=== PATIENT | female | born 1975 | race Caucasian/White ===

== ENCOUNTER 2018-05-04 07:16 | Observation (INO) | payer OTHER, SELFPAY ==
--- OUTSIDE RECORDS SUMMARY | 2018-05-04 07:19 | XMS REPORT | Clinical Summary ---
:1975 Author Organization [facility] Address [address] [place] [address] Care Team Providers Name Role Phone Higinio Meza MD Primary Care Provider Allergies Active Allergy Reactions Severity Noted Date Comments Zolpidem Other (See Comments) High 05/25/2016 INSOMNIA, ANXIETY Cephalosporins 03/16/2017 Codeine Other (See Comments) High 05/25/2016 CARDIAC ARREST Meperidine Other (See Comments) High 05/25/2016 CARDIAC ARREST Esomeprazole Magnesium Nausea And Vomiting High 10/09/2016 CARDIAC ARREST Meperidine Hcl GI Intolerance 03/09/2010 Morphine Other (See Comments) High 05/25/2016 CARDIAC ARREST EFFECT Esomeprazole Magnesium Other (See Comments) High 05/25/2016 CARDIAC ARREST Ondansetron Other (See Comments) 08/12/2017 Bradycardia and low heart rate Current Medications Prescription Sig. Disp. Refills Start End Status Date Date folic acid Take 1 mg by Active (FOLVITE) 1 MG mouth daily. tablet dextromethorphan-g Take 1 tablet by Active uaifenesin mouth 2 (two) (MUCINEX DM times a day. REGULAR) 30-600 mg tablet extended release 12 hr ergocalciferol Take 8,000 Units Active (DRISDOL) 8,000 by mouth daily. unit/mL drops methotrexate 25 INJ 1 ML ONCE A 0 Active mg/mL syringe WEEK 7 ergocalciferol Take 1 capsule 12 capsule 3 Active (VITAMIN D2) (50,000 Units 7 018 50,000 unit total) by mouth capsule once a week. lidocaine HCl 5 mL by mucous 100 mL 3 Active (lidocaine) 2 % membrane route 7 solution every 3 (three) hours. methotrexate PF 25 once a week. Active mg/mL chemo syringe celecoxib TK 1 C PO BID 3 Active (CeleBREX) 200 MG 7 capsule fluocinonide Apply topically 30 g 2 Active (LIDEX) 0.05 % 2 (two) times a 8 ointment day as needed (rash or itching). diazePAM (VALIUM) Take 1 tablet 30 tablet 5 Active 10 MG (10 mg total) by 8 018 tabletIndications: mouth nightly as Muscle spasm needed (stress, sleep, anxiety) for up to 180 days. tiZANidine 1/2 - 1 tab po 90 tablet 1 Active (ZANAFLEX) 4 MG nightly prn 8 tabletIndications: muscle spasms Muscle spasms of both lower extremities spironolactone Take 1 tablet 90 tablet 3 Active (ALDACTONE) 25 MG (25 mg total) by 8 tabletIndications: mouth daily. Fluid retention promethazine 50 mg q 8 hours 270 tablet 1 Active (PHENERGAN) 50 MG prn 8 tabletIndications: nausea/vomiting Non-intractable vomiting with nausea, unspecified vomiting type HYDROcodone-acetam Take 1 tablet by 120 tablet 0 Active inophen (NORCO) mouth every 6 8 10-325 mg per (six) hours as tabletIndications: needed for Scleroderma, Other moderate pain chronic pain, for up to 90 Generalized days. Max Daily abdominal pain Amount: 4 tablets furosemide (LASIX) Take 1 tablet 90 tablet 1 Active 20 mg (20 mg total) by 8 tabletIndications: mouth daily as Fluid retention needed (swelling). topiramate 1/2 tablet in 135 tablet 3 Active (TOPAMAX) 100 MG the morning and 8 tabletIndications: 1 tablet in the Intractable evening for chronic migraine headaches without aura and without status migrainosus hyoscyamine DISSOLVE 1 30 tablet 0 Active (LEVSIN) 0.125 mg TABLET(0.125 MG) 8 SL tablet UNDER THE TONGUE EVERY 4 HOURS NEEDED FOR CRAMPING OR DIARRHEA cholecalciferol, Take 1 capsule 12 capsule 3 Active vitamin D3, 50,000 (50,000 Units 8 019 unit capsule total) by mouth once a week. amphetamine-dextro TK ONE C PO QAM 0 Active amphetamine XR 8 (ADDERALL XR) 20 MG 24 hr capsule amLODIPine Take 1 tablet (5 90 tablet 1 Active (NORVASC) 5 mg mg total) by 8 019 tablet mouth daily. For blood pressure cyanocobalamin ADMINISTER 1 10 mL 0 Active 1,000 mcg/mL ML(1000 MCG) 8 injection UNDER THE SKIN EVERY 7 DAYS ULTRA COMFORT USE DIRECTED 30 each 0 Active INSULIN SYRINGE 1 ONCE WEEKLY 8 mL 28 gauge x 1/2" syringe amLODIPine TK 1 T PO ONCE D 1 Discontinued (NORVASC) 10 MG UTD 6 017 tablet tamsulosin TK 1 C PO D 3 Discontinued (FLOMAX) 0.4 mg 6 017 capsule,extended release 24hr topiramate Take 1 tablet 180 tablet 3 Discontinued (TOPAMAX) 100 MG (100 mg total) 6 017 tablet by mouth 2 (two) times a day. triamcinolone Apply topically 30 g 1 (KENALOG) 0.1 % 3 (three) times 6 017 ointment a day. Prn rash or itching sulfamethoxazole-t Take 1 tablet by Discontinued rimethoprim mouth 2 (two) 017 (BACTRIM DS) times a day. 800-160 mg per tablet insulin Use as directed 30 each 3 Discontinued syringe-needle with 6 018 U-100 (INSULIN methotrexate SYRINGE) 1 mL 28 once weekly gauge x 1/2" syringe ergocalciferol Take 1 capsule 4 capsule 11 (ERGOCALCIFEROL) (50,000 Units 6 017 50,000 unit total) by mouth capsule once a week. cyanocobalamin Inject 1 mL 10 mL 5 Discontinued 1,000 mcg/mL (1,000 mcg 6 018 injection total) under the skin every 7 days. HYDROcodone-acetam Take 1 tablet by 120 tablet 0 Discontinued inophen (NORCO) mouth every 6 7 017 10-325 mg per (six) hours as tabletIndications: needed for Scleroderma, Other moderate pain chronic pain, for up to 90 Generalized days. Max Daily abdominal pain Amount: 4 tablets buPROPion XL Take 1 tablet 30 tablet 1 Discontinued (WELLBUTRIN XL) (150 mg total) 7 017 150 MG 24 hr by mouth daily. tablet diazePAM (VALIUM) Take 1 tablet 30 tablet 5 Discontinued 10 MG tablet (10 mg total) by 7 017 mouth nightly as needed (stress, sleep, anxiety) for up to 180 days. promethazine Take 1 tablet 30 tablet 2 (PHENERGAN) 25 MG (25 mg total) by 7 017 tablet mouth every 8 (eight) hours as needed for nausea or vomiting for up to 30 days. FLUoxetine Take 1 capsule 90 capsule 3 Discontinued (PROzac) 40 MG (40 mg total) by 7 017 capsule mouth daily. furosemide (LASIX) Take 1 tablet 30 tablet 2 Discontinued 20 mg tablet (20 mg total) by 7 018 mouth daily as needed (swelling). buPROPion XL Take 1 tablet 90 tablet 1 Discontinued (WELLBUTRIN XL) (300 mg total) 7 017 300 MG 24 hr by mouth daily. tablet topiramate TAKE 1 180 tablet 0 Discontinued (TOPAMAX) 100 MG TABLET(100 MG) 7 018 tablet BY MOUTH TWICE DAILY spironolactone Take 1 tablet 30 tablet 0 Discontinued (ALDACTONE) 25 MG (25 mg total) by 7 017 tabletIndications: mouth daily as Fluid retention needed (fluid retention- take with lasix). HYDROcodone-acetam Take 1 tablet by 120 tablet 0 Discontinued inophen (NORCO) mouth every 6 7 017 10-325 mg per (six) hours as tabletIndications: needed for Scleroderma, Other moderate pain chronic pain, for up to 90 Generalized days. Max Daily abdominal pain Amount: 4 tablets HYDROcodone-acetam Take 1 tablet by 120 tablet 0 Discontinued inophen (NORCO) mouth every 6 7 017 10-325 mg per (six) hours as tabletIndications: needed for Scleroderma, Other moderate pain chronic pain, for up to 90 Generalized days. Max Daily abdominal pain Amount: 4 tablets diazePAM (VALIUM) Take 1 tablet 30 tablet 5 Discontinued 10 MG (10 mg total) by 7 018 tabletIndications: mouth nightly as Muscle spasm needed (stress, sleep, anxiety) for up to 180 days. amLODIPine Take 1 tablet (5 30 tablet 1 Discontinued (NORVASC) 5 mg mg total) by 7 017 tablet mouth daily. For blood pressure promethazine Take 1 tablet 30 tablet 2 (PHENERGAN) 25 MG (25 mg total) by 7 017 tablet mouth every 6 (six) hours as needed for nausea or vomiting for up to 30 days. spironolactone TAKE 1 TABLET BY 30 tablet 0 Discontinued (ALDACTONE) 25 MG MOUTH DAILY 7 017 tabletIndications: NEEDED(FLUID Fluid retention RETENTION-TAKE WITH LASIX) promethazine Take 1 tablet 30 tablet 1 Discontinued (PHENERGAN) 25 MG (25 mg total) by 7 018 tabletIndications: mouth every 6 Nausea vomiting (six) hours as and diarrhea needed for nausea or vomiting for up to 30 days. HYDROcodone-acetam Take 1 tablet by 120 tablet 0 Discontinued inophen (NORCO) mouth every 6 7 018 10-325 mg per (six) hours as tabletIndications: needed for Scleroderma, Other moderate pain chronic pain, for up to 90 Generalized days. Max Daily abdominal pain Amount: 4 tablets spironolactone TAKE 1 TABLET BY 30 tablet 0 Discontinued (ALDACTONE) 25 MG MOUTH DAILY 7 018 tabletIndications: NEEDED(FLUID Fluid retention RETENTION-TAKE WITH LASIX) amLODIPine TAKE 1 TABLET(5 30 tablet 0 Discontinued (NORVASC) 5 mg MG) BY MOUTH 7 018 tablet DAILY FOR BLOOD PRESSURE promethazine Insert 1 4 suppository 1 Discontinued (PHENERGAN) 25 MG suppository (25 7 017 suppository mg total) into the rectum every 6 (six) hours as needed for nausea or vomiting for up to 30 days. tiZANidine 1/2 - 1 tab po 20 tablet 1 Discontinued (ZANAFLEX) 4 MG nightly prn 7 018 tablet muscle spasms promethazine Take 1 tablet 90 tablet 1 (PHENERGAN) 25 MG (25 mg total) by 7 017 tabletIndications: mouth every 8 Intractable (eight) hours as vomiting with needed for nausea, nausea or unspecified vomiting for up vomiting type to 30 days. hyoscyamine Take 1 tablet 30 tablet 1 Discontinued (LEVSIN) 0.125 mg (0.125 mg total) 7 018 SL tablet by mouth every 4 (four) hours as needed for cramping or diarrhea for up to 30 days. promethazine 1 Discontinued (PHENERGAN) 25 MG 7 018 tablet amphetamine-dextro TK 1 C PO ONCE D 0 Discontinued amphetamine XR IN THE MORNING. 7 018 (ADDERALL XR) 20 MG 24 hr capsule predniSONE 4 tabs po daily 20 tablet 1 (DELTASONE) 10 mg x 2 days, 3 tabs 8 018 tablet po daily x 2 days, 2 tabs po daily x 2 days, 1 tab po daily x 2 days, then stop oseltamivir Take 1 capsule 10 capsule 0 (TAMIFLU) 75 MG (75 mg total) by 8 018 capsule mouth daily for 10 days. HYDROcodone-acetam Take 1 tablet by 120 tablet 0 Discontinued inophen (NORCO) mouth every 6 8 018 10-325 mg per (six) hours as tabletIndications: needed for Scleroderma, Other moderate pain chronic pain, for up to 90 Generalized days. Max Daily abdominal pain Amount: 4 tablets amphetamine-dextro TK 1 C PO ONCE D 0 amphetamine XR IN THE MORNING. 8 018 (ADDERALL XR) 20 MG 24 hr capsule spironolactone TAKE 1 TABLET BY 30 tablet 0 Discontinued (ALDACTONE) 25 MG MOUTH DAILY 8 018 tabletIndications: NEEDED(FLUID Fluid retention RETENTION-TAKE WITH LASIX) promethazine TAKE 1 TABLET(25 30 tablet 0 Discontinued (PHENERGAN) 25 MG MG) BY MOUTH 8 018 tabletIndications: EVERY 6 HOURS Nausea vomiting NEEDED FOR and diarrhea NAUSEA OR VOMITING betamethasone Discontinued dipropionate 8 018 (DIPROLENE) 0.05 % cream topiramate Start 25 mg 60 tablet 1 Discontinued (TOPAMAX) 25 MG daily x 1-2 8 018 tablet weeks, then increase to 50mg daily azithromycin Take 2 tablets 6 tablet 0 (ZITHROMAX) 250 MG the first day, 8 018 tabletIndications: then 1 tablet Cough daily for 4 days. hyoscyamine Take 1 tablet 180 tablet 1 (LEVSIN) 0.125 mg (0.125 mg total) 8 018 SL tablet by mouth every 6 (six) hours as needed for cramping or diarrhea for up to 30 days. betamethasone Apply topically 45 g 1 dipropionate 2 (two) times a 8 018 (DIPROLENE) 0.05 % day for 10 days. cream cyanocobalamin ADMINISTER 1 10 mL 0 Discontinued 1,000 mcg/mL ML(1000 MCG) 8 018 injection UNDER THE SKIN EVERY 7 DAYS amLODIPine TAKE 1 TABLET(5 90 tablet 1 Discontinued (NORVASC) 5 mg MG) BY MOUTH 8 018 tablet DAILY FOR BLOOD PRESSURE amLODIPine Take 1 tablet 90 tablet 1 Discontinued (NORVASC) 10 mg (10 mg total) by 8 018 tablet mouth daily. TAKE 1 TABLET(5 MG) BY MOUTH DAILY FOR BLOOD PRESSURE amoxicillin Take 2 capsules 40 capsule 0 (AMOXIL) 500 MG (1,000 mg total) 8 018 capsuleIndications by mouth 2 (two) : Dental abscess times a day for 10 days. For h. Pylori gastritis Active Problems Problem Noted Date Raynaud's disease 04/09/2018 Urticaria 11/24/2017 Fluid retention 05/15/2017 Status post total gastrectomy and Maggi-en-Y esophagojejunal anastomosis 2016 History of urinary retention 04/15/2017 Dizziness 04/15/2017 Generalized abdominal pain 01/19/2017 Epistaxis 01/19/2017 Vitamin D deficiency 11/13/2016 Insomnia 09/15/2016 Iron deficiency anemia 09/15/2016 S/P PICC central line placement 09/15/2016 B12 deficiency 09/15/2016 Malnutrition 09/15/2016 Overview: on TPN via PICC line initiated September 2016 Adjustment disorder with mixed anxiety and depressed mood 08/20/2016 ADD (attention deficit disorder) 08/20/2016 Bradycardia 08/20/2016 Bronchitis, acute 05/25/2016 Scleroderma 05/25/2016 Sinusitis 05/25/2016 Chronic pain 05/25/2016 Contact dermatitis 05/25/2016 Encounters Date Type Specialty Care Team Description 04/22/2018 Telephone Internal Medicine Higinio Meza MD 04/22/2018 Refill Internal Medicine Higinio Meza MD 04/08/2018 Office Visit Internal Higinio Luis Dental abscess ( Primary Dx); MD Tamir Attention deficit disorder (ADD) without hyperactivity; Generalized abdominal pain; Other iron deficiency anemia; Raynaud's disease without gangrene; Scleroderma 03/19/2018 Orders Only Internal Higinio Luis MD 03/19/2018 Orders Only Internal Higinio Luis MD 03/12/2018 Orders Only Internal Higinio Luis MD 03/09/2018 Office Visit Internal Higinio Luis Adjustment disorder with mixed anxiety and depressed mood (Primary Dx); MD Tamir Attention deficit disorder (ADD) without hyperactivity; Scleroderma; Other iron deficiency anemia 02/14/2018 Refill Internal Higinio Luis MD 02/09/2018 Office Visit Internal Medicine Higinio Meza Attention deficit disorder (ADD) without hyperactivity (Primary Dx); MD Tamir B12 deficiency; Chronic pain syndrome; History of urinary retention; Other iron deficiency anemia; Scleroderma; Vitamin D deficiency; Screening for lipoid disorders; Screening for diabetes mellitus; Abnormal blood chemistry; Fatigue, unspecified type; Long-term use of high-risk medication 01/26/2018 Orders Only Internal Medicine Higinio Meza Adjustment disorder with mixed anxiety and depressed mood (Primary Dx); MD Tamir Primary insomnia; Chronic pain syndrome 01/23/2018 Refill Internal Medicine Higinio Meza MD 01/20/2018 Orders Only Internal Medicine Gloria Muñoz, Intractable chronic migraine without aura and without status migrainosus; MA New daily persistent headache 01/10/2018 Office Visit Internal Medicine Higinio Meza Attention deficit disorder (ADD) without hyperactivity (Primary Dx); MD Tamir Other iron deficiency anemia; Scleroderma; Elevated blood pressure reading; Palpitations; Intractable chronic migraine without aura and without status migrainosus; New daily persistent headache; Lumbar radiculopathy; Paresthesia of both feet; Chronic urticaria 12/13/2017 Office Visit Internal Medicine Higinio Meza Urticaria (Primary Dx); MD Tamir Fluid retention; Scleroderma; Other chronic pain; Generalized abdominal pain; Muscle spasms of both lower extremities; Non-intractable vomiting with nausea, unspecified vomiting type; Cough; Encounter for removal of sutures; Attention deficit disorder (ADD) without hyperactivity; Chronic nonintractable headache, unspecified headache type 11/25/2017 Refill Internal Medicine Higinio Meza Nausea vomiting and MD Tamir diarrhea 11/24/2017 Orders Only Internal Medicine Higinio Meza Urticaria (Primary Dx) MD Tamir 11/24/2017 Orders Only Internal Medicine Higinio Meza Rash (Primary Dx) MD Tamir 11/21/2017 Refill Internal Medicine Higinio Meza Fluid retention MD Tamir 11/09/2017 Office Visit Internal Medicine Higinio Meza Exposure to the flu (Primary Dx); MD Tamir Scleroderma; Generalized abdominal pain; Nausea; Allergic reaction, initial encounter; Polyarthralgia; Other iron deficiency anemia; Muscle spasm; Other chronic pain 10/13/2017 Office Visit Internal Medicine Higinio Meza Attention deficit disorder (ADD) without hyperactivity (Primary Dx); MD Tamir Iron deficiency anemia due to chronic blood loss; Scleroderma 10/05/2017 Orders Only Internal Medicine Higinio Meza MD 09/13/2017 Office Visit Internal Medicine Higinio Meza Systemic sclerosis (Primary Dx); MD Tamir Intractable vomiting with nausea, unspecified vomiting type; Chronic pain syndrome; Attention deficit disorder (ADD) without hyperactivity 09/08/2017 Documentation Internal Medicine Higinio Meza MD 09/07/2017 Orders Only Internal Medicine Higinio Meza MD 08/14/2017 Orders Only Internal Medicine Higinio Meza MD 08/14/2017 Refill Internal Medicine Higinio Meza MD 08/12/2017 Office Visit Internal Medicine Higinio Meza Nausea vomiting and diarrhea (Primary Dx); MD Tamir Vitamin D deficiency; Vit B12 defic anemia d/t slctv vit B12 malabsorp w protein; Vitamin B12 deficiency; Scleroderma; Other chronic pain; Generalized abdominal pain 08/12/2017 Refill Internal Medicine Higinio Meza Fluid retention MD Tamir 07/13/2017 Office Visit Internal Medicine Higinio Meza Scleroderma ( Primary Dx); MD Tamir Other iron deficiency anemia; Weight gain; Attention deficit hyperactivity disorder (ADHD), predominantly inattentive type 07/13/2017 Refill Internal Medicine Higinio Meza Fluid retention MD Tamir 06/11/2017 Office Visit Internal Medicine Higinio Meza Muscle spasm ( Primary Dx); MD Tamir Scleroderma; Other chronic pain; Generalized abdominal pain 05/13/2017 Office Visit Internal Medicine Higinio Meza Scleroderma ( Primary Dx); MD Tamir Chronic pain syndrome; Adjustment disorder with mixed anxiety and depressed mood; Fluid retention; Other iron deficiency anemia; Other chronic pain; Generalized abdominal pain 05/13/2017 Refill Internal Medicine Higinio Meza MD 05/04/2017 Orders Only Internal Higinio Luis MD 05/03/2017 Orders Only Internal Medicine Higinio Meza Adjustment disorder with mixed anxiety and depressed mood (Primary Dx); MD Tamir ADD (attention deficit disorder) after 05/03/2017 Immunizations Name Dates Previously Given Next Due INFLUENZA QUAD 08/20/2016 Family History Medical History Relation Name Comments Scleroderma Mother Cervical cancer Sister Kidney cancer Sister Ovarian cancer Sister Relation Name Status Comments Father Alive Mother Alive Sister Alive Social History Tobacco Use Types Packs/Day Years Used Date Never Smoker Smokeless Tobacco: Never Used Alcohol Use Drinks/Week oz/Week Comments Yes 3X PER YEAR Sex Assigned at Date Recorded Not on file Last Filed Vital Signs Vital Sign Reading Time Taken Blood Pressure 96/70 04/08/2018 1:04 PM CDT Pulse 84 04/08/2018 1:04 PM CDT Temperature 36.7 C (98 F) 02/09/2018 1:45 PM CDT Respiratory Rate 20 04/08/2018 1:04 PM CDT Oxygen Saturation 98% 04/08/2018 1:04 PM CDT Inhaled Oxygen Concentration - - Weight 92.5 kg (204 lb) 04/08/2018 1:04 PM CDT Height 167.6 cm (5' 6") 04/08/2018 1:04 PM CDT Body Mass Index 32.93 04/08/2018 1:04 PM CDT Plan of Treatment Date Type Specialty Care Team Description 05/09/2018 Office Visit [place] [address] [place], [place] [id number] Health Maintenance Due Date Last Done Comments CERVICAL CANCER SCREENING 1996 INFLUENZA VACCINE 06/08/2018 08/20/2016 Procedures Procedure Name Priority Date/Time Associated Comments Diagnosis C-REACTIVE PROTEIN Routine 03/09/2018 2:04 Scleroderma Results for this PM CDT procedure are in the results section. SEDIMENTATION RATE Routine 03/09/2018 2:04 Scleroderma Results for this PM CDT procedure are in the results section. MAGNESIUM LEVEL Routine 03/09/2018 2:04 Abnormal blood Results for this PM CDT chemistry procedure are in Fatigue, the results unspecified type section. Long-term use of high-risk medication TOTAL IRON BINDING Routine 03/09/2018 2:04 Other iron Results for this CAPACITY PM CDT deficiency anemia procedure are in Abnormal blood the results chemistry section. Fatigue, unspecified type Long-term use of high-risk medication FERRITIN LEVEL Routine 03/09/2018 2:04 Other iron Results for this PM CDT deficiency anemia procedure are in Abnormal blood the results chemistry section. Fatigue, unspecified type Long-term use of high-risk medication VITAMIN D 25 HYDROXY Routine 03/09/2018 2:04 Vitamin D Results for this LEVEL PM CDT deficiency procedure are in Abnormal blood the results chemistry section. Fatigue, unspecified type Long-term use of high-risk medication VITAMIN B12 LEVEL Routine 03/09/2018 2:04 B12 deficiency Results for this PM CDT Abnormal blood procedure are in chemistry the results Fatigue, section. unspecified type Long-term use of high-risk medication THYROID STIMULATING Routine 03/09/2018 2:04 Abnormal blood Results for this HORMONE PM CDT chemistry procedure are in Fatigue, the results unspecified type section. Long-term use of high-risk medication LIPID PANEL Routine 03/09/2018 2:04 Screening for Results for this PM CDT lipoid disorders procedure are in Abnormal blood the results chemistry section. Fatigue, unspecified type Long-term use of high-risk medication HEMOGLOBIN A1C Routine 03/09/2018 2:04 Screening for Results for this PM CDT diabetes mellitus procedure are in Abnormal blood the results chemistry section. Fatigue, unspecified type Long-term use of high-risk medication COMPREHENSIVE Routine 03/09/2018 2:04 Abnormal blood Results for this METABOLIC PANEL PM CDT chemistry procedure are in Fatigue, the results unspecified type section. Long-term use of high-risk medication CBC WITH PLATELET AND Routine 03/09/2018 2:04 Other iron Results for this DIFFERENTIAL PM CDT deficiency anemia procedure are in Abnormal blood the results chemistry section. Fatigue, unspecified type Long-term use of high-risk medication AMB REFERRAL TO Routine 02/09/2018 12:00 HEMATOLOGY / ONCOLOGY AM CDT AMB REFERRAL TO Routine 02/09/2018 12:00 PSYCHOLOGY AM CDT AMB REFERRAL TO Routine 02/09/2018 12:00 CHIROPRACTIC AM CDT MRI BRAIN WO CONTRAST Routine 01/20/2018 3:50 Intractable chronic Results for this PM CDT migraine without procedure are in aura and without the results status migrainosus section. New daily persistent headache ECG 12-LEAD Routine 01/10/2018 1:56 Elevated blood Results for this PM CERTIFIED LOW VISION THERAPIST pressure reading procedure are in Palpitations the results section. POCT INFLUENZA A/B Routine 11/09/2017 1:54 Exposure to the flu Results for this PM CERTIFIED LOW VISION THERAPIST procedure are in the results section. VITAMIN D 25 HYDROXY Routine 08/12/2017 1:49 Results for this LEVEL PM CDT procedure are in the results section. VITAMIN B12 LEVEL Routine 08/12/2017 1:49 Results for this PM CDT procedure are in the results section. C-REACTIVE PROTEIN Routine 08/12/2017 1:49 Nausea vomiting and Results for this PM CDT diarrhea procedure are in the results section. SEDIMENTATION RATE Routine 08/12/2017 1:49 Nausea vomiting and Results for this PM CDT diarrhea procedure are in the results section. LIPASE LEVEL Routine 08/12/2017 1:49 Nausea vomiting and Results for this PM CDT diarrhea procedure are in the results section. AMYLASE LEVEL Routine 08/12/2017 1:49 Nausea vomiting and Results for this PM CDT diarrhea procedure are in the results section. GGT Routine 08/12/2017 1:49 Nausea vomiting and Results for this PM CDT diarrhea procedure are in the results section. COMPREHENSIVE Routine 08/12/2017 1:49 Nausea vomiting and Results for this METABOLIC PANEL PM CDT diarrhea procedure are in the results section. CBC WITH PLATELET AND Routine 08/12/2017 1:49 Nausea vomiting and Results for this DIFFERENTIAL PM CDT diarrhea procedure are in the results section. after 05/03/2017 Results Total iron binding capacity (03/09/2018 2:04 PM) Iron level 33 (L) 40 - 190 mcg/dL [facility] [place] Iron binding capacity 466 (H) 250 - 450 mcg/dL (calc) [facility] [place] Iron saturation 7 (L) 11 - 50 % (calc) [facility] [place] Specimen Blood Narrative Performed At PATIENT UNABLE TO VOID; ADVISED TO RETURN FOR COLLECTION. [facility] Resulting Agency Comment Performing Organization Information: Site ID: [email or web address] Name: [email or web address] Address: [address] [place] [id number] Director: Marcy Maher Performing Organization Address City/State/Zipcode Phone Number [facility] [address] [address] Vitamin D 25 hydroxy level (03/09/2018 2:04 PM)Only the most recent of2 resultswithin the time period is included. Vitamin D, 25-hydroxy 14 (L) 30 - 100 ng/mL [facility] Comment: [place] Vitamin D Status 25-OH Vitamin D: Deficiency:<20 ng/mL Insufficiency: 20 - 29 ng/mL Optimal: > or=30 ng/mL For 25-OH Vitamin D testing on patients on D2-supplementation and patients for whom quantitation of D2 and D3 fractions is required, the QuestAssureD(TM) 25-OH VIT D, (D2,D3), LC/MS/MS is recommended: order code 44889 (patients >2yrs). For more information on this test, go to: http://education.Keepsafe/faq/BKI105 (This link is being provided for informational/educational purposes only.) Specimen Blood Narrative Performed At PATIENT UNABLE TO VOID; ADVISED TO RETURN FOR COLLECTION. [facility] Resulting Agency Comment Performing Organization Information: Site ID: A Name: [email or web address] Address: [address] [place] [phone] Director: Marcy Maher Performing Organization Address City/State/Zipcode [place] [address] Sedimentation rate (03/09/2018 2:04 PM)Only the most recent of2 resultswithin the time period is included. Sedimentation rate 25 (H) < OR=20 mm/h [facility] [place] Specimen Blood Narrative Performed At PATIENT UNABLE TO VOID; ADVISED TO RETURN FOR COLLECTION. [facility] Comment Performing Organization Information: Site ID: A Name: [email or web address] Address: [address] [place] [phone] Director: Marcy Maher Performing Organization Address City/State/Zipcode Phone Number [facility] [address] [address] CBC with platelet and differential (03/09/2018 2:04 PM)Only the most recent of2 resultswithin the time period is included. WBC 7.3 3.8 - 10.8 Thousand/uL [facility] RBC 4.67 3.80 - 5.10 Million/uL [facility] [place] HGB 10.2 (L) 11.7 - 15.5 g/dL [facility] HCT 34.7 (L) 35.0 - 45.0 % [facility] MCV 74.3 (L) 80.0 - 100.0 fL [facility] MCH 21.8 (L) 27.0 - 33.0 pg [facility] MCHC 29.4 (L) 32.0 - 36.0 g/dL [facility] [place] RDW 15.8 (H) 11.0 - 15.0 % [facility] [place] Platelet count 313 140 - 400 Thousand/uL [facility] [place] MPV 10.6 7.5 - 12.5 fL [facility] [place] Neutrophils, absolute 4,774 1,500 - 7,800 cells/uL [facility] [place] Lymphocytes, absolute 1,555 850 - 3,900 cells/uL [facility] [place] Monocytes, absolute 548 200 - 950 cells/uL [facility] [place] Eosinophils, absolute 402 15 - 500 cells/uL [facility] [place] Basophils, absolute 22 0 - 200 cells/uL [facility] [place] Neutrophils 65.4 % [facility] Lymphocytes 21.3 % [facility] [place] Monocytes 7.5 % [facility] [place] Eosinophils 5.5 % [facility] [place] Basophils + RC 0.3 % [facility] [place] Specimen Blood Narrative Performed At PATIENT UNABLE TO VOID; ADVISED TO RETURN FOR COLLECTION. [facility] Result[facility] Comment Performing Organization Information: Site ID: [facility] Name: [email or web address] Address: [address] [place] [phone] Director: Marcy Maher Performing Organization Address City/[facility] Phone Number [facility] [place] [address] C-reactive protein (03/09/2018 2:04 PM)Only the most recent of2 resultswithin the time period is included. CRP 5.0 <8.0 mg/L [facility] [place] Specimen Blood Narrative Performed At PATIENT UNABLE TO VOID; ADVISED TO RETURN FOR COLLECTION. [facility] Comment Performing Organization Information: Site ID: [email or web address] Name: [email or web address] Address: [address] [place] [phone] Director: Marcy Maher Performing Organization Address [facility]/Zipcode Phone Number [facility] [address] [address] Thyroid stimulating hormone (03/09/2018 2:04 PM) TSH 3.23 mIU/L [facility] [place] Comment: Reference Range > or=20 Years0.40-4.50 Ranges First trimester0.26-2.66 Second trimester 0.55-2.73 Third trimester0.43-2.91 Specimen Blood Narrative Performed At PATIENT UNABLE TO VOID; ADVISED TO RETURN FOR COLLECTION. [facility] Comment Performing Organization Information: Site ID: [facility] Name: [email or web address] Address: [address] [place] [phone] Director: Marcy Maher Performing Organization Address City/[facility] Hospitalcode Phone Number CL[facility]I [facility] [address] [address] Magnesium level (03/09/2018 2:04 PM) Magnesium 2.1 1.5 - 2.5 mg/dL [facility] Specimen Blood Narrative Performed At PATIENT UNABLE TO VOID; ADVISED TO RETURN FOR COLLECTION. [facility] Comment Performing Organization Information: Site ID: [facility] Name: [email or web address] Address: [address] [place] [phone] Director: Marcy Maher Performing Organization Address [facility] Phone Number [facility] [address] [address] Hemoglobin A1c (03/09/2018 2:04 PM) Hemoglobin A1C 5.3 <5.7 % of total Hgb [facility] Comment: For the purpose of screening for the presence of diabetes: <5.7% Consistent with the absence of diabetes 5.7-6.4%Consistent with increased risk for diabetes (prediabetes) > or=6.5%Consistent with diabetes This assay result is consistent with a decreased risk of diabetes. Currently, no consensus exists regarding use of hemoglobin A1c for diagnosis of diabetes in children. According to [place] [employer] Association (ADA) guidelines, hemoglobin A1c <7.0% represents optimal control in non- diabetic patients. Different metrics may apply to specific patient populations. Standards of Medical Care in Diabetes(ADA). Specimen Blood Narrative Performed At PATIENT UNABLE TO VOID; ADVISED TO RETURN FOR COLLECTION. [facility] Result[facility] Comment Performing Organization Information: Site ID: [facility] Name: [email or web address] Address: [address] [place] [phone] Director: Marcy Maher Performing Organization Address [facility] Hospitalcode Phone Number CLARI [place] [address] [address] Ferritin level (03/09/2018 2:04 PM) Ferritin level 6 (L) 10 - 232 ng/mL [facility] Specimen Blood Narrative Performed At PATIENT UNABLE TO VOID; ADVISED TO RETURN FOR COLLECTION. [facility] Result[facility] Comment Performing Organization Information: Site ID: [email or web address] Name: [email or web address] Address: [address] [place] [address] Director: Marcy Maher Performing Organization Address [facility]code Phone Number [facility] [place] [address] Vitamin B12 level (03/09/2018 2:04 PM)Only the most recent of2 resultswithin the time period is included. Vitamin B12 430 200 - 1,100 pg/mL [facility] Specimen Blood Narrative Performed At PATIENT UNABLE TO VOID; ADVISED TO RETURN FOR COLLECTION. [facility] Result[facility] Comment Performing Organization Information: Site ID: EARL Name: [facility] Lab Address: [address] [place] [phone] Director: Marcy Maher Performing Organization Address [facility] Phone Number [facility] [place] [address] Lipid panel (03/09/2018 2:04 PM) Cholesterol, total 223 (H) <200 mg/dL [facility] HDL cholesterol 44 (L) >50 mg/dL [facility] Triglycerides 146 <150 mg/dL [facility] LDL cholesterol 151 (H) mg/dL (calc) [facility] calculated Comment: [place] Reference range: <100 Desirable range <100 mg/dL for primary prevention; <70 mg/dL for patients with CHD or diabetic patients with > or=2 CHD risk factors. LDL-C is now calculated using the Kade-Lorna calculation, which is a validated novel method providing better accuracy than the Friedewald equation in the estimation of LDL-C. Kade SS et al. BRANDI. 2013;310(19): 6058-9341 (http://education.Edutor/faq/RXV930) Cholesterol/HDL ratio 5.1 (H) <5.0 (calc) [facility] DIAGNOSTICS [place] Non-HDL cholesterol 179 (H) <130 mg/dL [facility] Comment: (calc) [place] For patients with diabetes plus 1 major ASCVD risk factor, treating to a non-HDL-C goal of <100 mg/dL (LDL-C of <70 mg/dL) is considered a therapeutic option. Specimen Blood Narrative Performed At PATIENT UNABLE TO VOID; ADVISED TO RETURN FOR COLLECTION. [facility] Resulting Agency Comment Performing Organization Information: Site ID: [email or web address] Name: [facility] Lab Address: [address] [place] [address] Director: Marcy Maher Performing Organization Address City/State/Zipcode Phone Number CLARI [facility] [address] [place] [phone] Comprehensive metabolic panel (03/09/2018 2:04 PM)Only the most recent of2 resultswithin the time period is included. Glucose 97 65 - 99 mg/dL [facility] Comment: [place] Fasting reference interval BUN, whole blood 12 7 - 25 mg/dL [facility] Creatinine 0.68 0.50 - 1.10 mg/dL [facility] EGFR Non-Afr. Haitian 108 > OR=60 [facility] mL/min/1.73m2 [place] EGFR 125 > OR=60 [facility] DIAGNOSTICS mL/min/1.73m2 [place] BUN/creatinine ratio NOT APPLICABLE 6 - 22 (calc) [facility] Sodium 140 135 - 146 mmol/L [facility] Potassium 4.0 3.5 - 5.3 mmol/L [facility] [place] Chloride 112 (H) 98 - 110 mmol/L [facility] [place] CO2 21 20 - 31 mmol/L [facility] [place] Calcium 9.0 8.6 - 10.2 mg/dL [facility] [place] Protein 7.4 6.1 - 8.1 g/dL [facility] Albumin, S 4.1 3.6 - 5.1 g/dL [facility] Globulin, total 3.3 1.9 - 3.7 g/dL [facility] (calc) [place] Albumin/globulin ratio 1.2 1.0 - 2.5 (calc) [facility] [place] Total bilirubin 0.3 0.2 - 1.2 mg/dL [facility] [place] Alkaline phosphatase 201 (H) 33 - 115 U/L [facility] [place] AST 23 10 - 30 U/L [facility] [place] ALT 50 (H) 6 - 29 U/L [facility] [place] Specimen Blood Narrative Performed At PATIENT UNABLE TO VOID; ADVISED TO RETURN FOR COLLECTION. [facility] Result[facility] Comment Performing Organization Information: Site ID: [email or web address] Name: [email or web address] Address: [address] [place] [phone] Director: Marcy Maher Performing Organization Address [facility]code Phone Number [facility] [address] [address] Ambulatory referral to Psychology (02/09/2018) Narrative Performed At Ambulatory referral to Hematology / Oncology (02/09/2018) Narrative Performed At Ambulatory referral to Chiropractic (02/09/2018) Narrative Performed At MRI Brain Wo Contrast (01/20/2018 3:50 PM) Narrative Performed At Performing Organization Address [facility] Phone Number [facility] [address] [place] [address] ECG 12 lead (01/10/2018 1:56 PM) Ventricular rate 67 [facility] Atrial rate 67 [facility] RI interval 172 [facility] QRSD interval 80 [facility] QT interval 426 [facility] QTC interval 450 [facility] P axis 1 29 [facility] QRS axis 1 12 [facility] T wave axis 9 [facility] EKG impression Normal sinus rhythm-Normal ECG-No previous [facility] MUSE ECGs available- Performing Organization Address [facility] Phone Number [facility] MUSE [address] [place] [address] POC Influenza A/B (11/09/2017 1:54 PM) Rapid Influenza A Ag Neg Rapid Influenza B Ag Neg Specimen Nasopharyngeal Lipase level (08/12/2017 1:49 PM) Lipase 31 7 - 60 U/L [facility] [place] Specimen Blood Resulting Agency Comment Performing Organization Information: Site ID: [email or web address] Name: [email or web address] Address: [address] [place] [phone] Director: Marcy Maher MD Performing Organization Address [facility]code Phone Number [facility] [address] [address] GGT (08/12/2017 1:49 PM) GGT 58 (H) 3 - 55 U/L [facility] [place] Specimen Blood Resulting Agency Comment Performing Organization Information: Site ID: RGA Name: [email or web address] Address: [address] [place] [phone] Director: Marcy Maher MD Performing Organization Address [facility] Phone Number [facility] [place] [address] [place] [address] Amylase level (08/12/2017 1:49 PM) Amylase 28 21 - 101 U/L [facility]NOST[facility] [place] Specimen Blood Resulting Agency Comment Performing Organization Information: Site ID: RGA Name: [email or web address] Address: [address] [place] [phone] Director: Marcy Maher MD Performing Organization Address [facility] Phone Number [facility] [place] [address] [place] [phone] after 05/03/2017 Insurance Payer Benefit Plan / Group Subscriber ID Type Phone Address [employer] A[employer] PPO OPEN CHOICE xxxxxxxx PPO Work: [id number] [phone] [place], [place] [address] Home: [phone]
--- OUTSIDE RECORDS SUMMARY | 2018-05-04 07:21 | XMS REPORT | Continuity of Care Document ---
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 Active 02/16/20 Condition 05/09/2015 [facility] ASCITES Active 01/11/20 Condition 05/09/2015 [facility] INSOMNIA Active 01/11/20 Condition 05/09/2015 [facility] DYSFUNCTIONAL Active 12/10/19 Condition 05/09/2015 UTERINE BLEEDING [facility] SHORTNESS OF Active 12/10/19 Condition 05/09/2015 BREATH [facility] VENTRAL HERNIA, Active 10/03/20 Condition 05/09/2015 INCISIONAL [facility] TRANSAMINASES, Active 07/17/20 Condition 05/09/2015 SERUM, ELEVATED [facility] CHEST PAIN, Active 07/17/20 Condition 05/09/2015 ATYPICAL [facility] SHOULDER PAIN, Active 07/17/20 Condition 05/09/2015 RIGHT [facility] HYPERTENSION, Active 07/17/20 Condition 05/09/2015 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 Active 03/24/20 Condition 05/09/2015 [facility] ESOPHAGEAL Active 03/24/20 Condition 05/09/2015 MOTILITY DISORDER [facility] ANEMIA, IRON Active 03/24/20 Condition 05/09/2015 DEFICIENCY [facility] INCOMPLETE BLADDER Active 03/24/20 Condition 05/09/2015 EMPTYING [facility] SCREENING, Inactive 03/24/20 Condition 05/09/2015 DIABETES MELLITUS [facility] SCREENING FOR Inactive 03/24/20 Condition 05/09/2015 LIPOID DISORDERS [facility] NEPHROLITHIASIS Active 03/24/20 Condition 05/09/2015 [facility] FATIGUE Inactive 03/24/20 Condition 05/09/2015 [facility] COUGH Active 03/24/20 Condition 05/09/2015 [facility] SEIZURE DISORDER Active 03/24/20 Condition 05/09/2015 [facility] Medications Medication Details Route Status Patient Ordering Order Source Instructions Provider Date LIDOCAINE VISCOUS 2 5ml swish and Active % SOLN swallow every 2014 Medical 6-8 hours as Group needed for sore throat AUGMENTIN 875-125 MG 1 tablet No TABS twice daily Longer 2014 Medical for 10 days Active Group MEDROL (CHAD) 4 MG Take as Active TABS directed 2014 [facility] Group DIFLUCAN 150 MG TABS 1 tablet x 1 No dose now, Longer 2014 Medical repeat dose Active Group in 3 days MUPIROCIN 2 % OINT apply to Active affected area 2014 Medical three times Group daily as needed ZOFRAN 4 MG TABS 1-2 tablets No every 8 hours Longer 2014 Medical as needed for Active Group nausea/vomiti ng POTASSIUM CHLORIDE 1 tablet Active BANDAR ER 20 MEQ daily with 2014 Medical CR-TABS lasix Group MEDROL (CHAD) 4 MG Take as No TABS directed Longer 2014 Medical Active Group TOPAMAX 100 MG TABS 1 tab po Active daily 2014 [facility] Group POTASSIUM CHLORIDE 1 tablet Active BANDAR ER 20 MEQ daily with 2014 Medical CR-TABS lasix Group TOPAMAX 50 MG TABS 1/2 tab daily Active x 1 week, 2014 Medical then increase Group 1 tab daily POTASSIUM CHLORIDE 1 tablet Active BANDAR ER 20 MEQ daily with 2014 Medical CR-TABS lasix Group FUROSEMIDE 20 MG 1 tablet Active TABS daily prn 2014 Medical abdominal or Group leg swelling FUROSEMIDE 20 MG 1 tablet Active TABS daily prn 2014 Medical abdominal or Group leg swelling FUROSEMIDE 20 MG 1 tablet Active TABS daily prn 2014 Medical abdominal or Group leg swelling SERTRALINE HCL 100 1 tablet Active MG TABS daily for 2015 Medical mood Group SERTRALINE HCL 50 MG 1 tab daily Active TABS for mood 2014 Medical Group SERTRALINE HCL 50 MG 1 tab daily Active TABS for mood 2014 Medical Group VALIUM 5 MG TABS 1 tablet po Active nightly as 2015 Medical needed for Group sleep or muscle relaxers PREDNISONE 20 MG 2 tablets No TABS daily x 3 Longer 2014 Medical days, then 1 Active Group tablets daily X 3 days, then 1/2 tablet daily x 8 days, then stop and take 1/2 tab daily only as directed PREDNISONE 20 MG 2 tablets No TABS daily x 3 Longer 2014 Medical days, then 1 Active Group tablets daily X 3 days, then 1/2 tablet daily x 8 days, then stop and take 1/2 tab daily only as directed PREDNISONE 20 MG 2 tablets No TABS daily x 3 Longer 2014 Medical days, then 1 Active Group tablets daily X 3 days, then 1/2 tablet daily x 8 days, then stop and take 1/2 tab daily only as directed FUROSEMIDE 20 MG 1 tablet No TABS daily prn Longer 2014 Medical swelliing Active Group FUROSEMIDE 20 MG 1 tablet No TABS daily prn Longer 2014 Medical swelliing Active Group FUROSEMIDE 20 MG 1 tablet No TABS daily prn Longer 2014 Medical swelliing Active Group ESTAZOLAM 2 MG TABS 1/2 -1 tab No nightly prn Longer 2014 Medical insomnia Active Group TAMIFLU 75 MG CAPS 1 capsule No daily x 10 Longer 2014 Medical days for flu Active Group prophylaxis TAMIFLU 75 MG CAPS 1 capsule No daily x 10 Longer 2014 Medical days for flu Active Group prophylaxis PROMETHAZINE HCL 25 1 tablet No MG TABS every 8 hours Longer 2014 Medical as needed for Active Group nausea/vomiti ng CITALOPRAM 1 tablet No HYDROBROMIDE 20 MG daily for Longer 2014 Medical TABS mood Active Group LUNESTA 3 MG TABS 1 tablet at No bedtime as Longer 2014 Medical needed for Active Group insomnia PROMETHAZINE HCL 25 1 tablet No MG TABS every 8 hours Longer 2014 Medical as needed for Active Group nausea/vomiti ng LUNESTA 3 MG TABS 1 tablet at No bedtime as Longer 2014 Medical needed for Active Group insomnia CITALOPRAM 1 tablet Active HYDROBROMIDE 10 MG daily 2015 Medical TABS Group PROMETHAZINE HCL 25 1 tablet No MG TABS every 8 hours Longer 2014 Medical as needed for Active Group nausea/vomiti ng PREDNISONE 10 MG 1 tab daily Active TABS 2013 Medical Group LOSARTAN POTASSIUM 1 tab daily No 50 MG TABS Longer 2013 Medical Active Group HYDROCODONE-ACETAMIN 1 tablet Active OPHEN 10-325 MG TABS three times a 2013 Medical day as needed Group for pain PLAQUENIL 200 MG No TABS Longer 2013 Medical Active Group HYDROXYCHLOROQUINE 1 tab twice No SULFATE 200 MG TABS daily Longer 2013 [facility] Active Group LOSARTAN POTASSIUM 1 tab daily No 50 MG TABS Longer 2013 [facility] Active Group HYDROCODONE-ACETAMIN 1 tablet Active OPHEN 10-325 MG TABS three times a 2013 Medical day as needed Group for pain PREDNISONE 10 MG 1 tab daily No TABS Longer 2013 Medical Active Group HYDROXYCHLOROQUINE 1 tab twice No SULFATE 200 MG TABS daily Longer 2013 [facility] Active Group PLAQUENIL 200 MG No TABS Longer 2013 Medical Active Group HYDROXYCHLOROQUINE 1 tab twice No SULFATE 200 MG TABS daily Longer 2013 [facility] Active Group PREDNISONE 10 MG 1 tab daily No TABS Longer 2013 [facility] Active Group HYDROCODONE-ACETAMIN 1 tablet Active OPHEN 10-325 MG TABS three times a 2013 Medical day as needed Group for pain HYDROXYCHLOROQUINE 1 tab twice No SULFATE 200 MG TABS daily Longer 2013 [facility] Active Group HYDROCODONE-ACETAMIN 1 tablet Active OPHEN 10-325 MG TABS three times a 2013 Medical day as needed Group for pain PLAQUENIL 200 MG No TABS Longer 2014 Medical Active Group PREDNISONE 10 MG 1 tab daily No TABS Longer 2014 Medical Active Group CIPROFLOXACIN HCL 1 tablet No 500 MG TABS twice daily Longer 2014 Medical for urinary Active Group infection x 3 days CIPROFLOXACIN HCL 1 tablet No 500 MG TABS twice daily Longer 2013 Medical for urinary Active Group infection x 3 days CIPROFLOXACIN HCL 1 tablet No 500 MG TABS twice daily Longer 2013 Medical for urinary Active Group infection x 3 days NORVASC 5 MG TABS 1 tablet No daily for Longer 2013 Medical blood Active Group pressure, increase to 2 tabs daily if bp > 140/90 PREDNISONE 10 MG 4 tablets Active TABS daily x 1 2013 day, then 3 Group tablets daily x 1 day, then 2 tablets daily x 1 day, then 1 tablet daily thereafter PREDNISONE 10 MG 4 tablets No TABS daily x 1 Longer 2013 day, then 3 Active Group tablets daily x 1 day, then 2 tablets daily x 1 day, then 1 tablet daily thereafter PREDNISONE 10 MG 4 tablets No TABS daily x 1 Longer 2013 day, then 3 Active Group tablets daily x 1 day, then 2 tablets daily x 1 day, then 1 tablet daily thereafter PREDNISONE 10 MG 4 tablets No TABS daily x 1 Longer 2013 day, then 3 Active Group tablets daily x 1 day, then 2 tablets daily x 1 day, then 1 tablet daily thereafter NORVASC 5 MG TABS 1 tablet No daily for Longer 2013 Medical blood Active Group pressure, increase to 2 tabs daily if bp > 140/90 PREDNISONE 10 MG 4 tablets No TABS daily x 1 Longer 2013 day, then 3 Active Group tablets daily x 1 day, then 2 tablets daily x 1 day, then 1 tablet daily thereafter ZOFRAN ODT 4 MG TBDP 1-2 tablets No under your Longer 2013 Medical tongue q8 Active Group hours as needed for severe nausea RANITIDINE HCL 150 1 tablet Active MH MG TABS twice daily 2013 Medical for stomach Group RANITIDINE HCL 150 1 tablet No MH MG TABS twice daily Longer 2013 Medical for stomach Active Group RANITIDINE HCL 150 1 tablet No MH MG TABS twice daily Longer 2013 Medical for stomach Active Group RANITIDINE HCL 150 1 tablet No MH MG TABS twice daily Longer 2013 Medical for stomach Active Group RANITIDINE HCL 150 1 tablet No MH MG TABS twice daily Longer 2013 Medical for stomach Active Group VITAMIN D Take 1 Active MH (ERGOCALCIFEROL) capsule by 2013 Medical 89384 UNIT CAPS mouth every Group week for 12 weeks VITAMIN D Take 1 No 04/04/ MH (ERGOCALCIFEROL) capsule by Longer 2013 Medical 51624 UNIT CAPS mouth every Active Group week for 12 weeks VITAMIN D Take 1 No 04/04/ MH (ERGOCALCIFEROL) capsule by Longer 2013 Medical 32230 UNIT CAPS mouth every Active Group week for 12 weeks PANTOPRAZOLE SODIUM 40 mg po Active 40 MG TBEC daily 2013 Medical Group TOPAMAX 100 MG TABS 1 tab po bid No for seizures Longer 2013 Medical Active Group PROMETHAZINE HCL 25 1 tablet once No MG TABS or twice Longer 2013 Medical daily as Active Group needed for nausea/vomiti ng AZITHROMYCIN 250 MG 2 tablets No TABS daily for 1 Longer 2013 Medical day, then 1 Active Group tablet daily for 4 days PANTOPRAZOLE SODIUM 40 mg po No 40 MG TBEC daily Longer 2013 Medical Active Group PANTOPRAZOLE SODIUM 40 mg po No 40 MG TBEC daily Longer 2013 Medical Active Group PROMETHAZINE HCL 25 1 tablet once No MG TABS or twice Longer 2013 Medical daily as Active Group needed for nausea/vomiti ng PROMETHAZINE HCL 25 1 tablet once No MG TABS or twice Longer 2013 Medical daily as Active Group needed for nausea/vomiti ng PROMETHAZINE HCL 25 1 tablet once No MG TABS or twice Longer 2013 Medical daily as Active Group needed for nausea/vomiti ng Allergies, Adverse Reactions, Alerts Substance Category Reaction Severity Reaction Status Date Comments Source type Reported CODEINE Drug CODEINE allergy [facility] MORPHINE Drug MORPHINE allergy 4 [facility] NEXIUM Drug NEXIUM MH allergy 4 [facility] DEMEROL Drug DEMEROL [facility] allergy 4 [facility] CEPHALOSPORIN Drug CEPHALOSPORI S allergy NS 4 [facility] AMBIEN Drug AMBIEN allergy 5 [facility] Immunizations Immunization Date Given Site Status Last Updated Comments Source Results Order Name Results Value Reference Date Interpretation Comments Source Range Chemistry SODIUM 140 MEQ/L 135 - 145 05/09 [facility] mmol/L /2014 [facility] Chemistry POTASSIUM 3.7 MEQ/L 3.5 - 5.1 05/09 mmol/L [facility] Chemistry CREATININE 0.8 mg/dL 0.5 - 1.4 05/09 [facility] Chemistry BUN 7 mg/dL 7 - 22 05/09 [facility] Chemistry BUN/CREAT 9 6 - 25 05/09 [facility] Chemistry ALBUMIN 3.7 g/dL 3.5 - 5.0 05/09 [facility] Chemistry CALCIUM 8.7 mg/dL 8.5 - 10.5 05/09 [facility] Chemistry SGPT (ALT) 63 U/L 0 - 65 05/09 [facility] Chemistry SGOT (AST) 32 U/L 0 - 37 05/09 [facility] Chemistry ALK PHOS 180 U/L 39 - 136 05/09 [facility] Group Hematology HGB 13.9 g/dL 12.0 - 05/09 16.0 [facility] Hematology HCT 42.6 % 36.0 - 05/09 48.0 [facility] Group Hematology PLATELETS 227 K/CMM 133 - 450 05/09 [facility] Chemistry PO4 3.1 mg/dL 2.5 - 4.5 02/15 [facility] Group Chemistry CPK 86 U/L 12 - 191 02/15 [facility] Chemistry MAGNESIUM 2.0 mg/dL 1.8 - 2.4 02/15 [facility] Chemistry SODIUM 135 MEQ/L 135 - 145 02/15 mmol/L [facility] Chemistry POTASSIUM 3.8 MEQ/L 3.5 - 5.1 02/15 mmol/L [facility] Chemistry CREATININE 0.8 mg/dL 0.5 - 1.4 02/15 [facility] Chemistry BUN 10 mg/dL 7 - 22 02/15 [facility] Chemistry BUN/CREAT 12 6 - 25 02/15 [facility] Chemistry ALBUMIN 4.0 g/dL 3.5 - 5.0 02/15 [facility] Chemistry CALCIUM 9.1 mg/dL 8.5 - 10.5 02/15 [facility] Chemistry SGPT (ALT) 95 U/L 0 - 65 02/15 [facility] Chemistry SGOT (AST) 66 U/L 0 - 37 02/15 [facility] Chemistry ALK PHOS 230 U/L 39 - 136 02/15 [facility] Chemistry PO4 3.1 mg/dL 2.5 - 4.5 02/15 [facility] Chemistry CPK 86 U/L 12 - 191 02/15 [facility] Chemistry MAGNESIUM 2.0 mg/dL 1.8 - 2.4 02/15 [facility] Hematology HGB 15.5 g/dL 12.0 - 02/15 16.0 [facility] Hematology HCT 46.2 % 36.0 - 02/15 48.0 [facility] Hematology PLATELETS 220 K/CMM 133 - 450 02/15 [facility] Hematology ESR 6 mm/hr 0 - 20 02/15 [facility] Chemistry TESTO, FREE 0.2 pg/mL 0.0 - 2.2 12/23 [facility] Chemistry TESTO, FREE 0.2 pg/mL 0.0 - 2.2 12/23 [facility] Chemistry TESTO, FREE 0.2 pg/mL 0.0 - 2.2 12/23 [facility] Chemistry TESTO, FREE 0.2 pg/mL 0.0 - 2.2 12/23 [facility] Chemistry TESTO, FREE 0.2 pg/mL 0.0 - 2.2 12/23 [facility] Chemistry TESTO, FREE 0.2 pg/mL 0.0 - 2.2 12/23 [facility] Chemistry GGT 35 U/L 0 - 60 12/21 [facility] Chemistry GGT 35 U/L 0 - 60 12/21 [facility] Chemistry GGT 35 U/L 0 - 60 12/21 [facility] Chemistry GGT 35 U/L 0 - 60 12/21 [facility] Chemistry GGT 35 U/L 0 - 60 12/21 [facility] Chemistry GGT 35 U/L 0 - 60 12/21 [facility] Chemistry TESTO, TOTAL <3 ng/dL 8 - 48 12/21 ng/dL /2014 [facility] Chemistry TESTO, TOTAL <3 ng/dL 8 - 48 12/21 ng/dL [facility] Chemistry TESTO, TOTAL <3 ng/dL 8 - 12/21 ng/dL /2015 [facility] Chemistry TESTO, TOTAL <3 ng/dL 8 - 48 12/21 ng/dL [facility] Chemistry TESTO, TOTAL <3 ng/dL 8 - 12/21 ng/dL [facility] Chemistry TESTO, TOTAL <3 ng/dL 8 - 12/21 ng/dL [facility] Chemistry ALK PHOS 164 U/L 39 - 117 12/21 [facility] Chemistry ALK PHOS 164 U/L 39 - 117 12/21 [facility] Chemistry ALK PHOS 164 U/L 39 - 117 12/21 [facility] Chemistry ALK PHOS 164 U/L 39 - 117 12/21 [facility] Chemistry ALK PHOS 164 U/L 39 - 117 12/21 [facility] Chemistry ALK PHOS 164 U/L 39 - 117 12/21 [facility] Chemistry ALBUMIN 3.9 g/dL 3.5 - 5.5 12/21 [facility] Chemistry SGOT (AST) 61 U/L 0 - 40 12/21 [facility] Chemistry SGPT (ALT) 50 U/L 0 - 32 12/21 [facility] Chemistry ALBUMIN 3.9 g/dL 3.5 - 5.5 12/21 [facility] Chemistry SGOT (AST) 61 U/L 0 - 40 12/21 [facility] Chemistry SGPT (ALT) 50 U/L 0 - 32 12/21 [facility] Chemistry ALBUMIN 3.9 g/dL 3.5 - 5.5 12/21 [facility] Chemistry SGOT (AST) 61 U/L 0 - 40 12/21 [facility] Chemistry SGPT (ALT) 50 U/L 0 - 32 12/21 [facility] Chemistry ALBUMIN 3.9 g/dL 3.5 - 5.5 12/21 [facility] Chemistry SGOT (AST) 61 U/L 0 - 40 12/21 [facility] Chemistry SGPT (ALT) 50 U/L 0 - 32 12/21 [facility] Chemistry ALBUMIN 3.9 g/dL 3.5 - 5.5 12/21 [facility] Chemistry SGOT (AST) 61 U/L 0 - 40 12/21 [facility] Chemistry ALBUMIN 3.9 g/dL 3.5 - 5.5 12/21 /2014 [facility] Chemistry SGOT (AST) 61 U/L 0 - 40 12/21 /2014 [facility] Chemistry BUN 5 mg/dL 6 - 12/21 /2014 [facility] Chemistry CREATININE 0.58 mg/dL 0.57 - 12/21 1. [facility] Chemistry BUN/CREAT 9 - 12/21 [facility] Chemistry CALCIUM 8.8 mg/dL 8.7 - 10.2 12/21 [facility] Chemistry BUN 5 mg/dL 6 - 12/21 [facility] Chemistry CREATININE 0.58 mg/dL 0.57 - 12/21 1. [facility] Chemistry BUN/CREAT 9 - 12/21 [facility] Chemistry CALCIUM 8.8 mg/dL 8.7 - 10.2 12/21 [facility] Chemistry BUN 5 mg/dL 6 - 12/21 [facility] Chemistry CREATININE 0.58 mg/dL 0.57 - 12/21 1. [facility] Chemistry BUN/CREAT 9 - 12/21 /2014 [facility] Chemistry CREATININE 0.58 mg/dL 0.57 - 12/21 1. [facility] Chemistry BUN 5 mg/dL - 12/21 [facility] Chemistry CREATININE 0.58 mg/dL 0.57 - 12/21 1. [facility] Chemistry BUN/CREAT 9 - 12/21 [facility] Chemistry CREATININE 0.58 mg/dL 0.57 - 12/21 1. [facility] Chemistry BUN 5 mg/dL - 12/21 /2014 [facility] Chemistry BUN/CREAT 9 12/21 [facility] Chemistry BUN 5 mg/dL 6 - 12/21 [facility] Chemistry BUN/CREAT 9 12/21 [facility] Chemistry SODIUM 139 mmol/L 134 - 144 12/21 [facility] Chemistry POTASSIUM 4.0 mmol/L 3.5 - 5.2 12/21 [facility] Chemistry SODIUM 139 mmol/L 134 - 144 12/21 /2014 [facility] Chemistry POTASSIUM 4.0 mmol/L 3.5 - 5.2 12/21 [facility] Chemistry SODIUM 139 mmol/L 134 - 144 12/21 [facility] Chemistry POTASSIUM 4.0 mmol/L 3.5 - 5.2 12/21 [facility] Chemistry SODIUM 139 mmol/L 134 - 144 12/21 [facility] Chemistry POTASSIUM 4.0 mmol/L 3.5 - 5.2 12/21 [facility] Chemistry SODIUM 139 mmol/L 134 - 144 12/21 [facility] Chemistry POTASSIUM 4.0 mmol/L 3.5 - 5.2 12/21 [facility] Chemistry SODIUM 139 mmol/L 134 - 144 12/21 [facility] Chemistry POTASSIUM 4.0 mmol/L 3.5 - 5.2 12/21 [facility] Chemistry SODIUM 140 MEQ/L 135 - 145 07/17 mmol/L [facility] Chemistry POTASSIUM 3.8 MEQ/L 3.5 - 5.1 07/17 mmol/L [facility] Chemistry CREATININE 0.6 mg/dL 0.5 - 1.4 07/17 [facility] Chemistry BUN 7 mg/dL - 07/17 [facility] Chemistry SODIUM 140 MEQ/L 135 - 145 07/17 mmol/L [facility] Chemistry POTASSIUM 3.8 MEQ/L 3.5 - 5.1 07/17 mmol/L [facility] Chemistry CREATININE 0.6 mg/dL 0.5 - 1.4 07/17 [facility] Chemistry SODIUM 140 MEQ/L 135 - 145 07/17 mmol/L [facility] Chemistry POTASSIUM 3.8 MEQ/L 3.5 - 5.1 07/17 mmol/L [facility] Chemistry CREATININE 0.6 mg/dL 0.5 - 1.4 07/17 [facility] Chemistry SODIUM 140 MEQ/L 135 - 145 07/17 mmol/L [facility] Chemistry POTASSIUM 3.8 MEQ/L 3.5 - 5.1 07/17 mmol/L [facility] Chemistry CREATININE 0.6 mg/dL 0.5 - 1.4 07/17 [facility] Chemistry BUN 7 mg/dL 7 - 07/17 [facility] Chemistry BUN/CREAT 12 6 - 25 07/17 [facility] Chemistry ALBUMIN 4.0 g/dL 3.5 - 5.0 07/17 [facility] Chemistry CALCIUM 9.0 mg/dL 8.5 - 10.5 07/17 [facility] Chemistry SGPT (ALT) 85 U/L 0 - 65 07/17 [facility] Chemistry SGOT (AST) 46 U/L 0 - 37 07/17 [facility] Chemistry ALK PHOS 157 U/L 39 - 136 07/17 [facility] Chemistry BUN 7 mg/dL 7 - 07/17 [facility] Chemistry BUN/CREAT 12 6 - 25 07/17 [facility] Chemistry ALBUMIN 4.0 g/dL 3.5 - 5.0 07/17 [facility] Chemistry CALCIUM 9.0 mg/dL 8.5 - 10.5 07/17 [facility] Chemistry SGPT (ALT) 85 U/L 0 - 65 07/17 [facility] Chemistry SGOT (AST) 46 U/L 0 - 37 07/17 [facility] Chemistry ALK PHOS 157 U/L 39 - 136 07/17 [facility] Chemistry SODIUM 140 MEQ/L 135 - 145 07/17 mmol/L [facility] Chemistry POTASSIUM 3.8 MEQ/L 3.5 - 5.1 07/17 mmol/L [facility] Chemistry CREATININE 0.6 mg/dL 0.5 - 1.4 07/17 [facility] Chemistry BUN 7 mg/dL 7 - 07/17 [facility] Chemistry BUN/CREAT 12 6 - 07/17 [facility] Chemistry ALBUMIN 4.0 g/dL 3.5 - 5.0 07/17 [facility] Chemistry CALCIUM 9.0 mg/dL 8.5 - 10.5 07/17 [facility] Chemistry SGPT (ALT) 85 U/L 0 - 65 07/17 [facility] Chemistry SGOT (AST) 46 U/L 0 - 37 07/17 [facility] Chemistry ALK PHOS 157 U/L 39 - 136 07/17 [facility] Chemistry SODIUM 140 MEQ/L 135 - 145 07/17 mmol/L [facility] Chemistry POTASSIUM 3.8 MEQ/L 3.5 - 5.1 07/17 mmol/L [facility] Chemistry CREATININE 0.6 mg/dL 0.5 - 1.4 07/17 [facility] Chemistry BUN 7 mg/dL 7 - 22 07/17 [facility] Chemistry SODIUM 140 MEQ/L 135 - 145 07/17 mmol/L [facility] Chemistry POTASSIUM 3.8 MEQ/L 3.5 - 5.1 07/17 mmol/L [facility] Chemistry CREATININE 0.6 mg/dL 0.5 - 1.4 07/17 [facility] Group Hematology HGB 13.6 g/dL 12.0 - 07/17 16. [facility] Hematology HCT 41.8 % 36.0 - 07/17 48.0 [facility] Group Hematology PLATELETS 199 K/CMM 133 - 450 07/17 MH /mm3 [facility] Hematology HGB 13.6 g/dL 12.0 - 07/17 16. [facility] Hematology HCT 41.8 % 36.0 - 07/17 48.0 [facility] Group Hematology PLATELETS 199 K/CMM 133 - 450 07/17 MH /mm3 [facility] Group Urinalysis UA COLOR Yellow 07/17 Medical Group Urinalysis BACTERIA URN Occasional 07/17 Medical Group Urinalysis UA COLOR Yellow 07/17 [facility] Group Urinalysis BACTERIA URN Occasional 07/17 Medical Group Urinalysis UA COLOR Yellow 07/17 [facility] Group Urinalysis BACTERIA URN Occasional 07/17 Medical Group Urinalysis UA COLOR Yellow 07/17 Medical Group Urinalysis BACTERIA URN Occasional 07/17 [facility] Group Urinalysis BACTERIA URN Occasional 07/17 [facility] Group Chemistry HGBA1C 4.7 % - 5.6 03/26 [facility] Chemistry CHOLESTEROL 215 mg/dl - 199 03/26 [facility] Chemistry TRIGLYCERIDE 182 mg/dl - 149 03/26 [facility] Chemistry HDL 42 mg/dl >=61 03/26 [facility] Chemistry LDL 137 mg/dl - 99 03/26 [facility] Chemistry SODIUM 139 MEQ/L 135 - 145 03/26 mmol/L [facility] Chemistry POTASSIUM 4.1 MEQ/L 3.5 - 5.1 03/26 mmol/L [facility] Chemistry CREATININE 0.8 mg/dL 0.5 - 1.4 03/26 [facility] Chemistry BUN 11 mg/dL 7 - 22 03/26 [facility] Chemistry BUN/CREAT 14 6 - 25 03/26 [facility] Chemistry ALBUMIN 3.7 g/dL 3.5 - 5.0 03/26 [facility] Chemistry CALCIUM 8.9 mg/dL 8.5 - 10.5 03/26 [facility] Chemistry SGPT (ALT) 41 U/L 0 - 65 03/26 [facility] Chemistry SGOT (AST) 23 U/L 0 - 37 03/26 [facility] Chemistry ALK PHOS 167 U/L 39 - 136 03/26 [facility] Chemistry FERRITIN 10 ng/mL 5 - 204 03/26 [facility] Chemistry IRON 25 ug/dL 30 - 160 03/26 [facility] Chemistry TIBC 431 ug/dL 228 - 428 03/26 [facility] Chemistry TSH 2.050 uIU/mL 0.360 - 03/26 3.740 [facility] Chemistry HGBA1C 4.7 % - 5.6 03/26 [facility] Chemistry CHOLESTEROL 215 mg/dl - 199 03/26 [facility] Chemistry TRIGLYCERIDE 182 mg/dl - 149 03/26 [facility] Chemistry HDL 42 mg/dl >=61 03/26 [facility] Chemistry LDL 137 mg/dl - 99 03/26 [facility] Chemistry SODIUM 139 MEQ/L 135 - 145 03/26 mmol/L [facility] Chemistry POTASSIUM 4.1 MEQ/L 3.5 - 5.1 03/26 mmol/L [facility] Chemistry CREATININE 0.8 mg/dL 0.5 - 1.4 03/26 [facility] Chemistry BUN 11 mg/dL 7 - 22 03/26 [facility] Chemistry BUN/CREAT 14 6 - 25 03/26 [facility] Chemistry ALBUMIN 3.7 g/dL 3.5 - 5.0 03/26 [facility] Chemistry CALCIUM 8.9 mg/dL 8.5 - 10.5 03/26 [facility] Chemistry SGPT (ALT) 41 U/L 0 - 65 03/26 [facility] Chemistry HGBA1C 4.7 % - 5.6 03/26 [facility] Chemistry CHOLESTEROL 215 mg/dl - 199 03/26 [facility] Chemistry TRIGLYCERIDE 182 mg/dl - 149 03/26 [facility] Chemistry HDL 42 mg/dl >=61 03/26 [facility] Chemistry HGBA1C 4.7 % - 5.6 03/26 [facility] Chemistry CHOLESTEROL 215 mg/dl - 199 03/26 [facility] Chemistry HGBA1C 4.7 % - 5.6 03/26 [facility] Chemistry CHOLESTEROL 215 mg/dl - 199 03/26 [facility] Chemistry TRIGLYCERIDE 182 mg/dl - 149 03/26 [facility] Chemistry HDL 42 mg/dl >=61 03/26 [facility] Chemistry LDL 137 mg/dl - 99 03/26 [facility] Chemistry SODIUM 139 MEQ/L 135 - 145 03/26 mmolL [facility] Chemistry POTASSIUM 4.1 MEQ/L 3.5 - 5.1 03/26 mmolL [facility] Chemistry CREATININE 0.8 mg/dL 0.5 - 1.4 03/26 [facility] Chemistry BUN 11 mg/dL 7 - 22 03/26 [facility] Chemistry BUN/CREAT 14 6 - 25 03/26 [facility] Chemistry ALBUMIN 3.7 g/dL 3.5 - 5.0 03/26 [facility] Chemistry CALCIUM 8.9 mg/dL 8.5 - 10.5 03/26 [facility] Chemistry SGPT (ALT) 41 U/L 0 - 65 03/26 [facility] Chemistry SGOT (AST) 23 U/L 0 - 37 03/26 [facility] Chemistry ALK PHOS 167 U/L 39 - 136 03/26 [facility] Chemistry FERRITIN 10 ng/mL 5 - 204 03/26 [facility] Chemistry IRON 25 ug/dL 30 - 160 03/26 [facility] Chemistry TIBC 431 ug/dL 228 - 428 03/26 [facility] Chemistry TSH 2.050 uIU/mL 0.360 - 03/26 3.74 [facility] Chemistry TRIGLYCERIDE 182 mg/dl - 149 03/26 [facility] Hematology HGB 9.8 g/dL 12.0 - 05/19 MH 16.0 [facility] Hematology HCT 32.7 % 36.0 - 03/26 MH 48.0 [facility] Hematology PLATELETS 268 K/CMM 133 - 450 03/26 MH /mm3 /2014 [facility] Hematology HGB 9.8 g/dL 12.0 - 03/26 MH 16.0 [facility] Hematology HCT 32.7 % 36.0 - 03/26 MH 48.0 [facility] Hematology PLATELETS 268 K/CMM 133 - 450 03/26 [facility] /mm3 /2014 [facility] Hematology ESR 39 mm/hr 0 - 20 03/26 [facility] Serology GIACOMO Positive 03/26 [facility] Serology GIACOMO Positive 03/26 [facility] Serology GIACOMO Positive 03/26 [facility] Serology GIACOMO Positive 03/26 [facility] Serology GIACOMO Positive 03/26 [facility] Urinalysis UA COLOR Yellow 03/26 [facility] Urinalysis BACTERIA URN Occasional 03/26 [facility] Urinalysis UA COLOR Yellow 03/26 [facility] Urinalysis BACTERIA URN Occasional 03/26 [facility] Urinalysis UA COLOR Yellow 03/26 [facility] Urinalysis BACTERIA URN Occasional 03/26 [facility] Urinalysis UA COLOR Yellow 03/26 [facility] Urinalysis BACTERIA URN Occasional 03/26 [facility] Vital Signs Vital Sign Value Date Comments Source Height 65 05/09/2015 [facility] Weight 197 05/09/2015 [facility] Temperature Oral (F) 97.0 F 05/09/2015 [facility] Heart Rate 55 05/09/2015 [facility] Systolic (mm Hg) 116 05/09/2015 [facility] Diastolic (mm Hg) 61 05/09/2015 [facility] Weight 195 04/12/2015 [facility] Temperature Oral (F) 98.2 F 04/12/2015 [facility] Systolic (mm Hg) 110 04/12/2015 [facility] Diastolic (mm Hg) 73 04/12/2015 [facility] Heart Rate 72 04/12/2015 [facility] Height 65 03/22/2015 [facility] Weight 194 03/22/2015 [facility] Temperature Oral (F) 95.9 F 03/22/2015 [facility] Heart Rate 49 03/22/2015 [facility] Systolic (mm Hg) 125 03/22/2015 [facility] Diastolic (mm Hg) 69 03/22/2015 [facility] Height 65 02/15/2015 [facility] Weight 189 02/15/2015 [facility] Systolic (mm Hg) 116 02/15/2015 [facility] Heart Rate 54 02/15/2015 [facility] Diastolic (mm Hg) 70 02/15/2015 [facility] Temperature Oral (F) 97.3 F 02/15/2015 [facility] Height 65 01/10/2015 [facility] Weight 194 01/10/2015 [facility] Temperature Oral (F) 97.6 F 01/10/2015 [facility] Heart Rate 51 01/10/2015 [facility] Systolic (mm Hg) 119 01/10/2015 [facility] Diastolic (mm Hg) 69 01/10/2015 [facility] Weight 197 12/10/2014 [facility] Temperature Oral (F) 97.0 F 12/10/2014 [facility] Systolic (mm Hg) 125 12/10/2014 [facility] Diastolic (mm Hg) 69 12/10/2014 [facility] Heart Rate 59 12/10/2014 [facility] Weight 201 11/13/2014 [facility] Temperature Oral (F) 96.8 F 11/13/2014 [facility] Height 65 11/13/2014 [facility] Heart Rate 75 11/13/2014 [facility] Systolic (mm Hg) 119 11/13/2014 [facility] Diastolic (mm Hg) 76 11/13/2014 [facility] Height 65 10/26/2014 [facility] Weight 206 10/26/2014 [facility] Heart Rate 54 10/26/2014 [facility] Systolic (mm Hg) 125 10/26/2014 [facility] Diastolic (mm Hg) 71 10/26/2014 [facility] Temperature Oral (F) 98.1 F 10/26/2014 [facility] Height 65 10/03/2014 [facility] Weight 215 10/03/2014 [facility] Temperature Oral (F) 97.2 F 10/03/2014 [facility] Heart Rate 66 10/03/2014 [facility] Systolic (mm Hg) 138 10/03/2014 [facility] Diastolic (mm Hg) 67 10/03/2014 [facility] Weight 231 07/17/2014 [facility] Systolic (mm Hg) 155 07/17/2014 [facility] Diastolic (mm Hg) 82 07/17/2014 [facility] Heart Rate 61 07/17/2014 [facility] Temperature Oral (F) 97.5 F 07/17/2014 [facility] Height 65 07/17/2014 [facility] Weight 251 03/24/2014 [facility] Height 65 03/24/2014 [facility] Temperature Oral (F) 98.9 F 03/24/2014 [facility] Heart Rate 83 03/24/2014 [facility] Systolic (mm Hg) 137 03/24/2014 [facility] Diastolic (mm Hg) 77 03/24/2014 [facility] Encounters Location Location Encounter Encounter Reason Attending ADM DC Status Source Details Type Number For Provider Date Date Visit [facility] [id number] Zenithe 03/24 03/24 Ezra Visit 980 MD Tamir /2013 [facility] Lab Report [id number] Zenithe 03/26 03/26 [place] 980 MD Tamir /2013 [facility] Lab Report [id number] Zenithe 04/27 04/27 Ezra 710 MD Tamir /2013 [facility] Lab Report [id number] Zenithe 07/17 07/17 Ezra 360 MD Tmair /2013 [facility] Office [id number] Zenithe 10/03 10/03 MH Ezra Visit 120 MD Tamir /2013 [facility] Office [id number] Zenithe 10/26 10/26 MH Ezra Visit 280 MD Tamir /2013 [facility] Office [id number] Zenithe 11/13 11/13 MH [place] Visit 140 MD Tamir /2014 [facility] Office [id number] Zenithe 12/10 12/10 MH [place] Visit 320 MD Tamir /2014 [facility] Lab Report [id number] Zenithe 12/20 12/20 [place] 760 MD Tamir /2014 [facility] Office [id number] Zenithe 01/10 01/10 MH Ezra Visit 400 MD Tamir /2014 [facility] Lab Report [id number] Zenithe 02/15 02/15 Ezra 090 MD Tamir /2014 [facility] Office [id number] Zenithe 03/22 03/22 [place] Visit 690 MD Tamir /2014 [facility] Lab Report [id number] Zenithe 04/11 04/11 Ezra 120 MD Tamir /2014 [facility] Office [id number] Zenithe 04/12 04/12 Ezra Visit 360 MD Tamir /2014 [facility] Lab Report [id number] Zenithe 05/09 05/09 Ezra 170 MD Tamir /2014 [facility] Office [id number] Zenithe 05/09 05/09 [place] Visit 890 MD Tamir /2014 [facility] Procedures Procedure Code Date Perfomer Comments Source
--- OUTSIDE RECORDS SUMMARY | 2018-05-04 07:21 | XMS REPORT | Continuity of Care Document ---
:1975 Author Organization [facility] Care Team Providers Name Role Phone MD Ganrett Zenithe Unavailable Unavailable Insurance Providers Payer name Policy type / Policy ID Covered green party ID Policy Gutierrez Coverage type MEDICARE [place]: NOVITAS [place] MEDICARE B-[place]: [id number]-[id number] [place] Encounters Encounter Performer Location Date Office Visit Higinio Garnett MD [facility] March 24, 2014 [place] Allergies, Adverse Reactions, Alerts Type Substance Reaction Status Drug allergy CODEINE heart problems Active Drug allergy MORPHINE heart problems Active Drug allergy NEXIUM codeine Active Drug allergy DEMEROL heart problems Active Drug allergy CEPHALOSPORINS heart problems Active Problems Problem Effective Dates Problem Status SCLERODERMA March 24, 2014 Active ESOPHAGEAL MOTILITY DISORDER March 24, 2014 Active ANEMIA, IRON DEFICIENCY March 24, 2014 Active INCOMPLETE BLADDER EMPTYING March 24, 2014 Active SCREENING, DIABETES MELLITUS March 24, 2014 Active SCREENING FOR LIPOID DISORDERS March 24, 2014 Active NEPHROLITHIASIS March 24, 2014 Active FATIGUE March 24, 2014 Active COUGH March 24, 2014 Active SEIZURE DISORDER March 24, 2014 Active Procedures Date Description Comments March 24, 2014 smoking status never smoker Medications Medication Instructions Start Date Status PANTOPRAZOLE SODIUM 40 MG TBEC 40 mg po daily March 24, 2014 Active TOPAMAX 100 MG TABS 1 tab po bid for seizures March 24, 2014 Active PROMETHAZINE HCL 25 MG TABS 1 tablet once or twice daily as March 24, 2014 Active needed for nausea/vomiting AZITHROMYCIN 250 MG TABS 2 tablets daily for 1 day, then 1 March 24, 2014 Active tablet daily for 4 days Vital Signs Date Description Test Result March 24, 2014 weight E&M - 3141-9 WEIGHT 251 lb March 24, 2014 height E&M - 8302-2 HEIGHT 65 in March 24, 2014 temperature E&M TEMPERATURE 98.9 deg f March 24, 2014 pulse rate E&M - 8867-4 PULSE RATE 83 /min March 24, 2014 blood pressure, systolic - 8480-6 BP SYSTOLIC 137 mm Hg March 24, 2014 blood pressure, diastolic - 8462-4 BP DIASTOLIC 77 mm Hg
--- OUTSIDE RECORDS SUMMARY | 2018-05-04 07:22 | XMS REPORT | Continuity of Care Document ---
:1975 Author Organization [facility] Care Team Providers Name Role Phone MD Garnett Zenithe Unavailable Unavailable Insurance Providers Payer name Policy type / Policy ID Covered alliance party ID Policy Gutierrez Coverage type MEDICARE B-[place]: Flow[employer]ITAS [employer] MEDICARE B-[place]: [employer] Encounters Encounter Performer Location Date Lab Report Higinio Garnett MD [facility] - March 26, 2014 [place] Allergies, Adverse Reactions, Alerts Type Substance Reaction [...] 2 tablets daily for 1 day, then March 24, 2014 Inactive 1 tablet daily for 4 days Vital Signs [...] - 8462-4 BP DIASTOLIC 77 mm Hg Results Date Description Test Name Value Reference Interpretation Status March 26, hemoglobin, blood HGB 9.8 g/dL 12.0-16.0 Low 2013March 26, hematocrit, blood HCT 32.7 % 36.0-48.0 Low 2013March 26, platelet count PLATELETS 268 K/CMM 442-030 6544 /mm3 March 26, erythrocyte ESR 39 mm/hr 0-20 High 2013 sedimentation rate March 26, urine color UA COLOR Yellow null Yellow 2013March 26, bacteria, urine BACTERIA URN Occasional None Seen 2014 microscopy null March 26, hemoglobin A1C, HGBA1C 4.7 % <=5.6 2014 blood, as % of total hemoglobin March 26, cholesterol, serum CHOLESTEROL 215 mg/dl <=199 High 2013March 26, triglyceride, TRIGLYCERIDE 182 mg/dl <=149 High 2013 serum, fasting March 26, HDL cholesterol, HDL 42 mg/dl >=61 Low 2013 serum March 26, LDL cholesterol, LDL 137 mg/dl <=99 High 2013 serum March 26, sodium, serum SODIUM 139 MEQ/L 434-089 8723 mmol/L March 26, potassium, serum POTASSIUM 4.1 MEQ/L 3.5-5.1 2013 mmol/L March 26, creatinine, serum CREATININE 0.8 mg/dL 0.5-1.4 2013March 26, urea nitrogen, BUN 11 mg/dL 7-22 2013 blood March 26, urea BUN/CREAT 14 null 6-25 2014 nitrogen/creatinine ratio, serum March 26, albumin, serum ALBUMIN 3.7 g/dL 3.5-5.0 2013March 26, calcium, serum CALCIUM 8.9 mg/dL 8.5-10.5 2013March 26, alanine SGPT (ALT) 41 U/L 0-65 2014 aminotransferase (SGPT), serum March 26, aspartate SGOT (AST) 23 U/L 0-37 2014 aminotransferase (SGOT), serum March 26, alkaline ALK PHOS 167 U/L 39-136 High 2014 phosphatase, serum March 26, ferritin, serum FERRITIN 10 ng/mL 5-204 2013March 26, iron, serum IRON 25 ug/dL 30-160 Low 2013March 26, iron binding TIBC 431 ug/dL 228-428 High 2013 capacity, total March 26, thyroid stimulating TSH 2.050 uIU/mL 0.360-3.740 2014 hormone, serum March 26, antinuclear GIACOMO Positive null Negative Abnormal 2013 antibody
--- OUTSIDE RECORDS SUMMARY | 2018-05-04 07:22 | XMS REPORT | Continuity of Care Document ---
:1975 Author Organization [facility] Care Team Providers Name Role Phone MD Garnett Zenithe Unavailable Unavailable Insurance Providers Payer name Policy type / Policy ID Covered libertarian ID Policy Gutierrez Coverage type MEDICARE B-[place]: [employer] MEDICARE B-[place]: [employer] Encounters Encounter Performer Location Date Office Visit Higinio Garnett MD [facility] Oct 03, 2014 [place] Allergies, Adverse Reactions, Alerts Type Substance Reaction [...] Active SCREENING, DIABETES MELLITUS March 24, 2014 Inactive SCREENING FOR LIPOID DISORDERS March 24, 2014 Inactive NEPHROLITHIASIS March 24, 2014 Active FATIGUE March 24, 2014 Inactive COUGH March 24, 2014 Active SEIZURE DISORDER March 24, 2014 Active TRANSAMINASES, SERUM, ELEVATED Jul 17, 2014 Active CHEST PAIN, ATYPICAL Jul 17, 2014 Active SHOULDER PAIN, RIGHT Jul 17, 2014 Active HYPERTENSION, BENIGN Jul 17, 2014 Active VENTRAL HERNIA, INCISIONAL Oct 03, 2014 Active Procedures Date Description Comments March 24, 2014 smoking status never smoker Jul 17, 2014 smoking status Never smoker Oct 03, 2014 smoking status Never smoker Medications Medication Instructions Start Date Status AZITHROMYCIN 250 MG TABS 2 tablets daily for 1 day, March 24, 2014 Inactive then 1 tablet daily for 4 days PANTOPRAZOLE SODIUM 40 MG TBEC 40 mg po daily March 24, 2014 Inactive TOPAMAX 100 MG TABS 1 tab po bid for seizures March 24, 2014 Inactive PROMETHAZINE HCL 25 MG TABS 1 tablet once or twice daily March 24, 2014 Inactive as needed for nausea/vomiting VITAMIN D (ERGOCALCIFEROL) 51586 Take 1 capsule by mouth April 04, 2014 Inactive UNIT CAPS every week for 12 weeks ZOFRAN ODT 4 MG TBDP 1-2 tablets under your April 05, 2014 Inactive tongue q8 hours as needed for severe nausea RANITIDINE HCL 150 MG TABS 1 tablet twice daily for April 05, 2014 Inactive stomach NORVASC 5 MG TABS 1 tablet daily for blood Jul 17, 2014 Active pressure, increase to 2 tabs daily if bp > 140/90 PREDNISONE 10 MG TABS 4 tablets daily x 1 day, Jul 17, 2014 Inactive then 3 tablets daily x 1 day, then 2 tablets daily x 1 day, then 1 tablet daily thereafter CIPROFLOXACIN HCL 500 MG TABS 1 tablet twice daily for Jul 25, 2014 Inactive urinary infection x 3 days PREDNISONE 10 MG TABS 1 tab daily Oct 03, 2014 Active HYDROXYCHLOROQUINE SULFATE 200 MG 1 tab twice daily Oct 03, 2014 Active TABS LOSARTAN POTASSIUM 50 MG TABS 1 tab daily Oct 03, 2014 Active PLAQUENIL 200 MG TABS Oct 03, 2014 Active HYDROCODONE-ACETAMINOPHEN 10-325 MG 1 tablet three times a day Oct 03, 2014 Active TABS as needed for pain Vital Signs Date Description Test Result March [...] - 8462-4 BP DIASTOLIC 77 mm Hg Jul 17, 2014 weight E&M - 3141-9 WEIGHT 231 lb Jul 17, 2014 blood pressure, systolic - 8480-6 BP SYSTOLIC 155 mm Hg Jul 17, 2014 blood pressure, diastolic - 8462-4 BP DIASTOLIC 82 mm Hg Jul 17, 2014 pulse rate E&M - 8867-4 PULSE RATE 61 /min Jul 17, 2014 temperature E&M TEMPERATURE 97.5 deg f Jul 17, 2014 height E&M - 8302-2 HEIGHT 65 in Oct 03, 2014 height E&M - 8302-2 HEIGHT 65 in Oct 03, 2014 weight E&M - 3141-9 WEIGHT 215 lb Oct 03, 2014 temperature E&M TEMPERATURE 97.2 deg f Oct 03, 2014 pulse rate E&M - 8867-4 PULSE RATE 66 /min Oct 03, 2014 blood pressure, systolic - 8480-6 BP SYSTOLIC 138 mm Hg Oct 03, 2014 blood pressure, diastolic - 8462-4 BP DIASTOLIC 67 mm Hg Results Date Description Test Name Value Reference Interpretation Status Jul 17, hemoglobin, blood HGB 13.6 g/dL 12.0-16.0 2013Jul 17, hematocrit, blood HCT 41.8 % 36.0-48.0 2013Jul 17, platelet count PLATELETS 199 K/CMM 973-983 8711 /mm3 March 26, hemoglobin, blood HGB 9.8 g/dL 12.0-16.0 Low 2013March 26, hematocrit, blood HCT 32.7 % 36.0-48.0 Low 2013March 26, platelet count PLATELETS 268 K/CMM 060-812 8553 /mm3 March 26, erythrocyte ESR 39 mm/hr 0-20 High 2013 sedimentation rate Jul 17, hemoglobin, blood HGB 13.6 g/dL 12.0-16.0 2013Jul 17, hematocrit, blood HCT 41.8 % 36.0-48.0 2013Jul 17, platelet count PLATELETS 199 K/CMM 875-782 1209 /mm3 Jul 17, urine color UA COLOR Yellow null Yellow 2013Jul 17, bacteria, urine BACTERIA URN Occasional None Seen 2013 microscopy null March 26, urine color UA COLOR Yellow null Yellow 2013March 26, bacteria, urine BACTERIA URN Occasional None Seen 2013 microscopy null Jul 17, urine color UA COLOR Yellow null Yellow 2013Jul 17, bacteria, urine BACTERIA URN Occasional None Seen 2013 microscopy null Jul 17, sodium, serum SODIUM 140 MEQ/L [phone] mmol/L Jul 17, potassium, serum POTASSIUM 3.8 MEQ/L 3.5-5.1 2013 mmol/L Jul 17, creatinine, serum CREATININE 0.6 mg/dL 0.5-1.4 2013Jul 17, urea nitrogen, BUN 7 mg/dL -2013 blood Jul 17, urea BUN/CREAT 12 null 6-25 2013 nitrogen/creatinine ratio, serum Jul 17, albumin, serum ALBUMIN 4.0 g/dL 3.5-5.0 2013Jul 17, calcium, serum CALCIUM 9.0 mg/dL 8.5-10.5 2013Jul 17, alanine SGPT (ALT) 85 U/L 0-65 High 2013 aminotransferase (SGPT), serum Jul 17, aspartate SGOT (AST) 46 U/L 0-37 High 2013 aminotransferase (SGOT), serum Jul 17, alkaline ALK PHOS 157 U/L 39-136 High 2013 phosphatase, serum March 26, hemoglobin A1C, HGBA1C 4.7 % <=5.6 2013 blood, as % of total hemoglobin March 26, cholesterol, serum CHOLESTEROL 215 mg/dl <=199 High 2013March 26, triglyceride, TRIGLYCERIDE 182 mg/dl <=149 High 2013 serum, fasting March 26, HDL cholesterol, HDL 42 mg/dl >=61 Low 2013 serum March 26, LDL cholesterol, LDL 137 mg/dl <=99 High 2013 serum March 26, sodium, serum SODIUM 139 MEQ/L [phone] mmol/L March 26, potassium, serum POTASSIUM 4.1 MEQ/L 3.5-5.1 2013 mmol/L March 26, creatinine, serum CREATININE 0.8 mg/dL 0.5-1.4 2013March 26, urea nitrogen, BUN 11 mg/dL 7-2013 blood March 26, urea BUN/CREAT 14 null 6-25 2013 nitrogen/creatinine ratio, serum March 26, albumin, serum ALBUMIN 3.7 g/dL 3.5-5.0 2013March 26, calcium, serum CALCIUM 8.9 mg/dL 8.5-10.5 2013March 26, alanine SGPT (ALT) 41 U/L 0-65 2013 aminotransferase (SGPT), serum March 26, aspartate SGOT (AST) 23 U/L 0-37 2013 aminotransferase (SGOT), serum March 26, alkaline ALK PHOS 167 U/L 39-136 High 2013 phosphatase, serum March 26, ferritin, serum FERRITIN 10 ng/mL 5-204 2013March 26, iron, serum IRON 25 ug/dL 30-160 Low 2013March 26, iron binding TIBC 431 ug/dL 228-428 High 2013 capacity, total March 26, thyroid stimulating TSH 2.050 uIU/mL 0.360-3.740 2013 hormone, serum Jul 17, sodium, serum SODIUM 140 MEQ/L 335-632 7419 mmol/L Jul 17, potassium, serum POTASSIUM 3.8 MEQ/L 3.5-5.1 2013 mmol/L Jul 17, creatinine, serum CREATININE 0.6 mg/dL 0.5-1.4 2013Jul 17, urea nitrogen, BUN 7 mg/dL -2013 blood Jul 17, urea BUN/CREAT 12 null 6-25 2013 nitrogen/creatinine ratio, serum Jul 17, albumin, serum ALBUMIN 4.0 g/dL 3.5-5.0 2013Jul 17, calcium, serum CALCIUM 9.0 mg/dL 8.5-10.5 2013Jul 17, alanine SGPT (ALT) 85 U/L 0-65 High 2013 aminotransferase (SGPT), serum Jul 17, aspartate SGOT (AST) 46 U/L 0-37 High 2013 aminotransferase (SGOT), serum Jul 17, alkaline ALK PHOS 157 U/L 39-136 High 2013 phosphatase, serum March 26, antinuclear GIACOMO Positive null Negative Abnormal 2013 antibody
--- OUTSIDE RECORDS SUMMARY | 2018-05-04 07:22 | XMS REPORT | Continuity of Care Document ---
:1975 Author Organization [facility] Care Team Providers Name Role Phone MD Garnett Zenithe Unavailable Unavailable Insurance Providers Payer name Policy type / Policy ID Covered democrat ID Policy Gutierrez Coverage type MEDICARE B-[place]: [employer] MEDICARE B-[place]: [employer] Encounters Encounter Performer Location Date Lab Report Higinio Garnett MD [facility] - Apr 27, 2014 [place] Allergies, Adverse Reactions, Alerts Type Substance Reaction [...] Inactive 1 tablet daily for 4 days VITAMIN D (ERGOCALCIFEROL) 92983 Take 1 capsule by mouth every April 04, 2014 Active UNIT CAPS week for 12 weeks ZOFRAN ODT 4 MG TBDP 1-2 tablets under your tongue April 05, 2014 Active q8 hours as needed for severe nausea RANITIDINE HCL 150 MG TABS 1 tablet twice daily for April 05, 2014 Active stomach Vital Signs Date Description Test Result March 24, 2014 weight E&M WEIGHT 251 lb March 24, 2014 height E&M HEIGHT 65 in March 24, 2014 temperature E&M TEMPERATURE 98.9 deg f March 24, 2014 pulse rate E&M PULSE RATE 83 /min March 24, 2014 blood pressure, systolic BP SYSTOLIC 137 mm Hg March 24, 2014 blood pressure, diastolic BP DIASTOLIC 77 mm Hg Results Date Description Test Name Value Reference Interpretation Status March 26, hemoglobin, blood HGB 9.8 g/dL 12.0-16.0 Low 2013March 26, hematocrit, blood HCT 32.7 % 36.0-48.0 Low 2013March 26, platelet count PLATELETS 268 K/CMM 527-992 3695 /mm3 March 26, erythrocyte ESR 39 mm/hr 0-20 High 2013 sedimentation rate March 26, urine color UA COLOR Yellow null Yellow 2013March 26, bacteria, urine BACTERIA URN Occasional None Seen 2013 microscopy null March 26, hemoglobin A1C, HGBA1C 4.7 % <=5.6 2013 blood, as % of total hemoglobin March 26, cholesterol, serum CHOLESTEROL 215 mg/dl <=199 High 2013March 26, triglyceride, TRIGLYCERIDE 182 mg/dl <=149 High 2013 serum, fasting March 26, HDL cholesterol, HDL 42 mg/dl >=61 Low 2013 serum March 26, LDL cholesterol, LDL 137 mg/dl <=99 High 2013March 26, sodium, serum SODIUM 139 MEQ/L 159-665 2203 mmol/L March 26, potassium, serum POTASSIUM 4.1 [...] TSH 2.050 uIU/mL 0.360-3.740 2013 hormone, serum March 26, antinuclear GIACOMO Positive null Negative Abnormal 2013 antibody
--- OUTSIDE RECORDS SUMMARY | 2018-05-04 07:22 | XMS REPORT | Continuity of Care Document ---
:1975 Author Organization [facility] Care Team Providers Name Role Phone MD Garnett Zenithe Unavailable Unavailable Insurance Providers Payer name Policy type / Policy ID Covered republican ID Policy Gutierrez Coverage type MEDICARE B-[place]: NOVITAS [employer] MEDICARE B-[place]: [employer] Encounters Encounter Performer Location Date Lab Report Higinio Garnett MD [facility] Jul 17, 2014 [place] Allergies, Adverse Reactions, Alerts Type Substance Reaction [...] Active HYPERTENSION, BENIGN Jul 17, 2014 Active Procedures Date Description Comments March 24, 2014 smoking status never smoker Jul 17, 2014 smoking status Never smoker Medications Medication Instructions Start Date Status AZITHROMYCIN 250 MG TABS 2 tablets daily for 1 day, then March 24, 2014 Inactive 1 tablet daily for 4 days PANTOPRAZOLE SODIUM 40 MG TBEC 40 mg po daily March 24, 2014 Inactive TOPAMAX 100 MG TABS 1 tab po bid for seizures March 24, 2014 Inactive PROMETHAZINE HCL 25 MG TABS 1 tablet once or twice daily as March 24, 2014 Inactive needed for nausea/vomiting VITAMIN D (ERGOCALCIFEROL) 23922 Take 1 capsule by mouth every April 04, 2014 Inactive UNIT CAPS week for 12 weeks ZOFRAN ODT 4 MG TBDP 1-2 tablets under your tongue April 05, 2014 Inactive q8 hours as needed for severe nausea RANITIDINE HCL 150 MG TABS 1 tablet twice daily for April 05, 2014 Inactive stomach NORVASC 5 MG TABS 1 tablet daily for blood Jul 17, 2014 Active pressure, increase to 2 tabs daily if bp > 140/90 PREDNISONE 10 MG TABS 4 tablets daily x 1 day, then 3 Jul 17, 2014 Active tablets daily x 1 day, then 2 tablets daily x 1 day, then 1 tablet daily thereafter CIPROFLOXACIN HCL 500 MG TABS 1 tablet twice daily for Jul 25, 2014 Active urinary infection x 3 days Vital Signs Date Description Test Result [...] height E&M - 8302-2 HEIGHT 65 in Results Date Description Test Name Value Reference Interpretation Status Jul 17, hemoglobin, blood HGB 13.6 g/dL 12.0-16.0 2013Jul 17, hematocrit, blood HCT 41.8 % 36.0-48.0 2013Jul 17, platelet count PLATELETS 199 K/CMM 763-636 8513 /mm3 March 26, hemoglobin, blood HGB 9.8 g/dL 12.0-16.0 Low 2013March 26, hematocrit, blood HCT 32.7 % 36.0-48.0 Low 2013March 26, platelet count PLATELETS 268 K/CMM 877-938 6108 /mm3 March 26, erythrocyte ESR 39 mm/hr 0-20 High 2013 sedimentation rate Jul 17, hemoglobin, blood HGB 13.6 g/dL 12.0-16.0 2013Jul 17, hematocrit, blood HCT 41.8 % 36.0-48.0 2013Jul 17, platelet count PLATELETS 199 K/CMM 846-392 4300 /mm3 Jul 17, urine color UA COLOR Yellow null Yellow 2013Jul 17, bacteria, urine BACTERIA URN Occasional None Seen 2013 microscopy null March 26, urine color UA COLOR Yellow null Yellow 2013March 26, bacteria, urine BACTERIA URN Occasional None Seen 2013 microscopy Jul 17, urine color UA COLOR Yellow null Yellow 2013Jul 17, bacteria, urine BACTERIA URN Occasional None Seen 2013 microscopy null Jul 17, sodium, serum SODIUM 140 MEQ/L [phone] mmol/L Jul 17, potassium, serum POTASSIUM 3.8 MEQ/L 3.5-5.1 2013 mmol/L Jul 17, creatinine, serum CREATININE 0.6 mg/dL 0.5-1.4 2013Jul 17, urea nitrogen, BUN 7 mg/dL 05-29 blood Jul 17, urea BUN/CREAT 12 null 05-02 nitrogen/creatinine ratio, serum Jul 17, albumin, serum [...] March 26, sodium, serum SODIUM 139 MEQ/L [phone] mmol/L March 26, potassium, serum POTASSIUM 4.1 MEQ/L 3.5-5.1 2013 mmol/L March 26, creatinine, serum CREATININE 0.8 mg/dL 0.5-1.4 2013March 26, urea nitrogen, BUN 11 mg/dL -2013 blood March 26, urea BUN/CREAT 14 null 05-02 nitrogen/creatinine ratio, serum March 26, albumin, serum [...] Jul 17, sodium, serum SODIUM 140 MEQ/L [phone] mmol/L Jul 17, potassium, serum POTASSIUM 3.8 MEQ/L 3.5-5.1 2013 mmol/L Jul 17, creatinine, serum CREATININE 0.6 mg/dL 0.5-1.4 2013Jul 17, urea nitrogen, BUN 7 mg/dL 7-22 2013 blood Jul 17, urea BUN/CREAT 12 null [...]
--- OUTSIDE RECORDS SUMMARY | 2018-05-04 07:22 | XMS REPORT | Continuity of Care Document ---
:1975 Author Organization [facility] Care Team Providers Name Role Phone MD Garnett Zenithe Unavailable Unavailable Insurance Providers Payer name Policy type / Policy ID Covered republican ID Policy Gutierrez Coverage type MEDIC[place] B-[place]: Application [employer] MEDICARE [place]: [employer] Encounters Encounter Performer Location Date Lab Report Higinio Garnett MD [facility] - March 26, 2014 [place] Allergies, Adverse Reactions, Alerts Type Substance Reaction [...] daily for 4 days VITAMIN D (ERGOCALCIFEROL) 29459 Take 1 capsule by mouth every April 04, 2014 Active UNIT CAPS week for 12 weeks Vital Signs Date Description Test Result March [...] 2013March 26, platelet count PLATELETS 268 K/CMM [phone] /mm3 March 26, erythrocyte ESR 39 mm/hr [...] March 26, sodium, serum SODIUM 139 MEQ/L 175-815 1161 mmol/L March 26, potassium, serum POTASSIUM 4.1 MEQ/L 3.5-5.1 2013 mmol/L March 26, creatinine, serum CREATININE 0.8 mg/dL 0.5-1.4 2013March 26, urea nitrogen, BUN 11 mg/dL 7-22 2013 blood March 26, urea BUN/CREAT 14 null -2013 nitrogen/creatinine ratio, serum March 26, albumin, serum [...]
--- OUTSIDE RECORDS SUMMARY | 2018-05-04 07:23 | XMS REPORT | Continuity of Care Document ---
:1975 Author Organization [facility] Care Team Providers Name Role Phone MD Garnett Zenithe Unavailable Unavailable Insurance Providers Payer name Policy type / Policy ID Covered alliance party ID Policy Gutierrez Coverage type MEDIC[place] B-[place]: [employer] MEDICARE [place]: [employer] Encounters Encounter Performer Location Date Office Visit Higinio Garnett MD [facility] Oct 26, 2014 [place] Allergies, Adverse Reactions, Alerts Type Substance Reaction [...] Oct 03, 2014 smoking status Never smoker Oct 26, 2014 smoking status Never smoker Medications Medication [...] as needed for nausea/vomiting VITAMIN D (ERGOCALCIFEROL) 88983 Take 1 capsule by mouth April 04, [...] 1 tab daily Oct 03, 2014 Active LOSARTAN POTASSIUM 50 MG TABS 1 tab daily Oct 03, 2014 Active HYDROCODONE-ACETAMINOPHEN 10-325 MG 1 tablet three times a day Oct 03, 2014 Active TABS as needed for pain PLAQUENIL 200 MG TABS Oct 03, 2014 Inactive HYDROXYCHLOROQUINE SULFATE 200 MG 1 tab twice daily Oct 03, 2014 Inactive TABS Vital Signs Date Description Test Result March [...] - 8462-4 BP DIASTOLIC 67 mm Hg Oct 26, 2014 height E&M - 8302-2 HEIGHT 65 in Oct 26, 2014 weight E&M - 3141-9 WEIGHT 206 lb Oct 26, 2014 pulse rate E&M - 8867-4 PULSE RATE 54 /min Oct 26, 2014 blood pressure, systolic - 8480-6 BP SYSTOLIC 125 mm Hg Oct 26, 2014 blood pressure, diastolic - 8462-4 BP DIASTOLIC 71 mm Hg Oct 26, 2014 temperature E&M TEMPERATURE 98.1 deg f Results Date Description Test Name Value Reference Interpretation Status Jul 17, hemoglobin, blood HGB 13.6 g/dL 12.0-16.0 2013Jul 17, hematocrit, blood HCT 41.8 % 36.0-48.0 2013Jul 17, platelet count PLATELETS 199 K/CMM 261-860 8297 /mm3 March 26, hemoglobin, blood HGB 9.8 g/dL 12.0-16.0 Low 2013March 26, hematocrit, blood HCT 32.7 % 36.0-48.0 Low 2013March 26, platelet count PLATELETS 268 K/CMM 280-942 9295 /mm3 March 26, erythrocyte ESR 39 mm/hr 0-20 High 2013 sedimentation rate Jul 17, hemoglobin, blood HGB 13.6 g/dL 12.0-16.0 2013Jul 17, hematocrit, blood HCT 41.8 % 36.0-48.0 2013Jul 17, platelet count PLATELETS 199 K/CMM 006-913 9309 /mm3 Jul 17, urine color UA COLOR [...] Jul 17, sodium, serum SODIUM 140 MEQ/L 645-946 2305 mmol/L Jul 17, potassium, serum POTASSIUM 3.8 [...] March 26, sodium, serum SODIUM 139 MEQ/L 102-944 9890 mmol/L March 26, potassium, serum POTASSIUM 4.1 [...] Jul 17, sodium, serum SODIUM 140 MEQ/L [phone] mmol/L Jul 17, potassium, serum POTASSIUM 3.8 [...]
--- OUTSIDE RECORDS SUMMARY | 2018-05-04 07:23 | XMS REPORT | Continuity of Care Document ---
:1975 Author Organization [facility] Care Team Providers Name Role Phone MD Garnett Zenithe Unavailable Unavailable Insurance Providers Payer name Policy type / Policy ID Covered libertarian ID Policy Gutierrez Coverage type MEDICARE B-[place]: [employer] MEDICARE B-[place]: Dyn Encounters Encounter Performer Location Date Office Visit Higinio Garnett MD [facility] Jan 10, 2015 [place] Allergies, Adverse Reactions, Alerts Type Substance Reaction Status Drug allergy CODEINE heart problems Active Drug allergy MORPHINE heart problems Active Drug allergy NEXIUM codeine Active Drug allergy DEMEROL heart problems Active Drug allergy CEPHALOSPORINS heart problems Active Drug allergy AMBIEN hallucinations when in the ICU Active Problems Problem Effective Dates Problem Status [...] VENTRAL HERNIA, INCISIONAL Oct 03, 2014 Active DYSFUNCTIONAL UTERINE BLEEDING Dec 10, 2014 Active SHORTNESS OF BREATH Dec 10, 2014 Active ASCITES Jan 10, 2015 Active INSOMNIA Jan 10, 2015 Active Procedures Date Description Comments March 24, 2014 smoking status never smoker Jul 17, 2014 smoking status Never smoker Oct 03, 2014 smoking status Never smoker Oct 26, 2014 smoking status Never smoker Nov 13, 2014 smoking status Never smoker Dec 10, 2014 smoking status Never smoker Jan 10, 2015 smoking status Never smoker Medications Medication Instructions [...] as needed for nausea/vomiting VITAMIN D (ERGOCALCIFEROL) 63445 Take 1 capsule by mouth April 04, 2014 Inactive UNIT CAPS every week for 12 weeks ZOFRAN ODT 4 MG TBDP 1-2 tablets under your April 05, 2014 Inactive tongue q8 hours as needed for severe nausea RANITIDINE HCL 150 MG TABS 1 tablet twice daily for April 05, 2014 Inactive stomach PREDNISONE 10 MG TABS 4 tablets daily x 1 day, Jul 17, 2014 Inactive then 3 tablets daily x 1 day, then 2 tablets daily x 1 day, then 1 tablet daily thereafter CIPROFLOXACIN HCL 500 MG TABS 1 tablet twice daily for Jul 25, 2014 Inactive urinary infection x 3 days HYDROCODONE-ACETAMINOPHEN 10-325 MG 1 tablet three times a day Oct 03, 2014 Active TABS as needed for pain PLAQUENIL 200 MG TABS Oct 03, 2014 Inactive HYDROXYCHLOROQUINE SULFATE 200 MG 1 tab twice daily Oct 03, 2014 Inactive TABS PREDNISONE 10 MG TABS 1 tab daily Oct 03, 2014 Inactive NORVASC 5 MG TABS 1 tablet daily for blood Jul 17, 2014 Inactive pressure, increase to 2 tabs daily if bp > 140/90 LOSARTAN POTASSIUM 50 MG TABS 1 tab daily Oct 03, 2014 Inactive PROMETHAZINE HCL 25 MG TABS 1 tablet every 8 hours as Dec 10, 2014 Inactive needed for nausea/vomiting TAMIFLU 75 MG CAPS 1 capsule daily x 10 days Dec 18, 2014 Inactive for flu prophylaxis LUNESTA 3 MG TABS 1 tablet at bedtime as Dec 10, 2014 Active needed for insomnia ESTAZOLAM 2 MG TABS 1/2 -1 tab nightly prn Jan 10, 2015 Active insomnia CITALOPRAM HYDROBROMIDE 20 MG TABS 1 tablet daily for mood Dec 10, 2014 Active FUROSEMIDE 20 MG TABS 1 tablet daily prn swelliing Jan 12, 2015 Active Vital Signs Date Description Test Result March [...] 2014 temperature E&M TEMPERATURE 98.1 deg f Nov 13, 2014 weight E&M - 3141-9 WEIGHT 201 lb Nov 13, 2014 temperature E&M TEMPERATURE 96.8 deg f Nov 13, 2014 height E&M - 8302-2 HEIGHT 65 in Nov 13, 2014 pulse rate E&M - 8867-4 PULSE RATE 75 /min Nov 13, 2014 blood pressure, systolic - 8480-6 BP SYSTOLIC 119 mm Hg Nov 13, 2014 blood pressure, diastolic - 8462-4 BP DIASTOLIC 76 mm Hg Dec 10, 2014 weight E&M - 3141-9 WEIGHT 197 lb Dec 10, 2014 temperature E&M TEMPERATURE 97.0 deg f Dec 10, 2014 blood pressure, systolic - 8480-6 BP SYSTOLIC 125 mm Hg Dec 10, 2014 blood pressure, diastolic - 8462-4 BP DIASTOLIC 69 mm Hg Dec 10, 2014 pulse rate E&M - 8867-4 PULSE RATE 59 /min Jan 10, 2015 height E&M - 8302-2 HEIGHT 65 in Jan 10, 2015 weight E&M - 3141-9 WEIGHT 194 lb Jan 10, 2015 temperature E&M TEMPERATURE 97.6 deg f Jan 10, 2015 pulse rate E&M - 8867-4 PULSE RATE 51 /min Jan 10, 2015 blood pressure, systolic - 8480-6 BP SYSTOLIC 119 mm Hg Jan 10, 2015 blood pressure, diastolic - 8462-4 BP DIASTOLIC 69 mm Hg Results Date Description Test Name Value Reference Interpretation Status Jul 17, hemoglobin, blood HGB 13.6 g/dL 12.0-16.0 2013Jul 17, hematocrit, blood HCT 41.8 % 36.0-48.0 2013Jul 17, platelet count PLATELETS 199 K/CMM 225-224 3858 /mm3 March 26, hemoglobin, blood HGB 9.8 g/dL 12.0-16.0 Low 2013March 26, hematocrit, blood HCT 32.7 % 36.0-48.0 Low 2013March 26, platelet count PLATELETS 268 K/CMM 835-812 0560 /mm3 March 26, erythrocyte ESR 39 mm/hr 0-20 High 2014 sedimentation rate Jul 17, hemoglobin, blood HGB 13.6 g/dL 12.0-16.0 2013Jul 17, hematocrit, blood HCT 41.8 % 36.0-48.0 2013Jul 17, platelet count PLATELETS 199 K/CMM 200-602 6342 /mm3 Jul 17, urine color UA COLOR [...] Jul 17, sodium, serum SODIUM 140 MEQ/L 253-618 6845 mmol/L Jul 17, potassium, serum POTASSIUM 3.8 [...] 157 U/L 39-136 High 2013 phosphatase, serum Dec 21, urea nitrogen, BUN 5 mg/dL 6-20 Low 2014 blood Dec 21, creatinine, serum CREATININE 0.58 mg/dL 0.57-1.00 2014Dec 21, urea BUN/CREAT 9 null 8-20 2014 nitrogen/creatinine ratio, serum Dec 21, sodium, serum SODIUM 139 mmol/L [phone] Dec 21, potassium, serum POTASSIUM 4.0 mmol/L 3.5-5.2 2014Dec 21, calcium, serum CALCIUM 8.8 mg/dL 8.7-10.2 2014Dec 21, albumin, serum ALBUMIN 3.9 g/dL 3.5-5.5 2014Dec 21, alkaline ALK PHOS 164 U/L 39-117 High 2014 phosphatase, serum Dec 21, aspartate SGOT (AST) 61 U/L 0-40 High 2014 aminotransferase (SGOT), serum Dec 21, alanine SGPT (ALT) 50 U/L 0-32 High 2014 aminotransferase (SGPT), serum Dec 21, testosterone, total TESTO, TOTAL <3 ng/dL 8-48 Low 2014 ng/dL Dec 22, testosterone, TESTO, FREE 0.2 pg/mL 0.0-2.2 2014 serum, free Dec 21, gamma glutamyl GGT 35 U/L 0-60 2014 transferase, serum March 26, hemoglobin A1C, HGBA1C 4.7 [...] March 26, sodium, serum SODIUM 139 MEQ/L 070-561 4949 mmol/L March 26, potassium, serum POTASSIUM 4.1 MEQ/L 3.5-5.1 2014 mmol/L March 26, creatinine, serum CREATININE 0.8 mg/dL 0.5-1.4 2013March 26, urea nitrogen, BUN 11 mg/dL 7-2013 blood March 26, urea BUN/CREAT 14 null 6-2013 nitrogen/creatinine ratio, serum March 26, albumin, serum [...] Jul 17, sodium, serum SODIUM 140 MEQ/L [phone] mmol/L Jul 17, potassium, serum POTASSIUM 3.8 [...] 157 U/L 39-136 High 2013 phosphatase, serum Fe, urea nitrogen, BUN 5 mg/dL 6-20 Low 2014 blood Dec 21, creatinine, serum CREATININE 0.58 mg/dL 0.57-1.00 2014Dec 21, urea BUN/CREAT 9 null 8-20 2014 nitrogen/creatinine ratio, serum Dec 21, sodium, serum SODIUM 139 mmol/L 025-014 3574 Dec 21, potassium, serum POTASSIUM 4.0 mmol/L 3.5-5.2 2014Dec 21, calcium, serum CALCIUM 8.8 mg/dL 8.7-10.2 2014Dec 21, albumin, serum ALBUMIN 3.9 g/dL 3.5-5.5 2014Dec 21, alkaline ALK PHOS 164 U/L 39-117 High 2014 phosphatase, serum Dec 21, aspartate SGOT (AST) 61 U/L 0-40 High 2014 aminotransferase (SGOT), serum Dec 21, alanine SGPT (ALT) 50 U/L 0-32 High 2014 aminotransferase (SGPT), serum Dec 21, testosterone, total TESTO, TOTAL <3 ng/dL 8-48 Low 2015 ng/dL Dec 22, testosterone, TESTO, FREE 0.2 pg/mL 0.0-2.2 2014 serum, free Dec 21, gamma glutamyl GGT 35 U/L 0-60 2014 transferase, serum March 26, antinuclear GIACOMO Positive null Negative Abnormal 2013 antibody
--- OUTSIDE RECORDS SUMMARY | 2018-05-04 07:23 | XMS REPORT | Continuity of Care Document ---
:1975 Author Organization [facility] Care Team Providers Name Role Phone MD Garnett Zenithe Unavailable Unavailable Insurance Providers Payer name Policy type / Policy ID Covered constitution party ID Policy Gutierrez Coverage type [place]IC[place]: [place] [employer] MEDICARE B-[place]: [employer] Encounters Encounter Performer Location Date Office Visit Higinio Garnett MD [facility] Dec 10, 2014 [place] Allergies, Adverse Reactions, Alerts Type Substance Reaction [...] SHORTNESS OF BREATH Dec 10, 2014 Active Procedures Date Description Comments March 24, 2014 smoking status never smoker Jul 17, 2014 smoking status Never smoker Oct 03, 2014 smoking status Never smoker Oct 26, 2014 smoking status Never smoker Nov 13, 2014 smoking status Never smoker Dec 10, 2014 smoking status Never smoker Medications Medication [...] as needed for nausea/vomiting VITAMIN D (ERGOCALCIFEROL) 42801 Take 1 capsule by mouth April 04, [...] 1 tab daily Oct 03, 2014 Inactive CITALOPRAM HYDROBROMIDE 10 MG TABS 1 tablet daily Dec 10, 2014 Active LUNESTA 3 MG TABS 1 tablet at bedtime as Dec 10, 2014 Active needed for insomnia PROMETHAZINE HCL 25 MG TABS 1 tablet every 8 hours as Dec 10, 2014 Active needed for nausea/vomiting Vital Signs Date Description Test Result March [...] E&M - 8867-4 PULSE RATE 59 /min Results Date Description Test Name Value Reference Interpretation Status Jul 17, hemoglobin, blood HGB 13.6 g/dL 12.0-16.0 2013Jul 17, hematocrit, blood HCT 41.8 % 36.0-48.0 2013Jul 17, platelet count PLATELETS 199 K/CMM 523-586 4511 /mm3 March 26, hemoglobin, blood HGB 9.8 g/dL 12.0-16.0 Low 2013March 26, hematocrit, blood HCT 32.7 % 36.0-48.0 Low 2013March 26, platelet count PLATELETS 268 K/CMM 231-312 3693 /mm3 March 26, erythrocyte ESR 39 mm/hr 0-20 High 2013 sedimentation rate Jul 17, hemoglobin, blood HGB 13.6 g/dL 12.0-16.0 2013Jul 17, hematocrit, blood HCT 41.8 % 36.0-48.0 2013Jul 17, platelet count PLATELETS 199 K/CMM 876-235 4656 /mm3 Jul 17, urine color UA COLOR [...] Jul 17, sodium, serum SODIUM 140 MEQ/L [phone] mmol/L Jul 17, potassium, serum POTASSIUM 3.8 [...] March 26, sodium, serum SODIUM 139 MEQ/L [phone] mmol/L March 26, potassium, serum POTASSIUM 4.1 MEQ/L 3.5-5.1 2013 mmol/L March 26, creatinine, serum CREATININE 0.8 mg/dL 0.5-1.4 2013March 26, urea nitrogen, BUN 11 mg/dL -2013March 26, urea BUN/CREAT 14 null 6-25 2013 [...] Jul 17, sodium, serum SODIUM 140 MEQ/L 042-023 1737 mmol/L Jul 17, potassium, serum POTASSIUM 3.8 [...] 26, antinuclear GIACOMO Positive null Negative Abnormal 2014 antibody
--- OUTSIDE RECORDS SUMMARY | 2018-05-04 07:23 | XMS REPORT | Continuity of Care Document ---
:1975 Author Organization [facility] Care Team Providers Name Role Phone MD Garnett Zenithe Unavailable Unavailable Insurance Providers Payer name Policy type / Policy ID Covered alliance party ID Policy Gutierrez Coverage type MEDIC[place] B-[place]: Med Access[employer] MEDICARE [place]: [employer] Encounters Encounter Performer Location Date Lab Report Higinio Garnett MD [facility] May 09, 2015 [place] Allergies, Adverse Reactions, Alerts Type Substance Reaction [...] 2015 Active INSOMNIA Jan 10, 2015 Active MYALGIA Feb 15, 2015 Active ADJUSTMENT DISORDER WITH DEPRESSED MOOD March 22, 2015 Active CHRONIC PAIN SYNDROME Apr 12, 2015 Active MIGRAINE HEADACHE Apr 12, 2015 Active EASY BRUISABILITY May 09, 2015 Active PHARYNGITIS, ACUTE May 09, 2015 Active Procedures Date Description Comments March 24, 2014 smoking status never smoker Jul 17, 2014 smoking status Never smoker Oct 03, 2014 smoking status Never smoker Oct 26, 2014 smoking status Never smoker Nov 13, 2014 smoking status Never smoker Dec 10, 2014 smoking status Never smoker Jan 10, 2015 smoking status Never smoker Feb 15, 2015 smoking status Never smoker March 22, 2015 smoking status Never smoker Apr 12, 2015 smoking status Never smoker May 09, 2015 smoking status Never smoker Medications Medication [...] as needed for nausea/vomiting VITAMIN D (ERGOCALCIFEROL) 26463 Take 1 capsule by mouth April 04, [...] Dec 18, 2014 Inactive for flu prophylaxis CITALOPRAM HYDROBROMIDE 20 MG TABS 1 tablet daily for mood Dec 10, 2014 Inactive VALIUM 5 MG TABS 1 tablet po nightly as Feb 15, 2015 Active needed for sleep or muscle relaxers FUROSEMIDE 20 MG TABS 1 tablet daily prn swelliing Jan 12, 2015 Inactive ESTAZOLAM 2 MG TABS 1/2 -1 tab nightly prn Jan 10, 2015 Inactive insomnia LUNESTA 3 MG TABS 1 tablet at bedtime as Dec 10, 2014 Inactive needed for insomnia PREDNISONE 20 MG TABS 2 tablets daily x 3 days, Feb 15, 2015 Inactive then 1 tablets daily X 3 days, then 1/2 tablet daily x 8 days, then stop and take 1/2 tab daily only as directed FUROSEMIDE 20 MG TABS 1 tablet daily prn abdominal March 22, 2015 Active or leg swelling POTASSIUM CHLORIDE BANDAR ER 20 MEQ 1 tablet daily with lasix Apr 12, 2015 Active CR-TABS ZOFRAN 4 MG TABS 1-2 tablets every 8 hours as Apr 30, 2015 Inactive needed for nausea/vomiting MEDROL (CHAD) 4 MG TABS Take as directed Apr 12, 2015 Inactive LIDOCAINE VISCOUS 2 % SOLN 5ml swish and swallow every May 09, 2015 Active 6-8 hours as needed for sore throat AUGMENTIN 875-125 MG TABS 1 tablet twice daily for 10 May 09, 2015 Inactive days MEDROL (CHAD) 4 MG TABS Take as directed May 09, 2015 Active DIFLUCAN 150 MG TABS 1 tablet x 1 dose now, May 09, 2015 Inactive repeat dose in 3 days TOPAMAX 100 MG TABS 1 tab po daily Apr 12, 2015 Active MUPIROCIN 2 % OINT apply to affected area three May 09, 2015 Active times daily as needed SERTRALINE HCL 100 MG TABS 1 tablet daily for mood Feb 21, 2015 Active Vital Signs Date Description Test [...] - 8462-4 BP DIASTOLIC 69 mm Hg Feb 15, 2015 height E&M - 8302-2 HEIGHT 65 in Feb 15, 2015 weight E&M - 3141-9 WEIGHT 189 lb Feb 15, 2015 blood pressure, systolic - 8480-6 BP SYSTOLIC 116 mm Hg Feb 15, 2015 pulse rate E&M - 8867-4 PULSE RATE 54 /min Feb 15, 2015 blood pressure, diastolic - 8462-4 BP DIASTOLIC 70 mm Hg Feb 15, 2015 temperature E&M TEMPERATURE 97.3 deg f March 22, 2015 height E&M - 8302-2 HEIGHT 65 in March 22, 2015 weight E&M - 3141-9 WEIGHT 194 lb March 22, 2015 temperature E&M TEMPERATURE 95.9 deg f March 22, 2015 pulse rate E&M - 8867-4 PULSE RATE 49 /min March 22, 2015 blood pressure, systolic - 8480-6 BP SYSTOLIC 125 mm Hg March 22, 2015 blood pressure, diastolic - 8462-4 BP DIASTOLIC 69 mm Hg Apr 12, 2015 weight E&M - 3141-9 WEIGHT 195 lb Apr 12, 2015 temperature E&M TEMPERATURE 98.2 deg f Apr 12, 2015 blood pressure, systolic - 8480-6 BP SYSTOLIC 110 mm Hg Apr 12, 2015 blood pressure, diastolic - 8462-4 BP DIASTOLIC 73 mm Hg Apr 12, 2015 pulse rate E&M - 8867-4 PULSE RATE 72 /min May 09, 2015 height E&M - 8302-2 HEIGHT 65 in May 09, 2015 weight E&M - 3141-9 WEIGHT 197 lb May 09, 2015 temperature E&M TEMPERATURE 97.0 deg f May 09, 2015 pulse rate E&M - 8867-4 PULSE RATE 55 /min May 09, 2015 blood pressure, systolic - 8480-6 BP SYSTOLIC 116 mm Hg May 09, 2015 blood pressure, diastolic - 8462-4 BP DIASTOLIC 61 mm Hg Results Date Description Test Name Value Reference Interpretation Status Jul 17, hemoglobin, blood HGB 13.6 g/dL 12.0-16.0 2013Jul 17, hematocrit, blood HCT 41.8 % 36.0-48.0 2013Jul 17, platelet count PLATELETS 199 K/CMM 210-585 1911 /mm3 March 26, hemoglobin, blood HGB 9.8 g/dL 12.0-16.0 Low 2013March 26, hematocrit, blood HCT 32.7 % 36.0-48.0 Low 2013March 26, platelet count PLATELETS 268 K/CMM 800-292 3896 /mm3 March 26, erythrocyte ESR 39 mm/hr 0-20 High 2013 sedimentation rate Jul 17, hemoglobin, blood HGB 13.6 g/dL 12.0-16.0 2013Jul 17, hematocrit, blood HCT 41.8 % 36.0-48.0 2013Jul 17, platelet count PLATELETS 199 K/CMM 164-474 1713 /mm3 Feb 15, hemoglobin, blood HGB 15.5 g/dL 12.0-16.0 2014Feb 15, hematocrit, blood HCT 46.2 % 36.0-48.0 2014Feb 15, platelet count PLATELETS 220 K/CMM 081-898 0389 /mm3 Feb 15, erythrocyte ESR 6 mm/hr 0-20 2014 sedimentation rate May 09, hemoglobin, blood HGB 13.9 g/dL 12.0-16.0 2014May 09, hematocrit, blood HCT 42.6 % 36.0-48.0 2014May 09, platelet count PLATELETS 227 K/CMM 304-303 3988 /mm3 Jul 17, urine color UA COLOR [...] Jul 17, sodium, serum SODIUM 140 MEQ/L [phone] mmol/L Jul 17, potassium, serum POTASSIUM 3.8 [...] 157 U/L 39-136 High 2013 phosphatase, serum Feb 13, urea nitrogen, BUN 5 mg/dL 6-20 Low 2014 blood Dec 21, creatinine, serum CREATININE 0.58 mg/dL 0.57-1.00 2014Dec 21, urea BUN/CREAT 9 null 8-20 2014 nitrogen/creatinine ratio, serum Dec 21, sodium, serum SODIUM 139 mmol/L [phone] Dec 21, potassium, serum POTASSIUM 4.0 mmol/L [...] March 26, sodium, serum SODIUM 139 MEQ/L [phone] mmol/L March 26, potassium, serum POTASSIUM 4.1 [...] Jul 17, sodium, serum SODIUM 140 MEQ/L [phone] mmol/L Jul 17, potassium, serum POTASSIUM 3.8 [...] alkaline ALK PHOS 157 U/L 39-136 High 2014 phosphatase, serum Dec 21, urea nitrogen, BUN 5 mg/dL 6-20 Low 2014 blood Dec 21, creatinine, serum CREATININE 0.58 mg/dL 0.57-1.00 2014Dec 21, urea BUN/CREAT 9 null 8-20 2014 nitrogen/creatinine ratio, serum Dec 21, sodium, serum SODIUM 139 mmol/L [phone] Dec 21, potassium, serum POTASSIUM 4.0 mmol/L [...] 22, testosterone, TESTO, FREE 0.2 pg/mL 0.0-2.2 2015 serum, free Dec 21, gamma glutamyl GGT 35 U/L 0-60 2014 transferase, serum Feb 15, phosphate, serum PO4 3.1 mg/dL 2.5-4.5 2014Feb 15, creatine kinase, CPK 86 U/L 12-191 2014 serum Feb 15, magnesium, serum MAGNESIUM 2.0 mg/dL 1.8-2.4 2014Feb 15, sodium, serum SODIUM 135 MEQ/L [phone] mmol/L Feb 15, potassium, serum POTASSIUM 3.8 MEQ/L 3.5-5.1 2014 mmol/L Feb 15, creatinine, serum CREATININE 0.8 mg/dL 0.5-1.4 2014Feb 15, urea nitrogen, BUN 10 mg/dL 7-2014 blood Feb 15, urea BUN/CREAT 12 null 6-25 2014 nitrogen/creatinine ratio, serum Feb 15, albumin, serum ALBUMIN 4.0 g/dL 3.5-5.0 2014Feb 15, calcium, serum CALCIUM 9.1 mg/dL 8.5-10.5 2014Feb 15, alanine SGPT (ALT) 95 U/L 0-65 High 2014 aminotransferase (SGPT), serum Feb 15, aspartate SGOT (AST) 66 U/L 0-37 High 2014 aminotransferase (SGOT), serum Feb 15, alkaline ALK PHOS 230 U/L 39-136 High 2014 phosphatase, serum May 09, sodium, serum SODIUM 140 MEQ/L 216-732 9081 mmol/L May 09, potassium, serum POTASSIUM 3.7 MEQ/L 3.5-5.1 2014 mmol/L May 09, creatinine, serum CREATININE 0.8 mg/dL 0.5-1.4 2014May 09, urea nitrogen, BUN 7 mg/dL 7-22 2014 blood May 09, urea BUN/CREAT 9 null 6-25 2014 nitrogen/creatinine ratio, serum May 09, albumin, serum ALBUMIN 3.7 g/dL 3.5-5.0 2014May 09, calcium, serum CALCIUM 8.7 mg/dL 8.5-10.5 2014May 09, alanine SGPT (ALT) 63 U/L 0-65 2014 aminotransferase (SGPT), serum May 09, aspartate SGOT (AST) 32 U/L 0-37 2014 aminotransferase (SGOT), serum May 09, alkaline ALK PHOS 180 U/L 39-136 High 2014 phosphatase, serum March 26, antinuclear GIACOMO Positive null Negative Abnormal 2013 antibody
--- OUTSIDE RECORDS SUMMARY | 2018-05-04 07:23 | XMS REPORT | Continuity of Care Document ---
:1975 Author Organization [facility] Care Team Providers Name Role Phone MD Garnett Zenithe Unavailable Unavailable Insurance Providers Payer name Policy type / Policy ID Covered libertarian ID Policy Gutierrez Coverage type [place]: [employer] MEDICARE B-[place]: [employer] Encounters Encounter Performer Location Date Office Visit Higinio Garnett MD [facility] Nov 13, 2014 [place] Allergies, Adverse Reactions, Alerts Type Substance Reaction [...] Nov 13, 2014 smoking status Never smoker Medications Medication [...] as needed for nausea/vomiting VITAMIN D (ERGOCALCIFEROL) 80393 Take 1 capsule by mouth April 04, [...] - 8462-4 BP DIASTOLIC 76 mm Hg Results Date Description Test Name Value Reference Interpretation Status Jul 17, hemoglobin, blood HGB 13.6 g/dL 12.0-16.0 2013Jul 17, hematocrit, blood HCT 41.8 % 36.0-48.0 2013Jul 17, platelet count PLATELETS 199 K/CMM 816-322 3472 /mm3 March 26, hemoglobin, blood HGB 9.8 g/dL 12.0-16.0 Low 2013March 26, hematocrit, blood HCT 32.7 % 36.0-48.0 Low 2013March 26, platelet count PLATELETS 268 K/CMM [phone] /mm3 March 26, erythrocyte ESR 39 mm/hr 0-20 High 2014 sedimentation rate Jul 17, hemoglobin, blood HGB 13.6 g/dL 12.0-16.0 2013Jul 17, hematocrit, blood HCT 41.8 % 36.0-48.0 2013Jul 17, platelet count PLATELETS 199 K/CMM 268-089 2247 /mm3 Jul 17, urine color UA COLOR [...] URN Occasional None Seen 2014 microscopy null Jul 17, sodium, serum SODIUM 140 MEQ/L 883-735 2331 mmol/L Jul 17, potassium, serum POTASSIUM 3.8 MEQ/L 3.5-5.1 2013 mmol/L Jul 17, creatinine, serum CREATININE 0.6 mg/dL 0.5-1.4 2013Jul 17, urea nitrogen, BUN 7 mg/dL -2013 blood Jul 17, urea BUN/CREAT 12 null -2013 nitrogen/creatinine ratio, serum Jul 17, albumin, serum [...] March 26, sodium, serum SODIUM 139 MEQ/L 243-221 5515 mmol/L March 26, potassium, serum POTASSIUM 4.1 [...] Jul 17, sodium, serum SODIUM 140 MEQ/L [phone] mmol/L Jul 17, potassium, serum POTASSIUM 3.8 MEQ/L 3.5-5.1 2013 mmol/L Jul 17, creatinine, serum CREATININE 0.6 mg/dL 0.5-1.4 2013Jul 17, urea nitrogen, BUN 7 mg/dL 7-2013 blood Jul 17, urea BUN/CREAT 12 null [...]
--- OUTSIDE RECORDS SUMMARY | 2018-05-04 07:23 | XMS REPORT | Continuity of Care Document ---
:[address] [facility] [place] [place] Care Team Providers Name Role Phone MD Garnett Zenithe Unavailable Unavailable Insurance Providers Payer name Policy type / Policy ID Covered constitution party ID Policy Gutierrez Coverage type MEDIC[place]: [employer] MEDICARE B-[place]: [employer] Encounters Encounter Performer Location Date Lab Report Higinio Garnett MD [facility] [place] [place] - Dec 20, 2014 [place] Allergies, Adverse Reactions, Alerts Type Substance Reaction [...] as needed for nausea/vomiting VITAMIN D (ERGOCALCIFEROL) 01757 Take 1 capsule by mouth April 04, [...] 1 tablet daily Dec 10, 2014 Active PROMETHAZINE HCL 25 MG TABS 1 tablet every 8 hours as Dec 10, 2014 Inactive needed for nausea/vomiting TAMIFLU 75 MG CAPS 1 capsule daily x 10 days Dec 18, 2014 Inactive for flu prophylaxis LUNESTA 3 MG TABS 1 tablet at bedtime as Dec 10, 2014 Active needed for insomnia Vital Signs Date Description Test Result March [...] 2013Jul 17, platelet count PLATELETS 199 K/CMM 465-245 9442 /mm3 March 26, hemoglobin, blood HGB 9.8 g/dL 12.0-16.0 Low 2013March 26, hematocrit, blood HCT 32.7 % 36.0-48.0 Low 2013March 26, platelet count PLATELETS 268 K/CMM 104-223 9483 /mm3 March 26, erythrocyte ESR 39 mm/hr 0-20 High 2013 sedimentation rate Jul 17, hemoglobin, blood HGB 13.6 g/dL 12.0-16.0 2013Jul 17, hematocrit, blood HCT 41.8 % 36.0-48.0 2013Jul 17, platelet count PLATELETS 199 K/CMM 854-422 6463 /mm3 Jul 17, urine color UA COLOR [...] Jul 17, sodium, serum SODIUM 140 MEQ/L 718-574 3299 mmol/L Jul 17, potassium, serum POTASSIUM 3.8 [...] urea nitrogen, BUN 5 mg/dL 6-20 Low 2015 blood Dec 21, creatinine, serum CREATININE 0.58 mg/dL 0.57-1.00 2014Dec 21, urea BUN/CREAT 9 null 8-20 2014 nitrogen/creatinine ratio, serum Dec 21, sodium, serum SODIUM 139 mmol/L 026-563 2776 Dec 21, potassium, serum POTASSIUM 4.0 mmol/L [...] March 26, sodium, serum SODIUM 139 MEQ/L 988-863 3923 mmol/L March 26, potassium, serum POTASSIUM 4.1 [...] Jul 17, sodium, serum SODIUM 140 MEQ/L [phone] mmol/L Jul 17, potassium, serum POTASSIUM 3.8 [...] Dec 21, sodium, serum SODIUM 139 mmol/L [phone] Dec 21, potassium, serum POTASSIUM 4.0 mmol/L 3.5-5.2 2014Dec 21, calcium, serum CALCIUM 8.8 mg/dL 8.7-10.2 2014Dec 21, albumin, serum ALBUMIN 3.9 g/dL 3.5-5.5 2014Dec 21, alkaline ALK PHOS 164 U/L 39-117 High 2014 phosphatase, serum Dec 21, aspartate SGOT (AST) 61 U/L 0-40 High 2014 aminotransferase (SGOT), serum Dec 21, alanine SGPT (ALT) 50 U/L 0-32 High 2014 aminotransferase (SGPT), serum Dec 13, testosterone, total TESTO, TOTAL <3 ng/dL 8-48 Low 2014 ng/dL Dec 14, testosterone, TESTO, FREE 0.2 pg/mL 0.0-2.2 2014 serum, free Dec 21, gamma glutamyl GGT 35 U/L 0-60 2014 transferase, serum March 26, antinuclear GIACOMO Positive null Negative Abnormal 2013 antibody
--- OUTSIDE RECORDS SUMMARY | 2018-05-04 07:24 | XMS REPORT | Continuity of Care Document ---
:1975 Author Organization [facility] Care Team Providers Name Role Phone MD Garnett Zenithe Unavailable Unavailable Insurance Providers Payer name Policy type / Policy ID Covered democrat ID Policy Gutierrez Coverage type MEDICARE [place]: [employer] MEDICARE B-[place]: [employer] Encounters Encounter Performer Location Date Lab Report Higinio Garnett MD [facility] Apr 11, 2015 Allergies, Adverse Reactions, Alerts Type Substance Reaction [...] WITH DEPRESSED MOOD March 22, 2015 Active Procedures Date Description Comments March [...] March 22, 2015 smoking status Never smoker Medications Medication [...] as needed for nausea/vomiting VITAMIN D (ERGOCALCIFEROL) 90419 Take 1 capsule by mouth April 04, [...] take 1/2 tab daily only as directed SERTRALINE HCL 50 MG TABS 1 tab daily for mood Feb 21, 2015 Active FUROSEMIDE 20 MG TABS 1 tablet daily prn abdominal March 22, 2015 Active or leg swelling POTASSIUM CHLORIDE BANDAR ER 20 MEQ 1 tablet daily with lasix Apr 12, 2015 Active CR-TABS MEDROL (CHAD) 4 MG TABS Take as directed Apr 12, 2015 Active TOPAMAX 50 MG TABS 1/2 tab daily x 1 week, then Apr 12, 2015 Active increase 1 tab daily Vital Signs Date Description Test Result March [...] 77 mm Hg Jul 17, 2014 weight Lynnette&Christie - 3141-9 WEIGHT 231 lb Jul 17, [...] HEIGHT 65 in Oct 03, 2014 weight E&Christie - 3141-9 WEIGHT 215 lb Oct 03, [...] E&M - 8867-4 PULSE RATE 72 /min Results Date Description Test Name Value Reference Interpretation Status Jul 17, hemoglobin, blood HGB 13.6 g/dL 12.0-16.0 2013Jul 17, hematocrit, blood HCT 41.8 % 36.0-48.0 2013Jul 17, platelet count PLATELETS 199 K/CMM 308-581 7150 /mm3 March 26, hemoglobin, blood HGB 9.8 g/dL 12.0-16.0 Low 2013March 26, hematocrit, blood HCT 32.7 % 36.0-48.0 Low 2013March 26, platelet count PLATELETS 268 K/CMM 929-968 9477 /mm3 March 26, erythrocyte ESR 39 mm/hr 0-20 High 2014 sedimentation rate Jul 17, hemoglobin, blood HGB 13.6 g/dL 12.0-16.0 2013Jul 17, hematocrit, blood HCT 41.8 % 36.0-48.0 2013Jul 17, platelet count PLATELETS 199 K/CMM 038-573 9770 /mm3 Feb 15, hemoglobin, blood HGB 15.5 g/dL 12.0-16.0 2014Feb 15, hematocrit, blood HCT 46.2 % 36.0-48.0 2014Feb 15, platelet count PLATELETS 220 K/CMM 748-385 5799 /mm3 Feb 15, erythrocyte ESR 6 mm/hr 0-20 2014 sedimentation rate Jul 17, urine color UA COLOR Yellow [...] Jul 17, sodium, serum SODIUM 140 MEQ/L [phone] mmol/L Jul 17, potassium, serum POTASSIUM 3.8 [...] Dec 21, sodium, serum SODIUM 139 mmol/L [phone] Dec 21, potassium, serum POTASSIUM 4.0 mmol/L [...] March 26, sodium, serum SODIUM 139 MEQ/L 380-199 0216 mmol/L March 26, potassium, serum POTASSIUM 4.1 [...] Jul 17, sodium, serum SODIUM 140 MEQ/L 804-215 0203 mmol/L Jul 17, potassium, serum POTASSIUM 3.8 [...] 5 mg/dL 6-20 Low 2014 blood Dec 13, creatinine, serum CREATININE 0.58 mg/dL 0.57-1.00 2014Dec 21, urea BUN/CREAT 9 null 8-20 2014 nitrogen/creatinine ratio, serum Dec 21, sodium, serum SODIUM 139 mmol/L [phone] Dec 21, potassium, serum POTASSIUM 4.0 mmol/L [...] <3 ng/dL 8-48 Low 2015 ng/dL Dec 14, testosterone, TESTO, FREE 0.2 pg/mL 0.0-2.2 2015 serum, free Dec 21, gamma glutamyl GGT 35 U/L 0-60 2014 transferase, serum Feb 10, phosphate, serum PO4 3.1 mg/dL 2.5-4.5 2014Feb 15, creatine kinase, CPK 86 U/L 12-191 2014 serum Feb 10, magnesium, serum MAGNESIUM 2.0 mg/dL 1.8-2.4 2014Feb 15, sodium, serum SODIUM 135 MEQ/L [phone] mmol/L Feb 15, potassium, serum POTASSIUM 3.8 MEQ/L 3.5-5.1 2014 mmol/L Feb 15, creatinine, serum CREATININE 0.8 mg/dL 0.5-1.4 2014Feb 15, urea nitrogen, BUN 10 mg/dL 7-22 2014 blood Apr 10, urea BUN/CREAT 12 null 6-25 2014 nitrogen/creatinine ratio, serum Apr , albumin, serum ALBUMIN 4.0 g/dL 3.5-5.0 2014Feb 15, calcium, serum CALCIUM 9.1 mg/dL 8.5-10.5 2014Feb 15, alanine SGPT (ALT) 95 U/L 0-65 High 2014 aminotransferase (SGPT), serum Feb 15, aspartate SGOT (AST) 66 U/L 0-37 High 2014 aminotransferase (SGOT), serum Feb 15, alkaline ALK PHOS 230 U/L 39-136 High 2014 phosphatase, serum March 26, antinuclear GIACOMO Positive null Negative Abnormal 2013 antibody
--- OUTSIDE RECORDS SUMMARY | 2018-05-04 07:24 | XMS REPORT | Continuity of Care Document ---
:1975 Author Organization [facility] Care Team Providers Name Role Phone MD Garnett Zenithe Unavailable Unavailable Insurance Providers Payer name Policy type / Policy ID Covered democrat ID Policy Gutierrez Coverage type [place]: [employer] MEDICARE B-[place]: [employer] Encounters Encounter Performer Location Date Lab Report Higinio Garnett MD [facility] Feb 15, 2015 [place] Allergies, Adverse Reactions, Alerts Type Substance Reaction [...] 2015 Active MYALGIA Feb 15, 2015 Active Procedures Date Description Comments March 24, 2014 smoking status never smoker Jul 17, 2014 smoking status Never smoker Oct 03, 2014 smoking status Never smoker Oct 26, 2014 smoking status Never smoker Nov 13, 2014 smoking status Never smoker Dec 10, 2014 smoking status Never smoker Jan 10, 2015 smoking status Never smoker Feb 15, 2015 smoking status Never smoker Medications Medication [...] as needed for nausea/vomiting VITAMIN D (ERGOCALCIFEROL) 20412 Take 1 capsule by mouth April 04, [...] daily x 3 days, Feb 15, 2015 Active then 1 tablets daily X 3 days, then 1/2 tablet daily x 8 days, then stop and take 1/2 tab daily only as directed Vital Signs Date Description Test Result March [...] 2015 temperature E&M TEMPERATURE 97.3 deg f Results Date Description Test Name Value Reference Interpretation Status Jul 17, hemoglobin, blood HGB 13.6 g/dL 12.0-16.0 2013Jul 17, hematocrit, blood HCT 41.8 % 36.0-48.0 2013Jul 17, platelet count PLATELETS 199 K/CMM [phone] /mm3 March 26, hemoglobin, blood HGB 9.8 g/dL 12.0-16.0 Low 2013March 26, hematocrit, blood HCT 32.7 % 36.0-48.0 Low 2013March 26, platelet count PLATELETS 268 K/CMM 733-314 3761 /mm3 March 26, erythrocyte ESR 39 mm/hr 0-20 High 2013 sedimentation rate Jul 17, hemoglobin, blood HGB 13.6 g/dL 12.0-16.0 2013Jul 17, hematocrit, blood HCT 41.8 % 36.0-48.0 2013Jul 17, platelet count PLATELETS 199 K/CMM 134-666 4356 /mm3 Feb 15, hemoglobin, blood HGB 15.5 g/dL 12.0-16.0 2014Feb 15, hematocrit, blood HCT 46.2 % 36.0-48.0 2014Feb 15, platelet count PLATELETS 220 K/CMM 807-690 8908 /mm3 Feb 15, erythrocyte ESR 6 mm/hr [...] Jul 17, sodium, serum SODIUM 140 MEQ/L [phone] mmol/L Jul 17, potassium, serum POTASSIUM 3.8 MEQ/L 3.5-5.1 2013 mmol/L Jul 17, creatinine, serum CREATININE 0.6 mg/dL 0.5-1.4 2013Jul 17, urea nitrogen, BUN 7 mg/dL -2013 blood Jul 17, urea BUN/CREAT 12 null 6-2013 nitrogen/creatinine ratio, serum Jul 17, albumin, serum [...] 2014Dec 21, urea BUN/CREAT 9 null 8-20 2015 nitrogen/creatinine ratio, serum Dec 21, sodium, serum SODIUM 139 mmol/L [phone] Dec 21, potassium, serum POTASSIUM 4.0 mmol/L [...] March 26, sodium, serum SODIUM 139 MEQ/L [phone] mmol/L March 26, potassium, serum POTASSIUM 4.1 [...] Jul 17, sodium, serum SODIUM 140 MEQ/L [phone] mmol/L Jul 17, potassium, serum POTASSIUM 3.8 [...] BUN 5 mg/dL 6-20 Low 2014 blood Feb , creatinine, serum CREATININE 0.58 mg/dL 0.57-1.00 2014Dec 21, urea BUN/CREAT 9 null 8-20 2014 nitrogen/creatinine ratio, serum Dec 21, sodium, serum SODIUM 139 mmol/L [phone] Dec 21, potassium, serum POTASSIUM 4.0 mmol/L [...] FREE 0.2 pg/mL 0.0-2.2 2014 serum, free Feb 13, gamma glutamyl GGT 35 U/L 0-60 2014 transferase, serum Feb 10, phosphate, serum PO4 3.1 mg/dL 2.5-4.5 2014Feb 15, creatine kinase, CPK 86 U/L 12-191 2014 serum Feb 15, magnesium, serum MAGNESIUM 2.0 mg/dL 1.8-2.4 2014Feb 15, sodium, serum SODIUM 135 MEQ/L 384-872 6829 mmol/L Feb 15, potassium, serum POTASSIUM 3.8 MEQ/L 3.5-5.1 2014 mmol/L Feb 15, creatinine, serum CREATININE 0.8 mg/dL 0.5-1.4 2014Feb 15, urea nitrogen, BUN 10 mg/dL 7-22 2014 blood Feb 15, urea BUN/CREAT 12 null 6-25 2014 nitrogen/creatinine ratio, serum Feb 15, albumin, serum ALBUMIN 4.0 g/dL 3.5-5.0 2014Feb 15, calcium, serum CALCIUM 9.1 mg/dL 8.5-10.5 2014Feb 15, alanine SGPT (ALT) 95 U/L 0-65 High 2014 aminotransferase (SGPT), serum Feb 15, aspartate SGOT (AST) 66 U/L 0-37 High 2014 aminotransferase (SGOT), serum Feb 10, alkaline ALK PHOS 230 U/L 39-136 High 2014 phosphatase, serum March 26, antinuclear GIACOMO Positive null Negative Abnormal 2013 antibody
--- OUTSIDE RECORDS SUMMARY | 2018-05-04 07:24 | XMS REPORT | Continuity of Care Document ---
:1975 Author Organization [facility] Care Team Providers Name Role Phone MD Garnett Zenithe Unavailable Unavailable Insurance Providers Payer name Policy type / Policy ID Covered green party ID Policy Gutierrez Coverage type [place]: [email or web address] MED[place]: [email or web address] Encounters Encounter Performer Location Date Office Visit Higinio Garnett MD [facility] March 22, 2015 [place] Allergies, Adverse Reactions, Alerts Type Substance Reaction [...] as needed for nausea/vomiting VITAMIN D (ERGOCALCIFEROL) 52852 Take 1 capsule by mouth April 04, [...] March 22, 2015 Active or leg swelling Vital Signs Date Description Test Result March 24, 2014 weight Jerrell - 3141-9 WEIGHT 251 lb March 24, [...] HEIGHT 65 in Oct 03, 2014 weight Lynnette&Christie - 3141-9 WEIGHT 215 lb Oct 03, [...] HEIGHT 65 in Oct 26, 2014 weight Lynnette&Christie - 3141-9 WEIGHT 206 lb Oct 26, 2014 pulse rate E&M - 8867-4 PULSE RATE 54 /min Oct 26, 2014 blood pressure, systolic - 8480-6 BP SYSTOLIC 125 mm Hg Oct 26, 2014 blood pressure, diastolic - 8462-4 BP DIASTOLIC 71 mm Hg Oct 26, 2014 temperature E&M TEMPERATURE 98.1 deg f Nov 13, 2014 weight Lynnette&Christie - 3141-9 WEIGHT 201 lb Nov 13, [...] HEIGHT 65 in Feb 15, 2015 weight E&Christie - 3141-9 WEIGHT 189 lb Feb 15, [...] HEIGHT 65 in March 22, 2015 weight E&Christie - 3141-9 WEIGHT 194 lb March 22, [...] 2013Jul 17, platelet count PLATELETS 199 K/CMM [phone] /mm3 March 26, hemoglobin, blood HGB 9.8 g/dL 12.0-16.0 Low 2013March 26, hematocrit, blood HCT 32.7 % 36.0-48.0 Low 2013March 26, platelet count PLATELETS 268 K/CMM [phone] /mm3 March 26, erythrocyte ESR 39 mm/hr 0-20 High 2013 sedimentation rate Jul 17, hemoglobin, blood HGB 13.6 g/dL 12.0-16.0 2013Jul 17, hematocrit, blood HCT 41.8 % 36.0-48.0 2013Jul 17, platelet count PLATELETS 199 K/CMM 139-591 9797 /mm3 Feb 15, hemoglobin, blood HGB 15.5 g/dL 12.0-16.0 2014Feb 15, hematocrit, blood HCT 46.2 % 36.0-48.0 2014Feb 15, platelet count PLATELETS 220 K/CMM 475-326 6649 /mm3 Feb 15, erythrocyte ESR 6 mm/hr [...] Jul 17, sodium, serum SODIUM 140 MEQ/L [phone] mmol/L Jul 17, potassium, serum POTASSIUM 3.8 [...] Dec 21, sodium, serum SODIUM 139 mmol/L [phone] Dec 21, potassium, serum POTASSIUM 4.0 mmol/L [...] March 26, sodium, serum SODIUM 139 MEQ/L [phone] mmol/L March 26, potassium, serum POTASSIUM 4.1 [...] Jul 17, sodium, serum SODIUM 140 MEQ/L [phone] mmol/L Jul 17, potassium, serum POTASSIUM 3.8 [...] alanine SGPT (ALT) 85 U/L 0-65 High 2014 aminotransferase (SGPT), serum Jul 17, aspartate SGOT (AST) 46 U/L 0-37 High 2014 aminotransferase (SGOT), serum Jul 17, alkaline ALK PHOS 157 U/L 39-136 High 2013 phosphatase, serum Dec 21, urea nitrogen, BUN 5 mg/dL 6-20 Low 2014 blood Dec 21, creatinine, serum CREATININE 0.58 mg/dL 0.57-1.00 2014Dec 21, urea BUN/CREAT 9 null 8-20 2014 nitrogen/creatinine ratio, serum Dec 21, sodium, serum SODIUM 139 mmol/L [phone] Dec 21, potassium, serum POTASSIUM 4.0 mmol/L [...] 2014Feb 15, sodium, serum SODIUM 135 MEQ/L [phone] mmol/L Feb 15, potassium, serum POTASSIUM 3.8 [...]
--- OUTSIDE RECORDS SUMMARY | 2018-05-04 07:25 | XMS REPORT | Continuity of Care Document ---
:1975 Author Organization [facility] Care Team Providers Name Role Phone MD Garnett Zenithe Unavailable Unavailable Insurance Providers Payer name Policy type / Policy ID Covered libertarian ID Policy Gutierrez Coverage type MED[place]: [employer] MEDICARE [place]: [employer] Encounters Encounter Performer Location Date Office Visit Higinio Garnett MD [facility] Apr 12, 2015 [place] Allergies, Adverse Reactions, Alerts Type Substance Reaction [...] Active MIGRAINE HEADACHE Apr 12, 2015 Active Procedures Date Description Comments March [...] Apr 12, 2015 smoking status Never smoker Medications Medication [...] as needed for nausea/vomiting VITAMIN D (ERGOCALCIFEROL) 83982 Take 1 capsule by mouth April 04, [...] 2013Jul 17, platelet count PLATELETS 199 K/CMM [phone] /mm3 March 26, hemoglobin, blood HGB 9.8 g/dL 12.0-16.0 Low 2013March 26, hematocrit, blood HCT 32.7 % 36.0-48.0 Low 2013March 26, platelet count PLATELETS 268 K/CMM 124-062 3770 /mm3 March 26, erythrocyte ESR 39 mm/hr 0-20 High 2014 sedimentation rate Jul 17, hemoglobin, blood HGB 13.6 g/dL 12.0-16.0 2013Jul 17, hematocrit, blood HCT 41.8 % 36.0-48.0 2013Jul 17, platelet count PLATELETS 199 K/CMM [phone] /mm3 Feb 15, hemoglobin, blood HGB 15.5 g/dL 12.0-16.0 2014Feb 15, hematocrit, blood HCT 46.2 % 36.0-48.0 2014Feb 15, platelet count PLATELETS 220 K/CMM 372-027 2741 /mm3 Feb 15, erythrocyte ESR 6 mm/hr [...] Jul 17, sodium, serum SODIUM 140 MEQ/L 319-165 8683 mmol/L Jul 17, potassium, serum POTASSIUM 3.8 [...] Dec 21, sodium, serum SODIUM 139 mmol/L [phone] Dec 21, potassium, serum POTASSIUM 4.0 mmol/L [...] HDL cholesterol, HDL 42 mg/dl >=61 Low 2013March 26, LDL cholesterol, LDL 137 mg/dl <=99 High 2013March 26, sodium, serum SODIUM 139 MEQ/L [phone] mmol/L March 26, potassium, serum POTASSIUM 4.1 [...] Jul 17, sodium, serum SODIUM 140 MEQ/L 149-587 4990 mmol/L Jul 17, potassium, serum POTASSIUM 3.8 [...] 5 mg/dL 6-20 Low 2014 blood Feb 13, creatinine, serum CREATININE 0.58 mg/dL 0.57-1.00 2014Dec 21, urea BUN/CREAT 9 null 8-20 2014 nitrogen/creatinine ratio, serum Dec 21, sodium, serum SODIUM 139 mmol/L [phone] Dec 21, potassium, serum POTASSIUM 4.0 mmol/L [...] kinase, CPK 86 U/L 12-191 2014 serum Apr 10, magnesium, serum MAGNESIUM 2.0 mg/dL 1.8-2.4 2014Feb 15, sodium, serum SODIUM 135 MEQ/L 198-691 2347 mmol/L Feb 15, potassium, serum POTASSIUM 3.8 MEQ/L 3.5-5.1 2014 mmol/L Feb 15, creatinine, serum CREATININE 0.8 mg/dL 0.5-1.4 2014Feb 15, urea nitrogen, BUN 10 mg/dL 7-22 2014 blood Apr 10, urea BUN/CREAT 12 null 6-25 2014 nitrogen/creatinine ratio, serum Apr 10, albumin, serum ALBUMIN 4.0 g/dL 3.5-5.0 2014Feb [...]
--- OUTSIDE RECORDS SUMMARY | 2018-05-04 07:25 | XMS REPORT | Continuity of Care Document ---
:1975 Author Organization [facility] Care Team Providers Name Role Phone MD Garnett Zenithe Unavailable Unavailable Insurance Providers Payer name Policy type / Policy ID Covered libertarian ID Policy Gutierrez Coverage type [place]: [employer] MEDICARE [place]: [employer] Encounters Encounter Performer Location Date Office Visit Higinio Garnett MD [facility] May 09, 2015 [place] Allergies, Adverse Reactions, Alerts Type Substance Reaction [...] as needed for nausea/vomiting VITAMIN D (ERGOCALCIFEROL) 44280 Take 1 capsule by mouth April 04, [...] twice daily for 10 May 09, 2015 Active days MEDROL (CHAD) 4 MG TABS Take as directed May 09, 2015 Active DIFLUCAN 150 MG TABS 1 tablet x 1 dose now, May 09, 2015 Active repeat dose in 3 days TOPAMAX 100 MG TABS 1 tab po daily Apr 12, 2015 Active MUPIROCIN 2 % OINT apply to affected area three May 09, 2015 Active times daily as needed Vital Signs Date Description Test Result March [...] 2013Jul 17, platelet count PLATELETS 199 K/CMM 032-101 4516 /mm3 March 26, hemoglobin, blood HGB 9.8 g/dL 12.0-16.0 Low 2013March 26, hematocrit, blood HCT 32.7 % 36.0-48.0 Low 2013March 26, platelet count PLATELETS 268 K/CMM 121-331 1609 /mm3 March 26, erythrocyte ESR 39 mm/hr 0-20 High 2013 sedimentation rate Jul 17, hemoglobin, blood HGB 13.6 g/dL 12.0-16.0 2013Jul 17, hematocrit, blood HCT 41.8 % 36.0-48.0 2013Jul 17, platelet count PLATELETS 199 K/CMM 594-237 2207 /mm3 Feb 15, hemoglobin, blood HGB 15.5 g/dL 12.0-16.0 2014Feb 15, hematocrit, blood HCT 46.2 % 36.0-48.0 2014Feb 15, platelet count PLATELETS 220 K/CMM 451-447 0887 /mm3 Feb 15, erythrocyte ESR 6 mm/hr 0-20 2014 sedimentation rate May 09, hemoglobin, blood HGB 13.9 g/dL 12.0-16.0 2014May 09, hematocrit, blood HCT 42.6 % 36.0-48.0 2014May 09, platelet count PLATELETS 227 K/CMM 744-200 2360 /mm3 Jul 17, urine color UA COLOR [...] Jul 17, sodium, serum SODIUM 140 MEQ/L 824-355 8243 mmol/L Jul 17, potassium, serum POTASSIUM 3.8 [...] Dec 21, sodium, serum SODIUM 139 mmol/L [phone] Dec 21, potassium, serum POTASSIUM 4.0 mmol/L [...] March 26, sodium, serum SODIUM 139 MEQ/L 659-163 2234 mmol/L March 26, potassium, serum POTASSIUM 4.1 [...] Jul 17, sodium, serum SODIUM 140 MEQ/L [phone] mmol/L Jul 17, potassium, serum POTASSIUM 3.8 [...] Dec 21, sodium, serum SODIUM 139 mmol/L [phone] Dec 21, potassium, serum POTASSIUM 4.0 mmol/L [...] 2014Feb 15, sodium, serum SODIUM 135 MEQ/L [phone] mmol/L Feb 15, potassium, serum POTASSIUM 3.8 [...] May 09, sodium, serum SODIUM 140 MEQ/L 628-024 2031 mmol/L May 09, potassium, serum POTASSIUM 3.7 [...]
--- NOTE | 2018-05-04 08:20 | ER ---
Nurse's Notes [facility] Name: Liza Dexter Age: 42 yrs Sex: Female : 1975 Arrival Date: 05/04/2018 Time: 07:19 Bed 7 Private MD: out of town, doctor Diagnosis: Chest pain, unspecified;Functional dyspepsia;Raynaud's syndrome;Systemic sclerosis [scleroderma] Presentation: 05/04 07:48 Presenting complaint: Patient states: has been having episodic chest pain for past iw month, increasing pain over past week, worse last night, has hx of scleroderma and has had surgery on esophagus in past, was seen by her cardiothoracic doctor last week and had barium swallow and endoscopy done, was told that it was not a GI issue, pt describes pain as stabbing pain to midsternal area, burning pain to upper back, also has numbness to arms and legs. Transition of care: patient was not received from another setting of care. Onset of symptoms was April 27, 2018. Risk Assessment: Do you want to hurt yourself or someone else? Patient reports no desire to harm self or others. Initial Sepsis Screen: Does the patient meet any 2 criteria? No. Patient's initial sepsis screen is negative. Does the patient have a suspected source of infection? No. Patient's initial sepsis screen is negative. Care prior to arrival: None. 07:48 Method Of Arrival: Wheelchair iw 07:48 Acuity: JUAN 3 iw Triage Assessment: 12:28 General: Appears in no apparent distress. Behavior is calm, cooperative. iw Historical: - Allergies: 08:00 ambien; iw 08:00 CEPHALOSPORINS; iw 08:00 Codeine; iw 08:00 Demerol; iw 08:00 Morphine; iw 08:00 Nexium; iw 17:16 Zofran; ph - Home Meds: 08:00 Topamax 200 mg Oral tab 1 tab 2 times per day [Active]; Phenergan Oral 50 mg as needed iw [Active]; vitamin b12 injection weekly [Active]; diazepam 10 mg Oral tab as needed [Active]; Adderall XR 20 mg Oral cp24 1 cap once daily [Active]; hydrocodone-acetaminophen 10-500 mg Oral tab as needed [Active]; amlodipine 5 mg tab 1 tab once daily [Active]; spironolactone 25 mg Oral tab 1 tab once daily [Active]; furosemide 20 mg Oral tab 1 tab once daily [Active]; - PMHx: 08:00 chron's; Colitis; Scleroderma; Seizures; Anemia; Raynaud's syndrome; iw - PSHx: 08:00 Stomach Surgery; Esophagus Surgery; Hernia repair; iw - Immunization history:: Adult Immunizations. - Social history:: Smoking status: Patient/guardian denies using tobacco. - Family history:: not pertinent. - Ebola Screening: : No symptoms or risks identified at this time. Screenin:29 Abuse screen: Denies threats or abuse. Denies injuries from another. Nutritional ph screening: No deficits noted. Tuberculosis screening: No symptoms or risk factors identified. Fall Risk None identified. Assessment: 07:35 General: Appears in no apparent distress. uncomfortable, obese, well groomed, Behavior ph is calm, cooperative, appropriate for age, Denies fever. Pain: Complains of pain in xyphoid area Pain radiates to diaphragm and back Quality of pain is described as sharp, Pain began " about 3- 4 weeks ago" Is episodic. Neuro: Level of Consciousness is awake, alert, obeys commands, Oriented to person, place, time, situation, Denies dizziness, headache. Cardiovascular: Reports chest pain, nausea, shortness of breath, Denies palpitations, syncope, vomiting, Capillary refill < 3 seconds in bilateral fingers Patient's skin is warm and dry. Rhythm is sinus rhythm Chest pain quality is sharp, is located in epigastric area substernal area radiates back. Respiratory: GI: Reports nausea, Patient currently denies abdominal pain, diarrhea, vomiting. Derm: Skin is intact, is healthy with good turgor, Skin is pink, warm \\T\\ dry. 08:30 Reassessment: Patient appears in no apparent distress at this time. Patient and/or ph family updated on plan of care and expected duration. Pain level reassessed. Patient is alert, oriented x 3, equal unlabored respirations, skin warm/dry/pink. 09:27 Reassessment: Patient appears in no apparent distress at this time. Patient and/or ph family updated on plan of care and expected duration. Pain level reassessed. Patient is alert, oriented x 3, equal unlabored respirations, skin warm/dry/pink. Pt taken to radiology for CT and MRI. 11:00 Reassessment: Patient appears in no apparent distress at this time. Patient and/or ph family updated on plan of care and expected duration. Pain level reassessed. Patient is alert, oriented x 3, equal unlabored respirations, skin warm/dry/pink. Pt resting quietly, awaiting MRI and CT results. 12:27 Reassessment: Patient appears in no apparent distress at this time. Patient and/or iw family updated on plan of care and expected duration. Pain level reassessed. Patient is alert, oriented x 3, equal unlabored respirations, skin warm/dry/pink. Vital Signs: 08:00 BP 129 / 99; Pulse 82; Resp 18 S; Temp 97.7(O); Pulse Ox 97% on R/A; Weight 90.72 kg; ph 09:15 BP 116 / 76; Pulse 71; Resp 18; Pulse Ox 99% on R/A; ph 11:46 BP 96 / 77; Pulse 66; Resp 17; Pulse Ox 100% on R/A; mt 12:32 BP 101 / 65; Pulse 82; Resp 16; Pulse Ox 99% on R/A; mt ED Course: 07:19 Patient arrived in ED. mr 07:19 out of town, doctor is Private Physician. mr 07:32 Benjamín Mcfarland MD is Attending Physician. paola 07:53 EKG done, by quality assurance/r&d lab technician. reviewed by Benjamín Mcfarland MD. at1 07:56 Triage completed. iw 08:00 Arm band placed on. iw 08:17 Bernie Sigala, CAROLANN is Primary Nurse. ph 08:17 Margaret Ken MD is Hospitalizing Provider. paola 08:21 X-ray completed. Portable x-ray completed in exam room. Patient tolerated procedure jb2 well. 08:22 XRAY Chest (1 view) In Process Unspecified. EDMS 09:[address] via stretcher. sj 10:03 CT completed. Patient tolerated procedure well. Patient moved to MRI. sj 10:25 MRI completed. Patient tolerated well. Patient moved back from MRI. em2 12:34 Patient has correct armband on for positive identification. Placed in gown. Bed in low ph position. Call light in reach. Side rails up X 1. panel monitor on. Pulse ox on. NIBP on. Warm blanket given. 12:47 No provider procedures requiring assistance completed. Patient admitted, IV remains in ph place. Patient maintains SpO2 saturation greater than 95% on room air. Administered Medications: 08:32 Drug: ProTONIX 40 mg Route: IVP; Site: right antecubital; ph 09:00 Follow up: Response: No adverse reaction ph 08:32 Drug: Phenergan 12.5 mg Route: IVP; Site: right antecubital; ph 08:45 Follow up: Response: No adverse reaction; Nausea unchanged ph 08:35 Drug: NS 0.9% 1000 ml Route: IV; Rate: 125 ml/hr; Site: right antecubital; ph 09:00 Follow up: Response: No adverse reaction; IV Status: Completed infusion ph 08:35 Drug: fentaNYL (PF) 25 mcg Route: IVP; Site: right antecubital; ph 08:45 Follow up: Response: No adverse reaction; Pain is unchanged, physician notified ph 08:50 Drug: Phenergan 12.5 mg Route: IVP; Site: right antecubital; ph 09:15 Follow up: Response: No adverse reaction; Nausea is decreased ph 08:50 Drug: fentaNYL (PF) 50 mcg Route: IVP; Site: right antecubital; ph 09:15 Follow up: Response: No adverse reaction; Pain is decreased ph 09:03 Not Given (Other Intervention Used): Zofran 4 mg IVP once; over 2 minutes ph 12:22 Drug: Phenergan 25 mg Route: IVP; Site: right antecubital; ph 12:30 Follow up: Response: No adverse reaction; Nausea is decreased ph 12:23 Drug: Lovenox 1 mg/kg Route: Sub-Q; Site: abdomen; ph 12:30 Follow up: Response: No adverse reaction ph 12:23 Drug: NS 0.9% with KCl 20 mEq/L 1000 ml Route: IV; Rate: 125 ml/hr; Site: right ph antecubital; 12:30 Follow up: Response: No adverse reaction; IV Status: Infusion continued upon admission ph 12:23 Drug: fentaNYL (PF) 50 mcg Route: IVP; Site: right antecubital; ph 12:30 Follow up: Response: No adverse reaction ph Outcome: 08:19 Decision to Hospitalize by Provider. paola 12:28 Admitted to Tele accompanied by tech, via wheelchair, room 413, Report called to lavell Faith RN 12:28 Condition: good 12:28 Discharge instructions given to patient, Instructed on the need for admit. 12:47 Patient left the ED. ph Signatures: Dispatcher [employer] Benjamín Black MD MD cha Rivera, Maria mr Susan, Neftali jb2 Emy Morris Irene, RN RN iw Montes, Dakota em2 Steff mills, electric shipyard operator EKG Tat1 Bernie Sigala RN RN Karl, Sherine hi Corrections: (The following items were deleted from the chart) 08:19 08:00 BP 129 / 99; Pulse 82bpm; Resp 18bpm; Spontaneous; Pulse Ox 97% RA; Temp 97.7F ph Oral; iw
--- NOTE | 2018-05-04 08:20 | EDPHYS ---
Physician Documentation [facility] Name: Liza Dexter Age: 42 yrs Sex: Female : 1975 Arrival Date: 05/04/2018 Time: 07:19 Bed 7 Private MD: out of town, doctor ED Physician Benjamín Mcfarland HPI: 05/04 08:12 This 42 yrs old Female presents to ER via Wheelchair with complaints of Chest paola Pain, Numbness Of Arm. 08:12 The patient or guardian reports chest pain that is located primarily in the substernal paola area, epigastric area. Onset: 1 day(s) ago. The pain does not radiate. Associated signs and symptoms: Pertinent positives: abdominal pain, shortness of breath. The chest pain is described as causing indigestion, a pressure. Modifying factors: The symptoms are alleviated by remaining still, the symptoms are aggravated by deep breath. Historical: - Allergies: 08:00 ambien; iw 08:00 CEPHALOSPORINS; iw 08:00 Codeine; iw 08:00 Demerol; iw 08:00 Morphine; iw 08:00 Nexium; iw 17:16 Zofran; ph - Home Meds: 08:00 Topamax 200 mg Oral tab 1 tab 2 times per day [Active]; Phenergan Oral 50 mg as needed iw [Active]; vitamin b12 injection weekly [Active]; diazepam 10 mg Oral tab as needed [Active]; Adderall XR 20 mg Oral cp24 1 cap once daily [Active]; hydrocodone-acetaminophen 10-500 mg Oral tab as needed [Active]; amlodipine 5 mg tab 1 tab once daily [Active]; spironolactone 25 mg Oral tab 1 tab once daily [Active]; furosemide 20 mg Oral tab 1 tab once daily [Active]; - PMHx: 08:00 chron's; Colitis; Scleroderma; Seizures; Anemia; Raynaud's syndrome; iw - PSHx: 08:00 Stomach Surgery; Esophagus Surgery; Hernia repair; iw - Immunization history:: Adult Immunizations. - Social history:: Smoking status: Patient/guardian denies using tobacco. - Family history:: not pertinent. - Ebola Screening: : No symptoms or risks identified at this time. ROS: 08:12 Constitutional: Negative for fever, chills, and weight loss, Eyes: Negative for injury, paola pain, redness, and discharge, ENT: Negative for injury, pain, and discharge, Neck: Negative for injury, pain, and swelling, Respiratory: Negative for shortness of breath, cough, wheezing, and pleuritic chest pain, Abdomen/GI: Negative for abdominal pain, nausea, vomiting, diarrhea, and constipation, Back: Negative for injury and pain, : Negative for injury, bleeding, discharge, and swelling, MS/Extremity: Negative for injury and deformity, Skin: Negative for injury, rash, and discoloration, Neuro: Negative for headache, weakness, numbness, tingling, and seizure, Psych: Negative for depression, anxiety, suicide ideation, homicidal ideation, and hallucinations, Allergy/Immunology: Negative for hives, rash, and allergies, Endocrine: Negative for neck swelling, polydipsia, polyuria, polyphagia, and marked weight changes, Hematologic/Lymphatic: Negative for swollen nodes, abnormal bleeding, and unusual bruising. 08:12 Cardiovascular: Positive for chest pain, with cough, edema, palpitations. Exam: 08:12 Constitutional: This is a well developed, well nourished patient who is awake, alert, paola and in no acute distress. Head/Face: Normocephalic, atraumatic. Eyes: Pupils equal round and reactive to light, extra-ocular motions intact. Lids and lashes normal. Conjunctiva and sclera are non-icteric and not injected. Cornea within normal limits. Periorbital areas with no swelling, redness, or edema. ENT: Nares patent. No nasal discharge, no septal abnormalities noted. Tympanic membranes are normal and external auditory canals are clear. Oropharynx with no redness, swelling, or masses, exudates, or evidence of obstruction, uvula midline. Mucous membranes moist. Neck: Trachea midline, no thyromegaly or masses palpated, and no cervical lymphadenopathy. Supple, full range of motion without nuchal rigidity, or vertebral point tenderness. No Meningismus. Chest/axilla: Normal chest wall appearance and motion. Nontender with no deformity. No lesions are appreciated. Cardiovascular: Regular rate and rhythm with a normal S1 and S2. No gallops, murmurs, or rubs. Normal PMI, no JVD. No pulse deficits. Respiratory: Lungs have equal breath sounds bilaterally, clear to auscultation and percussion. No rales, rhonchi or wheezes noted. No increased work of breathing, no retractions or nasal flaring. Abdomen/GI: Soft, non-tender, with normal bowel sounds. No distension or tympany. No guarding or rebound. No evidence of tenderness throughout. Back: No spinal tenderness. No costovertebral tenderness. Full range of motion. Female : Normal external genitalia. Skin: Warm, dry with normal turgor. Normal color with no rashes, no lesions, and no evidence of cellulitis. MS/ Extremity: Pulses equal, no cyanosis. Neurovascular intact. Full, normal range of motion. Neuro: Awake and alert, GCS 15, oriented to person, place, time, and situation. Cranial nerves II-XII grossly intact. Motor strength 5/5 in all extremities. Sensory grossly intact. Cerebellar exam normal. Normal gait. Psych: Awake, alert, with orientation to person, place and time. Behavior, mood, and affect are within normal limits. Vital Signs: 08:00 BP 129 / 99; Pulse 82; Resp 18 S; Temp 97.7(O); Pulse Ox 97% on R/A; Weight 90.72 kg; ph 09:15 BP 116 / 76; Pulse 71; Resp 18; Pulse Ox 99% on R/A; ph 11:46 BP 96 / 77; Pulse 66; Resp 17; Pulse Ox 100% on R/A; mt 12:32 BP 101 / 65; Pulse 82; Resp 16; Pulse Ox 99% on R/A; mt MDM: 07:32 Patient medically screened. 05/04 08:11 Order name: Basic Metabolic Panel; Complete Time: 09:09 [facility] 05/04 08:11 Order name: CBC with Diff; Complete Time: 10:48 05/04 08:11 Order name: Ckmb; Complete Time: 09:09 05/04 08:11 Order name: CPK; Complete Time: 09:09 05/04 08:11 Order name: LFT's; Complete Time: 09:09 05/04 08:11 Order name: Magnesium; Complete Time: 09:09 05/04 08:11 Order name: NT PRO-BNP; Complete Time: 09:09 05/04 08:11 Order name: PT-INR; Complete Time: 08:45 05/04 08:11 Order name: Ptt, Activated; Complete Time: 08:45 [facility] 05/04 08:11 Order name: Troponin (emerg Dept Use Only); Complete Time: 09:09 [facility] 05/04 08:11 Order name: XRAY Chest (1 view); Complete Time: 10:48 [facility] 05/04 08:12 Order name: Lipase; Complete Time: 09:09 [facility] 05/04 10:04 Order name: CBC Smear Scan; Complete Time: 10:48 [facility] 05/04 12:30 Order name: Urine Dipstick--Ancillary (enter results) em1 05/04 08:11 Order name: EKG; Complete Time: 08:12 [facility] 05/04 08:12 Order name: CT Aorta for Dissection [facility] 05/04 08:26 Order name: Echo with Doppler [facility] 05/04 10:26 Order name: CT; Complete Time: 10:48 [facility] 05/04 10:36 Order name: MRI; Complete Time: 10:48 [facility] 05/04 08:11 Order name: Urine Test (obtain specimen); Complete Time: 12:30 [facility] 05/04 08:12 Order name: Cardiac monitoring; Complete Time: 09:07 [facility] 05/04 08:12 Order name: EKG - Nurse/Tech; Complete Time: 09:07 [facility] 05/04 08:12 Order name: IV Saline Lock; Complete Time: 09:07 [facility] 05/04 08:12 Order name: Labs collected and sent; Complete Time: 09:07 [facility] 05/04 08:12 Order name: O2 Per Protocol; Complete Time: 09:07 [facility] 05/04 08:12 Order name: O2 Sat Monitoring; Complete Time: 09:33 [facility] 05/04 08:12 Order name: Urine Dipstick-Ancillary (obtain specimen); Complete Time: 09:34 [facility] 05/04 08:26 Order name: CONS Physician Consult EDMS Administered Medications: 08:32 Drug: ProTONIX 40 mg Route: IVP; Site: right antecubital; ph 09:00 Follow up: Response: No adverse reaction ph 08:32 Drug: Phenergan 12.5 mg Route: IVP; Site: right antecubital; ph 08:45 Follow up: Response: No adverse reaction; Nausea unchanged ph 08:35 Drug: NS 0.9% 1000 ml Route: IV; Rate: 125 ml/hr; Site: right antecubital; ph 09:00 Follow up: Response: No adverse reaction; IV Status: Completed infusion ph 08:35 Drug: fentaNYL (PF) 25 mcg Route: IVP; Site: right antecubital; ph 08:45 Follow up: Response: No adverse reaction; Pain is unchanged, physician notified ph 08:50 Drug: Phenergan 12.5 mg Route: IVP; Site: right antecubital; ph 09:15 Follow up: Response: No adverse reaction; Nausea is decreased ph 08:50 Drug: fentaNYL (PF) 50 mcg Route: IVP; Site: right antecubital; ph 09:15 Follow up: Response: No adverse reaction; Pain is decreased ph 09:03 Not Given (Other Intervention Used): Zofran 4 mg IVP once; over 2 minutes ph 12:22 Drug: Phenergan 25 mg Route: IVP; Site: right antecubital; ph 12:30 Follow up: Response: No adverse reaction; Nausea is decreased ph 12:23 Drug: Lovenox 1 mg/kg Route: Sub-Q; Site: abdomen; ph 12:30 Follow up: Response: No adverse reaction ph 12:23 Drug: NS 0.9% with KCl 20 mEq/L 1000 ml Route: IV; Rate: 125 ml/hr; Site: right ph antecubital; 12:30 Follow up: Response: No adverse reaction; IV Status: Infusion continued upon admission ph 12:23 Drug: fentaNYL (PF) 50 mcg Route: IVP; Site: right antecubital; ph 12:30 Follow up: Response: No adverse reaction ph Disposition: 05/04/18 08:19 Hospitalization ordered by Margaret Ken for Observation. Preliminary diagnosis are Chest pain, unspecified, Functional dyspepsia, Raynaud's syndrome, Systemic sclerosis [scleroderma]. - Bed requested for Telemetry/MedSurg (observation). - Status is Observation. ph - Condition is Stable. - Problem is new. - Symptoms have improved. UTI on Admission? No Signatures: Dispatcher [employer] Benjamín Black MD MD cha Williams, Irene, RN RN iw Martinez, Eric em1 Bernie Sigala RN RN ph Corrections: (The following items were deleted from the chart) 08:20 08:19 Hospitalization Ordered by Margaret Ken MD for Observation. Preliminary diagnosis paola is Chest pain, unspecified; Functional dyspepsia. Bed requested for Telemetry/MedSurg (observation). Status is Observation. Condition is Stable. Problem is new. Symptoms have improved. UTI on Admission? No. paola 11:25 08:20 05/04/2018 08:19 Hospitalization Ordered by Margaret Ken MD for Observation. em1 Preliminary diagnosis is Chest pain, unspecified; Functional dyspepsia; Raynaud's syndrome; Systemic sclerosis [scleroderma]. Bed requested for Telemetry/MedSurg (observation). Status is Observation. Condition is Stable. Problem is new. Symptoms have improved. UTI on Admission? No. paola 12:47 11:25 05/04/2018 08:19 Hospitalization Ordered by Margaret Ken MD for Observation. ph Preliminary diagnosis is Chest pain, unspecified; Functional dyspepsia; Raynaud's syndrome; Systemic sclerosis [scleroderma]. Bed requested for Telemetry/MedSurg (observation). Status is Observation. Condition is Stable. Problem is new. Symptoms have improved. UTI on Admission? No. em1
[2018-05-04] MEDS ORDERED: PANTOPRAZOLE 40 MG INJ ONE (08:23)
[2018-05-04] MEDS ORDERED: PROMETHAZINE 25 MG/ML VIAL ONE ×3 (08:23→11:46)
[2018-05-04] MEDS ORDERED: FENTANYL CITR 100 MCG/2 ML ONE ×2 (08:23→11:46)
[2018-05-04] MEDS ORDERED: ENOXAPARIN 80 MG/0.8 ML SQ ONE (08:24)
[2018-05-04] MEDS ORDERED: NA CHLORIDE 0.9% 1,000 ML ONE (08:24)
[2018-05-04 08:31] LABS: Protime INR 1.11
[2018-05-04 08:35] LABS: Absolute Lymphocytes (CBC) 1.3 K/uL (0.7-4.9); Absolute Monocytes 0.4 K/uL (0.1-1.3); Basophils % 0.9 % (0-1.3); Eosinophils % 4.1 % (0-4.4); Hematocrit 42.6 % (36.0-45.0); Lymphocytes % 18.7 % (15.3-44.8); MCH 26.2 pg (27.0-35.0); MCV 81.5 fL (80-100); MPV 8.7 fL (7.6-11.3); Monocytes % 5.8 % (3.3-12.3); RBC Red Blood Cell Count 5.23 M/uL (3.86-4.86)
[2018-05-04] MEDS ORDERED: MORPHINE 4 MG/ML SYR IV PRN (08:54)
[2018-05-04] MEDS ORDERED: ACETAMINOPHEN 500 MG TAB PO PRN (08:54)
[2018-05-04 09:00] LABS: ALT/SGPT 396 U/L (12-78); Albumin 3.7 g/dL (3.4-5.0); Alkaline Phosphatase 415 U/L (45-117); BUN Blood Urea Nitrogen 8 mg/dL (7-18); Bicarbonate 20 mmol/L (21-32); Bilirubin Direct < 0.1 mg/dL (0-0.2); Bilirubin Total 0.2 mg/dL (0.2-1.0); Creatine Phosphokinase 86 U/L (26-192); Glucose Level 108 mg/dL (74-106); Lipase 123 U/L (73-393); Magnesium 2.3 mg/dL (1.8-2.4); NT PRO-BNP 185 pg/mL (<125); Potassium 3.3 mmol/L (3.5-5.1); Protein, Total 8.2 g/dL (6.4-8.2); Sodium Level 140 mmol/L (136-145)
[2018-05-04] MEDS: LISINOPRIL 10 MG TAB PO SCH (09:00)
[2018-05-04] MEDS: METOPROLOL TAR 25 MG TAB PO SCH ×2 (09:00→21:39)
[2018-05-04 09:01] LABS: CKMB Creatine Kinase MB < 1.0 ng/mL (0.3-3.6)
[2018-05-04 09:05] LABS: AST/SGOT 306 U/L (15-37)
[2018-05-04] MEDS ORDERED: NITROGLYCERIN 0.4 MG/TAB SL PRN (09:20)
--- NOTE | 2018-05-04 09:22 | EKG ---
Test Date: 2018-05-04 Test Time: 07:53:14 Pretzel Cooker: CRISTY MEASUREMENT RESULTS: Intervals: Rate: 71 PA: 148 QRSD: 82 QT: 416 QTc: 452 [place]: P: 14 PA: 148 QRS: 12 T: 19 INTERPRETIVE STATEMENTS: Normal sinus rhythm Normal ECG Compared to ECG 04/16/2017 23:42:59 No significant changes Electronically Signed On 05-04-18 09:22:16 CDT by Patrice Blanco
--- NOTE | 2018-05-04 10:02 | RAD REPORT ---
EXAM DESCRIPTION: Destiny Single View05/04/2018 8:28 am CLINICAL HISTORY: Chest pain COMPARISON: 2015 FINDINGS: The lungs appear clear of acute infiltrate. The heart is normal size IMPRESSION: No acute abnormalities displayed
[2018-05-04 10:03] LABS: Blood Morphology Comment NOTED (NOT SEEN); Platelet Estimate ADEQ; Urine White Blood Cell Casts OK
[2018-05-04 10:04] LABS: Anisocytosis 3+
--- NOTE | 2018-05-04 10:26 | RAD REPORT ---
EXAM DESCRIPTION: CT - Angio Aorta For Dissection - 05/04/2018 10:05 am CLINICAL HISTORY: . Chest and abdominal pain COMPARISON: July 12, 2017 TECHNIQUE: Computed tomography angiography of the chest, abdomen pelvis were obtained. 100 cc Isovue 370 was administered intravenously. Coronal and sagittal reconstruction were performed. MIP 3D reconstruction was performed All CT scans are performed using dose optimization technique as appropriate and may include automated exposure control or mA/KV adjustment according to patient size. FINDINGS: The opacification of the thoracic aorta is suboptimal. This renders detection for a dissec tion nondiagnostic. An abdominal aortic dissection is not noted. An aortic aneurysm is not noted. The celiac, SMA and DILSHAD are patent . A lung consolidation is not present. A pericardial effusion is not seen. A pleural effusion is not n oted. Postsurgical changes involve the distal esophagus/stomach. The esophagus is dilated. The liver,spleen, pancreas adrenals and right kidney demonstrate no significant abnormality. A small left renal cyst is present. There is no evidence of diverticulitis. A tampon is in place. An adnexal mass is not seen IMPRESSION: Evaluation for a thoracic aortic dissection is nondiagnostic. An abdominal aortic dissec tion is not seen. Dilated esophagus may be related to the patient's scleroderma
--- NOTE | 2018-05-04 10:35 | RAD REPORT ---
EXAM DESCRIPTION: MRICholangiogram05/04/2018 10:25 am CLINICAL HISTORY: Abdominal pain and vomiting COMPARISON: none TECHNIQUE: Magnetic resonance cholangiogram was performed. Source images were reviewed and reconstru cted at 360 degrees rotation FINDINGS: The gallbladder has been removed. The intra hepatic and extrahepatic biliary tree is mildly dilated. A filling defect is not seen. The pancreatic duct appears unremarkable IMPRESSION: Mild dilatation of the biliary tree most likely is physiologic in this patient status po st cholecystectomy. A filling defect within the biliary tree is not visualized.
--- NOTE | 2018-05-04 10:46 | CON ---
Chief Complaint: Chest pain. History Of Present Illness: Mrs. Dexter has been having chest pain off and on for about a month. She saw a surgeon, who had performed extensive surgery on her esophagus and stomach. They did some test s on her, interposed jejunal segment for an esophagus and found that it was working fine. She has sc leroderma. She had a lot of serious GI issues with scleroderma and underwent removal of the esophagu s, removal of the stomach, and interposition of the jejunum into the place of the esophagus. She rec ently had a barium swallow, an esophageal camera, and an endoscopy to see if those things were good w hile she is having this chest pain. She seems to have had dozens of spells of chest pain over the la st couple of months. She has never had myocardial infarction or stroke. Does not have diabetes or d yslipidemia. She has had scleroderma for about 20 years. Medications: Outpatient medications have been spironolactone, Topamax, Phenergan, Adderall, hydrocod one, Lasix, and amlodipine. She has underlying hypertension. She gets weekly B12 injections and use s diazepam. Allergies: SHE HAS ALLERGIES TO AMBIEN, CEPHALOSPORIN, CODEINE, DEMEROL, MORPHINE, AND NEXIUM. Physical Examination: General: She appears to be her stated age, mildly overweight, alert, oriented, pleasant, not in dist ress. Lungs: Clear. Cardiac: Within normal limits. No carotid bruit. Abdomen: Seems soft and normal. I cannot palpate the aorta, so I doubt if it is enlarged. Extremities: Distal pulses in her legs look normal. Skin: Warm, pink, and well perfused. No edema, cyanosis, or clubbing. Neurological: Normal. Laboratory Data: Reveals normal hemoglobin, hematocrit, and platelet count, white blood cell count. She has a creatinine of 0.7. SGOT and SGPT are both very elevated. Troponin is less than 0.02. Impression: My impression is that this is not an acute coronary syndrome, possible the patient has c oronary vasospasm. She has chest pain and I would recommend we try nitroglycerin. We will try to do an echocardiogram a nd pharmacologic stress test today. If they are abnormal, we will do a cardiac cath. I have recomme nded not using the arm arteries in the setting of scleroderma. It is way too much of a chance of rad ial brachial artery spasm and complications, so we need to do a heart catheterization that will be a femoral approach, but only if we have clear evidence that there is significant ischemic heart disease . RAFAEL/SIXTO Voice ID: [id number] Report ID: [id number]
[2018-05-04] MEDS ORDERED: NS KCL 20MEQ 1,000 ML IV ONE (10:59)
--- NOTE | 2018-05-04 12:19 | ECHO ---
HEIGHT: 5 ft 6 in WEIGHT: 205 lb oz DATE OF STUDY: 05/04/[address]: Benjamín Mcfarland MD 2-DIMENSIONAL: YES M.MODE: YES DOPPLER: YES COLOR FLOW: YES TDS: NO PORTABLE: NO DEFINITY: NO BUBBLE STUDY: NO DIAGNOSIS: CHEST PAIN CARDIAC HISTORY: CATHERIZATION: NO SURGERY: NO PROSTHETIC VALVE: NO PACEMAKER: NO MEASUREMENTS (cm) DIASTOLIC (NORMALS) SYSTOLIC (NORMALS) IVSd 1.3 (0.6-1.2) LA Diam 3.6 (1.9-4.0) LVEF 74% LVIDd 3.8 (3.5-5.7) LVIDs 2.2 (2.0-3.5) %FS 43% LVPWd 1.1 (0.6-1.2) Ao Diam 3.0 (2.0-3.7) 2 DIMENSIONAL ASSESSMENT: RIGHT ATRIUM: NORMAL LEFT ATRIUM: NORMAL RIGHT VENTRICLE: NORMAL LEFT VENTRICLE: NORMAL TRICUSPID VALVE: NORMAL MITRAL VALVE: NORMAL PULMONIC VALVE: NORMAL AORTIC VALVE: NORMAL PERICARDIAL EFFUSION: NONE AORTIC ROOT: NORMAL LEFT VENTRICULAR WALL MOTION: NORMAL DOPPLER/COLOR FLOW: PHYSIOLOGIC TRICUSPID REGURGITATION. NORMAL RIGHT VENTRICULAR SYSTOLIC PRESSURE. COMMENTS: NORMAL 2D ECHO WITH DOPPLER. TECHNOLOGIST: ADY CARDONA
[2018-05-04 13:07] LABS: Urine Blood TRACE (NEG); Urine Glucose NEGATIVE (NEG); Urine Protein NEGATIVE (NEG); Urine Specific Gravity <1.005 (1.005-1.030)
[2018-05-04] MEDS ORDERED: FUROSEMIDE 20 MG TABLET PO PRN (15:26)
[2018-05-04] MEDS ORDERED: HYDROCODONE/APAP 10/325 TAB PO PRN (15:26)
[2018-05-04] MEDS ORDERED: PROMETHAZINE HCL 50 MG PO SCH (15:30)
[2018-05-04] MEDS ORDERED: PROMETHAZINE 25 MG TABLET PO PRN (15:33)
[2018-05-04] MEDS: AMLODIPINE 5 MG TAB PO SCH (16:00)
[2018-05-04] MEDS: FUROSEMIDE 20 MG TABLET PO SCH (16:00)
[2018-05-04] MEDS: FENTANYL CITR 100 MCG/2 ML IV PRN ×2 (18:33→23:56)
[2018-05-04] MEDS: PROMETHAZINE 25 MG/ML VIAL IV PRN ×2 (18:35→23:56)
[2018-05-04] MEDS: NS KCL 20MEQ 20 MEQ/1,000 ML BAG IV SCH ×2 (18:37→23:24)
[2018-05-04] MEDS: ASPIRIN EC 81 MG TAB PO SCH (18:43)
[2018-05-04 20:26] VITALS: BMI 33.2
[2018-05-04] MEDS ORDERED: DIAZEPAM 5 MG TABLET PO SCH (21:00)
[2018-05-04] MEDS ORDERED: DIAZEPAM 10 MG PO SCH (21:00)
[2018-05-04] MEDS: SPIRONOLACTONE 25 MG TABLET PO SCH (21:38)
[2018-05-04] MEDS: TOPIRAMATE 100 MG TAB PO SCH (21:40)
[2018-05-05] MEDS ORDERED: KETOROLAC 30 MG/ML INJ IV ONE (00:49)
--- NOTE | 2018-05-05 01:25 | HP ---
Date of Admission: 05/04/2018 Chief Complaint: Chest pain. Consultants: Dr. Blanco with Cardiology. Primary Care Physician: Out of town in [place]. History Of Present Illness: The patient is a 42-year-old female with past medical history of sclerod mayito for the past 20 years, diagnosed approximately 10 years ago. The patient does see a rheumatolog ist on a regular basis, has had significant complications of her esophagus with complicated GI surger y including a gastrectomy, esophagectomy and interposition of the jejunum for esophagus and has had r ecent workup done by her CT surgeon and by her GI doctor including barium swallow, esophageal camera, endoscopy with normal findings. The patient has been having chest tightness and pain that takes her breath away for the past month or so. She does report some nausea; however, no vomiting, diaphoresi s or palpitations with these episodes. These episodes have been progressive and more frequent in dale ure over the past few days, therefore she sought emergency care. The patient otherwise denies any al leviating or aggravating factor, tightness occurs at rest. The patient came in. Her vital signs wer e stable. She was afebrile. Her workup revealed elevated liver enzymes, which she states is chronic for her. Had low potassium at 3.3. White count was normal. Cardiac troponin level was negative. She had multiple imaging studies done including chest x-ray, CT aortic dissection which was negative, MRCP which did not show any dilatation of the biliary tree, other than what is physiologic in a post cholecystectomy patient. No filling defects. The patient was therefore admitted to the hospital fo r chest pain, rule out NE. Dr. Blanco of Cardiology was consulted. When seen in the ER, the patient was awake, alert, oriented x3, in some mild distress. Past Medical History: Migraine headaches, seizure disorders, history of questionable CVA, previous h istory of mitral valve regurgitation, diverticulitis, hepatitis, peptic ulcer disease, osteoarthritis , scleroderma with significant esophageal complications. Past Surgical History: Laparoscopic banding, tonsillectomy, esophageal surgery with essential remova l of the esophagus and gastrectomy, cholecystectomy with interposition of the jejunum functioning as a soft esophagus, has had recent EGD, esophagram and other studies, which have been normal. Allergies: TO CEPHALOSPORINS, CODEINE, OMEPRAZOLE, MEPERIDINE, ZOLPIDEM AND ZOFRAN. Family History: Positive for father with hypertension, diabetes. Sister has seizure disorder and di abetes, hypertension, cancer. Mother also had hypertension and liver disease. Social History: The patient denies any illicit drug use, alcohol use or tobacco use. Home Medications: Reviewed. Review of Systems: An 11-point system reviewed, negative except as per HPI. Physical Examination: Vital Signs: Temperature 97.7, heart rate 82, blood pressure 129/99, respirations 18, O2 97% on room air. General: Awake, alert, oriented x3, in mild distress. Ill-appearing female, obese. HEENT: Normocephalic, atraumatic. PERRLA. EOMI. Moist mucous membranes. Oropharynx is clear. Co njunctiva anicteric. Neck: Supple. No JVD. Trachea midline. CVS: S1, S2. Regular rate and rhythm. No murmurs. Peripheral pulses present. Respiratory: Clear to auscultation bilaterally. No wheezing. No stridor. No use of accessory musc les. Gastrointestinal: Abdomen is soft, nontender, nondistended. Positive bowel sounds. No guarding or rigidity. Extremities: No clubbing, cyanosis or edema. No calf tenderness. Neurologic: Cranial nerves 2 through 12 intact grossly. No focal neurological deficit. Speech is n ormal. Strength is 5/5 bilateral upper, lower extremities. Sensation intact to light touch. Skin: No rashes. Normal skin turgor. Psych: Mood is anxious. Affect is congruent with mood. Insight and judgment are good. Laboratory Data: Sodium 140, potassium 3.3, chloride 109, CO2 20, BUN 8, creatinine 0.7, glucose 108 , calcium 8.4, magnesium 2.3, total bilirubin 0.2, AST 306, ALT 396, alkaline phosphatase 415. Tropo purnima less than 0.02. BNP 185, albumin 3.7, lipase 125. INR 1.11. WBC 7.1, H and H 13.7, 42.6, plate lets 257. UA is negative. CT angio aorta for dissection shows no abdominal aortic dissection. Dilated esophagus may be related to scleroderma. Evaluation of thoracic aortic dissection is nondiagnostic. Postsurgical changes se en at the distal esophagus and stomach. Chest x-ray shows no acute intrathoracic abnormality, person ally reviewed. MRCP shows mild dilatation of the biliary tree, most likely physiologic in this patie nt status post cholecystectomy. Filling defect within the biliary tree is not visualized. Echocardi ogram shows EF 74%. Normal echocardiogram. Assessment: A 42-year-old female with, 1.Chest pain, rule out acute coronary syndrome. We will start on chest pain guidelines. Obtain car diac enzymes and EKG as needed. Appreciate Dr. Blanco' input. Echocardiogram has been completed, wh ich showed normal EF, no wall motion abnormality. No changes on EKG, maybe related to coronary vasos pasms secondary to her scleroderma. 2.History of scleroderma with esophageal complications status post surgery. 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 3.History of migraine headaches. 4.History of seizure disorder. 5.Questionable history of cerebrovascular accident. 6.Mitral valve regurgitation; however, echo shows normal valves. 7.History of previous diverticulitis. 8.History of hepatitis. The patient does have elevated liver enzymes, states she does have chronic liver disease. 9.Osteoarthritis. 10.Hypocalcemia. 11.Hypokalemia. We will replace and monitor. Plan: Admit the patient to [facility], place observation. TIARA Voice ID: [id number]
[2018-05-05 04:06] LABS: Absolute Lymphocytes (CBC) 2.1 K/uL (0.7-4.9); Absolute Monocytes 0.5 K/uL (0.1-1.3); Absolute Neutrophil 3.9 K/uL (1.8-8.0); Basophils % 0.5 % (0-1.3); Eosinophils % 8.5 % (0-4.4); Hematocrit 38.5 % (36.0-45.0); Lymphocytes % 29.8 % (15.3-44.8); MCH 26.1 pg (27.0-35.0); MPV 8.4 fL (7.6-11.3); Monocytes % 6.4 % (3.3-12.3); RBC Red Blood Cell Count 4.64 M/uL (3.86-4.86)
[2018-05-05 04:22] LABS: BUN Blood Urea Nitrogen 8 mg/dL (7-18); Bicarbonate 20 mmol/L (21-32); Glucose Level 77 mg/dL (74-106); HDL Cholesterol 44 mg/dL (40-60); LDL Cholesterol, Calculated 95 (<130); Potassium 4.4 mmol/L (3.5-5.1); Sodium Level 142 mmol/L (136-145)
[2018-05-05] MEDS: PROMETHAZINE 25 MG/ML VIAL IV PRN (06:45)
[2018-05-05] MEDS: FENTANYL CITR 100 MCG/2 ML IV PRN (06:47)
[2018-05-05] MEDS ORDERED: REGADENOSON 0.4 MG/5 ML SYR IV ONE (08:21)
[2018-05-05] MEDS: SPIRONOLACTONE 25 MG TABLET PO SCH (08:51)
[2018-05-05] MEDS: FUROSEMIDE 20 MG TABLET PO SCH (08:52)
[2018-05-05] MEDS: METOPROLOL TAR 25 MG TAB PO SCH (08:52)
[2018-05-05] MEDS: AMLODIPINE 5 MG TAB PO SCH (08:53)
[2018-05-05] MEDS: LISINOPRIL 10 MG TAB PO SCH (08:53)
[2018-05-05] MEDS: ASPIRIN EC 81 MG TAB PO SCH (08:55)
[2018-05-05] MEDS ORDERED: ENOXAPARIN 40 MG/0.4 ML SQ SCH (09:00)
[2018-05-05] MEDS: NS KCL 20MEQ 20 MEQ/1,000 ML BAG IV SCH (11:00)
[2018-05-05 11:31] VITALS: BP 106/57; TEMP 96.9
--- NOTE | 2018-05-05 11:49 | RAD REPORT ---
EXAM DESCRIPTION: NM - Rest Stress Cardiac Imaging - 05/05/2018 11:20 am CLINICAL HISTORY: Chest pain COMPARISON: None. TECHNIQUE: The patient was administered 10.2 mCi of Tc 99m Sestamibi prior to resting SPECT imaging of the heart. The patient was then administered 30.6 mCi of Tc 99m Sestamibi following exercise or ph armacologic stress. Multiplanar SPECT images were reviewed. FINDINGS: The end diastolic volume is 106 ml, the end systolic volume is 35 ml, and the ejection fra ction is 67 %. No stress-induced ischemic change identifiable. No scarring or significant attenuation artifact. No s ignificant or suspicious findings noted. IMPRESSION: No stress induced ischemia or other suspicious findings. Ventricular volumes and ejection fraction are normal range.
[2018-05-05] MEDS: TOPIRAMATE 100 MG TAB PO SCH (11:55)
--- NOTE | 2018-05-05 12:48 | TREADPHA ---
DX: CHEST PAIN Date of Study: 05/05/2018 Ht: 5 6 Wt: 206 lb 0 oz Consulting Physician: EDIS MEDICATIONS: TYLENOL, ASPIRIN, LOVENOX, PRINIVIL, LOPRESSOR, NITROSTAT HISTORY: 42 YEAR OLD FEMALE COMPLAINTS OF CHEST PAIN. MEDICAL HISTORY OF CHRONS, COLITIS, SCLERODERMA, SEIZURES AND RAYNAUDS PHYSICIAL EXAMINATION: RESTING B.P.: 109/64 RESTING H.R.: 57 RESTING EKG: NORMAL PROTOCOL: LEXISCAN EXERCISE TIME: 3:30 B.P. AT PEAK STRESS: 113/78 IMPRESSION: LEXISCAN INJECTED. CARDIOLITE INJECTED PER PROTOCOL. SEE NUCLEAR MEDICINE REPORT. NO SUPRAVENTRICULAR OR VENTRICULAR TACHYCARDIA NOTED. NO PREMATURE VENTRICULAR COMPLEXES.
[2018-05-05 14:19] VITALS: O2SAT 100
--- NOTE | 2018-05-06 03:08 | DS ---
Date of Discharge: 05/05/2018 Consultants: Dr. Elam and Dr. Blanco with Cardiology. Procedure: Cardiac stress test. Admitting Diagnoses: 1.Chest pain, rule out acute coronary syndrome. 2.History of scleroderma with esophageal complications, status post surgery. 3.History of migraine headaches. 4.History of seizure disorder. 5.Mitral valve regurgitation. 6.History of previous diverticulitis. 7.History of hepatitis. 8.Osteoarthritis. 9.Hypocalcemia. 10.Hypokalemia. Discharge Diagnoses: 1.Chest pain. Acute coronary syndrome ruled out. 2.History of scleroderma with esophageal complications. 3.History of migraine headaches. 4.History of seizure disorder. 5.Questionable history of cerebrovascular accident. 6.Mitral valve regurgitation. 7.History of previous diverticulitis. 8.History of hepatitis. 9.Elevated liver enzymes. 10.Osteoarthritis. 11.Hypocalcemia. 12.Hypokalemia. Hospital Course: The patient is a 42-year-old female with complicated past medical history including longstanding scleroderma who sees multiple specialists including primary care pediatrician, CT surgeon and has had multiple surgeries leading to essentially esophagectomy, gastrectomy with interposition of the je junum for esophagus who comes in with chest pain. The patient recently had further workup by her CT surgeon, including barium swallow study, esophageal camera, endoscopy with normal findings. She came in for these recurrent chest tightness episodes that have been ongoing for the past month. Her work up was negative for ACS. Troponin was negative x3. Her lipid panel was normal. She did have some m ild electrolyte abnormalities, which improved and were corrected. She was seen by Cardiology, Dr. Jerel huggins, who felt that this may be related to coronary vasospasms. Stress test was ordered and was nega tive for stress-induced ischemia. Echocardiogram did not show any wall motion abnormalities. She di d have elevated liver enzymes and has history of chronic liver disease, unclear etiology, may be rela heron to scleroderma. MRCP was done in the ER which was negative for any biliary tree dilatation. The patient otherwise did well. Her pain essentially resolved. She also had a CT angio of the chest fo r aortic dissection rule out. Evaluation of thoracic aortic dissection was nondiagnostic. Abdominal aortic dissection was not seen. The patient was then cleared for discharge from Cardiology standpoi nt. Her symptoms had improved. She will be started on trial of nifedipine for possible coronary vas ospasms. The patient does also have Raynaud phenomenon. Followup: The patient is to follow up with her PCP in 2 to 3 days, Dr. Meza. Follow up with rheumat ologist in [place] in 1 week. Follow up with surgeon in [place] in 2 weeks. Return to ER for wor sening condition. Diet: Heart healthy. Activity: As tolerated. Medications: As per medication reconciliation list. Physical Examination: General: Awake, alert, oriented, no acute distress. CV: S1, S2. No murmurs. Respiratory: Moving air well bilaterally. Abdomen: Soft, nontender, nondistended. Positive bowel sounds. Extremities: No clubbing, cyanosis, edema. Neurologic: Nonfocal. SA/MODL Voice ID: [id number] Report ID: [id number]
--- NOTE | 2018-05-06 08:59 | PN ---
Date of Progress Note: 05/05/2018 Ms. Dexter was seen by Francis. She was admitted to Dr. Ken for chest pain, history of Raynaud and s cleroderma. Dr. Blanco thought that it may have been spasm. Echocardiogram is normal. Lillian coon that was done was also normal without any evidence of ischemia. The case was discussed with Dr. Yuni castillo and I suggest that she go home on a calcium channel eleazar, so the Procardia is very appropriat e or Cardizem, verapamil, and Norvasc may work as well, but I think a trial Procardia is reasonable. She can go home whenever it is okay with Dr. Ken. ALONDRA/SIXTO Voice ID: [id number] Report ID: [id number]
--- NOTE | 2018-07-25 22:12 | HP ---
Date of Admission: 05/04/2018 Addendum: Assessment And Plan: History of nonalcoholic steatohepatitis. The patient has elevated liver enzymes, has chronic liver disease due to her autoimmune disease. TIARA Voice ID: [id number] MTDD
--- NOTE | 2018-07-25 22:12 | DS ---
Date of Discharge: 05/05/2018 Addendum: Discharge Diagnosis: Nonalcoholic steatohepatitis and elevated liver enzymes secondary to autoimmune disease. /SIXTO Voice ID: [id number] Report ID: [id number]
== END 2018-05-05 14:53 | disposition home or self-care (01) ==
LOC: ER 07:16 → ERHOLD 08:22 → 4TH 12:31
PROVIDERS: ADMIT Family Medicine; ATTEND Family Medicine
DX: R07.9 Chest pain, unspecified (principal); R74.8 Abnormal levels of other serum enzymes; M19.90 Unspecified osteoarthritis, unspecified site; E83.51 Hypocalcemia; E87.6 Hypokalemia; M34.9 Systemic sclerosis, unspecified; I34.0 Nonrheumatic mitral (valve) insufficiency; K57.90 Diverticulosis of intestine, part unspecified, without perforation or abscess without bleeding
CPT/HCPCS: 36415; 71045; 71275; 74175; 74181; 78452; 80048; 80061; 80076; 81003; 82550; 82553; 83690; 83735; 83880; 84484; 85025; 85610; 85730; 93005; 93017; 93306; 94760; 96361; 96372; 96374; 96375; 99285; A9500; C9113; G0378; J1650; J2550; J2785; J3010; J7030; Q9967

== ENCOUNTER 2018-10-16 17:40 | Inpatient (IN) | payer OTHER ==
--- OUTSIDE RECORDS SUMMARY | 2018-10-16 17:44 | XMS REPORT | Clinical Summary ---
:1975 Author Organization [facility] Address [address] [place] [address] Care Team Providers Name Role Phone Higinio Meza MD Primary Care Provider Allergies Active Allergy Reactions Severity Noted Date Comments Zolpidem Other (See Comments) High 05/25/2016 INSOMNIA, ANXIETY Cephalosporins 03/16/2017 Clindamycin 08/12/2018 Rash, vomiting, throat swelling Codeine Other (See Comments) High 05/25/2016 CARDIAC ARREST Meperidine Other (See Comments) High 05/25/2016 CARDIAC ARREST Esomeprazole Magnesium Nausea And Vomiting High 10/09/2016 CARDIAC ARREST Meperidine Hcl GI Intolerance 03/09/2010 Morphine Other (See Comments) High 05/25/2016 CARDIAC ARREST EFFECT Esomeprazole Magnesium Other (See Comments) High 05/25/2016 CARDIAC ARREST Ondansetron Other (See Comments) 08/12/2017 Bradycardia and low heart rate Medications Medication Sig Dispensed Refills Start End Date Status Date folic acid Take 1 mg by 0 Active (FOLVITE) 1 MG mouth daily. tablet dextromethorphan-gu Take 1 tablet by 0 Active aifenesin (MUCINEX mouth 2 (two) DM REGULAR) 30-600 times a day. mg tablet extended release 12 hr lidocaine HCl 5 mL by mucous 100 mL 3 Active (lidocaine) 2 % membrane route 7 solution every 3 (three) hours. fluocinonide Apply topically 2 30 g 2 Active (LIDEX) 0.05 % (two) times a day 8 ointment as needed (rash or itching). hyoscyamine DISSOLVE 1 30 tablet 0 Active (LEVSIN) 0.125 mg TABLET(0.125 MG) 8 SL tablet UNDER THE TONGUE EVERY 4 HOURS NEEDED FOR CRAMPING OR DIARRHEA cyanocobalamin ADMINISTER 1 10 mL 0 Active 1,000 mcg/mL ML(1000 MCG) 8 injection UNDER THE SKIN EVERY 7 DAYS furosemide (LASIX) Take 1 tablet (20 90 tablet 1 Active 20 mg mg total) by 8 tabletIndications: mouth daily as Fluid retention needed (swelling). HYDROcodone-acetami Take 1 tablet by 120 tablet 0 Active nophen (NORCO) mouth every 6 8 10-325 mg per (six) hours as tabletIndications: needed for Scleroderma (HCC), moderate pain for Other chronic pain, up to 90 days. Generalized Max Daily Amount: abdominal pain 4 tablets amphetamine-dextroa TK ONE C PO QAM 30 capsule 0 07/14/20 Active mphetamine XR 8 19 (ADDERALL XR) 20 MG 24 hr capsule diazePAM (VALIUM) 5 Take 1 tablet (5 30 tablet 5 01/11/20 Active MG tablet mg total) by 8 19 mouth nightly as needed for anxiety or sleep for up to 180 days. promethazine TAKE 1 TABLET BY 270 tablet 0 Active (PHENERGAN) 50 MG MOUTH EVERY 8 8 tabletIndications: HOURS NEEDED Non-intractable FOR NAUSEA OR vomiting with VOMITING nausea, unspecified vomiting type baclofen (LIORESAL) TAKE 1 TABLET(10 90 tablet 0 Active 10 MG tablet MG) BY MOUTH 8 EVERY NIGHT NEEDED FOR MUSCLE SPASMS spironolactone TAKE 1 TABLET(25 90 tablet 0 Active (ALDACTONE) 25 MG MG) BY MOUTH 8 tabletIndications: DAILY Fluid retention amLODIPine Take 1 tablet (10 90 tablet 1 09/08/20 Active (NORVASC) 10 mg mg total) by 8 19 tabletIndications: mouth daily. For Essential blood pressure hypertension cholecalciferol, Take 1 capsule 12 capsule 3 09/11/20 Active vitamin D3, 50,000 (50,000 Units 8 19 unit capsule total) by mouth once a week. DULoxetine Take 1 capsule 90 capsule 3 09/15/20 Active (CYMBALTA) 60 MG (60 mg total) by 8 19 capsule mouth daily. spironolactone TAKE 1 TABLET BY 90 tablet 0 Active (ALDACTONE) 25 MG MOUTH DAILY 8 tabletIndications: NEEDED(FLUID Fluid retention RETENTION-TAKE WITH LASIX) ULTRA COMFORT USE DIRECTED 30 each 0 Active INSULIN SYRINGE 1 ONCE WEEKLY 8 mL 28 gauge x 1/2" syringe ergocalciferol Take 8,000 Units 0 09/08/20 Discontinued (DRISDOL) 8,000 by mouth daily. 18 unit/mL drops insulin Use as directed 30 each 3 04/22/20 Discontinued syringe-needle with methotrexate 6 18 U-100 (INSULIN once weekly SYRINGE) 1 mL 28 gauge x 1/2" syringe cyanocobalamin Inject 1 mL 10 mL 5 01/24/20 Discontinued 1,000 mcg/mL (1,000 mcg total) 6 18 injection under the skin every 7 days. methotrexate 25 INJ 1 ML ONCE A 0 06/16/20 Discontinued mg/mL syringe WEEK 7 18 furosemide (LASIX) Take 1 tablet (20 30 tablet 2 12/13/19 Discontinued 20 mg tablet mg total) by 7 18 mouth daily as needed (swelling). topiramate TAKE 1 TABLET(100 180 tablet 0 12/13/19 Discontinued (TOPAMAX) 100 MG MG) BY MOUTH 7 18 tablet TWICE DAILY diazePAM (VALIUM) Take 1 tablet (10 30 tablet 5 11/09/19 Discontinued 10 MG mg total) by 7 18 tabletIndications: mouth nightly as Muscle spasm needed (stress, sleep, anxiety) for up to 180 days. promethazine Take 1 tablet (25 30 tablet 1 11/25/19 Discontinued (PHENERGAN) 25 MG mg total) by 7 18 tabletIndications: mouth every 6 Nausea vomiting and (six) hours as diarrhea needed for nausea or vomiting for up to 30 days. HYDROcodone-acetami Take 1 tablet by 120 tablet 0 11/09/19 Discontinued nophen (NORCO) mouth every 6 7 18 10-325 mg per (six) hours as tabletIndications: needed for Scleroderma (HCC), moderate pain for Other chronic pain, up to 90 days. Generalized Max Daily Amount: abdominal pain 4 tablets spironolactone TAKE 1 TABLET BY 30 tablet 0 11/21/19 Discontinued (ALDACTONE) 25 MG MOUTH DAILY 7 18 tabletIndications: NEEDED(FLUID Fluid retention RETENTION-TAKE WITH LASIX) amLODIPine TAKE 1 TABLET(5 30 tablet 0 03/19/20 Discontinued (NORVASC) 5 mg MG) BY MOUTH 7 18 tablet DAILY FOR BLOOD PRESSURE ergocalciferol Take 1 capsule 12 capsule 3 08/14/20 (VITAMIN D2) 50,000 (50,000 Units 7 18 unit capsule total) by mouth once a week. tiZANidine 1/2 - 1 tab po 20 tablet 1 12/13/19 Discontinued (ZANAFLEX) 4 MG nightly prn 7 18 tablet muscle spasms hyoscyamine Take 1 tablet 30 tablet 1 02/15/20 Discontinued (LEVSIN) 0.125 mg (0.125 mg total) 7 18 SL tablet by mouth every 4 (four) hours as needed for cramping or diarrhea for up to 30 days. methotrexate PF 25 once a week. 0 06/16/20 Discontinued mg/mL chemo syringe 18 promethazine 1 12/13/19 Discontinued (PHENERGAN) 25 MG 7 18 tablet amphetamine-dextroa TK 1 C PO ONCE D 0 11/09/19 Discontinued mphetamine XR IN THE MORNING. 7 18 (ADDERALL XR) 20 MG 24 hr capsule celecoxib TK 1 C PO BID 3 09/08/20 Discontinued (CeleBREX) 200 MG 7 18 capsule predniSONE 4 tabs po daily x 20 tablet 1 11/22/19 (DELTASONE) 10 mg 2 days, 3 tabs po 8 18 tablet daily x 2 days, 2 tabs po daily x 2 days, 1 tab po daily x 2 days, then stop oseltamivir Take 1 capsule 10 capsule 0 11/19/19 (TAMIFLU) 75 MG (75 mg total) by 8 18 capsule mouth daily for 10 days. diazePAM (VALIUM) Take 1 tablet (10 30 tablet 5 05/08/20 10 MG mg total) by 8 18 tabletIndications: mouth nightly as Muscle spasm needed (stress, sleep, anxiety) for up to 180 days. HYDROcodone-acetami Take 1 tablet by 120 tablet 0 12/13/19 Discontinued nophen (NORCO) mouth every 6 8 18 10-325 mg per (six) hours as tabletIndications: needed for Scleroderma (HCC), moderate pain for Other chronic pain, up to 90 days. Generalized Max Daily Amount: abdominal pain 4 tablets amphetamine-dextroa TK 1 C PO ONCE D 0 02/08/20 mphetamine XR IN THE MORNING. 8 18 (ADDERALL XR) 20 MG 24 hr capsule spironolactone TAKE 1 TABLET BY 30 tablet 0 12/13/19 Discontinued (ALDACTONE) 25 MG MOUTH DAILY 8 18 tabletIndications: NEEDED(FLUID Fluid retention RETENTION-TAKE WITH LASIX) promethazine TAKE 1 TABLET(25 30 tablet 0 12/13/19 Discontinued (PHENERGAN) 25 MG MG) BY MOUTH 8 18 tabletIndications: EVERY 6 HOURS Nausea vomiting and NEEDED FOR NAUSEA diarrhea OR VOMITING betamethasone 0 01/11/20 Discontinued dipropionate 8 18 (DIPROLENE) 0.05 % cream topiramate Start 25 mg daily 60 tablet 1 01/11/20 Discontinued (TOPAMAX) 25 MG x 1-2 weeks, then 8 18 tablet increase to 50mg daily tiZANidine 1/2 - 1 tab po 90 tablet 1 05/20/20 Discontinued (ZANAFLEX) 4 MG nightly prn 8 18 tabletIndications: muscle spasms Muscle spasms of both lower extremities spironolactone Take 1 tablet (25 90 tablet 3 08/06/20 Discontinued (ALDACTONE) 25 MG mg total) by 8 18 tabletIndications: mouth daily. Fluid retention promethazine 50 mg q 8 hours 270 tablet 1 08/06/20 Discontinued (PHENERGAN) 50 MG prn 8 18 tabletIndications: nausea/vomiting Non-intractable vomiting with nausea, unspecified vomiting type HYDROcodone-acetami Take 1 tablet by 120 tablet 0 07/14/20 Discontinued nophen (NORCO) mouth every 6 8 18 10-325 mg per (six) hours as tabletIndications: needed for Scleroderma (HCC), moderate pain for Other chronic pain, up to 90 days. Generalized Max Daily Amount: abdominal pain 4 tablets furosemide (LASIX) Take 1 tablet (20 90 tablet 1 07/14/20 Discontinued 20 mg mg total) by 8 18 tabletIndications: mouth daily as Fluid retention needed (swelling). azithromycin Take 2 tablets 6 tablet 0 12/19/19 (ZITHROMAX) 250 MG the first day, 8 18 tabletIndications: then 1 tablet Cough daily for 4 days. hyoscyamine Take 1 tablet 180 tablet 1 01/13/20 (LEVSIN) 0.125 mg (0.125 mg total) 8 18 SL tablet by mouth every 6 (six) hours as needed for cramping or diarrhea for up to 30 days. topiramate 1/2 tablet in the 135 tablet 3 08/06/20 Discontinued (TOPAMAX) 100 MG morning and 1 8 18 tabletIndications: tablet in the Intractable chronic evening for migraine without headaches aura and without status migrainosus betamethasone Apply topically 2 45 g 1 01/21/20 dipropionate (two) times a day 8 18 (DIPROLENE) 0.05 % for 10 days. cream cyanocobalamin ADMINISTER 1 10 mL 0 04/22/20 Discontinued 1,000 mcg/mL ML(1000 MCG) 8 18 injection UNDER THE SKIN EVERY 7 DAYS cholecalciferol, Take 1 capsule 12 capsule 3 07/19/20 Discontinued vitamin D3, 50,000 (50,000 Units 8 18 unit capsule total) by mouth once a week. amLODIPine TAKE 1 TABLET(5 90 tablet 1 03/19/20 Discontinued (NORVASC) 5 mg MG) BY MOUTH 8 18 tablet DAILY FOR BLOOD PRESSURE amLODIPine Take 1 tablet (10 90 tablet 1 04/08/20 Discontinued (NORVASC) 10 mg mg total) by 8 18 tablet mouth daily. TAKE 1 TABLET(5 MG) BY MOUTH DAILY FOR BLOOD PRESSURE amphetamine-dextroa TK ONE C PO QAM 0 07/14/20 Discontinued mphetamine XR 8 18 (ADDERALL XR) 20 MG 24 hr capsule amLODIPine Take 1 tablet (5 90 tablet 1 09/08/20 Discontinued (NORVASC) 5 mg mg total) by 8 18 tablet mouth daily. For blood pressure amoxicillin Take 2 capsules 40 capsule 0 04/18/20 (AMOXIL) 500 MG (1,000 mg total) 8 18 capsuleIndications: by mouth 2 (two) Dental abscess times a day for 10 days. For h. Pylori gastritis ULTRA COMFORT USE DIRECTED 30 each 0 10/13/20 Discontinued INSULIN SYRINGE 1 ONCE WEEKLY 8 18 mL 28 gauge x 1/2" syringe NIFEdipine CC TK 1 T PO TID 0 05/20/20 Discontinued (ADALAT CC) 60 MG 8 18 24 hr tablet isosorbide Take 1 tablet (10 60 tablet 2 09/08/20 Discontinued mononitrate mg total) by 8 18 (ISMO,MONOKET) 10 mouth 2 (two) MG tablet times a day. baclofen (LIORESAL) Take 1 tablet (10 30 tablet 1 05/20/20 Discontinued 10 MG tablet mg total) by 8 18 mouth nightly as needed for muscle spasms for up to 30 days. baclofen (LIORESAL) TAKE 1 TABLET(10 90 tablet 1 08/06/20 Discontinued 10 MG tablet MG) BY MOUTH 8 18 EVERY NIGHT NEEDED FOR MUSCLE SPASMS DULoxetine Take 1 capsule 30 capsule 1 07/14/20 Discontinued (CYMBALTA) 30 MG (30 mg total) by 8 18 capsuleIndications: mouth daily. Moderate episode of recurrent major depressive disorder (HCC) DULoxetine TAKE 1 CAPSULE(30 90 capsule 1 09/15/20 Discontinued (CYMBALTA) 30 MG MG) BY MOUTH 8 18 capsuleIndications: DAILY Moderate episode of recurrent major depressive disorder (HCC) cholecalciferol, Take 1 capsule 12 capsule 3 09/11/20 Discontinued vitamin D3, 50,000 (50,000 Units 8 18 unit capsule total) by mouth once a week. DULoxetine TAKE 1 CAPSULE(30 30 capsule 0 09/08/20 Discontinued (CYMBALTA) 30 MG MG) BY MOUTH 8 18 capsuleIndications: DAILY Moderate episode of recurrent major depressive disorder (HCC) topiramate TAKE 1/2 TABLET 135 tablet 0 09/08/20 Discontinued (TOPAMAX) 100 MG BY MOUTH EVERY 8 18 tabletIndications: MORNING AND 1 Intractable chronic TABLET BY MOUTH migraine without EVERY EVENING FOR aura and without HEADACHES status migrainosus levoFLOXacin Take 1 tablet 10 tablet 0 08/22/20 (LEVAQUIN) 500 MG (500 mg total) by 8 18 tabletIndications: mouth daily for Dental abscess 10 days. Hospital, Clinic, or Other Ordered Dose Route Frequency Start Date End Date Status Facility Administered Medication methylPREDNISolone acetate 80 mg IM once 05/19/2018 05/19/2018 Ended (DEPO-MEDROL) injection 80 mgIndications: Elevated sedimentation rate Active Problems Problem Noted Date Costochondritis 09/26/2018 Intractable vomiting with nausea 09/26/2018 Insulin resistance 08/13/2018 Chest pain, atypical 06/16/2018 Nausea 06/16/2018 Chronic diarrhea 06/16/2018 Raynaud's disease 04/09/2018 Urticaria 11/24/2017 Fluid retention [...] Encounters Date Type Specialty Care Team Description 10/13/2018 Refill Internal Medicine Higinio Meza Fluid retention MD Tamir 09/26/2018 Orders Only Internal Medicine Higinio Meza Intractable vomiting with nausea, unspecified vomiting type (Primary Dx); MD Tamir Scleroderma (HCC); Chronic pain syndrome; Generalized abdominal pain; Chest pain, atypical; Costochondritis 09/15/2018 Orders Only Internal Medicine Higinio Meza MD 09/11/2018 Orders Only Internal Medicine Higinio Meza MD 09/08/2018 Office Visit Internal Medicine Higinio Meza Occasional tremors (Primary Dx); MD Tamir Chronic nonintractable headache, unspecified headache type; Seizure-like activity (HCC); Essential hypertension; Urinary retention; B12 deficiency; Other iron deficiency anemia; Vitamin D deficiency; Raynaud's disease without gangrene; Myalgia 08/12/2018 Office Visit Internal Medicine Higinio Meza Dental abscess ( Primary Dx); MD Tamir Attention deficit disorder (ADD) without hyperactivity; Scleroderma (HCC); Other iron deficiency anemia; Chronic pain syndrome; Insulin resistance 08/06/2018 Refill Internal Medicine Higinio Meza Non-intractable vomiting with nausea, unspecified vomiting type; MD Tamir Moderate episode of recurrent major depressive disorder; Fluid retention; Intractable chronic migraine without aura and without status migrainosus 08/04/2018 Telephone Internal Medicine Higinio Meza MD 07/19/2018 Orders Only Internal Higinio Luis MD 07/14/2018 Office Visit Internal Medicine Higinio Meza Bloating (Primary Dx); MD Tamir Vitamin D deficiency; Elevated liver enzymes; Attention deficit disorder (ADD) without hyperactivity; Moderate episode of recurrent major depressive disorder; Fluid retention; Scleroderma; Other chronic pain; Generalized abdominal pain; On intermediate drug therapy; Food intolerance; Iron deficiency anemia due to chronic blood loss 07/14/2018 Refill Internal Medicine Higinio Meza Moderate episode of MD Tamir recurrent major depressive disorder 06/16/2018 Office Visit Internal Medicine Higinio Meza Scleroderma ( Primary Dx); MD Tamir Chronic pain syndrome; Chest pain, atypical; Nausea; Chronic diarrhea; Attention deficit disorder (ADD) without hyperactivity 06/07/2018 Documentation Internal Medicine Higinio Meza MD 05/30/2018 Orders Only Internal Medicine Higinio Meza Atypical chest pain MD Tamir (Primary Dx) 05/25/2018 Telephone Internal Medicine Adelia Garland MA 05/20/2018 Refill Internal Medicine Higinio Meza MD 05/20/2018 Orders Only Internal Medicine Higinio Meza MD 05/20/2018 Telephone Internal Higinio Luis MD 05/19/2018 Office Visit Internal Medicine Higinio Meza Elevated sedimentation rate (Primary Dx); MD Tamir Costochondritis; Hospital discharge follow-up; Scleroderma; Attention deficit disorder (ADD) without hyperactivity 05/09/2018 Telephone [facility] Medicine Higinio Meza MD 04/22/2018 Telephone Internal Medicine Higinio Meza MD 04/22/2018 Refill Internal Medicine Higinio Meza MD 04/08/2018 Office Visit Internal Medicine Higinio Meza Dental abscess ( Primary Dx); MD Tamir Attention deficit disorder (ADD) without hyperactivity; Generalized abdominal pain; Other iron deficiency anemia; Raynaud's disease without gangrene; Scleroderma 03/19/2018 Orders Only Internal Medicine Higinio Meza MD 03/19/2018 Orders Only Internal Medicine Higinio Meza MD 03/12/2018 Orders Only Internal Medicine Higinio Meza MD 03/09/2018 Office Visit Internal Higinio Luis Adjustment disorder with mixed anxiety and depressed mood (Primary Dx); MD Tamir Attention deficit disorder (ADD) without hyperactivity; Scleroderma; Other iron deficiency anemia 02/14/2018 Refill Internal Medicine Higinio Meza MD 02/09/2018 Office Visit Internal Medicine Higinio Meza Attention deficit disorder (ADD) without hyperactivity (Primary Dx); MD Tamir B12 deficiency; Chronic pain syndrome; History of urinary retention; Other iron deficiency anemia; Scleroderma; Vitamin D deficiency; Screening for lipoid disorders; Screening for diabetes mellitus; Abnormal blood chemistry; Fatigue, unspecified type; Long-term use of high-risk medication 01/26/2018 Orders Only Internal Higinio Luis Adjustment disorder with mixed anxiety and depressed mood (Primary Dx); MD Tamir Primary insomnia; Chronic pain syndrome 01/23/2018 Refill Internal Medicine Higinio Meza MD 01/20/2018 Orders Only Internal Medicine Toni, Intractable chronic migraine without aura and without status migrainosus; [place], [place] New daily persistent headache 01/10/2018 Office [...] deficiency anemia; Muscle spasm; Other chronic pain after 10/15/2017 Immunizations Name Dates Previously Given Next Due [...] Assigned at Date Recorded Not on file Job Start Date Occupation Industry Not on file Not on file Not on file Travel History Travel Start Travel End No recent travel history available. Last Filed Vital Signs Vital Sign Reading Time Taken Blood Pressure 128/93 09/08/2018 1:01 PM CDT Pulse 104 09/08/2018 1:01 PM CDT Temperature 36.7 C (98.1 F) 06/16/2018 2:48 PM CDT Respiratory Rate 20 09/08/2018 1:01 PM CDT Oxygen Saturation 99% 09/08/2018 1:01 PM CDT Inhaled Oxygen Concentration - - Weight 95.6 kg (210 lb 12.8 oz) 09/08/2018 1:01 PM CDT Height 167.6 cm (5' 6") 09/08/2018 1:01 PM CDT Body Mass Index 34.02 09/08/2018 1:01 PM CDT Plan of Treatment Date Type Specialty Care Team Description 11/02/2018 Office Visit [place] [address] [place] [address] [phone] Health Maintenance Due Date Last Done Comments CERVICAL CANCER SCREENING 1996 INFLUENZA VACCINE 06/08/2018 08/20/2016 HEPATITIS B VACCINES Aged Out No longer eligible based on patient's age to complete this topic IPV VACCINES Aged Out No longer eligible based on patient's age to complete this topic MENINGOCOCCAL VACCINE Aged Out No longer eligible based on patient's age to complete this topic Procedures Procedure Name Priority Date/Time Associated Diagnosis Comments URINALYSIS, COMPLETE, Routine 09/08/2018 2:11 Results for this WITH REFLEX TO CULTURE PM CDT procedure are in the results section. VITAMIN D 25 HYDROXY Routine 09/08/2018 2:11 Occasional tremors Results for this LEVEL PM CDT Essential procedure are in hypertension the results Vitamin D deficiency section. VITAMIN B12 LEVEL Routine 09/08/2018 2:11 Occasional tremors Results for this PM CDT Essential procedure are in hypertension the results B12 deficiency section. CRP HIGH SENSITIVITY Routine 09/08/2018 2:11 Occasional tremors Results for this PM CDT Essential procedure are in hypertension the results section. MAGNESIUM, RBC Routine 09/08/2018 2:11 Occasional tremors Results for this PM CDT Essential procedure are in hypertension the results section. CREATINE KINASE, TOTAL Routine 09/08/2018 2:11 Occasional tremors Results for this (CPK) PM CDT Essential procedure are in hypertension the results Myalgia section. COMPREHENSIVE Routine 09/08/2018 2:11 Occasional tremors Results for this METABOLIC PANEL PM CDT Essential procedure are in hypertension the results section. FERRITIN LEVEL Routine 09/08/2018 2:11 Occasional tremors Results for this PM CDT Essential procedure are in hypertension the results Other iron section. deficiency anemia CBC WITH PLATELET AND Routine 09/08/2018 2:11 Occasional tremors Results for this DIFFERENTIAL PM CDT Seizure-like procedure are in activity (HCC) the results Essential section. hypertension Other iron deficiency anemia FERRITIN LEVEL Routine 07/14/2018 3:51 Results for this PM CDT procedure are in the results section. CELIAC DISEASE PANEL Routine 07/14/2018 3:51 Generalized Results for this PM CDT abdominal pain procedure are in On intermediate drug the results therapy section. Food intolerance FOOD ALLERGY PANEL Routine 07/14/2018 3:51 Bloating Results for this PM CDT Generalized procedure are in abdominal pain the results On intermediate drug section. therapy Food intolerance LIPASE LEVEL Routine 07/14/2018 3:51 Bloating Results for this PM CDT Other chronic pain procedure are in Generalized the results abdominal pain section. On intermediate drug therapy AMYLASE LEVEL Routine 07/14/2018 3:51 Bloating Results for this PM CDT Generalized procedure are in abdominal pain the results On intermediate drug section. therapy SEDIMENTATION RATE Routine 07/14/2018 3:51 Bloating Results for this PM CDT On intermediate drug procedure are in therapy the results section. CRP HIGH SENSITIVITY Routine 07/14/2018 3:51 Bloating Results for this PM CDT On intermediate drug procedure are in therapy the results section. MAGNESIUM LEVEL Routine 07/14/2018 3:51 Bloating Results for this PM CDT On intermediate drug procedure are in therapy the results section. INSULIN, RANDOM Routine 07/14/2018 3:51 Bloating Results for this PM CDT On smoking tobacco packing machine hand drug procedure are in therapy the results section. THYROID STIMULATING Routine 07/14/2018 3:51 Bloating Results for this HORMONE PM CDT Scleroderma procedure are in Other chronic pain the results On intermediate drug section. 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 Fluid retention On intermediate drug therapy VITAMIN D 25 HYDROXY Routine 07/14/2018 3:51 Bloating Results for this LEVEL PM CDT Vitamin D deficiency procedure are in On smoking tobacco packing machine hand drug the results therapy section. COMPREHENSIVE Routine 07/14/2018 3:51 Bloating Results for this METABOLIC PANEL PM CDT Elevated liver procedure are in enzymes the results Fluid retention section. On intermediate drug therapy CBC WITH PLATELET AND Routine 07/14/2018 3:51 Bloating Results for this DIFFERENTIAL PM CDT Generalized procedure are in abdominal pain the results On smoking tobacco packing machine hand drug section. therapy C-REACTIVE PROTEIN Routine 03/09/2018 2:04 Scleroderma Results for this PM CDT procedure are in the results section. SEDIMENTATION RATE Routine 03/09/2018 2:04 Scleroderma Results for this PM CDT procedure are in the results section. MAGNESIUM LEVEL Routine 03/09/2018 2:04 Abnormal blood Results for this PM CDT chemistry procedure are in Fatigue, unspecified the results type section. Long-term use of high-risk medication [...] 25 HYDROXY Routine 03/09/2018 2:04 Vitamin D deficiency Results for this LEVEL PM CDT Abnormal blood procedure are in chemistry the results Fatigue, unspecified section. type Long-term use of high-risk medication VITAMIN B12 LEVEL Routine 03/09/2018 2:04 B12 deficiency Results for this PM CDT Abnormal blood procedure are in chemistry the results Fatigue, unspecified section. type Long-term use of high-risk medication THYROID STIMULATING Routine 03/09/2018 2:04 Abnormal blood Results for this HORMONE PM CDT chemistry procedure are in Fatigue, unspecified the results type section. Long-term use of high-risk medication LIPID PANEL Routine 03/09/2018 2:04 Screening for lipoid Results for this PM CDT disorders procedure are in Abnormal blood the [...] PM CDT chemistry procedure are in Fatigue, unspecified the results type section. Long-term use of high-risk medication CBC WITH PLATELET AND Routine 03/09/2018 2:04 Other iron Results for this DIFFERENTIAL PM CDT deficiency anemia procedure are in Abnormal blood the results chemistry section. Fatigue, unspecified type Long-term use of high-risk medication AMB REFERRAL TO Routine 02/09/2018 HEMATOLOGY / ONCOLOGY AMB REFERRAL TO Routine 02/09/2018 PSYCHOLOGY AMB REFERRAL TO Routine 02/09/2018 CHIROPRACTIC MRI BRAIN WO CONTRAST Routine 01/20/2018 3:50 Intractable chronic Results for this PM CDT migraine without procedure are in aura and without the results status migrainosus section. New daily persistent headache ECG 12-LEAD Routine 01/10/2018 1:56 Elevated blood Results for this PM PAIR[facility] ODDS pressure reading procedure are in Palpitations the results section. POCT INFLUENZA A/B Routine 11/09/2017 1:54 Exposure to the flu Results for this PM PAIRER ODDS procedure are in the results section. after 10/15/2017 Results URINALYSIS, COMPLETE, WITH REFLEX TO CULTURE (09/08/2018 2:11 PM CDT) Color, UA YELLOW YELLOW [facility] [place] Appearance CLEAR CLEAR [facility] [place] Specific gravity, urine 1.009 1.001 - 1.035 [facility] [place] pH, urine 6.0 5.0 - 8.0 [facility] [place] Glucose, urine NEGATIVE NEGATIVE [facility] [place] Bilirubin, UA NEGATIVE NEGATIVE [facility] [place] Ketones, UA NEGATIVE NEGATIVE [facility] [place] Occult blood, urine NEGATIVE NEGATIVE [facility] [place] Protein, UA NEGATIVE NEGATIVE [facility] [place] Nitrite, UA NEGATIVE NEGATIVE [facility] [place] Leukocyte esterase, UA NEGATIVE NEGATIVE [facility] [place] WBC, UA NONE SEEN < OR=5 /HPF [facility] [place] RBC, UA NONE SEEN < OR=2 /HPF [facility] [place] Squamous epithelial NONE SEEN < OR=5 /HPF [facility] [place] cells, UA Bacteria, UA NONE SEEN NONE SEEN /HPF [facility] [place] Hyaline casts, UA NONE SEEN NONE SEEN /LPF [facility] [place] Reflex NO CULTURE INDICATED [facility] [place] Narrative Performed At FASTING:UNKNOWN [facility] FASTING: UNKNOWN Resulting Agency Comment Performing Organization Information: Site ID: [id number] Name: [facility] Address: [address] [place] [address] Director: Marcy Maher Performing Organization Address City/State/Zipcode Phone Number [employer] [place] [address] [place] [address] Vitamin D 25 hydroxy level (09/08/2018 2:11 PM CDT)Only the most recent of3 resultswithin the time period is included. Vitamin D, 25-hydroxy 16 (L) 30 - 100 ng/mL [facility] Comment: [place] Vitamin D Status 25-OH Vitamin D: Deficiency:<20 ng/mL Insufficiency: 20 - 29 ng/mL Optimal: > or=30 ng/mL For 25-OH Vitamin D testing on patients on D2-supplementation and patients for whom quantitation of D2 and D3 fractions is required, the QuestAssureD(TM) 25-OH VIT D, (D2,D3), LC/MS/MS is recommended: order code 45178 (patients >2yrs). For more information on this test, go to: http://education.Employma/faq/HOC454 (This link is being provided for informational/educational purposes only.) Specimen Blood Narrative Performed At FASTING:UNKNOWN [facility] FASTING: UNKNOWN Resulting Agency Comment Performing Organization Information: Site ID: [id number] Name: [facility] Address: [address] [place] [phone] Director: Marcy Maher Performing Organization Address City/State/Zipcode [place] [address] CBC with platelet and differential (09/08/2018 2:11 PM CDT)Only the most recent of3 resultswithin the time period is included. WBC 7.8 3.8 - 10.8 Thousand/uL [facility] [place] RBC 4.06 3.80 - 5.10 Million/uL [facility] [place] HGB 12.4 11.7 - 15.5 g/dL [facility] [place] HCT 36.7 35.0 - 45.0 % [facility] [place] MCV 90.4 80.0 - 100.0 fL [facility] [place] MCH 30.5 27.0 - 33.0 pg [facility] [place] MCHC 33.8 32.0 - 36.0 g/dL [facility] [place] RDW 13.6 11.0 - 15.0 % [facility] [place] Platelet count 295 140 - 400 Thousand/uL [facility] [place] MPV 10.2 7.5 - 12.5 fL [facility] [place] Neutrophils, absolute 5,312 1,500 - 7,800 cells/uL [facility] [place] Lymphocytes, absolute 1,630 850 - 3,900 cells/uL [facility] Monocytes, absolute 476 200 - 950 cells/uL [facility] Eosinophils, absolute 359 15 - 500 cells/uL [facility] Basophils, absolute 23 0 - 200 cells/uL [facility] Neutrophils 68.1 % [facility] Lymphocytes 20.9 % [facility] Monocytes 6.1 % [facility] Eosinophils 4.6 % [facility] Basophils + RC 0.3 % [facility] Specimen Blood Narrative Performed At FASTING:UNKNOWN [facility] FASTING: UNKNOWN Resulting Agency Comment Performing Organization Information: Site ID: [id number] Name: [facility] Address: [address] [place] [phone] Director: Marcy Maher Performing Organization Address City/State/Zipcode Phone Number [facility] [address] [address] CRP high sensitivity (09/08/2018 2:11 PM CDT)Only the most recent of2 resultswithin the time period is included. CRP, high sensitivity 4.9 (H) mg/L [facility] Comment: II Higher relative cardiovascular risk according to AHA/CDC guidelines. Consider retesting in 1 to 2 weeks to exclude a benign transient elevation in the baseline CRP value secondary to infection or inflammation. For ages >17 Years: hs-CRP mg/LRisk According to AHA/CDC Guidelines <1.0 Lower relative cardiovascular risk. 1.0-3.0Average relative cardiovascular risk. 3.1-10.0 Higher relative cardiovascular risk. Consider retesting in 1 to 2 weeks to exclude a benign transient elevation in the baseline CRP value secondary to infection or inflammation. >10.0Persistent elevation, upon retesting, may be associated with infection and inflammation. Specimen Blood Narrative Performed At FASTING:UNKNOWN [facility] FASTING: UNKNOWN Resulting Agency Comment Performing Organization Information: Site ID: [id number] Name: [facility] Address: [address] [place] [address] Director: Dr. Krunal Pettit Performing Organization Address City/[facility]/Zipcode Phone Number [facility] II [address] [facility] [place] [address] Magnesium, RBC (09/08/2018 2:11 PM CDT) Magnesium RBC 4.2 4.0 - 6.4 mg/dL [facility] [place] Comment: JO ANN This test was developed and its analytical performance characteristics have been determined by [facility] Jo Ann. It has not been cleared or approved by the US Food and Drug Administration. This assay has been validated pursuant to the CLIA regulations and is used for clinical purposes. Specimen Blood Narrative Performed At FASTING:UNKNOWN [facility] FASTING: UNKNOWN Resulting Agency Comment Performing Organization Information: Site ID: [id number] Name: [facility] Address: [address] [place] [phone] Director: Beto Martin M.D., Ph.D Performing Organization Address [facility] Hospital[facility] Phone Number [facility] [address] [address] Ferritin level (09/08/2018 2:11 PM CDT)Only the most recent of3 resultswithin the time period is included. Ferritin level 10 10 - 232 ng/mL [facility] [place] Specimen Blood Narrative Performed At FASTING:UNKNOWN [facility] FASTING: UNKNOWN Resulting Agency Comment Performing Organization Information: Site ID: RGA Name: [facility] Address: [address] [place] [phone] Director: Marcy Maher Performing Organization Address [facility] [place] [address] Vitamin B12 level (09/08/2018 2:11 PM CDT)Only the most recent of3 resultswithin the time period is included. Vitamin B12 606 200 - 1,100 pg/mL [facility] [place] Specimen Blood Narrative Performed At FASTING:UNKNOWN [facility] FASTING: UNKNOWN Resulting Agency Comment Performing Organization Information: Site ID: A Name: [facility] Address: [address] [place] [phone] Director: Marcy Maher Performing Organization Address [facility] [place] [address] Creatine kinase, total (CPK) (09/08/2018 2:11 PM CDT) Creatine kinase 48 29 - 143 U/L [facility] [place] Specimen Blood Narrative Performed At FASTING:UNKNOWN [facility] FASTING: UNKNOWN Resulting Agency Comment Performing Organization Information: Site ID: [id number] Name: [facility] Address: [address] [place] [phone] Director: Marcy Maher Performing Organization Address City/[facility] Hospitalcode Phone Number [employer] [address] [address] Comprehensive metabolic panel (09/08/2018 2:11 PM CDT)Only the most recent of3 resultswithin the time period is included. Glucose 83 65 - 99 mg/dL [facility] Comment: [place] Fasting reference interval BUN, whole blood 11 7 - 25 mg/dL [facility] [place] Creatinine 0.50 0.50 - 1.10 mg/dL [facility] [place] EGFR Non-Afr. South [place] 119 > OR=60 [facility] mL/min/1.73m2 [place] EGFR 138 > OR=60 [facility] mL/min/1.73m2 [place] BUN/creatinine ratio NOT APPLICABLE 6 - 22 (calc) [facility] [place] Sodium 138 135 - 146 mmol/L [facility] [place] Potassium 4.2 3.5 - 5.3 mmol/L [facility] [place] Chloride 102 98 - 110 mmol/L [facility] [place] CO2 28 20 - 32 mmol/L [facility] [place] Calcium 8.8 8.6 - 10.2 mg/dL [facility] [place] Protein 6.9 6.1 - 8.1 g/dL [facility] [place] Albumin, S 4.1 3.6 - 5.1 g/dL [facility] [place] Globulin, total 2.8 1.9 - 3.7 g/dL [facility] (calc) [place] Albumin/globulin ratio 1.5 1.0 - 2.5 (calc) [facility] [place] Total bilirubin 0.3 0.2 - 1.2 mg/dL [facility] [place] Alkaline phosphatase 122 (H) 33 - 115 U/L [facility] [place] AST 22 10 - 30 U/L [facility] [place] ALT 25 6 - 29 U/L [facility] [place] Specimen Blood Narrative Performed At FASTING:UNKNOWN [facility] FASTING: UNKNOWN Resulting Agency Comment Performing Organization Information: Site ID: [id number] Name: [facility] Address: [address] [place] [phone] Director: Marcy Maher Performing Organization Address City/[facility] Hospitalcode Phone Number [employer] [address] [address] Food allergy panel (07/14/2018 3:51 PM CDT) Egg white IgE <0.10 kU/L [facility] II Egg white class 0 [facility] II Peanut IgE <0.10 kU/L [facility] II Peanut class 0 [facility] II Wheat IgE <0.10 kU/L [facility] II Wheat class 0 [facility] II [place] <0.10 kU/L [facility] II Walnuts class 0 [facility] II Codfish IgE <0.10 kU/L [facility] II Codfish class 0 [facility] II Milk IgE <0.10 kU/L [facility] II Milk class 0 [facility] II Soybean IgE <0.10 kU/L [facility] II Soybean class 0 [facility] II [place] <0.10 kU/L [facility] II [place] class 0 [facility] II Shrimp IgE 0.41 (H) kU/L [facility] II Shrimp class 1 [facility] II Scallop IgE <0.10 kU/L [facility] II Scallop class 0 [facility] II Clams <0.10 kU/L [facility] II Clams class 0 [facility] II Sesame Seed IgE <0.10 kU/L [facility] II Sesame seed class 0 [facility] II Interpretation [facility] Comment: II SpecificLevel of Allergen IGE ClasskU/L Specific IGE Antibody ----- 0<0.10 Absent/ Undetectable 0/10.10-0.34 Very Low Level 10.35-0.69 Low Level 20.70-3.49 Moderate Level 33.50-17.4 High Level 417.5-49.9 Very High Level 550-100Very High Level 6>100Very High Level The clinical relevance of allergen results of 0.10-0.34 kU/L are undetermined and intended for specialist use. Allergens denoted with a "" include results using one or more analyte specific reagents. In those cases, the test was developed and its analytical performance characteristics have been determined by [facility]Instruction by [facility]. It has not been cleared or approved by the U.S. Food and Drug Administration. This assay has been validated pursuant to the CLIA regulations and is used for clinical purposes. Narrative Performed At FASTING:YES [facility] COLLECTION REQUIREMENTS NOT MET. PATIENT ADVISED TO RETURN. FASTING: YES Resulting Agency Comment Performing Organization Information: Site ID: Name: [facility] Address: [address] [place] [phone] Director: Dr. Krunal Pettit Performing Organization Address City/[facility] Hospitalcode Phone Number [employer] II [address] [place] [address]. [place] [address] Celiac disease panel (07/14/2018 3:51 PM CDT) Interpretation SEE NOTE [facility] Comment: DIAGNOSTICS/Affirm No serological evidence of celiac disease. [facility] tTG IgA may normalize in individuals with celiac disease who maintain a gluten-free diet. Consider HLA DQ2 and DQ8 testing to rule out celiac disease. Celiac disease is extremely rare in the absence of DQ2 or DQ8. Tissue transglutaminase Ab, <1 U/mL [facility] IgA Comment: DIAGNOSTICS/Affirm [facility] <4 No Antibody Detected > OR=4 Antibody Detected IgA 260 81 - 463 mg/dL [facility] Specimen Blood Narrative Performed At FASTING:YES [facility] COLLECTION REQUIREMENTS NOT MET. PATIENT ADVISED TO RETURN. FASTING: YES Resulting Agency Comment Performing Organization Information: Site ID: EZ Name: [facility] [place] [facility], Address: [address] [place] [phone] Director: Erin Ching MD,PhD,ARCENIO Performing Organization Address City/[facility]/Zipcode Phone Number [employer] [phone] [place] [address] [facility] Insulin, random (07/14/2018 3:51 PM CDT) Insulin 40.6 (H) 2.0 - 19.6 uIU/mL [employer] II Comment: This insulin assay shows strong cross-reactivity for some insulin analogs (lispro, aspart, and glargine) and much lower cross-reactivity with others (detemir, glulisine). Specimen Blood Narrative Performed At FASTING:YES [facility] COLLECTION REQUIREMENTS NOT MET. PATIENT ADVISED TO RETURN. FASTING: YES Resulting Agency Comment Performing Organization Information: Site ID: [id number] Name: [facility] Address: [address] [place] [phone] Director: Dr. Krunal Pettit Performing Organization Address City/State/[facility] Hospitalcode Phone Number [facility] [employer] [address] Sedimentation rate (07/14/2018 3:51 PM CDT)Only the most recent of2 resultswithin the time period is included. Sedimentation rate 19 < OR=20 mm/h [facility] [place] Specimen Blood Narrative Performed At FASTING:YES [facility] COLLECTION REQUIREMENTS NOT MET. PATIENT ADVISED TO RETURN. FASTING: YES Resulting Agency Comment Performing Organization Information: Site ID: DAMIENA Name: [facility] Address: [address] [place] [phone] Director: Marcy Maher Performing Organization Address [facility] Phone Number [employer] [address] [address] Thyroid stimulating hormone (07/14/2018 3:51 PM CDT)Only the most recent of2 resultswithin the time period is included. TSH 2.18 mIU/L [facility] [place] Comment: Reference Range > or=20 Years0.40-4.50 Ranges First trimester0.26-2.66 Second trimester 0.55-2.73 Third trimester0.43-2.91 Specimen Blood Narrative Performed At FASTING:YES [facility] COLLECTION REQUIREMENTS NOT MET. PATIENT ADVISED TO RETURN. FASTING: YES Resulting Agency Comment Performing Organization Information: Site ID: DAMIENA Name: [facility] Address: [address] [place] [phone] Director: Marcy Maher Performing Organization Address City/[facility] Phone Number [employer] [address] [address] Magnesium level (07/14/2018 3:51 PM CDT)Only the most recent of2 resultswithin the time period is included. Magnesium 2.3 1.5 - 2.5 mg/dL [facility] [place] Specimen Blood Narrative Performed At FASTING:YES [facility] COLLECTION REQUIREMENTS NOT MET. PATIENT ADVISED TO RETURN. FASTING: YES Resulting Agency Comment Performing Organization Information: Site ID: [facility] Name: [facility] Address: [address] [place] [address] Director: Marcy Maher Performing Organization Address [facility] Phone Number [facility] [place] [place] [address] Lipase level (07/14/2018 3:51 PM CDT) Lipase 36 7 - 60 U/L [facility] Specimen Blood Narrative Performed At FASTING:YES [facility] COLLECTION REQUIREMENTS NOT MET. PATIENT ADVISED TO RETURN. FASTING: YES Resulting Agency Comment Performing Organization Information: Site ID: [facility] Name: [facility] [employer] [facility] Address: [address] [place] [phone] Director: Marcy Maher Performing Organization Address [facility] [place] [address] Amylase level (07/14/2018 3:51 PM CDT) Amylase 34 21 - 101 U/L [facility] Specimen Blood Narrative Performed At FASTING:YES [facility] COLLECTION REQUIREMENTS NOT MET. PATIENT ADVISED TO RETURN. FASTING: YES Resulting Agency Comment Performing Organization Information: Site ID: [facility] Name: [facility] Address: [address] [place] [phone] Director: Marcy Maher Performing Organization Address [facility] Phone Number [facility] [place] [place] [address] Total iron binding capacity (03/09/2018 2:04 PM CDT) Iron level 33 (L) 40 - 190 mcg/dL [facility] [place] Iron binding capacity 466 (H) 250 - 450 mcg/dL (calc) [facility] [place] Iron saturation 7 (L) 11 - 50 % (calc) [facility] [place] Specimen Blood Narrative Performed At PATIENT UNABLE TO VOID; ADVISED TO RETURN FOR COLLECTION. [facility] Resulting Agency Comment Performing Organization Information: Site ID: [facility] Name: [facility] Address: [address] [place] [phone] Director: Marcy Maher Performing Organization Address City/[facility]code Phone Number [employer] [place] [address] [place] [address] C-reactive protein (03/09/2018 2:04 PM CDT) CRP 5.0 <8.0 mg/L [facility] [place] Specimen Blood Narrative Performed At PATIENT UNABLE TO VOID; ADVISED TO RETURN FOR COLLECTION. [facility] Resulting Agency Comment Performing Organization Information: Site ID: [facility] Name: [facility] Address: [address] [place] [phone] Director: Marcy Maher Performing Organization Address [facility] Phone Number [facility] [address] [address] Hemoglobin A1c (03/09/2018 2:04 PM CDT) Hemoglobin A1C 5.3 <5.7 % of total Hgb [facility] Comment: For the purpose of screening for the presence of diabetes: <5.7% Consistent with the absence of diabetes 5.7-6.4%Consistent with increased risk for diabetes (prediabetes) > or=6.5%Consistent with diabetes This assay result is consistent with a decreased risk of diabetes. Currently, no consensus exists regarding use of hemoglobin A1c for diagnosis of diabetes in children. According to [place] Diabetes Association (ADA) guidelines, hemoglobin A1c <7.0% represents optimal control in non- diabetic patients. Different metrics may apply to specific patient populations. Standards of Medical Care in Diabetes(ADA). Specimen Blood Narrative Performed At PATIENT UNABLE TO VOID; ADVISED TO RETURN FOR COLLECTION. [facility] Resulting Agency Comment Performing Organization Information: Site ID: [facility] Name: [facility] Address: [address] [place] [phone] Director: Marcy Maher Performing Organization Address [facility] Hospitalcode Phone Number [facility] [address] [address] Lipid panel (03/09/2018 2:04 PM CDT) Cholesterol, total 223 (H) <200 mg/dL [facility] HDL cholesterol 44 (L) >50 mg/dL [facility] Triglycerides 146 <150 mg/dL [facility] LDL cholesterol 151 (H) mg/dL (calc) [facility] calculated Comment: [place] Reference range: <100 Desirable range <100 mg/dL for primary prevention; <70 mg/dL for patients with CHD or diabetic patients with > or=2 CHD risk factors. LDL-C is now calculated using the Gonzalo calculation, which is a validated novel method providing better accuracy than the Friedewald equation in the estimation of LDL-C. Kade BERG et al. BRANDI. 2013;310(19): 6144-9457 (http://education.Publicate/faq/NWO362) Cholesterol/HDL ratio 5.1 (H) <5.0 (calc) [facility] [place] Non-HDL cholesterol 179 (H) <130 mg/dL [facility] Comment: (calc) [place] For patients with diabetes plus 1 major ASCVD risk factor, treating to a non-HDL-C goal of <100 mg/dL (LDL-C of <70 mg/dL) is considered a therapeutic option. Specimen Blood Narrative Performed At PATIENT UNABLE TO VOID; ADVISED TO RETURN FOR COLLECTION. [facility] Resulting Agency Comment Performing Organization Information: Site ID: RGA Name: [facility] Address: [address] [place] [phone] Director: Marcy Maher Performing Organization Address City/[facility]/Zipcode Phone Number [employer] [place] [phone] Ambulatory referral to Psychology (02/09/2018) Narrative Performed At Ambulatory referral to Hematology / Oncology (02/09/2018) Narrative Performed At Ambulatory referral to Chiropractic (02/09/2018) Narrative Performed At MRI Brain Wo Contrast (01/20/2018 3:50 PM CDT) Narrative Performed At Performing Organization Address City/[facility]/Zipcode Phone Number [facility] [address] [place] [address] ECG 12 lead (01/10/2018 1:56 PM PAIRER ODDS) Ventricular rate 67 [facility] Atrial rate 67 [facility] [place] interval 172 [facility] M[facility] QRSD interval 80 [facility] MUSE QT interval 426 [facility] M[facility] QTC interval 450 [facility] M[facility] P axis 1 29 [facility] QRS axis 1 12 [facility] M[facility] T wave axis 9 [facility] EKG impression Normal sinus rhythm-Normal ECG-No previous [facility] ECGs available- Performing Organization Address City/State/Zipcode Phone Number [facility] [address] [place] [address] POC Influenza A/B (11/09/2017 1:54 PM PAIRER ODDS) Rapid Influenza A Ag Neg Rapid Influenza B Ag Neg Specimen Nasopharyngeal after 10/15/2017 Insurance Payer Benefit Plan / Group Subscriber ID Type Phone Address AETNA MEDICARE AETNA MEDICARE HMO/PPO [facility] xxxxxxxx HMO (Home) [place], [place] [phone] (Work) Advance Directives Patient has advance care planning documents on file. For more information, please contact:Lonnie [id number] [place] [address]
--- OUTSIDE RECORDS SUMMARY | 2018-10-16 17:45 | XMS REPORT | Continuity of Care Document ---
[...] 1 tablet Active HYDROBROMIDE 10 MG daily 2014 [facility] TABS Group PROMETHAZINE HCL 25 1 [...] No TABS Longer 2013 Medical Active Group PREDNISONE 10 [...] Active MH (ERGOCALCIFEROL) capsule by 2013 Medical 06483 UNIT CAPS mouth every Group week for 12 weeks VITAMIN D Take 1 No 04/04/ MH (ERGOCALCIFEROL) capsule by Longer 2013 Medical 45387 UNIT CAPS mouth every Active Group week for 12 weeks VITAMIN D Take 1 No 04/04/ MH (ERGOCALCIFEROL) capsule by Longer 2013 Medical 36572 UNIT CAPS mouth every Active Group week [...] For Provider Date Date Visit [facility] [id number] Zenithe 03/24 03/24 Ezra Visit 980 MD Tamir /2013 [facility] Lab Report [id number] Zenithe 03/26 03/26 [place] 980 MD Tamir /2013 [facility] Lab Report [id number] Zenithe 04/27 04/27 Ezra 710 MD Tamir /2013 [facility] Lab Report [id number] Zenithe 07/17 07/17 Ezra 360 MD Tamir /2013 [facility] Office [id number] Zenithe 10/03 10/03 MH Ezra Visit 120 MD Tamir /2013 [facility] Office [id number] Zenithe 10/26 10/26 MH Ezra Visit 280 MD Tamir /2013 [facility] Office [id number] Zenithe 11/13 11/13 MH [place] Visit 140 MD Tamir /2014 [facility] Office [id number] Zenithe 12/10 12/10 MH [place] Visit 320 MD Tamir /2014 [facility] Lab Report [id number] Zenithe 12/20 12/20 [place] 760 MD Tamir /2014 [facility] Office [id number] Zenithe 01/10 01/10 MH Ezra Visit 400 MD Tamir /2014 [facility] Lab Report [id number] Zenithe 02/15 02/15 Ezra 090 MD Tamir /2014 [facility] Office [id number] Zenithe 03/22 03/22 [place] Visit 690 MD Tamir /2014 [facility] Lab Report [id number] Zenithe 04/11 04/11 Ezra 120 MD Tamir /2014 [facility] Office [id number] Zenithe 04/12 04/12 Ezra Visit 360 MD Tamir /2014 [facility] Lab Report [id number] Zenithe 05/09 05/09 Ezra 170 MD Tamir /2014 [facility] Office [id number] Zenithe 05/09 05/09 [place] Visit 890 MD Tamir /2014 [facility] Procedures Procedure Code Date Perfomer Comments Source
--- OUTSIDE RECORDS SUMMARY | 2018-10-16 17:46 | XMS REPORT | Continuity of Care Document ---
:1975 Author Organization [facility] Care Team Providers Name Role Phone MD Garnett Zenithe Unavailable Unavailable Insurance Providers Payer name Policy type / Policy ID Covered constitution party ID Policy Gutierrez Coverage type MEDIC[place] B-[place]: NOVITAS Pictorama MEDICARE B-[place]: ClothiaITAS Pictorama Encounters Encounter Performer Location Date Office Visit Higinio Garnett MD [facility] March 24, 2014 [place] Allergies, Adverse Reactions, Alerts Type Substance Reaction [...]
--- OUTSIDE RECORDS SUMMARY | 2018-10-16 17:46 | XMS REPORT | Continuity of Care Document ---
:1975 Author Organization [facility] Care Team Providers Name Role Phone MD Garnett Zenithe Unavailable Unavailable Insurance Providers Payer name Policy type / Policy ID Covered alliance party ID Policy Gutierrez Coverage type MEDICARE B-[place]: NegotiantITAS [employer] MEDICARE B-[place]: [employer] Encounters Encounter Performer Location Date Lab Report Higinio Garnett MD [facility] - Apr 27, 2014 [place] Allergies, Adverse Reactions, Alerts Type Substance Reaction [...] daily for 4 days VITAMIN D (ERGOCALCIFEROL) 87785 Take 1 capsule by mouth every April [...] 2013March 26, platelet count PLATELETS 268 K/CMM 278-828 9189 /mm3 March 26, erythrocyte ESR 39 mm/hr [...] 2013March 26, sodium, serum SODIUM 139 MEQ/L 676-481 3150 mmol/L March 26, potassium, serum POTASSIUM 4.1 [...]
--- OUTSIDE RECORDS SUMMARY | 2018-10-16 17:46 | XMS REPORT | Continuity of Care Document ---
:1975 Author Organization [facility] Care Team Providers Name Role Phone MD Garnett Zenithe Unavailable Unavailable Insurance Providers Payer name Policy type / Policy ID Covered libertarian ID Policy Gutierrez Coverage type MEDICARE B-[place]: [id number] [employer] MEDICARE B-[place]: MayvennS [employer] Encounters Encounter Performer Location Date Lab Report Higinio Garnett MD [facility] - March 26, 2014 [place] Allergies, Adverse Reactions, Alerts Type Substance Reaction [...] 2013March 26, platelet count PLATELETS 268 K/CMM 385-765 6661 /mm3 March 26, erythrocyte ESR 39 mm/hr [...] March 26, sodium, serum SODIUM 139 MEQ/L 165-803 0550 mmol/L March 26, potassium, serum POTASSIUM 4.1 [...]
--- OUTSIDE RECORDS SUMMARY | 2018-10-16 17:46 | XMS REPORT | Continuity of Care Document ---
:1975 Author Organization [facility] Care Team Providers Name Role Phone MD Garnett Zenithe Unavailable Unavailable Insurance Providers Payer name Policy type / Policy ID Covered libertarian ID Policy Gutierrez Coverage type MEDICARE B-[place]: PerformLineITAS Kybernesis MEDICARE B-[place]: XylogenicsS Kybernesis Encounters Encounter Performer Location Date Lab Report Higinio Garnett MD [facility] - March 26, 2014 [place] Allergies, Adverse Reactions, Alerts Type Substance Reaction [...] daily for 4 days VITAMIN D (ERGOCALCIFEROL) 49171 Take 1 capsule by mouth every April [...] 2013March 26, platelet count PLATELETS 268 K/CMM 087-110 3090 /mm3 March 26, erythrocyte ESR 39 mm/hr [...] March 26, sodium, serum SODIUM 139 MEQ/L 062-164 7094 mmol/L March 26, potassium, serum POTASSIUM 4.1 [...]
--- OUTSIDE RECORDS SUMMARY | 2018-10-16 17:47 | XMS REPORT | Continuity of Care Document ---
:1975 Author Organization [facility] Care Team Providers Name Role Phone MD Garnett Zenithe Unavailable Unavailable Insurance Providers Payer name Policy type / Policy ID Covered constitution party ID Policy Gutierrez Coverage type MEDIC[place]: [employer] MEDICARE B-[place]: [employer] Encounters Encounter Performer Location Date Office Visit Higinio Garnett MD [facility] Nov 13, 2014 [place] Allergies, Adverse Reactions, Alerts Type Substance Reaction [...] as needed for nausea/vomiting VITAMIN D (ERGOCALCIFEROL) 05970 Take 1 capsule by mouth April 04, [...] 2013Jul 17, platelet count PLATELETS 199 K/CMM 255-844 3966 /mm3 March 26, hemoglobin, blood HGB 9.8 g/dL 12.0-16.0 Low 2013March 26, hematocrit, blood HCT 32.7 % 36.0-48.0 Low 2013March 26, platelet count PLATELETS 268 K/CMM 759-049 0448 /mm3 March 26, erythrocyte ESR 39 mm/hr 0-20 High 2014 sedimentation rate Jul 17, hemoglobin, blood HGB 13.6 g/dL 12.0-16.0 2013Jul 17, hematocrit, blood HCT 41.8 % 36.0-48.0 2013Jul 17, platelet count PLATELETS 199 K/CMM 587-843 0733 /mm3 Jul 17, urine color UA COLOR [...] Jul 17, sodium, serum SODIUM 140 MEQ/L 734-359 5298 mmol/L Jul 17, potassium, serum POTASSIUM 3.8 [...] March 26, sodium, serum SODIUM 139 MEQ/L [phone] mmol/L March 26, potassium, serum POTASSIUM 4.1 [...] Jul 17, sodium, serum SODIUM 140 MEQ/L 232-967 2240 mmol/L Jul 17, potassium, serum POTASSIUM 3.8 [...]
--- OUTSIDE RECORDS SUMMARY | 2018-10-16 17:47 | XMS REPORT | Continuity of Care Document ---
:1975 Author Organization [facility] Care Team Providers Name Role Phone MD Garnett Zenithe Unavailable Unavailable Insurance Providers Payer name Policy type / Policy ID Covered green party ID Policy Gutierrez Coverage type [place]: BeibambooITAS [employer] MEDICARE B-[place]: [employer] Encounters Encounter Performer Location Date Office Visit Higinio Garnett MD [facility] Oct 03, 2014 [place] Allergies, Adverse Reactions, Alerts Type Substance Reaction [...] as needed for nausea/vomiting VITAMIN D (ERGOCALCIFEROL) 46887 Take 1 capsule by mouth April 04, [...] 2013Jul 17, platelet count PLATELETS 199 K/CMM 564-429 1977 /mm3 March 26, hemoglobin, blood HGB 9.8 g/dL 12.0-16.0 Low 2013March 26, hematocrit, blood HCT 32.7 % 36.0-48.0 Low 2013March 26, platelet count PLATELETS 268 K/CMM 989-626 5535 /mm3 March 26, erythrocyte ESR 39 mm/hr 0-20 High 2013 sedimentation rate Jul 17, hemoglobin, blood HGB 13.6 g/dL 12.0-16.0 2013Jul 17, hematocrit, blood HCT 41.8 % 36.0-48.0 2013Jul 17, platelet count PLATELETS 199 K/CMM 106-552 7496 /mm3 Jul 17, urine color UA COLOR [...] Jul 17, sodium, serum SODIUM 140 MEQ/L 548-815 6208 mmol/L Jul 17, potassium, serum POTASSIUM 3.8 [...] March 26, sodium, serum SODIUM 139 MEQ/L 794-460 4406 mmol/L March 26, potassium, serum POTASSIUM 4.1 [...] Jul 17, sodium, serum SODIUM 140 MEQ/L 033-742 8336 mmol/L Jul 17, potassium, serum POTASSIUM 3.8 [...]
--- OUTSIDE RECORDS SUMMARY | 2018-10-16 17:47 | XMS REPORT | Continuity of Care Document ---
:1975 Author Organization [facility] Care Team Providers Name Role Phone MD Garnett Zenithe Unavailable Unavailable Insurance Providers Payer name Policy type / Policy ID Covered republican ID Policy Gutierrez Coverage type MEDICARE B-[place]: NOVITAS [employer] MEDICARE B-[place]: JustFamilyS [employer] Encounters Encounter Performer Location Date Lab Report Higinio Garnett MD [facility] Jul 17, 2014 [place] Allergies, Adverse Reactions, Alerts Type Substance Reaction [...] Inactive needed for nausea/vomiting VITAMIN D (ERGOCALCIFEROL) 24310 Take 1 capsule by mouth every April [...] 2013Jul 17, platelet count PLATELETS 199 K/CMM 595-621 5517 /mm3 March 26, hemoglobin, blood HGB 9.8 g/dL 12.0-16.0 Low 2013March 26, hematocrit, blood HCT 32.7 % 36.0-48.0 Low 2013March 26, platelet count PLATELETS 268 K/CMM 458-045 2892 /mm3 March 26, erythrocyte ESR 39 mm/hr 0-20 High 2013 sedimentation rate Jul 17, hemoglobin, blood HGB 13.6 g/dL 12.0-16.0 2013Jul 17, hematocrit, blood HCT 41.8 % 36.0-48.0 2013Jul 17, platelet count PLATELETS 199 K/CMM 665-064 8482 /mm3 Jul 17, urine color UA COLOR [...] Jul 17, sodium, serum SODIUM 140 MEQ/L 906-705 3525 mmol/L Jul 17, potassium, serum POTASSIUM 3.8 [...] March 26, sodium, serum SODIUM 139 MEQ/L 699-293 4594 mmol/L March 26, potassium, serum POTASSIUM 4.1 [...] Jul 17, sodium, serum SODIUM 140 MEQ/L 272-411 7846 mmol/L Jul 17, potassium, serum POTASSIUM 3.8 [...]
--- OUTSIDE RECORDS SUMMARY | 2018-10-16 17:47 | XMS REPORT | Continuity of Care Document ---
:1975 Author Organization [facility] Care Team Providers Name Role Phone MD Garnett Zenithe Unavailable Unavailable Insurance Providers Payer name Policy type / Policy ID Covered democrat ID Policy Gutierrez Coverage type [place]: ShopitizeITAS [employer] MEDICARE [place]: [employer] Encounters Encounter Performer Location Date Lab Report Higinio Garnett MD [facility] May 09, 2015 [place] Allergies, Adverse Reactions, Alerts Type Substance Reaction [...] as needed for nausea/vomiting VITAMIN D (ERGOCALCIFEROL) 21129 Take 1 capsule by mouth April 04, [...] 2013Jul 17, platelet count PLATELETS 199 K/CMM 192-226 1952 /mm3 March 26, hemoglobin, blood HGB 9.8 g/dL 12.0-16.0 Low 2013March 26, hematocrit, blood HCT 32.7 % 36.0-48.0 Low 2013March 26, platelet count PLATELETS 268 K/CMM 413-650 2938 /mm3 March 26, erythrocyte ESR 39 mm/hr 0-20 High 2013 sedimentation rate Jul 17, hemoglobin, blood HGB 13.6 g/dL 12.0-16.0 2013Jul 17, hematocrit, blood HCT 41.8 % 36.0-48.0 2013Jul 17, platelet count PLATELETS 199 K/CMM 681-012 8042 /mm3 Feb 15, hemoglobin, blood HGB 15.5 g/dL 12.0-16.0 2014Feb 15, hematocrit, blood HCT 46.2 % 36.0-48.0 2014Feb 15, platelet count PLATELETS 220 K/CMM 375-486 3940 /mm3 Feb 15, erythrocyte ESR 6 mm/hr 0-20 2014 sedimentation rate May 09, hemoglobin, blood HGB 13.9 g/dL 12.0-16.0 2014May 09, hematocrit, blood HCT 42.6 % 36.0-48.0 2014May 09, platelet count PLATELETS 227 K/CMM 760-188 7692 /mm3 Jul 17, urine color UA COLOR [...] Jul 17, sodium, serum SODIUM 140 MEQ/L 549-294 4556 mmol/L Jul 17, potassium, serum POTASSIUM 3.8 [...] Dec 21, sodium, serum SODIUM 139 mmol/L [phone] Dec 21, potassium, serum POTASSIUM 4.0 mmol/L [...] March 26, sodium, serum SODIUM 139 MEQ/L 573-449 9050 mmol/L March 26, potassium, serum POTASSIUM 4.1 [...] Jul 17, sodium, serum SODIUM 140 MEQ/L 873-967 2335 mmol/L Jul 17, potassium, serum POTASSIUM 3.8 [...] Dec 21, sodium, serum SODIUM 139 mmol/L 767-885 0319 Dec 21, potassium, serum POTASSIUM 4.0 mmol/L [...] 2014Feb 15, sodium, serum SODIUM 135 MEQ/L 492-976 3506 mmol/L Feb 15, potassium, serum POTASSIUM 3.8 [...] May 09, sodium, serum SODIUM 140 MEQ/L 468-023 4465 mmol/L May 09, potassium, serum POTASSIUM 3.7 [...]
--- OUTSIDE RECORDS SUMMARY | 2018-10-16 17:47 | XMS REPORT | Continuity of Care Document ---
:1975 Author Organization [facility] Care Team Providers Name Role Phone MD Garnett Zenithe Unavailable Unavailable Insurance Providers Payer name Policy type / Policy ID Covered alliance party ID Policy Gutierrez Coverage type MED[place]: TalkrayITAS [email or web address] MEDICARE B-[place]: Hash[email or web address] Encounters Encounter Performer Location Date Office Visit Higinio Garnett MD [facility] Oct 26, 2014 [place] Allergies, Adverse Reactions, Alerts Type Substance Reaction [...] as needed for nausea/vomiting VITAMIN D (ERGOCALCIFEROL) 32141 Take 1 capsule by mouth April 04, [...] 2013Jul 17, platelet count PLATELETS 199 K/CMM 991-539 4018 /mm3 March 26, hemoglobin, blood HGB 9.8 g/dL 12.0-16.0 Low 2013March 26, hematocrit, blood HCT 32.7 % 36.0-48.0 Low 2013March 26, platelet count PLATELETS 268 K/CMM 316-144 2844 /mm3 March 26, erythrocyte ESR 39 mm/hr 0-20 High 2013 sedimentation rate Jul 17, hemoglobin, blood HGB 13.6 g/dL 12.0-16.0 2013Jul 17, hematocrit, blood HCT 41.8 % 36.0-48.0 2013Jul 17, platelet count PLATELETS 199 K/CMM 945-601 7615 /mm3 Jul 17, urine color UA COLOR [...] Jul 17, sodium, serum SODIUM 140 MEQ/L 558-140 2237 mmol/L Jul 17, potassium, serum POTASSIUM 3.8 [...] March 26, sodium, serum SODIUM 139 MEQ/L 129-814 8141 mmol/L March 26, potassium, serum POTASSIUM 4.1 [...] Jul 17, sodium, serum SODIUM 140 MEQ/L [phone] mmol/L Jul 17, potassium, serum POTASSIUM 3.8 [...]
--- OUTSIDE RECORDS SUMMARY | 2018-10-16 17:48 | XMS REPORT | Continuity of Care Document ---
:1975 Author Organization [facility] Care Team Providers Name Role Phone MD Garnett Zenithe Unavailable Unavailable Insurance Providers Payer name Policy type / Policy ID Covered libertarian ID Policy Gutierrez Coverage type [place]: [employer] MEDICARE B-[place]: [employer] Encounters Encounter Performer Location Date Lab Report Higinio Garnett MD [facility] - Dec 20, 2014 [place] Allergies, Adverse Reactions, Alerts Type Substance Reaction [...] as needed for nausea/vomiting VITAMIN D (ERGOCALCIFEROL) 71858 Take 1 capsule by mouth April 04, [...] 2013Jul 17, platelet count PLATELETS 199 K/CMM 544-665 4824 /mm3 March 26, hemoglobin, blood HGB 9.8 g/dL 12.0-16.0 Low 2013March 26, hematocrit, blood HCT 32.7 % 36.0-48.0 Low 2013March 26, platelet count PLATELETS 268 K/CMM 051-197 4843 /mm3 March 26, erythrocyte ESR 39 mm/hr 0-20 High 2013 sedimentation rate Jul 17, hemoglobin, blood HGB 13.6 g/dL 12.0-16.0 2013Jul 17, hematocrit, blood HCT 41.8 % 36.0-48.0 2013Jul 17, platelet count PLATELETS 199 K/CMM 622-804 3480 /mm3 Jul 17, urine color UA COLOR [...] Jul 17, sodium, serum SODIUM 140 MEQ/L 606-899 1470 mmol/L Jul 17, potassium, serum POTASSIUM 3.8 [...] Dec 21, sodium, serum SODIUM 139 mmol/L 221-578 1126 Dec 21, potassium, serum POTASSIUM 4.0 mmol/L [...] March 26, sodium, serum SODIUM 139 MEQ/L 300-657 8931 mmol/L March 26, potassium, serum POTASSIUM 4.1 [...] Jul 17, sodium, serum SODIUM 140 MEQ/L 254-469 6770 mmol/L Jul 17, potassium, serum POTASSIUM 3.8 [...] Dec 21, sodium, serum SODIUM 139 mmol/L 400-107 8601 Dec 21, potassium, serum POTASSIUM 4.0 mmol/L [...]
--- OUTSIDE RECORDS SUMMARY | 2018-10-16 17:48 | XMS REPORT | Continuity of Care Document ---
:1975 Author Organization [facility] Care Team Providers Name Role Phone MD Garnett Zenithe Unavailable Unavailable Insurance Providers Payer name Policy type / Policy ID Covered democrat ID Policy Gutierrez Coverage type MEDIC[place]: SutusITAS Vidyo MEDICARE B-[place]: GOODWIN Encounters Encounter Performer Location Date Lab Report Higinio Garnett MD [facility] Feb 15, 2015 [place] Allergies, Adverse Reactions, Alerts Type Substance Reaction [...] as needed for nausea/vomiting VITAMIN D (ERGOCALCIFEROL) 12172 Take 1 capsule by mouth April 04, [...] 2013Jul 17, platelet count PLATELETS 199 K/CMM 443-662 6972 /mm3 March 26, hemoglobin, blood HGB 9.8 g/dL 12.0-16.0 Low 2013March 26, hematocrit, blood HCT 32.7 % 36.0-48.0 Low 2013March 26, platelet count PLATELETS 268 K/CMM 991-798 9763 /mm3 March 26, erythrocyte ESR 39 mm/hr 0-20 High 2013 sedimentation rate Jul 17, hemoglobin, blood HGB 13.6 g/dL 12.0-16.0 2013Jul 17, hematocrit, blood HCT 41.8 % 36.0-48.0 2013Jul 17, platelet count PLATELETS 199 K/CMM 454-702 6113 /mm3 Feb 15, hemoglobin, blood HGB 15.5 g/dL 12.0-16.0 2014Feb 15, hematocrit, blood HCT 46.2 % 36.0-48.0 2014Feb 15, platelet count PLATELETS 220 K/CMM 721-702 1066 /mm3 Feb 15, erythrocyte ESR 6 mm/hr [...] Jul 17, sodium, serum SODIUM 140 MEQ/L 469-909 1229 mmol/L Jul 17, potassium, serum POTASSIUM 3.8 [...] Dec 21, sodium, serum SODIUM 139 mmol/L [phone] Dec 21, potassium, serum POTASSIUM 4.0 mmol/L [...] March 26, sodium, serum SODIUM 139 MEQ/L 708-494 3043 mmol/L March 26, potassium, serum POTASSIUM 4.1 [...] Jul 17, sodium, serum SODIUM 140 MEQ/L 747-194 4046 mmol/L Jul 17, potassium, serum POTASSIUM 3.8 [...] Dec 21, sodium, serum SODIUM 139 mmol/L 848-884 1597 Dec 21, potassium, serum POTASSIUM 4.0 mmol/L [...] 2014Feb 15, sodium, serum SODIUM 135 MEQ/L 514-394 6425 mmol/L Feb 15, potassium, serum POTASSIUM 3.8 [...]
--- OUTSIDE RECORDS SUMMARY | 2018-10-16 17:48 | XMS REPORT | Continuity of Care Document ---
:1975 Author Organization [facility] Care Team Providers Name Role Phone MD Garnett Zenithe Unavailable Unavailable Insurance Providers Payer name Policy type / Policy ID Covered alliance party ID Policy Gutierrez Coverage type MEDICARE [place]: Medical [employer] MEDICARE B-[place]: [employer] Encounters Encounter Performer Location Date Office Visit Higinio Garnett MD [facility] Jan 10, 2015 [place] Allergies, Adverse Reactions, Alerts Type Substance Reaction [...] as needed for nausea/vomiting VITAMIN D (ERGOCALCIFEROL) 62805 Take 1 capsule by mouth April 04, [...] 2013Jul 17, platelet count PLATELETS 199 K/CMM 031-517 6328 /mm3 March 26, hemoglobin, blood HGB 9.8 g/dL 12.0-16.0 Low 2013March 26, hematocrit, blood HCT 32.7 % 36.0-48.0 Low 2013March 26, platelet count PLATELETS 268 K/CMM 812-032 7904 /mm3 March 26, erythrocyte ESR 39 mm/hr 0-20 High 2014 sedimentation rate Jul 17, hemoglobin, blood HGB 13.6 g/dL 12.0-16.0 2013Jul 17, hematocrit, blood HCT 41.8 % 36.0-48.0 2013Jul 17, platelet count PLATELETS 199 K/CMM 234-249 1087 /mm3 Jul 17, urine color UA COLOR [...] Jul 17, sodium, serum SODIUM 140 MEQ/L 237-833 1181 mmol/L Jul 17, potassium, serum POTASSIUM 3.8 [...] Dec 21, sodium, serum SODIUM 139 mmol/L [phone] Dec 21, potassium, serum POTASSIUM 4.0 mmol/L [...] March 26, sodium, serum SODIUM 139 MEQ/L 800-344 4244 mmol/L March 26, potassium, serum POTASSIUM 4.1 [...] Jul 17, sodium, serum SODIUM 140 MEQ/L 490-850 6891 mmol/L Jul 17, potassium, serum POTASSIUM 3.8 [...] Dec 21, sodium, serum SODIUM 139 mmol/L [phone] Dec 21, potassium, serum POTASSIUM 4.0 mmol/L [...]
--- OUTSIDE RECORDS SUMMARY | 2018-10-16 17:48 | XMS REPORT | Continuity of Care Document ---
:1975 Author Organization [facility] Care Team Providers Name Role Phone MD Garnett Zenithe Unavailable Unavailable Insurance Providers Payer name Policy type / Policy ID Covered democrat ID Policy Gutierrez Coverage type MEDICARE B-[place]: PictoriousS [employer] MEDICARE B-[place]: Service [employer]eking Encounters Encounter Performer Location Date Office Visit Higinio Garnett MD [facility] Dec 10, 2014 [place] Allergies, Adverse Reactions, Alerts Type Substance Reaction [...] as needed for nausea/vomiting VITAMIN D (ERGOCALCIFEROL) 29112 Take 1 capsule by mouth April 04, [...] 2013Jul 17, platelet count PLATELETS 199 K/CMM 038-158 0135 /mm3 March 26, hemoglobin, blood HGB 9.8 g/dL 12.0-16.0 Low 2013March 26, hematocrit, blood HCT 32.7 % 36.0-48.0 Low 2013March 26, platelet count PLATELETS 268 K/CMM 832-242 2568 /mm3 March 26, erythrocyte ESR 39 mm/hr 0-20 High 2013 sedimentation rate Jul 17, hemoglobin, blood HGB 13.6 g/dL 12.0-16.0 2013Jul 17, hematocrit, blood HCT 41.8 % 36.0-48.0 2013Jul 17, platelet count PLATELETS 199 K/CMM 086-065 7846 /mm3 Jul 17, urine color UA COLOR [...] Jul 17, sodium, serum SODIUM 140 MEQ/L 726-196 8869 mmol/L Jul 17, potassium, serum POTASSIUM 3.8 [...] March 26, sodium, serum SODIUM 139 MEQ/L 516-074 1719 mmol/L March 26, potassium, serum POTASSIUM 4.1 [...] Jul 17, sodium, serum SODIUM 140 MEQ/L 226-711 7237 mmol/L Jul 17, potassium, serum POTASSIUM 3.8 [...]
--- OUTSIDE RECORDS SUMMARY | 2018-10-16 17:49 | XMS REPORT | Continuity of Care Document ---
:1975 Author Organization [facility] Care Team Providers Name Role Phone MD Garnett Zenithe Unavailable Unavailable Insurance Providers Payer name Policy type / Policy ID Covered green party ID Policy Gutierrez Coverage type MEDICARE B-[place]: GongpingjiaS [employer] MEDICARE B-[place]: [employer]r Encounters Encounter Performer Location Date Lab Report Higinio Garnett MD [facility] Apr 11, 2015 Allergies, Adverse Reactions, Alerts [...] as needed for nausea/vomiting VITAMIN D (ERGOCALCIFEROL) 80101 Take 1 capsule by mouth April 04, [...] 2013Jul 17, platelet count PLATELETS 199 K/CMM 356-516 6534 /mm3 March 26, hemoglobin, blood HGB 9.8 g/dL 12.0-16.0 Low 2013March 26, hematocrit, blood HCT 32.7 % 36.0-48.0 Low 2013March 26, platelet count PLATELETS 268 K/CMM 419-525 9127 /mm3 March 26, erythrocyte ESR 39 mm/hr 0-20 High 2014 sedimentation rate Jul 17, hemoglobin, blood HGB 13.6 g/dL 12.0-16.0 2013Jul 17, hematocrit, blood HCT 41.8 % 36.0-48.0 2013Jul 17, platelet count PLATELETS 199 K/CMM 426-057 0910 /mm3 Feb 15, hemoglobin, blood HGB 15.5 g/dL 12.0-16.0 2014Feb 15, hematocrit, blood HCT 46.2 % 36.0-48.0 2014Feb 15, platelet count PLATELETS 220 K/CMM 421-751 6011 /mm3 Feb 15, erythrocyte ESR 6 mm/hr [...] Jul 17, sodium, serum SODIUM 140 MEQ/L 048-594 1828 mmol/L Jul 17, potassium, serum POTASSIUM 3.8 [...] Dec 21, sodium, serum SODIUM 139 mmol/L [phone] Dec 21, potassium, serum POTASSIUM 4.0 mmol/L [...] March 26, sodium, serum SODIUM 139 MEQ/L 007-749 1023 mmol/L March 26, potassium, serum POTASSIUM 4.1 [...] Jul 17, sodium, serum SODIUM 140 MEQ/L 524-169 4194 mmol/L Jul 17, potassium, serum POTASSIUM 3.8 [...] Dec 21, sodium, serum SODIUM 139 mmol/L [phone] Dec 21, potassium, serum POTASSIUM 4.0 mmol/L [...] 2014Feb 15, sodium, serum SODIUM 135 MEQ/L 664-656 2487 mmol/L Feb 15, potassium, serum POTASSIUM 3.8 [...]
--- OUTSIDE RECORDS SUMMARY | 2018-10-16 17:49 | XMS REPORT | Continuity of Care Document ---
:1975 Author Organization [facility] Care Team Providers Name Role Phone MD Garnett Zenithe Unavailable Unavailable Insurance Providers Payer name Policy type / Policy ID Covered constitution party ID Policy Gutierrez Coverage type [place]: [employer] MED[place]: [employer] Encounters Encounter Performer Location Date Office Visit Higinio Garnett MD [facility] Apr 12, 2015 [place] Allergies, Adverse Reactions, Alerts Type Substance Reaction [...] as needed for nausea/vomiting VITAMIN D (ERGOCALCIFEROL) 56887 Take 1 capsule by mouth April 04, [...] 2013Jul 17, platelet count PLATELETS 199 K/CMM 196-132 4666 /mm3 March 26, hemoglobin, blood HGB 9.8 g/dL 12.0-16.0 Low 2013March 26, hematocrit, blood HCT 32.7 % 36.0-48.0 Low 2013March 26, platelet count PLATELETS 268 K/CMM 044-011 6679 /mm3 March 26, erythrocyte ESR 39 mm/hr 0-20 High 2014 sedimentation rate Jul 17, hemoglobin, blood HGB 13.6 g/dL 12.0-16.0 2013Jul 17, hematocrit, blood HCT 41.8 % 36.0-48.0 2013Jul 17, platelet count PLATELETS 199 K/CMM 412-650 8349 /mm3 Feb 15, hemoglobin, blood HGB 15.5 g/dL 12.0-16.0 2014Feb 15, hematocrit, blood HCT 46.2 % 36.0-48.0 2014Feb 15, platelet count PLATELETS 220 K/CMM 879-845 2609 /mm3 Feb 15, erythrocyte ESR 6 mm/hr [...] Jul 17, sodium, serum SODIUM 140 MEQ/L [phone] mmol/L Jul 17, potassium, serum POTASSIUM 3.8 [...] Dec 21, sodium, serum SODIUM 139 mmol/L [phone] Dec 21, potassium, serum POTASSIUM 4.0 mmol/L [...] 2013March 26, sodium, serum SODIUM 139 MEQ/L 076-389 1252 mmol/L March 26, potassium, serum POTASSIUM 4.1 [...] Jul 17, sodium, serum SODIUM 140 MEQ/L 785-288 0435 mmol/L Jul 17, potassium, serum POTASSIUM 3.8 [...] Dec 21, sodium, serum SODIUM 139 mmol/L 473-530 7074 Dec 21, potassium, serum POTASSIUM 4.0 mmol/L [...] 2014Feb 15, sodium, serum SODIUM 135 MEQ/L 413-111 4866 mmol/L Feb 15, potassium, serum POTASSIUM 3.8 [...]
--- OUTSIDE RECORDS SUMMARY | 2018-10-16 17:49 | XMS REPORT | Continuity of Care Document ---
:1975 Author Organization [facility] Care Team Providers Name Role Phone MD Garnett Zenithe Unavailable Unavailable Insurance Providers Payer name Policy type / Policy ID Covered republican ID Policy Gutierrez Coverage type [place]: [employer] MED[place] [employer] Encounters Encounter Performer Location Date Office Visit Higinio Garnett MD [facility] March 22, 2015 [place] Allergies, Adverse Reactions, Alerts Type Substance Reaction [...] as needed for nausea/vomiting VITAMIN D (ERGOCALCIFEROL) 18860 Take 1 capsule by mouth April 04, [...] 2013Jul 17, platelet count PLATELETS 199 K/CMM 898-759 1935 /mm3 March 26, hemoglobin, blood HGB 9.8 g/dL 12.0-16.0 Low 2013March 26, hematocrit, blood HCT 32.7 % 36.0-48.0 Low 2013March 26, platelet count PLATELETS 268 K/CMM 535-970 5833 /mm3 March 26, erythrocyte ESR 39 mm/hr 0-20 High 2013 sedimentation rate Jul 17, hemoglobin, blood HGB 13.6 g/dL 12.0-16.0 2013Jul 17, hematocrit, blood HCT 41.8 % 36.0-48.0 2013Jul 17, platelet count PLATELETS 199 K/CMM 069-361 6451 /mm3 Feb 15, hemoglobin, blood HGB 15.5 g/dL 12.0-16.0 2014Feb 15, hematocrit, blood HCT 46.2 % 36.0-48.0 2014Feb 15, platelet count PLATELETS 220 K/CMM 885-525 1219 /mm3 Feb 15, erythrocyte ESR 6 mm/hr [...] Jul 17, sodium, serum SODIUM 140 MEQ/L 046-686 7193 mmol/L Jul 17, potassium, serum POTASSIUM 3.8 [...] Dec 21, sodium, serum SODIUM 139 mmol/L 177-882 4938 Dec 21, potassium, serum POTASSIUM 4.0 mmol/L [...] March 26, sodium, serum SODIUM 139 MEQ/L 022-218 6039 mmol/L March 26, potassium, serum POTASSIUM 4.1 [...] Jul 17, sodium, serum SODIUM 140 MEQ/L 110-017 8098 mmol/L Jul 17, potassium, serum POTASSIUM 3.8 [...] Dec 21, sodium, serum SODIUM 139 mmol/L [phone] Dec 21, potassium, serum POTASSIUM 4.0 mmol/L [...] 2014Feb 15, sodium, serum SODIUM 135 MEQ/L 059-754 1094 mmol/L Feb 15, potassium, serum POTASSIUM 3.8 [...]
--- OUTSIDE RECORDS SUMMARY | 2018-10-16 17:50 | XMS REPORT | Continuity of Care Document ---
:1975 Author Organization [facility] Care Team Providers Name Role Phone MD Garnett Zenithe Unavailable Unavailable Insurance Providers Payer name Policy type / Policy ID Covered democrat ID Policy Gutierrez Coverage type [place]: [employer] MEDICARE [place]: [employer] Encounters Encounter Performer Location Date Office Visit Higinio Garnett MD [facility] May 09, 2015 [place] Allergies, Adverse Reactions, Alerts Type Substance Reaction [...] as needed for nausea/vomiting VITAMIN D (ERGOCALCIFEROL) 73690 Take 1 capsule by mouth April 04, [...] 2013Jul 17, platelet count PLATELETS 199 K/CMM 191-799 6194 /mm3 March 26, hemoglobin, blood HGB 9.8 g/dL 12.0-16.0 Low 2013March 26, hematocrit, blood HCT 32.7 % 36.0-48.0 Low 2013March 26, platelet count PLATELETS 268 K/CMM 895-775 0674 /mm3 March 26, erythrocyte ESR 39 mm/hr 0-20 High 2013 sedimentation rate Jul 17, hemoglobin, blood HGB 13.6 g/dL 12.0-16.0 2013Jul 17, hematocrit, blood HCT 41.8 % 36.0-48.0 2013Jul 17, platelet count PLATELETS 199 K/CMM 577-565 1442 /mm3 Feb 15, hemoglobin, blood HGB 15.5 g/dL 12.0-16.0 2014Feb 15, hematocrit, blood HCT 46.2 % 36.0-48.0 2014Feb 15, platelet count PLATELETS 220 K/CMM 010-016 8779 /mm3 Feb 15, erythrocyte ESR 6 mm/hr 0-20 2014 sedimentation rate May 09, hemoglobin, blood HGB 13.9 g/dL 12.0-16.0 2014May 09, hematocrit, blood HCT 42.6 % 36.0-48.0 2014May 09, platelet count PLATELETS 227 K/CMM 756-035 8837 /mm3 Jul 17, urine color UA COLOR [...] Jul 17, sodium, serum SODIUM 140 MEQ/L [phone] mmol/L Jul 17, potassium, serum POTASSIUM 3.8 [...] Dec 21, sodium, serum SODIUM 139 mmol/L [phone] Dec 21, potassium, serum POTASSIUM 4.0 mmol/L [...] March 26, sodium, serum SODIUM 139 MEQ/L 076-762 6941 mmol/L March 26, potassium, serum POTASSIUM 4.1 [...] Jul 17, sodium, serum SODIUM 140 MEQ/L 519-706 4869 mmol/L Jul 17, potassium, serum POTASSIUM 3.8 [...] Dec 21, sodium, serum SODIUM 139 mmol/L [phone] Dec 21, potassium, serum POTASSIUM 4.0 mmol/L [...] 2014Feb 15, sodium, serum SODIUM 135 MEQ/L 585-245 6337 mmol/L Feb 15, potassium, serum POTASSIUM 3.8 [...] May 09, sodium, serum SODIUM 140 MEQ/L 756-081 2291 mmol/L May 09, potassium, serum POTASSIUM 3.7 [...]
--- NOTE | 2018-10-16 19:01 | RAD REPORT ---
EXAM DESCRIPTION: RAD - Chest Single View - 10/16/2018 6:55 pm CLINICAL HISTORY: DYSPNEA Chest pain. COMPARISON: Chest Single View dated 05/04/2018; Chest Single View dated 10/02/2016; CHEST PA AND LAT 2 VIEW dated 12/11/2014; CHEST SINGLE VIEW dated 02/07/2013 FINDINGS: Portable technique limits examination quality. The lungs are grossly clear. The heart is normal in size. No displaced fractures. IMPRESSION: No acute intrathoracic process suspected.
[2018-10-16 19:04] LABS: Protime INR 1.23
--- NOTE | 2018-10-16 19:04 | RAD REPORT ---
EXAM DESCRIPTION: CT - Head Brain Wo Cont - 10/16/2018 6:57 pm CLINICAL HISTORY: SYNCOPE COMPARISON: HEAD BRAIN W O CONTRAST dated 10/10/2011; HEAD BRAIN W O CONTRAST dated 09/09/2011 TECHNIQUE: All CT scans are performed using dose optimization technique as appropriate and may inclu de automated exposure control or mA/KV adjustment according to patient size. FINDINGS: No intracranial hemorrhage, hydrocephalus or extra-axial fluid collection.No areas of brai n edema or evidence of midline shift. Small amount of mucoperiosteal thickening in the sphenoid sinus and frontal sinus noted. The paranasa l sinuses and mastoids are otherwise clear. The calvarium is intact. IMPRESSION: No acute intracranial abnormality.
--- NOTE | 2018-10-16 19:07 | RAD REPORT ---
EXAM DESCRIPTION: RAD - Foot Right 3 View - 10/16/2018 6:56 pm CLINICAL HISTORY: PAIN COMPARISON: No comparisons FINDINGS: Oblique fracture of the right fifth metatarsal shaft is seen with mild displacement. Promi nent plantar calcaneal spur.
[2018-10-16 19:16] LABS: Absolute Lymphocytes (CBC) 0.7 K/uL (0.7-4.9); Absolute Monocytes 0.3 K/uL (0.1-1.3); Absolute Neutrophil 9.3 K/uL (1.8-8.0); Basophils % 0.2 % (0-1.3); Eosinophils % 0.1 % (0-4.4); Hematocrit 24.3 % (36.0-45.0); Lymphocytes % 6.4 % (15.3-44.8); MCH 30.7 pg (27.0-35.0); MCV 90.5 fL (80-100); MPV 8.7 fL (7.6-11.3); Monocytes % 2.5 % (3.3-12.3); RBC Red Blood Cell Count 2.69 M/uL (3.86-4.86)
[2018-10-16] MEDS ORDERED: NA CHLORIDE 0.9% 1,000 ML ONE (19:17)
[2018-10-16 19:21] LABS: ALT/SGPT 66 U/L (12-78); AST/SGOT 51 U/L (15-37); Albumin 2.9 g/dL (3.4-5.0); Alkaline Phosphatase 114 U/L (45-117); BUN Blood Urea Nitrogen 23 mg/dL (7-18); Bicarbonate 22 mmol/L (21-32); Bilirubin Direct < 0.1 mg/dL (0-0.2); Bilirubin Total 0.3 mg/dL (0.2-1.0); Glucose Level 106 mg/dL (74-106); Lipase 69 U/L (73-393); Magnesium 2.1 mg/dL (1.8-2.4); NT PRO-BNP 12 pg/mL (<125); Potassium 4.6 mmol/L (3.5-5.1); Protein, Total 6.4 g/dL (6.4-8.2); Sodium Level 139 mmol/L (136-145); Troponin (Emerg Dept Use Only) < 0.02 ng/mL (0.0-0.045)
[2018-10-16] MEDS ORDERED: PROMETHAZINE 25 MG/ML VIAL ONE (19:43)
[2018-10-16] MEDS ORDERED: FENTANYL CITR 100 MCG/2 ML ONE (19:45)
--- NOTE | 2018-10-16 20:37 | RAD REPORT ---
EXAM DESCRIPTION: CT - Abdomen Pelvis Wo Contrast - 10/16/2018 8:24 pm CLINICAL HISTORY: Abdominal pain. iv only;Abd pain COMPARISON: Abdomen Pelvis W Contrast dated 09/22/2016 TECHNIQUE: CT imaging of the abdomen and pelvis was performed without contrast. Solid organ, bowel a nd vascular assessment is limited due to lack of IV and oral contrast. All CT scans are performed using dose optimization technique as appropriate and may include automated exposure control or mA/KV adjustment according to patient size. FINDINGS: The lower lung jha are clear.Small hiatal hernia is present with postsurgical changes a bout the stomach. The liver, spleen, pancreas, adrenal glands and kidneys are within normal limits for a limited non-co ntrast examination. No bowel obstruction, free air, free fluid or abscess. The appendix is normal. The osseous structures are within normal limits. IMPRESSION: No acute intra-abdominal or pelvic findings. Postsurgical changes about the stomach. A limited non-contrast examination was performed as detailed.
[2018-10-16 21:22] LABS: Anisocytosis 2+; Blood Morphology Comment NOT SEEN (NOT SEEN); Platelet Estimate ADEQ; Polychromasia 2+
[2018-10-16] MEDS ORDERED: ACETAMINOPHEN 500 MG TAB PO ONE (21:37)
[2018-10-16] MEDS ORDERED: ONDANSETRON 4 MG/2 ML VIAL IV PRN (21:37)
[2018-10-16] MEDS ORDERED: MORPHINE 2 MG/ML SYR IV PRN (21:37)
--- NOTE | 2018-10-16 21:52 | ER ---
Nurse's Notes [facility] Name: Liza Dexter Age: 42 yrs Sex: Female : 1975 Arrival Date: 10/16/2018 Time: 17:47 Bed 6 Private MD: Diagnosis: Anemia;Gastrointestinal hemorrhage, unspecified;Syncope and collapse Presentation: 10/16 17:47 Presenting complaint: Patient states: general weakness and dizziness that began 1 week ss ago, much worse today. Denies fever. Reports black stool with maroon streaking that began today. Pt also c/o R foot pain after syncopal episode earlier today. Transition of care: patient was not received from another setting of care. Onset of symptoms is unknown. Risk Assessment: Do you want to hurt yourself or someone else? Patient reports no desire to harm self or others. Initial Sepsis Screen:. Care prior to arrival: Medication(s) given: Benadryl 25 mg given IV IV initiated. 22 GA, in the right hand. 17:47 Method Of Arrival: EMS: [facility] ss 17:47 Acuity: JUAN 2 ss 18:01 Initial Sepsis Screen: Does the patient meet any 2 criteria? No. Patient's initial ca1 sepsis screen is negative. 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 - Social history:: Smoking status: Patient/guardian denies using tobacco. - Ebola Screening: : Patient denies exposure to infectious person Patient denies travel to an Ebola-affected area in the 21 days before illness onset. Screenin:00 Abuse screen: Denies threats or abuse. Nutritional screening: No deficits noted. ca1 Tuberculosis screening: No symptoms or risk factors identified. Fall Risk Assessment: 17:50 General: Appears in no apparent distress. uncomfortable, Behavior is calm, cooperative, ca1 appropriate for age, Reports feeling ill for 1 week. . 17:50 Pain:. ca1 17:50 Pain: Complains of pain in right and left ribcage radiating to the back. Right and left ca1 lower abdomen. Pain currently is 9 out of 10 on a pain scale. Quality of pain is described as sharp, Pain began 1 day ago. Is continuous. 17:50 Neuro: Level of Consciousness is awake, alert, obeys commands, Oriented to person, ca1 place, time, situation. Cardiovascular: Heart tones S1 S2 present Rhythm is regular. Respiratory: Airway is patent Trachea midline Respiratory effort is even, unlabored, Respiratory pattern is regular, symmetrical, Breath sounds are clear bilaterally. GI: Reports nausea, vomiting, since this morning. black stools 3x since this morning. : No signs and/or symptoms were reported regarding the genitourinary system. Derm: Skin is pink, warm \T\ dry. 19:10 General: Appears in no apparent distress. uncomfortable, Behavior is calm, cooperative, rr5 appropriate for age, Reports feeling ill for 1 week. Pain: Complains of pain in right and left quadrant pain, right foot Pain does not radiate. Pain currently is 8 out of 10 on a pain scale. Quality of pain is described as aching, sharp, Pain began 1 day ago. Is continuous, Alleviated by rest, repositioning. 19:10 Neuro: Level of Consciousness is awake, alert, obeys commands, Oriented to person, rr5 place, time, situation. Cardiovascular: Heart tones S1 S2 present Capillary refill < 3 seconds Patient's skin is warm and dry. Respiratory: Airway is patent Respiratory effort is even, unlabored, Respiratory pattern is regular, symmetrical. GI: Abdomen is round Reports nausea. : No signs and/or symptoms were reported regarding the genitourinary system. EENT: No signs and/or symptoms were reported regarding the EENT system. Derm: Skin is pale. Musculoskeletal: Reports pain in right foot. 20:30 Reassessment: Patient appears in no apparent distress at this time. came back from CT rr5 scan awaiting for result. Patient states symptoms have not improved. comfort measure rendered.. 21:05 Reassessment: ED provider coordinating with other facility for transfer. rr5 22:00 Reassessment: Patient appears in no apparent distress at this time. patient is for rr5 admission. explained to patient and family member. patient stated she is type O positive.confirmed to laboratory staff alicja patient is type O negative as same with her previous visit last April 2017. 23:00 Reassessment: Patient appears in no apparent distress at this time. Patient and/or rr5 family updated on plan of care and expected duration. Pain level reassessed. Patient is alert, oriented x 3, equal unlabored respirations, skin warm/dry/pink. for EJ insertion by Refugio STAPLETON. 23:55 Reassessment: Patient appears in no apparent distress at this time. first unit of PRBC rr5 started. pre BT medication given. Refugio STAPLETON informed for the tylenol order patient refused. Vital Signs: 17:52 BP 96 / 48; Pulse 108; Resp 21; Temp 98.5(O); Pulse Ox 100% on R/A; Weight 90.26 kg; ss Height 5 ft. 5 in. (165.10 cm); Pain 8/10; 17:52 BP 96 / 65; Pulse 97; Temp 98.5(O); ss 19:10 BP 128 / 72; Pulse 91; Resp 18; Temp 98.8; Pulse Ox 100% ; Pain 8/10; rr5 20:30 BP 129 / 71; Pulse 96; Resp 17; Pulse Ox 100% on R/A; rr5 21:00 BP 112 / 71; Pulse 90; Resp 18; Pulse Ox 98% ; rr5 22:00 BP 104 / 75; Pulse 85; Resp 17; Pulse Ox 100% ; rr5 23:20 BP 110 / 65; Pulse 90; Resp 18; Temp 98.5; Pulse Ox 100% on R/A; rr5 12/10 00:06 BP 111 / 72; Pulse 96; Resp 18; Pulse Ox 95% on R/A; aa1 10/16 17:52 Body Mass Index 33.11 (90.26 kg, 165.10 cm) ss 12 23:20 baseline vital signs prior blood transfusion. kindly refer to succeeding vital signs BT rr5 form ED Course: 17:47 Patient arrived in ED. ss 17:51 Triage completed. 17:52 [facility] 17:52 Benjamín Mcfarland MD is Attending Physician. jr8 17:52 Arm band placed on right wrist. ss 17:54 Taya Capone, RN is Primary Nurse. ca1 18:01 Placed in gown. Bed in low position. Call light in reach. Side rails up X2. ca1 18:35 Inserted Missed attempt(s): 22 gauge in right forearm. ca1 18:40 Inserted saline lock: 22 gauge in left hand, using aseptic technique. Blood collected. ca1 18:40 Initial lab(s) drawn, by me, sent to lab. ca1 18:55 X-ray completed. Portable x-ray completed in exam room. Patient tolerated procedure la2 well. 18:55 CT completed. Patient moved to CT via stretcher. Patient moved back from CT. bq 18:56 XRAY Chest (1 view) In Process Unspecified. EDMS 18:56 XRAY Foot RIGHT 3 View In Process Unspecified. EDMS 18:57 CT Head Brain wo Cont In Process Unspecified. EDMS 19:20 IV discontinued, intact, bleeding controlled, Pressure dressing applied, IV cannula at rr5 right hand removed. 19:53 Orthoglass splint: Posterior short lleg splint applied on right leg. 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 positive guaiac test done by refugio STAPLETON. rr5 20:[address] via stretcher. rr5 20:24 Abdomen In Process Unspecified. EDMS 21:51 Addison Almanzar MD is Hospitalizing Provider. jr8 22:05 Notified Nurse Practitioner and/or Physician [employer] of a critical lab result(s), HGB bb of 7.6 Refugio STAPLETON notified. 23:15 Accessed EJ insertion by Refugio STAPLETON using 20G Nexia IV catheter ,sterile technique, Clean rr5 \T\ dry. Dressing intact. Good blood return. Flushes easily. Administered Medications: 19:10 Drug: NS 0.9% 1000 ml Route: IV; Rate: 1000 ml; Site: left hand; rr5 20:10 Follow up: IV Status: Completed infusion aa1 20:30 Follow up: Response: No adverse reaction; IV Status: Completed infusion; IV Intake: rr5 1000ml 19:40 Drug: Phenergan 12.5 mg Route: IVP; Site: left hand; rr5 23:30 Follow up: Response: No adverse reaction rr5 19:42 Drug: fentaNYL (PF) 50 mcg Route: IVP; Site: left hand; rr5 23:30 Follow up: Response: No adverse reaction rr5 23:30 Drug: Solu-CORTEF 50 mg Route: IVP; Site: left hand; rr5 10/17 00:20 Follow up: Response: No adverse reaction aa1 10/16 23:35 Drug: Benadryl 12.5 mg Route: IVP; Site: left hand; rr5 10/17 00:20 Follow up: Response: No adverse reaction aa1 10/16 23:45 Drug: Phenergan 12.5 mg Route: IVP; Site: left jugular; rr5 10/17 00:20 Follow up: Response: No adverse reaction; Nausea is decreased aa1 10/16 23:47 Drug: HYDROmorphone 0.5 mg Route: IVP; Site: left jugular; rr5 10/17 00:20 Follow up: Response: No adverse reaction; Pain is decreased aa1 Intake: 10/16 20:30 IV: 1000ml; Total: 1000ml. rr5 Outcome: 21:51 Decision to Hospitalize by Provider. jr8 23:00 Admitted to ICU accompanied by nurse, via stretcher, on monitor, with chart, Report rr5 called to chanel 23:00 Condition: stable 23:00 Instructed on the need for admit. 12 00:30 Patient left the ED. aa1 Signatures: Dispatcher [employer] EDMS Callie Franklin RN RN aa1 Maryana Dela Cruz Brenda, RN RN bb Smirch, Shelby, RN RN Refugio Jay PA PA jr8 Edson Gaspar ds4 Kendra Medina2 Melo Michel RN RN rr5 Taya Capone RN RN ca1 Corrections: (The following items were deleted from the chart) 10/16 17:54 17:47 Care prior to arrival: IV [facility]. [facility] 19:01 18:00 General: Appears in no apparent distress. uncomfortable, Behavior is calm, ca1 cooperative, appropriate for age, Reports feeling ill for ca1 19:17 19:16 Missed attempt(s): 22 gauge in right forearm. ca1 ca1
--- NOTE | 2018-10-16 21:52 | EDPHYS ---
Physician Documentation [facility] Name: Liza Dexter Age: 42 yrs Sex: Female : 1975 Arrival Date: 10/16/2018 Time: 17:47 Bed 6 Private MD: ED Physician Benjamín Mcfarland HPI: 10/16 19:22 This 42 yrs old Female presents to ER via EMS with complaints of GI Bleeding, jr8 Dizziness, Syncope. 19:22 The patient presents to the emergency department with rectal bleeding. Onset: The jr8 symptoms/episode began/occurred acutely, today. Abdominal pain: described as constant, dull, located in the right lower quadrant and left lower quadrant. Modifying factors: The symptoms are alleviated by nothing, the symptoms are aggravated by nothing. Associated signs and symptoms: Pertinent positives: syncope. Severity of symptoms: At their worst the symptoms were moderate in the emergency department the symptoms are unchanged. The patient has not experienced similar symptoms in the past. The patient has not recently seen a physician. Patient stated that after talking to someone at the front door. Had closed the door and then next thing she remembered was her waking up face down of the floor. Stated that she had maroon and black tarry bowel movement today. Has been having lower abdominal pain for the past few weeks. Complains of right foot pain post fall as well . HYBRID [employer] MECH[employer]IC: 10/17 00:19 LMP 09/22/2018 rr5 Historical: - Allergies: 10/16 17:52 ambien; ss 17:52 CEPHALOSPORINS; ss 17:52 Codeine; ss 17:52 Demerol; ss 17:52 Morphine; ss 17:52 Zofran; ss 17:52 Nexium; ss 17:52 Sulfa (Sulfonamide Antibiotics); ss - PMHx: 17:52 Anemia; chron's; Raynaud's syndrome; Colitis; Scleroderma; Seizures; ss - PSHx: 17:52 Stomach Surgery; Esophagus Surgery; Hernia repair; ss - Immunization history:: Adult Immunizations up to date. - Social history:: Smoking status: Patient/guardian denies using tobacco. - Ebola Screening: : Patient denies exposure to infectious person Patient denies travel to an Ebola-affected area in the 21 days before illness onset. ROS: 19:22 Eyes: Negative for injury, pain, redness, and discharge, ENT: Negative for injury, jr8 pain, and discharge, Neck: Negative for injury, pain, and swelling, Cardiovascular: Negative for chest pain, palpitations, and edema, Respiratory: Negative for shortness of breath, cough, wheezing, and pleuritic chest pain, Back: Negative for injury and pain, Skin: Negative for injury, rash, and discoloration. 19:22 Abdomen/GI: Positive for abdominal pain, nausea, black/tarry stool, rectal bleeding. 19:22 MS/extremity: Positive for decreased range of motion, ecchymosis, pain, of the right foot. 19:22 Neuro: Positive for syncope. Exam: 19:22 Head/Face: Normocephalic, atraumatic. Eyes: Pupils equal round and reactive to light, jr8 extra-ocular motions intact. Lids and lashes normal. Conjunctiva and sclera are non-icteric and not injected. Cornea within normal limits. Periorbital areas with no swelling, redness, or edema. ENT: Nares patent. No nasal discharge, no septal abnormalities noted. Tympanic membranes are normal and external auditory canals are clear. Oropharynx with no redness, swelling, or masses, exudates, or evidence of obstruction, uvula midline. Mucous membranes moist. Neck: Trachea midline, no thyromegaly or masses palpated, and no cervical lymphadenopathy. Supple, full range of motion without nuchal rigidity, or vertebral point tenderness. No Meningismus. Chest/axilla: Normal chest wall appearance and motion. Nontender with no deformity. No lesions are appreciated. Cardiovascular: Regular rate and rhythm with a normal S1 and S2. No gallops, murmurs, or rubs. Normal PMI, no JVD. No pulse deficits. Respiratory: Lungs have equal breath sounds bilaterally, clear to auscultation and percussion. No rales, rhonchi or wheezes noted. No increased work of breathing, no retractions or nasal flaring. Back: No spinal tenderness. No costovertebral tenderness. Full range of motion. Skin: Warm, dry with normal turgor. Normal color with no rashes, no lesions, and no evidence of cellulitis. Neuro: Awake and alert, GCS 15, oriented to person, place, time, and situation. Cranial nerves II-XII grossly intact. Motor strength 5/5 in all extremities. Sensory grossly intact. Cerebellar exam normal. Normal gait. 19:22 Abdomen/GI: Inspection: obese scar(s), are noted in the , Bowel sounds: active, all quadrants, Palpation: soft, in all quadrants, mild abdominal tenderness, in the right lower quadrant and left lower quadrant, mass, is not appreciated, rebound tenderness, is not appreciated, voluntary guarding, is not appreciated, involuntary guarding, is not appreciated, no appreciated organomegaly, Indicators: McBurney's point is not tender, Rehman's sign is negative, Rovsing's sign is negative, Liver: tenderness, is not appreciated. 19:22 Musculoskeletal/extremity: Extremities: grossly normal except: noted in the right foot: decreased ROM, ecchymosis, pain, tenderness, lateral right foot over the 5th metatarsal region, ROM: full active range of motion, limited passive range of motion, limited active range of motion due to pain, limited passive range of motion due to pain, Circulation is intact in all extremities. Sensation intact. Vital Signs: 17:52 BP 96 / 48; Pulse 108; Resp 21; Temp 98.5(O); Pulse Ox 100% on R/A; Weight 90.26 kg; ss Height 5 ft. 5 in. (165.10 cm); Pain 8/10; 17:52 BP 96 / 65; Pulse 97; Temp 98.5(O); ss 19:10 BP 128 / 72; Pulse 91; Resp 18; Temp 98.8; Pulse Ox 100% ; Pain 8/10; rr5 20:30 BP 129 / 71; Pulse 96; Resp 17; Pulse Ox 100% on R/A; rr5 21:00 BP 112 / 71; Pulse 90; Resp 18; Pulse Ox 98% ; rr5 22:00 BP 104 / 75; Pulse 85; Resp 17; Pulse Ox 100% ; rr5 23:20 BP 110 / 65; Pulse 90; Resp 18; Temp 98.5; Pulse Ox 100% on R/A; rr5 12/ 00:06 BP 111 / 72; Pulse 96; Resp 18; Pulse Ox 95% on R/A; aa1 10/16 17:52 Body Mass Index 33.11 (90.26 kg, 165.10 cm) 10/16 23:20 baseline vital signs prior blood transfusion. kindly refer to succeeding vital signs BT rr5 form Procedures: 23:23 Peripheral line: by aseptic technique a peripheral line was placed in the left external jr8 jugular vein. MDM: 17:52 Patient medically screened. [facility] 21:37 Data reviewed: vital signs, nurses notes, lab test result(s), EKG, radiologic studies, jr8 CT scan, plain films. Data interpreted: Pulse oximetry: on room air is 100 %. Interpretation: normal. Counseling: I had a detailed discussion with the patient and/or guardian regarding: the historical points, exam findings, and any diagnostic results supporting the discharge/admit diagnosis, lab results, radiology results, the need for further work-up and treatment in the hospital. ED course: Ezra luna was consulted and could not except patient because patients GI was not available and they do not have in house GI for tonight. After talking with patient about this. Patient is ok with staying with us here for further stabilization and evaluation . 10/16 18:04 Order name: Basic Metabolic Panel [facility] 10/16 18:04 Order name: CBC with Diff; Complete Time: 21:31 [facility] 10/16 18:04 Order name: LFT's; Complete Time: 19:36 [facility] 10/16 18:04 Order name: Magnesium; Complete Time: 19:36 [facility] 10/16 18:04 Order name: NT PRO-BNP; Complete Time: 19:36 [facility] 10/16 18:04 Order name: PT-INR; Complete Time: 19:16 [facility] 10/16 18:04 Order name: Troponin (emerg Dept Use Only); Complete Time: 19:36 [facility] 10/16 18:04 Order name: Lipase; Complete Time: 19:36 [facility] 10/16 18:04 Order name: TS jr 10/16 18:04 Order name: Basic Metabolic Panel; Complete Time: 19:36 [facility] 10/16 20:23 Order name: Antibody Screen [facility] 10/16 21:22 Order name: Manual Differential; Complete Time: 21:31 [facility] 10/16 21:32 Order name: Hemoglobin; Complete Time: 22:19 8 10/16 21:41 Order name: Protime (+INR) [facility] 10/16 18:04 Order name: XRAY Chest (1 view); Complete Time: 19:16 [facility] 10/16 18:24 Order name: CT Head Brain wo Cont; Complete Time: 19:16 8 10/16 18:24 Order name: XRAY Foot RIGHT 3 View; Complete Time: 19:16 jr8 10/16 20:23 Order name: Abdomen ; Complete Time: 20:39 [facility] 10/16 21:41 Order name: Protime (+INR) [facility] 10/16 21:41 Order name: PTT, Activated Partial Thromb [facility] 10/16 21:41 Order name: PTT, Activated Partial Thromb [facility] 10/16 21:42 Order name: Hematocrit [facility] 10/16 21:42 Order name: Hemoglobin [facility] 10/16 18:04 Order name: EKG; Complete Time: 18:05 jr8 10/16 18:04 Order name: Cardiac monitoring; Complete Time: 19:05 8 10/16 18:04 Order name: EKG - Nurse/Tech; Complete Time: 19:33 jr8 10/16 18:04 Order name: IV Saline Lock; Complete Time: 19:05 8 10/16 18:04 Order name: Labs collected and sent; Complete Time: 19:05 8 10/16 18:04 Order name: O2 Per Protocol; Complete Time: 19:05 jr8 10/16 18:04 Order name: O2 Sat Monitoring; Complete Time: 19:05 8 10/16 19:16 Order name: Short Leg Splint; Complete Time: 19:54 8 10/16 21:42 Order name: CONS Pharmacy Consult [facility] 10/16 21:42 Order name: CONS Physician Consult [facility] 10/16 21:42 Order name: NPO [facility] 10/16 21:42 Order name: EKG Electrocardiogram [facility] 10/16 21:42 Order name: EKG Electrocardiogram ED[facility] 10/16 21:42 Order name: EKG Electrocardiogram EDMS 10/16 21:42 Order name: EKG Electrocardiogram EDMS 10/16 21:42 Order name: EKG Electrocardiogram EDMS 10/16 21:42 Order name: EKG Electrocardiogram EDMS 10/16 21:42 Order name: EKG Electrocardiogram EDMS 10/16 21:42 Order name: EKG Electrocardiogram EDMS 10/16 21:42 Order name: EKG Electrocardiogram ED[facility] 10/16 21:42 Order name: EKG Electrocardiogram [facility] 10/16 21:42 Order name: EKG Electrocardiogram [facility] 10/16 23:02 Order name: Transfuse; Complete Time: 00:31 bb Administered Medications: 19:10 Drug: NS 0.9% 1000 ml Route: IV; Rate: 1000 ml; Site: left hand; rr5 20:10 Follow up: IV Status: Completed infusion aa1 20:30 Follow up: Response: No adverse reaction; IV Status: Completed infusion; IV Intake: rr5 1000ml 19:40 Drug: Phenergan 12.5 mg Route: IVP; Site: left hand; rr5 23:30 Follow up: Response: No adverse reaction rr5 19:42 Drug: fentaNYL (PF) 50 mcg Route: IVP; Site: left hand; rr5 23:30 Follow up: Response: No adverse reaction rr5 23:30 Drug: Solu-CORTEF 50 mg Route: IVP; Site: left hand; rr5 10/17 00:20 Follow up: Response: No adverse reaction aa1 10/16 23:35 Drug: Benadryl 12.5 mg Route: IVP; Site: left hand; rr5 10/17 00:20 Follow up: Response: No adverse reaction aa1 10/16 23:45 Drug: Phenergan 12.5 mg Route: IVP; Site: left jugular; rr5 10/17 00:20 Follow up: Response: No adverse reaction; Nausea is decreased aa1 10/16 23:47 Drug: HYDROmorphone 0.5 mg Route: IVP; Site: left jugular; rr5 10/17 00:20 Follow up: Response: No adverse reaction; Pain is decreased aa1 Disposition: 07:05 Co-signature as Attending Physician, Benjamín Mcfarland MD I agree with the assessment and paola plan of care. Disposition: 10/16/18 21:51 Hospitalization ordered by Addison Almanzar for Inpatient Admission. Preliminary diagnosis are Anemia, Gastrointestinal hemorrhage, unspecified, Syncope and collapse. - Bed requested for Intensive Care Unit. - Status is Inpatient Admission. aa1 - Condition is Stable. - Problem is new. - Symptoms have improved. UTI on Admission? No Critical care time excluding procedures: 10/16 23:23 Critical care time: Bedside Care: 20 minutes, Consultation: 20 minutes, Family jr8 Intervention: 20 minutes. Total time: 60 minutes Signatures: Dispatcher [employer] EDCallie Kaur RN RN aa1 Benjamín Mcfarland MD MD cha Ballard, Brenda RN RN bb Rocío Betancur, RN RN ss Refugio Jay, PIETER PA jr8 Silvana Perry, RN RN Melo Michel RN RN rr5 Corrections: (The following items were deleted from the chart) 20:23 20:22 Abdomen Pelvis W Con+CT.RAD.BRZ ordered. EDMS EDMS 22:00 21:51 Hospitalization Ordered by Addison Almanzar MD for Inpatient Admission. Preliminary jr8 diagnosis is Anemia; Gastrointestinal hemorrhage, unspecified; Syncope and collapse. Bed requested for Telemetry/MedSurg (Inpatient). Status is Inpatient Admission. Condition is Stable. Problem is new. Symptoms have improved. UTI on Admission? No. jr8 22:24 22:00 10/16/2018 21:51 Hospitalization Ordered by Addison Almanzar MD for Inpatient cg Admission. Preliminary diagnosis is Anemia; Gastrointestinal hemorrhage, unspecified; Syncope and collapse. Bed requested for Intensive Care Unit. Status is Inpatient Admission. Condition is Stable. Problem is new. Symptoms have improved. UTI on Admission? No. jr8 10/17 00:30 12 22:24 10/16/2018 21:51 Hospitalization Ordered by Addison Almanzar MD for Inpatient aa1 Admission. Preliminary diagnosis is Anemia; Gastrointestinal hemorrhage, unspecified; Syncope and collapse. Bed requested for Intensive Care Unit. Status is Inpatient Admission. Condition is Stable. Problem is new. Symptoms have improved. UTI on Admission? No. cg
[2018-10-16] MEDS ORDERED: OCTREOTIDE 500 MCG in NA CHLORIDE 0.9% 500 ML IV SCH (22:00)
[2018-10-16] MEDS ORDERED: PANTOPRAZOLE INJ 80 MG in NA CHLORIDE 0.9% 250 ML IV SCH (22:00)
[2018-10-16] MEDS ORDERED: NA CHLORIDE 0.9% 250 ML IV SCH (22:00)
[2018-10-16] MEDS: NA CHLORIDE 0.9% 1,000 ML IV SCH (22:00)
[2018-10-16] MEDS ORDERED: NA CHLORIDE 0.9% 50 ML IV ONE (23:28)
[2018-10-16] MEDS ORDERED: HYDROCORTISONE SUC 100 MG INJ ONE (23:42)
[2018-10-16] MEDS ORDERED: ACETAMINOPHEN 325 MG TABLET ONE (23:43)
[2018-10-16] MEDS ORDERED: HYDROMORPHONE HCL 2 MG/ML inj ONE (23:43)
[2018-10-16] MEDS ORDERED: DIPHENHYDRAMINE 50 MG/ML VIAL ONE (23:44)
--- NOTE | 2018-10-17 02:36 | P.HP ---
Certification for Inpatient Patient admitted to: Inpatient With expected LOS: >2 Midnights Patient will require the following post-hospital care: None Practitioner: I am a practitioner with admitting privileges, knowledge of patient current condition, hospital course, and medical plan of care. Services: Services provided to patient in accordance with Admission requirements found in Title 42 Section 412.3 of the Code of Federal Regulations Patient History Date of Service: 10/16/18 Reason for admission: Lower GI bleeding History of Present Illness: Patient is a 42-year-old female who presents to the emergency room with an episode of lower GI bleeding and syncope. She says she has noticed some dark stools over the last 24-48 hr. This is been followed with some david colored stools. She was up and ambulating at home when she suddenly passed out. She is not sure exactly how long she was down but she became very lightheaded prior to passing out. Her workup is so far revealed a lower GI bleeding. This is most likely related to her multiple surgical intervention including a prior history of esophageal surgery and gastric surgery. She has had 1 episode of bleeding in the past but that is all she can remember. 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 She also has a history of scleroderma and Raynaud it is phenomenon. 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 At this time will go ahead and admit her to the hospital with a PPI and octreotide. GI consultation. Allergies Cephalosporins Allergy (Verified 05/04/18 13:53) cardiac arrest codeine [Codeine] Allergy (Verified 05/04/18 13:53) cardiac arrest esomeprazole mag [From Nexium] Allergy (Verified 05/04/18 13:53) Anaphylaxis meperidine HCl [From Demerol] Allergy (Verified 05/04/18 13:53) cardiac arrest morphine Allergy (Verified 05/04/18 13:53) cardiac arrest ondansetron [From Zofran] Allergy (Verified 05/04/18 13:53) severe bradycardia zolpidem [From Ambien] Adverse Reaction (Verified 05/04/18 13:53) sleep walking/ hallucinations Home Medications: Cyanocobalamin [Vitamin B-12*] 1,000 mcg SQ Q7D 05/04/18 Dextroamphetamine/Amphetamine [Adderall Xr 20 mg Capsule] 20 mg PO DAILY Furosemide [Lasix*] 20 mg PO DAILY 05/04/18 Furosemide [Lasix*] 20 mg PO LUNCH PRN 05/04/18 Hydrocodone 10/APAP 325 [Otis 10/325*] 1 tab PO Q6H PRN 05/04/18 Promethazine HCl 50 mg PO Q8H 05/04/18 Spironolactone [Aldactone*] 25 mg PO BID 05/04/18 Topiramate [Topamax*] 100 mg PO BID 05/04/18 diazePAM [Diazepam] 10 mg PO BEDTIME 05/04/18 Nifedipine [Afeditab Cr] 30 mg PO TID #90 tablet.er 05/05/18 - Past Medical/Surgical History Has patient received pneumonia vaccine in the past: Yes Diabetic: No -: CHRON'S -: COLITIS -: SCLERODERMA -: EPILEPSY -: ANEMIA -: RAYNAUD'S SYNDROME -: MIGRAINE HEADACHES -: HYPERTENSION -: HERNIA REPAIR -: IVAN -: TONSILLECTOMY -: REMOVAL OF STOMACH -: REMOVAL OF ESOPHAGUS -: INTERPOSITION OF JEJUNUM - Family History Sister Medical History: Heart disease, Cancer Father Medical History: Heart disease - Social History Smoking Status: Never smoker Alcohol use: No CD- Drugs: No Caffeine use: Yes Place of Residence: Home Review of Systems 10-point ROS is otherwise unremarkable Physical Examination - Vital Signs Temperature: 98.5 F Blood Pressure: 128/70 Pulse: 90 Respirations: 17 Pulse Ox (%): 95 - Physical Exam General: Alert, In no apparent distress, Oriented x3 HEENT: Atraumatic, PERRLA, Mucous membr. moist/pink, EOMI, Sclerae nonicteric Neck: Supple, 2+ carotid pulse no bruit, No LAD, Without JVD or thyroid abnormality Respiratory: Clear to auscultation bilaterally, Normal air movement Cardiovascular: Regular rate/rhythm, Normal S1 S2 Gastrointestinal: Normal bowel sounds, Soft and benign, Non-distended, Tenderness (epigastric) Musculoskeletal: No clubbing, No swelling, No tenderness Integumentary: No rashes Neurological: Normal gait, Normal speech, Normal strength at 5/5 x4 extr, Normal tone, Sensation intact, Cranial nerves 3-12 intact, Normal affect Lymphatics: No axilla or inguinal lymphadenopathy - Studies Laboratory Data (last 24 hrs) 10/16/18 18:48: PT 14.6 H, INR 1.23 10/16/18 18:48: WBC 10.2, Hgb 8.3 L, Hct 24.3 L, Plt Count 290 10/16/18 18:48: Sodium 139, Potassium 4.6, BUN 23 H, Creatinine 0.60, Glucose 106, Magnesium 2.1, Total Bilirubin 0.3, AST 51 H, ALT 66, Alkaline Phosphatase 114, Lipase 69 L Assessment & Plan - Problems (Diagnosis) (1) Acute blood loss anemia Current Visit: Yes Status: Acute (2) Gastrointestinal bleeding Current Visit: Yes Status: Acute (3) Chest pain Onset Date: 05/05/18 Current Visit: No Status: Acute (4) Raynaud's disease Onset Date: 05/05/18 Current Visit: No Status: Acute (5) Scleroderma Onset Date: 05/05/18 Current Visit: No Status: Acute - Plan Plan: 1. Continue with IV hydration and PPI drip 2. Continue with IV antibiotics 3. Continue with pain control 4. NPO 5. GI consultation 6. Serial H&H, and we will monitor LFTs and lipase along with electrolytes. Monitor coagulopathy 7. GI and DVT prophylaxis Discharge Plan: Home Plan to discharge in: Greater than 2 days - Advance Directives Does patient have a Living Will: Yes Does patient have a Durable POA for Healthcare: Yes - Code Status/Comfort Care Code Status Assessed: Yes Code Status: Full Code Critical Care: Yes Time Spent Managing PTS Care (In Minutes): 60
[2018-10-17] MEDS ORDERED: PANTOPRAZOLE 40 MG INJ ONE (03:22)
[2018-10-17] MEDS ORDERED: NA CHLORIDE 0.9% 250 ML ONE ×2 (03:22)
[2018-10-17] MEDS ORDERED: NA CHLORIDE 0.9% 500 ML ONE ×2 (03:23→10:51)
[2018-10-17] MEDS ORDERED: OCTREOTIDE ACETATE 500 MCG/ML ONE (03:24)
[2018-10-17] MEDS: FENTANYL CITR 100 MCG/2 ML IV PRN ×2 (04:04→08:27)
[2018-10-17] MEDS: PROMETHAZINE 25 MG/ML VIAL IV PRN ×4 (04:05→17:53)
--- NOTE | 2018-10-17 08:17 | RAD REPORT ---
EXAM DESCRIPTION: RAD - Chest Single View - 10/17/2018 3:12 am CLINICAL HISTORY: PICC Placment COMPARISON: Chest Single View dated 10/16/2018; Chest Single View dated 05/04/2018; Chest Single View dated 10/02/2016; CHEST PA AND LAT 2 VIEW dated 12/11/2014 FINDINGS: Portable chest was obtained following placement of a right upper extremity PICC line. The catheter tip projects over the SVC..
[2018-10-17 08:31] LABS: Absolute Lymphocytes (CBC) 1.9 K/uL (0.7-4.9); Absolute Monocytes 0.6 K/uL (0.1-1.3); Absolute Neutrophil 5.9 K/uL (1.8-8.0); Basophils % 0.2 % (0-1.3); Eosinophils % 1.2 % (0-4.4); MCH 30.3 pg (27.0-35.0); MCV 89.7 fL (80-100); MPV 8.2 fL (7.6-11.3); Monocytes % 7.1 % (3.3-12.3); RBC Red Blood Cell Count 2.79 M/uL (3.86-4.86)
[2018-10-17 08:39] LABS: Protime INR 1.17
[2018-10-17] MEDS: SPIRONOLACTONE 25 MG TABLET PO SCH ×2 (09:52→21:37)
[2018-10-17] MEDS: TOPIRAMATE 100 MG TAB PO SCH ×2 (09:52→21:37)
--- NOTE | 2018-10-17 11:35 | EKG ---
Test Date: 2018-10-16 Test Time: 19:30:32 Changer Fixer: JONATHAN MEASUREMENT RESULTS: Intervals: Rate: 93 ME: 144 QRSD: 76 QT: 378 QTc: 469 [place]: P: 37 ME: 144 QRS: 36 T: 10 INTERPRETIVE STATEMENTS: Normal sinus rhythm Nonspecific T wave abnormality Prolonged QT Abnormal ECG Compared to ECG 05/04/2018 07:53:14 T-wave abnormality now present Prolonged QT interval now present Electronically Signed On 10-17-18 11:35:05 COTTON CLASSER AIDE by Patrice Blanco
[2018-10-17] MEDS: HYDROMORPHONE HCL 1 MG/ML INJ IV PRN ×2 (12:14→17:53)
[2018-10-17] MEDS ORDERED: PHENOL 1.4% ORAL SPRAY 180ML MM PRN (12:24)
[2018-10-17] MEDS ORDERED: NA CHLORIDE 0.9% 1,000 ML IV SCH (14:00)
[2018-10-17] MEDS: OCTREOTIDE 500 MCG in NA CHLORIDE 0.9% 500 ML IV SCH ×2 (14:03→22:57)
[2018-10-17] MEDS: PANTOPRAZOLE INJ 80 MG in NA CHLORIDE 0.9% 250 ML IV SCH ×2 (14:03→22:56)
[2018-10-17] MEDS: NA CHLORIDE 0.9% 1,000 ML IV SCH (14:03)
[2018-10-17] MEDS: ACETAMINOPHEN 500 MG TAB PO PRN ×2 (15:32→21:39)
[2018-10-17 15:40] LABS: Hematocrit 27.2 % (36.0-45.0)
--- NOTE | 2018-10-17 18:07 | P.PN ---
Subjective Date of Service: 10/17/18 Chief Complaint: Lower GI bleeding Subjective: No new changes, No C/O voiced Patient seen and examined at bedside. No family at bedside. Chart reviewed and case discussed with nursing staff. Symptoms unchanged, still complaining of lower abdominal pain and blood in the stool Remained hemodynamically stable overnight Review of Systems As noted Physical Examination - Vital Signs Temperature: 97.5 F Blood Pressure: 119/73 Pulse: 62 Respirations: 16 Pulse Ox (%): 96 - Physical Exam General: Alert, Oriented x3, Mild distress HEENT: Atraumatic, PERRLA, EOMI Neck: Supple, JVD not distended Respiratory: Clear to auscultation bilaterally, Normal air movement Cardiovascular: Regular rate/rhythm, Normal S1 S2 Gastrointestinal: Tenderness Musculoskeletal: No tenderness Integumentary: No rashes Neurological: Normal speech, Normal tone, Normal affect Lymphatics: No axilla or inguinal lymphadenopathy - Studies Laboratory Data (last 24 hrs) 10/16/18 18:48: PT 14.6 H, INR 1.23 10/16/18 18:48: WBC 10.2, Hgb 8.3 L, Hct 24.3 L, Plt Count 290 10/16/18 18:48: Sodium 139, Potassium 4.6, BUN 23 H, Creatinine 0.60, Glucose 106, Magnesium 2.1, Total Bilirubin 0.3, AST 51 H, ALT 66, Alkaline Phosphatase 114, Lipase 69 L Assessment And Plan - Plan (1) Acute blood loss anemia Current Visit: Yes Status: Acute (2) Gastrointestinal bleeding Current Visit: Yes Status: Acute (3) Chest pain Onset Date: 05/05/18 Current Visit: No Status: Acute (4) Raynaud's disease Onset Date: 05/05/18 Current Visit: No Status: Acute (5) Scleroderma Onset Date: 05/05/18 Current Visit: No Status: Acute - Plan Plan: 1. Continue with IV hydration and PPI drip 2. Continue with IV antibiotics 3. Continue with pain control 4. NPO 5. GI consultation, recommendations appreciated. planned an EGD tomorrow. Possible colonoscopy? 6. Serial H&H, and we will monitor LFTs and lipase along with electrolytes. Monitor coagulopathy 7. GI and DVT prophylaxis
[2018-10-18] MEDS: HYDROMORPHONE HCL 1 MG/ML INJ IV PRN ×3 (00:17→18:32)
[2018-10-18] MEDS: PROMETHAZINE 25 MG/ML VIAL IV PRN ×3 (00:17→18:32)
[2018-10-18] MEDS: NA CHLORIDE 0.9% 1,000 ML IV SCH ×4 (02:05→16:40)
[2018-10-18 05:13] VITALS: BMI 33.8
[2018-10-18 05:39] LABS: Absolute Lymphocytes (CBC) 1.9 K/uL (0.7-4.9); Absolute Monocytes 0.5 K/uL (0.1-1.3); Absolute Neutrophil 3.9 K/uL (1.8-8.0); Basophils % 0.5 % (0-1.3); Eosinophils % 6.8 % (0-4.4); Hematocrit 26.7 % (36.0-45.0); Lymphocytes % 27.6 % (15.3-44.8); MCH 29.3 pg (27.0-35.0); MPV 8.4 fL (7.6-11.3); Monocytes % 7.7 % (3.3-12.3); RBC Red Blood Cell Count 3.03 M/uL (3.86-4.86)
[2018-10-18 05:53] LABS: BUN Blood Urea Nitrogen 8 mg/dL (7-18); Bicarbonate 26 mmol/L (21-32); Glucose Level 85 mg/dL (74-106); Potassium 3.9 mmol/L (3.5-5.1); Sodium Level 142 mmol/L (136-145)
[2018-10-18] MEDS: TOPIRAMATE 100 MG TAB PO SCH ×2 (08:38→21:00)
[2018-10-18] MEDS: PANTOPRAZOLE INJ 80 MG in NA CHLORIDE 0.9% 250 ML IV SCH ×2 (08:39→23:15)
[2018-10-18] MEDS: OCTREOTIDE 500 MCG in NA CHLORIDE 0.9% 500 ML IV SCH ×2 (08:39→23:15)
[2018-10-18] MEDS: SPIRONOLACTONE 25 MG TABLET PO SCH ×2 (09:00→21:00)
[2018-10-18] MEDS ORDERED: PROPOFOL 200 MG/20 ML VIAL IV ONE ×2 (12:40)
[2018-10-18] MEDS ORDERED: LIDOCAINE 1% MPF 5 ML VIAL ONE (12:40)
--- NOTE | 2018-10-18 14:00 | ENDO RPT ---
[address], [address] EGD PROCEDURE REPORT EXAM DATE: 10/18/2018 PATIENT NAME: Liza Dexter MR#: [id number] BIRTHDATE: 1975 ATTENDING: Armin Kauffman Dr STATUS: inpatient - [facility] [employer] TE[employer]ER: Eleanor Quan RN, Allyson Leon, and Lashaun Leon INDICATIONS: The patient is a 42 yr old Female here for an EGD due to melenic bleeding, red rectal bleeding, and anemia PROCEDURE PERFORMED: EGD, diagnostic MEDICATIONS: Per Anesthesia. TOPICAL ANESTHETIC: none CONSENT: The patient understands the risks and benefits of the procedure and understands that these risks include, but are not limited to: sedation, allergic reaction, infection, perforation and/or bleeding. Alternative means of evaluation and treatment include, among others: physical exam, x-rays, and/or surgical intervention. The patient elects to proceed with this endoscopic procedure. DESCRIPTION OF PROCEDURE: During intra-op preparation period all mechanical medical equipment was checked for proper function. Hand hygiene and appropriate measures for infection prevention was taken. Procedure, possible complications, and alternatives including but not limited to the possibility of bleeding, perforation, tear, infection, sepsis, need for surgery, need for blood transfusion, and anesthesia related complications were explained to the patient. After the risks, benefits and alternatives of the procedure were thoroughly explained, Informed consent was verified, confirmed and timeout was successfully executed by the treatment team. The patient was placed in the left lateral position. The patient was anesthetized with topical anesthesia. Through the anesthetized oropharyngeal area, the scope was passed without any difficulty. The Pentax EG-[id number] ([id number]) endoscope was introduced through the mouth and advanced to the mid jejunum. Retroflexion was not performed. The gastroscope was then slowly withdrawn and removed. LA Class C esophagitis was found in the lower esophagus. Anastomosis was noted in the fundus. Inflammation / erythema at anastomosis but no ongoing bleeding. ADVERSE EVENTS: There were no complications. IMPRESSIONS: 1. 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 Anastomosis in the "distal esophagus" / < 1cm fundus with efferent afferent jejunal limbs 3. Inflammation / erythema at anastomosis but no ongoing bleeding RECOMMENDATIONS: 1. acid suppression therapy 2. monitor labs and consider colonoscopy / small bowel series / pillcam 3. await EGD report from 2 weeks ago at outside hospital for same type of GI bleeding REPEAT EXAM: Armin Kauffman Dr eSigned: Armin Kauffman Dr 10/18/2018 12:51 PM cc: CPT CODES: ICD9 CODES: PATIENT NAME: Liza Dexter MR#: [id number]
--- NOTE | 2018-10-18 15:19 | RAD REPORT ---
EXAM DESCRIPTION: RAD - Chest Single View - 10/18/2018 3:13 pm CLINICAL HISTORY: Difficulty breathing, shortness of breath COMPARISON: October 17 TECHNIQUE: AP portable chest image was obtained 1459 hours . FINDINGS: No acute lung parenchymal process. No failure or volume overload. PICC line remains in sunil ce on the right. Heart and vasculature are normal. No measurable pleural effusion and no pneumothorax . No acute bony abnormality seen. No acute aortic findings suspected. IMPRESSION: No acute cardiopulmonary process. No significant change from comparison.
--- NOTE | 2018-10-18 19:36 | PN ---
Date of Progress Note: 10/18/2018 History: The patient seen and examined. Chart reviewed and case discussed with RN and Dr. Kauffman. The patient complained of some headache, not feeling well overall. Review of Systems: Negative except as above. Medications: List reviewed. Physical Examination: Vital Signs: Temperature 98, heart rate 75, respirations 18, blood pressure 104/41, O2 100% on room air. General: Awake, alert, oriented x3, ill-appearing female, obese. BMI 33.8. CV: S1, S2. Regular rate and rhythm. Peripheral pulses present. No murmurs. Respiratory: Moving air well bilaterally. No wheezing or stridor. No use of accessory muscles. Gastrointestinal: Abdomen is soft. Tenderness to palpation throughout. No guarding or rigidity. P ositive bowel sounds. Extremities: No clubbing, cyanosis, or edema. No calf tenderness. Neuro: Cranial nerves 2-12 intact grossly. No focal neurological deficits. Speech is normal. Skin: No rashes. Normal skin turgor. Psych: Mood is depressed. Affect is congruent with mood. Insight and judgment are fair. Laboratory Data: Sodium 142, potassium 3.9, chloride 112, CO2 26, BUN 8, creatinine 0.5, glucose 85, calcium 7.6. WBC 6.8, H and H 8.9 and 26.7, platelets 196, neutrophils 57.4%. Assessment And Plan: A 42-year-old female with: 1.Acute blood loss anemia secondary to gastrointestinal bleed. The patient has been transfused 3 un its of PRBCs total. We will continue to monitor H and H and transfuse for hemoglobin less than 8. 2.Gastrointestinal bleed. The patient has both hematochezia and melena. The patient had scope done recently. Dr. Kauffman performed endoscopy today, found to have esophagitis, inflammation, erythema a t the anastomosis, but no bleeding. We will continue to monitor. Continue PPI. 3.Chest pain, likely atypical. 4.Raynaud disease. 5.Scleroderma. 6.Obesity, BMI 33.8. Plan: Continue monitoring in the ICU. Appreciate Dr. Kauffman's input. SA/MODL Voice ID: [id number] Report ID: [id number]
[2018-10-18] MEDS: MUCINEX DM 12HR.SR TAB PO PRN (23:15)
[2018-10-19] MEDS: PROMETHAZINE 25 MG/ML VIAL IV PRN ×3 (00:34→22:34)
[2018-10-19] MEDS: HYDROMORPHONE HCL 1 MG/ML INJ IV PRN ×3 (00:34→22:34)
--- NOTE | 2018-10-19 03:19 | CON ---
Date of Consultation: 10/18/2018 Additional Attending Physician: Les Salguero M.D. Reason For Consultation: Right foot pain. History Of Present Illness: Liza is a 42-year-old female who presented to the ER on October 16, 2018 , with history of low GI bleeding. Prior to admission, she had 24 to 48 hours of dark stools. While at home, she subsequently had a syncopal episode with subsequent pain to her right foot while she wa s admitted to the hospital and has had serial H and H monitoring as well as GI consult and endoscopy. Upon arrival to the emergency room, she had x-rays of the right foot given her pain and swelling, a nd she was noted to have a 5th metatarsal fracture. She has been monitored closely medically as well as monitored for her vital signs instability; at this point, as her stability has improved, she will soon be mobilizing with Physical Therapy. I was called to further evaluate her right foot and offer recommendations. She denies any other musculoskeletal complaints at this time. Review of Systems: As above, otherwise negative. Past Medical History: Includes history of Crohn's, scleroderma, epilepsy, anemia, Raynaud syndrome, migraine headaches, and hypertension. Past Surgical History: Includes hernia repair, cholecystectomy, tonsillectomy, partial and total gas trectomy. Home Medications: Include; 1.Vitamin B12. 2.Adderall. 3.Lasix. 4.[place]. 5.Promethazine. 6.Aldactone. 7.Topamax. 8.Diazepam. 9.Nifedipine. Allergies: 1.CEPHALOSPORIN. 2.CODEINE. 3.NEXIUM. 4.DEMEROL. 5.MORPHINE. 6.ZOFRAN. 7.AMBIEN. Social History: Denies tobacco, alcohol, or drug use. Physical Examination: General: No apparent distress. HEENT: Normocephalic, atraumatic. Neck: Supple. Cardiovascular: Brisk cap refill to all digits. Chest: Nonlabored breathing. Abdomen: Nondistended. Psychiatric: Responds to examination. Musculoskeletal: Right lower extremity; tenderness to palpation over the right fifth metatarsal with surrounding swelling and mild ecchymosis. Sensation grossly intact to the dorsal and plantar surfac e of her foot. Positive firing of EHL, FHL, gastrocsoleus complex, and tibialis anterior. X-rays: X-rays of the right foot demonstrated an oblique mildly displaced 5th metatarsal shaft fract ure with acceptable alignment. Assessment And Plan: Ms. Dexter is a 42-year-old female with a right 5th metatarsal shaft fracture. I discussed with the patient and her family, her diagnosis as well as treatment plan. We will procee d with conservative treatment measures including immobilization with a CAM boot. She will be nonweig htbearing on her right lower extremity and mobilize with crutches. Physical Therapy will be consulted to aid with normalization. MAULIK/MODL Voice ID: [id number] Report ID: [id number]
[2018-10-19 05:16] LABS: Absolute Lymphocytes (CBC) 1.7 K/uL (0.7-4.9); Absolute Monocytes 0.6 K/uL (0.1-1.3); Absolute Neutrophil 7.2 K/uL (1.8-8.0); Basophils % 0.5 % (0-1.3); Eosinophils % 5.9 % (0-4.4); Hematocrit 27.9 % (36.0-45.0); Lymphocytes % 16.6 % (15.3-44.8); MCH 29.8 pg (27.0-35.0); MCV 87.5 fL (80-100); MPV 8.5 fL (7.6-11.3); Monocytes % 5.5 % (3.3-12.3); RBC Red Blood Cell Count 3.18 M/uL (3.86-4.86)
[2018-10-19 05:28] LABS: ALT/SGPT 35 U/L (12-78); AST/SGOT 21 U/L (15-37); Albumin 2.6 g/dL (3.4-5.0); Alkaline Phosphatase 99 U/L (45-117); BUN Blood Urea Nitrogen 9 mg/dL (7-18); Bicarbonate 23 mmol/L (21-32); Bilirubin Total 0.3 mg/dL (0.2-1.0); Glucose Level 97 mg/dL (74-106); Potassium 3.7 mmol/L (3.5-5.1); Protein, Total 5.5 g/dL (6.4-8.2); Sodium Level 139 mmol/L (136-145)
[2018-10-19] MEDS: PANTOPRAZOLE INJ 80 MG in NA CHLORIDE 0.9% 250 ML IV SCH ×3 (05:38→17:53)
[2018-10-19] MEDS: OCTREOTIDE 500 MCG in NA CHLORIDE 0.9% 500 ML IV SCH ×3 (05:38→17:53)
[2018-10-19] MEDS: NA CHLORIDE 0.9% 1,000 ML IV SCH ×3 (05:38→22:19)
[2018-10-19] MEDS: SPIRONOLACTONE 25 MG TABLET PO SCH ×2 (09:00→21:00)
[2018-10-19] MEDS: TOPIRAMATE 100 MG TAB PO SCH ×2 (09:00→21:00)
[2018-10-19] MEDS ORDERED: HYDROCODONE/APAP 10/325 TAB PO PRN (10:21)
--- NOTE | 2018-10-19 17:29 | PN ---
Date of Progress Note: 10/19/2018 Subjective: Patient seen and examined. Chart reviewed and case discussed with RN and Dr. Dias. The patient not very cooperative with history taking. However, denies any significant issues overnight. Apparently, per nursing staff, the patient had chicken nuggets last night that were brought in from outside by family. Medications: List reviewed. Physical Examination: Vital Signs: Temperature 96.9, heart rate 65, blood pressure 119/68, respirations 20, O2 96% on room air. General: Awake, alert, oriented x3. Some mild distress, ill-appearing, obese female. CV: S1, S2. Regular rate and rhythm. Peripheral pulses present. No murmurs. Respiratory: Moving air well bilaterally. No wheezing or stridor. Gastrointestinal: Abdomen is soft. No tenderness to palpation. No distention. Positive bowel soun ds. Extremities: No clubbing, cyanosis, or edema. Neurologic: Nonfocal. Laboratory Data: Sodium 139, potassium 3.7, chloride 110, CO2 23, BUN 9, creatinine 0.6, glucose 97, calcium 7.7, albumin 2.6. WBC 10.1, hemoglobin and hematocrit 9.5 and 27.9, platelets 213, neutroph ils 71%. Assessment: A 42-year-old female: 1.Acute blood loss anemia secondary to gastrointestinal bleed, status post 3 units packed red blood cells. Monitor hemoglobin and hematocrit and transfuse as needed for hemoglobin of less than 8, curr ently it has been stable. 2.Acute gastrointestinal bleed. The patient has had hematochezia and melena. Esophagogastroduodeno scopy done by Dr. Kauffman, found to have esophagitis, erythema at the anastomosis site, but no active bleeding. We will continue with proton pump inhibitors. 3.Atypical chest pain, resolved. 4.Raynaud's phenomenon. 5.Scleroderma. 6.Obesity, body mass index of 33.8. 7.Mildly displaced fifth metatarsal shaft fracture, initial encounter. The patient will be placed i n a Cam boot with immobilization and nonweightbearing on the right lower extremity. Appreciate Dr. Shannon virk's input. Conservative treatment for now. 8.Status post transposition of jejunum and resection of esophagus and stomach. 9.Gastrointestinal and deep vein thrombosis prophylaxis addressed. Plan: Step down from ICU. Probably discharge in the next 48 to 72 hours depending on clinical respo nse. SA/MODL Voice ID: [id number] Report ID: [id number]
--- NOTE | 2018-10-19 17:51 | RAD REPORT ---
EXAM DESCRIPTION: RAD - Small Bowel Series - 10/19/2018 5:28 pm CLINICAL HISTORY: GIB Abdominal pain COMPARISON: Abdomen Pelvis Wo Contrast dated 10/16/2018 FINDINGS: Director Of Group Sales film shows a nonspecific bowel gas pattern. No obstruction or free air. No suspiciou s calcifications. Gastric size is quite small with postsurgical changes present. No delay in transit of contrast into t he small bowel. Small bowel is normal in diameter with no mucosal fold thickening. Overall, small bow el length appears shortened. No intrinsic or extrinsic mass identifiable. Terminal ileum has normal a ppearance. Transit time to the colon is normal. No fluoroscopy was performed. Total images aquired: 14 IMPRESSION: Postsurgical changes are present without additional abnormality detected.
[2018-10-19] MEDS: MUCINEX DM 12HR.SR TAB PO PRN (22:34)
[2018-10-20] MEDS: OCTREOTIDE 500 MCG in NA CHLORIDE 0.9% 500 ML IV SCH (03:07)
[2018-10-20] MEDS: PANTOPRAZOLE INJ 80 MG in NA CHLORIDE 0.9% 250 ML IV SCH (03:08)
[2018-10-20 05:01] LABS: Absolute Lymphocytes (CBC) 1.7 K/uL (0.7-4.9); Absolute Monocytes 0.6 K/uL (0.1-1.3); Absolute Neutrophil 5.1 K/uL (1.8-8.0); Basophils % 0.5 % (0-1.3); Eosinophils % 7.1 % (0-4.4); Hematocrit 28.4 % (36.0-45.0); Lymphocytes % 21.2 % (15.3-44.8); MCH 29.6 pg (27.0-35.0); MCV 89.4 fL (80-100); MPV 8.4 fL (7.6-11.3); Monocytes % 7.1 % (3.3-12.3); RBC Red Blood Cell Count 3.18 M/uL (3.86-4.86)
[2018-10-20 05:11] LABS: Albumin 2.6 g/dL (3.4-5.0); Bilirubin Total 0.3 mg/dL (0.2-1.0); Potassium 3.3 mmol/L (3.5-5.1); Protein, Total 5.6 g/dL (6.4-8.2)
[2018-10-20 06:33] VITALS: O2SAT 100
[2018-10-20 08:53] VITALS: BP 103/60; TEMP 98.5
[2018-10-20] MEDS: SPIRONOLACTONE 25 MG TABLET PO SCH (09:00)
[2018-10-20] MEDS: TOPIRAMATE 100 MG TAB PO SCH (09:00)
[2018-10-20] MEDS ORDERED: DULOXETINE 30 MG CAP PO SCH (09:00)
[2018-10-20] MEDS: NA CHLORIDE 0.9% 1,000 ML IV SCH (09:09)
[2018-10-20] MEDS ORDERED: METOCLOPRAMIDE 10 MG/2mL INJ IV SCH (12:00)
--- NOTE | 2018-10-20 12:22 | P.PN ---
Subjective Date of Service: 10/20/18 Chief Complaint: Lower GI bleeding Subjective: Improving (No further GI bleeding noted. Small bowel series negative but states she was left on table in radiology for hours without attendant and upset; now leaving AMA, she, mother, and RNs tell me.) Review of Systems 10-point ROS is otherwise unremarkable General: Weakness (improved) Physical Examination - Vital Signs Temperature: 98.5 F Blood Pressure: 103/60 Pulse: 56 Respirations: 16 Pulse Ox (%): 98 - Physical Exam General: Alert, In no apparent distress, Oriented x3, Cooperative HEENT: Atraumatic, Normocephalic, PERRLA, EOMI Neck: Supple Respiratory: Normal air movement Cardiovascular: Normal pulses Gastrointestinal: Soft and benign, No tenderness, No rebound, No guarding Neurological: Normal speech Assessment And Plan - Current Problems (Diagnosis) (1) Melena Current Visit: Yes Status: Acute Comment: Improved. No GI bleeding in 2 days. Leaving AMA so will not do colonoscopy here; she will followed with her GI for evaluation / therapy (e.g. colonoscopy and other as indicated). (2) Hematochezia Current Visit: Yes Status: Acute (3) Acute blood loss anemia Onset Date: 10/17/18 Current Visit: Yes Status: Acute (4) Gastrointestinal bleeding Onset Date: 10/17/18 Current Visit: Yes Status: Acute (5) Raynaud's disease Onset Date: 05/05/18 Current Visit: No Status: Acute (6) Scleroderma Onset Date: 05/05/18 Current Visit: No Status: Acute - Plan REC: 1) Leaving AMA so will not do colonoscopy here; she will followed with her GI for evaluation / therapy (e.g. colonoscopy and other as indicated).
[2018-10-20] MEDS ORDERED: MAGNESIUM CITRATE 300 ML BOT PO SCH (13:00)
[2018-10-20] MEDS ORDERED: GOLYTELY 4000 ML PO SCH (14:00)
--- NOTE | 2018-10-21 07:30 | DS ---
Date of Discharge: 10/20/2018 Consultants: Dr. Kauffman with GI, Dr. Dias with Orthopedics. Procedures: EGD by Dr. Kauffman on 10/19/2018 showed esophagitis. Admitting Diagnoses: 1.Acute blood loss anemia. 2.Acute gastrointestinal bleed. 3.Chest pain. 4.Raynaud phenomenon. 5.Scleroderma. Discharge Diagnoses: 1.Acute blood loss anemia secondary to gastrointestinal bleed, status post 2 units PRBCs. 2.Acute gastrointestinal bleed with hematochezia and melena, status post esophagogastroduodenoscopy. 3.Atypical chest pain, resolved. 4.Raynaud phenomenon. 5.Scleroderma. 6.Obesity, body mass index 33.8. 7.Mildly displaced fifth metatarsal shaft fracture. Initial encounter. The patient refused Cam olson t with immobilization and nonweightbearing. 8.Status post transposition of the jejunum and resection of the esophagus and stomach. Hospital Course: The patient is a 42-year-old female who has history of Raynaud phenomenon, sclerode rma, has had multiple GI surgeries including cholecystectomy, removal of the stomach and esophagus, a nd interpositioning of the jejunum. Also has Crohn's and history of colitis who comes in with lower gastrointestinal bleed. The patient recently had EGD done at outside facility, however continued to have GI bleed. The patient was anemic, had hemoglobin of 7.6. She was transfused a total of 3 units of PRBCs. Her hemoglobin remained stable afterwards. She did complain of some hematochezia and gallo jericho. The patient was started on IV PPI. She was seen by GI, Dr. Kauffman, who performed the EGD with findings as above. The patient was slowly started on clear liquid diet. However, patient stated devon t she was not hungry. However, in the ICU, the patient was found to be eating nuggets brought by her family member. The patient's diet was advanced; however, the patient did not eat very much from the hospital food. Regarding her fifth metatarsal fracture after fall, the patient was seen by Orthoped ics who recommended nonweightbearing and fracture boot. The patient refused to wear fracture boot an d also refused to work with physical therapy to learn how to mobilize using crutches or walker as she will be nonweightbearing on the right lower extremity. The patient did have a small bowel series as she has a history of esophageal interposition which was negative and did not show any obstruction. The patient then decided to leave against medical advice. She was noncompliant with wearing the frac ture boot, noncompliant with her diet, also refused to work with physical therapy, not really coopera tive with history. The patient then signed out AMA. Physical Examination: General: Awake, alert, oriented x3, not in any acute distress. Obese female. CV: S1, S2. No murmurs. Respiratory: Moving air well bilaterally. Abdomen: Soft, nontender, nondistended. Positive bowel sounds. Extremities: No clubbing, cyanosis, edema. Neurologic: Nonfocal. SA/MODL Voice ID: [id number] Report ID: [id number]
== END 2018-10-20 12:24 | disposition left against medical advice (07) | DRG 812 ==
LOC: ER 17:40 → ERHOLD 21:37 → 3RD-ICU 23:02 → 2ND 10-19 10:41
PROVIDERS: ADMIT Hospitalist; ATTEND Family Medicine
PROC: 02HV33Z Insertion of Infusion Device into Superior Vena Cava, Percutaneous Approach (ICD-10-PCS; principal; 2018-10-17)
PROC: B548ZZA Ultrasonography of Superior Vena Cava, Guidance (ICD-10-PCS; 2018-10-17)
PROC: 30233N1 Transfusion of Nonautologous Red Blood Cells into Peripheral Vein, Percutaneous Approach (ICD-10-PCS; 2018-10-17)
PROC: 0DJ08ZZ Inspection of Upper Intestinal Tract, Via Natural or Artificial Opening Endoscopic (ICD-10-PCS; 2018-10-18)
DX: D62 Acute posthemorrhagic anemia (principal); K92.2 Gastrointestinal hemorrhage, unspecified; K50.90 Crohn's disease, unspecified, without complications; K92.1 Melena; I73.00 Raynaud's syndrome without gangrene; Z88.5 Allergy status to narcotic agent; Z88.8 Allergy status to other drugs, medicaments and biological substances; G40.909 Epilepsy, unspecified, not intractable, without status epilepticus; M34.9 Systemic sclerosis, unspecified; K20.8 Other esophagitis; R07.89 Other chest pain; E66.9 Obesity, unspecified; Z68.33 Body mass index [BMI] 33.0-33.9, adult; S92.351A Displaced fracture of fifth metatarsal bone, right foot, initial encounter for closed fracture; W01.0XXA Fall on same level from slipping, tripping and stumbling without subsequent striking against object, initial encounter; Y93.01 Activity, walking, marching and hiking; Y92.019 Unspecified place in single-family (private) house as the place of occurrence of the external cause; R55 Syncope and collapse
CPT/HCPCS: 36415; 36430; 70450; 71045; 74176; 74250; 80048; 80053; 80076; 83690; 83735; 83880; 84484; 85014; 85018; 85025; 85610; 85730; 86850; 86900; 86901; 93005; 99285; C9113; J1170; J1720; J2354; J2550; J2704; J3010; J7030; P9016

== ENCOUNTER 2019-05-24 20:21 | Emergency (ER) | payer OTHER ==
--- OUTSIDE RECORDS SUMMARY | 2019-05-24 20:25 | XMS REPORT | Clinical Summary ---
:1975 Author Organization [facility] Address [address] [place] [address] Care Team Providers Name Role Phone Higinio Meza MD Primary Care Provider Allergies Active Allergy Reactions Severity Noted Date Comments Zolpidem Other (See Comments) High 05/25/2016 INSOMNIA, ANXIETY Baclofen Other (See Comments) 02/21/2019 seizures Cephalosporins 03/16/2017 Clindamycin Anaphylaxis High 08/12/2018 Rash, vomiting, throat swelling Codeine Other (See Comments) High 05/25/2016 CARDIAC ARREST Meperidine Other (See Comments) High 05/25/2016 CARDIAC ARREST Esomeprazole Magnesium Nausea And Vomiting High 10/09/2016 CARDIAC ARREST Meperidine Hcl GI Intolerance 03/09/2010 Morphine Other (See Comments) High 05/25/2016 CARDIAC ARREST EFFECT Esomeprazole Magnesium Other (See Comments) High 05/25/2016 CARDIAC ARREST Ondansetron Hcl (Pf) Other (See Comments) 11/29/2018 bradycardia Ondansetron Other (See Comments) 08/12/2017 Bradycardia and low heart rate Medications Medication Sig Dispensed Refills Start End Date Status Date folic acid (FOLVITE) Take 1 mg by 0 Active 1 MG tablet mouth daily. dextromethorphan-guai Take 1 tablet 0 Active fenesin (MUCINEX DM by mouth 2 REGULAR) 30-600 mg (two) times a tablet extended day. release 12 hr lidocaine HCl 5 mL by mucous 100 mL 3 Active (lidocaine) 2 % membrane route 7 solution every 3 (three) hours. fluocinonide (LIDEX) Apply topically 30 g 2 Active 0.05 % ointment 2 (two) times a 8 day as needed (rash or itching). hyoscyamine (LEVSIN) DISSOLVE 1 30 tablet 0 Active 0.125 mg SL tablet TABLET(0.125 8 MG) UNDER THE TONGUE EVERY 4 HOURS NEEDED FOR CRAMPING OR DIARRHEA promethazine TAKE 1 TABLET 270 tablet 0 Active (PHENERGAN) 50 MG BY MOUTH EVERY 8 tabletIndications: 8 HOURS Non-intractable NEEDED FOR vomiting with nausea, NAUSEA OR unspecified vomiting VOMITING type amLODIPine (NORVASC) Take 1 tablet 90 tablet 1 09/08/20 Active 10 mg (10 mg total) 8 19 tabletIndications: by mouth daily. Essential For blood hypertension pressure DULoxetine (CYMBALTA) Take 1 capsule 90 capsule 3 09/15/20 Active 60 MG capsule (60 mg total) 8 19 by mouth daily. ULTRA COMFORT INSULIN USE DIRECTED 30 each 0 Active SYRINGE 1 mL 28 gauge ONCE WEEKLY 8 x 1/2" syringe cholecalciferol, Take 1 capsule 12 capsule 3 11/07/20 Active vitamin D3, 50,000 (50,000 Units 8 19 unit capsule total) by mouth once a week. ranitidine (ZANTAC) 0 Active 150 MG tablet 9 sucralfate (CARAFATE) 0 Active 1 gram tablet 9 methocarbamol Take 1 tablet 30 tablet 5 06/07/20 Active (ROBAXIN) 750 MG (750 mg total) 9 19 tablet by mouth 2 (two) times a day as needed for muscle spasms for up to 180 days. diazePAM (VALIUM) 10 1/2 - 1 tab 30 tablet 5 06/08/20 Active MG tablet nightly prn 9 19 DULoxetine (CYMBALTA) Take 1 capsule 90 capsule 1 01/06/20 Active 30 MG capsule (30 mg total) 9 20 by mouth daily. For a combined dose of 90 mg daily furosemide (LASIX) 20 TAKE 1 90 tablet 1 Active mg tabletIndications: TABLET(20 MG) 9 Fluid retention BY MOUTH DAILY NEEDED FOR SWELLING ferrous fumarate Take 1 tablet 60 each 1 Active (FERROCITE) 324 mg by mouth 2 9 (106 mg iron) tablet (two) times a day with meals. spironolactone TAKE 1 TABLET 90 tablet 0 Active (ALDACTONE) 25 MG BY MOUTH DAILY 9 tabletIndications: NEEDED(FLUID Fluid retention RETENTION-TAKE WITH LASIX) methotrexate PF 25 USE 1 CC UTD 0 Active mg/mL chemo syringe ONCE A WEEK. 9 BD REGULAR BEVEL 0 Active NEEDLES 25 gauge x 9 5/8" needle topiramate (TOPAMAX) Take 1 tablet 180 tablet 3 04/05/20 Active 100 MG tablet (100 mg total) 9 20 by mouth 2 (two) times a day. montelukast Take 1 tablet 90 tablet 3 04/05/20 Active (SINGULAIR) 10 mg (10 mg total) 9 20 tablet by mouth nightly. For allergies azaTHIOprine (IMURAN) TK 1 T PO BID 1 Active 50 mg tablet 9 HYDROcodone-acetamino Take 1 tablet 120 tablet 0 06/14/20 Active phen (NORCO) 10-325 by mouth every 9 19 mg per 6 (six) hours tabletIndications: as needed for Scleroderma (HCC), moderate pain Other chronic pain, for up to 30 Generalized abdominal days. Max Daily pain Amount: 4 tablets amphetamine-dextroamp TK ONE C PO QAM 30 capsule 0 05/14/20 Active hetamine XR (ADDERALL 9 20 XR) 20 MG 24 hr capsule insulin Use weekly as 10 each 5 Active syringe-needle U-100 directed with 9 (INSULIN SYRINGE) 1 b12 mL 29 gauge x 1/2" syringe cyanocobalamin 1,000 ADMINISTER 1 10 mL 5 Active mcg/mL injection ML(1000 MCG) 9 UNDER THE SKIN EVERY 7 DAYS ergocalciferol Take 8,000 0 09/08/20 Discontinued (DRISDOL) 8,000 Units by mouth 18 unit/mL drops daily. methotrexate 25 mg/mL INJ 1 ML ONCE A 0 06/16/20 Discontinued syringe WEEK 7 18 ergocalciferol Take 1 capsule 12 capsule 3 08/14/20 (VITAMIN D2) 50,000 (50,000 Units 7 18 unit capsule total) by mouth once a week. methotrexate PF 25 once a week. 0 06/16/20 Discontinued mg/mL chemo syringe 18 celecoxib (CeleBREX) TK 1 C PO BID 3 09/08/20 Discontinued 200 MG capsule 7 18 spironolactone Take 1 tablet 90 tablet 3 08/06/20 Discontinued (ALDACTONE) 25 MG (25 mg total) 8 18 tabletIndications: by mouth daily. Fluid retention promethazine 50 mg q 8 hours 270 tablet 1 08/06/20 Discontinued (PHENERGAN) 50 MG prn 8 18 tabletIndications: nausea/vomiting Non-intractable vomiting with nausea, unspecified vomiting type HYDROcodone-acetamino Take 1 tablet 120 tablet 0 07/14/20 Discontinued phen (NORCO) 10-325 by mouth every 8 18 mg per 6 (six) hours tabletIndications: as needed for Scleroderma (HCC), moderate pain Other chronic pain, for up to 90 Generalized abdominal days. Max Daily pain Amount: 4 tablets furosemide (LASIX) 20 Take 1 tablet 90 tablet 1 07/14/20 Discontinued mg tabletIndications: (20 mg total) 8 18 Fluid retention by mouth daily as needed (swelling). topiramate (TOPAMAX) 1/2 tablet in 135 tablet 3 08/06/20 Discontinued 100 MG the morning and 8 18 tabletIndications: 1 tablet in the Intractable chronic evening for migraine without aura headaches and without status migrainosus cholecalciferol, Take 1 capsule 12 capsule 3 07/19/20 Discontinued vitamin D3, 50,000 (50,000 Units 8 18 unit capsule total) by mouth once a week. amphetamine-dextroamp TK ONE C PO QAM 0 07/14/20 Discontinued hetamine XR (ADDERALL 8 18 XR) 20 MG 24 hr capsule amLODIPine (NORVASC) Take 1 tablet 90 tablet 1 09/08/20 Discontinued 5 mg tablet (5 mg total) by 8 18 mouth daily. For blood pressure cyanocobalamin 1,000 ADMINISTER 1 10 mL 0 05/18/20 Discontinued mcg/mL injection ML(1000 MCG) 8 19 UNDER THE SKIN EVERY 7 DAYS ULTRA COMFORT INSULIN USE DIRECTED 30 each 0 10/13/20 Discontinued SYRINGE 1 mL 28 gauge ONCE WEEKLY 8 18 x 1/2" syringe isosorbide Take 1 tablet 60 tablet 2 09/08/20 Discontinued mononitrate (10 mg total) 8 18 (ISMO,MONOKET) 10 MG by mouth 2 tablet (two) times a day. baclofen (LIORESAL) TAKE 1 90 tablet 1 08/06/20 Discontinued 10 MG tablet TABLET(10 MG) 8 18 BY MOUTH EVERY NIGHT NEEDED FOR MUSCLE SPASMS DULoxetine (CYMBALTA) Take 1 capsule 30 capsule 1 07/14/20 Discontinued 30 MG (30 mg total) 8 18 capsuleIndications: by mouth daily. Moderate episode of recurrent major depressive disorder (HCC) furosemide (LASIX) 20 Take 1 tablet 90 tablet 1 01/08/20 Discontinued mg tabletIndications: (20 mg total) 8 19 Fluid retention by mouth daily as needed (swelling). HYDROcodone-acetamino Take 1 tablet 120 tablet 0 12/10/19 Discontinued phen (NORCO) 10-325 by mouth every 8 19 mg per 6 (six) hours tabletIndications: as needed for Scleroderma (HCC), moderate pain Other chronic pain, for up to 90 Generalized abdominal days. Max Daily pain Amount: 4 tablets amphetamine-dextroamp TK ONE C PO QAM 30 capsule 0 02/08/20 Discontinued hetamine XR (ADDERALL 8 19 XR) 20 MG 24 hr capsule diazePAM (VALIUM) 5 Take 1 tablet 30 tablet 5 12/09/19 Discontinued MG tablet (5 mg total) by 8 19 mouth nightly as needed for anxiety or sleep for up to 180 days. DULoxetine (CYMBALTA) TAKE 1 90 capsule 1 09/15/20 Discontinued 30 MG CAPSULE(30 MG) 8 18 capsuleIndications: BY MOUTH DAILY Moderate episode of recurrent major depressive disorder (HCC) cholecalciferol, Take 1 capsule 12 capsule 3 09/11/20 Discontinued vitamin D3, 50,000 (50,000 Units 8 18 unit capsule total) by mouth once a week. DULoxetine (CYMBALTA) TAKE 1 30 capsule 0 09/08/20 Discontinued 30 MG CAPSULE(30 MG) 8 18 capsuleIndications: BY MOUTH DAILY Moderate episode of recurrent major depressive disorder (HCC) baclofen (LIORESAL) TAKE 1 90 tablet 0 12/09/19 Discontinued 10 MG tablet TABLET(10 MG) 8 19 BY MOUTH EVERY NIGHT NEEDED FOR MUSCLE SPASMS spironolactone TAKE 1 90 tablet 0 12/09/19 Discontinued (ALDACTONE) 25 MG TABLET(25 MG) 8 19 tabletIndications: BY MOUTH DAILY Fluid retention topiramate (TOPAMAX) TAKE 1/2 TABLET 135 tablet 0 09/08/20 Discontinued 100 MG BY MOUTH EVERY 8 18 tabletIndications: MORNING AND 1 Intractable chronic TABLET BY MOUTH migraine without aura EVERY EVENING and without status FOR HEADACHES migrainosus levoFLOXacin Take 1 tablet 10 tablet 0 08/22/20 (LEVAQUIN) 500 MG (500 mg total) 8 18 tabletIndications: by mouth daily Dental abscess for 10 days. cholecalciferol, Take 1 capsule 12 capsule 3 11/07/20 Discontinued vitamin D3, 50,000 (50,000 Units 8 18 unit capsule total) by mouth once a week. spironolactone TAKE 1 TABLET 90 tablet 0 12/09/19 Discontinued (ALDACTONE) 25 MG BY MOUTH DAILY 8 19 tabletIndications: NEEDED(FLUID Fluid retention RETENTION-TAKE WITH LASIX) doxycycline 0 02/08/20 Discontinued (VIBRAMYCIN) 100 MG 9 19 capsule diazePAM (VALIUM) 5 Take 1 tablet 30 tablet 5 12/09/19 Discontinued MG tablet (5 mg total) by 9 19 mouth nightly as needed for anxiety or sleep for up to 180 days. spironolactone TAKE 1 TABLET 90 tablet 1 03/06/20 Discontinued (ALDACTONE) 25 MG BY MOUTH DAILY 9 19 tabletIndications: NEEDED(FLUID Fluid retention RETENTION-TAKE WITH LASIX) HYDROcodone-acetamino Take 1 tablet 120 tablet 0 02/08/20 Discontinued phen (NORCO) 10-325 by mouth every 9 19 mg per 6 (six) hours tabletIndications: as needed for Scleroderma (HCC), moderate pain Other chronic pain, for up to 90 Generalized abdominal days. Max Daily pain Amount: 4 tablets methotrexate 2.5 MG Take by mouth 0 03/06/20 Discontinued tablet every 12 19 (twelve) hours for 3 (three) doses only each week. dexlansoprazole Take 1 capsule 90 capsule 1 03/09/20 (DEXILANT) 60 mg (60 mg total) 9 19 capsuleIndications: by mouth daily Gastroesophageal for 30 days. reflux disease For stomach - without esophagitis take 15-30 min before breakfast doxycycline Take 1 capsule 20 capsule 0 02/18/20 (VIBRAMYCIN) 100 MG (100 mg total) 9 19 capsule by mouth 2 (two) times a day for 10 days. HYDROcodone-acetamino Take 1 tablet 120 tablet 0 02/08/20 Discontinued phen (NORCO) 10-325 by mouth every 9 19 mg per 6 (six) hours tabletIndications: as needed for Scleroderma (HCC), moderate pain Other chronic pain, for up to 90 Generalized abdominal days. Max Daily pain Amount: 4 tablets amphetamine-dextroamp TK ONE C PO QAM 30 capsule 0 02/08/20 Discontinued hetamine XR (ADDERALL 9 19 XR) 20 MG 24 hr capsule HYDROcodone-acetamino Take 1 tablet 120 tablet 0 03/06/20 Discontinued phen (NORCO) 10-325 by mouth every 9 19 mg per 6 (six) hours tabletIndications: as needed for Scleroderma (HCC), moderate pain Other chronic pain, for up to 90 Generalized abdominal days. Max Daily pain Amount: 4 tablets amphetamine-dextroamp TK ONE C PO QAM 30 capsule 0 03/06/20 Discontinued hetamine XR (ADDERALL 9 19 XR) 20 MG 24 hr capsule amphetamine-dextroamp TK ONE C PO QAM 90 capsule 0 04/06/20 Discontinued hetamine XR (ADDERALL 9 19 XR) 20 MG 24 hr capsule HYDROcodone-acetamino Take 1 tablet 120 tablet 0 04/06/20 Discontinued phen (NORCO) 10-325 by mouth every 9 19 mg per 6 (six) hours tabletIndications: as needed for Scleroderma (HCC), moderate pain Other chronic pain, for up to 90 Generalized abdominal days. Max Daily pain Amount: 4 tablets HYDROcodone-acetamino Take 1 tablet 120 tablet 0 05/15/20 Discontinued phen (NORCO) 10-325 by mouth every 9 19 mg per 6 (six) hours tabletIndications: as needed for Scleroderma (HCC), moderate pain Other chronic pain, for up to 30 Generalized abdominal days. Max Daily pain Amount: 4 tablets amphetamine-dextroamp TK ONE C PO QAM 30 capsule 0 05/15/20 Discontinued hetamine XR (ADDERALL 9 19 XR) 20 MG 24 hr capsule oseltamivir (TAMIFLU) Take 1 capsule 10 capsule 0 04/26/20 75 MG capsule (75 mg total) 9 19 by mouth 2 (two) times a day for 5 days. 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 12/10/2018 Costochondritis 09/26/2018 Intractable vomiting with nausea 09/26/2018 [...] TPN via PICC line initiated September 2016 Cobalamin deficiency 09/15/2016 Nutritional disorder 09/15/2016 Overview: Overview: Overview: on TPN via PICC line initiated September 2016 History of biliary T-tube placement 09/15/2016 Adjustment disorder with mixed anxiety and depressed mood 08/20/2016 ADD (attention deficit disorder) 08/20/2016 Bradycardia 08/20/2016 Attention deficit disorder 08/20/2016 Bronchitis, acute 05/25/2016 Scleroderma 05/25/2016 Sinusitis 05/25/2016 Chronic pain 05/25/2016 Contact dermatitis 05/25/2016 Acute bronchitis 05/25/2016 Encounters Date Type Specialty Care Team Description 05/18/2019 Orders Only Internal Higinio Luis MD 05/15/2019 Office Visit Internal Higinio Luis Chronic pain syndrome (Primary Dx); MD Tamir Dysuria; Vitamin D deficiency; Vitamin B12 deficiency; Other fatigue; B12 deficiency; Rectal bleeding; Stomach pain; Scleroderma (HCC); Other chronic pain; Generalized abdominal pain 04/21/2019 Orders Only Internal Medicine Higinio Meza MD 04/06/2019 Office Visit Internal Medicine Higinio Meza Scleroderma ([facility]) ( Primary Dx); MD Tamir intermediate use of drug; Costochondritis; Status post total gastrectomy and Maggi-en-Y esophagojejunal anastomosis ; B12 deficiency; Attention deficit disorder (ADD) without hyperactivity; Iron deficiency anemia due to chronic blood loss; Other chronic pain; Generalized abdominal pain; Environmental allergies; Chronic nonintractable headache, unspecified headache type 03/06/2019 Office Visit Internal Medicine Higinio Meza Scleroderma ([facility]) ( Primary Dx); MD Tamir Chest pain, atypical; Attention deficit disorder, unspecified hyperactivity presence; Adjustment disorder with mixed anxiety and depressed mood; Primary insomnia; Other chronic pain; Generalized abdominal pain 02/22/2019 Refill Internal Medicine Higinio Meza MD 02/17/2019 Telephone Internal Higinio Luis MD 02/07/2019 Office Visit Internal Higinio Luis Gastroesophageal reflux disease without esophagitis (Primary Dx); MD Tamir Scleroderma ([facility]); Other chronic pain; Generalized abdominal pain; Acute pain of right shoulder 01/21/2019 Refill Internal Higinio Luis MD 01/09/2019 Orders Only Internal Higinio Luis MD 01/07/2019 Refill Internal Higinio Luis MD 01/06/2019 Office Visit Internal Higinio Luis Vitamin D deficiency (Primary Dx); MD Tamir Iron deficiency anemia due to chronic blood loss; Scleroderma ([facility]); S/P PICC central line placement; Nausea; 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; Adjustment disorder with mixed anxiety and depressed mood 12/09/2018 Office Visit Internal Medicine Higinio Meza Hospital discharge follow-up (Primary Dx); MD Tamir Chronic nonintractable headache, unspecified headache type; Seizure (HCC); Black-out (not amnesia); Fluid retention; Scleroderma (HCC); Chronic pain syndrome; Other chronic pain; Generalized abdominal pain; intermediate use of drug 11/28/2018 Telephone Internal Medicine Higinio Meza MD 11/09/2018 Telephone Internal Medicine Higinio Meza MD 11/07/2018 Orders Only Internal Medicine Higinio Meza MD 11/03/2018 Office Visit Internal [facility] Higinio Meza Hospital discharge follow-up (Primary Dx); MD Tamir Gastrointestinal hemorrhage, unspecified gastrointestinal hemorrhage type; Closed displaced fracture of fifth metatarsal bone of right foot, sequela; Scleroderma (HCC); Weight loss; Muscular deconditioning; Iron deficiency anemia due to chronic blood loss; Chronic pain syndrome; Vitamin D deficiency; Vitamin B12 deficiency 10/24/2018 Telephone Internal Medicine Higinio Meza MD 10/13/2018 Refill Internal Medicine Higinio Meza Fluid retention MD Tamir 09/26/2018 Orders Only Internal Medicine Higinio Meza Intractable vomiting with nausea, unspecified vomiting type (Primary Dx); MD Tamir Scleroderma (HCC); Chronic pain syndrome; Generalized abdominal pain; Chest pain, atypical; Costochondritis 09/15/2018 Orders Only Internal Higinio Luis MD 09/11/2018 Orders Only Internal Higinio Luis MD 09/08/2018 Office Visit Internal Medicine Higinio [...] Higinio Meza MD 07/19/2018 Orders Only Internal Medicine Higinio Meza MD 07/14/2018 Office Visit Internal Medicine Higinio Meza Bloating (Primary Dx); MD Tamir Vitamin D deficiency; Elevated liver enzymes; Attention deficit disorder (ADD) without hyperactivity; Moderate episode of recurrent major depressive disorder; Fluid retention; Scleroderma; Other chronic pain; Generalized abdominal pain; On residential drug therapy; Food intolerance; Iron deficiency anemia [...] 05/25/2018 Telephone Internal Medicine Adelia Garland MA after 05/23/2018 Immunizations Name Dates Previously Given Next Due [...] Vital Sign Reading Time Taken Blood Pressure 110/69 05/15/2019 2:47 PM CDT Pulse 77 05/15/2019 2:47 PM CDT Temperature 36.7 C (98 F) 02/07/2019 2:20 PM CDT Respiratory Rate 20 05/15/2019 2:47 PM CDT Oxygen Saturation 100% 05/15/2019 2:47 PM CDT Inhaled Oxygen Concentration - - Weight 93.4 kg (206 lb) 05/15/2019 2:47 PM CDT Height 167.6 cm (5' 6") 05/15/2019 2:47 PM CDT Body Mass Index 33.25 05/15/2019 2:47 PM CDT Plan of Treatment Date Type Specialty Care Team Description 06/12/2019 Office Visit [place] [address] [place] [address] [phone] Health Maintenance Due Date Last Done Comments INFLUENZA VACCINE 06/08/2019 08/20/2016 Procedures Procedure Name Priority Date/Time Associated Diagnosis Comments LIPASE LEVEL Routine 05/15/2019 3:26 Stomach pain Results for this PM CDT procedure are in the results section. AMYLASE LEVEL Routine 05/15/2019 3:26 Stomach pain Results for this PM CDT procedure are in the results section. VITAMIN D 25 HYDROXY Routine 05/15/2019 3:26 Vitamin D deficiency Results for this LEVEL PM CDT procedure are in the results section. VITAMIN B12 LEVEL Routine 05/15/2019 3:26 Vitamin B12 deficiency Results for this PM CDT B12 deficiency procedure are in the results section. THYROID STIMULATING Routine 05/15/2019 3:26 Rectal bleeding Results for this HORMONE PM CDT procedure are in the results section. MAGNESIUM, RBC Routine 05/15/2019 3:26 Chronic pain syndrome Results for this PM CDT procedure are in the results section. COMPREHENSIVE Routine 05/15/2019 3:26 Other fatigue Results for this METABOLIC PANEL PM CDT Chronic pain syndrome procedure are in the results section. CRP HIGH SENSITIVITY Routine 05/15/2019 3:26 Other fatigue Results for this PM CDT Chronic pain syndrome procedure are in the results section. 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 FERRITIN LEVEL Routine 04/06/2019 1:56 intermediate use of drug Results for this PM CDT Iron deficiency anemia procedure are in due to chronic blood the results loss section. 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 Maggi-en-Y esophagojejunal anastomosis Attention deficit disorder (ADD) without hyperactivity Iron deficiency anemia due to chronic blood loss MAGNESIUM LEVEL Routine 01/06/2019 2:09 Iron deficiency anemia Results for this PM LEARNING COORDINATOR due to chronic blood procedure are in loss the results Nausea section. 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 COMPREHENSIVE Routine 01/06/2019 2:09 Iron deficiency anemia Results for this METABOLIC PANEL PM LEARNING COORDINATOR due to chronic blood procedure are in loss the results Nausea section. intermediate use of drug FERRITIN LEVEL Routine 01/06/2019 2:09 Iron deficiency anemia Results for this PM LEARNING COORDINATOR due to chronic blood procedure are in loss the results section. CBC WITH PLATELET AND Routine 01/06/2019 2:09 Iron deficiency anemia Results for this DIFFERENTIAL PM LEARNING COORDINATOR due to chronic blood procedure are in loss the results Scleroderma (HCC) section. Nausea intermediate use of drug VITAMIN D 25 HYDROXY Routine 11/03/2018 10:24 Hospital discharge Results for this LEVEL AM LEARNING COORDINATOR follow-up procedure are in Gastrointestinal the results hemorrhage, unspecified section. gastrointestinal hemorrhage type Vitamin D deficiency VITAMIN B12 LEVEL Routine 11/03/2018 10:24 Hospital discharge Results for this AM LEARNING COORDINATOR follow-up procedure are in Vitamin B12 deficiency the results section. FERRITIN LEVEL Routine 11/03/2018 10:24 Hospital discharge Results for this AM LEARNING COORDINATOR follow-up procedure are in Iron deficiency anemia the results due to chronic blood section. loss COMPREHENSIVE Routine 11/03/2018 10:24 Hospital discharge Results for this METABOLIC PANEL AM LEARNING COORDINATOR follow-up procedure are in Weight loss the results section. CBC WITH PLATELET AND Routine 11/03/2018 10:24 Hospital discharge Results for this DIFFERENTIAL AM LEARNING COORDINATOR follow-up procedure are in Gastrointestinal the results hemorrhage, unspecified section. gastrointestinal hemorrhage type Iron deficiency anemia due to chronic blood loss URINALYSIS, COMPLETE, Routine 09/08/2018 2:11 Results for this WITH REFLEX TO PM CDT procedure are in CULTURE the results section. VITAMIN D 25 HYDROXY Routine 09/08/2018 2:11 Occasional tremors Results for this LEVEL PM CDT Essential hypertension procedure are in Vitamin D deficiency the results section. VITAMIN B12 LEVEL Routine 09/08/2018 2:11 Occasional tremors Results for this PM CDT Essential hypertension procedure are in B12 deficiency the results section. CRP HIGH SENSITIVITY Routine 09/08/2018 2:11 Occasional tremors Results for this PM CDT Essential hypertension procedure are in the results section. MAGNESIUM, RBC Routine 09/08/2018 2:11 Occasional tremors Results for this PM CDT Essential hypertension procedure are in the results section. CREATINE KINASE, Routine 09/08/2018 2:11 Occasional tremors Results for this TOTAL (CPK) PM CDT Essential hypertension procedure are in Myalgia the results section. COMPREHENSIVE Routine 09/08/2018 2:11 Occasional tremors Results for this METABOLIC PANEL PM CDT Essential hypertension procedure are in the results section. FERRITIN LEVEL Routine 09/08/2018 2:11 Occasional tremors Results for this PM CDT Essential hypertension procedure are in Other iron deficiency the results anemia section. CBC WITH PLATELET AND Routine 09/08/2018 2:11 Occasional tremors Results for this DIFFERENTIAL PM CDT Seizure-like activity procedure are in (HCC) the results Essential hypertension section. Other iron deficiency anemia FERRITIN LEVEL Routine 07/14/2018 3:51 Results for this PM CDT procedure are in the results section. CELIAC DISEASE PANEL Routine 07/14/2018 3:51 Generalized abdominal Results for this PM CDT pain procedure are in On residential drug the results therapy section. Food intolerance FOOD ALLERGY PANEL Routine 07/14/2018 3:51 Bloating Results for this PM CDT Generalized abdominal procedure are in pain the results On residential drug section. therapy Food intolerance LIPASE LEVEL Routine 07/14/2018 3:51 Bloating Results for this PM CDT Other chronic pain procedure are in Generalized abdominal the results pain section. 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 therapy SEDIMENTATION RATE Routine 07/14/2018 3:51 Bloating Results for this PM CDT On residential drug procedure are in therapy the results section. 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 MAGNESIUM LEVEL Routine 07/14/2018 3:51 Bloating Results for this PM CDT On residential drug procedure are in therapy the results section. INSULIN, RANDOM Routine 07/14/2018 3:51 Bloating Results for this PM CDT On residential drug procedure are in therapy the results section. 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 Fluid retention On terminal make up operator drug therapy VITAMIN D 25 HYDROXY Routine 07/14/2018 3:51 Bloating Results for this LEVEL PM CDT Vitamin D deficiency procedure are in On terminal make up operator drug the results therapy section. COMPREHENSIVE Routine 07/14/2018 3:51 Bloating Results for this METABOLIC PANEL PM CDT Elevated liver enzymes procedure are in Fluid retention the results On residential drug section. therapy CBC WITH PLATELET AND Routine 07/14/2018 3:51 Bloating Results for this DIFFERENTIAL PM CDT Generalized abdominal procedure are in pain the results On terminal make up operator drug section. therapy after 05/23/2018 Results Vitamin D 25 hydroxy level (05/15/2019 3:26 PM CDT)Only the most recent of4 resultswithin the time period is included. Vitamin D, 18 (L) 30 - 100 Clip 25-hydroxy Comment: ng/mL [place] Vitamin D Status 25-OH Vitamin D: Deficiency:<20 ng/mL Insufficiency: 20 - 29 ng/mL Optimal: > or=30 ng/mL For 25-OH Vitamin D testing on patients on D2-supplementation and patients for whom quantitation of D2 and D3 fractions is required, the QuestAssureD(TM) 25-OH VIT D, (D2,D3), LC/MS/MS is recommended: order code 76434 (patients >2yrs). For more information on this test, go to: http://[email or web address]/faq/FRK025 (This link is being provided for informational/educational purposes only.) Specimen Blood Narrative Performed At FASTING:YES [facility] COLLECTION KIT GIVEN TO PATIENT. PATIENT ADVISED TO RETURN. FASTING: YES Resulting Agency Comment Performing Organization Information: Site ID: [id number] Name: [facility] Address: [address] [place] [phone] Director: Marcy Maher Performing Organization Address City/State/Zipcode Phone Number [facility] [address] [address] CRP high sensitivity (05/15/2019 3:26 PM CDT)Only the most recent of3 resultswithin the time period is included. CRP, high 5.0 (H) mg/L [facility] sensitivity Comment: [employer]-IR Reference Range NG II Optimal <1.0 Daya PS et al. Endocr Pract.2017;23(Suppl 2):1-87. For ages >17 Years: hs-CRP mg/LRisk According to AHA/CDC Guidelines <1.0 Lower relative cardiovascular risk. 1.0-3.0Average relative cardiovascular risk. 3.1-10.0 Higher relative cardiovascular risk. Consider retesting in 1 to 2 weeks to exclude a benign transient elevation in the baseline CRP value secondary to infection or inflammation. >10.0Persistent elevation, upon retesting, may be associated with infection and inflammation. Specimen Blood Narrative Performed At FASTING:YES [facility] COLLECTION KIT GIVEN TO PATIENT. PATIENT ADVISED TO RETURN. FASTING: YES Resulting Agency Comment Performing Organization Information: Site ID: [id number] [facility]: [facility] Address: [address] [place] [phone] Director: Dr. Krunal Pettit Performing Organization Address City/State/Zipcode Phone Number [facility] [address] Thyroid stimulating hormone (05/15/2019 3:26 PM CDT)Only the most recent of2 resultswithin the time period is included. Pathologist [facility] TSH 0.73 mIU/L Clip Comment: [place] Reference Range > or=20 Years0.40-4.50 Ranges First trimester0.26-2.66 Second trimester 0.55-2.73 Third trimester0.43-2.91 Specimen Blood Narrative Performed At FASTING:YES [facility] COLLECTION KIT GIVEN TO PATIENT. PATIENT ADVISED TO RETURN. FASTING: YES Resulting Agency Comment Performing Organization Information: Site ID: RGA Name: [facility] Address: [address] [place] [address] Director: Marcy Maher Performing Organization Address City/State/Zipcode Phone Number [facility] [address] [address] Magnesium, RBC (05/15/2019 3:26 PM CDT)Only the most recent of2 resultswithin the time period is included. Pathologist [facility] Magnesium RBC 4.0 4.0 - 6.4 [facility] Comment: mg/dL [facility] This test was developed and its analytical performance characteristics have been determined by [facility]. It has not been cleared or approved by the US Food and Drug Administration. This assay has been validated pursuant to the CLIA regulations and is used for clinical purposes. Specimen Blood Narrative Performed At FASTING:YES [facility] COLLECTION KIT GIVEN TO PATIENT. PATIENT ADVISED TO RETURN. FASTING: YES Resulting Agency Comment Performing Organization Information: Site ID: [id number] [facility]: [facility] Address: [address] [place] [phone] Director: Beto Martin M.D., Ph.D Performing Organization Address City/[facility] [place] [facility] Centercode Phone Number [facility] Clip [address] [address] [phone] Lipase level (05/15/2019 3:26 PM CDT)Only the most recent of2 resultswithin the time period is included. Pathologist [facility] Lipase 14 7 - 60 U/L [facility] Specimen Blood Narrative Performed At FASTING:YES [facility] COLLECTION KIT GIVEN TO PATIENT. PATIENT ADVISED TO RETURN. FASTING: YES Resulting Agency Comment Performing Organization Information: Site ID: RGA Name: [facility] Address: [address] [place] [phone] Director: Marcy Maher Performing Organization Address City/[facility]/[place] Rehabilitation Centercode [place] [address] Vitamin B12 level (05/15/2019 3:26 PM CDT)Only the most recent of4 resultswithin the time period is included. Pathologist [facility] Vitamin B12 264 200 - 1,100 Clip Comment: pg/mL [place] Please Note: Although the reference range for vitamin B12 is 200-1100 pg/mL, it has been reported that between 5 and 10% of patients with values between 200 and 400 pg/mL may experience neuropsychiatric and hematologic abnormalities due to occult B12 deficiency; less than 1% of patients with values above 400 pg/mL will have symptoms. Specimen Blood Narrative Performed At FASTING:YES [facility] COLLECTION KIT GIVEN TO PATIENT. PATIENT ADVISED TO RETURN. FASTING: YES Resulting Agency Comment Performing Organization Information: Site ID: [id number] Name: [facility] Address: [address] [place] [phone] Director: Marcy Maher Performing Organization Address [facility]/[place] [facility] Centercode [place] [address] Amylase level (05/15/2019 3:26 PM CDT)Only the most recent of2 resultswithin the time period is included. Amylase 23 21 - 101 U/L Clip [place] Specimen Blood Narrative Performed At FASTING:YES [facility] COLLECTION KIT GIVEN TO PATIENT. PATIENT ADVISED TO RETURN. FASTING: YES Resulting Agency Comment Performing Organization Information: Site ID: EARL Name: [facility] Address: [address] [place] [phone] Director: aMrcy Maher Performing Organization Address [facility] [place] [facility] Centercomt [place] [address] Comprehensive metabolic panel (05/15/2019 3:26 PM CDT)Only the most recent of6 resultswithin the time period is included. Glucose 90 65 - 99 [facility] Comment: mg/dL [place] Fasting reference interval BUN, whole blood 9 7 - 25 mg/dL [facility] [place] Creatinine 0.70 0.50 - 1.10 [facility] mg/dL [place] EGFR Non-Afr. 106 > OR=60 [facility] Micronesian mL/min/1.73m [place] 2 EGFR 123 > OR=60 [facility] Micronesian mL/min/1.73m [place] 2 BUN/creatinine NOT APPLICABLE 6 - 22 [facility] ratio (calc) [place] Sodium 141 135 - 146 [facility] mmol/L [place] Potassium 3.5 3.5 - 5.3 [facility] mmol/L [place] Chloride 110 98 - 110 [facility] mmol/L [place] CO2 24 20 - 32 [facility] mmol/L [place] Calcium 8.8 8.6 - 10.2 [facility] mg/dL [place] Protein 6.9 6.1 - 8.1 [facility] g/dL [place] Albumin, S 3.8 3.6 - 5.1 [facility] g/dL [place] Globulin, total 3.1 1.9 - 3.7 [facility] g/dL (calc) [place] Albumin/globulin 1.2 1.0 - 2.5 [facility] ratio (calc) [place] Total bilirubin 0.3 0.2 - 1.2 [facility] mg/dL [place] Alkaline 157 (H) 33 - 115 U/L [facility] phosphatase [place] AST 20 10 - 30 U/L [facility] [place] ALT 21 6 - 29 U/L [facility] [place] Specimen Blood Narrative Performed At FASTING:YES [facility] COLLECTION KIT GIVEN TO PATIENT. PATIENT ADVISED TO RETURN. FASTING: YES Resulting Agency Comment Performing Organization Information: Site ID: [facility] Name: [facility] Address: [address] [place] [phone] Director: Marcy Maher Performing Organization Address City/[facility]/[place] [facility] Centercomt Phone Number [facility] [place] [phone] Total iron binding capacity (04/06/2019 1:56 PM CDT)Only the most recent of2 resultswithin the time period is included. Pathologist [facility] Iron level 58 40 - 190 mcg/dL Clip [place] Iron binding capacity 396 250 - 450 mcg/dL Clip (calc) [place] Iron saturation 15 11 - 50 % (calc) Clip [place] Specimen Blood Narrative Performed At FASTING:YES [facility] FASTING: YES Resulting Agency Comment Performing Organization Information: Site ID: A Name: [facility] Address: [address] [place] [phone] Director: Marcy Maher Performing Organization Address [facility]/[place] [facility] Centercomt [place] [address] CBC with platelet and differential (04/06/2019 1:56 PM CDT)Only the most recent of5 resultswithin the time period is included. Pathologist [facility] WBC 4.5 3.8 - 10.8 [facility] Thousand/uL [place] RBC 4.06 3.80 - 5.10 [facility] Million/uL [place] HGB 11.4 (L) 11.7 - 15.5 [facility] g/dL [place] HCT 34.6 (L) 35.0 - 45.0 % [facility] [place] MCV 85.2 80.0 - 100.0 fL Clip [place] MCH 28.1 27.0 - 33.0 pg Clip [place] MCHC 32.9 32.0 - 36.0 [facility] g/dL [place] RDW 15.6 (H) 11.0 - 15.0 % Clip [place] Platelet count 279 140 - 400 [facility] Thousand/uL [place] MPV 10.4 7.5 - 12.5 fL Clip [place] Neutrophils, absolute 2,619 1,500 - 7,800 [facility] cells/uL [place] Lymphocytes, absolute 1,242 850 - 3,900 [facility] cells/uL [place] Monocytes, absolute 401 200 - 950 [facility] cells/uL [place] Eosinophils, absolute 230 15 - 500 [facility] cells/uL [place] Basophils, absolute 9 0 - 200 [facility] cells/uL [place] Neutrophils 58.2 % Clip [place] Lymphocytes 27.6 % Clip [place] Monocytes 8.9 % Clip [place] Eosinophils 5.1 % Clip [place] Basophils + RC 0.2 % Clip [place] Specimen Blood Narrative Performed At FASTING:YES [facility] FASTING: YES Resulting Agency Comment Performing Organization Information: Site ID: [id number] Name: [facility] Address: [address] [place] [phone] Director: Marcy Maher Performing Organization Address City/State/Zipcode [place] [address] Ferritin level (04/06/2019 1:56 PM CDT)Only the most recent of5 resultswithin the time period is included. Ferritin level 8 (L) 10 - 232 ng/mL Clip [place] Specimen Blood Narrative Performed At FASTING:YES [facility] FASTING: YES Resulting Agency Comment Performing Organization Information: Site ID: RGA Name: [facility] Address: [address] [place] [phone] Director: Marcy Maher Performing Organization Address City/[facility]/Zipcode [place] [address] Magnesium level (01/06/2019 2:09 PM LEARNING COORDINATOR)Only the most recent of2 resultswithin the time period is included. Magnesium 1.9 1.5 - 2.5 mg/dL Clip [place] Specimen Blood Resulting Agency Comment Performing Organization Information: Site ID: RGA Name: [facility] Address: [address] [place] [phone] Director: Marcy Maher Performing Organization Address City/[facility]/[place] [facility] Centercode Phone Number [facility] [place] [address] [place] [phone] URINALYSIS, COMPLETE, WITH REFLEX TO CULTURE (09/08/2018 2:11 PM CDT) Color, UA YELLOW YELLOW [facility] [place] Appearance CLEAR CLEAR [facility] [place] Specific gravity, 1.009 1.001 - 1.035 [facility] urine [place] pH, urine 6.0 5.0 - 8.0 [facility] [place] Glucose, urine NEGATIVE NEGATIVE [facility] [place] Bilirubin, UA NEGATIVE NEGATIVE [facility] [place] Ketones, UA NEGATIVE NEGATIVE [facility] [place] Occult blood, NEGATIVE NEGATIVE [facility] urine [place] Protein, UA NEGATIVE NEGATIVE [facility] [place] Nitrite, UA NEGATIVE NEGATIVE [facility] [place] Leukocyte NEGATIVE NEGATIVE [facility] esterase, UA [place] WBC, UA NONE SEEN < OR=5 /HPF [facility] [place] RBC, UA NONE SEEN < OR=2 /HPF [facility] [place] Squamous NONE SEEN < OR=5 /HPF [facility] epithelial cells, [place] UA Bacteria, UA NONE SEEN NONE SEEN /HPF [facility] [place] Hyaline casts, UA NONE SEEN NONE SEEN /LPF [facility] [place] Reflex NO CULTURE [facility] INDICATED [place] Specimen Narrative Performed At FASTING:UNKNOWN [facility] FASTING: UNKNOWN Resulting Agency Comment Performing Organization Information: Site ID: RGA Name: [facility] Address: [address] [place] [phone] Director: Marcy Maher Performing Organization Address [facility]/[place] [facility] Centercode Phone Number [facility] [place] [address] [place] [address] Creatine kinase, total (CPK) (09/08/2018 2:11 PM CDT) Creatine kinase 48 29 - 143 U/L Clip [place] Specimen Blood Narrative Performed At FASTING:UNKNOWN [facility] FASTING: UNKNOWN Resulting Agency Comment Performing Organization Information: Site ID: RGA Name: [facility] Address: [address] [place] [phone] Director: Marcy Maher Performing Organization Address City/[facility]/Zipcode Phone Number [facility] [address] [address] Food allergy panel (07/14/2018 3:51 PM CDT) Pathologist [facility] Egg white IgE <0.10 kU/L [facility] NG II Egg white class 0 [facility] NG II Peanut IgE <0.10 kU/L [facility] NG II Peanut class 0 [facility] NG II Wheat IgE <0.10 kU/L [facility] NG II Wheat class 0 [facility] NG II [place] <0.10 kU/L [facility] NG II Walnuts class 0 [facility] NG II Codfish IgE <0.10 kU/L [facility] NG II Codfish class 0 [facility] NG II Milk IgE <0.10 kU/L [facility] NG II Milk class 0 [facility] NG II Soybean IgE <0.10 kU/L [facility] NG II Soybean class 0 [facility] NG II [place] <0.10 kU/L [facility] NG II [place] class 0 [facility] NG II Shrimp IgE 0.41 (H) kU/L [facility] NG II Shrimp class 1 [facility] NG II Scallop IgE <0.10 kU/L [facility] NG II Scallop class 0 [facility] NG II Clams <0.10 kU/L [facility] NG II Clams class 0 [facility] NG II Sesame Seed IgE <0.10 kU/L [facility] NG II Sesame seed class 0 [facility] NG II Interpretation [facility] Comment: [facility] NG II SpecificLevel of Allergen IGE ClasskU/L Specific [...] analytical performance characteristics have been determined by [employer]. It has not been cleared or approved by the U.S. Food and Drug Administration. This assay has been validated pursuant to the CLIA regulations and is used for clinical purposes. Specimen Narrative Performed At FASTING:YES [facility] COLLECTION REQUIREMENTS NOT MET. PATIENT ADVISED TO RETURN. FASTING: YES Resulting Agency Comment Performing Organization Information: Site ID: [id number] Name: [facility] Address: [address] [place] [phone] Director: Dr. Krunal Pettit Performing Organization Address City/[facility]/[place] [facility] Centercode Phone Number [facility] Clip[address] [place] [address] Celiac disease panel (07/14/2018 3:51 PM CDT) Interpretation SEE NOTE [facility] Comment: [facility]NOSTICS/[facility] No serological evidence of celiac disease. [facility] tTG IgA may normalize in individuals with celiac disease who maintain a gluten-free diet. Consider HLA DQ2 and DQ8 testing to rule out celiac disease. Celiac disease is extremely rare in the absence of DQ2 or DQ8. Tissue transglutaminase <1 U/mL [facility], IgA Comment: DIAGNOSTICS/[facility] <4 No Antibody Detected > OR=4 Antibody Detected IgA 260 81 - 463 [facility] mg/dL [facility]AGNOSTICS/[facility] Specimen Blood Narrative Performed At FASTING:YES [facility] COLLECTION REQUIREMENTS NOT MET. PATIENT ADVISED TO RETURN. FASTING: YES Resulting Agency Comment Performing Organization Information: Site ID: EZ Name: [employer]/[facility], Address: [address] [place] [phone] Director: Erin Ching MD,PhD,ARCENIO Performing Organization Address City/State/Zipcode Phone Number [facility] [address] [place] [address] [facility] Insulin, random (07/14/2018 3:51 PM CDT) Insulin 40.6 (H) 2.0 - 19.6 [facility] Comment: uIU/mL [facility] This insulin assay shows strong cross-reactivity for II some insulin analogs (lispro, aspart, and glargine) and much lower cross-reactivity with others (detemir, glulisine). Specimen Blood Narrative Performed At FASTING:YES [facility] COLLECTION REQUIREMENTS NOT MET. PATIENT ADVISED TO RETURN. FASTING: YES Resulting Agency Comment Performing Organization Information: Site ID: IG Name: [facility] Address: [address] [place] [phone] Director: Dr. Krunal Pettit Performing Organization Address City/State/[place] [facility] Centercode Phone Number [facility] II [address] [place] [address] Sedimentation rate (07/14/2018 3:51 PM CDT) Sedimentation rate 19 < OR=20 mm/h Clip [place] Specimen Blood Narrative Performed At FASTING:YES [facility] COLLECTION REQUIREMENTS NOT MET. PATIENT ADVISED TO RETURN. FASTING: YES Resulting Agency Comment Performing Organization Information: Site ID: RGA Name: [facility] Address: [address] [place] [phone] Director: Marcy Maher Performing Organization Address [facility]/[place] [facility] Centercode Phone Number [facility] [address] [address] after 05/23/2018 (Home) [place], [place] [phone] [address] (Work) Advance Directives Patient has advance care planning documents on file. For more information, please contact:[place] [address]
--- OUTSIDE RECORDS SUMMARY | 2019-05-24 20:25 | XMS REPORT ---
:1975 Author Organization [facility] Address [address] [place] [address] Dr. Snider [address] [place] [address] Care Team Providers Name Role Phone Unavailable Unavailable Unavailable Problems This patient has no known problems. Allergies, Adverse Reactions, Alerts This patient has no known allergies or adverse reactions. Medications This patient has no known medications.
[2019-05-24 21:47] LABS: Urine Bacteria <20 /HPF (<20); Urine Culture Reflex Order NOT NEEDED; Urine RBC <5 /HPF (NONE SEEN)
[2019-05-24 22:10] LABS: Absolute Lymphocytes (CBC) 1.4 K/uL (0.7-4.9); Basophils % 0.6 % (0-1.3); Eosinophils % 4.5 % (0-4.4); Hematocrit 38.2 % (36.0-45.0); Lymphocytes % 21.4 % (15.3-44.8); RBC Red Blood Cell Count 4.29 M/uL (3.86-4.86)
[2019-05-24] MEDS ORDERED: SUCRALFATE 1 GM TABLET ONE (22:21)
[2019-05-24] MEDS ORDERED: PROMETHAZINE 25 MG/ML VIAL ONE (22:21)
[2019-05-24] MEDS ORDERED: FOLIC ACID 5 MG/ML VIAL ONE (22:22)
[2019-05-24] MEDS ORDERED: NA CHLORIDE 0.9% 50 ML IV ONE (22:22)
[2019-05-24 22:33] LABS: Blood Morphology Comment NOTED (NOT SEEN); Platelet Estimate ADEQ; Urine White Blood Cell Casts OK
[2019-05-24 22:34] LABS: Anisocytosis 1+; Ovalocytes 1+
[2019-05-24 22:50] LABS: ALT/SGPT 129 U/L (12-78); AST/SGOT 80 U/L (15-37); Albumin 3.4 g/dL (3.4-5.0); Alkaline Phosphatase 282 U/L (45-117); BUN Blood Urea Nitrogen 8 mg/dL (7-18); Bicarbonate 22 mmol/L (21-32); Bilirubin Direct 0.1 mg/dL (0-0.2); Bilirubin Total 0.2 mg/dL (0.2-1.0); Glucose Level 77 mg/dL (74-106); Magnesium 2.1 mg/dL (1.8-2.4); Potassium 3.3 mmol/L (3.5-5.1); Protein, Total 7.5 g/dL (6.4-8.2); Sodium Level 141 mmol/L (136-145)
[2019-05-25] MEDS ORDERED: NA CHLORIDE 0.9% 1,000 ML ONE (00:48)
[2019-05-25] MEDS ORDERED: HYDROCODONE/APAP 7.5/325 MG TAB ONE (00:52)
--- NOTE | 2019-05-25 01:37 | ER ---
Nurse's Notes [facility] Name: Liza Dexter Age: 43 yrs Sex: Female : 1975 Arrival Date: 05/24/2019 Time: 20:24 Bed 14 Private MD: Diagnosis: Dehydration;Acute laryngopharyngitis Presentation: 05/24 20:34 Presenting complaint: Patient states: Sore throat and vomiting for 4 days with aj hoarseness of voice. Transition of care: patient was not received from another setting of care. Onset of symptoms was May 20, 2019. Risk Assessment: Do you want to hurt yourself or someone else? Patient reports no desire to harm self or others. Initial Sepsis Screen: Does the patient meet any 2 criteria? No. Patient's initial sepsis screen is negative. Does the patient have a suspected source of infection? No. Patient's initial sepsis screen is negative. Care prior to arrival: None. 20:34 Method Of Arrival: Ambulatory aj 20:34 Acuity: JUAN 3 aj Triage Assessment: 20:36 General: Appears in no apparent distress. comfortable, Behavior is calm, cooperative, aj appropriate for age. Pain: Complains of pain in right upper quadrant, left upper quadrant, uvula, left aspect of posterior pharynx and right aspect of posterior pharynx. Neuro: Level of Consciousness is awake, alert, obeys commands, Oriented to person, place, time, situation, Appropriate for age. Respiratory: Airway is patent Respiratory effort is even, unlabored, Respiratory pattern is regular, symmetrical. GI: Reports upper abdominal pain, nausea, vomiting. Derm: Skin is intact, is healthy with good turgor, Skin is pink, warm \T\ dry. normal. 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 aj Historical: - Allergies: 20:36 ambien; aj 20:36 CEPHALOSPORINS; aj 20:36 Codeine; aj 20:36 Demerol; aj 20:36 Morphine; aj 20:36 Nexium; aj 20:36 Sulfa (Sulfonamide Antibiotics); aj 20:36 Zofran; aj - Home Meds: 20:36 Adderall XR 20 mg Oral cp24 1 cap once daily [Active]; amlodipine 5 mg tab 1 tab once aj daily [Active]; diazepam 10 mg Oral tab as needed [Active]; Flomax Oral [Active]; furosemide 20 mg Oral tab 1 tab once daily [Active]; hydrocodone-acetaminophen 10-500 mg Oral tab as needed [Active]; Lasix Oral [Active]; Lexapro Oral [Active]; methotrexate sodium injection once wkly [Active]; [place] 10-325 mg Oral tab as needed [Active]; Phenergan Oral 50 mg as needed [Active]; spironolactone 25 mg Oral tab 1 tab once daily [Active]; Topamax 200 mg Oral tab 1 tab 2 times per day [Active]; Valium Oral [Active]; vitamin b12 WEEKLY [Active]; vitamin b12 injection WEEKLY [Active]; Wellbutrin 150mg Oral tab daily [Active]; - PMHx: 20:36 Anemia; chron's; Colitis; Raynaud's syndrome; Scleroderma; Seizures; aj - PSHx: 20:36 Stomach Surgery; Esophagus Surgery; Hernia repair; aj - Immunization history:: Adult Immunizations up to date. - Social history:: Smoking status: Patient/guardian denies using tobacco. - Ebola Screening: : Patient negative for fever greater than or equal to 101.5 degrees Fahrenheit, and additional compatible Ebola Virus Disease symptoms Patient denies exposure to infectious person Patient denies travel to an Ebola-affected area in the 21 days before illness onset No symptoms or risks identified at this time. Screenin:36 Abuse screen: Denies threats or abuse. Denies injuries from another. Nutritional mg2 screening: No deficits noted. Tuberculosis screening: No symptoms or risk factors identified. Fall Risk None identified. Assessment: 21:34 General: Appears in no apparent distress. comfortable, Behavior is calm, cooperative. mg2 Pain: Complains of pain in abdomen and left upper quadrant and right upper quadrant Pain does not radiate. Quality of pain is described as aching, Pain began gradually, Is intermittent. Neuro: Level of Consciousness is awake, alert, obeys commands, Oriented to person, place, time, situation. Cardiovascular: Capillary refill < 3 seconds Patient's skin is warm and dry. Respiratory: Airway is patent Respiratory effort is even, unlabored, Respiratory pattern is regular, symmetrical. GI: Reports upper abdominal pain, vomiting. : No signs and/or symptoms were reported regarding the genitourinary system. EENT: Reports sore throat. Derm: Skin is intact, is healthy with good turgor, Skin is pink, warm \T\ dry. normal. Musculoskeletal: Circulation, motion, and sensation intact. Capillary refill < 3 seconds. 05/25 01:48 Reassessment: Patient appears in no apparent distress at this time. Patient denies pain mg2 at this time. Patient states feeling better. Patient states symptoms have improved. Vital Signs: 05/24 20:36 BP 89 / 76; Pulse 96; Resp 16; Temp 98.0; Pulse Ox 99% on R/A; Weight 94.35 kg; Height aj 5 ft. 6 in. (167.64 cm); 21:16 BP 127 / 85; Pulse 78; Resp 18; Pulse Ox 98% on R/A; mg2 22:44 Pulse 71; Resp 18; Pulse Ox 99% on R/A; mg2 23:47 BP 115 / 74; Pulse 83; Resp 18; Temp 98.7; Pulse Ox 98% on R/A; mg2 05/25 01:17 BP 115 / 67; Pulse 75; Resp 17; Pulse Ox 100% ; mg2 05/24 20:36 Body Mass Index 33.57 (94.35 kg, 167.64 cm) ED Course: 05/24 20:24 Patient arrived in ED. ag3 20:35 Triage completed. aj 20:38 Arm band placed on left wrist. Patient placed in an exam room. aj 20:[address] PA is PHCP. [facility] 20:39 Zane Mac MD is Attending Physician. [facility] 20:39 PHCP role handed off by Moses Lane PA snw 20:39 Jennifer Rosales FNP-C is PHCP. snw 20:46 King Cabrera, CAROLANN is Primary Nurse. mg2 21:36 No provider procedures requiring assistance completed. mg2 21:37 Patient has correct armband on for positive identification. court recording monitor on. Pulse mg2 ox on. NIBP on. Door closed. Warm blanket given. 22:00 Inserted saline lock: 22 gauge in right antecubital area, using aseptic technique. mg2 22:26 EKG done, by ED staff, reviewed by Jennifer RAE. ag4 05/25 01:49 IV discontinued, intact, bleeding controlled, No redness/swelling at site. Pressure mg2 dressing applied. Administered Medications: 05/24 22:19 Drug: CarafATE 1 grams Route: PO; mg2 23:45 Follow up: Response: No adverse reaction; Marked relief of symptoms mg2 22:19 Drug: Phenergan 6.25 mg Route: IVP; Site: right antecubital; mg2 23:45 Follow up: Response: No adverse reaction; Marked relief of symptoms mg2 22:20 Drug: foLIC Acid 1 mg Route: IVPB; Site: right antecubital; mg2 23:46 Follow up: Response: No adverse reaction; IV Status: Completed infusion mg2 05/25 00:40 Drug: NS 0.9% 1000 ml Route: IV; Rate: 1 bolus; Site: left forearm; mg2 01:48 Follow up: Response: No adverse reaction; IV Status: Completed infusion mg2 00:40 Not Given (Patient Refused): [place] (7.5 mg-325 mg) 1 tabs PO once mg2 Outcome: 01:36 Discharge ordered by . snluz 01:49 Discharged to home ambulatory. mg2 01:49 Condition: stable 01:49 Discharge instructions given to patient, Instructed on discharge instructions, follow up and referral plans. medication usage, Demonstrated understanding of instructions, follow-up care, medications, Prescriptions given X 1. 01:50 Patient left the ED. mg2 Signatures: Steff Karimi, RN Jennifer Chamorro, BINDERY MACHINE SETTER-C BINDERY MACHINE SETTER-Csnw Moses Lane PA PA jmm Gardose, Michele, RN RN mg2 Shima Martin ag3 Elías Brambila ag4 Corrections: (The following items were deleted from the chart) 00:00 05/24 23:47 Pulse 83bpm; Resp 18bpm; Pulse Ox 98% RA; Temp 98.7F; mg2 mg2 05/25 01:49 05/24 21:36 Patient did not have IV access during this emergency room visit. mg2 mg2
--- NOTE | 2019-05-25 01:37 | EDPHYS ---
Physician Documentation [facility] Name: Liza Dexter Age: 43 yrs Sex: Female : 1975 Arrival Date: 05/24/2019 Time: 20:24 Bed 14 Private MD: ED Physician Zane Mac HPI: 05/24 21:46 This 43 yrs old Female presents to ER via Ambulatory with complaints of snw Vomiting, Sore Throat, Abdominal Pain. 21:46 The patient presents to the emergency department with nausea, vomiting. Onset: The snw symptoms/episode began/occurred 3 day(s) ago. Possible causes: unknown. The symptoms are aggravated by food . Associated signs and symptoms: Pertinent positives: nausea, vomiting. Severity of symptoms: At their worst the symptoms were moderate severe. The patient has experienced similar episodes in the past. The patient has been recently seen by a physician: for Iron infusion. 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 aj Historical: - Allergies: 20:36 ambien; aj 20:36 CEPHALOSPORINS; aj 20:36 Codeine; aj 20:36 Demerol; aj 20:36 Morphine; aj 20:36 Nexium; aj 20:36 Sulfa (Sulfonamide Antibiotics); aj 20:36 Zofran; aj - Home Meds: 20:36 Adderall XR 20 mg Oral cp24 1 cap once daily [Active]; amlodipine 5 mg tab 1 tab once aj daily [Active]; diazepam 10 mg Oral tab as needed [Active]; Flomax Oral [Active]; furosemide 20 mg Oral tab 1 tab once daily [Active]; hydrocodone-acetaminophen 10-500 mg Oral tab as needed [Active]; Lasix Oral [Active]; Lexapro Oral [Active]; methotrexate sodium injection once wkly [Active]; [place] 10-325 mg Oral tab as needed [Active]; Phenergan Oral 50 mg as needed [Active]; spironolactone 25 mg Oral tab 1 tab once daily [Active]; Topamax 200 mg Oral tab 1 tab 2 times per day [Active]; Valium Oral [Active]; vitamin b12 WEEKLY [Active]; vitamin b12 injection WEEKLY [Active]; Wellbutrin 150mg Oral tab daily [Active]; - PMHx: 20:36 Anemia; chron's; Colitis; Raynaud's syndrome; Scleroderma; Seizures; aj - PSHx: 20:36 Stomach Surgery; Esophagus Surgery; Hernia repair; aj - Immunization history:: Adult Immunizations up to date. - Social history:: Smoking status: Patient/guardian denies using tobacco. - Ebola Screening: : Patient negative for fever greater than or equal to 101.5 degrees Fahrenheit, and additional compatible Ebola Virus Disease symptoms Patient denies exposure to infectious person Patient denies travel to an Ebola-affected area in the 21 days before illness onset No symptoms or risks identified at this time. ROS: 21:45 Constitutional: Negative for fever, chills, and weight loss, Eyes: Negative for injury, snw pain, redness, and discharge, ENT: Negative for injury and discharge, + sore throat Neck: Negative for injury, pain, and swelling, Cardiovascular: Negative for chest pain, palpitations, and edema, Respiratory: Negative for shortness of breath, cough, wheezing, and pleuritic chest pain. 21:45 Back: Negative for injury and pain, : Negative for injury, bleeding, discharge, and swelling, MS/Extremity: Negative for injury and deformity, Skin: Negative for injury, rash, and discoloration, Neuro: Negative for headache, weakness, numbness, tingling, and seizure. 21:45 Abdomen/GI: Positive for nausea and vomiting. Exam: 21:44 Head/Face: Normocephalic, atraumatic. Eyes: Pupils equal round and reactive to light, snw extra-ocular motions intact. Lids and lashes normal. Conjunctiva and sclera are non-icteric and not injected. Cornea within normal limits. Periorbital areas with no swelling, redness, or edema. 21:44 Neck: Trachea midline, no thyromegaly or masses palpated, and no cervical lymphadenopathy. Supple, full range of motion without nuchal rigidity, or vertebral point tenderness. No Meningismus. Chest/axilla: Normal chest wall appearance and motion. Nontender with no deformity. No lesions are appreciated. Cardiovascular: Regular rate and rhythm with a normal S1 and S2. No gallops, murmurs, or rubs. Normal PMI, no JVD. No pulse deficits. Respiratory: Lungs have equal breath sounds bilaterally, clear to auscultation and percussion. No rales, rhonchi or wheezes noted. No increased work of breathing, no retractions or nasal flaring. 21:44 Back: No spinal tenderness. No costovertebral tenderness. Full range of motion. Skin: Warm, dry with normal turgor. Normal color with no rashes, no lesions, and no evidence of cellulitis. MS/ Extremity: Pulses equal, no cyanosis. Neurovascular intact. Full, normal range of motion. Neuro: Awake and alert, GCS 15, oriented to person, place, time, and situation. Cranial nerves II-XII grossly intact. Motor strength 5/5 in all extremities. Sensory grossly intact. Cerebellar exam normal. Normal gait. Psych: Awake, alert, with orientation to person, place and time. Behavior, mood, and affect are within normal limits. 21:44 Constitutional: The patient appears alert, awake, anxious, obese, pale, uncomfortable. 21:44 ENT: TM's: are normal, Nose: is normal, Mouth: is normal, Posterior pharynx: erythema, that is moderate, that is marked, Voice: is hoarse. 21:44 Abdomen/GI: Inspection: abdomen appears normal, Bowel sounds: normal, Palpation: mild abdominal tenderness, in the epigastric area, right upper quadrant and left upper quadrant, moderate abdominal tenderness. Vital Signs: 20:36 BP 89 / 76; Pulse 96; Resp 16; Temp 98.0; Pulse Ox 99% on R/A; Weight 94.35 kg; Height aj 5 ft. 6 in. (167.64 cm); 21:16 BP 127 / 85; Pulse 78; Resp 18; Pulse Ox 98% on R/A; mg2 22:44 Pulse 71; Resp 18; Pulse Ox 99% on R/A; mg2 23:47 BP 115 / 74; Pulse 83; Resp 18; Temp 98.7; Pulse Ox 98% on R/A; mg2 05/25 01:17 BP 115 / 67; Pulse 75; Resp 17; Pulse Ox 100% ; mg2 05/24 20:36 Body Mass Index 33.57 (94.35 kg, 167.64 cm) aj MDM: 05/24 21:19 Patient medically screened. snw 05/25 01:37 Data reviewed:. Data interpreted: Pulse oximetry: on room air is 100 %. Interpretation: snw normal. Counseling: I had a detailed discussion with the patient and/or guardian regarding: the historical points, exam findings, and any diagnostic results supporting the discharge/admit diagnosis, lab results, the need for outpatient follow up, to return to the emergency department if symptoms worsen or persist or if there are any questions or concerns that arise at home. Special discussion: Based on the patient's Hx, exam, and Dx evaluation, there is no indication for emergent surgery or inpatient Tx. It is understood by the patient/guardian that if the Sx's persist or worsen they need to return immediately for re-evaluation. Based on the history and exam findings, there is no indication for further emergent testing or inpatient evaluation. I discussed with the patient/guardian the need to see the primary care provider for further evaluation of the symptoms. 05/24 20:26 Order name: Strep; Complete Time: 21:19 [facility] 05/24 20:26 Order name: Urine Culture [facility] 05/24 20:26 Order name: Urine Microscopic Only; Complete Time: 21:48 [facility] 05/24 21:20 Order name: Throat Culture [facility] 05/24 21:40 Order name: Basic Metabolic Panel; Complete Time: 23:03 [facility] 05/24 21:40 Order name: CBC with Diff; Complete Time: 23:03 [facility] 05/24 21:40 Order name: LFT's; Complete Time: 23:03 [facility] 05/24 21:40 Order name: Magnesium; Complete Time: 23:03 [facility] 05/24 21:40 Order name: TS; Complete Time: 00:27 [facility] 05/24 21:40 Order name: TSH; Complete Time: 23:03 [facility] 05/24 22:12 Order name: CBC Smear Scan; Complete Time: 23:03 [facility] 05/24 20:26 Order name: Urine Dipstick-Ancillary (obtain specimen); Complete Time: 21:09 [facility] 05/24 21:40 Order name: IV Saline Lock; Complete Time: 22:20 [facility] 05/24 21:40 Order name: Labs collected and sent; Complete Time: 22:27 [facility] 05/24 21:40 Order name: O2 Per Protocol; Complete Time: 22:20 [facility] 05/24 21:40 Order name: O2 Sat Monitoring; Complete Time: 22:25 [facility] 05/24 21:51 Order name: EKG; Complete Time: 21:53 [facility] 05/24 21:51 Order name: EKG - Nurse/Tech; Complete Time: 22:00 snw Administered Medications: 05/24 22:19 Drug: CarafATE 1 grams Route: PO; mg2 23:45 Follow up: Response: No adverse reaction; Marked relief of symptoms mg2 22:19 Drug: Phenergan 6.25 mg Route: IVP; Site: right antecubital; mg2 23:45 Follow up: Response: No adverse reaction; Marked relief of symptoms mg2 22:20 Drug: foLIC Acid 1 mg Route: IVPB; Site: right antecubital; mg2 23:46 Follow up: Response: No adverse reaction; IV Status: Completed infusion mg2 05/25 00:40 Drug: NS 0.9% 1000 ml Route: IV; Rate: 1 bolus; Site: left forearm; mg2 01:48 Follow up: Response: No adverse reaction; IV Status: Completed infusion mg2 00:40 Not Given (Patient Refused): [place] (7.5 mg-325 mg) 1 tabs PO once mg2 Disposition: 02:27 Co-signature as Attending Physician, Zane Mac MD. pkl Disposition: 05/25/19 01:36 Discharged to Home. Impression: Dehydration, Acute laryngopharyngitis. - Condition is Stable. - Discharge Instructions: Dehydration, Adult, Laryngitis, Pharyngitis, Rehydration, Adult. - Prescriptions for Carafate 1 gram Oral Tablet - take 1 tablet by ORAL route 4 times per day take on an empty stomach, beginning on waking and last dose at bedtime; 100 tablet. - Work release form, Medication Reconciliation Form, Thank You Letter, Antibiotic Education, Prescription Opioid Use form. - Follow up: Private Physician; When: 2 - 3 days; Reason: Recheck today's complaints, Continuance of care, Re-evaluation by your physician. Follow up: Emergency Department; When: As needed; Reason: Worsening of condition. Signatures: Dispatcher [employer] Steff Thompson RN RN aj Lam, Pin, MD MD pkl Jennifer Rosales, BELT LOOP MACHINE OPERATOR-C BELT LOOP MACHINE OPERATOR-Csnw King Cabrera RN RN mg2 Corrections: (The following items were deleted from the chart) 01:50 01:36 05/25/2019 01:36 Discharged to Home. Impression: Dehydration; Acute mg2 laryngopharyngitis. Condition is Stable. Forms are Medication Reconciliation Form, Thank You Letter, Antibiotic Education, Prescription Opioid Use. Follow up: Private Physician; When: 2 - 3 days; Reason: Recheck today's complaints, Continuance of care, Re-evaluation by your physician. Follow up: Emergency Department; When: As needed; Reason: Worsening of condition. fely
[2019-05-25 04:35] VITALS: TEMP 98.7
[2019-05-25 04:36] VITALS: BP 115/67; O2SAT 100
--- NOTE | 2019-05-25 07:21 | EKG ---
Test Date: 2019-05-24 Test Time: 21:58:43 Drafting Layout Worker: [email or web address] MEASUREMENT RESULTS: Intervals: Rate: 72 GA: 148 QRSD: 70 QT: 406 QTc: 444 [place]: P: 40 GA: 148 QRS: 68 T: 62 INTERPRETIVE STATEMENTS: Normal sinus rhythm Normal ECG Compared to ECG 10/16/2018 19:30:32 T-wave abnormality no longer present Prolonged QT interval no longer present Electronically Signed On 05-25-19 07:20:32 CDT by Doroteo Elam
--- NOTE | 2019-05-25 14:53 | EKG ---
Test Date: 2019-05-24 Test Time: 21:59:14 [employer] G[employer] Editor: [email or web address] MEASUREMENT RESULTS: Intervals: Rate: 71 PA: 144 QRSD: 74 QT: 410 QTc: 445 [place]: P: 62 PA: 144 QRS: 65 T: 60 INTERPRETIVE STATEMENTS: Normal sinus rhythm Normal ECG Compared to ECG 05/24/2019 21:58:43 No significant changes Electronically Signed On 05-25-19 14:51:35 CDT by Doroteo Elam
== END 2019-05-25 01:50 | disposition home or self-care (01) ==
LOC: ER 20:21
DX: E86.0 Dehydration (principal); J06.0 Acute laryngopharyngitis; D64.9 Anemia, unspecified; K50.90 Crohn's disease, unspecified, without complications; I73.00 Raynaud's syndrome without gangrene; Z88.1 Allergy status to other antibiotic agents; Z88.5 Allergy status to narcotic agent; Z88.2 Allergy status to sulfonamides; Z88.8 Allergy status to other drugs, medicaments and biological substances; Z79.899 Other long term (current) drug therapy
CPT/HCPCS: 93005 ×2; 87070; 87088; 85025; 87086; 80048; 36415; 86900; 83735; 86850; 86901; 80076; 87081; 84443; 81015; J2550; J7030; 96361; 96365; 96375; 99284

== ENCOUNTER 2019-05-29 11:08 | Emergency (ER) | payer OTHER ==
--- OUTSIDE RECORDS SUMMARY | 2019-05-29 11:18 | XMS REPORT | Clinical Summary ---
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 Costochondritis 09/26/2018 [...] Office Visit Internal Medicine Higinio Meza Scleroderma ([facility]) ( Primary Dx); MD Tamir snf use of drug; Costochondritis; Status post total gastrectomy and Maggi-en-Y esophagojejunal anastomosis ; B12 deficiency; Attention deficit disorder (ADD) without hyperactivity; Iron deficiency anemia due to chronic blood loss; Other chronic pain; Generalized abdominal pain; Environmental allergies; Chronic nonintractable headache, unspecified headache type 03/06/2019 Office Visit Internal Medicine Higinio Meza Scleroderma ([facility]) ( Primary Dx); MD Tamir Chest pain, atypical; Attention deficit disorder, unspecified hyperactivity presence; Adjustment disorder with mixed anxiety and depressed mood; Primary insomnia; Other chronic pain; Generalized abdominal pain 02/22/2019 Refill Internal Medicine Higinio Meza MD 02/17/2019 Telephone Internal Higinio Luis MD 02/07/2019 Office Visit Internal Higinio Luis Gastroesophageal reflux disease without esophagitis (Primary Dx); MD Tamir Scleroderma ([facility]); Other chronic pain; Generalized abdominal pain; Acute pain of right shoulder 01/21/2019 Refill Internal Higinio Luis MD 01/09/2019 Orders Only Internal Higinio Luis MD 01/07/2019 Refill Internal Higinio Luis MD 01/06/2019 Office Visit Internal Higinio Luis Vitamin D deficiency (Primary Dx); MD Tamir Iron deficiency anemia due to chronic blood loss; Scleroderma ([facility]); S/P PICC central line placement; Nausea; 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; Adjustment disorder with mixed anxiety and depressed mood 12/09/2018 Office Visit Internal Medicine Higinio Meza Hospital discharge follow-up (Primary Dx); MD Tamir Chronic nonintractable headache, unspecified headache type; Seizure (HCC); Black-out (not amnesia); Fluid retention; Scleroderma (HCC); Chronic pain syndrome; Other chronic pain; Generalized abdominal pain; snf use of drug 11/28/2018 Telephone Internal Medicine Higinio Meza MD 11/09/2018 Telephone Internal Medicine Higinio Meza MD 11/07/2018 Orders Only Internal Medicine Higinio Meza MD 11/03/2018 Office Visit Internal [facility] Higinio Meza Hospital discharge follow-up (Primary Dx); [...] Other chronic pain; Generalized abdominal pain; [facility] therapy; Food intolerance; Iron deficiency anemia [...] Atypical chest pain MD Tamir (Primary Dx) after 05/28/2018 Immunizations Name Dates Previously Given Next Due [...] Office Visit [place] [address] [place] [address] [phone] Health Maintenance Due Date Last Done Comments [...] section. 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 CBC WITH PLATELET AND Routine 04/06/2019 1:56 snf use of drug Results for this DIFFERENTIAL PM CDT Iron deficiency anemia procedure are in due to chronic blood the results loss section. COMPREHENSIVE Routine 04/06/2019 1:56 Scleroderma (HCC) Results for this METABOLIC PANEL PM CDT snf use of drug procedure are in Status post total the results gastrectomy and section. Maggi-en-Y esophagojejunal anastomosis Attention deficit disorder (ADD) without hyperactivity Iron deficiency anemia due to chronic blood loss MAGNESIUM LEVEL Routine 01/06/2019 2:09 Iron deficiency anemia Results for this PM [employer] due to chronic blood procedure are in loss the results Nausea section. snf use of drug TOTAL IRON BINDING Routine 01/06/2019 2:09 Iron deficiency anemia Results for this CAPACITY PM [employer] due to chronic blood procedure are in loss the results section. COMPREHENSIVE Routine 01/06/2019 2:09 Iron deficiency anemia Results for this METABOLIC PANEL PM [employer] due to chronic blood procedure are in loss the results Nausea section. 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 CBC WITH PLATELET AND Routine 01/06/2019 2:09 Iron deficiency anemia Results for this DIFFERENTIAL PM [employer] due to chronic blood procedure are in loss the results Scleroderma (HCC) section. Nausea snf use of drug VITAMIN D 25 HYDROXY Routine 11/03/2018 10:24 Hospital discharge Results for this LEVEL AM [employer] follow-up procedure are in Gastrointestinal the results hemorrhage, unspecified section. gastrointestinal hemorrhage type Vitamin D deficiency VITAMIN B12 LEVEL Routine 11/03/2018 10:24 Hospital discharge Results for this AM [employer] follow-up procedure are in Vitamin B12 deficiency the results section. FERRITIN LEVEL Routine 11/03/2018 10:24 Hospital discharge Results for this AM [employer] follow-up procedure are in Iron deficiency anemia the results due to chronic blood section. loss COMPREHENSIVE Routine 11/03/2018 10:24 Hospital discharge Results for this METABOLIC PANEL AM [employer] follow-up procedure are in Weight loss the results section. CBC WITH PLATELET AND Routine 11/03/2018 10:24 Hospital discharge Results for this DIFFERENTIAL AM [employer] follow-up procedure are in Gastrointestinal the results [...] PM CDT pain procedure are in [facility] drug the results therapy section. Food intolerance FOOD ALLERGY PANEL Routine 07/14/2018 3:51 Bloating Results for this PM CDT Generalized abdominal procedure are in pain the results [facility] drug section. therapy Food intolerance LIPASE LEVEL Routine 07/14/2018 3:51 Bloating Results for this PM CDT Other chronic pain procedure are in Generalized abdominal the results pain section. On [facility] [facility] drug therapy AMYLASE LEVEL Routine 07/14/2018 3:51 Bloating Results for this PM CDT Generalized abdominal procedure are in pain the results On [facility] drug section. therapy SEDIMENTATION RATE Routine 07/14/2018 3:51 Bloating Results for this PM CDT On [facility] drug procedure are in therapy the results section. CRP HIGH SENSITIVITY Routine 07/14/2018 3:51 Bloating Results for this PM CDT On [facility] drug procedure are in therapy the results section. MAGNESIUM LEVEL Routine 07/14/2018 3:51 Bloating Results for this PM CDT [facility] drug procedure are in therapy the results section. INSULIN, RANDOM Routine 07/14/2018 3:51 Bloating Results for this PM CDT On [facility] drug procedure are in therapy the results section. THYROID STIMULATING Routine 07/14/2018 3:51 Bloating Results for this HORMONE PM CDT Scleroderma procedure are in Other chronic pain the results [facility] drug section. 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 Fluid retention On [facility] [facility] drug therapy VITAMIN D 25 HYDROXY Routine 07/14/2018 3:51 Bloating Results for this LEVEL PM CDT Vitamin D deficiency procedure are in [facility] drug the results therapy section. COMPREHENSIVE Routine 07/14/2018 3:51 Bloating Results for this METABOLIC PANEL PM CDT Elevated liver enzymes procedure are in Fluid retention the results [facility] drug section. therapy CBC WITH PLATELET AND Routine 07/14/2018 3:51 Bloating Results for this DIFFERENTIAL PM CDT Generalized abdominal procedure are in pain the results On [facility] [facility] drug section. therapy after 05/28/2018 Results Vitamin D 25 hydroxy level (05/15/2019 3:26 PM CDT)Only the most recent of4 resultswithin the time period is included. Vitamin D, 18 (L) 30 - 100 [address] 25-hydroxy Comment: ng/mL [place] Vitamin D Status 25-OH Vitamin D: Deficiency:<20 ng/mL Insufficiency: 20 - 29 ng/mL Optimal: > or=30 ng/mL For 25-OH Vitamin D testing on patients on D2-supplementation and patients for whom quantitation of D2 and D3 fractions is required, the QuestAssureD(TM) 25-OH VIT D, (D2,D3), LC/MS/MS is recommended: order code 33669 (patients >2yrs). For more information on this test, go to: http://education.[employer]/faq/CUR596 (This link is being provided for informational/educational purposes only.) Specimen Blood Narrative Performed At FASTING:YES [facility] COLLECTION KIT GIVEN TO PATIENT. PATIENT ADVISED TO RETURN. FASTING: YES Resulting Agency Comment Performing Organization Information: Site ID: [id number] [facility]: [facility] Address: [address] [place] [phone] Director: Marcy Maher Performing Organization Address City/State/Zipcode Phone Number [employer] [address] [address] CRP high sensitivity (05/15/2019 3:26 PM CDT)Only the most recent of3 resultswithin the time period is included. CRP, high 5.0 (H) mg/L [facility] sensitivity Comment: [facility] Reference Range NG II Optimal <1.0 Daya HENDERSON et al. Endocr Pract.2017;23(Suppl 2):1-87. For ages [...] Performing Organization Information: Site ID: [id number] [facility]: [facility] Address: [address] [place] [phone] Director: Dr. Krunal Pettit Performing Organization Address City/[facility]/Zipcode Phone Number [employer] [address] Thyroid stimulating hormone (05/15/2019 3:26 PM CDT)Only the most recent of2 resultswithin the time period is included. TSH 0.73 mIU/L [address] Comment: [place] Reference Range > or=20 Years0.40-4.50 Ranges First trimester0.26-2.66 Second trimester 0.55-2.73 Third trimester0.43-2.91 Specimen Blood Narrative Performed At FASTING:YES [facility] COLLECTION KIT GIVEN TO PATIENT. PATIENT ADVISED TO RETURN. FASTING: YES Resulting Agency Comment Performing Organization Information: Site ID: RGA Name: [facility] Address: [address] [place] [address] Director: Marcy Maher Performing Organization Address City/[facility]/Zipcode Phone Number [employer] [address] [address] Magnesium, RBC (05/15/2019 3:26 PM CDT)Only the most recent of2 resultswithin the time period is included. Magnesium RBC 4.0 4.0 - 6.4 [address] Comment: mg/dL WILMAN WALSH This test was developed and its analytical performance characteristics have been determined by [facility]. It has not been cleared or approved by the US Food and Drug Administration. This assay has been validated pursuant to the CLIA regulations and is used for clinical purposes. Specimen Blood Narrative Performed At FASTING:YES [facility] COLLECTION KIT GIVEN TO PATIENT. PATIENT ADVISED TO RETURN. FASTING: YES Resulting Agency Comment Performing Organization Information: Site ID: [id number] [facility]: [facility] Address: [address] [place] [phone] Director: Beto Martin M.D., Ph.D Performing Organization Address City/[facility] Centercode Phone Number [facility] [address] [address] [phone] Lipase level (05/15/2019 3:26 PM CDT)Only the most recent of2 resultswithin the time period is included. Lipase 14 7 - 60 U/L [facility] Specimen Blood Narrative Performed At FASTING:YES [facility] COLLECTION KIT GIVEN TO PATIENT. PATIENT ADVISED TO RETURN. FASTING: YES Resulting Agency Comment Performing Organization Information: Site ID: RGA Name: [facility] Address: [address] [place] [phone] Director: Marcy Maher Performing Organization Address City/[facility] Centercoks Phone Number [employer] [address] [address] Vitamin B12 level (05/15/2019 3:26 PM CDT)Only the most recent of4 resultswithin the time period is included. Vitamin B12 264 200 - 1,100 [address] Comment: pg/mL [place] Please Note: Although the reference range for [...] Agency Comment Performing Organization Information: Site ID: [id number] Name: [facility] Address: [address] [place] [phone] Director: Marcy Maher Performing Organization Address City/State/[facility] Centercode Phone Number [employer] [address] [address] Amylase level (05/15/2019 3:26 PM CDT)Only the most recent of2 resultswithin the time period is included. Amylase 23 21 - 101 U/L [facility] [place] Specimen Blood Narrative Performed At FASTING:YES [facility] COLLECTION KIT GIVEN TO PATIENT. PATIENT ADVISED TO RETURN. FASTING: YES Resulting Agency Comment Performing Organization Information: Site ID: [id number] Name: [facility] Address: [address] [place] [phone] Director: Marcy Maher Performing Organization Address City/[facility] Centercoks [place] [address] Comprehensive metabolic panel (05/15/2019 3:26 PM CDT)Only the most recent of6 resultswithin the time period is included. Glucose 90 65 - 99 [facility] Comment: mg/dL [place] Fasting reference interval BUN, whole blood 9 7 - 25 mg/dL [facility] [place] Creatinine 0.70 0.50 - 1.10 [facility] mg/dL [place] EGFR Non-Afr. 106 > OR=60 [facility] [place] mL/min/1.73m [place] 2 EGFR 123 > OR=60 [facility] [place] mL/min/1.73m [place] 2 BUN/creatinine NOT APPLICABLE 6 - 22 [facility] ratio (calc) [place] Sodium 141 135 - 146 [facility] mmol/L [place] Potassium 3.5 3.5 - 5.3 [facility] mmol/L [place] Chloride 110 98 - 110 [facility] mmol/L [place] CO2 24 20 - 32 [facility] mmol/L [place] Calcium 8.8 8.6 - 10.2 [facility] mg/dL [place] Protein 6.9 6.1 - 8.1 [facility] g/dL [place] Albumin, S 3.8 3.6 - 5.1 [facility] g/dL [place] Globulin, total 3.1 1.9 - 3.7 [facility] g/dL (calc) [place] Albumin/globulin 1.2 1.0 - 2.5 [facility] ratio (calc) [place] Total bilirubin 0.3 0.2 - 1.2 [facility] mg/dL [place] Alkaline 157 (H) 33 - 115 U/L [facility] phosphatase [place] AST 20 10 - 30 U/L [facility] [place] ALT 21 6 - 29 U/L [facility] [place] Specimen Blood Narrative Performed At FASTING:YES [facility] COLLECTION KIT GIVEN TO PATIENT. PATIENT ADVISED TO RETURN. FASTING: YES Resulting Agency Comment Performing Organization Information: Site ID: [id number] Name: [facility] Address: [address] [place] [phone] Director: Marcy Maher Performing Organization Address City/[facility] Centercode [place] [address] Total iron binding capacity (04/06/2019 1:56 PM CDT)Only the most recent of2 resultswithin the time period is included. Iron level 58 40 - 190 mcg/dL [address] [place] Iron binding capacity 396 250 - 450 mcg/dL [address] (calc) [place] Iron saturation 15 11 - 50 % (calc) [address] [place] Specimen Blood Narrative Performed At FASTING:YES [facility] FASTING: YES Resulting Agency Comment Performing Organization Information: Site ID: A Name: [facility] Address: [address] [place] [phone] Director: Marcy Maher Performing Organization Address [facility]iatric Centercode [place] [address] CBC with platelet and differential (04/06/2019 1:56 PM CDT)Only the most recent of5 resultswithin the time period is included. WBC 4.5 3.8 - 10.8 [facility] Thousand/uL [place] RBC 4.06 3.80 - 5.10 [facility] Million/uL [place] HGB 11.4 (L) 11.7 - 15.5 [facility] g/dL [place] HCT 34.6 (L) 35.0 - 45.0 % [facility] [place] MCV 85.2 80.0 - 100.0 fL [facility] [place] MCH 28.1 27.0 - 33.0 pg [address] [place] MCHC 32.9 32.0 - 36.0 [facility] g/dL [place] RDW 15.6 (H) 11.0 - 15.0 % [address] [place] Platelet count 279 140 - 400 [facility] Thousand/uL [place] MPV 10.4 7.5 - 12.5 fL [address] [place] Neutrophils, absolute 2,619 1,500 - 7,800 [facility] cells/uL [place] Lymphocytes, absolute 1,242 850 - 3,900 [facility] cells/uL [place] Monocytes, absolute 401 200 - 950 [facility] cells/uL [place] Eosinophils, absolute 230 15 - 500 [facility] cells/uL [place] Basophils, absolute 9 0 - 200 [facility] cells/uL [place] Neutrophils 58.2 % [address] [place] Lymphocytes 27.6 % [address] [place] Monocytes 8.9 % [address] [place] Eosinophils 5.1 % [address] [place] Basophils + RC 0.2 % [address] [place] Specimen Blood Narrative Performed At FASTING:YES [facility] FASTING: YES Resulting Agency Comment Performing Organization Information: Site ID: RGA Name: [facility] Address: [address] [place] [phone] Director: Marcy Maher Performing Organization Address City/State/Zipcode [place] [address] Ferritin level (04/06/2019 1:56 PM CDT)Only the most recent of5 resultswithin the time period is included. Ferritin level 8 (L) 10 - 232 ng/mL [address] [place] Specimen Blood Narrative Performed At FASTING:YES [facility] FASTING: YES Resulting Agency Comment Performing Organization Information: Site ID: RGA Name: [facility] Address: [address] [place] [phone] Director: Marcy Maher Performing Organization Address City/[facility]/Zipcode [place] [address] Magnesium level (01/06/2019 2:09 PM [employer])Only the most recent of2 resultswithin the time period is included. Magnesium 1.9 1.5 - 2.5 mg/dL [address] [place] Specimen Blood Resulting Agency Comment Performing Organization Information: Site ID: RGA Name: [facility] Address: [address] [place] [phone] Director: Marcy Maher Performing Organization Address [facility] Centercode Phone Number [employer] [address] [address] URINALYSIS, COMPLETE, WITH REFLEX TO CULTURE (09/08/2018 2:11 PM CDT) Color, UA YELLOW YELLOW [facility] [place] Appearance CLEAR CLEAR [facility] [place] Specific gravity, 1.009 1.001 - 1.035 [facility] urine [place] pH, urine 6.0 5.0 - 8.0 [facility] [place] Glucose, urine NEGATIVE NEGATIVE [facility] [place] Bilirubin, UA NEGATIVE NEGATIVE [facility] [place] Ketones, UA NEGATIVE NEGATIVE [facility] [place] Occult blood, NEGATIVE NEGATIVE [facility] urine [place] Protein, UA NEGATIVE NEGATIVE [facility] [place] Nitrite, UA NEGATIVE NEGATIVE [facility] [place] Leukocyte NEGATIVE NEGATIVE [facility] esterase, UA [place] WBC, UA NONE SEEN < OR=5 /HPF [facility] [place] RBC, UA NONE SEEN < OR=2 /HPF [facility] [place] Squamous NONE SEEN < OR=5 /HPF [facility] epithelial cells, [place] UA Bacteria, UA NONE SEEN NONE SEEN /HPF [facility] [place] Hyaline casts, UA NONE SEEN NONE SEEN /LPF [facility] [place] Reflex NO CULTURE [facility] INDICATED [place] Specimen Narrative Performed At FASTING:UNKNOWN [facility] FASTING: UNKNOWN Resulting Agency Comment Performing Organization Information: Site ID: RGA [facility]: [facility] Address: [address] [place] [phone] Director: aMrcy Maher Performing Organization Address [facility] Centercode Phone Number [employer] [address] [address] Creatine kinase, total (CPK) (09/08/2018 2:11 PM CDT) Creatine kinase 48 29 - 143 U/L [address] [place] Specimen Blood Narrative Performed At FASTING:UNKNOWN [facility] FASTING: UNKNOWN Resulting Agency Comment Performing Organization Information: Site ID: RGA [facility]: [facility] Address: [address] [place] [phone] Director: Marcy Maher Performing Organization Address [facility]/Zipcode Phone Number [employer] [address] [address] Food allergy panel (07/14/2018 3:51 PM CDT) Egg white IgE <0.10 kU/L [facility] NG II Egg white class 0 [facility] NG II Peanut IgE <0.10 kU/L [facility] NG II Peanut class 0 [facility] NG II Wheat IgE <0.10 kU/L [facility] NG II Wheat class 0 [facility] NG II Moody <0.10 kU/L [facility] NG II Walnuts class 0 [facility] NG II Codfish IgE <0.10 kU/L [facility] NG II Codfish class 0 [facility] NG II Milk IgE <0.10 kU/L [facility] NG II Milk class 0 [facility] NG II Soybean IgE <0.10 kU/L [facility] NG II Soybean class 0 [facility] NG II Metamora <0.10 kU/L [facility] NG II [place] class 0 [facility] NG II Shrimp [...] analytical performance characteristics have been determined by [facility]. It has not been cleared or approved by the U.S. Food and Drug Administration. This assay has been validated pursuant to the CLIA regulations and is used for clinical purposes. Specimen Narrative Performed At FASTING:YES [facility] COLLECTION REQUIREMENTS NOT MET. PATIENT ADVISED TO RETURN. FASTING: YES Resulting Agency Comment Performing Organization Information: Site ID: [id number] [facility] Address: [address] [place] [phone] Director: Dr. Krunal Pettit Performing Organization Address City/State/Zipcode Phone Number [facility] [address] [place] [address] Celiac disease panel (07/14/2018 3:51 PM CDT) Interpretation SEE NOTE [facility] Comment: [facility] No serological evidence of celiac disease. [facility] tTG IgA may normalize in individuals with celiac disease who maintain a gluten-free diet. Consider HLA DQ2 and DQ8 testing to rule out celiac disease. Celiac disease is extremely rare in the absence of DQ2 or DQ8. Tissue transglutaminase <1 U/mL [facility] Ab, IgA Comment: DIAGNOSTICS/[facility] <4 No Antibody Detected > OR=4 Antibody Detected IgA 260 81 - 463 [facility] mg/dL [facility] Specimen Blood Narrative Performed At FASTING:YES [facility] COLLECTION REQUIREMENTS NOT MET. PATIENT ADVISED TO RETURN. FASTING: YES Resulting Agency Comment Performing Organization Information: Site ID: [id number] Name: [facility] Address: [address] [place] [phone] Director: Erin Ching MD,PhD,ARCENIO Performing Organization Address City/State/Zipcode Phone Number [facility] [address]/[facility] [id number] [place] [phone] [facility] [place] Insulin, random (07/14/2018 3:51 PM CDT) Insulin 40.6 (H) 2.0 - 19.6 [facility] Comment: uIU/mL [facility] This insulin assay shows strong cross-reactivity for II some insulin analogs (lispro, aspart, and glargine) and much lower cross-reactivity with others (detemir, glulisine). Specimen Blood Narrative Performed At FASTING:YES [facility] COLLECTION REQUIREMENTS NOT MET. PATIENT ADVISED TO RETURN. FASTING: YES Resulting Agency Comment Performing Organization Information: Site ID: [id number] [facility]: [facility] Address: [address] [place] [id number] Director: Dr. Krunal Pettit Performing Organization Address City/State/Zipcode Phone Number [facility] [address] [place] [address] Sedimentation rate (07/14/2018 3:51 PM CDT) Sedimentation rate 19 < OR=20 mm/h [facility] [employer] [place] Specimen Blood Narrative Performed At FASTING:YES QUEST COLLECTION REQUIREMENTS NOT MET. PATIENT ADVISED TO RETURN. FASTING: YES Resulting Agency Comment Performing Organization Information: Site ID: [id number] Name: [facility] Address: [address] [place] [id number] Director: Marcy Maher Performing Organization Address [facility] Cent[facility] Phone Number [employer] [place] [address] [place] [phone] after 05/28/2018 [phone] (Work) Advance Directives Patient has advance care planning documents on file. For more information, please contact:[place] [address]
--- OUTSIDE RECORDS SUMMARY | 2019-05-29 11:55 | XMS REPORT | Continuity of Care Document ---
:1975 Author Organization [employer] Stayful Care Team Providers Name Role Phone [employer] Unavailable Unavailable Problems Problem Status Onset Classification Date Comments Source Date Reported DYSPHAGIA Active 019 [place] N/V, INTOLLERANCE Active PO INTAKE 019 [place] R13.10 Active 019 [facility] R10.13 Active 018 [facility] SEPTIC RIGHT HIP Active 016 [facility] ACUTE PAIN RIGHT Active HIP 016 [place] VOMITING Active 016 [place] SMALL BOWEL Active OBSRTUCTION VS 016 [place] ILEUS SEVERE PROTEIN Active CALORIC NUTRITION 016 [place] UNABLE DX: CHEST MASS, Active CHEST PAIN, 016 [place] ABDOMINAL PA EGD / POSS Active ESOPHAGEAL 016 [place] DILATION / PLACEME DX: Active R13.10=DYSPHAGIA, 016 [place] UNSPECIFIED R13.10 DYSPHAGIA, Active UNSPECIFIED 016 [place] UNK Active 015 [facility] R13.10/K22.2 Active 015 [place] CHEST PAIN Active 015 [facility] INTRACTABLE PAIN Active POST OP 015 [place] R13.10/K22.4 Active 015 [place] BOWEL OBSTRUCTION Active 015 [place] GERD Active 015 [facility] EASY BRUISABILITY Active Condition 05/09/2015 Medical 015 Group PHARYNGITIS, ACUTE Active Condition 05/09/2015 Medical 015 Group Acute pharyngitis1 Active Problem 05/19/2019 Data Mischer 015 migrated Neuro,2.16. from GE 840.1.44223 Centricity [id number] on 05/15/15. , [place],M H OPID [place] Easy [id number] Active Problem 05/19/2019 Data Mischer 015 migrated Neuro,2.16. from GE 840.1.09299 Centricity [id number] on 05/15/15. ,[facility] FERNANDO [place] CHRONIC PAIN Active Condition 05/09/2015 Medical SYNDROME 015 Group MIGRAINE HEADACHE Active Condition 05/09/2015 Medical 015 Group Chronic pain Active Problem 05/19/2019 Data Mischer syndrome8 015 migrated Neuro,2.16. from GE 840.1.75747 Centricity [id number] on 05/15/15. ,[facility] [place] Twebphox18 Active Problem 05/19/2019 Data Mischer 015 migrated Neuro,2.16. from GE 840.1.08048 Centricity [id number] on 05/15/15. ,[facility] [place] ADJUSTMENT Active Condition 05/09/2015 Medical DISORDER WITH 015 Group DEPRESSED MOOD Adjustment Active Problem 05/19/2019 Data migrated from GE Centricity on 05/15/15. Mischer disorder with 015 Data migrated from GE Centricity on 04/10/15. Neuro, 2.16. depressed mood2, 3 840.1.76083 [id number] ,[facility] FERNANDO [place] MYALGIA Active Condition 05/09/2015 Medical 015 Group Muscle pain24, 25 Active Problem 05/19/2019 Data migrated from GE Centricity on 05/15/15. Mischer 015 Data migrated from GE Centricity on 04/10/15. Neuro,2.16. 840.1.82455 [id number] ,[facility] [place] ASCITES Active Condition 05/09/2015 Medical 015 Group INSOMNIA Active Condition 05/09/2015 Medical 015 Group Ascites4, 5 Active Problem 05/19/2019 Data migrated from GE Centricity on 05/15/15. Mischer 015 Data migrated from GE Centricity on 04/10/15. Neuro,2.16. 840.1.89742 3.3.615.134 ,[facility] FERNANDO [place] Oxvnbber88, 20 Active Problem 05/19/2019 Data migrated from GE Centricity on 05/15/15. Mischer 015 Data migrated from GE Centricity on 04/10/15. Neuro,2.16. 840.1.96736 3.3.615.134 ,[facility] DYSFUNCTIONAL Active Condition 05/09/2015 Medical UTERINE BLEEDING 015 Group SHORTNESS OF Active Condition 05/09/2015 Medical BREATH 015 Group Dysfunctional Active Problem 05/19/2019 Data migrated from GE Centricity on 05/15/15. Mischer uterine 015 Data migrated from GE Centricity on 04/10/15. Neuro,2.16. , 12 840.1.32331 3.3.615.134 ,[facility] Ehckokt66, 14 Active Problem 05/19/2019 Data migrated from GE Centricity on 05/15/15. Mischer 015 Data migrated from GE Centricity on 04/10/15. Neuro,2.16. 840.1.66098 3.3.615.134 ,[facility] [place] RIGHT ABDOMINAL Active WALL MASS 015 [place] ABDOMINAL PAIN Active [facility] INCISIONAL HERNIA 014 Medical Center VENTRAL HERNIA Active [address] VENTRAL HERNIA, Active Condition 05/09/2015 Medical INCISIONAL 014 Group Incisional Active Problem 05/19/2019 Data Mischer [id number] 014 migrated Neuro,2.16. from GE 840.1.45618 Centricity [id number] on 04/09/15. ,[facility] [place] [address] Active 014 [place] TRANSAMINASES, Active Condition 05/09/2015 Medical SERUM, ELEVATED 014 Group CHEST PAIN, Active Condition 05/09/2015 Medical ATYPICAL 014 Group SHOULDER PAIN, Active Condition 05/09/2015 Medical RIGHT 014 Group HYPERTENSION, Active Condition 05/09/2015 Medical BENIGN 014 Group Atypical chest Active Problem 05/19/2019 Data Mischer pain6 014 migrated Neuro,2.16. from GE 840.1.08613 Centricity [id number] on 04/09/15. ,[facility],M OPID [place] Benign Active Problem 05/19/2019 Data [facility] hypertension7 014 migrated Neuro,2.16. from GE 840.1.92335 Centricity [id number] on 04/09/15. ,[facility] OPID [place] Elevated levels of Active Problem 05/19/2019 Data [facility] transaminase & 014 migrated Neuro,2.16. lactic acid from GE 840.1.21556 [id number] Centricity [id number] on 04/09/15. ,[facility] OPID [place] Shoulder joint Active Problem 05/19/2019 Data Mischer pain28 014 migrated Neuro,2.16. from GE 840.1.24402 Centricity [id number] on 04/09/15. ,[facility] YANELYD [place] ABD PAIN Active 014 [facility] ABDOMINAL PAIN, Active S/P ESOPHAGEAL 014 [facility] SURGERY 787.20 Active 014 [facility] 553.3/530.81/710.1 Active /787.20/86143/4900 014 [facility] 553.3 530.81 Active 787.20 014 [facility] 530.5 Active CRICOPHARYNGEUS 014 [facility] MUSCLE DYSFUNCTION SCLERODERMA Active Condition 05/09/2015 Medical 014 Group ESOPHAGEAL Active Condition 05/09/2015 Medical MOTILITY DISORDER 014 Group ANEMIA, IRON Active Condition 05/09/2015 Medical DEFICIENCY 014 Group INCOMPLETE BLADDER Active Condition 05/09/2015 Medical EMPTYING 014 Group SCREENING, Inactive Condition 05/09/2015 Medical DIABETES MELLITUS 014 Group SCREENING FOR Inactive Condition 05/09/2015 Medical LIPOID DISORDERS 014 Group NEPHROLITHIASIS Active Condition 05/09/2015 Medical 014 Group FATIGUE Inactive Condition 05/09/2015 Medical 014 Group COUGH Active Condition 05/09/2015 Medical 014 Group SEIZURE DISORDER Active Condition 05/09/2015 Medical 014 Group Cough9 Active Problem 05/19/2019 Data Mischer 014 migrated Neuro,2.16. from GE 840.1.10232 Centricity [id number] on 04/09/15. ,[facility] [place] Diffuse spasm of Active Problem 05/19/2019 Data Mischer [id number] 014 migrated Neuro,2.16. from GE 840.1.61349 Centricity 3.3.615.134 on 04/09/15. ,[facility] OPID [place] Incomplete Active Problem 05/19/2019 Data Mischer emptying of 014 migrated Neuro,2.16. [id number] from GE 840.1.40622 Centricity 3.3.615.134 on 04/09/15. ,[facility] OPID [place] Iron deficiency Active Problem 05/19/2019 Data Mischer [id number] 014 migrated Neuro,2.16. from GE 840.1.62392 Centricity 3.3.615.134 on 04/09/15. ,[facility] [place] Kidney stone22 Active Problem 05/19/2019 Data Mischer 014 migrated Neuro,2.16. from GE 840.1.94946 Centricity 3.3.615.134 on 04/09/15. ,[facility] OPID [place] [id number] Active Problem 05/19/2019 Data Mischer 014 migrated Neuro,2.16. from GE 840.1.50768 Centricity 3.3.615.134 on 04/09/15. ,[facility] OPID [place] Seizure [id number] Active Problem 05/19/2019 Data Mischer 014 migrated Neuro,2.16. from GE 840.1.04739 Centricity 3.3.615.134 on 04/09/15. , Christie Campbell Final: Unspecified 08/11/2015 intestinal [place] obstruction Final: 12/02/2014 [facility] Final: Pain in 10/09/2016 unspecified joint [place] Nausea with 11/30/2018 vomiting, [place] unspecified Anemia Active Problem 05/19/2019 [facility],2.16 .840.1.1138 83.3.615.13 4,[facility] FERNANDO Kimble Cyst of kidney Resolved Problem 05/19/2019 [facility],2.16 .840.1.1138 83.3.615.13 4,[facility] Diverticulitis Active Problem 05/19/2019 [facility],2.16 .840.1.1138 83.3.615.13 4,[facility] Erika Kimble Difficult airway Resolved Problem 05/19/2019 [facility],2.16. 840.1.30686 3.3.615.134 ,[facility] Erika Kimble GERD - Active Problem 05/19/2019 [facility] [place]ophageal [facility] reflux disease [facility],2.16 .840.1.1138 83.3.615.13 4,[facility] [place] H/O degenerative Resolved Problem 05/19/2019 [facility] [place] disease Neuro,2.16. 840.1.07243 3.3.615.134 ,[facility] Erika KING [place] Bradycardia Resolved Problem 05/19/2019 [facility],2.16. 840.1.99867 3.3.615.134 ,[facility] Erika [place] Hiatal hernia Active Problem 05/19/2019 [facility],2.16 .840.1.1138 83.3.615.13 4,[facility] [place] Hypertension Active Problem 05/19/2019 [facility],2.16 .840.1.1138 83.3.615.13 4,[facility] Erika Kimble Kidney stones Resolved Problem 05/19/2019 [facility],2.16 .840.1.1138 83.3.615.13 4,[facility] Erika Kimble Migraines Resolved Problem 05/19/2019 [facility],2.16 .840.1.1138 83.3.615.13 4,[facility] Erika Kimble Moderate Active Problem 05/19/2019 [facility] protein-calorie Neuro,2.16. malnutrition 840.1.51449 3.3.615.134 ,[facility] Colitis Resolved Problem 05/19/2019 [facility],2.16. 840.1.44143 3.3.615.134 ,[facility] Erika Kimble Obesity Active Problem 05/19/2019 [facility],2.16. 840.1.03218 3.3.615.134 ,[facility] FERNANDO Kimble Raynaud disease Active Problem 05/19/2019 [facility],2.16 .840.1.1138 83.3.615.13 4,[facility] FERNANDO Kimble Scleroderma Active Problem 05/19/2019 [facility],2.16 .840.1.1138 83.3.615.13 4,[facility] Erika Kimble Seizure Active Problem 05/19/2019 [facility],2.16 .840.1.1138 83.3.615.13 4,[facility] Erika NYD [place] Shortness of Active Problem 05/19/2019 [facility] [place] [place] [facility],2.16 .840.1.1138 83.3.615.13 4,[facility] Erika Kimble Tachycardia Resolved Problem 05/19/2019 [facility],2.16 .840.1.1138 83.3.615.13 4,[facility] Erika Kimble DYSPHAGIA NOS Active [facility] DYSKINESIA OF Active ESOPHAGUS [facility] SYSTEMIC SCLEROSIS Active [facility] DIAPHRAGMATIC Active HERNIA [place] ESOPHAGEAL REFLUX Active [facility] RT SHOULDER PAIN Active SMR UDU CHO [facility] HERNIA NEC Active [place] ABDMNAL PAIN Active [facility] HERNIA NOS Active [facility] VENTRAL HERNIA NOS Active [facility] ABDMNAL MASS Active [facility] UNSPECIFIED Active INTESTINAL [place] OBSTRUCTION DYSPHAGIA, Active UNSPECIFIED [place] DYSKINESIA OF Active ESOPHAGUS [place] PAIN, UNSPECIFIED Active [place] ESOPHAGEAL Active OBSTRUCTION [place] ACUTE ABDOMEN Active [facility] CHEST PAIN, Active UNSPECIFIED [place] DYSPHASIA Active [place] UNSPECIFIED Active PROTEIN-CALORIE [place] MALNUTRITION VOMITING, Active UNSPECIFIED [place] CONGEN ABSENCE, Active ATRESIA AND [place] STENOSIS OF ILEUS, UNSPECIFIED Active [facility] ENCNTR FOR GENERAL Active ADULT MEDICAL EXAM [place] W/ PAIN IN Active UNSPECIFIED JOINT [place] PAIN IN RIGHT HIP Active [place] NAUSEA WITH Active VOMITING, [place] UNSPECIFIED Medications Medication Details Route Status Patient Ordering Order Source Instructions Provider Date Adult Parenteral 2,050 mL, Inactive Nutrition Standard Rate: 83.3 2019 [facility] ([facility]) ml/hr, Infuse 2,050 mL over: 24.6 hr, Dosing Weight 98.636, kg, Route: IV, Total Volume: 2,050 mL, Start Date: 11/28/18 22:00:00 CREDIT REVIEW ANALYST, Duration: 24 hr, Stop date: 11/29/18 21:59:00 CREDIT REVIEW ANALYST, Replace Every: 24 hr Cathflo Activase 2 2 mg, 2 mL, Inactive mg injection Route: INJ, 2018 Drug form: INJ, ONCE, Dosing Weight 98.636, kg, Start date: 11/28/18 17:56:00 CREDIT REVIEW ANALYST, Stop date: 11/28/18 17:56:00 CREDIT REVIEW ANALYST, Occluded CVAD >/=7 FrenchNotes: "Syringe for catheter clearance or interventional radiology use. Reconstitute each vial of Cathflo Activase with 2.2 ml Sterile Water resulting in a 1 mg/ml solution. (Same as: Activase) MEDICATION WASTE Product Size: 2 mg Product Wasted: ___ mg doxycycline 100 mg=1 cap, Active hyclate 100 MG PO, [id number], X 2019 [facility] Oral Capsule 11 day, # 22 cap, 0 Refill(s), Pharmacy: [facility] [id number] Ranitidine 150 MG 150 mg, PO, Active Oral Tablet BID, 4tabs of 2019 [facility] 150mg each tab, in a.m. 4 tabs in afternoon, # 240 tab, 0 Refill(s), Pharmacy: [facility] [id number] sucralfate 1 g 1 gm=1 tab, Active oral tablet PO, QID-Before 2019 [facility] Meals, # 120 tab, 0 Refill(s), Pharmacy: [facility] [id number] Phenergan 25 mg 25 mg=1 tab, Active oral tablet PO, Q6H, PRN 2019 [facility] Nausea, # 30 tab, 0 Refill(s), Pharmacy: [facility] [id number] Phenergan + Sodium 25 mg, 1 mL, Inactive Chloride 0.9% IV Route: IVPB, 2019 [facility] 50 mL Q4H, PRN Nausea & Vomiting, Start date: 11/28/18 10:47:00 CREDIT REVIEW ANALYST, Duration: 30 day, Stop date: 12/28/18 10:46:00 CREDIT REVIEW ANALYST Adult Parenteral 2,050 mL, No Longer Nutrition Standard Rate: 83.3 Active 2018 [facility] (TPN) ml/hr, Infuse 2,050 mL over: 24.6 hr, Dosing Weight 92.443, kg, Route: IV, Total Volume: 2,050 mL, Start Date: 11/27/18 22:00:00 CREDIT REVIEW ANALYST, Duration: 24 hr, Stop date: 11/28/18 21:59:00 CREDIT REVIEW ANALYST, Replace Every: 24.6 hrNotes: Central line only Must use 0.22 micron filter Adult Parenteral 2,050 mL, No Longer Nutrition Standard Rate: 83.3 Active 2018 [facility] - [facility] (TPN) ml/hr, Infuse 2,050 mL over: 24.6 hr, Dosing Weight 92.443, kg, Route: IV, Total Volume: 2,050 mL, Start Date: 11/26/18 22:00:00 CREDIT REVIEW ANALYST, Duration: 24 hr, Stop date: 11/27/18 21:59:00 CREDIT REVIEW ANALYST, Replace Every: 24.6 hrNotes: Central line only Must use 0.22 micron filter Valium 10 mg, 2 tab, No Longer Route: PO, Active 2018 [facility] Drug form: TAB, Bedtime, Dosing Weight 92.443, kg, Start date: 11/26/18 21:00:00 CREDIT REVIEW ANALYST, Duration: 30 day, Stop date: 12/25/18 21:00:00 CSTNotes: (Same as: Valium) Imodium A-D 2 mg, 1 cap, No Longer Route: PO, Active 2018 [facility] Drug form: CAP, Q6H, Dosing Weight 92.443, kg, PRN Diarrhea, Start date: 11/26/18 20:47:00 CREDIT REVIEW ANALYST, Duration: 30 day, Stop date: 12/26/18 20:46:00 CSTNotes: (Same as: Imodium) MAX adult dose is 8 caps/day Promethazine 25 mg, 1 mL, No Longer Route: IV Active 2018 [facility] Central, Q4H, Dosing Weight 92.443, kg, PRN Nausea & Vomiting, Start date: 11/26/18 20:47:00 CREDIT REVIEW ANALYST, Duration: 30 day, Stop date: 12/26/18 20:46:00 CSTNotes: Do not give IV push. (Same as: Phenergan) Doxycycline 100 mg, 2 cap, No Longer Route: PO, 2018 [facility] Drug form: CAP, [id number], Dosing Weight 92.443, kg, Start date: 11/26/18 12:00:00 CREDIT REVIEW ANALYST, Duration: 14 day, Stop date: 12/10/18 6:00:00 CSTNotes: (Same as: Vibramycin) No milk/antacids/ iron. Take 1 hour before or 2 hours after dairy products Omnipaque 300 100 mL, Route: Inactive injectable IVP, Drug 2018 [facility] solution Form: SOLN, Dosing Weight 92.443, kg, ONCALL, GFR > 45 mL/min, Start date: 11/26/18 12:00:00 CREDIT REVIEW ANALYST, Duration: 1 doses or timesNotes: (Same as:Omnipaque 300). WASTE: F/P - Black; E - Municipal Trash Bin Valium 10 mg, 2 tab, Inactive Route: PO, 2018 [facility] Drug form: TAB, Bedtime, Dosing Weight 92.443, kg, PRN Sleep, Start date: 11/26/18 4:41:00 CREDIT REVIEW ANALYST, Duration: 30 day, Stop date: 12/26/18 4:40:00 CSTNotes: (Same as: Valium) Adult Parenteral 2,050 mL, No Longer Nutrition Standard Rate: 83.3 Active 2018 [facility] (TPN) ml/hr, Infuse 2,050 mL over: 24.6 hr, Dosing Weight 92.443, kg, Route: IV, Total Volume: 2,050 mL, Start Date: 11/25/18 22:00:00 CREDIT REVIEW ANALYST, Duration: 24 hr, Stop date: 11/26/18 21:59:00 CREDIT REVIEW ANALYST, Replace Every: 24 hr Ferrlecit 125 mg, 10 mL, Inactive Route: IVPB, 2018 [facility] ONCE, Dosing Weight 92.443, kg, Start date: 11/25/18 7:41:00 CREDIT REVIEW ANALYST, Stop date: 11/25/18 7:41:00 CSTNotes: (sodium ferric gluconate complex (elemental iron) 62.5 mg/5 ml INJ) "Limited stability. Use immediately after admixture" (Same as: Ferrlecit) MEDICATION WASTE Product Size: 62.5 mg Product Wasted: ___ mg acetaminophen 160 10 mg/kg, Inactive mg/5 mL oral Route: PO, 2018 [facility] liquid Drug form: LIQ, Q6H, Dosing Weight 92.443, kg, PRN Pain Score 1-3, Start date: 11/25/18 7:11:00 CREDIT REVIEW ANALYST, Duration: 30 day, Stop date: 12/25/18 7:10:00 CREDIT REVIEW ANALYST, Pediatric Dosing Adult Parenteral 1 mL, Rate: Inactive Nutrition Standard Titrate, 2018 [facility] (TP[facility]) 1 Dosing Weight mL 92.443, kg, Route: IV, Total Volume: 1 mL, Start Date: 11/24/18 22:00:00 CREDIT REVIEW ANALYST, Duration: 24 hr, Stop date: 11/25/18 21:59:00 CREDIT REVIEW ANALYST, Replace Every: 24 hr Adult Parenteral 2,050 mL, No Longer Nutrition Standard Rate: 83.3 Active 2018 [facility] ([facility]) ml/hr, Infuse 2,050 mL over: 24.6 hr, Dosing Weight 92.443, kg, Route: IV, Total Volume: 2,050 mL, Start Date: 11/24/18 22:00:00 CREDIT REVIEW ANALYST, Duration: 24 hr, Stop date: 11/25/18 21:59:00 CREDIT REVIEW ANALYST, Replace Every: 24.6 hrNotes: Central line only Must use 0.22 micron filter Miralax 17 gm, 1 pkt, Inactive Route: PO, 2018 [facility] Drug form: PWDR, ONCE, Dosing Weight 92.443, kg, Start date: 11/24/18 20:00:00 CREDIT REVIEW ANALYST, Stop date: 11/24/18 20:00:00 CSTNotes: Dissolve in 8 oz of water or juice. (Same as: Miralax) Sucralfate 1 gm, 1 tab, No Longer Route: PO, Active 2018 [facility] Drug form: TAB, QID-Before Meals, Dosing Weight 92.443, kg, Start date: 11/24/18 16:30:00 CREDIT REVIEW ANALYST, Duration: 30 day, Stop date: 12/24/18 11:30:00 CREDIT REVIEW ANALYST MiraLax 17 gm, 1 pkt, No Longer Route: PO, Active 2018 [facility] Drug form: PWDR, ONCALL, PRN Bowel Movements, Start date: 11/24/18 14:00:00 CREDIT REVIEW ANALYST, Duration: 1 doses or times, Stop date: Limited # of times Sodium Chloride 1,000 mL, Inactive 0.9% IV 1,000 mL Rate: 2018 ml/hr, Infuse over: 40 hr, Route: IV, Dosing Weight 92.443 kg, Total Volume: 1,000, Start date: 11/24/18 13:19:00 CREDIT REVIEW ANALYST, Duration: 1 day, Stop date: 11/25/18 13:18:00 CREDIT REVIEW ANALYST, 2.1, m2 Oxymetazoline 2 spray, No Longer hydrochloride 0.5 Route: NASAL, Active 2018 [facility] MG/ML Nasal [place] Q12H, Drug [Afrin] form: SPRY, PRN Nasal Congestion, Priority: STAT, Start date: 11/24/18 12:21:00 CREDIT REVIEW ANALYST, Duration: 3 day, Stop date: 11/27/18 12:20:00 CSTNotes: (Same as: Afrin) Thiamine 100 mg, 1 mL, Inactive Route: IVP, 2019 [facility] Drug form: INJ, Daily, Dosing Weight 92.443, kg, Start date: 11/24/18 12:00:00 CREDIT REVIEW ANALYST, Duration: 1 doses or times, Stop date: 11/24/18 12:00:00 CSTNotes: (Same As: Vitamin B1) Dextrose 50% 25 mL, Route: Inactive Syringe IVP, Dosing 2018 [facility] Weight 92.443, kg, PRN, PRN Blood Glucose Results, Start date: 11/24/18 10:55:00 CREDIT REVIEW ANALYST, Duration: 30 day, Stop date: 12/24/18 10:54:00 CREDIT REVIEW ANALYST Glucagon 1 mg, Route: Inactive IM, PRN, 2018 [facility] Dosing Weight 92.443, kg, PRN Blood Glucose Results, Start date: 11/24/18 10:55:00 CREDIT REVIEW ANALYST, Duration: 30 day, Stop date: 12/24/18 10:54:00 CREDIT REVIEW ANALYST Insulin Lispro 5 unit, 0.05 No Longer mL, Route: Active 2018 [facility] SUB-Q, Drug form: SOLN, Sliding Scale, Dosing Weight 92.443, kg, PRN Blood Glucose Results, Start date: 11/24/18 10:17:00 CREDIT REVIEW ANALYST, Duration: 30 day, Stop date: 12/24/18 10:16:00 CSTNotes: (Same as: Humalog ) Roll in palms of hands gently; Do not shake `vigorously. "Single Patient Use Only " WASTE: F/P - Black; E - Municipal Trash Bin Stable for 28 days at room temperature. Expires in days from Date Glucagon 1 mg, Route: No Longer IM, Drug form: Active 2018 [facility] PDR/INJ, PRN, Dosing Weight 92.443, kg, PRN Blood Glucose Results, Start date: 11/24/18 10:17:00 CREDIT REVIEW ANALYST, Duration: 30 day, Stop date: 12/24/18 10:16:00 CREDIT REVIEW ANALYST Dextrose 50% 25 gm, 50 mL, No Longer Syringe Route: IVP, Active 2018 [facility] Drug Form: INJ, Dosing Weight 92.443, kg, PRN, PRN Blood Glucose Results, Start date: 11/24/18 10:17:00 CREDIT REVIEW ANALYST, Duration: 30 day, Stop date: 12/24/18 10:16:00 CREDIT REVIEW ANALYST Dilaudid 1 mg, 1 mL, No Longer Route: IV, Active 2018 [facility] Drug form: SOLN, Q4H, Dosing Weight 92.443, kg, PRN Pain Score 6-10, Start date: 11/24/18 10:13:00 CREDIT REVIEW ANALYST, Duration: 30 day, Stop date: 12/24/18 10:12:00 CSTNotes: (Same as: Dilaudid) Miralax 17 gm, 1 pkt, Inactive Route: PO, 2018 [facility] Drug form: PWDR, ONCE, Dosing Weight 92.443, kg, Start date: 11/24/18 10:06:00 CREDIT REVIEW ANALYST, Stop date: 11/24/18 10:06:00 CSTNotes: Dissolve in 8 oz of water or juice. (Same as: Miralax) Potassium Chloride 20 mEq, 100 Inactive mL, Route: IV, 2018 [facility] Drug form: INJ, ONCE, Dosing Weight 92.443, kg, Start date: 11/24/18 10:06:00 CREDIT REVIEW ANALYST, Stop date: 11/24/18 10:06:00 CSTNotes: (Same as: KCL) Infuse no faster than 10 mEq/hr if given peripherally. Amlodipine 10 mg, 2 tab, No Longer Route: PO, Active 2018 [facility] Drug form: TAB, Daily, Dosing Weight 92.443, kg, Start date: 11/24/18 9:00:00 CREDIT REVIEW ANALYST, Duration: 30 day, Stop date: 12/23/18 9:00:00 CSTNotes: (Same as: Norvasc) Thiamine 100 mg, 1 tab, Inactive Route: PO, 2018 [facility] Drug form: TAB, Daily, Dosing Weight 92.443, kg, Start date: 11/24/18 9:00:00 CREDIT REVIEW ANALYST, Duration: 30 day, Stop date: 12/23/18 9:00:00 CSTNotes: (Same As: Vitamin B1) Folic Acid 1 mg, 1 tab, Inactive Route: PO, 2018 [facility] Drug form: TAB, Daily, Dosing Weight 92.443, kg, Start date: 11/24/18 9:00:00 CREDIT REVIEW ANALYST, Duration: 30 day, Stop date: 12/23/18 9:00:00 CSTNotes: (Same as: Folvite) duloxetine 60 mg, 2 cap, No Longer Route: PO, Active 2018 [facility] Drug form: DRC, Daily, Dosing Weight 92.443, kg, Start date: 11/24/18 9:00:00 CREDIT REVIEW ANALYST, Duration: 30 day, Stop date: 12/23/18 9:00:00 CSTNotes: (Same as: Cymbalta) (Do Not Crush) Famotidine 20 mg, 2 mL, No Longer Route: IVP, 2018 [facility] Drug form: INJ, Q12H, Dosing Weight 92.443, kg, Start date: 11/23/18 21:00:00 CREDIT REVIEW ANALYST, Duration: 30 day, Stop date: 12/23/18 9:00:00 CSTNotes: (Same as: Pepcid) Can be dilute in 5-10cc NS IVP: Slow IV push over at least 2 minutes. Dilaudid 0.5 mg, 0.5 No Longer mL, Route: Active 2018 [facility] IVP, Drug form: SOLN, Q2H, Dosing Weight 92.443, kg, PRN Pain Score 6-10, Priority: Routine, Start date: 11/23/18 18:40:00 CREDIT REVIEW ANALYST, Duration: 30 day, Stop date: 12/23/18 18:39:00 CSTNotes: (Same as: Dilaudid) Docusate 100 mg, 1 cap, No Longer Route: PO, Active 2018 [facility] Drug form: CAP, BID, Dosing Weight 80.136, kg, Start date: 11/23/18 17:00:00 CREDIT REVIEW ANALYST, Duration: 30 day, Stop date: 12/23/18 9:00:00 CSTNotes: (Same as: Colace) (Do Not Crush) Acetaminophen 325 1 tab, Route: No Longer MG / Hydrocodone PO, Drug Form: Active 2018 [facility] Bitartrate 10 MG TAB, Dosing Oral Tablet [[place]field Weight 92.443, 10/325] kg, Q6H, PRN Pain Score 4-6, Start date: 11/23/18 16:52:00 CREDIT REVIEW ANALYST, Duration: 30 day, Stop date: 12/23/18 16:51:00 CSTNotes: Do not exceed 4gm/day of acetaminophen. (Same as: Garfield 325/10) Promethazine 12.5 mg, 0.5 No Longer mL, Route: Active 2018 [facility] IVPB, Q4H, Dosing Weight 92.443, kg, PRN Nausea & Vomiting, Start date: 11/23/18 16:52:00 CREDIT REVIEW ANALYST, Duration: 30 day, Stop date: 12/23/18 16:51:00 CSTNotes: Do not give IV push. (Same as: Phenergan) D5NS 1000 mL 1,000 mL, No Longer Rate: 75 Active 2018 [facility] ml/hr, Infuse over: 13.3 hr, Route: IV, Dosing Weight 92.443 kg, Total Volume: 1,000, Start date: 11/23/18 16:48:00 CREDIT REVIEW ANALYST, Stop date: 11/24/18 21:59:00 CREDIT REVIEW ANALYST, 2.1, m2 *Please update *Please update Inactive height/weight/samaria height/weight/ 2019 [facility] rgies on profile* allergies on profile*, ATTN:CAROLANN, Drug form: MISC, Route: MISC, Q15Min, 11/23/18 16:30:00 CREDIT REVIEW ANALYST, Duration: 5 hr, Stop date: 11/23/18 21:15:00 CREDIT REVIEW ANALYST Glucagon 1 mg, Route: No Longer IM, Drug form: Active 2018 [facility] PDR/INJ, PRN, Dosing Weight 80.136, kg, PRN Blood Glucose Results, Start date: 11/23/18 16:23:00 CREDIT REVIEW ANALYST, Duration: 30 day, Stop date: 12/23/18 16:22:00 CREDIT REVIEW ANALYST Dextrose 50% 12.5 gm, 25 No Longer Syringe mL, Route: Active 2018 [facility] IVP, Drug Form: INJ, Dosing Weight 80.136, kg, PRN, PRN Blood Glucose Results, Start date: 11/23/18 16:23:00 CREDIT REVIEW ANALYST, Duration: 30 day, Stop date: 12/23/18 16:22:00 CREDIT REVIEW ANALYST Ondansetron 4 mg, 2 mL, No Longer Route: IVP, Active 2018 [facility] Drug form: INJ, Q8H, Dosing Weight 80.136, kg, PRN Nausea & Vomiting, Start date: 11/23/18 16:23:00 CREDIT REVIEW ANALYST, Duration: 30 day, Stop date: 12/23/18 16:22:00 CSTNotes: (Same as: Magen) MEDICATION WASTE Product Size: 4 mg Product Wasted: ___ mg bisacodyl 5 mg 15 mg=3 tab, Active oral enteric PO, Every 2018 [facility] coated tablet Other Day, PRN Constipation, # 20 tab, 0 Refill(s) DULoxetine 60 mg 60 mg=1 cap, Active oral delayed PO, Daily, # 2019 [facility] release capsule 30 cap, 0 Refill(s) Amphetamine 20 mg=1 tab, Active aspartate 5 MG / PO, QAM, 2019 [facility] Amphetamine extended Sulfate 5 MG / release, 0 Dextroamphetamine Refill(s) saccharate 5 MG / Dextroamphetamine Sulfate 5 MG Oral Tablet [Adderall] Mucinex DM See Inactive Instructions, 2018 [facility] 1 tab PO 1 hr before and 1 hr after methotrexate every wednesday, 0 Refill(s) spironolactone 25 25 mg=1 tab, No Longer mg oral tablet PO, BID, # 60 Active 2018 [facility] tab, 0 Refill(s) Furosemide 20 MG 20 mg=1 tab, No Longer Oral Tablet PO, Daily, # Active 2019 [facility] 30 tab, 0 Refill(s) Ranitidine 150 mg, PO, No Longer BID, 4tabs of Active 2018 [facility] 150mg each tab, in a.m. 4 tabs in afternoon, 0 Refill(s) Physical Therapy See Active Instructions, 2015 [facility] MISC, ONCALL, Evaluate and Treat _3__ times per week for __6__ weeks, # 18 ea, 0 Refill(s) naproxen 500 mg 500 mg=1 tab, Active oral tablet PO, BID, PRN 2015 [facility] Pain, Take with food as needed for hip pain, X 30 day, # 60 tab, 0 Refill(s) Methotrexate 5 mg, 2 tab, Inactive Route: PO, 2015 [facility] Drug form: TAB, QTue, Dosing Weight 80.136, kg, Start date: 10/06/16 9:00:00 CREDIT REVIEW ANALYST, Duration: 30 day, Stop date: 11/03/16 9:00:00 CSTNotes: (Same as:Methotrexat e Sodium) Chemotherapy agent/Handle with caution WASTE: F/P - Black; E - Yellow Lactulose 20 gm, 30 ml, Inactive Route: PO, 2015 [facility] Drug Form: SYRP, Dosing Weight 80.136, kg, ONCE, NOW, Start date: 10/05/16 9:47:00 CREDIT REVIEW ANALYST, Stop date: 10/05/16 9:47:00 CSTNotes: (Same as:Chronulac) Acetaminophen 325 1 tab, Route: No Longer MG / Hydrocodone PO, Drug Form: Active 2015 [facility] Bitartrate 10 MG TAB, Dosing Oral Tablet [[place]field Weight 80.136, 10/325] kg, Q6H, PRN Pain Score 7-10, Start date: 10/05/16 8:01:00 CREDIT REVIEW ANALYST, Duration: 30 day, Stop date: 11/04/16 8:00:00 CSTNotes: Do not exceed 4gm/day of acetaminophen. (Same as: Garfield 325/10) Temazepam 15 mg, 1 cap, No Longer Route: PO, Active 2015 [facility] Drug form: CAP, Bedtime, Dosing Weight 80.136, kg, PRN Sleep, Start date: 10/04/16 9:48:00 CREDIT REVIEW ANALYST, Duration: 30 day, Stop date: 11/03/16 9:47:00 CSTNotes: (Same As: Restoril) Mobic 15 mg, 2 tab, No Longer Route: PO, Active 2015 [facility] Drug form: TAB, Daily, Start date: 10/04/16 9:01:00 CREDIT REVIEW ANALYST, Duration: 30 day, Stop date: 11/03/16 9:00:00 CSTNotes: (Same as: Mobic) Lexapro 20 mg, 2 tab, No Longer Route: PO, Active 2015 [facility] Drug form: TAB, Daily, Dosing Weight 80.136, kg, Start date: 10/04/16 9:00:00 CREDIT REVIEW ANALYST, Duration: 30 day, Stop date: 11/02/16 9:00:00 CSTNotes: (Same as: Lexapro) ZyrTEC 10 mg, 2 tab, No Longer Route: PO, Active 2015 [facility] Drug form: TAB, Daily, Start date: 10/04/16 9:00:00 CREDIT REVIEW ANALYST, Duration: 30 day, Stop date: 11/02/16 9:00:00 CSTNotes: (Same As: Zyrtec) Vitamin A 800 mg, Route: No Longer PO, Daily, Active 2015 [facility] Dosing Weight 80.136, kg, Start date: 10/04/16 9:00:00 CREDIT REVIEW ANALYST, Duration: 30 day, Stop date: 11/02/16 9:00:00 CREDIT REVIEW ANALYST tamsulosin 0.4 mg, 1 cap, No Longer Route: PO, Active 2015 [facility] Drug form: CAP, Daily, Dosing Weight 80.136, kg, Start date: 10/04/16 9:00:00 CREDIT REVIEW ANALYST, Duration: 30 day, Stop date: 11/02/16 9:00:00 CSTNotes: (Same As: Flomax) "Do Not Crush" meloxicam 15 mg, 1 tab, Inactive Route: PO, 2015 [facility] Drug form: TAB, Daily, Dosing Weight 80.136, kg, Start date: 10/04/16 9:00:00 CREDIT REVIEW ANALYST, Duration: 30 day, Stop date: 11/02/16 9:00:00 CSTNotes: (Same as: Mobic) Folic Acid 1 mg, 1 tab, No Longer Route: PO, Active 2015 [facility] Drug form: TAB, Daily, Dosing Weight 80.136, kg, Start date: 10/04/16 9:00:00 CREDIT REVIEW ANALYST, Duration: 30 day, Stop date: 11/02/16 9:00:00 CSTNotes: (Same as: Folvite) Cetirizine 10 mg, 1 tab, Inactive Route: PO, 2015 [facility] Drug form: TAB, Daily, Dosing Weight 80.136, kg, Start date: 10/04/16 9:00:00 CREDIT REVIEW ANALYST, Duration: 30 day, Stop date: 11/02/16 9:00:00 CSTNotes: (Same As: Zyrtec) Amlodipine 10 mg, 2 tab, No Longer Route: PO, Active 2015 [facility] Drug form: TAB, Daily, Dosing Weight 80.136, kg, Start date: 10/04/16 9:00:00 CREDIT REVIEW ANALYST, Duration: 30 day, Stop date: 11/02/16 9:00:00 CSTNotes: (Same as: Norvasc) Fluticasone 2 spray, No Longer propionate 0.05 Route: NASAL, Active 2015 MG/ACTUAT Metered Drug Form: Dose Nasal [place] SPRY, Dosing [Flonase] Weight 80.136, kg, Daily, Start date: 10/04/16 9:00:00 CREDIT REVIEW ANALYST, Duration: 30 day, Stop date: 11/02/16 9:00:00 CSTNotes: (Same as: Flonase) Fluoxetine 40 mg, 4 cap, No Longer Route: PO, Active 2015 [facility] Drug form: CAP, Daily, Dosing Weight 80.136, kg, Start date: 10/04/16 9:00:00 CREDIT REVIEW ANALYST, Duration: 30 day, Stop date: 11/02/16 9:00:00 CSTNotes: (Same as: Prozac) potassium chloride 40 mEq, 2 tab, Inactive Route: PO, 2015 [facility] Drug form: ERTAB, ONCE, Dosing Weight 80.136, kg, Start date: 10/04/16 8:19:00 CREDIT REVIEW ANALYST, Stop date: 10/04/16 8:19:00 CSTNotes: (Same as: K-Dur 20) "Do Not Crush" With food and full glass of water Vancomycin 1,000 mg, Inactive Route: IVPB, 2015 [facility] ONCE, Dosing Weight 80.136, kg, Start date: 10/03/16 21:02:00 CREDIT REVIEW ANALYST, Stop date: 10/03/16 21:02:00 CSTNotes: TIME CRITICAL MEDICATION (Same As: Vancocin) Infusion rate 2001 mg: infuse over 2.5 hours MEDICATION WASTE Product Size: 1000 mg Product Wasted: ___ mg topiramate 100 mg, 1 tab, No Longer Route: PO, Active 2015 Drug form: TAB, BID, Dosing Weight 80.136, kg, Start date: 10/03/16 17:00:00 CREDIT REVIEW ANALYST, Duration: 30 day, Stop date: 11/02/16 9:00:00 CSTNotes: (Same As: Topamax) "Do Not Crush" Dicyclomine 20 mg, 1 tab, No Longer Route: PO, Active 2015 Drug form: TAB, QID, Dosing Weight 80.136, kg, Start date: 10/03/16 13:00:00 CREDIT REVIEW ANALYST, Duration: 30 day, Stop date: 11/02/16 9:00:00 CSTNotes: (Same as: Bentyl) Lidocaine topical Lidocaine No Longer spray 2% topical spray Active 2015 2%, 1 spray, Drug form: MISC, Route: TOP, TID, 10/03/16 13:00:00 CREDIT REVIEW ANALYST, Duration: 30 day, Stop date: 11/02/16 9:00:00 CREDIT REVIEW ANALYST Lidocaine 1 spray, Inactive Hydrochloride 20 Route: 2015 MG/ML Topical TID, Drug [place] form: SPRY, Start date: 10/03/16 13:00:00 CREDIT REVIEW ANALYST, Duration: 30 day, Stop date: 11/02/16 9:00:00 CREDIT REVIEW ANALYST Baclofen 10 mg, 1 tab, No Longer Route: PO, 2015 Drug form: TAB, TID, Dosing Weight 80.136, kg, Start date: 10/03/16 13:00:00 CREDIT REVIEW ANALYST, Duration: 30 day, Stop date: 11/02/16 9:00:00 CSTNotes: (Same As: Liestelitaal) Vitamin D3 50,000 No Longer IntlUnit, 1 Active 2015 cap, Route: PO, Drug form: CAP, qWeek, Dosing Weight 80.136, kg, Start date: 10/03/16 11:00:00 CREDIT REVIEW ANALYST, Duration: 30 day, Stop date: 10/31/16 9:00:00 CSTNotes: (Same as: Vitamin D3-50) Acetaminophen 325 1 tab, Route: No Longer MG / Hydrocodone PO, Drug Form: Active 2015 Bitartrate 5 MG TAB, Dosing Oral Tablet [[place] Weight 80.136, 5/325] kg, Q4H, PRN Pain Score 4-6, Start date: 10/03/16 10:09:00 CREDIT REVIEW ANALYST, Duration: 30 day, Stop date: 11/02/16 10:08:00 CSTNotes: (Same as: Garfield 325/5) Do not exceed 4gm/day of acetaminophen. Phenergan 12.5 mg, 0.5 No Longer mL, Route: 2015 [facility] IVPB, Q4H, Dosing Weight 80.136, kg, PRN Nausea & Vomiting, Start date: 10/03/16 10:08:00 CREDIT REVIEW ANALYST, Duration: 30 day, Stop date: 11/02/16 10:07:00 CSTNotes: Do not give IV push. (Same as: Phenergan) Zofran 4 mg, 2 mL, No Longer Route: IV, 2015 [facility] Drug form: INJ, Q8H, Dosing Weight 80.136, kg, PRN Nausea, Start date: 10/03/16 10:08:00 CREDIT REVIEW ANALYST, Duration: 30 day, Stop date: 11/02/16 10:07:00 CSTNotes: (Same as: Zofran) MEDICATION WASTE Product Size: 4 mg Product Wasted: ___ mg Docusate Sodium 100 mg, 1 cap, No Longer 100 MG Oral Route: PO, 2015 [facility] Capsule Drug form: CAP, BID, Dosing Weight 80.136, kg, Start date: 10/03/16 10:08:00 CREDIT REVIEW ANALYST, Duration: 30 day, Stop date: 11/02/16 9:00:00 CSTNotes: (Same as: Colace) (Do Not Crush) Acetaminophen 650 mg, 2 tab, No Longer Route: PO, 2015 [facility] Drug form: TAB, Q6H, Dosing Weight 80.136, kg, PRN Pain 1-3/Temp > 99.5 F, Start date: 10/03/16 10:08:00 CREDIT REVIEW ANALYST, Duration: 30 day, Stop date: 11/02/16 10:07:00 CSTNotes: Do not exceed 4 gm/day. (Same as: Tylenol) Mucinex 600 mg, 1 tab, No Longer Route: PO, 2015 [facility] Drug form: ERTAB, PRN, Dosing Weight 80.136, kg, PRN Other -See Comment, Before and after MTX dose, Start date: 10/03/16 10:00:00 CREDIT REVIEW ANALYST, Duration: 30 day, Stop date: 11/02/16 9:59:00 CSTNotes: (Same as: Guaifenesin LA, Humibid LA, Mucinex) "Do Not Crush" Take medication with plenty of water. Vitamin B12 1,000 No Longer microgram, 1 2015 [facility] mL, Route: IM, Drug form: INJ, qWeek, Dosing Weight 80.136, kg, Start date: 10/03/16 10:00:00 CREDIT REVIEW ANALYST, Duration: 30 day, Stop date: 10/31/16 9:00:00 CSTNotes: (Same As: Vitamin B12) Diazepam 10 mg, 2 tab, No Longer Route: PO, 2015 [facility] Drug form: TAB, ONCE, Dosing Weight 80.136, kg, PRN Insomnia, Start date: 10/03/16 9:59:00 CSTNotes: (Same as: Valium) Naproxen 500 mg, 2 tab, No Longer Route: PO, 2015 [facility] Drug form: TAB, [id number], Dosing Weight 80.045, kg, Start date: 10/03/16 5:00:00 CREDIT REVIEW ANALYST, Duration: 30 day, Stop date: 11/01/16 17:00:00 CSTNotes: (Same as: Naprosyn) Take with food. Dilaudid 1 mg, 1 mL, No Longer Route: IVP, 2015 [facility] Drug form: INJ, Q3H, Dosing Weight 80.045, kg, PRN Pain Score 7-10, Start date: 10/03/16 4:52:00 CREDIT REVIEW ANALYST, Duration: 30 day, Stop date: 11/02/16 4:51:00 CREDIT REVIEW ANALYST Saline Flush 0.9% 10 ml, Route: No Longer IVP, Drug 2015 [facility] Form: INJ, Dosing Weight 80.045, kg, PRN, PRN Line Flush, Start date: 10/03/16 4:52:00 CREDIT REVIEW ANALYST, Duration: 30 day, Stop date: 11/02/16 4:51:00 CSTNotes: (Same as: BD Posiflush) Lactated Ringers 1,000 mL, No Longer 1,000 mL Rate: 125 2015 [facility] ml/hr, Infuse over: 8 hr, Route: IV, Dosing Weight 80.045 kg, Total Volume: 1,000, Start date: 10/03/16 4:52:00 CREDIT REVIEW ANALYST, Duration: 30 day, Stop date: 11/02/16 4:51:00 CREDIT REVIEW ANALYST Ondansetron 4 mg, 2 mL, No Longer Route: IVP, 2015 Drug form: INJ, Q6H, Dosing Weight 80.045, kg, PRN Nausea & Vomiting, Start date: 10/03/16 4:52:00 CREDIT REVIEW ANALYST, Duration: 30 day, Stop date: 11/02/16 4:51:00 CSTNotes: (Same as: Zofran) MEDICATION WASTE Product Size: 4 mg Product Wasted: ___ mg Acetaminophen 325 mg, 1 tab, No Longer Route: PO, 2015 Drug form: TAB, Q4H, Dosing Weight 80.045, kg, PRN Pain Score 4-6, Start date: 10/03/16 4:52:00 CREDIT REVIEW ANALYST, Duration: 30 day, Stop date: 11/02/16 4:51:00 CSTNotes: Do not exceed 4 gm/day. (Same as: Tylenol) fat emulsion, IV, 31.25 No Longer intravenous 250 mL ml/hr, Start 2015 date: 09/25/16 22:00:00 CREDIT REVIEW ANALYST, Duration: 8, 250 ml, 80.045Notes: (Same as: Intralipid, Liposyn) Infuse through a 1.2 micron filter TPN, adult 2,050 mL, No Longer solution 2,050 mL Rate: 83 2015 ml/hr, Infuse over: 24.7 hr, Route: IVPB, Dosing Weight 80.045 kg, Total Volume: 2,050, Start date: 09/25/16 22:00:00 CREDIT REVIEW ANALYST, Duration: 1 day, Stop date: 09/26/16 21:59:00 CREDIT REVIEW ANALYST Diazepam 10 mg, 2 tab, No Longer Route: PO, Active 2015 [facility] Drug form: TAB, BID, Dosing Weight 80.045, kg, PRN Insomnia, Start date: 09/25/16 14:58:00 CREDIT REVIEW ANALYST, Duration: 30 day, Stop date: 10/25/16 14:57:00 CSTNotes: (Same as: Valium) ondansetron (ANES) Route: IV, Inactive Drug form: 2015 [facility] INJ, ONCE, Stop date: 09/25/16 13:30:00 CREDIT REVIEW ANALYST rocuronium (ANES) Route: IV, Inactive Drug form: 2015 [facility] INJ, ONCE, Stop date: 09/25/16 13:21:00 CREDIT REVIEW ANALYST propofol (ANES) Route: IV, Inactive Drug form: 2015 [facility] INJ, ONCE, Stop date: 09/25/16 13:17:00 CREDIT REVIEW ANALYST fentaNYL (ANES) Route: IV, Inactive Drug form: 2015 [facility] INJ, ONCE, Stop date: 09/25/16 13:15:00 CREDIT REVIEW ANALYST LR 1000 mL INJ Route: IV, Inactive (ANES) Total Volume: 2015 [facility] 1,000, Start date: 09/25/16 12:00:00 CREDIT REVIEW ANALYST, Stop date: 09/25/16 13:00:00 CREDIT REVIEW ANALYST Ofirmev 1,000 mg, 100 Inactive mL, Route: IV, 2015 [facility] Drug form: INJ, ONCE, Dosing Weight 80.045, kg, Start date: 09/25/16 10:16:00 CREDIT REVIEW ANALYST, Stop date: 09/25/16 10:16:00 CSTNotes: Infuse over 15 minutes Do not exceed 4gm/day of acetaminophen MEDICATION WASTE Product Size: 1000 mg Product Wasted: ___ mg Sodium Chloride 1,000 mL, Inactive 0.154 MEQ/ML Rate: 25 2015 [facility] Injectable ml/hr, Infuse Solution over: 40 hr, Route: IV, Dosing Weight 80.045 kg, Total Volume: 1,000, Start date: 09/25/16 9:47:00 CREDIT REVIEW ANALYST, Duration: 1 day, Stop date: 09/26/16 9:46:00 CREDIT REVIEW ANALYST Calcium Chloride 1,000 mL, Inactive 0.0014 MEQ/ML / Rate: 25 2015 [facility] Potassium Chloride ml/hr, Infuse 0.004 MEQ/ML / over: 40 hr, Sodium Chloride Route: IV, 0.103 MEQ/ML / Dosing Weight Sodium Lactate 80.045 kg, 0.028 MEQ/ML Total Volume: Injectable 1,000, Start Solution date: 09/25/16 9:47:00 CREDIT REVIEW ANALYST, Duration: 1 day, Stop date: 09/26/16 9:46:00 CREDIT REVIEW ANALYST TPN, adult 2,050 mL, No Longer solution 2,050 mL Rate: 83 2015 [facility] ml/hr, Infuse over: 24.7 hr, Route: IVPB, Dosing Weight 80.045 kg, Total Volume: 2,050, Start date: 09/24/16 22:00:00 CREDIT REVIEW ANALYST, Duration: 1 day, Stop date: 09/25/16 21:59:00 CREDIT REVIEW ANALYST Levaquin 500 mg, 100 No Longer mL, Route: IV, Active 2015 [facility] Drug form: SOLN, ONCALL, Dosing Weight 80.045, kg, Start date: 09/24/16 16:00:00 CSTNotes: (Same as:Levaquin) potassium chloride 20 mEq, 100 Inactive mL, Route: IV 2015 [facility] Central, Drug form: INJ, ONCE, Dosing Weight 80.045, kg, Start date: 09/24/16 10:23:00 CREDIT REVIEW ANALYST, Stop date: 09/24/16 10:23:00 CSTNotes: (Same as: KCL) Infuse no faster than 10 mEq/hr if given peripherally. heparin 5,000 unit, 1 No Longer mL, Route: Active 2015 [facility] SUB-Q, Drug form: INJ, Q12H, Dosing Weight 80.045, kg, Start date: 09/24/16 9:00:00 CREDIT REVIEW ANALYST, Duration: 30 day, Stop date: 10/23/16 21:00:00 CSTNotes: porcine heparin Folic Acid 1 mg, 1 tab, No Longer Route: PO, 2015 [facility] Drug form: TAB, Daily, Dosing Weight 80.045, kg, Start date: 09/24/16 9:00:00 CREDIT REVIEW ANALYST, Duration: 30 day, Stop date: 10/23/16 9:00:00 CSTNotes: (Same as: Folvite) Fluoxetine 40 mg, 4 cap, No Longer Route: PO, Active 2015 [facility] Drug form: CAP, Daily, Dosing Weight 80.045, kg, Start date: 09/24/16 9:00:00 CREDIT REVIEW ANALYST, Duration: 30 day, Stop date: 10/23/16 9:00:00 CSTNotes: (Same as: Prozac) Lexapro 20 mg, 2 tab, No Longer Route: PO, Active 2015 [facility] Drug form: TAB, Daily, Dosing Weight 80.045, kg, Start date: 09/24/16 9:00:00 CREDIT REVIEW ANALYST, Duration: 30 day, Stop date: 10/23/16 9:00:00 CSTNotes: (Same as: Lexapro) Cetirizine 10 mg, 2 tab, No Longer Route: PO, Active 2015 [facility] Drug form: TAB, Daily, Dosing Weight 80.045, kg, Start date: 09/24/16 9:00:00 CREDIT REVIEW ANALYST, Duration: 30 day, Stop date: 10/23/16 9:00:00 CSTNotes: (Same As: Zyrtec) Amlodipine 10 mg, 2 tab, No Longer Route: PO, Active 2015 [facility] Drug form: TAB, Daily, Dosing Weight 80.045, kg, Start date: 09/24/16 9:00:00 CREDIT REVIEW ANALYST, Duration: 30 day, Stop date: 10/23/16 9:00:00 CSTNotes: (Same as: Norvasc) tamsulosin 0.4 mg, 1 cap, No Longer Route: PO, Active 2015 [facility] Drug form: CAP, Daily, Dosing Weight 80.045, kg, Start date: 09/24/16 9:00:00 CREDIT REVIEW ANALYST, Duration: 30 day, Stop date: 10/23/16 9:00:00 CSTNotes: (Same As: Flomax) "Do Not Crush" Cefoxitin 1000 MG 2 gm, Route: Inactive Injection IV, [place], 2015 [facility] Dosing Weight 80.045, kg, PRN Other -See Comment, BODY LINER TO OR, Start date: 09/24/16 4:46:00 CREDIT REVIEW ANALYST, Duration: 30 day, Stop date: 10/24/16 4:45:00 CREDIT REVIEW ANALYST D5NS 1,000 mL 1,000 mL, No Longer Rate: 42 2015 [facility] ml/hr, Infuse over: 23.8 hr, Route: IV, Dosing Weight 80.045 kg, Total Volume: 1,000, Start date: 09/24/16 3:19:00 CREDIT REVIEW ANALYST, Duration: 30 day, Stop date: 10/24/16 3:18:00 CREDIT REVIEW ANALYST fat emulsion, IV, 31.25 No Longer intravenous 250 mL ml/hr, Start 2015 [facility] date: 09/23/16 22:00:00 CREDIT REVIEW ANALYST, Duration: 8, 250 ml, 80.045Notes: (Same as: Intralipid, Liposyn) Infuse through a 1.2 micron filter TPN, adult 2,050 mL, No Longer solution 2,050 mL Rate: 83 2015 [facility] ml/hr, Infuse over: 24.7 hr, Route: IVPB, Dosing Weight 80.045 kg, Total Volume: 2,050, Start date: 09/23/16 22:00:00 CREDIT REVIEW ANALYST, Duration: 1 day, Stop date: 09/24/16 21:59:00 CREDIT REVIEW ANALYST topiramate 100 mg, 1 tab, No Longer Route: PO, 2015 [facility] Drug form: TAB, BID, Dosing Weight 80.045, kg, Start date: 09/23/16 17:00:00 CREDIT REVIEW ANALYST, Duration: 30 day, Stop date: 10/23/16 9:00:00 CSTNotes: (Same As: Topamax) "Do Not Crush" Baclofen 10 mg, 1 tab, No Longer Route: PO, 2015 [facility] Drug form: TAB, TID, Dosing Weight 80.045, kg, Start date: 09/23/16 17:00:00 CREDIT REVIEW ANALYST, Duration: 30 day, Stop date: 10/23/16 13:00:00 CSTNotes: (Same As: Lioresal) Flonase 0.05 2 spray, No Longer mg/inh nasal spray Route: NASAL, 2015 [facility] Drug Form: SPRY, Dosing Weight 80.045, kg, Daily, PRN Other -See Comment, Start date: 09/23/16 16:29:00 CREDIT REVIEW ANALYST, Duration: 30 day, Stop date: 10/23/16 16:28:00 CSTNotes: (Same as: Kylee) Diazepam 10 mg, 2 tab, No Longer Route: PO, Active 2015 Drug form: TAB, ONCE, Dosing Weight 80.045, kg, PRN Insomnia, Start date: 09/23/16 16:15:00 CSTNotes: (Same as: Valium) Acetaminophen 24 15 ml, PO, Active MG/ML / Codeine Q4H, PRN Pain, 2015 Phosphate 2.4 0 Refill(s) MG/ML Oral Solution Phenergan 25 mg, PO, Active Q6H, PRN as 2015 needed for nausea/vomitin g, 0 Refill(s) dicyclomine 20 mg 20 mg=1 tab, Active oral tablet PO, QID, # 28 2015 tab, 0 Refill(s) Cetirizine 10 mg, PO, Active Daily, 0 2015 Refill(s) Folic Acid 1, PO, Daily, Active 0 Refill(s) 2015 12 HR Guaifenesin 600 mg=1 tab, Active 600 MG Extended PO, PRN, 2015 Release Tablet before and [Mucinex] after methotrexate dose, # 20 tab, 0 Refill(s) FLUoxetine 40 mg 40 mg=1 cap, Active oral capsule PO, Daily, # 2015 30 cap, 0 Refill(s) diazepam 10 mg 10 mg=1 tab, Active oral tablet PO, ONCE, PRN 2015 Insomnia, 0 Refill(s) Lidocaine 1 spray, TOP, Active Hydrochloride 20 TID, # 90 ml, 2015 MG/ML Topical 0 Refill(s) [place] Phenergan 12.5 mg, 0.5 No Longer mL, Route: Active 2015 IVPB, Q8H, Dosing Weight 80.045, kg, PRN Nausea & Vomiting, Start date: 09/23/16 12:43:00 CREDIT REVIEW ANALYST, Duration: 30 day, Stop date: 10/23/16 12:42:00 CSTNotes: Do not give IV push. (Same as: Phenergan) Streptococcus 0.5 mL, Route: Inactive pneumoniae IM, Drug Form: 2015 [facility] serotype 1 INJ, Daily, capsular antigen Start date: diphtheria [id number] 09/23/16 protein conjugate 9:00:00 CREDIT REVIEW ANALYST, vaccine / Duration: 1 Streptococcus doses or pneumoniae times, Stop serotype 14 date: 09/23/16 capsular antigen 9:00:00 diphtheria [id number] CSTNotes: protein conjugate Lightly roll vaccine / vial (DO NOT Streptococcus SHAKE) before pneumoniae administration serotype 18C . (Same as: capsular antigen d Prevnar 13) D5NS 1000 mL 1,000 mL, No Longer Rate: 125 Active 2015 [facility] ml/hr, Infuse over: 8 hr, Route: IV, Dosing Weight 80.045 kg, Total Volume: 1,000, Start date: 09/23/16 7:49:00 CREDIT REVIEW ANALYST, Duration: 30 day, Stop date: 10/23/16 7:48:00 CREDIT REVIEW ANALYST Ondansetron 4 mg, 2 mL, Inactive Route: IVP, 2015 Drug form: INJ, Q6H, Dosing Weight 80.045, kg, PRN Nausea & Vomiting, Start date: 09/23/16 3:38:00 CREDIT REVIEW ANALYST, Duration: 30 day, Stop date: 10/23/16 3:37:00 CSTNotes: (Same as: Zofran) MEDICATION WASTE Product Size: 4 mg Product Wasted: ___ mg Docusate 100 mg, 1 cap, No Longer Route: PO, Active 2015 [facility] Drug form: CAP, BID, Dosing Weight 80.045, kg, PRN Constipation, Start date: 09/23/16 3:38:00 CREDIT REVIEW ANALYST, Duration: 30 day, Stop date: 10/23/16 3:37:00 CSTNotes: (Same as: Colace) (Do Not Crush) Acetaminophen 325 2 tab, Route: No Longer MG / Hydrocodone PO, Drug Form: Active 2015 [facility] Bitartrate 5 MG TAB, Dosing Oral Tablet Weight 80.045, kg, Q4H, PRN Pain Score 7-10, Start date: 09/23/16 3:38:00 CREDIT REVIEW ANALYST, Duration: 30 day, Stop date: 10/23/16 3:37:00 CSTNotes: (Same as: [place] 325/5) Do not exceed 4gm/day of acetaminophen. Acetaminophen 650 mg, 20.3 No Longer mL, Route: PO, Active 2015 [facility] Drug form: LIQ, Q4H, Dosing Weight 80.045, kg, PRN Pain 1-3/Temp > 100.4 F, Start date: 09/23/16 3:38:00 CREDIT REVIEW ANALYST, Stop date: 10/23/16 3:37:00 CSTNotes: Max acetaminophen= 4000mg/day (4 gm/day). (Same as: Tylenol) Zofran 4 mg, 2 mL, Inactive Route: IVP, 2015 Drug form: INJ, Q4Hnow, Dosing Weight 80.045, kg, PRN Nausea, Start date: 09/23/16 3:33:00 CREDIT REVIEW ANALYST, Duration: 30 day, Stop date: 10/23/16 3:32:00 CSTNotes: (Same as: Zofran) MEDICATION WASTE Product Size: 4 mg Product Wasted: ___ mg D5NS 1,000 mL 1,000 mL, Inactive Rate: 150 2015 ml/hr, Infuse over: 6.7 hr, Route: IV, Dosing Weight 80.045 kg, Total Volume: 1,000, Start date: 09/23/16 3:31:00 CREDIT REVIEW ANALYST, Duration: 30 day, Stop date: 10/23/16 3:30:00 CREDIT REVIEW ANALYST Dilaudid 1 mg, 1 mL, No Longer Route: IVP, Active 2015 [facility] Drug form: INJ, Q4H, Dosing Weight 80.045, kg, PRN Pain Score 7-10, Start date: 09/23/16 3:00:00 CREDIT REVIEW ANALYST, Duration: 30 day, Stop date: 10/23/16 2:59:00 CREDIT REVIEW ANALYST TPN, adult 2,050 mL, Inactive solution 2,050 mL Rate: 83 2015 ml/hr, Infuse over: 24.7 hr, Route: IVPB, Dosing Weight 76.591 kg, Total Volume: 2,050, Start date: 09/11/16 22:00:00 CDT, Duration: 1 day, Stop date: 09/12/16 21:59:00 CDT fat emulsion, IV, 31.25 Inactive intravenous 250 mL ml/hr, Start 2015 date: 09/11/16 22:00:00 CDT, Duration: 8, 250 ml, 76.591Notes: (Same as: Intralipid, Liposyn) Infuse through a 1.2 micron filter TPN, adult 2,050 mL, Inactive solution 2,050 mL Rate: 83 2015 ml/hr, Infuse over: 24.7 hr, Route: IVPB, Dosing Weight 76.591 kg, Total Volume: 2,050, Start date: 09/11/16 14:39:00 CDT, Stop date: 09/11/16 21:59:00 CDTNotes: THIS IS 09/10-09/11 TPN [facility] - 2,050 mL, Inactive 2,050 mL Rate: 83 2015 ml/hr, Infuse over: 24.7 hr, Dosing Weight 76.591, kg, Route: IV, Total Volume: 2,050, Start Date: 09/10/16 22:00:00 CDT, Duration: 1 day, Stop date: 09/11/16 21:59:00 CDT, Replace Every: 24 hrNotes: Per hospital policy, bag must be changed every 24hr. TPN, adult 2,050 mL, No Longer solution 2,050 mL Rate: 83 2015 ml/hr, Infuse over: 24.7 hr, Route: IVPB, Dosing Weight 76.591 kg, Total Volume: 2,050, Start date: 09/10/16 22:00:00 CDT, Duration: 1 day, Stop date: 09/11/16 21:59:00 CDT Valium 10 mg, 2 tab, No Longer Route: PO, Active 2015 Drug form: TAB, Bedtime, Dosing Weight 76.591, kg, Start date: 09/10/16 21:00:00 CDT, Duration: 30 day, Stop date: 10/09/16 21:00:00 CSTNotes: (Same as: Valium) Imodium A-D 2 mg, 1 cap, No Longer Route: PO, 2015 [facility] Drug form: CAP, Q4H, Dosing Weight 76.591, kg, PRN as needed for loose stool, Start date: 09/10/16 15:41:00 CDT, Duration: 30 day, Stop date: 10/10/16 15:40:00 CSTNotes: (Same as: Imodium) MAX adult dose is 8 caps/day meloxicam 15 mg, 2 tab, No Longer Route: PO, 2015 [facility] Drug form: TAB, Daily, Dosing Weight 76.591, kg, Start date: 09/10/16 9:00:00 CDT, Duration: 30 day, Stop date: 10/09/16 9:00:00 CSTNotes: (Same as: Mobic) Lexapro 10 mg, 1 tab, No Longer Route: PO, 2015 [facility] Drug form: TAB, Daily, Dosing Weight 76.591, kg, Start date: 09/10/16 9:00:00 CDT, Duration: 30 day, Stop date: 10/09/16 9:00:00 CSTNotes: (Same as: Lexapro) Amlodipine 10 mg, 2 tab, No Longer Route: PO, 2015 Drug form: TAB, Daily, Dosing Weight 76.591, kg, Start date: 09/10/16 9:00:00 CDT, Duration: 30 day, Stop date: 10/09/16 9:00:00 CSTNotes: (Same as: Norvasc) fat emulsion, IV, 31.25 No Longer intravenous 250 mL ml/hr, Start 2015 [facility] date: 09/09/16 22:00:00 CDT, Duration: 8, 250 ml, 76.591Notes: (Same as: Intralipid, Liposyn) Infuse through a 1.2 micron filter TPN, adult 2,050 mL, No Longer solution 2,050 mL Rate: 83 2015 [facility] ml/hr, Infuse over: 24.7 hr, Route: IVPB, Dosing Weight 76.591 kg, Total Volume: 2,050, Start date: 09/09/16 22:00:00 CDT, Duration: 1 day, Stop date: 09/10/16 21:59:00 CDT Pepcid 20 mg, 2 mL, No Longer Route: IVP, [facility] 2015 [facility] Drug form: INJ, Q12H, Dosing Weight 76.591, kg, Start date: 09/09/16 21:00:00 CDT, Duration: 30 day, Stop date: 10/09/16 9:00:00 CSTNotes: (Same as: Pepcid) Can be dilute in 5-10cc NS IVP: Slow IV push over at least 2 minutes. Baclofen 10 mg, 1 tab, No Longer Route: PO, 2015 [facility] Drug form: TAB, TID, Dosing Weight 76.591, kg, Start date: 09/09/16 17:00:00 CDT, Duration: 30 day, Stop date: 10/09/16 13:00:00 CSTNotes: (Same As: Lioresal) topiramate 100 mg, 1 tab, No Longer Route: PO, [facility] 2015 [facility] Drug form: TAB, BID, Dosing Weight 76.591, kg, Start date: 09/09/16 17:00:00 CDT, Duration: 30 day, Stop date: 10/09/16 9:00:00 CSTNotes: (Same As: Topamax) "Do Not Crush" Dilaudid 0.5 mg, 0.5 No Longer mL, Route: IV, [facility] 2015 [facility] Drug form: INJ, Q3H, Dosing Weight 76.591, kg, PRN Pain Score 7-10, Start date: 09/09/16 13:47:00 CDT, Duration: 30 day, Stop date: 10/09/16 13:46:00 CREDIT REVIEW ANALYST Acetaminophen 20 10 mL, Route: No Longer MG/ML / PO, Drug Form: [facility] 2015 [facility] Hydrocodone SOLN, Dosing Bitartrate 0.667 Weight 76.591, MG/ML Oral kg, Q6H, PRN Solution Pain Score 4-6, Start date: 09/09/16 13:47:00 CDT, Duration: 30 day, Stop date: 10/09/16 13:46:00 CSTNotes: (Same as: [place] 325/7.5) Tylenol 650 mg, 20.3 No Longer mL, Route: PO, Active 2015 [facility] Drug form: LIQ, Q6H, Dosing Weight 76.591, kg, PRN Pain 1-3/Temp > 100.4 F, Start date: 09/09/16 13:47:00 CDT, Duration: 30 day, Stop date: 10/09/16 13:46:00 CSTNotes: Max acetaminophen= 4000mg/day (4 gm/day). (Same as: Tylenol) Thiamine 500 mg, 5 mL, Inactive Route: IVPB, 2015 ONCE, Dosing Weight 75, kg, Start date: 09/09/16 13:26:00 CDT, Stop date: 09/09/16 13:26:00 CDTNotes: (Same As: Vitamin B1) Sodium Chloride 1,000 mL, No Longer 0.154 MEQ/ML Rate: 75 Active 2015 Injectable ml/hr, Infuse Solution over: 13.3 hr, Route: IV, Dosing Weight 78.182 kg, Total Volume: 1,000, Start date: 09/09/16 11:59:00 CDT, Duration: 30 day, Stop date: 10/09/16 11:58:00 CREDIT REVIEW ANALYST Saline Flush 0.9% 10 ml, Route: No Longer IVP, Drug Active 2015 [facility] Form: INJ, Dosing Weight 78.182, kg, PRN, PRN Line Flush, Start date: 09/09/16 11:59:00 CDT, Duration: 30 day, Stop date: 10/09/16 10:58:00 CSTNotes: (Same as: BD Posiflush) Ondansetron 4 mg, 2 mL, No Longer Route: IVP, Active 2015 [facility] Drug form: INJ, Q6H, Dosing Weight 78.182, kg, PRN Nausea & Vomiting, Start date: 09/09/16 11:59:00 CDT, Duration: 30 day, Stop date: 10/09/16 11:58:00 CSTNotes: (Same as: Zofran) MEDICATION WASTE Product Size: 4 mg Product Wasted: ___ mg Ondansetron 4 mg, Route: Inactive IVP, Drug 2015 [facility] form: INJ, ONCE, Dosing Weight 78.182, kg, Start date: 08/31/16 9:39:00 CDT, Stop date: 08/31/16 9:39:00 CDT ondansetron (ANES) Route: IV, Inactive Drug form: 2015 [facility] INJ, ONCE, Stop date: 08/31/16 8:44:00 CDT diphenhydrAMINE Route: IV, Inactive (ANES) Drug form: 2015 [facility] INJ, ONCE, Stop date: 08/31/16 8:44:00 CDT rocuronium (ANES) Route: IV, Inactive Drug form: 2015 [facility] INJ, ONCE, Stop date: 08/31/16 8:38:00 CDT midazolam (ANES) Route: IV, Inactive Drug form: 2015 [facility] SOLN, ONCE, Stop date: 08/31/16 8:33:00 CDT fentaNYL (ANES) Route: IV, Inactive Drug form: 2015 [facility] INJ, ONCE, Stop date: 08/31/16 8:33:00 CDT propofol (ANES) Route: IV, Inactive Drug form: 2015 [facility] INJ, ONCE, Stop date: 08/31/16 8:33:00 CDT Albuterol 0.833 3 mL, Route: Inactive MG/ML / NEB, Dosing 2015 [facility] Ipratropium Weight 78.182, [place] 0.167 kg, ONCE, MG/ML Inhalant STAT, Start Solution date: 08/31/16 7:36:00 CDT, Stop date: 08/31/16 7:36:00 CDT Calcium Chloride 1,000 mL, Inactive 0.0014 MEQ/ML / Rate: 25 2015 [facility] Potassium Chloride ml/hr, Infuse 0.004 MEQ/ML / over: 40 hr, Sodium Chloride Route: IV, 0.103 MEQ/ML / Dosing Weight Sodium Lactate 78.182 kg, 0.028 MEQ/ML Total Volume: Injectable 1,000, Start Solution date: 08/31/16 7:36:00 CDT, Duration: 30 day, Stop date: 09/30/16 7:35:00 CREDIT REVIEW ANALYST Sodium Chloride 500 mL, Rate: Inactive 0.154 MEQ/ML 25 ml/hr, 2015 [facility] Injectable Infuse over: Solution 20 hr, Route: IV, Dosing Weight 78.182 kg, Total Volume: 500, Start date: 08/31/16 7:36:00 CDT, Duration: 30 day, Stop date: 09/30/16 7:35:00 CREDIT REVIEW ANALYST Baclofen PO, TID, 0 Active Refill(s) 2015 [facility] methylprednisone methylpredniso Active ne, See 2015 [facility] Instructions, Refill(s) 0 [place]-diureti [place]-diu Active c retic, 2015 [facility] Refill(s) 0 Vitamin B12 0 Refill(s) Active 2015 [facility] Vitamin D3 0 Refill(s) Active 2015 [facility] Vitamin A 0 Refill(s) Active 2015 [facility] Lexapro PO, Daily, 0 Active Refill(s) 2015 [facility] LR 1000 mL INJ Route: IV, Inactive (ANES) Total Volume: 2015 [facility] 1,000, Start date: 08/31/16 6:45:00 CDT, Stop date: 08/31/16 7:45:00 CDT Cefoxitin 2 gm, Route: Inactive IV, ONCE, 2014 [facility] Dosing Weight 84.091, kg, Start date: 09/17/15 13:32:00, Stop date: 09/17/15 13:32:00 heparin sodium, 5,000 unit, Inactive porcine 2500 Route: SUB-Q, 2014 [facility] UNT/ML Injectable Drug form: Solution INJ, ONCE, Dosing Weight 84.091, kg, Start date: 09/17/15 11:58:00, Stop date: 09/17/15 11:58:00 Calcium Chloride 1,000 mL, Inactive 0.0014 MEQ/ML / Rate: 25 2014 [facility] Potassium Chloride ml/hr, Infuse 0.004 MEQ/ML / over: 40 hr, Sodium Chloride Route: IV, 0.103 MEQ/ML / Dosing Weight Sodium Lactate 84.091 kg, 0.028 MEQ/ML Total Volume: Injectable 1,000, Start Solution date: 09/17/15 11:56:00, Duration: 30 day, Stop date: 10/17/15 11:55:00 Sodium Chloride 1,000 mL, Inactive 0.154 MEQ/ML Rate: 25 2014 [facility] Injectable ml/hr, Infuse Solution over: 40 hr, Route: IV, Dosing Weight 84.091 kg, Total Volume: 1,000, Start date: 09/17/15 11:56:00, Duration: 30 day, Stop date: 10/17/15 11:55:00 Claritin 10 mg, 1 tab, Inactive Route: PO, 2014 [facility] Drug form: TAB, Daily, Dosing Weight 84.744, kg, PRN Allergies, Start date: 08/26/15 13:46:00, Stop date: 09/26/15 13:45:00Notes: 1 hr before meals (Same as: Claritin) Protonix 40 mg, Route: No Longer IVP, Drug Active 2014 [facility] form: INJ, Daily, Dosing Weight 84.744, kg, Patient is NPO, Start date: 08/25/15 11:49:00, Duration: 30 day, Stop date: 09/24/15 9:00:00Notes: For IV push reconstitute with 10 ml 0.9% sodium chloride and push over 2 minutes. (Same as: Protonix) Sertraline 100 mg, 1 tab, No Longer Route: PO, Active 2014 [facility] Drug form: TAB, Daily, Dosing Weight 84.744, kg, Start date: 08/25/15 9:00:00, Duration: 30 day, Stop date: 09/23/15 9:00:00Notes: (Same as: Zoloft) Promethazine 25 mg, 1 mL, No Longer Route: IVPB, Active 2014 [facility] Q6H, Dosing Weight 84.744, kg, PRN Nausea & Vomiting, Start date: 08/24/15 20:45:00, Stop date: 09/23/15 20:44:00Notes: Do not give IV push. (Same as: Phenergan) Topamax 100 mg, 1 tab, No Longer Route: PO, Active 2014 [facility] Drug form: TAB, BID, Dosing Weight 84.744, kg, Start date: 08/24/15 18:00:00, Duration: 30 day, Stop date: 09/23/15 9:00:00Notes: (Same As: Topamax) "Do Not Crush" Phenergan PRN as needed Active for 2014 [facility] nausea/vomitin g, 0 Refill(s) Ondansetron 8 MG 8 mg=1 tab, Active Disintegrating PO, TID, PRN 2014 [facility] Tablet [Zofran] Nausea and Vomiting, Dissolve tab under tongue, # 10 tab, 0 Refill(s)Speci al Instructions: Dissolve tab under tongue Ativan 1 mg, 1 tab, No Longer Route: PO, Active 2014 [facility] Drug form: TAB, TID, Dosing Weight 81.364, kg, PRN Anxiety, Start date: 08/24/15 8:55:00, Duration: 30 day, Stop date: 09/23/15 8:54:00Notes: (Same as: Ativan) Benadryl 25 mg, 1 tab, No Longer Route: PO, Active 2014 [facility] Drug form: TAB, TID, Dosing Weight 81.364, kg, PRN Itching, Start date: 08/24/15 8:55:00, Duration: 30 day, Stop date: 09/23/15 8:54:00 NS 1,000 mL 1,000 mL, No Longer Rate: 100 Active 2014 [facility] ml/hr, Infuse over: 10 hr, Route: IV, Dosing Weight 81.364 kg, Total Volume: 1,000, Start date: 08/24/15 8:55:00, Duration: 30 day, Stop date: 09/23/15 8:54:00 Zofran 4 mg, 2 mL, Inactive Route: IVP, 2014 [facility] Drug form: INJ, Q8H, Dosing Weight 81.364, kg, PRN as needed for nausea/vomitin g, Priority: STAT, Start date: 08/24/15 8:55:00, Duration: 30 day, Stop date: 09/23/15 8:54:00Notes: (Same as: Zofran) MEDICATION WASTE Product Size: 4 mg Product Wasted: ___ mg Dilaudid 0.5 mg, 0.5 No Longer mL, Route: Active 2014 [facility] IVP, Drug form: INJ, Q3H, Dosing Weight 81.364, kg, PRN Pain Score 6-10, Priority: Routine, Start date: 08/24/15 8:54:00, Duration: 30 day, Stop date: 09/23/15 8:53:00 Phenergan 25 mg, Route: Inactive IVPB, ONCE, 2014 [facility] Dosing Weight 81.364, kg, Priority: STAT, Start date: 08/24/15 8:07:00, Stop date: 08/24/15 8:07:00 Dilaudid 1 mg, Route: Inactive IV, ONCE, 2014 [facility] Dosing Weight 81.364, kg, Start date: 08/24/15 8:06:00, Stop date: 08/24/15 8:06:00 Dilaudid 1 mg, Route: Inactive IVP, ONCE, 2014 [facility] Dosing Weight 81.364, kg, Priority: STAT, Start date: 08/24/15 3:08:00, Stop date: 08/24/15 3:08:00 Benadryl 50 mg, Route: Inactive IVP, ONCE, 2014 [facility] Dosing Weight 81.364, kg, Priority: STAT, Start date: 08/24/15 3:08:00, Stop date: 08/24/15 3:08:00 Phenergan 25 mg, Route: Inactive IM, ONCE, 2014 [facility] Dosing Weight 81.364, kg, Priority: STAT, Start date: 08/24/15 3:08:00, Stop date: 08/24/15 3:08:00 Gastrografin 50 mL, Route: No Longer PO, Drug Form: Active 2014 [facility] SOLN, Dosing Weight 81.364, kg, ONCE, PRN See Nurse's Notes, Start date: 08/24/15 1:35:00, Stop date: 09/23/15 1:34:00, just prior ct scanNotes: (Same as: Gastrografin) Sodium Chloride 1,000 mL, 1000 Inactive 0.154 MEQ/ML ml/hr, Infuse 2014 [facility] Injectable Over: 1 hr, Solution Route: IV, 1,000, Drug form: INJ, ONCE, Priority: STAT, Dosing Weight 81.364 kg, Start date: 08/24/15 1:09:00, Duration: 1 doses or times, Stop date: 08/24/15 1:09:00 Zofran 4 mg, 2 mL, Inactive Route: IVP, 2014 [facility] Drug form: INJ, ONCE, Dosing Weight 81.364, kg, Priority: STAT, Start date: 08/24/15 1:09:00, Stop date: 08/24/15 1:09:00Notes: (Same as: Zofran) MEDICATION WASTE Product Size: 4 mg Product Wasted: ___ mg Dilaudid 1 mg, 1 mL, Inactive Route: IVP, 2014 [facility] Drug form: INJ, ONCE, Dosing Weight 81.364, kg, Priority: STAT, Start date: 08/24/15 1:08:00, Stop date: 08/24/15 1:08:00 Ofirmev 1,000 mg, Inactive Route: IV, 2014 [facility] Drug form: INJ, ONCE, Dosing Weight 84.091, kg, PRN Pain Score 1-3, for > or=50 kg, Start date: 08/09/15 14:22:00 Dexamethasone 4 mg, Route: Inactive IVP, ONCE, 2014 [facility] Dosing Weight 84.091, kg, PRN Nausea & Vomiting, Start date: 08/09/15 14:20:00 Promethazine 6.25 mg, Inactive Route: IVPB, 2014 [facility] ONCE, Dosing Weight 84.091, kg, PRN Nausea & Vomiting, Start date: 08/09/15 14:20:00 Ondansetron 4 mg, Route: Inactive IVP, ONCE, 2014 [facility] Dosing Weight 84.091, kg, PRN Nausea & Vomiting, Start date: 08/09/15 14:20:00 Glycopyrrolate 0.2 mg, Route: Inactive IVP, Q5Min, 2014 [facility] Dosing Weight 84.091, kg, PRN Bradycardia, Start date: 08/09/15 14:20:00, Duration: 3 doses or times, Stop date: Limited # of times Diphenhydramine 12.5 mg, Inactive Route: IVP, 2014 [facility] Drug form: INJ, Q6H, Dosing Weight 84.091, kg, PRN Itching, Start date: 08/09/15 14:20:00, Duration: 30 day, Stop date: 09/08/15 14:19:00 Metoprolol 1 mg, Route: Inactive IVP, Q5Min, 2014 [facility] Dosing Weight 84.091, kg, PRN Other -See Comment, Start date: 08/09/15 14:20:00, Duration: 5 doses or times, Stop date: Limited # of times Hydralazine 10 mg, Route: Inactive IVP, Q20Min, 2014 [facility] Dosing Weight 84.091, kg, PRN Elevated BP, Start date: 08/09/15 14:20:00, Duration: 2 doses or times, Stop date: Limited # of times Fentanyl 25 microgram, Inactive Route: IVP, 2014 [facility] Q5Min, Dosing Weight 84.091, kg, PRN Pain Score 4-6, Start date: 08/09/15 14:20:00, Duration: 4 doses or times, Stop date: Limited # of times Flumazenil 0.2 mg, Route: Inactive IVP, PRN, 2014 [facility] Dosing Weight 84.091, kg, PRN Benzodiazepine Reversal, Initial dose, Start date: 08/09/15 14:20:00, Duration: 30 day, Stop date: 09/08/15 13:19:00 Oxycodone 5 mg, Route: Inactive PO, Drug form: 2014 TAB, Q4H, Dosing Weight 84.091, kg, PRN Pain Score 4-6, Start date: 08/09/15 14:20:00, Duration: 30 day, Stop date: 09/08/15 14:19:00 Hydromorphone 0.5 mg, Route: Inactive IVP, Q5Min, 2014 [facility] Dosing Weight 84.091, kg, PRN Pain Score 7-10, Start date: 08/09/15 14:20:00, Duration: 4 doses or times, Stop date: Limited # of times Ketorolac 30 mg, Route: Inactive IVP, ONCE, 2014 [facility] Dosing Weight 84.091, kg, Start date: 08/09/15 14:20:00, Duration: 1 doses or times, Stop date: 08/09/15 14:20:00 Naloxone 0.04 mg, Inactive Route: IVP, 2014 [facility] Q2MIN, Dosing Weight 84.091, kg, PRN Narcotic Reversal, Start date: 08/09/15 14:20:00, Duration: 8 doses or times, Stop date: Limited # of times Meperidine 12.5 mg, Inactive Route: IVP, 2014 [facility] Q30Min, Dosing Weight 84.091, kg, PRN Other -See Comment, For shivering, Start date: 08/09/15 14:20:00, Duration: 2 doses or times, Stop date: Limited # of times Morphine 2 mg, Route: Inactive IVP, Q5Min, 2014 [facility] Dosing Weight 84.091, kg, PRN Pain Score 4-6, Start date: 08/09/15 14:20:00, Duration: 5 doses or times, Stop date: Limited # of times Cefoxitin 2 gm, Route: Inactive IV, ONCE, 2014 [facility] Dosing Weight 84.091, kg, Start date: 08/09/15 12:22:00, Stop date: 08/09/15 12:22:00 heparin sodium, 5,000 unit, Inactive porcine 2500 Route: SUB-Q, 2014 [facility] UNT/ML Injectable Drug form: Solution INJ, ONCE, Dosing Weight 84.091, kg, Start date: 08/09/15 11:59:00, Stop date: 08/09/15 11:59:00 Calcium Chloride 1,000 mL, Inactive 0.0014 MEQ/ML / Rate: 25 2014 [facility] Potassium Chloride ml/hr, Infuse 0.004 MEQ/ML / over: 40 hr, Sodium Chloride Route: IV, 0.103 MEQ/ML / Dosing Weight Sodium Lactate 84.091 kg, 0.028 MEQ/ML Total Volume: Injectable 1,000, Start Solution date: 08/09/15 11:56:00, Duration: 30 day, Stop date: 09/08/15 11:55:00 LIDOCAINE VISCOUS 5ml swish and Active Medical 2 % SOLN swallow every 2014 [facility] 6-8 hours as needed for sore throat AUGMENTIN 875-125 1 tablet twice No Longer Medical MG TABS daily for 10 Active 2014 Group days MEDROL (CHAD) 4 MG Take as Active Medical TABS directed 2014 Group DIFLUCAN 150 MG 1 tablet x 1 No Longer Medical TABS dose now, Active 2014 Group repeat dose in 3 days MUPIROCIN 2 % OINT apply to Active Medical affected area 2014 Group three times daily as needed ZOFRAN 4 MG TABS 1-2 tablets No Longer Medical every 8 hours Active 2014 Group as needed for nausea/vomitin g POTASSIUM CHLORIDE 1 tablet daily Active Medical SOFYA ER 20 MEQ with lasix 2015 Group CR-TABS MEDROL (CHAD) 4 MG Take as No Longer Medical TABS directed Active 2014 Group TOPAMAX 100 MG 1 tab po daily Active Medical TABS 2014 Group POTASSIUM CHLORIDE 1 tablet daily Active Medical SOFYA ER 20 MEQ with lasix 2014 Group CR-TABS TOPAMAX 50 MG TABS 1/2 tab daily Active Medical x 1 week, then 2014 Group increase 1 tab daily POTASSIUM CHLORIDE 1 tablet daily Active Medical SOFYA ER 20 MEQ with lasix 2014 Group CR-TABS FUROSEMIDE 20 MG 1 tablet daily Active Medical TABS prn abdominal 2014 Group or leg swelling FUROSEMIDE 20 MG 1 tablet daily Active Medical TABS prn abdominal 2014 Group or leg swelling FUROSEMIDE 20 MG 1 tablet daily Active Medical TABS prn abdominal 2014 Group or leg swelling SERTRALINE HCL 100 1 tablet daily Active Medical MG TABS for mood 2014 Group SERTRALINE HCL 50 1 tab daily Active Medical MG TABS for mood 2014 Group SERTRALINE HCL 50 1 tab daily Active Medical MG TABS for mood 2014 Group VALIUM 5 MG TABS 1 tablet po Active Medical nightly as 2015 Group needed for sleep or muscle relaxers PREDNISONE 20 MG 2 tablets No Longer Medical TABS daily x 3 Active 2014 Group days, then 1 tablets daily X 3 days, then 1/2 tablet daily x 8 days, then stop and take 1/2 tab daily only as directed PREDNISONE 20 MG 2 tablets No Longer Medical TABS daily x 3 Active 2014 Group days, then 1 tablets daily X 3 days, then 1/2 tablet daily x 8 days, then stop and take 1/2 tab daily only as directed PREDNISONE 20 MG 2 tablets No Longer Medical TABS daily x 3 Active 2014 Group days, then 1 tablets daily X 3 days, then 1/2 tablet daily x 8 days, then stop and take 1/2 tab daily only as directed FUROSEMIDE 20 MG 1 tablet daily No Longer Medical TABS prn swelliing Active 2014 Group FUROSEMIDE 20 MG 1 tablet daily No Longer Medical TABS prn swelliing Active 2014 Group FUROSEMIDE 20 MG 1 tablet daily No Longer Medical TABS prn swelliing Active 2014 Group ESTAZOLAM 2 MG 1/2 -1 tab No Longer Medical TABS nightly prn Active 2014 Group insomnia TAMIFLU 75 MG CAPS 1 capsule No Longer Medical daily x 10 Active 2014 Group days for flu prophylaxis TAMIFLU 75 MG CAPS 1 capsule No Longer Medical daily x 10 Active 2014 Group days for flu prophylaxis CITALOPRAM 1 tablet daily Active Medical HYDROBROMIDE 10 MG 2014 Group TABS PROMETHAZINE HCL 1 tablet every No Longer Medical 25 MG TABS 8 hours as Active 2014 Group needed for nausea/vomitin g LUNESTA 3 MG TABS 1 tablet at No Longer Medical bedtime as Active 2014 Group needed for insomnia PROMETHAZINE HCL 1 tablet every No Longer Medical 25 MG TABS 8 hours as Active 2014 Group needed for nausea/vomitin g CITALOPRAM 1 tablet daily No Longer Medical HYDROBROMIDE 20 MG for mood Active 2014 Group TABS LUNESTA 3 MG TABS 1 tablet at No Longer Medical bedtime as Active 2014 Group needed for insomnia PROMETHAZINE HCL 1 tablet every No Longer Medical 25 MG TABS 8 hours as Active 2014 Group needed for nausea/vomitin g Ketorolac 15 mg, 1 mL, No Longer Tromethamine 15 Route: IV, Active 2014 MG/ML Injectable Drug form: Solution INJ, Q6H, Dosing Weight 90.909, kg, Start date: 11/29/14 18:00:00, Duration: 3 day, Stop date: 12/02/14 12:00:00Notes: (Same as:Toradol) IV bolus must be given >15 seconds. Give IM administration slowly and deeply into the muscle. Not for use > 4 days. Ketorolac 30 mg, 2 mL, Inactive Route: IV, 2014 [facility] Drug form: INJ, ONCE, Dosing Weight 90.909, kg, Start date: 11/29/14 12:48:00, Stop date: 11/29/14 12:48:00Notes: (Same as:Toradol) IV bolus must be given >15 seconds. Give IM administration slowly and deeply into the muscle. Not for use > 4 days. Dilaudid 1 mg, 1 mL, No Longer Route: IV, Active 2014 [facility] Drug form: INJ, Q3H, Dosing Weight 90.909, kg, PRN Pain Score 7-10, Start date: 11/29/14 11:41:00, Duration: 30 day, Stop date: 12/29/14 11:40:00 Prednisone 10 mg, Route: No Longer PO, Drug form: Active 2014 [facility] TAB, Daily, Dosing Weight 88.63, kg, Start date: 11/29/14 9:00:00, Duration: 30 day, Stop date: 12/28/14 9:00:00 pantoprazole 40 mg, Route: No Longer PO, Drug form: Active 2014 [facility] ECTAB, Daily, Dosing Weight 88.63, kg, Start date: 11/29/14 9:00:00, Duration: 30 day, Stop date: 12/28/14 9:00:00 Losartan 50 mg, 1 tab, Inactive Route: PO, 2014 Drug form: TAB, Daily, Dosing Weight 88.63, kg, Start date: 11/29/14 9:00:00, Duration: 30 day, Stop date: 12/28/14 9:00:00Notes: (Same as: Lorenaar) 24 HR Loratadine 1 tab, Route: No Longer 10 MG / PO, Drug Form: Active 2014 Pseudoephedrine ERTAB, Dosing sulfate 240 MG Weight 88.63, Extended Release kg, Daily, Tablet Start date: [Claritin-D] 11/29/14 9:00:00, Duration: 30 day, Stop date: 12/28/14 9:00:00 Lidocaine 1 patch, No Longer Hydrochloride 0.05 Route: TOP, Active 2014 MG/MG Transdermal Daily, Drug Patch form: FILM, Start date: 11/29/14 9:00:00, Duration: 30 day, Stop date: 12/28/14 9:00:00 Benadryl 25 mg, 0.5 mL, No Longer Route: IVP, Active 2014 Drug form: INJ, Q6H, Dosing Weight 90.909, kg, PRN Itching, Start date: 11/28/14 23:27:00, Duration: 30 day, Stop date: 12/28/14 23:26:00Notes: (Same as: Benadryl) Docusate Sodium 100 mg, 1 cap, Inactive 100 MG Oral Route: PO, 2014 Capsule [Colace] Drug form: CAP, BID, Dosing Weight 88.63, kg, Start date: 11/28/14 17:00:00, Duration: 30 day, Stop date: 12/28/14 9:00:00 Docusate 100 mg, 1 cap, No Longer Route: PO, Active 2014 Drug form: CAP, BID, Dosing Weight 88.63, kg, Start date: 11/28/14 17:00:00, Duration: 30 day, Stop date: 12/28/14 9:00:00Notes: (Same as: Colace) (Do Not Crush) Hydromorphone 15 mg, 30 mL, No Longer Route: IV, COPRA PROCESSOR Active 2014 Dose: 0.2 mg, COPRA PROCESSOR Lockout: 10 minutes, Continuous Basal Rate: 0 mg, 4 Hour Limit (In MG): 4.8, Drug Form: INJ, Continuous, Start date: 11/28/14 16:30:00, Duration: 30 day, Stop date: 12/28/14 16:29:00Notes: (Same as: Dilaudid) conc=0.5 mg/ml Hydromorphone COPRA PROCESSOR Dose: ;Delay: ;Basal: Naloxone 0.04 mg, 0.1 No Longer mL, Route: Active 2014 [facility] IVP, Drug form: INJ, Q2MIN, Dosing Weight 88.63, kg, PRN Narcotic Reversal, Start date: 11/28/14 16:01:00, Duration: 30 day, Stop date: 12/28/14 16:00:00Notes: Same as Narcan NS 1,000 mL 1,000 mL, No Longer Rate: 100 Active 2014 [facility] ml/hr, Infuse over: 10 hr, Route: IV, Dosing Weight 88.63 kg, Total Volume: 1,000, Start date: 11/28/14 15:53:00, Duration: 30 day, Stop date: 12/28/14 15:52:00 Dilaudid 1 mg, 1 mL, Inactive Route: IV, 2014 Drug form: INJ, Q3H, Dosing Weight 88.63, kg, PRN Pain Score 6-10, Start date: 11/28/14 13:59:00, Duration: 30 day, Stop date: 12/28/14 13:58:00 Sodium Chloride 1,000 mL, Inactive 0.154 MEQ/ML Rate: 75 2014 Injectable ml/hr, Infuse Solution over: 13.3 hr, Route: IV, Dosing Weight 88.63 kg, Total Volume: 1,000, Start date: 11/28/14 13:59:00, Duration: 30 day, Stop date: 12/28/14 13:58:00 Saline Flush 0.9% 10 ml, Route: No Longer IVP, Drug Active 2014 [facility] Form: INJ, Dosing Weight 88.63, kg, PRN, PRN Line Flush, Start date: 11/28/14 13:59:00, Duration: 30 day, Stop date: 12/28/14 13:58:00Notes: Same as: BD Posiflush Sterile Ondansetron 4 mg, 2 mL, No Longer Route: IVP, Active 2014 [facility] Drug form: INJ, Q6H, Dosing Weight 88.63, kg, PRN Nausea & Vomiting, Start date: 11/28/14 13:59:00, Duration: 30 day, Stop date: 12/28/14 13:58:00Notes: (Same as: Zofran) Acetaminophen 325 1 tab, Route: Inactive MG / Hydrocodone PO, Drug Form: 2014 Bitartrate 5 MG TAB, Dosing Oral Tablet Weight 88.63, kg, Q4H, PRN Pain Score 1-3, Start date: 11/28/14 13:59:00, Duration: 30 day, Stop date: 12/28/14 13:58:00Notes: (Same as: [place] 325/5) Do not exceed 4gm/day of acetaminophen. Acetaminophen 650 mg, 2 tab, No Longer Route: PO, Active 2014 [facility] Drug form: TAB, Q4H, Dosing Weight 88.63, kg, PRN Pain 1-3/Temp > 100.4 F, Start date: 11/28/14 13:59:00, Duration: 30 day, Stop date: 12/28/14 13:58:00Notes: Do not exceed 4 gm/day. (Same as: Tylenol) ibuprofen 800 mg 800 mg=1 tab, Active [place] oral tablet PO, Q6H, # 40 2014 Medical tab, 0 Center Refill(s) Docusate Sodium 100 mg=1 cap, Active [place] 100 MG Oral PO, BID, # 20 2015 Medical Capsule [Colace] cap, 0 Center Refill(s) Lidocaine 1 patch, TOP, Active [place] Hydrochloride 0.05 Daily, # 30 2015 Medical MG/MG Transdermal patch, 0 Center Patch Refill(s) Dulcolax Laxative 10 mg, 2 tab, No Longer [place] Route: PO, Active 2014 Medical Drug form: Center ECTAB, Daily, Dosing Weight 88.63, kg, Start date: 11/09/14 16:00:00, Duration: 30 day, Stop date: 12/09/14 9:00:00Notes: (Same As: Dulcolax, Correctol) (Do Not Crush) "Do Not Crush" Docusate Sodium 100 mg, 1 cap, No Longer [place] 100 MG Oral Route: PO, Active 2014 Medical Capsule [Colace] Drug form: Center CAP, BID, Dosing Weight 88.63, kg, Start date: 11/09/14 9:00:00, Duration: 30 day, Stop date: 12/08/14 17:00:00Notes: (Same as: Colace) (Do Not Crush) remove patch 1 patch, No Longer [facility] Route: TOP, Active 2014 Medical Daily, Drug Center form: ERFILM, Start date: 11/09/14 2:00:00, Duration: 30 day, Stop date: 12/08/14 2:00:00Notes: Remove patch 12 hours after application each day. Acetaminophen 325 1 tab, Route: No Longer [facility] MG / Hydrocodone PO, Drug Form: Active 2014 Medical Bitartrate 10 MG TAB, Dosing Center Oral Tablet [[place] Weight 88.63, 10/325] kg, Q4H, PRN Pain, Start date: 11/09/14 0:00:00, Duration: 30 day, Stop date: 12/08/14 20:00:00Notes: Do not exceed 4gm/day of acetaminophen. (Same as: [place] 325/10) phenol topical 1 spray, No Longer [facility] 1.4% spray Route: MUCOUS Active 2014 Medical MEM, QID, Drug Center form: SPRY, PRN Sore Throat, Start date: 11/08/14 21:06:00, Duration: 30 day, Stop date: 12/08/14 21:05:00Notes: Chloraseptic [place] (Same as: Chloraseptic, Sore Throat [place]) Benzocaine 50 1 spray, Inactive [facility] MG/ML / Glycerin Route: TOP, 2014 Medical 330 MG/ML Mucosal Dosing Weight Center [place] [Cepacol 88.63, kg, Dual Relief] QID, PRN Sore Throat, Start date: 11/08/14 20:46:00, Duration: 30 day, Stop date: 12/08/14 20:45:00 Ibuprofen 800 mg, 1 tab, No Longer [facility] Route: PO, Active 2014 Medical Drug form: Center TAB, Q8H, Dosing Weight 88.636, kg, Start date: 11/08/14 16:00:00, Duration: 30 day, Stop date: 12/08/14 8:00:00Notes: (Same as: Motrin) "Do Not Crush" Take with food. predniSONE 10 mg 10 mg=1 tab, Active [facility] oral tablet PO, Daily [address] [facility] losartan 50 mg 50 mg=1 tab, Active [facility] oral tablet PO, Daily [address] [facility] pantoprazole 40 mg 40 mg=1 tab, Active [facility] oral enteric PO, Daily 2014 [facility] coated tablet [place] Ascorbic Acid / 1 tablet, PO, Active [facility] Biotin / Folic Daily 2014 Medical Acid / Niacin / [place] pantothenate / pyridoxine / Riboflavin / Thiamine / Vitamin B 12 Lidocaine 1 patch, No Longer [facility] Hydrochloride 0.05 Route: TOP, Active 2014 Medical MG/MG Transdermal Q24H, Drug [place] Patch [Lidoderm] form: FILM, Priority: Now, Start date: 11/08/14 14:00:00, Duration: 30 day, Stop date: 12/07/14 14:00:00, Remove after 12 hoursSpecial Instructions: Remove after 12 hoursNotes: Apply only once for up to 12 hours in a 24-hour period (12 hours on and 12 hours off). (Same as: Lidoderm) "Remove old patch before application of new patch" Phenergan 6.25 mg, 0.25 Inactive [facility] mL, Route: 2014 Medical IVPB, Drug Center form: INJ, Q8H, Dosing Weight 88.636, kg, PRN Nausea & Vomiting, Start date: 11/08/14 13:04:00, Duration: 30 day, Stop date: 12/08/14 13:03:00Notes: Do not give IV push. (Same as: Phenergan) Acetaminophen 325 1 tab, Route: Inactive [facility] MG / Hydrocodone PO, Drug Form: [facility] Medical Bitartrate 5 MG TAB, Dosing Center Oral Tablet [[place] Weight 88.636, 5/325] kg, Q4H, Start date: 11/08/14 12:00:00, Duration: 30 day, Stop date: 12/08/14 8:00:00Notes: (Same as: [place] 325/5) Do not exceed 4gm/day of acetaminophen. Acetaminophen 1,000 mg, Inactive [facility] Route: IVPB2014 Medical Drug form: Center INJ, Q6Hnow, Dosing Weight 90.909, kg, Start date: 11/08/14 12:00:00, Duration: 30 day, Stop date: 12/08/14 6:00:00 Acetaminophen 325 1 tab, Route: No Longer [facility] MG / Hydrocodone PO, Drug Form: Active 2014 Medical Bitartrate 5 MG TAB, Dosing Center Oral Tablet [[place] Weight 88.636, 5/325] kg, Q4H, PRN Pain, Start date: 11/08/14 11:57:00, Duration: 30 day, Stop date: 12/08/14 11:56:00Notes: (Same as: [place] 325/5) Do not exceed 4gm/day of acetaminophen. Zofran 4 mg, 2 mL, Inactive [facility] Route: IVP2014 Medical Drug form: Center INJ, ONCE, Dosing Weight 88.636, kg, Start date: 11/08/14 11:55:00, Stop date: 11/08/14 11:55:00Notes: (Same as: Zofran) Magnesium Sulfate 2 gm, 50 mL, Inactive [facility] Route: IVPB2014 Medical Drug form: Center INJ, Q2H, Dosing Weight 88.636, kg, Total dose=4 gm, Start date: 11/08/14 8:00:00, Duration: 2 doses or times, Stop date: 11/08/14 10:00:00 Benadryl 25 mg, 1 cap, No Longer [facility] Route: PO, Active 2014 Medical Drug form: Center CAP, Q6H, Dosing Weight 88.636, kg, PRN as needed for itching, Start date: 11/08/14 0:00:00, Duration: 30 day, Stop date: 12/07/14 18:00:00Notes: (Same as: Benadryl) Tramadol 100 mg, 2 tab, No Longer [place] Route: PO, Active 2014 Medical Drug form: [place] TAB, Q6H, Dosing Weight 90.909, kg, Start date: 11/07/14 18:00:00, Duration: 30 day, Stop date: 12/07/14 12:00:00Notes: Not to exceed 400mg/day. (Same As: Ultram) Docusate Sodium 100 mg, 1 cap, No Longer [place] 100 MG Oral Route: PO, Active 2013 Medical Capsule Drug form: [place] CAP, BID, Dosing Weight 90.909, kg, Start date: 11/07/14 17:00:00, Duration: 30 day, Stop date: 12/07/14 9:00:00Notes: (Same as: Colace) (Do Not Crush) Prednisone 10 mg, 1 tab, No Longer [place] Route: PO, Active 2013 Medical Drug form: [place] TAB, BID, Dosing Weight 90.909, kg, Start date: 11/07/14 17:00:00, Duration: 30 day, Stop date: 12/07/14 9:00:00Notes: (Same as: PredniSONE) Take with food. Protonix 40 mg, 1 tab, No Longer [place] Route: PO, Active 2013 Medical Drug form: [place] ECTAB, Before Dinner, Dosing Weight 90.909, kg, Start date: 11/07/14 16:30:00, Duration: 30 day, Stop date: 12/06/14 16:30:00Notes: Tablet should not be chewed or crushed. (Same as: Protonix) Hydromorphone 0.5 mg, Route: Inactive [facility] IVP, ONCE, 2013 Medical Dosing Weight [place] 90.909, kg, Priority: STAT, Start date: 11/07/14 14:20:00, Stop date: 11/07/14 14:20:00 Hydromorphone 0.5 mg, Route: Inactive [facility] IVP, ONCE, 2013 Medical Dosing Weight [place] 90.909, kg, Priority: STAT, Start date: 11/07/14 14:03:00, Stop date: 11/07/14 14:03:00 Hydromorphone 15 mg, 30 mL, No Longer [place] Route: IV, Active 2013 Medical Initial Center Loading Dose: 0 mg, COPRA PROCESSOR Dose: 0.2 mg, COPRA PROCESSOR Lockout: 10 minutes, Continuous Basal Rate: 0 mg, 4 Hour Limit (In MG): 6, Drug Form: INJ, Continuous, Start date: 11/07/14 14:00:00, Duration: 30 day, Stop date: 12/07/14 13:5...Notes: (Same as: Dilaudid) conc=0.5 mg/ml Hydromorphone COPRA PROCESSOR Dose: ;Delay: ;Basal: Naloxone 0.04 mg, 0.1 No Longer [place] mL, Route: Active 2013 Medical IVP, Drug Center form: INJ, Q2MIN, Dosing Weight 90.909, kg, PRN Narcotic Reversal, Start date: 11/07/14 13:53:00, Duration: 30 day, Stop date: 12/07/14 13:52:00Notes: Same as Narcan Lovenox 40 mg, 0.4 mL, No Longer [place] Route: SUB-Q, Active 2013 Medical Drug form: Center INJ, [id number], Dosing Weight 90.909, kg, Start date: 11/07/14 12:00:00, Duration: 30 day, Stop date: 12/06/14 12:00:00Notes: (Same as: Lovenox) Ketorolac 15 mg, 1 mL, No Longer [place] Tromethamine 15 Route: IV, Active 2013 Medical MG/ML Injectable Drug form: Center Solution INJ, Q6H, Dosing Weight 90.909, kg, PRN Breakthrough Pain, Start date: 11/07/14 12:00:00, Duration: 4 day, Stop date: 11/11/14 11:59:00Notes: (Same as:Toradol) IV bolus must be given >15 seconds. Give IM administration slowly and deeply into the muscle. Not for use > 4 days. Insulin, Regular, 1 unit, 0.01 No Longer [place] Pork mL, Route: Active 2013 Medical SUB-Q, Drug Center form: SOLN, TID-Before Meals, Dosing Weight 90.909, kg, PRN Blood Glucose Results, Start date: 11/07/14 11:38:00, Duration: 30 day, Stop date: 12/07/14 11:37:00Notes: (Same as: Humulin R) Roll in palms of hands gently; Do not shake vigorously. "single patient use only" (Restricted to patients requiring a dose > 60 units) Stable for 28 days at room temperature Expires in days from Date Saline Flush 0.9% 10 ml, Route: No Longer [facility] IVP, Drug Active 2013 Medical Form: INJ, Center Dosing Weight 90.909, kg, PRN, PRN Line Flush, Start date: 11/07/14 11:38:00, Duration: 30 day, Stop date: 12/07/14 11:37:00Notes: (Same as: BD Posiflush) Glucagon 1 mg, Route: No Longer [facility] IM, Drug form: Active 2013 Medical PDR/INJ, PRN, Center Dosing Weight 90.909, kg, PRN Blood Glucose Results, Start date: 11/07/14 11:38:00, Duration: 30 day, Stop date: 12/07/14 11:37:00 Dextrose 50% 25 gm, 50 mL, No Longer [facility] Syringe Route: IVP, Active 2013 Medical Drug Form: Center INJ, Dosing Weight 90.909, kg, PRN, PRN Blood Glucose Results, Start date: 11/07/14 11:38:00, Duration: 30 day, Stop date: 12/07/14 11:37:00 Calcium Chloride 1,000 mL, No Longer [facility] 0.0014 MEQ/ML / Rate: 125 Active 2013 Medical Potassium Chloride ml/hr, Infuse Center 0.004 MEQ/ML / over: 8 hr, Sodium Chloride Route: IV, 0.103 MEQ/ML / Dosing Weight Sodium Lactate 90.909 kg, 0.028 MEQ/ML Total Volume: Injectable 1,000, Start Solution date: 11/07/14 11:38:00, Duration: 30 day, Stop date: 12/07/14 11:37:00 Acetaminophen 1,000 mg, 100 No Longer [place] mL, Route: Active 2013 Medical IVPB, Drug Center form: INJ, Q6Hnow, Dosing Weight 90.909, kg, Start date: 11/07/14 9:00:00, Duration: 30 day, Stop date: 12/07/14 6:00:00Notes: Infuse over 15 minutes Do not exceed 4gm/day of acetaminophen pregabalin 100 mg, 1 cap, No Longer [place] Route: PO, Active 2013 Medical Drug form: Center CAP, Q8Hnow, Dosing Weight 90.909, kg, Start date: 11/07/14 9:00:00, Duration: 30 day, Stop date: 12/07/14 1:00:00Notes: (Same as: Lyrica) Tramadol 50 mg, 1 tab, Inactive [place] Route: PO, 2013 Medical Drug form: Center TAB, Q4H, Dosing Weight 90.909, kg, PRN as needed for pain, Start date: 11/07/14 8:29:00, Duration: 30 day, Stop date: 12/07/14 8:28:00Notes: Not to exceed 400mg/day. (Same As: Ultram) Cleocin HCl 900 mg, Route: Inactive [place] IVPB, ONCE, 2013 Medical Dosing Weight Center 90.909, kg, Start date: 11/07/14 8:25:00, Stop date: 11/07/14 8:25:00 Naloxone 0.1 mg, 0.25 No Longer [place] mL, Route: Active 2013 Medical IVP, Drug Center form: INJ, Q2MIN, Dosing Weight 90.909, kg, PRN Narcotic Reversal, Start date: 11/07/14 8:22:00, Duration: 8 doses or times, Stop date: 11/08/14 0:00:00Notes: Same as Narcan Fentanyl / Route: Inactive [place] ropivacaine EPIDURAL, 2013 Medical Continuous Center Rate: 8, ml/hr, Infusion site: Thoracic, COPRA PROCESSOR dose 3 mL, COPRA PROCESSOR dose lockout: 60 minutes, 1 Hour limit: 11 mL, 200, mL, Start date: 11/07/14 8:22:00, Drug Form: INJ, Total volume: 200, mL, kg, Stop date: 12/07/14 8:21:00Notes: (Same as Naropin-Sublim aze) Ofirmev 1,000 mg, 100 No Longer [facility] mL, Route: IV, Active 2013 Medical Drug form: [place] INJ, PRE OP, Start date: 11/06/14 23:00:00, Duration: 1 day, Stop date: 11/07/14 22:59:00 scopolamine 1 patch, No Longer [facility] Route: TOP, Active 2013 Medical Drug form: [place] ERFILM, PRE OP, Start date: 11/06/14 23:00:00, Duration: 1 day, Stop date: 11/07/14 22:59:00Notes: Change patch every 72 hours (Same as: Transderm-Scop ) Ascorbic Acid / 0 Refill(s) No Longer [facility] Biotin / Folic Active 2013 Medical Acid / Niacin / [place] pantothenate / pyridoxine / Riboflavin / Thiamine / Vitamin B 12 24 HR Loratadine 1 tab, PO, Active [facility] 10 MG / Daily, # 15 2014 Medical Pseudoephedrine tab, 0 [place] sulfate 240 MG Refill(s) Extended Release Tablet [Claritin-D] Ketorolac 15 mg, 1 mL, Inactive [facility] Route: IV, 2013 Medical Drug form: [place] INJ, Q6Hnow, Dosing Weight 90.909, kg, Start date: 11/01/14 15:00:00, Duration: 4 day, Stop date: 11/05/14 9:00:00Notes: (Same as:Toradol) IV bolus must be given >15 seconds. Give IM administration slowly and deeply into the muscle. Not for use > 4 days. Lyrica 50 mg, 1 cap, Inactive 11/01[facility] Route: PO, 2013 Medical Drug form: [place] CAP, Q6H, Dosing Weight 90.909, kg, Start date: 11/01/14 12:00:00, Duration: 30 day, Stop date: 12/01/14 6:00:00Notes: Same as Lyrica Losartan 50 mg, 1 tab, Inactive 11/01[facility] Route: PO, 2013 Medical Drug form: [place] TAB, Daily, Dosing Weight 81.818, kg, Start date: 11/01/14 9:00:00, Duration: 30 day, Stop date: 11/30/14 9:00:00Notes: (Same as: Cozaar) Prednisone 10 mg, 1 tab, Inactive [facility] Route: PO2013 Medical Drug form: [place] TAB, Daily, Dosing Weight 81.818, kg, Start date: 11/01/14 9:00:00, Duration: 30 day, Stop date: 11/30/14 9:00:00Notes: (Same as: PredniSONE) Take with food. Topamax 200 mg, 2 tab, Inactive [facility] Route: PO2013 Medical Drug form: [place] TAB, Daily, Dosing Weight 81.818, kg, Start date: 11/01/14 9:00:00, Duration: 30 day, Stop date: 11/30/14 9:00:00Notes: (Same As: Topamax) "Do Not Crush" Ketorolac 30 mg, 1 mL, Inactive [facility] Route: IV, 2013 Medical Drug form: [place] INJ, ONCE, Dosing Weight 90.909, kg, Start date: 11/01/14 8:31:00, Duration: 1 doses or times, Stop date: 11/01/14 8:31:00Notes: (Same as:Toradol) IV bolus must be given >15 seconds. Give IM administration slowly and deeply into the muscle. Not for use > 4 days Ketorolac 10 mg, 1 tab, Inactive [facility] Route: PO2013 Medical Drug form: [place] TAB, Q4H, Dosing Weight 90.909, kg, PRN Pain Score 1-3, Start date: 11/01/14 6:41:00, Duration: 4 day, Stop date: 11/05/14 6:40:00Notes: Not for use > 4 days. Give with food. (Same as:Toradol) Protonix See No Longer [facility] Instructions, Active 2013 Medical Daily, 0 Center Refill(s) predniSONE 10 mg 10 mg, BID, 0 No Longer [facility] oral tablet Refill(s) Active 2013 [facility] losartan 50 mg 50 mg, Daily, No Longer [place] oral tablet 0 Refill(s) Active 2013 [facility] Center Lovenox 40 mg, 0.4 mL, Inactive [facility] Route: SUB-Q, 2013 Medical Drug form: [place] INJ, [id number], Dosing Weight 81.818, kg, Start date: 11/01/14 3:00:00, Duration: 30 day, Stop date: 11/30/14 3:00:00Notes: (Same as: Lovenox) Dilaudid 0.5 mg, 0.25 Inactive [facility] mL, Route: IV, 2013 Medical Drug form: [place] INJ, Q4H, Dosing Weight 81.818, kg, PRN Pain Score 7-10, Start date: 11/01/14 2:46:00, Duration: 30 day, Stop date: 12/01/14 2:45:00Notes: Same as: Dilaudid Ofirmev 650 mg, 65 mL, Inactive [facility] Route: IV, 2013 Medical Drug form: [place] INJ, ONCE, Dosing Weight 81.818, kg, PRN Pain Score 1-3, for Notes: Infuse over 15 minutes PlasmaLyte A 1,000 mL, Inactive [facility] PH-7.4 1,000 mL Rate: 120 [facility] Medical ml/hr, Infuse [place] over: 8.3 hr, Route: IV, Dosing Weight 81.818 kg, Total Volume: 1,000, Start date: 11/01/14 2:43:00, Duration: 30 day, Stop date: 12/01/14 2:42:00 PREDNISONE 10 MG 1 tab daily Active Medical TABS 2013 Group HYDROXYCHLOROQUINE 1 tab twice No Longer Medical SULFATE 200 MG daily Active 2013 Group TABS [place] POTASSIUM 1 tab daily No Longer Medical 50 MG TABS Active 2013 Group PLAQUENIL 200 MG No Longer Medical TABS Active 2013 Group HYDROCODONE-ACETAM 1 tablet three Active Medical INOPHEN 10-325 MG times a day as 2013 Group TABS needed for pain HYDROCODONE-ACETAM 1 tablet three Active Medical INOPHEN 10-325 MG times a day as 2013 Group TABS needed for pain HYDROXYCHLOROQUINE 1 tab twice No Longer Medical SULFATE 200 MG daily Active 2013 Group TABS PREDNISONE 10 MG 1 tab daily No Longer Medical TABS Active 2013 Group [place] POTASSIUM 1 tab daily No Longer Medical 50 MG TABS Active 2013 Group HYDROCODONE-ACETAM 1 tablet three Active Medical INOPHEN 10-325 MG times a day as 2013 Group TABS needed for pain HYDROXYCHLOROQUINE 1 tab twice No Longer Medical SULFATE 200 MG daily Active 2013 Group TABS PLAQUENIL 200 MG No Longer Medical TABS Active 2013 Group HYDROXYCHLOROQUINE 1 tab twice No Longer Medical SULFATE 200 MG daily Active 2013 Group TABS PREDNISONE 10 MG 1 tab daily No Longer Medical TABS Active 2013 Group HYDROCODONE-ACETAM 1 tablet three Active Medical INOPHEN 10-325 MG times a day as 2013 Group TABS needed for pain PLAQUENIL 200 MG No Longer Medical TABS Active 2013 Group PREDNISONE 10 MG 1 tab daily No Longer Medical TABS Active 2013 Group CIPROFLOXACIN HCL 1 tablet twice No Longer Medical 500 MG TABS daily for Active 2013 Group urinary infection x 3 days CIPROFLOXACIN HCL 1 tablet twice No Longer Medical 500 MG TABS daily for Active 2013 Group urinary infection x 3 days CIPROFLOXACIN HCL 1 tablet twice No Longer Medical 500 MG TABS daily for Active 2013 Group urinary infection x 3 days Dilaudid 0.5 mg, 0.5 No Longer mL, Route: Active 2013 [facility] IVP, Drug form: INJ, Q6H, Dosing Weight 102.273, kg, PRN Pain Score 6-10, Priority: STAT, Start date: 07/18/14 5:22:00, Duration: 30 day, Stop date: 08/17/14 5:21:00 Saline Flush 0.9% 5 ml, Route: No Longer IVP, Drug Active 2013 [facility] Form: INJ, Dosing Weight 81.818, kg, PRN, PRN Line Flush, Start date: 07/18/14 5:22:00, Duration: 30 day, Stop date: 08/17/14 5:21:00Notes: (Same as: BD Posiflush) NS + KCL 20mEq/L 1,000 mL, No Longer 1000ml (Premix) Rate: 125 Active 2013 [facility] 1,000 mL ml/hr, Infuse over: 8 hr, Route: IV, Dosing Weight 81.818 kg, Total Volume: 1,000, Start date: 07/18/14 5:22:00, Duration: 30 day, Stop date: 08/17/14 5:21:00Notes: PREMIX IV - Do Not Alter Ondansetron 4 mg, 2 mL, No Longer Route: IVP, Active 2013 [facility] Drug form: INJ, Q8H, Dosing Weight 81.818, kg, PRN Nausea & Vomiting, Start date: 07/18/14 5:22:00, Duration: 30 day, Stop date: 08/17/14 5:21:00Notes: (Same as: Zofran) Potassium Chloride 20 mEq, Route: Inactive PO, Drug form: 2013 [facility] ERTAB, ONCE, Dosing Weight 102.273, kg, Priority: STAT, Start date: 07/18/14 2:56:00, Stop date: 07/18/14 2:56:00 Dilaudid 1 mg, 1 mL, Inactive Route: IVP, 2013 [facility] Drug form: INJ, ONCE, Dosing Weight 102.273, kg, Priority: STAT, Start date: 07/18/14 0:01:00, Stop date: 07/18/14 0:01:00 Ondansetron 4 mg, Route: No Longer IVP, ONCE, Active 2013 [facility] Dosing Weight 102.273, kg, Priority: STAT, Start date: 07/17/14 23:51:00, Stop date: 07/17/14 23:51:00 Morphine 4 mg, Route: Inactive IVP, ONCE, 2013 [facility] Dosing Weight 102.273, kg, Priority: STAT, Start date: 07/17/14 23:51:00, Stop date: 07/17/14 23:51:00 Sodium Chloride 1,000 mL, No Longer 0.154 MEQ/ML Infuse Over: 1 Active 2013 [facility] Injectable hr, Route: IV, Solution ONCE, Priority: STAT, Dosing Weight 102.273 kg, Start date: 07/17/14 23:51:00, Duration: 1 doses or times, Stop date: 07/17/14 23:51:00 Saline Flush 0.9% 10 mL, Route: No Longer IVP, Drug Active 2013 [facility] Form: INJ, Dosing Weight 102.273, kg, PRN, PRN Line Flush, Start date: 07/17/14 23:51:00, Duration: 30 day, Stop date: 08/16/14 23:50:00Notes: (Same as: BD Posiflush) NORVASC 5 MG TABS 1 tablet daily No Longer Medical for blood Active 2013 Group pressure, increase to 2 tabs daily if bp > 140/90 PREDNISONE 10 MG 4 tablets Active Medical TABS daily x 1 day, 2014 Group then 3 tablets daily x 1 day, then 2 tablets daily x 1 day, then 1 tablet daily thereafter PREDNISONE 10 MG 4 tablets No Longer Medical TABS daily x 1 day, Active 2013 Group then 3 tablets daily x 1 day, then 2 tablets daily x 1 day, then 1 tablet daily thereafter PREDNISONE 10 MG 4 tablets No Longer Medical TABS daily x 1 day, Active 2013 Group then 3 tablets daily x 1 day, then 2 tablets daily x 1 day, then 1 tablet daily thereafter PREDNISONE 10 MG 4 tablets No Longer Medical TABS daily x 1 day, Active 2013 Group then 3 tablets daily x 1 day, then 2 tablets daily x 1 day, then 1 tablet daily thereafter NORVASC 5 MG TABS 1 tablet daily No Longer Medical for blood Active 2013 Group pressure, increase to 2 tabs daily if bp > 140/90 PREDNISONE 10 MG 4 tablets No Longer Medical TABS daily x 1 day, Active 2013 Group then 3 tablets daily x 1 day, then 2 tablets daily x 1 day, then 1 tablet daily thereafter Kenalog-40 40 mg, 1 mL, Inactive Route: IM, 2013 [facility] Drug form: INJ, ONCE, Start date: 07/13/14 11:46:00, Stop date: 07/13/14 11:46:00Notes: (Same As: Kenalog-40) Calcium Chloride 1,000 mL, Inactive 0.0014 MEQ/ML / Rate: 25 2013 [facility] Potassium Chloride ml/hr, Infuse 0.004 MEQ/ML / over: 40 hr, Sodium Chloride Route: IV, 0.103 MEQ/ML / Dosing Weight Sodium Lactate 102.273 kg, 0.028 MEQ/ML Total Volume: Injectable 1,000, Start Solution date: 07/13/14 11:19:00, Duration: 1 day, Stop date: 07/14/14 11:18:00 Acetaminophen 325 1 tab, Route: Inactive MG / Hydrocodone PO, Drug Form: 2013 [facility] Bitartrate 10 MG TAB, Dosing Oral Tablet [[place] Weight 10/325] 115.909, kg, Q4H, PRN Pain, Start date: 07/03/14 14:44:00, Duration: 30 day, Stop date: 08/02/14 14:43:00 Ofirmev 1,000 mg, Inactive Route: IV, 2013 [facility] Drug form: INJ, ONCE, Dosing Weight 115.909, kg, PRN Pain, for > or=50 kg, Start date: 07/03/14 14:44:00 Naloxone 0.04 mg, Inactive Route: IVP, 2013 [facility] Q2MIN, Dosing Weight 103.636, kg, PRN Narcotic Reversal, Start date: 07/03/14 14:44:00, Duration: 8 doses or times, Stop date: Limited # of times Flumazenil 0.2 mg, Route: Inactive IVP, PRN, 2013 [facility] Dosing Weight 103.636, kg, PRN Benzodiazepine Reversal, Initial dose, Start date: 07/03/14 14:44:00, Duration: 30 day, Stop date: 08/02/14 14:43:00 Ondansetron 4 mg, Route: Inactive IVP, ONCE, 2013 [facility] Dosing Weight 103.636, kg, PRN Nausea & Vomiting, Start date: 07/03/14 14:44:00 Hydromorphone 0.5 mg, Route: Inactive IVP, Q5Min, 2013 [facility] Dosing Weight 103.636, kg, PRN Pain Score 7-10, Start date: 07/03/14 14:44:00, Duration: 4 doses or times, Stop date: Limited # of times Fentanyl 25 microgram, Inactive Route: IVP, 2013 [facility] Q5Min, Dosing Weight 103.636, kg, PRN Pain Score 4-6, Start date: 07/03/14 14:44:00, Duration: 4 doses or times, Stop date: Limited # of times Oxycodone 5 mg, Route: Inactive PO, Drug form: 2013 [facility] TAB, Q4H, Dosing Weight 103.636, kg, PRN Pain Score 4-6, Start date: 07/03/14 14:44:00, Duration: 30 day, Stop date: 08/02/14 14:43:00 Calcium Chloride 1,000 mL, Inactive 0.0014 MEQ/ML / Rate: 2013 [facility] Potassium Chloride ml/hr, Infuse 0.004 MEQ/ML / over: 40 hr, Sodium Chloride Route: IV, 0.103 MEQ/ML / Dosing Weight Sodium Lactate 103.636 kg, 0.028 MEQ/ML Total Volume: Injectable 1,000, Start Solution date: 07/03/14 13:01:00, Duration: 30 day, Stop date: 08/02/14 13:00:00 heparin, porcine 5,000 unit, Inactive Route: SUB-Q, 2013 [facility] ONCE, Dosing Weight 103.636, kg, Start date: 07/03/14 13:01:00, Stop date: 07/03/14 13:01:00 Cefoxitin 2 gm, Route: Inactive IVPB, ONCE, 2013 [facility] Dosing Weight 103.636, kg, Start date: 07/03/14 13:00:00, Stop date: 07/03/14 13:00:00 riboflavin 100 mg 100 mg=1 tab, Active oral tablet PO, Daily, # 2013 [facility] 100 tab, 0 Refill(s) pyridoxine 100 mg 100 mg=1 tab, Active oral tablet PO, Daily, # 2013 [facility] 100 tab, 0 Refill(s) metoprolol 50 mg=1 tab, Active tartrate 50 mg PO, Daily, # 2013 [facility] oral tablet 30 tab, 0 Refill(s) Folic Acid 1 MG 1 mg=1 tab, Active Oral Tablet PO, Daily, # 2013 30 tab, 0 Refill(s) ascorbic acid 500 500 mg=1 tab, Active mg oral tablet PO, Daily, # 2013 30 tab, 0 Refill(s) Vitamin C 500 mg, 1 tab, Inactive Route: PO2013 [facility] Drug form: TAB, Daily, Dosing Weight 115.909, kg, Start date: 06/13/14 9:00:00, Duration: 30 day, Stop date: 07/12/14 9:00:00Notes: (Same as: Vitamin C) Vitamin B6 100 mg, 1 tab, Inactive Route: PO2013 [facility] Drug form: TAB, Daily, Dosing Weight 115.909, kg, Start date: 06/13/14 9:00:00, Duration: 30 day, Stop date: 07/12/14 9:00:00Notes: (Same as: Vitamin B6) Vitamin B12 1,000 Inactive microgram, 2 2013 tab, Route: PO, Drug form: TAB, Daily, Dosing Weight 115.909, kg, Start date: 06/13/14 9:00:00, Duration: 30 day, Stop date: 07/12/14 9:00:00Notes: (Same As: Vitamin B12) Riboflavin 100 mg, 1 tab, Inactive Route: PO2013 [facility] Drug form: TAB, Daily, Dosing Weight 115.909, kg, Start date: 06/13/14 9:00:00, Duration: 30 day, Stop date: 07/12/14 9:00:00Notes: (Same as: Vitamin B2) Folic Acid 1 mg, 1 tab, Inactive Route: PO2013 [facility] Drug form: TAB, Daily, Dosing Weight 115.909, kg, Start date: 06/13/14 9:00:00, Duration: 30 day, Stop date: 07/12/14 9:00:00Notes: (Same as: Folvite) Tramadol 50 mg, 1 tab, No Longer Route: JT, Active 2013 [facility] Drug form: TAB, Q6H, Dosing Weight 115.909, kg, PRN Pain Score 1-3, Start date: 06/11/14 10:44:00, Duration: 30 day, Stop date: 07/11/14 10:43:00Notes: Not to exceed 400mg/day. (Same As: Ultram) Protonix 40 mg, 1 pkt, Inactive Route: JT, 2013 [facility] Drug form: GRAN/REC, Daily, Start date: 06/11/14 9:30:00, Duration: 30 day, Stop date: 07/11/14 9:00:00Notes: Same as: Protonix Lorazepam 0.5 mg, 0.25 Inactive mL, Route: IV, 2013 [facility] Drug form: INJ, ONCE, Dosing Weight 115.909, kg, Start date: 06/10/14 14:17:00, Stop date: 06/10/14 14:17:00Notes: (Same as: Ativan) Ketorolac 15 mg, 1 mL, No Longer Tromethamine 15 Route: IV, Active 2013 [facility] MG/ML Injectable Drug form: Solution INJ, Q6H, Dosing Weight 115.909, kg, Start date: 06/10/14 9:30:00, Duration: 2 day, Stop date: 06/12/14 3:30:00Notes: (Same as:Toradol) IV bolus must be given >15 seconds. Give IM administration slowly and deeply into the muscle. Not for use > 4 days. Dilaudid 0.2 mg, 0.2 No Longer mL, Route: IV, Active 2013 [facility] Drug form: INJ, Q3H, Dosing Weight 115.909, kg, PRN Pain Score 7-10, Start date: 06/09/14 22:27:00, Duration: 30 day, Stop date: 07/09/14 22:26:00 acetaminophen-hydr 11.25 mL, No Longer ocodone Route: PO, Active 2013 [facility] Drug Form: SOLN, Q4H, PRN Pain Score 4-6, Start date: 06/09/14 16:21:00, Duration: 30 day, Stop date: 07/09/14 16:20:00Notes: Do not exceed 4gm/day of acetaminophen. (Same as: Zolvit) Acetaminophen 33.3 15 ml, Route: Inactive MG/ML / PO, Drug Form: 2013 [facility] Hydrocodone SOLN, Dosing Bitartrate 0.5 Weight MG/ML Oral 115.909, kg, Solution Q4H, PRN Pain Score 4-6, Start date: 06/09/14 9:42:00, Duration: 30 day, Stop date: 07/09/14 9:41:00Notes: Do not exceed 4gm/day of acetaminophen. (Same as: Lortab 5 mg/ 217 mg per 10mL) Potassium Chloride 40 mEq, 30 mL, Inactive Route: GT, 2013 [facility] Drug form: LIQ, ONCE, Dosing Weight 115.909, kg, Start date: 06/09/14 9:06:00, Stop date: 06/09/14 9:06:00Notes: (Same as: Potassium Chloride) Lasix 20 mg, 2 mL, Inactive Route: IVP, 2013 [facility] Drug form: INJ, ONCE, Dosing Weight 115.909, kg, Start date: 06/09/14 9:06:00, Stop date: 06/09/14 9:06:00Notes: (Same as: Lasix) Magnesium Sulfate 2 gm, 50 mL, Inactive Route: IVPB2013 [facility] Drug form: INJ, ONCE, Dosing Weight 115.909, kg, Total dose=2 gm, Start date: 06/09/14 9:05:00, Duration: 1 doses or times, Stop date: 06/09/14 9:05:00 Lasix 20 mg, 2 mL, Inactive Route: IV, 2013 [facility] Drug form: INJ, ONCE, Dosing Weight 115.909, kg, Start date: 06/08/14 16:55:00, Stop date: 06/08/14 16:55:00Notes: (Same as: Lasix) Ambien 10 mg, 1 tab, No Longer Route: PO, Active 2013 [facility] Drug form: TAB, Bedtime, Dosing Weight 115.909, kg, PRN as needed for sleep, Start date: 06/08/14 9:21:00, Duration: 30 day, Stop date: 07/08/14 9:20:00Notes: (Same As: Ambien) Venofer 300 mg, 15 mL, No Longer Route: IVPB, Active 2013 [facility] Drug form: INJ, BID, Dosing Weight 115.909, kg, Start date: 06/08/14 9:00:00, Duration: 6 doses or times, Stop date: 06/10/14 17:00:00Notes: Each 5ml contains 100mg elemental iron. Mix with NS (Same as:Venofer) Administer IV only. Vitamin B12 1,000 Inactive microgram, 1 2013 [facility] mL, Route: IM, Drug form: INJ, ONCE, Dosing Weight 115.909, kg, Start date: 06/08/14 8:30:00, Stop date: 06/08/14 8:30:00Notes: (Same As: Vitamin B12) Digoxin 0.25 mg, 1 mL, Inactive Route: IVP, 2013 [facility] Drug form: INJ, Q6H, Dosing Weight 115.909, kg, Start date: 06/08/14 0:00:00, Duration: 2 doses or times, Stop date: 06/08/14 6:00:00Notes: (Same as: Lanoxin) Benadryl 25 mg, 0.5 mL, No Longer Route: IV, Active 2013 [facility] Drug form: INJ, ONCALL, PRN Insomnia, Start date: 06/07/14 22:00:00, Duration: 4 hr, Stop date: 06/08/14 1:59:00Notes: (Same as: Benadryl) Benadryl 25 mg, Route: Inactive IV, ONCE, 2013 [facility] Dosing Weight 115.909, kg, PRN Insomnia, Start date: 06/07/14 15:43:00 Benadryl 25 mg, 0.5 mL, Inactive Route: IVP, 2013 [facility] Drug form: INJ, ONCE, Dosing Weight 115.909, kg, PRN Itching, Priority: NOW, Start date: 06/07/14 15:41:00Notes: (Same as: Benadryl) Benadryl 25 mg, 0.5 mL, Inactive Route: IVP, 2013 [facility] Drug form: INJ, ONCE, Dosing Weight 115.909, kg, PRN Itching, Priority: STAT, Start date: 06/07/14 14:37:00Notes: (Same as: Benadryl) phenol 1 spray, No Longer Route: TOP, Active 2013 [facility] PRN, Drug form: SPRY, PRN as needed for sore throat, Start date: 06/07/14 10:52:00, Duration: 30 day, Stop date: 07/07/14 10:51:00 Clonidine 0.1 mg, 1 tab, No Longer Hydrochloride 0.1 Route: PO, Active 2013 Oral Tablet Drug form: TAB, Q6H, Dosing Weight 115.909, kg, PRN Hypertension, Start date: 06/07/14 8:30:00, Duration: 30 day, Stop date: 07/07/14 8:29:00Notes: (Same As: Catapres) metoprolol 50 mg, 1 tab, No Longer tartrate Route: PO, Active 2013 [facility] Drug form: TAB, Daily, Dosing Weight 115.909, kg, Priority: NOW, Start date: 06/07/14 8:29:00, Duration: 30 day, Stop date: 07/06/14 9:00:00Notes: (Same as: Lopressor) nitroglycerin 0.4 0.4 mg, 1 tab, No Longer mg sublingual Route: SL, Active 2013 [facility] tablet Drug form: TAB, Q5Min, PRN Chest Pain, Start date: 06/07/14 0:13:00, Duration: 30 day, Stop date: 07/07/14 0:12:00Notes: (Same as:Nitroquick, Nitrostat) "Do Not Crush" Sublingual tablet atropine 0.5 mg, 5 mL, No Longer Route: IVP, Active 2013 [facility] Drug form: INJ, PRN, PRN Bradycardia, Start date: 06/07/14 0:13:00, Duration: 30 day, Stop date: 07/07/14 0:12:00 Furosemide 20 mg, Route: Inactive [place] STARKS, 2013 [facility] Dosing Weight 115.909, kg, Administer after first unit of Blood., Priority: Routine, Start date: 06/06/14 9:00:00, Duration: 30 day, Stop date: 07/06/14 8:59:00 Sodium Chloride 250 mL, Rate: Inactive 0.9% (titrate) 250 yard caller for 2013 [facility] mL use with blood product administration , Dosing Weight 115.909, kg, Route: IV, Total Volume: 250, Start Date: 06/06/14 8:58:00, Duration: 30 day, Stop date: 07/06/14 8:57:00, Replace Every: 24 hr Phosphorus / 15 mmol, 5 mL, Inactive Potassium Route: IVPB, 2013 [facility] ONCE, Dosing Weight 115.909, kg, Start date: 06/06/14 7:05:00, Stop date: 06/06/14 7:05:00Notes: (Same as: K Phosphate.) 1 mMol phoshate has 1.47 mEq potassium Infuse over 4 hours Ketorolac 15 mg, 1 mL, No Longer Tromethamine 15 Route: IV, Active 2013 [facility] MG/ML Injectable Drug form: Solution INJ, Q6H, Dosing Weight 115.909, kg, Start date: 06/05/14 18:00:00, Stop date: 06/08/14 14:00:00Notes: (Same as:Toradol) IV bolus must be given >15 seconds. Give IM administration slowly and deeply into the muscle. Not for use > 4 days. Topamax 100 mg, 1 tab, No Longer Route: PO, Active 2013 [facility] Drug form: TAB, BID, Dosing Weight 115.909, kg, Start date: 06/05/14 17:00:00, Duration: 30 day, Stop date: 07/05/14 9:00:00Notes: (Same As: Topamax) "Do Not Crush" Phenergan 12.5 mg, 0.5 No Longer mL, Route: Active 2013 [facility] IVPB, Q12H, Dosing Weight 115.909, kg, PRN as needed for nausea/vomitin g, Start date: 06/05/14 13:54:00, Duration: 30 day, Stop date: 07/05/14 13:53:00Notes: Do not give IV push. (Same as: Phenergan) Hydromorphone 6 mg, 30 mL, No Longer Hydrochloride 0.2 Route: IV, Active 2013 MG/ML Injectable Initial Solution Loading Dose: 0.4mg, [employer] Dose: 0.2 mg, [employer] Lockout: 10 minutes, Continuous Basal Rate: 0 mg, 4 Hour Limit (In MG): 4.8, Drug Form: INJ, Continuous, Start date: 06/05/14 11:30:00, Duration: 30 day, Stop date: 07/05/14 11...Notes: Inital Loading Dose: ; COP[employer]ESSOR Dose ; Lockout(Delay) : ; Continuous(Bas al rate): ; 4hr limit: (Same as: Dilaudid) conc=0.2 mg/ml; Naloxone 0.04 mg, 0.1 No Longer mL, Route: Active 2013 IVP, Drug form: INJ, Q2MIN, Dosing Weight 115.909, kg, PRN Narcotic Reversal, Start date: 06/05/14 11:11:00, Duration: 30 day, Stop date: 07/05/14 11:10:00Notes: Same as Narcan Ketorolac 30 mg, 1 mL, Inactive Tromethamine 30 Route: IV, 2013 MG/ML Injectable Drug form: Solution INJ, ONCE, Dosing Weight 115.909, kg, Start date: 06/05/14 10:57:00, Stop date: 06/05/14 10:57:00Notes: (Same as:Toradol) IV bolus must be given >15 seconds. Give IM administration slowly and deeply into the muscle. Not for use > 4 days Zofran 4 mg, 2 mL, No Longer Route: IV, 2013 Drug form: INJ, Q6H, Dosing Weight 115.909, kg, PRN Nausea, Start date: 06/05/14 9:19:00, Duration: 30 day, Stop date: 07/05/14 9:18:00Notes: (Same as: Zofran) Hydralazine 10 mg, 0.5 mL, No Longer Route: IV, Active 2013 Drug form: INJ, Q6H, Dosing Weight 115.909, kg, PRN Elevated BP, Start date: 06/05/14 9:19:00, Duration: 30 day, Stop date: 07/05/14 9:18:00Notes: (Same as: Apresoline) Push over 5 minutes Protonix 40 mg, Route: No Longer IVP, Drug Active 2013 [facility] form: INJ, Daily, Dosing Weight 115.909, kg, Patient is NPO, Start date: 06/05/14 9:00:00, Duration: 30 day, Stop date: 07/04/14 9:00:00Notes: For IV push reconstitute with 10 ml 0.9% sodium chloride and push over 2 minutes. (Same as: Protonix) pneumococcal 0.5 ml, Route: Inactive capsular IM, Drug Form: 2013 [facility] polysaccharide INJ, Daily, type 1 vaccine / Start date: pneumococcal 06/05/14 capsular 9:00:00, polysaccharide Duration: 1 type 10A vaccine / doses or pneumococcal times, Stop capsular date: 06/05/14 polysaccharide 9:00:00Notes: type 11A vaccine / (Same as: pneumococcal Pneumovax 23) capsular Refrigerate polysaccharide type 12F vaccine / pneumococcal capsular polysacchar heparin, porcine 5,000 unit, 1 No Longer mL, Route: Active 2013 [facility] SUB-Q, Drug form: INJ, Q12H, Dosing Weight 115.909, kg, Start date: 06/05/14 8:00:00, Duration: 30 day, Stop date: 07/04/14 21:00:00Notes: porcine heparin Ofirmev 1,000 mg, 100 No Longer mL, Route: IV, Active 2013 [facility] Drug form: INJ, Q6H, Dosing Weight 115.909, kg, PRN Temperature >101.5, for > or=50 kg, Start date: 06/04/14 22:16:00, Stop date: 06/06/14 18:00:00Notes: Infuse over 15 minutes Do not exceed 4gm/day of acetaminophen meropenem 500 mg, Route: No Longer IVPB, ABXQ6H, Active 2013 [facility] Dosing Weight 115.909, kg, CrCl >50, Extended infusion, infuse over 3 hours, Start date: 06/04/14 22:00:00, Duration: 30 day, Stop date: 07/04/14 20:00:00 Dilaudid 0.5 mg, 0.5 No Longer mL, Route: IV, Active 2013 [facility] Drug form: INJ, Q4H, Dosing Weight 115.909, kg, PRN Pain, Start date: 06/04/14 21:30:00, Duration: 30 day, Stop date: 07/04/14 21:29:00 Potassium Chloride 20 mEq, 100 Inactive mL, Route: 2013 [facility] IVPB, Drug form: INJ, ONCE, Dosing Weight 115.909, kg, Start date: 06/04/14 21:00:00, Stop date: 06/04/14 21:00:00Notes: (Same as: KCL) Infuse no faster than 10 mEq/hr if given peripherally. Tylenol 650 mg, 20.3 Inactive mL, Route: JT, 2013 Drug form: LIQ, Q6H, Dosing Weight 115.909, kg, PRN Temperature >101.5, Start date: 06/04/14 20:56:00, Stop date: 07/04/14 20:55:00, FEVER >101.5Notes: Max acetaminophen= 4000mg/day (4 gm/day). (Same as: Tylenol) Calcium Chloride 500 mL, 500 No Longer 0.0014 MEQ/ML / ml/hr, Infuse Active 2013 [facility] Potassium Chloride Over: 1 hr, 0.004 MEQ/ML / Route: IV, Sodium Chloride 500, Drug 0.103 MEQ/ML / form: INJ, Sodium Lactate ONCE, 0.028 MEQ/ML Priority: Injectable STAT, Dosing Solution Weight 115.909 kg, Start date: 06/04/14 20:56:00, Duration: 1 doses or times, Stop date: Limited # of times, PRN Other -See Comment, PRN URINE OUTPUT Neutra-Phos 2 pkt, Route: No Longer PO, Drug Form: Active 2013 [facility] PDR/REC, Dosing Weight 115.909, kg, PRN, PRN Abnormal Lab Result, FOR ICU USE ONLY, Start date: 06/04/14 20:51:00, Duration: 30 day, Stop date: 07/04/14 20:50:00Notes: (Same as: Neutra-Phos) Each 1.25 gm pkt has 250mg phosphorous. Mix w/2.5oz water and stir. Phosphorus / 15 mmol, 5 mL, No Longer Potassium Route: IVPB2013 [facility] PRN, Dosing Weight 115.909, kg, PRN Abnormal Lab Result, Start date: 06/04/14 20:51:00, Duration: 30 day, Stop date: 07/04/14 20:50:00, FOR ICU USE ONLYSpecial Instructions: FOR ICU USE ONLYNotes: (Same as: K Phosphate.) 1 mMol phoshate has 1.47 mEq potassium Infuse over 4 hours Magnesium Sulfate 2 gm, 50 mL, No Longer Route: IVPB2013 [facility] Drug form: INJ, PRN, Dosing Weight 115.909, kg, PRN Abnormal Lab Result, Start date: 06/04/14 20:51:00, Duration: 30 day, Stop date: 07/04/14 20:50:00, FOR ICU USE ONLYSpecial Instructions: FOR ICU USE ONLY Calcium Gluconate 1 gm, 10 mL, No Longer Route: IVPB2013 [facility] PRN, Dosing Weight 115.909, kg, PRN Abnormal Lab Result, Start date: 06/04/14 20:51:00, Duration: 30 day, Stop date: 07/04/14 20:50:00, FOR ICU USE ONLYSpecial Instructions: FOR ICU USE ONLY Calcium Carbonate 500 mg, 1 tab, No Longer 500 MG Chewable Route: PO, 2013 [facility] Tablet Drug form: CHEWTAB, PRN, Dosing Weight 115.909, kg, PRN Abnormal Lab Result, FOR ICU USE ONLY, Start date: 06/04/14 20:51:00, Duration: 30 day, Stop date: 07/04/14 20:50:00Notes: (Same As: Tums) Calcium Carbonate 500 vw=002 mg elemental calcium Dose= mg calcium carbonate ( mg elemental calcium) Magnesium Oxide 800 mg, 2 tab, No Longer Route: PO, Active 2013 [facility] Drug form: TAB, PRN, Dosing Weight 115.909, kg, PRN Abnormal Lab Result, FOR ICU USE ONLY, Start date: 06/04/14 20:51:00, Duration: 30 day, Stop date: 07/04/14 20:50:00Notes: (Same as: Mag-Ox 400) Magnesium oxide 150pm=028kq elemental magnesium Dose=____mg magnesium oxide (___mg elemental magnesium) Potassium Chloride 20 mEq, 100 No Longer mL, Route: Active 2013 [facility] IVPB, Drug form: INJ, PRN, Dosing Weight 115.909, kg, PRN Abnormal Lab Result, Via central line, Start date: 06/04/14 20:51:00, Duration: 30 day, Stop date: 07/04/14 20:50:00, FOR ICU USE ONLYSpecial Instructions: FOR ICU USE ONLYNotes: (Same as: KCL) Infuse no faster than 10 mEq/hr if given peripherally. Sodium Phosphate, 15 mmol, 5 mL, No Longer Monobasic Route: IVPB, Active 2013 [facility] PRN, Dosing Weight 115.909, kg, PRN Abnormal Lab Result, Start date: 06/04/14 20:51:00, Duration: 30 day, Stop date: 07/04/14 20:50:00, FOR ICU USE ONLYSpecial Instructions: FOR ICU USE ONLY Albuterol 0.83 2.49 mg, Inactive MG/ML Inhalant Route: NEB, 2013 [facility] Solution Drug form: SOLN, RQ6H, Dosing Weight 115.909, kg, Start date: 06/04/14 20:00:00, Duration: 30 day, Stop date: 07/04/14 14:00:00 Albuterol 0.833 3 ml, Route: No Longer MG/ML / INHALATION, Active 2013 [facility] Ipratropium Drug Form: [place] 0.167 SOLN, Dosing MG/ML Inhalant Weight Solution [DuoNeb] 115.909, kg, RQ6H, Start date: 06/04/14 20:00:00, Duration: 30 day, Stop date: 07/04/14 14:00:00Notes: (Same as: Duoneb) Potassium Chloride 20 mEq, 100 Inactive mL, Route: 2013 [facility] IVPB, Drug form: INJ, ONCE, Dosing Weight 115.909, kg, Start date: 06/04/14 19:06:00, Stop date: 06/04/14 19:06:00Notes: (Same as: KCL) Infuse no faster than 10 mEq/hr if given peripherally. Levofloxacin 500 mg, 100 No Longer mL, Route: Active 2013 [facility] IVPB, Drug form: INJ, QMHY28C, Dosing Weight 115.909, kg, Start date: 06/04/14 19:00:00, Duration: 30 day, Stop date: 07/03/14 19:00:00Notes: (Same as:Levaquin) Albuterol 0.83 2.49 mg, 3 mL, Inactive MG/ML Inhalant Route: NEB, 2013 [facility] Solution Drug form: SOLN, RQ4H, Dosing Weight 115.909, kg, Start date: 06/04/14 19:00:00, Duration: 30 day, Stop date: 07/04/14 15:00:00Notes: SEE RT DOCUMENTATION (Same as: Proventil) Naloxone 0.04 mg, 0.04 No Longer mL, Route: Active 2013 [facility] IVP, Drug form: INJ, Q2MIN, Dosing Weight 115.909, kg, PRN Narcotic Reversal, Start date: 06/04/14 18:37:00, Duration: 30 day, Stop date: 07/04/14 18:36:00Notes: (Same as: Narcan) Calcium Chloride 1,000 mL, No Longer 0.0014 MEQ/ML / Rate: 75 Active 2013 [facility] Potassium Chloride ml/hr, Infuse 0.004 MEQ/ML / over: 13.3 hr, Sodium Chloride Route: IV, 0.103 MEQ/ML / Dosing Weight Sodium Lactate 115.909 kg, 0.028 MEQ/ML Total Volume: Injectable 1,000, Start Solution date: 06/04/14 18:37:00, Stop date: 07/04/14 18:36:00 Propofol 10 MG/ML 1,000 mg, 100 No Longer Injectable mL, Rate: Active 2013 [facility] Suspension Titrate as directed; for RASS score-2, Dosing Weight 115.909, kg, Route: IV, Total Volume: 100 ml, Start date: 06/04/14 17:07:00, Duration: 30 day, Stop date: 07/04/14 17:06:00, Replace Every: 12 hrNotes: If Diprivan - change bottle & tubing every 12 hr Per state nursing law propofol can only be given by a nurse if patient is intubated or being intubated (unless the nurse is a STUD DRIVER). Same as: Diprivan Naloxone 0.04 mg, Inactive Route: IVP, 2013 [facility] Q2MIN, Dosing Weight 115.909, kg, PRN Narcotic Reversal, Start date: 06/04/14 16:54:00, Duration: 8 doses or times, Stop date: Limited # of times Flumazenil 0.2 mg, Route: Inactive IVP, PRN, 2013 [facility] Dosing Weight 115.909, kg, PRN Benzodiazepine Reversal, Initial dose, Start date: 06/04/14 16:54:00, Duration: 30 day, Stop date: 07/04/14 16:53:00 Hydromorphone 0.5 mg, Route: Inactive IVP, Q5Min, 2013 [facility] Dosing Weight 115.909, kg, PRN Pain Score 7-10, Start date: 06/04/14 16:54:00, Duration: 4 doses or times, Stop date: Limited # of times Hydralazine 10 mg, Route: Inactive IVP, Q20Min, 2013 [facility] Dosing Weight 115.909, kg, PRN Elevated BP, Start date: 06/04/14 16:54:00, Duration: 2 doses or times, Stop date: Limited # of times Ondansetron 4 mg, Route: Inactive IVP, ONCE, 2013 [facility] Dosing Weight 115.909, kg, PRN Nausea & Vomiting, Start date: 06/04/14 16:54:00 Labetalol 10 mg, Route: Inactive IVP, Q5Min, 2013 [facility] Dosing Weight 115.909, kg, PRN Elevated BP, Start date: 06/04/14 16:54:00, Duration: 5 doses or times, Stop date: Limited # of times Fentanyl 25 microgram, Inactive Route: IVP, 2013 [facility] Q5Min, Dosing Weight 115.909, kg, PRN Pain Score 4-6, Start date: 06/04/14 16:54:00, Duration: 4 doses or times, Stop date: Limited # of times Cefoxitin 2 gm, Route: Inactive IVPB, ONCE, 2013 [facility] Dosing Weight 115.909, kg, Start date: 06/04/14 8:01:00, Stop date: 06/04/14 8:01:00 heparin sodium, 5,000 unit, Inactive porcine 2500 Route: SUB-Q, 2013 [facility] UNT/ML Injectable Drug form: Solution INJ, ONCE, Dosing Weight 115.909, kg, Start date: 06/04/14 7:59:00, Stop date: 06/04/14 7:59:00 Calcium Chloride 1,000 mL, Inactive 0.0014 MEQ/ML / Rate: 25 2013 [facility] Potassium Chloride ml/hr, Infuse 0.004 MEQ/ML / over: 40 hr, Sodium Chloride Route: IV, 0.103 MEQ/ML / Dosing Weight Sodium Lactate 115.909 kg, 0.028 MEQ/ML Total Volume: Injectable 1,000, Start Solution date: 06/04/14 7:57:00, Duration: 30 day, Stop date: 07/04/14 7:56:00 Protonix 40 mg, PO, Active BID, # 30 tab, 2013 0 Refill(s) Ranitidine 150 MG 150 mg=1 tab, Active Oral Tablet PO, QID, # 60 2013 [facility] [Zantac] tab, 0 Refill(s) topiramate 100 MG 100 mg=1 tab, Active Oral Tablet PO, BID, # 30 2014 [facility] [Topamax] tab, 0 Refill(s) dexlansoprazole 60 PO, BID, 0 Active MG Enteric Coated Refill(s) 2013 [facility] Capsule [Dexilant] Ondansetron 4 MG 4 mg=1 tab, Active Oral Tablet PO, ONCE, # 3 2013 [facility] [Zofran] tab, 0 Refill(s) Promethazine 25 mg=1 tab, Active Hydrochloride 25 PO, Q4H, 2013 [facility] MG Oral Tablet Nausea, # 15 [Phenergan] tab, 0 Refill(s) ZOFRAN ODT 4 MG 1-2 tablets No Longer Medical TBDP under your Active 2013 Group tongue q8 hours as needed for severe nausea RANITIDINE HCL 150 1 tablet twice [facility] MG TABS daily for 2014 Group stomach RANITIDINE HCL 150 1 tablet twice [facility] MG TABS daily for Active 2013 Group stomach RANITIDINE HCL 150 1 tablet twice [facility] MG TABS daily for Active 2013 Group stomach RANITIDINE HCL 150 1 tablet twice [facility] MG TABS daily for Active 2013 Group stomach RANITIDINE HCL 150 1 tablet twice [facility] MG TABS daily for Active 2013 Group stomach VITAMIN D Take 1 capsule [facility] (ERGOCALCIFEROL) by mouth every 2013 Group [id number] UNIT CAPS week for 12 weeks VITAMIN D Take 1 capsule [facility] (ERGOCALCIFEROL) by mouth every Active 2013 Group [id number] UNIT CAPS week for 12 weeks VITAMIN D Take 1 capsule [facility] (ERGOCALCIFEROL) by mouth every Active 2013 Group [id number] UNIT CAPS week for 12 weeks PANTOPRAZOLE 40 mg po daily [facility] SODIUM 40 MG TBEC 2013 Group TOPAMAX 100 MG 1 tab po bid [facility] TABS for seizures Active 2013 Group PROMETHAZINE HCL 1 tablet once [facility] 25 MG TABS or twice daily Active 2013 Group as needed for nausea/vomitin g AZITHROMYCIN 250 2 tablets [facility] MG TABS daily for 1 Active 2013 Group day, then 1 tablet daily for 4 days PANTOPRAZOLE 40 mg po daily [facility] SODIUM 40 MG TBEC Active 2013 Group PROMETHAZINE HCL 1 tablet once [facility] 25 MG TABS or twice daily Active 2013 Group as needed for nausea/vomitin g PANTOPRAZOLE 40 mg po daily [facility] SODIUM 40 MG TBEC Active 2013 Group PROMETHAZINE HCL 1 tablet once [facility] 25 MG TABS or twice daily Active 2013 Group as needed for nausea/vomitin g PROMETHAZINE HCL 1 tablet once [facility] 25 MG TABS or twice daily Active 2013 Group as needed for nausea/vomitin g Allergies, Adverse Reactions, Alerts Substance Category Reaction Severity Reaction Status Date Comments Source type Reported CODEINE Drug CODEINE MH allergy 4 [facility] MORPHINE Drug MORPHINE MH allergy 4 [facility] NEXIUM Drug NEXIUM MH allergy 4 [facility] DEMEROL Drug DEMEROL MH allergy 4 [facility] CEPHALOSPORI Drug CEPHALOSPOR NS allergy INS [facility] cephalospori Assertion Drug Active Data 2.0 ns<sup>1</carl allergy 4 migrated .1.89285 p> from GE 3.3.615. [facility] 134 on 06/06/15. Originally documented as CEPHALOSPO RINS. heart problems esomeprazole Assertion Drug Active Data MH <sup>2</sup> allergy 4 migrated [facility] from GE t [facility] on 03/07/15. Originally documented as NEXIUM. codeine meperidine<s Assertion Drug Active Data 2.0 up>3</sup> allergy 4 migrated .1.71032 from GE 3.3.615. [facility] 134 on 03/07/15. Originally documented as DEMEROL. heart problems morphine<sup Assertion Drug Active Data 2.160 >4</sup> allergy 4 migrated .1.16037 from GE 3.3.615. [facility] 134 on 03/07/15. Originally documented as MORPHINE. heart problems codeine<sup> Assertion Drug Active Data 2.840 2</sup> allergy 4 migrated .1.46036 from GE 3.3.615. [facility] 134 on 01/08/16. Originally documented as CODEINE. heart problems esomeprazole Assertion Drug Active Data MH <sup>3</sup> allergy 4 migrated [place] from GE t [facility] on 03/07/15. Originally documented as NEXIUM. codeine meperidine<s Assertion Drug Active Data MH up>4</sup> allergy 4 migrated [facility] from GE t [facility] on 03/07/15. Originally documented as DEMEROL. heart problems morphine<sup Assertion Drug Active Data MH >5</sup> allergy 4 migrated [place] from GE t [facility] on 03/07/15. Originally documented as MORPHINE. heart problems esomeprazole Assertion Drug Active Data 2.16.840 <sup>6</sup> allergy 4 migrated .1.05903 from GE 3.3.615. [facility] 134 on 03/07/15. Originally documented as NEXIUM. codeine AMBIEN Drug AMBIEN MH allergy 5 [facility] zolpidem<sup Assertion Drug Active Data 2.16.840 >5</sup> allergy 5 migrated .1.52582 from GE 3.3.615. [facility] 134 on 05/16/15. Originally documented as AMBIEN. hallucinat ions when in the ICU zolpidem<sup Assertion Drug Active Data MH >6</sup> allergy 5 migrated [facility] from GE t [facility] on 05/16/15. Originally documented as AMBIEN. hallucinat ions when in the ICU cephalospori Assertion Drug Active MH ns allergy [place] t codeine Assertion Drug Active MH allergy [place] t Demerol HCl Assertion Drug Active 2.16.840 allergy .1.91666 3.3.615. 134 morphine Assertion Drug Active MH allergy [place] t NexIUM Assertion patient Drug Active 2.16.840 takes allergy .1.27069 PROTONIX 3.3.615. at home 134 Allergy Assertion flu shots Drug Active MH Unverified allergy [place] t Influenza Assertion Drug Active MH Virus allergy [facility] Vaccine t clindamycin Assertion Drug Active 2.16.840 allergy .1.71257 3.3.615. 134 Zofran Assertion Drug Active 2.16.840 allergy .1.24108 3.3.615. 134 Immunizations Immunization Date Site Status Last Comments Source Given Updated pneumococcal Left completed Mary al Mischer 23-valent 9 deltoid [facility],2.16.84 vaccine [id number]. 615.134,[facility] influenza virus Left completed Mary al Mischer vaccine, 9 deltoid [facility],2.16.84 inactivated [id number]. 615.134,[facility] pneumococcal Right completed Johann Mischer 13-valent 6 deltoid Neuro,2.16.84 vaccine [id number]. 615.134,[facility], OPID [place] pneumococcal Not Given Mischer 23-valent 4 Neuro,[facility] vaccine [facility],2.16.8 [id number] .615.134,[facility] [place] Results Order Name Results Value Reference Date Interpretation Comments Source Range CHEM PANEL Phosphorus 3.1 2.5 - 4.5 11/28 [facility] CHEM PANEL Magnesium 2.1 1.8 - 2.4 11/28 Lv [facility] ELECTROLYT AGAP 10.9 10.0 - 11/28 ES .0 [facility] ELECTROLYT eGFR 132 11/28 Result Comment: The [facility] eGFR is calculated using the CKD-EPI formula. In most young, healthy individuals the eGFR will be >90 mL/min/1.73m2 . The eGFR declines with age. An eGFR of 60-89 may be normal in some populations, particularly the elderly, for whom the CKD-EPI formula has not been extensively validated. Use of the eGFR is not recommended in the following populations:< br/>
Shannan viduals with unstable creatinine concentration s, including patients and those with serious co-morbid conditions.<b r/>
Patie nts with extremes in muscle mass or diet.

The data above are obtained from the National Kidney Disease Education Program (NKDEP) which additionally recommends that when the eGFR is used in patients with extremes of body mass index for purposes of drug dosing, the eGFR should be multiplied by the estimated BMI. ELECTROLYT CO2 25 24 - 32 11/28 ES [facility] ELECTROLYT Potassium 3.9 3.5 - 5.1 01/21 ES Lvl /2018 [facility] ELECTROLYT Chloride Lvl 110 95 - 109 11/28 ES [facility] ELECTROLYT Creatinine 0.36 0.50 - 11/28 ES Lvl 1.40 [facility] ELECT[facility]OLYT Sodium Lvl 142 135 - 145 11/28 [facility]LECT[facility] Glucose Lvl 108 70 - 99 11/28 [facility] ELECTROLYT BUN 10 7 - 22 11/28 ES [facility] ELECTROLYT Calcium Lvl 7.9 8.5 - 10.5 11/28 ES /2018 [facility] HEMATOLOGY Eosinophils 0.5 0.0 - 0.5 11/28 # /2018 [facility] HEMATOLOGY Lymphocytes 1.8 1.0 - 5.5 11/28 # /2018 [facility] HEMATOLOGY Monocytes # 0.8 0.0 - 0.8 11/28 [facility] HEMATOLOGY Neutrophils 5.8 1.5 - 8.1 11/28 /2018 [facility] HEMATOLOGY Eosinophils 5.9 0.0 - 4.0 11/28 [facility] HEMATOLOGY Monocytes 8.5 2.0 - 12.0 11/28 [facility] HEMATOLOGY Lymphocytes 20.5 20.0 - 11/28 40.0 [facility] HEMATOLOG[facility] Segs 64.7 45.0 - 11/28 75.0 [facility] HEMATOLOGY Basophils 0.4 0.0 - 1.0 11/28 [facility] HEMATOLOGY MPV 8.1 7.4 - 10.4 11/28 [facility] HEMATOLOGY RBC 3.39 4.20 - 11/28 5.40 [facility] HEMATOLOG[facility] WBC 8.9 3.7 - 10.4 11/28 [facility] HEMATOLOGY Platelet 193 133 - 450 11/28 [facility] HEMATOLOGY MCHC 31.4 32.0 - 11/28 36.0 /2018 [facility] HEMATOLOGY MCV 86.5 80.0 - 11/28 98.0 [facility] HEMATOLOGY Hct 29.3 36.0 - 11/28 48.0 [facility] HEMATOLOGY RDW 23.9 11.5 - 11/28 14.5 [facility] HEMATOLOGY MCH 27.1 27.0 - 11/28 31.0 [facility] HEMATOLOGY Hgb 9.2 12.0 - 11/28 16.0 [facility] CHEM PANEL Phosphorus 2.8 2.5 - 4.5 11/27 [facility] CHEM PANEL eGFR 128 11/27 Result Comment: The [facility] eGFR is calculated using the CKD-EPI formula. In most young, healthy individuals the eGFR will be >90 mL/min/1.73m2 . The eGFR declines with age. An eGFR of 60-89 may be normal in some populations, particularly the elderly, for whom the CKD-EPI formula has not been extensively validated. Use of the eGFR is not recommended in the following populations:< br/>
Shannan viduals with unstable creatinine concentration s, including patients and those with serious co-morbid conditions.<b r/>
Patie nts with extremes in muscle mass or diet.

The data above are obtained from the National Kidney Disease Education Program (NKDEP) which additionally recommends that when the eGFR is used in patients with extremes of body mass index for purposes of drug dosing, the eGFR should be multiplied by the estimated BMI. CHEM PANEL Calcium Lvl 7.9 8.5 - 10.5 11/27 [facility] CHEM PANEL AGAP 9.8 10.0 - 11/27 20. [facility] CHEM PANEL CO2 27 24 - 32 11/27 [facility] CHEM PANEL Chloride Lvl 109 95 - 109 11/27 [facility] CHEM PANEL Potassium 3.8 3.5 - 5.1 11/27 [facility] CHEM PANEL Sodium Lvl 142 135 - 145 11/27 [facility] CHEM PANEL BUN 9 7 - 22 11/27 [facility] CHEM PANEL Glucose Lvl 100 70 - 99 11/27 [facility] CHEM PANEL Creatinine 0.40 0.50 - 11/27 MH Lvl 1.40 /2018 [facility] CHEM PANEL Magnesium 2.1 1.8 - 2.4 11/27 [facility] HEMATOLOGY Platelet 234 133 - 450 11/27 [facility] HEMATOLOGY MPV 7.7 7.4 - 10.4 11/27 [facility] HEMATOLOGY Hct 30.3 36.0 - 11/27 MH 48.0 [facility] HEMATOLOGY MCV 83.4 80.0 - 11/27 MH 98.0 [facility] HEMATOLOGY Hgb 9.6 12.0 - 11/27 16.0 [facility] HEMATOLOGY RBC 3.63 4.20 - 11/27 MH 5.40 [facility] HEMATOLOGY WBC 10.1 3.7 - 10.4 11/27 [facility] HEMATOLOGY MCHC 31.7 32.0 - 11/27 MH 36.0 [facility] HEMATOLOGY MCH 26.5 27.0 - 11/27 MH 31.0 [facility] HEMATOLOGY RDW 22.9 11.5 - 11/27 MH 14.5 [facility] PARATHYROI Ca Norm WB 1.07 1.05 - 11/26 D PROFILE . [facility] PARATHYROI Ca Ion WB 1.09 1.05 - 11/26 D PROFILE . [facility] ANEMIA Vitamin B12 390 254 - 1320 11/26 STUDY Lv [facility] CHEM PANEL Phosphorus 2.8 2.5 - 4.5 11/26 [facility] CHEM PANEL BUN 10 7 - 22 11/26 [facility] CHEM PANEL Creatinine 0.37 0.50 - 11/26 Lvl 1. [facility] CHEM PANEL CO2 23 24 - 32 11/26 [facility] CHEM PANEL eGFR 132 11/26 Result Comment: The [facility] eGFR is calculated using the CKD-EPI formula. In most young, healthy individuals the eGFR will be >90 mL/min/1.73m2 . The eGFR declines with age. An eGFR of 60-89 may be normal in some populations, particularly the elderly, for whom the CKD-EPI formula has not been extensively validated. Use of the eGFR is not recommended in the following populations:< br/>
Shannan viduals with unstable creatinine concentration s, including patients and those with serious co-morbid conditions.<b r/>
Patie nts with extremes in muscle mass or diet.

The data above are obtained from the National Kidney Disease Education Program (NKDEP) which additionally recommends that when the eGFR is used in patients with extremes of body mass index for purposes of drug dosing, the eGFR should be multiplied by the estimated BMI. CHEM PANEL Glucose Lvl 107 70 - 99 11/26 [facility] CHEM PANEL Potassium 3.8 3.5 - 5.1 11/26 Lv [facility] CHEM PANEL Chloride Lvl 110 95 - 109 11/26 [facility] CHEM PANEL Sodium Lvl 140 135 - 145 11/26 [facility] CHEM PANEL Calcium Lvl 7.6 8.5 - 10.5 11/26 [facility] CHEM PANEL AGAP 10.8 10.0 - 11/26 20. [facility] CHEM PANEL Calcium Lvl 7.6 8.5 - 10.5 11/26 [facility] CHEM PANEL eGFR 130 11/26 Result Comment: The [facility] eGFR is calculated using the CKD-EPI formula. In most young, healthy individuals the eGFR will be >90 mL/min/1.73m2 . The eGFR declines with age. An eGFR of 60-89 may be normal in some populations, particularly the elderly, for whom the CKD-EPI formula has not been extensively validated. Use of the eGFR is not recommended in the following populations:< br/>
Shannan viduals with unstable creatinine concentration s, including patients and those with serious co-morbid conditions.<b r/>
Patie nts with extremes in muscle mass or diet.

The data above are obtained from the National Kidney Disease Education Program (NKDEP) which additionally recommends that when the eGFR is used in patients with extremes of body mass index for purposes of drug dosing, the eGFR should be multiplied by the estimated BMI. CHEM PANEL Glucose Lvl 109 70 - 99 11/26 [facility] CHEM PANEL BUN 10 7 - 22 11/26 [facility] CHEM PANEL Chloride Lvl 109 95 - 109 11/26 [facility] CHEM PANEL Sodium Lvl 140 135 - 145 11/26 [facility] CHEM PANEL CO2 24 24 - 32 11/26 [facility] CHEM PANEL Potassium 3.8 3.5 - 5.1 11/26 [facility] CHEM PANEL Creatinine 0.38 0.50 - 11/26 Lvl 1.40 [facility] CHEM PANEL AGAP 10.8 10.0 - 11/26 MH 20. [facility] CHEM PANEL Magnesium 2.0 1.8 - 2.4 11/26 [facility] ENDOCRINOL S Preg Negative Negative 11/26 OGY *NA* /2018 [facility] (11/26/18 5:05 AM) HEMATOLOGY MCH 26.7 27.0 - 11/26 MH 31.0 [facility] HEMATOLOGY Platelet 202 133 - 450 11/26 [facility] HEMATOLOGY MPV 7.6 7.4 - 10.4 11/26 [facility] HEMATOLOGY RDW 21.8 11.5 - 11/26 MH 14.5 /2018 [facility] HEMATOLOGY MCHC 31.7 32.0 - 11/26 MH 36.0 /2018 [facility] HEMATOLOGY Hct 27.4 36.0 - 11/26 MH 48.0 /2018 [facility] HEMATOLOGY MCV 84.2 80.0 - 11/26 MH 98.0 [facility] HEMATOLOGY WBC 7.1 3.7 - 10.4 11/26 [facility] HEMATOLOGY Hgb 8.7 12.0 - 11/26 MH 16.0 [facility] HEMATOLOGY RBC 3.25 4.20 - 11/26 MH 5.40 [facility] HEMATOLOGY Lymphocytes 20.6 20.0 - 11/26 MH 40.0 [facility] HEMATOLOGY Monocytes 7.5 2.0 - 12.0 11/26 [facility] HEMATOLOGY Segs 65.2 45.0 - 11/26 MH 75.0 [facility] HEMATOLOGY Eosinophils 0.4 0.0 - 0.5 11/26 /2018 [facility] HEMATOLOGY Lymphocytes 1.5 1.0 - 5.5 11/26 MH # /2018 [facility] HEMATOLOGY Neutrophils 4.6 1.5 - 8.1 11/26 /2018 [facility] HEMATOLOGY Monocytes # 0.5 0.0 - 0.8 11/26 [facility] HEMATOLOGY Basophils 0.4 0.0 - 1.0 11/26 [facility] HEMATOLOGY Eosinophils 6.3 0.0 - 4.0 11/26 [facility] HEMATOLOGY Eosinophils 0.4 0.0 - 0.5 11/25 [facility] HEMATOLOGY Lymphocytes 17.0 20.0 - 11/25 MH 40.0 [facility] HEMATOLOGY Monocytes 7.3 2.0 - 12.0 11/25 [facility] HEMATOLOGY Monocytes # 0.6 0.0 - 0.8 11/25 [facility] HEMATOLOGY Segs 70.5 45.0 - 11/25 MH 75.0 [facility] HEMATOLOGY Neutrophils 5.6 1.5 - 8.1 11/25 /2018 [facility] HEMATOLOGY Lymphocytes 1.3 1.0 - 5.5 11/25 [facility] HEMATOLOGY Eosinophils 4.7 0.0 - 4.0 11/25 [facility] HEMATOLOGY Basophils 0.5 0.0 - 1.0 11/25 [facility] URINE AND UA Nitrite Negative Negative 11/25 STO[facility] (11/25/18 1:45 AM) [facility] URINE AND UA <=1.0 0.1 - 1.0 11/25 STOOL Urobilinogen mg/dL /2018 [facility] URINE AND UA Blood Large Negative 11/25 STOOL *ABN* [facility] (11/25/18 1:45 AM) URINE AND UA Bili Negative Negative 11/25 STOOL *NA [facility] (11/25/18 1:45 AM) URINE AND UA Ketones Negative Negative 11/25 STOOL *NA* [facility] (11/25/18 1:45 AM) URINE AND UA Leuk Est Small Negative 11/25 STOOL *ABN* [facility] (11/25/18 1:45 AM) URINE AND UA Glucose Negative Negative 11/25 STOOL *NA* [facility] (11/25/18 1:45 AM) URINE AND UA Spec Grav 1.029 <=1.030 11/25 STOOL [facility] URINE AND UA Turbidity Slight Clear 11/25 STOOL *ABN* [facility] (11/25/18 1:45 AM) URINE AND UA Protein 30 mg/dL Negative 11/25 STOOL mg/dL [facility] URINE AND UA pH 5.0 5.0 - 8.0 11/25 [facility] URINE AND UA RBC >182 0 - 2 11/25 [facility] URINE AND UA Mucus Few /LPF None Seen 11/25 STOOL /LPF [facility] URINE AND UA WBC 5 0 - 5 11/25 STOOL [facility] URINE AND UA [place] Yeast Occasional None Seen 11/25 STOOL /HPF /HPF [facility] URINE AND UA CaOx [place] Occasional None Seen 11/25 STOOL /HPF /HPF [facility] URINE AND UA Sq Epi Occasional Few /LPF 11/25 STOOL /LPF [facility] URINE AND UA Color Yellow Yellow 11/25 STOOL *NA* [facility] (11/25/18 1:45 AM) Culture: No Growth 11/25 Urine [facility] LIPIDS Trig 163 <=149 11/24 mg/dL [facility] CHEM PANEL Alk Phos 115 39 - 136 11/24 [facility] CHEM PANEL Bili Total 0.3 0.2 - 1.3 11/24 [facility] CHEM PANEL A/G Ratio 0.8 0.7 - 1.6 11/24 [facility] CHEM PANEL ALT 23 0 - 65 11/24 [facility] CHEM PANEL Globulin 3.5 2.7 - 4.2 11/24 [facility] CHEM PANEL AST 24 0 - 37 11/24 [facility] CHEM PANEL Albumin Lvl 2.8 3.5 - 5.0 11/24 [facility] CHEM PANEL Total 6.3 6.4 - 8.4 11/24 Protein [facility] CHEM PANEL B/C Ratio 8 6 - 25 11/24 [facility] LIPIDS Trig 173 <=149 11/24 mg/dL [facility] ANEMIA TIBC 390 228 - 428 11/23 STUDY [facility] ANEMIA % Satur Fe 101 12 - 57 11/23 STUDY [facility] ANEMIA Iron 392 30 - 160 11/23 [facility] ANEMIA UIBC -2 110 - 370 11/23 STUDY [facility] ANEMIA Ferritin Lvl 171 5 - 204 11/23 [facility] CHEM PANEL Bili Direct <0.1 0.0 - 0.3 11/23 [facility] CHEM PANEL AST 32 0 - 37 11/23 [facility] CHEM PANEL ALT 32 0 - 65 11/23 [facility] CHEM PANEL Albumin Lvl 3.1 3.5 - 5.0 11/23 [facility] CHEM PANEL Total 6.7 6.4 - 8.4 11/23 [facility] CHEM PANEL Bili Total 0.1 0.2 - 1.3 11/23 [facility] CHEM PANEL Alk Phos 127 39 - 136 11/23 [facility] CHEM PANEL A/G Ratio 0.9 0.7 - 1.6 11/23 [facility] CHEM PANEL Globulin 3.6 2.7 - 4.2 11/23 [facility] CHEM PANEL Bili >0.0 0.0 - 1.0 11/23 [facility] HEMATOLOGY PTT 30.8 22.9 - 11/23 35.8 /2019 [facility] HEMATOLOGY INR 0.96 0.85 - 11/23 1. [facility] HEMATOLOGY PT 12.6 12.0 - 11/23 14.7 2019 [facility] HEMATOLOGY Retic Auto 2.2 0.5 - 1.5 11/23 [facility] CHEM PANEL eGFR 130 10/06 Result Comment: The [facility] eGFR is calculated using the CKD-EPI formula. In most young, healthy individuals the eGFR will be >90 mL/min/1.73m2 . The eGFR declines with age. An eGFR of 60-89 may be normal in some populations, particularly the elderly, for whom the CKD-EPI formula has not been extensively validated. Use of the eGFR is not recommended in the following populations:< br/>
Shannan viduals with unstable creatinine concentration s, including patients and those with serious co-morbid conditions.<b r/>
Patie nts with extremes in muscle mass or diet.

The data above are obtained from the National Kidney Disease Education Program (NKDEP) which additionally recommends that when the eGFR is used in patients with extremes of body mass index for purposes of drug dosing, the eGFR should be multiplied by the estimated BMI. CHEM PANEL Bili Total 0.2 0.2 - 1.3 10/06 [facility] CHEM PANEL Alk Phos 345 39 - 136 10/06 [facility] CHEM PANEL AST 69 0 - 37 10/06 [facility] CHEM PANEL Calcium Lvl 7.4 8.5 - 10.5 10/06 [facility] CHEM PANEL CO2 19 24 - 32 10/06 [facility] CHEM PANEL BUN 7 7 - 22 10/06 [facility] CHEM PANEL Glucose Lvl 79 70 - 99 10/06 [facility] CHEM PANEL Potassium 3.8 3.5 - 5.1 10/06 Lvl [facility] CHEM PANEL Sodium Lvl 144 135 - 145 10/06 [facility] CHEM PANEL Creatinine 0.41 0.50 - 11 MH Lvl 1.40 [facility] CHEM PANEL Chloride Lvl 115 95 - 109 10/06 [facility] CHEM PANEL ALT 88 0 - 65 10/06 [facility] CHEM PANEL Albumin Lvl 2.0 3.5 - 5.0 10/06 [facility] CHEM PANEL Total 5.9 6.4 - 8.4 10/06 Protein [facility] CHEM PANEL A/G Ratio 0.5 0.7 - 1.6 10/06 [facility] CHEM PANEL AGAP 13.8 10.0 - 10/06 MH 20.0 [facility] CHEM PANEL Globulin 3.9 2.7 - 4.2 10/06 [facility] CHEM PANEL B/C Ratio 17 6 - 25 10/06 [facility] HEMATOLOGY Eosinophils 0.2 0.0 - 0.5 10/06 MH # /2016 [facility] HEMATOLOGY Basophils 0.2 0.0 - 1.0 10/06 [facility] HEMATOLOGY Eosinophils 4.1 0.0 - 4.0 10/06 [facility] HEMATOLOGY Monocytes 10.8 2.0 - 12.0 10/06 [facility] HEMATOLOGY Lymphocytes 32.2 20.0 - 10/06 MH 40.0 /2015 [facility] HEMATOLOGY Monocytes # 0.4 0.0 - 0.8 10/06 [facility] HEMATOLOGY Lymphocytes 1.3 1.0 - 5.5 10/06 MH # /2015 [facility] HEMATOLOGY Segs-Bands # 2.1 1.5 - 8.1 10/06 [facility] HEMATOLOGY Segs 52.7 45.0 - 10/06 MH 75.0 /2015 [facility] HEMATOLOGY Hgb 8.1 12.0 - 10/06 16.0 [facility] HEMATOLOGY RBC 3.17 4.20 - 10/06 MH 5.40 /2015 [facility] HEMATOLOGY WBC 4.1 3.7 - 10.4 10/06 [facility] HEMATOLOGY MPV 8.5 7.4 - 10.4 10/06 [facility] HEMATOLOGY Hct 25.1 36.0 - 10/06 48.0 /2015 [facility] HEMATOLOGY Platelet 174 133 - 450 10/06 [facility] HEMATOLOGY RDW 17.8 11.5 - 10/06 14.5 /2015 [facility] HEMATOLOGY MCHC 32.5 32.0 - 10/06 36.0 [facility] HEMATOLOGY MCH 25.7 27.0 - 10/06 31.0 [facility] HEMATOLOGY MCV 79.1 80.0 - 10/06 98.0 /2015 [facility] URINE AND Fecal None Seen 10/05 STOOL Leukocyte (10/05/16 1:00 PM) /2015 [facility] CHEM PANEL Glucose Lvl 108 70 - 99 10/05 [facility] CHEM PANEL AST 36 0 - 37 10/05 [facility] CHEM PANEL Total 6.0 6.4 - 8.4 10/05 [facility] CHEM PANEL Calcium Lvl 7.5 8.5 - 10.5 10/05 [facility] CHEM PANEL ALT 77 0 - 65 10/05 [facility] CHEM PANEL Albumin Lvl 2.3 3.5 - 5.0 10/05 [facility] CHEM PANEL eGFR 121 10/05 [facility] Comment: The [facility] eGFR is calculated using the CKD-EPI formula. In most young, healthy individuals the eGFR will be >90 mL/min/1.73m2 . The eGFR declines with age. An eGFR of 60-89 may be normal in some populations, particularly the elderly, for whom the CKD-EPI formula has not been extensively validated. Use of the eGFR is not recommended in the following populations:< br/>
Shannan viduals with unstable creatinine concentration s, including patients and those with serious co-morbid conditions.<b r/>
Patie nts with extremes in muscle mass or diet.

The data above are obtained from the National Kidney Disease Education Program (NKDEP) which additionally recommends that when the eGFR is used in patients with extremes of body mass index for purposes of drug dosing, the eGFR should be multiplied by the estimated BMI. CHEM PANEL Bili Total 0.4 0.2 - 1.3 10/05 [facility] CHEM PANEL Alk Phos 348 39 - 136 10/05 [facility] CHEM PANEL CO2 21 24 - 32 10/05 [facility] CHEM PANEL Potassium 4.0 3.5 - 5.1 10/05 MH Lvl /2015 [facility] CHEM PANEL Sodium Lvl 143 135 - 145 10/05 [facility] CHEM PANEL Chloride Lvl 114 95 - 109 10/05 [facility] CHEM PANEL Creatinine 0.50 0.50 - 10/05 Lvl 1.40 [facility] CHEM PANEL BUN 9 7 - 22 10/05 [facility] CHEM PANEL Globulin 3.7 2.7 - 4.2 10/05 [facility] CHEM PANEL A/G Ratio 0.6 0.7 - 1.6 10/05 [facility] CHEM PANEL B/C Ratio 18 6 - 25 10/05 [facility] CHEM PANEL AGAP 12.0 10.0 - 10/05 MH 20.0 [facility] HEMATOLOGY MPV 8.5 7.4 - 10.4 10/05 [facility] HEMATOLOGY Platelet 174 133 - 450 10/05 [facility] HEMATOLOGY MCHC 32.2 32.0 - 10/05 36.0 /2015 [facility] HEMATOLOGY RDW 17.1 11.5 - 10/05 MH 14.5 /2015 [facility] HEMATOLOGY MCH 25.3 27.0 - 10/05 31.0 /2015 [facility] HEMATOLOGY Hct 26.2 36.0 - 10/05 MH 48.0 /2015 [facility] HEMATOLOGY MCV 78.6 80.0 - 10/05 98.0 /2015 [facility] HEMATOLOGY Hgb 8.4 12.0 - 10/05 MH 16.0 /2015 [facility] HEMATOLOGY RBC 3.33 4.20 - 10/05 MH 5.40 /2015 [facility] HEMATOLOGY WBC 4.7 3.7 - 10.4 10/05 [facility] HEMATOLOGY Segs-Bands # 2.8 1.5 - 8.1 10/05 [facility] HEMATOLOGY Lymphocytes 1.1 1.0 - 5.5 10/05 MH # /2016 [facility] HEMATOLOGY Basophils 0.3 0.0 - 1.0 10/05 [facility] HEMATOLOGY Monocytes # 0.6 0.0 - 0.8 10/05 [facility] HEMATOLOGY Eosinophils 4.1 0.0 - 4.0 10/05 [facility] HEMATOLOGY Microcyte 1+ None Seen 10/05 *ABN* /2015 [facility] (10/05/16 6:07 AM) HEMATOLOGY Eosinophils 0.2 0.0 - 0.5 10/05 MH # /2016 [facility] HEMATOLOGY Segs 60.2 45.0 - 10/05 75.0 /2015 [facility] HEMATOLOGY Monocytes 12.5 2.0 - 12.0 10/05 [facility] HEMATOLOGY Lymphocytes 22.9 20.0 - 10/05 40.0 [facility] CHEM PANEL eGFR 105 10/04 Result Comment: The [facility] eGFR is calculated using the CKD-EPI formula. In most young, healthy individuals the eGFR will be >90 mL/min/1.73m2 . The eGFR declines with age. An eGFR of 60-89 may be normal in some populations, particularly the elderly, for whom the CKD-EPI formula has not been extensively validated. Use of the eGFR is not recommended in the following populations:< br/>
Shannan viduals with unstable creatinine concentration s, including patients and those with serious co-morbid conditions.<b r/>
Patie nts with extremes in muscle mass or diet.

The data above are obtained from the National Kidney Disease Education Program (NKDEP) which additionally recommends that when the eGFR is used in patients with extremes of body mass index for purposes of drug dosing, the eGFR should be multiplied by the estimated BMI. CHEM PANEL Globulin 3.8 2.7 - 4.2 10/04 [facility] CHEM PANEL A/G Ratio 0.7 0.7 - 1.6 10/04 [facility] CHEM PANEL B/C Ratio 11 6 - 25 10/04 [facility] CHEM PANEL ALT 101 0 - 65 10/04 [facility] CHEM PANEL AST 54 0 - 37 10/04 [facility] CHEM PANEL Alk Phos 372 39 - 136 10/04 [facility] CHEM PANEL Sodium Lvl 139 135 - 145 10/04 [facility] CHEM PANEL Creatinine 0.72 0.50 - 10/04 MH Lvl 1.40 [facility] CHEM PANEL AGAP 13.1 10.0 - 10/04 MH 20.0 [facility] CHEM PANEL Calcium Lvl 7.1 8.5 - 10.5 10/04 [facility] CHEM PANEL Chloride Lvl 108 95 - 109 10/04 [facility] CHEM PANEL CO2 21 24 - 32 10/04 [facility] CHEM PANEL Potassium 3.1 3.5 - 5.1 10/04 MH Lvl [facility] CHEM PANEL Total 6.3 6.4 - 8.4 10/04 [facility] CHEM PANEL Albumin Lvl 2.5 3.5 - 5.0 10/04 [facility] CHEM PANEL BUN 8 7 - 22 10/04 [facility] CHEM PANEL Glucose Lvl 178 70 - 99 10/04 [facility] CHEM PANEL Bili Total 0.5 0.2 - 1.3 10/04 [facility] CHEM PANEL Bili Direct 0.1 0.0 - 0.3 10/04 [facility] HEMATOLOGY PT 15.4 12.0 - 10/04 MH 14.7 [facility] HEMATOLOGY INR 1.19 0.85 - 10/04 MH 1.17 [facility] HEMATOLOGY PTT 39.3 22.9 - 10/04 MH 35.8 [facility] HEMATOLOGY MCV 79.5 80.0 - 10/04 MH 98.0 [facility] HEMATOLOGY Hct 27.0 36.0 - 10/04 MH 48.0 /2015 [facility] HEMATOLOGY RDW 17.1 11.5 - 10/04 MH 14.5 /2015 [facility] HEMATOLOGY Platelet 172 133 - 450 10/04 /2015 [facility] HEMATOLOGY MCHC 31.2 32.0 - 10/04 MH 36.0 /2015 [facility] HEMATOLOGY MCH 24.8 27.0 - 10/04 MH 31.0 /2015 [facility] HEMATOLOGY MPV 8.6 7.4 - 10.4 10/04 /2015 [facility] HEMATOLOGY WBC 7.6 3.7 - 10.4 10/04 /2015 [facility] HEMATOLOGY Hgb 8.4 12.0 - 10/04 16.0 /2015 [facility] HEMATOLOGY RBC 3.39 4.20 - 10/04 MH 5.40 /2015 [facility] HEMATOLOGY Monocytes # 0.5 0.0 - 0.8 10/04 /2015 [facility] HEMATOLOGY Eosinophils 0.1 0.0 - 0.5 10/04 MH # /2015 [facility] HEMATOLOGY Segs-Bands # 6.0 1.5 - 8.1 10/04 /2015 [facility] HEMATOLOGY Lymphocytes 0.9 1.0 - 5.5 10/04 MH # /2016 [facility] HEMATOLOGY Segs 79.2 45.0 - 10/04 75.0 /2015 [facility] HEMATOLOGY Basophils 0.2 0.0 - 1.0 10/04 /2015 [facility] HEMATOLOGY Eosinophils 1.7 0.0 - 4.0 10/04 /2015 [facility] HEMATOLOGY Lymphocytes 11.9 20.0 - 10/04 40.0 /2015 [facility] HEMATOLOGY Monocytes 7.0 2.0 - 12.0 10/04 /2015 [facility] CHEM PANEL Phosphorus 2.8 2.5 - 4.5 10/03 [facility] CHEM PANEL Magnesium 1.9 1.8 - 2.4 10/03 Lvl /2015 [facility] HEMATOLOGY Sed Rate 52 0 - 20 10/03 [facility] IMMUNOLOGY C-REACTIVE 87.7 <=2.9 mg/L 10/03 PROTEIN /2015 [facility] URINE AND UA pH 6.0 5.0 - 8.0 10/03 STOOL [facility] URINE AND UA Protein Negative Negative 10/03 STOOL mg/dL mg/dL /2015 [facility] URINE AND UA Turbidity Marked Clear 10/03 STOOL *ABN* /2015 [facility] (10/03/16 10:29 AM) URINE AND UA Spec Grav 1.018 <=1.030 10/03 STOOL /2015 [facility] URINE AND UA Color Yellow Yellow 10/03 STOOL *NA* /2015 [facility] (10/03/16 10:29 AM) URINE AND UA Blood Negative Negative 10/03 STOOL (10/03/16 10:29 AM) [facility] URINE AND UA 4.0 0.1 - 1.0 10/03 STOOL Urobilinogen /2015 [facility] URINE AND UA Ketones Trace Negative 10/03 STOOL mg/dL mg/dL [facility] URINE AND UA Bili Negative Negative 10/03 STOOL *NA* /2015 [facility] (10/03/16 10:29 AM) URINE AND UA Glucose Negative Negative 10/03 STOOL mg/dL mg/dL [facility] URINE AND UA RBC 1 0 - 2 10/03 STOOL [facility] URINE AND UA Sq Epi Many /LPF Few /LPF 10/03 STOOL [facility] URINE AND UA WBC 6 0 - 5 10/03 STOOL [facility] URINE AND UA Nitrite Negative Negative 10/03 STOOL (10/03/16 10:29 AM) [facility] URINE AND UA Leuk Est Small Negative 10/03 STOOL *ABN* /2015 [facility] (10/03/16 10:29 AM) URINE AND UA Bacteria Occasional None Seen 10/03 STOOL /HPF /HPF [facility] URINE AND UA Mucus Many /LPF None Seen 10/03 STOOL /LPF /2015 [facility] CHEM PANEL Creatinine 0.54 0.50 - 09/26 Lvl 1.40 [facility] CHEM PANEL Albumin Lvl 2.6 3.5 - 5.0 09/26 [facility] CHEM PANEL BUN 10 7 - 22 09/26 [facility] CHEM PANEL Glucose Lvl 104 70 - 99 09/26 [facility] CHEM PANEL Total 6.7 6.4 - 8.4 09/26 Protein [facility] CHEM PANEL CO2 24 24 - 32 09/26 [facility] CHEM PANEL Calcium Lvl 7.7 8.5 - 10.5 09/26 [facility] CHEM PANEL Chloride Lvl 111 95 - 109 09/26 [facility] CHEM PANEL Bili Total <0.1 0.2 - 1.3 09/26 [facility] CHEM PANEL ALT 235 0 - 65 09/26 [facility] CHEM PANEL Alk Phos 452 39 - 136 09/26 [facility] CHEM PANEL AST 94 0 - 37 09/26 [facility] CHEM PANEL Sodium Lvl 141 135 - 145 09/26 [facility] CHEM PANEL Potassium 3.6 3.5 - 5.1 09/26 MH Lvl /2015 [facility] CHEM PANEL eGFR 118 09/26 Result Comment: The [facility] eGFR is calculated using the CKD-EPI formula. In most young, healthy individuals the eGFR will be >90 mL/min/1.73m2 . The eGFR declines with age. An eGFR of 60-89 may be normal in some populations, particularly the elderly, for whom the CKD-EPI formula has not been extensively validated. Use of the eGFR is not recommended in the following populations:< br/>
Shannan viduals with unstable creatinine concentration s, including patients and those with serious co-morbid conditions.<b r/>
Patie nts with extremes in muscle mass or diet.

The data above are obtained from the National Kidney Disease Education Program (NKDEP) which additionally recommends that when the eGFR is used in patients with extremes of body mass index for purposes of drug dosing, the eGFR should be multiplied by the estimated BMI. CHEM PANEL Globulin 4.1 2.7 - 4.2 09/26 [facility] CHEM PANEL B/C Ratio 19 6 - 25 09/26 [facility] CHEM PANEL AGAP 9.6 10.0 - 09/26 MH 20.0 [facility] CHEM PANEL A/G Ratio 0.6 0.7 - 1.6 09/26 [facility] HEMATOLOGY Platelet 167 133 - 450 09/26 [facility] HEMATOLOGY RDW 17.2 11.5 - 09/26 MH 14.5 [facility] HEMATOLOGY MPV 8.3 7.4 - 10.4 09/26 [facility] HEMATOLOGY MCV 80.1 80.0 - 09/26 MH 98.0 /2015 [facility] HEMATOLOGY Hct 31.2 36.0 - 09/26 MH 48.0 /2015 [facility] HEMATOLOGY MCHC 31.6 32.0 - 09/26 MH 36.0 [facility] HEMATOLOGY MCH 25.3 27.0 - 09/26 MH 31.0 [facility] HEMATOLOGY Hgb 9.9 12.0 - 09/26 MH 16.0 [facility] HEMATOLOGY RBC 3.89 4.20 - 09/26 MH 5.40 /2015 [facility] HEMATOLOGY WBC 4.5 3.7 - 10.4 09/26 /2015 [facility] HEMATOLOGY Monocytes # 0.5 0.0 - 0.8 09/26 /2015 [facility] HEMATOLOGY Lymphocytes 1.4 1.0 - 5.5 09/26 MH # /2016 [facility] HEMATOLOGY Segs-Bands # 2.3 1.5 - 8.1 09/26 /2015 [facility] HEMATOLOGY Basophils 0.3 0.0 - 1.0 09/26 [facility] HEMATOLOGY Eosinophils 0.3 0.0 - 0.5 09/26 MH # /2016 [facility] HEMATOLOGY Eosinophils 6.2 0.0 - 4.0 09/26 [facility] HEMATOLOGY Monocytes 11.1 2.0 - 12.0 09/26 [facility] HEMATOLOGY Lymphocytes 30.3 20.0 - 09/26 MH 40.0 [facility] HEMATOLOGY Segs 52.1 45.0 - 09/26 MH 75.0 [facility] CHEM PANEL eGFR 124 09/25 Result Comment: The [facility] eGFR is calculated using the CKD-EPI formula. In most young, healthy individuals the eGFR will be >90 mL/min/1.73m2 . The eGFR declines with age. An eGFR of 60-89 may be normal in some populations, particularly the elderly, for whom the CKD-EPI formula has not been extensively validated. Use of the eGFR is not recommended in the following populations:< br/>
Shannan viduals with unstable creatinine concentration s, including patients and those with serious co-morbid conditions.<b r/>
Patie nts with extremes in muscle mass or diet.

The data above are obtained from the National Kidney Disease Education Program (NKDEP) which additionally recommends that when the eGFR is used in patients with extremes of body mass index for purposes of drug dosing, the eGFR should be multiplied by the estimated BMI. CHEM PANEL Chloride Lvl 110 95 - 109 09/25 [facility] CHEM PANEL CO2 21 24 - 32 09/25 [facility] CHEM PANEL Creatinine 0.47 0.50 - 09/25 MH Lvl 1.40 [facility] CHEM PANEL Sodium Lvl 141 135 - 145 09/25 [facility] CHEM PANEL Potassium 3.7 3.5 - 5.1 09/25 MH Lvl /2015 [facility] CHEM PANEL AST 179 0 - 37 09/25 [facility] CHEM PANEL ALT 312 0 - 65 09/25 [facility] CHEM PANEL Calcium Lvl 7.4 8.5 - 10.5 09/25 [facility] CHEM PANEL Total 5.9 6.4 - 8.4 09/25 MH Protein /2015 [facility] CHEM PANEL Albumin Lvl 2.6 3.5 - 5.0 09/25 [facility] CHEM PANEL Glucose Lvl 91 70 - 99 09/25 [facility] CHEM PANEL BUN 8 7 - 22 09/25 [facility] CHEM PANEL Alk Phos 502 39 - 136 09/25 [facility] CHEM PANEL Bili Total 0.2 0.2 - 1.3 09/25 [facility] CHEM PANEL AGAP 13.7 10.0 - 09/25 MH 20.0 [facility] CHEM PANEL B/C Ratio 17 6 - 25 09/25 [facility] CHEM PANEL A/G Ratio 0.8 0.7 - 1.6 09/25 [facility] CHEM PANEL Globulin 3.3 2.7 - 4.2 09/25 [facility] CHEM PANEL Lipase Lvl 170 73 - 393 09/25 [facility] CHEM PANEL Magnesium 1.9 1.8 - 2.4 09/25 Lvl /2015 [facility] ENDOCRINOL S Preg Negative Negative 09/25 OGY *NA* /2015 [facility] (09/25/16 5:17 AM) HEMATOLOGY Segs 62.0 45.0 - 09/25 MH 75.0 /2015 [facility] HEMATOLOGY Eosinophils 3.7 0.0 - 4.0 09/25 /2015 [facility] HEMATOLOGY Monocytes 10.0 2.0 - 12.0 09/25 /2015 [facility] HEMATOLOGY Lymphocytes 23.7 20.0 - 09/25 MH 40.0 /2016 [facility] HEMATOLOGY Segs-Bands # 1.7 1.5 - 8.1 09/25 /2015 [facility] HEMATOLOGY Basophils 0.6 0.0 - 1.0 09/25 /2015 [facility] HEMATOLOGY Lymphocytes 0.7 1.0 - 5.5 09/25 MH # /2016 [facility] HEMATOLOGY Eosinophils 0.1 0.0 - 0.5 09/25 MH # /2016 [facility] HEMATOLOGY Microcyte 1+ None Seen 09/25 MH *ABN* /2015 [facility] (09/25/16 5:17 AM) HEMATOLOGY Monocytes # 0.3 0.0 - 0.8 09/25 /2015 [facility] HEMATOLOGY MPV 8.0 7.4 - 10.4 09/25 [facility] HEMATOLOGY Platelet 154 133 - 450 09/25 /2015 [facility] HEMATOLOGY RDW 16.9 11.5 - 09/25 MH 14.5 [facility] HEMATOLOGY MCH 25.5 27.0 - 09/25 MH 31.0 /2015 [facility] HEMATOLOGY MCHC 32.4 32.0 - 09/25 MH 36.0 /2015 [facility] HEMATOLOGY MCV 78.7 80.0 - 09/25 98.0 /2015 [facility] HEMATOLOGY WBC 2.8 3.7 - 10.4 09/25 [facility] HEMATOLOGY Hct 29.6 36.0 - 09/25 MH 48.0 /2015 [facility] HEMATOLOGY RBC 3.76 4.20 - 09/25 5.40 /2015 [facility] HEMATOLOGY Hgb 9.6 12.0 - 09/25 16.0 [facility] LIPIDS CHD Risk 3.32 3.90 - 09/25 5.80 /2015 [facility] LIPIDS VLDL 16 09/25 /2015 [facility] LIPIDS LDL 77 <=99 mg/dL 09/25 (Calculated) /2015 [facility] LIPIDS Chol 133 <=199 09/25 mg/dL [facility] LIPIDS Trig 80 <=149 09/25 mg/dL /2015 [facility] LIPIDS HDL 40 >=61 mg/dL 09/25 [facility] BLOOD BANK Antibody Negative 09/24 RESULTS Scrn (09/24/16 6:03 AM) /2015 [facility] BLOOD BANK ABO/Rh O NEG 09/24 RESULTS /2015 [facility] CHEM PANEL Total 6.4 6.4 - 8.4 09/24 Protein /2015 [facility] CHEM PANEL Albumin Lvl 2.5 3.5 - 5.0 09/24 [facility] CHEM PANEL Calcium Lvl 7.4 8.5 - 10.5 09/24 [facility] CHEM PANEL AST 357 0 - 37 09/24 [facility] CHEM PANEL Bili Total 0.3 0.2 - 1.3 09/24 [facility] CHEM PANEL ALT 408 0 - 65 09/24 [facility] CHEM PANEL Alk Phos 507 39 - 136 09/24 [facility] CHEM PANEL Chloride Lvl 109 95 - 109 09/24 [facility] CHEM PANEL Potassium 3.4 3.5 - 5.1 09/24 Lvl /2016 [facility] CHEM PANEL CO2 22 24 - 32 09/24 [facility] CHEM PANEL eGFR 121 09/24 [facility] Comment: The [facility] eGFR is calculated using the CKD-EPI formula. In most young, healthy individuals the eGFR will be >90 mL/min/1.73m2 . The eGFR declines with age. An eGFR of 60-89 may be normal in some populations, particularly the elderly, for whom the CKD-EPI formula has not been extensively validated. Use of the eGFR is not recommended in the following populations:< br/>
Shannan viduals with unstable creatinine concentration s, including patients and those with serious co-morbid conditions.<b r/>
Patie nts with extremes in muscle mass or diet.

The data above are obtained from the National Kidney Disease Education Program (NKDEP) which additionally recommends that when the eGFR is used in patients with extremes of body mass index for purposes of drug dosing, the eGFR should be multiplied by the estimated BMI. CHEM PANEL BUN 7 7 - 22 09/24 [facility] CHEM PANEL Creatinine 0.51 0.50 - 09/24 Lvl 1.40 [facility] CHEM PANEL Sodium Lvl 140 135 - 145 09/24 [facility] CHEM PANEL Glucose Lvl 91 70 - 99 09/24 [facility] CHEM PANEL A/G Ratio 0.6 0.7 - 1.6 09/24 [facility] CHEM PANEL AGAP 12.4 10.0 - 09/24 20.0 /2015 [facility] CHEM PANEL Globulin 3.9 2.7 - 4.2 09/24 [facility] CHEM PANEL B/C Ratio 14 6 - 25 09/24 [facility] CHEM PANEL Magnesium 1.7 1.8 - 2.4 09/24 Lvl [facility] HEMATOLOGY Basophils 0.4 0.0 - 1.0 09/24 [facility] HEMATOLOGY Segs-Bands # 3.4 1.5 - 8.1 09/24 [facility] HEMATOLOGY Lymphocytes 0.5 1.0 - 5.5 09/24 # [facility] HEMATOLOGY Monocytes # 0.3 0.0 - 0.8 09/24 [facility] HEMATOLOGY Eosinophils 0.1 0.0 - 0.5 09/24 # [facility] HEMATOLOGY Microcyte 1+ None Seen 09/24 *ABN* /2015 [facility] (09/24/16 6:03 AM) HEMATOLOGY Plt Morph Normal 09/24 (09/24/16 6:03 AM) /2015 [facility] HEMATOLOGY Segs 79.2 45.0 - 09/24 MH 75.0 /2015 [facility] HEMATOLOGY RBC Morph Normal 09/24 (09/24/16 6:03 AM) /2015 [facility] HEMATOLOGY Monocytes 6.4 2.0 - 12.0 09/24 /2015 [facility] HEMATOLOGY Eosinophils 3.1 0.0 - 4.0 09/24 /2015 [facility] HEMATOLOGY Lymphocytes 10.9 20.0 - 09/24 MH 40.0 /2015 [facility] HEMATOLOGY WBC 4.3 3.7 - 10.4 09/24 /2015 [facility] HEMATOLOGY RBC 3.87 4.20 - 09/24 MH 5.40 /2015 [facility] HEMATOLOGY MCV 78.6 80.0 - 09/24 98.0 /2015 [facility] HEMATOLOGY Hgb 9.7 12.0 - 09/24 16.0 /2015 [facility] HEMATOLOGY Hct 30.4 36.0 - 09/24 48.0 /2015 [facility] HEMATOLOGY MCHC 32.0 32.0 - 09/24 36.0 /2015 [facility] HEMATOLOGY RDW 16.8 11.5 - 09/24 14.5 /2015 [facility] HEMATOLOGY MCH 25.2 27.0 - 09/24 31.0 /2015 [facility] HEMATOLOGY Platelet 173 133 - 450 09/24 /2015 [facility] HEMATOLOGY MPV 8.0 7.4 - 10.4 09/24 /2015 [facility] HEMATOLOGY PT 15.9 12.0 - 09/24 14.7 /2015 [facility] HEMATOLOGY INR 1.24 0.85 - 09/24 1. [facility] HEMATOLOGY PTT 26.7 22.9 - 09/24 35.8 /2015 [facility] BLOOD BANK FFP product Product available 09/24 RESULTS (09/24/16 4:53 AM) /2015 [facility] BLOOD BANK RBC product Product available 1 09/24 Result RESULTS (09/24/16 4:53 AM) /2015 Comment: [facility] 09/24/2016 09:59 [id number]
called to cira 09/24/2016 09:59 tb URINE AND UA Ketones Negative Negative 09/24 STOOL mg/dL mg/dL /2015 [facility] URINE AND UA Bili Negative Negative 09/24 STOOL *NA* /2015 [facility] (09/23/16 6:29 PM) URINE AND UA Blood Negative Negative 09/24 STOOL (09/23/16 6:29 PM) [facility] URINE AND UA 4.0 0.1 - 1.0 09/24 STOOL Urobilinogen /2015 [facility] URINE AND UA Leuk Est Small Negative 09/24 STOOL *ABN* /2015 [facility] (09/23/16 6:29 PM) URINE AND UA Nitrite Negative Negative 09/24 STOOL (09/23/16 6:29 PM) [facility] URINE AND UA Sq Epi Occasional Few /LPF 09/24 STOOL /LPF /2015 [facility] URINE AND UA WBC 1 0 - 5 09/24 STOOL [facility] URINE AND UA Mucus Few /LPF None Seen 09/24 STOOL /LPF [facility] URINE AND UA Glucose Negative Negative 09/24 STOOL mg/dL mg/dL [facility] URINE AND UA Color Yellow Yellow 09/24 STOOL *NA* /2015 [facility] (09/23/16 6:29 PM) URINE AND UA Turbidity Clear Clear 09/24 STOOL (09/23/16 6:29 PM) [facility] URINE AND UA Protein Negative Negative 09/24 STOOL mg/dL mg/dL [facility] URINE AND UA pH 6.0 5.0 - 8.0 09/24 STOOL [facility] URINE AND UA Spec Grav 1.025 <=1.030 09/24 STOOL [facility] CHEM PANEL Phosphorus 2.6 2.5 - 4.5 09/23 [facility] IMMUNOLOGY C-REACTIVE 11.9 <=2.9 mg/L 09/23 PROTEIN [facility] IMMUNOLOGY Prealbumin 13.7 18.0 - 09/23 MH 45.0 /2016 [facility] LIPIDS Trig 93 <=149 09/23 mg/dL [facility] CHEM PANEL Magnesium 1.8 1.8 - 2.4 09/23 Lvl [facility] ELECTROLYT Chloride Lvl 110 95 - 109 09/10 ES /2015 [facility] ELECTROLYT Potassium 4.0 3.5 - 5.1 09/10 ES Lvl [facility] ELECTROLYT AGAP 16.0 10.0 - 09/10 ES 20.0 [facility] ELECTROLYT Creatinine 0.51 0.50 - 11 ES Lvl 1.40 /2015 [facility] ELECTROLYT BUN 6 7 - 22 09/10 [facility] ELECTROLYT Glucose Lvl 105 70 - 99 09/10 [facility] ELECTROLYT Sodium Lvl 142 135 - 145 09/10 [facility] ELECTROLYT Calcium Lvl 7.7 8.5 - 10.5 09/10 ES /2015 [facility] ELECTROLYT CO2 20 24 - 32 09/10 [facility] ELECTROLYT eGFR 121 09/[address] [facility] Comment: The [facility] eGFR is calculated using the CKD-EPI formula. In most young, healthy individuals the eGFR will be >90 mL/min/1.73m2 . The eGFR declines with age. An eGFR of 60-89 may be normal in some populations, particularly the elderly, for whom the CKD-EPI formula has not been extensively validated. Use of the eGFR is not recommended in the following populations:< br/>
Shannan viduals with unstable creatinine concentration s, including patients and those with serious co-morbid conditions.<b r/>
Patie nts with extremes in muscle mass or diet.

The data above are obtained from the National Kidney Disease Education Program (NKDEP) which additionally recommends that when the eGFR is used in patients with extremes of body mass index for purposes of drug dosing, the eGFR should be multiplied by the estimated BMI. HEMATOLOGY Eosinophils 0.2 0.0 - 0.5 09/10 MH # /2016 [facility] HEMATOLOGY Monocytes # 0.5 0.0 - 0.8 09/10 [facility] HEMATOLOGY Eosinophils 2.9 0.0 - 4.0 09/10 [facility] HEMATOLOGY Segs-Bands # 3.9 1.5 - 8.1 09/10 [facility] HEMATOLOGY Basophils 0.4 0.0 - 1.0 09/10 [facility] HEMATOLOGY Lymphocytes 1.7 1.0 - 5.5 09/10 # /2016 [facility] HEMATOLOGY Lymphocytes 27.3 20.0 - 09/10 MH 40.0 [facility] HEMATOLOGY Monocytes 7.6 2.0 - 12.0 09/10 /2015 [facility] HEMATOLOGY Segs 61.8 45.0 - 09/10 75.0 /2015 [facility] HEMATOLOGY MCV 79.3 80.0 - 09/10 98.0 [facility] HEMATOLOGY Hct 32.8 36.0 - 09/10 48.0 /2016 [facility] HEMATOLOGY MCH 25.5 27.0 - 09/10 MH 31.0 /2016 [facility] HEMATOLOGY WBC 6.3 3.7 - 10.4 09/10 MH /2015 [facility] HEMATOLOGY RBC 4.14 4.20 - 09/10 5.40 /2015 [facility] HEMATOLOGY Hgb 10.6 12.0 - 09/10 16.0 /2015 [facility] HEMATOLOGY Platelet 199 133 - 450 09/10 MH /2015 [facility] HEMATOLOGY RDW 16.5 11.5 - 09/10 14.5 /2016 [facility] HEMATOLOGY MCHC 32.2 32.0 - 09/10 MH 36.0 /2016 [facility] HEMATOLOGY MPV 8.0 7.4 - 10.4 09/10 [facility] URINE AND UA <=1.0 0.1 - 1.0 09/10 STOOL Urobilinogen mg/dL /2015 [facility] URINE AND UA Color Ltyellow 09/10 STOOL [facility] URINE AND UA RBC 1 0 - 2 09/10 STOOL /2015 [facility] URINE AND UA WBC 1 0 - 5 09/10 STOOL [facility] URINE AND UA Leuk Est Negative Negative 09/10 STOOL (09/09/16 7:50 PM) /2015 [facility] URINE AND UA Nitrite Negative Negative 09/10 STOOL (09/09/16 7:50 PM) /2015 [facility] URINE AND UA Sq Epi Occasional Few /LPF 09/10 STOOL /LPF /2015 [facility] URINE AND UA Ketones Negative Negative 09/10 STOOL mg/dL mg/dL /2015 [facility] URINE AND UA Blood Negative Negative 09/10 STOOL (09/09/16 7:50 PM) /2015 [facility] URINE AND UA Bili Negative Negative 09/10 STOOL *NA* /2015 [facility] (09/09/16 7:50 PM) URINE AND UA pH 7.0 5.0 - 8.0 09/10 STOOL [facility] URINE AND UA Glucose Negative Negative 09/10 STOOL mg/dL mg/dL [facility] URINE AND UA Protein Negative Negative 09/10 STOOL mg/dL mg/dL [facility] URINE AND UA Spec Grav 1.014 <=1.030 09/10 STOOL [facility] URINE AND UA Turbidity Clear Clear 09/10 STOOL (09/09/16 7:50 PM) /2015 [facility] CHEM PANEL Phosphorus 2.4 2.5 - 4.5 09/09 [facility] CHEM PANEL Magnesium 2.0 1.8 - 2.4 09/09 [facility] ELECTROLYT AGAP 13.5 10.0 - 09/09 ES 20.0 /2015 [facility] ELECTROLYT Globulin 3.8 2.7 - 4.2 09/09 ES [facility] ELECTROLYT B/C Ratio 15 6 - 25 09/09 ES [facility] ELECTROLYT A/G Ratio 0.8 0.7 - 1.6 09/09 ES [facility] ELECTROLYT eGFR 102 09/[address] [facility] Comment: The [facility] eGFR is calculated using the CKD-EPI formula. In most young, healthy individuals the eGFR will be >90 mL/min/1.73m2 . The eGFR declines with age. An eGFR of 60-89 may be normal in some populations, particularly the elderly, for whom the CKD-EPI formula has not been extensively validated. Use of the eGFR is not recommended in the following populations:< br/>
Shannan viduals with unstable creatinine concentration s, including patients and those with serious co-morbid conditions.<b r/>
Patie nts with extremes in muscle mass or diet.

The data above are obtained from the National Kidney Disease Education Program (NKDEP) which additionally recommends that when the eGFR is used in patients with extremes of body mass index for purposes of drug dosing, the eGFR should be multiplied by the estimated BMI. ELECTROLYT Calcium Lvl 8.0 8.5 - 10.5 09/09 [facility] ELECTROLYT CO2 19 24 - 32 09/09 ES [facility] Chloride Lvl 109 95 - 109 09/09 [facility] Total 6.8 6.4 - 8.4 09/09 [facility] Albumin Lvl 3.0 3.5 - 5.0 09/09 [facility] ALT 24 0 - 65 09/09 [facility] AST 17 0 - 37 09/09 [facility] Potassium 3.5 3.5 - 5.1 09/09 [facility]LECT[facility] Sodium Lvl 138 135 - 145 09/09 [facility] ELECT[facility]OLYT Bili Total 0.2 0.2 - 1.3 11 ES /2015 [facility] ELECT[facility] Alk Phos 123 39 - 136 11 ES /2015 [facility]LECT[facility] Glucose Lvl 131 70 - 99 09/09 [facility]LECT[facility] Creatinine 0.74 0.50 - 09/09 ES Lvl 1.40 /2015 [facility] ELECTROLYT BUN 11 7 - 22 09/09 ES /2015 [facility] HEMATOLOGY Segs-Bands # 4.6 1.5 - 8.1 09/09 [facility] HEMATOLOGY Monocytes # 0.5 0.0 - 0.8 09/09 [facility] HEMATOLOGY Lymphocytes 1.3 1.0 - 5.5 09/09 MH # /2015 [facility] HEMATOLOGY Segs 69.0 45.0 - 09/09 75.0 /2015 [facility] HEMATOLOGY Eosinophils 0.2 0.0 - 0.5 09/09 # /2015 [facility] HEMATOLOGY Monocytes 8.0 2.0 - 12.0 09/09 [facility] HEMAT[facility] Lymphocytes 19.9 20.0 - 09/09 40.0 [facility] HEMAT[facility] Basophils 0.6 0.0 - 1.0 09/09 [facility] HEMATOLOGY Eosinophils 2.5 0.0 - 4.0 09/09 [facility] HEMATOLOGY MPV 8.5 7.4 - 10.4 09/09 [facility] HEMATOLOGY Platelet 192 133 - 450 09/09 /2015 [facility] HEMATOLOGY MCHC 31.0 32.0 - 09/09 36.0 /2015 [facility] HEMATOLOGY MCH 24.8 27.0 - 09/09 31.0 /2015 [facility] HEMATOLOGY MCV 80.0 80.0 - 09/09 98.0 /2015 [facility] HEMATOLOGY Hct 33.3 36.0 - 09/09 48.0 /2015 [facility] HEMATOLOGY RDW 16.8 11.5 - 11 14.5 /2015 [facility] HEMATOLOGY WBC 6.7 3.7 - 10.4 11 /2015 [facility] HEMATOLOGY RBC 4.16 4.20 - 11 5.40 /2015 [facility] HEMATOLOGY Hgb 10.3 12.0 - 09/09 16.0 /2015 [facility] HEMATOLOGY PTT 26.6 22.9 - 09/09 35.8 /2015 [facility] HEMATOLOGY PT 14.2 12.0 - 09/09 14.7 /2015 [facility] HEMATOLOGY INR 1.08 0.85 - 09/09 MH 1.17 /2015 [facility] IMMUNOLOGY Prealbumin 14.6 18.0 - 09/09 MH 45.0 /2015 [facility] TOXICOLOGY Methotrxate 0.02 09/09 Lvl /2015 [facility] BLOOD BANK Antibody Negative 08/31 RESULTS Scrn (08/31/16 7:05 AM) /2015 [facility] BLOOD BANK ABO/Rh O NEG 08/31 MH RESULTS /2015 [facility] CHEM PANEL eGFR 109 08/31 Result MH Comment: The [facility] eGFR is calculated using the CKD-EPI formula. In most young, healthy individuals the eGFR will be >90 mL/min/1.73m2 . The eGFR declines with age. An eGFR of 60-89 may be normal in some populations, particularly the elderly, for whom the CKD-EPI formula has not been extensively validated. Use of the eGFR is not recommended in the following populations:< br/>
Shannan viduals with unstable creatinine concentration s, including patients and those with serious co-morbid conditions.<b r/>
Patie nts with extremes in muscle mass or diet.

The data above are obtained from the National Kidney Disease Education Program (NKDEP) which additionally recommends that when the eGFR is used in patients with extremes of body mass index for purposes of drug dosing, the eGFR should be multiplied by the estimated BMI. CHEM PANEL Glucose Lvl 87 70 - 99 08/31 [facility] CHEM PANEL Sodium Lvl 141 135 - 145 08/31 [facility] CHEM PANEL Potassium 3.4 3.5 - 5.1 08/31 MH Lvl [facility] CHEM PANEL BUN 8 7 - 22 08/31 [facility] CHEM PANEL Creatinine 0.69 0.50 - 08/31 MH Lvl 1.40 /2015 [facility] CHEM PANEL CO2 21 24 - 32 08/31 [facility] CHEM PANEL Chloride Lvl 110 95 - 109 08/31 [facility] CHEM PANEL Calcium Lvl 8.3 8.5 - 10.5 10 [facility] CHEM PANEL Albumin Lvl 3.5 3.5 - 5.0 08/31 [facility] CHEM PANEL Total 7.3 6.4 - 8.4 08/31 MH Protein /2015 [facility] CHEM PANEL ALT 29 0 - 65 08/31 [facility] CHEM PANEL AST 30 0 - 37 10/24 MH /2015 [facility] CHEM PANEL Alk Phos 109 39 - 136 08/31 /2015 [facility] CHEM PANEL Bili Total 0.2 0.2 - 1.3 08/31 /2015 [facility] CHEM PANEL B/C Ratio 12 6 - 25 08/31 /2015 [facility] CHEM PANEL Globulin 3.8 2.7 - 4.2 08/31 [facility] CHEM PANEL A/G Ratio 0.9 0.7 - 1.6 08/31 /2015 [facility] CHEM PANEL AGAP 13.4 10.0 - 08/31 MH 20.0 /2015 [facility] ENDOCRINOL S Preg Negative Negative 08/31 OGY *NA* /2015 [facility] (08/31/16 7:05 AM) HEMATOLOGY INR 1.04 0.85 - 08/31 MH 1.17 /2015 [facility] HEMATOLOGY PTT 27.8 22.9 - 08/31 35.8 /2015 [facility] HEMATOLOGY PT 13.8 12.0 - 08/31 14.7 /2015 [facility] HEMATOLOGY WBC 6.6 3.7 - 10.4 08/31 /2015 [facility] HEMATOLOGY Hgb 11.7 12.0 - 08/31 16.0 [facility] HEMATOLOGY Hct 36.7 36.0 - 08/31 MH 48.0 /2015 [facility] HEMATOLOGY MCHC 31.9 32.0 - 08/31 36.0 /2015 [facility] HEMATOLOGY MPV 8.5 7.4 - 10.4 08/31 MH /2015 [facility] HEMATOLOGY RBC 4.66 4.20 - 08/31 MH 5.40 /2015 [facility] HEMATOLOGY MCV 78.9 80.0 - 08/31 98.0 /2015 [facility] HEMATOLOGY MCH 25.1 27.0 - 08/31 MH 31.0 [facility] HEMATOLOGY RDW 16.7 11.5 - 08/31 MH 14.5 /2015 [facility] HEMATOLOGY Platelet 238 133 - 450 08/31 /2015 [facility] HEMATOLOGY Segs 56.3 45.0 - 08/31 MH 75.0 /2015 [facility] HEMATOLOGY Lymphocytes 2.3 1.0 - 5.5 08/31 MH # /2016 [facility] HEMATOLOGY Monocytes # 0.4 0.0 - 0.8 08/31 /2015 [facility] HEMATOLOGY Eosinophils 0.1 0.0 - 0.5 08/31 MH # /2016 [facility] HEMATOLOGY Microcyte 1+ None Seen 08/31 MH *ABN* /2015 [facility] (08/31/16 7:05 AM) HEMATOLOGY Monocytes 6.2 2.0 - 12.0 08/31 [facility] HEMATOLOGY Lymphocytes 35.0 20.0 - 08/31 MH 40.0 [facility] HEMATOLOGY Segs-Bands # 3.7 1.5 - 8.1 08/31 [facility] HEMATOLOGY Eosinophils 2.1 0.0 - 4.0 08/31 [facility] HEMATOLOGY Basophils 0.4 0.0 - 1.0 08/31 [facility] BLOOD BANK RBC product Product available 1 08/31 Result RESULTS (08/31/16 6:31 AM) Comment: [facility] 08/31/2016 08:06 [id number]
called to christie 08/31/2016 08:06 tb BLOOD BANK ABO/Rh O NEG 09/17 RESULTS /2014 [facility] BLOOD BANK Antibody Negative 09/17 RESULTS Scrn (09/17/15 10:16 AM) [facility] ENDOCRINOL S Preg Negative Negative 09/17 OGY *NA* /2014 [facility] (09/17/15 10:16 AM) BLOOD BANK RBC product Product available 09/17 Result RESULTS (09/17/15 10:05 AM) Comment: [facility] 09/17/2015 12:19 [id number]
Notified Sara in Pre-op 09/17/2015 12:19 ttn CHEM PANEL eGFR 109 08/25 Result Comment: The [facility] eGFR is calculated using the CKD-EPI formula. In most young, healthy individuals the eGFR will be >90 mL/min/1.73m2 . The eGFR declines with age. An eGFR of 60-89 may be normal in some populations, particularly the elderly, for whom the CKD-EPI formula has not been extensively validated. Use of the eGFR is not recommended in the following populations:< br/>
Shannan viduals with unstable creatinine concentration s, including patients and those with serious co-morbid conditions.<b r/>
Patie nts with extremes in muscle mass or diet.

The data above are obtained from the National Kidney Disease Education Program (NKDEP) which additionally recommends that when the eGFR is used in patients with extremes of body mass index for purposes of drug dosing, the eGFR should be multiplied by the estimated BMI. CHEM PANEL Calcium Lvl 7.9 8.5 - 10.5 10 /2014 [facility] CHEM PANEL CO2 18 24 - 32 10 /2014 [facility] CHEM PANEL BUN 6 7 - 22 10 [facility] CHEM PANEL Creatinine 0.7 0.5 - 1.4 08/25 MH Lvl /2014 [facility] CHEM PANEL Glucose Lvl 78 70 - 99 08/25 [facility] CHEM PANEL Chloride Lvl 112 95 - 109 08/25 [facility] CHEM PANEL Potassium 4.0 3.5 - 5.1 08/25 MH Lvl /2014 [facility] CHEM PANEL Sodium Lvl 140 135 - 145 08/25 MH [facility] CHEM PANEL AGAP 14.0 10.0 - 08/25 MH 20.0 /2014 [facility] HEMATOLOGY Monocytes 9.7 2.0 - 12.0 08/25 /2014 [facility] HEMATOLOGY Eosinophils 5.5 0.0 - 4.0 08/25 /2014 [facility] HEMATOLOGY Basophils 0.3 0.0 - 1.0 08/25 /2014 [facility] HEMATOLOGY Segs-Bands # 3.8 1.5 - 8.1 08/25 MH /2014 [facility] HEMATOLOGY Lymphocytes 1.4 1.0 - 5.5 08/25 MH # /2014 [facility] HEMATOLOGY Segs 62.0 45.0 - 08/25 MH 75.0 /2014 [facility] HEMATOLOGY Lymphocytes 22.5 20.0 - 08/25 MH 40.0 /2014 [facility] HEMATOLOGY Monocytes # 0.6 0.0 - 0.8 08/25 MH /2014 [facility] HEMATOLOGY Eosinophils 0.3 0.0 - 0.5 08/25 MH # /2014 [facility] HEMATOLOGY WBC 6.1 3.7 - 10.4 08/25 MH /2014 [facility] HEMATOLOGY RBC 4.41 4.20 - 18 MH 5.40 /2014 [facility] HEMATOLOGY Hgb 13.4 12.0 - 08/25 MH 16.0 /2014 [facility] HEMATOLOGY Hct 41.1 36.0 - 08/25 MH 48.0 /2014 [facility] HEMATOLOGY MCH 30.4 27.0 - 08/25 MH 31.0 /2014 [facility] HEMATOLOGY MCHC 32.7 32.0 - 08/25 MH 36.0 /2014 [facility] HEMATOLOGY RDW 12.8 11.5 - 08/25 MH 14.5 /2014 [facility] HEMATOLOGY Platelet 180 133 - 450 08/25 MH /2014 [facility] HEMATOLOGY MPV 8.7 7.4 - 10.4 08/25 [facility] HEMATOLOGY MCV 93.2 80.0 - 08/25 MH 98.0 /2015 [facility] CHEM PANEL Globulin 3.8 2.0 - 4.0 08/24 [facility] CHEM PANEL A/G Ratio 0.9 0.7 - 1.6 08/24 [facility] CHEM PANEL AGAP 12.4 10.0 - 08/24 MH 20.0 /2014 [facility] CHEM PANEL B/C Ratio 16 6 - 25 08/24 [facility] CHEM PANEL eGFR 81 08/24 Comment: The [facility] eGFR is calculated using the CKD-EPI formula. In most young, healthy individuals the eGFR will be >90 mL/min/1.73m2 . The eGFR declines with age. An eGFR of 60-89 may be normal in some populations, particularly the elderly, for whom the CKD-EPI formula has not been extensively validated. Use of the eGFR is not recommended in the following populations:< br/>
Shannan viduals with unstable creatinine concentration s, including patients and those with serious co-morbid conditions.<b r/>
Patie nts with extremes in muscle mass or diet.

The data above are obtained from the National Kidney Disease Education Program (NKDEP) which additionally recommends that when the eGFR is used in patients with extremes of body mass index for purposes of drug dosing, the eGFR should be multiplied by the estimated BMI. CHEM PANEL AST 22 0 - 37 08/24 [facility] CHEM PANEL Alk Phos 167 39 - 136 08/24 [facility] CHEM PANEL Bili Total 0.3 0.2 - 1.3 08/24 [facility] CHEM PANEL ALT 40 0 - 65 08/24 [facility] CHEM PANEL CO2 23 24 - 32 08/24 [facility] CHEM PANEL Creatinine 0.9 0.5 - 1.4 08/24 Lvl [facility] CHEM PANEL Albumin Lvl 3.5 3.5 - 5.0 08/24 [facility] CHEM PANEL Total 7.3 6.4 - 8.4 08/24 Protein [facility] CHEM PANEL BUN 14 7 - 22 08/24 [facility] CHEM PANEL Glucose Lvl 77 70 - 99 08/24 [facility] CHEM PANEL Calcium Lvl 8.3 8.5 - 10.5 08/24 [facility] CHEM PANEL Chloride Lvl 108 95 - 109 08/24 /2014 [facility] CHEM PANEL Potassium 3.4 3.5 - 5.1 08/24 Lvl /2014 [facility] CHEM PANEL Sodium Lvl 140 135 - 145 08/24 /2014 [facility] HEMATOLOGY Platelet 211 133 - 450 08/24 /2014 [facility] HEMATOLOGY RDW 12.8 11.5 - 08/24 MH 14.5 /2014 [facility] HEMATOLOGY MCHC 33.3 32.0 - 08/24 MH 36.0 /2014 [facility] HEMATOLOGY MCH 30.3 27.0 - 08/24 MH 31.0 /2014 [facility] HEMATOLOGY MPV 8.3 7.4 - 10.4 08/24 /2014 [facility] HEMATOLOGY Hct 42.7 36.0 - 08/24 48.0 /2014 [facility] HEMATOLOGY Hgb 14.2 12.0 - 08/24 16.0 /2014 [facility] HEMATOLOGY RBC 4.68 4.20 - 08/24 MH 5.40 /2014 [facility] HEMATOLOGY WBC 7.5 3.7 - 10.4 08/24 /2014 [facility] HEMATOLOGY MCV 91.1 80.0 - 08/24 98.0 /2014 [facility] HEMATOLOGY Monocytes 10.2 2.0 - 12.0 08/24 /2014 [facility] HEMATOLOGY Eosinophils 5.2 0.0 - 4.0 08/24 /2014 [facility] HEMATOLOGY Lymphocytes 2.2 1.0 - 5.5 08/24 MH # /2014 [facility] HEMATOLOGY Basophils 0.3 0.0 - 1.0 08/24 /2014 [facility] HEMATOLOGY Segs-Bands # 4.1 1.5 - 8.1 08/24 /2014 [facility] HEMATOLOGY Lymphocytes 29.2 20.0 - 08/24 MH 40.0 /2014 [facility] HEMATOLOGY Segs 55.1 45.0 - 08/24 MH 75.0 /2014 [facility] HEMATOLOGY Eosinophils 0.4 0.0 - 0.5 08/24 # /2014 [facility] HEMATOLOGY Monocytes # 0.8 0.0 - 0.8 08/24 [facility] URINE AND UA Protein Negative Negative 08/24 STOOL mg/dL mg/dL /2014 [facility] URINE AND UA pH 5.0 5.0 - 8.0 08/24 STOOL /2014 [facility] URINE AND UA Spec Grav 1.026 <=1.030 08/24 STOOL /2014 [facility] URINE AND UA Ketones Negative Negative 08/24 STOOL mg/dL mg/dL [facility] URINE AND UA Bili Negative Negative 08/24 STOOL *NA* /2014 [facility] (08/24/15 1:32 AM) URINE AND UA Glucose Negative Negative 08/24 STOOL mg/dL mg/dL [facility] URINE AND UA Turbidity Clear Clear 08/24 STOOL (08/24/15 1:32 AM) [facility] URINE AND UA Color Yellow Yellow 08/24 STOOL *NA* /2014 [facility] (08/24/15 1:32 AM) URINE AND UA RBC 3 0 - 2 08/24 STOOL /2014 [facility] URINE AND UA WBC 2 0 - 5 08/24 STOOL [facility] URINE [facility] UA Mucus Moderate None Seen 08/24 STOOL /LPF /LPF /2014 [facility] URINE AND UA Blood Negative Negative 08/24 STOOL (08/24/15 1:32 AM) [facility] URINE AND UA 2.0 0.1 - 1.0 08/24 STOOL Urobilinogen /2014 [facility] URINE AND UA Sq Epi Few /LPF Few /LPF 08/24 STOOL /2014 [facility] URINE AND UA Leuk Est Negative Negative 08/24 STOOL (08/24/15 1:32 AM) [facility] URINE AND UA Nitrite Negative Negative 08/24 STOOL (08/24/15 1:32 AM) [facility] URINE CHEM U Preg Negative Negative 08/24 (08/24/15 1:32 AM) [facility] BLOOD BANK Antibody Negative 08/09 RESULTS Scrn (08/09/15 10:25 AM) /2014 [facility] BLOOD BANK ABO/Rh O NEG 08/09 RESULTS /2014 [facility] CHEM PANEL A/G Ratio 0.9 0.7 - 1.6 08/09 [facility] CHEM PANEL B/C Ratio 14 6 - 25 08/09 [facility] CHEM PANEL Globulin 3.9 2.0 - 4.0 08/09 [facility] CHEM PANEL AGAP 8.6 10.0 - 08/09 MH 20.0 /2014 [facility] CHEM PANEL Alk Phos 184 39 - 136 08/09 [facility] CHEM PANEL Bili Total 0.4 0.2 - 1.3 08/09 [facility] CHEM PANEL AST 25 0 - 37 08/09 [facility] CHEM PANEL ALT 43 0 - 65 08/09 [facility] CHEM PANEL Albumin Lvl 3.6 3.5 - 5.0 08/09 [facility] CHEM PANEL Glucose Lvl 87 70 - 99 08/09 [facility] CHEM PANEL CO2 24 24 - 32 08/09 [facility] CHEM PANEL Total 7.5 6.4 - 8.4 08/09 [facility] CHEM PANEL BUN 10 7 - 22 08/09 [facility] CHEM PANEL eGFR 109 08/09 [facility] Comment: The [facility] eGFR is calculated using the CKD-EPI formula. In most young, healthy individuals the eGFR will be >90 mL/min/1.73m2 . The eGFR declines with age. An eGFR of 60-89 may be normal in some populations, particularly the elderly, for whom the CKD-EPI formula has not been extensively validated. Use of the eGFR is not recommended in the following populations:< br/>
Shannan viduals with unstable creatinine concentration s, including patients and those with serious co-morbid conditions.<b r/>
Patie nts with extremes in muscle mass or diet.

The data above are obtained from the National Kidney Disease Education Program (NKDEP) which additionally recommends that when the eGFR is used in patients with extremes of body mass index for purposes of drug dosing, the eGFR should be multiplied by the estimated BMI. CHEM PANEL Creatinine 0.7 0.5 - 1.4 08/09 [facility] CHEM PANEL Chloride Lvl 109 95 - 109 08/09 [facility] CHEM PANEL Calcium Lvl 8.6 8.5 - 10.5 08/09 [facility] CHEM PANEL Potassium 3.6 3.5 - 5.1 08/09 [facility] CHEM PANEL Sodium Lvl 138 135 - 145 08/09 [facility] ENDOCRINOL S Preg Negative Negative 08/09 OGY *NA* /2014 [facility] (08/09/15 10:25 AM) HEMATOLOGY Hct 44.4 36.0 - 08/09 MH 48.0 [facility] HEMATOLOGY Hgb 14.5 12.0 - 08/09 MH 16. [facility] HEMATOLOGY MCV 92.3 80.0 - 08/09 98.0 [facility] HEMATOLOGY MCH 30.2 27.0 - 08/09 31.0 /2014 [facility] HEMATOLOGY MCHC 32.7 32.0 - 08/09 MH 36.0 /2014 [facility] HEMATOLOGY RDW 13.2 11.5 - 08/09 14.5 /2014 [facility] HEMATOLOGY MPV 9.1 7.4 - 10.4 10 /2014 [facility] HEMATOLOGY WBC 5.5 3.7 - 10.4 10 /2014 [facility] HEMATOLOGY RBC 4.81 4.20 - 08/09 5.40 /2014 [facility] HEMATOLOGY Platelet 222 133 - 450 10 /2014 [facility] HEMATOLOGY PT 13.9 12.0 - 08/09 14.7 /2014 [facility] HEMATOLOGY PTT 33.2 22.9 - 08/09 35.8 /2014 [facility] HEMATOLOGY INR 1.04 0.85 - 08/09 1.17 /2014 [facility] HEMATOLOGY Segs 58.4 45.0 - 08/09 75.0 /2014 [facility] HEMATOLOGY Lymphocytes 30.6 20.0 - 08/09 40.0 /2014 [facility] HEMATOLOGY Lymphocytes 1.7 1.0 - 5.5 08/09 # /2014 [facility] HEMATOLOGY Segs-Bands # 3.2 1.5 - 8.1 08/09 /2014 [facility] HEMATOLOGY Basophils 0.8 0.0 - 1.0 08/09 /2014 [facility] HEMATOLOGY Monocytes # 0.4 0.0 - 0.8 08/09 /2014 [facility] HEMATOLOGY Eosinophils 0.2 0.0 - 0.5 08/09 # /2014 [facility] HEMATOLOGY Eosinophils 3.8 0.0 - 4.0 08/09 /2014 [facility] HEMATOLOGY Monocytes 6.4 2.0 - 12.0 08/09 /2014 [facility] BLOOD BANK RBC product Product available 1 08/09 Result RESULTS (08/09/15 9:52 AM) /2014 Comment: [facility] 08/09/2015 11:26 [id number]
CALLED LEIA VIGIL08/09/20 15 11:26 [facility] Chemistry SODIUM 140 MEQ/L 135 - 145 05/09 /2014 [facility] POTASSIUM 3.7 MEQ/L 3.5 - 5.1 05/09 /2014 [facility] CREATININE 0.8 0.5 - 1.4 05/09 /2014 [facility] BUN 7 7 - 22 05/09 Group Chemistry BUN/CREAT 9 6 - 25 05/09 [facility] Chemistry ALBUMIN 3.7 3.5 - 5.0 05/09 Group Chemistry CALCIUM 8.7 8.5 - 10.5 05/09 Group Chemistry SGPT (ALT) 63 0 - 65 05/09 Group Chemistry SGOT (AST) 32 0 - 37 05/09 Group Chemistry ALK PHOS 180 39 - 136 05/09 Group Hematology HGB 13.9 12.0 - 05/09 Medical 16.0 Group Hematology HCT 42.6 36.0 - 07 Medical 48.0 Group Hematology PLATELETS 227 K/CMM 133 - 450 05/09 [facility] PO4 3.1 2.5 - 4.5 02/15 Group Chemistry CPK 86 12 - 191 02/15 Group Chemistry MAGNESIUM 2.0 1.8 - 2.4 02/15 Group Chemistry SODIUM 135 MEQ/L 135 - 145 02/15 Group Chemistry POTASSIUM 3.8 MEQ/L 3.5 - 5.1 02/15 Group Chemistry CREATININE 0.8 0.5 - 1.4 02/15 Group Chemistry BUN 10 7 - 22 02/15 Group Chemistry BUN/CREAT 12 6 - 25 02/15 Group Chemistry ALBUMIN 4.0 3.5 - 5.0 02/15 Group Chemistry CALCIUM 9.1 8.5 - 10.5 02/15 Group Chemistry SGPT (ALT) 95 0 - 65 02/15 Group Chemistry SGOT (AST) 66 0 - 37 02/15 Group Chemistry ALK PHOS 230 39 - 136 02/15 Group Chemistry PO4 3.1 2.5 - 4.5 02/15 Group Chemistry CPK 86 12 - 191 02/15 Group Chemistry MAGNESIUM 2.0 1.8 - 2.4 02/15 Group Hematology HGB 15.5 12.0 - 02/15 16. Group Hematology HCT 46.2 36.0 - 04 48.0 Group Hematology PLATELETS 220 K/CMM 133 - 450 02/15 Group Hematology ESR 6 0 - 20 02/15 Group Chemistry TESTO, FREE 0.2 0.0 - 2.2 12/23 Group Chemistry TESTO, FREE 0.2 0.0 - 2.2 12/23 Group Chemistry TESTO, FREE 0.2 0.0 - 2.2 12/23 Group Chemistry TESTO, FREE 0.2 0.0 - 2.2 12/23 Group Chemistry TESTO, FREE 0.2 0.0 - 2.2 12/23 Group Chemistry TESTO, FREE 0.2 0.0 - 2.2 12/23 Group Chemistry GGT 35 0 - 60 12/21 Group Chemistry GGT 35 0 - 60 12/21 Group Chemistry GGT 35 0 - 60 12/21 Group Chemistry GGT 35 0 - 60 12/21 Group Chemistry GGT 35 0 - 60 12/21 Group Chemistry GGT 35 0 - 60 12/21 Group Chemistry TESTO, TOTAL <3 ng/dL 8 - 48 12/21 Group Chemistry TESTO, TOTAL <3 ng/dL 8 - 48 12/21 Group Chemistry TESTO, TOTAL <3 ng/dL 8 - 48 12/21 Group Chemistry TESTO, TOTAL <3 ng/dL 8 - 48 12/21 Group Chemistry TESTO, TOTAL <3 ng/dL 8 - 48 12/21 Group Chemistry TESTO, TOTAL <3 ng/dL 8 - 48 12/21 Group Chemistry ALK PHOS 164 39 - 117 12/21 Group Chemistry ALK PHOS 164 39 - 117 12/21 Group Chemistry ALK PHOS 164 39 - 117 12/21 Group Chemistry ALK PHOS 164 39 - 117 12/21 Group Chemistry ALK PHOS 164 39 - 117 12/21 Group Chemistry ALK PHOS 164 39 - 117 12/21 Group Chemistry ALBUMIN 3.9 3.5 - 5.5 12/21 Group Chemistry SGOT (AST) 61 0 - 40 12/21 Group Chemistry SGPT (ALT) 50 0 - 32 12/21 Medical /2014 [facility] Chemistry ALBUMIN 3.9 3.5 - 5.5 12/21 Group Chemistry SGOT (AST) 61 0 - 40 12/21 /2014 Group Chemistry SGPT (ALT) 50 0 - 32 12/21 Group Chemistry ALBUMIN 3.9 3.5 - 5.5 12/21 Group Chemistry SGOT (AST) 61 0 - 40 12/21 Group Chemistry SGPT (ALT) 50 0 - 32 12/21 Group Chemistry ALBUMIN 3.9 3.5 - 5.5 12/21 Group Chemistry SGOT (AST) 61 0 - 40 12/21 Group Chemistry SGPT (ALT) 50 0 - 32 12/21 Group Chemistry ALBUMIN 3.9 3.5 - 5.5 12/21 Group Chemistry SGOT (AST) 61 0 - 40 12/21 Group Chemistry ALBUMIN 3.9 3.5 - 5.5 12/21 Group Chemistry SGOT (AST) 61 0 - 40 12/21 Group Chemistry BUN 5 6 - 20 12/21 Group Chemistry CREATININE 0.58 0.57 - 12/21 Medical . Group Chemistry BUN/CREAT 9 8 - 12/21 Group Chemistry CREATININE 0.58 0.57 - 12/21 Medical . Group Chemistry BUN 5 6 - 20 12/21 Group Chemistry CREATININE 0.58 0.57 - 12/21 Medical . Group Chemistry BUN/CREAT 9 8 - 12/21 Group Chemistry CREATININE 0.58 0.57 - 12/21 Medical 1. Group Chemistry BUN 5 6 - 20 12/21 Group Chemistry CREATININE 0.58 0.57 - 12/21 Medical . Group Chemistry BUN/CREAT 9 8 - 20 12/21 /2014 Group Chemistry CALCIUM 8.8 8.7 - 10.2 12/21 Group Chemistry BUN 5 6 - 20 12/21 Group Chemistry CREATININE 0.58 0.57 - 12/21 Medical 1. Group Chemistry BUN/CREAT 9 8 - 20 12/21 Group Chemistry CALCIUM 8.8 8.7 - 10.2 12/21 Group Chemistry BUN 5 6 - 20 12/21 Group Chemistry BUN/CREAT 9 8 - 20 12/21 Group Chemistry BUN 5 6 - 20 12/21 Group Chemistry BUN/CREAT 9 8 - 20 12/21 Group Chemistry SODIUM 139 134 - 144 12/21 Group Chemistry POTASSIUM 4.0 3.5 - 5.2 12/21 Group Chemistry SODIUM 139 134 - 144 12/21 Group Chemistry POTASSIUM 4.0 3.5 - 5.2 12/21 Group Chemistry SODIUM 139 134 - 144 12/21 Group Chemistry POTASSIUM 4.0 3.5 - 5.2 12/21 Group Chemistry SODIUM 139 134 - 144 12/21 Group Chemistry POTASSIUM 4.0 3.5 - 5.2 12/21 Group Chemistry SODIUM 139 134 - 144 12/21 Group Chemistry POTASSIUM 4.0 3.5 - 5.2 12/21 Group Chemistry SODIUM 139 134 - 144 12/21 Group Chemistry POTASSIUM 4.0 3.5 - 5.2 12/21 Group CHEM PANEL eGFR 122 11/29 <sup>1</sup>R [facility] Comment: The eGFR is calculated using the CKD-EPI formula. In most young, healthy individuals the eGFR will be >90 mL/min/1.73m2 . The eGFR declines with age. An eGFR of 60-89 may be normal in some populations, particularly the elderly, for whom the CKD-EPI formula has not been extensively validated. Use of the eGFR is not recommended in the following populations:& lt;br/>
I ndividuals with unstable creatinine concentration s, including patients and those with serious co-morbid conditions.<b r/>
Patie nts with extremes in muscle mass or diet.

The data above are obtained from the National Kidney Disease Education Program (NKDEP) which additionally recommends that when the eGFR is used in patients with extremes of body mass index for purposes of drug dosing, the eGFR should be multiplied by the estimated BMI. CHEM PANEL ALT 48 0 - 65 11/29 [facility] CHEM PANEL A/G Ratio 0.9 0.7 - 1.6 11/29 [facility] CHEM PANEL Globulin 3.0 2.0 - 4.0 11/29 [facility] CHEM PANEL Albumin Lvl 2.8 3.5 - 5.0 11/29 [facility] CHEM PANEL Bili Total 0.5 0.2 - 1.3 11/29 [facility] CHEM PANEL Alk Phos 149 39 - 136 11/29 [facility] CHEM PANEL AST 86 0 - 37 11/29 [facility] CHEM PANEL Total 5.8 6.4 - 8.4 11/29 [facility] CHEM PANEL BUN 5 7 - 22 11/29 [facility] CHEM PANEL Creatinine 0.5 0.5 - 1.4 11/29 Lvl [facility] CHEM PANEL Glucose Lvl 77 70 - 99 11/29 <sup>3</sup>I nterpretive [facility] Data: Adult reference range values reflect the clinical guidelines
of the [place] [employer]. CHEM PANEL B/C Ratio 10 6 - 25 11/29 [facility] CHEM PANEL CO2 27 24 - 32 11/29 [facility] CHEM PANEL Calcium Lvl 7.9 8.5 - 10.5 11/29 [facility] CHEM PANEL AGAP 10.4 10.0 - 11/29 20.0 [facility] CHEM PANEL Chloride Lvl 107 95 - 109 11/29 [facility] CHEM PANEL Sodium Lvl 141 135 - 145 11/29 [facility] CHEM PANEL Potassium 3.4 3.5 - 5.1 11/29 Lvl [facility] HEMATOLOGY Eosinophils 0.3 0.0 - 0.5 11/29 [facility] # /2015 [facility] HEMATOLOGY Monocytes # 0.4 0.0 - 0.8 11/29 [facility] HEMATOLOGY Segs 53.1 45.0 - 11/29 [facility] 75.0 /2014 [facility] HEMATOLOGY Eosinophils 4.9 0.0 - 4.0 11/29 [facility] HEMATOLOGY Lymphocytes 33.6 20.0 - 11/29 [facility] 40.0 /2014 [facility] HEMATOLOGY Monocytes 8.0 2.0 - 12.0 11/29 /2014 [facility] HEMATOLOGY Basophils 0.4 0.0 - 1.0 11/29 /2014 [facility] HEMATOLOGY Lymphocytes 1.7 1.0 - 5.5 11/29 [facility] # /2015 [facility] HEMATOLOGY Segs-Bands # 2.8 1.5 - 8.1 11/29 /[address] [facility] 8.6 7.4 - 10.4 11/29 /[address] [facility] RDW 13.0 11.5 - 11/29 14.5 /2014 [facility] HEMATOLOGY Platelet 199 133 - 450 11/29 /2014 [facility] HEMATOLOGY MCHC 34.0 32.0 - 11/29 36.0 /2014 [facility] HEMATOLOGY MCH 31.5 27.0 - 11/29 31.0 /2014 [facility] HEMATOLOGY WBC 5.2 3.7 - 10.4 11/29 /2014 [facility] HEMATOLOGY RBC 3.92 4.20 - 11/29 5.40 /2014 [facility] HEMATOLOGY Hgb 12.4 12.0 - 11/29 16.0 /2014 [facility] HEMATOLOGY MCV 92.7 80.0 - 11/29 98.0 /2014 [facility] HEMATOLOGY Hct 36.4 36.0 - 11/29 48.0 /2014 [facility] HEMATOLOGY PT 14.0 12.0 - 11/29 14.7 /2014 [facility] HEMATOLOGY PTT 35.9 22.9 - 11/29 <sup>7</sup>I 35.8 /2014 nterpretive [facility] Data: Heparin Therapeutic Range: 57 - 92 Seconds HEMATOLOGY INR 1.08 0.85 - 11/29 <sup>5</sup>I 1.17 /2014 nterpretive [facility] Data: RECOMMENDED RANGES FOR PROTIME INR:
2.0-3.0 for most medical and surgical thromboemboli c states.
2.5-3.5 for artificial heart valves and recurrent embolism.<br/ >
INR SHOULD BE USED ONLY FOR PATIENTS ON STABLE ANTICOAGULANT THERAPY. URINE AND UA <=1.0 0.1 - 1.0 11/29 STOOL Urobilinogen mg/dL /2014 [facility] URINE AND UA CaOx Sofya Occasional None Seen 11/29 STOOL /HPF /HPF /2014 [facility] URINE AND UA RBC 1 0 - 2 11/29 STOOL /2014 [facility] URINE AND UA Mucus Few /LPF None Seen 11/29 STOOL /LPF [facility] URINE AND UA WBC 1 0 - 5 11/29 [facility]OL [facility] URINE AND UA Sq Epi Occasional Few /LPF 11/29 STOOL /LPF [place] URINE AND UA Leuk Est Negative Negative 11/29 STOOL (11/28/14 11:04 PM) /2014 [facility] URINE AND UA Nitrite Negative Negative 11/29 STOOL (11/28/14 11:04 PM) [facility] URINE AND UA Turbidity Clear Clear 11/29 STOOL (11/28/14 11:04 PM) /2014 [facility] URINE AND UA Color Yellow Yellow 11/29 STOOL *NA* /2014 [facility] (11/28/14 11:04 PM) URINE AND UA pH 5.0 5.0 - 8.0 11/29 STOOL [facility] URINE AND UA Spec Grav 1.027 <=1.030 11/29 STOOL [facility] URINE AND UA Blood Small Negative 11/29 STOOL *ABN* /2014 [facility] (11/28/14 11:04 PM) URINE AND UA Bili Negative Negative 11/29 STOOL *NA* /2014 [facility] (11/28/14 11:04 PM) URINE AND UA Ketones Trace Negative 11/29 STOOL mg/dL mg/dL /2014 [facility] URINE AND UA Glucose Negative Negative 11/29 STOOL mg/dL mg/dL [facility] URINE AND UA Protein Negative Negative 11/29 STOOL mg/dL mg/dL [facility] BLOOD BANK Antibody Negative 11/29 RESULTS Scrn (11/28/14 9:42 PM) /2014 [facility] BLOOD BANK ABO/Rh O NEG 11/29 RESULTS /2014 [facility] BLOOD BANK RBC product Product available 11/29 RESULTS (11/28/14 7:12 PM) [facility] CHEM PANEL Bili Total 0.3 0.2 - 1.3 11/28 [facility] CHEM PANEL ALT 21 0 - 65 11/28 [facility] CHEM PANEL AST 19 0 - 37 11/28 [facility] CHEM PANEL Alk Phos 137 39 - 136 11/28 [facility] CHEM PANEL AGAP 8.4 10.0 - 11/28 [facility] 20.0 [facility] CHEM PANEL B/C Ratio 10 6 - 25 11/28 [facility] CHEM PANEL Total 6.6 6.4 - 8.4 01/ [facility] CHEM PANEL Globulin 3.4 2.0 - 4.0 11/28 [facility] CHEM PANEL A/G Ratio 0.9 0.7 - 1.6 11/28 [facility] CHEM PANEL CO2 27 24 - 32 11/28 [facility] CHEM PANEL Albumin Lvl 3.2 3.5 - 5.0 11/28 [facility] CHEM PANEL BUN 7 7 - 22 11/28 [facility] CHEM PANEL Glucose Lvl 75 70 - 99 11/28 <sup>4</sup>I nterpretive [facility] Data: Adult reference range values reflect the clinical guidelines
of the [employer]. CHEM PANEL eGFR 109 11/28 <sup>2</sup>R esult [facility] Comment: The eGFR is calculated using the CKD-EPI formula. In most young, healthy individuals the eGFR will be >90 mL/min/1.73m2 . The eGFR declines with age. An eGFR of 60-89 may be normal in some populations, particularly the elderly, for whom the CKD-EPI formula has not been extensively validated. Use of the eGFR is not recommended in the following populations:& lt;br/>
I ndividuals with unstable creatinine concentration s, including patients and those with serious co-morbid conditions.<b r/>
Patie nts with extremes in muscle mass or diet.

The data above are obtained from the National Kidney Disease Education Program (NKDEP) which additionally recommends that when the eGFR is used in patients with extremes of body mass index for purposes of drug dosing, the eGFR should be multiplied by the estimated BMI. CHEM PANEL Creatinine 0.7 0.5 - 1.4 11/28 Lvl [facility] CHEM PANEL Sodium Lvl 141 135 - 145 11/28 [facility] CHEM PANEL Potassium 3.4 3.5 - 5.1 11/28 Lvl [facility] CHEM PANEL Chloride Lvl 109 95 - 109 11/28 [facility] CHEM PANEL Calcium Lvl 8.4 8.5 - 10.5 11/28 [facility] HEMATOLOGY Eosinophils 0.4 0.0 - 0.5 11/28 # /2014 [facility] HEMATOLOGY Monocytes # 0.6 0.0 - 0.8 11/28 [facility] HEMATOLOGY Lymphocytes 2.0 1.0 - 5.5 11/28 [facility] # /2015 [facility] HEMATOLOGY Segs-Bands # 5.4 1.5 - 8.1 11/28 /2014 [facility] HEMATOLOGY Basophils 0.7 0.0 - 1.0 11/28 [facility] HEMATOLOGY Basophils # 0.1 0.0 - 0.2 11/28 /2014 [facility] HEMATOLOGY Eosinophils 4.4 0.0 - 4.0 11/28 /2014 [facility] HEMATOLOGY Monocytes 6.8 2.0 - 12.0 11/28 /2014 [facility] HEMATOLOGY Lymphocytes 23.5 20.0 - 11/28 MH 40.0 /2014 [facility] HEMATOLOGY Segs 64.6 45.0 - 11/28 [facility] 75.0 /2014 [facility] HEMATOLOGY RDW 12.8 11.5 - 11/28 14.5 /2014 [facility] HEMATOLOGY MCHC 34.2 32.0 - 11/28 36.0 /2014 [facility] HEMATOLOGY MPV 8.0 7.4 - 10.4 11/28 /2014 [facility] HEMATOLOGY Platelet 235 133 - 450 11/28 [facility] HEMATOLOGY MCH 31.7 27.0 - 11/28 31.0 /2014 [facility] HEMATOLOGY MCV 92.5 80.0 - 11/28 98.0 /2014 [facility] HEMATOLOGY Hct 37.9 36.0 - 11/28 48.0 /2014 [facility] HEMATOLOGY Hgb 13.0 12.0 - 11/28 16.0 /2014 [facility] HEMATOLOGY RBC 4.10 4.20 - 11/28 5.40 /2014 [facility] HEMATOLOGY WBC 8.4 3.7 - 10.4 11/28 /2014 [facility] HEMATOLOGY INR 1.06 0.85 - 11/28 <sup>6</sup>I 1.17 /2014 nterpretive [facility] Data: RECOMMENDED RANGES FOR PROTIME INR:
2.0-3.0 for most medical and surgical thromboemboli c states.
2.5-3.5 for artificial heart valves and recurrent embolism.<br/ >
INR SHOULD BE USED ONLY FOR PATIENTS ON STABLE ANTICOAGULANT THERAPY. HEMATOLOGY PTT 32.6 22.9 - 11/28 <sup>8</sup>I 35.8 /2014 nterpretive [facility] Data: Heparin Therapeutic Range: 57 - 92 Seconds HEMATOLOGY PT 13.8 12.0 - 11/28 14.7 /2014 [facility] CHEM PANEL Phosphorus 3.7 2.5 - 4.5 11/[address] [facility] CHEM PANEL Magnesium 1.9 1.8 - 2.4 11/10 [facility] ELECTROLYT AGAP 16.2 10.0 - 11/10 [facility] 20.0 /[address] [facility] ELECTROLYT eGFR 123 11/10 <sup>1</sup>R [facility] esult Medical Comment: The Center eGFR is calculated using the CKD-EPI formula. In most young, healthy individuals the eGFR will be >90 mL/min/1.73m2 . The eGFR declines with age. An eGFR of 60-89 may be normal in some populations, particularly the elderly, for whom the CKD-EPI formula has not been extensively validated. Use of the eGFR is not recommended in the following populations:& lt;br/>
I ndividuals with unstable creatinine concentration s, including patients and those with serious co-morbid conditions.<b r/>
Patie nts with extremes in muscle mass or diet.

The data above are obtained from the National Kidney Disease Education Program (NKDEP) which additionally recommends that when the eGFR is used in patients with extremes of body mass index for purposes of drug dosing, the eGFR should be multiplied by the estimated BMI. ELECTROLYT Calcium Lvl 8.6 8.5 - 10.5 11/10 [facility] ELECTROLYT CO2 24 24 - 32 11/10 [facility] ELECTROLYT Chloride Lvl 103 95 - 109 11/10 [facility] ELECTROLYT Potassium 4.2 3.5 - 5.1 11/10 [facility] ELECTROLYT Creatinine 0.5 0.5 - 1.4 11/10 [facility] [place] [facility] ELECTROLYT Sodium Lvl 139 135 - 145 11/10 [facility] ELECTROLYT Glucose Lvl 76 70 - 99 11/10 <sup>4</sup>I [facility] nterpretive Medical Data: Adult Center reference range values reflect the clinical guidelines
of the [employer]. ELECTROLYT BUN 7 7 - 22 11/10 [facility] HEMATOLOGY MCV 96.3 80.0 - 11/10 [facility] [place] 98.0 /[address] [facility] HEMATOLOGY Hgb 13.0 12.0 - 11/10 [place] 16.0 /[address] [facility] HEMATOLOGY Hct 38.1 36.0 - 11/10 [place] 48.0 /[address] [facility] HEMATOLOGY MCHC 34.1 32.0 - 11/10 [place] 36.0 /[address] [facility] HEMATOLOGY MCH 32.9 27.0 - 11/10 [place] 31.0 /[address] [facility] HEMATOLOGY MPV 9.3 7.4 - 10.4 11/[address] [facility] HEMATOLOGY Platelet 207 133 - 450 11/[address] [facility] HEMATOLOGY RDW 13.1 11.5 - 11/10 [place] 14.5 /[address] [facility] HEMATOLOGY WBC 9.5 3.7 - 10.4 11/[address] [facility] HEMATOLOGY RBC 3.95 4.20 - 11/10 [place] 5.40 /[address] [facility] HEMATOLOGY Monocytes 5.7 2.0 - 12.0 11/[address] [facility] HEMATOLOGY Eosinophils 0.8 0.0 - 4.0 11/[address] [facility] HEMATOLOGY Segs 82.2 45.0 - 11/10 [place] 75.0 /[address] [facility] HEMATOLOGY Lymphocytes 11.1 20.0 - 11/10 [place] [address] [facility] HEMATOLOGY Eosinophils 0.1 0.0 - 0.5 11/10 # /[address] [facility] HEMATOLOGY Monocytes # 0.5 0.0 - 0.8 11/[address] [facility] HEMATOLOGY Segs-Bands # 7.8 1.5 - 8.1 11/[address] [facility] HEMATOLOGY Lymphocytes 1.1 1.0 - 5.5 11/10 # /[address] [facility] HEMATOLOGY Basophils 0.2 0.0 - 1.0 11/[address] [facility] CHEM PANEL Phosphorus 3.5 2.5 - 4.5 11/[address] [facility] CHEM PANEL Magnesium 2.2 1.8 - 2.4 11/09 [facility] Lvl [facility] CHEM PANEL eGFR 116 11/09 <sup>2</sup>R esult Medical Comment: The Center eGFR is calculated using the CKD-EPI formula. In most young, healthy individuals the eGFR will be >90 mL/min/1.73m2 . The eGFR declines with age. An eGFR of 60-89 may be normal in some populations, particularly the elderly, for whom the CKD-EPI formula has not been extensively validated. Use of the eGFR is not recommended in the following populations:& lt;br/>
I ndividuals with unstable creatinine concentration s, including patients and those with serious co-morbid conditions.<b r/>
Patie nts with extremes in muscle mass or diet.

The data above are obtained from the National Kidney Disease Education Program (NKDEP) which additionally recommends that when the eGFR is used in patients with extremes of body mass index for purposes of drug dosing, the eGFR should be multiplied by the estimated BMI. CHEM PANEL Glucose Lvl 75 70 - 99 11/09 <sup>5</sup>I nterpretive Medical Data: Adult Center reference range values reflect the clinical guidelines
of the [employer]. CHEM PANEL BUN 5 7 - 22 11/[address] [facility] CHEM PANEL Sodium Lvl 139 135 - 145 11/09 [facility] [facility] CHEM PANEL Creatinine 0.6 0.5 - 1.4 11/09 [facility] CHEM PANEL Calcium Lvl 8.6 8.5 - 10.5 11/[address] [facility] CHEM PANEL CO2 27 24 - 32 11/[address] [facility] CHEM PANEL Chloride Lvl 103 95 - 109 11/09 [facility] CHEM PANEL Potassium 4.0 3.5 - 5.1 11/09 [facility] CHEM PANEL AGAP 13.0 10.0 - 11/09 [place] 20.[address] [facility] HEMATOLOGY Platelet 170 133 - 450 11/[address] [facility] HEMATOLOGY MPV 8.7 7.4 - 10.4 11/[address] [facility] HEMATOLOGY RDW 13.1 11.5 - 11/09 [place] 14.[address] [facility] HEMATOLOGY Hct 37.3 36.0 - 11/09 [place] 48.[address] [facility] HEMATOLOGY MCHC 34.9 32.0 - 11/09 [place] 36.0 /[address] [facility] HEMATOLOGY RBC 3.95 4.20 - 11/09 [place] 5.40 /[address] [facility] HEMATOLOGY Hgb 13.0 12.0 - 01/02 [place] 16.0 /[address] [facility] HEMATOLOGY WBC 8.8 3.7 - 10.4 11/[address] [facility] HEMATOLOGY MCV 94.5 80.0 - 11/09 [place] 98.[address] [facility] HEMATOLOGY MCH 33.0 27.0 - 11/09 [place] 31.0 /[address] [facility] HEMATOLOGY Eosinophils 0.1 0.0 - 0.5 11/09 [facility] # [facility] HEMATOLOGY Monocytes # 0.6 0.0 - 0.8 11/[address] [facility] HEMATOLOGY Segs 75.1 45.0 - 11/09 [place] 75.0 /[address] [facility] HEMATOLOGY Segs-Bands # 6.6 1.5 - 8.1 11/[address] [facility] HEMATOLOGY Lymphocytes 1.4 1.0 - 5.5 11/09 [facility] HEMATOLOGY Basophils 0.2 0.0 - 1.0 11/[address] [facility] HEMATOLOGY Eosinophils 1.6 0.0 - 4.0 11/[address] [facility] HEMATOLOGY Monocytes 7.1 2.0 - 12.0 11/[address] [facility] HEMATOLOGY Lymphocytes 16.0 20.0 - 11/09 [place] [address] [facility] CHEM PANEL Phosphorus 4.4 2.5 - 4.5 11/[address] [facility] CHEM PANEL Magnesium 1.6 1.8 - 2.4 11/08 [facility] Lvl [facility] CHEM PANEL eGFR 110 11/08 <sup>3</sup>R esult Medical Comment: The Center eGFR is calculated using the CKD-EPI formula. In most young, healthy individuals the eGFR will be >90 mL/min/1.73m2 . The eGFR declines with age. An eGFR of 60-89 may be normal in some populations, particularly the elderly, for whom the CKD-EPI formula has not been extensively validated. Use of the eGFR is not recommended in the following populations:& lt;br/>
I ndividuals with unstable creatinine concentration s, including patients and those with serious co-morbid conditions.<b r/>
Patie nts with extremes in muscle mass or diet.

The data above are obtained from the National Kidney Disease Education Program (NKDEP) which additionally recommends that when the eGFR is used in patients with extremes of body mass index for purposes of drug dosing, the eGFR should be multiplied by the estimated BMI. CHEM PANEL Calcium Lvl 8.4 8.5 - 10.5 11/[address] [facility] CHEM PANEL CO2 28 24 - 32 11/08 [facility] CHEM PANEL Potassium 4.0 3.5 - 5.1 11/08 [facility] CHEM PANEL Chloride Lvl 102 95 - 109 11/[address] [facility] CHEM PANEL Sodium Lvl 138 135 - 145 11/08 [facility] CHEM PANEL BUN 5 7 - 22 11/08 [facility] CHEM PANEL Creatinine 0.7 0.5 - 1.4 11/08 [facility] CHEM PANEL Glucose Lvl 86 70 - 99 11/08 <sup>6</sup>I nterpretive Medical Data: Adult Center reference range values reflect the clinical guidelines
of the [employer]. CHEM PANEL AGAP 12.0 10.0 - 11/08 [facility] 20.0 /[address] [facility] HEMATOLOGY Basophils 0.2 0.0 - 1.0 11/[address] [facility] HEMATOLOGY Segs 77.0 45.0 - 11/08 [place] [address] [facility] HEMATOLOGY Lymphocytes 14.9 20.0 - 11/08 [place] [address] [facility] HEMATOLOGY Monocytes 7.0 2.0 - 12.0 11/[address] HEMATOLOGY Eosinophils 0.9 0.0 - 4.0 11/[address] [facility] HEMATOLOGY Segs-Bands # 6.9 1.5 - 8.1 11/[address] [facility] HEMATOLOGY Lymphocytes 1.3 1.0 - 5.5 11/08 [facility] /[address] [facility] HEMATOLOGY Monocytes # 0.6 0.0 - 0.8 11/08 [facility] HEMATOLOGY Eosinophils 0.1 0.0 - 0.5 11/[address] [facility] HEMATOLOGY MCHC 35.0 32.0 - 11/08 [place] 36.[address] [facility] HEMATOLOGY Platelet 186 133 - 450 11/08 [facility] HEMATOLOGY MCH 33.0 27.0 - 11/08 [facility] [place] 31.0 /[address] [facility] HEMATOLOGY MCV 94.2 80.0 - 11/08 98.0 /[address] [facility] HEMATOLOGY RDW 13.0 11.5 - 11/[address] [facility] HEMATOLOGY MPV 9.1 7.4 - 10.4 11/[address] [facility] HEMATOLOGY Hgb 13.4 12.0 - 11/08 <sup>7</sup>R 16.0 esult Medical Comment: Center rechecked HEMATOLOGY RBC 4.08 4.20 - 11/08 [facility] 5.40 /[address] [facility] HEMATOLOGY WBC 8.9 3.7 - 10.4 11/[address] [facility] HEMATOLOGY Hct 38.4 36.0 - 11/08 [facility] 48.0 /[address] [facility] CHEM PANEL AST 34 0 - 37 11/[address] [facility] CHEM PANEL Bili Total 0.6 0.2 - 1.3 11/[address] [facility] CHEM PANEL ALT 91 0 - 65 11/[address] [facility] CHEM PANEL Albumin Lvl 3.7 3.5 - 5.0 11/[address] [facility] CHEM PANEL Alk Phos 243 39 - 136 11/[address] [facility] CHEM PANEL Total 7.9 6.4 - 8.4 11/[address] [facility] CHEM PANEL B/C Ratio 8 6 - 25 11/[address] [facility] CHEM PANEL Globulin 4.2 2.0 - 4.0 11/[address] [facility] CHEM PANEL A/G Ratio 0.9 0.7 - 1.6 11/[address] [facility] BLOOD BANK ABO/Rh O NEG 11/07 [facility] RESULTS [facility] BLOOD BANK Antibody Negative 11/07 [facility] RESULTS Scrn (11/07/14 7:00 AM) [facility] CHEM PANEL Lipase Lvl 102 73 - 393 11/[address] [facility] CHEM PANEL Bili 0.5 0.0 - 1.0 11/01 [facility] CHEM PANEL A/G Ratio 1.0 0.7 - 1.6 11/[address] [facility] CHEM PANEL Globulin 3.0 2.0 - 4.0 11/[address] [facility] CHEM PANEL Alk Phos 206 39 - 136 11/[address] [facility] CHEM PANEL Bili Direct 0.2 0.0 - 0.3 11/[address] [facility] CHEM PANEL Bili Total 0.7 0.2 - 1.3 11/[address] [facility] CHEM PANEL ALT 269 0 - 65 11/[address] [facility] CHEM PANEL AST 349 0 - 37 11/[address] [facility] CHEM PANEL Albumin Lvl 2.9 3.5 - 5.0 11/[address] [facility] CHEM PANEL Total 5.9 6.4 - 8.4 11/[address] [facility] ELECTROLYT AGAP 10.8 10.0 - 11/01 [facility] 20.[address] [facility] ELECTROLYT eGFR 110 11/01 <sup>1</sup>R esult Medical Comment: The Center eGFR is calculated using the CKD-EPI formula. In most young, healthy individuals the eGFR will be >90 mL/min/1.73m2 . The eGFR declines with age. An eGFR of 60-89 may be normal in some populations, particularly the elderly, for whom the CKD-EPI formula has not been extensively validated. Use of the eGFR is not recommended in the following populations:& lt;br/>
I ndividuals with unstable creatinine concentration s, including patients and those with serious co-morbid conditions.<b r/>
Patie nts with extremes in muscle mass or diet.

The data above are obtained from the National Kidney Disease Education Program (NKDEP) which additionally recommends that when the eGFR is used in patients with extremes of body mass index for purposes of drug dosing, the eGFR should be multiplied by the estimated BMI. ELECTROLYT Calcium Lvl 7.9 8.5 - 10.5 11/[address] [facility] ELECTROLYT CO2 27 24 - 32 11/[address] [facility] ELECTROLYT Chloride Lvl 108 95 - 109 11/[address] [facility] ELECTROLYT Glucose Lvl 85 70 - 99 11/01 <sup>2</sup>I nterpretive Medical Data: Adult Center reference range values reflect the clinical guidelines
of the [employer]. ELECTROLYT Creatinine 0.7 0.5 - 1.4 11/01 [facility] ES Lvl [facility] ELECTROLYT BUN 7 7 - 22 11/[address] [facility] ELECTROLYT Potassium 3.8 3.5 - 5.1 11/01 [facility] ES Lvl [facility] ELECTROLYT Sodium Lvl 142 135 - 145 11/[address] [facility] HEMATOLOGY Segs 64.5 45.0 - 11/01 [place] [address] [facility] HEMATOLOGY Monocytes 6.5 2.0 - 12.0 11/[address] [facility] HEMATOLOGY Lymphocytes 27.3 20.0 - 11/01 [place] [address] [facility] HEMATOLOGY Eosinophils 1.5 0.0 - 4.0 11/[address] [facility] HEMATOLOGY Lymphocytes 1.7 1.0 - 5.5 11/01 # [facility] HEMATOLOGY Segs-Bands # 4.1 1.5 - 8.1 11/[address] [facility] HEMATOLOGY Basophils 0.2 0.0 - 1.0 11/[address] [facility] HEMATOLOGY Monocytes # 0.4 0.0 - 0.8 11/[address] [facility] HEMATOLOGY Eosinophils 0.1 0.0 - 0.5 11/[address] [facility] HEMATOLOGY MPV 8.4 7.4 - 10.4 11/[address] [facility] HEMATOLOGY Platelet 178 133 - 450 11/[address] [facility] HEMATOLOGY MCHC 33.8 32.0 - 11/01 [place] 36.[address] [facility] HEMATOLOGY RDW 12.9 11.5 - 11/01 [place] 14.[address] [facility] HEMATOLOGY MCH 32.1 27.0 - 11/01 [place] 31.[address] [facility] HEMATOLOGY MCV 95.1 80.0 - 11/01 [place] 98.[address] [facility] HEMATOLOGY Hct 38.9 36.0 - 11/01 [place] [address] [facility] HEMATOLOGY WBC 6.3 3.7 - 10.4 11/[address] [facility] HEMATOLOGY Hgb 13.2 12.0 - 11/01 [place] 16.[address] [facility] HEMATOLOGY RBC 4.09 4.20 - 11/01 [place] 5.40 /[address] [facility] ENDOCRINOL S Preg Negative Negative 07/18 [facility] *NA* /2013 [facility] (07/18/14 12:40 AM) Chemistry SODIUM 140 MEQ/L 135 - 145 07/17 Group Chemistry POTASSIUM 3.8 MEQ/L 3.5 - 5.1 07/17 Group Chemistry CREATININE 0.6 0.5 - 1.4 07/17 Group Chemistry BUN 7 7 - 22 07/17 Group Chemistry SODIUM 140 MEQ/L 135 - 145 07/17 Group Chemistry POTASSIUM 3.8 MEQ/L 3.5 - 5.1 07/17 Group Chemistry CREATININE 0.6 0.5 - 1.4 07/17 Group Chemistry SODIUM 140 MEQ/L 135 - 145 07/17 Group Chemistry POTASSIUM 3.8 MEQ/L 3.5 - 5.1 07/17 Group Chemistry CREATININE 0.6 0.5 - 1.4 07/17 Group Chemistry SODIUM 140 MEQ/L 135 - 145 07/17 Group Chemistry POTASSIUM 3.8 MEQ/L 3.5 - 5.1 07/17 Group Chemistry CREATININE 0.6 0.5 - 1.4 07/17 Group Chemistry BUN 7 7 - 22 07/17 Group Chemistry BUN/CREAT 12 6 - 25 07/17 Group Chemistry ALBUMIN 4.0 3.5 - 5.0 07/17 Group Chemistry CALCIUM 9.0 8.5 - 10.5 07/17 Group Chemistry SGPT (ALT) 85 0 - 65 07/17 Group Chemistry SGOT (AST) 46 0 - 37 07/17 Group Chemistry ALK PHOS 157 39 - 136 07/17 Group Chemistry SODIUM 140 MEQ/L 135 - 145 07/17 Group Chemistry POTASSIUM 3.8 MEQ/L 3.5 - 5.1 07/17 Group Chemistry CREATININE 0.6 0.5 - 1.4 07/17 Group Chemistry BUN 7 7 - 22 07/17 Group Chemistry SODIUM 140 MEQ/L 135 - 145 07/17 Group Chemistry POTASSIUM 3.8 MEQ/L 3.5 - 5.1 07/17 Group Chemistry CREATININE 0.6 0.5 - 1.4 07/17 Group Chemistry SODIUM 140 MEQ/L 135 - 145 07/17 Group Chemistry POTASSIUM 3.8 MEQ/L 3.5 - 5.1 07/17 Group Chemistry CREATININE 0.6 0.5 - 1.4 07/17 Group Chemistry BUN 7 7 - 22 07/17 Group Chemistry BUN/CREAT 12 6 - 25 07/17 Group Chemistry ALBUMIN 4.0 3.5 - 5.0 07/17 Group Chemistry CALCIUM 9.0 8.5 - 10.5 07/17 Group Chemistry SGPT (ALT) 85 0 - 65 07/17 Group Chemistry SGOT (AST) 46 0 - 37 07/17 Group Chemistry ALK PHOS 157 39 - 136 07/17 Group Chemistry BUN 7 7 - 22 07/17 Group Chemistry BUN/CREAT 12 6 - 25 07/17 Group Chemistry ALBUMIN 4.0 3.5 - 5.0 07/17 [facility] CALCIUM 9.0 8.5 - 10.5 07/17 Group Chemistry SGPT (ALT) 85 0 - 65 07/17 Group Chemistry SGOT (AST) 46 0 - 37 07/17 Group Chemistry ALK PHOS 157 39 - 136 07/17 [facility] Hematology HGB 13.6 12.0 - 07/17 16. Group Hematology HCT 41.8 36.0 - 07/17 48. Group Hematology PLATELETS 199 K/CMM 133 - 450 07/17 [facility] H[facility]ology HGB 13.6 12.0 - 07/17 16. Group Hematology HCT 41.8 36.0 - 07/17 48. Group Hematology PLATELETS 199 K/CMM 133 - 450 07/17 Group Urinalysis UA COLOR Yellow 07/17 Group Urinalysis BACTERIA URN Occasional 07/17 Group Urinalysis UA COLOR Yellow 07/17 Group Urinalysis BACTERIA URN Occasional 07/17 Group Urinalysis UA COLOR Yellow 07/17 Group Urinalysis BACTERIA URN Occasional 07/17 Group Urinalysis UA COLOR Yellow 07/17 Group Urinalysis BACTERIA URN Occasional 07/17 Group Urinalysis BACTERIA URN Occasional 07/17 Group URINE AND UA <=1.0 0.1 - 1.0 07/17 STOOL Urobilinogen mg/dL [facility] URINE AND UA Mucus Few /LPF None Seen 07/17 STOOL /LPF /2013 [facility] URINE AND UA Leuk Est Small Negative 07/17 STOOL *ABN* /2013 [facility] (07/17/14 1:50 AM) URINE AND UA Sq Epi Few /LPF Few /LPF 07/17 STOOL [facility] URINE AND UA Blood Small Negative 07/17 STOOL *ABN* /2013 [facility] (07/17/14 1:50 AM) URINE AND UA Nitrite Negative Negative 07/17 STOOL (07/17/14 1:50 AM) [facility] URINE AND UA Color Yellow Yellow 07/17 STOOL *NA* /2013 [facility] (07/17/14 1:50 AM) URINE AND UA Turbidity Clear Clear 07/17 STO[facility] (07/17/14 1:50 AM) [facility] URINE AND UA pH 5.0 5.0 - 8.0 07/17 [facility] URINE AND UA Protein Negative Negative 07/17 STOOL mg/dL mg/dL [facility] URINE AND UA Spec Grav 1.016 <=1.030 07/17 [facility]OOL [facility] URINE AND UA WBC 4 0 - 5 07/17 [facility] URINE AND UA RBC 2 0 - 2 07/17 [facility] URINE AND UA Bacteria Occasional None Seen 07/17 STOOL /HPF /HPF [facility] URINE AND UA Glucose Negative Negative 07/17 [facility] mg/dL mg/dL [facility] URINE AND UA Ketones Negative Negative 07/17 [facility] mg/dL mg/dL [facility] URINE AND UA Bili Negative Negative 07/17 STOOL *NA* /2013 [facility] (07/17/14 1:50 AM) CHEM PANEL Lipase Lvl 99 73 - 393 07/17 [facility] CHEM PANEL Amylase Lvl 24 25 - 115 07/17 [facility] CHEM PANEL A/G Ratio 1.1 0.7 - 1.6 07/17 [facility] CHEM PANEL AGAP 11.1 10.0 - 07/17 MH 20.0 /2013 [facility] CHEM PANEL Globulin 3.3 2.0 - 4.0 07/17 [facility] CHEM PANEL B/C Ratio 10 6 - 25 07/17 [facility] CHEM PANEL eGFR 110 07/17 <sup>1</sup>R esult [facility] Comment: The eGFR is calculated using the CKD-EPI formula. In most young, healthy individuals the eGFR will be >90 mL/min/1.73m2 . The eGFR declines with age. An eGFR of 60-89 may be normal in some populations, particularly the elderly, for whom the CKD-EPI formula has not been extensively validated. Use of the eGFR is not recommended in the following populations:& lt;br/>
I ndividuals with unstable creatinine concentration s, including patients and those with serious co-morbid conditions.<b r/>
Patie nts with extremes in muscle mass or diet.

The data above are obtained from the National Kidney Disease Education Program (NKDEP) which additionally recommends that when the eGFR is used in patients with extremes of body mass index for purposes of drug dosing, the eGFR should be multiplied by the estimated BMI. CHEM PANEL Albumin Lvl 3.5 3.5 - 5.0 07/17 [facility] CHEM PANEL ALT 73 0 - 65 07/17 [facility] CHEM PANEL Total 6.8 6.4 - 8.4 07/17 [facility] CHEM PANEL Calcium Lvl 8.3 8.5 - 10.5 07/17 [facility] CHEM PANEL CO2 25 24 - 32 07/17 [facility] CHEM PANEL Chloride Lvl 106 95 - 109 07/17 [facility] CHEM PANEL Potassium 3.1 3.5 - 5.1 07/17l [facility] CHEM PANEL Sodium Lvl 139 135 - 145 07/17 [facility] CHEM PANEL Creatinine 0.7 0.5 - 1.4 07/17 [facility] CHEM PANEL Alk Phos 140 39 - 136 07/17 [facility] CHEM PANEL Bili Total 0.4 0.2 - 1.3 07/17 [facility] CHEM PANEL AST 37 0 - 37 07/17 [facility] CHEM PANEL Glucose Lvl 79 70 - 99 07/17 <sup>2</sup>I nterpretive [facility] Data: Adult reference range values reflect the clinical guidelines
of the [employer]. CHEM PANEL BUN 7 7 - 22 07/17 [facility] HEMATOLOGY Segs-Bands # 3.6 1.5 - 8.1 07/17 [facility] HEMATOLOGY Basophils 0.5 0.0 - 1.0 07/17 [facility] HEMATOLOGY Eosinophils 2.6 0.0 - 4.0 07/17 [facility] HEMATOLOGY Monocytes # 0.4 0.0 - 0.8 07/17 [facility] HEMATOLOGY Lymphocytes 2.4 1.0 - 5.5 07/17 MH # /2013 [facility] HEMATOLOGY Monocytes 6.8 2.0 - 12.0 07/17 [facility] HEMATOLOGY Eosinophils 0.2 0.0 - 0.5 07/17 MH # /2013 [facility] HEMATOLOGY Plt Morph Normal 07/17 (07/17/14 12:40 AM) [facility] HEMATOLOGY RBC Morph Normal 07/17 (07/17/14 12:40 AM) /2013 [facility] HEMATOLOGY Lymphocytes 35.4 20.0 - 07/17 MH 40.0 /2013 [facility] HEMATOLOGY Segs 54.7 45.0 - 07/17 MH 75.0 /2013 [facility] HEMATOLOGY MPV 8.0 7.4 - 10.4 07/17 /2013 [facility] HEMATOLOGY Platelet 181 133 - 450 07/17 /2013 [facility] HEMATOLOGY MCHC 32.6 32.0 - 07/17 MH 36.0 /2013 [facility] HEMATOLOGY MCH 28.2 27.0 - 07/17 MH 31.0 /2013 [facility] HEMATOLOGY MCV 86.3 80.0 - 07/17 MH 98.0 /2013 [facility] HEMATOLOGY RDW 25.7 11.5 - 07/17 MH 14.5 /2013 [facility] HEMATOLOGY WBC 6.6 3.7 - 10.4 07/17 /2013 [facility] HEMATOLOGY RBC 4.41 4.20 - 07/17 MH 5.40 /2013 [facility] HEMATOLOGY Hgb 12.4 12.0 - 07/17 MH 16.0 /2013 [facility] HEMATOLOGY Hct 38.1 36.0 - 07/17 MH 48.0 /2013 [facility] BLOOD BANK RBC product Product available 1 07/13 <sup>1</sup>R RESULTS (07/13/14 9:55 AM) /2013 esult [facility] Comment: 07/13/2014 11:00 KENDRA
called to [place] BLOOD BANK Antibody Negative 07/13 RESULTS Scrn (07/13/14 9:55 AM) /2013 [facility] BLOOD BANK ABO/Rh O NEG 07/13 RESULTS /2013 [facility] CHEM PANEL Bili Total 0.5 0.2 - 1.3 07/13 [facility] CHEM PANEL eGFR 110 07/13 <sup>2</sup>R /2013 esult [facility] Comment: The eGFR is calculated using the CKD-EPI formula. In most young, healthy individuals the eGFR will be >90 mL/min/1.73m2 . The eGFR declines with age. An eGFR of 60-89 may be normal in some populations, particularly the elderly, for whom the CKD-EPI formula has not been extensively validated. Use of the eGFR is not recommended in the following populations:& lt;br/>
I ndividuals with unstable creatinine concentration s, including patients and those with serious co-morbid conditions.<b r/>
Patie nts with extremes in muscle mass or diet.

The data above are obtained from the National Kidney Disease Education Program (NKDEP) which additionally recommends that when the eGFR is used in patients with extremes of body mass index for purposes of drug dosing, the eGFR should be multiplied by the estimated BMI. CHEM PANEL Alk Phos 154 39 - 136 07/13 [facility] CHEM PANEL AGAP 8.5 10.0 - 07/13 20.0 [facility] CHEM PANEL B/C Ratio 7 6 - 25 07/13 [facility] CHEM PANEL Globulin 3.2 2.0 - 4.0 07/13 [facility] CHEM PANEL A/G Ratio 1.2 0.7 - 1.6 07/13 [facility] CHEM PANEL ALT 80 0 - 65 07/13 [facility] CHEM PANEL AST 43 0 - 37 07/13 [facility] CHEM PANEL Calcium Lvl 8.5 8.5 - 10.5 07/13 [facility] CHEM PANEL CO2 27 24 - 32 07/13 [facility] CHEM PANEL Albumin Lvl 3.8 3.5 - 5.0 07/13 [facility] CHEM PANEL Total 7.0 6.4 - 8.4 07/13 [facility] CHEM PANEL Chloride Lvl 108 95 - 109 07/13 [facility] CHEM PANEL Potassium 3.5 3.5 - 5.1 07/13 [facility] CHEM PANEL Sodium Lvl 140 135 - 145 07/13 [facility] CHEM PANEL Creatinine 0.7 0.5 - 1.4 07/13 [facility] CHEM PANEL BUN 5 7 - 22 07/13 [facility] CHEM PANEL Glucose Lvl 97 70 - 99 07/13 <sup>3</sup>I nterpretive [facility] Data: Adult reference range values reflect the clinical guidelines
of the [employer]. BLOOD BANK RBC product Product available 07/03 RESULTS (07/03/14 11:00 AM) [facility] BLOOD BANK Antibody Negative 07/03 RESULTS Scrn (07/03/14 11:00 AM) [facility] BLOOD BANK ABO/Rh O NEG 07/03 RESULTS /2013 [facility] CHEM PANEL eGFR 81 07/03 <sup>1</sup>R esult [facility] Comment: The eGFR is calculated using the CKD-EPI formula. In most young, healthy individuals the eGFR will be >90 mL/min/1.73m2 . The eGFR declines with age. An eGFR of 60-89 may be normal in some populations, particularly the elderly, for whom the CKD-EPI formula has not been extensively validated. Use of the eGFR is not recommended in the following populations:& lt;br/>
I ndividuals with unstable creatinine concentration s, including patients and those with serious co-morbid conditions.<b r/>
Patie nts with extremes in muscle mass or diet.

The data above are obtained from the National Kidney Disease Education Program (NKDEP) which additionally recommends that when the eGFR is used in patients with extremes of body mass index for purposes of drug dosing, the eGFR should be multiplied by the estimated BMI. CHEM PANEL Bili Total 0.6 0.2 - 1.3 07/03 [facility] CHEM PANEL AST 50 0 - 37 07/03 [facility] CHEM PANEL Alk Phos 152 39 - 136 07/03 [facility] CHEM PANEL Potassium 4.0 3.5 - 5.1 07/03 Lvl /2013 [facility] CHEM PANEL Chloride Lvl 110 95 - 109 07/03 [facility] CHEM PANEL Sodium Lvl 143 135 - 145 07/03 [facility] CHEM PANEL Albumin Lvl 3.5 3.5 - 5.0 07/03 [facility] CHEM PANEL Calcium Lvl 9.1 8.5 - 10.5 07/03 [facility] CHEM PANEL CO2 22 24 - 32 07/03 [facility] CHEM PANEL Total 6.8 6.4 - 8.4 07/03 Protein [facility] CHEM PANEL BUN 7 7 - 22 07/03 [facility] CHEM PANEL Creatinine 0.9 0.5 - 1.4 07/03 Lvl [facility] CHEM PANEL Glucose Lvl 93 70 - 99 07/03 <sup>2</sup>I nterpretive [facility] Data: Adult reference range values reflect the clinical guidelines
of the [employer]. CHEM PANEL ALT 75 0 - 65 07/03 [facility] CHEM PANEL Globulin 3.3 2.0 - 4.0 07/03 [facility] CHEM PANEL A/G Ratio 1.1 0.7 - 1.6 07/03 [facility] CHEM PANEL AGAP 15.0 10.0 - 07/03 20.0 [facility] CHEM PANEL B/C Ratio 8 6 - 25 07/03 [facility] ENDOCRINOL S Preg Negative Negative 07/03 OGY *NA* /2013 [facility] (07/03/14 11:00 AM) HEMATOLOGY Eosinophils 3.7 0.0 - 4.0 07/03 /2013 [facility] HEMATOLOGY Lymphocytes 1.7 1.0 - 5.5 07/03 MH # /2014 [facility] HEMATOLOGY Segs-Bands # 2.4 1.5 - 8.1 07/03 [facility] HEMATOLOGY Basophils 0.7 0.0 - 1.0 07/03 /2013 [facility] HEMATOLOGY Eosinophils 0.2 0.0 - 0.5 07/03 MH # /2014 [facility] HEMATOLOGY Monocytes # 0.4 0.0 - 0.8 07/03 [facility] HEMATOLOGY Monocytes 8.4 2.0 - 12.0 07/03 /2013 [facility] HEMATOLOGY Lymphocytes 35.9 20.0 - 07/03 MH 40.0 /2013 [facility] HEMATOLOGY Plt Morph Normal 07/03 MH (07/03/14 11:00 AM) [facility] HEMATOLOGY Segs 51.3 45.0 - 07/03 MH 75.0 [facility] HEMATOLOGY RBC Morph Normal 07/03 MH (07/03/14 11:00 AM) [facility] RBC 4.74 4.20 - 07/03 MH 5.40 /2013 [facility] HEMATOLOGY WBC 4.7 3.7 - 10.4 07/03 [facility] HEMATOLOGY Platelet 160 133 - 450 07/03 [facility] HEMATOLOGY MPV 8.9 7.4 - 10.4 07/[address] [facility] MCHC 32.2 32.0 - 07/03 MH 36.0 [facility] HEMATOLOGY RDW 27.3 11.5 - 07/[address] [facility] Hgb 12.6 12.0 - 07/03 [address] [facility] Hct 39.3 36.0 - 07/03 MH 48.[address] [facility] MCH 26.7 27.0 - 07/03 MH 31.0 [facility] HEMATOLOGY MCV 82.9 80.0 - 07/03 98.0 [facility] CHEM PANEL Phosphorus 3.5 2.5 - 4.5 06/12 [facility] CHEM PANEL eGFR 110 06/12 <sup>3</sup>R esult [facility] Comment: The eGFR is calculated using the CKD-EPI formula. In most young, healthy individuals the eGFR will be >90 mL/min/1.73m2 . The eGFR declines with age. An eGFR of 60-89 may be normal in some populations, particularly the elderly, for whom the CKD-EPI formula has not been extensively validated. Use of the eGFR is not recommended in the following populations:& lt;br/>
I ndividuals with unstable creatinine concentration s, including patients and those with serious co-morbid conditions.<b r/>
Patie nts with extremes in muscle mass or diet.

The data above are obtained from the National Kidney Disease Education Program (NKDEP) which additionally recommends that when the eGFR is used in patients with extremes of body mass index for purposes of drug dosing, the eGFR should be multiplied by the estimated BMI. CHEM PANEL Chloride Lvl 109 95 - 109 06/12 [facility] CHEM PANEL Creatinine 0.7 0.5 - 1.4 08/ MH Lvl /2013 [facility] CHEM PANEL Sodium Lvl 137 135 - 145 06/12 [facility] CHEM PANEL Potassium 3.9 3.5 - 5.1 08/ MH Lvl [facility] CHEM PANEL Glucose Lvl 104 70 - 99 06/12 <sup>6</sup>I nterpretive [facility] Data: Adult reference range values reflect the clinical guidelines
of the [employer]. CHEM PANEL BUN 11 7 - 22 06/12 [facility] CHEM PANEL AST 16 0 - 37 06/12 [facility] CHEM PANEL ALT 24 0 - 65 06/12 [facility] CHEM PANEL Globulin 4.1 2.0 - 4.0 06/12 [facility] CHEM PANEL Bili Total 0.5 0.2 - 1.3 06/12 [facility] CHEM PANEL A/G Ratio 0.7 0.7 - 1.6 06/12 [facility] CHEM PANEL Alk Phos 136 39 - 136 06/12 [facility] CHEM PANEL Albumin Lvl 2.7 3.5 - 5.0 06/12 [facility] CHEM PANEL Total 6.8 6.4 - 8.4 06/12 [facility] CHEM PANEL B/C Ratio 16 6 - 25 06/12 [facility] CHEM PANEL AGAP 11.9 10.0 - 08/05 20.0 /2013 [facility] CHEM PANEL CO2 20 24 - 32 06/12 [facility] CHEM PANEL Calcium Lvl 8.7 8.5 - 10.5 06/12 [facility] CHEM PANEL Magnesium 1.9 1.8 - 2.4 08/05 MH Lvl /2013 [facility] HEMATOLOGY MCH 24.0 27.0 - 08/05 31.0 /2013 [facility] HEMATOLOGY MCV 75.6 81.0 - 08/05 99.0 /2014 [facility] HEMATOLOGY Hct 31.3 36.0 - 08/05 MH 48.0 /2014 [facility] HEMATOLOGY Hgb 9.9 12.0 - 08/05 MH 16.0 /2013 [facility] HEMATOLOGY RDW 20.2 11.5 - 08/05 MH 14.5 /2014 [facility] HEMATOLOGY MCHC 31.7 32.0 - 08/05 MH 36.0 /2013 [facility] HEMATOLOGY MPV 8.0 7.4 - 10.4 08/05 MH /2014 [facility] HEMATOLOGY Platelet 257 133 - 450 08/ [facility] HEMATOLOGY WBC 8.6 3.7 - 10.4 06/12 [facility] HEMATOLOGY RBC 4.15 4.20 - 08 5.40 /2013 [facility] HEMATOLOGY Microcyte 1+ None Seen 06/12 *ABN* /2013 [facility] (06/12/14 5:54 AM) HEMATOLOGY Basophils # 0.1 0.0 - 0.2 06/12 [facility] HEMATOLOGY Eosinophils 0.5 0.0 - 0.5 / MH # /2013 [facility] HEMATOLOGY Monocytes # 0.8 0.0 - 0.8 06/12 [facility] HEMATOLOGY Lymphocytes 1.5 1.0 - 5.5 06/12 # /2013 [facility] HEMATOLOGY Segs-Bands # 5.7 1.5 - 8.1 06/12 [facility] HEMATOLOGY Basophils 0.7 0.0 - 1.0 06/12 [facility] HEMATOLOGY Eosinophils 5.5 0.0 - 4.0 06/12 [facility] HEMATOLOGY Monocytes 9.0 2.0 - 12.0 06/12 [facility] HEMATOLOGY Lymphocytes 18.0 20.0 - 08 40.0 /2013 [facility] HEMATOLOGY Segs 66.8 45.0 - 08 75.0 /2014 [facility] CHEM PANEL Magnesium 2.3 1.8 - 2.4 06/11 Lvl /2013 [facility] CHEM PANEL Phosphorus 3.6 2.5 - 4.5 06/11 [facility] ELECTROLYT AGAP 12.0 10.0 - 08 ES 20.0 /2013 [facility] ELECTROLYT B/C Ratio 14 6 - 25 06/11 ES [facility] ELECTROLYT A/G Ratio 0.6 0.7 - 1.6 06/11 ES [facility] ELECTROLYT Globulin 4.1 2.0 - 4.0 06/11 ES [facility] ELECTROLYT eGFR 110 06/11 <sup>4</sup>R ES esult [facility] Comment: The eGFR is calculated using the CKD-EPI formula. In most young, healthy individuals the eGFR will be >90 mL/min/1.73m2 . The eGFR declines with age. An eGFR of 60-89 may be normal in some populations, particularly the elderly, for whom the CKD-EPI formula has not been extensively validated. Use of the eGFR is not recommended in the following populations:& lt;br/>
I ndividuals with unstable creatinine concentration s, including patients and those with serious co-morbid conditions.<b r/>
Patie nts with extremes in muscle mass or diet.

The data above are obtained from the National Kidney Disease Education Program (NKDEP) which additionally recommends that when the eGFR is used in patients with extremes of body mass index for purposes of drug dosing, the eGFR should be multiplied by the estimated BMI. ELECTROLYT Bili Total 0.3 0.2 - 1.3 06/11 MH ES [facility] ELECTROLYT Total 6.6 6.4 - 8.4 06/11 ES Protein [facility] ELECTROLYT Albumin Lvl 2.5 3.5 - 5.0 06/11 ES [facility] ELECTROLYT AST 21 0 - 37 06/11 ES [facility] ELECTROLYT Alk Phos 142 39 - 136 06/11 ES [facility] ELECTROLYT ALT 29 0 - 65 06/11 ES [facility] ELECTROLYT BUN 10 7 - 22 06/11 ES [facility] ELECTROLYT Glucose Lvl 109 70 - 99 06/11 <sup>7</sup>I MH ES nterpretive [facility] Data: Adult reference range values reflect the clinical guidelines
of the [employer]. ELECTROLYT Sodium Lvl 139 135 - 145 06/11 MH ES [facility] ELECTROLYT Potassium 4.0 3.5 - 5.1 06/11 ES Lvl [facility] ELECTROLYT Calcium Lvl 8.3 8.5 - 10.5 06/11 MH ES [facility] ELECTROLYT Creatinine 0.7 0.5 - 1.4 06/11 MH ES Lvl [facility] ELECTROLYT Chloride Lvl 110 95 - 109 06/11 MH ES [facility] ELECTROLYT CO2 21 24 - 32 06/11 ES [facility] HEMATOLOGY Lymphocytes 17.8 20.0 - 08 MH 40.0 /2014 [facility] HEMATOLOGY Monocytes 7.3 2.0 - 12.0 06/11 MH [facility] HEMATOLOGY Lymphocytes 2.0 1.0 - 5.5 06/11 MH # /2013 [facility] HEMATOLOGY Segs 69.8 45.0 - 08 MH 75.0 /2014 [facility] HEMATOLOGY Basophils 0.3 0.0 - 1.0 06/11 /2013 [facility] HEMATOLOGY Eosinophils 4.8 0.0 - 4.0 06/11 [facility] HEMATOLOGY Segs-Bands # 7.7 1.5 - 8.1 06/[address] [facility] Microcyte 1+ None Seen 06/11 *ABN* /2013 [facility] (06/11/14 7:45 AM) HEMATOLOGY Eosinophils 0.5 0.0 - 0.5 06/11 MH # /2014 [facility] HEMATOLOGY Monocytes # 0.8 0.0 - 0.8 06/11 [facility] HEMATOLOGY WBC 11.0 3.7 - 10.4 06/11 [facility] HEMATOLOGY RBC 4.00 4.20 - 06/11 5.40 /[address] [facility] MPV 7.6 7.4 - 10.4 06/[address] [facility] MCV 75.1 81.0 - 06/11 99.0 /[address] [facility] RDW 20.0 11.5 - 06/11 14.5 /[address] [facility] Platelet 265 133 - 450 06/11 /[address] [facility] Hct 30.1 36.0 - 06/11 48.0 /[address] [facility] Hgb 9.6 12.0 - 06/[address] [facility] MCH 23.9 27.0 - 06/[address] [facility] MCHC 31.8 32.0 - 06/11 36.0 /2013 [facility] CHEM PANEL Phosphorus 4.1 2.5 - 4.5 06/10 [facility] CHEM PANEL Magnesium 2.2 1.8 - 2.4 06/10 Lvl /2013 [facility] CHEM PANEL eGFR 133 06/10 <sup>5</sup>R esult [facility] Comment: The eGFR is calculated using the CKD-EPI formula. In most young, healthy individuals the eGFR will be >90 mL/min/1.73m2 . The eGFR declines with age. An eGFR of 60-89 may be normal in some populations, particularly the elderly, for whom the CKD-EPI formula has not been extensively validated. Use of the eGFR is not recommended in the following populations:& lt;br/>
I ndividuals with unstable creatinine concentration s, including patients and those with serious co-morbid conditions.<b r/>
Patie nts with extremes in muscle mass or diet.

The data above are obtained from the National Kidney Disease Education Program (NKDEP) which additionally recommends that when the eGFR is used in patients with extremes of body mass index for purposes of drug dosing, the eGFR should be multiplied by the estimated BMI. CHEM PANEL B/C Ratio 20 6 - 25 06/10 MH [facility] CHEM PANEL Albumin Lvl 2.5 3.5 - 5.0 06/10 MH [facility] CHEM PANEL Total 6.2 6.4 - 8.4 / MH Protein [facility] CHEM PANEL Calcium Lvl 8.3 8.5 - 10.5 06/10 [facility] CHEM PANEL AGAP 16.4 10.0 - 08 MH 20.0 /2013 [facility] CHEM PANEL CO2 15 24 - 32 06/10 [facility] CHEM PANEL Chloride Lvl 111 95 - 109 06/10 [facility] CHEM PANEL AST 32 0 - 37 06/10 [facility] CHEM PANEL Bili Total 0.5 0.2 - 1.3 06/10 [facility] CHEM PANEL Globulin 3.7 2.0 - 4.0 06/10 [facility] CHEM PANEL ALT 28 0 - 65 06/10 [facility] CHEM PANEL A/G Ratio 0.7 0.7 - 1.6 06/10 [facility] CHEM PANEL Alk Phos 131 39 - 136 06/10 [facility] CHEM PANEL Glucose Lvl 89 70 - 99 06/10 <sup>8</sup>I nterpretive [facility] Data: Adult reference range values reflect the clinical guidelines
of the [employer]. CHEM PANEL Potassium 4.4 3.5 - 5.1 06/10 MH Lvl [facility] CHEM PANEL Creatinine 0.4 0.5 - 1.4 06/10 MH Lvl [facility] CHEM PANEL BUN 8 7 - 22 06/10 [facility] CHEM PANEL Sodium Lvl 138 135 - 145 06/10 [facility] HEMATOLOGY WBC 9.0 3.7 - 10.4 06/10 [facility] HEMATOLOGY Hct 34.7 36.0 - 08 MH 48.0 /2013 [facility] HEMATOLOGY RBC 4.56 4.20 - 08 MH 5.40 /2013 [facility] HEMATOLOGY Hgb 10.9 12.0 - 08 MH 16.0 /2013 [facility] HEMATOLOGY MPV 8.1 7.4 - 10.4 06/10 /2013 [facility] HEMATOLOGY MCH 24.0 27.0 - 08 MH 31.0 /[address] [facility] MCHC 31.5 32.0 - 06/10 MH 36.0 /2013 [facility] HEMATOLOGY MCV 76.1 81.0 - 06/10 MH 99.0 /2013 [facility] HEMATOLOGY RDW 20.6 11.5 - 06/10 MH 14.5 /2013 [facility] HEMATOLOGY Platelet 224 133 - 450 06/10 [facility] HEMATOLOGY Retic Auto 3.0 0.5 - 1.5 06/10 /2013 [facility] HEMATOLOGY Eosinophils 0.5 0.0 - 0.5 06/10 MH # /2013 [facility] HEMATOLOGY Microcyte 1+ None Seen 06/10 MH *ABN* /2013 [facility] (06/10/14 6:30 AM) HEMATOLOGY Eosinophils 5.6 0.0 - 4.0 06/10 /2013 [facility] HEMATOLOGY Segs-Bands # 5.8 1.5 - 8.1 06/10 [facility] HEMATOLOGY Monocytes 10.2 2.0 - 12.0 06/10 [facility] HEMATOLOGY Lymphocytes 19.0 20.0 - 06/10 MH 40.0 /2013 [facility] HEMATOLOGY Lymphocytes 1.7 1.0 - 5.5 06/10 MH # /2013 [facility] HEMATOLOGY Monocytes # 0.9 0.0 - 0.8 06/10 [facility] HEMATOLOGY Basophils 0.5 0.0 - 1.0 06/10 [facility] HEMATOLOGY Segs 64.7 45.0 - 06/10 MH 75.0 /2013 [facility] HEMATOLOGY Retic Auto 2.3 0.5 - 1.5 06/09 [facility] HEMATOLOGY D-Dimer 4.47 08 <sup>12</sup> Interpretive [facility] Data: In DIC, quantitative D-Dimer is generally greater than
0 .66 ug/mL FEU. Values of quantitative D-Dimer less than
0.40 ug/mL FEU have been reported to be associated with a low
proba bility of deep vein thrombosis/pu lmonary embolism.<br/ >This test alone should not be used to rule out DVT/PE. HEMATOLOGY Retic Auto 2.2 0.5 - 1.5 06/08 /2013 [facility] BLOOD BANK Hemolysis Ck None 06/07 RESULTS (06/07/14 3:05 PM) /2013 [facility] HEMATOLOGY PTT 46.7 22.9 - 06/07 <sup>13</sup> 35.8 Interpretive [facility] Data: Heparin Therapeutic Range: 57 - 92 Seconds HEMATOLOGY INR 1.23 0.85 - 06/07 <sup>9</sup>I 1. nterpretive [facility] Data: RECOMMENDED RANGES FOR PROTIME INR:
2.0-3.0 for most medical and surgical thromboemboli c states.
2.5-3.5 for artificial heart valves and recurrent embolism.<br/ >
INR SHOULD BE USED ONLY FOR PATIENTS ON STABLE ANTICOAGULANT THERAPY. HEMATOLOGY PT 15.4 12.0 - 06/07 14. [facility] ANEMIA Ferritin Lvl 56 5 - 204 06/06 STUDY /2013 [facility] ANEMIA UIBC 225 110 - 370 06/06 STUDY /2013 [facility] ANEMIA TIBC 236 228 - 428 06/06 STUDY /2013 [facility] ANEMIA Iron 11 30 - 160 06/06 STUDY /2013 [facility] ANEMIA % Satur Fe 5 12 - 57 06/06 STUDY /2013 [facility] BLOOD BANK Antibody Negative 06/06 RESULTS Scrn (06/06/14 9:14 AM) /2013 [facility] BLOOD BANK ABO/Rh O NEG 06/06 RESULTS /2013 [facility] CHEM PANEL LDH 268 98 - 192 06/06 /2013 [facility] BLOOD BANK RBC product Product available 1 06/06 <sup>1</sup>R RESULTS (06/06/14 6:29 AM) /2013 esult [facility] Comment: 06/06/2014 11:27 [id number]
CALLED Joy 06/06/2014 11:27 SB. CHEM PANEL Bili Direct 0.2 0.0 - 0.3 06/06 [facility] HEMATOLOGY Basophils # 0.1 0.0 - 0.2 06/06 [facility] HEMATOLOGY PT 17.8 12.0 - 06/06 14. [facility] HEMATOLOGY INR 1.49 0.85 - 06/06 <sup>10</sup> 1.17 Interpretive [facility] Data: RECOMMENDED RANGES FOR PROTIME INR:
2.0-3.0 for most medical and surgical thromboemboli c states.
2.5-3.5 for artificial heart valves and recurrent embolism.<br/ >
INR SHOULD BE USED ONLY FOR PATIENTS ON STABLE ANTICOAGULANT THERAPY. HEMATOLOGY PTT 39.4 22.9 - 06/06 <sup>14</sup> 35.8 /2013 Interpretive [facility] Data: Heparin Therapeutic Range: 57 - 92 Seconds HEMATOLOGY Basophils # 0.1 0.0 - 0.2 06/05 /2013 [facility] BLOOD BANK RBC product Product available 2 06/05 <sup>2</sup>R RESULTS (06/05/14 6:30 AM) /2013 esult [facility] Comment: 06/05/2014 06:52 [id number]
notified carolann weldon 06/05/2014 06:52/stacey HEMATOLOGY PTT 32.8 22.9 - 06/05 <sup>15</sup> 35.8 /2013 Interpretive [facility] Data: Heparin Therapeutic Range: 57 - 92 Seconds HEMATOLOGY INR 1.32 0.85 - 06/05 <sup>11</sup> 1.17 /2013 Interpretive [facility] Data: RECOMMENDED RANGES FOR PROTIME INR:
2.0-3.0 for most medical and surgical thromboemboli c states.
2.5-3.5 for artificial heart valves and recurrent embolism.<br/ >
INR SHOULD BE USED ONLY FOR PATIENTS ON STABLE ANTICOAGULANT THERAPY. HEMATOLOGY PT 16.2 12.0 - 06/05 14.7 /2013 [facility] BACTERIAL MRSA by PCR Negative 16 06/04 <sup>16</sup> - SEROLOGY (06/04/14 5:10 PM) Interpretive [facility] Data: Interpretive Data: The [employer] LightCycler MRSA assay is a qualitative test for the direct detection of nasal colonization with methicillin-r esistant Staphylococcu s aureus (MRSA) to aid in the prevention and control of MRSA infections in healthcare settings. A positive result does not indicate an infection or require treatment. A negative result does not exclude colonization or infection.

The polymerase chain reaction (PCR) assay detects a proprietary sequence indicative of the integration of the SCCmec cassette into the Staphylococcu s aureus chromosome, indicating the presence of MRSA DNA. The assay utilizes FDA cleared IVD reagents. Performance characteristi cs have been verified by the Molecular Diagnostic Laboratory within the [facility]. The Molecular Diagnostic Laboratory is authorized under the Clinical Laboratory Improvement Amendment of 1988 (CLIA-88) to perform high complexity testing. BLOOD BANK Platelet Product available 05/31 MH RESULTS product (05/31/14 12:30 PM) [facility] BLOOD BANK FFP product Product available 05/31 MH RESULTS (05/31/14 12:30 PM) [facility] BLOOD BANK Antibody Negative 05/31 RESULTS Scrn (05/31/14 12:30 PM) [facility] BLOOD BANK ABO/Rh O NEG 05/31 RESULTS /2013 [facility] BLOOD BANK RBC product Product available 05/31 RESULTS (05/31/14 12:30 PM) [facility] URINE AND UA <=1.0 0.1 - 1.0 05/31 STOOL Urobilinogen mg/dL [facility] URINE AND UA Sq Epi Many /LPF Few /LPF 05/31 STOOL [facility] URINE AND UA WBC 8 0 - 5 05/31 STOOL [facility] URINE AND UA RBC 3 0 - 2 05/31 STOOL [facility] URINE AND UA Nitrite Negative Negative 05/31 STOOL (05/31/14 12:05 PM) [facility] URINE AND UA Leuk Est Small Negative 05/31 STOOL *ABN* /2013 [facility] (05/31/14 12:05 PM) URINE AND UA Blood Negative Negative 05/31 STOOL (05/31/14 12:05 PM) [facility] URINE AND UA Mucus Few /LPF None Seen 05/31 STOOL /LPF /2013 [facility] URINE AND UA Protein Negative Negative 05/31 STOOL mg/dL mg/dL [facility] URINE AND UA pH 5.0 5.0 - 8.0 05/31 STOOL [facility] URINE AND UA Turbidity Marked Clear 05/31 STOOL *ABN* /2013 [facility] (05/31/14 12:05 PM) URINE AND UA Spec Grav 1.024 <=1.030 05/31 STOOL [facility] URINE AND UA Bili Negative Negative 05/31 STOOL *NA* /2013 [facility] (05/31/14 12:05 PM) URINE AND UA Glucose Negative Negative 05/31 STOOL mg/dL mg/dL [facility] URINE AND UA Ketones Negative Negative 05/31 STOOL mg/dL mg/dL [facility] URINE AND UA Color Yellow Yellow 05/31 STOOL *NA* /2013 [facility] (05/31/14 12:05 PM) Chemistry HGBA1C 4.7 - 5.6 03/26 Group Chemistry CHOLESTEROL 215 - 199 03/26 Group Chemistry TRIGLYCERIDE 182 - 149 03/26 Group Chemistry HDL 42 >=61 03/26 Group Chemistry LDL 137 - 99 03/26 Group Chemistry SODIUM 139 MEQ/L 135 - 145 03/26 Group Chemistry POTASSIUM 4.1 MEQ/L 3.5 - 5.1 03/26 Group Chemistry CREATININE 0.8 0.5 - 1.4 03/26 Group Chemistry BUN 11 7 - 22 03/26 Group Chemistry BUN/CREAT 14 6 - 25 03/26 Group Chemistry ALBUMIN 3.7 3.5 - 5.0 03/26 Group Chemistry CALCIUM 8.9 8.5 - 10.5 03/26 Group Chemistry SGPT (ALT) 41 0 - 65 03/26 Group Chemistry SGOT (AST) 23 0 - 37 03/26 Group Chemistry ALK PHOS 167 39 - 136 03/26 Group Chemistry FERRITIN 10 5 - 204 03/26 Group Chemistry IRON 25 30 - 160 03/26 Group Chemistry TIBC 431 228 - 428 03/26 Group Chemistry TSH 2.050 0.360 - 03/26 3.74 Group Chemistry HGBA1C 4.7 - 5.6 03/26 Group Chemistry CHOLESTEROL 215 - 199 03/26 Group Chemistry TRIGLYCERIDE 182 - 149 03/26 Group Chemistry HDL 42 >=61 03/26 Group Chemistry LDL 137 - 99 03/26 Group Chemistry SODIUM 139 MEQ/L 135 - 145 03/26 Group Chemistry POTASSIUM 4.1 MEQ/L 3.5 - 5.1 03/26 Group Chemistry CREATININE 0.8 0.5 - 1.4 03/26 Group Chemistry BUN 11 7 - 22 03/26 Group Chemistry BUN/CREAT 14 6 - 25 03/26 Group Chemistry ALBUMIN 3.7 3.5 - 5.0 03/26 Group Chemistry CALCIUM 8.9 8.5 - 10.5 03/26 Group Chemistry SGPT (ALT) 41 0 - 65 03/26 Group Chemistry HGBA1C 4.7 - 5.6 03/26 Group Chemistry CHOLESTEROL 215 - 199 03/26 Group Chemistry TRIGLYCERIDE 182 - 149 03/26 Group Chemistry HDL 42 >=61 03/26 Group Chemistry HGBA1C 4.7 - 5.6 03/26 Group Chemistry CHOLESTEROL 215 - 199 03/26 Group Chemistry TRIGLYCERIDE 182 - 149 03/26 Group Chemistry HGBA1C 4.7 - 5.6 03/26 Group Chemistry CHOLESTEROL 215 - 199 03/26 Group Chemistry TRIGLYCERIDE 182 - 149 03/26 Group Chemistry HDL 42 >=61 03/26 Group Chemistry LDL 137 - 99 03/26 Group Chemistry SODIUM 139 MEQ/L 135 - 145 03/26 Group Chemistry POTASSIUM 4.1 MEQ/L 3.5 - 5.1 03/26 Group Chemistry CREATININE 0.8 0.5 - 1.4 03/26 Group Chemistry BUN 11 7 - 22 03/26 Group Chemistry BUN/CREAT 14 6 - 25 03/26 Group Chemistry ALBUMIN 3.7 3.5 - 5.0 03/26 Group Chemistry CALCIUM 8.9 8.5 - 10.5 03/26 Group Chemistry SGPT (ALT) 41 0 - 65 03/26 Group Chemistry SGOT (AST) 23 0 - 37 03/26 Group Chemistry ALK PHOS 167 39 - 136 03/26 Group Chemistry FERRITIN 10 5 - 204 03/26 Group Chemistry IRON 25 30 - 160 03/26 Group Chemistry TIBC 431 228 - 428 03/26 Group Chemistry TSH 2.050 0.360 - 03/26 Medical 3.740 /2013 [facility] Hematology HGB 9.8 12.0 - 03/26 Medical . Group Hematology HCT 32.7 36.0 - 03/26 Medical . Group Hematology PLATELETS 268 K/CMM 133 - 450 03/26 Group Hematology HGB 9.8 12.0 - 03/26 Medical . Group Hematology HCT 32.7 36.0 - 03/26 Medical . Group Hematology PLATELETS 268 K/CMM 133 - 450 03/26 Group Hematology ESR 39 0 - 20 03/26 Group Serology GIACOMO Positive 03/26 Group Serology GIACOMO Positive 03/26 Group Serology GIACOMO Positive 03/26 Group Serology GIACOMO Positive 03/26 Group Serology GIACOMO Positive 03/26 Group Urinalysis UA COLOR Yellow 03/26 Group Urinalysis BACTERIA URN Occasional 03/26 Group Urinalysis UA COLOR Yellow 03/26 Group Urinalysis BACTERIA URN Occasional 03/26 Group Urinalysis UA COLOR Yellow 03/26 Group Urinalysis BACTERIA URN Occasional 03/26 Group Urinalysis UA COLOR Yellow 03/26 Group Urinalysis BACTERIA URN Occasional 03/26 Group Pathology Reports No Data Provided for This Section Diagnostic Reports Report Value Date Source Abdomen wo contrast Abdomen wo contrast MRI 05/17/2019 [facility] MRI CLINICAL INDICATION: - R74.0 Nonspecific elevation of levels of transaminase and lactic acid dehydrogenase [LDH];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 Coronal T2, axial T2 and oblique axial T2 images are also available for review. No IV contrast was administered. FINDINGS: BILIARY SYSTEM: There is no intrahepatic biliary ductal dilatation. There is mild to moderate dilation of common bile duct with maximum caliber at 11 mm. There is normal distal tapering of the common bi le duct. No intraluminal filling defects to suggest choledocholithiasis. LIVER AND GALLBLADDER: There is normal liver contour and morphology with normal signal intensity. Status post cholecystectomy. PANCREAS AND PANCREATIC DUCT: The pancreas demonstrates normal morphology. Pancreatic duct is normal in caliber. UPPER ABDOMEN: The spleen and both adrenals demonstrate normal morphology. Bilateral renal cysts. There is no significant retroperitoneal lymphadenopathy. No ascites. IMPRESSION: Mild to moderate dilation of CBD likely related to postcholecystectomy change. No intrahepatic bile duct dilation. No MR evidence for choledocholithiasis. Bilateral renal cysts. SL: [id number] Sinus paranasal PROCEDURE: Paranasal sinus series radiographs. Total 4 views and 4 images. 11/26/2018 [facility] series DX INDICATION: Sinus drainage with possible pus COMPARISON: None. FINDINGS: The paranasal sinuses appear clear without evidence for significant mucosal thickening, air-fluid levels. Mastoid air cells are clear. No significant nasal septal deviation. Bony structures appear intact. IMPRESSION: Negative study. SL: [id number] Chest/Abdomen/Pelvis CT THORAX/ABDOMEN/PELVIS WITH IV CONTRAST 11/26/2018 [facility] w IV contrast CT HISTORY: History of Maggi en Y; dysphagia; esophagitis; 43- year-old female reports history of right upper arm mass, vomiting, difficulty swallowing TECHNIQUE: Multiple contiguous axial images of the chest and abdomen and pelvis were performed. Coronal and sagittal reformatted images were obtained. IV CONTRAST: 75 mL Omnipaque. GI CONTRAST: Yes. CT imaging performed at this location utilizes radiation dose optimization techniques which include one or more of the following: -Automated exposure control -Adjustment of the mA and/or kV according to patient size -Use of iterative reconstruction technique CT Radiation Dose DLP 1324.03 mGy-cm COMPARISON: CT right humerus dated 11/26/2018, chest radiography dated 2018, CT abdomen/pelvis dated 03/25/2018, and CT thorax/abdomen/pelvis dated CHEST: LUNGS AND PLEURA: The lungs are clear. No pleural effusion or pneumothorax. MEDIASTINUM: Thoracic esophagus is mildly diffusely distended with oral contrast and food material. Changes of gastric bypass are again noted with unchanged small hiatal hernia which includes the gastro jejunal anastomosis. There is mild concentric wall thickening of the distalmost esophagus suspicious for esophagitis. No paraesophageal lymphadenopathy. No mediastinal mass, lymphadenopathy, or fluid co llection. Heart size normal. No pericardial effusion. Right PICC line in place in expected positioning. BASE OF NECK, SOFT TISSUES AND BONES: Neck base soft tissues are normal. No supraclavicular or axillary lymphadenopathy. The osseous structures in the chest are normal. ABDOMEN AND PELVIS: LIVER, BILIARY, PANCREAS, SPLEEN, AND ADRENALS: The liver, spleen, pancreas, and adrenal glands are normal. Gallbladder not visualized, likely cholecystectomy. No biliary dilation. GENITOURINARY: Normal right kidney. Small benign cyst in the left kidney. No hydronephrosis. Normal urinary bladder. No abnormality the pelvic reproductive organs is evident. STOMACH AND BOWEL AND APPENDIX: No oral contrast extravasation or fluid collection at the gastrojejunal anastomosis to suggest anastomotic leak. Stomach is otherwise normal. Normal duodenum. No small rich[place] wel obstruction. No evidence of small bowel inflammation. Evaluation of colon limited by dense contrast within the colon. No colonic abnormality is seen. Appendix not visualized. No CT evidence of acute appendicitis. OTHER SOFT TISSUES, VESSELS, AND BONES: No ascites, lymphadenopathy, or pneumoperitoneum. Vascular structures normal. No acute osseous abnormality or aggressive osseous lesion. IMPRESSION: 1. Mild diffuse distention of the thoracic esophagus with oral contrast and food material suggesting esophageal dysmotility and/or reflux. 2. Changes of gastric bypass with small hiatal hernia which contains the gastrojejunal anastomosis. 3. Mild concentric wall thickening of the distalmost esophagus suspicious for esophagitis. 4. Right PICC line in place, probable cholecystectomy, limited evaluation of the colon due to presence of dense contrast. SL: PHYLLIS Humerus w contrast CT Exam: Right Humerus w contrast CT 11/26/2018 [facility] Clinical indication: - right upper arm mass Comparison: R shoulder radiographs 07/17/2014 TECHNIQUE: Volumetric CT acquisition of the right humerus following the administration of intravenous contrast. Axial, sagittal and coronal reconstructions are performed. 75 mL Omnipaque administered intravenously. CT imaging performed at this location utilizes radiation dose optimization techniques which include one or more of the following: -Automated exposure control -Adjustment of the mA and/or kV according to patient size -Use of iterative reconstruction technique DLP: 1373.38 mGy-cm FINDINGS: The right humerus appears intact without acute fracture or suspicious osseous lesion. The glenohumeral joint and acromioclavicular joint are normally aligned. The elbow appears normally aligned. Localized subcutaneous fat stranding is present along the right lower lateral shoulder. No discrete mass or focal fluid collection. No subcutaneous gas. Right upper extremity PICC is in place and partially visualized. IMPRESSION: 1. Localized subcutaneous fat stranding along the right lower lateral shoulder without discrete mass or focal fluid collection. Etiology may be infectious/inflammatory or posttraumatic and clinical correlation is advised. 2. No acute osseous abnormality. 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 COMPARISON: Abdominal films 11/25/2018, 11/24/2018. Oral contrast: 280 mL Omnipaque 300 by mouth FINDINGS: Abdominal x-ray demonstrates decreased contrast in the colon relative to November 24. 15 minute images demonstrates prompt opacification of the proximal, mid and distal small bowel. 30 minute image demon strates contrast progression to the transverse colon. IMPRESSION: 1. Water-soluble contrast passage to the transverse colon at 30 minutes. SL: [id number] Abdomen AP DX Patient Name: SABINE DEXTER : 1975 11/25/2018 [facility] Age: 43 years, Female MR: [id number] Study: Abdomen AP DX 11/25/2018 3:00 CREDIT REVIEW ANALYST Indication: - check for barium/ abdominal pain. Comparison: Abdomen one view 11/24/2018 Findings: Lines/tubes: None. Bowel: No air-fluid levels. No pneumoperitoneum. Retained oral contrast is present in the colon. Moderate amount of retained feces and air are noted in the colon and rectum. Calcifications: No calcifications project over the renal shadows, expected course of the ureters bilaterally, and urinary bladder. Soft tissues: Normal. Bones: No acute osseous abnormality. Degenerative changes of the lumbar spine. IMPRESSION: No acute radiographic abnormality. Retained oral contrast is present in the colon. SL: [id number] Chest 1 v for Clinical Indication: Line Placement - Chest 1 view for line placement; 11/24/2018 [facility] Placement DX Comparison: Single view chest radiograph from earlier on the same date. FINDINGS: A portable AP single view radiograph provided for review. The exam demonstrates normal lung volumes without interstitial or airspace opacities, pleural effusions or pneumothorax. There has been interval placement of a right-sided PICC line, with its distal tip terminating in the lower SVC. The heart size and pulmonary vasculature are normal. The trachea is midline. Contrast is partially visualized projecting over the splenic flexure of the colon. There are no acute osseous abnormalities noted. IMPRESSION: 1. Interval placement of a right-sided PICC line, appearing appropriately positioned by radiographic standards. 2. No chest radiographic evidence of acute cardiopulmonary disease. : [id number] Abdomen AP DX Abdomen one view: There is barium in the colon from the recent esophagram. The gas pattern is normal. There is no visible pneumoperitoneum. There are no significant calcifications. Surgical clips in the 11/24/2018 [facility] hiatal region. There are no significant osseous abnormalities. There is no significant change compared to 10/03/2016. IMPRESSION: No significant radiographic abnormalities of the abdomen. [id number] Chest 1view DX Portable chest: The cardiomediastinal silhouette and pulmonary vasculature are within normal limits. The lungs and pleural spaces are clear. There are no acute osseous abnormalities. There is no significant change compared to 09/25/2016. 11/24/2018 [facility] IMPRESSION: No acute radiographic abnormality in the chest. 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 COMPARISON: 04/20/2018 Fluoroscopy time: 3.2MIN Reference Air Kerma: 160.02 mGy TECHNIQUE: Thin barium was utilized for recumbent prone oblique and LPO images. Thick barium was utilized for upright imaging of the esophagus and pharynx. Granola mixed with barium was given to evaluate motility with solids. FINDINGS: There is no delay in passage of the barium bolus from the pharynx into the esophagus. The cricopharyngeus relaxes normally. There is no evidence for cricopharyngeal bar or Zenker's diverticulum. Prone and LPO images of the esophagus reveal moderate delay in passage with reflux to the lower esophagus. There is normal transit to the small bowel. Upright images with thick barium reveals mild to moderate dysmotility and delay with reflux. There is normal transit to the small bowel. Subsequently 2 separate swallows of a small piece of granola and barium were fluoroscopically followed through the length of the esophagus. There is moderate dysmotility and delay in contrast passage. IMPRESSION: 1. Mild to moderate dysmotility and delay with reflux greatest in the prone and LPO positions. 2. Normal transit to the small bowel in this patient post Maggi-en-Y. [id number] Barium Swallow w Patient Name: SABINE DEXTER 04/20/2018 [facility] Esophagus Function DX : 1975; Age: 42 years y/o Female MR: [id number] Study: Barium Swallow w Esophagus Function DX 04/20/2018 1:53 PM CDT Clinical Indication: - epigastric pain COMPARISON: None FLUOROSCOPY TIME: 2.6 minutes TECHNIQUE: Thin barium was utilized for recumbent prone oblique and LPO images. Thick barium was utilized for upright imaging of the esophagus and pharynx. Marcos cracker mixed with barium was given to evaluate motility with solids. FINDINGS: There is no delay in passage of the barium bolus from the pharynx into the esophagus. The cricopharyngeus relaxes normally. There is no evidence for cricopharyngeal bar or Zenker's diverticulum. Prone and LPO images of the esophagus reveal Maggi-en-Y bypass surgery. Normal esophageal caliber with mild dysmotility and delay in contrast passage to the small intestine. Small degree of reflux. Upright images with thick barium reveals mild delay in contrast passage to the small intestine. Subsequently 2 separate swallows of a small piece of marcos cracker and barium were fluoroscopically followed through the length of the esophagus. There is mild dysmotility with reflux. IMPRESSION: 1. Status post Maggi-en-Y with mild dysmotility and delay in contrast passage to the stomach. 2. Small degree of reflux. [id number] Abdomen/Pelvis w/wo CT SCAN OF THE ABDOMEN [<AND PELVIS>] without and WITH CONTRAST. 03/25/2018 [facility] IV contrast CT HX: Clinical Indication: K22.4 Dyskinesia of esophagus; R10.13 Epigastric pain;R74.0 Nonspecific elevation of levels of transaminase and lactic acid dehydrogenase [LDH] - upper abdomen pain and 24 hour nausea; . Comparison: Outside CT abdomen pelvis of 09/22/2016. Technique: Helical CT images were obtained from the domes the diaphragms to the symphysis pubis with p.o. contrast and before and after the administration of oral and intravenous contrast. ABDOMEN AND PELVIS: The lung bases are clear. The heart is normal in size. Small hiatal hernia and postoperative gastric bypass. Enteric contrast is present within the distal esophagus and GE junction l ikely reflecting esophageal dysmotility. Postoperative cholecystectomy. Dilated common bile duct measuring about 9.0 mm is unchanged likely postsurgical. The liver, spleen, pancreas, and adrenals are st able in appearance. Stable lateral interpolar left renal cyst is present. The kidneys show good, symmetrical enhancement without hydronephrosis. No renal or ureteral calculi or hydronephrosis. No significant perinephric stranding detected. The bladder is nondistended. Grossly normal uterus and probably small left ovarian cyst. IMPRESSION: 1. Small hiatal hernia and postoperative gastric bypass. Enteric contrast is present within the distal esophagus and GE junction likely reflecting esophageal dysmotility. 2. Postoperative cholecystectomy. Dilated common bile duct measuring about 9.0 mm is unchanged likely postsurgical. 3. Grossly normal uterus and probably small left ovarian cyst. SL: [id number] Hip w/wo contrast MRI Patient Name: SABINE DEXTER 10/04/2016 [facility] : 1975; Age: 40 years y/o Female MR: [id number] Study: MRI right hip dated 10/04/2016 with without contrast. Clinical Indication: Right hip pain, chronic; Comparison: None Coronal T1 and axial STIR images performed of the pelvis with coronal proton- density FSE fat-sat, axial T1, axial proton-density FSE fat-sat, sagittal proton density FSE fat-sat, coronal T1 fat-sat post contrast and axial T1 fat-sat postcontrast images performed of the right hip. Increased signal within the right anterior superior labrum consistent with nondisplaced labral tear. There is increased signal within the right common tendon of the hamstrings at the insertion to the is chial tuberosity on T2-weighted images and postcontrast images. There is surrounding increased signal on T2-weighted images and enhancement about the right hamstring insertion site. Findings are consist ent with tendinopathy and/or partial tear of the common tendon of the right hamstring. No full-thickness tear is identified and no avulsion fracture seen off the right ischial tuberosity. Minimal free f luid is seen in the posterior pelvis. Views of the right hip are otherwise unremarkable. CONCLUSIONS: 1. Tendinopathy and/or partial tear of the common tendon of the right hamstrings at the insertion site of the ischial tuberosity. No full-thickness tear identified. 2. Nondisplaced labral tear of the right anterior superior labrum. 3. Minimal free fluid in the posterior pelvis. SL: [id number] Abdomen AP DX EXAM: XR ABDOMEN, 1 VIEW 10/03/2016 [facility] DATE: 10/03/2016 12:34 PM CREDIT REVIEW ANALYST INDICATION: Stent placement, urinary. COMPARISON: 09/24/2016. TECHNIQUE: AP supine radiograph of the abdomen. FINDINGS: The bowel gas pattern is non-obstructive. No pathologic dilatation of bowel loops. There is no pneumatosis or mass effect. The bladder is distended. There are no radiopaque densities noted. No acute os seous abnormality noted. There is been removal of a gastric stent. IMPRESSION: 1. Interval removal of a gastric stent. 2. Distention of the bladder. 3. Nonobstructive bowel gas pattern. SL: [id number] Hip 2/3 views uni DX Patient Name: SABINE DEXTER 10/03/2016 [facility] : 1975; Age: 40 years y/o Female MR: [id number] * RIGHT HIP, 2 views History: Injury, trauma to right hip. Technique: Frontal neutral and frog-leg images of the right hip were obtained. FINDINGS: There is no evidence of fracture, dislocation, or acute change. The joint space is well-maintained. There are no degenerative changes or other significant osseous abnormalities. IMPRESSION: 1. Negative right hip. SL: [id number] Chest 1view DX Study: Chest 1view DX 09/25/2016 [facility] Clinical Indication: Respiratory distress Comparison: Chest x-ray from 09/23/2016 FINDINGS: The cardiac silhouette is normal in size. The lungs are clear and without consolidation or congestion. No pleural effusion or pneumothorax is seen. The osseous structures are unremarkable. Right-sided PICC line is stable. IMPRESSION: No acute cardiopulmonary disease. SL: [id number] Abdomen AP DX Patient Name: SABINE DEXTER 09/24/2016 [facility] : 1975; Age: 40 years Female MR: [id number] Study: Abdomen AP DX 09/24/2016 3:00 AM CREDIT REVIEW ANALYST CLINICAL INDICATION: Distension COMPARISON: KUB on 09/23/2016. FINDINGS: Nonspecific bowel gas pattern without evidence of dilatation, pneumatosis, or pneumoperitoneum. No evidence of abnormal calcifications. No significant osseous abnormalities. Stable position of the metallic stent which projects over the stomach. IMPRESSION: Nonobstructive bowel gas pattern. No significant change since the KUB on . Stable position of the metallic stent projecting over the stomach. Chest 1view DX Clinical Indication: Tube placement/removal/reposition 2015 [facility] Comparison: September 10, 2016 FINDINGS: The frontal chest radiograph shows normal lung volumes without interstitial or airspace opacities, pleural effusions or pneumothorax. The cardiomediastinal contours are normal. The trachea is midline. There are no clinically significant osseous abnormalities noted. Right-sided PICC catheter tip remains in the superior vena cava. Previous metallic stent superimposed on the gastroesophageal junction is not visible on this examination. IMPRESSION: 1. No chest radiographic evidence of acute cardiopulmonary disease. 2. Prior metallic stent superimposed on the gastroesophageal junction is not clearly visible on the current examination. SL: 82 Abdomen AP DX Clinical Indication: Tube placement/removal/reposition 2015 [facility] Comparison: None FINDINGS: The AP supine view of the abdomen shows a non-obstructive bowel gas pattern. There is no abnormal dilatation of bowel loops. There is no pneumatosis or mass effect. There are no radiopaque densities noted. There are no clinically significant osseous abnormalities noted. Contrast is noted filling the bladder. The previous metallic stent that had been superimposed on the gastroesophageal junction on chest x-ray dated September 10, 2016 is now seen to be in the upper abdomen oriented transversely in the vicinity of the stomach. IMPRESSION: Previous metallic stent which had been present in the area of the gastroesophageal junction now appears to be located in the vicinity of the stomach. SL: 82 Chest 1view DX CHEST, ONE VIEW 09/10/2016 [facility] HISTORY: Central line placement. FINDINGS: Since the prior exam from earlier on 09/09/2016, no change is seen. The right PICC line remains in place and terminates in the SVC. Lungs are clear. No pleural effusion or pneumothorax. Stable mediastinum. Metallic stent which projects over the GE junction is again noted. No acute osseous normality. SL: [id number] Barium Swallow w EXAM: FLUOROSCOPY UPPER GI CONTRAST 09/10/2016 [facility] Esophagus Function DX DATE: 09/10/2016 6:00 AM CDT INDICATION: Dysphagia. ADDITIONAL INFORMATION: Postoperative esophageal stent placement. COMPARISON: CT chest abdomen pelvis of 08/31/2016. TECHNIQUE: Upper GI was performed using single contrast technique via p.o. intake. FLUOROSCOPY TIME: About 1 minute. DISCUSSION: Postoperative distal esophageal stent placement. Mild nonspecific hyperdensity is present outside and to the left of the esophageal stent may represent contrast within the adjacent bowel near the GE kathy ction as suggested on recent CT chest abdomen pelvis rather than active contrast extravasation. Postoperative gastrectomy and presumed esophageal jejunal anastomosis is present. No evidence of distal stent obstruction detected. IMPRESSION: 1. Postoperative distal esophageal stent placement. Mild nonspecific hyperdensity is present outside and to the left of the esophageal stent may represent contrast within the adjacent bowel near the GE junction as suggested on recent CT chest abdomen pelvis rather than active contrast extravasation. No evidence of distal stent obstruction detected. If there is high clinical suspicion for active contra st extravasation, dedicated CT chest and abdomen with IV and p.o. contrast can be performed for further evaluation. 2. Postoperative gastrectomy and presumed esophageal jejunal anastomosis is present. SL: [id number] Chest 1view DX Portable chest: The PICC line tip is in good position at the cavoatrial junction. A distal esophageal stent is noted in satisfactory position bridging the GE junction. The cardiac silhouette and pulmona 2015 [facility] vasculature are within normal limits. The lungs and pleural spaces are clear. There is no other significant change compared to 08/31/2016. [id number] Chest/Abd/Pelvis w/wo Clinical Indication: Chest pain, status post gastrectomy and partial esophagectomy, EGD, esophageal dilatation; 08/31/2016 [facility] IV contrast CT Comparison: None Technique: Multi-detector CT imaging of the chest, abdomen and pelvis is performed [<with>] contrast. Coronal and sagittal reconstructions were obtained. IV Contrast: 100 mL Omnipaque Oral Contrast: [address] Radiation Dose DLP 3228 mGy-cm FINDINGS: LUNG PARENCHYMA: There are no lung nodules, interstitial lung disease, pleural effusions or pneumothorax. AIRWAY: The central airway is normal. MEDIASTINUM: There is no mediastinal lymphadenopathy. A stent in the distal esophagus extending across the GE junction to an anastomosis with the jejunum. The jejunum is filled with contrast and unremarkable. Again seen is the excluded gastric body with a suture line and medial along the lesser curvature/fundus, with no contrast transit into the excluded portion of the stomach.. There is moderate amount of contrast in the mid and distal esophagus and wit hin the stent. The esophageal wall thickening on the prior chest CT from is decreased. HEART: The heart is unremarkable without pericardial effusion. VASCULAR STRUCTURES: The thoracic aorta and pulmonary arteries are normal. The great vessels and superior vena cava are normal. ABDOMINAL SOLID ORGANS: The contrast enhanced images of the liver, spleen, pancreas, gallbladder, adrenals and kidneys are normal. A 1.5 cm left renal cyst is unchanged. GI TRACT: No acute abnormalities. No bowel wall thickening or dilated loops of bowel. See above for description of surgical changes to distal esophagus and stomach. PERITONEUM AND RETROPERITONEUM: There is no abdominal lymphadenopathy. There is no pneumoperitoneum. There is no abdominal ascites. There are no retroperitoneal abnormalities. VASCULAR STRUCTURES: The abdominal aorta and inferior vena cava are unremarkable with widely patent renal arteries. The mesenteric arteries and veins are also patent, with patent portal vein. BLADDER: The bladder is unremarkable. BONES AND SOFT TISSUES: There are no acute osseous abnormalities seen. IMPRESSION: 1. Patent distal esophageal/GE junction stent as described. No contrast leak into the mediastinum or peritoneum, and no contrast passage into the surgically excluded portion of the stomach. The proximal and mid esophagus are mildly dilated. 2. No new acute abnormalities in the chest, abdomen, or pelvis. SL: [id number] Chest 1view DX Chest 1view DX 08/31/2016 [facility] CLINICAL HISTORY:Coughing COMPARISON: 2014 FINDINGS/IMPRESSION: Limited AP portable study. Support Lines/Devices: Gastroesophageal stent extends from the distal portion of the esophagus into the stomach. Lungs: Mild pulmonary underinflation. Mild left basilar atelectasis. No consolidation, effusion or any significant pulmonary edema. Cardiomediastinum: Cardiomediastinal silhouette is stable. Bone and Soft Tissues: No significant abnormality is evident. Multiple EKG leads and other wires project over the patient's chest. SL: [id number] Barium Swallow w Patient Name: SABINE DEXTER 08/26/2016 [facility] Esophagus Function DX : 1975; Age: 40 years y/o Female MR: [id number] Study: Barium Swallow w Esophagus Function DX Comparison: None Fluoroscopic time 5 minutes Clinical Indication: R13.10 Dysphagia, unspecified; scleroderma Technique: Thin barium was utilized for PATTERSON and LPO images. Thick barium was utilized for upright imaging of the esophagus and pharynx. Cracker with barium paste was given to evaluate motility with solids. FINDINGS: In the PATTERSON and LPO positioning, the esophagus is severely hypoperistaltic to aperistaltic with no primary stripping wave and no tertiary contractions. Some retrograde peristalsis is noted. The caliber of the esophagus is nondilated. There is no delay in passage of the bolus from the pharynx into the esophagus. No cricopharyngeal bar or Zenker's diverticulum. In the upright position, there is persistent hypoperistalsis; however, the aboral passage of the bolus is facilitated by gravity and pressure head from the barium column. Minimal esophagitis is noted at the distal esophagus. No annular constricting lesion or intraluminal mass. Postoperative changes of total gastrectomy with esophagoenterostomy are noted. No delay in passage of barium coated solid was noted. SL: [id number] Barium swallow DX ESOPHAGRAM: 08/25/2015 [facility] HISTORY: The patient gives a history of scleroderma with esophagojejunostomy and stent placement due to a stricture at the anastomosis. She has mid chest pain with obstructive type symptoms. FINDINGS: Preliminary fluoroscopy shows the esophageal stent covering the area of the anastomosis with surgical clips seen around the upper end of the stent and mid stent. The patient swallowed water-soluble contrast without difficulty in the upright position. There was prompt flow of contrast through the esophagus and stent into the jejunal loop without obstruction or ex travasation. There is mild luminal irregularity of the esophagus just above the stent without significant stricture of the esophagus or jejunal loop distal to the stent. With additional ingestion of contrast, there is contrast retention within the stent, with some to and fro activity noted in the lower esophagus. The jejunal loop appeared relatively aperistaltic. IMPRESSION: The stent appears to be in satisfactory position. There is no obstruction or significant stricture of the uncovered esophagus. Some retention within the stent with continued ingestion may be related to an aperistaltic jejunal loop. SL:[address] CHEST W CONTRAST CT 08/24/2015 [facility] HX: Chest pain gastric stent placement 2 weeks ago. Nausea and vomiting. Technique: Helical CT images were obtained from the thoracic inlet to the upper abdomen following the administration of 100 CC Omnipaque nonionic iodinated intravenous contrast. Dose:CTDlvol=16.1 mGy FINDINGS: Examination is performed while or immediately after swallowing barium. The lungs are free of consolidation or mass. No pleural or pericardial effusions are noted. The cardiac silhouette is within normal limits of size. In the distal half of the esophagus there is thickening of the esophageal wall which begins approximately at the level of the yamel and extends to the gastroesophageal junction. In the lower portion of the esophagus there is an expandable wire stent which projects from the esophagus into the proximal stomach. Contrast is present above the stent in the distal esophagus. Some gas is seen around the dis hanh portion of the stent which projects into the gastric lumen. CONCLUSION: 1. Thickening of the wall of the esophagus which extends from the level of the yamel to the stomach. This may be due to inflammatory reaction, passive edema or neoplasm. Clinical correlation recommended. 2. Expandable wire stent which extends from the distal esophagus to the gastric lumen. The stent projects approximately 4 cm above the diaphragm. 3. No evidence of contrast or gas outside the esophageal contours in the thoracic region. SL: 12 Chest 2 views DX CHEST, TWO VIEWS 08/09/2015 [facility] HISTORY: Coughing. COMPARISON: 07/17/2014 FINDINGS: The lungs are clear. No pleural effusion. No pneumothorax. Heart size normal. No acute osseous abnormality. SL: 16 Abdomen/Pelvis w IV EXAM: CT ABDOMEN AND PELVIS WITH IV CONTRAST 08/08/2015 [facility] CT DATE: Aug 08, 2015 05:39:32 PM CLINICAL INDICATIONS: Bowel obstruction TECHNIQUE: Multiple helical of abdomen and pelvis from the level of the domes of the diaphragm through the symphysis pubis after the administration of intravenous contrast. Axial, sagittal and coronal r eformats are provided. Delayed images through the abdomen were acquired. COMPARISON: CT abdomen pelvis 11/28/2014.. FINDINGS: Bilateral lung bases are clear without pleural effusions.. There is contrast in the distal esophagus. Distal esophageal wall thickening is identified. These findings are concerning for esophagitis and gastroesophageal reflux. The liver, spleen, gallbladder, bilateral adrenal glands, pancreas, are within normal limits. Small hypodensities in bilateral kidneys likely represent cysts. No subdiaphragmatic lymphadenopathy is seen. No intraperitoneal free air or fluid is identified.. There is streak artifact from barium within the colon which limits evaluation of the surrounding structu res in the colon. The large and small bowel are normal in caliber. Maggi-en- Y gastric bypass is again seen without contrast identified in the excluded stomach. There is hypodense fluid in the excluded s tomach. No evidence of internal hernia is seen. The appendix is not identified, however, there are no secondary signs of acute appendicitis. A tampon is present in the vaginal canal. No osseous destructive lesions are seen. Near-complete resolution of anterior abdominal wall fluid collection is seen with residual scar tissue and minimal hypodense fluid. Small fat containing left internal hernia seen without inflammation. IMPRESSION: 1. No acute intra-abdominal abnormality seen 2. Near-complete resolution of anterior abdominal wall collection with residual scar tissue and minimal hypodense fluid. 3. Otherwise, no significant interval change compared to prior examination. SL: 12 Barium Swallow w Barium Swallow/Video esophagram: 08/07/2015 [facility] Esophagus Function DX CLINICAL HX: 933.3, 530.81 TECHNIQUE: Thin barium was utilized for prone and LPO images. Thick barium was utilized for upright imaging of the esophagus and pharynx. Cracker with barium paste was given to evaluate motility with solids. FINDINGS: There is no delay in passage of bolus from the pharynx into the esophagus. The cricopharyngeus relaxes normally. There is no evidence for a Zenker's diverticulum or pharyngeal web. Prone PATTERSON images of the esophagus showed severe esophageal dysmotility. Small sliding hiatal hernia is seen. Supine LPO images of the esophagus demonstrate moderate to severe delay in transit of contrast through the esophagus with multiple episodes of retrograde motility. Upright and LPO images with thick barium reveal mild to moderate esophageal dysmotility. No mass lesions, stricture, or any significant mucosal abnormality of the esophagus is noted. Postoperative darby es of gastrectomy and esophagojejunostomy are seen. Subsequently 2 separate swallows of a small piece of cracker and barium were fluoroscopically followed through the length of esophagus. There is no severe delay in passage of the solid barium bolus through the esophagus into the jejunum. Delayed image through the upper abdomen reveals persistent contrast material in the distal esophagus. IMPRESSION: 1. Postoperative changes of gastrectomy and esophagojejunostomy. 2. Moderate to severe esophageal dysmotility noted with thin and thick barium as well as with solid barium bolus, as described above. 3. Small sliding hiatal hernia. Fluoroscopy Time: 4.2 minutes SL: 16 Abscess abdomen EXAM: ULTRASOUND AND FLUOROSCOPIC GUIDED ABDOMINAL WALL DRAIN PLACEMENT. 11/29/2014 [facility] peritoneum drainage VR DATE: Nov 29, 2014 04:27:56 PM CLINICAL HISTORY: Abdominal wall seroma PROCEDURE: Informed consent was obtained the patient, after which the patient was brought into the examination suite and placed in a supine position on the fluoroscopy table. The anterior abdominal wall was imaged sonographically, demonstrating a large mildly complex abdominal wall collection. The site was prepped and draped in the usual fashion. Lidocaine 1% was injected into focus of skin and down to the surface of the collection under sonographic guidance. A [employer] needle was advanced under sonographic guidance into the abdominal wall collection. Sonographic image was placed in the patient's EMR. Needle was removed, and the sheath was advanced into the collection. A 0.035 Amplatz wire was advanced through the sheath. The tra ck was dilated then a 14 [place] pigtail catheter was placed in the inferior left portion of the collection. 560 mL of dark blood-tinged fluid was aspirated and discarded. The drain was secured to the skin with 0 silk sutures. A sterile dressing was applied. The drain was attached to a CORRINA suction bulb. COMPLICATIONS: None. ANESTHESIA: Lidocaine 1%, subcutaneous; BUYER AGENT: Dr. Pineda FLUOROSCOPY TIME: 0.4 min IMPRESSION: Successful ultrasound and fluoroscopic guided 14 [place]ian pigtail drain placement within an anterior abdominal wall collection. 560 mL of dark blood- tinged fluid aspirated. SL: 13 Abdomen/Pelvis wo IV CT ABDOMEN WITHOUT CONTRAST; CT PELVIS WITHOUT CONTRAST: 11/28/2014 [facility] CT TECHNIQUE: Both exams were done with oral contrast only. FINDINGS: There has been interval abdominal wall hernia repair since an outside CT on 10/31/2014. The repair appears intact without evidence of recurrent hernia. There is a large subcutaneous fluid marc ection in the mid anterior abdominal wall measuring about 20 cm longitudinally, 14 cm in transverse dimension, and 3.5 cm in thickness. The Hounsfield units in the collection measure water density. Ther e is no other abdominal wall mass. There is no intraperitoneal fluid collection. Gastrojejunostomy is noted without obstruction or extravasation. Thickening of the lower esophageal wall is seen.. The GI tract is otherwise unremarkable. The liver is unremarkable except for a small low density area in the region of the gallbladder fossa unchanged from the previous exam. The gallbladder is not visualized. There is no evidence of biliary dilatation. The spleen, pancreas, kidneys and adrenal glands show no acute abnormalities. A small calyceal stone in the left kidney and a small left renal cyst are noted. A tampon is noted in the upper vaginal canal. There is minimal free fluid in the cul-de-sac. The uterus and adnexal regions are otherwise unremarkable. IMPRESSION: 1. Intact anterior abdominal wall repair. 2. Large subcutaneous seroma in the anterior abdominal wall. 3. No significant intra-abdominal abnormalities. SL:13 Abdomen/Pelvis w IV CT Abdomen with Contrast, CT Pelvis with Contrast: [address] [facility] [address] TECHNIQUE: Contiguous transaxial images of the abdomen and pelvis were performed from the lung bases to the superior pubic rami with IV contrast. Oral contrast was also administered COMPARISON: 07/18/2014 CLINICAL HX: Ventral abdominal wall hernia CT ABDOMEN: Lower Chest: The lung bases are clear. GI Tract: Interval development of supraumbilical ventral abdominal hernia above the umbilicus. The gap between the rectum muscles is approximately 3.5 cm. Portion of the colon and accompanying mesentery are noted to herniate through the gap. No bowel wall thickening or mesenteric edema. A second ventral abdominal hernia at the umbilicus is larger in size and contains small bowel loops. Gap between the rectus muscles is nearly 6 cm. There is no bowel wall thickening. No mesenteric edema. Bowel gas pattern is otherwise unremarkable. Mild thickening of the wall of the distal esophagus. Postoperative changes involves the stomach possibly reflecting a gastric bypass. There is no evidence for free fluid or free air in the abdomen. Tract and retroperitoneum: 1.4 cm cyst lower pole of left kidney. The kidneys otherwise demonstrate normal morphology and symmetric excretion. No significant retroperitoneal lymphadenopathy is noted. Abdominal viscera: The spleen, pancreas and both adrenals demonstrate normal morphology. Decrease attenuation noted along the portion of the liver abutting the gallbladder fossa has decreased in conspic uity and size from previous study. These changes are presumably postsurgical. Vasculature: The aorta demonstrates normal morphology. Bone and Soft tissues: No significant bony abnormality is noted. CT PELVIS: The bladder, uterus and adnexa demonstrate normal morphology. No free fluid is present in the pelvis. IMPRESSION: Supraumbilical ventral abdominal hernia containing small portion of colon and mesentery. No bowel wall thickening or mesenteric edema. Second ventral abdominal hernia at the umbilicus containing small bowel loops. No bowel wall thickening or mesenteric edema is visualized. No evidence to suggest small or large bowel obstruction. No other significant interval change from previous study of 07/18/2014 is evident. SL:13 Abdomen/Pelvis w IV CT SCAN OF THE ABDOMEN AND PELVIS WITH CONTRAST. [address] [facility] [address] HX: Abdominal pain, acute. epigastric pain. hx of scleroderma. stated that she just got out of the hospital to have her esophagus opened. COMPARISON: CT abdomen pelvis 01/31/2009 Technique: Helical CT images were obtained from the domes the diaphragms to the symphysis pubis following the administration of oral and intravenous contrast. ABDOMEN AND PELVIS: The lung bases are clear. There are no pleural effusions. The heart is normal in size. Postoperative midline laparotomy. Extensive postop change around the stomach. Mild distention o f the distal esophagus containing contrast may represent reflux or esophageal dysmotility. Postoperative cholecystectomy. Indeterminate low- density lesion is present within the central and hepatic lobe adjacent to gallbladder fossa may represent cyst. The spleen, pancreas, and adrenals are stable in appearance. The kidneys show good, symmetrical, excretion without hydronephrosis. Larger 1.4 cm lateral inferior left renal cyst is present. New superior pole right renal cysts are present. Punctate interpolar left renal stone is present. Stable uterus and adnexa. The bladder is nondistended. IMPRESSION: 1. Postoperative midline laparotomy. Extensive postop change around the stomach. Mild distention of the distal esophagus containing contrast may represent reflux or esophageal dysmotility. 2. Indeterminate low-density lesion within the central and hepatic lobe adjacent to the gallbladder fossa may represent cyst. 3. Postoperative cholecystectomy. SL: 12 Shoulder series 07/17/2014 FERNANDO Kimble REASON FOR EXAM: Shoulder pain 719.41. COMPARISON: None. FINDINGS: Two views of the right shoulder were performed with internal and external rotation. There is narrowing of the inferior aspect of the acromioclavicular joint. Several tiny cysts are suspected i n the subchondral marrow of the lateral aspect of the clavicle. There is no additional demonstrable arthritic change. There is no demonstrable fracture, dislocation or soft tissue calcification. IMPRESSION: 1. Mild arthritic changes of the acromioclavicular joint. 2. Otherwise unremarkable right shoulder series. SL: 15 Chest 2 views 07/17/2014 FERNANDO Kimble REASON FOR EXAM: Chest pain, 786.59. COMPARISON: Prior chest x-rays dating to 01/24/2009, the most recent comparison examination is a portable chest x-ray performed 07/03/2014. FINDINGS: A two view chest x-ray was performed. The cardiomediastinal silhouette is within normal limits. There is mild elevation/partial focal eventration of the anterior right diaphragm. The lungs are expanded without demonstrable infiltrate, pneumothorax or pleural effusion. There is no significant osseous abnormality. There are surgical clips in the mid epigastric region. There is no free air beneath the diaphragm. IMPRESSION: There is no demonstrable acute cardiopulmonary disease. SL: 15 Esophagus Ba Swallow Barium Swallow/Video esophagram: 07/11/2014 [facility] with Esophagus [facility] CLINICAL HX: Dysphagia, difficulty tolerating liquids and solids. COMPARISON: 06/11/2014 TECHNIQUE: Thin barium was utilized for upright images. No solids were administered. FINDINGS: The esophagus is mildly dilated. There is moderate delay in passage of the administered barium from the esophagus into the jejunum. There is moderate to severe narrowing visualized in the very distal portion of the esophagus. The area of narrowing appears to be just proximal to the gastrojejunal anastomosis. On the initial images, there is slow transit of barium, past this area of narrowing, into the jejunum. Delayed image performed approximately 10 minutes later reveals clearing of the residual barium from the esophagus. No leakage of contrast outside bowel lumen is noted. IMPRESSION: Moderate to severe narrowing is visualized in the distal esophagus just proximal to the esophagojejunostomy anastomosis. This results in moderate delay in passage of barium from the esophagus to the jej unum, but on the delayed 10 minute image, essentially all of the residual barium has cleared from the esophagus. Fluoroscopy Time: 1.4 minutes SL:13 Chest 1view EXAM: CHEST 1 VIEW 07/03/2014 [facility] DATE: Jul 03, 2014 03:20:00 PM INDICATION: Pleural effusion COMPARISON: Chest x-ray 06/12/2014. TECHNIQUE: AP chest radiograph. FINDINGS: Lung volumes are low. Lungs are clear bilaterally without effusion. The cardiomediastinal contours are within normal limits. The skeleton is intact IMPRESSION: No acute intrathoracic abnormality. No pleural effusion seen. SL: 13 Esophagus Ba Swallow Barium Swallow/Video esophagram: 04/26/2014 [facility] with Esophagus [facility] CLINICAL HX: Scleroderma, recent fundoplication, recurrent regurgitation TECHNIQUE: Thin barium was utilized for prone oblique images. Thick barium was utilized for upright imaging of the esophagus and pharynx. Hamburger meat with barium paste was given to evaluate motility with solids. FINDINGS: There is no delay in passage of bolus from the pharynx into the esophagus. The cricopharyngeus relaxes normally. There is no evidence for a Zenker's diverticulum or pharyngeal web. Prone individual swallows reveal mild delay in passage of the barium from the esophagus to the stomach. No stricture is visualized at the GE junction. Portion of the fundus of the stomach is noted vimal cent to the distal esophagus indicating partial herniation of the fundoplication wrap. Upright images reveal mild dilation of the esophagus. There is minimal to no significant delay in clearance of thick barium from the esophagus. Subsequently 2 separate swallows of a small piece of hamburger meat and barium were fluoroscopically followed through the length of esophagus. There is moderate esophageal dysmotility with respect to so lids. The administered solids remain in the lower two thirds of the esophagus. The patient is able to clear the residual solids from the lower esophagus following ingestion of additional thin barium. Delayed image through the upper abdomen reveals prompt passage of barium from the stomach to the proximal small bowel. IMPRESSION: There is minimal to mild esophageal dysmotility with respect to liquids on the recumbent exam but no significant delay in clearance of barium from the esophagus on the upright images. Moderate esophageal dysmotility with respect to solids. No stricture is visualized at the GE junction. Partial herniation of the fundoplication wrap is noted resulting in a small paraesophageal hernia. Fluoroscopy Time: 3.2 minutes SL:13 Consultation Notes No Data Provided for This Section Discharge Summaries No Data Provided for This Section History and Physicals No Data Provided for This Section Vital Signs Vital Sign Value Date Comments Source Heart Rate 93 11/28/2018 [facility] Temperature Oral (F) 98.3 F 11/28/2018 [facility] Systolic (mm Hg) 127 11/28/2018 [facility] Diastolic (mm Hg) 83 11/28/2018 [facility] Respitory Rate 18 11/28/2018 [facility] Temperature Oral (F) 97.8 F 11/28/2018 [facility] Systolic (mm Hg) 118 11/28/2018 [facility] Diastolic (mm Hg) 77 11/28/2018 [facility] Heart Rate 87 11/28/2018 [facility] Respitory Rate 18 11/28/2018 [facility] Systolic (mm Hg) 102 11/28/2018 [facility] Diastolic (mm Hg) 63 11/28/2018 [facility] Respitory Rate 18 11/28/2018 [facility] Heart Rate 72 11/28/2018 [facility] Temperature Oral (F) 98 F 11/28/2018 [facility] Weight 98.636 11/28/2018 [facility] BMI Calculated 32.89 11/23/2018 [facility] Weight 92.443 11/23/2018 [facility] Height 167.64 cm 11/23/2018 [facility] Respitory Rate 18 10/06/2016 [facility] Heart Rate 80 10/06/2016 [facility] Temperature Oral (F) 97.9 F 10/06/2016 [facility] Systolic (mm Hg) 114 10/06/2016 [facility] Diastolic (mm Hg) 78 10/06/2016 [facility] Systolic (mm Hg) 106 10/06/2016 [facility] Diastolic (mm Hg) 72 10/06/2016 [facility] Respitory Rate 18 10/06/2016 [facility] Heart Rate 53 10/06/2016 [facility] Temperature Oral (F) 97.6 F 10/06/2016 [facility] Systolic (mm Hg) 109 10/06/2016 [facility] Diastolic (mm Hg) 71 10/06/2016 [facility] Heart Rate 64 10/06/2016 [facility] Respitory Rate 18 10/06/2016 [facility] Temperature Oral (F) 97.6 F 10/06/2016 [facility] Weight 80.136 10/03/2016 [facility] BMI Calculated 28.51 10/03/2016 [facility] Height 167.64 cm 10/03/2016 [facility] Systolic (mm Hg) 101 09/26/2016 [facility] Diastolic (mm Hg) 68 09/26/2016 [facility] Respitory Rate 16 09/26/2016 [facility] Heart Rate 58 09/26/2016 [facility] Temperature Oral (F) 97.6 F 09/26/2016 [facility] Systolic (mm Hg) 95 09/26/2016 [facility] Diastolic (mm Hg) 57 09/26/2016 [facility] Systolic (mm Hg) 100 09/26/2016 [facility] Diastolic (mm Hg) 68 09/26/2016 [facility] Heart Rate 69 09/26/2016 [facility] Heart Rate 55 09/26/2016 [facility] Respitory Rate 16 09/26/2016 [facility] Temperature Oral (F) 97.5 F 09/26/2016 [facility] Respitory Rate 16 09/26/2016 [facility] Temperature Oral (F) 98.2 F 09/26/2016 [facility] BMI Calculated 28.48 09/23/2016 [facility] Weight 80.045 09/23/2016 [facility] Height 167.64 cm 09/23/2016 [facility] Systolic (mm Hg) 113 09/12/2016 [facility] Diastolic (mm Hg) 74 09/12/2016 [facility] Respitory Rate 18 09/12/2016 [facility] Heart Rate 83 09/12/2016 [facility] Temperature Oral (F) 98.3 F 09/12/2016 [facility] Respitory Rate 18 09/11/2016 [facility] Temperature Oral (F) 98.3 F 09/11/2016 [facility] Heart Rate 69 09/11/2016 [facility] Systolic (mm Hg) 143 09/11/2016 [facility] Diastolic (mm Hg) 82 09/11/2016 [facility] Systolic (mm Hg) 104 09/11/2016 [facility] Diastolic (mm Hg) 67 09/11/2016 [facility] Heart Rate 74 09/11/2016 [facility] Temperature Oral (F) 97.7 F 09/11/2016 [facility] Respitory Rate 17 09/11/2016 [facility] BMI Calculated 27.25 09/09/2016 [facility] Weight 76.591 09/09/2016 [facility] Height 167.64 cm 09/09/2016 [facility] BMI Calculated 26.69 09/09/2016 [facility] Weight 75 09/09/2016 [facility] Height 167.64 cm 09/09/2016 [facility] Weight 78.001 09/09/2016 [facility] Systolic (mm Hg) 106 08/31/2016 [facility] Diastolic (mm Hg) 64 08/31/2016 [facility] Respitory Rate 18 08/31/2016 [facility] Systolic (mm Hg) 102 08/31/2016 [facility] Diastolic (mm Hg) 67 08/31/2016 [facility] Respitory Rate 18 08/31/2016 [facility] Respitory Rate 20 08/31/2016 [facility] Systolic (mm Hg) 95 08/31/2016 [facility] Diastolic (mm Hg) 57 08/31/2016 [facility] Temperature Oral (F) 97.6 F 08/31/2016 [facility] Heart Rate 53 08/31/2016 [facility] Weight 78.182 08/31/2016 [facility] BMI Calculated 28.68 08/31/2016 [facility] Height 165.1 cm 08/31/2016 [facility] Height 165.1 cm 08/28/2016 [facility] BMI Calculated 27.51 08/28/2016 [facility] Weight 75 08/28/2016 [facility] Systolic (mm Hg) 109 09/17/2015 [facility] Diastolic (mm Hg) 54 09/17/2015 [facility] Respitory Rate 20 09/17/2015 [facility] Systolic (mm Hg) 109 09/17/2015 [facility] Diastolic (mm Hg) 79 09/17/2015 [facility] Respitory Rate 16 09/17/2015 [facility] Systolic (mm Hg) 104 09/17/2015 [facility] Diastolic (mm Hg) 64 09/17/2015 [facility] Respitory Rate 18 09/17/2015 [facility] Temperature Oral (F) 98.3 F 09/17/2015 [facility] Heart Rate 58 09/17/2015 [facility] Weight 84.091 09/17/2015 [facility] BMI Calculated 29.92 09/17/2015 [facility] Height 167.64 cm 09/17/2015 [facility] Temperature Oral (F) 97.9 F 08/26/2015 [facility] Heart Rate 69 08/26/2015 [facility] Systolic (mm Hg) 114 08/26/2015 [facility] Diastolic (mm Hg) 68 08/26/2015 [facility] Respitory Rate 18 08/26/2015 [facility] Heart Rate 65 08/26/2015 [facility] Temperature Oral (F) 97.8 F 08/26/2015 [facility] Respitory Rate 18 08/26/2015 [facility] Systolic (mm Hg) 106 08/26/2015 [facility] Diastolic (mm Hg) 69 08/26/2015 [facility] Systolic (mm Hg) 110 08/26/2015 [facility] Diastolic (mm Hg) 73 08/26/2015 [facility] Heart Rate 68 08/26/2015 [facility] Respitory Rate 18 08/26/2015 [facility] Temperature Oral (F) 98.6 F 08/26/2015 [facility] Height 167.64 cm 08/24/2015 [facility] Weight 84.744 08/24/2015 [facility] BMI Calculated 30.15 08/24/2015 [facility] Height 167.64 cm 08/24/2015 [facility] Weight 81.364 08/24/2015 [facility] BMI Calculated 28.95 08/24/2015 [facility] Systolic (mm Hg) 120 08/09/2015 [facility] Diastolic (mm Hg) 79 08/09/2015 [facility] Systolic (mm Hg) 118 08/09/2015 [facility] Diastolic (mm Hg) 84 08/09/2015 [facility] Systolic (mm Hg) 122 08/09/2015 [facility] Diastolic (mm Hg) 79 08/09/2015 [facility] Respitory Rate 18 08/09/2015 [facility] Respitory Rate 20 08/09/2015 [facility] Respitory Rate 24 08/09/2015 [facility] Temperature Oral (F) 97.4 F 08/09/2015 [facility] Heart Rate 53 08/09/2015 [facility] Weight 84.091 08/09/2015 [facility] BMI Calculated 29.92 08/09/2015 [facility] Height 167.64 cm 08/09/2015 [facility] Height 65 05/09/2015 [facility] Weight 197 [...] 03/22/[facility] Heart Rate 49 03/22/2015 [facility] Systolic (mm Hg) 125 03/22/2015 [facility] Diastolic (mm Hg) 69 03/22/2015 [facility] Height 65 02/15/2015 [facility] Weight 189 02/15/2015 [facility] Systolic (mm Hg) 116 02/15/2015 [facility] Heart Rate 54 02/15/2015 [facility] Diastolic (mm Hg) 70 02/15/2015 [facility] Temperature Oral (F) 97.3 F 02/15/2015 [facility] Height 65 01/10/2015 [facility] Weight 194 01/10/2015 [facility] Temperature Oral (F) 97.6 F 01/10/2015 [facility] Heart Rate 51 01/10/2015 [facility] Systolic (mm Hg) 119 01/10/2015 [facility] Diastolic (mm Hg) 69 01/10/2015 [facility] Weight 197 12/10/2014 [facility] Temperature Oral (F) 97.0 F 12/10/2014 [facility] Systolic (mm Hg) 125 12/10/2014 [facility] Diastolic (mm Hg) 69 12/10/2014 [facility] Heart Rate 59 12/10/2014 [facility] Systolic (mm Hg) 137 11/30/2014 [facility] Heart Rate 88 11/30/2014 [facility] Diastolic (mm Hg) 76 11/30/2014 [facility] Respitory Rate 18 11/30/2014 [facility] Temperature Oral (F) 98.2 F 11/30/2014 [facility] Temperature Oral (F) 98.4 F 11/30/2014 [facility] Heart Rate 59 11/30/2014 [facility] Respitory Rate 18 11/30/2014 [facility] Diastolic (mm Hg) 73 11/30/2014 [facility] Systolic (mm Hg) 126 11/30/2014 [facility] Heart Rate 64 11/30/2014 [facility] Temperature Oral (F) 98.5 F 11/30/2014 [facility] Respitory Rate 18 11/30/2014 [facility] Diastolic (mm Hg) 76 11/30/2014 [facility] Systolic (mm Hg) 161 11/30/2014 [facility] Weight 90.909 11/28/2014 [facility] BMI Calculated 32.35 11/28/2014 [facility] Height 167.64 cm 11/28/2014 [facility] Weight 90.909 11/28/2014 [facility] BMI Calculated 32.35 11/28/2014 [facility] Height 167.64 cm 11/28/2014 [facility] Weight 201 11/13/2014 [facility] Temperature Oral (F) 96.8 F 11/13/2014 [facility] Height 65 11/13/2014 [facility] Heart Rate 75 11/13/2014 [facility] Systolic (mm Hg) 119 11/13/2014 [facility] Diastolic (mm Hg) 76 11/13/2014 [facility] Diastolic (mm Hg) 71 11/10/2014 [facility] Systolic (mm Hg) 113 11/10/2014 [facility] Respitory Rate 16 11/10/2014 [facility] Temperature Oral (F) 98.0 F 11/10/2014 [facility] Heart Rate 60 11/10/2014 [facility] Temperature Oral (F) 97.1 F 11/10/2014 [facility] Respitory Rate 16 11/10/2014 [facility] Systolic (mm Hg) 118 11/10/2014 [facility] Diastolic (mm Hg) 70 11/10/2014 [facility] Heart Rate 55 11/10/2014 [facility] Temperature Oral (F) 98.3 F 11/10/2014 [facility] Respitory Rate 16 11/10/2014 [facility] Heart Rate 60 11/10/2014 [facility] Diastolic (mm Hg) 67 11/10/2014 [facility] Systolic (mm Hg) 113 11/10/2014 [facility] Weight 88.63 11/09/2014 [facility] Height 167.64 cm 11/07/2014 [facility] BMI Calculated 31.54 11/07/2014 [facility] Weight 88.636 11/07/2014 [facility] BMI Calculated 32.35 11/07/2014 [facility] Height 167.64 cm 11/07/2014 [facility] Weight 90.909 11/07/2014 [facility] Height 167.64 cm 11/05/2014 [facility] BMI Calculated 31.7 11/05/2014 [facility] Diastolic (mm Hg) 66 11/01/2014 [facility] Systolic (mm Hg) 116 11/01/2014 [facility] Heart Rate 64 11/01/2014 [facility] Respitory Rate 18 11/01/2014 [facility] Temperature Oral (F) 99.6 F 11/01/2014 [facility] Weight 90.009 11/01/2014 [facility] Diastolic (mm Hg) 65 11/01/2014 [facility] Systolic (mm Hg) 126 11/01/2014 [facility] Respitory Rate 17 11/01/2014 [facility] Heart Rate 48 11/01/2014 [facility] Temperature Oral (F) 98.4 F 11/01/2014 [facility] Height 167.64 cm 11/01/2014 [facility] Weight 90.909 11/01/2014 [facility] BMI Calculated 32.35 11/01/2014 [facility] Diastolic (mm Hg) 51 11/01/2014 [facility] Respitory Rate 16 11/01/2014 [facility] Systolic (mm Hg) 107 11/01/2014 [facility] Heart Rate 50 11/01/2014 [facility] Temperature Oral (F) 98.0 F 11/01/2014 [facility] Height 167.64 cm 11/01/2014 [facility] BMI Calculated 32.83 11/01/2014 [facility] Weight 92.273 11/01/2014 [facility] Height 65 10/26/2014 [facility] Weight 206 10/26/2014 [facility] Heart Rate 54 10/26/2014 [facility] Systolic (mm Hg) 125 10/26/2014 [facility] Diastolic (mm Hg) 71 10/26/2014 [facility] Temperature Oral (F) 98.1 F 10/26/2014 [facility] Height 65 10/03/2014 [facility] Weight 215 10/03/2014 [facility] Temperature Oral (F) 97.2 F 10/03/2014 [facility] Heart Rate 66 10/03/2014 [facility] Systolic (mm Hg) 138 10/03/2014 [facility] Diastolic (mm Hg) 67 10/03/2014 [facility] Respitory Rate 20 07/18/2014 [facility] Diastolic (mm Hg) 89 07/18/2014 [facility] Systolic (mm Hg) 137 07/18/2014 [facility] Respitory Rate 17 07/18/2014 [facility] Diastolic (mm Hg) 73 07/18/2014 [facility] Respitory Rate 18 07/18/2014 [facility] Systolic (mm Hg) 129 07/18/2014 [facility] Heart Rate 54 07/18/2014 [facility] Weight 81.818 07/18/2014 [facility] BMI Calculated 30.96 07/18/2014 [facility] Height 162.56 cm 07/18/2014 [facility] Diastolic (mm Hg) 79 07/18/2014 [facility] Heart Rate 57 07/18/2014 [facility] Temperature Oral (F) 97.7 F 07/18/2014 [facility] Systolic (mm Hg) 130 07/18/2014 [facility] Heart Rate 60 07/18/2014 [facility] Weight 102.273 07/18/2014 [facility] Temperature Oral (F) 97.9 F 07/18/2014 [facility] Weight 231 07/17/2014 [facility] Systolic (mm Hg) 155 07/17/2014 [facility] Diastolic (mm Hg) 82 07/17/2014 [facility] Heart Rate 61 07/17/2014 [facility] Temperature Oral (F) 97.5 F 07/17/2014 [facility] Height 65 07/17/2014 [facility] Diastolic (mm Hg) 69 07/13/2014 [facility] Systolic (mm Hg) 122 07/13/2014 [facility] Systolic (mm Hg) 122 07/13/2014 [facility] Diastolic (mm Hg) 69 07/13/2014 [facility] Systolic (mm Hg) 122 07/13/2014 [facility] Diastolic (mm Hg) 66 07/13/2014 [facility] Respitory Rate 20 07/13/2014 [facility] Respitory Rate 18 07/13/2014 [facility] Respitory Rate 20 07/13/2014 [facility] Temperature Oral (F) 97.8 F 07/13/2014 [facility] Heart Rate 54 07/13/2014 [facility] BMI Calculated 36.39 07/13/2014 [facility] Height 167.64 cm 07/13/2014 [facility] Weight 102.273 07/13/2014 [facility] Diastolic (mm Hg) 121 07/03/2014 [facility] Systolic (mm Hg) 150 07/03/2014 [facility] Diastolic (mm Hg) 56 07/03/2014 [facility] Systolic (mm Hg) 129 07/03/2014 [facility] Systolic (mm Hg) 122 07/03/2014 [facility] Diastolic (mm Hg) 60 07/03/2014 [facility] Respitory Rate 16 07/03/2014 [facility] Respitory Rate 20 07/03/2014 [facility] Respitory Rate 20 07/03/2014 [facility] BMI Calculated 36.88 07/03/2014 [facility] Weight 103.636 07/03/2014 [facility] Height 167.64 cm 07/03/2014 [facility] Temperature Oral (F) 98.6 F 07/03/2014 [facility] Heart Rate 49 07/03/2014 [facility] Temperature Oral (F) 98.0 F 06/13/2014 [facility] Diastolic (mm Hg) 71 06/13/2014 [facility] Heart Rate 70 06/13/2014 [facility] Systolic (mm Hg) 109 06/13/2014 [facility] Respitory Rate 20 06/13/2014 [facility] Heart Rate 72 06/13/2014 [facility] Respitory Rate 20 06/13/2014 [facility] Systolic (mm Hg) 114 06/13/2014 [facility] Diastolic (mm Hg) 74 06/13/2014 [facility] Systolic (mm Hg) 99 06/13/2014 [facility] Diastolic (mm Hg) 60 06/13/2014 [facility] Respitory Rate 20 06/13/2014 [facility] Heart Rate 71 06/13/2014 [facility] Temperature Oral (F) 98.0 F 06/13/2014 [facility] Temperature Oral (F) 98.2 F 06/13/2014 [facility] BMI Calculated 41.24 05/31/2014 [facility] Height 167.64 cm 05/31/2014 [facility] Weight 115.909 05/31/2014 [facility] Diastolic (mm Hg) 65 05/28/2014 [facility] Respitory Rate 16 05/28/2014 [facility] Systolic (mm Hg) 120 05/28/2014 [facility] Diastolic (mm Hg) 56 05/28/2014 [facility] Systolic (mm Hg) 124 05/28/2014 [facility] Respitory Rate 16 05/28/2014 [facility] Height 167.64 cm 05/28/2014 [facility] BMI Calculated 41.24 05/28/2014 [facility] Weight 115.909 05/28/2014 [facility] Diastolic (mm Hg) 59 05/28/2014 [facility] Systolic (mm Hg) 127 05/28/2014 [facility] Respitory Rate 16 05/28/2014 [facility] Weight 251 03/24/2014 [facility] Height 65 03/24/2014 [facility] Temperature Oral (F) 98.9 F 03/24/2014 [facility] Heart Rate 83 03/24/2014 [facility] Systolic (mm Hg) 137 03/24/2014 [facility] Diastolic (mm Hg) 77 03/24/2014 [facility] Encounters Location Location Encounter Encounter Reason Attending ADM DC Status Source Details Type Number For Provider Date Date Visit [facility] [id number] [facility] 03/24 03/24 Ezra Visit Emre Garnett MD /2013 [facility] Lab Report [id number] [facility] 03/26 03/26 LEO Munguia 69Gregory Garnett MD /2013 [facility] Outpatient [id number] [facility] 04/26 04/27 LEO Anderson /2013 [facility] [id number] [facility] 04/27 LEO Munguia 9710 MD Tamir /2013 [facility] Bedded [id number] [facility] 05/28 05/28 [facility] Outpatient Banki /2013 [facility] Inpatient [id number] Leonel Martin 06/04 06/13 Shobonier /2013 [facility] OBS Day [id number] [facility] 07/03 07/03 [place] Surgery Banki /2013 [facility] Outpatient [id number] [facility] 07/11 07/12 MH Shobonier Banki /2013 [facility] OBS Day [id number] [facility] 07/13 07/13 MH Ezra Surgery Banki /2013 [facility] Lab Report [id number] [facility] 07/17 07/17 Ezra 036Callum Garnett MD [facility]2013 [id number] [facility] 07/17 07/18 [facility] Tamir /2013 [facility] EC [id number] Leonelsuha Salazar 07/18 07/18 Ezra Emergency /2013 [id number] [facility] 10/03 10/03 MH Ezra Visit 2120 MD Tamir /2013 [facility] Outpatient [id number] [facility] 10/10 10/11 Ezra Banki /2013 [facility] Office [id number] [facility] 10/26 10/26 MH Ezra Visit 0280 MD Tamir /2013 [facility] Inpatient [id number] [place] 11/01 11/01 [place] Ezra Velazquez /2013 [facility] Inpatient [id number] [place] 11/07 11/10 [facility] Ezra Kraus /2013 [facility] Office [id number] [facility] 11/13 11/13 MH Shobonier Visit 7140 MD Tamir /2014 [facility] Inpatient [id number] Leonelsuha Salazar 11/28 11/30 Shobonier /2014 [facility] Office [id number] [facility] 12/10 12/10 Ezra Visit 3320 MD Tamir /2014 Medical [facility] Lab Report [id number] [facility] 12/20 12/20 [place] 3760 MD Tamir /2014 [facility] Office [id number] Zenithe 01/10 01/10 MH Shobonier Visit 8400 MD Tamir /2014 [facility] Lab Report [id number] Zenithe 02/15 02/15 Shobonier 9090 MD Tamir /2014 Medical [facility] Office [id number] Zenithe 03/22 03/22 MH Ezra Visit 7690 MD Tamir /2014 [facility] Lab Report [id number] Zenithe 04/11 04/11 Ezra 9120 MD Tamir /[address] [facility] Office [id number] Zenithe 04/12 04/12 MH Ezra Visit 2360 MD Tamir /2014 [facility] Lab Report [id number] Zenithe 05/09 05/09 Ezra 8170 MD Tamir /2014 [facility] Office [id number] Zenithe 05/09 05/09 Ezra Visit 1890 MD Tamir /2014 [facility] Outpatient [id number] [facility] Active [facility] T[facility] Shobon[facility] Outpatient [id number] [facility] 07/08 Active [facility] EVELYNE Ezra Outpatient [id number] [facility] 07/09 Active [facility] Out[facility] [id number] [facility] 08/08 08/09 Ezra [facility] /2014 [facility] OBS Day [id number] [facility] 08/09 08/09 Ezra Surgery [facility] /2014 [facility] Outpatient [id number] [facility] 08/23 Active [facility] TAMIR Ezra [facility] Inpatient [id number] Kevon 08/24 08/26 Shobonier Teqwimua /2014 [facility] OBS Day [id number] [facility] 09/17 09/17 Shobonier Surgery Banki /2014 [facility] Outpatient [id number] [facility] 09/25 Active [facility] T[facility] Ezra Outpatient [id number] [facility] 11/05 Active [facility] T[facility] Ezra Outpatient [id number] [facility] 11/11 Active [facility] T[facility] Shobonier Outpatient [id number] [facility] 11/14 Active [facility] T[facility] Ezra Outpatient [id number] [facility] 12/10 Active [facility] T[facility] Shobonier Outpatient [id number] [facility] 12/20 Active [facility] T[facility]IR Ezra Outpatient [id number] AKUVI 02/10 Active [facility] ELHOR Shobonier GBITO Outpatient [id number] [facility] 02/12 Active [facility] T[facility] Shobonier Outpatient [id number] [facility] 03/13 Active [facility] T[facility] Shobonier Outpatient [id number] [facility] 04/23 Active [facility] TAMIR [facility] Outpatient [id number] Fani 08/26 08/27 [facility] /2015 [facility] Day Surgery [id number] Fani 08/31 08/31 [facility] /2015 [facility] Inpatient [id number] Leonel Martin 09/09 09/12 [facility] /2015 [facility] Inpatient [id number] Leonel Martin 09/23 09/26 [facility] /2015 [facility] Outpatient [id number] ILYA GLORIA 09/25 Active [facility] Inpatient [id number] Kim 10/03 10/06 [facility] [id number] Perfecto 03/25 03/26 [facility] Bennetti /2017 [facility] Outpatient [id number] Fani 04/20 04/21 [facility] /2017 [facility] MNA Phone [id number] 10/04 10/06 [facility] /2017 Neuro y [facility] Inpatient [id number] Cindy 11/23 11/29 [facility] /2018 [facility] Outpt Diag [id number] Perfecto 05/17 05/18 2.16.840 Outpatient Services Justin .1.53196 Imaging 3.3.615. [place] 134 Procedures Procedure Code Date Perfomer Comments Source Upper [id number] [place] gastrointestinal 014 endoscopy Upper [id number] [facility] gastrointestinal 014 Neuro endoscopy Upper [id number] [facility] gastrointestinal 014 [place] endoscopy Upper [id number] 2.16.840.1.1 gastrointestinal 014 10553.3.615. endoscopy 134 Repair of [id number] with [facility] diaphragmatic 014 esophagojejunostomy hernia<sup>1</sup> [id number] [facility] esophagojejunostomy Neuro hernia<sup>1</sup> Repair of [id number] with [facility] diaphragmatic 014 esophagojejunostomy [place] hernia<sup>1</sup> Repair of [id number] with 2.16.840.1.1 diaphragmatic 014 esophagojejunostomy 30658.3.615. hernia<sup>1</sup> 134 Roderick [id number] [facility] fundoplication 014 [facility] [id number] [facility]14 Neuro Roderick [id number] [facility] fundoplication 014 [place] Roderick [id number] 2.16.840.1.1 fundoplication 014 14555.3.615. 134 Esophagogastroduoden 20660160 1multiple exams with [facility] oscopy<sup>1</sup> 014 esophageal dilations Esophagogastroduoden [id number] multiple exams with [facility] oscopy<sup>2</sup> 014 esophageal dilations Esophagogastroduoden 82060118 multiple exams with [facility] oscopy<sup>2</sup> 014 esophageal dilations Neuro Esophagogastroduoden 99415663 multiple exams with [facility] oscopy<sup>2</sup> 014 esophageal dilations [place] Esophagogastroduoden 05361508 multiple exams with 2.16.840.1.1 oscopy<sup>2</sup> 014 esophageal dilations 87204.3.615. 134 Exploratory [id number] [place] laparotomy 008 Operation [id number] [facility] 008 Exploratory [id number] [facility] laparotomy 008 Neuro Operation [id number] [facility] 008 Neuro Exploratory [id number] [facility] laparotomy 008 [place] Operation [id number] [facility] 008 [place] Exploratory [id number] 2.16.840.1.1 laparotomy 008 28907.3.615. 134 Operation [id number] 2.16.840.1.1 008 51420.3.615. 134 Operation [id number] [facility] 993 Operation [id number] [facility] Neuro Operation [id number] [facility] 993 [place] Operation [id number] 2.16.840.1.1 993 98594.3.615. 134 Tonsillectomy [id number] [facility] 984 Tonsillectomy [id number] [facility] 984 Neuro Tonsillectomy [id number] [facility] 984 [place] Tonsillectomy [id number] 2.16.840.1.1 984 22769.3.615. 134 Operation<sup>2</sup [id number] 2for esopheal [place] > swallowing problems, seveal done Cholecystectomy [id number] [place] Operation<sup>3</sup 710104664 for esopheal [facility] > swallowing problems, seveal done Cholecystectomy [id number] [facility] Neuro Operation<sup>3</sup 172633166 for esopheal [facility] > swallowing problems, Neuro seveal done Cholecystectomy [id number] [facility] [place] Operation<sup>3</sup [id number] for esopheal [facility] > swallowing problems, [place] seveal done Cholecystectomy 66406571 2.16.840.1.1 52014.3.615. 134 Operation<sup>3</sup [id number] for esopheal 2.16.840.1.1 > swallowing problems, 07271.3.615. 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 Patient endorsed bright red vomitus and intermittent episodes of bright red stool and dark stools for several weeks associated with abdominal pain. GI Dr. Escobedo and heme Dr. Moreno were consulted. Patie nt underwent EGD on 11/24 which showed LA Class A erosive esophagitis with mild oozing-clip placed for hemostasis, A 2cm sliding hiatal hernia with a 1-2cm segment of salmon colored mucosa was biopsied. Hgb remained stable ~ 9 and she did not require any transfusions. She was started on PPI and carafate. Patient had persistent nausea/vomiting without blood but was able to tolerate liquids. Dr. Madhu montez ecommended continuing the patient on outpatient TPN due to malnutrition. PICC line was placed and was set up for TPN. She was also started on doxycycline for sinusitis. Patient will f/u with her PCP, Dr. Leung, and Dr. Anderson for further management and biopsy results. Discharge condition: stable Physical Exam Gen: awake, alert, NAD HEENT: NC/AT, EOMI, oropharynx clear and moist, no scleral icterus Pulm: CTAB, no wheezing or crackles Cardiac: RRR, no m/r/g Abd: +BS, soft, non tender, non distended Ext: No edema or cyanosis Neuro: Oriented, sensation and strength grossly intact Skin: No rashes or lesions Discharge therapy: DC with HH TPN Medications: see med rec Diet: regular Activity: as tolerates Follow up: Dr. Anderson, Dr. Leung, PCP 1 week Cindy Jung MD [facility] Hospitalist Extracted from:Title: GI Author: Nani Brenner SPOON MAKER Date: 11/28/18 Progress Note - Daily [facility] Completed: Wednesday, NOV 28, 2018, 12:40 by Nani Brenner SPOON MAKER RM: 351 - 2W, SE C3SABINE CHAVEZ 43y (: 1975) F Attending: Cindy Jung MD Service: Internal Medicine Reason for Admission: DYSPHAGIA Working DRG: Code status: Full Code Current diet: Isolation: No Isolation/Standard Precautions Allergies: clindamycin, Zofran, codeine, cephalosporins, zolpidem, esomeprazole , morphine, meperidine, NexIUM(patient takes PROTONIX at home), Demerol HCl SUBJECTIVE still c/o n/v no further bleeding. + BMs non bloody OBJECTIVE 24hr Labs 11/28 1115 POC Performing Locatio See Note Glucose POC 130 H 11/28 0628 POC Performing Locatio See Note Glucose POC 125 H 11/28 0620 Glucose Lvl 108 H BUN 10 Creatinine Lvl 0.36 L Sodium Lvl 142 Potassium Lvl 3.9 Chloride Lvl 110 H CO2 25 AGAP 10.9 Calcium Lvl 7.9 L eGFR 132 Magnesium Lvl 2.1 Phosphorus 3.1 WBC 8.9 RBC 3.39 L Hgb 9.2 L Hct 29.3 L MCV 86.5 MCH 27.1 MCHC 31.4 L RDW 23.9 H Platelet 193 MPV 8.1 Segs 64.7 Monocytes 8.5 Lymphocytes 20.5 Eosinophils 5.9 H Basophils 0.4 Neutrophils # 5.8 Lymphocytes # 1.8 Monocytes # 0.8 Eosinophils # 0.5 11/28 0008 POC Performing Locatio See Note Glucose POC 138 H 11/27 1657 POC Performing Locatio See Note Glucose POC 113 H 11/27 1239 POC Performing Locatio See Note Glucose POC 130 H [place] still necessary (Yes/No): Line still necessary (Yes/No): Vitals Tmp(F) Pulse BP RR SpO2 FIO2 11/28 11:53 97.8 87 118/77 18 96 --- 11/28 07:48 98 72 102/63 18 96 --- 11/28 04:00 98.5 75 97/55 18 94 --- 11/28 00:00 98.0 87 127/80 18 96 --- 11/27 20:00 98.5 85 111/77 18 97 --- 24 Hr Tmax: 98.6F (37.00c) at 11/27 17:17 Vital Signs are the last 5 in the past 48 hours. Date Wt(kg) Wt(lb) Ht(cm) Ht(in) Method 11/27 98.64 217.00 Measured 11/23 (initial) 92.44 203.37 Measured 11/23 167.64 66.00 Stated I&O Record In Out Bal 11/28 24hr Tot 440 0 440 11/27 24hr Tot 1407 0 1407 Medications (23) Active Scheduled Meds (6): 11/24/18 DULoxetine 60 mg PO Daily 11/24/18 amLODIPine 10 mg PO Daily 11/26/18 diazepam (Valium) 10 mg PO Bedtime 11/26/18 doxycycline 100 mg PO [id number] 11/23/18 famotidine 20 mg IVP Q12H 11/24/18 sucralfate 1 gm PO QID-Before Meals Unscheduled Meds: None PRN Meds (15): 11/24/18 Dextrose 50% in Water IV (Dextrose 50% Syringe) 12.5 gm IVP PRN 11/24/18 Dextrose 50% in Water IV (Dextrose 50% Syringe) 25 gm IVP PRN 11/23/18 acetaminophen-hydrocodone ([place]field 10/325 oral tablet) 1 tab PO Q6H 11/25/18 acetaminophen (acetaminophen 160 mg/5 mL oral liquid) 650 mg PO Q6H 11/24/18 glucagon 1 mg IM PRN 11/24/18 hydromorphone (Dilaudid) 1 mg IV Q4H 11/24/18 insulin lispro 1 unit SUB-Q Sliding Scale 11/24/18 insulin lispro 2 unit SUB-Q Sliding Scale 11/24/18 insulin lispro 3 unit SUB-Q Sliding Scale 11/24/18 insulin lispro 4 unit SUB-Q Sliding Scale 11/24/18 insulin lispro 5 unit SUB-Q Sliding Scale 11/26/18 loperamide (Imodium A-D) 2 mg PO Q6H 11/23/18 ondansetron 4 mg IVP Q8H 11/24/18 polyethylene glycol 3350 (MiraLax) 17 gm PO ONCALL 11/28/18 promethazine + Sodium Chloride 0.9% IV 50 mL (Phenergan + Sodium Chloride 0.9% IV 50 mL) 25 mg IVPB Q4H 153 ml/hr One Time Meds: None Continuous Infusions (2): 11/27/18 Adult Parenteral Nutrition Standard - Central (TPN) 2,050 mL 2,050 mL 83.3 ml/hr 11/28/18 Adult Parenteral Nutrition Standard - Central (TPN) 2,050 mL 2,050 mL 83.3 ml/hr General: No acute distress. HENT: Normocephalic Neck: Supple, Non-tender. Respiratory: Lungs are clear to auscultation, Respirations are non-labored Cardiovascular: Normal rate, Regular rhythm, No murmur, Gastrointestinal: Soft, Non-tender, Non-distended. Integumentary: Warm, Dry, [place]. Neurologic: Alert, Oriented x 3 Psychiatric: Cooperative, Appropriate mood and affect. IMPRESSION 1. Hematemesis, no further episodes -s/p EGD 11/24/18- LA Class A erosive esophagitis with mild mooxing noted-clip placed for hemostasis, A 2cm sliding hiatal hernia with a 1-2cm segment of salmon colored mucosa seen-Muir's vs Intestinal Metaplasia of the Cardia-Biopsied Post surgical anatomy consistent with yrejkhuy-zoribduagbu-wg evidence of any small bowel ulceration. The jejuno-jejunostomy was not reached 2. Anemia, acute on chronic- stable h/h 3 . h/o esophagojejunostomy 4. H/o Scleroderma 5. ? h/o Crohns disease 6. Esophageal dysmotility - barium esophagram noted 7. Chronic Nausea RECOMMENDATIONS 1. on H2 blockers and Carafate QID x 2 weeks 2. Monitor for recurrent bleeding 3. Antiemetics PRN 4. Follow up on bx 5. Plan for d/c on home TPN 6. Follow up in GI clinic in 2 weeks after d/c d/w pt GI ATTENDING I have examined the patient with the SPOON MAKER and confirmed the essential components of history, physical examination, diagnosis and treatment plan. I agree with the patient's care as documented by the SPOON MAKER, and amended as needed herein by me. Melecio Escobedo MD GI Attending Extracted from:Title: Clinical Document Author: Fani Leung MD Date: 11/24/18 Patient well known to our service, with history of scleroderma and esophageal dysmotility who underwent a Maggi- en- y esophagojejnunoty in 2013, she presented with upper GI bleeding about a month ago, f ainted at home, and was then admitted to an outside hospital and was found to have esophagitis at the level of the distal esophagus, received 3 units of PRBC , and was then discharged. She presented to our office yesterday with complaints of hematemesis, nausea, inability to eat as the result of severe postprandial abdominal pain and got admitted to the hospital. Videoesophagram yesterday showed esophageal dysmotility without any obstruction at the level of the gastroesophageal junction. EGD today showed erosive esophagitis requiring clip for hemostasis and patent anastomosis. PICC line was placed Plan 1. TPN that will be started tonight 2. Small bowel follow through 3. CT scan of C/A/P with IV and PO contrast 4. Home health for temporary TPN at home 5. Possible D/C home on Wednesday Extracted from:Title: Clinical Document Author: Jhonny Ch MD Date: 11/23/18 Date of admission: 11/23/2018. Reason for admission 1. Hematemesis. 2. Scleroderma and esophageal dysmotility on barium swallow 11/23. History of present illness Ms. dexter is a 43-year-old woman with scleroderma, multiple abdominal surgeries and esophageal surgeries, hypertension and Crohn's disease who comes to the hospital at the request of her surgeon fo r evaluation of hematemesis and significant acid reflux-like symptoms. Patient reports that for the past several weeks she has been having intermittent episodes of bright red vomitus and intermittent e pisodes of bright red stool and dark stools. She reports that she was recently admitted to the ICU approximately 4 weeks ago for significant GI bleeding. Her last bleeding episode was yesterday where she had a episode of hematemesis. She denies having any dark tarry stools at this time. Denies having any chest pain or palpitations. Denies any syncopal episodes during this time. However reports having significant abdominal pain. Patient is specifically requesting a promethazine and Dilaudid at this time. Patient reports that she is allergic to mul tiple things and cannot take any other medications as listed. Patient denies any recent fever or chills. But also reports that she "never" have fevers. Past medical history 1. Scleroderma 2. Hypertension 3. Crohn's disease 4. Dysphagia. Medications At Home: Please see admission medicine regulation form. Past surgical history 1. Multiple esophageal and open abdominal surgeries for strictures (Strictures ) 2. Abdominal Maggi-en-Y surgery Social history 1. I denies any tobacco or alcohol use. Allergies: Multiple allergies please see EMR. Review system: As per HPI. Family history: Reviewed but noncontributory. Physical examination Vitals: Blood pressure 113/75, temperature 98.1, pulse of 76, respiratory 16, 100% on room air. Gen: AAOX3, NAD Neuro: Moving all extremities well CV: RRR, S1 and S2 Lung: CTA-B Abdomen: Non-distended, non-tender, no rebound or gaurding, bowel sounds are present. Midline abdominal surgery wound is well healed and non-tender. : no supraputic region tenderness. No CVA region tenderness. EXT: no peripheral edema. Skin: no rashes or other skin color changes. Diagnostic studies IMPRESSION: 1. Mild to moderate dysmotility and delay with reflux greatest in the prone and LPO positions. 2. Normal transit to the small bowel in this patient post Maggi-en-Y. Laboratory data Ordered pending at this time. Assessment and plan Ms. Dexter is a 43-year-old woman who comes in for evaluation of hematemesis, severe reflux symptoms and esophageal dysmotility on outpatient evaluation. She has scleroderma. 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 Plan Serial hemoglobin checks and IV fluids. No overt GI Bleeding seen by me or nursing staff. Monitor for this. Will place NG tube if seen. PPI allergy, begin famotidine twice daily. Obtain CBC, LFTs and INR at this time. GI consultation have been made. Thoracic surgery been consulted also. Hematology consultation made. Transfuse if hemoglobin below 7. Promethazine for nausea control as requested by patient. Thiamine/folate as patient has gastric bypass surgery. DVT prophylaxis: SCDs Disposition: Likely 12 midnights. Extracted from:Title: Clinical Document 10/06/2016 [facility] Author: Thanh Bae MD Date: 10/06/16 [facility] INFECTIOUS DISEASE PROGRESS NOTE Olinda Ziegler M.D. Syed W. Hasan, M.D. REASON FOR CONSULTATION and FOLLOW-UP: Right Hip Pain SUBJECTIVE: INTERVAL HISTORY: No acute events. ROS: CONST: No fever or chills OBJECTIVE: PHYSICAL EXAMINATION: Vitals Tmp(F) Pulse BP RR SpO2 FIO2 10/06 07:32 97.6 53 106/72 18 97 --- 10/06 04:00 97.6 64 109/71 18 97 --- 10/06 00:00 97.9 68 111/76 18 98 --- 10/05 20:00 97.8 57 119/75 18 98 --- 10/05 15:43 98.7 60 95/63 18 97 --- 24 Hr Tmax: 98.7F (37.06c) at 10/05 15:43 Vital Signs are the last 5 in the past 48 hours. GEN: No acute distress, conversant HEENT: Sclera white; No thrush or erythema; Moist membranes LUNG: Clear to auscultation bilaterally; No wheeze, rhonchi, or crackles HEART: RRR; +S1/S2; No murmurs, rubs, or gallops ABD: +BS; Soft; Non-distended; mild TTP EXT: No clubbing, cyanosis, or edema; tenderness upon RLE movement Lines, Tubes, and Drains: 10/05/2016 21:48 Peripheral Lines: Forearm Left 22 gauge Over the needle catheter MEDICATIONS: Scheduled Meds (18): 10/04/16 FLUoxetine 40 mg PO Daily 10/04/16 amLODIPine 10 mg PO Daily 10/03/16 baclofen 10 mg PO TID 10/04/16 cetirizine (ZyrTEC) 10 mg PO Daily 10/03/16 cholecalciferol (Vitamin D3) 50,000 IntlUnit PO qWeek 10/03/16 cyanocobalamin (Vitamin B12) 1,000 microgram IM qWeek 10/03/16 dicyclomine 20 mg PO QID 10/03/16 docusate (docusate sodium 100 mg oral capsule) 100 mg PO BID 10/04/16 escitalopram (Lexapro) 20 mg PO Daily 10/04/16 fluticasone nasal (Flonase 0.05 mg/inh nasal spray) 2 spray NASAL Daily 10/04/16 folic acid 1 mg PO Daily 10/04/16 meloxicam (Mobic) 15 mg PO Daily 10/06/16 methotrexate 5 mg PO QTue 10/03/16 naproxen 500 mg PO [id number] 10/04/16 non-formulary (Vitamin A) 1 tab PO Daily 10/03/16 non-formulary (Lidocaine topical spray 2%) 1 spray TOP TID 10/04/16 tamsulosin 0.4 mg PO Daily 10/03/16 topiramate 100 mg PO BID Allergies (9) Active Reaction Influenza Virus Vaccine None documented codeine None documented cephalosporins None documented zolpidem None documented esomeprazole None documented morphine None documented meperidine None documented NexIUM patient takes PROTONIX at home Demerol HCl None documented LABORATORY (All labs have been reviewed.): Labs (Last four charted values) WBC 4.1 (OCT 06) 4.7 (OCT 05) 7.6 (OCT 04) 5.6 (OCT 03) Hgb L 8.1 (OCT 06) L 8.4 (OCT 05) L 8.4 ( OCT 04) L 8.6 (OCT 03) Hct L 25.1 (OCT 06) L 26.2 (OCT 05) L 27.0 ( OCT 04) L 27.6 (OCT 03) Plt 174 (OCT 06) 174 (OCT 05) 172 (OCT 04) 176 (OCT 03) Na 144 (OCT 06) 143 (OCT 05) 139 (OCT 04) 139 (OCT 03) K 3.8 (OCT 06) 4.0 (OCT 05) L 3.1 (OCT 04 ) 3.5 (OCT 03) CO2 L 19 (OCT 06) L 21 (OCT 05) L 21 (OCT 04 ) L 23 (OCT 03) Cl H 115 (OCT 06) H 114 (OCT 05) 108 (OCT 04) 109 (OCT 03) Cr L 0.41 (OCT 06) 0.50 (OCT 05) 0.72 (OCT 04) 0.50 (OCT 03) BUN 7 (OCT 06) 9 (OCT 05) 8 (OCT 04) 7 (OCT 03) Glucose Random 79 (OCT 06) H 108 (OCT 05) H 178 (OCT 04 ) 78 (OCT 03) Mg 1.9 (OCT 03) Phos 2.8 (OCT 03) Ca L 7.4 (OCT 06) L 7.5 (OCT 05) L 7.1 ( OCT 04) L 7.8 (OCT 03) PT H 15.4 (OCT 04) INR H 1.19 (OCT 04) PTT H 39.3 (OCT 04) Alk Phos: 345 unit/L High (10/06/16 05:43:14) A/G Ratio: 0.5 Low (10/06/16 05:43:14) ALT: 88 unit/L High (10/06/16 05:43:14) Albumin Lvl: 2.0 g/dL Low (10/06/16 05:43:14) Bili Direct: 0.1 mg/dL (10/04/16 06:23:34) Bili Total: 0.2 mg/dL (10/06/16 05:43:14) Total Protein: 5.9 g/dL Low (10/06/16 05:43:14) Globulin: 3.9 g/dL (10/06/16 05:43:14) AST: 69 unit/L High (10/06/16 05:43:14) Sed Rate: 52 mm/hr High (10/03/16 12:34:50) MICROBIOLOGY: All cultures have been reviewed. IMAGING/TESTS: Recent studies have been reviewed. ASSESSMENT and PLAN: 40 yo F presents with: * Right Hip Pain * Right Hip Tendinopathy * Ruled-out R Hip Septic Arthritis * Diarrhea, Resolved * Crohn's Disease * Scleroderma/CREST - Afebrile. No leukocytosis. - MRI with tendinopathy or partial tear. No ortho intervention needed. - Mild fever and inflammatory markers may be related to Scleroderma or Crohn' s. - No signs of infection. Monitor off antibiotics. - OK to DC from ID standpoint. ANTIMICROBIALS: None Extracted from:Title: Clinical Document Author: Thanh Bae MD Date: 10/03/16 [facility] INFECTIOUS DISEASE CONSULTATION NOTE Thanh Bae M.D. Olinda Estrada M.D. REFERRING PHYSICIAN: Dr. Kim Rodriguez REASON FOR CONSULTATION: Hip Infection CHIEF COMPLAINT: Hip pain HISTORY OF PRESENT ILLNESS: Ms. Sabine Dexter is a 40 year old lady, with history of Crohn's disease, scleroderma and CREST, who was recently admitted last week for retrieval of migrated esophageal stent. She was at home when sh e developed acute right hip pain that had become progressively worse when she went shopping yesterday. She had been running fever of 103 all day prior to admission, but has been afebrile in the hospital . She also notes increase in diarrhea and some abdominal pain. She also notes some trouble with urination but no burning or frequency. REVIEW OF SYSTEMS: CONSTITUTIONAL: + fever, chills, or night sweats. EYES: Denies blurry vision or eye pain. ENT: Denies ear pain, nasal drainage, or sore throat. RESPIRATORY: Denies shortness of breath or cough. CARDIOVASCULAR: Denies chest pain or palpitations. GASTROINTESTINAL: Denied nausea, vomiting, + diarrhea, or abdominal pain. GENITOURINARY: Denies dysuria, frequency, or urgency. + trouble urinating MUSCULOSKELETAL: + hip pain NEUROLOGIC: Denies any focal weakness or headaches. SKIN: No rashes or lesions. ENDOCRINE: Denies history of polyuria, polydipsia, heat or cold intolerance. HEME/LYMPH: Denies bleeding, bruising, or swollen glands. PSYCH: No depression or anxiety PAST MEDICAL/SURGICAL HISTORY: Migraines Kidney stones Cyst of kidney Tachycardia Bradycardia Colitis Bradycardia Difficult airway H/O degenerative disc disease Upper gastrointestinal endoscopy: 07/03/14 Repair of diaphragmatic hernia: 06/03/14 Roderick fundoplication: 05/2014 Esophagogastroduodenoscopy: 05/07/14 Operation: 2007 Exploratory laparotomy: 2007 Operation: 1992 Tonsillectomy: 1983 Operation Cholecystectomy SOCIAL HISTORY: No tobacco use Occasional alcohol use FAMILY HISTORY: Father: Bipolar disorder; Heart disease; High blood pressure; Sleep apnea; Type 2 diabetes mellitus Mother: Acid reflux; Diverticulitis; Heart disease; Lupus; Rheumatoid arthritis ; Thyroid disease; Type 2 diabetes mellitus Sister: Acid reflux; Anemia; Bipolar disorder; Cancer; Diverticulitis; Eczema; Lupus; Ovarian cancer, disseminated; Seizure Grandparent: Congestive heart failure PHYSICAL EXAMINATION: Vitals Tmp(F) Pulse BP RR SpO2 FIO2 10/03 16:20 97.4 61 91/54 17 96 --- 10/03 13:00 97.3 66 124/74 18 --- --- 10/03 11:21 97.6 60 92/57 19 95 --- 10/03 09:04 97.6 --- ----- -- --- --- 10/03 07:42 97.9 65 94/56 18 96 --- 24 Hr Tmax: 97.9F (36.61c) at 10/03 07:42 Vital Signs are the last 5 in the past 48 hours. GEN: No acute distress, conversant HEENT: Sclera white; No thrush or erythema; Moist membranes LUNG: Clear to auscultation bilaterally; No wheeze, rhonchi, or crackles HEART: RRR; +S1/S2; No murmurs, rubs, or gallops ABD: +BS; Soft; Non-distended; mild TTP EXT: No clubbing, cyanosis, or edema; tenderness upon RLE movement NEURO: Alert and oriented; PERRL; No gross focal deficits SKIN: No rashes, ecchymosis, or lesions PSYCH: Appropriate affect Lines, Tubes, and Drains: 10/03/2016 05:00 Peripheral Lines: Antecubital Right 22 gauge Over the needle catheter MEDICATIONS: Scheduled Meds (17): 10/04/16 FLUoxetine 40 mg PO Daily 10/04/16 amLODIPine 10 mg PO Daily 10/03/16 baclofen 10 mg PO TID 10/04/16 cetirizine 10 mg PO Daily 10/03/16 cholecalciferol (Vitamin D3) 50,000 IntlUnit PO qWeek 10/03/16 cyanocobalamin (Vitamin B12) 1,000 microgram IM qWeek 10/03/16 dicyclomine 20 mg PO QID 10/04/16 escitalopram (Lexapro) 20 mg PO Daily 10/04/16 fluticasone nasal (Flonase 0.05 mg/inh nasal spray) 2 spray NASAL Daily 10/04/16 folic acid 1 mg PO Daily 10/04/16 meloxicam 15 mg PO Daily 10/06/16 methotrexate 5 mg PO QTue 10/03/16 naproxen 500 mg PO [id number] 10/04/16 non-formulary (Vitamin A) 1 tab PO Daily 10/03/16 non-formulary (Lidocaine topical spray 2%) 1 spray TOP TID 10/04/16 tamsulosin 0.4 mg PO Daily 10/03/16 topiramate 100 mg PO BID ALLERGIES: Allergies (9) Active Reaction Influenza Virus Vaccine None documented codeine None documented cephalosporins None documented zolpidem None documented esomeprazole None documented morphine None documented meperidine None documented NexIUM patient takes PROTONIX at home Demerol HCl None documented LABORATORY (Reviewed): Labs (Last four charted values) WBC 5.6 (OCT 03) Hgb L 8.6 (OCT 03) Hct L 27.6 (OCT 03) Plt 176 (OCT 03) Na 139 (OCT 03) K 3.5 (OCT 03) CO2 L 23 (OCT 03) Cl 109 (OCT 03) Cr 0.50 (OCT 03) BUN 7 (OCT 03) Glucose Random 78 (OCT 03) Mg 1.9 (OCT 03) Phos 2.8 (OCT 03) Ca L 7.8 (OCT 03) Alk Phos: 408 unit/L High (10/03/16 11:43:35) A/G Ratio: 0.8 (10/03/16 11:43:35) ALT: 126 unit/L High (10/03/16 11:43:35) Albumin Lvl: 2.7 g/dL Low (10/03/16 11:43:35) Bili Total: 0.7 mg/dL (10/03/16 11:43:35) Total Protein: 6.0 g/dL Low (10/03/16 11:43:35) Globulin: 3.3 g/dL (10/03/16 11:43:35) AST: 97 unit/L High (10/03/16 11:43:35) Sed Rate: 52 mm/hr High (10/03/16 12:34:50) MICROBIOLOGY (Reviewed): Urine: Pending IMAGING (Reviewed): Hip: Negative right hip. ASSESSMENT and PLAN: 40 yo F presents with: * Right Hip Pain * R/O R Hip Septic Arthritis * R/O R Hip Avascular Necrosis * Crohn's Disease * Diarrhea, R/O C.diff * Scleroderma/CREST - Patient presents with right hip pain but has remained afebrile in hospital without leukocytosis. Hip xrays unrevealing, awaiting MRI for further evaluation. Will give dose of vancomycin in the meantim e due to reported fever at home. Her inflammatory markers are elevated which may be related to hip versus her other inflammatory diseases of which she is currently having diarrhea. Will follow-up C.diff. Continue to monitor. Extracted from:Title: Clinical Document 09/26/2016 [facility] Author: Fani Leung MD Date: 09/26/16 PATIENT NAME: SABINE DEXTER DATE OF OPERATION/PROCEDURE: 09/25/2016 *_*_* PREOPERATIVE DIAGNOSES: 1. Scleroderma. 2. Status post open placement of the Spring band in 1992. 3. Status post redo laparotomy and removal of the Spring band in 2007. 4. Status post laparoscopy converted to laparotomy and a Kumar fundoplication for gastroesophageal reflux disease in 08/2013 5. Recurrent paraesophageal hiatal hernia with symptoms of dysphagia, regurgitation and nocturnal cough. 6. S/p redo laparotomy and gastric preserving, Maggi-en-Y esophagojejunostomy on 06/04/2014. 7. Anastomotic stricture s/p dilations 8. Heartburn, regurgitation and dysphagia 9. S/P upper endoscopy placement of 12 cm length and 18 mm diameter Endochoice esophageal stent on 08/09/2015 10. S/P Upper endoscopy removal of 12 cm length and 18 mm diameter Endochoice esophageal stent 09/17/2015 12. Recurrent symptoms of regurgitation and dysphagia 13. Upper endoscopy placement of 12 cm length and 23 mm diameter Endomaxx esophageal stent on 08/31/2016 14. Migrated stent in the jejunum POSTPROCEDURE DIAGNOSES: 1. Scleroderma. 2. Status post open placement of the Spring band in 1992. 3. Status post redo laparotomy and removal of the Spring band in 2007. 4. Status post laparoscopy converted to laparotomy and a Kumar fundoplication for gastroesophageal reflux disease in 08/2013. 5. Recurrent paraesophageal hiatal hernia with symptoms of dysphagia, regurgitation and nocturnal cough. 6. S/p redo laparotomy and gastric preserving, Maggi-en-Y esophagojejunostomy on 06/04/2014. 7. Anastomotic stricture s/p dilations 8. Heartburn, regurgitation and dysphagia 9. S/P upper endoscopy placement of 12 cm length and 18 mm diameter Endochoice esophageal stent on 08/09/2015 10. S/P Upper endoscopy removal of 12 cm length and 18 mm diameter Endochoice esophageal stent 09/17/2015 12. Recurrent symptoms of regurgitation and dysphagia 13. Upper endoscopy placement of 12 cm length and 23 mm diameter Endomaxx esophageal stent on 08/31/2016 14. Migrated stent in the jejunum PRIMARY PROCEDURE: Upper endoscopy removal of migrated 12 cm length and 23 mm diameter Endomaxx esophageal stent SURGEON: Fani Leung [employer] PIL[employer]: Rahat Cervantes INDICATION FOR PROCEDURE: The patient is a 38-year-old female with history of scleroderma and morbid obesity who underwent a laparotomy for placement of a Spring band in 1992. She then required removal of the Spring band via a laparotomy in 2007. Subsequently, patient presented with severe symptoms of gastroesophageal reflux disease with stricture and underwent multiple dilations. She then underwent a laparoscopy converted t o laparotomy and a Kumar fundoplication at an outside hospital in 08/2013. Patient did well for about 4 months and then presented with recurrent symptoms of dysphagia, regurgitation, nocturnal cough and pneumonia. Upper endoscopy showed distal esophagitis, no evidence of fundoplication, no visible stricture, and a paraesophageal hiatal hernia. The biopsy of the antegrade squamocolumnar junction showed reflux esophagitis. Esophageal motility study showed 70% failed contractions in the esophageal body and defective LES by length and pressure. Video esophagram showed mild dysmotility with passage of li quids and severe dysmotility with passage of solids from the esophagus into the stomach, and a paraesophageal hiatal hernia. She underwent redo laparotomy and gastric preserving , Maggi-en-Y esophagojeju nostomy on 06/04/2014.She presented with anastomotic stricture and required dilations. She complained of dysphagia, regurgitation and nocturnal cough. She underwent an upper endoscopy and placement of 1 2 cm length and 18 mm diameter Endochoice esophageal stent on 08/09/2015 and removal of the stent on 09/17/2015. She did well for about 4 months and now presents with progressive dysphagia and regurgita tion. She underwent an upper endoscopy placement of 12 cm length and 23 mm diameter Endomaxx esophageal stent on 08/31/2016. She did well until about 5 days ago when she presented with signs and symptom s of bowel obstruction and was found to have a migrated stent in the proximal jejunum. Our plan was to perform an upper endoscopy and removal of the stent. The risks of the procedure including infection, bleeding, cardiac event, bowel perforation , the need for laparoscopy, possible laparo acrolyn for removal of the stent and were all explained to the patient. She understood and agreed to proceed. PROCEDURE: The patient was brought to the operating room and was placed on the operating table in the supine position. After undergoing general endotracheal anesthesia an upper endoscopy was performed. There was no evidence of distal esophagitis. There was no retained food, saliva or bile in the esophagus. The anastomosis was at 36 cm and it was patent without evidence of stricture. There were no granulation t issues. The scope was advanced in the jejunal limb and the stent was removed without any difficulty. The scope as reinserted and there was no evidence of perforation. The patient tolerated the procedure well and was extubated and transferred to the post anesthesia recovering room without any complications. I was present for the entire procedure. Extracted from:Title: Clinical Document Author: Leonel Salazar DO Date: 09/26/16 Progress Daily [facility] Completed: Sep, 08:54 by Leonel Salazar DO RM: 342 - 1P, SE SABINE MILLIGAN 40y (: 1975) F Attending: Leonel Salazar DO Service: Internal Medicine Reason for Admission: VOMITING Working DRG: Inflammatory bowel disease w CUSTODIAL Code status: Full Code [Ordered] Current diet: Isolation: None Documented Allergies: Influenza Virus Vaccine, codeine, cephalosporins, zolpidem, esomeprazole, morphine, meperidine, NexIUM(patient takes PROTONIX at home), Demerol HCl SUBJECTIVE Patient seen and examined. Events noted overnight. Labs/Images reviewed tolerating diet OBJECTIVE Labs (Last four charted values) WBC 4.5 (SEP 19) L 2.8 (NOV 18) 4.3 (NOV 17 ) 7.3 (NOV 16) Hgb L 9.9 (SEP 19) L 9.6 (NOV 18) L 9.7 ( NOV 17) L 10.6 (NOV 16) Hct L 31.2 (NOV 19) L 29.6 (NOV 18) L 30.4 ( NOV 17) L 32.8 (NOV 16) Plt 167 (NOV 19) 154 (NOV 18) 173 (NOV 17) 243 (NOV 16) Na 141 (NOV 19) 141 (NOV 18) 140 (NOV 17) 140 (NOV 16) K 3.6 (SEP 19) 3.7 (NOV 18) L 3.4 (NOV 17 ) L 3.4 (NOV 16) CO2 24 (NOV 19) L 21 (NOV 18) L 22 (NOV 17) L 21 (NOV 16) Cl H 111 (NOV 19) H 110 (NOV 18) 109 (NOV 17) 108 (NOV 16) Cr 0.54 (NOV 19) L 0.47 (NOV 18) 0.51 (NOV 17) 0.63 (NOV 16) BUN 10 (SEP 19) 8 (NOV 18) 7 (NOV 17) 19 (NOV 16) Glucose Random H 104 (NOV 19) 91 (NOV 18) 91 (NOV 17) 93 (NOV 16) Mg 1.9 (NOV 18) L 1.7 (NOV 17) 1.8 (NOV 16 ) Phos 2.6 (NOV 16) Ca L 7.7 (SEP 19) L 7.4 (NOV 18) L 7.4 ( NOV 17) L 7.6 (NOV 16) PT H 15.9 (SEP 17) INR H 1.24 (SEP 17) PTT 26.7 (SEP 17) ASSESSMENT and EXAM Gen: NAD, obese HEENT: NC/AT, PERRLA, oral area clear and moist Neck: No LAD, No JVD, trachea midline Chest: CTAB, no c/w/r CV: RRR, S1, S2 GI: +BS, S, NT, ND, No organomegaly Ext: no c/c/e Neuro: AOx3, no gross deficits noted Skin: No notable rashes PLAN and TREATMENT tolerating diet resuem home TPN dc home today LFT's trending down d/w pt DIAGNOSES and PROBLEMS migrated esophageal stent intractable nausea and vbomiting dehydration failure to thrive scleroderma severe protein caloric malnutrition GERD Ready for Discharge (Yes/No)? De Leon still necessary (Yes/No): Line still necessary (Yes/No): 24hr Labs 09/26 0448 Sodium Lvl 141 Potassium Lvl 3.6 Chloride Lvl 111 H CO2 24 AGAP 9.6 L Glucose Lvl 104 H Creatinine Lvl 0.54 BUN 10 B/C Ratio 19 Total Protein 6.7 Albumin Lvl 2.6 L Globulin 4.1 A/G Ratio 0.6 L Calcium Lvl 7.7 L ALT 235 H AST 94 H Alk Phos 452 H Bili Total <0.1 L eGFR 118 WBC 4.5 RBC 3.89 L Hgb 9.9 L Hct 31.2 L MCV 80.1 MCH 25.3 L MCHC 31.6 L RDW 17.2 H Platelet 167 MPV 8.3 Segs 52.1 Monocytes 11.1 Lymphocytes 30.3 Eosinophils 6.2 H Basophils 0.3 Segs-Bands # 2.3 Lymphocytes # 1.4 Monocytes # 0.5 Eosinophils # 0.3 09/25 0517 S Preg Negative 09/24 0453 FFP product Product available Vitals Tmp(F) Pulse BP RR SpO2 FIO2 09/26 07:41 97.5 55 96/59 16 96 --- 09/26 04:00 98.2 65 103/57 16 97 --- 09/26 00:00 98.0 74 105/69 16 97 --- 09/25 20:00 98.3 66 109/63 16 96 --- 09/25 15:34 98.0 69 95/65 15 100 --- 24 Hr Tmax: 98.3F (36.83c) at 09/25 20:00 Vital Signs are the last 5 in the past 48 hours. Date Wt(kg) Wt(lb) Ht(cm) Ht(in) Method 09/23 (initial) 80.05 176.10 Measured 09/23 167.64 66.00 Stated I&O Record In Out Bal 09/25 24hr Tot 3636 0 3636 09/24 24hr Tot 2976 0 2976 Medications (24) Active Scheduled Meds (9): 09/24/16 FLUoxetine 40 mg PO Daily 09/24/16 amLODIPine 10 mg PO Daily 09/23/16 baclofen 10 mg PO TID 09/24/16 cetirizine 10 mg PO Daily 09/24/16 escitalopram (Lexapro) 20 mg PO Daily 09/24/16 folic acid 1 mg PO Daily 09/24/16 heparin 5,000 unit SUB-Q Q12H 09/24/16 tamsulosin 0.4 mg PO Daily 09/23/16 topiramate 100 mg PO BID Unscheduled Meds (1): 09/24/16 levofloxacin (Levaquin) 500 mg IV ONCALL 100 ml/hr PRN Meds (7): 09/23/16 acetaminophen-hydrocodone (acetaminophen-hydrocodone 325 mg-5 mg oral tablet) 2 tab PO Q4H 09/23/16 acetaminophen 650 mg PO Q4H 09/25/16 diazepam 10 mg PO BID 09/23/16 docusate 100 mg PO BID 09/23/16 fluticasone nasal (Flonase 0.05 mg/inh nasal spray) 2 spray NASAL Daily 09/23/16 hydromorphone (Dilaudid) 1 mg IVP Q4H 09/23/16 promethazine + sodium chloride 0.9% INJ 50 mL (Phenergan + sodium chloride 0.9% INJ 50 mL) 12.5 mg IVPB Q8H 151.5 ml/hr One Time Meds (5): 09/25/16 (Completed) acetaminophen (Ofirmev) 1,000 mg IV ONCE 400 ml/hr (Completed) fentaNYL (fentaNYL (ANES)) IV ONCE (Completed) ondansetron (ondansetron (ANES)) IV ONCE (Completed) propofol (propofol (ANES)) IV ONCE (Completed) rocuronium (rocuronium (ANES)) IV ONCE Continuous Infusions (2): 09/24/16 D5NS 1,000 mL 1,000 mL 42 ml/hr 09/25/16 TPN, adult solution 2,050 mL 2,050 mL 83 ml/hr Extracted from:Title: Clinical Document 09/12/2016 [facility] Author: Leonel Salazar DO Date: 11/4/16 Progress Daily [facility] Completed: Sep, 13:37 by Leonel Salazar DO RM: 357 - 1P, SE C3SABINE CHAVEZ 40y (: 1975) F Attending: Leonel Salazar DO Service: Internal Medicine Reason for Admission: SEVERE PROTEIN CALORIC NUTRITION UNABLE TO TOLERATE Working DRG: Other disorders of nervous system w/o CC/CUSTODIAL Code status: None Specified=FULL CODE Current diet: Isolation: None Documented Allergies: Influenza Virus Vaccine, codeine, cephalosporins, zolpidem, esomeprazole, morphine, meperidine, NexIUM(patient takes PROTONIX at home), Demerol HCl SUBJECTIVE Patient seen and examined. Events noted overnight. Labs/Images reviewed doing ok so far, stil awaiting for insurance for TPN approval OBJECTIVE Labs (Last four charted values) WBC 6.3 (SEP 10) 6.7 (SEP 09) Hgb L 10.6 (SEP 10) L 10.3 (SEP 09) Hct L 32.8 (SEP 10) L 33.3 (SEP 09) Plt 199 (SEP 10) 192 (SEP 09) Na 142 (SEP 10) 138 (SEP 09) K 4.0 (SEP 10) 3.5 (SEP 09) CO2 L 20 (SEP 10) L 19 (SEP 09) Cl H 110 (SEP 10) 109 (SEP 09) Cr 0.51 (SEP 10) 0.74 (SEP 09) BUN L 6 (SEP 10) 11 (SEP 09) Glucose Random H 105 (SEP 10) H 131 (SEP 09) Mg 2.0 (SEP 09) Phos L 2.4 (SEP 09) Ca L 7.7 (SEP 10) L 8.0 (SEP 09) PT 14.2 (SEP 09) INR 1.08 (SEP 09) PTT 26.6 (SEP 09) ASSESSMENT and EXAM Gen: NAD, Alert, Awake HEENT: NC/AT, PERRLA, oral area clear and moist Neck: No LAD, No JVD, trachea midline Chest: CTAB, no c/w/r CV: RRR, S1, S2 GI: +BS, S, NT, ND, No organomegaly Ext: no c/c/e Neuro: AOx3, no gross deficits noted Skin: No notable rashes PLAN and TREATMENT cont with TPN noted esophagram results - pt has stsnt in TPN - pt willneed this given pt has lost significant weight over the last few months - was 310lbs in 2013 and now 186 lbs pt is not able to consume enough calories and has been decreaign in weight. pt willneed recontructin surgery for her gatric issue sin the near future and given this time pt is not optimally fit nutri tinally for this given surgery by Dr. Leung which should happen in the next 4- 6 weeks. TPN will give her the best chance to go thorugh this surgery and pt has failed any oral intake with supplements an d not able to tolerate any solid diet or even consume enough calories for survival. Pt is at risk of severe malnutrition and malnourishment if she continues onthis pathway of not TPN. PEG or PEJ is contraindicated per surgery at this time HH being set up for TPN - still awaiting for insurance approval labs as needed appreciate input from nutrition MTX levels normal- pt already finished treatment of leucovorin DIAGNOSES and PROBLEMS 1. Severe dysphagia symptoms to mainly solids. 2. Severe protein calorie malnutrition. 3. Methotrexate toxicity secondary to 4 times the normal injection that she gets 4. Scleroderma. 5. Severe gastroesophageal reflux. Ready for Discharge (Yes/No)? De Leon still necessary (Yes/No): Line still necessary (Yes/No): (no lab data in past 24 hours) Vitals Tmp(F) Pulse BP RR SpO2 FIO2 09/11 11:13 98.5 70 96/61 -- 97 --- 09/11 07:34 98.5 61 107/71 17 96 --- 09/11 04:00 98.5 70 111/72 18 98 --- 09/11 00:00 99.0 67 112/71 18 96 --- 09/10 20:00 98.7 73 99/63 18 95 --- 24 Hr Tmax: 99.0F (37.22c) at 09/11 00:00 Vital Signs are the last 5 in the past 48 hours. Date Wt(kg) Wt(lb) Ht(cm) Ht(in) Method 09/10 75.00 165.00 Measured 09/09 (initial) 75.00 165.00 Estimated 09/09 167.64 66.00 Stated I&O Record In Out Bal 09/11 24hr Tot 4 0 4 09/10 24hr Tot 3508 0 3508 Medications (14) Active Scheduled Meds (7): 09/10/16 amLODIPine 10 mg PO Daily 09/09/16 baclofen 10 mg PO TID 09/10/16 diazepam (Valium) 10 mg PO Bedtime 09/10/16 escitalopram (Lexapro) 10 mg PO Daily 09/09/16 famotidine (Pepcid) 20 mg IVP Q12H 09/10/16 meloxicam 15 mg PO Daily 09/09/16 topiramate 100 mg PO BID Unscheduled Meds: None PRN Meds (6): 09/09/16 acetaminophen-hydrocodone (acetaminophen-hydrocodone 325 mg-7.5 mg/15 mL oral solution) 10 mL PO Q6H 09/09/16 acetaminophen (Tylenol) 650 mg PO Q6H 09/09/16 hydromorphone (Dilaudid) 0.5 mg IV Q3H 09/10/16 loperamide (Imodium A-D) 2 mg PO Q4H 09/09/16 ondansetron 4 mg IVP Q6H 09/09/16 sodium chloride (Saline Flush 0.9%) 10 ml IVP PRN One Time Meds: None Continuous Infusions (1): 09/10/16 TPN, adult solution 2,050 mL 2,050 mL 83 ml/hr Extracted from:Title: Clinical Document 09/17/2015 [facility] Author: Fani Leung MD Date: 09/17/15 PATIENT NAME: SABINE DEXTER DATE OF OPERATION/PROCEDURE: 09/17/2015 *_*_* PREOPERATIVE DIAGNOSES: 1. Scleroderma. 2. Status post open placement of the Spring band in 1992. 3. Status post redo laparotomy and removal of the Spring band in 2007. 4. Status post laparoscopy converted to laparotomy and a Kumar fundoplication for gastroesophageal reflux disease in 08/2013 5. Recurrent paraesophageal hiatal hernia with symptoms of dysphagia, regurgitation and nocturnal cough. 6. S/p redo laparotomy and gastric preserving , Maggi-en-Y esophagojejunostomy on 06/04/2014. 7. Anastomotic stricture s/p dilations 8. Heartburn, regurgitation and dysphagia 9. S/P upper endoscopy placement of 12 cm length and 18 mm diameter Endochoice esophageal stent on 08/09/2015 POSTPROCEDURE DIAGNOSES: 1. Scleroderma. 2. Status post open placement of the Spring band in 1992. 3. Status post redo laparotomy and removal of the Spring band in 2007. 4. Status post laparoscopy converted to laparotomy and a Kumar fundoplication for gastroesophageal reflux disease in 08/2013. 5. Recurrent paraesophageal hiatal hernia with symptoms of dysphagia, regurgitation and nocturnal cough. 6. S/p redo laparotomy and gastric preserving , Maggi-en-Y esophagojejunostomy on 06/04/2014. 7. Anastomotic stricture s/p dilations 8. Heartburn, regurgitation and dysphagia 9. S/P upper endoscopy placement of 12 cm length and 18 mm diameter Endochoice esophageal stent on 08/09/2015 PRIMARY PROCEDURE: Upper endoscopy removal of 12 cm length and 18 mm diameter Endochoice esophageal stent. SURGEON: Fani Leung [employer] PIL[employer]: Regi Darby INDICATION FOR PROCEDURE: The patient is a 37-year-old female with history of scleroderma and morbid obesity who underwent a laparotomy for placement of a Spring band in 1992. She then required removal of the Spring band via a laparotomy in 2007. Subsequently, patient presented with severe symptoms of gastroesophageal reflux disease with stricture and underwent multiple dilations. She then underwent a laparoscopy converted t o laparotomy and a Kumar fundoplication at an outside hospital in 08/2013. Patient did well for about 4 months and then presented with recurrent symptoms of dysphagia, regurgitation, nocturnal cough and pneumonia. Upper endoscopy showed distal esophagitis, no evidence of fundoplication, no visible stricture, and a paraesophageal hiatal hernia. The biopsy of the antegrade squamocolumnar junction showed reflux esophagitis. Esophageal motility study showed 70% failed contractions in the esophageal body and defective LES by length and presusre. Video esophagram showed mild dysmotility with passage of li quids and severe dysmotility with passage of solids from the esophagus into the stomach, and a paraesophageal hiatal hernia. She underwent redo laparotomy and gastric preserving , Maggi-en-Y esophagojeju nostomy on 06/04/2014.She presented with anastomtic stricture and required dilations. She complains of dysphagia, regurgitation and nocturnal cough. She underwent an upper endoscopy placement of 12 cm l ength and 18 mm diameter Endochoice esophageal stent on 08/09/2015. She is here for removal for the stent. PROCEDURE: Patient was brought to the operating room and was placed on the operating table in the supine position. After undergoing general endotracheal anesthesia an upper endoscopy was performed. The top of the stent was at 30 cm and had not migrated. The stent was removed without difficulty. The scope was reinsetred. The anastomosis was wide open and there was no evidence of bleeding. The patient tolerated the procedure well and was extubated and transferred to the post anesthesia recovering room without any complications. I was present for the entire procedure. Extracted from:Title: Clinical Document Author: Fani Leung MD Date: 09/17/15 Diagnosis: anastomotic stricture ,S/P esophageal stent placement Procedure: EGD removal fo esophageal stent Diet: Soft esophageal diet and as tolerated Activity as tolerated F/U as needed Extracted from:Title: Clinical Document 08/26/2015 [facility] Author: Kevon Glez DO Date: 08/26/15 Progress Daily [facility] SUBJECTIVE Pt is feeling very congested in her sinuses. denies fever or chills OBJECTIVE Vital Signs (last 24 hrs) Last Charted Temp Oral 97.9 DegF (AUG 26 11:54) Heart Rate Peripheral 69 bpm (AUG 26 11:54) Resp Rate 18 BRMIN (AUG 26 11:54) SBP 114 mmHg (AUG 26 11:54) DBP 68 mmHg (AUG 26 11:54) Labs (Last four charted values) WBC 6.1 (AUG 18) 7.5 (AUG 17) Hgb 13.4 (AUG 18) 14.2 (OCT 17) Hct 41.1 (OCT 18) 42.7 (OCT 17) Plt 180 (OCT 18) 211 (OCT 17) Na 140 (OCT 18) 140 (OCT 17) K 4.0 (OCT 18) L 3.4 (OCT 17) CO2 L 18 (OCT 18) L 23 (OCT 17) Cl H 112 (OCT 18) 108 (OCT 17) Cr 0.7 (OCT 18) 0.9 (OCT 17) BUN L 6 (OCT 18) 14 (OCT 17) Glucose Random 78 (OCT 18) 77 (OCT 17) Ca L 7.9 (OCT 18) L 8.3 (AUG 24) Input/Output Record In Out Bal 08/26 24hr Tot 52 0 52 08/25 24hr Tot 2983 0 2983 ASSESSMENT and EXAM Gen. Pt is AOX4 in no acute distress HEET: Normocephalic, nontraumatic. NECK: Supple, no JVD or Lymphadenopathy LUNGS: Clear on auscultation B/l with no wheezing or crackles HEART: S1, S2.RRR with no murmurs ABDOMEN: Soft, NT/ND with good BS CENTRAL NERVOUS SYSTEM: Patient moving all extremities grossly well. LOWER EXTREMITIES: No C/C/E PLAN and TREATMENT Pt with scleroderma s/p esophageal stent placement admitted with significant pain and vomiting -Will F/u with Dr Leung for possible removal of stent -pain mgt -C/w liquid diet -Will start on Claritin DIAGNOSES and PROBLEMS Atypical chest pain S/p Esophageal stent placement Hiatal hernia GERD Scleroderma Seizure Migrain headache Kidney stone Scheduled Meds (3):pantoprazole (Protonix), sertraline, topiramate (Topamax) Unscheduled Meds: None PRN Meds (5):LORazepam (Ativan), diphenhydrAMINE (Benadryl), hydromorphone ( Dilaudid), loratadine (Claritin), promethazine + Sodium Chloride 0.9% IV 50 mL One Time Meds: None Continuous Infusions (1):Sodium Chloride 0.9% IV 1,000 mL (NS 1,000 mL) Extracted from:Title: Clinical Document 08/09/2015 [facility] Author: Fani Leung MD Date: 08/09/15 PATIENT NAME: SABINE DEXTER DATE OF OPERATION/PROCEDURE: 08/09/2015 *_*_* PREOPERATIVE DIAGNOSES: 1. Scleroderma. 2. Status post open placement of the Spring band in 1992. 3. Status post redo laparotomy and removal of the Spring band in 2007. 4. Status post laparoscopy converted to laparotomy and a Kumar fundoplication for gastroesophageal reflux disease in 08/2013 5. Recurrent paraesophageal hiatal hernia with symptoms of dysphagia, regurgitation and nocturnal cough. 6. S/p redo laparotomy and gastric preserving , Maggi-en-Y esophagojejunostomy on 06/04/2014. 7. Anastomotic stricture s/p dilations 8. Heartburn, regurgitation and dysphagia POSTPROCEDURE DIAGNOSES: 1. Scleroderma. 2. Status post open placement of the Spring band in 1992. 3. Status post redo laparotomy and removal of the Spring band in 2007. 4. Status post laparoscopy converted to laparotomy and a Kumar fundoplication for gastroesophageal reflux disease in 08/2013. 5. Recurrent paraesophageal hiatal hernia with symptoms of dysphagia, regurgitation and nocturnal cough. 6. S/p redo laparotomy and gastric preserving , Maggi-en-Y esophagojejunostomy on 06/04/2014. 7. Anastomotic stricture s/p dilations 8. Heartburn, regurgitation and dysphagia PRIMARY PROCEDURE: Upper endoscopy placement of 12 cm length and 18 mm diameter Endochoice esophageal stent. SURGEON: Fani Leung [employer] PIL[employer]: Balta Chatman INDICATION FOR PROCEDURE: The patient is a 37-year-old female with history of scleroderma and morbid obesity who underwent a laparotomy for placement of a Spring band in 1992. She then required removal of the Spring band via a laparotomy in 2007. Subsequently, patient presented with severe symptoms of gastroesophageal reflux disease with stricture and underwent multiple dilations. She then underwent a laparoscopy converted t o laparotomy and a Kumar fundoplication at an outside hospital in 08/2013. Patient did well for about 4 months and then presented with recurrent symptoms of dysphagia, regurgitation, nocturnal cough and pneumonia. Upper endoscopy showed distal esophagitis, no evidence of fundoplication, no visible stricture, and a paraesophageal hiatal hernia. The biopsy of the antegrade squamocolumnar junction showed reflux esophagitis. Esophageal motility study showed 70% failed contractions in the esophageal body and defective LES by length and presusre. Video esophagram showed mild dysmotility with passage of li quids and severe dysmotility with passage of solids from the esophagus into the stomach, and a paraesophageal hiatal hernia. She underwent redo laparotomy and gastric preserving , Maggi-en-Y esophagojeju nostomy on 06/04/2014.She presented with anastomtic stricture and required dilations. She complains of dysphagia, regurgitation and nocturnal cough. She is here for placement of esophageal stent. PROCEDURE: Patient was brought to the operating room and was placed on the operating table in the supine position. After undergoing general endotracheal anesthesia an upper endoscopy was performed. There was evid ence of distal esophagitis. There was no retained food, saliva or bile in the esophagus. There was granulation tissue occupying 30% of the lumen of the anastomosis. Beyond the granulation tissue the giacomo stomosis was patent and both jejunal limbs were wide open. The anastomosis was at 36 cm and it was marked with a paper clip on the skin. Six cm distal to the anastomosis was marked with a paper clip on the skin. The wire was passed and a 12 cm length and 18 mm diameter Endochoice esophageal stent was deployed under fluoroscopic guidance. The scope was inserted the top of the stent was at 30 cm and the bottom of the stent was at 42 cm. The patient tolerated the procedure well and was extubated and transferred to the post anesthesia recovering room without any complications. I was present for the entire procedure. Extracted from:Title: Clinical Document 11/30/2014 [facility] Author: Ilya Gloria MD Date: 11/30/14 Surgery Progress Note Attending: Leonel Salazar DO Service: Internal Medicine Code status: None Specified=FULL CODE Reason for Admission: RIGHT ABDOMINAL WALL MASS Working DRG: None Documented Isolation: None Documented Consulting Physicians: Fani Leung MD Office: MSO: [id number] Service: Thoracic /Cardiac Surgery Ilya Gloria MD Office: MSO: [id number] Service: General Surgery Leonel Salazar DO Office: MSO: [id number] Service: Medicine SUBJECTIVE: Doing well. Post IR drain and tolerated well. Pain much improved. No fevers or chills. Tolerating diet. Off COPRA PROCESSOR OBJECTIVE and EXAM: General: AAOx3 HEENT: AT, NC, PERRLA, no scleral icterus CARDIAC: rrr PULM: CTA B, equal excursion B ABD: soft ND, minimally TTP midline, no R/G, no organomegaly EXT: no E/C/C, 2+ pulses in all 4 ext NEURO: grossly intact, CN 2-12 intact ASSESSMENT: This is a 39-year-old lady with: 1. Postoperative abdominal wall seroma. 2. History of scleroderma. 3. History of Raynaud's. 4. History of complex abdominal surgery including abdominal wall repair, as latest laparotomy. 5. Chronic pain. 6. History of seizures. PLAN: 1. Continue the drain, teach patient candi plunkett 2. OK to DC home once cleared by medicine 3. FU in clinic in 2-3 weeks to aspen hackett 4. Plan discussed with patient and she understands Vitals and Temp: Vitals Tmp(F) Pulse BP RR SpO2 FIO2 11/30 12:00 98.2 88 137/76 18 94 --- 11/30 08:00 98.4 59 126/73 18 97 --- 11/30 04:00 98.5 64 161/76 18 97 --- 11/30 00:00 98.2 68 142/56 18 98 --- 11/29 20:00 98.4 69 141/71 18 98 --- 24 Hr Tmax: 98.5F (36.94c) at 11/30 04:00 Vital Signs are the last 5 in the past 48 hours. Labs (Last four charted values) WBC 5.2 (NOV 29) 8.4 (NOV 28) Hgb 12.4 (NOV 29) 13.0 (NOV 28) Hct 36.4 (NOV 29) 37.9 (NOV 28) Plt 199 (NOV 29) 235 (NOV 28) Na 141 (NOV 29) 141 (NOV 28) K L 3.4 (NOV 29) L 3.4 (NOV 28) CO2 27 (NOV 29) 27 (NOV 28) Cl 107 (NOV 29) 109 (NOV 28) Cr 0.5 (NOV 29) 0.7 (NOV 28) BUN L 5 (NOV 29) 7 (NOV 28) Glucose Random 77 (NOV 29) 75 (NOV 28) Ca L 7.9 (NOV 29) L 8.4 (NOV 28) PT 14.0 (NOV 29) 13.8 (NOV 28) INR 1.08 (NOV 29) 1.06 (NOV 28) PTT H 35.9 (NOV 29) 32.6 (NOV 28) Scheduled Meds (6): 11/28/14 docusate 100 mg PO BID 11/29/14 ketorolac (ketorolac 15 mg/mL injectable solution) 15 mg IV Q6H 11/28/14 (Suspended) lidocaine topical (lidocaine topical patch (5% film)) 1 patch TOP Daily 11/28/14 (Suspended) loratadine-pseudoephedrine (Claritin-D 24 Hour oral tablet, extended release) 1 tab PO Daily 11/28/14 (Suspended) pantoprazole 40 mg PO Daily 11/28/14 (Suspended) predniSONE 10 mg PO Daily Extracted from:Title: APMS Progress Note* 11/10/2014 [facility] Author: Ambrosio Elliott MD Date: 11/09/14 Patient: SABINE DEXTER Age: 38 years Sex: Female : 1975 Associated Diagnoses: None Author: Ambrosio Elliott MD Basic Information Pain improved today, feeling much better. Per patient she would prefer pain meds to be PRN, states she has been refusing scheduled pain meds because her pain is well controlled. Pruritis is much improved/resolved. History of Present Illness The patient presents with Pain. There were exacerbating factors. There were relieving factors. Chief Complaint Acute on chronic postoperative pain complex s/p Ventral Hernia Repair. Review / Management Results review: Labs (Last four charted values) WBC 8.8 (NOV 09) 8.9 (NOV 08) 8.4 (NOV 07) Hgb 13.0 (NOV 09) 13.4 (NOV 08) H 16.6 (NOV 07) Hct 37.3 (NOV 09) 38.4 (NOV 08) H 48.9 (NOV 07) Plt 170 (NOV 09) 186 (NOV 08) 207 (NOV 07) Na 139 (NOV 09) 138 (NOV 08) 135 (NOV 07) K 4.0 (NOV 09) 4.0 (NOV 08) 4.1 (NOV 07) CO2 27 (NOV 09) 28 (NOV 08) L 22 (NOV 07) Cl 103 (NOV 09) 102 (NOV 08) 105 (NOV 07) Cr 0.6 (NOV 09) 0.7 (NOV 08) 0.6 (NOV 07) BUN L 5 (NOV 09) L 5 (NOV 08) L 5 (NOV 07) Glucose Random 75 (NOV 09) 86 (NOV 08) 83 (NOV 07) Mg 2.2 (NOV 09) L 1.6 (NOV 08) Phos 3.5 (NOV 09) 4.4 (NOV 08) Ca 8.6 (NOV 09) L 8.4 (NOV 08) 9.1 (DEC 31 ) . Health Status Allergies: Allergic Reactions (All) Severity Not Documented Cephalosporins- No reactions were documented. Codeine- No reactions were documented. Demerol HCl- No reactions were documented. Morphine- No reactions were documented. NexIUM- Patient takes protonix at home., Allergies (5) Active Reaction cephalosporins None Documented codeine None Documented Demerol HCl None Documented morphine None Documented NexIUM patient takes PROTONIX at home Current medications: Home Medications (4) Active losartan 50 mg oral tablet 50 mg=1 tab, PO, Daily multivitamin 1 tablet, PO, Daily pantoprazole 40 mg oral enteric coated tablet 40 mg=1 tab, PO, Daily predniSONE 10 mg oral tablet 10 mg=1 tab, PO, Daily , Home Medications (4) Active losartan 50 mg oral tablet 50 mg=1 tab, PO, Daily multivitamin 1 tablet, PO, Daily pantoprazole 40 mg oral enteric coated tablet 40 mg=1 tab, PO, Daily predniSONE 10 mg oral tablet 10 mg=1 tab, PO, Daily , Medications (13) Active Scheduled: (7) docusate sodium 100 mg CAP 100 mg 1 cap, PO, BID enoxaparin 40 mg/0.4 ml INJ 40 mg 0.4 mL, SUB-Q, [id number] ibuprofen 800 mg TAB 800 mg 1 tab, PO, Q8H lidocaine 5% top patch 1 patch, TOP, Q24H lidocaine patch removal 1 patch, TOP, Daily pantoprazole 40 mg ECT 40 mg 1 tab, PO, Before Dinner predniSONE 10 mg TAB 10 mg 1 tab, PO, BID Continuous: (1) Lactated Ringers 1,000 mL 1,000 mL, IV, 125 ml/hr PRN: (5) acetaminophen-hydrocodone 325-10mg TAB 1 tab, PO, Q4H diphenhydrAMINE 25 mg CAP 25 mg 1 cap, PO, Q6H insulin reg human rec 100 unit/ml INJ 3 ml Vial 3 unit 0.03 mL, SUB-Q, TID- Before Meals phenol-sodium phenolate 1.4% throat SPR 180 ml 1 spray, MUCOUS MEM, QID sodium chloride 0.9% 10 ml flush syr BD 10 ml, IVP, PRN Problem list: All Problems Anemia / SNOMED CT 127676545 / Confirmed Diverticulitis / SNOMED CT 193438135 / Confirmed GERD - Gastro-esophageal reflux disease / SNOMED CT 7226370178 / Confirmed Hiatal hernia / SNOMED CT 396046476 / Confirmed Hypertension / SNOMED CT [id number] / Confirmed Raynaud disease / SNOMED CT [id number] / Confirmed Scleroderma / SNOMED CT 482192942 / Confirmed Seizure / SNOMED CT 134784812 / Confirmed Shortness of breath / SNOMED CT 201255698 / Confirmed Tachycardia / SNOMED CT [id number] / Confirmed Review of Systems Constitutional: Negative. Respiratory: Negative. Cardiovascular: Negative. Gastrointestinal: Abdominal pain: Bilateral, Upper quadrant, The pain is mild, Characterized as ( Cramping/colicky ). Hematology/Lymphatics: Negative. Endocrine: Negative. Musculoskeletal: Negative. Integumentary: Negative. Neurologic: Alert and oriented X4. Psychiatric: Negative. Objective VS/Measurements Vital Signs (last 24 hrs) Last Charted Minimum Maximum Temp 97.0 (NOV 09 08:11) 97.0 (NOV 09 08:11) 98.6 (NOV 08 20:35) Heart Rate 64 (NOV 09 08:11) L 55 (NOV 09 00:25) 68 (NOV 08 12:17) Resp Rate 18 (NOV 09 08:11) L 12 (NOV 08 20:43) 18 (NOV 08 12:17) SBP 111 (NOV 09 08:11) 111 (NOV 09 04:43) 139 (NOV 08 15:42) DBP 68 (NOV 09 08:11) 65 (NOV 08 12:17) 82 (NOV 08 15:42) Weight 88.63 (NOV 08 18:53) General: Alert and oriented, No acute distress. Respiratory: Respirations are non-labored. Subjective Problem: Pain Patient states Is getting better Plan APMS Plan Discharge from [facility] care: Analgesics per Primary Service. Impression and Plan Education and Follow-up: Counseled: Regarding treatment, Regarding medications. This is a 38-year-old female with a PMHx significant for scleroderma, HTN, unspecified seizure disorder, obesity, GERD with reflux esophagitis and stricture s/p mutliple dilations and abdominal surgerie s in the past, who presented with acute postoperative pain s/p Open Ventral Hernia Repair. Following the surgery patient had a thoracic epidural that did not lead to any pain relief, epidural was remove d. She was started on Dilaudid COPRA PROCESSOR which she reported controlled her pain well throughout the evening despite some pruritis which was relieved by benadryl. COPRA PROCESSOR was discontinued yesterday and patient has done very well. Reports her pain in well controlled and the pruritis has greatly resolved. She stated that she would prefer her pain meds to be PRN because she does not want to take anything extra whil e she is not in pain. She has been refusing the scheduled doses if she is not in pain. We will sign off at this time. Plan: 1) APMS to sign off 2) changed to [place]field 10/325 mg 1 tab PO q 4hrs PRN Pain. 3) Continue lidocaine patch. 4) Continue Ibuprofen 800mg PO q 8hrs. Will sign off, thank you for this consult. Postoperative Information Surgery Done Procedure Location: Abdomen. Chief Complaint Continuing surgical site pain management Inpatient information Interaction with patient. Progress Note Date and Time of Visit: 11/09/2014 09:46 Post OP Day #: 3. Current Status Assessment Visual Analog Scale for Pain (VAS 0-10): At Rest: 3, With Activity: 5. Level of Sedation: Awake/Alert. Addendum by Constanza Lopez MD on 11/09/2014 22:59 TEACHING PHYSICIAN ADDENDUM: I saw and personally examined this patient and discussed the plan of care with this resident. I have reviewed the note below and agree with the history, examination findings and the plan of care. Extracted from:Title: APMS Consult Note Author: Kalia Collado MD Date: 11/07/14 Patient: SABINE DEXTER Age: 38 years Sex: Female : 1975 Associated Diagnoses: None Author: Kalia Collado MD Basic Information Referral source Reason for consultation: Complex Acute Pain Chief Complaint 11/07/2014 06:50 hernia History of Present Illness Patient is a 38-year-old female with a PMHx significant for scleroderma, HTN, unspecified seizure disorder, obesity, GERD with reflux esophagitis and stricture s/p mutliple dilations and abdominal surge gay in the past, who present for an open ventral hernia repair. We are consulted for post-op pain control. Histories Past Medical History: Active GERD - Gastro-esophageal reflux disease ([id number]) Hiatal hernia (688434510) Scleroderma (832885271) Shortness of breath (669563144) Seizure (397868229) Diverticulitis (609348441) Anemia (907669261) Raynaud disease ([id number]) Hypertension ([id number]) Tachycardia ([id number]) Resolved Migraines ([id number]): Resolved. Kidney stones ([id number]): Resolved. Cyst of kidney (971945207): Resolved. Family History: Diverticulitis Mother Sister Lupus Mother Sister Rheumatoid arthritis Mother Heart disease Father Anemia Sister High blood pressure Father Bipolar disorder Sister Father Type 2 diabetes mellitus Father Eczema Sister Congestive heart failure Grandparent Acid reflux Sister Mother Thyroid disease Mother Sleep apnea Father Seizure Sister Ovarian cancer, disseminated Sister Procedure history: Upper gastrointestinal endoscopy (637051565) on 07/03/2014 at 38 Years. Repair of diaphragmatic hernia (808877226) on 06/03/2014 at 38 Years. Comments: 07/13/2014 09:29 - Aida Stevens RN with esophagojejunostomy Roderick fundoplication (415907511) in the month of 05/2014 at 38 Years. Esophagogastroduodenoscopy (007690732) on 05/07/2014 at 38 Years. Comments: 05/28/2014 12:27 - Yolanda Guzman RN multiple exams with esophageal dilations Operation (4313446444) in 2007 at 32 Years. Exploratory laparotomy (439247933) in 2007 at 32 Years. Operation (4590078293) in 1992 at 17 Years. Tonsillectomy (302410640) in 1983 at 8 Years. Operation (5190157575). Comments: 05/28/2014 12:29 - Yolanda Guzman RN for esopheal swallowing problems, seveal done Cholecystectomy (28262766). Social History Social and Psychosocial Habits Alcohol 11/05/2014 Use: Never Frequency: 1-2 times per year Tobacco 11/07/2014 Use: Never smoker Exposure to Tobacco Smoke None Cigarette Smoking Last 365 Days No Reg Smoking Cessation Counseling No . Health Status Allergies: Allergic Reactions (All) Severity Not Documented Cephalosporins- No reactions were documented. Codeine- No reactions were documented. Demerol HCl- No reactions were documented. Morphine- No reactions were documented. NexIUM- Patient takes protonix at home., Allergies (5) Active Reaction cephalosporins None Documented codeine None Documented Demerol HCl None Documented morphine None Documented NexIUM patient takes PROTONIX at home Current medications: (Selected) Inpatient Medications Ordered Ofirmev: 1,000 mg, 100 mL, 400 ml/hr, IV, PRE OP Documented Medications Documented Claritin-D 24 Hour oral tablet, extended release: 1 tab, PO, Daily, 15 tab Protonix: See Instructions, Daily losartan 50 mg oral tablet: 50 mg, Daily multivitamin: predniSONE 10 mg oral tablet: 10 mg, BID Problem list: All Problems Anemia / SNOMED CT 564379026 / Confirmed Diverticulitis / SNOMED CT 063855103 / Confirmed GERD - Gastro-esophageal reflux disease / SNOMED CT 0331147939 / Confirmed Hiatal hernia / SNOMED CT 526333476 / Confirmed Hypertension / SNOMED CT [id number] / Confirmed Raynaud disease / SNOMED CT [id number] / Confirmed Scleroderma / SNOMED CT 368060893 / Confirmed Seizure / SNOMED CT 648310008 / Confirmed Shortness of breath / SNOMED CT 086433975 / Confirmed Tachycardia / SNOMED CT [id number] / Confirmed Review of Systems Constitutional: Negative except as documented in history of present illness. Cardiovascular: Negative except as documented in history of present illness. Ear/Nose/Mouth/Throat: Negative except as documented in history of present illness. Respiratory: Negative except as documented in history of present illness. Gastrointestinal: Negative except as documented in history of present illness. Musculoskeletal: Negative except as documented in history of present illness. Neurologic: Negative except as documented in history of present illness. Psychiatric: Negative except as documented in history of present illness. Endocrine: Negative except as documented in history of present illness. Hematology/Lymphatics: Negative except as documented in history of present illness. Physical Examination VS/Measurements Vital Signs (last 24 hrs) Last Charted Minimum Maximum Heart Rate 84 (NOV 07 06:00) 84 (NOV 07:) 84 (NOV 07:) Resp Rate 16 (NOV 07:) 16 (NOV 07:) 16 (NOV 07 :) SBP 126 (NOV 07:) 126 (NOV 07:00) 126 (NOV 07:) DBP 85 (NOV 07 06:00) 85 (NOV 07 06:00) 85 (NOV 07:) Weight 90.909 (NOV 07:25) Height 167.64 (NOV 07:25) BMI 32.35 (NOV 07:25) General: Alert and oriented. Eye: Pupils are equal, round and reactive to light. HENT: Normocephalic. Cardiovascular: Normal rate. Gastrointestinal: Soft. Musculoskeletal Normal range of motion. Integumentary: Warm. Neurologic: Alert. Cognition and Speech: Oriented. Psychiatric: Cooperative. Review / Management Results review: No qualifying data available. Chest x-ray results ECG interpretation Impression and Plan Diagnosis Orders Education and Follow-up: Counseled: Regarding treatment, Regarding medications. Patient is a 38-year-old female with a PMHx significant for scleroderma, HTN, unspecified seizure disorder, obesity, GERD with reflux esophagitis and stricture s/p mutliple dilations and abdominal surge gay in the past, who present for an open ventral hernia repair. We are consulted for post-op pain control. - will plan for a pre-op thoracic epidural. Addendum by Karl Jackson MD on 11/12/2014 10:54 I saw and examined the patient and discussed plan of care with the resident. I have reviewed the note bellow and agree with the history, physical examination findings, assessment and plan of care. Extracted from:Title: Clinical Document 07/03/2014 [facility] Author: Fani Leung MD Date: 07/03/14 Procedure: Diagnostic endoscopy Diet: Full liquid Activity as tolerated Call if chest pain or fever more than 101.0 Follow up in clinic in two weeks [phone] Plan of Care No Data Provided for This Section Social History Social History Date Source Social History TypeResponse 11/23/2018 [facility] Alcohol Never, Frequency: 1-2 times per year. Previous treatment: None. Smoking Status Never smoker; Previous treatment: None; Ready to change: No; Exposure to Tobacco Smoke None; Cigarette Smoking Last 365 Days No; Reg Smoking Cessation Counseling No; Other Tobacco Frequency N0NE; entered on: 11/23/18 Social History [facility]Response [facility] Never, Frequency: 1-2 times per year. Previous treatment: None. Smoking Status Never smoker; Previous treatment: None; Ready to change: No; Exposure to Tobacco Smoke None; Cigarette Smoking Last 365 Days No; Reg Smoking Cessation Counseling No; Other Tobacco Frequency N0NE; entered on: 11/23/18 Social History TypeResponse 11/23/2018 [id number] Alcohol Never, Frequency: 1-2 times per year. Previous treatment: None. Smoking Status Never smoker; Previous treatment: None; Ready to change: No; Exposure to Tobacco Smoke None; Cigarette Smoking Last 365 Days No; Reg Smoking Cessation Counseling No; Other Tobacco Frequency N0NE; entered on: 11/23/18 Social History TypeResponse 10/03/2016 [facility] Alcohol Never, Frequency: 1-2 times per year. Smoking Status Never smoker; Exposure to Tobacco Smoke None; Cigarette Smoking Last 365 Days No; Reg Smoking Cessation Counseling No; Other Tobacco Frequency N0NE; entered on: 10/03/16 Social History TypeResponse 11/07/2014 [facility] Alcohol Use: Never, Frequency: 1-2 times per year Smoking Status Never smoker, Exposure to Tobacco Smoke None, Cigarette Smoking Last 365 Days No, Reg Smoking Cessation Counseling No Family History No Data Provided for This Section Advance Directives No Data Provided for This Section Functional Status No Data Provided for This Section
--- OUTSIDE RECORDS SUMMARY | 2019-05-29 11:59 | XMS REPORT | Continuity of Care Document ---
:1975 Author Organization [facility] Care Team Providers Name Role Phone MD Garnett Zenithe Unavailable Unavailable Insurance Providers Payer name Policy type / Policy ID Covered libertarian ID Policy Gutierrez Coverage type [place] [id number] [place]: [employer] Encounters Encounter Performer Location Date Lab Report Higinio Garnett MD [facility] - Apr 27, 2014 [place] Allergies, Adverse Reactions, Alerts Type Substance Reaction [...] daily for 4 days VITAMIN D (ERGOCALCIFEROL) 87760 Take 1 capsule by mouth every April [...] 2013March 26, platelet count PLATELETS 268 K/CMM [phone] /mm3 March 26, erythrocyte ESR 39 mm/hr [...] 2013March 26, sodium, serum SODIUM 139 MEQ/L [phone] mmol/L March 26, potassium, serum POTASSIUM 4.1 [...]
--- OUTSIDE RECORDS SUMMARY | 2019-05-29 11:59 | XMS REPORT | Continuity of Care Document ---
:1975 Author Organization [facility] Care Team Providers Name Role Phone MD Ganrett Zenithe Unavailable Unavailable Insurance Providers Payer name Policy type / Policy ID Covered constitution party ID Policy Gutierrez Coverage type MEDIC[place] B-[place]: NOVITAS [place] MEDICARE B-[place]: SHOP[employer] [place] Encounters Encounter Performer Location Date Lab Report Higinio Garnett MD [facility] Jul 17, 2014 [place] Allergies, Adverse Reactions, Alerts Type Substance Reaction [...] Inactive needed for nausea/vomiting VITAMIN D (ERGOCALCIFEROL) 74617 Take 1 capsule by mouth every April [...] 2013Jul 17, platelet count PLATELETS 199 K/CMM 008-440 5444 /mm3 March 26, hemoglobin, blood HGB 9.8 g/dL 12.0-16.0 Low 2013March 26, hematocrit, blood HCT 32.7 % 36.0-48.0 Low 2013March 26, platelet count PLATELETS 268 K/CMM 032-951 2228 /mm3 March 26, erythrocyte ESR 39 mm/hr 0-20 High 2013 sedimentation rate Jul 17, hemoglobin, blood HGB 13.6 g/dL 12.0-16.0 2013Jul 17, hematocrit, blood HCT 41.8 % 36.0-48.0 2013Jul 17, platelet count PLATELETS 199 K/CMM 752-988 9957 /mm3 Jul 17, urine color UA COLOR [...] Jul 17, sodium, serum SODIUM 140 MEQ/L 233-764 6448 mmol/L Jul 17, potassium, serum POTASSIUM 3.8 [...] March 26, sodium, serum SODIUM 139 MEQ/L 138-369 4389 mmol/L March 26, potassium, serum POTASSIUM 4.1 [...] Jul 17, sodium, serum SODIUM 140 MEQ/L 109-736 2991 mmol/L Jul 17, potassium, serum POTASSIUM 3.8 [...]
--- OUTSIDE RECORDS SUMMARY | 2019-05-29 11:59 | XMS REPORT | Continuity of Care Document ---
:1975 Author Organization [facility] Care Team Providers Name Role Phone MD Garnett Zenithe Unavailable Unavailable Insurance Providers Payer name Policy type / Policy ID Covered democrat ID Policy Gutierrez Coverage type MEDIC[place] B-[place]: TrendyolITAS [employer] MEDICARE B-[place]: [employer] Encounters Encounter Performer Location Date Lab Report Higinio Garnett MD [facility] - March 26, 2014 [place] Allergies, Adverse Reactions, Alerts Type Substance Reaction [...] 2013March 26, platelet count PLATELETS 268 K/CMM [phone] /mm3 March 26, erythrocyte ESR 39 mm/hr [...] March 26, sodium, serum SODIUM 139 MEQ/L 679-210 2666 mmol/L March 26, potassium, serum POTASSIUM 4.1 [...]
--- OUTSIDE RECORDS SUMMARY | 2019-05-29 11:59 | XMS REPORT | Continuity of Care Document ---
:1975 Author Organization [facility] Care Team Providers Name Role Phone MD Garnett Zenithe Unavailable Unavailable Insurance Providers Payer name Policy type / Policy ID Covered libertarian ID Policy Gutierrez Coverage type MEDICARE B-[place]: datatrackerITAS [employer] MEDICARE B-[place]: [employer] Encounters Encounter Performer Location Date Office Visit Higinio Garnett MD [facility] Oct 03, 2014 [place] Allergies, Adverse Reactions, Alerts Type Substance Reaction [...] as needed for nausea/vomiting VITAMIN D (ERGOCALCIFEROL) 79309 Take 1 capsule by mouth April 04, [...] 2013Jul 17, platelet count PLATELETS 199 K/CMM 789-760 1925 /mm3 March 26, hemoglobin, blood HGB 9.8 g/dL 12.0-16.0 Low 2013March 26, hematocrit, blood HCT 32.7 % 36.0-48.0 Low 2013March 26, platelet count PLATELETS 268 K/CMM 023-799 9984 /mm3 March 26, erythrocyte ESR 39 mm/hr 0-20 High 2013 sedimentation rate Jul 17, hemoglobin, blood HGB 13.6 g/dL 12.0-16.0 2013Jul 17, hematocrit, blood HCT 41.8 % 36.0-48.0 2013Jul 17, platelet count PLATELETS 199 K/CMM 081-854 2778 /mm3 Jul 17, urine color UA COLOR [...] Jul 17, sodium, serum SODIUM 140 MEQ/L 439-962 1141 mmol/L Jul 17, potassium, serum POTASSIUM 3.8 [...] March 26, sodium, serum SODIUM 139 MEQ/L 089-240 7176 mmol/L March 26, potassium, serum POTASSIUM 4.1 [...] Jul 17, sodium, serum SODIUM 140 MEQ/L 109-780 0070 mmol/L Jul 17, potassium, serum POTASSIUM 3.8 [...]
--- OUTSIDE RECORDS SUMMARY | 2019-05-29 11:59 | XMS REPORT | Continuity of Care Document ---
:1975 Author Organization [facility] Care Team Providers Name Role Phone MD Garnett Zenithe Unavailable Unavailable Insurance Providers Payer name Policy type / Policy ID Covered green party ID Policy Gutierrez Coverage type MEDICARE B-[place]: NOVITAS [employer] MEDICARE B-[place]: [employer]vertising[employer] Encounters Encounter Performer Location Date Office Visit Higinio Garnett MD [facility] March 24, 2014 [place] Allergies, Adverse Reactions, Alerts Type Substance Reaction [...]
--- OUTSIDE RECORDS SUMMARY | 2019-05-29 11:59 | XMS REPORT | Continuity of Care Document ---
:[address] [facility] Care Team Providers Name Role Phone MD Garnett Zenithe Unavailable Unavailable Insurance Providers Payer name Policy type / Policy ID Covered green party ID Policy Gutierrez Coverage type MEDICARE B-[place]: Think Global[employer] MEDICARE B-[place]: MedNewsS [employer] Encounters Encounter Performer Location Date Lab Report Higinio Garnett MD [facility] - March 26, 2014 [place] Allergies, Adverse Reactions, Alerts Type Substance Reaction [...] daily for 4 days VITAMIN D (ERGOCALCIFEROL) 98698 Take 1 capsule by mouth every April [...] 2013March 26, platelet count PLATELETS 268 K/CMM 450-006 4890 /mm3 March 26, erythrocyte ESR 39 mm/hr [...] March 26, sodium, serum SODIUM 139 MEQ/L 249-163 3642 mmol/L March 26, potassium, serum POTASSIUM 4.1 [...]
--- OUTSIDE RECORDS SUMMARY | 2019-05-29 12:00 | XMS REPORT | Continuity of Care Document ---
:1975 Author Organization [facility] Care Team Providers Name Role Phone MD Garnett Zenithe Unavailable Unavailable Insurance Providers Payer name Policy type / Policy ID Covered green party ID Policy Gutierrez Coverage type MEDICARE B-[place]: Fiddler's Brewing [employer]S [employer] MEDICARE B-[place]: eelusion Encounters Encounter Performer Location Date Office Visit Higinio Garnett MD [facility] Dec 10, 2014 [place] Allergies, Adverse Reactions, Alerts Type Substance Reaction [...] as needed for nausea/vomiting VITAMIN D (ERGOCALCIFEROL) 57688 Take 1 capsule by mouth April 04, [...] 2013Jul 17, platelet count PLATELETS 199 K/CMM [phone] /mm3 March 26, hemoglobin, blood HGB 9.8 g/dL 12.0-16.0 Low 2013March 26, hematocrit, blood HCT 32.7 % 36.0-48.0 Low 2013March 26, platelet count PLATELETS 268 K/CMM 186-594 7671 /mm3 March 26, erythrocyte ESR 39 mm/hr 0-20 High 2013 sedimentation rate Jul 17, hemoglobin, blood HGB 13.6 g/dL 12.0-16.0 2013Jul 17, hematocrit, blood HCT 41.8 % 36.0-48.0 2013Jul 17, platelet count PLATELETS 199 K/CMM 181-947 5412 /mm3 Jul 17, urine color UA COLOR [...] Jul 17, sodium, serum SODIUM 140 MEQ/L 313-774 8121 mmol/L Jul 17, potassium, serum POTASSIUM 3.8 [...] March 26, sodium, serum SODIUM 139 MEQ/L 614-649 2093 mmol/L March 26, potassium, serum POTASSIUM 4.1 [...] Jul 17, sodium, serum SODIUM 140 MEQ/L 600-286 1611 mmol/L Jul 17, potassium, serum POTASSIUM 3.8 [...]
--- OUTSIDE RECORDS SUMMARY | 2019-05-29 12:00 | XMS REPORT | Continuity of Care Document ---
:1975 Author Organization [facility] Care Team Providers Name Role Phone MD Garnett Zenithe Unavailable Unavailable Insurance Providers Payer name Policy type / Policy ID Covered green party ID Policy Gutierrez Coverage type MEDICARE B-[place]: Direct SittersITAS [employer] MEDICARE B-[place]: Spectra[employer]S [employer] Encounters Encounter Performer Location Date Lab Report Higinio Garnett MD [facility] May 09, 2015 [place] Allergies, Adverse Reactions, Alerts Type Substance Reaction [...] as needed for nausea/vomiting VITAMIN D (ERGOCALCIFEROL) 93258 Take 1 capsule by mouth April 04, [...] 2013Jul 17, platelet count PLATELETS 199 K/CMM 519-661 0965 /mm3 March 26, hemoglobin, blood HGB 9.8 g/dL 12.0-16.0 Low 2013March 26, hematocrit, blood HCT 32.7 % 36.0-48.0 Low 2013March 26, platelet count PLATELETS 268 K/CMM 445-466 9881 /mm3 March 26, erythrocyte ESR 39 mm/hr 0-20 High 2013 sedimentation rate Jul 17, hemoglobin, blood HGB 13.6 g/dL 12.0-16.0 2013Jul 17, hematocrit, blood HCT 41.8 % 36.0-48.0 2013Jul 17, platelet count PLATELETS 199 K/CMM 352-841 5376 /mm3 Feb 15, hemoglobin, blood HGB 15.5 g/dL 12.0-16.0 2014Feb 15, hematocrit, blood HCT 46.2 % 36.0-48.0 2014Feb 15, platelet count PLATELETS 220 K/CMM 025-118 4848 /mm3 Feb 15, erythrocyte ESR 6 mm/hr 0-20 2014 sedimentation rate May 09, hemoglobin, blood HGB 13.9 g/dL 12.0-16.0 2014May 09, hematocrit, blood HCT 42.6 % 36.0-48.0 2014May 09, platelet count PLATELETS 227 K/CMM 000-003 1249 /mm3 Jul 17, urine color UA COLOR [...] Jul 17, sodium, serum SODIUM 140 MEQ/L 915-491 3785 mmol/L Jul 17, potassium, serum POTASSIUM 3.8 [...] Dec 21, sodium, serum SODIUM 139 mmol/L 776-291 0664 Dec 21, potassium, serum POTASSIUM 4.0 mmol/L [...] March 26, sodium, serum SODIUM 139 MEQ/L 302-985 9045 mmol/L March 26, potassium, serum POTASSIUM 4.1 [...] Jul 17, sodium, serum SODIUM 140 MEQ/L 576-845 5580 mmol/L Jul 17, potassium, serum POTASSIUM 3.8 [...] Dec 21, sodium, serum SODIUM 139 mmol/L 093-394 2129 Dec 21, potassium, serum POTASSIUM 4.0 mmol/L [...] 2014Feb 15, sodium, serum SODIUM 135 MEQ/L 322-956 2100 mmol/L Feb 15, potassium, serum POTASSIUM 3.8 [...] May 09, sodium, serum SODIUM 140 MEQ/L 453-454 4888 mmol/L May 09, potassium, serum POTASSIUM 3.7 [...]
--- OUTSIDE RECORDS SUMMARY | 2019-05-29 12:00 | XMS REPORT | Continuity of Care Document ---
:1975 Author Organization [facility] Care Team Providers Name Role Phone MD Garnett Zenithe Unavailable Unavailable Insurance Providers Payer name Policy type / Policy ID Covered green party ID Policy Gutierrez Coverage type MEDICARE B-[place]: CarW[employer] MEDICARE B-[place]: CarW[employer]S [employer] Encounters Encounter Performer Location Date Office Visit Higinio Garnett MD [facility] Nov 13, 2014 [place] Allergies, Adverse Reactions, Alerts Type Substance Reaction [...] as needed for nausea/vomiting VITAMIN D (ERGOCALCIFEROL) 58406 Take 1 capsule by mouth April 04, [...] 2013Jul 17, platelet count PLATELETS 199 K/CMM 687-583 0995 /mm3 March 26, hemoglobin, blood HGB 9.8 g/dL 12.0-16.0 Low 2013March 26, hematocrit, blood HCT 32.7 % 36.0-48.0 Low 2013March 26, platelet count PLATELETS 268 K/CMM 135-993 1122 /mm3 March 26, erythrocyte ESR 39 mm/hr 0-20 High 2014 sedimentation rate Jul 17, hemoglobin, blood HGB 13.6 g/dL 12.0-16.0 2013Jul 17, hematocrit, blood HCT 41.8 % 36.0-48.0 2013Jul 17, platelet count PLATELETS 199 K/CMM 751-172 1035 /mm3 Jul 17, urine color UA COLOR [...] Jul 17, sodium, serum SODIUM 140 MEQ/L 894-277 8866 mmol/L Jul 17, potassium, serum POTASSIUM 3.8 [...] March 26, sodium, serum SODIUM 139 MEQ/L 713-242 1034 mmol/L March 26, potassium, serum POTASSIUM 4.1 [...] Jul 17, sodium, serum SODIUM 140 MEQ/L 426-479 4345 mmol/L Jul 17, potassium, serum POTASSIUM 3.8 [...]
--- OUTSIDE RECORDS SUMMARY | 2019-05-29 12:00 | XMS REPORT | Continuity of Care Document ---
:[address] [facility] Care Team Providers Name Role Phone MD Garnett Zenithe Unavailable Unavailable Insurance Providers Payer name Policy type / Policy ID Covered republican ID Policy Gutierrez Coverage type MEDICARE B-[place]: [employer] Systems[employer] MEDICARE B-[place]: [employer] Encounters Encounter Performer Location Date Office Visit Higinio Garnett MD [facility] Oct 26, 2014 [place] Allergies, Adverse Reactions, Alerts Type Substance Reaction [...] as needed for nausea/vomiting VITAMIN D (ERGOCALCIFEROL) 40109 Take 1 capsule by mouth April 04, [...] 2013Jul 17, platelet count PLATELETS 199 K/CMM 827-018 1066 /mm3 March 26, hemoglobin, blood HGB 9.8 g/dL 12.0-16.0 Low 2013March 26, hematocrit, blood HCT 32.7 % 36.0-48.0 Low 2013March 26, platelet count PLATELETS 268 K/CMM 349-738 8592 /mm3 March 26, erythrocyte ESR 39 mm/hr 0-20 High 2013 sedimentation rate Jul 17, hemoglobin, blood HGB 13.6 g/dL 12.0-16.0 2013Jul 17, hematocrit, blood HCT 41.8 % 36.0-48.0 2013Jul 17, platelet count PLATELETS 199 K/CMM 184-880 8582 /mm3 Jul 17, urine color UA COLOR [...] Jul 17, sodium, serum SODIUM 140 MEQ/L [phone] mmol/L Jul 17, potassium, serum POTASSIUM 3.8 [...] March 26, sodium, serum SODIUM 139 MEQ/L 742-222 7314 mmol/L March 26, potassium, serum POTASSIUM 4.1 [...] Jul 17, sodium, serum SODIUM 140 MEQ/L [phone] mmol/L Jul 17, potassium, serum POTASSIUM 3.8 [...]
--- OUTSIDE RECORDS SUMMARY | 2019-05-29 12:01 | XMS REPORT | Continuity of Care Document ---
:1975 Author Organization [facility] Care Team Providers Name Role Phone MD Garnett Zenithe Unavailable Unavailable Insurance Providers Payer name Policy type / Policy ID Covered green party ID Policy Gutierrez Coverage type MEDICARE B-[place]: [employer] [facility] MEDICARE B-[place]: [employer] Encounters Encounter Performer Location Date Office Visit Higinio Garnett MD [facility] Jan 10, 2015 [place] Allergies, Adverse Reactions, Alerts Type Substance Reaction [...] as needed for nausea/vomiting VITAMIN D (ERGOCALCIFEROL) 89692 Take 1 capsule by mouth April 04, [...] 2013Jul 17, platelet count PLATELETS 199 K/CMM 928-302 1640 /mm3 March 26, hemoglobin, blood HGB 9.8 g/dL 12.0-16.0 Low 2013March 26, hematocrit, blood HCT 32.7 % 36.0-48.0 Low 2013March 26, platelet count PLATELETS 268 K/CMM [phone] /mm3 March 26, erythrocyte ESR 39 mm/hr 0-20 High 2014 sedimentation rate Jul 17, hemoglobin, blood HGB 13.6 g/dL 12.0-16.0 2013Jul 17, hematocrit, blood HCT 41.8 % 36.0-48.0 2013Jul 17, platelet count PLATELETS 199 K/CMM 969-503 4405 /mm3 Jul 17, urine color UA COLOR [...] Jul 17, sodium, serum SODIUM 140 MEQ/L 227-665 9239 mmol/L Jul 17, potassium, serum POTASSIUM 3.8 [...] Dec 21, sodium, serum SODIUM 139 mmol/L 011-045 1655 Dec 21, potassium, serum POTASSIUM 4.0 mmol/L [...] March 26, sodium, serum SODIUM 139 MEQ/L 751-251 8504 mmol/L March 26, potassium, serum POTASSIUM 4.1 [...] Jul 17, sodium, serum SODIUM 140 MEQ/L [phone] mmol/L Jul 17, potassium, serum POTASSIUM 3.8 [...] Dec 21, sodium, serum SODIUM 139 mmol/L [phone] Dec 21, potassium, serum POTASSIUM 4.0 mmol/L [...]
--- OUTSIDE RECORDS SUMMARY | 2019-05-29 12:01 | XMS REPORT | Continuity of Care Document ---
:1975 Author Organization [facility] Care Team Providers Name Role Phone MD Garnett Zenithe Unavailable Unavailable Insurance Providers Payer name Policy type / Policy ID Covered democrat ID Policy Gutierrez Coverage type MEDICARE B-[place]: ConnectFuITAS [employer] MEDICARE B-[place]: weendy Encounters Encounter Performer Location Date Lab Report Higinio Garnett MD [facility] Feb 15, 2015 [place] Allergies, Adverse Reactions, Alerts Type Substance Reaction [...] as needed for nausea/vomiting VITAMIN D (ERGOCALCIFEROL) 26349 Take 1 capsule by mouth April 04, [...] 2013Jul 17, platelet count PLATELETS 199 K/CMM 691-899 1276 /mm3 March 26, hemoglobin, blood HGB 9.8 g/dL 12.0-16.0 Low 2013March 26, hematocrit, blood HCT 32.7 % 36.0-48.0 Low 2013March 26, platelet count PLATELETS 268 K/CMM 096-201 9184 /mm3 March 26, erythrocyte ESR 39 mm/hr 0-20 High 2013 sedimentation rate Jul 17, hemoglobin, blood HGB 13.6 g/dL 12.0-16.0 2013Jul 17, hematocrit, blood HCT 41.8 % 36.0-48.0 2013Jul 17, platelet count PLATELETS 199 K/CMM 482-840 4129 /mm3 Feb 15, hemoglobin, blood HGB 15.5 g/dL 12.0-16.0 2014Feb 15, hematocrit, blood HCT 46.2 % 36.0-48.0 2014Feb 15, platelet count PLATELETS 220 K/CMM 294-898 1024 /mm3 Feb 15, erythrocyte ESR 6 mm/hr [...] Jul 17, sodium, serum SODIUM 140 MEQ/L 405-535 8296 mmol/L Jul 17, potassium, serum POTASSIUM 3.8 [...] Dec 21, sodium, serum SODIUM 139 mmol/L 479-896 9210 Dec 21, potassium, serum POTASSIUM 4.0 mmol/L [...] March 26, sodium, serum SODIUM 139 MEQ/L 337-944 0337 mmol/L March 26, potassium, serum POTASSIUM 4.1 [...] Jul 17, sodium, serum SODIUM 140 MEQ/L 120-828 8455 mmol/L Jul 17, potassium, serum POTASSIUM 3.8 [...] Dec 21, sodium, serum SODIUM 139 mmol/L [phone] Dec 21, potassium, serum POTASSIUM 4.0 mmol/L [...] 2014Feb 15, sodium, serum SODIUM 135 MEQ/L 795-620 6465 mmol/L Feb 15, potassium, serum POTASSIUM 3.8 [...]
--- OUTSIDE RECORDS SUMMARY | 2019-05-29 12:01 | XMS REPORT | Continuity of Care Document ---
:1975 Author Organization [facility] Care Team Providers Name Role Phone MD Garnett Zenithe Unavailable Unavailable Insurance Providers Payer name Policy type / Policy ID Covered green party ID Policy Gutierrez Coverage type MEDICARE B-[place]: [employer] MEDICARE B-[place]: [employer] Encounters Encounter Performer Location Date Lab Report Higinio Garnett MD [facility] - Dec 20, 2014 [place] Allergies, Adverse Reactions, Alerts Type Substance Reaction [...] as needed for nausea/vomiting VITAMIN D (ERGOCALCIFEROL) 69145 Take 1 capsule by mouth April 04, [...] 2013Jul 17, platelet count PLATELETS 199 K/CMM 770-797 2620 /mm3 March 26, hemoglobin, blood HGB 9.8 g/dL 12.0-16.0 Low 2013March 26, hematocrit, blood HCT 32.7 % 36.0-48.0 Low 2013March 26, platelet count PLATELETS 268 K/CMM 161-525 0307 /mm3 March 26, erythrocyte ESR 39 mm/hr 0-20 High 2013 sedimentation rate Jul 17, hemoglobin, blood HGB 13.6 g/dL 12.0-16.0 2013Jul 17, hematocrit, blood HCT 41.8 % 36.0-48.0 2013Jul 17, platelet count PLATELETS 199 K/CMM 699-387 0621 /mm3 Jul 17, urine color UA COLOR [...] Jul 17, sodium, serum SODIUM 140 MEQ/L 137-656 4780 mmol/L Jul 17, potassium, serum POTASSIUM 3.8 [...] Dec 21, sodium, serum SODIUM 139 mmol/L 797-491 9663 Dec 21, potassium, serum POTASSIUM 4.0 mmol/L [...] March 26, sodium, serum SODIUM 139 MEQ/L 246-090 2241 mmol/L March 26, potassium, serum POTASSIUM 4.1 [...] Jul 17, sodium, serum SODIUM 140 MEQ/L 892-977 8492 mmol/L Jul 17, potassium, serum POTASSIUM 3.8 [...] Dec 21, sodium, serum SODIUM 139 mmol/L 382-309 4290 Dec 21, potassium, serum POTASSIUM 4.0 mmol/L [...]
--- OUTSIDE RECORDS SUMMARY | 2019-05-29 12:02 | XMS REPORT | Continuity of Care Document ---
:1975 Author Organization [facility] Care Team Providers Name Role Phone MD Garnett Zenithe Unavailable Unavailable Insurance Providers Payer name Policy type / Policy ID Covered alliance party ID Policy Gutierrez Coverage type MEDIC[place] B-[place]: [employer] MEDICARE B-[place]: proVITALS [employer] Encounters Encounter Performer Location Date Office Visit Higinio Garnett MD [facility] Apr 12, 2015 [place] Allergies, Adverse Reactions, Alerts Type Substance Reaction [...] as needed for nausea/vomiting VITAMIN D (ERGOCALCIFEROL) 13538 Take 1 capsule by mouth April 04, [...] 2013Jul 17, platelet count PLATELETS 199 K/CMM 389-070 7294 /mm3 March 26, hemoglobin, blood HGB 9.8 g/dL 12.0-16.0 Low 2013March 26, hematocrit, blood HCT 32.7 % 36.0-48.0 Low 2013March 26, platelet count PLATELETS 268 K/CMM 638-299 2410 /mm3 March 26, erythrocyte ESR 39 mm/hr 0-20 High 2014 sedimentation rate Jul 17, hemoglobin, blood HGB 13.6 g/dL 12.0-16.0 2013Jul 17, hematocrit, blood HCT 41.8 % 36.0-48.0 2013Jul 17, platelet count PLATELETS 199 K/CMM 059-999 2700 /mm3 Feb 15, hemoglobin, blood HGB 15.5 g/dL 12.0-16.0 2014Feb 15, hematocrit, blood HCT 46.2 % 36.0-48.0 2014Feb 15, platelet count PLATELETS 220 K/CMM 436-219 6347 /mm3 Feb 15, erythrocyte ESR 6 mm/hr [...] Jul 17, sodium, serum SODIUM 140 MEQ/L [phone] mmol/L Jul 17, potassium, serum POTASSIUM 3.8 [...] Dec 21, sodium, serum SODIUM 139 mmol/L 994-057 1179 Dec 21, potassium, serum POTASSIUM 4.0 mmol/L [...] 2013March 26, sodium, serum SODIUM 139 MEQ/L [phone] mmol/L March 26, potassium, serum POTASSIUM 4.1 [...] Jul 17, sodium, serum SODIUM 140 MEQ/L 152-007 1083 mmol/L Jul 17, potassium, serum POTASSIUM 3.8 [...] Dec 21, sodium, serum SODIUM 139 mmol/L [phone] Dec 21, potassium, serum POTASSIUM 4.0 mmol/L [...] 2014Feb 15, sodium, serum SODIUM 135 MEQ/L 985-873 8366 mmol/L Feb 15, potassium, serum POTASSIUM 3.8 [...]
--- OUTSIDE RECORDS SUMMARY | 2019-05-29 12:02 | XMS REPORT | Continuity of Care Document ---
:1975 Author Organization [facility] Care Team Providers Name Role Phone MD Garnett Zenithe Unavailable Unavailable Insurance Providers Payer name Policy type / Policy ID Covered constitution party ID Policy Gutierrez Coverage type MEDICARE B-[place]: [employer] MEDICARE B-[place]: [employer] Encounters Encounter Performer Location Date Lab Report Higinio Garnett MD [facility] Apr 11, 2015 Allergies, Adverse Reactions, Alerts [...] as needed for nausea/vomiting VITAMIN D (ERGOCALCIFEROL) 15523 Take 1 capsule by mouth April 04, [...] 2013Jul 17, platelet count PLATELETS 199 K/CMM 998-997 0787 /mm3 March 26, hemoglobin, blood HGB 9.8 g/dL 12.0-16.0 Low 2013March 26, hematocrit, blood HCT 32.7 % 36.0-48.0 Low 2013March 26, platelet count PLATELETS 268 K/CMM 631-485 6237 /mm3 March 26, erythrocyte ESR 39 mm/hr 0-20 High 2014 sedimentation rate Jul 17, hemoglobin, blood HGB 13.6 g/dL 12.0-16.0 2013Jul 17, hematocrit, blood HCT 41.8 % 36.0-48.0 2013Jul 17, platelet count PLATELETS 199 K/CMM 568-042 2952 /mm3 Feb 15, hemoglobin, blood HGB 15.5 g/dL 12.0-16.0 2014Feb 15, hematocrit, blood HCT 46.2 % 36.0-48.0 2014Feb 15, platelet count PLATELETS 220 K/CMM 234-173 5839 /mm3 Feb 15, erythrocyte ESR 6 mm/hr [...] Jul 17, sodium, serum SODIUM 140 MEQ/L 527-026 4006 mmol/L Jul 17, potassium, serum POTASSIUM 3.8 [...] Dec 21, sodium, serum SODIUM 139 mmol/L [phone] Dec 21, potassium, serum POTASSIUM 4.0 mmol/L [...] March 26, sodium, serum SODIUM 139 MEQ/L [phone] mmol/L March 26, potassium, serum POTASSIUM 4.1 [...] Jul 17, sodium, serum SODIUM 140 MEQ/L 875-706 9073 mmol/L Jul 17, potassium, serum POTASSIUM 3.8 [...] Dec 21, sodium, serum SODIUM 139 mmol/L [phone] Dec 21, potassium, serum POTASSIUM 4.0 mmol/L [...] 2014Feb 15, sodium, serum SODIUM 135 MEQ/L [phone] mmol/L Feb 15, potassium, serum POTASSIUM 3.8 [...]
--- OUTSIDE RECORDS SUMMARY | 2019-05-29 12:02 | XMS REPORT | Continuity of Care Document ---
:1975 Author Organization [facility] Care Team Providers Name Role Phone MD Garnett Zenithe Unavailable Unavailable Insurance Providers Payer name Policy type / Policy ID Covered libertarian ID Policy Gutierrez Coverage type [place]: [employer] is[employer]! MEDICARE [place]: [employer] Encounters Encounter Performer Location Date Office Visit Higinio Garnett MD [facility] March 22, 2015 [place] Allergies, Adverse Reactions, Alerts Type Substance Reaction [...] as needed for nausea/vomiting VITAMIN D (ERGOCALCIFEROL) 68462 Take 1 capsule by mouth April 04, [...] 2013Jul 17, platelet count PLATELETS 199 K/CMM 459-568 2295 /mm3 March 26, hemoglobin, blood HGB 9.8 g/dL 12.0-16.0 Low 2013March 26, hematocrit, blood HCT 32.7 % 36.0-48.0 Low 2013March 26, platelet count PLATELETS 268 K/CMM 486-116 4450 /mm3 March 26, erythrocyte ESR 39 mm/hr 0-20 High 2013 sedimentation rate Jul 17, hemoglobin, blood HGB 13.6 g/dL 12.0-16.0 2013Jul 17, hematocrit, blood HCT 41.8 % 36.0-48.0 2013Jul 17, platelet count PLATELETS 199 K/CMM 910-857 3124 /mm3 Feb 15, hemoglobin, blood HGB 15.5 g/dL 12.0-16.0 2014Feb 15, hematocrit, blood HCT 46.2 % 36.0-48.0 2014Feb 15, platelet count PLATELETS 220 K/CMM 279-056 7014 /mm3 Feb 15, erythrocyte ESR 6 mm/hr [...] Jul 17, sodium, serum SODIUM 140 MEQ/L [phone] mmol/L Jul 17, potassium, serum POTASSIUM 3.8 [...] Dec 21, sodium, serum SODIUM 139 mmol/L 750-018 8287 Dec 21, potassium, serum POTASSIUM 4.0 mmol/L [...] March 26, sodium, serum SODIUM 139 MEQ/L 716-263 9484 mmol/L March 26, potassium, serum POTASSIUM 4.1 [...] Jul 17, sodium, serum SODIUM 140 MEQ/L 879-041 2602 mmol/L Jul 17, potassium, serum POTASSIUM 3.8 [...] Dec 21, sodium, serum SODIUM 139 mmol/L 169-293 1294 Dec 21, potassium, serum POTASSIUM 4.0 mmol/L [...] 2014Feb 15, sodium, serum SODIUM 135 MEQ/L 200-956 7138 mmol/L Feb 15, potassium, serum POTASSIUM 3.8 [...]
--- OUTSIDE RECORDS SUMMARY | 2019-05-29 12:03 | XMS REPORT | Summary of Care ---
:1975 Author Organization [facility] Neurosurgery [facility] Address [address], [address] [place] [address]- Encounter HQ Darronr_malia(FIN) [id number] Date(s): 10/04/18 - 10/05/18 [facility] [id number] [address] [place] [address]- [phone] Vital Signs No data available for this section Problem List Condition Effective Dates Status Health Status Informant Acute pharyngitis1 05/09/15 Active Adjustment disorder with depressed 03/22/15 Active mood2, 3 Anemia(Confirmed) Active Ascites4, 5 01/10/15 Active Atypical chest pain6 07/17/14 Active Benign hypertension7 07/17/14 Active Chronic pain syndrome8 04/12/15 Active Cough9 03/24/14 Active Cyst of kidney(Confirmed) Resolved Diffuse spasm of soqrywwhv74 03/24/14 Active Diverticulitis(Confirmed) Active Dysfunctional uterine taawrzhr03, 12 12/10/14 Active Vhyywtg50, 14 12/10/14 Active Easy eypsdbie33 05/09/15 Active Elevated levels of transaminase & 07/17/14 Active lactic acid lxvsgtquqouaq08 Difficult airway(Confirmed) Resolved GERD - Gastro-esophageal reflux Active disease(Confirmed) H/O degenerative disc Resolved disease(Confirmed) Bradycardia(Confirmed) Resolved Bradycardia(Confirmed) Resolved Hiatal hernia(Confirmed) Active Hypertension(Confirmed) Active Incisional 10/03/14 Active Incomplete emptying of 03/24/14 Active Hbwfgokf28, 20 01/10/15 Active Iron deficiency wijakw24 03/24/14 Active Kidney stone22 03/24/14 Active Kidney stones(Confirmed) Resolved Aoexjbig64 04/12/15 Active Migraines(Confirmed) Resolved Moderate protein-calorie Active Acute ; malnutrition(Confirmed) Muscle pain24, 25 02/15/15 Active Colitis(Confirmed) Resolved Obesity(Confirmed) Active Raynaud disease(Confirmed) Active Cgvgyrenbs94 03/24/14 Active Scleroderma(Confirmed) Active Seizure(Confirmed) Active Seizure xdtpeujw03 03/24/14 Active Shortness of breath(Confirmed) Active Shoulder joint pain28 07/17/14 Active Tachycardia(Confirmed) Resolved 1Data migrated from [employer] on 05/15/15.2Data migrated from [employer] on 05/15/15.3Data migrated from [employer] on 04/10/15.4Data migrated from [employer] on 05/15/15.5Data migrated from [employer] on 04/10/15.6Data migrated from [employer] on 04/09/15.7Data migrated from [employer] on 04/09/15.8Data migrated from [employer] on 05/15/15.9Data migrated from [employer] on .10Data migrated from [employer] on 04/09/15.11Data migrated from [employer] on 05/15/15.12Data migrated from [employer] on 04/10/15.13Data migrated from [employer] on 05/15/15.14Data migrated from [employer] on .15Data migrated from [employer] on 05/15/15.16Data migrated from [employer] on 04/09/15.17Data migrated from [employer] on 04/09/15.18Data migrated from [employer] on 04/09/15.19Data migrated from [employer] on .20Data migrated from [employer] on 04/10/15.21Data migrated from [employer] on 04/09/15.22Data migrated from [employer] on 04/09/15.23Data migrated from [employer] on 05/15/15.24Data migrated from [employer] on .25Data migrated from [employer] on 04/10/15.26Data migrated from [employer] on 04/09/15.27Data migrated from [employer] on 04/09/15.28Data migrated from [employer] on 04/09/15. Allergies, Adverse Reactions, Alerts Substance Reaction Severity Status cephalosporins1 Active codeine2 Active meperidine3 Active clindamycin Active morphine4 Active zolpidem5 Active Zofran Active Demerol HCl Active esomeprazole6 Active NexIUM patient takes PROTONIX at home Active 1Data migrated from [employer] on 06/06/15. Originally documented as CEPHALOSPORINS. heart kvkafdcz1Uwot migrated from [employer] on 01/08/16. Originally documented as CODEINE. heart yofxlyja9Dezh migrated from [employer] on 03/07/15. Originally documented as DEMEROL. heart uqveuggb9Asaw migrated from [employer] on 03/07/15. Originally documented as MORPHINE. heart pimlpcpi3Ewvu migrated from [employer] on 05/16/15. Originally documented as AMBIEN. hallucinations when in the QTP7Hgcf migrated from [employer] on 03/07/15. Originally documented as NEXIUM. codeine Medications No data available for this section Results No data available for this section Immunizations Given and Recorded Vaccine Date Status Refusal Reason pneumococcal 23-valent vaccine 11/28/18 Given influenza virus vaccine, inactivated 11/28/18 Given pneumococcal 13-valent vaccine 09/24/16 Given Not Given Vaccine Date Status Refusal Reason pneumococcal 23-valent vaccine 06/07/14 Not Given Patient Refuses Procedures Procedure Date Related Diagnosis Body Site Status Upper gastrointestinal endoscopy 07/03/14 Completed Repair of diaphragmatic hernia1 06/03/14 Completed Roderick fundoplication 05/2014 Completed Esophagogastroduodenoscopy2 05/07/14 Completed Exploratory laparotomy 2007 Completed Operation 2007 Completed Operation 1992 Completed Tonsillectomy 1983 Completed Cholecystectomy Completed Operation3 Completed 1with jlzaepzmcpbjusymwvn1vwrjgymh exams with esophageal mrgmcwvxl7tjb esopheal swallowing problems, seveal done Social History Social History Type Response Alcohol Never, Frequency: 1-2 times per year. Previous treatment: None. Smoking Status Never smoker; Previous treatment: None; Ready to change: No; Exposure to Tobacco Smoke None; Cigarette Smoking Last 365 Days No; Reg Smoking Cessation Counseling No; Other Tobacco Frequency N0NE; entered on: 11/23/18 Assessment and Plan No data available for this section
--- OUTSIDE RECORDS SUMMARY | 2019-05-29 12:03 | XMS REPORT | Continuity of Care Document ---
:1975 Author Organization [facility] Care Team Providers Name Role Phone MD Garnett Zenithe Unavailable Unavailable Insurance Providers Payer name Policy type / Policy ID Covered republican ID Policy Gutierrez Coverage type MEDICARE [place]: [employer] [id number] MEDICARE B-[place]: [id number] Encounters Encounter Performer Location Date Office Visit Higinio Garnett MD [facility] May 09, 2015 [place] Allergies, Adverse Reactions, Alerts Type Substance Reaction [...] as needed for nausea/vomiting VITAMIN D (ERGOCALCIFEROL) 41155 Take 1 capsule by mouth April 04, [...] 2013Jul 17, platelet count PLATELETS 199 K/CMM 703-599 4325 /mm3 March 26, hemoglobin, blood HGB 9.8 g/dL 12.0-16.0 Low 2013March 26, hematocrit, blood HCT 32.7 % 36.0-48.0 Low 2013March 26, platelet count PLATELETS 268 K/CMM 232-680 5628 /mm3 March 26, erythrocyte ESR 39 mm/hr 0-20 High 2013 sedimentation rate Jul 17, hemoglobin, blood HGB 13.6 g/dL 12.0-16.0 2013Jul 17, hematocrit, blood HCT 41.8 % 36.0-48.0 2013Jul 17, platelet count PLATELETS 199 K/CMM 232-665 7662 /mm3 Feb 15, hemoglobin, blood HGB 15.5 g/dL 12.0-16.0 2014Feb 15, hematocrit, blood HCT 46.2 % 36.0-48.0 2014Feb 15, platelet count PLATELETS 220 K/CMM 649-297 9987 /mm3 Feb 15, erythrocyte ESR 6 mm/hr 0-20 2014 sedimentation rate May 09, hemoglobin, blood HGB 13.9 g/dL 12.0-16.0 2014May 09, hematocrit, blood HCT 42.6 % 36.0-48.0 2014May 09, platelet count PLATELETS 227 K/CMM 205-299 6151 /mm3 Jul 17, urine color UA COLOR [...] Jul 17, sodium, serum SODIUM 140 MEQ/L 884-103 8256 mmol/L Jul 17, potassium, serum POTASSIUM 3.8 [...] Dec 21, sodium, serum SODIUM 139 mmol/L 975-037 5501 Dec 21, potassium, serum POTASSIUM 4.0 mmol/L [...] March 26, sodium, serum SODIUM 139 MEQ/L 750-604 1177 mmol/L March 26, potassium, serum POTASSIUM 4.1 [...] Jul 17, sodium, serum SODIUM 140 MEQ/L 633-683 4049 mmol/L Jul 17, potassium, serum POTASSIUM 3.8 [...] Dec 21, sodium, serum SODIUM 139 mmol/L 920-799 8324 Dec 21, potassium, serum POTASSIUM 4.0 mmol/L [...] 2014Feb 15, sodium, serum SODIUM 135 MEQ/L 540-340 0452 mmol/L Feb 15, potassium, serum POTASSIUM 3.8 [...] May 09, sodium, serum SODIUM 140 MEQ/L 195-164 5240 mmol/L May 09, potassium, serum POTASSIUM 3.7 [...]
--- OUTSIDE RECORDS SUMMARY | 2019-05-29 12:03 | XMS REPORT | Summary of Care ---
:1975 Author Organization [facility] Address Unavailable , Encounter SCOTT Jerez(KIZZY) [id number] Date(s): 05/17/19 - 05/17/19 [facility] Discharge Disposition: Home or Self Care Attending Physician: Perfecto Anderson MD Referring Physician: Perfecto Anderson MD Vital Signs No data available for this section Problem List Condition Effective Dates Status Health Status Informant Acute pharyngitis1 05/09/15 Active Adjustment disorder with depressed 03/22/15 Active mood2, 3 Anemia(Confirmed) Active Ascites4, 5 01/10/15 Active Atypical chest pain6 07/17/14 Active Benign hypertension7 07/17/14 Active Chronic pain syndrome8 04/12/15 Active Cough9 03/24/14 Active Cyst of kidney(Confirmed) Resolved Diffuse spasm of ocecyjwma71 03/24/14 Active Diverticulitis(Confirmed) Active Dysfunctional uterine , 12 12/10/14 Active Lldykox92, 14 12/10/14 Active Easy zlwiouet39 05/09/15 Active Elevated levels of transaminase & 07/17/14 Active lactic acid xxijtwocisfnn91 Difficult airway(Confirmed) Resolved GERD - Gastro-esophageal reflux Active disease(Confirmed) H/O degenerative disc Resolved disease(Confirmed) Bradycardia(Confirmed) Resolved Bradycardia(Confirmed) Resolved Hiatal hernia(Confirmed) Active Hypertension(Confirmed) Active Incisional 10/03/14 Active Incomplete emptying of 03/24/14 Active Ejvfqizo89, 20 01/10/15 Active Iron deficiency lpvlpu43 03/24/14 Active Kidney stone22 03/24/14 Active Kidney stones(Confirmed) Resolved Eqslvyrh45 04/12/15 Active Migraines(Confirmed) Resolved Moderate protein-calorie Active Acute ; malnutrition(Confirmed) Muscle pain24, 25 02/15/15 Active Colitis(Confirmed) Resolved Obesity(Confirmed) Active Raynaud disease(Confirmed) Active Ylehrzdenf28 03/24/14 Active Scleroderma(Confirmed) Active Seizure(Confirmed) Active Seizure wlobpswe09 03/24/14 Active Shortness of breath(Confirmed) Active Shoulder [...] on 04/09/15.27Data migrated from [employer] on 6/2/15.28Data migrated from [employer] on 04/09/15. Allergies, Adverse Reactions, Alerts Substance Reaction Severity Status cephalosporins1 Active codeine2 Active meperidine3 Active clindamycin Active morphine4 Active zolpidem5 Active Zofran Active Demerol HCl Active esomeprazole6 Active NexIUM patient takes PROTONIX at home Active 1Data migrated from [employer] on 06/06/15. Originally documented as CEPHALOSPORINS. heart calzkjei2Mwzr migrated from [employer] on 01/08/16. Originally documented as CODEINE. heart ueuqfvng7Lnag migrated from [employer] on 03/07/15. Originally documented as DEMEROL. heart dlythizf3Zzsm migrated from [employer] on 03/07/15. Originally documented as MORPHINE. heart wrxsknjj5Rwbj migrated from [employer] on 05/16/15. Originally documented as AMBIEN. hallucinations when in the QJW0Mmmc migrated from [employer] on 03/07/15. Originally [...] 1983 Completed Cholecystectomy Completed Operation3 Completed 1with drbymmojwjzxqpnuidc6kbvqrome exams with esophageal krihtmwjz9jbb esopheal swallowing problems, seveal done Social History [...]
--- OUTSIDE RECORDS SUMMARY | 2019-05-29 12:07 | XMS REPORT ---
:1975 Author [facility] Address [address] [place] [address] Dr. Snider [address] [place] [id number] Care Team Providers Name Role Phone Unavailable Unavailable Unavailable Problems This patient has no known problems. Allergies, Adverse Reactions, Alerts This patient has no known allergies or adverse reactions. Medications This patient has no known medications.
[2019-05-29] MEDS ORDERED: HYDROMORPHONE HCL 1 MG/ML INJ ONE (12:13)
[2019-05-29] MEDS ORDERED: FAMOTIDINE 20 MG/2 ML VIAL IV ONE (12:13)
[2019-05-29 12:16] LABS: Absolute Lymphocytes (CBC) 1.6 K/uL (0.7-4.9); Basophils % 0.3 % (0-1.3); Eosinophils % 3.9 % (0-4.4); Hematocrit 21.4 % (36.0-45.0); Lymphocytes % 22.9 % (15.3-44.8); MPV 8.3 fL (7.6-11.3); Monocytes % 5.7 % (3.3-12.3); RBC Red Blood Cell Count 2.33 M/uL (3.86-4.86)
[2019-05-29 12:25] LABS: Protime INR 1.1
--- NOTE | 2019-05-29 12:32 | RAD REPORT ---
EXAM DESCRIPTION: [facility]iny Single View05/29/2019 12:27 pm CLINICAL HISTORY: Shortness of breath COMPARISON: October 2018 FINDINGS: The lungs appear clear of acute infiltrate. The heart is normal size IMPRESSION: No acute abnormalities displayed
[2019-05-29 12:43] LABS: ALT/SGPT 46 U/L (12-78); AST/SGOT 21 U/L (15-37); Albumin 2.9 g/dL (3.4-5.0); Alkaline Phosphatase 171 U/L (45-117); BUN Blood Urea Nitrogen 14 mg/dL (7-18); Bicarbonate 21 mmol/L (21-32); Bilirubin Direct < 0.1 mg/dL (0-0.2); Bilirubin Total 0.2 mg/dL (0.2-1.0); Glucose Level 96 mg/dL (74-106); Lipase 62 U/L (73-393); Magnesium 1.9 mg/dL (1.8-2.4); NT PRO-BNP 20 pg/mL (<125); Protein, Total 6.4 g/dL (6.4-8.2); Sodium Level 144 mmol/L (136-145); Troponin (Emerg Dept Use Only) < 0.02 ng/mL (0.0-0.045)
[2019-05-29 12:46] LABS: Potassium 2.9 mmol/L (3.5-5.1)
[2019-05-29] MEDS ORDERED: PANTOPRAZOLE 40 MG INJ ONE ×2 (13:27→13:50)
[2019-05-29] MEDS ORDERED: KCL 20 MEQ/100 mL IVPB 20 MEQ/100 ML BAG IV ONE (13:28)
--- NOTE | 2019-05-29 13:31 | ER ---
Nurse's Notes [facility] Name: Liza Dexter Age: 43 yrs Sex: Female : 1975 Arrival Date: 05/29/2019 Time: 11:12 Bed 26 Private MD: Es Parson Diagnosis: Anemia, unspecified;Hypokalemia;Gastrointestinal hemorrhage, unspecified;Abdominal tenderness Presentation: 05/29 11:13 Presenting complaint: Patient states: "My hemoglobin went from a 12 to a 7 in 4 days aa5 and I've gotten blood transfusions several times because I am internally bleeding". Labs today: Hemogloin 4.1 and Hematocrit 21.5. Pt c/o SOB and c/o feeling lightheaded. Pt also reports abd pain. Transition of care: patient was not received from another setting of care. Onset of symptoms was May 2019. Risk Assessment: Do you want to hurt yourself or someone else? Patient reports no desire to harm self or others. Initial Sepsis Screen: Does the patient meet any 2 criteria? No. Patient's initial sepsis screen is negative. Does the patient have a suspected source of infection? No. Patient's initial sepsis screen is negative. Care prior to arrival: None. 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 - Social history:: Smoking status: Patient/guardian denies using tobacco. - Ebola Screening: : No symptoms or risks identified at this time. - Family history:: not pertinent. Screenin:05 Abuse screen: Denies threats or abuse. Denies injuries from another. Nutritional aj1 screening: No deficits noted. Tuberculosis screening: No symptoms or risk factors identified. 16:26 Fall Risk None identified. aj1 Assessment: 12:05 General: Appears in no apparent distress. comfortable, Behavior is calm, cooperative, aj1 appropriate for age. Pain: Complains of pain in epigastric area Pain does not radiate. Pain currently is 10 out of 10 on a pain scale. Quality of pain is described as sharp. Neuro: Level of Consciousness is awake, alert, obeys commands, Oriented to person, place, time, situation. Cardiovascular: Denies chest pain, Heart tones S1 S2 present Patient's skin is warm and dry. Rhythm is sinus rhythm. Respiratory: Reports shortness of breath on exertion Airway is patent Respiratory effort is even, unlabored, Respiratory pattern is regular, symmetrical, Breath sounds are clear bilaterally. GI: Abdomen is non-distended, Bowel sounds present X 4 quads. Abd is soft X 4 quads Reports bloody stool. : No signs and/or symptoms were reported regarding the genitourinary system. EENT: No signs and/or symptoms were reported regarding the EENT system. Derm: No signs and/or symptoms reported regarding the dermatologic system. Skin is pink, warm \\T\\ dry. normal. Musculoskeletal: No signs and/or symptoms reported regarding the musculoskeletal system. Circulation, motion, and sensation intact. 13:15 Reassessment: Patient appears in no apparent distress at this time. No changes from aj1 previously documented assessment. Patient and/or family updated on plan of care and expected duration. Pain level reassessed. Patient is alert, oriented x 3, equal unlabored respirations, skin warm/dry/pink. Pain has decreased some since administration of Dilaudid. 14:15 Reassessment: Patient and/or family updated on plan of care and expected duration. Pain aj1 level reassessed. General: Appears in no apparent distress. comfortable, Behavior is calm, cooperative, appropriate for age. Neuro: Level of Consciousness is awake, alert, obeys commands, Oriented to person, place, time, situation. Cardiovascular: Patient's skin is warm and dry. Rhythm is sinus rhythm. Respiratory: Airway is patent Respiratory effort is even, unlabored, Respiratory pattern is regular, symmetrical. GI: Abdomen is non-distended. Derm: No signs and/or symptoms reported regarding the dermatologic system. Skin is pale. Musculoskeletal: No signs and/or symptoms reported regarding the musculoskeletal system. Circulation, motion, and sensation intact. 15:00 Reassessment: Blood transfusion started, see transfusion record for more details. aj1 Vital Signs: 11:16 BP 113 / 61; Pulse 92; Resp 16 S; Temp 97.8(TE); Pulse Ox 100% on R/A; Weight 94.35 kg aa5 (R); Height 5 ft. 6 in. (167.64 cm) (R); Pain 8/10; 12:15 BP 106 / 75; Pulse 87; Resp 18; Pulse Ox 100% on R/A; aj1 13:15 BP 113 / 64; Pulse 77; Resp 16; Pulse Ox 100% on R/A; aj1 14:15 BP 107 / 59; Pulse 73; Resp 18; Pulse Ox 100% on R/A; aj1 15:15 BP 105 / 62; Pulse 85; Resp 18; Temp 97.8(TE); Pulse Ox 100% on R/A; aj1 16:00 BP 103 / 59; Pulse 82; Resp 18; Temp 97.9; Pulse Ox 100% on R/A; aj1 11:16 Body Mass Index 33.57 (94.35 kg, 167.64 cm) aa5 ED Course: 11:12 Patient arrived in ED. as 11:12 Es Parson MD is Private Physician. as 11:13 Arm band placed on. aa5 11:15 Triage completed. aa5 11:18 Benjamín Mcfarland MD is Attending Physician. [facility] 11:20 Sophia Bennett RN is Primary Nurse. aj1 11:55 Initial lab(s) drawn, by pa, sent to lab. T\\T\\S collected, blood band applied to patient. aj1 Inserted saline lock: 20 gauge in right antecubital area, using aseptic technique. Blood collected. 12:05 Patient has correct armband on for positive identification. aj1 12:05 No provider procedures requiring assistance completed. aj1 12:27 X-ray completed. Portable x-ray completed in exam room. Patient tolerated procedure jb2 well. 12:27 Notified ED physician of a critical lab result(s). Hgb=7.0. iw 12:29 XRAY Chest (1 view) In Process Unspecified. EDMS 14:00 Inserted saline lock: 22 gauge in right forearm, using aseptic technique. aj1 15:32 Report given to CAROLANN Melgoza at [place]. aj1 16:26 Patient transferred, IV remains in place. aj1 Administered Medications: 12:00 Drug: Pepcid 20 mg Route: IVP; Site: right antecubital; aj1 13:00 Follow up: Response: No adverse reaction aj1 12:00 Drug: Dilaudid 1 mg Route: IVP; Site: right antecubital; aj1 13:00 Follow up: Response: No adverse reaction aj1 13:59 Drug: ProTONIX 40 mg Route: IVP; Site: right antecubital; aj1 14:00 Follow up: Response: No adverse reaction aj1 14:00 Drug: Potassium Chloride 20 mEq Route: IV; Rate: per protocol; Site: right forearm; aj1 16:23 Follow up: IV Status: Completed infusion; IV Intake: 100ml aj1 14:53 Drug: Tylenol 650 mg Route: PO; aj1 16:23 Follow up: Response: No adverse reaction aj1 14:53 Drug: Benadryl 12.5 mg Route: IVP; Site: right antecubital; aj1 16:24 Follow up: Response: No adverse reaction; Nausea is decreased aj1 16:00 Drug: Phenergan 12.5 mg Route: IVP; Site: right forearm; aj1 16:24 Follow up: Response: No adverse reaction; Nausea is decreased aj1 16:23 Drug: Dilaudid 0.5 mg Route: IVP; Site: right forearm; aj1 16:25 Follow up: Response: No adverse reaction aj1 Intake: 16:23 IV: 100ml; Total: 100ml. aj1 Outcome: 13:30 ER care complete, transfer ordered by . apola 16:27 Transferred by ground EMS to [facility]. aj1 16:27 Condition: stable 16:27 Discharge instructions given to patient, Instructed on the need for transfer. 16:33 Patient left the ED. aj1 Signatures: Dispatcher [employer] EDMS Sophia Bennett RN RN aj1 Benjamín Mcfarland MD MD cha Buechter, Jesse jb2 Martinez, Amelia as Williams, Irene, RN RN iw Jimenez, Jocelin, RN RN aa5
--- NOTE | 2019-05-29 13:32 | EDPHYS ---
Physician Documentation [facility] – [place], [place] Name: Liza Dexter Age: 43 yrs Sex: Female : 1975 Arrival Date: 05/29/2019 Time: 11:12 Bed 26 Private MD: Es Parson ED Physician Benjamín Mcfarland HPI: 05/29 12:19 This 43 yrs old Female presents to ER via Ambulatory with complaints of paola Abnormal Lab Results. 12:19 The patient presents with abdominal pain in the lower abdomen, in the left upper paola quadrant, in the left lower quadrant. Onset: The symptoms/episode began/occurred 2 day(s) ago. The patient presents to the emergency department with rectal bleeding. Onset: The symptoms/episode began/occurred 3 day(s) ago. Abdominal pain: located in the left upper quadrant and left lower quadrant. Modifying factors: The symptoms are alleviated by nothing, the symptoms are aggravated by nothing. hx of esophagectomy, gastrectomy. Associated signs and symptoms: Pertinent positives: dizziness when standing, near-syncope. Associated signs and symptoms: Pertinent positives: anorexia, blood in stools, nausea. 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 - Social history:: Smoking status: Patient/guardian denies using tobacco. - Ebola Screening: : No symptoms or risks identified at this time. - Family history:: not pertinent. ROS: 12:19 Constitutional: Negative for fever, chills, and weight loss, Eyes: Negative for injury, paola pain, redness, and discharge, ENT: Negative for injury, pain, and discharge, Neck: Negative for injury, pain, and swelling, Cardiovascular: Negative for chest pain, palpitations, and edema, Respiratory: Negative for shortness of breath, cough, wheezing, and pleuritic chest pain, Back: Negative for injury and pain, : Negative for injury, bleeding, discharge, and swelling, MS/Extremity: Negative for injury and deformity, Neuro: Negative for headache, weakness, numbness, tingling, and seizure, Psych: Negative for depression, anxiety, suicide ideation, homicidal ideation, and hallucinations, Allergy/Immunology: Negative for hives, rash, and allergies, Endocrine: Negative for neck swelling, polydipsia, polyuria, polyphagia, and marked weight changes, Hematologic/Lymphatic: Negative for swollen nodes, abnormal bleeding, and unusual bruising. 12:19 Abdomen/GI: Positive for abdominal pain, of the left upper quadrant and left lower quadrant. 12:19 Skin: Positive for pallor. Exam: 12:19 Constitutional: This is a well developed, well nourished patient who is awake, alert, paola and in no acute distress. Head/Face: Normocephalic, atraumatic. Eyes: Pupils equal round and reactive to light, extra-ocular motions intact. Lids and lashes normal. Conjunctiva and sclera are non-icteric and not injected. Cornea within normal limits. Periorbital areas with no swelling, redness, or edema. ENT: Nares patent. No nasal discharge, no septal abnormalities noted. Tympanic membranes are normal and external auditory canals are clear. Oropharynx with no redness, swelling, or masses, exudates, or evidence of obstruction, uvula midline. Mucous membranes moist. Neck: Trachea midline, no thyromegaly or masses palpated, and no cervical lymphadenopathy. Supple, full range of motion without nuchal rigidity, or vertebral point tenderness. No Meningismus. Chest/axilla: Normal chest wall appearance and motion. Nontender with no deformity. No lesions are appreciated. Cardiovascular: Regular rate and rhythm with a normal S1 and S2. No gallops, murmurs, or rubs. Normal PMI, no JVD. No pulse deficits. Respiratory: Lungs have equal breath sounds bilaterally, clear to auscultation and percussion. No rales, rhonchi or wheezes noted. No increased work of breathing, no retractions or nasal flaring. Back: No spinal tenderness. No costovertebral tenderness. Full range of motion. Skin: Warm, dry with normal turgor. Normal color with no rashes, no lesions, and no evidence of cellulitis. MS/ Extremity: Pulses equal, no cyanosis. Neurovascular intact. Full, normal range of motion. Neuro: Awake and alert, GCS 15, oriented to person, place, time, and situation. Cranial nerves II-XII grossly intact. Motor strength 5/5 in all extremities. Sensory grossly intact. Cerebellar exam normal. Normal gait. Psych: Awake, alert, with orientation to person, place and time. Behavior, mood, and affect are within normal limits. 12:19 Abdomen/GI: Inspection: abdomen appears normal, Bowel sounds: normal, Palpation: mild abdominal tenderness, in the left upper quadrant and left lower quadrant, Rectal exam: rectal tone normal, Stool: guaiac positive, black, hemorrhoid(s), are not appreciated, mass, is not appreciated, swelling, is not appreciated, tenderness, is not appreciated, Liver: no appreciated palpable abnormalities, Hernia: not appreciated. Vital Signs: 11:16 BP 113 / 61; Pulse 92; Resp 16 S; Temp 97.8(TE); Pulse Ox 100% on R/A; Weight 94.35 kg aa5 (R); Height 5 ft. 6 in. (167.64 cm) (R); Pain 8/10; 12:15 BP 106 / 75; Pulse 87; Resp 18; Pulse Ox 100% on R/A; aj1 13:15 BP 113 / 64; Pulse 77; Resp 16; Pulse Ox 100% on R/A; aj1 14:15 BP 107 / 59; Pulse 73; Resp 18; Pulse Ox 100% on R/A; aj1 15:15 BP 105 / 62; Pulse 85; Resp 18; Temp 97.8(TE); Pulse Ox 100% on R/A; aj1 16:00 BP 103 / 59; Pulse 82; Resp 18; Temp 97.9; Pulse Ox 100% on R/A; aj1 11:16 Body Mass Index 33.57 (94.35 kg, 167.64 cm) aa5 MDM: 11:18 Patient medically screened. [facility] 12:28 Data reviewed: vital signs, nurses notes, lab test result(s), EKG, radiologic studies, [facility] plain films. 05/29 11:20 Order name: Basic Metabolic Panel [facility] 05/29 11:20 Order name: CBC with Diff [facility] 05/29 11:20 Order name: LFT's [facility] 05/29 11:20 Order name: Magnesium [facility] 05/29 11:20 Order name: NT PRO-BNP; Complete Time: 13:07 [facility] 05/29 11:20 Order name: PT-INR; Complete Time: 13:07 [facility] 05/29 11:20 Order name: Troponin (emerg Dept Use Only); Complete Time: 13:07 [facility] 05/29 11:20 Order name: Lipase; Complete Time: 13:07 [facility] 05/29 11:20 Order name: Type And Screen [facility] 05/29 11:23 Order name: Basic Metabolic Panel; Complete Time: 13:07 [facility] 05/29 11:23 Order name: CBC with Automated Diff [facility] 05/29 11:23 Order name: Liver (Hepatic) Function; Complete Time: 13:07 [facility] 05/29 11:23 Order name: Magnesium; Complete Time: 13:07 [facility] 05/29 12:42 Order name: Packed RBC Leukored [facility] 05/29 11:20 Order name: XRAY Chest (1 view); Complete Time: 13:07 [facility] 05/29 11:20 Order name: EKG; Complete Time: 11:23 [facility] 05/29 11:20 Order name: Cardiac monitoring; Complete Time: 11:59 [facility] 05/29 11:20 Order name: EKG - Nurse/Tech; Complete Time: 11:37 [facility] 05/29 11:20 Order name: IV Saline Lock; Complete Time: 11:59 [facility] 05/29 11:20 Order name: Labs collected and sent; Complete Time: 12:00 [facility] 05/29 11:20 Order name: O2 Per Protocol; Complete Time: 12:00 [facility] 05/29 13:43 Order name: CBC Smear Scan [facility] 05/29 11:20 Order name: O2 Sat Monitoring; Complete Time: 12:00 [facility] 05/29 13:07 Order name: IV Saline Lock - Large Bore; Complete Time: 13:08 [facility] Administered Medications: 12:00 Drug: Pepcid 20 mg Route: IVP; Site: right antecubital; aj1 13:00 Follow up: Response: No adverse reaction aj1 12:00 Drug: Dilaudid 1 mg Route: IVP; Site: right antecubital; aj1 13:00 Follow up: Response: No adverse reaction aj1 13:59 Drug: ProTONIX 40 mg Route: IVP; Site: right antecubital; aj1 14:00 Follow up: Response: No adverse reaction aj 14:00 Drug: Potassium Chloride 20 mEq Route: IV; Rate: per protocol; Site: right forearm; aj1 16:23 Follow up: IV Status: Completed infusion; IV Intake: 100ml aj 14:53 Drug: Tylenol 650 mg Route: PO; 16:23 Follow up: Response: No adverse reaction 14:53 Drug: Benadryl 12.5 mg Route: IVP; Site: right antecubital; aj1 16:24 Follow up: Response: No adverse reaction; Nausea is decreased aj 16:00 Drug: Phenergan 12.5 mg Route: IVP; Site: right forearm; aj1 16:24 Follow up: Response: No adverse reaction; Nausea is decreased 16:23 Drug: Dilaudid 0.5 mg Route: IVP; Site: right forearm; aj 16:25 Follow up: Response: No adverse reaction aj Disposition: 05/29/19 13:30 Transfer ordered to Other Acute Care Facility. Diagnosis are Anemia, unspecified, Hypokalemia, Gastrointestinal hemorrhage, unspecified, Abdominal tenderness. - Reason for transfer: Higher level of care. - Accepting physician is to [facility]. - Condition is Fair. - Problem is new. - Symptoms have improved. Signatures: Dispatcher [employer] Sophia Jimenes RN RN aj1 Benjamín Mcfarland MD MD cha Williams, Irene, RN RN Jocelin Jimenez RN RN aa5 Corrections: (The following items were deleted from the chart) 16:33 13:30 05/29/2019 13:30 Transfer ordered to Other Acute Care Facility. Diagnosis is aj1 Anemia, unspecified; Hypokalemia; Gastrointestinal hemorrhage, unspecified; Abdominal tenderness. Reason for transfer: Higher level of care. Accepting physician is to [facility]. Condition is Fair. Problem is new. Symptoms have improved. paola
[2019-05-29 13:41] LABS: Anisocytosis 2+; Blood Morphology Comment NOTED (NOT SEEN); Platelet Estimate ADEQ; Urine White Blood Cell Casts OK
[2019-05-29 13:42] LABS: Hypochromasia 1+; Teardrop Cell 1+
[2019-05-29] MEDS ORDERED: NA CHLORIDE 0.9% 500 ML ONE (14:20)
[2019-05-29] MEDS ORDERED: ACETAMINOPHEN 325 MG TABLET ONE (15:03)
[2019-05-29] MEDS ORDERED: DIPHENHYDRAMINE 50 MG/ML VIAL ONE (15:04)
[2019-05-29] MEDS ORDERED: NA CHLORIDE 0.9% 250 ML ONE (15:04)
--- NOTE | 2019-05-29 15:17 | EKG ---
Test Date: 2019-05-29 Test Time: 11:26:15 Web Database Developer: CRISTY MEASUREMENT RESULTS: Intervals: Rate: 84 WV: 160 QRSD: 82 QT: 392 QTc: 463 [place]: P: 51 WV: 160 QRS: 20 T: 2 INTERPRETIVE STATEMENTS: Normal sinus rhythm Nonspecific ST and T wave abnormality Prolonged QT Abnormal ECG Compared to ECG 05/24/2019 21:59:14 ST (T wave) deviation now present Prolonged QT interval now present Electronically Signed On 05-29-19 15:17:54 CDT by Patrice Blanco
[2019-05-29] MEDS ORDERED: PROMETHAZINE 25 MG/ML VIAL ONE (15:57)
[2019-05-29] MEDS ORDERED: HYDROMORPHONE HCL 0.5 MG/0.5 ML INJ ONE (16:35)
[2019-05-29 18:35] VITALS: O2SAT 100
[2019-05-29 18:41] VITALS: BP 103/59; TEMP 97.9
== END 2019-05-29 16:33 ==
LOC: ER 11:08
DX: D64.9 Anemia, unspecified (principal); E87.6 Hypokalemia; K92.2 Gastrointestinal hemorrhage, unspecified; Z88.5 Allergy status to narcotic agent; Z88.2 Allergy status to sulfonamides; Z88.8 Allergy status to other drugs, medicaments and biological substances
CPT/HCPCS: 93005; 85025; 80048; 36415; 86900; 83735; 86850; 85610; 86901; 80076; 84484; 83690; 83880; 71045; 99285; J2550; C9113 ×2; J1170 ×2; P9016

== ENCOUNTER 2019-08-12 02:00 | Emergency (ER) | payer OTHER ==
[2019-08-12] MEDS ORDERED: PROMETHAZINE 25 MG/ML VIAL ONE (03:39)
[2019-08-12] MEDS ORDERED: HYDROMORPHONE HCL 1 MG/ML INJ ONE ×2 (03:40→05:31)
[2019-08-12 03:48] LABS: Absolute Lymphocytes (CBC) 1.8 K/uL (0.7-4.9); Basophils % 0.9 % (0-1.3); Hematocrit 35.4 % (36.0-45.0); RBC Red Blood Cell Count 3.89 M/uL (3.86-4.86)
[2019-08-12 03:49] LABS: Protime INR 0.97
[2019-08-12 04:15] LABS: ALT/SGPT 47 U/L (12-78); AST/SGOT 33 U/L (15-37); Albumin 3.5 g/dL (3.4-5.0); Alkaline Phosphatase 146 U/L (45-117); BUN Blood Urea Nitrogen 10 mg/dL (7-18); Bicarbonate 26 mmol/L (21-32); Bilirubin Direct < 0.1 mg/dL (0-0.2); Bilirubin Total 0.2 mg/dL (0.2-1.0); Glucose Level 88 mg/dL (74-106); Lipase 151 U/L (73-393); Magnesium 1.9 mg/dL (1.8-2.4); NT PRO-BNP 33 pg/mL (<125); Protein, Total 7.2 g/dL (6.4-8.2); Sodium Level 140 mmol/L (136-145); Troponin (Emerg Dept Use Only) < 0.02 ng/mL (0.0-0.045)
[2019-08-12 05:23] LABS: Urine Blood NEGATIVE (NEG); Urine Glucose NEGATIVE (NEG); Urine Protein NEGATIVE (NEG)
[2019-08-12] MEDS ORDERED: POTASSIUM 25 MEQ EFFERV TAB ONE (05:31)
--- NOTE | 2019-08-12 05:36 | ER ---
Nurse's Notes [facility] Name: Liza Dexter Age: 43 yrs Sex: Female : 1975 Arrival Date: 08/12/2019 Time: 02:02 Bed 7 Private MD: Diagnosis: Chest pain. Generalized pain. Hypokalemia Presentation: 08/12 02:45 Presenting complaint: Patient states: she is having chest pain and chest pain all over bb for several days and she is unable to eat and is having difficulty urinating. Transition of care: patient was not received from another setting of care. Onset of symptoms was August 08, 2019. Risk Assessment: Do you want to hurt yourself or someone else? Patient reports no desire to harm self or others. Initial Sepsis Screen: Does the patient meet any 2 criteria? No. Patient's initial sepsis screen is negative. Does the patient have a suspected source of infection? No. Patient's initial sepsis screen is negative. Care prior to arrival: None. 02:45 Method Of Arrival: Ambulatory bb 02:45 Acuity: JUAN 3 bb Historical: - Allergies: 02:47 ambien; bb 02:47 CEPHALOSPORINS; bb 02:47 Codeine; bb 02:47 Demerol; bb 02:47 Morphine; bb 02:47 Nexium; bb 02:47 Sulfa (Sulfonamide Antibiotics); bb 02:47 Zofran; bb - PMHx: 02:47 Anemia; Crohn's Disease; Colitis; Raynaud's syndrome; Scleroderma; Seizures; Lupus; bb - Immunization history:: Adult Immunizations up to date. - Social history:: Smoking status: unknown. - Ebola Screening: : No symptoms or risks identified at this time. Screenin:30 Abuse screen: Denies threats or abuse. Nutritional screening: No deficits noted. bb Tuberculosis screening: No symptoms or risk factors identified. Fall Risk None identified. Assessment: 02:30 General: Appears in no apparent distress. uncomfortable, Behavior is calm, cooperative. bb Pain: Complains of pain in generalized Pain does not radiate. Pain began 2-3 days ago. Neuro: Level of Consciousness is awake, alert, obeys commands, Oriented to person, place, time, situation. Cardiovascular: Heart tones S1 S2 present Capillary refill < 3 seconds Patient's skin is warm and dry. Respiratory: Respiratory effort is even, unlabored, Respiratory pattern is regular. GI: Abdomen is non-distended. Derm: Skin is pink, warm \T\ dry. Bruising that is brown, on bilateral lower extremities. Musculoskeletal: Circulation, motion, and sensation intact. 03:30 Reassessment: No changes from previously documented assessment. Patient is alert, bb oriented x 3, equal unlabored respirations, skin warm/dry/pink. pt resting quietly, family at bedside. 04:50 Reassessment: Patient is alert, oriented x 3, equal unlabored respirations, skin bb warm/dry/pink. pt reports epigastric pain Dr Mac notified no new orders received pt assisted to bathroom via wheelchair. 05:59 Reassessment: Patient and/or family updated on plan of care and expected duration. Pain ea level reassessed. Patient is alert, oriented x 3, equal unlabored respirations, skin warm/dry/pink. Discharge instruction given to patient, verbalized the understanding of instruction. Pt left via wheelchair accompanied by family. Pt assisted to private vehicle per staff, pt tolerated well. Vital Signs: 02:47 BP 118 / 75; Pulse 91; Resp 16 S; Temp 97.7(O); Pulse Ox 100% on R/A; Weight 91.63 kg bb (R); Height 5 ft. 6 in. (167.64 cm) (R); Pain 8/10; 04:30 BP 129 / 81; Pulse 81; Resp 16 S; Pulse Ox 100% on R/A; bb 05:45 BP 125 / 87; Pulse 80; Resp 18; Temp 97.8; Pulse Ox 99% ; Pain 5/10; ea 02:47 Body Mass Index 32.60 (91.63 kg, 167.64 cm) bb ED Course: 02:02 Patient arrived in ED. ds1 02:16 Zane Mac MD is Attending Physician. pkl 02:30 Patient has correct armband on for positive identification. Bed in low position. Call bb light in reach. Side rails up X 1. Adult w/ patient. Pulse ox on. NIBP on. Warm blanket given. 02:30 No provider procedures requiring assistance completed. Patient maintains SpO2 bb saturation greater than 95% on room air. 02:40 Initial lab(s) drawn, by me, sent to lab. Missed attempt(s): 20 gauge in right bb antecubital area. Bleeding controlled, band aid applied, catheter tip intact. 02:46 Triage completed. bb 02:47 Arm band placed on Patient placed in an exam room, on a stretcher, on pulse oximetry. bb Family accompanied patient. 03:06 Wendy Sunshine, RN is Primary Nurse. bb 03:10 X-ray completed. Portable x-ray completed in exam room. Patient tolerated procedure kw well. 03:11 XRAY Chest (1 view) In Process Unspecified. EDMS 05:59 Patient did not have IV access during this emergency room visit. ea Administered Medications: 04:04 Not Given (Other Intervention Used): Dilaudid 1 mg IVP once; RASS on ADMIN: Combtv4, bb Very Agttd3, Agttd2, Rstlss1, AlertClm0, Drwsy-1, Lt Sdtn-2, Mod Sdtn-3, Dp Sdtn-4, UnArsble-5 04:04 Not Given (Other Intervention Used): Phenergan 12.5 mg IVP once bb 04:06 Drug: Dilaudid 1 mg {Note: RASS 0.} Route: IM; Site: right gluteus; bb 05:00 Follow up: Response: No change in condition; RASS: Alert and Calm (0) bb 04:07 Drug: Phenergan 12.5 mg Route: IM; Site: right ventrogluteal; bb 05:39 Follow up: Response: No adverse reaction bb 05:39 Drug: Dilaudid 1 mg Route: IM; Site: right ventrogluteal; bb 06:03 Follow up: Response: No adverse reaction ea 05:39 Drug: K-Lyte Effervescent Tablet 50 mEq Route: PO; bb 06:03 Follow up: Response: No adverse reaction ea Outcome: 05:36 Discharge ordered by . pkanbil 05:59 Discharged to home ambulatory, with family. ea 05:59 Condition: stable 05:59 Discharge instructions given to patient, Instructed on discharge instructions, follow up and referral plans. medication usage, Demonstrated understanding of instructions, follow-up care, medications, Prescriptions given X 1. 06:02 Patient left the ED. ea Signatures: Dispatcher [facility] Zane Mac MD MD pkl Sanford, Demi ds1 Wendy Sunshine, RN RN bb Smita Márquez Elena, RN RN ea Corrections: (The following items were deleted from the chart) 04:05 04:05 Dilaudid 1 mg IM in right gluteus celia yang
--- NOTE | 2019-08-12 05:37 | EDPHYS ---
Physician Documentation [facility] Name: Liza Dexter Age: 43 yrs Sex: Female : 1975 Arrival Date: 08/12/2019 Time: 02:02 Bed 7 Private MD: ED Physician Zane Mac HPI: 08/12 03:02 This 43 yrs old Female presents to ER via Ambulatory with complaints of Chest pkl Pain, Pain All Over. 03:02 The patient or guardian reports chest pain that is located primarily in the substernal pkl area. Onset: 1 week(s) ago. The pain does not radiate. Associated signs and symptoms: Pertinent positives: abdominal pain. The chest pain is described as dull. The patient has experienced similar episodes in the past, several times. Historical: - Allergies: 02:47 ambien; bb 02:47 CEPHALOSPORINS; bb 02:47 Codeine; bb 02:47 Demerol; bb 02:47 Morphine; bb 02:47 Nexium; bb 02:47 Sulfa (Sulfonamide Antibiotics); bb 02:47 Zofran; bb - PMHx: 02:47 Anemia; Crohn's Disease; Colitis; Raynaud's syndrome; Scleroderma; Seizures; Lupus; bb - Immunization history:: Adult Immunizations up to date. - Social history:: Smoking status: unknown. - Ebola Screening: : No symptoms or risks identified at this time. ROS: 03:02 Eyes: Negative for injury, pain, redness, and discharge, ENT: Negative for injury, pkl pain, and discharge, Neck: Negative for injury, pain, and swelling. 03:02 Cardiovascular: Positive for chest pain. 03:02 Respiratory: Negative for cough, shortness of breath. 03:02 Abdomen/GI: Positive for abdominal pain, of the right upper quadrant and left upper quadrant. 03:02 Back: Negative for acute changes. 03:02 : Negative for urinary symptoms. 03:02 MS/extremity: Negative for acute changes. 03:02 Skin: Negative for rash. 03:02 Neuro: Negative for altered mental status. Exam: 03:02 Head/Face: Normocephalic, atraumatic. Eyes: Pupils equal round and reactive to light, pkl extra-ocular motions intact. Lids and lashes normal. Conjunctiva and sclera are non-icteric and not injected. Cornea within normal limits. Periorbital areas with no swelling, redness, or edema. ENT: Nares patent. No nasal discharge, no septal abnormalities noted. Tympanic membranes are normal and external auditory canals are clear. Oropharynx with no redness, swelling, or masses, exudates, or evidence of obstruction, uvula midline. Mucous membranes moist. Neck: Trachea midline, no thyromegaly or masses palpated, and no cervical lymphadenopathy. Supple, full range of motion without nuchal rigidity, or vertebral point tenderness. No Meningismus. Chest/axilla: Normal chest wall appearance and motion. Nontender with no deformity. No lesions are appreciated. Cardiovascular: Regular rate and rhythm with a normal S1 and S2. No gallops, murmurs, or rubs. Normal PMI, no JVD. No pulse deficits. Respiratory: Lungs have equal breath sounds bilaterally, clear to auscultation and percussion. No rales, rhonchi or wheezes noted. No increased work of breathing, no retractions or nasal flaring. 03:02 Abdomen/GI: Bowel sounds: normal, Palpation: soft, mild abdominal tenderness, in the right upper quadrant and left upper quadrant. 03:02 Back: Exam negative for acute changes. 03:02 : Exam negative for acute changes. 03:02 Musculoskeletal/extremity: Exam is negative for acute changes. 03:02 Skin: Exam negative for rash. 03:02 Neuro: Orientation: is normal, Mentation: is normal, Cranial nerves: grossly normal, Motor: is normal. Vital Signs: 02:47 BP 118 / 75; Pulse 91; Resp 16 S; Temp 97.7(O); Pulse Ox 100% on R/A; Weight 91.63 kg bb (R); Height 5 ft. 6 in. (167.64 cm) (R); Pain 8/10; 04:30 BP 129 / 81; Pulse 81; Resp 16 S; Pulse Ox 100% on R/A; bb 05:45 BP 125 / 87; Pulse 80; Resp 18; Temp 97.8; Pulse Ox 99% ; Pain 5/10; ea 02:47 Body Mass Index 32.60 (91.63 kg, 167.64 cm) bb MDM: 02:16 Patient medically screened. pkl 05:34 Data reviewed: vital signs, nurses notes, lab test result(s), EKG, radiologic studies, pkl plain films. 08/12 03:00 Order name: Basic Metabolic Panel; Complete Time: 04:48 pkl 08/12 03:00 Order name: CBC with Diff; Complete Time: 04:06 pkl 08/12 03:00 Order name: LFT's; Complete Time: 04:48 pkl 08/12 03:00 Order name: Magnesium; Complete Time: 04:48 pkl 08/12 03:00 Order name: NT PRO-BNP; Complete Time: 04:48 pkl 08/12 03:00 Order name: PT-INR; Complete Time: 04:06 pkl 08/12 03:00 Order name: Troponin (emerg Dept Use Only); Complete Time: 04:48 pkl 08/12 03:00 Order name: Lipase; Complete Time: 04:48 pkl 08/12 03:05 Order name: UA pkl 08/12 03:05 Order name: UDS pkl 08/12 03:06 Order name: Urine Drug Screen; Complete Time: 06:08 EDMS 08/12 05:11 Order name: Urine Dipstick--Ancillary (enter results); Complete Time: 05:30 em1 08/12 05:11 Order name: Urine --Ancillary (enter results); Complete Time: 05:30 em1 08/12 03:00 Order name: XRAY Chest (1 view) pkl 08/12 03:00 Order name: EKG; Complete Time: 03:02 pkl 08/12 03:00 Order name: Cardiac monitoring; Complete Time: 04:56 pkl 08/12 03:00 Order name: EKG - Nurse/Tech; Complete Time: 04:56 pkl 08/12 03:00 Order name: IV Saline Lock; Complete Time: 04:56 pkl 08/12 03:00 Order name: Labs collected and sent; Complete Time: 04:56 pkl 08/12 03:00 Order name: O2 Per Protocol; Complete Time: 04:56 pkl 08/12 03:00 Order name: O2 Sat Monitoring; Complete Time: 04:56 pkl 08/12 05:22 Order name: Urine Microscopic Only; Complete Time: 06:08 EDMS Administered Medications: 04:04 Not Given (Other Intervention Used): Dilaudid 1 mg IVP once; RASS on ADMIN: Combtv4, bb Very Agttd3, Agttd2, Rstlss1, AlertClm0, Drwsy-1, Lt Sdtn-2, Mod Sdtn-3, Dp Sdtn-4, UnArsble-5 04:04 Not Given (Other Intervention Used): Phenergan 12.5 mg IVP once bb 04:06 Drug: Dilaudid 1 mg {Note: RASS 0.} Route: IM; Site: right gluteus; bb 05:00 Follow up: Response: No change in condition; RASS: Alert and Calm (0) bb 04:07 Drug: Phenergan 12.5 mg Route: IM; Site: right ventrogluteal; bb 05:39 Follow up: Response: No adverse reaction bb 05:39 Drug: Dilaudid 1 mg Route: IM; Site: right ventrogluteal; bb 06:03 Follow up: Response: No adverse reaction ea 05:39 Drug: K-Lyte Effervescent Tablet 50 mEq Route: PO; bb 06:03 Follow up: Response: No adverse reaction ea Disposition: 08/12/19 05:36 Discharged to Home. Impression: Chest pain. Generalized pain. Hypokalemia. - Condition is Stable. - Prescriptions for Potassium Chloride 10 mEq Oral Capsule, Sustained Release - take 1 tablet by ORAL route every 12 hours; 20 tablet. - Medication Reconciliation Form, Thank You Letter, Antibiotic Education, Prescription Opioid Use form. - Follow up: Private Physician; When: 2 - 3 days; Reason: Re-evaluation by your physician. Signatures: Dis[facility] Z[facility] MD MD pkWendy Chamberlain, RN RN Di Cardenas RN RN jessica Corrections: (The following items were deleted from the chart) 05:22 03:06 Urinalysis ordered. [facility] 06:02 05:36 08/12/2019 05:36 Discharged to Home. Impression: Chest pain. Generalized pain. ea Hypokalemia. Condition is Stable. Forms are Medication Reconciliation Form, Thank You Letter, Antibiotic Education, Prescription Opioid Use. Follow up: Private Physician; When: 2 - 3 days; Reason: Re-evaluation by your physician. pknabil
[2019-08-12 05:56] LABS: Urine Bacteria <20 /HPF (<20); Urine Culture Reflex Order NOT NEEDED; Urine RBC NONE SEEN /HPF (NONE SEEN)
[2019-08-12 05:57] LABS: Barbiturates NEGATIVE (NEGATIVE); Benzodiazepines POSITIVE (NEGATIVE); Cocaine NEGATIVE (NEGATIVE); METHAMPHETAM POSITIVE (NEGATIVE); Methadone NEGATIVE (NEGATIVE); Opiates NEGATIVE (NEGATIVE); Phencyclidine NEGATIVE (NEGATIVE); THC Cannibis NEGATIVE (NEGATIVE)
[2019-08-12 06:27] VITALS: BP 125/87; TEMP 97.8; O2SAT 99
--- NOTE | 2019-08-12 11:51 | RAD REPORT ---
EXAM DESCRIPTION: Destiny Single View08/12/2019 3:11 am CLINICAL HISTORY: Chest pain COMPARISON: May 2019 FINDINGS: The lungs appear clear of acute infiltrate. The heart is normal size IMPRESSION: No acute abnormalities displayed
== END 2019-08-12 06:02 | disposition home or self-care (01) ==
LOC: ER 02:00
DX: R07.9 Chest pain, unspecified (principal); E87.6 Hypokalemia; Z88.6 Allergy status to analgesic agent; Z88.2 Allergy status to sulfonamides; Z88.8 Allergy status to other drugs, medicaments and biological substances
CPT/HCPCS: 85025; 80048; 36415; 83735; 81025; 85610; 80076; 80307 ×8; 84484; 83690; 83880; 71045; 96372; 99284; J2550; J1170 ×2; 81003; 81015

== ENCOUNTER 2019-11-05 02:01 | Emergency (ER) | payer OTHER ==
--- OUTSIDE RECORDS SUMMARY | 2019-11-05 02:03 | XMS REPORT ---
:1975 [facility] Address [address] [place] [address] Dr. Snider [address] [place] [id number] Care Team Providers Name Role Phone Unavailable Unavailable Unavailable Problems This patient has no known problems. Allergies, Adverse Reactions, Alerts This patient has no known allergies or adverse reactions. Medications This patient has no known medications.
[2019-11-05] MEDS ORDERED: HYDROMORPHONE HCL 1 MG/ML INJ ONE ×2 (02:25→03:16)
[2019-11-05 02:31] LABS: Absolute Lymphocytes (CBC) 1.5 K/uL (0.7-4.9); Basophils % 0.4 % (0-1.3); Hematocrit 39.4 % (36.0-45.0); Lymphocytes % 18.5 % (15.3-44.8); MPV 7.6 fL (7.6-11.3); RBC Red Blood Cell Count 4.28 M/uL (3.86-4.86)
[2019-11-05 02:35] LABS: Protime INR 1.05
[2019-11-05 02:48] LABS: ALT/SGPT 134 U/L (12-78); AST/SGOT 47 U/L (15-37); Albumin 3.6 g/dL (3.4-5.0); Alkaline Phosphatase 140 U/L (45-117); BUN Blood Urea Nitrogen 11 mg/dL (7-18); Bicarbonate 23 mmol/L (21-32); Bilirubin Direct < 0.1 mg/dL (0-0.2); Bilirubin Total 0.3 mg/dL (0.2-1.0); Glucose Level 107 mg/dL (74-106); Lipase 186 U/L (73-393); NT PRO-BNP 28 pg/mL (<125); Potassium 3.8 mmol/L (3.5-5.1); Protein, Total 7.5 g/dL (6.4-8.2); Sodium Level 141 mmol/L (136-145); Troponin (Emerg Dept Use Only) < 0.02 ng/mL (0.0-0.045)
[2019-11-05] MEDS ORDERED: PROMETHAZINE 25 MG/ML VIAL ONE (03:24)
[2019-11-05 03:32] LABS: Ferritin 13.2 ng/mL (8-388)
--- NOTE | 2019-11-05 05:37 | ER ---
Nurse's Notes [facility] Name: Liza Dexter Age: 43 yrs Sex: Female : 1975 Arrival Date: 11/05/2019 Time: 02:02 Bed 8 Private MD: Diagnosis: Vomiting, unspecified;Chest pain, unspecified;Upper abdominal pain, unspecified Presentation: 11/05 02:15 Presenting complaint: EMS states: complaining of epigastric pain also in the chest rr5 area. patient had several auto immune disease. 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 6 aneurysm repair done. 02:15 Transition of care: patient was not received from another setting of care. Onset of rr5 symptoms was November 02, 2019. Risk Assessment: Do you want to hurt yourself or someone else? Patient reports no desire to harm self or others. Initial Sepsis Screen: Does the patient meet any 2 criteria? No. Patient's initial sepsis screen is negative. Does the patient have a suspected source of infection? No. Patient's initial sepsis screen is negative. Care prior to arrival: Medication(s) given: ASA, 325 mg, Nitroglycerin, x 1. 02:15 Method Of Arrival: EMS: [facility] rr5 02:15 Acuity: JUAN 3 rr5 WAXER: 02:15 LMP N/A - Depo-provera rr5 Historical: - Allergies: 02:17 ambien; lp1 02:17 CEPHALOSPORINS; lp1 02:17 Codeine; lp1 02:17 Demerol; lp1 02:17 Morphine; lp1 02:17 Nexium; lp1 02:17 Sulfa (Sulfonamide Antibiotics); lp1 02:17 Zofran; lp1 - Home Meds: 02:17 Adderall XR 20 mg Oral cp24 1 cap once daily [Active]; amlodipine 5 mg tab 1 tab once lp1 daily [Active]; diazepam 10 mg Oral tab as needed [Active]; Flomax Oral [Active]; furosemide 20 mg Oral tab 1 tab once daily [Active]; hydrocodone-acetaminophen 10-500 mg Oral tab as needed [Active]; Lasix Oral [Active]; Lexapro Oral [Active]; methotrexate sodium injection once wkly [Active]; [place] 10-325 mg Oral tab as needed [Active]; Phenergan Oral 50 mg as needed [Active]; spironolactone 25 mg Oral tab 1 tab once daily [Active]; Topamax 200 mg Oral tab 1 tab 2 times per day [Active]; Valium Oral [Active]; vitamin b12 WEEKLY [Active]; vitamin b12 injection WEEKLY [Active]; Wellbutrin 150mg Oral tab daily [Active]; - PMHx: 02:17 Anemia; chron's; Colitis; Crohn's Disease; Lupus; Raynaud's syndrome; Scleroderma; lp1 Seizures; - Immunization history:: Adult Immunizations up to date. - Social history:: Smoking status: Patient/guardian denies using tobacco, Patient/guardian denies using alcohol, street drugs. - Ebola Screening: : No symptoms or risks identified at this time. - Family history:: not pertinent. - Hospitalizations: : No recent hospitalization is reported. Screenin:51 Abuse screen: Denies threats or abuse. Denies injuries from another. Nutritional lp1 screening: No deficits noted. Tuberculosis screening: No symptoms or risk factors identified. Fall Risk None identified. Assessment: 02:00 General: Appears uncomfortable, Behavior is anxious. Pain: Complains of pain in lp1 epigastric area Pain radiates to chest Pain currently is 8 out of 10 on a pain scale. Quality of pain is described as sharp, stabbing, Pain began gradually, Is intermittent. Neuro: Level of Consciousness is awake, alert, obeys commands, Oriented to person, place, time, situation. Cardiovascular: Patient's skin is warm and dry. Respiratory: Airway is patent Respiratory effort is even, Breath sounds are clear bilaterally. GI: Abdomen is non-distended. : No signs and/or symptoms were reported regarding the genitourinary system. EENT: Reports coughing up blood. Derm: Skin is pink, warm \\T\\ dry. 02:19 Reassessment: Patient requesting pain medication, moaning due to pain; States "Fentanyl lp1 doesn't help me, only Dilaudid works for me"; Provider notified; Verbal order for Dilaudid 1 mg IV now. 02:51 Reassessment: Patient states no relief from pain medication administered, requesting to lp1 have more medication. 03:12 Reassessment: Verbal order from Provider for Dilaudid 1 mg IV now and Ferritin lab add lp1 on. 03:16 Reassessment: Patient returned from CT at this time. lp1 03:19 Reassessment: Patient requesting to have Phenergan, complaint of nausea; Provider lp1 notified. 04:00 Reassessment: Patient appears in no apparent distress at this time. Patient and/or lp1 family updated on plan of care and expected duration. Pain level reassessed. Patient states symptoms have improved. 04:46 Reassessment: Patient ambulated to bathroom independently at this time; steady gait lp1 noted. Vital Signs: 02:15 BP 128 / 82; Pulse 89; Resp 16; Temp 98.6; Pulse Ox 99% ; Weight 91.63 kg; Height 5 ft. rr5 6 in. (167.64 cm); Pain 7/10; 02:45 BP 139 / 73; Pulse 74; Resp 20; Pulse Ox 99% on R/A; lp1 03:15 BP 127 / 62; Pulse 73; Resp 19; Pulse Ox 99% on R/A; lp1 03:30 BP 126 / 65; Pulse 71; Resp 15; Pulse Ox 97% on R/A; Pain 8/10; lp1 05:30 BP 120 / 66; Pulse 66; Resp 17; Temp 98.3(O); Pulse Ox 96% on R/A; lp1 02:15 Body Mass Index 32.60 (91.63 kg, 167.64 cm) rr5 ED Course: 02:02 Patient arrived in ED. ds1 02:09 Anurag Saxena MD is Attending Physician. rn 02:15 Maintain EMS IV. Dressing intact. Site clean \\T\\ dry. Gauge \\T\\ site: 20g to LFA. lp 1 02:17 Arm band placed on right wrist. lp1 02:17 Patient has correct armband on for positive identification. Placed in gown. Bed in low lp1 position. Call light in reach. environmental monitoring specialist on. Pulse ox on. NIBP on. 02:17 EKG done, by ED staff, reviewed by Anurag Saxena MD. lp1 02:18 Patient maintains SpO2 saturation greater than 95% on room air. lp1 02:20 Inserted saline lock: 22 gauge in right forearm, using aseptic technique. Blood rr5 collected. 02:24 Triage completed. rr5 02:37 XRAY Chest (1 view) In Process Unspecified. EDMS 02:50 Latoya Faust, RN is Primary Nurse. lp1 03:[address] via stretcher. 03:17 CT completed. Patient tolerated procedure well. Patient moved back from CT. 03:32 CT Abd/Pelvis - IV Contrast Only In Process Unspecified. EDMS 04:05 No provider procedures requiring assistance completed. lp1 05:46 IV discontinued, No redness/swelling at site. Pressure dressing applied. lp1 Administered Medications: 02:23 Drug: Dilaudid 1 mg Route: IVP; Site: left forearm; lp1 02:54 Follow up: Response: Pain is unchanged, physician notified; RASS: Restless (+1) lp1 03:25 Drug: Dilaudid 1 mg {Note: RASS 0.} Route: IVP; Site: right forearm; lp1 04:30 Follow up: Response: Pain is decreased; RASS: Alert and Calm (0) lp1 03:25 Drug: Phenergan 12.5 mg Route: IVP; Site: right forearm; lp1 04:30 Follow up: Response: Nausea is decreased lp1 Outcome: 05:36 Discharge ordered by . rn 05:47 Discharged to home ambulatory, with significant other. lp1 05:47 Condition: good 05:47 Discharge instructions given to patient, Instructed on discharge instructions, follow up and referral plans. Demonstrated understanding of instructions, follow-up care. 05:48 Patient left the ED. lp1 Signatures: Dispatcher [employer] EDCT Higinio Jean Carli Mcintosh ds1 Anurag Saxena MD MD rn Pena, Laura, RN RN lp1 Melo Michel RN RN rr5 Corrections: (The following items were deleted from the chart) 03:16 03:12 Reassessment: Patient ambulated to bathroom at this time; Verbal order from lp1 Provider for Dilaudid 1 mg IV now and Ferritin lab add on lp1
--- NOTE | 2019-11-05 05:38 | EDPHYS ---
Physician Documentation [facility] Name: Liza Dexter Age: 43 yrs Sex: Female : 1975 Arrival Date: 11/05/2019 Time: 02:02 Bed 8 Private MD: ED Physician Anurag Saxena HPI: 11/05 05:29 This 43 yrs old Female presents to ER via EMS with complaints of Chest Pain. rn 05:29 The patient or guardian reports chest pain that is located primarily in the substernal rn area, epigastric area, anterior chest wall. Onset: 4 week(s) ago. The pain does not radiate. Associated signs and symptoms: Pertinent positives: abdominal pain, cough, nausea, Pertinent negatives: None. The chest pain is described as sharp. Duration: The patient or guardian reports multiple episodes, that are intermittent. Modifying factors: The symptoms are alleviated by nothing. the symptoms are aggravated by nothing. The patient has experienced similar episodes in the past. Reports 4 weeks or so of epigastric and chest pain, intermittent, reports at times coughs of blood, then will vomit blood, then pee blood. Not on blood thinners. No trauma. Has had multiple abd surgeries in past and not sure if related to previous problems. Reports chronic anemia. . JUICE TESTER: 02:15 LMP N/A - Depo-provera rr5 Historical: - Allergies: 02:17 ambien; lp1 02:17 CEPHALOSPORINS; lp1 02:17 Codeine; lp1 02:17 Demerol; lp1 02:17 Morphine; lp1 02:17 Nexium; lp1 02:17 Sulfa (Sulfonamide Antibiotics); lp1 02:17 Zofran; lp1 - Home Meds: 02:17 Adderall XR 20 mg Oral cp24 1 cap once daily [Active]; amlodipine 5 mg tab 1 tab once lp1 daily [Active]; diazepam 10 mg Oral tab as needed [Active]; Flomax Oral [Active]; furosemide 20 mg Oral tab 1 tab once daily [Active]; hydrocodone-acetaminophen 10-500 mg Oral tab as needed [Active]; Lasix Oral [Active]; Lexapro Oral [Active]; methotrexate sodium injection once wkly [Active]; [place] 10-325 mg Oral tab as needed [Active]; Phenergan Oral 50 mg as needed [Active]; spironolactone 25 mg Oral tab 1 tab once daily [Active]; Topamax 200 mg Oral tab 1 tab 2 times per day [Active]; Valium Oral [Active]; vitamin b12 WEEKLY [Active]; vitamin b12 injection WEEKLY [Active]; Wellbutrin 150mg Oral tab daily [Active]; - PMHx: 02:17 Anemia; chron's; Colitis; Crohn's Disease; Lupus; Raynaud's syndrome; Scleroderma; lp1 Seizures; - Immunization history:: Adult Immunizations up to date. - Social history:: Smoking status: Patient/guardian denies using tobacco, Patient/guardian denies using alcohol, street drugs. - Ebola Screening: : No symptoms or risks identified at this time. - Family history:: not pertinent. - Hospitalizations: : No recent hospitalization is reported. ROS: 05:29 Constitutional: Negative for fever, chills, and weight loss, Eyes: Negative for injury, rn pain, redness, and discharge, Cardiovascular: + chest pain Respiratory: + cough Abdomen/GI: + upper abd pain MS/Extremity: Negative for injury and deformity, Skin: Negative for injury, rash, and discoloration, Neuro: Negative for headache, weakness, numbness, tingling, and seizure. Exam: 05:29 Constitutional: This is a well developed, well nourished patient who is awake, alert, rn and in no acute distress. Head/Face: Normocephalic, atraumatic. ENT: No oral lesions or bleeding Cardiovascular: Regular rate and rhythm. No pulse deficits. Respiratory: Lungs have equal breath sounds bilaterally, clear to auscultation. No increased work of breathing, no retractions or nasal flaring. Abdomen/GI: soft, mild tenderness in all 4 quadrants, no rebound Skin: Warm, dry with normal turgor. Normal color with no rashes, no lesions, and no evidence of cellulitis. MS/ Extremity: Pulses equal, no cyanosis. Neurovascular intact. Full, normal range of motion. Equal circumference. Neuro: Awake and alert, GCS 15, oriented to person, place, time, and situation. Cranial nerves II-XII grossly intact. Motor strength 5/5 in all extremities. Sensory grossly intact. Vital Signs: 02:15 BP 128 / 82; Pulse 89; Resp 16; Temp 98.6; Pulse Ox 99% ; Weight 91.63 kg; Height 5 ft. rr5 6 in. (167.64 cm); Pain 7/10; 02:45 BP 139 / 73; Pulse 74; Resp 20; Pulse Ox 99% on R/A; lp1 03:15 BP 127 / 62; Pulse 73; Resp 19; Pulse Ox 99% on R/A; lp1 03:30 BP 126 / 65; Pulse 71; Resp 15; Pulse Ox 97% on R/A; Pain 8/10; lp1 05:30 BP 120 / 66; Pulse 66; Resp 17; Temp 98.3(O); Pulse Ox 96% on R/A; lp1 02:15 Body Mass Index 32.60 (91.63 kg, 167.64 cm) rr5 MDM: 02:09 Patient medically screened. rn 05:29 Differential diagnosis: acute pericarditis, anxiety, chest wall pain, costochondritis, rn esophagitis, gastritis, gastroesophageal reflux disease (GERD), pancreatitis, peptic ulcer disease, pleurisy, pneumonia, pneumothorax. Data reviewed: vital signs, nurses notes, lab test result(s), EKG, radiologic studies, CT scan, plain films, and as a result, I will discharge patient. Counseling: I had a detailed discussion with the patient and/or guardian regarding: the historical points, exam findings, and any diagnostic results supporting the discharge/admit diagnosis, lab results, radiology results, the need for outpatient follow up, to return to the emergency department if symptoms worsen or persist or if there are any questions or concerns that arise at home. Response to treatment: the patient's symptoms have markedly improved after treatment, and as a result, I will discharge patient. Special discussion: Based on the patient's Hx, exam, and Dx evaluation, there is no indication for emergent surgery or inpatient Tx. It is understood by the patient/guardian that if the Sx's persist or worsen they need to return immediately for re-evaluation. I discussed with the patient/guardian in detail that at this point there is no indication for admission to the hospital. It is understood, however, that if the symptoms persist or worsen the patient needs to return immediately for re-evaluation. ED course: No acute findings on labs, no anemia, ferritin WNL, ct abdomen shows mild biliary prominence, most likely due to previous cholecystectomy, previous CTs show fatty liver and previous alk phos were higher than todays. Normal cbc. Will dc home and urged to f/u with her GI doctor as could still have gastritis/esophagitis that we cannot see without a scope, no need for emergent transfer at this time or admission.. 11/05 02:11 Order name: Basic Metabolic Panel; Complete Time: 05:20 11/05 02:11 Order name: CBC with Diff; Complete Time: 03:16 11/05 02:11 Order name: LFT's; Complete Time: 05:20 rn 11/05 02:11 Order name: NT PRO-BNP; Complete Time: 05:20 rn 11/05 02:11 Order name: Troponin (emerg Dept Use Only); Complete Time: 05:20 11/05 02:11 Order name: Lipase; Complete Time: 05:20 11/05 02:11 Order name: XRAY Chest (1 view) 11/05 02:11 Order name: PT-INR; Complete Time: 03:16 11/05 02:11 Order name: Ptt, Activated; Complete Time: 03:16 11/05 02:11 Order name: CT Abd/Pelvis - IV Contrast Only 11/05 03:16 Order name: Ferritin; Complete Time: 05:20 EDAL 11/05 02:11 Order name: IV Start; Complete Time: 02:21 11/05 02:11 Order name: EKG; Complete Time: 02:12 11/05 02:11 Order name: Cardiac monitoring; Complete Time: 02:21 11/05 02:11 Order name: EKG - Nurse/Tech; Complete Time: 02:21 11/05 02:11 Order name: Labs collected and sent; Complete Time: 02:41 rn 11/05 02:11 Order name: O2 Per Protocol; Complete Time: 02:21 rn 11/05 02:11 Order name: O2 Sat Monitoring; Complete Time: 02:21 rn Administered Medications: 02:23 Drug: Dilaudid 1 mg Route: IVP; Site: left forearm; lp1 02:54 Follow up: Response: Pain is unchanged, physician notified; RASS: Restless (+1) lp1 03:25 Drug: Dilaudid 1 mg {Note: RASS 0.} Route: IVP; Site: right forearm; lp1 04:30 Follow up: Response: Pain is decreased; RASS: Alert and Calm (0) lp1 03:25 Drug: Phenergan 12.5 mg Route: IVP; Site: right forearm; lp1 04:30 Follow up: Response: Nausea is decreased lp1 Disposition: 11/05/19 05:36 Discharged to Home. Impression: Vomiting, unspecified, Chest pain, unspecified, Upper abdominal pain, unspecified. - Condition is Stable. - Discharge Instructions: Abdominal Pain, Adult, Nonspecific Chest Pain, Pain Without a Known Cause. - Medication Reconciliation Form, Thank You Letter, Antibiotic Education, Prescription Opioid Use form. - Follow up: Private Physician; When: 2 - 3 days; Reason: Recheck today's complaints, Re-evaluation by your physician. - Problem is an ongoing problem. - Symptoms have improved. Signatures: Dispatcher [employer] [facility] Anurag Saxena MD MD rn Pena, Laura RN RN lp1 Melo Michel RN RN rr5 Corrections: (The following items were deleted from the chart) 03:16 03:12 FERRITIN+C.LAB.BRZ ordered. [facility] EDMS 05:48 05:36 11/05/2019 05:36 Discharged to Home. Impression: Vomiting, unspecified; Chest lp1 pain, unspecified; Upper abdominal pain, unspecified. Condition is Stable. Forms are Medication Reconciliation Form, Thank You Letter, Antibiotic Education, Prescription Opioid Use. Follow up: Private Physician; When: 2 - 3 days; Reason: Recheck today's complaints, Re-evaluation by your physician. Problem is an ongoing problem. Symptoms have improved. rn
[2019-11-05 06:15] VITALS: BP 120/66; TEMP 98.3; O2SAT 96
--- NOTE | 2019-11-05 11:44 | EKG ---
Test Date: 2019-11-05 Test Time: 02:11:50 Physicist [employer]: MARIA TERESA MEASUREMENT RESULTS: Intervals: Rate: 88 GA: 134 QRSD: 70 QT: 374 QTc: 452 [place]: P: 55 GA: 134 QRS: 38 T: 46 INTERPRETIVE STATEMENTS: Sinus rhythm with marked sinus arrhythmia Otherwise normal ECG Compared to ECG 05/29/2019 11:26:15 ST (T wave) deviation no longer present Prolonged QT interval no longer present Electronically Signed On 11-05-19 11:41:58 CARD BRUSHER by Doroteo Elam
--- NOTE | 2019-11-06 09:01 | RAD REPORT ---
EXAM DESCRIPTION: CT - Abdomen Pelvis W Contrast - 11/05/2019 5:26 am EXAM DESCRIPTION: CT ABDOMEN AND PELVIS WITH CONTRAST CLINICAL HISTORY: Epigastric pain;Abd pain COMPARISON: None Available. TECHNIQUE: CT of the abdomen and pelvis performed following IV administration of iodinated contrast. FINDINGS: Lung Bases: The visualized lung bases are clear. Bones: No destructive bone lesions identified. Abdomen: Liver: Mild intra and extra hepatic biliary dilatation. The common bile duct measures 1.0 cm. No Gallbladder: Prior cholecystectomy. Spleen, Pancreas, and Adrenal Glands: The spleen, pancreas, and adrenal glands are unremarkable. Kidneys: The kidneys have normal size without evidence of solid mass or hydronephrosis. Bosniak c lass I bilateral renal cysts. Vasculature: The aorta and IVC have normal caliber and position. The portal vein is patent. The pro ximal visceral and renal arteries are patent. Stomach: Postoperative change of the stomach. Other: No free intraperitoneal air. No free fluid or lymphadenopathy. Pelvis: Bladder: Urinary bladder is unremarkable. Bowel: No dilated loops of large or small bowel. Appendix: Not identified. Pelvis: Uterus is not enlarged. IMPRESSION: 1. Mild prominence of the intrahepatic bile ducts with the common bile duct measuring 1. 0 cm. This may be related to previous cholecystectomy. If there is concern for biliary obstruction MR CP would provide additional characterization. This exam was performed according to our departmental dose-optimization program, which includes autom ated exposure control, adjustment of the mA and/or kV according to patient size and/or use of iterati ve reconstruction technique. Electronically signed by: Marin Herron 11/05/2019 4:04 AM OCCUPATIONAL HEALTH PROFESSIONAL Due to temporary technical issues with the PACS/Fluency reporting system, reports are being signed by the in house radiologist as a courtesy to ensure prompt reporting. The interpreting radiologist is f ully responsible for the content of the report.
--- NOTE | 2019-11-06 09:02 | RAD REPORT ---
EXAM DESCRIPTION: RAD - Chest Single View - 11/05/2019 2:37 am CLINICAL HISTORY: 43 years Female, CHEST PAIN COMPARISON: 05/29/2019 at 12:08 PM TECHNIQUE: Single portable x-ray view of the chest performed on 11/05/2019 at 2:34 AM FINDINGS: The lungs are well expanded and are clear. There is no evidence of a pneumothorax. The cardiac silhouette is normal in size and configuration. The mediastinal contours are normal. No acute osseous abnormality is identified. No focal soft tissue abnormalities are seen. Lines and tubes: None. IMPRESSION: No evidence of acute intrathoracic disease. Electronically signed by: Allison Arceo DO 11/05/2019 4:24 AM SENIOR FORMULATION SCIENTIST Due to temporary technical issues with the PACS/Fluency reporting system, reports are being signed by the in house radiologist as a courtesy to ensure prompt reporting. The interpreting radiologist is f ully responsible for the content of the report.
== END 2019-11-05 05:48 | disposition home or self-care (01) ==
LOC: ER 02:01
DX: R11.10 Vomiting, unspecified (principal); R10.10 Upper abdominal pain, unspecified; G40.909 Epilepsy, unspecified, not intractable, without status epilepticus; Z88.2 Allergy status to sulfonamides; Z88.3 Allergy status to other anti-infective agents; Z88.5 Allergy status to narcotic agent; Z88.8 Allergy status to other drugs, medicaments and biological substances
CPT/HCPCS: 93005; 85025; 80048; 36415; 85610; 80076; 85730; 84484; 82728; 83690; 83880; 74177; 71045; 99285; Q9967; J2550; J1170 ×2

== ENCOUNTER 2019-12-09 00:43 | Emergency (ER) | payer OTHER ==
[2019-12-09 01:30] LABS: Absolute Lymphocytes (CBC) 0.7 K/uL (0.7-4.9); Basophils % 0.4 % (0-1.3); Hematocrit 27.6 % (36.0-45.0); Lymphocytes % 6.8 % (15.3-44.8); MPV 7.9 fL (7.6-11.3); Protime INR 1.17; RBC Red Blood Cell Count 3.07 M/uL (3.86-4.86)
[2019-12-09] MEDS ORDERED: HYDROMORPHONE HCL 2 MG/ML inj ONE (01:43)
[2019-12-09] MEDS ORDERED: NA CHLORIDE 0.9% 100 ML IV ONE ×2 (01:43→05:09)
[2019-12-09] MEDS ORDERED: PANTOPRAZOLE 40 MG INJ ONE (01:43)
[2019-12-09] MEDS ORDERED: NA CHLORIDE 0.9% 250 ML ONE (01:44)
[2019-12-09] MEDS ORDERED: PROMETHAZINE INJ 25 MG/ML AMP ONE (01:52)
[2019-12-09 01:54] LABS: Blood Morphology Comment NOT SEEN (NOT SEEN); Platelet Estimate ADEQ
[2019-12-09 01:59] LABS: ALT/SGPT 29 U/L (12-78); AST/SGOT 20 U/L (15-37); Albumin 2.8 g/dL (3.4-5.0); Alkaline Phosphatase 102 U/L (45-117); BUN Blood Urea Nitrogen 18 mg/dL (7-18); Bicarbonate 24 mmol/L (21-32); Bilirubin Direct < 0.1 mg/dL (0-0.2); Bilirubin Total 0.2 mg/dL (0.2-1.0); Glucose Level 119 mg/dL (74-106); Magnesium 2.2 mg/dL (1.8-2.4); NT PRO-BNP 73 pg/mL (<125); Potassium 3.9 mmol/L (3.5-5.1); Protein, Total 5.9 g/dL (6.4-8.2); Sodium Level 140 mmol/L (136-145); Troponin (Emerg Dept Use Only) 0.05 ng/mL (0.0-0.045)
--- OUTSIDE RECORDS SUMMARY | 2019-12-09 04:50 | XMS REPORT ---
:1975 [facility] Address [address] [place] [address] Dr. Snider [address] [place] [id number] Care Team Providers Name Role Phone Unavailable Unavailable Unavailable Problems This patient has no known problems. Allergies, Adverse Reactions, Alerts This patient has no known allergies or adverse reactions. Medications This patient has no known medications. Encounters Start End Encounter Admission Attending Care Care Encounter Date/Time Date/Time Type Type Clinicians Facility Department ID 2019-11-27 2019-11-27 Outpatient E [facility] [id number] 17:46:00 17:46:00
[2019-12-09] MEDS ORDERED: HYDROMORPHONE HCL 1 MG/ML INJ ONE (05:09)
[2019-12-09] MEDS ORDERED: NA CHLORIDE 0.9% 500 ML ONE (05:10)
--- NOTE | 2019-12-09 05:54 | ER ---
Nurse's Notes [facility] Name: Liza Dexter Age: 44 yrs Sex: Female : 1975 Arrival Date: 12/09/2019 Time: 00:44 Bed 19 Private MD: Diagnosis: Abdominal and pelvic pain;GI Bleed, Anemia Abdominal Pain Presentation: 12/09 00:45 Presenting complaint: EMS states: we were called for patient complaining of GI bleed rr5 around 8pm, fell down hit the side of her head felt dizzy, feels weak, nauseated and syncopal episode as stated. 00:45 Transition of care: patient was not received from another setting of care. Onset of rr5 symptoms was December 08, 2019 at 20:00. Risk Assessment: Do you want to hurt yourself or someone else? Patient reports no desire to harm self or others. Initial Sepsis Screen: Does the patient meet any 2 criteria? HR > 90 bpm. Yes Does the patient have a suspected source of infection? No. Patient's initial sepsis screen is negative. Care prior to arrival: None. 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 LMP N/A - Post-menopause, over a year as verbalized rr5 Historical: - Allergies: 00:56 ambien; rr5 00:56 CEPHALOSPORINS; rr5 00:56 Codeine; rr5 00:56 Demerol; rr5 00:56 Morphine; rr5 00:56 Nexium; rr5 00:56 Sulfa (Sulfonamide Antibiotics); rr5 00:56 Zofran; rr5 - Home Meds: 00:56 Adderall XR 20 mg Oral cp24 1 cap once daily [Active]; amlodipine 5 mg tab 1 tab once rr5 daily [Active]; diazepam 10 mg Oral tab as needed [Active]; Flomax Oral [Active]; furosemide 20 mg Oral tab 1 tab once daily [Active]; hydrocodone-acetaminophen 10-500 mg Oral tab as needed [Active]; Lasix Oral [Active]; Lexapro Oral [Active]; methotrexate sodium injection once wkly [Active]; Valium Oral [Active]; [place] 10-325 mg Oral tab as needed [Active]; Phenergan Oral 50 mg as needed [Active]; spironolactone 25 mg Oral tab 1 tab once daily [Active]; vitamin b12 injection WEEKLY [Active]; vitamin b12 WEEKLY [Active]; Topamax 200 mg Oral tab 1 tab 2 times per day [Active]; Wellbutrin 150mg Oral tab daily [Active]; - PMHx: 00:56 Anemia; chron's; Colitis; Crohn's Disease; Lupus; Raynaud's syndrome; Scleroderma; rr5 Seizures; - Immunization history:: Adult Immunizations up to date. - Coronavirus screen:: The patient has NOT traveled to [place], [place], or [place] in the past 14 days. - Social history:: Smoking status: Patient denies any tobacco usage or history of. Patient/guardian denies using alcohol, street drugs. - Ebola Screening: : Patient negative for fever greater than or equal to 101.5 degrees Fahrenheit, and additional compatible Ebola Virus Disease symptoms Patient denies exposure to infectious person Patient denies travel to an Ebola-affected area in the 21 days before illness onset. Screenin:00 Abuse screen: Denies threats or abuse. Denies injuries from another. Nutritional rr5 screening: No deficits noted. Tuberculosis screening: No symptoms or risk factors identified. Fall Risk Fall in past 12 months (25 points). IV access (20 points). Total Pinedo Fall Scale indicates High Risk Score (45 or more points). Fall prevention measures have been instituted. Side Rails Up X 2 Placed Close to Nursing Station Frequent Obs/Assessments Occuring Family Present and informed to notify staff if the need to leave the bedside As available patient and family educated on Fall Prevention Program and Strategies. Assessment: 00:45 General: Appears in no apparent distress. uncomfortable, Behavior is calm, cooperative, rr5 appropriate for age. Pain: Complains of pain in abdomen Pain does not radiate. Pain currently is 8 out of 10 on a pain scale. Quality of pain is described as aching, Pain began gradually, Is intermittent. 00:45 Neuro: Level of Consciousness is awake, alert, obeys commands, Oriented to person, rr5 place, time, situation, Appropriate for age Reports dizziness, a syncopal episode weakness. Cardiovascular: Capillary refill < 3 seconds Patient's skin is warm and dry. Respiratory: Airway is patent Respiratory effort is even, unlabored, Respiratory pattern is regular, symmetrical. GI: Abdomen is round non-distended, Reports upper abdominal pain, bloody stool, nausea, vomiting. : No signs and/or symptoms were reported regarding the genitourinary system. EENT: No signs and/or symptoms were reported regarding the EENT system. Derm: Skin is intact, is healthy with good turgor, Skin temperature is warm. Musculoskeletal: Circulation, motion, and sensation intact. Capillary refill < 3 seconds. 02:00 Reassessment: Patient appears in no apparent distress at this time. Patient is alert, rr5 oriented x 3, equal unlabored respirations, skin warm/dry/pink. complaining of abdominal pain. ED provider aware with order and carried out. 03:00 Reassessment: Patient appears in no apparent distress at this time. Patient is alert, rr5 oriented x 3, equal unlabored respirations, skin warm/dry/pink. awaiting for review. Patient states symptoms have improved. 04:15 Reassessment: Patient appears in no apparent distress at this time. ED provider rr5 informed patient complaints of dizziness when standing up and HR 130's RR increased. Reassessment: Patient appears in no apparent distress at this time. 04:40 Reassessment: Patient appears in no apparent distress at this time. Patient and/or rr5 family updated on plan of care and expected duration. Pain level reassessed. updated patient is for transfer. awaiting for accepting facility. 05:00 Reassessment: Patient appears in no apparent distress at this time. complaints of chest rr5 pain. ED provider aware with order made and carried out. 05:47 Reassessment: Patient appears in no apparent distress at this time. Patient is alert, rr5 oriented x 3, equal unlabored respirations, skin warm/dry/pink. still waiting for transfer. pain score went down to 7/10. chatting with her cabin man at bedside. 06:20 Reassessment: Patient appears in no apparent distress at this time. Patient is alert, rr5 oriented x 3, equal unlabored respirations, skin warm/dry/pink. ED provider at bedside with order made and carried out, patient complaint of itchiness all over the body. 06:55 Reassessment: Patient appears in no apparent distress at this time. [facility] healthcare rr5 staff louisa informed and accepted the case. patient signed the transfer form. Vital Signs: 00:44 BP 93 / 62; Pulse 102; Resp 18; Temp 98.1; Pulse Ox 100% on R/A; Weight 88.45 kg; ea Height 5 ft. 6 in. (167.64 cm); 02:00 BP 90 / 51; Pulse 98; Resp 19; Pulse Ox 99% ; Pain 8/10; rr5 03:13 BP 98 / 67; Pulse 93; Resp 17; Temp 98.7; Pulse Ox 99% ; Pain 5/10; rr5 04:10 BP 106 / 60 LA Supine; Pulse 82; Resp 19; Pulse Ox 100% ; rr5 04:12 BP 95 / 55 Sitting; Pulse 85; Resp 19; Pulse Ox 97% ; rr5 04:14 BP 105 / 46 Standing; Pulse 135; Resp 25; Pulse Ox 100% ; rr5 05:00 BP 105 / 72; Pulse 89; Resp 16; Temp 98.5; Pulse Ox 99% ; Pain 8/10; rr5 05:46 BP 118 / 74; Pulse 68; Resp 17; Temp 98.1; Pulse Ox 99% on R/A; Pain 7/10; rr5 06:35 BP 99 / 62; Pulse 93; Resp 19; Pulse Ox 99% on R/A; rr5 00:44 Body Mass Index 31.47 (88.45 kg, 167.64 cm) ea ED Course: 00:44 Patient arrived in ED. ea 00:47 Melo Michel RN is Primary Nurse. rr5 00:52 Triage completed. rr5 00:52 Calixto Velazquez MD is Attending Physician. kdr 00:57 Arm band placed on right wrist. rr5 01:00 Patient has correct armband on for positive identification. Bed in low position. Call rr5 light in reach. Side rails up X2. media monitor on. Pulse ox on. NIBP on. 01:00 Maintain EMS IV. Dressing intact. Good blood return noted. Site clean \T\ dry. Gauge \T\ rr 5 site: G20 right hand. 01:49 X-ray completed. Portable x-ray completed in exam room. Patient tolerated procedure mh1 well. 01:50 XRAY Chest (1 view) In Process Unspecified. EDMS 01:50 No provider procedures requiring assistance completed. Served as a breakfast host during rr5 rectal exam. assisted by Di Gomez. 04:51 transfer initiated by Jj with Ky from [facility] [place]. eb 05:34 Ky from [facility] [place] called to ask for a 15 minute extension. eb 06:05 Ky from [facility] [place] called for another 15 minute extension. eb 06:14 Ky from [facility] called to deny patient in transfer due to being at eb capacity. 06:16 initiated a transfer with Roxana from the [facility] transfer Center. eb 06:22 Roxana from the [facility] transfer Center called to deny patient in transfer due to being at eb capacity. 06:27 initiated a transfer with Kallie from the [facility] transfer center. eb 06:31 CT Head Brain wo Cont In Process Unspecified. 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 Velazquez for patient transfer consultation. 06:36 administrative approval given by Kallie Vela/ patient has been accepted to [facility]/ Dr. Morales has accepted the patient in transfer/ report to be called to [phone]. 07:41 Abdomen In Process Unspecified. EDMS 07:41 CT completed. Patient tolerated procedure well. Patient moved back from CT. mw3 07:[address]. sv 08:22 Patient transferred, IV remains in place. intact. sv Administered Medications: 01:55 Drug: ProTONIX 80 mg Route: IVP; Site: right hand; rr5 03:00 Follow up: Response: No adverse reaction rr5 02:00 Drug: Phenergan 12.5 mg Route: IVP; Site: right hand; rr5 03:00 Follow up: Response: No adverse reaction; Nausea is decreased rr5 02:03 Drug: Dilaudid 2 mg Route: IVP; Site: right hand; rr5 03:23 Follow up: Response: No adverse reaction; Pain is decreased; RASS: Alert and Calm (0) rr5 03:25 Drug: ProTONIX 8 mg/hr Route: IV; Rate: 25 ml/hr; Site: right hand; rr5 08:23 Follow up: Response: No adverse reaction; IV Status: Infusion continued upon transfer sv 05:12 Drug: Dilaudid 1 mg Route: IVP; Site: right hand; rr5 05:40 Follow up: Response: No adverse reaction; Pain is decreased; RASS: Alert and Calm (0) rr5 06:35 Drug: Benadryl 50 mg Route: IVP; Site: right hand; rr5 07:05 Follow up: Response: No adverse reaction rr5 Point of Care Testing: Guaiac: 01:50 Stool Guaiac: Positive; Stool Hemoccult Control: Pass; rr5 Outcome: 05:54 ER care complete, transfer ordered by . kdr 08:20 Transferred by ground EMS Note: [facility]. Report given to EMS sv 08:20 Condition: stable 08:20 Instructed on the need for transfer. 08:22 Patient left the ED. sv Signatures: Dispatcher [employer] EDKaylin Jimenez RN RN Calixto Euceda MD MD kdr Harvey, Martha 1 Di Joseph RN RN Teresa Carrasquillo Michelle 3 Melo Michle RN RN rr5 Corrections: (The following items were deleted from the chart) 06:42 06:37 connected the emergency room doctor metal sponge making machine operator for [facility] with Dr. Velazquez for patient transfer consultation. eb 07:04 06:40 No provider procedures requiring assistance completed. rr5 rr5
--- NOTE | 2019-12-09 05:54 | EDPHYS ---
Physician Documentation [facility] Name: Liza Dexter Age: 44 yrs Sex: Female : 1975 Arrival Date: 12/09/2019 Time: 00:44 Bed 19 Private MD: ED Physician Calixto Velazquez HPI: 12/09 01:46 This 44 yrs old Female presents to ER via EMS with complaints of Syncope. kdr 01:46 The patient has experienced syncope, became unresponsive, collapsed, lost kdr consciousness. Onset: The symptoms/episode began/occurred suddenly, just prior to arrival. Duration: This was a single episode, that lasted 2 hour(s). Context: occurred at home, occurred while the patient was defecating, urinating, having bloody (BRB) stools. Associated injury: Head/face:. Associated signs and symptoms: Pertinent positives: abdominal pain, diarrhea, dizziness, lightheadedness. Current symptoms: Generally weak and light headed. The patient has experienced similar episodes in the past, a few times. The patient has been recently seen by a physician: D/bairon from [facility] for GI bleeding. 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 LMP N/A - Post-menopause, over a year as verbalized rr5 Historical: - Allergies: 00:56 ambien; rr5 00:56 CEPHALOSPORINS; rr5 00:56 Codeine; rr5 00:56 Demerol; rr5 00:56 Morphine; rr5 00:56 Nexium; rr5 00:56 Sulfa (Sulfonamide Antibiotics); rr5 00:56 Zofran; rr5 - Home Meds: 00:56 Adderall XR 20 mg Oral cp24 1 cap once daily [Active]; amlodipine 5 mg tab 1 tab once rr5 daily [Active]; diazepam 10 mg Oral tab as needed [Active]; Flomax Oral [Active]; furosemide 20 mg Oral tab 1 tab once daily [Active]; hydrocodone-acetaminophen 10-500 mg Oral tab as needed [Active]; Lasix Oral [Active]; Lexapro Oral [Active]; methotrexate sodium injection once wkly [Active]; Valium Oral [Active]; [place] 10-325 mg Oral tab as needed [Active]; Phenergan Oral 50 mg as needed [Active]; spironolactone 25 mg Oral tab 1 tab once daily [Active]; vitamin b12 injection WEEKLY [Active]; vitamin b12 WEEKLY [Active]; Topamax 200 mg Oral tab 1 tab 2 times per day [Active]; Wellbutrin 150mg Oral tab daily [Active]; - PMHx: 00:56 Anemia; chron's; Colitis; Crohn's Disease; Lupus; Raynaud's syndrome; Scleroderma; rr5 Seizures; - Immunization history:: Adult Immunizations up to date. - Coronavirus screen:: The patient has NOT traveled to [place], [place], or [place] in the past 14 days. - Social history:: Smoking status: Patient denies any tobacco usage or history of. Patient/guardian denies using alcohol, street drugs. - Ebola Screening: : Patient negative for fever greater than or equal to 101.5 degrees Fahrenheit, and additional compatible Ebola Virus Disease symptoms Patient denies exposure to infectious person Patient denies travel to an Ebola-affected area in the 21 days before illness onset. ROS: 01:52 Constitutional: Negative for fever, chills, and weight loss, Eyes: Negative for injury, kdr pain, redness, and discharge, Neck: Negative for injury, pain, and swelling, Cardiovascular: Negative for chest pain, palpitations, and edema, Respiratory: Negative for shortness of breath, cough, wheezing, and pleuritic chest pain, Abdomen/GI: Negative for abdominal pain, nausea, vomiting, diarrhea, and constipation, Back: Negative for injury and pain, : Negative for injury, bleeding, discharge, and swelling, MS/Extremity: Negative for injury and deformity, Skin: Negative for injury, rash, and discoloration, Psych: Negative for depression, anxiety, suicide ideation, homicidal ideation, and hallucinations, Allergy/Immunology: Negative for hives, rash, and allergies, Endocrine: Negative for neck swelling, polydipsia, polyuria, polyphagia, and marked weight changes, Hematologic/Lymphatic: Negative for swollen nodes, abnormal bleeding, and unusual bruising. 01:52 Neuro: Positive for dizziness, loss of consciousness, syncope, weakness. Exam: 01:52 Constitutional: This is a well developed, well nourished patient who is awake, alert, kdr and in no acute distress. Head/Face: Normocephalic, atraumatic. Eyes: Pupils equal round and reactive to light, extra-ocular motions intact. Lids and lashes normal. Conjunctiva and sclera are non-icteric and not injected. Cornea within normal limits. Periorbital areas with no swelling, redness, or edema. Neck: Trachea midline, no thyromegaly or masses palpated, and no cervical lymphadenopathy. Supple, full range of motion without nuchal rigidity, or vertebral point tenderness. No Meningismus. Chest/axilla: Normal chest wall appearance and motion. Nontender with no deformity. No lesions are appreciated. Cardiovascular: Regular rate and rhythm with a normal S1 and S2. No gallops, murmurs, or rubs. Normal PMI, no JVD. No pulse deficits. Respiratory: Lungs have equal breath sounds bilaterally, clear to auscultation and percussion. No rales, rhonchi or wheezes noted. No increased work of breathing, no retractions or nasal flaring. Back: No spinal tenderness. No costovertebral tenderness. Full range of motion. Skin: Warm, dry with normal turgor. Normal color with no rashes, no lesions, and no evidence of cellulitis. MS/ Extremity: Pulses equal, no cyanosis. Neurovascular intact. Full, normal range of motion. Neuro: Awake and alert, GCS 15, oriented to person, place, time, and situation. Cranial nerves II-XII grossly intact. Motor strength 5/5 in all extremities. Sensory grossly intact. Cerebellar exam normal. Normal gait. Psych: Awake, alert, with orientation to person, place and time. Behavior, mood, and affect are within normal limits. 01:52 Abdomen/GI: Inspection: abdomen appears normal, obese Bowel sounds: active, diminished, in all quadrants, Palpation: soft, mild abdominal tenderness, in all quadrants, Rectal exam: rectal tone normal, Stool: guaiac positive. Vital Signs: 00:44 BP 93 / 62; Pulse 102; Resp 18; Temp 98.1; Pulse Ox 100% on R/A; Weight 88.45 kg; ea Height 5 ft. 6 in. (167.64 cm); 02:00 BP 90 / 51; Pulse 98; Resp 19; Pulse Ox 99% ; Pain 8/10; rr5 03:13 BP 98 / 67; Pulse 93; Resp 17; Temp 98.7; Pulse Ox 99% ; Pain 5/10; rr5 04:10 BP 106 / 60 LA Supine; Pulse 82; Resp 19; Pulse Ox 100% ; rr5 04:12 BP 95 / 55 Sitting; Pulse 85; Resp 19; Pulse Ox 97% ; rr5 04:14 BP 105 / 46 Standing; Pulse 135; Resp 25; Pulse Ox 100% ; rr5 05:00 BP 105 / 72; Pulse 89; Resp 16; Temp 98.5; Pulse Ox 99% ; Pain 8/10; rr5 05:46 BP 118 / 74; Pulse 68; Resp 17; Temp 98.1; Pulse Ox 99% on R/A; Pain 7/10; rr5 06:35 BP 99 / 62; Pulse 93; Resp 19; Pulse Ox 99% on R/A; rr5 00:44 Body Mass Index 31.47 (88.45 kg, 167.64 cm) ea MDM: 05:54 Patient medically screened. kdr 05:54 Data reviewed: vital signs, nurses notes, lab test result(s), radiologic studies. kdr Counseling: I had a detailed discussion with the patient and/or guardian regarding: the historical points, exam findings, and any diagnostic results supporting the discharge/admit diagnosis, lab results, radiology results, the need to transfer to another facility. 12/09 00:55 Order name: Basic Metabolic Panel; Complete Time: 02:59 kdr 12/09 00:55 Order name: CBC with Diff; Complete Time: 02:59 kdr 12/09 00:55 Order name: LFT's; Complete Time: 02:59 kdr 12/09 00:55 Order name: Magnesium; Complete Time: 02:59 kdr 12/09 00:55 Order name: NT PRO-BNP; Complete Time: 02:59 kdr 12/09 00:55 Order name: PT-INR; Complete Time: 01:34 kdr 12/09 00:55 Order name: Troponin (emerg Dept Use Only); Complete Time: 02:59 kdr 12/09 01:36 Order name: Type And Screen; Complete Time: 04:06 kdr 12/09 01:54 Order name: Manual Differential; Complete Time: 02:59 EDMS 12/09 03:00 Order name: Hemoglobin; Complete Time: 03:34 kdr 12/09 03:00 Order name: Troponin (emerg Dept Use Only); Complete Time: 04:06 kdr 12/09 07:05 Order name: Occult Blood--Ancillary rr5 12/09 07:26 Order name: Urine Dipstick--Ancillary (enter results) eb 12/09 07:26 Order name: Urine --Ancillary (enter results) eb 12/09 00:55 Order name: XRAY Chest (1 view) kdr 12/09 00:55 Order name: EKG; Complete Time: 00:56 kdr 12/09 00:55 Order name: Cardiac monitoring; Complete Time: 01:21 kdr 12/09 00:55 Order name: EKG - Nurse/Tech; Complete Time: 01:20 kdr 12/09 00:55 Order name: IV Saline Lock; Complete Time: 01:20 kdr 12/09 00:55 Order name: Labs collected and sent; Complete Time: 01:20 kdr 12/09 00:55 Order name: O2 Per Protocol; Complete Time: 01:21 kdr 12/09 01:54 Order name: CT Head Brain wo Cont kdr 12/09 07:39 Order name: Abdomen EDMS 12/09 00:55 Order name: O2 Sat Monitoring; Complete Time: 01:20 kdr 12/09 03:02 Order name: VS Recheck; Complete Time: 03:22 kdr 12/09 04:06 Order name: Orthostatic Blood Pressure; Complete Time: 04:16 kdr EC:12 Rate is 87 beats/min. Rhythm is regular, Normal Sinus Rhythm with No ectopy. QRS [place] kdr is Normal. [place] interval is normal. QRS interval is normal. QT interval is normal. Clinical impression: Normal ECG. Administered Medications: 01:55 Drug: ProTONIX 80 mg Route: IVP; Site: right hand; rr5 03:00 Follow up: Response: No adverse reaction rr5 02:00 Drug: Phenergan 12.5 mg Route: IVP; Site: right hand; rr5 03:00 Follow up: Response: No adverse reaction; Nausea is decreased rr5 02:03 Drug: Dilaudid 2 mg Route: IVP; Site: right hand; rr5 03:23 Follow up: Response: No adverse reaction; Pain is decreased; RASS: Alert and Calm (0) rr5 03:25 Drug: ProTONIX 8 mg/hr Route: IV; Rate: 25 ml/hr; Site: right hand; rr5 08:23 Follow up: Response: No adverse reaction; IV Status: Infusion continued upon transfer sv 05:12 Drug: Dilaudid 1 mg Route: IVP; Site: right hand; rr5 05:40 Follow up: Response: No adverse reaction; Pain is decreased; RASS: Alert and Calm (0) rr5 06:35 Drug: Benadryl 50 mg Route: IVP; Site: right hand; rr5 07:05 Follow up: Response: No adverse reaction rr5 Point of Care Testing: Guaiac: 01:50 Stool Guaiac: Positive; Stool Hemoccult Control: Pass; rr5 Disposition: 12/09/19 05:54 Transfer ordered to Other Acute Care Facility. Diagnosis are Abdominal and pelvic pain, GI Bleed, Anemia Abdominal Pain. - Reason for transfer: Higher level of care. - Accepting physician is Dr. Morales (ED) - [facility]. - Condition is Serious. - Problem is new. - Symptoms have improved. Signatures: Dispatcher [employer] EDNJ Kaylin Balderas RN CAROLANN sv Calixto Velazquez MD MD kdr Roque, Raymond, RN RN rr5 Corrections: (The following items were deleted from the chart) 06:43 05:54 12/09/2019 05:54 Transfer ordered to [facility]. Diagnosis is kdr Abdominal and pelvic pain; GI Bleed, Anemia Abdominal Pain. Reason for transfer: Higher level of care. Accepting physician is Dr. Oscar Wiley. Condition is Serious. Problem is new. Symptoms have improved. kdr 07:39 06:58 Abdomen Pelvis W Con+CT.RAD.BRZ ordered. [facility] 08:22 06:43 12/09/2019 05:54 Transfer ordered to Other Acute Care Facility. Diagnosis is sv Abdominal and pelvic pain; GI Bleed, Anemia Abdominal Pain. Reason for transfer: Higher level of care. Accepting physician is Dr. Morales (ED) - [facility]. Condition is Serious. Problem is new. Symptoms have improved. kdr
[2019-12-09] MEDS ORDERED: DIPHENHYDRAMINE 50 MG/ML VIAL ONE (06:28)
--- NOTE | 2019-12-09 08:01 | RAD REPORT ---
EXAM DESCRIPTION: CT - Abdomen Pelvis Wo Contrast - 12/09/2019 7:41 am CLINICAL HISTORY: Abdominal pain. syncope COMPARISON: Abdomen Pelvis W Contrast dated 11/05/2019 TECHNIQUE: CT imaging of the abdomen and pelvis was performed without contrast. Solid organ, bowel a nd vascular assessment is limited due to lack of IV and oral contrast. All CT scans are performed using dose optimization technique as appropriate and may include automated exposure control or mA/KV adjustment according to patient size. FINDINGS: The lower lung jha are clear.Small hiatal hernia. Postsurgical changes about the stomac h. The liver, spleen, pancreas, adrenal glands and kidneys are within normal limits for a limited non-co ntrast examination. No bowel obstruction, free air, free fluid or abscess. The appendix is normal. The osseous structures are within normal limits. IMPRESSION: No acute intra-abdominal or pelvic findings. A limited non-contrast examination was performed as detailed.
[2019-12-09 08:12] LABS: Urine Blood NEGATIVE (NEG); Urine Glucose NEGATIVE (NEG); Urine Protein NEGATIVE (NEG); Urine Specific Gravity 1.025 (1.005-1.030); Urine pH 5.5 (5.0-7.0)
--- NOTE | 2019-12-09 08:42 | RAD REPORT ---
EXAM DESCRIPTION: CT - Head Brain Wo Cont - 12/09/2019 6:31 am CLINICAL HISTORY: Head injury, dizziness COMPARISON: CT head October 2018 TECHNIQUE: Axial 5 mm thick images of the head were obtained without IV contrast. All CT scans are performed using dose optimization technique as appropriate and may include automated exposure control or mA/KV adjustment according to patient size. FINDINGS: No intracranial hemorrhage, mass, edema or shift of mid-line structures. No acute infarcti on changes seen. No abnormal extra-axial fluid collections. Ventricles are normal. Mastoid air cells and visualized portions of the paranasal sinuses are clear. No acute bony findings. The technical malfunction precluded immediate viewing of the images. Images were reviewed approximate ly 0415 hours but a report could not be transcribed at that time. Verbal report was telephoned at the time of image review. IMPRESSION: Negative non-contrast CT head examination. No significant change from comparison.
[2019-12-09 08:43] VITALS: O2SAT 99
[2019-12-09 08:45] VITALS: TEMP 98.1
[2019-12-09 08:46] VITALS: BP 99/62
--- NOTE | 2019-12-09 11:22 | RAD REPORT ---
EXAM DESCRIPTION: RAD - Chest Single View - 12/09/2019 4:48 am CLINICAL HISTORY: Syncope Chest pain. COMPARISON: Chest Single View dated 11/05/2019; Chest Single View dated 08/12/2019; Chest Single View dated 05/29/2019; Chest Single View dated 10/18/2018 FINDINGS: Portable technique limits examination quality. The lungs are grossly clear. The heart is normal in size. No displaced fractures. IMPRESSION: No acute intrathoracic process suspected.
--- NOTE | 2019-12-10 07:50 | EKG ---
Test Date: 2019-12-09 Test Time: 01:07:27 Mushroom Cultivator: JENNIFER MEASUREMENT RESULTS: Intervals: Rate: 87 UT: 134 QRSD: 74 QT: 370 QTc: 445 [place]: P: 39 UT: 134 QRS: 33 T: 38 INTERPRETIVE STATEMENTS: Normal sinus rhythm Normal ECG Compared to ECG 11/05/2019 02:11:50 Sinus arrhythmia no longer present Electronically Signed On 12-10-19 07:49:49 AUTOMOTIVE LUBE TECHNICIAN by Doroteo Elam
== END 2019-12-09 08:22 ==
LOC: ER 00:43
DX: K92.2 Gastrointestinal hemorrhage, unspecified (principal); D64.9 Anemia, unspecified; R10.9 Unspecified abdominal pain; G40.909 Epilepsy, unspecified, not intractable, without status epilepticus; Z88.2 Allergy status to sulfonamides; Z88.3 Allergy status to other anti-infective agents; Z88.5 Allergy status to narcotic agent; Z88.8 Allergy status to other drugs, medicaments and biological substances
CPT/HCPCS: 96365; 93005; 85025; 80048; 36415; 86900; 83735; 86850; 81025; 85610; 86901; 80076; 82272; 85018; 81003; 84484 ×2; 83880; 70450; 74176; 71045; 96375; 99285; 96366; J2550; J1200; C9113; J1170 ×2; J7030; J7040

== ENCOUNTER 2020-01-05 18:00 | Emergency (ER) | payer OTHER ==
--- NOTE | 2020-01-05 19:07 | RAD REPORT ---
EXAM DESCRIPTION: RAD - Chest Single View - 01/05/2020 6:55 pm CLINICAL HISTORY: COUGH Chest pain. COMPARISON: <Comparisons> FINDINGS: Portable technique limits examination quality. The lungs are grossly clear. The heart is normal in size. No displaced fractures. IMPRESSION: No acute intrathoracic process suspected.
[2020-01-05] MEDS ORDERED: PROMETHAZINE INJ 25 MG/ML AMP ONE ×2 (19:09→19:52)
[2020-01-05] MEDS ORDERED: HYDROMORPHONE HCL 1 MG/ML INJ ONE ×2 (19:10→19:52)
[2020-01-05] MEDS ORDERED: NA CHLORIDE 0.9% 1,000 ML ONE ×2 (19:10→20:13)
[2020-01-05 19:12] LABS: Absolute Lymphocytes (CBC) 1.1 K/uL (0.7-4.9); Basophils % 0.9 % (0-1.3); Hematocrit 39.8 % (36.0-45.0); Lymphocytes % 13.9 % (15.3-44.8); MPV 8.7 fL (7.6-11.3); RBC Red Blood Cell Count 4.26 M/uL (3.86-4.86)
--- NOTE | 2020-01-05 19:46 | RAD REPORT ---
EXAM DESCRIPTION: CT - Head Brain Wo Cont - 01/05/2020 7:30 pm CLINICAL HISTORY: HEADACHE Fever, headache COMPARISON: Head Brain Wo Cont dated 12/09/2019; Head Brain Wo Cont dated 10/16/2018 TECHNIQUE: All CT scans are performed using dose optimization technique as appropriate and may inclu de automated exposure control or mA/KV adjustment according to patient size. FINDINGS: No intracranial hemorrhage, hydrocephalus or extra-axial fluid collection.No areas of brai n edema or evidence of midline shift. Chronic sinusitis is seen in the sphenoid sinus left aspect. The calvarium is intact. IMPRESSION: No acute intracranial abnormality. Chronic sphenoid sinusitis.
--- NOTE | 2020-01-05 20:15 | ER ---
Nurse's Notes [facility] Name: Liza Dexter Age: 44 yrs Sex: Female : 1975 Arrival Date: 01/05/2020 Time: 18:04 Bed 19 Private MD: Diagnosis: Headache;Dizziness and giddiness Presentation: 01/05 18:20 Chief complaint: Patient states: fever up to 101.0 F, cough, congestion, sinus aa5 pressure, and headache that began 2 days. 18:20 Coronavirus screen: The patient has NOT traveled to [place] in the past 14 days. The aa5 patient has NOT had contact with known and/or suspected case of Coronavirus. Ebola Screen: Patient negative for fever greater than or equal to 101.5 degrees Fahrenheit, and additional compatible Ebola Virus Disease symptoms. Initial Sepsis Screen: Does the patient meet any 2 criteria? No. Patient's initial sepsis screen is negative. Does the patient have a suspected source of infection? No. Patient's initial sepsis screen is negative. Risk Assessment: Do you want to hurt yourself or someone else? Patient reports no desire to harm self or others. 18:20 Method Of Arrival: Ambulatory aa5 18:20 Acuity: JUAN 3 aa5 19:28 Onset of symptoms is unknown. mg2 Triage Assessment: 18:30 General: Appears in no apparent distress. uncomfortable, ill, Behavior is cooperative, mg2 appropriate for age, agitated. Pain: Complains of pain in Behind left eye. Respiratory: Airway is patent Breath sounds are clear. Historical: - Allergies: 18:41 ambien; aa5 18:41 CEPHALOSPORINS; aa5 18:41 Codeine; aa5 18:41 Demerol; aa5 18:41 Morphine; aa5 18:41 Nexium; aa5 18:41 Sulfa (Sulfonamide Antibiotics); aa5 18:41 Zofran; aa5 - PMHx: 18:41 Anemia; chron's; Colitis; Crohn's Disease; Lupus; Raynaud's syndrome; Scleroderma; aa5 Seizures; - Immunization history:: Adult Immunizations up to date. - Social history:: Smoking status: Patient denies any tobacco usage or history of. Screenin:30 Abuse screen: Denies threats or abuse. Nutritional screening: No deficits noted. mg2 Tuberculosis screening: No symptoms or risk factors identified. Fall Risk None identified. Assessment: 19:00 General: Appears in no apparent distress. Behavior is calm, cooperative. rv 19:00 Pain: Complains of pain in head. Neuro: Level of Consciousness is awake, alert, obeys rv commands, Oriented to person, place, time, situation, Reports headache that is the "worst ever". Cardiovascular: Patient's skin is warm and dry. Rhythm is sinus rhythm. Respiratory: Airway is patent Breath sounds are clear bilaterally. Derm: Skin is intact. Vital Signs: 18:20 BP 121 / 76; Pulse 87; Resp 18 S; Temp 98.4(TE); Pulse Ox 98% on R/A; Weight 92.99 kg aa5 (R); Height 5 ft. 6 in. (167.64 cm) (R); Pain 10/10; 19:00 BP 112 / 68; Pulse 76; Resp 17; Pulse Ox 99% on R/A; rv 20:30 BP 108 / 66; Pulse 76; Resp 16; Pulse Ox 98% on R/A; rv 21:17 BP 113 / 65; Pulse 75; Resp 15; Pulse Ox 98% on R/A; rv 18:20 Body Mass Index 33.09 (92.99 kg, 167.64 cm) aa5 ED Course: 18:04 Patient arrived in ED. mr 18:20 Arm band placed on Patient placed in an exam room, on a stretcher. aa5 18:22 Benjamín Mcfarland MD is Attending Physician. paola 18:30 Patient has correct armband on for positive identification. Bed in low position. Call mg2 light in reach. insurance and benefits clerk on. Pulse ox on. NIBP on. 18:35 Kristal Love, RN is Primary Nurse. vc 18:40 Triage completed. aa5 18:53 Radiology exam delayed due to pt refusing to come to CT before IV and pain meds. vm2 18:55 Chest Single View XRAY In Process Unspecified. EDMS 19:31 CT Head Brain wo Cont In Process Unspecified. EDMS 21:19 No provider procedures requiring assistance completed. IV discontinued, intact, rv bleeding controlled, No redness/swelling at site. Pressure dressing applied. Administered Medications: 19:07 Drug: NS 0.9% 1000 ml Route: IV; Rate: 1 bolus; Site: right antecubital; mg2 21:15 Follow up: IV Status: Completed infusion; IV Intake: 1000ml rv 19:07 Drug: Dilaudid 1 mg Route: IVP; Site: right antecubital; mg2 21:15 Follow up: Response: No adverse reaction; RASS: Alert and Calm (0) rv 19:17 Drug: Phenergan 12.5 mg Route: IVP; Site: right antecubital; mg2 21:16 Follow up: Response: No adverse reaction rv 19:55 Drug: Phenergan 12.5 mg Route: IVP; Site: right antecubital; rv 21:16 Follow up: Response: No adverse reaction rv 19:56 Drug: Dilaudid 1 mg {Note: rass 0.} Route: IVP; Site: right antecubital; rv 21:16 Follow up: Response: No adverse reaction; Pain is unchanged, physician notified; RASS: rv Alert and Calm (0) 20:30 Drug: TORadol - Ketorolac 15 mg Route: IVP; Site: right antecubital; rv 21:16 Follow up: Response: No adverse reaction; Marked relief of symptoms; Pain is decreased rv 20:30 Drug: Decadron - Dexamethasone 10 mg Route: IVP; Site: right antecubital; rv 21:16 Follow up: Response: No adverse reaction rv 20:30 Drug: Benadryl 25 mg Route: IVP; Site: right antecubital; rv 21:17 Follow up: Response: No adverse reaction rv 20:30 Drug: Meclizine 25 mg Route: PO; rv 21:17 Follow up: Response: No adverse reaction; Marked relief of symptoms rv 21:15 Not Given (discharged): NS 0.9% 1000 ml IV at 1 bolus Per protocol; 1000 mL bolus rv Intake: 21:15 IV: 1000ml; Total: 1000ml. rv Outcome: 20:14 Discharge ordered by . cp 21:19 Discharged to home ambulatory, with family. rv 21:19 Condition: improved 21:19 Discharge instructions given to patient, family, Instructed on discharge instructions, follow up and referral plans. medication usage, Demonstrated understanding of instructions, follow-up care, medications, Prescriptions given X 3. 21:30 Patient left the ED. rv Signatures: Dispatcher [employer] EDBenjamín Ruth MD MD cha Rivera, Mary mr Calderon, Audri, RN RN aa5 Benjamín Nguyen PA PA cp McGuire, Victoria [facility] King Cabrera RN RN mg2 Charles Browne RN RN rv Kristal Love RN RN vc Corrections: (The following items were deleted from the chart) 19: 19:07 NS 0.9% 1000 ml IV at 1 bolus in right antecubital mg2 mg2 : 19:17 Phenergan 12.5 mg IVP in right antecubital mg2 mg2 : 19:17 Dilaudid 1 mg IVP in right antecubital mg2 mg2
--- NOTE | 2020-01-05 20:15 | EDPHYS ---
Physician Documentation [facility] Name: Liza Dexter Age: 44 yrs Sex: Female : 1975 Arrival Date: 01/05/2020 Time: 18:04 Bed 19 Private MD: ED Physician Benjamín Mcfarland HPI: 01/05 18:43 This 44 yrs old Female presents to ER via Ambulatory with complaints of paola Congestion, Dizziness. 18:43 The patient presents with dizziness, generalized weakness, lightheadedness. paola Historical: - Allergies: 18:41 ambien; aa5 18:41 CEPHALOSPORINS; aa5 18:41 Codeine; aa5 18:41 Demerol; aa5 18:41 Morphine; aa5 18:41 Nexium; aa5 18:41 Sulfa (Sulfonamide Antibiotics); aa5 18:41 Zofran; aa5 - PMHx: 18:41 Anemia; chron's; Colitis; Crohn's Disease; Lupus; Raynaud's syndrome; Scleroderma; aa5 Seizures; - Immunization history:: Adult Immunizations up to date. - Social history:: Smoking status: Patient denies any tobacco usage or history of. ROS: 18:44 Constitutional: Negative for fever, chills, and weight loss, Eyes: Negative for injury, paola pain, redness, and discharge, ENT: Negative for injury, pain, and discharge, Neck: Negative for injury, pain, and swelling, Cardiovascular: Negative for chest pain, palpitations, and edema, Abdomen/GI: Negative for abdominal pain, nausea, vomiting, diarrhea, and constipation, Back: Negative for injury and pain, : Negative for injury, bleeding, discharge, and swelling, MS/Extremity: Negative for injury and deformity, Skin: Negative for injury, rash, and discoloration, Psych: Negative for depression, anxiety, suicide ideation, homicidal ideation, and hallucinations, Allergy/Immunology: Negative for hives, rash, and allergies, Endocrine: Negative for neck swelling, polydipsia, polyuria, polyphagia, and marked weight changes, Hematologic/Lymphatic: Negative for swollen nodes, abnormal bleeding, and unusual bruising. 18:44 Respiratory: Positive for cough. 18:44 Neuro: Positive for headache. Exam: 18:44 Constitutional: This is a well developed, well nourished patient who is awake, alert, paola and in no acute distress. Head/Face: Normocephalic, atraumatic. Eyes: Pupils equal round and reactive to light, extra-ocular motions intact. Lids and lashes normal. Conjunctiva and sclera are non-icteric and not injected. Cornea within normal limits. Periorbital areas with no swelling, redness, or edema. ENT: Nares patent. No nasal discharge, no septal abnormalities noted. Tympanic membranes are normal and external auditory canals are clear. Oropharynx with no redness, swelling, or masses, exudates, or evidence of obstruction, uvula midline. Mucous membranes moist. Neck: Trachea midline, no thyromegaly or masses palpated, and no cervical lymphadenopathy. Supple, full range of motion without nuchal rigidity, or vertebral point tenderness. No Meningismus. Chest/axilla: Normal chest wall appearance and motion. Nontender with no deformity. No lesions are appreciated. Cardiovascular: Regular rate and rhythm with a normal S1 and S2. No gallops, murmurs, or rubs. Normal PMI, no JVD. No pulse deficits. Abdomen/GI: Soft, non-tender, with normal bowel sounds. No distension or tympany. No guarding or rebound. No evidence of tenderness throughout. Back: No spinal tenderness. No costovertebral tenderness. Full range of motion. Skin: Warm, dry with normal turgor. Normal color with no rashes, no lesions, and no evidence of cellulitis. MS/ Extremity: Pulses equal, no cyanosis. Neurovascular intact. Full, normal range of motion. Neuro: Awake and alert, GCS 15, oriented to person, place, time, and situation. Cranial nerves II-XII grossly intact. Motor strength 5/5 in all extremities. Sensory grossly intact. Cerebellar exam normal. Normal gait. 18:44 Respiratory: the patient does not display signs of respiratory distress, Respirations: normal, no acute changes, Breath sounds: are clear throughout, Respiratory rate: 18 18:53 Neck: ROM/movement: is normal, no acute changes, limited range of motion, is not paola appreciated, Meningeal signs: are not present, Kernig's sign is negative, Brudzinski's sign is negative. Vital Signs: 18:20 BP 121 / 76; Pulse 87; Resp 18 S; Temp 98.4(TE); Pulse Ox 98% on R/A; Weight 92.99 kg aa5 (R); Height 5 ft. 6 in. (167.64 cm) (R); Pain 10/10; 19:00 BP 112 / 68; Pulse 76; Resp 17; Pulse Ox 99% on R/A; rv 20:30 BP 108 / 66; Pulse 76; Resp 16; Pulse Ox 98% on R/A; rv 21:17 BP 113 / 65; Pulse 75; Resp 15; Pulse Ox 98% on R/A; rv 18:20 Body Mass Index 33.09 (92.99 kg, 167.64 cm) aa5 MDM: 18:22 Patient medically screened. [facility] 18:44 Data reviewed: vital signs, nurses notes, lab test result(s), radiologic studies, CT [facility] scan, plain films. 01/05 18:43 Order name: CBC with Diff; Complete Time: 19:32 [facility] 01/05 19:32 Interpretation: Normal except: MCV 93.5; RDW 15.8; MARYCRUZ% 74.7; LYM% 13.9. 01/05 18:43 Order name: CT Head Brain wo Cont; Complete Time: 20:13 [facility] 01/05 20:13 Interpretation: Report reviewed. 01/05 18:43 Order name: Influenza Screen (a \T\ B); Complete Time: 19:43 [facility] 01/05 20:13 Interpretation: Reviewed. 01/05 18:44 Order name: Procalcitonin; Complete Time: 20:13 [facility] 01/05 20:13 Interpretation: Reviewed. 01/05 18:44 Order name: Chest Single View XRAY; Complete Time: 19:19 [facility] 01/05 18:43 Order name: Urine Dipstick-Ancillary (obtain specimen) [facility] Administered Medications: 19:07 Drug: NS 0.9% 1000 ml Route: IV; Rate: 1 bolus; Site: right antecubital; mg2 21:15 Follow up: IV Status: Completed infusion; IV Intake: 1000ml 19:07 Drug: Dilaudid 1 mg Route: IVP; Site: right antecubital; mg2 21:15 Follow up: Response: No adverse reaction; RASS: Alert and Calm (0) rv 19:17 Drug: Phenergan 12.5 mg Route: IVP; Site: right antecubital; mg2 21:16 Follow up: Response: No adverse reaction rv 19:55 Drug: Phenergan 12.5 mg Route: IVP; Site: right antecubital; rv 21:16 Follow up: Response: No adverse reaction rv 19:56 Drug: Dilaudid 1 mg {Note: rass 0.} Route: IVP; Site: right antecubital; rv 21:16 Follow up: Response: No adverse reaction; Pain is unchanged, physician notified; RASS: rv Alert and Calm (0) 20:30 Drug: TORadol - Ketorolac 15 mg Route: IVP; Site: right antecubital; rv 21:16 Follow up: Response: No adverse reaction; Marked relief of symptoms; Pain is decreased rv 20:30 Drug: Decadron - Dexamethasone 10 mg Route: IVP; Site: right antecubital; rv 21:16 Follow up: Response: No adverse reaction rv 20:30 Drug: Benadryl 25 mg Route: IVP; Site: right antecubital; rv 21:17 Follow up: Response: No adverse reaction rv 20:30 Drug: Meclizine 25 mg Route: PO; rv 21:17 Follow up: Response: No adverse reaction; Marked relief of symptoms rv 21:15 Not Given (discharged): NS 0.9% 1000 ml IV at 1 bolus Per protocol; 1000 mL bolus rv Disposition: 01/05/20 20:14 Discharged to Home. Impression: Headache, Dizziness and giddiness. - Condition is Stable. - Discharge Instructions: Dizziness, General Headache Without Cause, General Headache Without Cause, [id number], Dizziness, [id number]. - Prescriptions for promethazine 25 mg Oral Tablet - take 1 tablet by ORAL route every 6 hours As needed; 20 tablet. Meclizine 25 mg Oral Tablet - take 1 tablet by ORAL route every 8 hours As needed; 30 tablet. Phenergan 25 mg Rectal Suppository - insert 1 suppository by RECTAL route every 6 hours As needed; 12 suppository. - Medication Reconciliation Form, Thank You Letter, Antibiotic Education, Prescription Opioid Use form. - Follow up: Private Physician; When: 2 - 3 days; Reason: Recheck today's complaints, Continuance of care, Re-evaluation by your physician. - Problem is new. - Symptoms have improved. Signatures: Dispatcher [employer] EDMS Benjamín Mcfarland MD MD cha Calderon, Audri RN RN aa5 Benjamín Nguyen PA PA cp King Cabrera, RN RN mg2 Charles Browne RN RN rv Corrections: (The following items were deleted from the chart) 21:30 20:14 01/05/2020 20:14 Discharged to Home. Impression: Headache; Dizziness and rv giddiness. Condition is Stable. Discharge Instructions: Dizziness, General Headache Without Cause, General Headache Without Cause, [id number], Dizziness, [id number]. Prescriptions for promethazine 25 mg Oral Tablet - take 1 tablet by ORAL route every 6 hours As needed; 20 tablet. and Forms are Medication Reconciliation Form, Thank You Letter, Antibiotic Education, Prescription Opioid Use. Follow up: Private Physician; When: 2 - 3 days; Reason: Recheck today's complaints, Continuance of care, Re-evaluation by your physician. Problem is new. Symptoms have improved. cp
[2020-01-05] MEDS ORDERED: MECLIZINE HCL 12.5 MG TAB ONE (20:30)
[2020-01-05] MEDS ORDERED: DIPHENHYDRAMINE 50 MG/ML VIAL ONE (20:30)
[2020-01-05] MEDS ORDERED: KETOROLAC 30 MG/ML INJ ONE (20:31)
[2020-01-05] MEDS ORDERED: dexAMETHasone 4 MG/ML VIAL ONE (20:31)
--- OUTSIDE RECORDS SUMMARY | 2020-01-05 22:17 | XMS REPORT ---
:1975 [facility] Address [address] [place] [address] Care Team Providers Name Role Phone Unavailable Unavailable Unavailable Payers Payer Name Policy Type Policy Number Effective Date Expiration Date Problems This patient has no known problems. Allergies, Adverse Reactions, Alerts Allergy Name Allergy Status Severity Reaction(s) Onset Inactive Treating Comments Type Date Date Clinician zolpidem DA Active U 2020-0 2-01 00:00: 00 Cephalosporins DA Active U 2019-0 2-01 00:00: 00 morphine DA Active U 2019-0 2-01 00:00: 00 codeine DA Active U 2020-0 2-01 00:00: 00 fentanyl DA Active U 2020-0 2-01 00:00: 00 meperidine DA Active U 2020-0 2-01 00:00: 00 ondansetron DA Active U 2020-0 2-01 00:00: 00 esomeprazole DA Active U 2020-0 2-01 00:00: 00 clindamycin DA Active U 2019-0 2-01 00:00: 00 Medications This patient has no known medications. Encounters Start End Encounter Admission Attending Care Care Encounter Date/Time Date/Time Type Type Clinicians Facility Department ID 2020-01-02 Outpatient [facility] [id number] 11:21:24 2019-11-27 2019-11-27 Outpatient E [facility]SE MED 7524 17:46:00 17:46:00 Results Test Description Test Time Test Comments Text Results Atomic Results Result Comments SURGICAL 2019-12-19 RUN DATE: SPECIMENS 14:02:00 12/19/19 [facility] *LIVE* PAGE 1 RUN TIME: 1402 Specimen Inquiry RUN USER: INTERFACE PATIENT: SABINE GRACE LOC: Anup4SMSO U #: [id number] AGE/SX: 44/F ROOM: [facility] RE12/09/19REG DR: Lance Munguia MD : 75 BED: 1 DIS: 12/19/19 STATUS: DIS IN TLOC: SPEC #: [id number] RECD: 12/15/19 STATUS: DOTTY ROJAS # : [id number] JOSIE: 12/15/[address]: Lance Munguia MD ENTERED: 12/19/19 SP TYPE: SURG SPEC OTHR DR: No Primary or Family Physician Self Referred Jocelynn Mukherjee MD, Khoi H MD Fuke, Chris T MD Malhotra, Advitya MD Meerasahib,Deanna Carmona MD, MDORDERED: GM LEVEL 4 CODES : [id number] - ESOPHAGUS, NOS [id number] - SMALL INTESTINE COPIES TO: No Primary or Family Physician Self Referred Jocelynn Mukherjee MD [address] [place] [address] Silvino Guerrero MD [address] [place], [place] [address] Nish To MD [address] [place] [address] Alli Campbell MD [address] [place], [place] [address] OTHER PHONE [phone] (CELL) Edward Sepulveda MD [address] [place], [place] [phone] CONTINUED ON NEXT PAGE * * RUN DATE: 12/19/19 [facility] *LIVE* PAGE 2 RUN TIME: 1402 Specimen Inquiry RUN USER: INTERFACE SPEC #: [id number] PATIENT: SABINE GRACE #[id number] (Continued) COPIES TO: (Continued) Deanna Queen MD [address] [place] [address] Lance Munguia MD [address] [place] [phone] PROCEDURES: LEVEL 4 (Incomplete) TISSUES: 1. SMALL INTESTINE , NOS - Small intestine, jejunum, bx. 2. ESOPHAGUS, NOS - Esophagus, GE junction, bx. FINAL DIAGNOSIS Small intestine, jejunum, bx.: Intact villous architecture, no evidence of celiac sprue. 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 GROSS AND MICROSCOPIC MICROSCOPIC EXAMINATION: Received in formalin labeled jejunal biopsy are 3 reis tissue fragments measuring up to 0.3 cm (A). Received in formalin labeled GE junction biopsy is 1 pink-reis tissue fragment measuring up to 0.4 cm (B). GROSS EXAMINATION: Sections of the jejunal biopsy reveal intact villous architecture, no evidence of celiac sprue. Sections of the GE junction biopsy reveal acute esophagitis with reactive foveolar epithelium with focal intestinal metaplasia. The epithelium shows some atypia favored to be reactive in nature. Alcian blue-PAS staining highlights the focal intestinal metaplasia. (When special stains have been reviewed, the appropriate positive/negative controls have been reviewed and are appropriately positive/negative). 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 CONTINUED ON NEXT PAGE RUN DATE: 12/19/19 [facility] *LIVE* PAGE 3 RUN TIME: 1402 Specimen Inquiry RUN USER: INTERFACE SPEC #: [id number] PATIENT: SABINE GRACE #[id number] (Continued) POST-OP DIAGNOSIS GE junction polyp, status post gastric bypass PRE-OP DIAGNOSIS Gastrointestinal bleed REVIEWED BY: FLAKITO Signed SIGNATURE ON FILE Balta Helm DO 12/19/19 1402 END OF REPORT HGB HCT 2019-12-18 15:12:00 Test Item Value Reference Range Comments HEMOGLOBIN (test code=HGB) 10.0 g/dL 11.0-15.0 HEMATOCRIT (test code=HCT) 32.7 % 33.0-45.0 CBC W/AUTO [id number] 09:31:00 Test Item Value Reference Range Comments WHITE BLOOD CELL (test code=WBC) 5.05 x10 3/uL 4.5-11.0 RED BLOOD CELL (test code=RBC) 3.24 x10 6/uL 3.54-5.02 HEMOGLOBIN (test code=HGB) 9.9 g/dL 11.0-15.0 HEMATOCRIT (test code=HCT) 31.5 % 33.0-45.0 MEAN CELL VOLUME (test code=MCV) 97.2 fL 81.0-99.0 MEAN CELL HGB (test code=MCH) 30.6 pg 27.0-33.0 MEAN CELL HGB CONCETRATION (test code=MCHC) 31.4 g/dL 33.0-37.0 RED CELL DISTRIBUTION WIDTH CV (test code=RDW) 19.1 % 11.5-14.5 RED CELL DISTRIBUTION WIDTH SD (test 60.5 fL 37.0-54.0 code=RDW-SD) PLATELET COUNT (test code=PLT) 178 x10 3/uL 150-400 MEAN PLATELET VOLUME (test code=MPV) 9.8 fL 7.0-9.0 NEUTROPHIL % (test code=NT%) 71.9 % 56.0-77.0 IMMATURE GRANULOCYTE % (test code=IG%) 0.2 % 0.0-2.0 LYMPHOCYTE % (test code=LY%) 15.4 % 14.0-32.0 MONOCYTE % (test code=MO%) 8.5 % 4.8-9.0 EOSINOPHIL % (test code=EO%) 3.8 % 0.3-3.7 BASOPHIL % (test code=BA%) 0.2 % 0.0-2.0 NUCLEATED RBC % (test code=NRBC%) 0.0 % 0-0 NEUTROPHIL # (test code=NT#) 3.63 x10 3/uL 2.0-7.6 IMMATURE GRANULOCYTE # (test code=IG#) 0.01 x10 3/uL 0.00-0.03 LYMPHOCYTE # (test code=LY#) 0.78 x10 3/uL 1.0-3.8 MONOCYTE # (test code=MO#) 0.43 x10 3/uL 0.1-0.8 EOSINOPHIL # (test code=EO#) 0.19 x10 3/uL 0.0-0.2 BASOPHIL # (test code=BA#) 0.01 x10 3/uL 0.0-0.2 NUCLEATED RBC # (test code=NRBC#) 0.00 x10 3/uL 0.0-0.1 MANUAL DIFF REQUIRED (test code=MDIFF) NO BASIC METABOLIC [id number] 08:03:00 Test Item Value Reference Range Comments SODIUM (test code=NA) 143 mEq/L 134-147 POTASSIUM (test code=K) 3.5 mEq/L 3.4-5.0 CHLORIDE (test code=CL) 112 mEq/L 100-108 CARBON DIOXIDE (test code=CO2) 23 mEq/L 21-33 ANION GAP (test code=GAP) 12 0-20 GLUCOSE (test code=GLU) 74 mg/dL 70-110 BLOOD UREA NITROGEN (test 8 mg/dL 7-18 code=BUN) GLOMERULAR FILTRATION RATE 173.4 95-105 Units of measure=ml/min/1.73 (test code=GFR) m2 CREATININE (test code=CREAT) 0.4 mg/dL 0.6-1.3 CALCIUM (test code=CA) 7.9 mg/dL 8.0-10.5 [id number] 08:03:00 Test Item Value Reference Range Comments MAGNESIUM (test code=MAG) 2.10 mg/dL 1.8-2.4 CBC W/AUTO [id number] 07:41:00 Test Item Value Reference Range Comments WHITE BLOOD CELL (test code=WBC) 7.16 x10 3/uL 4.5-11.0 RED BLOOD CELL (test code=RBC) 2.92 x10 6/uL 3.54-5.02 HEMOGLOBIN (test code=HGB) 8.8 g/dL 11.0-15.0 HEMATOCRIT (test code=HCT) 28.8 % 33.0-45.0 MEAN CELL VOLUME (test code=MCV) 98.6 fL 81.0-99.0 MEAN CELL HGB (test code=MCH) 30.1 pg 27.0-33.0 MEAN CELL HGB CONCETRATION (test code=MCHC) 30.6 g/dL 33.0-37.0 RED CELL DISTRIBUTION WIDTH CV (test code=RDW) 18.1 % 11.5-14.5 RED CELL DISTRIBUTION WIDTH SD (test 54.8 fL 37.0-54.0 code=RDW-SD) PLATELET COUNT (test code=PLT) 173 x10 3/uL 150-400 MEAN PLATELET VOLUME (test code=MPV) 10.1 fL 7.0-9.0 NEUTROPHIL % (test code=NT%) 71.2 % 56.0-77.0 IMMATURE GRANULOCYTE % (test code=IG%) 0.7 % 0.0-2.0 LYMPHOCYTE % (test code=LY%) 17.6 % 14.0-32.0 MONOCYTE % (test code=MO%) 8.0 % 4.8-9.0 EOSINOPHIL % (test code=EO%) 2.4 % 0.3-3.7 BASOPHIL % (test code=BA%) 0.1 % 0.0-2.0 NUCLEATED RBC % (test code=NRBC%) 0.0 % 0-0 NEUTROPHIL # (test code=NT#) 5.10 x10 3/uL 2.0-7.6 IMMATURE GRANULOCYTE # (test code=IG#) 0.05 x10 3/uL 0.00-0.03 LYMPHOCYTE # (test code=LY#) 1.26 x10 3/uL 1.0-3.8 MONOCYTE # (test code=MO#) 0.57 x10 3/uL 0.1-0.8 EOSINOPHIL # (test code=EO#) 0.17 x10 3/uL 0.0-0.2 BASOPHIL # (test code=BA#) 0.01 x10 3/uL 0.0-0.2 NUCLEATED RBC # (test code=NRBC#) 0.00 x10 3/uL 0.0-0.1 MANUAL DIFF REQUIRED (test code=MDIFF) NO HCG SERUM [id number] 10:08:00 Test Item Value Reference Range Comments HCG SERUM QUAL (test code=HCGQL) SERUM NEGATIVE NEGATIVE PROTHROMBIN [id number] 09:59:00 Test Item Value Reference Range Comments PROTHROMBIN TIME PATIENT 12.2 SECONDS 9.3-12.9 (test code=PTP) INTERNATIONAL NORMAL RATIO 1.1 0.8-1.2 TARGET INR BY (test code=INR) INDICATION Indication INR1. Prophylaxis of venous thrombosis 2.0 - 3.0 (orthopedic surgery), Prophylaxis of venous thrombosis (other than high-risk surgery), Treatment of Deep Vein Thrombosis/Pulmonary Embolism, Prevention of systemic embolism - Tissue heart valves, Acute Myocardial Infarction (to prevent systemic embolism), Valvular heart disease, Atrial Fibrillation, Bileaflet mechanical valve in aortic position.2. Mechanical prosthetic valves (high risk), 2.5 - 3.5 Presence of Lupus Anticoagulant or Antiphospholipid Antibodies, Prevention of systemic embolism - Acute Myocardial Infarction (to prevent recurrent infarct). THROMBOPLASTIN TIME [id number] 09:59:00 Test Item Value Reference Range Comments THROMBOPLASTIN TIME PARTIAL 33.1 Seconds 25.0-39.5 Therapeutic Range: (test code=PTT) 50.4 - 88.3 Seconds Effective 02/21/2019 COMPREHENSIVE METABOLIC [id number] 07:05:00 Test Item Value Reference Range Comments SODIUM (test code=NA) 144 mEq/L 134-147 POTASSIUM (test code=K) 3.3 mEq/L 3.4-5.0 CHLORIDE (test code=CL) 111 mEq/L 100-108 CARBON DIOXIDE (test code=CO2) 25 mEq/L 21-33 ANION GAP (test code=GAP) 11 0-20 GLUCOSE (test code=GLU) 89 mg/dL 70-110 BLOOD UREA NITROGEN (test 7 mg/dL 7-18 code=BUN) GLOMERULAR FILTRATION RATE 134.0 95-105 Units of (test code=GFR) measure=ml/min/1.73 m2 CREATININE (test code=CREAT) 0.5 mg/dL 0.6-1.3 TOTAL PROTEIN (test code=PROT) 4.8 g/dL 6.4-8.2 ALBUMIN (test code=ALB) 2.10 g/dL 3.4-5.0 CALCIUM (test code=CA) 7.2 mg/dL 8.0-10.5 BILIRUBIN TOTAL (test < 0.1 MG/DL <1.5 code=BILT) SGOT/AST (test code=AST) 27 IUnit/L 15-37 SGPT/ALT (test code=ALT) 21 IUnit/L 15-65 ALKALINE PHOSPHATASE TOTAL 78 IUnit/L 20-125 (test code=ALKP) CBC W/AUTO [id number] 06:54:00 Test Item Value Reference Range Comments WHITE BLOOD CELL (test code=WBC) 7.16 x10 3/uL 4.5-11.0 RED BLOOD CELL (test code=RBC) 2.96 x10 6/uL 3.54-5.02 HEMOGLOBIN (test code=HGB) 9.2 g/dL 11.0-15.0 HEMATOCRIT (test code=HCT) 28.5 % 33.0-45.0 MEAN CELL VOLUME (test code=MCV) 96.3 fL 81.0-99.0 MEAN CELL HGB (test code=MCH) 31.1 pg 27.0-33.0 MEAN CELL HGB CONCETRATION (test code=MCHC) 32.3 g/dL 33.0-37.0 RED CELL DISTRIBUTION WIDTH CV (test code=RDW) 17.2 % 11.5-14.5 RED CELL DISTRIBUTION WIDTH SD (test 52.1 fL 37.0-54.0 code=RDW-SD) PLATELET COUNT (test code=PLT) 197 x10 3/uL 150-400 MEAN PLATELET VOLUME (test code=MPV) 9.9 fL 7.0-9.0 NEUTROPHIL % (test code=NT%) 65.4 % 56.0-77.0 IMMATURE GRANULOCYTE % (test code=IG%) 1.3 % 0.0-2.0 LYMPHOCYTE % (test code=LY%) 20.7 % 14.0-32.0 MONOCYTE % (test code=MO%) 9.2 % 4.8-9.0 EOSINOPHIL % (test code=EO%) 3.1 % 0.3-3.7 BASOPHIL % (test code=BA%) 0.3 % 0.0-2.0 NUCLEATED RBC % (test code=NRBC%) 1.0 % 0-0 NEUTROPHIL # (test code=NT#) 4.69 x10 3/uL 2.0-7.6 IMMATURE GRANULOCYTE # (test code=IG#) 0.09 x10 3/uL 0.00-0.03 LYMPHOCYTE # (test code=LY#) 1.48 x10 3/uL 1.0-3.8 MONOCYTE # (test code=MO#) 0.66 x10 3/uL 0.1-0.8 EOSINOPHIL # (test code=EO#) 0.22 x10 3/uL 0.0-0.2 BASOPHIL # (test code=BA#) 0.02 x10 3/uL 0.0-0.2 NUCLEATED RBC # (test code=NRBC#) 0.07 x10 3/uL 0.0-0.1 MANUAL DIFF REQUIRED (test code=MDIFF) NO HGB [id number] 01:33:00 Test Item Value Reference Range Comments HEMOGLOBIN (test code=HGB) 9.0 g/dL 11.0-15.0 HEMATOCRIT (test code=HCT) 28.4 % 33.0-45.0 COMPREHENSIVE METABOLIC [id number] 04:43:00 Test Item Value Reference Range Comments SODIUM (test code=NA) 142 mEq/L 134-147 POTASSIUM (test code=K) 3.4 mEq/L 3.4-5.0 CHLORIDE (test code=CL) 112 mEq/L 100-108 CARBON DIOXIDE (test code=CO2) 25 mEq/L 21-33 ANION GAP (test code=GAP) 8 0-20 GLUCOSE (test code=GLU) 91 mg/dL 70-110 BLOOD UREA NITROGEN (test 14 mg/dL 7-18 code=BUN) GLOMERULAR FILTRATION RATE 90.9 95-105 Units of (test code=GFR) measure=ml/min/1.73 m2 CREATININE (test code=CREAT) 0.7 mg/dL 0.6-1.3 TOTAL PROTEIN (test code=PROT) 4.6 g/dL 6.4-8.2 ALBUMIN (test code=ALB) 2.10 g/dL 3.4-5.0 CALCIUM (test code=CA) 7.1 mg/dL 8.0-10.5 BILIRUBIN TOTAL (test 0.2 MG/DL <1.5 code=BILT) SGOT/AST (test code=AST) 14 IUnit/L 15-37 SGPT/ALT (test code=ALT) 17 IUnit/L 15-65 ALKALINE PHOSPHATASE TOTAL 64 IUnit/L 20-125 (test code=ALKP) CBC W/AUTO [id number] 04:20:00 Test Item Value Reference Range Comments WHITE BLOOD CELL (test code=WBC) 8.86 x10 3/uL 4.5-11.0 RED BLOOD CELL (test code=RBC) 2.50 x10 6/uL 3.54-5.02 HEMOGLOBIN (test code=HGB) 7.4 g/dL 11.0-15.0 HEMATOCRIT (test code=HCT) 23.4 % 33.0-45.0 MEAN CELL VOLUME (test code=MCV) 93.6 fL 81.0-99.0 MEAN CELL HGB (test code=MCH) 29.6 pg 27.0-33.0 MEAN CELL HGB CONCETRATION (test code=MCHC) 31.6 g/dL 33.0-37.0 RED CELL DISTRIBUTION WIDTH CV (test code=RDW) 17.6 % 11.5-14.5 RED CELL DISTRIBUTION WIDTH SD (test 54.2 fL 37.0-54.0 code=RDW-SD) PLATELET COUNT (test code=PLT) 177 x10 3/uL 150-400 MEAN PLATELET VOLUME (test code=MPV) 9.6 fL 7.0-9.0 NEUTROPHIL % (test code=NT%) 68.6 % 56.0-77.0 IMMATURE GRANULOCYTE % (test code=IG%) 1.1 % 0.0-2.0 LYMPHOCYTE % (test code=LY%) 20.4 % 14.0-32.0 MONOCYTE % (test code=MO%) 6.7 % 4.8-9.0 EOSINOPHIL % (test code=EO%) 3.0 % 0.3-3.7 BASOPHIL % (test code=BA%) 0.2 % 0.0-2.0 NUCLEATED RBC % (test code=NRBC%) 0.7 % 0-0 NEUTROPHIL # (test code=NT#) 6.07 x10 3/uL 2.0-7.6 IMMATURE GRANULOCYTE # (test code=IG#) 0.10 x10 3/uL 0.00-0.03 LYMPHOCYTE # (test code=LY#) 1.81 x10 3/uL 1.0-3.8 MONOCYTE # (test code=MO#) 0.59 x10 3/uL 0.1-0.8 EOSINOPHIL # (test code=EO#) 0.27 x10 3/uL 0.0-0.2 BASOPHIL # (test code=BA#) 0.02 x10 3/uL 0.0-0.2 NUCLEATED RBC # (test code=NRBC#) 0.06 x10 3/uL 0.0-0.1 MANUAL DIFF REQUIRED (test code=MDIFF) NO - CTA ABD PEL W [id number] 21:11:00 Name: SABINE GRACE [facility] Marbella Morales : 1975 Age/S: 44 / F [address] [place] [address] Blvd Unit #: [id number] Loc: [place] [id number] Phys: Willis Patel DO Acct: [id number] Dis Date: Status: ADM IN PHONE #: [phone] Exam Date: 12/13/20192027 FAX #: [phone] Reason: BRIGHT RED BLOOD IN TOLIET. EXAMS: CPTCODE: [id number] CTA ABD PEL W CONT 22706 Clinical Indication: BRIGHT RED BLOOD IN TOILET. Comparison: CT abdomen pelvis 12/09/2019 TECHNIQUE: Helical imaging was performed after injection of IV contrast, from the lung base throughthe symphysis with multiplanar reformations obtained. IV CONTRAST: 100 mL of Isovue-300 GI CONTRAST: Oral contrast was administered. DLP: 1482 mGy-cm FINDINGS: CT ABDOMEN AND PELVIS WITH CONTRAST: LUNG BASE: The lung bases are clear. LIVER: The liver parenchyma is normal in appearance without masses or intrahepatic biliary ductal dilatation. The portal vein is normal in caliber. BILIARY TREE: The common bile duct is normal in caliber without evidence of filling defects. GALLBLADDER: The gallbladder is nonvisualized, likely resected. PANCREAS: The pancreas isunremarkable. The pancreatic duct is normal in caliber. SPLEEN: The spleen is normal in size and there are no parenchymal abnormalities. ADRENALS: The right adrenal gland is unremarkable. The left adrenal gland is unremarkable. KIDNEYS: Thekidneys demonstrates normal contrast enhancement. A 2.0 cm cyst is seen in the left kidney. There is no evidence of renal or ureteral calculi. There is no evidence of hydronephrosis. BOWEL: The visualized portion of the esophagus is unremarkable. Surgical changes of gastroplasty are present. The small bowel is normal in caliber and there is no evidence of masses or obstruction. The colon is normal in caliber without any masses. Colonic diverticulosis is seen in the sigmoid colon. APPENDIX: The appendix is unremarkable. PAGE 1 Signed Report (CONTINUED) Name: [facility] : 1975 Age/S: 44 / F [address] [place] [address] Blvd Unit #: [id number] Loc: [place] [address] Phys: Willis Patel DO Acct: [id number] Dis Date: Status: ADM IN PHONE #: [phone] Exam Date: FAX #: [phone] Reason: BRIGHT RED BLOOD IN TOLIET. EXAMS: CPT CODE: [id number] CTA ABD PEL WCONT 68490 < Continued> PELVIS: There are no pelvic masses. The urinary bladder is unremarkable. The uterus and ovaries are unremarkable. PERITONEUM: There is no evidence for free intraperitoneal fluid or air. SOFT TISSUES: The soft tissues are unremarkable. There is no evidence of masses or hernias. LYMPH NODES: There is no evidence of mesenteric, retroperitoneal, or inguinallymphadenopathy. VASCULATURE: The abdominal aorta is normal in caliber. The branches of the abdominal aorta are widely patent. MUSCULOSKELETAL: The visualized bony skeleton is unremarkable. IMPRESSION: 1. No acute findings in abdomen and pelvis. No evidence of IV contrast extravasation to suggest acute bleeding. 2. Cholecystectomy. 3. Left renal cyst. 4. Surgical changes of gastroplasty. 5. Colonic diverticulosis. SL: LANVU-H at 2110 Reported and signed by: Han Quinones M.D. CC: Lance Munguia MD; Willis Patel DO Technologist: Michelle Goodwin, RT(R)(CT) CTDI: DLP: Trnscb Date/Time: 2019 (2110) tCECILIAV Orig Print D/T: S: 12/13/2019 (2113 ) PAGE 2 Signed ReportHGB [id number] 18:54:00 Test Item Value Reference Range Comments HEMOGLOBIN (test code=HGB) 7.6 g/dL 11.0-15.0 HEMATOCRIT (test code=HCT) 23.6 % 33.0-45.0 HGB [id number] 12:53:00 Test Item Value Reference Range Comments HEMOGLOBIN (test code=HGB) 8.7 g/dL 11.0-15.0 HEMATOCRIT (test code=HCT) 26.6 % 33.0-45.0 BASIC METABOLIC [id number] 07:02:00 Test Item Value Reference Range Comments SODIUM (test code=NA) 140 mEq/L 134-147 POTASSIUM (test code=K) 3.5 mEq/L 3.4-5.0 CHLORIDE (test code=CL) 110 mEq/L 100-108 CARBON DIOXIDE (test code=CO2) 26 mEq/L 21-33 ANION GAP (test code=GAP) 8 0-20 GLUCOSE (test code=GLU) 97 mg/dL 70-110 BLOOD UREA NITROGEN (test 12 mg/dL 7-18 code=BUN) GLOMERULAR FILTRATION RATE 173.4 95-105 Units of measure=ml/min/1.73 (test code=GFR) m2 CREATININE (test code=CREAT) 0.4 mg/dL 0.6-1.3 CALCIUM (test code=CA) 7.3 mg/dL 8.0-10.5 [id number] 07:02:00 Test Item Value Reference Range Comments PHOSPHOROUS (test code=PHOS) 2.8 MG/DL 2.5-4.9 [id number] 07:02:00 Test Item Value Reference Range Comments MAGNESIUM (test code=MAG) 2.30 mg/dL 1.8-2.4 BASIC METABOLIC [id number] 06:56:00 Test Item Value Reference Range Comments SODIUM (test code=NA) 140 mEq/L 134-147 POTASSIUM (test code=K) 3.5 mEq/L 3.4-5.0 CHLORIDE (test code=CL) 110 mEq/L 100-108 CARBON DIOXIDE (test code=CO2) 26 mEq/L 21-33 ANION GAP (test code=GAP) 8 0-20 GLUCOSE (test code=GLU) 97 mg/dL 70-110 BLOOD UREA NITROGEN (test code=BUN) 12 mg/dL 7-18 GLOMERULAR FILTRATION RATE (test code=GFR) 95-105 CREATININE (test code=CREAT) mg/dL 0.6-1.3 CALCIUM (test code=CA) 7.3 mg/dL 8.0-10.5 [id number] 06:56:00 Test Item Value Reference Range Comments PHOSPHOROUS (test code=PHOS) MG/DL 2.5-4.9 [id number] 06:56:00 Test Item Value Reference Range Comments MAGNESIUM (test code=MAG) 2.30 mg/dL 1.8-2.4 LACTIC [id number] 06:51:00 Test Item Value Reference Range Comments LACTIC ACID (test code=LACT) 0.6 mmol/L 0.4-1.9 CBC W/AUTO [id number] 06:37:00 Test Item Value Reference Range Comments WHITE BLOOD CELL (test code=WBC) 6.52 x10 3/uL 4.5-11.0 RED BLOOD CELL (test code=RBC) 2.71 x10 6/uL 3.54-5.02 HEMOGLOBIN (test code=HGB) 8.2 g/dL 11.0-15.0 HEMATOCRIT (test code=HCT) 24.7 % 33.0-45.0 MEAN CELL VOLUME (test code=MCV) 91.1 fL 81.0-99.0 MEAN CELL HGB (test code=MCH) 30.3 pg 27.0-33.0 MEAN CELL HGB CONCETRATION (test code=MCHC) 33.2 g/dL 33.0-37.0 RED CELL DISTRIBUTION WIDTH CV (test code=RDW) 16.9 % 11.5-14.5 RED CELL DISTRIBUTION WIDTH SD (test 51.6 fL 37.0-54.0 code=RDW-SD) PLATELET COUNT (test code=PLT) 158 x10 3/uL 150-400 MEAN PLATELET VOLUME (test code=MPV) 9.7 fL 7.0-9.0 NEUTROPHIL % (test code=NT%) 73.7 % 56.0-77.0 IMMATURE GRANULOCYTE % (test code=IG%) 0.8 % 0.0-2.0 LYMPHOCYTE % (test code=LY%) 16.0 % 14.0-32.0 MONOCYTE % (test code=MO%) 7.2 % 4.8-9.0 EOSINOPHIL % (test code=EO%) 2.1 % 0.3-3.7 BASOPHIL % (test code=BA%) 0.2 % 0.0-2.0 NUCLEATED RBC % (test code=NRBC%) 0.5 % 0-0 NEUTROPHIL # (test code=NT#) 4.81 x10 3/uL 2.0-7.6 IMMATURE GRANULOCYTE # (test code=IG#) 0.05 x10 3/uL 0.00-0.03 LYMPHOCYTE # (test code=LY#) 1.04 x10 3/uL 1.0-3.8 MONOCYTE # (test code=MO#) 0.47 x10 3/uL 0.1-0.8 EOSINOPHIL # (test code=EO#) 0.14 x10 3/uL 0.0-0.2 BASOPHIL # (test code=BA#) 0.01 x10 3/uL 0.0-0.2 NUCLEATED RBC # (test code=NRBC#) 0.03 x10 3/uL 0.0-0.1 MANUAL DIFF REQUIRED (test code=MDIFF) NO HGB [id number] 01:13:00 Test Item Value Reference Range Comments HEMOGLOBIN (test code=HGB) 6.1 g/dL 11.0-15.0 HEMATOCRIT (test code=HCT) 18.7 % 33.0-45.0 HGB [id number] 18:18:00 Test Item Value Reference Range Comments HEMOGLOBIN (test code=HGB) 7.6 g/dL 11.0-15.0 HEMATOCRIT (test code=HCT) 23.6 % 33.0-45.0 PROTHROMBIN [id number] 07:21:00 Test Item Value Reference Range Comments PROTHROMBIN TIME PATIENT 13.2 SECONDS 9.3-12.9 (test code=PTP) INTERNATIONAL NORMAL RATIO 1.2 0.8-1.2 TARGET INR BY (test code=INR) INDICATION Indication INR1. Prophylaxis of venous thrombosis 2.0 - 3.0 (orthopedic surgery), Prophylaxis of venous thrombosis (other than high-risk surgery), Treatment of Deep Vein Thrombosis/Pulmonary Embolism, Prevention of systemic embolism - Tissue heart valves, Acute Myocardial Infarction (to prevent systemic embolism), Valvular heart disease, Atrial Fibrillation, Bileaflet mechanical valve in aortic position.2. Mechanical prosthetic valves (high risk), 2.5 - 3.5 Presence of Lupus Anticoagulant or Antiphospholipid Antibodies, Prevention of systemic embolism - Acute Myocardial Infarction (to prevent recurrent infarct). THROMBOPLASTIN TIME [id number] 07:21:00 Test Item Value Reference Range Comments THROMBOPLASTIN TIME PARTIAL 25.7 Seconds 25.0-39.5 Therapeutic Range: (test code=PTT) 50.4 - 88.3 Seconds Effective 02/21/2019 CBC W/AUTO [id number] 06:57:00 Test Item Value Reference Range Comments WHITE BLOOD CELL (test code=WBC) 5.40 x10 3/uL 4.5-11.0 RED BLOOD CELL (test code=RBC) 2.16 x10 6/uL 3.54-5.02 HEMOGLOBIN (test code=HGB) 6.6 g/dL 11.0-15.0 HEMATOCRIT (test code=HCT) 19.7 % 33.0-45.0 MEAN CELL VOLUME (test code=MCV) 91.2 fL 81.0-99.0 MEAN CELL HGB (test code=MCH) 30.6 pg 27.0-33.0 MEAN CELL HGB CONCETRATION (test code=MCHC) 33.5 g/dL 33.0-37.0 RED CELL DISTRIBUTION WIDTH CV (test code=RDW) 18.2 % 11.5-14.5 RED CELL DISTRIBUTION WIDTH SD (test 55.9 fL 37.0-54.0 code=RDW-SD) PLATELET COUNT (test code=PLT) 160 x10 3/uL 150-400 MEAN PLATELET VOLUME (test code=MPV) 9.4 fL 7.0-9.0 NEUTROPHIL % (test code=NT%) 67.4 % 56.0-77.0 IMMATURE GRANULOCYTE % (test code=IG%) 0.6 % 0.0-2.0 LYMPHOCYTE % (test code=LY%) 21.3 % 14.0-32.0 MONOCYTE % (test code=MO%) 6.1 % 4.8-9.0 EOSINOPHIL % (test code=EO%) 4.4 % 0.3-3.7 BASOPHIL % (test code=BA%) 0.2 % 0.0-2.0 NUCLEATED RBC % (test code=NRBC%) 0.0 % 0-0 NEUTROPHIL # (test code=NT#) 3.64 x10 3/uL 2.0-7.6 IMMATURE GRANULOCYTE # (test code=IG#) 0.03 x10 3/uL 0.00-0.03 LYMPHOCYTE # (test code=LY#) 1.15 x10 3/uL 1.0-3.8 MONOCYTE # (test code=MO#) 0.33 x10 3/uL 0.1-0.8 EOSINOPHIL # (test code=EO#) 0.24 x10 3/uL 0.0-0.2 BASOPHIL # (test code=BA#) 0.01 x10 3/uL 0.0-0.2 NUCLEATED RBC # (test code=NRBC#) 0.00 x10 3/uL 0.0-0.1 MANUAL DIFF REQUIRED (test code=MDIFF) NO BASIC METABOLIC [id number] 06:16:00 Test Item Value Reference Range Comments SODIUM (test code=NA) 140 mEq/L 134-147 POTASSIUM (test code=K) 3.7 mEq/L 3.4-5.0 CHLORIDE (test code=CL) 111 mEq/L 100-108 CARBON DIOXIDE (test code=CO2) 24 mEq/L 21-33 ANION GAP (test code=GAP) 9 0-20 GLUCOSE (test code=GLU) 93 mg/dL 70-110 BLOOD UREA NITROGEN (test 8 mg/dL 7-18 code=BUN) GLOMERULAR FILTRATION RATE 173.4 95-105 Units of measure=ml/min/1.73 (test code=GFR) m2 CREATININE (test code=CREAT) 0.4 mg/dL 0.6-1.3 CALCIUM (test code=CA) 7.4 mg/dL 8.0-10.5 [id number] 06:16:00 Test Item Value Reference Range Comments PHOSPHOROUS (test code=PHOS) 2.9 MG/DL 2.5-4.9 [id number] 06:16:00 Test Item Value Reference Range Comments MAGNESIUM (test code=MAG) 2.30 mg/dL 1.8-2.4 CALCIUM [id number] 06:16:00 Test Item Value Reference Range Comments CALCIUM IONIZED (test code=FILI) 1.13 MMOL/L 1.12-1.32 BASIC METABOLIC [id number] 06:06:00 Test Item Value Reference Range Comments SODIUM (test code=NA) mEq/L 134-147 POTASSIUM (test code=K) mEq/L 3.4-5.0 CHLORIDE (test code=CL) mEq/L 100-108 CARBON DIOXIDE (test code=CO2) mEq/L 21-33 ANION GAP (test code=GAP) 0-20 GLUCOSE (test code=GLU) mg/dL 70-110 BLOOD UREA NITROGEN (test code=BUN) mg/dL 7-18 GLOMERULAR FILTRATION RATE (test code=GFR) 95-105 CREATININE (test code=CREAT) mg/dL 0.6-1.3 CALCIUM (test code=CA) mg/dL 8.0-10.5 [id number] 06:06:00 Test Item Value Reference Range Comments PHOSPHOROUS (test code=PHOS) MG/DL 2.5-4.9 [id number] 06:06:00 Test Item Value Reference Range Comments MAGNESIUM (test code=MAG) mg/dL 1.8-2.4 CALCIUM [id number] 06:06:00 Test Item Value Reference Range Comments CALCIUM IONIZED (test code=FILI) 1.13 MMOL/L 1.12-1.32 HGB [id number] 00:56:00 Test Item Value Reference Range Comments HEMOGLOBIN (test code=HGB) 7.7 g/dL 11.0-15.0 HEMATOCRIT (test code=HCT) 23.4 % 33.0-45.0 TOTAL IRON BINDING [id number] 00:54:00 Test Item Value Reference Range Comments SERUM IRON (test code=IRON) 19 mcg/dL 35-150 TOTAL IRON BINDING CAPACITY (test code=TIBC) 319 mcg/dL 260-445 UIBC (test code=UIBC) 300 mcg/dL IRON SATURATION (test code=FESAT) 6.0 % 14-34 VITAMIN [id number] 00:54:00 Test Item Value Reference Range Comments VITAMIN B12 (test code=VITB12) 196 pg/mL 193-986 [id number] 00:54:00 Test Item Value Reference Range Comments FERRITIN (test code=NUBIA) 7.3 ng/mL 11.0-306.8 HGB [id number] 18:24:00 Test Item Value Reference Range Comments HEMOGLOBIN (test code=HGB) 7.5 g/dL 11.0-15.0 HEMATOCRIT (test code=HCT) 23.3 % 33.0-45.0 - NM ACUTE GI BLOOD [id number] 16:25:00 FAX: Alli Ross MD [phone] [place]: St: [facility] FAX: Lance Giang ------ Name: SABINE GRACE [facility] : 1975 Age/S: 44/F [address] [place] [address] Unit #: [id number] Loc: G.M[address] [place] [address] Phys : Alli Campbell MD Acct: [id number] Dis Date: Status: ADM IN PHONE #: [phone] Exam Date: 12/11/2019 1439 FAX #: [phone] Reason: gi bleed. EXAMS: CPT CODE: [id number] NM ACUTE GI BLOOD LOSS 37606 Nuclear medicine acute GI blood loss study. INDICATION: GI bleed. Anemia. Abdominal pain. Melena. Nausea and vomiting. COMPARISON: 12/09/[address] abdomen and pelvis. TECHNIQUE: The patient was intravenously injected with 20 mCi of technetium 99m labeled red blood cells via the right neck Central line and serial AP abdomen images were obtained at1 minute intervals over 60 minutes. FINDINGS: No abnormal radiotracer accumulation or migration is identified on these images. Expected activity over the heart and faintly over the hepatic and splenic shadows is seen. Some linear photopenic defect is seen in theupper abdomen on some images. IMPRESSION: No scintigraphic evidence for active GI bleed. SL: YUE H at 7653 Reported and signed by: Noé Contreras M.D. CC: Alli Campbell MD; Lance Munguia MD Technologist: ALICE Anand (N)(CT); ... Trnscrd Date/Time/By: 12/11/2019 (8197) : By: GrupoSG9 Orig Print D/T: S: 12/11/2019 (2540) PAGE 1 Signed ReportHGB [id number] 12:40:00 Test Item Value Reference Range Comments HEMOGLOBIN (test code=HGB) 6.5 g/dL 11.0-15.0 HEMATOCRIT (test code=HCT) 19.9 % 33.0-45.0 BASIC METABOLIC [id number] 05:45:00 Test Item Value Reference Range Comments SODIUM (test code=NA) 139 mEq/L 134-147 POTASSIUM (test code=K) 3.6 mEq/L 3.4-5.0 CHLORIDE (test code=CL) 110 mEq/L 100-108 CARBON DIOXIDE (test code=CO2) 24 mEq/L 21-33 ANION GAP (test code=GAP) 9 0-20 GLUCOSE (test code=GLU) 96 mg/dL 70-110 BLOOD UREA NITROGEN (test 12 mg/dL 7-18 code=BUN) GLOMERULAR FILTRATION RATE 173.4 95-105 Units of measure=ml/min/1.73 (test code=GFR) m2 CREATININE (test code=CREAT) 0.4 mg/dL 0.6-1.3 CALCIUM (test code=CA) 7.2 mg/dL 8.0-10.5 [id number] 05:45:00 Test Item Value Reference Range Comments PHOSPHOROUS (test code=PHOS) 2.4 MG/DL 2.5-4.9 [id number] 05:45:00 Test Item Value Reference Range Comments MAGNESIUM (test code=MAG) 1.90 mg/dL 1.8-2.4 CALCIUM [id number] 05:45:00 Test Item Value Reference Range Comments CALCIUM IONIZED (test code=FILI) 1.16 MMOL/L 1.12-1.32 CBC W/AUTO [id number] 05:38:00 Test Item Value Reference Range Comments WHITE BLOOD CELL (test code=WBC) 7.79 x10 3/uL 4.5-11.0 RED BLOOD CELL (test code=RBC) 2.20 x10 6/uL 3.54-5.02 HEMOGLOBIN (test code=HGB) 7.2 g/dL 11.0-15.0 HEMATOCRIT (test code=HCT) 20.5 % 33.0-45.0 MEAN CELL VOLUME (test code=MCV) 93.2 fL 81.0-99.0 MEAN CELL HGB (test code=MCH) 32.7 pg 27.0-33.0 MEAN CELL HGB CONCETRATION (test code=MCHC) 35.1 g/dL 33.0-37.0 RED CELL DISTRIBUTION WIDTH CV (test code=RDW) 16.1 % 11.5-14.5 RED CELL DISTRIBUTION WIDTH SD (test 53.3 fL 37.0-54.0 code=RDW-SD) PLATELET COUNT (test code=PLT) 166 x10 3/uL 150-400 MEAN PLATELET VOLUME (test code=MPV) 9.8 fL 7.0-9.0 NEUTROPHIL % (test code=NT%) 67.9 % 56.0-77.0 IMMATURE GRANULOCYTE % (test code=IG%) 0.4 % 0.0-2.0 LYMPHOCYTE % (test code=LY%) 23.0 % 14.0-32.0 MONOCYTE % (test code=MO%) 4.6 % 4.8-9.0 EOSINOPHIL % (test code=EO%) 4.0 % 0.3-3.7 BASOPHIL % (test code=BA%) 0.1 % 0.0-2.0 NUCLEATED RBC % (test code=NRBC%) 0.0 % 0-0 NEUTROPHIL # (test code=NT#) 5.29 x10 3/uL 2.0-7.6 IMMATURE GRANULOCYTE # (test code=IG#) 0.03 x10 3/uL 0.00-0.03 LYMPHOCYTE # (test code=LY#) 1.79 x10 3/uL 1.0-3.8 MONOCYTE # (test code=MO#) 0.36 x10 3/uL 0.1-0.8 EOSINOPHIL # (test code=EO#) 0.31 x10 3/uL 0.0-0.2 BASOPHIL # (test code=BA#) 0.01 x10 3/uL 0.0-0.2 NUCLEATED RBC # (test code=NRBC#) 0.00 x10 3/uL 0.0-0.1 MANUAL DIFF REQUIRED (test code=MDIFF) NO BASIC METABOLIC [id number] 05:35:00 Test Item Value Reference Range Comments SODIUM (test code=NA) mEq/L 134-147 POTASSIUM (test code=K) mEq/L 3.4-5.0 CHLORIDE (test code=CL) mEq/L 100-108 CARBON DIOXIDE (test code=CO2) mEq/L 21-33 ANION GAP (test code=GAP) 0-20 GLUCOSE (test code=GLU) mg/dL 70-110 BLOOD UREA NITROGEN (test code=BUN) mg/dL 7-18 GLOMERULAR FILTRATION RATE (test code=GFR) 95-105 CREATININE (test code=CREAT) mg/dL 0.6-1.3 CALCIUM (test code=CA) mg/dL 8.0-10.5 [id number] 05:35:00 Test Item Value Reference Range Comments PHOSPHOROUS (test code=PHOS) MG/DL 2.5-4.9 [id number] 05:35:00 Test Item Value Reference Range Comments MAGNESIUM (test code=MAG) mg/dL 1.8-2.4 CALCIUM [id number] 05:35:00 Test Item Value Reference Range Comments CALCIUM IONIZED (test code=FILI) 1.16 MMOL/L 1.12-1.32 HGB [id number] 00:19:00 Test Item Value Reference Range Comments HEMOGLOBIN (test code=HGB) 7.2 g/dL 11.0-15.0 HEMATOCRIT (test code=HCT) 21.5 % 33.0-45.0 HGB [id number] 18:18:00 Test Item Value Reference Range Comments HEMOGLOBIN (test code=HGB) 7.4 g/dL 11.0-15.0 HEMATOCRIT (test code=HCT) 22.2 % 33.0-45.0 HGB [id number] 14:07:00 Test Item Value Reference Range Comments HEMOGLOBIN (test code=HGB) 7.8 g/dL 11.0-15.0 HEMATOCRIT (test code=HCT) 23.1 % 33.0-45.0 COMPREHENSIVE METABOLIC [id number] 07:21:00 Test Item Value Reference Range Comments SODIUM (test code=NA) 141 mEq/L 134-147 POTASSIUM (test code=K) 3.9 mEq/L 3.4-5.0 CHLORIDE (test code=CL) 113 mEq/L 100-108 CARBON DIOXIDE (test code=CO2) 23 mEq/L 21-33 ANION GAP (test code=GAP) 9 0-20 GLUCOSE (test code=GLU) 90 mg/dL 70-110 BLOOD UREA NITROGEN (test 20 mg/dL 7-18 code=BUN) GLOMERULAR FILTRATION RATE 173.4 95-105 Units of (test code=GFR) measure=ml/min/1.73 m2 CREATININE (test code=CREAT) 0.4 mg/dL 0.6-1.3 TOTAL PROTEIN (test code=PROT) 4.2 g/dL 6.4-8.2 ALBUMIN (test code=ALB) 2.00 g/dL 3.4-5.0 CALCIUM (test code=CA) 6.8 mg/dL 8.0-10.5 BILIRUBIN TOTAL (test 0.2 MG/DL <1.5 code=BILT) SGOT/AST (test code=AST) 15 IUnit/L 15-37 SGPT/ALT (test code=ALT) 21 IUnit/L 15-65 ALKALINE PHOSPHATASE TOTAL 61 IUnit/L 20-125 (test code=ALKP) [id number] 07:21:00 Test Item Value Reference Range Comments PHOSPHOROUS (test code=PHOS) 3.0 MG/DL 2.5-4.9 [id number] 07:21:00 Test Item Value Reference Range Comments MAGNESIUM (test code=MAG) 1.90 mg/dL 1.8-2.4 CALCIUM [id number] 07:21:00 Test Item Value Reference Range Comments CALCIUM IONIZED (test code=FILI) 1.11 MMOL/L 1.12-1.32 PROTHROMBIN [id number] 07:19:00 Test Item Value Reference Range Comments PROTHROMBIN TIME PATIENT 13.9 SECONDS 9.3-12.9 (test code=PTP) INTERNATIONAL NORMAL RATIO 1.3 0.8-1.2 TARGET INR BY (test code=INR) INDICATION Indication INR1. Prophylaxis of venous thrombosis 2.0 - 3.0 (orthopedic surgery), Prophylaxis of venous thrombosis (other than high-risk surgery), Treatment of Deep Vein Thrombosis/Pulmonary Embolism, Prevention of systemic embolism - Tissue heart valves, Acute Myocardial Infarction (to prevent systemic embolism), Valvular heart disease, Atrial Fibrillation, Bileaflet mechanical valve in aortic position.2. Mechanical prosthetic valves (high risk), 2.5 - 3.5 Presence of Lupus Anticoagulant or Antiphospholipid Antibodies, Prevention of systemic embolism - Acute Myocardial Infarction (to prevent recurrent infarct). [id number] 07:14:00 Test Item Value Reference Range Comments FERRITIN (test code=NUBIA) 6.8 ng/mL 11.0-306.8 COMPREHENSIVE METABOLIC [id number] 07:14:00 Test Item Value Reference Range Comments SODIUM (test code=NA) 141 mEq/L 134-147 POTASSIUM (test code=K) 3.9 mEq/L 3.4-5.0 CHLORIDE (test code=CL) 113 mEq/L 100-108 CARBON DIOXIDE (test code=CO2) 23 mEq/L 21-33 ANION GAP (test code=GAP) 9 0-20 GLUCOSE (test code=GLU) 90 mg/dL 70-110 BLOOD UREA NITROGEN (test code=BUN) 20 mg/dL 7-18 GLOMERULAR FILTRATION RATE (test code=GFR) 95-105 CREATININE (test code=CREAT) mg/dL 0.6-1.3 TOTAL PROTEIN (test code=PROT) g/dL 6.4-8.2 ALBUMIN (test code=ALB) g/dL 3.4-5.0 CALCIUM (test code=CA) 6.8 mg/dL 8.0-10.5 BILIRUBIN TOTAL (test code=BILT) MG/DL <1.5 SGOT/AST (test code=AST) IUnit/L 15-37 SGPT/ALT (test code=ALT) IUnit/L 15-65 ALKALINE PHOSPHATASE TOTAL (test code=ALKP) IUnit/L 20-125 [id number] 07:14:00 Test Item Value Reference Range Comments PHOSPHOROUS (test code=PHOS) MG/DL 2.5-4.9 [id number] 07:14:00 Test Item Value Reference Range Comments MAGNESIUM (test code=MAG) mg/dL 1.8-2.4 CALCIUM [id number] 07:14:00 Test Item Value Reference Range Comments CALCIUM IONIZED (test code=FILI) 1.11 MMOL/L 1.12-1.32 COMPREHENSIVE METABOLIC [id number] 07:04:00 Test Item Value Reference Range Comments SODIUM (test code=NA) mEq/L 134-147 POTASSIUM (test code=K) mEq/L 3.4-5.0 CHLORIDE (test code=CL) mEq/L 100-108 CARBON DIOXIDE (test code=CO2) mEq/L 21-33 ANION GAP (test code=GAP) 0-20 GLUCOSE (test code=GLU) mg/dL 70-110 BLOOD UREA NITROGEN (test code=BUN) mg/dL 7-18 GLOMERULAR FILTRATION RATE (test code=GFR) 95-105 CREATININE (test code=CREAT) mg/dL 0.6-1.3 TOTAL PROTEIN (test code=PROT) g/dL 6.4-8.2 ALBUMIN (test code=ALB) g/dL 3.4-5.0 CALCIUM (test code=CA) mg/dL 8.0-10.5 BILIRUBIN TOTAL (test code=BILT) MG/DL <1.5 SGOT/AST (test code=AST) IUnit/L 15-37 SGPT/ALT (test code=ALT) IUnit/L 15-65 ALKALINE PHOSPHATASE TOTAL (test code=ALKP) IUnit/L 20-125 [id number] 07:04:00 Test Item Value Reference Range Comments PHOSPHOROUS (test code=PHOS) MG/DL 2.5-4.9 [id number] 07:04:00 Test Item Value Reference Range Comments MAGNESIUM (test code=MAG) mg/dL 1.8-2.4 CALCIUM [id number] 07:04:00 Test Item Value Reference Range Comments CALCIUM IONIZED (test code=FILI) 1.11 MMOL/L 1.12-1.32 CBC W/AUTO [id number] 07:00:00 Test Item Value Reference Range Comments WHITE BLOOD CELL (test code=WBC) 7.36 x10 3/uL 4.5-11.0 RED BLOOD CELL (test code=RBC) 2.66 x10 6/uL 3.54-5.02 HEMOGLOBIN (test code=HGB) 8.4 g/dL 11.0-15.0 HEMATOCRIT (test code=HCT) 24.5 % 33.0-45.0 MEAN CELL VOLUME (test code=MCV) 92.1 fL 81.0-99.0 MEAN CELL HGB (test code=MCH) 31.6 pg 27.0-33.0 MEAN CELL HGB CONCETRATION (test code=MCHC) 34.3 g/dL 33.0-37.0 RED CELL DISTRIBUTION WIDTH CV (test code=RDW) 15.9 % 11.5-14.5 RED CELL DISTRIBUTION WIDTH SD (test 53.3 fL 37.0-54.0 code=RDW-SD) PLATELET COUNT (test code=PLT) 169 x10 3/uL 150-400 MEAN PLATELET VOLUME (test code=MPV) 9.4 fL 7.0-9.0 NEUTROPHIL % (test code=NT%) 69.1 % 56.0-77.0 IMMATURE GRANULOCYTE % (test code=IG%) 0.3 % 0.0-2.0 LYMPHOCYTE % (test code=LY%) 23.5 % 14.0-32.0 MONOCYTE % (test code=MO%) 6.0 % 4.8-9.0 EOSINOPHIL % (test code=EO%) 1.0 % 0.3-3.7 BASOPHIL % (test code=BA%) 0.1 % 0.0-2.0 NUCLEATED RBC % (test code=NRBC%) 0.0 % 0-0 NEUTROPHIL # (test code=NT#) 5.09 x10 3/uL 2.0-7.6 IMMATURE GRANULOCYTE # (test code=IG#) 0.02 x10 3/uL 0.00-0.03 LYMPHOCYTE # (test code=LY#) 1.73 x10 3/uL 1.0-3.8 MONOCYTE # (test code=MO#) 0.44 x10 3/uL 0.1-0.8 EOSINOPHIL # (test code=EO#) 0.07 x10 3/uL 0.0-0.2 BASOPHIL # (test code=BA#) 0.01 x10 3/uL 0.0-0.2 NUCLEATED RBC # (test code=NRBC#) 0.00 x10 3/uL 0.0-0.1 MANUAL DIFF REQUIRED (test code=MDIFF) NO HGB [id number] 21:21:00 Test Item Value Reference Range Comments HEMOGLOBIN (test code=HGB) 6.6 g/dL 11.0-15.0 HEMATOCRIT (test code=HCT) 19.8 % 33.0-45.0 - XR CHEST 1 [id number] 20:18:00 FAX: Amari Wilson JR, MD [place]: St: ADM FAX: Lance Giang [phone] --- Name: SABINE GRACE [facility] [place] : 1975 Age/S: 44/F [address] [place] [address] Unit #: [id number] Loc: [address] [address] Phys: Amari Mendiola JR, MD Acct: [id number] Dis Date: Status: ADM IN PHONE #: [phone] Exam Date: 12/09/20191952 FAX #: [phone] Reason: POST CENTRAL LINE PLACEMENT RIGHT INTERNAL JUGU EXAMS: CPT CODE: [id number] XR CHEST 1 V [id number] Chest, single view dated 12/09/2019. HISTORY: GI bleed. Post Central line placement. Comparison is made to a prior study dated 12/09/2019 at 10:04 AM. Since the prior study there has been interval placement of a right jugular central venous catheter whose tip projects in the superior vena cava. A pneumothorax is not identified. The heart is normal in size. The cardiomediastinal shadow is stable. The lungs appear clear. The pulmonary vasculature is normal in caliber. No acute pleural space abnormalities are detected. IMPRESSION: 1. Right jugular central venous catheter placement. No radiographic evidenceof acute cardiopulmonary disease. SL: 131 at 2018 Reported and signed by: Alphonse Coronado M.D. CC: Amari Mendiola JR, MD; Lance Munguia MD Technologist : Adelina Taylor RT(R) Trnscrd Date/Time/By: 12/09/2019 (2017) : By: Yosvany Orig Print D/T: S: 12/09/2019 (2020 ) PAGE 1 Signed ReportHGB [id number] 11:51:00 Test Item Value Reference Range Comments HEMOGLOBIN (test code=HGB) 6.1 g/dL 11.0-15.0 HEMATOCRIT (test code=HCT) 19.1 % 33.0-45.0 PROTHROMBIN [id number] 10:31:00 Test Item Value Reference Range Comments PROTHROMBIN TIME PATIENT 13.7 SECONDS 9.3-12.9 (test code=PTP) INTERNATIONAL NORMAL RATIO 1.3 0.8-1.2 TARGET INR BY (test code=INR) INDICATION Indication INR1. Prophylaxis of venous thrombosis 2.0 - 3.0 (orthopedic surgery), Prophylaxis of venous thrombosis (other than high-risk surgery), Treatment of Deep Vein Thrombosis/Pulmonary Embolism, Prevention of systemic embolism - Tissue heart valves, Acute Myocardial Infarction (to prevent systemic embolism), Valvular heart disease, Atrial Fibrillation, Bileaflet mechanical valve in aortic position.2. Mechanical prosthetic valves (high risk), 2.5 - 3.5 Presence of Lupus Anticoagulant or Antiphospholipid Antibodies, Prevention of systemic embolism - Acute Myocardial Infarction (to prevent recurrent infarct). THROMBOPLASTIN TIME [id number] 10:31:00 Test Item Value Reference Range Comments THROMBOPLASTIN TIME PARTIAL 25.8 Seconds 25.0-39.5 Therapeutic Range: (test code=PTT) 50.4 - 88.3 Seconds Effective 02/21/2019 BASIC METABOLIC [id number] 10:30:00 Test Item Value Reference Range Comments SODIUM (test code=NA) mEq/L 134-147 POTASSIUM (test code=K) mEq/L 3.4-5.0 CHLORIDE (test code=CL) mEq/L 100-108 CARBON DIOXIDE (test code=CO2) mEq/L 21-33 ANION GAP (test code=GAP) 0-20 GLUCOSE (test code=GLU) mg/dL 70-110 BLOOD UREA NITROGEN (test code=BUN) mg/dL 7-18 GLOMERULAR FILTRATION RATE (test code=GFR) 95-105 CREATININE (test code=CREAT) mg/dL 0.6-1.3 CALCIUM (test code=CA) mg/dL 8.0-10.5 HEPATIC FUNCTION [id number] 10:30:00 Test Item Value Reference Range Comments TOTAL PROTEIN (test code=PROT) g/dL 6.4-8.2 ALBUMIN (test code=ALB) g/dL 3.4-5.0 BILIRUBIN TOTAL (test code=BILT) MG/DL <1.5 BILIRUBIN DIRECT (test code=BILD) MG/DL 0.0-0.30 SGOT/AST (test code=AST) IUnit/L 15-37 SGPT/ALT (test code=ALT) IUnit/L 15-65 ALKALINE PHOSPHATASE TOTAL (test code=ALKP) IUnit/L 20-125 [id number] 10:30:00 Test Item Value Reference Range Comments LIPASE (test code=LIP) IUnit/L 73-393 HCG SERUM [id number] 10:30:00 Test Item Value Reference Range Comments HCG SERUM QUAL (test code=HCGQL) SERUM NEGATIVE NEGATIVE [id number] 10:30:00 Test Item Value Reference Range Comments TROPONIN-I (test 0.025 ng/mL 0.000-0.045 Negative: <=0.045 code=TROPI) Positive: >=0.046 Correlation with serial results, other cardiac markers andclinical findings is necessary to determine the clinicalsignificance of this result. Results using different methodologies should not be comparedto one another as quantitative results may vary by method. BASIC METABOLIC [id number] 10:30:00 Test Item Value Reference Range Comments SODIUM (test code=NA) 138 mEq/L 134-147 POTASSIUM (test code=K) 3.5 mEq/L 3.4-5.0 CHLORIDE (test code=CL) 107 mEq/L 100-108 CARBON DIOXIDE (test code=CO2) 24 mEq/L 21-33 ANION GAP (test code=GAP) 11 0-20 GLUCOSE (test code=GLU) 123 mg/dL 70-110 BLOOD UREA NITROGEN (test 24 mg/dL 7-18 code=BUN) GLOMERULAR FILTRATION RATE 108.6 95-105 Units of measure=ml/min/1.73 (test code=GFR) m2 CREATININE (test code=CREAT) 0.6 mg/dL 0.6-1.3 CALCIUM (test code=CA) 7.7 mg/dL 8.0-10.5 HEPATIC FUNCTION [id number] 10:30:00 Test Item Value Reference Range Comments TOTAL PROTEIN (test code=PROT) 5.7 g/dL 6.4-8.2 ALBUMIN (test code=ALB) 2.60 g/dL 3.4-5.0 BILIRUBIN TOTAL (test code=BILT) 0.2 MG/DL <1.5 BILIRUBIN DIRECT (test code=BILD) < 0.10 MG/DL 0.0-0.30 BILIRUBIN INDIRECT (test code=BILIND) 0.10 MG/DL SGOT/AST (test code=AST) 17 IUnit/L 15-37 SGPT/ALT (test code=ALT) 25 IUnit/L 15-65 ALKALINE PHOSPHATASE TOTAL (test code=ALKP) 89 IUnit/L 20-125 [id number] 10:30:00 Test Item Value Reference Range Comments LIPASE (test code=LIP) 49 IUnit/L 73-393 HCG SERUM [id number] 10:30:00 Test Item Value Reference Range Comments HCG SERUM QUAL (test code=HCGQL) SERUM NEGATIVE NEGATIVE [id number] 10:30:00 Test Item Value Reference Range Comments TROPONIN-I (test 0.025 ng/mL 0.000-0.045 Negative: <=0.045 code=TROPI) Positive: >=0.046 Correlation with serial results, other cardiac markers andclinical findings is necessary to determine the clinicalsignificance of this result. Results using different methodologies should not be comparedto one another as quantitative results may vary by method. BASIC METABOLIC [id number] 10:18:00 Test Item Value Reference Range Comments SODIUM (test code=NA) mEq/L 134-147 POTASSIUM (test code=K) mEq/L 3.4-5.0 CHLORIDE (test code=CL) mEq/L 100-108 CARBON DIOXIDE (test code=CO2) mEq/L 21-33 ANION GAP (test code=GAP) 0-20 GLUCOSE (test code=GLU) mg/dL 70-110 BLOOD UREA NITROGEN (test code=BUN) mg/dL 7-18 GLOMERULAR FILTRATION RATE (test code=GFR) 95-105 CREATININE (test code=CREAT) mg/dL 0.6-1.3 CALCIUM (test code=CA) mg/dL 8.0-10.5 HEPATIC FUNCTION [id number] 10:18:00 Test Item Value Reference Range Comments TOTAL PROTEIN (test code=PROT) g/dL 6.4-8.2 ALBUMIN (test code=ALB) g/dL 3.4-5.0 BILIRUBIN TOTAL (test code=BILT) MG/DL <1.5 BILIRUBIN DIRECT (test code=BILD) MG/DL 0.0-0.30 SGOT/AST (test code=AST) IUnit/L 15-37 SGPT/ALT (test code=ALT) IUnit/L 15-65 ALKALINE PHOSPHATASE TOTAL (test code=ALKP) IUnit/L 20-125 [id number] 10:18:00 Test Item Value Reference Range Comments LIPASE (test code=LIP) IUnit/L 73-393 HCG SERUM [id number] 10:18:00 Test Item Value Reference Range Comments HCG SERUM QUAL (test code=HCGQL) SERUM NEGATIVE NEGATIVE [id number] 10:18:00 Test Item Value Reference Range Comments TROPONIN-I (test code=TROPI) ng/mL 0.000-0.045 CBC W/AUTO [id number] 10:12:00 Test Item Value Reference Range Comments WHITE BLOOD CELL (test code=WBC) 12.81 x10 3/uL 4.5-11.0 RED BLOOD CELL (test code=RBC) 2.42 x10 6/uL 3.54-5.02 HEMOGLOBIN (test code=HGB) 7.3 g/dL 11.0-15.0 HEMATOCRIT (test code=HCT) 23.3 % 33.0-45.0 MEAN CELL VOLUME (test code=MCV) 96.3 fL 81.0-99.0 MEAN CELL HGB (test code=MCH) 30.2 pg 27.0-33.0 MEAN CELL HGB CONCETRATION (test code=MCHC) 31.3 g/dL 33.0-37.0 RED CELL DISTRIBUTION WIDTH CV (test 14.6 % 11.5-14.5 code=RDW) RED CELL DISTRIBUTION WIDTH SD (test 50.3 fL 37.0-54.0 code=RDW-SD) PLATELET COUNT (test code=PLT) 286 x10 3/uL 150-400 MEAN PLATELET VOLUME (test code=MPV) 9.9 fL 7.0-9.0 NEUTROPHIL % (test code=NT%) 76.0 % 56.0-77.0 IMMATURE GRANULOCYTE % (test code=IG%) 0.6 % 0.0-2.0 LYMPHOCYTE % (test code=LY%) 18.3 % 14.0-32.0 MONOCYTE % (test code=MO%) 4.0 % 4.8-9.0 EOSINOPHIL % (test code=EO%) 0.9 % 0.3-3.7 BASOPHIL % (test code=BA%) 0.2 % 0.0-2.0 NUCLEATED RBC % (test code=NRBC%) 0.0 % 0-0 NEUTROPHIL # (test code=NT#) 9.73 x10 3/uL 2.0-7.6 IMMATURE GRANULOCYTE # (test code=IG#) 0.08 x10 3/uL 0.00-0.03 LYMPHOCYTE # (test code=LY#) 2.34 x10 3/uL 1.0-3.8 MONOCYTE # (test code=MO#) 0.51 x10 3/uL 0.1-0.8 EOSINOPHIL # (test code=EO#) 0.12 x10 3/uL 0.0-0.2 BASOPHIL # (test code=BA#) 0.03 x10 3/uL 0.0-0.2 NUCLEATED RBC # (test code=NRBC#) 0.00 x10 3/uL 0.0-0.1 MANUAL DIFF REQUIRED (test code=MDIFF) NO - XR CHEST 1 [id number] 10:09:00 FAX: Elva Orozco DO [phone] [place]: [address]: PRE Name: SABINE GRACE [facility] Marbella Morales : 1975 Age/S: 44/F [address] [place] [address] Unit#: [id number] Loc: [id number] [address] Phys: Elva Morales DO Acct: [id number] Dis Date: Status: PRE ER PHONE #: [phone] Exam Date: 12/09/2019 1006 FAX #: [phone] Reason: Abdominal Pain EXAMS: CPT CODE: [id number] XR CHEST 1 V [id number] Patient: SABINE GRACE. : 1975; Age: 44 years; Gender: Female. MR: [id number]. Ordering physician: Elva Morales DO. PORTABLE CHEST AP: HISTORY: GI bleeding and abdominal pain. COMPARISON:None. FINDINGS: Portable frontal view of the chest was obtained. The lungs areclear bilaterally. The cardiomediastinal silhouette and pulmonary vasculature are unremarkable. The partially visualized upper abdomen is unremarkable. IMPRESSION: No acute disease in the chest. SL: [id number] at 1009 Reported and signed by: Jerald Garner M.D. CC: Elva Morales DO Technologist: RT Santhosh(Leora) Trnscrd Date/Time/By: 12/09/2019 (1009) : By: [email or web address] Orig PrintD/T: S: 12/09/2019 (1012) PAGE 1 Signed Report
[2020-01-05 22:19] VITALS: TEMP 98.4
[2020-01-05 22:22] VITALS: O2SAT 98
[2020-01-05 22:23] VITALS: BP 113/65
== END 2020-01-05 21:30 | disposition home or self-care (01) ==
LOC: ER 18:00
DX: R51 Headache (principal); Z88.2 Allergy status to sulfonamides; Z88.3 Allergy status to other anti-infective agents; Z88.5 Allergy status to narcotic agent; Z88.8 Allergy status to other drugs, medicaments and biological substances
CPT/HCPCS: 96361; 85025; 36415; 84145; 87804 ×2; 70450; 71045; 96375; 96374; 99284; J2550 ×2; J1200; J1170 ×2; J7030 ×2; 87040

== ENCOUNTER 2021-04-05 19:30 | Emergency (ER) | payer OTHER ==
--- OUTSIDE RECORDS SUMMARY | 2021-04-05 19:39 | XMS REPORT | Continuity of Care Document ---
:1975 Author Organization [facility] t Address [address] [place] [address] Care Team Providers Name Role Phone Tamir Payan MD Primary Care Physician Tamir Payan MD Attending Clinician Toni VELOZ Attending Clinician Unavailable Singer MERRITT Attending Clinician Doctor Unassigned, Name Attending Clinician Unavailable Lesly Payan Attending Clinician Po, [facility] Attending Clinician Unavailable Payers Payer Name Policy Type Policy Effective Date Expiration Date Sour ce Number AETNA MEDICAREAETNA [id number] 2019 [place] MED[place] H[place]/PPO 0 00:00:00 Methodis t [id number] Problems Condition Condition Condition Status Onset Resolution Last Treating Co mments Source Name Details Category Date Date Treatment Clinician Date Environmen Environmen Disease Active 2019- H addis schafer hanh 5-30 Methodi allergies allergies 00:00: st 00 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- Gabriela ston use of use of 2-02 [facility] drug drug 00:00: st 00 Costochond Costochond Disease Active 2017-11 [place] ritis ritis 1-19 Methodi 00:00: st 00 Intractabl Intractabl Disease Active 2017-11 [place] e vomiting e vomiting 1-19 Me thodi with with 00:00: st nausea nausea 00 Insulin Insulin Disease Active 2017-11 [place] resistance resistance 0-06 Me thodi 00:00: st 00 Chest Chest Disease Active [place] pain, pain, 8- Methodi atypical atypical 00:00: st 00 Nausea Nausea Disease Active [place] 8-09 Methodi 00:00: st 00 Chronic Chronic Disease Active [place] diarrhea diarrhea 8 Method i 00:00: st 00 Raynaud's Raynaud's Disease Active Gabriela ston disease disease 602 [facility] 00:00: st 00 Urticaria Urticaria Disease Active [facility] ston 1-17 Methodi 00:00: st 00 Fluid Fluid Disease Active [place] retention retention 7-08 Meth [facility] 00:00: st 00 Status Status Disease Active [place] post total post total 6- Me odi gastrectom gastrectom 00:00: st y and y and 00 Maggi-en-Y Maggi-en-Y esophagoje esophagoje junal junal anastomosi anastomosi s s History of History of Disease Active [place] urinary urinary 6-08 [facility] retention retention 00:00: st 00 Dizziness Dizziness Disease Active Gabriela ston 6-08 [facility] 00:00: st 00 Generalize Generalize Disease Active [place] d d 3-14 [facility] abdominal abdominal 00:00: st pain pain 00 Epistaxis Epistaxis Disease Active [facility] ston 3-14 Methodi 00:00: st 00 Vitamin D Vitamin D Disease Active Gab[facility]ela ston deficiency deficiency 1-06 Me thodi 00:00: st 00 Insomnia Insomnia Disease Active 2015-11 [place] 1 Methodi 00:00: st 00 Iron Iron Disease Active 2015-11 [place] [facility] S/P PICC S/P PICC Disease Active 2015-11 [place] central central 108 Methodi line line 00:00: st placement placement 00 B12 B12 Disease Active 2015-11 [place] deficiency deficiency 11-15 Me thodi 00:00: st 00 Malnutriti Malnutriti Disease Active 2015-11 Overview : [place] on on 11-15 Formattin Methodi 00:00: g of this note might be different from the original. on TPN via PICC line initiated September 2016 Nutritiona Nutritiona Disease Active 2015-11 Overview : [place] l disorder l disorder 11-15 Formattin Methodi 00:00: g of this note might be different from the original. Overview: Overview: on TPN via PICC line initiated September 2016 Adjustment Adjustment Disease Active 2015-11 [place] disorder disorder 0-13 Method i with mixed with mixed 00:00: st anxiety anxiety 00 and and depressed depressed mood mood ADD ADD Disease Active 2015-11 [place] (attention (attention 0-13 Me thodi deficit deficit 00:00: st disorder) disorder) 00 Bradycardi Bradycardi Disease Active 2015-11 [place] a a 0-13 Methodi 00:00: st 00 Bronchitis Bronchitis Disease Active [place] , acute , acute 718 Methodi 00:00: st 00 Scleroderm Scleroderm Disease Active [place] a a 7-18 Methodi 00:00: st 00 Sinusitis Sinusitis Disease Active Gabriela ston 7-18 Methodi 00:00: st 00 Chronic Chronic Disease Active [place] pain pain 7-18 Methodi 00:00: st 00 Contact Contact Disease Active [place] dermatitis dermatitis 7-18 Me thodi 00:00: st 00 EASY Condition Active 2015-05-09 Mem oria BRUISABILI 05-09 11:37:00 l TY EASY 00:00: [place] BRUISABILI 00 TY Active 5 Condition 05/09/2015 Medical Group PHARYNGITI Condition Active 2015-05-09 Memoria S, ACUTE 05-09 11:37:00 l 00:00: [place] PHARYNGITI 00 S, ACUTE Active 05/09/2015 [facility] CHRONIC Condition Active 2015-05-09 Me moria PAIN - 11:37:00 l SYNDROME CHRONIC 00:00: Whit nn PAIN 00 SYNDROME Active 04/12/2015 Condition [facility] MIGRAINE Condition Active 2015-05-09 M emoria HEADACHE 6- 11:37:00 l MIGRAINE 00:00: Bernardo n HEADACHE 00 Active 04/12/2015 [facility] ADJUSTMENT Condition Active 2015-05-09 [facility] DISORDER 5-15 11:37:00 l WITH 00:00: [place] DEPRESSED ADJUSTMENT 00 MOOD DISORDER WITH DEPRESSED MOOD Active 03/22/2015 [facility] MYALGIA Condition Active 2015-05-09 [facility] 4-10 11:37:00 l MYALGIA 00:00: Ezra 00 Active 02/15/2015 [facility] ASCITES Condition Active 2015-05-09 [facility] 3-05 11:37:00 l ASCITES 00:00: [place] 00 Active 01/10/2015 [facility] INSOMNIA Condition Active 2015-05-09 M emoria 3-05 11:37:00 l INSOMNIA 00:00: Bernardo n 00 Active 01/10/2015 [facility] DYSFUNCTIO Condition Active 2015-05-09 [facility] NAL 2-02 11:37:00 l UTERINE 00:00: [place] BLEEDING DYSFUNCTIO 00 NAL UTERINE BLEEDING Active 12/10/2014 [facility] SHORTNESS Condition Active 2015-05-09 Memoria OF BREATH 2-02 11:37:00 l 00:00: [place]ra SHORTNESS 00 OF BREATH Active 12/10/2014 [facility] VENTRAL Condition Active 2013-112015-05-09 [facility] HERNIA, 12-03 11:37:00 l INCISIONAL VENTRAL 00:00: Her pantoja HERNIA, 00 INCISIONAL Active 10/03/2014 [facility] TRANSAMINA Condition Active 2015-05-09 Memoria SES, 07-17 11:37:00 l SERUM, 00:00: [place] ELEVATED TRANSAMINA 00 SES, SERUM, ELEVATED Active 07/17/2014 [facility] CHEST Condition Active 2015-05-09 Mem oria PAIN, 07-17 11:37:00 l ATYPICAL CHEST 00:00: [place] PAIN, 00 ATYPICAL Active 07/17/2014 [facility] SHOULDER Condition Active 2015-05-09 M emoria PAIN, 07-17 11:37:00 l RIGHT SHOULDER 00:00: Bernardo n PAIN, 00 RIGHT Active 07/17/2014 [facility] HYPERTENSI Condition Active 2015-05-09 Memoria ON, BENIGN 07-17 11:37:00 l 00:00: [place] HYPERTENSI 00 ON, BENIGN Active 07/17/2014 [facility] SCLERODERM Condition Active 2015-05-09 Memoria A 03-24 11:37:00 l 00:00: [place] SCLERODERM 00 A Active 03/24/2014 [facility] ESOPHAGEAL Condition Active 2015-05-09 Memoria MOTILITY 03-24 11:37:00 l DISORDER 00:00: Ezra ESOPHAGEAL 00 MOTILITY DISORDER Active 03/24/2014 [facility] ANEMIA, Condition Active 2015-05-09 Me moria IRON - 11:37:00 l DEFICIENCY ANEMIA, 00:00: Her pantoja IRON 00 DEFICIENCY Active 03/24/2014 [facility] INCOMPLETE Condition Active 2015-05-09 Memoria BLADDER 03-24 11:37:00 l EMPTYING 00:00: Ezra INCOMPLETE 00 BLADDER EMPTYING Active 03/24/2014 [facility] NEPHROLITH Condition Active 2015-05-09 Memoria IASIS 03-24 11:37:00 l 00:00: [place] NEPHROLITH 00 IASIS Active 03/24/2014 [facility] COUGH Condition Active 2015-05-09 Mem oria 03-24 11:37:00 l COUGH 00:00: [place] 00 Active 03/24/2014 [facility] SEIZURE Condition Active 2015-05-09 Me moria DISORDER - 11:37:00 l SEIZURE 00:00: Ezra DISORDER 00 Active 03/24/2014 [facility] Other long Diagnosis Active 2021-02-27 Memoria term 02:46:16 l (current) 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 therapy Active Diagnosis 02/27/2021 [facility] Colitis Diagnosis Active 2021-02-27 Me moria 02:46:16 l Colitis Ezra Active Diagnosis 02/27/2021 [facility] Systemic Problem Active 2021-02-27 Mem oria involvemen 02:46:16 l t of Systemic Bernardo n connective involvemen tissue, t of unspecifie connective d tissue, unspecifie d Active Problem 02/27/2021 [facility] Progressiv Diagnosis Active 2021-02-27 Memoria e systemic 02:46:16 l sclerosis Ezra Progressiv e systemic sclerosis Active Diagnosis 02/27/2021 [facility] Inflammato Problem Active 2021-02-27 M emoria ry 02:46:16 l polyarthri Bernardo n tis Inflammato ry polyarthri tis Active Problem 02/27/2021 [facility] Rheumatoid Diagnosis Active 2021-02-27 Memoria arthritis 02:46:16 l without [place] rheumatoid Rheumatoid factor, arthritis multiple without sites rheumatoid factor, multiple sites Active Diagnosis 02/27/2021 [facility] Hypokalemi Diagnosis Active 2020-08-04 Memoria a 02:45:32 l Ezra Hypokalemi a Active Diagnosis 08/04/2020 [facility] Adverse Diagnosis Active 2020-08-04 Me moria effect of 02:45:32 l unspecifie Adverse Her pantoja d drugs, effect of medicament unspecifie s and d drugs, biological medicament substances s and , initial biological encounter substances , initial encounter Active Diagnosis 08/04/2020 [facility] Xerostomia Diagnosis Active 2020-07-24 Memoria 02:45:33 l [place] Xerostomia Active Diagnosis 07/24/2020 [facility] Myalgia Diagnosis Active 2019-09-20 Me moria 03:46:06 l Myalgia Ezra Active Diagnosis 09/20/2019 [facility] Nausea Diagnosis Active 2020-07-24 Mem oria 02:45:33 l Nausea [place] Active Diagnosis 07/24/2020 [facility] Myalgia Diagnosis Active 2021-02-27 Me moria 02:46:16 l Myalgia Ezra Active Diagnosis 02/27/2021 [facility] Anemia Diagnosis Active 2021-02-27 Mem oria 02:46:16 l Anemia [place] Active Diagnosis 02/27/2021 [facility] Transamini Diagnosis Active 2021-02-27 Memoria tis 02:46:16 l Ezra Transamini tis Active Diagnosis 02/27/2021 [facility] History of Past Illness Condition Condition Condition Status Onset Resolution Last Treating Co mments Source Name Details Category Date Date Treatment Clinician Date SCREENING, Condition Inactiv 2015-05-09 2015-05-09 Memoria DIABETES e 03-24 11:37:00 11:37:00 l MELLITUS 00:00: Ezra SCREENING, 00 DIABETES MELLITUS Inactive 03/24/2014 [facility] SCREENING Condition Inactiv 2015-05-09 2015-05-09 Memoria FOR LIPOID e 03-24 11:37:00 11:37:00 l DISORDERS 00:00: Ezra SCREENING 00 FOR LIPOID DISORDERS Inactive 03/24/2014 [facility] FATIGUE Condition Inactiv 2015-05-09 2015-05-09 Memoria e 03-24 11:37:00 11:37:00 l FATIGUE 00:00: Ezra 00 Inactive 03/24/2014 [facility] Allergies, Adverse Reactions, Alerts Allergy Allergy Status Severity Reaction(s) Onset Inactive Treating Comm ents Source Name Type Date Date Clinician Azathiop Azathiop Active headache, Mem oria rine rine diarrhea 3-30 l 00:00: [place] 00 Ambien Ambien Active Info Not Memoria Available 3-30 l 00:00: Ezra 00 Zofran Zofran Active Info Not Memoria Available 3-30 l 00:00: [place] 00 Nexium Nexium Active Info Not Memoria Available 3-30 l 00:00: Ezra 00 Morphine Morphine Active Info Not Pedro cl Sulfate Sulfate Available 3-30 l 00:00: Ezra 00 Levaquin Levaquin Active Info Not Pedro cl Available 3-30 l 00:00: Ezra 00 Demerol Demerol Active Info Not 2021-0 Memori a Available 3-30 l 00:00: Ezra 00 Codeine Codeine Active Info Not Memori a Sulfate Sulfate Available 3-30 l 00:00: [place] Clindamy Clindamy Active Info Not Pedro cl gaurav HCl gaurav HCl Available 3-30 l 00:00: [place] 00 zolpidem DA Active U 2020-0 [facility] 2-01 Clear 00:00: [place] 00 [facility] Cephalos DA Active U 2020-0 [facility] porins 2-01 Clear 00:00: Morales 00 [facility] morphine DA Active U 2020-0 [facility] 2-01 Clear 00:00: Morales 00 [facility] codeine DA Active U 2020-0 [facility] 2-01 Clear 00:00: Morales 00 [facility] fentanyl DA Active U 2020-0 [facility] 2-01 Clear 00:00: Morales 00 [facility] meperidi DA Active U 2020-0 [facility] ne 2-01 Clear 00:00: Morales 00 [facility] ondanset DA Active U 2020-0 [facility] tejas 2-01 Clear 00:00: Morales 00 [facility] esomepra DA Active U 2020-0 [facility] zole 2-01 Clear 00:00: Mor[place] 00 [facility] clindamy DA Active U 2020-0 [facility] gaurav 2-01 Clear 00:00: Morales 00 [facility] Baclofen Propensi Active Other (See seizures [place] ty to Comments) 4-16 Methodi adverse 00:00: st reaction 00 s to drug Ondanset Propensi Active Other (See bradycard [place] tejas Hcl ty to Comments) 1-22 ia Method i (Pf) adverse 00:00: st reaction 00 s to drug Clindamy Propensi Active Anaphylaxis 2017-11 Rash, [place] gaurav ty to 0-05 vomiting, Methodi adverse 00:00: throat st reaction 00 swelling s to drug Ondanset Propensi Active Other (See 2016-11 Bradycard [place] tejas ty to Comments) 0-05 ia and Methodi adverse 00:00: low heart st reaction 00 rate s to drug Cephalos Propensi Active [place] porins ty to 03-16 Methodi adverse 00:00: st reaction 00 s to drug Esomepra Propensi Active Nausea And 2015-11 CARDIAC [place] zole ty to Vomiting 12-10 ARREST Methodi Magnesiu adverse 00:00: st m reaction 00 s to drug Zolpidem Propensi Active Other (See INSOMNIA, [place] ty to Comments) 05-25 ANXIETY Method i adverse 00:00: st reaction 00 s to drug Codeine Propensi Active Other (See CARDIAC [place] ty to Comments) 05-25 ARREST Methodi adverse 00:00: st reaction 00 s to drug Meperidi Propensi Active Other (See CARDIAC [place] ne ty to Comments) 05-25 ARREST Methodi adverse 00:00: st reaction 00 s to drug Morphine Propensi Active Other (See CARDIAC [place] ty to Comments) 05-25 ARREST Methodi adverse 00:00: EFFECT st reaction 00 s to drug Esomepra Propensi Active Other (See CARDIAC [place] zole ty to Comments) 05-25 ARREST Methodi Magnesiu adverse 00:00: st m reaction 00 s to drug AMBIEN AMBIEN Active Memoria 2-02 l 00:00: 00 CODEINE CODEINE Active 0 Memoria 5-17 l 00:00: MORPHINE MORPHINE Active Memori a 5-17 l 00:00: [place] 00 NEXIUM NEXIUM Active 0 Memoria 5-17 l 00:00: [place] 00 DEMEROL DEMEROL Active 0 Memoria 5-17 l 00:00: Ezra 00 CEPHALOS CEPHALOS Active Memori a PORINS PORINS 5-17 l 00:00: Ezra 00 Meperidi Propensi Active GI [place] Hcl ty to Intolerance 03-09 Metho di adverse 00:00: st reaction 00 s to drug Family History Family Member Diagnosis Comments Start Date Stop Date Source Natural mother Scleroderma Lonnie Soriano ethodist Natural sister Cervical cancer [place] Natural sister Kidney cancer [place] Natural sister Ovarian cancer [place] Social History Social Habit Start Date Stop Date Quantity Comments Source Exposure to Not sure [place] Metho dist SARS-CoV-2 (event) Tobacco use and 2021-03-13 2021-03-13 Never used Lonnie Soriano ethodist exposure 00:00:00 00:00:00 Alcohol intake 2021-03-13 2021-03-13 Current drinker [place] 00:00:00 00:00:00 of alcohol (finding) Alcohol Comment 2017-03-16 2017-03-16 3X PER YEAR [place] [facility] 00:00:00 00:00:00 [birth year] Lonnie Soriano ethodist 00:00:00 00:00:00 Smoking Status Start Date Stop Date Source Never smoker [place] Myriam mcguire Medications Ordered Filled Start Stop Current Ordering Indication Dosage Frequency Signature Comments Components Source Medication Medication Date Date Medication? Clinician (SIG) Name Name predniSONE 2021- Yes 4 tabs po [place] (DELTASONE) - 05-26 daily x 2 Me thodi 10 mg 00:00: 23:59 days, 3 st tablet 00 :00 tabs po daily x 2 days, 2 tabs po daily x 2 days, 1 tab po daily x 2 days, then stop dexlansopra Yes 60mg QD Take 1 [place] zole 5-17 capsule Methodi (Dexilant) 00:00: ([address] 60 mg 00 total) by capsule mouth daily. folic acid Yes 1mg QD Take 1 mg [place] (FOLVITE) 1 5-06 by mouth Meth [facility] MG tablet 16:05: daily. st 13 sucralfate Yes 1g Q.25D Take 1 g [place] (CARAFATE) -06 by mouth 4 Met hodi 1 gram 16:05: (four) st tablet 13 times a day. medroxyPROG Yes Encounter 150mg Q90D Inject 1 [place] ESTERone -06 for mL (150 mg Metho di (DEPO-PROVE 00:00: Depo-Cosmetologist total) st RA) 150 00 a into the mg/mL contracepti shoulder, injection on thigh, or buttocks every 3 (three) months. diazePAM 2021- Yes 10mg QD Take 1 [place] (VALIUM) 10 5-06 05-06 tablet (10 M ethodi MG tablet 00:00: 23:59 mg total) st 00 :00 by mouth nightly as needed for anxiety. HYDROcodone 2020- Yes chronic 1{tbl} Q6H Take 1 [place] -acetaminop 5-06 06-05 pain tablet by Me taiwo hen (NORCO) 00:00: 23:[address] 10-325 mg 00 :00 every 6 per tablet (six) hours as needed for moderate pain for up to 30 days .chronic pain. Max Daily Amount: 4 tablets amLODIPine 0 Yes Raynaud's TAKE 1 Lonnie (NORVASC) -27 disease TABLET BY Me taiwo 10 mg 00:00: without MOUTH st tablet 00 gangrene EVERY DAY FOR BLOOD PRESSURE medroxyPROG 0 2020- No Encounter 150mg Q90D INJECT 1 [place] ESTERone 03-03 05-06 for ML (150 MG Meth mercy (DEPO-PROVE 00:00: 00:00 Depo-Cosmetologist TOTAL) st RA) 150 00 :00 a INTO THE mg/mL contracepti SHOULDER, injection on THIGH, OR BUTTOCKS EVERY 3 (THREE) MONTHS. Hydrocodone 0 Yes Rut 1 tablet Memoria -Acetaminop 4-22 Vo as needed l hen 02:46: Ezra Delarosa Adderall XR 0 Yes Rut 1 capsule Memoria 4-22 Vo in the l 02:46: morning Ezra Delarosa Mucinex DM 0 Yes Rut 1 tablet Memoria 4-22 Vo as needed l 02:46: Ezra Delarosa Rituxan 2020-0 Yes Rut DOCTOR [facility] 4-22 Vo WILL l 02:46: ADMINISTER Ezra Delarosa RITUXAN 1000MG THROUGH IV INFUSION ON WEEK 0, WEEK 2, THEN EVERY 24 WEEKS IN OFFICE PredniSONE 0 Yes Rut 1 tablet Memoria 4-22 Vo l 02:46: Ezra Delarosa Amoxicillin 2020-0 Yes Rut 1 tablet Memoria 4-22 Vo l 02:46: Ezra Delarosa Diazepam 2020-0 Yes Rut as Mem oria 4-22 Vo directed l 02:46: Ezra 16 Amlodipine 0 Yes Rut 1 tablet Memoria Besylate 4-22 Vo l 02:46: Ezra 16 Folic Acid 2020-0 Yes Rut TAKE 1 Memoria 4-22 Vo TABLET BY l 02:46: MOUTH Ezra 16 EVERY DAY Phenergan 0 Yes Rut not Me moria 4-22 Vo defined l 02:46: [place] 16 amphetamine 2020-0 2020- Yes 20mg QD Take 1 Gabriela ston -dextroamph -08 07-07 capsule Meth mercy etamine XR 00:00: 23:59 ([address] (Adderall 00 :00 total) by XR) 20 MG mouth 24 hr every capsule morning for 90 days. Max Daily Amount: 20 mg ubrogepant Yes 50mg Q24H Take 50 mg [place] (Ubrelvy) 4-07 by mouth Method i 50 mg 00:00: daily as st tablet 00 needed (migraine headache). HYDROcodone 2020-0 2020- No chronic 1{tbl} Q6H Take 1 [place] -acetaminop 4-07 05-06 pain tablet by Mt taiwo rios (DealerSocket) 00:00: 00:[address] 10-325 mg 00 :00 every 6 per tablet (six) hours as needed for moderate pain for up to 30 days .chronic pain. Max Daily Amount: 4 tablets BD Yes [place] Tuberculin 3-30 Methodi Syringe 1 00:00: st mL 27 x 00 1/2" syringe methotrexat Yes [place] e 25 mg/mL 3-30 Methodi syringe 00:00: st 00 HYDROcodone 2020-0 2020- No chronic 1{tbl} Q6H Take 1 [place] -acetaminop 3-02 04-07 pain tablet by Mt taiwo rios (DealerSocket) 00:00: 00:[address] 10-325 mg 00 :00 every 6 per tablet (six) hours as needed for moderate pain for up to 30 days .chronic pain. Max Daily Amount: 4 tablets HYDROcodone 2020-0 2020- No chronic 1{tbl} Q6H Take 1 [place] -acetaminop 2-02 03-02 pain tablet by Mt taiwo rios (DealerSocket) 00:00: 00:[address] 10-325 mg 00 :00 every 6 per tablet (six) hours as needed for moderate pain for up to 30 days .chronic pain. Max Daily Amount: 4 tablets medroxyPROG No Encounter 150mg Q90D INJECT 1 [place] ESTERone 1-29 for ML (150 MG Metho di (DEPO-PROVE 00:00: Depo-Cosmetologist TOTAL) st RA) 150 00 a INTO THE mg/mL contracepti SHOULDER, injection on THIGH, OR BUTTOCKS EVERY 3 (THREE) MONTHS. promethazin Yes Non-intract 50mg Q8H TAKE 1 [place] e 1-19 able TABLET (50 Methodi (PHENERGAN) 00:00: vomiting MG TOTAL) st 50 MG 00 with BY MOUTH tablet nausea, EVERY 8 unspecified (EIGHT) vomiting HOURS type NEEDED FOR NAUSEA OR VOMITING. Dexilant 60 2020- No TAKE 1 Gabriela ston mg capsule 11-26-17 CAPSULE BY [employer] 00:00: 00:[address] 00 :00 EVERY DAY HYDROcodone 2020- No chronic 1{tbl} Q6H Take 1 [place] -acetaminop 11-14 02- pain tablet by motify (DealerSocket) 00:00: 00:[address] 10-325 mg 00 :00 every 6 per tablet (six) hours as needed for moderate pain for up to 30 days .chronic pain. Max Daily Amount: 4 tablets clonAZEPAM 2020- No Primary 1-2 mg as [place] (KlonoPIN) 11-12 05-06 insomnia needed for Methodi 1 MG tablet 00:00: 00:00 sleep or s t 00 :00 stress amphetamine 2020- Attention 20mg QD Take 1 Lonnie -dextroamph 11-12 04-05 deficit capsule M ethodi etamine XR 00:00: 23:59 disorder ([address] (Adderall 00 :00 (ADD) total) by XR) 20 MG without mouth 24 hr hyperactivi every capsule ty morning for 90 days. Max Daily Amount: 20 mg HYDROcodone 2020- No chronic 1{tbl} Q6H Take 1 [place] -acetaminop 11-12 01-07 pain tablet by [employer] hen (DealerSocket) 00:00: 00:[address] 10-325 mg 00 :00 every 6 per tablet (six) hours as needed for moderate pain for up to 30 days .chronic pain. Max Daily Amount: 4 tablets predniSONE 2019-11- No 4 tabs po [place] (DELTASONE) 2 05-26 daily x 2 Me thodi 10 mg 00:00: 00:00 days, 3 st tablet 00 :00 tabs po daily x 2 days, 2 tabs po daily x 2 days, 1 tab po daily x 2 days, then stop HYDROcodone 2019-11- No chronic 1{tbl} Q6H Take 1 [place] -acetaminop 2-08 01-05 pain tablet by Me taiwo rios (DealerSocket) 00:00: 00:[address] 10-325 mg 00 :00 every 6 per tablet (six) hours as needed for moderate pain for up to 30 days .chronic pain. Max Daily Amount: 4 tablets cyanocobala 2019-11 Yes ADMINISTER [place] min 1,000 07 1 ML(1000 Metho di mcg/mL 00:00: MCG) UNDER st injection 00 THE SKIN EVERY 7 DAYS insulin 2019-11 Yes Use weekly [place] syringe-nee 11-14 as Methodi dle U-100 00:00: directed st (Insulin 00 with b12 Syringe) 1 mL 29 gauge x 1/2" syringe clonAZEPAM 2019-11- No 1-2 mg as H [place] (KlonoPIN) 11-14 needed for Mt taiwo 1 MG tablet 00:00: 00:00 sleep or s t 00 :00 stress HYDROcodone 2019-11 2020- No chronic 1{tbl} Q6H Take 1 [place] -acetaminop 107 12-08 pain tablet by Me taiwo rios ([employer]) 00:00: 00:[address] 10-325 mg 00 :00 every 6 per tablet (six) hours as needed for moderate pain for up to 30 days .chronic pain. Max Daily Amount: 4 tablets diphenoxyla 2019-11 2020- No 1{tbl} Q.25D Take 1 [place] te-atropine 1-07 11-17 tablet by Me amravilla (LomotiL) 00:00: 23:[address] 2.5-0.025 00 :00 (four) mg per times a tablet day as needed for diarrhea for up to 10 days. amLODIPine 2019-11 No Raynaud's TAKE 1 [place] (NORVASC) 0-27 disease TABLET BY Me maravilla 10 mg 00:00: without MOUTH st tablet 00 gangrene EVERY DAY FOR BLOOD PRESSURE medroxyPROG 2019-11 No Encounter 150mg Q90D Inject 1 [place] ESTERone 0-23 for mL (150 mg Metho di (DEPO-PROVE 00:00: Depo-Cosmetologist total) st RA) 150 00 a into the mg/mL contracepti shoulder, injection on thigh, or buttocks every 3 (three) months. amphetamine 2019-11 No 20mg QD Take 1 Gabriela ston -dextroamph 0-09 01-05 capsule Meth [facility] etamine XR 00:00: 00:00 ([address] (Adderall 00 :00 total) by XR) 20 MG mouth 24 hr every capsule morning for 90 days. Max Daily Amount: 20 mg potassium 2019- Yes 25meq QD Take 1 [place] bicarbonate 0-08 tablet (25 Me thodi (K-LYTE) 25 00:00: mEq total) st MEQ 00 by mouth disintegrat daily. ing tablet HYDROcodone 2019-11- No chronic 1{tbl} Q6H Take 1 [place] -acetaminop 0-08 11-07 pain tablet by motify ([employer]Socket) 00:00: 00:[address] 10-325 mg 00 :00 every 6 per tablet (six) hours as needed for moderate pain for up to 30 days .chronic pain. Max Daily Amount: 4 tablets epINEPHrine 2019-11- No .3mg Inject 0.3 [place] (EPIPEN) 0-08 10-08 mL (0.3 mg Meth mercy 0.3 mg/0.3 00:00: 23:59 total) st mL 00 :00 into the auto-inject shoulder, or thigh, or buttocks once for 1 dose. CellCept 2020-0 [address] 1 tablet Memoria 9-28 Vo l 00:00: [place] 00 Folic Acid 2019-0 Yes Rut 1 tablet Memoria 9-28 Vo l 00:00: Ezra 00 Amlodipine 2020-0 Yes Rut 1 tablet Memoria Besylate 9-16 Vo l 02:45: [place] 33 HYDROcodone 2020-0 2020- No chronic 1{tbl} Q6H Take 1 [place] -acetaminop 9-13 10-08 pain tablet by motify ([employer]) 00:00: 00:[address] 10-325 mg 00 :00 every 6 per tablet (six) hours as needed for moderate pain for up to 30 days .chronic pain. Max Daily Amount: 4 tablets HYDROcodone 2019-0 2020- No chronic 1{tbl} Q6H Take 1 [place] -acetaminop 9-10 09-13 pain tablet by Me taiwo rios ([employer]) 00:00: 00:[address] 10-325 mg 00 :00 every 6 per tablet (six) hours as needed for moderate pain for up to 30 days .chronic pain. Max Daily Amount: 4 tablets CellCept 2020-0 Yes Rut 1 tablet Memoria 8-18 Vo l 00:00: Folic Acid 2020-0 Yes Rut 1 tablet Memoria 8-18 Vo l 00:00: lidocaine 2020-0 Yes 5 ML BY Toshia on HCL 06-14 MUCOUS [facility] (lidocaine) 00:00: MEMBRANE st 2 % 00 ROUTE solution EVERY 3 (THREE) HOURS. clonAZEPAM 2019-0 2020- No 1-2 mg as [place] (KlonoPIN) 06-14 needed for Me thodi 1 MG tablet 00:00: 00:00 sleep or s t 00 :00 stress HYDROcodone 2019-0 2020- No chronic 1{tbl} Q6H Take 1 [place] -acetaminop 8-07 09-10 pain tablet by Me tai[facility] rios ([employer]) 00:00: 00:[address] 10-325 mg 00 :00 every 6 per tablet (six) hours as needed for moderate pain for up to 30 days .chronic pain. Max Daily Amount: 4 tablets predniSONE 2020-0 2020- No 4 tabs po [place] (DELTASONE) 8-05 12-08 daily x 2 Me thodi 10 mg 00:00: 00:00 days, 3 st tablet 00 :00 tabs po daily x 2 days, 2 tabs po daily x 2 days, 1 tab po daily x 2 days, then stop medroxyPROG 2020-0 2020- No 150mg Inject 1 Lonnie ESTERone 7-16 07-16 mL (150 mg Meth [facility] (Depo-Prove 00:00: 23:59 total) st ) 150 00 :00 into the mg/mL shoulder, syringe thigh, or injection buttocks once for 1 dose. Diazepam 2020-0 Yes Rut 1 tablet Memoria 7-03 Vo as needed l 02:45: Dexilant 2020-0 Yes Rut 1 capsule Memoria 7-03 Vo l 02:45: [place] 19 Duloxetine 2020-0 Yes Rut 1 capsule Memoria HCl - Vo l 02:45: [place]ra Topamax 2020-0 Yes Rut 1 tablet Memoria - Vo l 02:45: [place] Laxative 2019-0 Yes Rut not Mem oria 05-10 Vo defined l 02:45: [place] amphetamine 2020-0 2020- No 20mg QD Take 1 Gabriela sewelln -dextroamph 05-08 capsule Meth [facility] etamine XR 00:00: 23:59 ([address] (Adderall 00 :00 total) by XR) 20 MG mouth 24 hr every capsule morning for 90 days. Max Daily Amount: 20 mg HYDROcodone 2019-2019- No chronic 1{tbl} Q6H Take 1 [place] -acetaminop 05-08 pain tablet by Me [place] ([employer]) 00:00: 00:[address] 10-325 mg 00 :00 every 6 per tablet (six) hours as needed for moderate pain for up to 30 days .chronic pain. Max Daily Amount: 4 tablets dexlansopra 2019- No Scleroderma 60mg QD Take 1 Lonnie zole 05-08 (HCC) capsule [facility] (Dexilant) 00:00: 23:59 ([address] 60 mg 00 :00 total) by capsule mouth daily for 30 days. lidocaine 2 2019- No 5 ML BY Alfred wood % solution 04-11 MUCOUS Method i 00:00: 00:[address] 00 :00 ROUTE EVERY 3 (THREE) HOURS. clonAZEPAM 2019-2019- No 1-2 mg as [place] (KlonoPIN) 04-10 needed for [facility] 1 MG tablet 00:00: 00:00 sleep or s t 00 :00 stress HYDROcodone 2019- 2020- No chronic 1{tbl} Q6H Take 1 Lonnie -acetaminop 04-10 pain tablet by Me [place] ([employer]) 00:00: 00:[address] 10-325 mg 00 :00 every 6 per tablet (six) hours as needed for moderate pain for up to 30 days .chronic pain. Max Daily Amount: 4 tablets azithromyci 2019- 2020- No Cough Take 2 Alfred [place] n 04-10 tablets [facility] (Zithromax) 00:00: 23:59 ([address] 250 MG 00 :00 total) by tablet mouth daily for 1 day, THEN 1 tablet (250 mg total) daily for 4 days. potassium 2020-0 2020- No 25meq Q.5D Take 1 [place] bicarbonate 04-10 tablet (25 M ethodi (K-LYTE) 25 00:00: 23:59 mEq total) st MEQ 00 :00 by mouth 2 disintegrat (two) ing tablet times a day for 5 days. Spironolact 2020-0 Yes Rut 1 tablet Memoria one 5-22 Vo l 02:45: B12 2020-0 Yes Rut not [facility] INJECTION 5-22 Vo defined l 02:45: Vitamin K 2020-0 Yes Rut not Me moria 5-22 Vo defined l 02:45: Baclofen 2020-0 Yes Rut 1 tablet Memoria 5-22 Vo with food l 02:45: or milk Promethazin 2019-0 Yes Rut 1 tablet Memoria e HCl 5-22 Vo as needed l 02:45: Ranitidine 2020-0 Yes Rut 4 tablets Memoria HCl 5-22 Vo l 02:45: Amlodipine 2020-0 Yes Rut 1 tablet Memoria Besylate 5-22 Vo l 02:45: Furosemide 2020-0 Yes Rut 1 tablet Memoria 5-22 Vo l 02:45: Syringe 2020-0 Yes Rut as Pedro cl (Disposable 5-20 Vo directed l ) 00:00: Needle 2020-0 Yes Rut as Memor ia (Disp) 5-20 Vo directed l 00:00: clonAZEPAM 2019-0 2020- No 1-2 mg as [place] (KlonoPIN) 03-09 needed for Me thodi 1 MG tablet 00:00: 00:00 sleep or s t 00 :00 stress amLODIPine 2019-0 No Raynaud's 10mg QD Take 1 [place] (NORVASC) 03-08 disease tablet (10 M ethodi 10 mg 00:00: without mg total) st tablet 00 gangrene by mouth daily. For blood pressure promethazin 2020-0 No Non-intract 50mg Q8H Take 1 [place] e 5-01 able tablet (50 [facility] (PHENERGAN) 00:00: vomiting mg total) st 50 MG 00 with by mouth tablet nausea, every 8 unspecified (eight) vomiting hours as type needed for nausea or vomiting. pantoprazol Yes Dyspepsia 40mg QD Take 1 [place] e 5- tablet (40 [facility] (Protonix) 00:00: mg total) st 40 MG EC 00 by mouth tablet daily. HYDROcodone 2019- No chronic 1{tbl} Q6H Take 1 [place] -acetaminop 5- 06-03 pain tablet by Me tai[facility] rios (NORCO) 00:00: 00:[address] 10-325 mg 00 :00 every 6 per tablet (six) hours as needed for moderate pain for up to 30 days .chronic pain. Max Daily Amount: 4 tablets amphetamine 2019-2019- No 20mg QD Take 1 Gabriela ston -dextroamph 01-27 06-20 capsule Meth [facility] etamine XR 00:00: 23:59 ([address] (Adderall 00 :00 total) by XR) 20 MG mouth 24 hr every capsule morning for 90 days. Max Daily Amount: 20 mg cyanocobala 2019-2019- No ADMINISTER [place] min 1,000 3-21 11-07 1 ML(1000 Meth [facility] mcg/mL 00:00: 00:00 MCG) UNDER st injection 00 :00 THE SKIN EVERY 7 DAYS triamcinolo 2020- No [id number] Apply [place] ne 11-27 [id number] topically Met [facility] (KENALOG) 00:00: 23:59 3D 3 (three) st 0.1 % 00 :00 times a lotion day. For hives lidocaine 2019-2019- No 5mL Q.125D 5 mL by nina HCl 11-27 06-04 mucous [facility] (lidocaine) 00:00: 00:00 membrane s t 2 % 00 :00 route solution every 3 (three) hours. CellCept 2018-11 Yes Rut 1 tablets Memoria 11-20 Vo l 03:46: Folic Acid 2018-11 Yes Rut not M emoria 11-20 Vo defined l 03:46: CellCept Yes Rut 1 tablets Memoria 9-13 Vo l 00:00: insulin 2019-0 2020- No Use weekly Gabriela ston syringe-nee -09 18- as Methodi dle U-100 00:00: 00:[address] (INSULIN 00 :00 with b12 SYRINGE) 1 mL 29 gauge x 1/2" syringe dicyclomine Yes [place] (BENTYL) 20 7-10 [facility] mg tablet 00:00: st 00 Azathioprin Yes Rut 1 tablet Mem[facility] e 5-01 Vo l 00:00: BD REGULAR Yes [facility] BEVEL 4-11 [facility] NEEDLES 25 00:00: st gauge x 00 5/8" needle ULTRA 2017-11 Yes USE [facility] COMFORT 2-06 DIRECTED [facility] INSULIN 00:00: ONCE st SYRINGE 1 00 WEEKLY mL 28 gauge x 1/2" syringe Methotrexat 2017-11 Yes Rut 1 cc as Memoria e Sodium 1-15 Vo directed l 00:00: Syringe 2017-11 Yes Rut injection Memoria 1-15 Vo as l 00:00: directed fluocinonid Yes Q.5D Apply [place] on e (LIDEX) 1-02 topically Metho di 0.05 % 00:00: 2 (two) st ointment 00 times a day as needed (rash or itching). LIDOCAINE Yes 5ml swish Mem oria VISCOUS 2 % 05-09 and l SOLN 00:00: swallow every 6-8 hours as needed for sore throat AUGMENTIN No 1 tablet Pedro cl 875-125 MG 05-09 twice l TABS 00:00: daily for 10 days MEDROL Yes Take as [facility] (CHAD) 4 MG 05-09 directed l TABS 00:00: DIFLUCAN No 1 tablet x [facility] 150 MG TABS 05-09 1 dose l 00:00: now, repeat dose in 3 days MUPIROCIN 2 Yes apply to Me moria % OINT 05-09 affected l 00:00: area three [place] 00 times daily as needed ZOFRAN 4 MG 2015-0 No 1-2 Memori a TABS 6-23 tablets l 00:00: every 8 [place] 00 hours as needed for nausea/vom iting POTASSIUM 2014- Yes 1 tablet Pedro cl CHLORIDE 6-05 daily with l BANDAR ER 20 00:00: lasix Bernardo n MEQ CR-TABS 00 MEDROL No Take as [facility] (CHAD) 4 MG 6-05 directed l TABS 00:00: [place] 00 TOPAMAX 100 2014-0 Yes 1 tab po Me moria MG TABS 6-05 daily l 00:00: Ezra POTASSIUM Yes 1 tablet Pedro cl CHLORIDE 6-05 daily with l BANDAR ER 20 00:00: lasix Bernardo n MEQ CR-TABS 00 TOPAMAX 50 Yes 1/2 tab Pedro cl MG TABS 6-05 daily x 1 l 00:00: week, then increase 1 tab daily POTASSIUM Yes 1 tablet Pedro cl CHLORIDE 6-05 daily with l BANDAR ER 20 00:00: lasix Bernardo n MEQ CR-TABS 00 FUROSEMIDE Yes 1 tablet Mem oria 20 MG TABS 5-15 daily prn l 00:00: abdominal Ezra 00 or leg swelling FUROSEMIDE Yes 1 tablet Mem oria 20 MG TABS 5-15 daily prn l 00:00: abdominal Erza or leg swelling FUROSEMIDE 2014- Yes 1 tablet Mem oria 20 MG TABS 5-15 daily prn l 00:00: abdominal Ezra 00 or leg swelling SERTRALINE 2014- Yes 1 tablet Mem oria HCL 100 MG 4-16 daily for l TABS 00:00: mood SERTRALINE 0 Yes 1 tab Memori a HCL 50 MG 4-16 daily for l TABS 00:00: mood SERTRALINE Yes 1 tab Memori a HCL 50 MG 4-16 daily for l TABS 00:00: mood VALIUM 5 MG 2014- Yes 1 tablet Me moria TABS 4-10 po nightly l 00:00: as needed [place] 00 for sleep or muscle relaxers PREDNISONE 2014-0 No 2 tablets Me moria 20 MG TABS 4-10 daily x 3 l 00:00: days, then 1 tablets daily X 3 days, then 1/2 tablet daily x 8 days, then stop and take 1/2 tab daily only as directed PREDNISONE No 2 tablets Me moria 20 MG TABS 4-10 daily x 3 l 00:00: days, then Ezra 00 1 tablets daily X 3 days, then 1/2 tablet daily x 8 days, then stop and take 1/2 tab daily only as directed PREDNISONE No 2 tablets Me moria 20 MG TABS 4-10 daily x 3 l 00:00: days, then Ezra 00 1 tablets daily X 3 days, then 1/2 tablet daily x 8 days, then stop and take 1/2 tab daily only as directed FUROSEMIDE No 1 tablet Mem oria 20 MG TABS 3-07 [facility] tablet Mem [facility] 20 MG TABS 3-07 daily prn l [facility] No 1 tablet Mem oria 20 MG TABS 3-07 daily prn l 00:00: [facility] ESTAZOLAM 2 No 1/2 -1 tab Memoria MG TABS 3-05 nightly l 00:00: prn Ezra insomnia TAMIFLU 75 No 1 capsule Me moria MG CAPS 2-10 daily x 10 l 00:00: days for flu prophylaxi s TAMIFLU 75 No 1 capsule Me moria MG CAPS 2-10 daily x 10 l 00:00: days for flu prophylaxi s CITALOPRAM Yes 1 tablet Mem oria HYDROBROMID 2-02 daily l E 10 MG 00:00: Ezra TABS LUNESTA 3 No 1 tablet Pedro lc MG TABS 2-02 at bedtime l 00:00: as needed for insomnia PROMETHAZIN No 1 tablet Me moria E HCL 25 MG 2-02 every 8 l TABS 00:00: hours as Ezra 00 needed for nausea/vom iting CITALOPRAM No 1 tablet Mem oria HYDROBROMID 2-02 daily for l E 20 MG 00:00: mood [place] TABS PROMETHAZIN No 1 tablet Me moria E HCL 25 MG 2-02 every 8 l TABS 00:00: hours as needed for nausea/vom iting LUNESTA 3 No 1 tablet Pedro cl MG TABS 2-02 at bedtime l 00:00: as needed for insomnia PROMETHAZIN No 1 tablet Me moria E HCL 25 MG 2-02 every 8 l TABS 00:00: hours as needed for nausea/vom iting PREDNISONE 2013-11 No 1 tab Memori a 10 MG TABS 1-26 daily l 00:00: PREDNISONE 2013-11 No 1 tab Memori a 10 MG TABS 1-26 daily l 00:00: LOSARTAN 2013-11 No 1 tab Memoria POTASSIUM 1-26 daily l 50 MG TABS 00:00: HYDROCODONE 2013-11 Yes 1 tablet Me moria -ACETAMINOP 1-26 three l HEN 10-325 00:00: times a Herm najma MG TABS day as needed for pain PLAQUENIL 2013-11 No Memoria 200 MG TABS 1-26 l 00:00: HYDROXYCHLO 2013-11 No 1 tab Memor ia ROQUINE 1-26 twice l SULFATE 200 00:00: daily Whit nn MG TABS PREDNISONE 2013-11 Yes 1 tab Memori a 10 MG TABS 1-26 daily l 00:00: HYDROXYCHLO 2013-11 No 1 tab Memor ia ROQUINE 1-26 twice l SULFATE 200 00:00: daily Whit nn MG TABS 00 LOSARTAN 2013-11 No 1 tab Memoria POTASSIUM 1-26 daily l 50 MG TABS 00:00: HYDROCODONE 2013-11 Yes 1 tablet Me moria -ACETAMINOP 1-26 three l HEN 10-325 00:00: times a Herm najma MG TABS day as needed for pain HYDROCODONE 2013-11 Yes 1 tablet Me moria -ACETAMINOP 1-26 three l HEN 10-325 00:00: times a Herm najma MG TABS day as needed for pain HYDROXYCHLO 2013-11 No 1 tab Memor ia ROQUINE 1-26 twice l SULFATE 200 00:00: daily Whit nn MG TABS 00 PLAQUENIL 2013-11 No Memoria 200 MG TABS 1-26 l 00:00: Ezra 00 HYDROXYCHLO 2013-11 No 1 tab Memor ia ROQUINE 1-26 twice l SULFATE 200 00:00: daily Whit nn MG TABS 00 PREDNISONE 2013-11 No 1 tab Memori a 10 MG TABS 1-26 daily l 00:00: [place] 00 HYDROCODONE 2013-11 Yes 1 tablet Me moria -ACETAMINOP 1-26 three l HEN 10-325 00:00: times a Herm najma MG TABS 00 day as needed for pain PLAQUENIL 2013-11 No Memoria 200 MG TABS 1-26 l 00:00: [place] 00 CIPROFLOXAC No 1 tablet Me moria IN HCL 500 9-17 twice l MG TABS 00:00: daily for Whit nn 00 urinary infection x 3 days CIPROFLOXAC No 1 tablet Me moria IN HCL 500 9-17 twice l MG TABS 00:00: daily for Whit nn 00 urinary infection x 3 days CIPROFLOXAC No 1 tablet Me moria IN HCL 500 9-17 twice l MG TABS 00:00: daily for Whit nn 00 urinary infection x 3 days NORVASC 5 No 1 tablet Pedro cl MG TABS 9-09 daily for l 00:00: blood pressure, increase to 2 tabs daily if bp > 140/90 PREDNISONE Yes 4 tablets Me moria 10 MG TABS 9-09 daily x 1 l 00:00: day, then Ezra 00 3 tablets daily x 1 day, then 2 tablets daily x 1 day, then 1 tablet daily thereafter PREDNISONE No 4 tablets Me moria 10 MG TABS 9- daily x 1 l 00:00: day, then Ezra 00 3 tablets daily x 1 day, then 2 tablets daily x 1 day, then 1 tablet daily thereafter PREDNISONE No 4 tablets Me moria 10 MG TABS 9-09 daily x 1 l 00:00: day, then [place] 00 3 tablets daily x 1 day, then 2 tablets daily x 1 day, then 1 tablet daily thereafter PREDNISONE No 4 tablets Me moria 10 MG TABS 9-09 daily x 1 l 00:00: day, then [place] 00 3 tablets daily x 1 day, then 2 tablets daily x 1 day, then 1 tablet daily thereafter NORVASC 5 No 1 tablet Pedro cl MG TABS 9-09 daily for l 00:00: blood pressure, increase to 2 tabs daily if bp > 140/90 PREDNISONE No 4 tablets Me moria 10 MG TABS 9-09 daily x 1 l 00:00: day, then 3 tablets daily x 1 day, then 2 tablets daily x 1 day, then 1 tablet daily thereafter ZOFRAN ODT No 1-2 Memoria 4 MG TBDP 5-29 tablets l 00:00: under your tongue q8 hours as needed for severe nausea RANITIDINE Yes 1 tablet Mem oria HCL 150 MG 5-29 twice l TABS 00:00: daily for stomach RANITIDINE No 1 tablet Mem oria HCL 150 MG 5-29 twice l TABS 00:00: daily for stomach RANITIDINE No 1 tablet Mem oria HCL 150 MG 5-29 twice l TABS 00:00: daily for stomach RANITIDINE No 1 tablet Mem oria HCL 150 MG 5-29 twice l TABS 00:00: daily for stomach RANITIDINE No 1 tablet Mem oria HCL 150 MG 5-29 twice l TABS 00:00: daily for stomach VITAMIN D Yes Take 1 Memori a (ERGOCALCIF 5-28 capsule by l REY) 00:00: mouth Whit nn UNIT CAPS 00 every week for 12 weeks VITAMIN D No Take 1 Memori a (ERGOCALCIF 5-28 capsule by l REY) 00:00: mouth Whit nn UNIT CAPS 00 every week for 12 weeks VITAMIN D No Take 1 Memori a (ERGOCALCIF 5-28 capsule by l REY) 00:00: mouth Whit nn UNIT CAPS 00 every week for 12 weeks PANTOPRAZOL Yes 40 mg po Me moria E SODIUM 40 5-17 daily l MG TBEC 00:00: TOPAMAX 100 No 1 tab po Me moria MG TABS 5-17 bid for l 00:00: seizures PROMETHAZIN No 1 tablet Me moria E HCL 25 MG 5-17 once or l TABS 00:00: twice Ezra 00 daily as needed for nausea/vom iting AZITHROMYCI 2013-0 No 2 tablets M emoria N 250 MG 5-17 daily for l TABS 00:00: 1 day, [place] 00 then 1 tablet daily for 4 days PANTOPRAZOL 2013-0 No 40 mg po Me moria E SODIUM 40 5-17 daily l MG TBEC 00:00: [place] 00 PANTOPRAZOL 2013-0 No 40 mg po Me moria E SODIUM 40 5-17 daily l MG TBEC 00:00: [place] 00 PROMETHAZIN 2013-0 No 1 tablet Me moria E HCL 25 MG 5-17 once or l TABS 00:00: twice [place] 00 daily as needed for nausea/vom iting PROMETHAZIN 2013-0 No 1 tablet Me moria E HCL 25 MG 5-17 once or l TABS 00:00: twice [place] 00 daily as needed for nausea/vom iting PROMETHAZIN 2013-0 No 1 tablet Me moria E HCL 25 MG 5-17 once or l TABS 00:00: twice [place] 00 daily as needed for nausea/vom iting Immunizations Ordered Immunization Filled Immunization Date Status Commen ts Source Name Name MILKA REED 2019-07-25 Completed [place] 00[facility]00:00 [facility] MILKA REED 2019-07-25 Completed [place] 00:00:00 [facility] PHUCJEREMIAHJENNIFER REED 2016-08-20 Completed [place] 00:00:00 [facility] Vital Signs Vital Name Observation Time Observation Value Comments Source Systolic blood 2021-03-13 16:04:00 144 mm[Hg] [place] n [facility] pressure Diastolic blood 2021-03-13 16:04:00 90 mm[Hg] [place] on [facility] pressure Heart rate 2021-03-13 16:04:00 95 /min [place] [facility] Body height 2021-03-13 16:04:00 167.6 cm [place] [facility] Body weight 2021-03-13 16:04:00 90.719 kg [place] [facility] BMI 2021-03-13 16:04:00 32.28 kg/m2 [place] [facility] Weight 2021-02-04 15:30:00 [facility] Height 2021-02-04 15:30:00 [facility] Temperature Oral (F) 2021-02-04 15:30:00 98.4 F [facility] [place] Heart Rate 2021-02-04 15:30:00 [facility] [place] Diastolic (mm Hg) 2021-02-04 15:30:00 Mem orial [place] Systolic (mm Hg) 2021-02-04 15:30:00 Pedro rial [place] Weight 2020-07-23 16:00:00 [facility] [place] Height 2020-07-23 16:00:00 [facility] Heart Rate 2020-07-23 16:00:00 [facility] [place] Diastolic (mm Hg) 2020-07-23 16:00:00 Mem orial [place] Systolic (mm Hg) 2020-07-23 16:00:00 Pedro rial [place] Weight 2020-07-23 13:00:00 [facility] [place] Height 2020-07-23 13:00:00 [facility] [place] Temperature Oral (F) 2020-07-23 13:00:00 97.3 F [facility] Heart Rate 2020-07-23 13:00:00 [facility] [place] Diastolic (mm Hg) 2020-07-23 13:00:00 Mem orial [place] Systolic (mm Hg) 2020-07-23 13:00:00 Pedro rial [place] Weight 2019-07-18 17:15:00 [facility] [place] Height 2019-07-18 17:15:00 [facility] [place] Heart Rate 2019-07-18 17:15:00 [facility] [place] Diastolic (mm Hg) 2019-07-18 17:15:00 Mem orial [place] Systolic (mm Hg) 2019-07-18 17:15:00 Pedro rial [place] Height 2015-05-09 12:57:01 [facility] [place] Weight 2015-05-09 12:57:01 [facility] Temperature Oral (F) 2015-05-09 12:57:01 97.0 F [facility] [place] Heart Rate 2015-05-09 12:57:01 [facility] [place] Systolic (mm Hg) 2015-05-09 12:57:01 Pedro rial [place] Diastolic (mm Hg) 2015-05-09 12:57:01 Mem orial [place] Weight 2015-04-12 18:09:11 [facility] Temperature Oral (F) 2015-04-12 18:09:11 98.2 F [facility] Systolic (mm Hg) 2015-04-12 18:09:11 Pedro rial [place] Diastolic (mm Hg) 2015-04-12 18:09:11 Mem orial [place] Heart Rate 2015-04-12 18:09:11 [facility] [place] Height 2015-03-22 14:02:42 [facility] Weight 2015-03-22 14:02:42 [facility] [place] Temperature Oral (F) 2015-03-22 14:02:42 95.9 F [facility] Heart Rate 2015-03-22 14:02:42 [facility] [place] Systolic (mm Hg) 2015-03-22 14:02:42 Pedro rial [place]ra Diastolic (mm Hg) 2015-03-22 14:02:42 Mem orial [place] Height 2015-02-15 19:44:20 [facility] [place] Weight 2015-02-15 19:44:20 [facility] [place] Systolic (mm Hg) 2015-02-15 19:44:20 Pedro rial [place] Heart Rate 2015-02-15 19:44:20 [facility] [place] Diastolic (mm Hg) 2015-02-15 19:44:20 Mem orial [place] Temperature Oral (F) 2015-02-15 19:44:20 97.3 F [facility] [place] Height 2015-01-10 15:02:41 [facility] [place] Weight 2015-01-10 15:02:41 [facility] Temperature Oral (F) 2015-01-10 15:02:41 97.6 F [facility] [place] Heart Rate 2015-01-10 15:02:41 [facility] [place] Systolic (mm Hg) 2015-01-10 15:02:41 Pedro rial [place]ra Diastolic (mm Hg) 2015-01-10 15:02:41 Mem orial [place] Weight 2014-12-10 17:08:41 [facility] Temperature Oral (F) 2014-12-10 17:08:41 97.0 F [facility] Systolic (mm Hg) 2014-12-10 17:08:41 Pedro rial [place] Diastolic (mm Hg) 2014-12-10 17:08:41 Mem orial [place] Heart Rate 2014-12-10 17:08:41 [facility] [place] Weight 2014-11-13 18:47:52 [facility] Temperature Oral (F) 2014-11-13 18:47:52 96.8 F [facility] [place] Height 2014-11-13 18:47:52 [facility] Heart Rate 2014-11-13 18:47:52 [facility] [place] Systolic (mm Hg) 2014-11-13 18:47:52 Pedro rial [place] Diastolic (mm Hg) 2014-11-13 18:47:52 Mem orial [place] Height 2014-10-26 16:57:21 [facility] [place] Weight 2014-10-26 16:57:21 [facility] [place] Heart Rate 2014-10-26 16:57:21 [facility] [place] Systolic (mm Hg) 2014-10-26 16:57:21 Pedro rial [place] Diastolic (mm Hg) 2014-10-26 16:57:21 Mem orial [place] Temperature Oral (F) 2014-10-26 16:57:21 98.1 F [facility] [place] Height 2014-10-03 13:40:50 [facility] [place] Weight 2014-10-03 13:40:50 [facility] [place] Temperature Oral (F) 2014-10-03 13:40:50 97.2 F [facility] Heart Rate 2014-10-03 13:40:50 [facility] [place] Systolic (mm Hg) 2014-10-03 13:40:50 Pedro rial [place] Diastolic (mm Hg) 2014-10-03 13:40:50 Mem orial [place] Weight 2014-07-17 16:22:01 [facility] [place] Systolic (mm Hg) 2014-07-17 16:22:01 Pedro rial [place] Diastolic (mm Hg) 2014-07-17 16:22:01 Mem orial [place] Heart Rate 2014-07-17 16:22:01 [facility] [place] Temperature Oral (F) 2014-07-17 16:22:01 97.5 F [facility] [place] Height 2014-07-17 16:22:01 [facility] [place] Weight 2014-03-24 19:05:21 [facility] [place] Height 2014-03-24 19:05:21 [facility] Temperature Oral (F) 2014-03-24 19:05:21 98.9 F [facility] [place] Heart Rate 2014-03-24 19:05:21 [facility] [place] Systolic (mm Hg) 2014-03-24 19:05:21 Pedro rial [place] Diastolic (mm Hg) 2014-03-24 19:05:21 Mem orial [place] Procedures Procedure Date / Time Performed Performing Clinician Sourc e COMPREHENSIVE METABOLIC 2020-11-18 14:01:00 Mike Payan PANEL MAGNESIUM, RBC 2020-11-18 14:01:00 Mike Payan CBC WITH PLATELET AND 2020-11-18 14:01:00 Mike Payan [place] DIFFERENTIAL FERRITIN LEVEL 2020-11-18 14:01:00 Mike Payan Plan of Care Planned Activity Planned Date Details Comments Source Future Scheduled 2021-06-08 INFLUENZA VACCINE [place] [facility] Test 00:00:00 [code = INFLUENZA VACCINE] Future Scheduled 1996 Screening for [facility] 00:00:00 malignant neoplasm of cervix (procedure) [code = 082825198] Future Scheduled 1993 Hepatitis C screening [place] [facility] Test 00:00:00 (procedure) [code = 982705067] Future Scheduled 1987 COVID-19 VACCINE (1) Gabrielaraphael mccormack [facility] Test 00:00:00 [code = COVID-19 VACCINE (1)] Future Scheduled 1976 COLONOSCOPY SCREENING [place] [facility] Test 00:00:00 [code = COLONOSCOPY SCREENING] Encounters Start End Encounter Admission Attending Care Care Encounter Source Date/Time Date/Time Type Type Clinicians Facility Department ID 2020-01-02 Outpatient [facility]SE [facility]SE [id number] 11:21:24 [facility] 2021-03-13 2021-03-17 Outpatient [facility] [id number] [place] 00:00:00 00:00:00 MIKE [address] 2021-02-12 2021-02-12 Outpatient [facility] [id number] [place] 00:00:00 00:00:00 MIKE [address] 2021-02-10 2021-02-10 Outpatient GABRIELA YANCEY - [id number] [facility] 07:09:00 07:09:00 [facility] 2021-02-05 2021-02-05 Outpatient GABRIELA YANCEY - [id number] [facility]inic 13:24:00 13:24:00 [facility] 2021-02-042021-02-04 Outpatient PRL - PRL - [id number] [facility]Clinic 10:30:00 10:30:00 [facility] 2021-01-07 2021-01-07 Outpatient PAYAN, [facility] [id number] [place] 00:00:00 00:00:00 ZENITHE [address] 2020-12-10 2020-12-10 Outpatient PAYAN, [facility] [id number] [place] 00:00:00 00:00:00 ZENITHE [address] 2020-11-12 2020-11-12 Outpatient [facility] [id number] [place] 00:00:00 00:00:[address] 2020-10-15 2020-10-15 Outpatient PAYAN, [facility] [id number] [place] 00:00:00 00:00:00 ZENITHE [address] 2020-09-11 2020-09-11 Outpatient PAYAN, [facility] [id number] [place] 00:00:00 00:00:00 ZENITHE [address] 2020-08-15 2020-08-15 Outpatient PAYAN, [facility] [id number] [place] 00:00:00 00:00:00 ZENITHE [address] 2020-08-13 2020-08-13 Outpatient E [facility] [id number] BL 16:31:00 16:31:00 2020-08-01 2020-08-01 Outpatient Rheumatol Rheumatolog [id number] [facility] 2020-07-23 Out[facility] PRL - PRL - [id number] [facility] 11:00:00 11:00:00 [facility] 2020-07-23 Outpatient PRL - PRL - [id number] [facility] 08:00:00 08:00:00 Rheumatol Rheumatolog [facility] 2020-07-22 2020-07-22 Outpatient Rheumatol Rheumatolog [id number] [facility] 16:32[facility]00 [facility] 2020-07-18 Outpatient PAYAN, [facility] [id number] [address] 00:00:00 00:00:00 ZEN[facility]HE [address] 2020-06-14 2020-06-14 Outpatient PAYAN, [facility] [id number] [address] [place] 00:00:00 00:00:00 ZENITHE 278 Method i 2020-06-12 2020-06-12 Emergency Singer [facility] [id number] 07:42:00 11:54:00 Corey Munroe 350.1.13.10 [place] 4.2.7.2.686 [place] [id number] 2020-06-12 2020-06-12 Orders Doctor COOLEY 1.2.840.114 [id number] 00:00:00 00:00:00 Only Unassigned, TED 350.1.13.10 [place] 10282.2.7.2.686 [id number] 2020-05-09 2020-05-09 Outpatient GABRIELA - GABRIELA - [id number] eClinic 13:50:00 13:50:00 Rheumatol Rheumatolog alWorks ogy y [facility] 2020-05-09 2020-05-09 Outpatient GABRIELA - GABRIELA - [id number] eClinic 13:49:00 13:49:00 Rheumatol Rheumatolog alWorks ogy y [facility] 2020-05-09 2020-05-09 Outpatient GABRIELA - GABRIELA - [id number] eClinic 11:30:00 11:30:00 Rheumatol Rheumatolog alWorks ogy y [facility] 2020-05-08 2020-05-08 Outpatient PAYAN, [facility] [id number] 8[address] [place] 00:00:00 00:00:00 ZENITHE 125 Method i 2020-05-07 2020-05-07 Outpatient GABRIELA - GABRIELA - [id number] eClinic 10:31:00 10:31:00 Rheumatol Rheumatolog alWorks ogy y [facility] 2020-04-23 2020-04-23 YASIR Rios [id number] [id number] 00:00:00 00:00:00 Zenithe TED 350.1.13.10 [facility] 4.2.7.2.686 [id number] 2020-04-23 2020-04-23 Patient Doctor YASIR 1.2.840.114 [id number] 00:00:00 00:00:00 Secure Msg Unassigned, TED 350.1.13.10 [facility] 4.2.7.2.686 [id number] [id number] 2020-04-22 2020-04-22 Urgent Pob1, Acute [place] 1.2.840.114 [id number] 09:10:36 09:30:36 [facility] 350.1.13.10 [place] 4.2.7.2.686 Professio [id number] nal [address] 2020-04-10 2020-04-10 Outpatient SCHUYLER, [facility] [id number] 0[address] [place] 00:00:00 00:00:00 MIKE 409 Method i 2020-03-27 2020-03-27 Outpatient GABRIELA - GABRIELA - [id number] eClinic 14:30:00 14:30:00 Rheumatol Rheumatolog alWorks ogy y [facility] 2020-03-11 2020-03-11 Outpatient GABRIELA - GABRIELA - [id number] eClinic 22:56:00 22:56:00 Rheumatol Rheumatolog alWorks ogy [facility] 2020-03-08 2020-03-08 Outpatient SCHUYLER, [facility] [id number] [address] [place] 00:00:00 00:00:00 MIKE [address] 2020-01-26 2020-01-26 Outpatient SCHUYLER, [facility] [id number] 581 [place] 00:00:00 00:00:00 MIKE [address] 2020-01-20 2020-01-19 Inpatient E MHSE MED 7530 13:05:00 03:33:[address] [facility] 2020-01-16 2020-01-16 Outpatient MHSE MHSE 7529 MH 07:23:00 07:23:[address] [facility] 2020-01-15 2020-01-15 Outpatient MHSE MHSE 7528 MH 10:14:00 10:14:[address] [facility] 2020-01-11 2020-01-11 Outpatient MHSE MHSE 7527 10:53:00 10:53:[address] [facility] 2020-01-09 2020-01-09 Outpatient MHSE MHSE 7526 07:45:00 07:45:[address] [facility] 2020-01-02 2020-01-02 Outpatient [facility] [id number] [address] [place] [address] 00:00:00 00:00:[address] 2019-11-27 2019-11-27 Outpatient E MHSE MED 7524 17:46:00 17:46:[address] [facility] 2019-09-01 2019-09-01 Outpatient PRL - PRL - [id number] eClinic 11:22:00 11:22:00 Rheumatol Rheumatolog alWorks ogy y [facility] 2019-09-01 2019-09-01 Outpatient PRL - PRL - [id number] eClinic 11:08:00 11:08:00 Rheumatol Rheumatolog alWorks ogy y [facility] 2019-07-19 2019-07-19 Outpatient GABRIELA - GABRIELA - [id number] eClinic 11:36:00 11:36:00 Rheumatol Rheumatolog alWorks ogy y [facility] 2019-07-18 2019-07-18 Outpatient PRL - PRL - [id number] eClinic 11:15:00 11:15:00 Rheumatol Rheumatolog alWorks ogy y [facility] Results Test Description Test Time Test Comments Results Result Comments Source Comprehensive metabolic panel 2020-11-28 13:01:00 Test Item Value Reference Range Interpretation Comme nts Glucose (test code = 90 mg/dL 65-139 Non-fasting 2345-7) reference inter noni BUN (test code = 3094-0) 14 mg/dL 7-25 Creatinine (test code = 0.58 mg/dL 0.50-1.10 2160-0) EGFR Non-Afr. [place]an 112 See_Comment [Aut omated message] (test code = 2775) The syste [employer] which generated this result transmitted ref erence range: > OR = 6 0 mL/min/1.73m2. The reference range was not used to int erpret this result as normal/abnormal . EGFR 130 See_Comment [Auto mated message] (test code = 46909-3) The sy stem which generated this result transmitted ref erence range: > OR = 6 0 mL/min/1.73m2. The reference range was not used to int erpret this result as normal/abnormal . BUN/creatinine ratio (test NOT APPLICABLE See_Comment [Automated message] code = 3097-3) The system ich generated this result transmitted ref erence range: 6 - 22 ( calc). The reference r stephane was not used to interpret this result as normal/abnor mal. Sodium (test code = 139 mmol/L 427-780 7023-2) Potassium (test code = 4.0 mmol/L 3.5-5.3 2823-3) Chloride (test code = 105 mmol/L 98-110 2075-0) CO2 (test code = 8-9) 23 mmol/L 20-32 Calcium (test code = 9.3 mg/dL 8.6-10.2 34952-1) Protein (test code = 7.0 g/dL 6.1-8.1 2885-2) Albumin, S (test code = 4.0 g/dL 3.6-5.1 1751-7) Globulin, total (test code 3.0 See_Comment [Automated message] = 43914-0) The system ic h generated this result transmitted ref erence range: 1.9 - 3. 7 g/dL (calc). The ref erence range was not u sed to interpret this result as normal/abnor mal. Albumin/globulin ratio 1.3 See_Comment [Aut omated message] (test code = 1759-0) The health system tem which generated this result transmitted ref erence range: 1.0 - 2. 5 (calc). The ref erence range was not u sed to interpret this result as normal/abnor mal. Total bilirubin (test code 0.4 mg/dL 0.2-1.2 = 1974-) Alkaline phosphatase (test 173 U/L 31-125 H code = 6768-6) AST (test code = 1920-8) 69 U/L 10-30 H ALT (test code = 1742-6) 86 U/L 6-29 H EARL (test code = EARL) FASTING:NOFASTING: NO RAC (test code = RAC) Performing Organization Information: Site ID: A Name: [facility] Address: [address] [place] [id number] Director: Krunal Pettit Lab Interpretation (test Abnormal code = 38398-7) [place] [facility] [id number] 13:01:00 Test Item Value Reference Range Interpretation Comments Ferritin level (test 12 ng/mL 16-232 L code = 2276-4) EARL (test code = EARL) FASTING:NOFASTING: NO RAC (test code = RAC) Performing Organization Information: Site ID: [facility] Name: [facility] Address: [address] [place] [phone] Director: Krunal Pettit Lab Interpretation (test Abnormal code = 11799-7) [place] [facility], [id number] 13:01:00 Test Item Value Reference Range Interpretation Comments Magnesium RBC 4.1 mg/dL 4.0-6.4 This test was (test code = [place] [address]-2) analytical performance characteristics have been determined by [employer] cs. It has not been cl eared or approved by theA. This as say has been valida heron pursuant to the CLIA regulations and is used for clinic al purposes. EARL (test code = FASTING:NOFASTING: EARL) NO RAC (test code = Performing RAC) Organization Information: Site ID: [facility] Name: [facility] Address: [address] [place] [address] Director: Mika Ovlera M.D. [facility] with platelet and [id number] 13:01:00 Test Item Value Reference Range Interpretation Comments WBC (test code = 5.4 See_Comment [Automated 9791-2) message] The system which generated this result transmitted reference range : 3.8 - 10.8 Thousand/uL. Th e reference range was not used to interpret this result as normal/abnormal . RBC (test code = 4.66 See_Comment [Automated 518-8) message] The system which generated this result transmitted reference range : 3.80 - 5.10 Million/uL. The reference range was not used to interpret this result as normal/abnormal . HGB (test code = 12.8 g/dL 11.7-15.5 718-7) HCT (test code = 40.2 % 35.0-45.0 4544-3) MCV (test code = 86.3 fL 80.0-100.0 787-2) MCH (test code = 27.5 pg 27.0-33.0 785-6) MCHC (test code = 31.8 g/dL 32.0-36.0 L 786-4) RDW (test code = 13.6 % 11.0-15.0 788-0) Platelet count (test 321 See_Comment [Autom ated code = 777-3) message] The system which generated this result transmitted reference range : 140 - 400 Thousand/uL. Th e reference range was not used to interpret this result as normal/abnormal . MPV (test code = 9.4 fL 7.5-12.5 776-5) Neutrophils, 3580 See_Comment [Automated absolute (test code message] The = 751-8) system which generated this result transmitted reference range : 1,500 - 7,800 cells/uL. The reference range was not used to interpret this result as normal/abnormal . Lymphocytes, 1166 See_Comment [Automated absolute (test code message] The = 731-0) system which generated this result transmitted reference range : 850 - 3,900 cells/uL. The reference range was not used to interpret this result as normal/abnormal . Monocytes, absolute 524 See_Comment [Automa heron (test code = 742-7) message] The system which generated this result transmitted reference range : 200 - 950 cells/uL. The reference range was not used to interpret this result as normal/abnormal . Eosinophils, 119 See_Comment [Automated absolute (test code message] The = 711-2) system which generated this result transmitted reference range : 15 - 500 cells/uL. The reference range was not used to interpret this result as normal/abnormal . Basophils, absolute 11 See_Comment [Automa heron (test code = 704-7) message] The system which generated this result transmitted reference range : 0 - 200 cells/u L. The reference range was not used to interpr et this result as normal/abnormal . Neutrophils (test 66.3 % code = 770-8) Lymphocytes (test 21.6 % code = 736-9) Monocytes (test code 9.7 % = 5905-5) Eosinophils (test 2.2 % code = 713-8) Basophils + RC (test 0.2 % code = 706-2) EARL (test code = FASTING:NOFASTING: EARL) NO RAC (test code = Performing RAC) Organization Information: Site ID: [facility] Name: [facility] Address: [address] [place] [address] Director: Krunal Pettit Lab Interpretation Abnormal (test code = 27879-4) [place] [facility] [id number] 14:02:00 RUN DATE: 12/19/19 [place] [facility] *LIVE* PAGE 1 RUN TIME: 1402 Specimen Inquiry RUN USER: INTERFACE PATIENT: SABINE GRACE LOC: Anup4SMSO U #: [id number] AGE/SX: 44/F ROOM: [facility] RE12/09/19REG DR: Lance Munguia MD : 75 BED: 1 DIS: 12/19/19 STATUS: DIS IN TLOC: SPEC #: [id number] RECD: 12/15/19 STATUS: DOTTY ROJAS #: [id number] JOSIE: 12/15/[address] [facility] [address]: Lance Munguia MD ENTERED: 12/19/19 SP TYPE: SURG SPEC OTHR DR: No Primary or Family Physician Self Referred Jocelynn Mukherjee MD, Khoi H MD Fuke,Alli Gunter MD, MD,Deanna Carmona MD, MDORDERED: GM LEVEL 4 CODES: W14277 - ESOPHAGUS, NOS [id number] - SMALL INTESTINE COPIES TO: No Primary or Family Physician Self Referred Jocelynn Mukherjee MD [address] [place] [address] Silvino Guerrero MD [address] [place], [place] [address] Nish To MD [address] [facility] [address] [place] [address] Alli Campbell MD [address] [place], [place] [address] OTHER PHONE [phone] (CELL) Edward Sepulveda MD [address] [place] [phone] CONTINUED ON NEXT PAGE R UN DATE: 12/19/19 [place] [facility] *LIVE* PAGE 2 RUN TIME: 1402 Specimen Inquiry RUN USER: INTERFACE SPEC #: [id number] PATIENT: SABINE GRACE #[id number] (Cont inued) COPIES TO: (Continued) Deanna Queen MD [address] [place] [address] Lance Munguia MD [address] [place] [id number] PROCEDURES: LEVEL 4 (Incomplete) TISSUES: 1. SMALL INTESTINE, NOS - Small intestine, jejunum, bx. 2. ESOPHAGUS, NOS - Esophagus, GE junction, bx. FINAL DIAGNOSIS Small intestine, jejunum, bx.: Intact villous architecture, no evidence of celiac sprue. 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 GROSS AND MICROSCOPIC MICROSCOPIC EXAMINATION: [...] metaplasia) seen in the biopsy may be containers sales representative of Muir's esophagus if biopsies are derived from the tubular esophagus in the setting of appropriate endoscopic features. CONTINUED ON NEXT PAGE RUN DATE: 12/19/19 [place] [facility]*LIVE* PAGE 3 RUN TIME: 1402 Specimen Inquiry RUN USER: INTERFACE --SPEC #: [id number] PATIENT: SABINE GRACE Peggy #[id number] (Continued) POST-OP DIAGNOSIS GE junction polyp, status post gastric bypass PRE-OP DIAGNOSIS Gastrointestinal bleed REVIEWED BY: FLAKITO Signed SIGNATURE ON FILE Balta Helm DO 12/19/19 [id number] --------- --- END OF REPORT HGB [id number] 15:12:00 Test Item Value Reference Range Interpretation Comments HEMOGLOBIN (test code = HGB) 10.0 g/dL 11.0-15.0 L HEMATOCRIT (test code = HCT) 32.7 % 33.0-45.0 L CBC W/AUTO [id number] 09:31:00 Test Item Value Reference Range Interpretation Comments WHITE BLOOD CELL (test code = 5.05 x10 3/uL 4.5-11.0 N WBC) RED BLOOD CELL (test code = 3.24 x10 6/uL 3.54-5.02 L RBC) HEMOGLOBIN (test code = HGB) 9.9 g/dL 11.0-15.0 L HEMATOCRIT (test code = HCT) 31.5 % 33.0-45.0 L MEAN CELL VOLUME (test code = 97.2 fL 81.0-99.0 N MCV) MEAN CELL HGB (test code = MCH) 30.6 pg 27.0-33.0 N MEAN CELL HGB CONCETRATION 31.4 g/dL 33.0-37.0 L (test code = MCHC) RED CELL DISTRIBUTION WIDTH CV 19.1 % 11.5-14.5 H (test code = RDW) RED CELL DISTRIBUTION WIDTH SD 60.5 fL 37.0-54.0 H (test code = RDW-SD) PLATELET COUNT (test code = 178 x10 3/uL 150-400 N PLT) MEAN PLATELET VOLUME (test code 9.8 fL 7.0-9.0 H = MPV) NEUTROPHIL % (test code = NT%) 71.9 % 56.0-77.0 N IMMATURE GRANULOCYTE % (test 0.2 % 0.0-2.0 N code = IG%) LYMPHOCYTE % (test code = LY%) 15.4 % 14.0-32.0 N MONOCYTE % (test code = MO%) 8.5 % 4.8-9.0 N EOSINOPHIL % (test code = EO%) 3.8 % 0.3-3.7 H BASOPHIL % (test code = BA%) 0.2 % 0.0-2.0 N NUCLEATED RBC % (test code = 0.0 % 0-0 N NRBC%) NEUTROPHIL # (test code = NT#) 3.63 x10 3/uL 2.0-7.6 N IMMATURE GRANULOCYTE # (test 0.01 x10 3/uL 0.00-0.03 N code = IG#) LYMPHOCYTE # (test code = LY#) 0.78 x10 3/uL 1.0-3.8 L MONOCYTE # (test code = MO#) 0.43 x10 3/uL 0.1-0.8 N EOSINOPHIL # (test code = EO#) 0.19 x10 3/uL 0.0-0.2 N BASOPHIL # (test code = BA#) 0.01 x10 3/uL 0.0-0.2 N NUCLEATED RBC # (test code = 0.00 x10 3/uL 0.0-0.1 N NRBC#) MANUAL DIFF REQUIRED (test code NO = MDIFF) BASIC METABOLIC [id number] 08:03:00 Test Item Value Reference Range Interpretation Comments SODIUM (test code = NA) 143 mEq/L 134-147 N POTASSIUM (test code = 3.5 mEq/L 3.4-5.0 N K) CHLORIDE (test code = 112 mEq/L 100-108 H CL) CARBON DIOXIDE (test 23 mEq/L 21-33 N code = CO2) ANION GAP (test code = 12 0-20 N GAP) GLUCOSE (test code = 74 mg/dL 70-110 N GLU) BLOOD UREA NITROGEN 8 mg/dL 7-18 N (test code = BUN) GLOMERULAR FILTRATION 173.4 95-105 H Units of measure = RATE (test code = GFR) ml/mi n/1.73 m2 CREATININE (test code = 0.4 mg/dL 0.6-1.3 L CREAT) CALCIUM (test code = 7.9 mg/dL 8.0-10.5 L CA) [id number] 08:03:00 Test Item Value Reference Range Interpretation Comments MAGNESIUM (test code = MAG) 2.10 mg/dL 1.8-2.4 N CBC W/AUTO [id number] 07:41:00 Test Item Value Reference Range Interpretation Comments WHITE BLOOD CELL (test code = 7.16 x10 3/uL 4.5-11.0 N WBC) RED BLOOD CELL (test code = 2.92 x10 6/uL 3.54-5.02 L RBC) HEMOGLOBIN (test code = HGB) 8.8 g/dL 11.0-15.0 L HEMATOCRIT (test code = HCT) 28.8 % 33.0-45.0 L MEAN CELL VOLUME (test code = 98.6 fL 81.0-99.0 N MCV) MEAN CELL HGB (test code = MCH) 30.1 pg 27.0-33.0 N MEAN CELL HGB CONCETRATION 30.6 g/dL 33.0-37.0 L (test code = MCHC) RED CELL DISTRIBUTION WIDTH CV 18.1 % 11.5-14.5 H (test code = RDW) RED CELL DISTRIBUTION WIDTH SD 54.8 fL 37.0-54.0 H (test code = RDW-SD) PLATELET COUNT (test code = 173 x10 3/uL 150-400 N PLT) MEAN PLATELET VOLUME (test code 10.1 fL 7.0-9.0 H = MPV) NEUTROPHIL % (test code = NT%) 71.2 % 56.0-77.0 N IMMATURE GRANULOCYTE % (test 0.7 % 0.0-2.0 N code = IG%) LYMPHOCYTE % (test code = LY%) 17.6 % 14.0-32.0 N MONOCYTE % (test code = MO%) 8.0 % 4.8-9.0 N EOSINOPHIL % (test code = EO%) 2.4 % 0.3-3.7 N BASOPHIL % (test code = BA%) 0.1 % 0.0-2.0 N NUCLEATED RBC % (test code = 0.0 % 0-0 N NRBC%) NEUTROPHIL # (test code = NT#) 5.10 x10 3/uL 2.0-7.6 N IMMATURE GRANULOCYTE # (test 0.05 x10 3/uL 0.00-0.03 H code = IG#) LYMPHOCYTE # (test code = LY#) 1.26 x10 3/uL 1.0-3.8 N MONOCYTE # (test code = MO#) 0.57 x10 3/uL 0.1-0.8 N EOSINOPHIL # (test code = EO#) 0.17 x10 3/uL 0.0-0.2 N BASOPHIL # (test code = BA#) 0.01 x10 3/uL 0.0-0.2 N NUCLEATED RBC # (test code = 0.00 x10 3/uL 0.0-0.1 N NRBC#) MANUAL DIFF REQUIRED (test code NO = MDIFF) HCG SERUM [id number] 10:08:00 Test Item Value Reference Range Interpretation Comments HCG SERUM QUAL (test code = SERUM NEGATIVE NEGATIVE HCGQL) PROTHROMBIN [id number] 09:59:00 Test Item Value Reference Range Interpretation Comments PROTHROMBIN TIME 12.2 SECONDS 9.3-12.9 N PATIENT (test code = PTP) INTERNATIONAL NORMAL 1.1 0.8-1.2 N TARGET RATIO (test code = INR BY IN DICATION INR) Indication INR1. Prophyl axis of venous thrombos is 2.0 - 3. 0 (orthopedic swathi ashu), Prophylaxis of venous thrombos is (other than hig h-risk surgery), Aliza tment of Deep Vein Thrombosis/Pulm onary Embolism, Preve ntion of systemic emb olism - Tissue heart va lves, Acute Myocardia l Infarction (to prevent systemic embo lism), Valvular heart disease, Atri al Fibrillation, Bileaflet mecha nical valve in aortic position.2. Mec hanical prosthetic valv es (high risk), 2.5 - 3.5 Presence of Lupus Anticoagu lant or Antiphospholi pid Antibodies, Pre vention of systemic e mbolism - Acute Myocard ial Infarction (t o prevent recurre nt infarct). THROMBOPLASTIN TIME [id number] 09:59:00 Test Item Value Reference Range Interpretation Comments THROMBOPLASTIN TIME 33.1 Seconds 25.0-39.5 N Ther apeutic PARTIAL (test code = Range: 50.4 - 88.3 PTT) Seconds Effective 02/21/2019 COMPREHENSIVE METABOLIC [id number] 07:05:00 Test Item Value Reference Range Interpretation Comments SODIUM (test code = NA) 144 mEq/L 134-147 N POTASSIUM (test code = 3.3 mEq/L 3.4-5.0 L K) CHLORIDE (test code = 111 mEq/L 100-108 H CL) CARBON DIOXIDE (test 25 mEq/L 21-33 N code = CO2) ANION GAP (test code = 11 0-20 N GAP) GLUCOSE (test code = 89 mg/dL 70-110 N GLU) BLOOD UREA NITROGEN 7 mg/dL 7-18 (test code = BUN) GLOMERULAR FILTRATION 134.0 95-105 H Units of measure = RATE (test code = GFR) ml/mi n/1.73 m2 CREATININE (test code = 0.5 mg/dL 0.6-1.3 L CREAT) TOTAL PROTEIN (test 4.8 g/dL 6.4-8.2 L code = PROT) ALBUMIN (test code = 2.10 g/dL 3.4-5.0 L ALB) CALCIUM (test code = 7.2 mg/dL 8.0-10.5 L CA) BILIRUBIN TOTAL (test < 0.1 MG/DL <1.5 code = BILT) SGOT/AST (test code = 27 IUnit/L 15-37 AST) SGPT/ALT (test code = 21 IUnit/L 15-65 N ALT) ALKALINE PHOSPHATASE 78 IUnit/L 20-125 N TOTAL (test code = ALKP) CBC W/AUTO [id number] 06:54:00 Test Item Value Reference Range Interpretation Comments WHITE BLOOD CELL (test code = 7.16 x10 3/uL 4.5-11.0 N WBC) RED BLOOD CELL (test code = 2.96 x10 6/uL 3.54-5.02 L RBC) HEMOGLOBIN (test code = HGB) 9.2 g/dL 11.0-15.0 L HEMATOCRIT (test code = HCT) 28.5 % 33.0-45.0 L MEAN CELL VOLUME (test code = 96.3 fL 81.0-99.0 N MCV) MEAN CELL HGB (test code = MCH) 31.1 pg 27.0-33.0 N MEAN CELL HGB CONCETRATION 32.3 g/dL 33.0-37.0 L (test code = MCHC) RED CELL DISTRIBUTION WIDTH CV 17.2 % 11.5-14.5 H (test code = RDW) RED CELL DISTRIBUTION WIDTH SD 52.1 fL 37.0-54.0 N (test code = RDW-SD) PLATELET COUNT (test code = 197 x10 3/uL 150-400 N PLT) MEAN PLATELET VOLUME (test code 9.9 fL 7.0-9.0 H = MPV) NEUTROPHIL % (test code = NT%) 65.4 % 56.0-77.0 N IMMATURE GRANULOCYTE % (test 1.3 % 0.0-2.0 N code = IG%) LYMPHOCYTE % (test code = LY%) 20.7 % 14.0-32.0 N MONOCYTE % (test code = MO%) 9.2 % 4.8-9.0 H EOSINOPHIL % (test code = EO%) 3.1 % 0.3-3.7 N BASOPHIL % (test code = BA%) 0.3 % 0.0-2.0 N NUCLEATED RBC % (test code = 1.0 % 0-0 H NRBC%) NEUTROPHIL # (test code = NT#) 4.69 x10 3/uL 2.0-7.6 N IMMATURE GRANULOCYTE # (test 0.09 x10 3/uL 0.00-0.03 H code = IG#) LYMPHOCYTE # (test code = LY#) 1.48 x10 3/uL 1.0-3.8 N MONOCYTE # (test code = MO#) 0.66 x10 3/uL 0.1-0.8 N EOSINOPHIL # (test code = EO#) 0.22 x10 3/uL 0.0-0.2 H BASOPHIL # (test code = BA#) 0.02 x10 3/uL 0.0-0.2 N NUCLEATED RBC # (test code = 0.07 x10 3/uL 0.0-0.1 N NRBC#) MANUAL DIFF REQUIRED (test code NO = MDIFF) HGB [id number] 01:33:00 Test Item Value Reference Range Interpretation Comments HEMOGLOBIN (test code = HGB) 9.0 g/dL 11.0-15.0 L HEMATOCRIT (test code = HCT) 28.4 % 33.0-45.0 L COMPREHENSIVE METABOLIC [id number] 04:43:00 Test Item Value Reference Range Interpretation Comments SODIUM (test code = NA) 142 mEq/L 134-147 N POTASSIUM (test code = 3.4 mEq/L 3.4-5.0 N K) CHLORIDE (test code = 112 mEq/L 100-108 H CL) CARBON DIOXIDE (test 25 mEq/L 21-33 N code = CO2) ANION GAP (test code = 8 0-20 N GAP) GLUCOSE (test code = 91 mg/dL 70-110 N GLU) BLOOD UREA NITROGEN 14 mg/dL 7-18 N (test code = BUN) GLOMERULAR FILTRATION 90.9 95-105 L Units of measure = RATE (test code = GFR) ml/mi n/1.73 m2 CREATININE (test code = 0.7 mg/dL 0.6-1.3 CREAT) TOTAL PROTEIN (test 4.6 g/dL 6.4-8.2 L code = PROT) ALBUMIN (test code = 2.10 g/dL 3.4-5.0 L ALB) CALCIUM (test code = 7.1 mg/dL 8.0-10.5 L CA) BILIRUBIN TOTAL (test 0.2 MG/DL <1.5 N code = BILT) SGOT/AST (test code = 14 IUnit/L 15-37 L AST) SGPT/ALT (test code = 17 IUnit/L 15-65 N ALT) ALKALINE PHOSPHATASE 64 IUnit/L 20-125 N TOTAL (test code = ALKP) CBC W/AUTO [id number] 04:20:00 Test Item Value Reference Range Interpretation Comments WHITE BLOOD CELL (test code = 8.86 x10 3/uL 4.5-11.0 N WBC) RED BLOOD CELL (test code = 2.50 x10 6/uL 3.54-5.02 L RBC) HEMOGLOBIN (test code = HGB) 7.4 g/dL 11.0-15.0 L HEMATOCRIT (test code = HCT) 23.4 % 33.0-45.0 L MEAN CELL VOLUME (test code = 93.6 fL 81.0-99.0 N MCV) MEAN CELL HGB (test code = MCH) 29.6 pg 27.0-33.0 N MEAN CELL HGB CONCETRATION 31.6 g/dL 33.0-37.0 L (test code = MCHC) RED CELL DISTRIBUTION WIDTH CV 17.6 % 11.5-14.5 H (test code = RDW) RED CELL DISTRIBUTION WIDTH SD 54.2 fL 37.0-54.0 H (test code = RDW-SD) PLATELET COUNT (test code = 177 x10 3/uL 150-400 N PLT) MEAN PLATELET VOLUME (test code 9.6 fL 7.0-9.0 H = MPV) NEUTROPHIL % (test code = NT%) 68.6 % 56.0-77.0 N IMMATURE GRANULOCYTE % (test 1.1 % 0.0-2.0 N code = IG%) LYMPHOCYTE % (test code = LY%) 20.4 % 14.0-32.0 N MONOCYTE % (test code = MO%) 6.7 % 4.8-9.0 N EOSINOPHIL % (test code = EO%) 3.0 % 0.3-3.7 N BASOPHIL % (test code = BA%) 0.2 % 0.0-2.0 N NUCLEATED RBC % (test code = 0.7 % 0-0 H NRBC%) NEUTROPHIL # (test code = NT#) 6.07 x10 3/uL 2.0-7.6 N IMMATURE GRANULOCYTE # (test 0.10 x10 3/uL 0.00-0.03 H code = IG#) LYMPHOCYTE # (test code = LY#) 1.81 x10 3/uL 1.0-3.8 N MONOCYTE # (test code = MO#) 0.59 x10 3/uL 0.1-0.8 N EOSINOPHIL # (test code = EO#) 0.27 x10 3/uL 0.0-0.2 H BASOPHIL # (test code = BA#) 0.02 x10 3/uL 0.0-0.2 N NUCLEATED RBC # (test code = 0.06 x10 3/uL 0.0-0.1 N NRBC#) MANUAL DIFF REQUIRED (test code NO = MDIFF) - CTA ABD PEL W [id number] 21:11:00 Name: BRETTSABINE [facility] : 1975 Age/S: 44 / F [address] [place] [address] Unit #: [id number] Loc: [place] [id number] Phys: Willis Patel DO Acct: [id number] Dis Date: Status: ADM IN PHONE #: [phone] Exam Date: 12/13/20192027 FAX #: [phone] Reason: BRIGHT RED BLOOD IN TOLIET. EXAMS: CPTCODE: [id number] CTA ABD PEL W CONT [id number] Clinical Indication: BRIGHT RED BLOOD IN TOILET. Comparison: CT abdomen pelvis 12/09/2019 TECHNIQUE: Helical imaging was performed after injection of IV contrast, from the lung base through the symphysis with multiplanar reformations obtained. IV CONTRAST: [...] 1 Signed Report (CONTINUED) Name: SABINE GRACE [facility] : 1975 Age/S: 44 / F [address] [place] [address] Unit #: [id number] Loc: [place], [place] [address] Phys: Willis Patel DO Acct: [id number] Dis Date: Status: ADM IN PHONE #: [phone] Exam Date: FAX #: [phone] Reason: BRIGHT RED BLOOD IN TOLIET. EXAMS: CPT CODE: [id number] CTA ABD PEL WCONT 10245 <Continued> PELVIS: There are no pelvic masses. The [...] changes of gastroplasty. 5. Colonic diverticulosis. SL: QUEH at 2110 Reported and signed by: Han Quinones M.D. CC: Lance Munguia MD; Willis Patel DO Technologist:RT James(R)(CT) CTDI: DLP: Trnscb Date/Time: 12/13/2019 (2110) [email or web address] Orig Print D/T: S: 12/13/2019 (2113) PAGE 2 Signed Report HGB [id number] 18:54:00 Test Item Value Reference Range Interpretation Comments HEMOGLOBIN (test code = HGB) 7.6 g/dL 11.0-15.0 L HEMATOCRIT (test code = HCT) 23.6 % 33.0-45.0 L HGB [id number] 12:53:00 Test Item Value Reference Range Interpretation Comments HEMOGLOBIN (test code = HGB) 8.7 g/dL 11.0-15.0 L HEMATOCRIT (test code = HCT) 26.6 % 33.0-45.0 L BASIC METABOLIC [id number] 07:02:00 Test Item Value Reference Range Interpretation Comments SODIUM (test code = NA) 140 mEq/L 134-147 N POTASSIUM (test code = 3.5 mEq/L 3.4-5.0 N K) CHLORIDE (test code = 110 mEq/L 100-108 H CL) CARBON DIOXIDE (test 26 mEq/L 21-33 N code = CO2) ANION GAP (test code = 8 0-20 N GAP) GLUCOSE (test code = 97 mg/dL 70-110 N GLU) BLOOD UREA NITROGEN 12 mg/dL 7-18 (test code = BUN) GLOMERULAR FILTRATION 173.4 95-105 H Units of measure = RATE (test code = GFR) ml/mi n/1.73 m2 CREATININE (test code = 0.4 mg/dL 0.6-1.3 L CREAT) CALCIUM (test code = 7.3 mg/dL 8.0-10.5 L CA) [id number] 07:02:00 Test Item Value Reference Range Interpretation Comments PHOSPHOROUS (test code = PHOS) 2.8 MG/DL 2.5-4.9 N [id number] 07:02:00 Test Item Value Reference Range Interpretation Comments MAGNESIUM (test code = MAG) 2.30 mg/dL 1.8-2.4 N BASIC METABOLIC [id number] 06:56:00 Test Item Value Reference Range Interpretation Comments SODIUM (test code = NA) 140 mEq/L 134-147 N POTASSIUM (test code = K) 3.5 mEq/L 3.4-5.0 N CHLORIDE (test code = CL) 110 mEq/L 100-108 H CARBON DIOXIDE (test code = CO2) 26 mEq/L 21-33 N ANION GAP (test code = GAP) 8 0-20 N GLUCOSE (test code = GLU) 97 mg/dL 70-110 N BLOOD UREA NITROGEN (test code = 12 mg/dL 7-18 BUN) GLOMERULAR FILTRATION RATE (test 95-105 code = GFR) CREATININE (test code = CREAT) mg/dL 0.6-1.3 CALCIUM (test code = CA) 7.3 mg/dL 8.0-10.5 L [id number] 06:56:00 Test Item Value Reference Range Interpretation Comments PHOSPHOROUS (test code = PHOS) MG/DL 2.5-4.9 [id number] 06:56:00 Test Item Value Reference Range Interpretation Comments MAGNESIUM (test code = MAG) 2.30 mg/dL 1.8-2.4 N LACTIC [id number] 06:51:00 Test Item Value Reference Range Interpretation Comments LACTIC ACID (test code = LACT) 0.6 mmol/L 0.4-1.9 N CBC W/AUTO [id number] 06:37:00 Test Item Value Reference Range Interpretation Comments WHITE BLOOD CELL (test code = 6.52 x10 3/uL 4.5-11.0 N WBC) RED BLOOD CELL (test code = 2.71 x10 6/uL 3.54-5.02 L RBC) HEMOGLOBIN (test code = HGB) 8.2 g/dL 11.0-15.0 L HEMATOCRIT (test code = HCT) 24.7 % 33.0-45.0 L MEAN CELL VOLUME (test code = 91.1 fL 81.0-99.0 N MCV) MEAN CELL HGB (test code = MCH) 30.3 pg 27.0-33.0 N MEAN CELL HGB CONCETRATION 33.2 g/dL 33.0-37.0 N (test code = MCHC) RED CELL DISTRIBUTION WIDTH CV 16.9 % 11.5-14.5 H (test code = RDW) RED CELL DISTRIBUTION WIDTH SD 51.6 fL 37.0-54.0 N (test code = RDW-SD) PLATELET COUNT (test code = 158 x10 3/uL 150-400 N PLT) MEAN PLATELET VOLUME (test code 9.7 fL 7.0-9.0 H = MPV) NEUTROPHIL % (test code = NT%) 73.7 % 56.0-77.0 N IMMATURE GRANULOCYTE % (test 0.8 % 0.0-2.0 N code = IG%) LYMPHOCYTE % (test code = LY%) 16.0 % 14.0-32.0 N MONOCYTE % (test code = MO%) 7.2 % 4.8-9.0 N EOSINOPHIL % (test code = EO%) 2.1 % 0.3-3.7 N BASOPHIL % (test code = BA%) 0.2 % 0.0-2.0 N NUCLEATED RBC % (test code = 0.5 % 0-0 H NRBC%) NEUTROPHIL # (test code = NT#) 4.81 x10 3/uL 2.0-7.6 N IMMATURE GRANULOCYTE # (test 0.05 x10 3/uL 0.00-0.03 H code = IG#) LYMPHOCYTE # (test code = LY#) 1.04 x10 3/uL 1.0-3.8 N MONOCYTE # (test code = MO#) 0.47 x10 3/uL 0.1-0.8 N EOSINOPHIL # (test code = EO#) 0.14 x10 3/uL 0.0-0.2 N BASOPHIL # (test code = BA#) 0.01 x10 3/uL 0.0-0.2 N NUCLEATED RBC # (test code = 0.03 x10 3/uL 0.0-0.1 N NRBC#) MANUAL DIFF REQUIRED (test code NO = MDIFF) HGB [id number] 01:13:00 Test Item Value Reference Range Interpretation Comments HEMOGLOBIN (test code = HGB) 6.1 g/dL 11.0-15.0 LL HEMATOCRIT (test code = HCT) 18.7 % 33.0-45.0 L HGB [id number] 18:18:00 Test Item Value Reference Range Interpretation Comments HEMOGLOBIN (test code = HGB) 7.6 g/dL 11.0-15.0 L HEMATOCRIT (test code = HCT) 23.6 % 33.0-45.0 L PROTHROMBIN [id number] 07:21:00 Test Item Value Reference Range Interpretation Comments PROTHROMBIN TIME 13.2 SECONDS 9.3-12.9 H PATIENT (test code = PTP) INTERNATIONAL NORMAL 1.2 0.8-1.2 N TARGET RATIO (test code = INR BY IN DICATION INR) Indication INR1. Prophyl axis of venous thrombos is 2.0 - 3. 0 (orthopedic swathi ashu), Prophylaxis of venous thrombos is (other than hig h-risk surgery), Aliza tment of Deep Vein Thrombosis/Pulm onary Embolism, Preve ntion of systemic emb olism - Tissue heart va lves, Acute Myocardia l Infarction (to prevent systemic embo lism), Valvular heart disease, Atri al Fibrillation, Bileaflet mecha nical valve in aortic position.2. Mec hanical prosthetic valv es (high risk), 2.5 - 3.5 Presence of Lupus Anticoagu lant or Antiphospholi pid Antibodies, Pre vention of systemic e mbolism - Acute Myocard ial Infarction (t o prevent recurre nt infarct). THROMBOPLASTIN TIME [id number] 07:21:00 Test Item Value Reference Range Interpretation Comments THROMBOPLASTIN TIME 25.7 Seconds 25.0-39.5 N Ther apeutic PARTIAL (test code = Range: 50.4 - 88.3 PTT) Seconds Effective 02/21/2019 CBC W/AUTO [id number] 06:57:00 Test Item Value Reference Range Interpretation Comments WHITE BLOOD CELL (test code = 5.40 x10 3/uL 4.5-11.0 N WBC) RED BLOOD CELL (test code = 2.16 x10 6/uL 3.54-5.02 L RBC) HEMOGLOBIN (test code = HGB) 6.6 g/dL 11.0-15.0 L HEMATOCRIT (test code = HCT) 19.7 % 33.0-45.0 L MEAN CELL VOLUME (test code = 91.2 fL 81.0-99.0 N MCV) MEAN CELL HGB (test code = MCH) 30.6 pg 27.0-33.0 N MEAN CELL HGB CONCETRATION 33.5 g/dL 33.0-37.0 N (test code = MCHC) RED CELL DISTRIBUTION WIDTH CV 18.2 % 11.5-14.5 H (test code = RDW) RED CELL DISTRIBUTION WIDTH SD 55.9 fL 37.0-54.0 H (test code = RDW-SD) PLATELET COUNT (test code = 160 x10 3/uL 150-400 N PLT) MEAN PLATELET VOLUME (test code 9.4 fL 7.0-9.0 H = MPV) NEUTROPHIL % (test code = NT%) 67.4 % 56.0-77.0 N IMMATURE GRANULOCYTE % (test 0.6 % 0.0-2.0 N code = IG%) LYMPHOCYTE % (test code = LY%) 21.3 % 14.0-32.0 N MONOCYTE % (test code = MO%) 6.1 % 4.8-9.0 N EOSINOPHIL % (test code = EO%) 4.4 % 0.3-3.7 H BASOPHIL % (test code = BA%) 0.2 % 0.0-2.0 N NUCLEATED RBC % (test code = 0.0 % 0-0 N NRBC%) NEUTROPHIL # (test code = NT#) 3.64 x10 3/uL 2.0-7.6 N IMMATURE GRANULOCYTE # (test 0.03 x10 3/uL 0.00-0.03 N code = IG#) LYMPHOCYTE # (test code = LY#) 1.15 x10 3/uL 1.0-3.8 N MONOCYTE # (test code = MO#) 0.33 x10 3/uL 0.1-0.8 N EOSINOPHIL # (test code = EO#) 0.24 x10 3/uL 0.0-0.2 H BASOPHIL # (test code = BA#) 0.01 x10 3/uL 0.0-0.2 N NUCLEATED RBC # (test code = 0.00 x10 3/uL 0.0-0.1 N NRBC#) MANUAL DIFF REQUIRED (test code NO = MDIFF) BASIC METABOLIC [id number] 06:16:00 Test Item Value Reference Range Interpretation Comments SODIUM (test code = NA) 140 mEq/L 134-147 N POTASSIUM (test code = 3.7 mEq/L 3.4-5.0 N K) CHLORIDE (test code = 111 mEq/L 100-108 H CL) CARBON DIOXIDE (test 24 mEq/L 21-33 N code = CO2) ANION GAP (test code = 9 0-20 N GAP) GLUCOSE (test code = 93 mg/dL 70-110 N GLU) BLOOD UREA NITROGEN 8 mg/dL 7-18 (test code = BUN) GLOMERULAR FILTRATION 173.4 95-105 H Units of measure = RATE (test code = GFR) ml/mi n/1.73 m2 CREATININE (test code = 0.4 mg/dL 0.6-1.3 L CREAT) CALCIUM (test code = 7.4 mg/dL 8.0-10.5 L CA) [id number] 06:16:00 Test Item Value Reference Range Interpretation Comments PHOSPHOROUS (test code = PHOS) 2.9 MG/DL 2.5-4.9 N [id number] 06:16:00 Test Item Value Reference Range Interpretation Comments MAGNESIUM (test code = MAG) 2.30 mg/dL 1.8-2.4 CALCIUM [id number] 06:16:00 Test Item Value Reference Range Interpretation Comments CALCIUM IONIZED (test code = FILI) 1.13 MMOL/L 1.12-1.32 N BASIC METABOLIC [id number] 06:06:00 Test Item Value Reference Range Interpretation Comments SODIUM (test code = NA) mEq/L 134-147 POTASSIUM (test code = K) mEq/L 3.4-5.0 CHLORIDE (test code = CL) mEq/L 100-108 CARBON DIOXIDE (test code = CO2) mEq/L 21-33 ANION GAP (test code = GAP) 0-20 GLUCOSE (test code = GLU) mg/dL 70-110 BLOOD UREA NITROGEN (test code = BUN) mg/dL 7-18 GLOMERULAR FILTRATION RATE (test code 95-105 = GFR) CREATININE (test code = CREAT) mg/dL 0.6-1.3 CALCIUM (test code = CA) mg/dL 8.0-10.5 [id number] 06:06:00 Test Item Value Reference Range Interpretation Comments PHOSPHOROUS (test code = PHOS) MG/DL 2.5-4.9 [id number] 06:06:00 Test Item Value Reference Range Interpretation Comments MAGNESIUM (test code = MAG) mg/dL 1.8-2.4 CALCIUM [id number] 06:06:00 Test Item Value Reference Range Interpretation Comments CALCIUM IONIZED (test code = FILI) 1.13 MMOL/L 1.12-1.32 N HGB [id number] 00:56:00 Test Item Value Reference Range Interpretation Comments HEMOGLOBIN (test code = HGB) 7.7 g/dL 11.0-15.0 L HEMATOCRIT (test code = HCT) 23.4 % 33.0-45.0 L TOTAL IRON BINDING [id number] 00:54:00 Test Item Value Reference Range Interpretation Comments SERUM IRON (test code = IRON) 19 mcg/dL 35-150 L TOTAL IRON BINDING CAPACITY (test 319 mcg/dL 260-445 N code = TIBC) UIBC (test code = UIBC) 300 mcg/dL IRON SATURATION (test code = 6.0 % 14-34 L FESAT) VITAMIN [id number] 00:54:00 Test Item Value Reference Range Interpretation Comments VITAMIN B12 (test code = VITB12) 196 pg/mL 193-986 N [id number] 00:54:00 Test Item Value Reference Range Interpretation Comments FERRITIN (test code = NUBIA) 7.3 ng/mL 11.0-306.8 L HGB [id number] 18:24:00 Test Item Value Reference Range Interpretation Comments HEMOGLOBIN (test code = HGB) 7.5 g/dL 11.0-15.0 L HEMATOCRIT (test code = HCT) 23.3 % 33.0-45.0 L - NM ACUTE GI BLOOD [id number] 16:25:00 FAX: Alli Ross MD [phone] [place]: St: ADM FAX: Ami Lance Munguia [phone] Name: SABINE GRACE [facility] : 1975 Age/S: 44/F [address] [place] [address] Unit #: [id number] Loc: G.M325 [place] [address] Phys: Alli Campbell MD Acct: G [id number] Dis Date: Status: ADM IN PHONE #: [phone] Exam Date: 12/11/2019 1439 FAX #: [phone] Reason: gi bleed. EXAMS: CPT CODE: [id number] NM ACUTE GI BLOOD LOSS 95305 Nuclear medicine acute GI blood loss study. [...] Some linear photopenic defect is seen in the upper abdomen on some images. IMPRESSION: No scintigraphic evidence for active GI bleed. SL: ARNULFO at 1625 Reported and signed by: Noé Contreras M.D. CC: Alli Campbell MD; Lance Munguia MD Technologist: Najma Swanson, ARRT (N)(CT); ... Trnscrd Date/Time/By: 12/11/2019 (6515) : By: [email or web address] Orig Print D/T: S: 12/11/2019 (7362) PAGE 1 Signed ReportHGB [id number] 12:40:00 Test Item Value Reference Range Interpretation Comments HEMOGLOBIN (test code = HGB) 6.5 g/dL 11.0-15.0 L HEMATOCRIT (test code = HCT) 19.9 % 33.0-45.0 L BASIC METABOLIC [id number] 05:45:00 Test Item Value Reference Range Interpretation Comments SODIUM (test code = NA) 139 mEq/L 134-147 N POTASSIUM (test code = 3.6 mEq/L 3.4-5.0 N K) CHLORIDE (test code = 110 mEq/L 100-108 H CL) CARBON DIOXIDE (test 24 mEq/L 21-33 N code = CO2) ANION GAP (test code = 9 0-20 N GAP) GLUCOSE (test code = 96 mg/dL 70-110 N GLU) BLOOD UREA NITROGEN 12 mg/dL 7-18 (test code = BUN) GLOMERULAR FILTRATION 173.4 95-105 H Units of measure = RATE (test code = GFR) ml/mi n/1.73 m2 CREATININE (test code = 0.4 mg/dL 0.6-1.3 L CREAT) CALCIUM (test code = 7.2 mg/dL 8.0-10.5 L CA) [id number] 05:45:00 Test Item Value Reference Range Interpretation Comments PHOSPHOROUS (test code = PHOS) 2.4 MG/DL 2.5-4.9 L [id number] 05:45:00 Test Item Value Reference Range Interpretation Comments MAGNESIUM (test code = MAG) 1.90 mg/dL 1.8-2.4 N CALCIUM [id number] 05:45:00 Test Item Value Reference Range Interpretation Comments CALCIUM IONIZED (test code = FILI) 1.16 MMOL/L 1.12-1.32 N CBC W/AUTO [id number] 05:38:00 Test Item Value Reference Range Interpretation Comments WHITE BLOOD CELL (test code = 7.79 x10 3/uL 4.5-11.0 N WBC) RED BLOOD CELL (test code = 2.20 x10 6/uL 3.54-5.02 L RBC) HEMOGLOBIN (test code = HGB) 7.2 g/dL 11.0-15.0 L HEMATOCRIT (test code = HCT) 20.5 % 33.0-45.0 L MEAN CELL VOLUME (test code = 93.2 fL 81.0-99.0 N MCV) MEAN CELL HGB (test code = MCH) 32.7 pg 27.0-33.0 N MEAN CELL HGB CONCETRATION 35.1 g/dL 33.0-37.0 N (test code = MCHC) RED CELL DISTRIBUTION WIDTH CV 16.1 % 11.5-14.5 H (test code = RDW) RED CELL DISTRIBUTION WIDTH SD 53.3 fL 37.0-54.0 N (test code = RDW-SD) PLATELET COUNT (test code = 166 x10 3/uL 150-400 N PLT) MEAN PLATELET VOLUME (test code 9.8 fL 7.0-9.0 H = MPV) NEUTROPHIL % (test code = NT%) 67.9 % 56.0-77.0 N IMMATURE GRANULOCYTE % (test 0.4 % 0.0-2.0 N code = IG%) LYMPHOCYTE % (test code = LY%) 23.0 % 14.0-32.0 N MONOCYTE % (test code = MO%) 4.6 % 4.8-9.0 L EOSINOPHIL % (test code = EO%) 4.0 % 0.3-3.7 H BASOPHIL % (test code = BA%) 0.1 % 0.0-2.0 N NUCLEATED RBC % (test code = 0.0 % 0-0 N NRBC%) NEUTROPHIL # (test code = NT#) 5.29 x10 3/uL 2.0-7.6 N IMMATURE GRANULOCYTE # (test 0.03 x10 3/uL 0.00-0.03 N code = IG#) LYMPHOCYTE # (test code = LY#) 1.79 x10 3/uL 1.0-3.8 N MONOCYTE # (test code = MO#) 0.36 x10 3/uL 0.1-0.8 N EOSINOPHIL # (test code = EO#) 0.31 x10 3/uL 0.0-0.2 H BASOPHIL # (test code = BA#) 0.01 x10 3/uL 0.0-0.2 N NUCLEATED RBC # (test code = 0.00 x10 3/uL 0.0-0.1 N NRBC#) MANUAL DIFF REQUIRED (test code NO = MDIFF) BASIC METABOLIC [id number] 05:35:00 Test Item Value Reference Range Interpretation Comments SODIUM (test code = NA) mEq/L 134-147 POTASSIUM (test code = K) mEq/L 3.4-5.0 CHLORIDE (test code = CL) mEq/L 100-108 CARBON DIOXIDE (test code = CO2) mEq/L 21-33 ANION GAP (test code = GAP) 0-20 GLUCOSE (test code = GLU) mg/dL 70-110 BLOOD UREA NITROGEN (test code = BUN) mg/dL 7-18 GLOMERULAR FILTRATION RATE (test code 95-105 = GFR) CREATININE (test code = CREAT) mg/dL 0.6-1.3 CALCIUM (test code = CA) mg/dL 8.0-10.5 [id number] 05:35:00 Test Item Value Reference Range Interpretation Comments PHOSPHOROUS (test code = PHOS) MG/DL 2.5-4.9 [id number] 05:35:00 Test Item Value Reference Range Interpretation Comments MAGNESIUM (test code = MAG) mg/dL 1.8-2.4 CALCIUM [id number] 05:35:00 Test Item Value Reference Range Interpretation Comments CALCIUM IONIZED (test code = FILI) 1.16 MMOL/L 1.12-1.32 N HGB [id number] 00:19:00 Test Item Value Reference Range Interpretation Comments HEMOGLOBIN (test code = HGB) 7.2 g/dL 11.0-15.0 L HEMATOCRIT (test code = HCT) 21.5 % 33.0-45.0 L HGB [id number] 18:18:00 Test Item Value Reference Range Interpretation Comments HEMOGLOBIN (test code = HGB) 7.4 g/dL 11.0-15.0 L HEMATOCRIT (test code = HCT) 22.2 % 33.0-45.0 L HGB [id number] 14:07:00 Test Item Value Reference Range Interpretation Comments HEMOGLOBIN (test code = HGB) 7.8 g/dL 11.0-15.0 L HEMATOCRIT (test code = HCT) 23.1 % 33.0-45.0 L COMPREHENSIVE METABOLIC [id number] 07:21:00 Test Item Value Reference Range Interpretation Comments SODIUM (test code = NA) 141 mEq/L 134-147 N POTASSIUM (test code = 3.9 mEq/L 3.4-5.0 N K) CHLORIDE (test code = 113 mEq/L 100-108 H CL) CARBON DIOXIDE (test 23 mEq/L 21-33 N code = CO2) ANION GAP (test code = 9 0-20 N GAP) GLUCOSE (test code = 90 mg/dL 70-110 GLU) BLOOD UREA NITROGEN 20 mg/dL 7-18 H (test code = BUN) GLOMERULAR FILTRATION 173.4 95-105 H Units of measure = RATE (test code = GFR) ml/mi n/1.73 m2 CREATININE (test code = 0.4 mg/dL 0.6-1.3 L CREAT) TOTAL PROTEIN (test 4.2 g/dL 6.4-8.2 L code = PROT) ALBUMIN (test code = 2.00 g/dL 3.4-5.0 L ALB) CALCIUM (test code = 6.8 mg/dL 8.0-10.5 L CA) BILIRUBIN TOTAL (test 0.2 MG/DL <1.5 N code = BILT) SGOT/AST (test code = 15 IUnit/L 15-37 N AST) SGPT/ALT (test code = 21 IUnit/L 15-65 N ALT) ALKALINE PHOSPHATASE 61 IUnit/L 20-125 N TOTAL (test code = ALKP) [id number] 07:21:00 Test Item Value Reference Range Interpretation Comments PHOSPHOROUS (test code = PHOS) 3.0 MG/DL 2.5-4.9 N [id number] 07:21:00 Test Item Value Reference Range Interpretation Comments MAGNESIUM (test code = MAG) 1.90 mg/dL 1.8-2.4 N CALCIUM [id number] 07:21:00 Test Item Value Reference Range Interpretation Comments CALCIUM IONIZED (test code = FILI) 1.11 MMOL/L 1.12-1.32 L PROTHROMBIN [id number] 07:19:00 Test Item Value Reference Range Interpretation Comments PROTHROMBIN TIME 13.9 SECONDS 9.3-12.9 H PATIENT (test code = PTP) INTERNATIONAL NORMAL 1.3 0.8-1.2 H TARGET RATIO (test code = INR BY IN DICATION INR) Indication INR1. Prophyl axis of venous thrombos is 2.0 - 3. 0 (orthopedic swathi ashu), Prophylaxis of venous thrombos is (other than hig h-risk surgery), Aliza tment of Deep Vein Thrombosis/Pulm onary Embolism, Preve ntion of systemic emb olism - Tissue heart va lves, Acute Myocardia l Infarction (to prevent systemic embo lism), Valvular heart disease, Atri al Fibrillation, Bileaflet mecha nical valve in aortic position.2. Mec hanical prosthetic valv es (high risk), 2.5 - 3.5 Presence of Lupus Anticoagu lant or Antiphospholi pid Antibodies, Pre vention of systemic e mbolism - Acute Myocard ial Infarction (t o prevent recurre nt infarct). [id number] 07:14:00 Test Item Value Reference Range Interpretation Comments FERRITIN (test code = NUBIA) 6.8 ng/mL 11.0-306.8 L COMPREHENSIVE METABOLIC [id number] 07:14:00 Test Item Value Reference Range Interpretation Comments SODIUM (test code = NA) 141 mEq/L 134-147 N POTASSIUM (test code = K) 3.9 mEq/L 3.4-5.0 N CHLORIDE (test code = CL) 113 mEq/L 100-108 H CARBON DIOXIDE (test code = CO2) 23 mEq/L 21-33 N ANION GAP (test code = GAP) 9 0-20 N GLUCOSE (test code = GLU) 90 mg/dL 70-110 BLOOD UREA NITROGEN (test code = 20 mg/dL 7-18 H BUN) GLOMERULAR FILTRATION RATE (test 95-105 code = GFR) CREATININE (test code = CREAT) mg/dL 0.6-1.3 TOTAL PROTEIN (test code = PROT) g/dL 6.4-8.2 ALBUMIN (test code = ALB) g/dL 3.4-5.0 CALCIUM (test code = CA) 6.8 mg/dL 8.0-10.5 L BILIRUBIN TOTAL (test code = BILT) MG/DL <1.5 SGOT/AST (test code = AST) IUnit/L 15-37 SGPT/ALT (test code = ALT) IUnit/L 15-65 ALKALINE PHOSPHATASE TOTAL (test IUnit/L 20-125 code = ALKP) [id number] 07:14:00 Test Item Value Reference Range Interpretation Comments PHOSPHOROUS (test code = PHOS) MG/DL 2.5-4.9 [id number] 07:14:00 Test Item Value Reference Range Interpretation Comments MAGNESIUM (test code = MAG) mg/dL 1.8-2.4 CALCIUM [id number] 07:14:00 Test Item Value Reference Range Interpretation Comments CALCIUM IONIZED (test code = FILI) 1.11 MMOL/L 1.12-1.32 L COMPREHENSIVE METABOLIC [id number] 07:04:00 Test Item Value Reference Range Interpretation Comments SODIUM (test code = NA) mEq/L 134-147 POTASSIUM (test code = K) mEq/L 3.4-5.0 CHLORIDE (test code = CL) mEq/L 100-108 CARBON DIOXIDE (test code = CO2) mEq/L 21-33 ANION GAP (test code = GAP) 0-20 GLUCOSE (test code = GLU) mg/dL 70-110 BLOOD UREA NITROGEN (test code = mg/dL 7-18 BUN) GLOMERULAR FILTRATION RATE (test 95-105 code = GFR) CREATININE (test code = CREAT) mg/dL 0.6-1.3 TOTAL PROTEIN (test code = PROT) g/dL 6.4-8.2 ALBUMIN (test code = ALB) g/dL 3.4-5.0 CALCIUM (test code = CA) mg/dL 8.0-10.5 BILIRUBIN TOTAL (test code = BILT) MG/DL <1.5 SGOT/AST (test code = AST) IUnit/L 15-37 SGPT/ALT (test code = ALT) IUnit/L 15-65 ALKALINE PHOSPHATASE TOTAL (test IUnit/L 20-125 code = ALKP) [id number] 07:04:00 Test Item Value Reference Range Interpretation Comments PHOSPHOROUS (test code = PHOS) MG/DL 2.5-4.9 [id number] 07:04:00 Test Item Value Reference Range Interpretation Comments MAGNESIUM (test code = MAG) mg/dL 1.8-2.4 CALCIUM [id number] 07:04:00 Test Item Value Reference Range Interpretation Comments CALCIUM IONIZED (test code = FILI) 1.11 MMOL/L 1.12-1.32 L CBC W/AUTO [id number] 07:00:00 Test Item Value Reference Range Interpretation Comments WHITE BLOOD CELL (test code = 7.36 x10 3/uL 4.5-11.0 WBC) RED BLOOD CELL (test code = 2.66 x10 6/uL 3.54-5.02 L RBC) HEMOGLOBIN (test code = HGB) 8.4 g/dL 11.0-15.0 L HEMATOCRIT (test code = HCT) 24.5 % 33.0-45.0 L MEAN CELL VOLUME (test code = 92.1 fL 81.0-99.0 MCV) MEAN CELL HGB (test code = MCH) 31.6 pg 27.0-33.0 N MEAN CELL HGB CONCETRATION 34.3 g/dL 33.0-37.0 N (test code = MCHC) RED CELL DISTRIBUTION WIDTH CV 15.9 % 11.5-14.5 H (test code = RDW) RED CELL DISTRIBUTION WIDTH SD 53.3 fL 37.0-54.0 N (test code = RDW-SD) PLATELET COUNT (test code = 169 x10 3/uL 150-400 N PLT) MEAN PLATELET VOLUME (test code 9.4 fL 7.0-9.0 H = MPV) NEUTROPHIL % (test code = NT%) 69.1 % 56.0-77.0 N IMMATURE GRANULOCYTE % (test 0.3 % 0.0-2.0 N code = IG%) LYMPHOCYTE % (test code = LY%) 23.5 % 14.0-32.0 N MONOCYTE % (test code = MO%) 6.0 % 4.8-9.0 N EOSINOPHIL % (test code = EO%) 1.0 % 0.3-3.7 N BASOPHIL % (test code = BA%) 0.1 % 0.0-2.0 N NUCLEATED RBC % (test code = 0.0 % 0-0 N NRBC%) NEUTROPHIL # (test code = NT#) 5.09 x10 3/uL 2.0-7.6 N IMMATURE GRANULOCYTE # (test 0.02 x10 3/uL 0.00-0.03 N code = IG#) LYMPHOCYTE # (test code = LY#) 1.73 x10 3/uL 1.0-3.8 N MONOCYTE # (test code = MO#) 0.44 x10 3/uL 0.1-0.8 N EOSINOPHIL # (test code = EO#) 0.07 x10 3/uL 0.0-0.2 N BASOPHIL # (test code = BA#) 0.01 x10 3/uL 0.0-0.2 N NUCLEATED RBC # (test code = 0.00 x10 3/uL 0.0-0.1 N NRBC#) MANUAL DIFF REQUIRED (test code NO = MDIFF) HGB [id number] 21:21:00 Test Item Value Reference Range Interpretation Comments HEMOGLOBIN (test code = HGB) 6.6 g/dL 11.0-15.0 L HEMATOCRIT (test code = HCT) 19.8 % 33.0-45.0 L - XR CHEST 1 [id number] 20:18:00 FAX: Amari Wilson JR, MD [phone] [place]: St: [facility] FAX: Lance Giang [phone] Name: SABINE GRACE [facility] : 1975 Age/S: 44/F [address] [place] [address] Unit #: [id number] Loc: [address] [address] Phys: Amari Mendiola JR, MD Acct: [id number] Dis Date: Status: ADM IN PHONE #: [phone] Exam Date: 12/09/20191952 FAX #: [phone] Reason: POST CENTRAL LINE PLACEMENT RIGHT INTERNAL JUGU EXAMS: CPT CODE: [id number] XR CHEST 1 V [id number] Chest, single view dated 12/09/2019. HISTORY: GI [...] Amari Mendiola JR, MD; Lance Munguia MD Technologist: RT Santhosh(R) Trnscrd Date/Time/By: 12/09/2019 (2017) : By: JovanyM Orig Print D/T: S: 12/09/2019 (2020) PAGE 1 Signed ReportHGB [id number] 11:51:00 Test Item Value Reference Range Interpretation Comments HEMOGLOBIN (test code = HGB) 6.1 g/dL 11.0-15.0 LL HEMATOCRIT (test code = HCT) 19.1 % 33.0-45.0 L PROTHROMBIN [id number] 10:31:00 Test Item Value Reference Range Interpretation Comments PROTHROMBIN TIME 13.7 SECONDS 9.3-12.9 H PATIENT (test code = PTP) INTERNATIONAL NORMAL 1.3 0.8-1.2 H TARGET RATIO (test code = INR BY IN DICATION INR) Indication INR1. Prophyl axis of venous thrombos is 2.0 - 3. 0 (orthopedic swathi ashu), Prophylaxis of venous thrombos is (other than hig h-risk surgery), Aliza tment of Deep Vein Thrombosis/Pulm onary Embolism, Preve ntion of systemic emb olism - Tissue heart va lves, Acute Myocardia l Infarction (to prevent systemic embo lism), Valvular heart disease, Atri al Fibrillation, Bileaflet mecha nical valve in aortic position.2. Mec hanical prosthetic valv es (high risk), 2.5 - 3.5 Presence of Lupus Anticoagu lant or Antiphospholi pid Antibodies, Pre vention of systemic e mbolism - Acute Myocard ial Infarction (t o prevent recurre nt infarct). THROMBOPLASTIN TIME [id number] 10:31:00 Test Item Value Reference Range Interpretation Comments THROMBOPLASTIN TIME 25.8 Seconds 25.0-39.5 N Ther apeutic PARTIAL (test code = Range: 50.4 - 88.3 PTT) Seconds Effective 02/21/2019 BASIC METABOLIC [id number] 10:30:00 Test Item Value Reference Range Interpretation Comments SODIUM (test code = NA) mEq/L 134-147 POTASSIUM (test code = K) mEq/L 3.4-5.0 CHLORIDE (test code = CL) mEq/L 100-108 CARBON DIOXIDE (test code = CO2) mEq/L 21-33 ANION GAP (test code = GAP) 0-20 GLUCOSE (test code = GLU) mg/dL 70-110 BLOOD UREA NITROGEN (test code = BUN) mg/dL 7-18 GLOMERULAR FILTRATION RATE (test code 95-105 = GFR) CREATININE (test code = CREAT) mg/dL 0.6-1.3 CALCIUM (test code = CA) mg/dL 8.0-10.5 HEPATIC FUNCTION [id number] 10:30:00 Test Item Value Reference Range Interpretation Comments TOTAL PROTEIN (test code = PROT) g/dL 6.4-8.2 ALBUMIN (test code = ALB) g/dL 3.4-5.0 BILIRUBIN TOTAL (test code = BILT) MG/DL <1.5 BILIRUBIN DIRECT (test code = BILD) MG/DL 0.0-0.30 SGOT/AST (test code = AST) IUnit/L 15-37 SGPT/ALT (test code = ALT) IUnit/L 15-65 ALKALINE PHOSPHATASE TOTAL (test IUnit/L 20-125 code = ALKP) [id number] 10:30:00 Test Item Value Reference Range Interpretation Comments LIPASE (test code = LIP) IUnit/L 73-393 HCG SERUM [id number] 10:30:00 Test Item Value Reference Range Interpretation Comments HCG SERUM QUAL (test code = SERUM NEGATIVE NEGATIVE HCGQL) [id number] 10:30:00 Test Item Value Reference Range Interpretation Comments TROPONIN-I 0.025 ng/mL 0.000-0.045 N Negative: <= (test code = 0.045 Positive: TROPI) >= 0.046 Correl ation with serial results, other cardiac markers andclin ical findings is necessary to determine the clinicalsignifi cance of this result. Results using different metho dologies should not be c omparedto one another as dionte titative results may vivek y by method. BASIC METABOLIC [id number] 10:30:00 Test Item Value Reference Range Interpretation Comments SODIUM (test code = NA) 138 mEq/L 134-147 N POTASSIUM (test code = 3.5 mEq/L 3.4-5.0 N K) CHLORIDE (test code = 107 mEq/L 100-108 N CL) CARBON DIOXIDE (test 24 mEq/L 21-33 N code = CO2) ANION GAP (test code = 11 0-20 N GAP) GLUCOSE (test code = 123 mg/dL 70-110 H GLU) BLOOD UREA NITROGEN 24 mg/dL 7-18 H (test code = BUN) GLOMERULAR FILTRATION 108.6 95-105 H Units of measure = RATE (test code = GFR) ml/mi n/1.73 m2 CREATININE (test code = 0.6 mg/dL 0.6-1.3 N CREAT) CALCIUM (test code = 7.7 mg/dL 8.0-10.5 L CA) HEPATIC FUNCTION [id number] 10:30:00 Test Item Value Reference Range Interpretation Comments TOTAL PROTEIN (test code = PROT) 5.7 g/dL 6.4-8.2 L ALBUMIN (test code = ALB) 2.60 g/dL 3.4-5.0 L BILIRUBIN TOTAL (test code = 0.2 MG/DL <1.5 N BILT) BILIRUBIN DIRECT (test code = < 0.10 MG/DL 0.0-0.30 N BILD) BILIRUBIN INDIRECT (test code = 0.10 MG/DL BILIND) SGOT/AST (test code = AST) 17 IUnit/L 15-37 N SGPT/ALT (test code = ALT) 25 IUnit/L 15-65 N ALKALINE PHOSPHATASE TOTAL (test 89 IUnit/L 20-125 N code = ALKP) [id number] 10:30:00 Test Item Value Reference Range Interpretation Comments LIPASE (test code = LIP) 49 IUnit/L 73-393 L HCG SERUM [id number] 10:30:00 Test Item Value Reference Range Interpretation Comments HCG SERUM QUAL (test code = SERUM NEGATIVE NEGATIVE HCGQL) [id number] 10:30:00 Test Item Value Reference Range Interpretation Comments TROPONIN-I 0.025 ng/mL 0.000-0.045 N Negative: <= (test code = 0.045 Positive: TROPI) >= 0.046 Correl ation with serial results, other cardiac markers andclin ical findings is necessary to determine the clinicalsignifi cance of this result. Results using different metho dologies should not be c omparedto one another as dionte titative results may vivek y by method. BASIC METABOLIC [id number] 10:18:00 Test Item Value Reference Range Interpretation Comments SODIUM (test code = NA) mEq/L 134-147 POTASSIUM (test code = K) mEq/L 3.4-5.0 CHLORIDE (test code = CL) mEq/L 100-108 CARBON DIOXIDE (test code = CO2) mEq/L 21-33 ANION GAP (test code = GAP) 0-20 GLUCOSE (test code = GLU) mg/dL 70-110 BLOOD UREA NITROGEN (test code = BUN) mg/dL 7-18 GLOMERULAR FILTRATION RATE (test code 95-105 = GFR) CREATININE (test code = CREAT) mg/dL 0.6-1.3 CALCIUM (test code = CA) mg/dL 8.0-10.5 HEPATIC FUNCTION [id number] 10:18:00 Test Item Value Reference Range Interpretation Comments TOTAL PROTEIN (test code = PROT) g/dL 6.4-8.2 ALBUMIN (test code = ALB) g/dL 3.4-5.0 BILIRUBIN TOTAL (test code = BILT) MG/DL <1.5 BILIRUBIN DIRECT (test code = BILD) MG/DL 0.0-0.30 SGOT/AST (test code = AST) IUnit/L 15-37 SGPT/ALT (test code = ALT) IUnit/L 15-65 ALKALINE PHOSPHATASE TOTAL (test IUnit/L 20-125 code = ALKP) [id number] 10:18:00 Test Item Value Reference Range Interpretation Comments LIPASE (test code = LIP) IUnit/L 73-393 HCG SERUM [id number] 10:18:00 Test Item Value Reference Range Interpretation Comments HCG SERUM QUAL (test code = SERUM NEGATIVE NEGATIVE HCGQL) [id number] 10:18:00 Test Item Value Reference Range Interpretation Comments TROPONIN-I (test code = TROPI) ng/mL 0.000-0.045 CBC W/AUTO [id number] 10:12:00 Test Item Value Reference Range Interpretation Comments WHITE BLOOD CELL (test code = 12.81 x10 3/uL 4.5-11.0 H WBC) RED BLOOD CELL (test code = 2.42 x10 6/uL 3.54-5.02 L RBC) HEMOGLOBIN (test code = HGB) 7.3 g/dL 11.0-15.0 L HEMATOCRIT (test code = HCT) 23.3 % 33.0-45.0 L MEAN CELL VOLUME (test code = 96.3 fL 81.0-99.0 N MCV) MEAN CELL HGB (test code = 30.2 pg 27.0-33.0 N MCH) MEAN CELL HGB CONCETRATION 31.3 g/dL 33.0-37.0 L (test code = MCHC) RED CELL DISTRIBUTION WIDTH CV 14.6 % 11.5-14.5 H (test code = RDW) RED CELL DISTRIBUTION WIDTH SD 50.3 fL 37.0-54.0 N (test code = RDW-SD) PLATELET COUNT (test code = 286 x10 3/uL 150-400 N PLT) MEAN PLATELET VOLUME (test 9.9 fL 7.0-9.0 H code = MPV) NEUTROPHIL % (test code = NT%) 76.0 % 56.0-77.0 N IMMATURE GRANULOCYTE % (test 0.6 % 0.0-2.0 N code = IG%) LYMPHOCYTE % (test code = LY%) 18.3 % 14.0-32.0 N MONOCYTE % (test code = MO%) 4.0 % 4.8-9.0 L EOSINOPHIL % (test code = EO%) 0.9 % 0.3-3.7 N BASOPHIL % (test code = BA%) 0.2 % 0.0-2.0 N NUCLEATED RBC % (test code = 0.0 % 0-0 N NRBC%) NEUTROPHIL # (test code = NT#) 9.73 x10 3/uL 2.0-7.6 H IMMATURE GRANULOCYTE # (test 0.08 x10 3/uL 0.00-0.03 H code = IG#) LYMPHOCYTE # (test code = LY#) 2.34 x10 3/uL 1.0-3.8 N MONOCYTE # (test code = MO#) 0.51 x10 3/uL 0.1-0.8 N EOSINOPHIL # (test code = EO#) 0.12 x10 3/uL 0.0-0.2 N BASOPHIL # (test code = BA#) 0.03 x10 3/uL 0.0-0.2 N NUCLEATED RBC # (test code = 0.00 x10 3/uL 0.0-0.1 N NRBC#) MANUAL DIFF REQUIRED (test NO code = MDIFF) - XR CHEST 1 [id number] 10:09:00 FAX: Elva Orozco DO [phone] [place]: St: PRE Name: SABINE GRACE [facility] : 1975 Age/S: 44/F [address] [place] [address] Unit#: [id number] Loc: [address] [address] Phys: Elva Morales DO Acct: [id number] Dis Date: Status: PRE ER PHONE #: [phone] Exam Date: 12/09/2019 1006 FAX #: [phone] Reason: Abdominal Pain EXAMS: CPT CODE: [id number] XR CHEST 1 V 61688 Patient: SABINE GRACE. : 1975; Age: 44 years; Gender: Female. MR: [id number]. Ordering physician: Elva Morales DO. PORTABLE CHEST AP: HISTORY: GI bleeding and abdominal pain. COMPARISON:None. FINDINGS: Portable frontal view of the chest was obtained. The lungs areclear bilaterally. The cardiomediastinal silhouette and pulmonary vasculature are unremarkable. The partially visualized upper abdomen is unremarkable. IMPRESSION: No acute disease in the chest. SL: [id number] at 1009 Reported and signed by: Jerald Garner M.D. CC: Elva Morales DO Technologist: RT Santhosh(R) Trnscrd Date/Time/By: 12/09/2019 (1009) : By: [email or web address] Orig PrintD/T: S: 12/09/2019 (4592) PAGE 1 Signed ReportChemistry 2015-05-09 16:37:28514 MEQ/LMemorial MmubachSyrhlfckm2365-85-69 16:37:003.7 MEQ/LMemorial ZsyqcfmLukuuibir7649-89-32 16:37:000.8[facility]annChem[facility] 2015-05-09 16:37:007[facility] ZtdxgrwPjqefilpt1779-31-87 16:37:00 Test Item Value Reference Range Interpretation Comments BUN/CREAT (test code = BUN/CREAT) 9 1 6-25 [facility] ZwukbcsUzvgehrvk7701-65-22 16:37:003.7[facility]annChem[facility] 2015-05-09 16:37:008.7[facility] OpzrpojRdvygpicb9626-87-75 16:37:0063[facility] PtxvjgcOrnfmrmxp7501-17-77 16:37:0032[facility] PvckcsySwuhnnijo7058-91-34 16:37:96368Undhipod WlckahsEhccjapcgp5918-46-54 16:37:0013.9[facility] Gbcoxkbgfy7901-08-47 16:37:0042.6[facility] UjthznpRcdprecozs9474-42-37 16:37:00 227 K/CMMMemorial LshkycrQsvkbzrok9325-55-75 20:45:003.1[facility] Uwbfphbqc9976-54-64 20:45:0086[facility] RzyezagDovmkjsxz4590-57-93 20:45:002.0 [facility] XehoeppSlaeebnxz4687-06-12 20:45:38571 MEQ/LMemorial HermannChemistry 2015-02-15 20:45:003.8 MEQ/LMemorial DrzjveeXfzvlzeos8728-31-12 20:45:000.8 [facility] QqjzhouWaekcnyxh6392-46-35 20:45:0010[facility]ann[facility] 2015-02-15 20:45:00 Test Item Value Reference Range Interpretation Comments BUN/CREAT (test code = BUN/CREAT) 12 05-02 [facility] MtzitqsKgvqsmati9902-50-10 20:45:004.0[facility] HermannChemistry 2015-02-15 20:45:009.1[facility] OihdmnnOlykvowkp4111-36-29 20:45:0095[facility] JhywsalQpffrlkqy5558-31-09 20:45:0066[facility] AlcxsrjJhdglndbw5123-74-17 20:45:83587Ojgyztrd TrzwrhyNyastogzt6934-28-48 20:45:003.1[facility] Bwmfdomsx3646-11-08 20:45:0086[facility] DwxmffwNjvlnmaiz9390-84-28 20:45:002.0 [facility] OdllkgjNtbwuqillb3864-90-48 20:45:0015.5[facility] HermannHematology 2015-02-15 20:45:0046.2[facility] MdotjxoSjoebqughr3453-83-67 20:45:68120 K/[facility] IkclocaUpkxyrrypl1839-17-87 20:45:006[facility] HermannChem[facility] 2014-12-23 02:50:000.2[facility] ZjnlcrqDcrgihgdl7646-57-01 02:50:000.2[facility] ImwcfezXfvwwtxzm7894-35-75 02:50:000.2[facility] WvoyiuxNacskpivf9152-29-70 02:50:000.2[facility] FxkiaxfWxkxyposp3974-20-35 02:50:000.2[facility] Sotvlkqwa3788-22-12 02:50:000.2[facility] PezoolnLqezqhenz0592-62-65 14:01:0035 [facility] UrklyitYodelmexk4288-31-36 14:01:0035[facility]annChem[facility] 2014-12-21 14:01:0035[facility] JcmmkihVaqthmgwi5421-26-42 14:01:0035[facility] MyrtwvsPzngnzayh8408-76-66 14:01:0035[facility] VerfypoZahombzci1796-31-79 14:01:0035[facility] CmteucrTxhqrtmac1883-29-02 12:29:00<3 ng/dLMemorial FznhopwGnvoqvpuf7574-26-47 12:29:00<3 ng/dLMemorial HermannChemistry 2014-12-21 12:29:00<3 ng/dLMemorial IopkuqlBdvgoosux5812-54-49 12:29:00<3 ng/dLMemorial GyolhqjAdycdgqhc0560-58-79 12:29:00<3 ng/dLMemorial [facility] Rfgiauhnf0565-29-82 12:29:00<3 ng/dLMemorial PbxwgmaKuqhnakta1692-23-87 09:26:38554Lvlqnoim YfhcxlaBusgnvrye4970-68-97 09:26:77551Mrfnvshj [place] Puxmnents9017-56-95 09:26:56626Xhhufwci CihshltVgdxmarui3058-92-05 09:26:54528 [facility] HtbiwkdGdsutktku1486-27-74 09:26:98647Nzmygtzs HermannChemistry 2014-12-21 09:26:63680Daotrrce EoyogxqFdzkcvkcv0264-70-56 09:16:003.9[facility] NvrvhsnZfgvzhazj6585-98-20 09:16:0061[facility] EmbluouJggewmowx8288-81-45 09:16:0050[facility] RzsgkozBzixvllch5860-56-43 09:16:003.9[facility] Ocnbnxtil5165-49-91 09:16:0061[facility] UjjkolxHlmmakbdu0236-49-26 09:16:0050 [facility] IoraehiAaxdskrvc2415-06-03 09:16:003.9[facility]annChem[facility] 2014-12-21 09:16:0061[facility] YzihkziAopjfxupc3071-43-85 09:16:0050[facility] BjdvtzzXcxkaatlr4381-21-93 09:16:003.9[facility] LakdjytRcaofniab7699-61-26 09:16:0061[facility] RuhpcloWakorbxap1561-81-33 09:16:0050[facility] Mcnpjqqwb1984-09-03 09:16:003.9[facility] EqfkmdzJziurvvkx1796-40-63 09:16:0061 [facility] UyqrpezZdomqrplu2958-15-47 09:16:003.9[facility] HermannChem[facility] 2014-12-21 09:16:0061[facility] SvjvyzrFunuedtzf7956-77-88 09:11:005[facility] FghzsyrPthmojnjo1335-85-42 09:11:000.58[facility] HeztuefXvqubkles1630-12-28 09:11:00 Test Item Value Reference Range Interpretation Comments BUN/CREAT (test code = BUN/CREAT) 9 06-27 [facility] AeyrlijKxhibsefu9645-89-65 09:11:000.58[facility] HermannChemistry 2014-12-21 09:11:005[facility] YvkkohoZkqkojjcn4150-49-04 09:11:000.58[facility] NabnmruTzhtjhazi6335-82-97 09:11:00 Test Item Value Reference Range Interpretation Comments BUN/CREAT (test code = BUN/CREAT) 9 06-27 [facility] WpxeifwMgdqwwahp2457-21-49 09:11:000.58[facility] HermannChem[facility] 2014-12-21 09:11:005[facility] AizdjmpOpfmkywwq1222-69-28 09:11:000.58[facility] QtdvthmQncrdxglx2018-42-82 09:11:00 Test Item Value Reference Range Interpretation Comments BUN/CREAT (test code = BUN/CREAT) 9 06-27 [facility] ZmmhpezHjhzusnos3052-50-68 09:11:008.8[facility] HermannChemistry 2014-12-21 09:11:005[facility] PgfqfemUsxkbfcpo1924-78-08 09:11:000.58[facility] WxrggqgEfgfuswqc9878-19-22 09:11:00 Test Item Value Reference Range Interpretation Comments BUN/CREAT (test code = BUN/CREAT) 9 06-27 [facility] YpcravlJkqtemhdm9408-90-58 09:11:008.8[facility] HermannChem[facility] 2014-12-21 09:11:005[facility] JqzdaesMdsqqmvcr1820-46-29 09:11:00 Test Item Value Reference Range Interpretation Comments BUN/CREAT (test code = BUN/CREAT) 9 06-27 [facility] ZahihcySmfldrnkd0545-93-89 09:11:005[facility] KxsplewFvcbaggjr7376-19-72 09:11:00 Test Item Value Reference Range Interpretation Comments BUN/CREAT (test code = BUN/CREAT) 9 06-27 [facility] EwfhhwvZjxzkzbfb3983-20-73 09:06:62863Plqdgtjm HermannChemistry 2014-12-21 09:06:004.0[facility] UpzqjicAhqcpwdqq7360-06-93 09:06:44133Zulmnbjz DopzziyTdsrrebwl4676-95-12 09:06:004.0[facility] IgdefeeRjlmicvxe1617-07-51 09:06:92020Oxnzdojy KvvdnotSculjvzuv3706-12-86 09:06:004.0[facility] Jcwkqlrcp4152-63-10 09:06:06834Ujauubas SoluxmkGhatksoes7917-65-77 09:06:004.0 [facility] OhqzdopZpdizfduo9668-96-58 09:06:54923Thdvhjhf [facility]annChem[facility] 2014-12-21 09:06:004.0[facility] LxcjbtoZshnxthem0000-56-71 09:06:44887Cwtvkdqv GtajegeOmjxaeoyy3162-44-08 09:06:004.0[facility] IfavekhVeeeertum7390-97-05 18:12:24106 MEQ/LMemorial GmguzgbOoyeurvtn2427-06-03 18:12:003.8 MEQ/LMemorial LzjvykjSovgodevm6514-03-31 18:12:000.emorial OpamohmJqnyfbdyg7119-15-53 18:12:007[facility] VldygjdAitenfzqk6981-52-00 18:12:99749 [facility]/L[facility] Koljhqarp1182-34-11 18:12:003.8 MEQ/LMemorial FecuzepZovulrnph7267-43-34 18:12:000.emorial ModpgkqEmsqcdlix7325-82-65 18:12:26045 MEQ/LMem[facility] Wdflzkfxl4249-67-93 18:12:003.8 MEQ/LMemorial VwpmlotIryjppmpi2364-87-29 18:12:000.emorial OhrrtmuOtdskyplt3665-47-27 18:12:79883 MEQ/L[facility] Ugpgqnhlu3760-76-10 18:12:003.8 MEQ/LMemorial AggsjvhCeedxtiot3936-20-70 18:12:000.emorial BqzukdoFfwxggguv8217-35-15 18:12:007[facility] Asjuiiemd0996-35-22 18:12:00 Test Item Value Reference Range Interpretation Comments BUN/CREAT (test code = BUN/CREAT) 12 1 6-25 [facility] OithpejZgodgbifl4786-80-51 18:12:004.0[facility] HermannChemistry 2014-07-17 18:12:009.0[facility] AplfsdzTwgmonxux0485-02-21 18:12:0085[facility] AfynljpHdljfqsjg0520-84-00 18:12:0046[facility] FmsmxkdPrezbelqg8915-07-04 18:12:95871Jbrdbenf VfdaxctTccogfgut6746-13-40 18:12:50512 [facility]/L[facility] Tihptinlb2767-86-22 18:12:003.8 MEQ/LMemorial ChcagnrFmtnzbkfi8141-71-79 18:12:000.emorial XaofzycPduwmlzrr9498-50-03 18:12:007[facility] Nyfwjtycc1125-36-88 18:12:39880 MEQ/LMemorial KtsbxdkAecnsrofh3785-19-93 18:12:003.8 MEQ/LMemorial KpkflwaOoclwsien0871-79-66 18:12:000.[facility] Lwrxxkowd6744-25-43 18:12:92654 MEQ/LMemorial TpzdlgiIgnjgnmpx9769-71-14 18:12:003.8 MEQ/LMemorial TcatbqdTjekakoeu0652-57-43 18:12:000.[facility] [place] Lhbrejdfo4587-75-04 18:12:007[facility] NyyltcbZvwibfzxs7443-75-79 18:12:00 Test Item Value Reference Range Interpretation Comments BUN/CREAT (test code = BUN/CREAT) 05-02 [facility] CjqlbebCptygxwhd4262-83-98 18:12:004.0[facility] HermannChemistry 2014-07-17 18:12:009.0[facility] LwxuqcjTpmfazkvw6481-07-35 18:12:0085[facility] DoudeesJelaowcnj1371-03-25 18:12:0046[facility] BynbqwmYkmwznhto3562-38-11 18:12:45139Zrfwfboy FhhvfwqGijjpebxr2461-03-18 18:12:007[facility] Vxvuubdks9918-38-28 18:12:00 Test Item Value Reference Range Interpretation Comments BUN/CREAT (test code = BUN/CREAT) 05-02 [facility] TeayucvArnkmudue1615-53-68 18:12:004.0[facility]annChem[facility] 2014-07-17 18:12:009.0[facility] TjpteoxYoiirtvjj2893-86-14 18:12:0085[facility] YdgozjfVmdbmboht6974-00-29 18:12:0046[facility] ZbiijsmIoqjevhph7052-32-22 18:12:78728Ihydzcul ObbuetoSrkcizgorl8341-21-63 18:12:0013.6[facility] Lmizwoknwm9894-09-92 18:12:0041.8[facility] BiagfhwYxgaixzwkl8865-74-71 18:12:00 199 K/CMMMemorial UjngoguYgwzrbebly0606-56-26 18:12:0013.6[facility] Apfocyxuhi2149-54-98 18:12:0041.8[facility] HvvbfpdRcmzwrxnqr0709-91-22 18:12:00 199 K/CMMMemorial IjvpqwcAddadpmkrz1739-64-48 18:12:00YellowMem[facility] Yuqgutioza3108-29-63 18:12:00Occasional[facility] BviirhsPznyiltegf9753-27-36 18:12:00YellowMemorial VhwhefmSupntrswdz7451-11-64 18:12:00OccasionalMem[facility] TndmdcuKbirgmvkbz4865-56-67 18:12:00YellowMemorial CvrgajaRdpysufltn3709-01-92 18:12:00Occ[facility]ionalMem[facility] KutdbvgShitzwdswp8944-83-83 18:12:00YellowMemorial WcobpvaPqdlpxoogx6184-39-81 18:12:00OccasionalMem[facility] HermannUrinalysis 2014-07-17 18:12:00OccasionalMemorial CkirrrvJawpfdush5540-42-00 18:39:004.7 [facility] OvpmgswDuyncidvj5455-37-90 18:39:72842Djjebsms [facility]Chem[facility] 2014-03-26 18:39:46509Lpnerqcz LflugydRuvbdqhro9593-43-64 18:39:0042[facility] FsxirkrGgneuyoup4068-68-82 18:39:40269Uwzevaax EsonakgYsrajlofg2453-88-92 18:39:33378 MEQ/LMemorial FgcitwiTeurauwrf1471-86-95 18:39:004.1 MEQ/LMemorial GhnwyndGforzgclv6920-06-06 18:39:000.8[facility] CnzhwihBpfgjlngh3621-94-28 18:39:0011[facility] MocbzulSynrzserd4925-35-74 18:39:00 Test Item Value Reference Range Interpretation Comments BUN/CREAT (test code = BUN/CREAT) 14 1 6-25 [facility] RdbrgfaCcxeddibe1594-28-68 18:39:003.7[facility]annChem[facility] 2014-03-26 18:39:008.9[facility] StwrweoEcvamjyxs4004-75-22 18:39:0041[facility] NejaaerYxcxtniiq2767-96-20 18:39:0023[facility] QxaugqoHjzjnahvc7363-73-56 18:39:12912Gnjlluuq KnnpjkdTabyqjxiz2366-55-82 18:39:0010[facility] Mairxwcap3701-55-32 18:39:0025[facility] AsskyjxRjooacaoz5915-53-88 18:39:16597 [facility] PuigdsvXuubggabx0064-40-87 18:39:002.050[facility]annChem[facility] 2014-03-26 18:39:004.7[facility] BwewekqPpzetygrt0854-25-19 18:39:19288Wkjjxfhp StzwmgrDzwqmhkub2086-22-65 18:39:78426Fyzrgqwk ScibtozJxmwffuau8405-28-24 18:39:0042[facility] MzcjkyeGhnepxynn2285-08-24 18:39:95782Jxjgegpz [place] Cnitpvopi1915-47-98 18:39:85183 MEQ/LMemorial MpeogymKjkaeujnm0278-52-15 18:39:004.1 MEQ/LMemorial XlhidtoKbfsrbfhi6680-78-62 18:39:000.8[facility] Knkbqvfkm5188-67-40 18:39:0011[facility] VbgjcmpPqqpdyrzj6793-85-22 18:39:00 Test Item Value Reference Range Interpretation Comments BUN/CREAT (test code = BUN/CREAT) 14 1 6-25 [facility] QjichppCsnpxchyi4741-33-95 18:39:003.7[facility]annChem[facility] 2014-03-26 18:39:008.9[facility] YqutpspXfsejutwd2749-54-85 18:39:0041[facility] JojuodkTlgnzhfwx5041-85-83 18:39:004.7[facility] HuwcoqzPetgandoy4299-68-76 18:39:21518Vqimmxar SlxzlsfZbgsfhhwg6531-17-67 18:39:31512Geyfbkqb [facility] Pbxvdmaet2016-93-98 18:39:0042[facility] FmkdbwqZqlrawych4696-48-41 18:39:004.7 [facility] TtrxvaoYxktlqcis9652-99-83 18:39:21627Qbbqumwo HermannChemistry 2014-03-26 18:39:50727Nmonouym OrwpknpZcuryomcn4669-40-71 18:39:004.7[facility] BfzovxwUmeyeyvmt4019-52-79 18:39:76558Pgvwsldh PrgxbdjJyugywphl0288-00-17 18:39:39791Snsridah NoabajfKotjgyusm9684-22-28 18:39:0042[facility] Fnjokbnar1345-40-53 18:39:05032Zpnbhpax TmqnrklFttguztzt6428-53-80 18:39:98599 MEQ/LMemorial RzkhzqyEwjncqebm3464-64-69 18:39:004.1 MEQ/LMemorial Ezra Oxxtqkteu9355-50-97 18:39:000.8[facility] ZkssjkuAavwslhon8376-05-68 18:39:0011 [facility] FmljafgCmsalunke6299-30-39 18:39:00 Test Item Value Reference Range Interpretation Comments BUN/CREAT (test code = BUN/CREAT) 14 1 6-25 [facility] SontvdmJjzbjsxth7269-61-99 18:39:003.7[facility] HermannChemistry 2014-03-26 18:39:008.9[facility] LstwkddLpphznyyp8916-94-78 18:39:0041[facility] GzhoinkPvukfvzhh8176-86-55 18:39:0023[facility] UqymtfzAqprmqnjn0596-49-49 18:39:27236Kmvldcfw LdenetlIpijephzv1073-19-09 18:39:0010[facility] Zijnoqnux1323-92-36 18:39:0025[facility] KoybzdeMptlnrsfl6256-26-30 18:39:38388 [facility] TkbqvbnRvgrhvskz5135-09-17 18:39:002.050[facility]annHematology 2014-03-26 18:39:009.8[facility] QiwljolRnyhjjuowu9357-82-88 18:39:0032.7[facility] IvgafmcJhdlyanbjk4983-65-73 18:39:81245 K/CMMMemorial HermannHematology 2014-03-26 18:39:009.8[facility] VmqipfcYldgtaouja3490-26-36 18:39:0032.7[facility] VuylhihUbqzilskgz5556-01-08 18:39:91158 K/CMMMemorial HermannHematology 2014-03-26 18:39:0039[facility] VmalfahEsnmyigf2715-16-38 18:39:00PositiveMem[facility] TavlkjvBguiyxlg6612-06-63 18:39:00PositiveMem[facility] OomspglJqkzswvn4737-07-60 18:39:00PositiveMem[facility] AgcmtteDrrthcqn8149-88-32 18:39:00Positive[facility] AidunxeRditynhx5522-22-08 18:39:00Positive[facility] GsrxwauPayqvramdw0577-41-74 18:39:00[facility] SxpekunXaarqjluur9310-74-58 18:39:00[facility] CdtwjlzPfezarnbnp9295-33-23 18:39:00[facility] TgrpsnwMboiakrpyt5402-00-59 18:39:00[facility] PpckkmwXbwjusnedo9296-71-72 18:39:00[facility] LfyalhvOhhpcdljou4704-80-55 18:39:00[facility] HermannUrinalysis 2014-03-26 18:39:00[facility] CjncgouVepoawdxib0911-80-41 18:39:00[facility] Ezra
[2021-04-05] MEDS ORDERED: PROMETHAZINE INJ 25 MG/ML AMP ONE ×2 (20:50→21:36)
[2021-04-05] MEDS ORDERED: PANTOPRAZOLE 40 MG INJ ONE (20:51)
[2021-04-05] MEDS ORDERED: NA CHLORIDE 0.9% 500 ML ONE (20:51)
[2021-04-05] MEDS ORDERED: WATER FOR INJ,STERILE 10 ML ONE (20:51)
[2021-04-05] MEDS ORDERED: HYDROMORPHONE HCL 1 MG/ML INJ ONE ×2 (20:51→21:36)
[2021-04-05 20:56] LABS: Absolute Lymphocytes (CBC) 1.1 K/uL (0.7-4.9); Basophils % 0.7 % (0-1.3); Hematocrit 42.1 % (36.0-45.0); MPV 7.9 fL (7.6-11.3); RBC Red Blood Cell Count 4.84 M/uL (3.86-4.86)
--- NOTE | 2021-04-05 21:09 | RAD REPORT ---
EXAM DESCRIPTION: CT - Abdomen Pelvis W Contrast - 04/05/2021 8:53 pm CLINICAL HISTORY: Abdominal pain/GI bleed COMPARISON: 2017 TECHNIQUE: Computed axial tomography of the abdomen pelvis was obtained. 100 cc Isovue-300 was admin istered intravenously. Oral contrast was not requested which limits evaluation of bowel. All CT scans are performed using dose optimization technique as appropriate and may include automated exposure control or mA/KV adjustment according to patient size. FINDINGS: Gastric bypass. Cholecystectomy. The liver, spleen, pancreas, adrenal and kidneys appear unremarkable. There is no evidence of diverticulitis. . An abnormal appendix is not seen. No adnexal mass noted. IMPRESSION: No acute abnormality is displayed.
--- NOTE | 2021-04-05 21:11 | RAD REPORT ---
EXAM DESCRIPTION: Destiny Single View04/05/2021 8:51 pm CLINICAL HISTORY: Cough COMPARISON: 2019 FINDINGS: The lungs appear clear of acute infiltrate. The heart is normal size IMPRESSION: No acute abnormalities displayed
[2021-04-05 21:13] LABS: ALT/SGPT 88 U/L (12-78); AST/SGOT 30 U/L (15-37); Albumin 4.2 g/dL (3.4-5.0); Alkaline Phosphatase 157 U/L (45-117); BUN Blood Urea Nitrogen 25 mg/dL (7-18); Bicarbonate 25 mmol/L (21-32); Bilirubin Direct < 0.1 mg/dL (0-0.2); Bilirubin Total 0.3 mg/dL (0.2-1.0); Glucose Level 119 mg/dL (74-106); Lipase 108 U/L (73-393); Potassium 3.1 mmol/L (3.5-5.1); Protein, Total 8.5 g/dL (6.4-8.2); Sodium Level 138 mmol/L (136-145)
--- NOTE | 2021-04-05 21:49 | EDPHYS ---
Physician Documentation [facility] Name: Liza Dexter Age: 45 yrs Sex: Female : 1975 Arrival Date: 04/05/2021 Time: 19:35 Bed 18 Private MD: ED Physician Will Patterson HPI: 04/05 20:16 This 45 yrs old Female presents to ER via Wheelchair with complaints of pm1 Vomiting/Diarrhea. 20:16 The patient presents to the emergency department with nausea, vomiting, diarrhea, pm1 abdominal pain, of the epigastric area and right upper quadrant, described as crampy, and does not radiate. Onset: The symptoms/episode began/occurred 1 week(s) ago. Possible causes: sick contacts, by family, father, mother. The symptoms are aggravated by nothing. The symptoms are alleviated by nothing. Associated signs and symptoms: Pertinent positives: GI bleeding, Pertinent negatives: fever. Severity of symptoms: in the emergency department the symptoms are worse. The patient has experienced similar episodes in the past, multiple times. The patient has not recently seen a physician. Patient reports bright red blood in her diarrhea and vomit. 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 Flu vaccine is up to date. - Social history:: Smoking status: Patient denies any tobacco usage or history of. ROS: 20:16 Back: Negative for injury and pain, : Negative for injury, bleeding, discharge, and pm1 swelling, MS/Extremity: Negative for injury and deformity, Skin: Negative for injury, rash, and discoloration, Neuro: Negative for headache, weakness, numbness, tingling, and seizure. 20:16 Constitutional: Negative for fever, chills, and weight loss, Eyes: Negative for injury, pain, redness, and discharge, ENT: Negative for injury, pain, and discharge, Neck: Negative for injury, pain, and swelling, Cardiovascular: Negative for chest pain, palpitations, and edema, Respiratory: Negative for shortness of breath, wheezing, and pleuritic chest pain, Positive for cough 20:16 Abdomen/GI: Positive for abdominal pain, nausea, vomiting, and diarrhea, hematemesis, rectal bleeding. Exam: 20:16 Constitutional: This is a well developed, well nourished patient who is awake, alert, pm1 and in no acute distress. Head/Face: Normocephalic, atraumatic. 20:16 Back: No spinal tenderness. No costovertebral tenderness. Full range of motion. Skin: Warm, dry with normal turgor. Normal color with no rashes, no lesions, and no evidence of cellulitis. MS/ Extremity: Pulses equal, no cyanosis. Neurovascular intact. Full, normal range of motion. 20:16 Eyes: Periorbital structures: appear normal, Pupils: no acute changes, Extraocular movements: no acute changes, Conjunctiva: normal, Sclera: no appreciated abnormality, icterus, is not appreciated. 20:16 ENT: Mouth: Lips: normal, Oral mucosa: normal, pink and intact, moist. 20:16 Cardiovascular: Rate: tachycardic, Rhythm: regular, Pulses: no pulse deficits are appreciated, Edema: is not appreciated. 20:16 Respiratory: Exam negative for acute changes, respiratory distress, shortness of breath, Breath sounds: are clear throughout. 20:16 Neuro: Exam negative for acute changes, Orientation: is normal, Mentation: is normal, Motor: is normal, moves all fours. 21:44 Abdomen/GI: Rectal exam: rectal tone normal, Stool: brown, guaiac negative, pm1 hemorrhoid(s), external, without bleeding, without inflammation, without thrombosis, without pain, tenderness, is not appreciated, Dayana VUONG as hospice superintendent. Vital Signs: 19:40 BP 146 / 84; Pulse 109; Resp 20 S; Temp 98.5(TE); Pulse Ox 97% on R/A; Weight 92.99 kg ca1 (R); Height 5 ft. 6 in. (167.64 cm) (R); Pain 9/10; 20:40 BP 136 / 89; Pulse 110; Resp 19; Pulse Ox 98% ; rr5 22:19 BP 125 / 80; Pulse 95; Resp 16; Pulse Ox 98% ; rr5 19:40 Body Mass Index 33.09 (92.99 kg, 167.64 cm) ca1 MDM: 20:08 Patient medically screened. pm1 21:47 Data reviewed: vital signs. Data interpreted: Pulse oximetry: on room air is 98 %. pm1 Interpretation: normal. 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 04/05 20:13 Order name: Basic Metabolic Panel; Complete Time: 21:16 pm1 04/05 20:13 Order name: CBC with Diff pm1 04/05 20:13 Order name: Hepatic Function; Complete Time: 21:16 pm1 04/05 20:13 Order name: Lipase; Complete Time: 21:16 pm1 04/05 20:13 Order name: Type And Screen; Complete Time: 22:20 pm04/05 20:13 Order name: CT Abd/Pelvis - IV Contrast Only; Complete Time: 21:16 pm04/05 20:14 Order name: Chest Single View XRAY; Complete Time: 21:16 pm1 04/05 21:01 Order name: CBC Smear Scan EDTX 04/05 21:48 Order name: [facility] 04/05 20:13 Order name: IV Saline Lock; Complete Time: 20:27 pm04/05 20:13 Order name: Labs collected and sent; Complete Time: 20:27 pm1 Administered Medications: 20:40 Drug: ProTONIX (pantoprazole) 40 mg Route: IVP; Site: left forearm; rr5 21:40 Follow up: Response: No adverse reaction rr5 20:40 Drug: NS 0.9% 500 ml Route: IV; Rate: bolus; Site: left forearm; rr5 21:30 Follow up: Response: No adverse reaction; IV Status: Completed infusion; IV Intake: rr5 500ml 20:42 Drug: Phenergan (promethazine) 12.5 mg Route: IVP; Site: left forearm; rr5 21:10 Follow up: Response: No adverse reaction; No change in condition rr5 20:45 Drug: Dilaudid (HYDROmorphone) 1 mg {Note: rass 0.} Route: IVP; Site: left forearm; rr5 21:10 Follow up: Response: No adverse reaction; No change in condition; RASS: Alert and Calm rr5 (0) 21:21 Drug: Phenergan (promethazine) 12.5 mg Route: IVP; Site: left forearm; rr5 22:22 Follow up: Response: No adverse reaction; Marked relief of symptoms rr5 21:23 Drug: Dilaudid (HYDROmorphone) 1 mg {Note: rass 0.} Route: IVP; Site: left forearm; rr5 22:22 Follow up: Response: No adverse reaction; Marked relief of symptoms; RASS: Alert and rr5 Calm (0) Disposition: 04/06 06:14 Co-signature as Attending Physician, Will Patterson MD. 7 Disposition: 04/05/21 21:49 Discharged to Home. Impression: Unspecified abdominal pain, Vomiting, unspecified, Diarrhea, unspecified. - Condition is Stable. - Discharge Instructions: Abdominal Pain, Adult, Food Choices to Help Relieve Diarrhea, Adult, Diarrhea, Adult, Nausea and Vomiting, Adult. - Prescriptions for Phenergan 25 mg Rectal Suppository - insert 1 suppository by RECTAL route every 6 hours As needed; 12 suppository. Bentyl 20 mg Oral Tablet - take 1 tablet by ORAL route every 6 hours As needed; 20 tablet. - Medication Reconciliation Form, Thank You Letter, Antibiotic Education, Prescription Opioid Use form. - Follow up: Emergency Department; When: As needed; Reason: Worsening of condition. Follow up: Private Physician; When: 2 - 3 days; Reason: Recheck today's complaints, Continuance of care, Re-evaluation by your physician. - Problem is new. - Symptoms have improved. Signatures: Dispatcher [employer] EDMS Amari Cam, SERGIO CASH ANALYST pm1 Melo Michel RN RN rr5 Taya Capone RN RN [facility] Will Patterson MD MD [facility] Corrections: (The following items were deleted from the chart) 04/05 22:23 21:49 04/05/2021 21:49 Discharged to Home. Impression: Unspecified abdominal rr5 painVomiting, unspecified; Diarrhea, unspecified. Condition is Stable. Forms are Medication Reconciliation Form, Thank You Letter, Antibiotic Education, Prescription Opioid Use. Follow up: Emergency Department; When: As needed; Reason: Worsening of condition. Follow up: Private Physician; When: 2 - 3 days; Reason: Recheck today's complaints, Continuance of care, Re-evaluation by your physician. Problem is new. Symptoms have improved. pm1 04/06 00:23 04/05 20:16 Constitutional: Negative for fever, chills, and weight loss, Eyes: Negative pm1 for injury, pain, redness, and discharge, ENT: Negative for injury, pain, and discharge, Neck: Negative for injury, pain, and swelling, Cardiovascular: Negative for chest pain, palpitations, and edema, Respiratory: Negative for shortness of breath, cough, wheezing, and pleuritic chest pain, pm1
--- NOTE | 2021-04-05 21:49 | ER ---
Nurse's Notes [facility] Name: Liza Dexter Age: 45 yrs Sex: Female : 1975 Arrival Date: 04/05/2021 Time: 19:35 Bed 18 Private MD: Diagnosis: Vomiting, unspecified;Diarrhea, unspecified;Unspecified abdominal pain Presentation: 04/05 19:40 Chief complaint: Patient states: N/VD abdominal cramping x 1 week. Had HX of GI bleeds. ca1 Bloody stool, throwing up blood, coughing up blood. Been taking Phenergan, no relief. Coronavirus screen: Client denies travel out of the [place] in the last 14 days. diarrhea, nausea, vomiting. Client presents with at least one sign or symptom that may indicate coronavirus-19. Standard/surgical mask placed on the client. Provider contacted for isolation considerations. Ebola Screen: Patient negative for fever greater than or equal to 101.5 degrees Fahrenheit, and additional compatible Ebola Virus Disease symptoms Patient denies exposure to infectious person. Patient denies travel to an Ebola-affected area in the 21 days before illness onset. No symptoms or risks identified at this time. Initial Sepsis Screen: Does the patient meet any 2 criteria? No. Patient's initial sepsis screen is negative. Does the patient have a suspected source of infection? No. Patient's initial sepsis screen is negative. Risk Assessment: Do you want to hurt yourself or someone else? Patient reports no desire to harm self or others. Onset of symptoms was April 05, 2021. 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 Flu vaccine is up to date. - Social history:: Smoking status: Patient denies any tobacco usage or history of. Screenin:55 Abuse screen: Denies threats or abuse. Denies injuries from another. Nutritional rr5 screening: No deficits noted. Tuberculosis screening: No symptoms or risk factors identified. Fall Risk IV access (20 points). Total Pinedo Fall Scale indicates No Risk (0-24 pts). Assessment: 20:30 General: Appears in no apparent distress. uncomfortable, Behavior is calm, cooperative, rr5 appropriate for age. 20:30 Pain: Complains of pain in abdomen Pain currently is 8 out of 10 on a pain scale. rr5 Quality of pain is described as aching, Pain began gradually, Is intermittent. Neuro: Level of Consciousness is awake, alert, obeys commands, Oriented to person, place, time. Cardiovascular: Capillary refill < 3 seconds Patient's skin is warm and dry. Respiratory: Airway is patent Respiratory effort is even, unlabored, Respiratory pattern is regular, symmetrical. GI: Abdomen is round non-distended, Reports lower abdominal pain, upper abdominal pain, bloody stool, nausea, vomiting. : No signs and/or symptoms were reported regarding the genitourinary system. EENT: No signs and/or symptoms were reported regarding the EENT system. Derm: Skin is intact, is healthy with good turgor, Skin temperature is warm. Musculoskeletal: No signs and/or symptoms reported regarding the musculoskeletal system. 21:20 Reassessment: Patient appears in no apparent distress at this time. abdominal pain and rr5 nausea, ED provider aware with order made and carried out Patient states symptoms have not improved. 22:17 Reassessment: Patient appears in no apparent distress at this time. Patient is alert, rr5 oriented x 3, equal unlabored respirations, skin warm/dry/pink. discharge instruction given and explained without complaints made Patient states feeling better. Patient states symptoms have improved. Vital Signs: 19:40 BP 146 / 84; Pulse 109; Resp 20 S; Temp 98.5(TE); Pulse Ox 97% on R/A; Weight 92.99 kg ca1 (R); Height 5 ft. 6 in. (167.64 cm) (R); Pain 9/10; 20:40 BP 136 / 89; Pulse 110; Resp 19; Pulse Ox 98% ; rr5 22:19 BP 125 / 80; Pulse 95; Resp 16; Pulse Ox 98% ; rr5 19:40 Body Mass Index 33.09 (92.99 kg, 167.64 cm) ca1 ED Course: 19:35 Patient arrived in ED. am4 19:42 Triage completed. ca1 19:45 Arm band placed on right wrist. ca1 19:54 Amari Cam NP is PHCP. pm1 19:54 Will Patterson MD is Attending Physician. pm1 20:15 Missed attempt(s): 22 gauge in left antecubital area. Bleeding controlled, band aid ca1 applied, catheter tip intact. 20:21 Initial lab(s) drawn, by me, sent to lab. Inserted saline lock: 22 gauge in left ca1 forearm, using aseptic technique. Blood collected. 20:30 Melo Michel RN is Primary Nurse. rr5 20:30 Patient has correct armband on for positive identification. Placed in gown. Bed in low rr5 position. Call light in reach. Side rails up X2. Pulse ox on. NIBP on. 20:30 No provider procedures requiring assistance completed. IV discontinued, intact, rr5 bleeding controlled, No redness/swelling at site. Pressure dressing applied. 20:51 Chest Single View XRAY In Process Unspecified. EDMS 20:53 CT Abd/Pelvis - IV Contrast Only In Process Unspecified. EDMS Administered Medications: 20:40 Drug: ProTONIX (pantoprazole) 40 mg Route: IVP; Site: left forearm; rr5 21:40 Follow up: Response: No adverse reaction rr5 20:40 Drug: NS 0.9% 500 ml Route: IV; Rate: bolus; Site: left forearm; rr5 21:30 Follow up: Response: No adverse reaction; IV Status: Completed infusion; IV Intake: rr5 500ml 20:42 Drug: Phenergan (promethazine) 12.5 mg Route: IVP; Site: left forearm; rr5 21:10 Follow up: Response: No adverse reaction; No change in condition rr5 20:45 Drug: Dilaudid (HYDROmorphone) 1 mg {Note: rass 0.} Route: IVP; Site: left forearm; rr5 21:10 Follow up: Response: No adverse reaction; No change in condition; RASS: Alert and Calm rr5 (0) 21:21 Drug: Phenergan (promethazine) 12.5 mg Route: IVP; Site: left forearm; rr5 22:22 Follow up: Response: No adverse reaction; Marked relief of symptoms rr5 21:23 Drug: Dilaudid (HYDROmorphone) 1 mg {Note: rass 0.} Route: IVP; Site: left forearm; rr5 22:22 Follow up: Response: No adverse reaction; Marked relief of symptoms; RASS: Alert and rr5 Calm (0) Intake: 21:30 IV: 500ml; Total: 500ml. rr5 Outcome: 21:49 Discharge ordered by MD. pm1 22:22 Discharged to home ambulatory, with family. rr5 22:22 Condition: stable 22:22 Discharge instructions given to patient, Instructed on discharge instructions, follow rr5 up and referral plans. medication usage, Demonstrated understanding of instructions, follow-up care, medications, Prescriptions given X 2. 22:23 Patient left the ED. rr5 Signatures: Dispatcher [employer] EDMS Amari Cam, DATA SOFTWARE ENGINEER DATA SOFTWARE ENGINEER pm1 Melo Michel RN RN rr5 Taya Capone RN RN ca1 Yesenia Muñoz am4 Corrections: (The following items were deleted from the chart) 19:42 19:40 Chief complaint: Patient states: N/VD abdominal cramping x 1 week. Had HX of GI ca1 bleeds. Bloody stool, throwing up blood, coughing up blood. ca1
[2021-04-05 22:42] VITALS: TEMP 98.5
[2021-04-05 22:47] VITALS: O2SAT 98
[2021-04-05 22:48] VITALS: BP 125/80
[2021-04-05 22:58] LABS: Blood Morphology Comment NOTED (NOT SEEN); Platelet Estimate ADEQ; White Blood Cell Scan OK (OK)
[2021-04-05 22:59] LABS: Anisocytosis 3+
== END 2021-04-05 22:23 | disposition home or self-care (01) ==
LOC: ER 19:30
DX: R11.2 Nausea with vomiting, unspecified (principal); R19.7 Diarrhea, unspecified; R10.13 Epigastric pain; R10.11 Right upper quadrant pain; K50.90 Crohn's disease, unspecified, without complications; M32.9 Systemic lupus erythematosus, unspecified; M34.9 Systemic sclerosis, unspecified
CPT/HCPCS: 96361; 85025; 80048; 36415; 86900; 86850; 82565; 86901; 80076; 82272; 83690; 74177; 71045; 96375; 96374; 99284; Q9967; J2550 ×2; C9113; J1170 ×2; J7040

== ENCOUNTER 2021-08-26 03:39 | Inpatient (IN) | payer OTHER ==
[2021-08-26] MEDS ORDERED: ASPIRIN 81 MG CHEWABLE TABLET ONE ×2 (04:28→12:36)
[2021-08-26 04:39] LABS: Absolute Lymphocytes (CBC) 1.6 K/uL (0.7-4.9); Basophils % 0.3 % (0-1.3); Hematocrit 43.4 % (36.0-45.0); Lymphocytes % 11.2 % (15.3-44.8); MPV 7.9 fL (7.6-11.3); RBC Red Blood Cell Count 4.71 M/uL (3.86-4.86)
[2021-08-26 04:40] LABS: Protime INR 1.03
[2021-08-26 05:06] LABS: ALT/SGPT 76 U/L (12-78); Albumin 3.7 g/dL (3.4-5.0); Alkaline Phosphatase 147 U/L (45-117); BUN Blood Urea Nitrogen 8 mg/dL (7-18); Bicarbonate 29 mmol/L (21-32); Bilirubin Direct < 0.1 mg/dL (0-0.2); Bilirubin Total 0.3 mg/dL (0.2-1.0); Glucose Level 129 mg/dL (74-106); Lipase 66 U/L (73-393); NT PRO-BNP 99 pg/mL (<125); Potassium 3.3 mmol/L (3.5-5.1); Protein, Total 7.7 g/dL (6.4-8.2); Sodium Level 137 mmol/L (136-145); Troponin (Emerg Dept Use Only) < 0.02 ng/mL (0.0-0.045)
[2021-08-26 05:07] LABS: AST/SGOT 30 U/L (15-37)
--- NOTE | 2021-08-26 05:07 | ER ---
Nurse's Notes [facility] Name: Liza Dexter Age: 45 yrs Sex: Female : 1975 Arrival Date: 08/26/2021 Time: 03:42 Bed 20 Private MD: Diagnosis: Chest pain, unspecified;Essential (primary) hypertension;Functional dyspepsia;Hypokalemia;Elevated white blood cell count Presentation: 08/26 03:57 Chief complaint: Patient states: States onset of misternal chest pain raditating into wg her abd and around her ribs and into her back since yesterday morning. States she has vomited countless times and has been have loose green stools. Pt listed off long hx of allergies and states she need Phenergan and Dilaudid IV. Coronavirus screen: Vaccine status: Patient reports being unvaccinated. Ebola Screen: Patient negative for fever greater than or equal to 101.5 degrees Fahrenheit, and additional compatible Ebola Virus Disease symptoms Patient denies exposure to infectious person. Patient denies travel to an Ebola-affected area in the 21 days before illness onset. No symptoms or risks identified at this time. Initial Sepsis Screen: Does the patient meet any 2 criteria? No. Patient's initial sepsis screen is negative. Does the patient have a suspected source of infection? No. Patient's initial sepsis screen is negative. Risk Assessment: Do you want to hurt yourself or someone else? Patient reports no desire to harm self or others. Onset of symptoms was August 25, 2021 at 08:00. 03:57 Method Of Arrival: Ambulatory 03:57 Acuity: JUAN 3 wg Triage Assessment: 04:01 General: Appears in no apparent distress. Behavior is cooperative, appropriate for age. wg Pain: Complains of pain in Pt reports pain in chest, abd, rbis and back. Cardiovascular: No deficits noted. Rhythm is sinus rhythm. Respiratory: No deficits noted. GI: Reports nausea, vomiting. 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 - Social history:: Smoking status: Patient denies any tobacco usage or history of. - Family history:: not pertinent. Screenin:09 Abuse screen: Denies threats or abuse. Denies injuries from another. Nutritional sj1 screening: No deficits noted. Tuberculosis screening: No symptoms or risk factors identified. Fall Risk None identified. Assessment: 04:10 Pain: Pain began. sj1 04:11 General: Appears in no apparent distress. Behavior is cooperative, appropriate for age. sj1 Pain: Pain radiates to epigastric Pain currently is 10 out of 10 on a pain scale. at worst was 10 out of 10 on a pain scale. level that patient reports is acceptable is 0 out of 10 on a pain scale. Quality of pain is described as sharp. Neuro: No deficits noted. Cardiovascular: Reports chest pain, nausea, vomiting, Rhythm is sinus rhythm Chest pain is described as mild. Respiratory: No deficits noted. GI: Reports epigastric pain, nausea, Pain is 10 out of 10 on a pain scale. vomiting. : No deficits noted. EENT: No deficits noted. Derm: No deficits noted. Musculoskeletal: No deficits noted. 06:52 Reassessment: Patient appears in no apparent distress at this time. Pt requesting pain sj1 Surinder pate notified. Awaiting orders. Vital Signs: 03:57 BP 161 / 105; Pulse 98; Resp 18; Temp 98.6; Pulse Ox 100% on R/A; Weight 95.25 kg; wg Height 5 ft. 6 in. (167.64 cm); Pain 10/10; 06:52 BP 152 / 87 LA Sitting (auto/reg); Pulse 90; Resp 16 S; Pulse Ox 98% on R/A; Pain 10/10;sj1 09:00 BP 139 / 82; Pulse 91; Resp 16; Pulse Ox 99% ; Pain 10/10; ch5 03:57 Body Mass Index 33.89 (95.25 kg, 167.64 cm) ED Course: 03:42 Patient arrived in ED. wm 03:47 Benjamín Mcfarland MD is Attending Physician. paola 04:00 NT PRO-BNP Sent. sj1 04:00 PT-INR Sent. sj1 04:00 Troponin (emerg Dept Use Only) Sent. sj1 04:00 XRAY Chest (1 view) Sent. sj1 04:00 Magnesium Sent. sj1 04:00 LFT's Sent. sj1 04:00 CBC with Diff Sent. sj1 04:00 Basic Metabolic Panel Sent. sj1 04:00 Lipase Sent. sj1 04:00 Basic Metabolic Panel Sent. sj1 04:01 Triage completed. wg 04:01 Magnesium Sent. sj1 04:01 Liver (Hepatic) Function Sent. sj1 04:01 CBC with Automated Diff Sent. sj1 04:01 Arm band placed on right wrist. EKG completed in triage. Results shown to MD. EKG wg completed in triage. Results shown to MD. 04:09 Inserted saline lock: 20 gauge in right wrist, using aseptic technique. Blood sj1 collected. Patient maintains SpO2 saturation greater than 95% on room air. 04:09 Patient has correct armband on for positive identification. Placed in gown. Bed in low sj1 position. Call light in reach. Side rails up X 1. rn otolaryngology on. Pulse ox on. NIBP on. 04:10 No provider procedures requiring assistance completed. Inserted saline lock:. sj1 04:24 SARS-COV-2 RT PCR Sent. sj1 05:05 Melo Saxena MD is Hospitalizing Provider. paola 05:17 CT Abd/Pelvis - IV Contrast Only Sent. sj1 05:32 CT Abd/Pelvis - IV Contrast Only In Process Unspecified. EDMS 07:08 Marin Rodriges, RN is Primary Nurse. ch5 Administered Medications: 05:15 Drug: Dilaudid (HYDROmorphone) 1 mg Route: IVP; Site: right antecubital; sj1 05:58 Follow up: Response: Pain is unchanged, physician notified sj1 05:15 Drug: Phenergan (promethazine) 12.5 mg Route: IVP; Site: right wrist; sj1 05:26 Follow up: Response: No adverse reaction; Nausea is decreased sj1 05:16 Drug: ProTONIX (pantoprazole) 40 mg Route: IVP; Site: right antecubital; sj1 05:27 Follow up: Response: No adverse reaction sj1 05:59 Drug: NS 0.9% with KCl 20 mEq/L 1000 ml Route: IV; Rate: 125 ml/hr; Site: right sj1 antecubital; 06:09 Drug: Aspirin Chewable Tablet 324 mg Route: PO; sj1 06:53 Follow up: Response: No adverse reaction; Pain is unchanged, physician notified sj1 09:14 Drug: Dilaudid (HYDROmorphone) 1 mg Route: IVP; Site: right wrist; [facility] 09:14 Drug: Phenergan (promethazine) 25 mg Route: IVP; Site: right wrist; 5 09:14 Drug: Maalox (aluminum hydroxide, magnesium hydroxide, simethicone) Suspension (200 ch5 mg-200 mg-20 mg/5 mL) 30 ml Route: PO; Outcome: 05:06 Decision to Hospitalize by Provider. paola 13:03 Admitted to Med/surg [facility] 13:03 Condition: improved 13:03 Instructed on the need for admit. 13:44 Patient left the ED. kj1 Signatures: Dispatcher [employer] EDMS Benjamín Mcfarland MD MD cha Munoz, Edgar, RN RN Sasha Ross kj1 Alva Matthews Christopher, RN RN [facility] Sujit Fox RN wg Johnson, Sade, RN RN sj1 Corrections: (The following items were deleted from the chart) 04:18 04:07 CORONAVIRUS+ drawn and sent. olman MAYEN
--- NOTE | 2021-08-26 05:07 | EDPHYS ---
Physician Documentation [facility] Name: Liza Dexter Age: 45 yrs Sex: Female : 1975 Arrival Date: 08/26/2021 Time: 03:42 Bed 20 Private MD: CORTES Physician Benjamín Mcfarland HPI: 08/26 04:57 This 45 yrs old Female presents to ER via Ambulatory with complaints of Chest paola Pain > 30 y/o, Vomiting. 04:57 The patient or guardian reports chest pain that is located primarily in the substernal paola area, epigastric area. Onset: 1 day(s) ago. The pain does not radiate. Associated signs and symptoms: Pertinent positives: abdominal pain. The chest pain is described as a pressure. Modifying factors: The symptoms are alleviated by nothing. the symptoms are aggravated by nothing. Severity of pain: At its worst the pain was mild in the emergency department the pain is unchanged. The patient has not experienced similar symptoms in the past. 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 - Social history:: Smoking status: Patient denies any tobacco usage or history of. - Family history:: not pertinent. ROS: 04:58 Constitutional: Negative for fever, chills, and weight loss, Eyes: Negative for injury, paola pain, redness, and discharge, ENT: Negative for injury, pain, and discharge, Neck: Negative for injury, pain, and swelling, Respiratory: Negative for shortness of breath, cough, wheezing, and pleuritic chest pain, Back: Negative for injury and pain, : Negative for injury, bleeding, discharge, and swelling, MS/Extremity: Negative for injury and deformity, Skin: Negative for injury, rash, and discoloration, Neuro: Negative for headache, weakness, numbness, tingling, and seizure, Psych: Negative for depression, anxiety, suicide ideation, homicidal ideation, and hallucinations, Allergy/Immunology: Negative for hives, rash, and allergies, Endocrine: Negative for neck swelling, polydipsia, polyuria, polyphagia, and marked weight changes. 04:58 Cardiovascular: Positive for chest pain, of the chest. 04:58 Abdomen/GI: Positive for abdominal pain, of the epigastric area, right upper quadrant and left upper quadrant. Exam: 04:58 Constitutional: This is a well developed, well nourished patient who is awake, alert, paola and in no acute distress. Head/Face: Normocephalic, atraumatic. Eyes: Pupils equal round and reactive to light, extra-ocular motions intact. Lids and lashes normal. Conjunctiva and sclera are non-icteric and not injected. Cornea within normal limits. Periorbital areas with no swelling, redness, or edema. ENT: Nares patent. No nasal discharge, no septal abnormalities noted. Tympanic membranes are normal and external auditory canals are clear. Oropharynx with no redness, swelling, or masses, exudates, or evidence of obstruction, uvula midline. Mucous membranes moist. Neck: Trachea midline, no thyromegaly or masses palpated, and no cervical lymphadenopathy. Supple, full range of motion without nuchal rigidity, or vertebral point tenderness. No Meningismus. Chest/axilla: Normal chest wall appearance and motion. Nontender with no deformity. No lesions are appreciated. Cardiovascular: Regular rate and rhythm with a normal S1 and S2. No gallops, murmurs, or rubs. Normal PMI, no JVD. No pulse deficits. Respiratory: Lungs have equal breath sounds bilaterally, clear to auscultation and percussion. No rales, rhonchi or wheezes noted. No increased work of breathing, no retractions or nasal flaring. Back: No spinal tenderness. No costovertebral tenderness. Full range of motion. Skin: Warm, dry with normal turgor. Normal color with no rashes, no lesions, and no evidence of cellulitis. MS/ Extremity: Pulses equal, no cyanosis. Neurovascular intact. Full, normal range of motion. Neuro: Awake and alert, GCS 15, oriented to person, place, time, and situation. Cranial nerves II-XII grossly intact. Motor strength 5/5 in all extremities. Sensory grossly intact. Cerebellar exam normal. Normal gait. Psych: Awake, alert, with orientation to person, place and time. Behavior, mood, and affect are within normal limits. 04:58 ECG was reviewed by the Attending Physician. 04:58 Abdomen/GI: Inspection: distension, Bowel sounds: active, Palpation: mild abdominal tenderness, in the epigastric area, right upper quadrant and left upper quadrant, Liver: no appreciated palpable abnormalities, Hernia: not appreciated. Vital Signs: 03:57 BP 161 / 105; Pulse 98; Resp 18; Temp 98.6; Pulse Ox 100% on R/A; Weight 95.25 kg; wg Height 5 ft. 6 in. (167.64 cm); Pain 10/10; 06:52 BP 152 / 87 LA Sitting (auto/reg); Pulse 90; Resp 16 S; Pulse Ox 98% on R/A; Pain 10/10;sj1 09:00 BP 139 / 82; Pulse 91; Resp 16; Pulse Ox 99% ; Pain 10/10; ch5 03:57 Body Mass Index 33.89 (95.25 kg, 167.64 cm) wg MDM: 03:53 Patient medically screened. paola 05:03 Differential diagnosis: abnormal EKG, acute myocardial infarction. HEART Score: paola History: Slightly Suspicious (0), ECG: Non specific repolarization disturbance / LBTB / PM (1), Age: > 45 and < 65 years (1), Risk Factors: 1 or 2 risk factors (1), [Hypertension] [+ Family HX]. The patient was given aspirin in the Emergency Department. The patient's deep vein thrombosis risk score was calculated as follows: Total Score: 0. This patient was found to be at low risk for a deep vein thrombosis by using the Well's assessment criteria. The patient's pulmonary embolism risk score was calculated as follows: Total Score: 0-2 points. This patient was found to be at low risk for a pulmonary embolism by using the Well's assessment criteria. ROBIN Risk Score: TOTAL SCORE = 0. Data reviewed: vital signs, nurses notes, EMS record, lab test result(s), EKG, radiologic studies, CT scan, plain films. Data interpreted: air sampling and monitoring: rate is 98 beats/min, rhythm is regular, Pulse oximetry: on room air is 100 %. Test interpretation: by ED physician or midlevel provider: ECG, plain radiologic studies. Counseling: I had a detailed discussion with the patient and/or guardian regarding: the historical points, exam findings, and any diagnostic results supporting the discharge/admit diagnosis, lab results, radiology results, the need for further work-up and treatment in the hospital. 08/26 03:47 Order name: Basic Metabolic Panel [facility] 08/26 03:47 Order name: CBC with Diff [facility] 08/26 03:47 Order name: LFT's [facility] 08/26 03:47 Order name: Magnesium [facility] 08/26 03:47 Order name: NT PRO-BNP; Complete Time: 05:[address] [facility] 08/26 03:47 Order name: PT-INR; Complete Time: 04:[address] [facility] 08/26 03:47 Order name: Troponin (emerg Dept Use Only); Complete Time: 05:[address] [facility] 08/26 03:47 Order name: Lipase; Complete Time: 05:[address] [facility] 08/26 03:48 Order name: Basic Metabolic Panel; Complete Time: 05:08 [facility] 08/26 03:48 Order name: CBC with Automated Diff; Complete Time: 04:56 [facility] 08/26 03:48 Order name: Liver (Hepatic) Function; Complete Time: 05:08 [facility] 08/26 03:48 Order name: Magnesium; Complete Time: 05:08 [facility] 08/26 04:18 Order name: SARS-COV-2 RT PCR; Complete Time: 06:36 [facility] 08/26 03:47 Order name: XRAY Chest (1 view) [facility] 08/26 03:47 Order name: EKG; Complete Time: 03:[address] [facility] 08/26 03:47 Order name: Cardiac monitoring; Complete Time: 04:[address] [facility] 08/26 03:47 Order name: EKG - Nurse/Tech; Complete Time: 04:[address] [facility] 08/26 03:47 Order name: IV Saline Lock; Complete Time: 04:[address] [facility] 08/26 03:47 Order name: Labs collected and sent; Complete Time: 04:[address] [facility] 08/26 05:02 Order name: CT Abd/Pelvis - IV Contrast Only [facility] 08/26 12:57 Order name: Urine Dipstick-Ancillary [facility] 08/26 03:47 Order name: O2 Per Protocol; Complete Time: 04:[address] [facility] 08/26 03:47 Order name: O2 Sat Monitoring; Complete Time: 04:[address] [facility] 08/26 03:47 Order name: Urine Dipstick-Ancillary (obtain specimen); Complete Time: 05:[address] [facility] EC:58 Rate is 93 beats/min. Rhythm is regular. QRS [place] is Normal. DC interval is normal. QRS paola interval is normal. QT interval is normal. No Q waves. T waves are Normal. ST Segment is depressed in leads III, aVF, V3, V4. Clinical impression: NSR w/ Non-specific ST/T Changes. Administered Medications: 05:15 Drug: Dilaudid (HYDROmorphone) 1 mg Route: IVP; Site: right antecubital; sj1 05:58 Follow up: Response: Pain is unchanged, physician notified sj1 05:15 Drug: Phenergan (promethazine) 12.5 mg Route: IVP; Site: right wrist; sj1 05:26 Follow up: Response: No adverse reaction; Nausea is decreased sj1 05:16 Drug: ProTONIX (pantoprazole) 40 mg Route: IVP; Site: right antecubital; sj1 05:27 Follow up: Response: No adverse reaction sj1 05:59 Drug: NS 0.9% with KCl 20 mEq/L 1000 ml Route: IV; Rate: 125 ml/hr; Site: right sj1 antecubital; 06:09 Drug: Aspirin Chewable Tablet 324 mg Route: PO; sj1 06:53 Follow up: Response: No adverse reaction; Pain is unchanged, physician notified sj1 09:14 Drug: Dilaudid (HYDROmorphone) 1 mg Route: IVP; Site: right wrist; ch5 09:14 Drug: Phenergan (promethazine) 25 mg Route: IVP; Site: right wrist; ch5 09:14 Drug: Maalox (aluminum hydroxide, magnesium hydroxide, simethicone) Suspension (200 ch5 mg-200 mg-20 mg/5 mL) 30 ml Route: PO; Disposition Summary: 08/26/21 05:06 Hospitalization Ordered Hospitalization Status: Observation paola Provider: Melo Saxena cha Location: Telemetry/MedSurg (observation) paola Condition: Stable paola Problem: new paola Symptoms: have improved paola Bed/Room Type: Standard [facility] Room Assignment: 218(08/26/21 12:14) ja1 Diagnosis - Chest pain, unspecified paola - Essential (primary) hypertension paola - Functional dyspepsia paola - Hypokalemia paola - Elevated white blood cell count paola Forms: - Medication Reconciliation Form paola - SBAR form paola Signatures: Dispatcher [employer] EDMS Benjamín Mcfarland MD MD cha Aguilar, Jose, RN RN ja1 Marin Rodriges RN RN ch5 Sujit Fox RN wg Johnson, Sade, RN RN sj1 Corrections: (The following items were deleted from the chart) 04:18 03:49 CORONAVIRUS+MR.LAB.BRZ ordered. EDMS EDMS 12:14 05:06 paola ospina
[2021-08-26] MEDS ORDERED: PANTOPRAZOLE 40 MG INJ ONE (05:29)
[2021-08-26] MEDS ORDERED: HYDROMORPHONE HCL 1 MG/ML INJ ONE (05:29)
[2021-08-26] MEDS ORDERED: PROMETHAZINE INJ 25 MG/ML AMP ONE ×2 (05:29→09:23)
[2021-08-26] MEDS ORDERED: NA CHLORIDE 0.9% 50 ML ONE (05:30)
--- NOTE | 2021-08-26 06:10 | P.HP ---
Certification for Inpatient Patient admitted to: Observation With expected LOS: <2 Midnights Patient will require the following post-hospital care: None Practitioner: I am a practitioner with admitting privileges, knowledge of patient current condition, hospital course, and medical plan of care. Services: Services provided to patient in accordance with Admission requirements found in Title 42 Section 412.3 of the Code of Federal Regulations <Surinder Bennett Tricia - Last Filed: 08/26/21 06:05> Patient History Date of Service: 08/26/21 Reason for admission: chest pain History of Present Illness: Ms. Dexter is a 45 yo F with hisotry of anemia, Chron's disease, SLE, raynaud's, and scleroderma who presents with 9/10 stabbing sternal chest pain radiating to her right jaw beginning yesterday while she was walking lasting for 30 seconds. The pain was so severe she fell to her knees. She also reports vomiting, SOB, sweats and lightheadedness. Denies vasospasms. She has had no relief of symptoms with her home steroids or methotrexate. She says her insurance no longer covers her home medications so she has been feeling worse over the past few weeks. She last had an episode like this in January/February and symptoms improved with protonix and dicyclomine. 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 WBC 15.5, K 3.3. - Past Medical/Surgical History Diabetic: No -: CHRON'S -: COLITIS -: SCLERODERMA -: EPILEPSY -: ANEMIA -: RAYNAUD'S SYNDROME -: MIGRAINE HEADACHES -: HYPERTENSION -: HERNIA REPAIR -: IVAN -: TONSILLECTOMY -: REMOVAL OF STOMACH -: REMOVAL OF ESOPHAGUS -: INTERPOSITION OF JEJUNUM - Family History Sister -: Heart disease, Cancer Father -: Heart disease - Social History Smoking Status: Never smoker Alcohol use: No CD- Drugs: No Caffeine use: Yes Place of Residence: Home <Keyla Bennettsuha Clarke - Last Filed: 08/26/21 06:05> Date of Service: 08/26/21 <Addison Almanzar - Last Filed: 09/01/21 03:07> Allergies Cephalosporins Allergy (Verified 05/04/18 13:53) cardiac arrest codeine [Codeine] Allergy (Verified 06/27/18 13:53) cardiac arrest esomeprazole mag [From Nexium] Allergy (Verified 05/04/18 13:53) Anaphylaxis meperidine HCl [From Demerol] Allergy (Verified 05/04/18 13:53) cardiac arrest morphine Allergy (Verified 05/04/18 13:53) cardiac arrest ondansetron [From Zofran] Allergy (Verified 05/04/18 13:53) severe bradycardia zolpidem [From Ambien] Adverse Reaction (Verified 05/04/18 13:53) sleep walking/ hallucinations Home Medications: Hydrocodone 10/APAP 325 [[place] 10/325*] 1 tab PO Q6H PRN 05/04/18 diazePAM [Diazepam] 10 mg PO BEDTIME PRN 05/04/18 Amlodipine [Norvasc*] 1 tab PO DAILY 08/26/21 Cholecalciferol (Vitamin D3) [Vitamin D3] 1 tab PO SEECOM 08/26/21 Dextroamphetamine/Amphetamine [Adderall Xr 20 mg Capsule] 1 tab PO DAILY 08/26/21 Dicyclomine HCl 1 tab PO QID 08/26/21 Ketoconazole/Hydrocortisone [Pheyo 2.5%-2% Cream] 1 appl TOP DAILY 08/26/21 Medroxyprogester [Depo Provera*] 150 mg IJ SEECOM 08/26/21 Methotrexate Sodium/Pf [Methotrexate 50 mg/2 ml Vial] 50 mg IJ SEECOM 08/26/21 Pantoprazole [Protonix Tab*] 1 tab PO BID 08/26/21 Promethazine Tab [Phenergan*] 1 tab PO Q6H PRN 08/26/21 Hydrocodone 7.5/APAP 325 [[place] 7.5/325 mg] 1 tab PO Q6H PRN #28 tab 08/30/21 Review of Systems 10-point ROS is otherwise unremarkable General: Sweats, As per HPI Eyes: Unremarkable ENT: Unremarkable Respiratory: Shortness of Breath Cardiovascular: Chest Pain, As per HPI Gastrointestinal: Nausea, Vomiting, As per HPI Genitourinary: Unremarkable Musculoskeletal: Unremarkable Integumentary: Unremarkable Neurological: Unremarkable Lymphatics: Unremarkable <Surinder Bennett - Last Filed: 08/26/21 06:05> Physical Examination - Physical Exam General: Alert, In no apparent distress HEENT: Atraumatic, PERRLA, Mucous membr. moist/pink, EOMI, Sclerae nonicteric Neck: Supple, 2+ carotid pulse no bruit, No LAD, Without JVD or thyroid abnormality Respiratory: Clear to auscultation bilaterally, Normal air movement Cardiovascular: Regular rate/rhythm, Normal S1 S2 Gastrointestinal: Normal bowel sounds, No tenderness Musculoskeletal: No tenderness Integumentary: No rashes Neurological: Normal gait, Normal speech, Normal strength at 5/5 x4 extr, Normal tone, Normal affect Lymphatics: No axilla or inguinal lymphadenopathy - Studies Laboratory Data (last 24 hrs) 08/26/21 04:00: PT 11.8, INR 1.03 08/26/21 04:00: WBC 14.50 H, Hgb 15.0, Hct 43.4, Plt Count 327 08/26/21 04:00: Sodium 137, Potassium 3.3 L, BUN 8, Creatinine 0.69, Glucose 129 H, Magnesium 2.0, Total Bilirubin 0.3, AST 30, ALT 76, Alkaline Phosphatase 147 H, Lipase 66 L <Surinder Bennett - Last Filed: 08/26/21 06:05> Assessment and Plan - Problems (Diagnosis) (1) Chest pain Onset Date: 05/05/18 Status: Acute Qualifiers: Chest pain type: unspecified Qualified Code(s): R07.9 - Chest pain, unspecified (2) Raynaud's disease Onset Date: 05/05/18 Status: Chronic Qualifiers: Raynaud?s-associated gangrene presence: without gangrene Qualified Code(s): I73.00 - Raynaud's syndrome without gangrene (3) Scleroderma Onset Date: 05/05/18 Status: Chronic - Plan continue IV protonix and dicyclomine daily ASA, statin, lipid and thyroid panel pending, DVT ppx trend troponins and repeat EKG, hydralazine PRN for BP spikes Ua pending potassium replacement protocol reconcile and continue home medications will consider GI and cardiology consultation Discharge Plan: Home Plan to discharge in: 24 Hours - Advance Directives Does patient have a Living Will: Yes Does patient have a Durable POA for Healthcare: Yes - Code Status/Comfort Care Code Status Assessed: Yes (full code ) Critical Care: No Time Spent Managing Pts Care (In Minutes): 70 <Surinder Bennett - Last Filed: 08/26/21 06:05> - Problems (Diagnosis) (1) Acute pancreatitis Status: Acute (2) Intractable nausea and vomiting Status: Acute (3) History of Crohn's disease Status: Acute (4) Raynaud's disease Onset Date: 05/05/18 Status: Chronic Qualifiers: Raynaud?s-associated gangrene presence: without gangrene Qualified Code(s): I73.00 - Raynaud's syndrome without gangrene (5) Scleroderma Onset Date: 05/05/18 Status: Chronic <Addison Almanzar - Last Filed: 09/01/21 03:07> Date of Service: 08/26/21 Subjective Agree with HPI as mentioned above Review of Systems 10-point ROS is otherwise unremarkable Physical Examination - Vital Signs Reviewed - Physical Exam General: Alert, In no apparent distress HEENT: Atraumatic, PERRLA, EOMI Neck: Supple, JVD not distended Respiratory: Clear to auscultation bilaterally, Normal air movement Cardiovascular: Regular rate/rhythm, Normal S1 S2 Gastrointestinal: Normal bowel sounds, No tenderness Musculoskeletal: No tenderness Integumentary: No rashes Neurological: Normal speech, Normal tone, Normal affect Lymphatics: No axilla or inguinal lymphadenopathy Assessment & Plan - Problems (Diagnosis) (1) Acute pancreatitis Current Visit: Yes Status: Acute (2) Intractable nausea and vomiting Current Visit: Yes Status: Acute (3) History of Crohn's disease Current Visit: Yes Status: Acute (4) Raynaud's disease Onset Date: 05/05/18 Current Visit: No Status: Chronic Qualifiers: Raynaud?s-associated gangrene presence: without gangrene Qualified Code(s): I73.00 - Raynaud's syndrome without gangrene (5) Scleroderma Onset Date: 05/05/18 Current Visit: No Status: Chronic - Plan 1. Continue with IV hydration 2. Continue with IV antiemetics 3. Continue with pain control 4. NPO 5. GI consultation; 6. Monitor CBC, BMP, LFTs and lipase along with electrolytes. 7. Repeat imaging in the morning 8. GI and DVT prophylaxis - Advance Directives Does patient have a Living Will: Yes Does patient have a Durable POA for Healthcare: Yes <Addison Almanzar - Last Filed: 09/01/21 03:07>
[2021-08-26] MEDS ORDERED: NS KCL 20MEQ 1,000 ML IV ONE (06:22)
[2021-08-26] MEDS ORDERED: HYDROMORPHONE HCL 2 MG/ML inj ONE ×2 (09:24→13:08)
[2021-08-26] MEDS ORDERED: MAGNES/ALUMIN/SIMET 30ML UCUP ONE (09:37)
[2021-08-26] MEDS ORDERED: NITROGLYCERIN 0.4 MG/TAB SL PRN (11:55)
[2021-08-26] MEDS ORDERED: DICYCLOMINE HCL 10 MG CAP PO ONE (11:55)
[2021-08-26] MEDS ORDERED: HYDRALAZINE HCL 20 MG/ML VIAL IV PRN (11:55)
[2021-08-26] MEDS ORDERED: SODIUM CHLORIDE 0.9% 10ML INJ IV PRN (11:55)
[2021-08-26] MEDS ORDERED: ONDANSETRON 4 MG/2 ML VIAL IV PRN (11:55)
[2021-08-26] MEDS ORDERED: DICYCLOMINE HCL 10 MG CAP ONE (12:36)
[2021-08-26] MEDS: HYDROMORPHONE HCL 1 MG/ML INJ IV PRN ×2 (12:47→17:33)
[2021-08-26 12:56] LABS: Urine Blood 1+ (Negative); Urine Glucose Negative (Negative); Urine Protein Negative (Negative)
[2021-08-26 13:46] VITALS: BMI 33.9
[2021-08-26] MEDS: ACETAMINOPHEN 500 MG TAB PO PRN (13:50)
--- NOTE | 2021-08-26 14:00 | RAD REPORT ---
EXAM DESCRIPTION: RAD - Chest Single View - 08/26/2021 1:27 pm CLINICAL HISTORY: CHEST PAIN COMPARISON: Portable April 05 TECHNIQUE: AP portable chest image was obtained 08/26/2021 1:27 pm . FINDINGS: Lungs are clear. Heart and vasculature are normal. No measurable pleural effusion and no p neumothorax. No acute bony abnormality seen. No acute aortic findings suspected. Due to technical malfunctions, the final written report was delayed. IMPRESSION: No acute cardiopulmonary process. No significant change from comparison study.
[2021-08-26] MEDS ORDERED: INFLUENZA VACCINE (for 6+ mo) 0.5 ML DOSE IMVAC ONE (15:00)
--- NOTE | 2021-08-26 16:43 | EKG ---
Test Date: 2021-08-26 Test Time: 04:00:23 Component Assembler Supervisor: SAHARA MEASUREMENT RESULTS: Intervals: Rate: 93 WA: 136 QRSD: 78 QT: 362 QTc: 450 [place]: P: 11 WA: 136 QRS: 18 T: -9 INTERPRETIVE STATEMENTS: Normal sinus rhythm Nonspecific T wave abnormality Abnormal ECG Compared to ECG 12/09/2019 01:07:27 T-wave abnormality now present Electronically Signed On 08-26-21 16:40:56 CDT by Doroteo Elam
[2021-08-26] MEDS: PANTOPRAZOLE 40 MG INJ IVP SCH (17:28)
[2021-08-26] MEDS ORDERED: PROMETHAZINE INJ 25 MG/ML AMP IV PRN (18:12)
[2021-08-26] MEDS ORDERED: PROMETHAZINE INJ 25 MG/ML AMP IV ONE (20:50)
[2021-08-26] MEDS: ATORVASTATIN 40 MG TAB PO SCH (21:14)
[2021-08-27] MEDS: HYDROMORPHONE HCL 1 MG/ML INJ IV PRN ×6 (02:58→23:17)
[2021-08-27] MEDS: PROMETHAZINE INJ 25 MG/ML AMP IV PRN ×6 (02:58→23:17)
[2021-08-27 04:42] LABS: Absolute Lymphocytes (CBC) 1.4 K/uL (0.7-4.9); Basophils % 0.2 % (0-1.3); Hematocrit 39.1 % (36.0-45.0); Lymphocytes % 15.8 % (15.3-44.8); MPV 7.5 fL (7.6-11.3); RBC Red Blood Cell Count 4.24 M/uL (3.86-4.86)
[2021-08-27 05:02] LABS: Magnesium 2.2 mg/dL (1.8-2.4)
[2021-08-27 05:20] LABS: Albumin 3.2 g/dL (3.4-5.0); Bilirubin Total 0.3 mg/dL (0.2-1.0); Magnesium 2.2 mg/dL (1.8-2.4); Phosphorus 3.8 mg/dL (2.5-4.9); Protein, Total 6.7 g/dL (6.4-8.2); Thyroid Stimulating Hormone 1.97 uIU/mL (0.360-3.740)
[2021-08-27 05:26] LABS: Potassium 2.7 mmol/L (3.5-5.1)
[2021-08-27 05:47] LABS: Urine Appearance CLEAR (Clear); Urine Bilirubin NEGATIVE (Negative); Urine Blood TRACE (Negative); Urine Color YELLOW (Yellow); Urine Glucose NEGATIVE (Negative); Urine Protein NEGATIVE (Negative); Urine Specific Gravity 1.015 (1.005-1.030); Urine Urobilinogen 0.2 mg/dL (0.2-1.0)
[2021-08-27 05:57] LABS: Urine Microscopic Reflex ORDER UMIC
[2021-08-27] MEDS: PANTOPRAZOLE 40 MG INJ IVP SCH ×2 (05:59→18:14)
[2021-08-27] MEDS: KCL 20 MEQ/100 mL IVPB 20 MEQ/100 ML BAG IV SCH ×3 (06:00→10:00)
[2021-08-27 06:09] LABS: Urine Bacteria <20 /HPF (<20); Urine RBC <5 /HPF (NONE SEEN)
[2021-08-27 06:14] LABS: Barbiturates NEGATIVE (NEGATIVE); Benzodiazepines POSITIVE (NEGATIVE); Cocaine NEGATIVE (NEGATIVE); METHAMPHETAM NEGATIVE (NEGATIVE); Methadone NEGATIVE (NEGATIVE); Opiates NEGATIVE (NEGATIVE); Phencyclidine NEGATIVE (NEGATIVE); THC Cannibis NEGATIVE (NEGATIVE)
[2021-08-27] MEDS ORDERED: NA CHLORIDE 0.9% 1,000 ML ONE (06:20)
[2021-08-27] MEDS: ASPIRIN EC 81 MG TAB PO SCH (08:15)
[2021-08-27] MEDS: ACETAMINOPHEN 500 MG TAB PO PRN (08:15)
--- NOTE | 2021-08-27 12:34 | RAD REPORT ---
EXAM DESCRIPTION: CT - Abdomen Pelvis W Contrast - 08/26/2021 1:06 pm CLINICAL HISTORY: The patient is 45 years old and is Female; abd pain TECHNIQUE: Axial computed tomography images of the abdomen and pelvis with intravenous contrast. S agittal and coronal reformatted images were created and reviewed. This CT exam was performed using one or more of the following dose reduction techniques: automated exposure control, adjustment of t he mA and/or kV according to patient size, and/or use of iterative reconstruction technique. COMPARISON: No relevant prior studies available. FINDINGS: LUNG BASES: Unremarkable. No mass. No consolidation. ABDOMEN: LIVER: Unremarkable. No mass. GALLBLADDER AND BILE DUCTS: The gallbladder is surgically absent. Dilatation of the common arcadio e duct is noted. PANCREAS: Fatty infiltration of pancreas is present. Inflammatory stranding and edema involving the head and uncinate process of the pancreas is noted. SPLEEN: Unremarkable. ADRENALS: Unremarkable. No mass. KIDNEYS AND URETERS: Bilateral renal cysts are present. The kidneys enhance symmetrically. There is no hydronephrosis or hydroureter of either kidney. No obstructing renal or ureteral calculus is s een. STOMACH AND BOWEL: Postsurgical change of the stomach is present. Small bowel is normal in calib er. Stool is present throughout colon. There is no mucosal thickening or evidence of bowel obstructio n. PELVIS: APPENDIX: The appendix is normal in caliber without surrounding inflammation. BLADDER: The bladder is significantly distended. REPRODUCTIVE: Unremarkable as visualized. ABDOMEN and PELVIS: INTRAPERITONEAL SPACE: Unremarkable. No free air. No significant fluid collection. BONES/JOINTS: Minimal degenerative change of the lower lumbar spine is present. SOFT TISSUES: The soft tissues are normal. VASCULATURE: Unremarkable. No abdominal aortic aneurysm. LYMPH NODES: Unremarkable. No enlarged lymph nodes. IMPRESSION: 1. Findings suggest acute pancreatitis involving the head and uncinate process. Correl ation with patient's laboratory values is recommended. 2. Intrahepatic and extrahepatic biliary dilatation. This may be related to postcholecystectomy sta te. However, if clinically indicated, ultrasound and/or MRCP could be performed for further evaluatio n. Electronically signed by: Jolie Gautam MD 08/26/2021 6:41 AM CDT Due to temporary technical issues with the PACS/Fluency reporting system, reports are being signed by the in house radiologist without review as a courtesy to ensure prompt reporting. The interpreting r adiologist is fully responsible for the content of the report.
--- NOTE | 2021-08-27 14:37 | P.PN ---
Subjective Date of Service: 08/27/21 Patient continues to have intractable nausea and vomiting and epigastric tenderness. Patient's pain radiates to the back. Consistent with acute pancreatitis. Patient's lipase is normal however. Will repeat CT imaging in the morning. Patient's not able to hold down anything so will keep her NPO. Review of Systems 10-point ROS is otherwise unremarkable Physical Examination - Vital Signs Temperature: 96.7 F Blood Pressure: 108/59 Pulse: 79 Respirations: 18 Pulse Ox (%): 97 - Physical Exam General: Alert, In no apparent distress HEENT: Atraumatic, PERRLA, EOMI Neck: Supple, JVD not distended Respiratory: Clear to auscultation bilaterally, Normal air movement Cardiovascular: Regular rate/rhythm, Normal S1 S2 Gastrointestinal: Normal bowel sounds, No tenderness Musculoskeletal: No tenderness Integumentary: No rashes Neurological: Normal speech, Normal tone, Normal affect Lymphatics: No axilla or inguinal lymphadenopathy - Studies Laboratory Data (last 24 hrs) 08/27/21 04:12: Magnesium 2.2, Lipase 71 L 08/27/21 04:12: Sodium 139, Potassium 2.7 L*, BUN 12, Creatinine 0.79, Glucose 157 H, Phosphorus 3.8, Magnesium 2.2, Total Bilirubin 0.3, AST 28, ALT 65, Alkaline Phosphatase 139 H, Triglycerides 323 H, Cholesterol 175, HDL Cholesterol 44, Cholesterol/HDL Ratio 3.98 08/27/21 04:12: WBC 9.10 D, Hgb 13.7, Hct 39.1, Plt Count 282 08/26/21 15:56: Troponin I < 0.02 08/26/21 11:58: Troponin I Cancelled Medications List Reviewed: Yes Assessment & Plan - Problems (Diagnosis) (1) Acute pancreatitis Current Visit: Yes Status: Acute (2) Intractable nausea and vomiting Current Visit: Yes Status: Acute (3) History of Crohn's disease Current Visit: Yes Status: Acute (4) Raynaud's disease Onset Date: 05/05/18 Current Visit: No Status: Chronic Qualifiers: Raynaud?s-associated gangrene presence: without gangrene Qualified Code(s): I73.00 - Raynaud's syndrome without gangrene (5) Scleroderma Onset Date: 05/05/18 Current Visit: No Status: Chronic - Plan 1. Continue with IV hydration 2. Continue with IV antiemetics 3. Continue with pain control 4. NPO 5. GI consultation; 6. Monitor CBC, BMP, LFTs and lipase along with electrolytes. 7. Repeat imaging in the morning 8. GI and DVT prophylaxis - Advance Directives Does patient have a Living Will: Yes Does patient have a Durable POA for Healthcare: Yes
[2021-08-27] MEDS ORDERED: KCL 20 MEQ/100 mL IVPB 20 MEQ/100 ML BAG IV SCH (15:00)
[2021-08-27] MEDS ORDERED: NA CHLORIDE 0.9% 250 ML ONE (15:48)
[2021-08-27] MEDS: NA CHLORIDE 0.9% 1,000 ML IV SCH (18:14)
[2021-08-27] MEDS: ATORVASTATIN 40 MG TAB PO SCH ×2 (19:35→19:36)
[2021-08-27] MEDS ORDERED: DIAZEPAM 5 MG TABLET PO PRN (21:12)
[2021-08-27] MEDS: DICYCLOMINE HCL 10 MG CAP PO SCH (23:18)
[2021-08-28] MEDS: PROMETHAZINE INJ 25 MG/ML AMP IV PRN ×3 (03:32→12:37)
[2021-08-28] MEDS: HYDROMORPHONE HCL 1 MG/ML INJ IV PRN ×5 (03:32→23:24)
[2021-08-28] MEDS: NA CHLORIDE 0.9% 1,000 ML IV SCH ×4 (03:33→23:23)
[2021-08-28] MEDS: PANTOPRAZOLE 40 MG INJ IVP SCH ×2 (06:40→17:01)
[2021-08-28] MEDS ORDERED: KCL 20 MEQ/100 mL IVPB 20 MEQ/100 ML BAG IV ONE (07:00)
[2021-08-28] MEDS: ASPIRIN EC 81 MG TAB PO SCH (08:21)
[2021-08-28] MEDS: DICYCLOMINE HCL 10 MG CAP PO SCH ×4 (08:21→23:28)
--- NOTE | 2021-08-28 09:01 | RAD REPORT ---
EXAM DESCRIPTION: CT - Abdomen Pelvis W Contrast - 08/28/2021 8:44 am CLINICAL HISTORY: Abdominal pain. COMPARISON: August 26, 2021 TECHNIQUE: Computed axial tomography of the abdomen and pelvis was obtained. 100 cc Isovue-300 is ad ministered intravenously. Oral contrast was given. All CT scans are performed using dose optimization technique as appropriate and may include automated exposure control or mA/KV adjustment according to patient size. FINDINGS: Postsurgical changes of a gastric bypass. Contrast in the esophagus probably indicates reflux. Cholecystectomy Mild inhomogeneity pancreatic head. Peripancreatic stranding has diminished. No pseudocyst. Liver, spleen, adrenals unremarkable. Small renal cysts. No adnexal mass. There is no evidence of diverticulitis IMPRESSION: Improvement in mild pancreatitis Prominence of the common bile duct may be physiologic or secondary to pathology such as stricture. Th is should be correlated clinically with appropriate lab values. MRCP may be helpful for further evalu ation
[2021-08-28] MEDS ORDERED: PHENOL 1.4% ORAL SPRAY 180ML MM PRN (10:16)
[2021-08-28] MEDS ORDERED: DIPHENOX/ATROP SULF 1 TAB PO ONE (12:24)
[2021-08-28] MEDS ORDERED: POTASSIUM CL SA 10 MEQ TAB PO ONE ×2 (13:00→13:10)
[2021-08-28] MEDS: LOPERAMIDE HCL 2 MG CAPSULE PO PRN ×2 (18:44→23:55)
[2021-08-28] MEDS: PROMETHAZINE 25 MG TABLET PO PRN (23:25)
[2021-08-29] MEDS: HYDROMORPHONE HCL 1 MG/ML INJ IV PRN ×5 (02:58→18:52)
[2021-08-29] MEDS: PANTOPRAZOLE 40 MG INJ IVP SCH ×2 (06:42→18:29)
[2021-08-29] MEDS: PROMETHAZINE 25 MG TABLET PO PRN (06:45)
[2021-08-29] MEDS: ASPIRIN EC 81 MG TAB PO SCH (08:23)
[2021-08-29] MEDS: DICYCLOMINE HCL 10 MG CAP PO SCH ×4 (08:24→20:46)
[2021-08-29] MEDS: ACETAMINOPHEN 500 MG TAB PO PRN (08:29)
[2021-08-29] MEDS: NA CHLORIDE 0.9% 1,000 ML IV SCH ×3 (09:00→20:48)
[2021-08-29] MEDS ORDERED: POTASSIUM CL SA 10 MEQ TAB PO ONE (09:00)
[2021-08-29 13:48] LABS: Absolute Lymphocytes (CBC) 1.5 K/uL (0.7-4.9); Basophils % 0.3 % (0-1.3); Hematocrit 36.6 % (36.0-45.0); Lymphocytes % 26.5 % (15.3-44.8); MPV 7.5 fL (7.6-11.3); RBC Red Blood Cell Count 3.86 M/uL (3.86-4.86)
[2021-08-29 13:56] LABS: ALT/SGPT 72 U/L (12-78); AST/SGOT 32 U/L (15-37); Alkaline Phosphatase 161 U/L (45-117); BUN Blood Urea Nitrogen 5 mg/dL (7-18); Bicarbonate 23 mmol/L (21-32); Bilirubin Total 0.2 mg/dL (0.2-1.0); Glucose Level 152 mg/dL (74-106); Potassium 3.7 mmol/L (3.5-5.1); Sodium Level 142 mmol/L (136-145)
[2021-08-29 13:57] LABS: Albumin 2.8 g/dL (3.4-5.0); Lipase 45 U/L (73-393); Protein, Total 6.3 g/dL (6.4-8.2)
[2021-08-29] MEDS ORDERED: POTASSIUM CL 40 MEQ in NA CHLORIDE 0.9% 500 ML IV SCH (19:00)
[2021-08-29] MEDS ORDERED: KCL 20 MEQ/100 mL IVPB 20 MEQ/100 ML BAG IV SCH (20:00)
[2021-08-29] MEDS: ATORVASTATIN 40 MG TAB PO SCH (20:47)
[2021-08-30] MEDS: dexAMETHasone 4 MG/ML VIAL IV SCH ×2 (00:12→06:00)
[2021-08-30] MEDS: HYDROMORPHONE HCL 1 MG/ML INJ IV PRN ×3 (00:12→09:53)
[2021-08-30] MEDS: PANTOPRAZOLE 40 MG INJ IVP SCH (05:15)
[2021-08-30] MEDS: NA CHLORIDE 0.9% 1,000 ML IV SCH (05:18)
[2021-08-30 05:55] LABS: BUN Blood Urea Nitrogen 8 mg/dL (7-18); Bicarbonate 24 mmol/L (21-32); Glucose Level 132 mg/dL (74-106); Potassium 4.6 mmol/L (3.5-5.1); Sodium Level 141 mmol/L (136-145)
[2021-08-30 09:30] VITALS: O2SAT 94
[2021-08-30] MEDS: DICYCLOMINE HCL 10 MG CAP PO SCH (09:53)
[2021-08-30] MEDS: ASPIRIN EC 81 MG TAB PO SCH (09:53)
[2021-08-30 09:56] VITALS: BP 105/57; TEMP 97
[2021-08-31 10:36] LABS: C.diff Antigen/Toxin Ag neg : Tox neg (NEG : NEG)
--- NOTE | 2021-09-01 02:38 | P.PN ---
Date of Service: 08/28/21 Subjective Patient is started on a diet and is tolerating it. Repeat CT scan with no abnormality. May need further workup with endoscopic procedure by Gastroenterology as an outpatient. Review of Systems 10-point ROS is otherwise unremarkable Physical Examination - Vital Signs Reviewed - Physical Exam General: Alert, In no apparent distress Respiratory: Clear to auscultation bilaterally, Normal air movement Cardiovascular: Regular rate/rhythm, Normal S1 S2 Gastrointestinal: Normal bowel sounds, No tenderness Neurological: Normal speech, Normal tone, Normal affect Assessment & Plan - Problems (Diagnosis) (1) Acute pancreatitis Current Visit: Yes Status: Acute (2) Intractable nausea and vomiting Current Visit: Yes Status: Acute (3) History of Crohn's disease Current Visit: Yes Status: Acute (4) Raynaud's disease Onset Date: 05/05/18 Current Visit: No Status: Chronic Qualifiers: Raynaud?s-associated gangrene presence: without gangrene Qualified Code(s): I73.00 - Raynaud's syndrome without gangrene (5) Scleroderma Onset Date: 05/05/18 Current Visit: No Status: Chronic - Plan Continue with plan of care as mentioned below: 1. Continue with IV hydration 2. Continue with IV antiemetics 3. Continue with pain control 4. Clear liquid diet and advance as tolerated 5. GI consultation and rheumatologic follow-up as an outpatient 6. Monitor labs closely 7. Repeat imaging in the morning 8. GI and DVT prophylaxis - Advance Directives Does patient have a Living Will: Yes Does patient have a Durable POA for Healthcare: Yes
--- NOTE | 2021-09-01 02:39 | P.PN ---
Date of Service: 08/29/21 Subjective Patient continues to show some improvement. Stool studies are pending. She was upset about going home so will monitor her Overnite and make sure her clinical symptoms are stable. Review of Systems 10-point ROS is otherwise unremarkable Physical Examination - Vital Signs Reviewed - Physical Exam General: Alert, In no apparent distress Respiratory: Clear to auscultation bilaterally, Normal air movement Cardiovascular: Regular rate/rhythm, Normal S1 S2 Gastrointestinal: Normal bowel sounds, No tenderness Neurological: Normal speech, Normal tone, Normal affect Assessment & Plan - Problems (Diagnosis) (1) Acute pancreatitis Current Visit: Yes Status: Acute (2) Intractable nausea and vomiting Current Visit: Yes Status: Acute (3) History of Crohn's disease Current Visit: Yes Status: Acute (4) Raynaud's disease Onset Date: 05/05/18 Current Visit: No Status: Chronic Qualifiers: Raynaud?s-associated gangrene presence: without gangrene Qualified Code(s): I73.00 - Raynaud's syndrome without gangrene (5) Scleroderma Onset Date: 05/05/18 Current Visit: No Status: Chronic - Plan Continue with plan of care as mentioned below: 1. Hep-Lock IV 2. Continue with IV antiemetics 3. Continue with pain control 4. Advanced diet as tolerated 5. GI consultation and rheumatologic outpatient follow-up 6. Monitor CBC, BMP, LFTs and lipase along with electrolytes. 7. Repeat imaging in the morning 8. GI and DVT prophylaxis - Advance Directives Does patient have a Living Will: Yes Does patient have a Durable POA for Healthcare: Yes
--- NOTE | 2021-09-01 02:39 | P.DS ---
Discharge Date: 08/30/21 Disposition: ROUTINE DISCHARGE Discharge Condition: GOOD Reason for Admission: chest pain - Problems (1) Acute pancreatitis Status: Acute (2) Intractable nausea and vomiting Status: Acute (3) History of Crohn's disease Status: Acute (4) Raynaud's disease Onset Date: 05/05/18 Status: Chronic Qualifiers: Raynaud?s-associated gangrene presence: without gangrene Qualified Code(s): I73.00 - Raynaud's syndrome without gangrene (5) Scleroderma Onset Date: 05/05/18 Status: Chronic Brief History of Present Illness: Ms. Dexter is a 45 yo F with hisotry of anemia, Chron's disease, SLE, raynaud's, and scleroderma who presents with 9/10 stabbing sternal chest pain radiating to her right jaw beginning yesterday while she was walking lasting for 30 seconds. The pain was so severe she fell to her knees. She also reports vomiting, SOB, sweats and lightheadedness. Denies vasospasms. She has had no relief of symptoms with her home steroids or methotrexate. She says her insurance no longer covers her home medications so she has been feeling worse over the past few weeks. She last had an episode like this in January/February and symptoms improved with protonix and dicyclomine. Last saw a ballet teacher a few years ago. WBC 15.5, K 3.3. Hospital Course: Patient did get better with her nausea and vomiting. She was able to start tolerating her diet. Repeat CT scan showed improvement of pancreatitis. Patient is having diarrhea. However, she stated this was a chronic issue. We did check stools and her fecal leukocytes were negative. C difficile and the cultures were negative as well. At this time, patient is stable for discharge. She was upset that we did really figure out was causing her chronic conditions. She will need to follow with a vending manager and her incident response analyst for further workup at this time. Vital Signs/Physical Exam: Temp Pulse Resp BP Pulse Ox 97.0 F 73 16 105/57 L 93 08/30/21 08:00 08/30/21 08:00 08/30/21 09:53 08/30/21 08:00 08/30/21 09:53 General: Alert, In no apparent distress, Oriented x3 Laboratory Data at Discharge: WBC 5.80 K/uL (4.3-10.9) D 08/29/21 13:10 Hgb 12.4 g/dL (12.0-15.0) 08/29/21 13:10 Hct 36.6 % (36.0-45.0) 08/29/21 13:10 Plt Count 227 K/uL (152-406) 08/29/21 13:10 PT 11.8 SECONDS (9.5-12.5) 08/26/21 04:00 INR 1.03 08/26/21 04:00 Sodium 141 mmol/L (136-145) 08/30/21 05:00 Potassium 4.6 mmol/L (3.5-5.1) 08/30/21 05:00 BUN 8 mg/dL (7-18) 08/30/21 05:00 Creatinine 0.60 mg/dL (0.55-1.3) 08/30/21 05:00 Glucose 132 mg/dL (74-106) H 08/30/21 05:00 Phosphorus 3.8 mg/dL (2.5-4.9) 08/27/21 04:12 Magnesium 2.0 mg/dL (1.8-2.4) 08/29/21 13:10 Total Bilirubin 0.2 mg/dL (0.2-1.0) 08/29/21 13:10 AST 32 U/L (15-37) 08/29/21 13:10 ALT 72 U/L (12-78) 08/29/21 13:10 Alkaline Phosphatase 161 U/L (45-117) H 08/29/21 13:10 Troponin I < 0.02 ng/mL (0.0-0.045) 08/26/21 15:56 Triglycerides 323 mg/dL (<150) H 08/27/21 04:12 Cholesterol 175 mg/dL (<200) 08/27/21 04:12 HDL Cholesterol 44 mg/dL (40-60) 08/27/21 04:12 Cholesterol/HDL Ratio 3.98 08/27/21 04:12 Lipase 45 U/L (73-393) L 08/29/21 13:10 Home Medications: Hydrocodone 10/APAP 325 [[place] 325*] 1 tab PO Q6H PRN 05/04/18 diazePAM [Diazepam] 10 mg PO BEDTIME PRN 05/04/18 Amlodipine [Norvasc*] 1 tab PO DAILY 08/26/21 Cholecalciferol (Vitamin D3) [Vitamin D3] 1 tab PO SEECOM 08/26/21 Dextroamphetamine/Amphetamine [Adderall Xr 20 mg Capsule] 1 tab PO DAILY 08/26/21 Dicyclomine HCl 1 tab PO QID 08/26/21 Ketoconazole/Hydrocortisone [Pheyo 2.5%-2% Cream] 1 appl TOP DAILY 08/26/21 Medroxyprogester [Depo Provera*] 150 mg IJ SEECOM 08/26/21 Methotrexate Sodium/Pf [Methotrexate 50 mg/2 ml Vial] 50 mg IJ SEECOM 08/26/21 Pantoprazole [Protonix Tab*] 1 tab PO BID 08/26/21 Promethazine Tab [Phenergan*] 1 tab PO Q6H PRN 08/26/21 Hydrocodone 7.5/APAP 325 [[place] 7.5/325 mg] 1 tab PO Q6H PRN #28 tab 08/30/21 New Medications: Hydrocodone 7.5/APAP 325 [[place] 7.5/325 mg] 1 tab PO Q6H PRN #28 tab PRN Reason: Pain Physician Discharge Instructions: OK TO DC IV AND DC HOME FOLLOW-UP WITH PRIMARY CARE PROVIDER IN 1-2 WEEKS FOLLOW-UP WITH vending manager and incident response analyst IN 1-2 WEEKS RETURN TO THE ER IF symptoms worsen CALL or TEXT DR. GAYTAN AT [phone] IF ANY QUESTIONS REGARDING HOSPITAL STAY. PLEASE CALL THE FLOOR AT [phone] IF ANY MEDICATION OR NURSING QUESTIONS. Diet: AHA Activity: Fall precautions Followup: NONE,NONE [Primary Care Provider] - Time spent managing pt's care (in minutes): 35
== END 2021-08-30 10:54 | disposition home or self-care (01) | DRG 439 ==
LOC: ER 03:39 → ERHOLD 05:38 → 2ND 13:06 → OBSVTOIN 08-27 13:02
PROVIDERS: ADMIT Hospitalist; ATTEND Hospitalist
DX: K85.90 Acute pancreatitis without necrosis or infection, unspecified (principal); K50.90 Crohn's disease, unspecified, without complications; R11.2 Nausea with vomiting, unspecified; I73.00 Raynaud's syndrome without gangrene; M34.9 Systemic sclerosis, unspecified; M32.9 Systemic lupus erythematosus, unspecified; Z88.2 Allergy status to sulfonamides; Z20.822 Contact with and (suspected) exposure to COVID-19
CPT/HCPCS: 36415; 71045; 74177; 80048; 80053; 80061; 80076; 80307; 81003; 81015; 82947; 83690; 83735; 83880; 84100; 84132; 84145; 84439; 84443; 84484; 85025; 85610; 87045; 87046; 87324; 87449; 89055; 93005; 94760; 99285; C9113; G0378; J1100; J1170; J2550; J3480; J7030; J7040; J7050; Q0169; Q9967; U0003

== ENCOUNTER 2022-11-26 20:35 | Inpatient (IN) | payer OTHER ==
--- OUTSIDE RECORDS SUMMARY | 2022-11-26 20:50 | XMS REPORT | Continuity of Care Document ---
:1975 Author Organization [facility] t Address [address] [place] [address] Care Team Providers Name Role Phone Mike Payan Primary Care Physician ORIN RINCON Attending Clinician Unavailable Mike Payan MD Attending Clinician Deandre GAS WELDER APPRENTICE, Zelda Attending Clinician Allen HILL, Jennifer Luu Attending Clinician [phone] KYLEIGH PEPPER Attending Clinician Unavailable HOLGER ALMONTE Attending Clinician Unavailable ROHAN VANN Attending Clinician Unavailable KI WILLIS Attending Clinician Unavailable JONY BEACH Attending Clinician Unavailable Jony Cantu Attending Clinician Dylan Alicia MD Attending Clinician Pob, [facility] Main Attending Clinician Unavailable Nadir Mccarthy MD Attending Clinician NADIR MCCARTHY Attending Clinician Unavailable Corey Morales DO Attending Clinician COREY MORALES Attending Clinician Unavailable Makeda Johnson MA Attending Clinician Unavailable YENI HAMMOND Attending Clinician Unavailable Doctor Unassigned, [place] Attending Clinician Unavailable Mike Payan Attending Clinician Pob[facility], [facility] Attending Clinician Unavailable Izzy Bailey Attending Clinician FUAD COBOS Attending Clinician Unavailable ORIN RINCON Admitting Clinician Unavailable YENI HAMMOND Admitting Clinician Unavailable ELVA GAYTAN Admitting Clinician Unavailable Payers Payer Name Policy Type Policy Number Effective Date Expiration Date S ourbert [employer] CHOICE POS [id number] 2019 2019 II 00:00:00 00:00:00 [employer] MEDICARE [id number] 2019 ADV 00:00:00 MEDICARE PART A [id number] 2013 \\T\\ B 00:00:00 [employer] MEDICARE [id number] 2022 PPO 00:00:00 Problems Condition Condition Condition Status Onset Resolution Last Treating Co mments Source Name Details Category Date Date Treatment Clinician Date 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 08-04 st osis osis 00:00: Hospita without without 00 l renal renal involvemen involvemen t t Crohn's Crohn's Disease Active [place] disease disease 9-15 Health 00:00: 00 On On Disease Active Methodi Depo-Prove Depo-Prove 07-08 st ra for ra for 00:00: Hospita contracept contracept 00 l ion ion Environmen Environmen Disease Active 2018-0 M ethodi hanh hanh 5-30 st allergies allergies 00:00: Hosp amadou 00 l [facility] Disease Active Met hodi use of use of 12-10 drug drug 00:00: Hospita 00 l Costochond Costochond Disease Active 2018- M ethodi ritis ritis 11-26 00:00: Hospita 00 l Intractabl Intractabl Disease Active 2017-11 M ethodi e vomiting e vomiting 11-26 with with 00:00: Hospita nausea nausea 00 l Insulin Insulin Disease Active 2017-11 Methodi resistance resistance 0 00:00: Hospita 00 l Chest Chest Disease Active Methodi pain, pain, 06-16 atypical atypical 00:00: Hospit a 00 l Nausea Nausea Disease Active Methodi 06-16 00:00: Hospita 00 l Chronic Chronic Disease Active Methodi diarrhea diarrhea 06-16 00:00: Hospita 00 l Raynaud's Raynaud's Disease Active Met hodi disease disease 04-09 00:00: Hospita 00 l Urticaria Urticaria Disease Active Met hodi 11-24 00:00: Hospita 00 l Fluid Fluid Disease Active Methodi retention retention 05-15 00:00: Hospita 00 l 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-16 gastrectom gastrectom 00:00: Ho spita y and y and 00 l Maggi-en-Y Maggi-en-Y esophagoje esophagoje junal junal anastomosi anastomosi s s History of History of Disease Active M ethodi urinary urinary 04-15 retention retention 00:00: Hosp amadou 00 l Dizziness Dizziness Disease Active Met hodi 04-15 00:00: Hospita 00 l Generalize Generalize Disease Active M ethodi d d 01-19 abdominal abdominal 00:00: Hosp amadou pain pain 00 l Epistaxis Epistaxis Disease Active Met hodi 01-19 st 00:00: Hospita 00 l Vitamin D Vitamin D Disease Active Met [facility]odi deficiency deficiency 11-13 00:00: Hospita 00 l Cobalamin Cobalamin Disease Active 2015-11 Met hodi deficiency deficiency 11-15 00:00: Hospita 00 l Nutritiona Nutritiona Disease Active 2015-11 Overview : Methodi l disorder l disorder 11-[address] 00:00: g of this Hospita 00 note l might be different from the original. Overview: Overview: on TPN via PICC line initiated September 2016 History of History of Disease Active 2015-11 M ethodi biliary biliary 11-15 T-tube T-tube 00:00: Hospita placement placement 00 l Insomnia Insomnia Disease Active 2015-11 Metho di 11-15 00:00: Hospita 00 l Iron Iron Disease Active 2015-11 Methodi deficiency deficiency 11-15 anemia anemia 00:00: Hospita 00 l Malnutriti Malnutriti Disease Active 2015-11 Overview : Methodi on on 11-[address] 00:00: g of this Hospita 00 note l might be different from the original. on TPN via PICC line initiated September 2016 Attention Attention Disease Active 2015-[address] deficit [address] disorder disorder 00:00: Hospit a 00 l Adjustment Adjustment Disease Active 2015-[address] M ethodi disorder disorder st with mixed with mixed 00:00: Ho spita anxiety anxiety 00 l and and depressed depressed mood mood Bradycardi Bradycardi Disease Active 2015-11 M ethodi a a 00:00: Hospita 00 l Acute Acute Disease Active Methodi bronchitis bronchitis 05-25 00:00: Hospita 00 l Scleroderm Scleroderm Disease Active M ethodi a a 05-25 st 00:00: Hospita 00 l Sinusitis Sinusitis Disease Active Met hodi 05-25 00:00: Hospita 00 l Chronic Chronic Disease Active Methodi pain pain 05-25 00:00: Hospita 00 l Contact Contact Disease Active Methodi dermatitis dermatitis 05-25 00:00: Hospita 00 l EASY EASY Condition Active 2015-05-09 Mem oria BRUISABILI BRUISABILI 05-09 11:37:00 l TY TY Active 00:00: Ezra 05/09/2015 00 Condition 05/09/2015 [facility] Group PHARYNGITI PHARYNGIT Condition Active 2015-05-09 Memoria S, ACUTE IS, ACUTE 05-09 11:37:00 l Active 00:00: [place] 05/09/2015 00 Condition 05/09/2015 Medical Group CHRONIC CHRONIC Condition Active 2015-05-09 Memoria PAIN PAIN 04-12 11:37:00 l SYNDROME SYNDROME 00:00: Bernardo n Active 00 04/12/2015 Condition 05/09/2015 Medical Group MIGRAINE MIGRAINE Condition Active 2015-05-09 Memoria HEADACHE HEADACHE 6-05 11:37:00 l Active 00:00: Ezra 04/12/2015 00 Condition 05/09/2015 Medical Group ADJUSTMENT ADJUSTMEN Condition Active 2015-05-09 Memoria DISORDER T DISORDER 5-15 11:37:00 l WITH WITH 00:00: [place] DEPRESSED DEPRESSED 00 MOOD MOOD Active 03/22/2015 Condition 05/09/2015 Medical Group MYALGIA MYALGIA Condition Active 2015-05-09 Memoria Active 4 11:37:00 l 02/15/2015 00:00: Bernardo n Condition 00 05/09/2015 Medical Group ASCITES ASCITES Condition Active 2015-05-09 Memoria Active 3 11:37:00 l 01/10/2015 00:00: Bernardo n Condition 00 05/09/2015 Medical Group INSOMNIA INSOMNIA Condition Active 2015-05-09 Memoria Active 01-10 11:37:00 l 01/10/2015 00:00: Bernardo n Condition 00 05/09/2015 Medical Group DYSFUNCTIO DYSFUNCTI Condition Active 2015-05-09 Memoria NAL ONAL 2- 11:37:00 l UTERINE UTERINE 00:00: [place] BLEEDING BLEEDING 00 Active 12/10/2014 Condition 05/09/2015 Medical Group SHORTNESS SHORTNESS Condition Active 2015-05-09 Memoria OF BREATH OF BREATH 2- 11:37:00 l Active 00:00: [place] 12/10/2014 00 Condition 05/09/2015 Medical Group VENTRAL VENTRAL Condition Active 2013-112015-05-09 Memoria HERNIA, HERNIA, 12-03 11:37:00 l INCISIONAL INCISIONAL 00:00: He rmann Active 00 10/03/2014 Condition 05/09/2015 Medical Group TRANSAMINA TRANSAMIN Condition Active 2015-05-09 Memoria SES, ASES, 07-17 11:37:00 l SERUM, SERUM, 00:00: Ezra ELEVATED ELEVATED 00 Active 07/17/2014 Condition 05/09/2015 Medical Group CHEST CHEST Condition Active 2015-05-09 Mem oria PAIN, PAIN, 07-17 11:37:00 l ATYPICAL ATYPICAL 00:00: Bernardo n Active 00 07/17/2014 Condition 05/09/2015 Medical Group SHOULDER SHOULDER Condition Active 2015-05-09 Memoria PAIN, PAIN, 07-17 11:37:00 l RIGHT RIGHT 00:00: Ezra Active 00 07/17/2014 Condition 05/09/2015 Medical Group HYPERTENSI HYPERTENS Condition Active 2015-05-09 Memoria ON, BENIGN ION, 07-17 11:37:00 l BENIGN 00:00: [place] Active 00 07/17/2014 Condition 05/09/2015 Medical Group SCLERODERM SCLERODER Condition Active 2015-05-09 Memoria A MA Active 03-24 11:37:00 l 03/24/2014 00:00: Bernardo n Condition 00 05/09/2015 Medical Group ESOPHAGEAL ESOPHAGEA Condition Active 2015-05-09 Memoria MOTILITY L MOTILITY 03-24 11:37:00 l DISORDER DISORDER 00:00: Bernardo perez Active 00 03/24/2014 Condition 05/09/2015 Medical Group ANEMIA, ANEMIA, Condition Active 2015-05-09 Memoria IRON IRON 03-24 11:37:00 l DEFICIENCY DEFICIENCY 00:00: He rmann Active 03/24/2014 Condition 05/09/2015 Medical Group INCOMPLETE INCOMPLET Condition Active 2015-05-09 Memoria BLADDER E BLADDER 03-24 11:37:00 l EMPTYING EMPTYING 00:00: Bernardo perez Active 00 03/24/2014 Condition 05/09/2015 Medical Group NEPHROLITH NEPHROLIT Condition Active 2015-05-09 Memoria IASIS HIASIS 03-24 11:37:00 l Active 00:00: [place] 03/24/2014 00 Condition 05/09/2015 Medical Group COUGH COUGH Condition Active 2015-05-09 Mem oria Active 03-24 11:37:00 l 03/24/2014 00:00: Bernardo perez Condition 00 05/09/2015 Medical Group SEIZURE SEIZURE Condition Active 2015-05-09 Memoria DISORDER DISORDER 03-24 11:37:00 l Active 00:00: Ezra 03/24/2014 00 Condition 05/09/2015 Medical Group Scleredema Scleredema Disease Active Overview : [place] 03-24 [facility] 00:00: g of this 00 note might be different from the original. Data migrated from Peggy maza on 04/09/15. Other long Other Problem Active 2022-03-18 M [facility] 02:45:30 l (current) (current) Herm sherice drug drug therapy therapy Active Problem 03/18/2022 [facility] Colitis Colitis Problem Active 2022-03-18 Me moria Active 02:45:30 l Problem Ezra 03/18/2022 [facility] Systemic Systemic Problem Active 2022-03-18 Memoria involvemen involvemen 02:45:30 l t of t of [place] connective connective tissue, tissue, unspecifie unspecifie d d Active Problem 03/18/2022 [facility] Raynaud's Raynaud's Problem Active 2022-03-18 Memoria disease disease 02:45:30 l without without Ezra gangrene gangrene Active Problem 03/18/2022 [facility] Vitamin D Vitamin D Problem Active 2022-03-18 Memoria deficiency deficiency 02:45:30 l Active Ezra Problem 03/18/2022 [facility] Chronic Chronic Problem Active 2022-03-18 Nm moria fatigue fatigue 02:45:30 l Active Ezra Problem 03/18/2022 [facility] Crohn's Crohn's Diagnosis Active 2022-03-13 Memoria disease disease 02:45:18 l with with Ezra complicati complicati on, on, unspecifie unspecifie d d gastrointe gastrointe stinal stinal tract tract location location Active Diagnosis 03/13/2022 [facility] Progressiv Progressi Problem Active 2022-03-18 Memoria e systemic ve 02:45:30 l sclerosis systemic Whit nn sclerosis Active Problem 03/18/2022 [facility] 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 Rheumatoid Rheumatoi Diagnosis Active 2022-03-18 Memoria arthritis d 02:45:30 l without arthritis Bernardo n rheumatoid without factor, rheumatoid multiple factor, sites multiple sites Active Diagnosis 03/18/2022 [facility] Hypokalemi Hypokalem Diagnosis Active 2020-08-04 Memoria a ia Active 02:45:32 l Diagnosis [place] 08/04/2020 [facility] Adverse Adverse Diagnosis Active 2020-08-04 Memoria effect of effect of 02:45:32 l unspecifie unspecifie He rmann d drugs, d drugs, medicament medicament s and s and biological biological substances substances , initial , initial encounter encounter Active Diagnosis 08/04/2020 [facility] Myalgia Myalgia Diagnosis Active 2022-03-13 Memoria Active 02:45:18 l Diagnosis [place] 03/13/2022 [facility] Nausea Nausea Diagnosis Active 2020-07-24 M emoria Active 02:45:33 l Diagnosis [place] 07/24/2020 [facility] Xerostomia Xerostomi Diagnosis Active 2020-07-24 Memoria a Active 02:45:33 l Diagnosis [place] 07/24/2020 [facility] Myalgia Myalgia Diagnosis Active 2019-09-20 Memoria Active 03:46:06 l Diagnosis [place] 09/20/2019 [facility] Anemia Anemia Diagnosis Active 2022-03-13 Me moria Active 02:45:18 l Diagnosis [place] 03/13/2022 [facility] Transamini Transamin Diagnosis Active 2022-03-13 Memoria tis itis 02:45:18 l Active [place] Diagnosis 03/13/2022 [facility] History of Past Illness Condition Condition Condition Status Onset Resolution Last Treating Co mments Source Name Details Category Date Date Treatment Clinician Date SCREENING, SCREENING Condition Inactiv 2015-05-09 2015-05-09 Memoria DIABETES , DIABETES e 03-24 11:37:00 11:37:00 l MELLITUS MELLITUS 00:00: Bernardo n Inactive 00 03/24/2014 Condition 05/09/2015 Medical Group SCREENING SCREENING Condition Inactiv 2015-05-09 2015-05-09 Memoria FOR LIPOID FOR LIPOID e 03-24 11:37:00 11:37:00 l DISORDERS DISORDERS 00:00: Herm sherice Inactive 00 03/24/2014 Condition 05/09/2015 Medical Group FATIGUE FATIGUE Condition Inactiv 2015-05-09 2015-05-09 Memoria Inactive e 03-24 11:37:00 11:37:00 l 03/24/2014 00:00: Bernardo n Condition 00 05/09/2015 [facility] Group Allergies, Adverse Reactions, Alerts Allergy Allergy Status Severity Reaction(s) Onset Inactive Treating Comm ents Source Name Type Date Date Clinician Codeine Allergy Active [place] [facility] 00:00: e 00 Meperidi Drug Active [place] ne Hcl Allergy [facility] 00:00: 00 Morphine Allergy Active [place] to 15 [facility] 00:00: e 00 Azathiop Azathiop Active headache, Mem oria rine rine diarrhea 4-26 l 00:00: Ambien Ambien Active Info Not Memoria Available 4-26 l 00:00: Zofran Zofran Active Info Not Memoria Available 4-26 l 00:00: Nexium Nexium Active Info Not Memoria Available 4-26 l 00:00: Morphine Morphine Active Info Not Pedro cl Sulfate Sulfate Available 4-26 l 00:00: Levaquin Levaquin Active Info Not Pedro cl Available 4-26 l 00:00: Demerol Demerol Active Info Not Memori a Available 4-26 l 00:00: Codeine Codeine Active Info Not Memori a Sulfate Sulfate Available 4-26 l 00:00: Clindamy Clindamy Active Info Not Pedro cl gaurav HCl gaurav HCl Available 4-26 l 00:00: zolpidem DA Active U 2020-0 [facility] 2[facility]01 Clear 00:00: Morales 00 [facility] Cephalos DA Active U 2020-0 [facility] porins 2-01 Clear 00:00: Morales 00 [facility] morphine DA Active U 2019-0 [facility] 2-01 Clear 00:00: Morales 00 [facility] codeine DA Active U 2020-0 [facility] 2-01 Clear 00:00: Morales 00 [facility] fentanyl DA Active U 2019-0 [facility] 2- Clear 00:00: Morales 00 [facility] meperidi DA Active U 2020-0 [facility] ne 2-01 Clear 00:00: Morales 00 [facility] ondanset DA Active U 2020-0 [facility] fabiola 2-01 Clear 00:00: Morales 00 [facility] esomepra DA Active U 2020-0 [facility] zole 2-01 Clear 00:00: Morales 00 [facility] clindamy DA Active U 2020-0 [facility] gaurav 2-01 Clear 00:00: Morales 00 [facility] clindamy DA Active U UNKNOWN 2020-0 [facility] gaurav 2-01 Clear 00:00: Morales 00 [facility] zolpidem DA Active U UNKNOWN 2020-0 [facility] 2-01 Clear 00:00: Morales 00 [facility] Cephalos DA Active U UNKNOWN 2020-0 [facility] porins 2-01 Clear 00:00: Morales 00 [facility] morphine DA Active U UNKNOWN 2020-0 [facility] 2-01 Clear 00:00: Morales 00 [facility] codeine DA Active U UNKNOWN 2020-0 [facility] 2-01 Clear 00:00: Morales 00 [facility] fentanyl DA Active U UNKNOWN 2020-0 [facility] 2-01 Clear 00:00: Morales 00 [facility] meperidi DA Active U UNKNOWN 2020-0 [facility] ne 2-01 Clear 00:00: Morales 00 [facility] ondanset DA Active U UNKNOWN 2020-0 [facility] fabiola 2-01 Clear 00:00: Morales 00 [facility] esomepra DA Active U UNKNOWN 2020-0 [facility] zole 2-01 Clear 00:00: Morales 00 [facility] Baclofen Propensi Active Other (See 20190 seizures Methodi ty to Comments) 4-16 st adverse 00:00: Hospita reaction 00 l s to drug BACLOFEN DRUG Active Other-Cmnt 0 Univ ers INGREDI 4-16 ity of 00:00: [place] [facility] FENTANYL DRUG Active Other-Cmnt 2019-0 Univ ers INGREDI 4-16 ity of 00:00: [place] 00 [facility] Baclofen Propensi Active Other - See 2019-0 seizures Univers ty to comments 4-16 ity of adverse 00:00: [place] reaction 00 [facility] s [facility] Fentanyl Propensi Active Other - See 2019-0 Cardiac Univers ty to comments 4-16 arrest ity of adverse 00:00: [place] reaction 00 [facility] s [facility] Ondanset Propensi Active Other (See 20190 bradycard Methodi fabiola Hcl ty to Comments) - ia st (Pf) adverse 00:00: Hospita reaction 00 l s to drug Ondanset Propensi Active Other - See 2019 bradycar d Univers fabiola Hcl ty to comments 11-29 ia ity of (Pf) adverse 00:00: [place] reaction 00 [facility] s [facility] CLINDAMY DRUG Active Anaphylaxis 2019-0 Uni vers GAURAV INGREDI 11-29 ity of 00:00: [place] 00 [facility] ONDANSET DRUG Active Other-Cmnt 2019-0 Univ ers FABIOLA HCL 11-29 ity of (PF) 00:00: [place] 00 [facility] Clindamy Propensi Active Anaphylaxis 2019-0 U nivers gaurav ty to 11-29 ity of adverse 00:00: [place] reaction 00 [facility] s Branch Clindamy Allergy Active Unknown 2017-11 Rash, [place] gaurav to 0-05 vomiting, Health substanc 00:00: throat e 00 swellingR shell, vomiting, throat swelling Clindamy Propensi Active Anaphylaxis 2017-11 Rash, M ethodi gaurav ty to 0-05 vomiting, st adverse 00:00: throat Hospita reaction 00 swelling l s to drug Ondanset Allergy Active Unknown 2016-11 bradycard [place] fabiola to 0-05 iabradyca Health substanc 00:00: rdiaBrady e 00 cardia and low heart ratebrady cardiaBra dycardia and low heart rate Ondanset Propensi Active Other (See 2016-11 Bradycard Methodi fabiola ty to Comments) 0-[address] adverse 00:00: low heart Hospit a reaction 00 rate l s to drug Cephalos Propensi Active 2017- Method i porins ty to 5-09 st adverse 00:00: Hospita reaction 00 l s to drug Esomepra Propensi Active Anaphylaxis 2015- U nivers zole ty to 2- ity of Magnesiu adverse 00:00: [place] m reaction 00 [facility] s [facility] Esomepra Propensi Active Nausea And 2015-11 CARDIAC M ethodi zole ty to Vomiting 2- ARREST st Magnesiu adverse 00:00: Hospita m reaction 00 l s to drug ESOMEPRA DRUG Active High Anaphylaxis 2015-11 Uni vers ZOLE INGREDI 2- ity of MAGNESIU 00:00: [place] M 00 [facility] Zolpidem Propensi Active Other (See INSOMNIA, Methodi ty to Comments) 7-[address] adverse 00:00: Hospita reaction 00 l s to drug Codeine Propensi Active Other (See CARDIAC Me thodi ty to Comments) 7-[address] adverse 00:00: Hospita reaction 00 l s to drug Meperidi Propensi Active Other (See CARDIAC M ethodi ne ty to Comments) 7-[address] adverse 00:00: Hospita reaction 00 l s to drug Morphine Propensi Active Other (See CARDIAC M ethodi ty to Comments) 7-[address] adverse 00:00: EFFECT Hospita reaction 00 l s to drug Esomepra Propensi Active Other (See CARDIAC M ethodi zole ty to Comments) 7-[address] Magnesiu adverse 00:00: Hospita m reaction 00 l s to drug ZOLPIDEM DRUG Active Other-Cmnt Univ ers TARTRATE INGREDI 2 ity of 00:00: [place] 00 [facility] Zolpidem Propensi Active Other - See Violent Univers Tartrate ty to comments ity of adverse 00:00: [place] reaction 00 Medical s [facility] AMBIEN AMBIEN Active Memoria 2-02 l 00:00: [place] 00 CODEINE CODEINE Active Memoria 5-17 l 00:00: [place] 00 MORPHINE MORPHINE Active Memori a 5-17 l 00:00: [place] 00 NEXIUM NEXIUM Active Memoria 5-17 l 00:00: [place] DEMEROL DEMEROL Active 0 Memoria 5-17 l 00:00: [place] CEPHALOS CEPHALOS Active Memori a PORINS PORINS 5-17 l 00:00: [place] Morphine Propensi Active Unknown - Uni vers ty to See comments 03-09 ity of adverse 00:00: [place] reaction Medical s [facility] Esomepra Propensi Active Unknown - Uni vers zole ty to See comments 03-09 ity of Magnesiu adverse 00:00: [place] m reaction 00 Medical s Branch CEPHALOS Drug Active Unknown-Cmnt Un guille PORINS Class 03-09 ity of 00:00: [place] 00 [facility] CODEINE DRUG Active Unknown-Cmnt Uni vers INGREDI 03-09 ity of 00:00: [place] 00 [facility] MEPERIDI DRUG Active Unknown-Cmnt Un guille NE HCL INGREDI 03-09 ity of 00:00: [place] 00 [facility] MORPHINE DRUG Active Unknown-Cmnt Un guille INGREDI 03-09 ity of 00:00: [place] 00 [facility] ESOMEPRA DRUG Active Unknown-Cmnt Un guille ZOLE 03-09 ity of MAGNESIU 00:00: [place] M 00 [facility] Cephalos Propensi Active Unknown - Uni vers porins ty to See comments 03-09 ity of adverse 00:00: [place] reaction 00 [facility] s [facility] Codeine Propensi Active Unknown - Univ ers ty to See comments 03-09 ity of adverse 00:00: [place] reaction 00 [facility] s [facility] Meperidi Propensi Active Unknown - Uni vers ne Hcl ty to See comments 03-09 ity of adverse 00:00: [place] reaction 00 Medical s Branch Cephalos Allergy Active Rash Data [place] porins to 03-09 migrated Health substanc 00:00: from GE e 00 Centricit y on 06/06/15. Originall y documente d as CEPHALOSP ORINS. heart problems Esomepra Allergy Active Other Data [place] zole to 03-09 migrated Health substanc 00:00: from GE e 00 Centricit y on 03/07/15. Originall y documente d as NEXIUM. codeineCA RDIAC ARRESTCAR DIAC ARRESTCAR DIAC ARRESTCAR DIAC ARREST Meperidi Propensi Active GI Method i ne Hcl ty to Intolerance 03-09 st adverse 00:00: Hospita reaction 00 l s to drug Family History Family Member Diagnosis Comments Start Date Stop Date Source Natural father [facility] Natural mother Scleroderma [facility] Natural sister Cervical cancer [facility] Natural sister Kidney cancer [facility] Natural sister Ovarian cancer [facility] Social History Social Habit Start Date Stop Date Quantity Comments Source Alcohol intake 2022-11-24 2022-11-24 Current drinker [facility] 00:00:00 00:00:00 of alcohol Hospital (finding) Exposure to 2022-07-12 2022-07-22 Not sure [facility] SARS-CoV-2 00:00:00 16:47:00 (event) Tobacco use and 2022-07-07 2022-07-07 Smokeless tobacco [facility] exposure 00:00:00 00:00:00 non-user Hospital Alcohol Comment 2017-03-16 2017-03-16 3X PER YEAR Methodis t 00:00:00 00:00:00 Hospital Sex Assigned At [birth year] [facility] 00:00:[facility] 00:00:00 Hospital Smoking Status Start Date Stop Date Source Tobacco smoking consumption unknown [facility] Never smoked tobacco [facility] Medications Ordered Filled Start Stop Current Ordering Indication Dosage Frequency Signature Comments Components Source Medication Medication Date Date Medication? Clinician (SIG) Name Name doxycycline 2022- No [id number] 100mg Q.5D Take 1 Methodi (VIBRAMYCIN 11-[address] ) 100 MG 00:00: 05:59 (100 mg Hospi ta capsule 00 :00 total) by l mouth 2 (two) times a day for 7 days. fluticasone 2021-11- Yes [id number] 100ug QD 2 sprays Methodi propionate 12-06 ([address] (FLONASE) 00:00: 05:59 total) by Ho spita 50 00 :00 Each Nare l mcg/actuati route on nasal daily for spray 30 days. benzonatate 2021-11- No [id number] 200mg Q.[id number] Take 1 Methodi (TESSALON) 11-[id number] 200 MG 00:00: 05:59 3D (200 mg Hospita capsule 00 :00 total) by l mouth 3 (three) times a day as needed for cough for up to 10 days. molnupiravi 2021-11- No [id number] 800mg Q12H Take 4 Methodi r 200 mg 11-[address] capsule 00:00: 05:59 (800 mg Hospit a 00 :00 total) by l mouth every 12 (twelve) hours for 5 days. cholecalcif 2021-11 Yes [id number] Q7D Take 1 Me thodi rey, 2-[address] vitamin D3, 00:00: (25,000 Hos melissa 625 mcg 00 Units l (25,000 total) by unit) mouth once capsule a week. folic acid 2021-11 Yes 1mg QD Take 1 mg Me thodi (FOLVITE) 1 2-[address] MG tablet 15:42: daily. Hospit a 43 l sucralfate 2021-11 Yes 1g Q.25D Take 1 g [facility] (CARAFATE) 2-[address] 1 gram 15:42: (four) Hospita tablet 43 times a l day. PENICILLAMI 2021-11 Yes 500mg Q.5D Take 500 M [facility] NE ORAL 2-[address] 15:42: mouth 2 [facility]osp[facility] 43 (two) l times a day. [place] 10 2021-11 Yes 30mg Q.5D Take 30 mg [facility] mg capsule 2-[address] 15:42: (two) [facility]ospita 43 times a l day. amphetamine 2021-11 Yes 20mg Q.5D Take 1 [facility] -dextroamph 2-[address] etamine XR 00:00: (20 mg Hos[facility] ta (Adderall 00 total) by l XR) 20 MG mouth 2 24 hr (two) capsule times a day. Max Daily Amount: 40 mg HYDROcodone 2021-11 Yes [id number] 1{tbl} Q6H Take 1 M [facility] -acetaminop 2-[address] [facility] (NORCO) 00:00: mouth [facility] 10-325 mg 00 every 6 l per tablet (six) hours as needed for moderate pain for up to 30 days .chronic pain. Max Daily Amount: 4 tablets medroxyPROG 2021-11 No [id number] 150mg [facility] ESTERone 1-22 11-22 st (DEPO-PROVE 23:00: 13:45 Hospi ta RA) 00 :00 l injection 150 mg amphetamine 2021-11 No 20mg Q.5D Take 1 Met hodi -dextroamph 1-22 12-[address] etamine XR 00:00: 00:00 (20 mg [facility] (Adderall 00 :00 total) by l XR) 20 MG mouth 2 24 hr (two) capsule times a day. Max Daily Amount: 40 mg HYDROcodone 2021-11- No [id number] 1{tbl} Q6H Take 1 [facility] -acetaminop 1-22 12-[address] [facility] (NORCO) 00:00: 00:00 mouth [facility] 10-325 mg 00 :00 every 6 l per tablet (six) hours as needed for moderate pain for up to 30 days .chronic pain. Max Daily Amount: 4 tablets amphetamine 2021-11 Yes 20mg Q.5D Take 1 [facility] -dextroamph 0-[address] etamine XR 00:00: (20 mg [facility] (Adderall 00 total) by l XR) 20 MG mouth 2 24 hr (two) capsule times a day. Max Daily Amount: 40 mg amphetamine 2021-11 No 20mg Q.5D Take 1 Met [facility] -dextroamph 0-31 11-[address] etamine XR 00:00: 00:00 (20 mg [facility] (Adderall 00 :00 total) by l XR) 20 MG mouth 2 24 hr (two) capsule times a day. Max Daily Amount: 40 mg topiramate 2021-11 Yes TAKE 1 [facility] (TOPAMAX) 0-[address] 100 MG 00:00: MOUTH [facility]osp[facility] tablet 00 TWICE A l DAY topiramate 2021-11 Yes TAKE 1 [facility] (TOPAMAX) 0-[address] 100 MG 00:00: MOUTH [facility]osp[facility] tablet 00 TWICE A l DAY folic acid 2021-11 Yes 1mg QD Take 1 mg [facility] (FOLVITE) 1 0-[address] MG tablet 16:28: daily. Hospit a 29 l sucralfate 2021-11 Yes 1g Q.25D Take 1 g [facility] (CARAFATE) 0-[address] 1 gram 16:28: (four) [facility]ospita tablet 29 times a l day. PENICILLAMI 2021-11 Yes 500mg Q.5D Take 500 M [facility]i NE ORAL 0-[address] 16:28: mouth 2 [facility]osp[facility] 29 (two) l times a day. diazePAM 2021-11- Yes 10mg QD Take 1 [facility] (VALIUM) 10 0-25 10-26 tablet (10 s t MG tablet 00:00: 04:59 mg total) Ho [facility] 00 :00 by mouth l nightly as needed for anxiety. diazePAM 2021-11- Yes 10mg QD Take 1 [facility] (VALIUM) 10 0-25 10-26 tablet (10 s t MG tablet 00:00: 04:59 mg total) [facility] 00 :00 by mouth l nightly as needed for anxiety. HYDROcodone 2021-11- Yes [id number] 1{tbl} Q6H Take 1 [facility] -acetaminop 0-25 11-[address] [facility] (NORCO) 00:00: 05:59 mouth [facility] 10-325 mg 00 :00 every 6 l per tablet (six) hours as needed for moderate pain for up to 30 days .chronic pain. Max Daily Amount: 4 tablets HYDROcodone 2021-11- No [id number] 1{tbl} Q6H Take 1 [facility] -acetaminop 0-25 11-[address] hen (NORCO) 00:00: 00:00 mouth [facility] 10-325 mg 00 :00 every 6 l per tablet (six) hours as needed for moderate pain for up to 30 days .chronic pain. Max Daily Amount: 4 tablets sulfamethox 2021-11- No [id number] 1{tbl} Q.5D Take 1 [facility] azole-trime 0-25 10-[address] thoprim 00:00: 04:59 mouth 2 Hospit a (Bactrim 00 :00 (two) l DS) 800-160 times a mg per day for 5 tablet days. sulfamethox 2021-11- No [id number] 1{tbl} Q.5D Take 1 [facility] azole-trime 0-25 10-[address] thoprim 00:00: 04:59 mouth 2 Hospit a (Bactrim 00 :00 (two) l DS) 800-160 times a mg per day for 5 tablet days. dicyclomine 2021-11 Yes TAKE 1 [facility] (BENTYL) 20 0-[address] mg tablet 00:00: MOUTH [facility]osp[facility] 00 EVERY 6 l HOURS NEEDED FOR STOMACH CRAMPING dicyclomine 2021-11 Yes TAKE 1 [facility] (BENTYL) 20 0-[address] mg tablet 00:00: MOUTH [facility]osp[facility] 00 EVERY 6 l HOURS NEEDED FOR STOMACH CRAMPING amphetamine 2022-1 2022- No 20mg Q.5D Take 1 [facility] -dextroamph 0-03 10-[address] etamine XR 00:00: 00:00 (20 mg [facility] (Adderall 00 :00 total) by l XR) 20 MG mouth 2 24 hr (two) capsule times a day. Max Daily Amount: 40 mg amphetamine 2021-1 2- No 20mg Q.5D Take 1 [facility] -dextroamph 0-03 10-[address] etamine XR 00:00: 00:00 (20 mg [facility] (Adderall 00 :00 total) by l XR) 20 MG mouth 2 24 hr (two) capsule times a day. Max Daily Amount: 40 mg HYDROcodone 2-0 2022- No [id number] 1{tbl} Q6H Take 1 [facility] -acetaminop 9-27 10-[address] hen (Bioincept) 00:00: 00:00 mouth [facility] 10-325 mg 00 :00 every 6 l per tablet (six) hours as needed for moderate pain for up to 30 days .chronic pain. Max Daily Amount: 4 tablets HYDROcodone 2022-0 2021- No [id number] 1{tbl} Q6H Take 1 [facility] -acetaminop 9-27 10-[address] hen (Bioincept) 00:00: 00:00 mouth [facility] 10-325 mg 00 :00 every 6 l per tablet (six) hours as needed for moderate pain for up to 30 days .chronic pain. Max Daily Amount: 4 tablets amphetamine 2-0 2- No 20mg Q.5D Take 1 [facility] -dextroamph 9-27 10-[address] etamine XR 00:00: 00:00 (20 mg [facility] (Adderall 00 :00 total) by l XR) 20 MG mouth 2 24 hr (two) capsule times a day. Max Daily Amount: 40 mg amphetamine 2022-0 2022- No 20mg Q.5D Take 1 [facility] -dextroamph 9-27 10-[address] etamine XR 00:00: 00:00 (20 mg [facility] (Adderall 00 :00 total) by l XR) 20 MG mouth 2 24 hr (two) capsule times a day. Max Daily Amount: 40 mg Mupirocin 2022-0 Yes [id number] COMPOUNDMi [facility] powder 9-15 x 200 mg Health 00:00: mupirocin 00 powder in SinusRinse Irrigate each side twice daily medroxyPROG 2021- No [id number] 150mg [facility] ESTERone 07-07 st (DEPO-PROVE 22:00: 22:10 Hospi ta RA) 00 :00 l injection 150 mg medroxyPROG 2021- No [id number] 150mg [facility] ESTERone 07-07 st (DEPO-PROVE 22:00: 22:10 Hospi ta RA) 00 :00 l injection 150 mg medroxyPROG No [id number] 150mg [facility] ESTERone 07-07 st (DEPO-PROVE 22:00: 22:10 Hospi ta RA) 00 :00 l injection 150 mg HYDROcodone Yes See UT -acetaminop 07-07 administra Adria rios ([employer]) 00:00: tion 10-325 MG 00 instructio tablet ns. PLEASE SEE ATTACHED FOR DETAILED DIRECTIONS fluconazole 2022- No 1 tab po x [facility] (Diflucan) 07-07 1 now, st 150 MG 00:00: 04:59 then Hospita tablet 00 :00 repeat l dose in 3 days for yeast fluconazole 2022- No 1 tab po x [facility] (Diflucan) 07-07 1 now, st 150 MG 00:00: 04:59 then Hospita tablet 00 :00 repeat l dose in 3 days for yeast fluconazole 2022- No 1 tab po x [facility] (Diflucan) 07-07 1 now, st 150 MG 00:00: 04:59 then Hospita tablet 00 :00 repeat l dose in 3 days for yeast HYDROcodone 2021- No [id number] 1{tbl} Q6H Take 1 [facility] -acetaminop 07-[address] gabriel (Bioincept) 00:00: 04:59 mouth [facility] 10-325 mg 00 :00 every 6 l per tablet (six) hours as needed for moderate pain for up to 30 days .chronic pain. Max Daily Amount: 4 tablets HYDROcodone 2021-0 2021- No [id number] 1{tbl} Q6H Take 1 [facility] -acetaminop 07-[address] [facility] (Bioincept) 00:00: 00:00 mouth [facility] 10-325 mg 00 :00 every 6 l per tablet (six) hours as needed for moderate pain for up to 30 days .chronic pain. Max Daily Amount: 4 tablets HYDROcodone 2021-0 2021- No [id number] 1{tbl} Q6H Take 1 [facility] -acetaminop 07-[address] [facility] (Bioincept) 00:00: 00:00 mouth [facility] 10-325 mg 00 :00 every 6 l per tablet (six) hours as needed for moderate pain for up to 30 days .chronic pain. Max Daily Amount: 4 tablets amoxicillin 0 Yes 1{tbl} Q.5D Take 1 [facility] -pot 8-[address] clavulanate 00:00: mouth 2 Hos melissa (AUGMENTIN) 00 (two) l 875-125 mg times a per tablet day. amoxicillin 2021- No 1{tbl} Q.5D Take 1 M [facility]i -pot -08-[address] clavulanate 00:00: 00:00 mouth 2 Ho [facility] (AUGMENTIN) 00 :00 (two) l 875-125 mg times a per tablet day. amoxicillin 2021-0 2021- No 1{tbl} Q.5D Take 1 M ethodi -pot 8-08-[address] clavulanate 00:00: 00:00 mouth 2 Ho [facility] (AUGMENTIN) 00 :00 (two) l 875-125 mg times a per tablet day. Rituxan 500 Yes DOCTOR [facility] MG/50ML 06-15 WILL Health chemo 00:00: ADMINISTER injection 00 RITUXAN 1000MG THROUGH IV INFUSION AT WEEK 0 WEEK 2 THEN EVERY 20 WEEKS IN OFFICE. amphetamine 2021-0 2021- No 20mg Q.5D Take 1 [facility] -dextroamph 06-[address] etamine XR 00:00: 04:59 (20 mg [facility] (Adderall 00 :00 total) by l XR) 20 MG mouth 2 24 hr (two) capsule times a day for 30 days. Max Daily Amount: 40 mg amphetamine 2022-0 2022- No 20mg Q.5D Take 1 Met [facility] -dextroamph 06-13- capsule st etamine XR 00:00: 04:59 (20 mg [facility] (Adderall 00 :00 total) by l XR) 20 MG mouth 2 24 hr (two) capsule times a day for 30 days. Max Daily Amount: 40 mg amphetamine 2022-0 2022- No 20mg Q.5D Take 1 [facility] -dextroamph 06-13- capsule st etamine XR 00:00: 04:59 (20 mg [facility] (Adderall 00 :00 total) by l XR) 20 MG mouth 2 24 hr (two) capsule times a day for 30 days. Max Daily Amount: 40 mg folic acid 2021-0 Yes 1mg QD Take 1 mg [facility] (FOLVITE) 1 8-[address] MG tablet 17:17: daily. Hospit a 40 l sucralfate 2021-0 Yes 1g Q.25D Take 1 g [facility] (CARAFATE) 8-[address] 1 gram 17:17: (four) Hospita tablet 40 times a l day. PENICILLAMI 2021-0 Yes 500mg Q.5D Take 500 M [facility]i NE ORAL 8-[address] 17:17: mouth 2 [facility]ospita 40 (two) l times a day. HYDROcodone 2-0 2021- No [id number] 1{tbl} Q6H Take 1 [facility] -acetaminop 8-02 08-[address] hen (Bioincept) 00:00: 00:00 mouth [facility] 10-325 mg 00 :00 every 6 l per tablet (six) hours as needed for moderate pain for up to 30 days .chronic pain. Max Daily Amount: 4 tablets HYDROcodone 2022-0 2022- No [id number] 1{tbl} Q6H Take 1 [facility] -acetaminop 8-02 08-[address] hen (Bioincept) 00:00: 00:00 mouth [facility] 10-325 mg 00 :00 every 6 l per tablet (six) hours as needed for moderate pain for up to 30 days .chronic pain. Max Daily Amount: 4 tablets HYDROcodone 2022-0 2022- [place] [id number] 1{tbl} Q6H Take 1 [facility] -acetaminop 8-02 08-[address] hen (NORCO) 00:00: 00:00 mouth [facility] 10-325 mg 00 :00 every 6 l per tablet (six) hours as needed for moderate pain for up to 30 days .chronic pain. Max Daily Amount: 4 tablets methotrexat Yes INJECT 1 [facility] e 50 MG/2ML 7-25 ML Health injection 00:00: INTRAMUSCU 00 LARLY ONCE A WEEK dexlansopra Yes 1{tbl} QD Take 1 [facility] zole 7-25 tablet by Health (Dexilant) 00:00: mouth [address] 00 (one) time capsule each day. dicyclomine Yes TAKE 1 [facility] (Bentyl) 20 7-25 TABLET BY a lth MG tablet 00:00: MOUTH 00 EVERY 6 HOURS NEEDED FOR STOMACH CRAMPING Dexilant 60 Yes TAKE 1 [facility] capsule 7-[address] 00:00: MOUTH [facility]osp[facility] 00 EVERY DAY l Dexilant 60 0 Yes TAKE 1 [facility] capsule 7-[address] 00:00: MOUTH [facility] 00 EVERY DAY l Dexilant 60 0 Yes TAKE 1 [facility] capsule 7-[address] 00:00: MOUTH [facility] 00 EVERY DAY l amphetamine 2021- No [id number] 20mg Q.5D Take 1 [facility] -dextroamph 7-05 08-[address] etamine XR 00:00: 04:59 (20 mg [facility] (Adderall 00 :00 total) by l XR) 20 MG mouth 2 24 hr (two) capsule times a day for 30 days. Max Daily Amount: 40 mg amphetamine 2021- No [id number] 20mg Q.5D Take 1 [facility] -dextroamph 7-05 08-[address] etamine XR 00:00: 04:59 (20 mg [facility] (Adderall 00 :00 total) by l XR) 20 MG mouth 2 24 hr (two) capsule times a day for 30 days. Max Daily Amount: 40 mg amphetamine 2021- No [id number] 20mg Q.5D Take 1 [facility] -dextroamph 7-03 15-[address] etamine XR 00:00: 04:59 (20 mg [facility] (Adderall 00 :00 total) by l XR) 20 MG mouth 2 24 hr (two) capsule times a day for 30 days. Max Daily Amount: 40 mg HYDROcodone 2022-0 2022- [place] [id number] 1{tbl} Q6H Take 1 [facility] -acetaminop 7-05 08-[address] [facility] (Bioincept) 00:00: 00:00 mouth [facility] 10-325 mg 00 :00 every 6 l per tablet (six) hours as needed for moderate pain for up to 30 days .chronic pain. Max Daily Amount: 4 tablets HYDROcodone 2022-0 2021- [place] [id number] 1{tbl} Q6H Take 1 [facility] -acetaminop 7-05 08-[address] [facility] (Bioincept) 00:00: 00:00 mouth [facility] 10-325 mg 00 :00 every 6 l per tablet (six) hours as needed for moderate pain for up to 30 days .chronic pain. Max Daily Amount: 4 tablets HYDROcodone 2022-0 2021- [place] [id number] 1{tbl} Q6H Take 1 [facility] -acetaminop 7-05 08-[address] hen (Bioincept) 00:00: 00:00 mouth [facility] 10-325 mg 00 :00 every 6 l per tablet (six) hours as needed for moderate pain for up to 30 days .chronic pain. Max Daily Amount: 4 tablets cholecalcif 2022-0 Yes [id number] Q7D Take 1 [facility] rey, 6-[address] vitamin D3, 00:00: (25,000 [facility] 625 mcg 00 Units l (25,000 total) by unit) mouth once capsule a week. cholecalcif 2022-0 Yes [id number] Q7D Take 1 [facility] rey, 6-[address] vitamin D3, 00:00: (25,000 [facility] mel[facility] 625 mcg 00 Units l (25,000 total) by unit) mouth once capsule a week. cholecalcif 2022-0 2022- No [id number] Q7D Take 1 M ethodi rey, 6-12 12-[address] vitamin D3, 00:00: 00:00 (25,000 [facility] 625 mcg 00 :00 Units l (25,000 total) by unit) mouth once capsule a week. cyanocobala 2021- No [id number] 1000ug [facility] min 6-08 13-10 st injection 21:00: 22:09 Hospita 1,000 mcg 00 :00 l cyanocobala 2021- No [id number] 1000ug [facility] min 6-08 13-10 st injection 21:00: 22:09 Hospita 1,000 mcg 00 :00 l cyanocobala 2021- No [id number] 1000ug [facility] min 6-04-17 st injection 21:00: 22:09 Hospita 1,000 mcg 00 :00 l methylPREDN 2022- No follow Met hodi ISolone 04-[address] (Medrol, 00:00: 04:59 directions Ho [facility] Chad,) 4 mg 00 :00 l tablet methylPREDN 2022- No follow [facility] ISolone 04-[address] (Medrol, 00:00: 04:59 directions [facility] Chad,) 4 mg 00 :00 l tablet methylPREDN 2022- No follow Met [facility] ISolone 04-[address] (Medrol, 00:00: 04:59 directions [facility] Chad,) 4 mg 00 :00 l tablet amphetamine 2021- No [id number] 20mg Q.5D Take 1 [facility] -dextroamph 04-[address] etamine XR 00:00: 00:00 (20 mg [facility] (Adderall 00 :00 total) by l XR) 20 MG mouth 2 24 hr (two) capsule times a day for 30 days. Max Daily Amount: 40 mg HYDROcodone 2021- No [id number] 1{tbl} Q6H Take 1 [facility] -acetaminop 04-[address] [facility] (NORCO) 00:00: 00:00 mouth [facility] 10-325 mg 00 :00 every 6 l per tablet (six) hours as needed for moderate pain for up to 30 days .chronic pain. Max Daily Amount: 4 tablets amphetamine 2021- No [id number] 20mg Q.5D Take 1 [facility] -dextroamph -08 14-[address] etamine XR 00:00: 00:00 (20 mg [facility] (Adderall 00 :00 total) by l XR) 20 MG mouth 2 24 hr (two) capsule times a day for 30 days. Max Daily Amount: 40 mg HYDROcodone 2021- No [id number] 1{tbl} Q6H Take 1 [facility] -acetaminop 6-08 14-[address] hen (Bioincept) 00:00: 00:00 mouth [facility] 10-325 mg 00 :00 every 6 l per tablet (six) hours as needed for moderate pain for up to 30 days .chronic pain. Max Daily Amount: 4 tablets amphetamine 2021- No [id number] 20mg Q.5D Take 1 [facility] -dextroamph 6-08 14-[address] etamine XR 00:00: 00:00 (20 mg [facility] (Adderall 00 :00 total) by l XR) 20 MG mouth 2 24 hr (two) capsule times a day for 30 days. Max Daily Amount: 40 mg HYDROcodone 2021- No [id number] 1{tbl} Q6H Take 1 [facility] -acetaminop -[address] [employer] (Bioincept) 00:00: 00:00 mouth [facility] 10-325 mg 00 :00 every 6 l per tablet (six) hours as needed for moderate pain for up to 30 days .chronic pain. Max Daily Amount: 4 tablets ciprofloxac 2021- No 500mg Q.5D Take 1 [facility] in (Cipro) 04-[address] 500 MG 00:00: 04:59 (500 mg Hospita tablet 00 :00 total) by l mouth 2 (two) times a day for 7 days. mupirocin 2021- No [id number] Apply [facility] (BACTROBAN) 04-[id number] 2 % 00:00: 04:59 3D 3 (three) Hospita ointment 00 :00 times a l day for 7 days. ciprofloxac 2021- No 500mg Q.5D Take 1 [facility] in (Cipro) 04-[address] 500 MG 00:00: 04:59 (500 mg [facility]ospita tablet 00 :00 total) by l mouth 2 (two) times a day for 7 days. mupirocin 2021-0 2- No [id number] Apply [facility] (BACTROBAN) 04-[id number] 2 % 00:00: 04:59 3D 3 (three) [facility]ospita ointment 00 :00 times a l day for 7 days. ciprofloxac 2021-0 2021- No 500mg Q.5D Take 1 [facility] in (Cipro) 04-[address] 500 MG 00:00: 04:59 (500 mg [facility]osp[facility] tablet 00 :00 total) by l mouth 2 (two) times a day for 7 days. mupirocin 2021-2021- No [id number] Apply [facility] (BACTROBAN) 04-[id number] 2 % 00:00: 04:59 3D 3 (three) [facility]ospita ointment 00 :00 times a l day for 7 days. colestipol 2021-2022- No 1g Q.5D Take 1 g [facility] (Colestid) 04-13 by mouth [facility] 1 g tablet 00:00: 04:59 in the 00 :00 morning and 1 g in the evening. colestipoL 2021-0 2022- No 1g Q.5D TAKE 1 [facility] (COLESTID) 04-13 TABLET (1 st 1 gram 00:00: 04:59 G TOTAL) Hospit a tablet 00 :00 BY MOUTH 2 l (TWO) TIMES A DAY. FOR DIARRHEA colestipoL 2021-0 2022- No 1g Q.5D TAKE 1 [facility] (COLESTID) 04-13- TABLET (1 st 1 gram 00:00: 04:59 G TOTAL) Hospit a tablet 00 :00 BY MOUTH 2 l (TWO) TIMES A DAY. FOR DIARRHEA colestipoL 2021-0 2022- No 1g Q.5D TAKE 1 [facility] (COLESTID) 04-13- TABLET (1 st 1 gram 00:00: 04:59 G TOTAL) Hospit a tablet 00 :00 BY MOUTH 2 l (TWO) TIMES A DAY. FOR DIARRHEA pantoprazol 2-0 Yes [id number] TAKE 1 [facility] e 5-[address] (PROTONIX) 00:00: MOUTH Hospit a 40 MG EC 00 EVERY DAY l tablet pantoprazol 2-0 Yes [id number] TAKE 1 [facility] e 5-[address] (PROTONIX) 00:00: MOUTH Hospit a 40 MG EC 00 EVERY DAY l tablet pantoprazol 2-0 Yes [id number] TAKE 1 [facility] e 5-[address] (PROTONIX) 00:00: MOUTH Hospit a 40 MG EC 00 EVERY DAY l tablet colestipoL 2021-0 2022- No 1g Q.5D TAKE 1 [facility] (COLESTID) 03-31 TABLET (1 st 1 gram 00:00: 00:00 G TOTAL) Hospit a tablet 00 :00 BY MOUTH 2 l (TWO) TIMES A DAY. FOR DIARRHEA colestipoL 2021-0 202- No 1g Q.5D TAKE 1 [facility] (COLESTID) 03-31 TABLET (1 st 1 gram 00:00: 00:00 G TOTAL) Hospit a tablet 00 :00 BY MOUTH 2 l (TWO) TIMES A DAY. FOR DIARRHEA colestipoL 2021-0 2021- No 1g Q.5D TAKE 1 [facility] (COLESTID) 03-31 TABLET (1 st 1 gram 00:00: 00:00 G TOTAL) Hospit a tablet 00 :00 BY MOUTH 2 l (TWO) TIMES A DAY. FOR DIARRHEA amLODIPine 2021-0 Yes [id number] TAKE 1 [facility] (NORVASC) 5-[address] 10 mg 00:00: MOUTH [facility]osp[facility] tablet 00 EVERY DAY l FOR BLOOD PRESSURE amLODIPine 2-0 Yes [id number] TAKE 1 [facility] (NORVASC) 5-[address] 10 mg 00:00: MOUTH [facility]osp[facility] tablet 00 EVERY DAY l FOR BLOOD PRESSURE amLODIPine 2-0 Yes [id number] TAKE 1 [facility] (NORVASC) 5-[address] 10 mg 00:00: MOUTH [facility]osp[facility] tablet 00 EVERY DAY l FOR BLOOD PRESSURE Adderall XR 2021-0 Yes [facility] 1 capsule [facility] 5-11 Vo in the l 02:45: morning [place] 30 Hydrocodone 2021-0 Yes [facility] 1 tablet [facility] -Acetaminop 5-11 Vo as needed l hen 02:45: [place] 30 Rituxan 2021-0 Yes [facility] DOCTOR Me moria 5-11 Vo WILL l 02:45: ADMINISTER [place] 30 RITUXAN 1000MG THROUGH IV INFUSION ON WEEK 0, WEEK 2, THEN EVERY 24 WEEKS IN OFFICE PredniSONE 2021-0 Yes Rut 1 tablet [facility]oria 5-11 Vo l 02:45: [place] 30 Diazepam 2021-0 Yes Rut as Mem oria 5-11 Vo directed l 02:45: [place] 30 Methotrexat 0 Yes Rut INJECT 1 [facility] e Sodium 5-11 Vo ML l 02:45: INTRAMUSCU [place] 30 LARLY ONCE A WEEK Phenergan 0 Yes Rut not Me moria 5-11 Vo defined l 02:45: Ezra 30 Folic Acid 0 Yes Rut TAKE 1 [facility] 5-11 Vo TABLET BY l 02:45: MOUTH [place] 30 EVERY DAY Adderall XR 0 Yes Rut 1 capsule [facility] 5-11 Vo in the l 02:45: morning [facility] 30 Hydrocodone 0 Yes Rut 1 tablet [facility] -Acetaminop 5-11 Vo as needed l hen 02:45: [place] 30 Rituxan 2021-0 Yes Rut DOCTOR Me moria 5-11 Vo WILL l 02:45: ADMINISTER [place] 30 RITUXAN 1000MG THROUGH IV INFUSION ON WEEK 0, WEEK 2, THEN EVERY 24 WEEKS IN OFFICE PredniSONE 0 Yes Rut 1 tablet [facility]oria 5-11 Vo l 02:45: [place] 30 Diazepam 2021-0 Yes Rut as Mem oria 5-11 Vo directed l 02:45: [place] 30 Methotrexat 0 Yes Rut INJECT 1 [facility] e Sodium 5-11 Vo ML l 02:45: INTRAMUSCU [facility] 30 LARLY ONCE A WEEK Phenergan 0 Yes Rut not Me moria 5-11 Vo defined l 02:45: Ezra 30 Folic Acid 0 Yes Rut TAKE 1 [facility] 5-11 Vo TABLET BY l 02:45: MOUTH [place] 30 EVERY DAY Adderall XR 2021-0 Yes [facility] 1 capsule [facility] 5-11 Vo in the l 02:45: morning [facility] 30 Hydrocodone 2021-0 Yes Rut 1 tablet [facility] -Acetaminop 5-11 Vo as needed l hen 02:45: [place] 30 Rituxan 0 Yes Rut DOCTOR Me moria 5-11 Vo WILL l 02:45: ADMINISTER [place] 30 RITUXAN 1000MG THROUGH IV INFUSION ON WEEK 0, WEEK 2, THEN EVERY 24 WEEKS IN OFFICE PredniSONE 2021-0 Yes Rut 1 tablet [facility]oria 5-11 Vo l 02:45: Ezra 30 Diazepam 2021-0 Yes Rut as Mem oria 5-11 Vo directed l 02:45: [place] 30 Methotrexat 0 Yes Rut INJECT 1 [facility] e Sodium 5-11 Vo ML l 02:45: INTRAMUSCU [facility] 30 LARLY ONCE A WEEK Phenergan 0 Yes Rut not Me moria 5-11 Vo defined l 02:45: [place] 30 Folic Acid 0 Yes Rut TAKE 1 [facility] 5-11 Vo TABLET BY l 02:45: MOUTH [place] 30 EVERY DAY Adderall XR 0 Yes Rut 1 capsule [facility]oria 5-11 Vo in the l 02:45: morning [facility] 30 Hydrocodone 0 Yes Rut 1 tablet [facility] -Acetaminop 5-11 Vo as needed l hen 02:45: [facility] 30 Rituxan 0 Yes Rut DOCTOR Me moria 5-11 Vo WILL l 02:45: ADMINISTER [place] 30 RITUXAN 1000MG THROUGH IV INFUSION ON WEEK 0, WEEK 2, THEN EVERY 24 WEEKS IN OFFICE PredniSONE 0 Yes Rut 1 tablet Memoria 5-11 Vo l 02:45: [place] 30 Diazepam 2021-0 Yes Rut as Mem oria 5-11 Vo directed l 02:45: Ez[place] 30 Methotrexat 0 Yes Rut INJECT 1 [facility] e Sodium 5-11 Vo ML l 02:45: INTRAMUSCU [place] 30 LARLY ONCE A WEEK Phenergan 0 Yes Rut not Me moria 5-11 Vo defined l 02:45: Ez[facility] 30 Folic Acid 2022-0 Yes Rut TAKE 1 [facility] 5-11 Vo TABLET BY l 02:45: MOUTH [place] 30 EVERY DAY Adderall XR 2021-0 Yes Rut 1 capsule [facility]oria 5-11 Vo in the l 02:45: morning [facility] 30 Hydrocodone 0 Yes Rut 1 tablet [facility] -Acetaminop 5-11 Vo as needed l hen 02:45: [place] 30 Rituxan 0 Yes Rut DOCTOR Me moria 5-11 Vo WILL l 02:45: ADMINISTER [place] 30 RITUXAN 1000MG THROUGH IV INFUSION ON WEEK 0, WEEK 2, THEN EVERY 24 WEEKS IN OFFICE PredniSONE 0 Yes Rut 1 tablet Memoria 5-11 Vo l 02:45: Ez[place] 30 Diazepam 0 Yes Rut as Mem oria 5-11 Vo directed l 02:45: [place] 30 Methotrexat 0 Yes Rut INJECT 1 [facility] e Sodium 5-11 Vo ML l 02:45: INTRAMUSCU [place] 30 LARLY ONCE A WEEK Phenergan 0 Yes Rut not Me moria 5-11 Vo defined l 02:45: [place] 30 Folic Acid 0 Yes Rut TAKE 1 [facility] 5-11 Vo TABLET BY l 02:45: MOUTH [place] 30 EVERY DAY Adderall XR 0 Yes Rut 1 capsule [facility] 5-11 Vo in the l 02:45: morning Ez[facility] 30 Hydrocodone 0 Yes Rut 1 tablet [facility] -Acetaminop 5-11 Vo as needed l hen 02:45: [place] 30 Rituxan 0 Yes Rut DOCTOR Me moria 5-11 Vo WILL l 02:45: ADMINISTER [place] 30 RITUXAN 1000MG THROUGH IV INFUSION ON WEEK 0, WEEK 2, THEN EVERY 24 WEEKS IN OFFICE PredniSONE 2021-0 Yes Rut 1 tablet Memoria 5-11 Vo l 02:45: Jennings 30 Diazepam 0 Yes Rut as Mem oria 5-11 Vo directed l 02:45: Jennings 30 Methotrexat 0 Yes Rut INJECT 1 Memoria e Sodium 5-11 Vo ML l 02:45: INTRAMUSCU Ezra 30 LARLY ONCE A WEEK Phenergan 2022-0 Yes Rut not Me moria 5-11 Vo defined l 02:45: Jennings 30 Folic Acid Yes Rut TAKE 1 Memoria 5-11 Vo TABLET BY l 02:45: MOUTH Jennings 30 EVERY DAY cholecalcif 0 Yes TAKE 1 [facility], 03-[address] vitamin D3, 00:00: MOUTH ONE [facility] 1,250 mcg 00 TIME PER l (50,000 WEEK unit) capsule cholecalcif Yes TAKE 1 [facility], 03-[address] vitamin D3, 00:00: MOUTH ONE [facility] 1,250 mcg 00 TIME PER l (50,000 WEEK unit) capsule cholecalcif 2021- No TAKE 1 [facility], 03-[address] vitamin D3, 00:00: 00:00 MOUTH ONE [facility] 1,250 mcg 00 :00 TIME PER l (50,000 WEEK unit) capsule Amlodipine Yes Caroline 1 tablet Me mor[facility] Besylate 5-06 Vilardo l 02:45: Jennings 18 Amlodipine 0 Yes Caroline 1 tablet Me [facility] Besylate 5-06 Vilardo l 02:45: Jennings 18 Amlodipine 0 Yes Caroline 1 tablet Me [facility] Besylate 5-06 Vilardo l 02:45: Ezra 18 Amlodipine 0 Yes Caroline 1 tablet Me mor[facility] Besylate 5-06 Vilardo l 02:45: Jennings 18 Amlodipine 0 Yes Caroline 1 tablet Me [facility] Besylate 5-06 Vilardo l 02:45: Jennings 18 Amlodipine 2021-0 Yes Caroline 1 tablet Me mor[facility] Besylate 5-06 Vilardo l 02:45: Ezra 18 topiramate 2021-0 3- No 100mg Q.5D Take 1 Met [facility] (Topamax) 03-13 05- tablet st 100 MG 00:00: 04:59 (100 mg [facility]osp[facility] tablet 00 :00 total) by l mouth 2 (two) times a day. topiramate 0 2021- No 100mg Q.5D Take 1 [facility] (Topamax) 03-[address] 100 MG 00:00: 16:00 (100 mg [facility] tablet 00 :38 total) by l mouth 2 (two) times a day. topiramate 2021-0 2021- No 100mg Q.5D Take 1 [facility] (Topamax) 03-13 10-[address] 100 MG 00:00: 16:00 (100 mg [facility] tablet 00 :38 total) by l mouth 2 (two) times a day. HYDROcodone 2021-0 2021- No [id number] 1{tbl} Q6H Take 1 [facility] -acetaminop 5-06 06-[address] [facility] (Bioincept) 00:00: 00:00 mouth [facility] 10-325 mg 00 :00 every 6 l per tablet (six) hours as needed for moderate pain for up to 30 days .chronic pain. Max Daily Amount: 4 tablets HYDROcodone 2021-0 2021- [place] [id number] 1{tbl} Q6H Take 1 [facility] -acetaminop 5-06 06-[address] [facility] (Bioincept) 00:00: 00:00 mouth [facility] 10-325 mg 00 :00 every 6 l per tablet (six) hours as needed for moderate pain for up to 30 days .chronic pain. Max Daily Amount: 4 tablets HYDROcodone 2021-0 2021- No [id number] 1{tbl} Q6H Take 1 [facility] -acetaminop 5-06 06-[address] [facility] (Bioincept) 00:00: 00:00 mouth [facility] 10-325 mg 00 :00 every 6 l per tablet (six) hours as needed for moderate pain for up to 30 days .chronic pain. Max Daily Amount: 4 tablets amphetamine 2021-0 2021- No 20mg QD Take 1 [facility] -dextroamph 03-13- capsule st etamine XR 00:00: 04:59 (20 mg [facility] (Adderall 00 :00 total) by l XR) 20 MG mouth 24 hr every capsule morning for 30 days. Max Daily Amount: 20 mg amphetamine 2-0 2021- No 10mg QD Take 1 [facility] -dextroamph 03-13-[address] etamine XR 00:00: 04:59 (10 mg [facility] (Adderall 00 :00 total) by l XR) 10 MG mouth 24 hr every capsule morning for 30 days. Max Daily Amount: 10 mg amphetamine 2022-0 2022- No 20mg QD Take 1 [facility] -dextroamph 5-04 13-[address] etamine XR 00:00: 04:59 (20 mg [facility] (Adderall 00 :00 total) by l XR) 20 MG mouth 24 hr every capsule morning for 30 days. Max Daily Amount: 20 mg amphetamine 2022-0 2022- No 10mg QD Take 1 [facility] -dextroamph 5-04 13-[address] etamine XR 00:00: 04:59 (10 mg [facility] (Adderall 00 :00 total) by l XR) 10 MG mouth 24 hr every capsule morning for 30 days. Max Daily Amount: 10 mg amphetamine 2022-0 2022- No 20mg QD Take 1 [facility] -dextroamph 5-04 13-[address] etamine XR 00:00: 04:59 (20 mg [facility] (Adderall 00 :00 total) by l XR) 20 MG mouth 24 hr every capsule morning for 30 days. Max Daily Amount: 20 mg amphetamine 2022-0 2022- No 10mg QD Take 1 [facility] -dextroamph 5-04 13-[address] etamine XR 00:00: 04:59 (10 mg [facility] (Adderall 00 :00 total) by l XR) 10 MG mouth 24 hr every capsule morning for 30 days. Max Daily Amount: 10 mg medroxyPROG 2022-0 Yes 150mg 150 mg [facility] ESTERone 4-29 every 3 Health (Depo-Prove 00:00: (three) ra) 150 00 months. MG/ML INJECT 1 injection MILLILITER INTO THE SHOULDER THIGH OR BUTTOCKS medroxyPROG 2022-0 Yes [id number] 150mg Q90D Inject 1 [facility] ESTERone 4-29 mL ([address] (DEPO-PROVE 00:00: total) [facility] RA) 150 00 into the l mg/mL shoulder, injection thigh, or buttocks every 3 (three) months. medroxyPROG 2022-0 Yes [id number] 150mg Q90D Inject 1 [facility] ESTERone 4-29 mL ([address] (DEPO-PROVE 00:00: total) [facility] RA) 150 00 into the l mg/mL shoulder, injection thigh, or buttocks every 3 (three) months. medroxyPROG Yes [id number] 150mg Q90D Inject 1 [facility] ESTERone 4-29 mL ([address] (DEPO-PROVE 00:00: total) [facility] RA) 150 00 into the l mg/mL shoulder, injection thigh, or buttocks every 3 (three) months. escitalopra 2021- No TAKE 1 [facility] (LEXAPRO) - 05-[address] 5 MG tablet 00:00: 00:00 MOUTH [facility] 00 :00 EVERY DAY l escitalopra 2021- No TAKE 1 [facility] (LEXAPRO) 4- 05-[address] 5 MG tablet 00:00: 00:00 MOUTH [facility] 00 :00 EVERY DAY l escitalopra 2021- No TAKE 1 [facility] (LEXAPRO) 03-06 05-[address] 5 MG tablet 00:00: 00:00 MOUTH [facility] 00 :00 EVERY DAY l medroxyPROG 2021- No [id number] INJECT 1 [facility] ESTERone 4-29 05-[address] (DEPO-PROVE 00:00: 00:00 INTO THE H [facility]spita RA) 150 00 :00 SHOULDER, l mg/mL THIGH, OR syringe BUTTOCKS injection EVERY 3 MONTHS medroxyPROG 2021- No [id number] INJECT 1 [facility] ESTERone 4-29 05-[address] (DEPO-PROVE 00:00: 00:00 INTO THE H [facility]spita RA) 150 00 :00 SHOULDER, l mg/mL THIGH, OR syringe BUTTOCKS injection EVERY 3 MONTHS medroxyPROG 0 2021- No [id number] INJECT 1 [facility] ESTERone 4-29 05-[address] (DEPO-PROVE 00:00: 00:00 INTO THE H [facility]sp[facility] RA) 150 00 :00 SHOULDER, l mg/mL THIGH, OR syringe BUTTOCKS injection EVERY 3 MONTHS dicyclomine Yes TAKE 1 [facility] (BENTYL) 20 4-[address] mg tablet 00:00: MOUTH [facility]osp[facility] 00 EVERY 6 l HOURS NEEDED FOR STOMACH CRAMPING dicyclomine 2021- No TAKE 1 [facility] (BENTYL) 20 4-28 10-[address] mg tablet 00:00: 13:22 MOUTH Hospit a 00 :10 EVERY 6 l HOURS NEEDED FOR STOMACH CRAMPING dicyclomine 2021-2021- No TAKE 1 [facility] (BENTYL) 20 4-28 10-[address] mg tablet 00:00: 13:22 MOUTH Hospit a 00 :10 EVERY 6 l HOURS NEEDED FOR STOMACH CRAMPING colestipoL 2021-2021- No 1g Q.5D TAKE 1 [facility] (COLESTID) 4-19 05-24 TABLET (1 st 1 gram 00:00: 00:00 G TOTAL) Hospit a tablet 00 :00 BY MOUTH 2 l (TWO) TIMES A DAY. FOR DIARRHEA colestipoL 2021- No 1g Q.5D TAKE 1 [facility] (COLESTID) 4-19 05-24 TABLET (1 st 1 gram 00:00: 00:00 G TOTAL) Hospit a tablet 00 :00 BY MOUTH 2 l (TWO) TIMES A DAY. FOR DIARRHEA colestipoL 2021- No 1g Q.5D TAKE 1 [facility] (COLESTID) 4-19 05-24 TABLET (1 st 1 gram 00:00: 00:00 G TOTAL) Hospit a tablet 00 :00 BY MOUTH 2 l (TWO) TIMES A DAY. FOR DIARRHEA cholestyram 2021- No 1{packe Q.[id number] Take 1 [facility] ine 4-06 04-06 t} [id number] packet by st (QUESTRAN) 14:45: 00:00 3D mouth 3 [facility] 4 gram 09 :00 (three) l packet times a day with meals. cholestyram 2021- No 1{packe Q.[id number] Take 1 [facility] 4-06 04-06 t} [id number] packet by st (QUESTRAN) 14:45: 00:00 3D mouth 3 [facility] 4 gram 09 :00 (three) l packet times a day with meals. cholestyram 2021- No 1{packe Q.[id number] Take 1 [facility] 4-06 04-06 t} [id number] packet by st (QUESTRAN) 14:45: 00:00 3D mouth 3 [facility] 4 gram 09 :00 (three) l packet times a day with meals. HYDROcodone 2021-0 2021- [place] [id number] 1{tbl} Q6H Take 1 [facility] -acetaminop 4-06 05-[address] [facility] (NORCO) 00:00: 00:00 mouth [facility] 10-325 mg 00 :00 every 6 l per tablet (six) hours as needed for moderate pain for up to 30 days .chronic pain. Max Daily Amount: 4 tablets HYDROcodone 2021-0 2021- No [id number] 1{tbl} Q6H Take 1 [facility] -acetaminop 4-06 05-[address] [facility] (NORCodaMation) 00:00: 00:00 mouth [facility] 10-325 mg 00 :00 every 6 l per tablet (six) hours as needed for moderate pain for up to 30 days .chronic pain. Max Daily Amount: 4 tablets HYDROcodone 2021-0 2021- No [id number] 1{tbl} Q6H Take 1 [facility] -acetaminop 4- 05-[address] [facility] (NORCO) 00:00: 00:00 mouth [facility] 10-325 mg 00 :00 every 6 l per tablet (six) hours as needed for moderate pain for up to 30 days .chronic pain. Max Daily Amount: 4 tablets ciprofloxac 2021-0 2021- No 500mg Q.5D Take 1 [facility] (Cipro) 02-[address] 500 MG 00:00: 04:59 (500 mg [facility]osp[facility] tablet 00 :00 total) by l mouth 2 (two) times a day for 7 days. ciprofloxac 2021-0 202- No 500mg Q.5D Take 1 [facility] (Cipro) 02-[address] 500 MG 00:00: 04:59 (500 mg [facility] tablet 00 :00 total) by l mouth 2 (two) times a day for 7 days. ciprofloxac 2021-0 2021- No 500mg Q.5D Take 1 [facility] (Cipro) 02-[address] 500 MG 00:00: 04:59 (500 mg [facility]osp[facility] tablet 00 :00 total) by l mouth 2 (two) times a day for 7 days. ketorolac 2021- No 15mg 15 mg, [facility] (TORADOL) 02-10 Slow IV ity of injection 08:30: 07:28 Push, [place] 15 mg 00 :00 ONCE, 1 Medical dose, On Branch Wed02/10/22 at 0330, Routine NaCl 0.9% 2021- No 500mL at 999 [facility] (NS) bolus 02-10-05 mL/hr, 500 it y of infusion 08:30: 08:39 mL, IV [place] 500 mL 00 :00 Infusion, Medical ONCE, 1 Branch dose, On Wed02/10/22 at 0330, PAYAL HYDROcodone 2021- No [id number] 1{tbl} Take 1 U n[facility] -acetaminop 02-10 tablet by it y of hen (NORCO) 00:00: 04:59 [place] 10-325 mg 00 :00 every 6 Medical tablet (six) Branch hours as needed for Pain (scale 7-10) for up to 7 days. Indication s: acute pain promethazin 0 Yes 50mg Take 50 mg UT e 3-23 by mouth Health (Phenergan) 00:00: every 8 50 MG 00 (eight) tablet hours if needed. promethazin 2021-0 Yes [id number] 50mg Q8H TAKE 1 [facility] 3-23 TABLET (50 st (PHENERGAN) 00:00: MG TOTAL) H [facility]spita 50 MG 00 BY MOUTH l tablet EVERY 8 (EIGHT) HOURS NEEDED FOR NAUSEA OR VOMITING. promethazin 2021-0 Yes [id number] 50mg Q8H TAKE 1 [facility] 3-23 TABLET (50 st (PHENERGAN) 00:00: MG TOTAL) H [facility]sp[facility] 50 MG 00 BY MOUTH l tablet EVERY 8 (EIGHT) HOURS NEEDED FOR NAUSEA OR VOMITING. promethazin 2021-0 Yes [id number] 50mg Q8H TAKE 1 [facility] 3-23 TABLET (50 st (PHENERGAN) 00:00: MG TOTAL) [facility]sp[facility] 50 MG 00 BY MOUTH l tablet EVERY 8 (EIGHT) HOURS NEEDED FOR NAUSEA OR VOMITING. colestipoL 0 2022- No 1g Q.5D TAKE 1 [facility] (COLESTID) 01-28-19 TABLET (1 st 1 gram 00:00: 13:19 G TOTAL) Hospit a tablet 00 :38 BY MOUTH 2 l (TWO) TIMES A DAY. FOR DIARRHEA colestipoL 2021-0 2021- No 1g Q.5D TAKE 1 [facility] (COLESTID) 01-28-19 TABLET (1 st 1 gram 00:00: 13:19 G TOTAL) Hospit a tablet 00 :38 BY MOUTH 2 l (TWO) TIMES A DAY. FOR DIARRHEA colestipoL 2021-0 2021- No 1g Q.5D TAKE 1 [facility] (COLESTID) 01-28-19 TABLET (1 st 1 gram 00:00: 13:19 G TOTAL) Hospit a tablet 00 :38 BY MOUTH 2 l (TWO) TIMES A DAY. FOR DIARRHEA blood sugar 2021- No [facility] diagnostic 01-21 st strips 12:07: 00:00 Hospita strip test 55 :00 l strips lancets 2021-0 2022- No [facility] misc 01-21 st 12:07: 00:00 Hospita 55 :00 l blood-gluco 2-0 2022- No [facility] di se meter 01-21 st misc 12:07: 00:00 Hospita 55 :00 l blood sugar 2-0 2022- No [facility] di diagnostic 01-21 st strips 12:07: 00:00 Hospita strip test 55 :00 l strips lancets 2021-0 2022- No [facility] misc 01-21 st 12:07: 00:00 Hospita 55 :00 l blood-gluco 2-0 2022- No [facility] se meter 01-21 st misc 12:07: 00:00 Hospita 55 :00 l blood sugar 2021-0 2- No [facility] di diagnostic 01-21 st strips 12:07: 00:00 Hospita strip test 55 :00 l strips lancets 2021-0 2022- No [facility] misc 01-2116 st 12:07: 00:00 Hospita 55 :00 l blood-gluco 2-0 2022- No [facility] di se meter 3-16 03-16 st misc 12:07: 00:00 Hospita 55 :00 l blood-gluco 2022-0 Yes [id number] Dispense 1 [facility] se meter 3-[address] misc 00:00: glucose Hospita 00 meter to l check blood sugar once daily blood sugar 2-0 Yes [id number] Check [facility] diagnostic 3-[address] strips 00:00: sugar once Hospi ta strip test 00 daily l strips lancets 2-0 Yes [id number] Check [facility] misc 3-[address] 00:00: sugar once [facility]osp[facility] 00 daily l blood-gluco 2-0 Yes [id number] Dispense 1 [facility] se meter 3-[address] misc 00:00: glucose [facility]osp[facility] 00 meter to l check blood sugar once daily blood sugar 2-0 Yes [id number] Check [facility] diagnostic 3-[address] strips 00:00: sugar once Hospi ta strip test 00 daily l strips lancets 2021-0 Yes [id number] Check [facility] misc 3-[address] 00:00: sugar once [facility]osp[facility] 00 daily l blood-gluco 2-0 Yes [id number] Dispense 1 [facility] se meter 3-[address] misc 00:00: glucose [facility]osp[facility] 00 meter to l check blood sugar once daily blood sugar 2-0 Yes [id number] Check [facility] diagnostic 3-[address] strips 00:00: sugar once Hospi ta strip test 00 daily l strips lancets 2-0 Yes [id number] Check [facility] misc 3-[address] 00:00: sugar once [facility]osp[facility] 00 daily l HYDROcodone 2021-0 2021- No [id number] 1{tbl} Q6H Take 1 [facility] -acetaminop 3-01 -[address] [place]) 00:00: 00:00 mouth [facility] 10-325 mg 00 :00 every 6 l per tablet (six) hours as needed for moderate pain for up to 30 days .chronic pain. Max Daily Amount: 4 tablets HYDROcodone 2021-0 2021- No [id number] 1{tbl} Q6H Take 1 [facility] -acetaminop 3-01 -06 tablet by [employer]) 00:00: 00:00 mouth [facility] 10-325 mg 00 :00 every 6 l per tablet (six) hours as needed for moderate pain for up to 30 days .chronic pain. Max Daily Amount: 4 tablets HYDROcodone 2022-0 2021- No [id number] 1{tbl} Q6H Take 1 [facility] -acetaminop 3-01 -[address] [facility] (Bioincept) 00:00: 00:00 mouth [facility] 10-325 mg 00 :00 every 6 l per tablet (six) hours as needed for moderate pain for up to 30 days .chronic pain. Max Daily Amount: 4 tablets HYDROcodone 2022-0 2021- No [id number] 1{tbl} Q6H Take 1 [facility] -acetaminop 3-11 10- tablet by [facility] (Bioincept) 00:00: 00:00 mouth [facility] 10-325 mg 00 :00 every 6 l per tablet (six) hours as needed for moderate pain for up to 30 days .chronic pain. Max Daily Amount: 4 tablets HYDROcodone 2-0 2021- No [id number] 1{tbl} Q6H Take 1 [facility] -acetaminop 3-11 10- tablet by [facility] (Bioincept) 00:00: 00:00 mouth [facility] 10-325 mg 00 :00 every 6 l per tablet (six) hours as needed for moderate pain for up to 30 days .chronic pain. Max Daily Amount: 4 tablets HYDROcodone 2-0 2021- No [id number] 1{tbl} Q6H Take 1 [facility] -acetaminop 3-01 - tablet by [facility] (Bioincept) 00:00: 00:00 mouth [facility] 10-325 mg 00 :00 every 6 l per tablet (six) hours as needed for moderate pain for up to 30 days .chronic pain. Max Daily Amount: 4 tablets colestipoL 2021-0 2021- No 1g Q.5D TAKE 1 [facility] (COLESTID) 2-30 01-23 TABLET (1 st 1 gram 00:00: 00:00 G TOTAL) Hospit a tablet 00 :00 BY MOUTH 2 l (TWO) TIMES A DAY. FOR DIARRHEA colestipoL 2022-0 2021- No 1g Q.5D TAKE 1 [facility] (COLESTID) 2-25 -23 TABLET (1 st 1 gram 00:00: 00:00 G TOTAL) Hospit a tablet 00 :00 BY MOUTH 2 l (TWO) TIMES A DAY. FOR DIARRHEA colestipoL 2021- No 1g Q.5D TAKE 1 [facility] (COLESTID) 2-25 03-23 TABLET (1 st 1 gram 00:00: 00:00 G TOTAL) Hospit a tablet 00 :00 BY MOUTH 2 l (TWO) TIMES A DAY. FOR DIARRHEA medroxyPROG 2021- No [id number] INJECT 1 [facility] ESTERone 2-08 04-29 ML ([address] (DEPO-PROVE 00:00: 00:00 TOTAL) [facility] RA) 150 00 :00 INTO THE l mg/mL SHOULDER, syringe THIGH, OR injection BUTTOCKS EVERY 3 (THREE) MONTHS. medroxyPROG 2021-2021- No [id number] INJECT 1 [facility] ESTERone 2-08 04-29 ML ([address] (DEPO-PROVE 00:00: 00:00 TOTAL) [facility] RA) 150 00 :00 INTO THE l mg/mL SHOULDER, syringe THIGH, OR injection BUTTOCKS EVERY 3 (THREE) MONTHS. medroxyPROG 2021-2021- No [id number] INJECT 1 [facility] ESTERone 2-08 04-29 ML ([address] (DEPO-PROVE 00:00: 00:00 TOTAL) [facility] RA) 150 00 :00 INTO THE l mg/mL SHOULDER, syringe THIGH, OR injection BUTTOCKS EVERY 3 (THREE) MONTHS. HYDROcodone 2021- No [id number] 1{tbl} Q6H Take 1 [facility] -acetaminop 2-01 03-[address] [employer] (Bioincept) 00:00: 00:00 mouth [facility] 10-325 mg 00 :00 every 6 l per tablet (six) hours as needed for moderate pain for up to 30 days .chronic pain. Max Daily Amount: 4 tablets HYDROcodone 2021-2021- No [id number] 1{tbl} Q6H Take 1 [facility] -acetaminop 2-01 03-[address] [facility] (Bioincept) 00:00: 00:00 mouth [facility] 10-325 mg 00 :00 every 6 l per tablet (six) hours as needed for moderate pain for up to 30 days .chronic pain. Max Daily Amount: 4 tablets [place]DROcodone 2021- No [id number] 1{tbl} Q6H Take 1 [facility] -acetaminop 12-[address] [facility] (NORCO) 00:00: 00:00 mouth [facility] 10-325 mg 00 :00 every 6 l per tablet (six) hours as needed for moderate pain for up to 30 days .chronic pain. Max Daily Amount: 4 tablets colestipoL 2021- No 1g Q.5D TAKE 1 [facility] (COLESTID) 12-0925 TABLET (1 st 1 gram 00:00: 00:00 G TOTAL) Hospit a tablet 00 :00 BY MOUTH 2 l (TWO) TIMES A DAY. FOR DIARRHEA colestipoL 2021-0 2021- No 1g Q.5D TAKE 1 [facility] (COLESTID) 12-0925 TABLET (1 st 1 gram 00:00: 00:00 G TOTAL) Hospit a tablet 00 :00 BY MOUTH 2 l (TWO) TIMES A DAY. FOR DIARRHEA colestipoL 0 2021- No 1g Q.5D TAKE 1 [facility] (COLESTID) 12-0925 TABLET (1 st 1 gram 00:00: 00:00 G TOTAL) Hospit a tablet 00 :00 BY MOUTH 2 l (TWO) TIMES A DAY. FOR DIARRHEA potassium No TAKE 1 [facility] chloride 12-[address] (K-DUR) 20 00:00: 00:00 MOUTH 3 [facility] MEQ CR 00 :00 TIMES A l tablet DAY. potassium 2021- No TAKE 1 [facility] chloride 12-[address] (K-DUR) 20 00:00: 00:00 MOUTH 3 [facility] MEQ CR 00 :00 TIMES A l tablet DAY. potassium 2021- No TAKE 1 [facility] chloride 12-[address] (K-DUR) 20 00:00: 00:00 MOUTH 3 [facility] MEQ CR 00 :00 TIMES A l tablet DAY. topiramate Yes 25mg Take 25 mg [facility] (Topamax) 1-30 by mouth [facility] 25 MG 00:00: every tablet 00 night. topiramate 2021- No TAKE 1 [facility] (TOPAMAX) 12-[address] 25 MG 00:00: 00:00 MOUTH [facility]osp[facility] tablet 00 :00 EVERY DAY l AT NIGHT topiramate 2021- No TAKE 1 [facility] (TOPAMAX) 12-[address] 25 MG 00:00: 00:00 MOUTH [facility]osp[facility] tablet 00 :00 EVERY DAY l AT NIGHT topiramate 2021- No TAKE 1 [facility] (TOPAMAX) 12-[address] 25 MG 00:00: 00:00 MOUTH [facility]osp[facility] tablet 00 :00 EVERY DAY l AT NIGHT escitalopra 2021- No TAKE 1 [facility] (LEXAPRO) 12-[address] 5 MG tablet 00:00: 00:00 MOUTH [facility] 00 :00 EVERY DAY l escitalopra 2021- No TAKE 1 [facility] (LEXAPRO) 12-[address] 5 MG tablet 00:00: 00:00 MOUTH [facility] 00 :00 EVERY DAY l escitalopra 2021- No TAKE 1 [facility] (LEXAPRO) 12-[address] 5 MG tablet 00:00: 00:00 MOUTH [facility] 00 :00 EVERY DAY l Dexilant 60 2021- No TAKE 1 [facility] mg capsule 12-05- CAPSULE BY st 00:00: 00:00 MOUTH [facility]osp[facility] 00 :00 EVERY DAY l Dexilant 60 2021- No TAKE 1 [facility] mg capsule 12-05-[address] 00:00: 00:00 MOUTH [facility]osp[facility] 00 :00 EVERY DAY l Dexilant 60 2021- No TAKE 1 [facility] mg capsule 12-05- CAPSULE BY st 00:00: 00:00 MOUTH [facility]osp[facility] 00 :00 EVERY DAY l topiramate 2021- No TAKE 1 [facility] (TOPAMAX) 11-[address] 25 MG 00:00: 00:00 MOUTH [facility]osp[facility] tablet 00 :00 EVERY DAY l AT NIGHT topiramate 2021- No TAKE 1 [facility] (TOPAMAX) 11-[address] 25 MG 00:00: 00:00 MOUTH [facility]osp[facility] tablet 00 :00 EVERY DAY l AT NIGHT topiramate 2021- No TAKE 1 [facility] (TOPAMAX) 11-[address] 25 MG 00:00: 00:00 MOUTH [facility]osp[facility] tablet 00 :00 EVERY DAY l AT NIGHT colestipoL 2021- No 1g Q.5D Take 1 [facility] (COLESTID) 11-15 tablet (1 st 1 gram 00:00: 00:00 g total) [facility] a tablet 00 :00 by mouth 2 l (two) times a day. For diarrhea potassium 2021- 20meq Q.[id number] Take 1 [facility] chloride 11-15 [id number] tablet (20 st (K-DUR) 20 00:00: 00:00 3D mEq total) Hospita MEQ CR 00 :00 by mouth 3 l tablet (three) times a day. colestipoL 2021- No 1g Q.5D Take 1 [facility] (COLESTID) 11-15 tablet (1 st 1 gram 00:00: 00:00 g total) Hospit a tablet 00 :00 by mouth 2 l (two) times a day. For diarrhea potassium 2021- No 20meq Q.[id number] Take 1 [facility] chloride 11-15 [id number] tablet (20 st (K-DUR) 20 00:00: 00:00 3D mEq total) Hospita MEQ CR 00 :00 by mouth 3 l tablet (three) times a day. colestipoL 2021- No 1g Q.5D Take 1 [facility] (COLESTID) 11-15 tablet (1 st 1 gram 00:00: 00:00 g total) Hospit a tablet 00 :00 by mouth 2 l (two) times a day. For diarrhea potassium 2021- No 20meq Q.63625300 Take 1 [facility] chloride 11-15 [id number] tablet (20 st (K-DUR) 20 00:00: 00:00 3D mEq total) Hospita MEQ CR 00 :00 by mouth 3 l tablet (three) times a day. NaCl 0.9% Yes IV [facility] (NS) 1000 11-13 Infusion, ity o f mL + KCL 20 17:00: [place] 500 [place] m[place] 00 mL/hr, Medical CONTINUOUS Branch , Starting on [place] 11/13/21 at 1100, Until Discontinu ed, PAYAL proMETHazin 2021- No 25mg 25 mg, IV Univers e 11-13 Piggyback, ity of (PHENERGAN) 17:00: 16:16 [place]CE, 1 [place] 25 mg in 00 :00 dose, On Medical NaCl 0.9% [place] 11/13/21 Bran ch (NS) 50 mL at 1100, piggyback 50 mL KCL 2021- No 40meq 40 mEq, Univers (KLOR-CON 11-13 Oral, ity of M20) tablet 17:00: 16:15 ONCE, 1 [place] 40 mEq 00 :00 dose, On Medical [facility] 11/13/21 Branch at 1100, PAYAL amphetamine 2021- No 20mg QD Take 1 [facility] -dextroamph 11-11-[address] etamine XR 00:00: 04:59 (20 mg [facility] (Adderall 00 :00 total) by l XR) 20 MG mouth 24 hr every capsule morning for 90 days. Max Daily Amount: 20 mg amphetamine 2021- No 20mg QD Take 1 [facility] -dextroamph 11-11-[address] etamine XR 00:00: 04:59 (20 mg [facility] (Adderall 00 :00 total) by l XR) 20 MG mouth 24 hr every capsule morning for 90 days. Max Daily Amount: 20 mg amphetamine 2021-2021- No 20mg QD Take 1 [facility] -dextroamph 11-11-[address] etamine XR 00:00: 04:59 (20 mg [facility] (Adderall 00 :00 total) by l XR) 20 MG mouth 24 hr every capsule morning for 90 days. Max Daily Amount: 20 mg [place]DRO[place] 2021- [place] [id number] 1{tbl} Q6H Take 1 [facility] -acetaminop 1-12-[address] [facility] (Bioincept) 00:00: 00:00 mouth [facility] 10-325 mg 00 :00 every 6 l per tablet (six) hours as needed for moderate pain for up to 30 days .chronic pain. Max Daily Amount: 4 tablets HYDROcodone 2021- No [id number] 1{tbl} Q6H Take 1 [facility] -acetaminop 11-[address] [facility] (Bioincept) 00:00: 00:00 mouth [facility] 10-325 mg 00 :00 every 6 l per tablet (six) hours as needed for moderate pain for up to 30 days .chronic pain. Max Daily Amount: 4 tablets [place]DROcodone 2021-2021- [place] [id number] 1{tbl} Q6H Take 1 [facility] -acetaminop 11-11 tablet by [employer] (Bioincept) 00:00: 00:00 mouth [facility] 10-325 mg 00 :00 every 6 l per tablet (six) hours as needed for moderate pain for up to 30 days .chronic pain. Max Daily Amount: 4 tablets methotrexat 2020-11 Yes [facility] e PF 25 2-28 st mg/mL chemo 00:00: Hospit a syringe 00 l methotrexat 2020-11 Yes [facility] PF 25 2-28 st mg/mL chemo 00:00: Hospit a syringe 00 l methotrexat 2020-11 Yes [facility] e PF 25 2-28 st mg/mL chemo 00:00: Hospit a syringe 00 l topiramate 2020-11- No 25mg QD Take 1 [facility] (Topamax) 12-20- tablet (25 st 25 MG 00:00: 00:00 mg total) Hospit a tablet 00 :00 by mouth l nightly. topiramate 2020-11- No 25mg QD Take 1 [facility] (Topamax) 2-10 08- tablet (25 st 25 MG 00:00: 00:00 mg total) Hospit a tablet 00 :00 by mouth l nightly. HYDROcodone 2020-11- [place] [id number] 1{tbl} Q6H Take 1 [facility] -acetaminop 211-11 tablet by [employer] (Bioincept) 00:00: 00:00 mouth [facility] 10-325 mg 00 :00 every 6 l per tablet (six) hours as needed for moderate pain for up to 30 days .chronic pain. Max Daily Amount: 4 tablets HYDROcodone 2020-11- No [id number] 1{tbl} Q6H Take 1 [facility] -acetaminop 12-[address] [place] (NORCO) 00:00: 00:00 mouth [facility] 10-325 mg 00 :00 every 6 l per tablet (six) hours as needed for moderate pain for up to 30 days .chronic pain. Max Daily Amount: 4 tablets medroxyPROG 2020-11- No [id number] INJECT 1 [facility] ESTERone - 02-08 ML ([address] (DEPO-PROVE 00:00: 00:00 TOTAL) [facility] RA) 150 00 :00 INTO THE l mg/mL SHOULDER, syringe THIGH, OR injection BUTTOCKS EVERY 3 (THREE) MONTHS. medroxyPROG 2020-11- No [id number] INJECT 1 [facility] ESTERone 04 02-08 ML ([address] (DEPO-PROVE 00:00: 00:00 TOTAL) [facility] RA) 150 00 :00 INTO THE l mg/mL SHOULDER, syringe THIGH, OR injection BUTTOCKS EVERY 3 (THREE) MONTHS. medroxyPROG 2020-11 No [id number] INJECT 1 [facility] ESTERone 04 02-08 ML ([address] (DEPO-PROVE 00:00: 00:00 TOTAL) Hos melissa RA) 150 00 :00 INTO THE l mg/mL SHOULDER, syringe THIGH, OR injection BUTTOCKS EVERY 3 (THREE) MONTHS. Dexilant 60 2020-11- No Metho di mg capsule 11-09 st 00:00: 00:00 Hospita 00 :00 l Dexilant 60 2020-11- No Metho di mg capsule 11-09 00:00: 00:00 Hospita 00 :00 l Dexilant 60 2020-11- No Metho di mg capsule 11-09 00:00: 00:00 Hospita 00 :00 l escitalopra 2020-11- No 5mg QD Take 1 Met carmel zimmerman (Lexapro) 11-09 tablet (5 st 5 MG tablet 00:00: 00:00 mg total) Hospita 00 :00 by mouth l daily for 90 days. escitalopra 2020-11 No 5mg QD Take 1 Met carmel zimmerman (Lexapro) 11-09 tablet (5 st 5 MG tablet 00:00: 00:00 mg total) Hospita 00 :00 by mouth l daily for 90 days. diazePAM 2020-11 No 10mg QD Take 1 Method i (VALIUM) 10 11-08 tablet (10 s t MG tablet 00:00: 04:59 mg total) Ho [facility] 00 :00 by mouth l nightly as needed for anxiety. diazePAM 2020-11 No 10mg QD Take 1 [facility] (VALIUM) 10 11-08 10-25 tablet (10 s t MG tablet 00:00: 00:00 mg total) [facility] 00 :00 by mouth l nightly as needed for anxiety. diazePAM 2020-11 No 10mg QD Take 1 [facility] (VALIUM) 10 11-08 10-25 tablet (10 s t MG tablet 00:00: 00:00 mg total) [facility] 00 :00 by mouth l nightly as needed for anxiety. promethazin 2020-11- No [id number] 50mg Q8H Take 1 [facility]-0823 tablet (50 st (PHENERGAN) 00:00: 00:00 mg total) Hospita 50 MG 00 :00 by mouth l tablet every 8 (eight) hours as needed for nausea or vomiting. promethazin 2020-11 No [id number] 50mg Q8H Take 1 [facility]08[facility] tablet (50 st (PHENERGAN) 00:00: 00:00 mg total) Hospita 50 MG 00 :00 by mouth l tablet every 8 (eight) hours as needed for nausea or vomiting. promethazin 2020-11- No [id number] 50mg Q8H Take 1 [facility]08[facility] tablet (50 st (PHENERGAN) 00:00: 00:00 mg total) [facility]ospita 50 MG 00 :00 by mouth l tablet every 8 (eight) hours as needed for nausea or vomiting. HYDROcodone 2020-11- No [id number] 1{tbl} Q6H Take 1 [facility] -acetaminop -10-[address] [facility] (Bioincept) 00:00: 00:00 mouth [facility] 10-325 mg 00 :00 every 6 l per tablet (six) hours as needed for moderate pain for up to 30 days .chronic pain. Max Daily Amount: 4 tablets HYDROcodone 2020-11 No [id number] 1{tbl} Q6H Take 1 [facility] -acetaminop 11-[address] [facility] (Bioincept) 00:00: 00:00 mouth [facility] 10-325 mg 00 :00 every 6 l per tablet (six) hours as needed for moderate pain for up to 30 days .chronic pain. Max Daily Amount: 4 tablets amphetamine No 20mg QD Take 1 Met hodi -dextroamph - 12-[address] etamine XR 00:00: 05:59 (20 mg [facility] (Adderall 00 :00 total) by l XR) 20 MG mouth 24 hr every capsule morning for 90 days. Max Daily Amount: 20 mg amphetamine 2020- No 20mg QD Take 1 Met hodi -dextroamph - 12-[address] etamine XR 00:00: 05:59 (20 mg [facility] (Adderall 00 :00 total) by l XR) 20 MG mouth 24 hr every capsule morning for 90 days. Max Daily Amount: 20 mg HYDROcodone 2020- No [id number] 1{tbl} Q6H Take 1 [facility] -acetaminop 07-[address] [facility] (Bioincept) 00:00: 00:00 mouth [facility] 10-325 mg 00 :00 every 6 l per tablet (six) hours as needed for moderate pain for up to 30 days .chronic pain. Max Daily Amount: 4 tablets dicyclomine 2021- No TAKE 1 Met hodi (BENTYL) 20 8-27 04-[address] mg tablet 00:00: 13:18 MOUTH Hospit a 00 :39 EVERY 6 l HOURS NEEDED FOR STOMACH CRAMPING dicyclomine 2021- No TAKE 1 [facility] (BENTYL) 20 8-27 04-[address] mg tablet 00:00: 13:18 MOUTH Hospit a 00 :39 EVERY 6 l HOURS NEEDED FOR STOMACH CRAMPING dicyclomine 2021- No TAKE 1 Met hodi (BENTYL) 20 07-04-[address] mg tablet 00:00: 13:18 MOUTH Hospit a 00 :39 EVERY 6 l HOURS NEEDED FOR STOMACH CRAMPING [place]DROcodone 2020- No [id number] 1{tbl} Q6H Take 1 [facility] -acetaminop 07-02 09-[address] [facility] (NORCO) 00:00: 00:00 mouth [facility] 10-325 mg 00 :00 every 6 l per tablet (six) hours as needed for moderate pain for up to 30 days .chronic pain. Max Daily Amount: 4 tablets medroxyPROG 2021- No [id number] 150mg Q90D INJECT 1 [facility] ESTERone 7- 04-29 ML ([address] (DEPO-PROVE 00:00: 00:00 TOTAL) Hos melissa RA) 150 00 :00 INTO THE l mg/mL SHOULDER, injection THIGH, OR BUTTOCKS EVERY 3 (THREE) MONTHS. medroxyPROG 2021- No [id number] 150mg Q90D INJECT 1 [facility] ESTERone 7-29 04-29 ML ([address] (DEPO-PROVE 00:00: 00:00 TOTAL) Hos melissa RA) 150 00 :00 INTO THE l mg/mL SHOULDER, injection THIGH, OR BUTTOCKS EVERY 3 (THREE) MONTHS. medroxyPROG 2021- No [id number] 150mg Q90D INJECT 1 [facility] ESTERone 7-29 04-29 ML ([address] (DEPO-PROVE 00:00: 00:00 TOTAL) Hos melissa RA) 150 00 :00 INTO THE l mg/mL SHOULDER, injection THIGH, OR BUTTOCKS EVERY 3 (THREE) MONTHS. diazePAM 2020- No 10mg QD Take 1 Method i (VALIUM) 10 05-08 tablet (10 s t MG tablet 00:00: 00:00 mg total) Ho [facility]ita 00 :00 by mouth l nightly as needed for anxiety. amphetamine 2020- No 20mg QD Take 1 [facility] hodi -dextroamph 05-[address] etamine XR 00:00: 00:00 (20 mg [facility] (Adderall 00 :00 total) by l XR) 20 MG mouth 24 hr every capsule morning for 90 days. Max Daily Amount: 20 mg cholecalcif 2021- No [id number] Q7D Take 1 M ethodi rey, 04-[address] vitamin D3, 00:00: 22:01 (50,000 Ho spita 1,250 mcg 00 :54 Units l (50,000 total) by unit) mouth once capsule a week. cholecalcif 2021- No [id number] Q7D Take 1 M ethodi rey, 04-[address] vitamin D3, 00:00: 22:01 (50,000 Ho spita 1,250 mcg 00 :54 Units l (50,000 total) by unit) mouth once capsule a week. cholecalcif 2021- No [id number] Q7D Take 1 M ethodi rey, 04-[address] vitamin D3, 00:00: 22:01 (50,000 Ho spita 1,250 mcg 00 :54 Units l (50,000 total) by unit) mouth once capsule a week. pantoprazol 2021- No [id number] 40mg QD Take 1 [facility] e 04-09 tablet (40 st (Protonix) 00:00: 00:00 mg total) H ospita 40 MG EC 00 :00 by mouth l tablet daily. pantoprazol 2021- No [id number] 40mg QD Take 1 [facility] 04-09 tablet (40 st (Protonix) 00:00: 00:00 mg total) H [facility]spita 40 MG EC 00 :00 by mouth l tablet daily. pantoprazol 2021- No [id number] 40mg QD Take 1 [facility] 04-09 tablet (40 st (Protonix) 00:00: 00:00 mg total) H ospita 40 MG EC 00 :00 by mouth l tablet daily. predniSONE 2021- No 4 tabs po M ethodi (DELTASONE) 04-[address] 10 mg 00:00: 00:00 days, 3 Hospita tablet 00 :00 tabs po l daily x 2 days, 2 tabs po daily x 2 days, 1 tab po daily x 2 days, then stop predniSONE 2021- No 4 tabs po M ethodi (DELTASONE) 04-[address] 10 mg 00:00: 00:00 days, 3 Hospita tablet 00 :00 tabs po l daily x 2 days, 2 tabs po daily x 2 days, 1 tab po daily x 2 days, then stop predniSONE 2021- No 4 tabs po M ethodi (DELTASONE) 04-[address] 10 mg 00:00: 00:00 days, 3 Hospita tablet 00 :00 tabs po l daily x 2 days, 2 tabs po daily x 2 days, 1 tab po daily x 2 days, then stop amLODIPine 2021- No [id number] TAKE 1 [facility] (NORVASC) 03-04 05-[address] 10 mg 00:00: 00:00 MOUTH Hospita tablet 00 :00 EVERY DAY l FOR BLOOD PRESSURE amLODIPine 2021- No [id number] TAKE 1 [facility] (NORVASC) 4 05-[address] 10 mg 00:00: 00:00 MOUTH [facility]ospita tablet 00 :00 EVERY DAY l FOR BLOOD PRESSURE amLODIPine 2021- No [id number] TAKE 1 [facility] (NORVASC) 03-04 05-[address] 10 mg 00:00: 00:00 MOUTH Hospita tablet 00 :00 EVERY DAY l FOR BLOOD PRESSURE Mucinex DM Yes Rut 1 tablet Memoria 4-22 Vo as needed l 02:46: [place] 16 Amoxicillin Yes Rut 1 tablet Memoria 4-22 Vo l 02:46: Ezra 16 Mucinex DM Yes Rut 1 tablet Memoria 4-22 Vo as needed l 02:46: [place] 16 Amoxicillin Yes Rut 1 tablet Memoria 4-22 Vo l 02:46: Ezra 16 Mucinex DM Yes Rut 1 tablet Memoria 4-22 Vo as needed l 02:46: Ezra 16 Amoxicillin 2021-0 Yes Rut 1 tablet Memoria 4-22 Vo l 02:46: Ez[place] 16 Mucinex DM 0 Yes Rut 1 tablet Memoria 4-22 Vo as needed l 02:46: [place] 16 Amoxicillin 0 Yes Rut 1 tablet Memoria 4-22 Vo l 02:46: Ezra 16 Mucinex DM 0 Yes Rut 1 tablet Memoria 4-22 Vo as needed l 02:46: Ezra 16 Amoxicillin 2020-0 Yes Rut 1 tablet Memoria 4-22 Vo l 02:46: Ezra 16 Mucinex DM Yes Rut 1 tablet Memoria 4-22 Vo as needed l 02:46: Ezra 16 Amoxicillin 0 Yes Rut 1 tablet Memoria 4-22 Vo l 02:46: Ezra 16 dextrometho Yes 1 tablet Me thodi rphan-guaif [address] enesin 00:00: Hospita (Mucinex 00 l DM) 30-600 mg tablet extended release 12 hr RiTUXimab, Yes DOCTOR Monica Martines, 02-[address] (RITUXAN) 00:00: ADMINISTER [facility] spita 10 mg/mL 00 RITUXAN l chemo 1000MG injection THROUGH IV INFUSION ON WEEK 0, WEEK 2, THEN EVERY 24 WEEKS IN OFFICE dextrometho Yes 1 tablet Me thodi rphan-guaif 02-[address] enesin 00:00: Hospita (Mucinex 00 l DM) 30-600 mg tablet extended release 12 hr RiTUXimab, Yes DOCTOR Monica Martines, 02-[address] (RITUXAN) 00:00: ADMINISTER [facility] 10 mg/mL 00 RITUXAN l chemo 1000MG injection THROUGH IV INFUSION ON WEEK 0, WEEK 2, THEN EVERY 24 WEEKS IN OFFICE dextrometho Yes 1 tablet Me thodi rphan-guaif 02-[address] enesin 00:00: Hospita (Mucinex 00 l DM) 30-600 mg tablet extended release 12 hr RiTUXimab, Yes DOCTOR Monica Martines, 02-[address] (RITUXAN) 00:00: ADMINISTER [facility] 10 mg/mL 00 RITUXAN l chemo 1000MG injection THROUGH IV INFUSION ON WEEK 0, WEEK 2, THEN EVERY 24 WEEKS IN OFFICE ubrogepant 2021- No 50mg Q24H Take 50 mg [facility] (Ubrelvy) 02-12-[address] 50 mg 00:00: 00:00 daily as Hospita tablet 00 :00 needed l (migraine headache). ubrogepant 2021- No 50mg Q24H Take 50 mg [facility] (Ubrelvy) 02-12-[address] 50 mg 00:00: 00:00 daily as Hospita tablet 00 :00 needed l (migraine headache). ubrogepant 2021- No 50mg Q24H Take 50 mg [facility] (Ubrelvy) 02-12- by mouth st 50 mg 00:00: 00:00 daily as Hospita tablet 00 :00 needed l (migraine headache). BD Yes [facility] Tuberculin 3-30 st Syringe 1 00:00: Hospita mL 27 x 00 l 1/2" syringe methotrexat Yes Method i e 25 mg/mL 3-30 st syringe 00:00: Hospita 00 l BD 2020-0 Yes [facility] Tuberculin 3-30 st Syringe 1 00:00: Hospita mL 27 x 00 l 1/2" syringe methotrexat 0 Yes Method i e 25 mg/mL 3-30 st syringe 00:00: Hospita 00 l BD 0 Yes [facility] Tuberculin 3-30 st Syringe 1 00:00: Hospita mL 27 x 00 l 1/2" syringe methotrexat 0 Yes Method i e 25 mg/mL 3-30 st syringe 00:00: Hospita 00 l promethazin 2020- No [id number] 50mg Q8H TAKE 1 [facility] e 11-26 TABLET (50 st (PHENERGAN) 00:00: 00:00 MG TOTAL) Hospita 50 MG 00 :00 BY MOUTH l tablet EVERY 8 (EIGHT) HOURS NEEDED FOR NAUSEA OR VOMITING. cyanocobala 2019-11 Yes ADMINISTER [facility] min 1,000 1-07 1 ML(1000 st mcg/mL 00:00: MCG) UNDER Hospi ta injection 00 THE SKIN l EVERY 7 DAYS insulin 2019-11 Yes Use weekly [facility] syringe-nee 1-[address] dle U-100 00:00: directed [facility] (Insulin 00 with b12 l Syringe) 1 mL 29 gauge x 1/2" syringe cyanocobala 2019-11 Yes ADMINISTER [facility] min 1,000 1-07 1 ML(1000 st mcg/mL 00:00: MCG) UNDER Hospi ta injection 00 THE SKIN l EVERY 7 DAYS insulin 2019-11 Yes Use weekly [facility] syringe-nee 1-[address] dle U-100 00:00: directed [facility] (Insulin 00 with b12 l Syringe) 1 mL 29 gauge x 1/2" syringe cyanocobala 2019-11 Yes ADMINISTER [facility] min 1,000 1-07 1 ML(1000 st mcg/mL 00:00: MCG) UNDER Hospi ta injection 00 THE SKIN l EVERY 7 DAYS insulin 2019-11 Yes Use weekly [facility] syringe-nee 1-[address] dle U-100 00:00: directed [facility] (Insulin 00 with b12 l Syringe) 1 mL 29 gauge x 1/2" syringe potassium 2019-11 No 25meq QD Take 1 [facility] bicarbonate 0-08 02-01 tablet (25 s t (K-LYTE) 25 00:00: 00:00 mEq total) Hospita MEQ 00 :00 by mouth l disintegrat daily. ing tablet potassium 2019-11 25meq QD Take 1 [facility] bicarbonate 0-08 02-01 tablet (25 s t (K-LYTE) 25 00:00: 00:00 mEq total) Hospita MEQ 00 :00 by mouth l disintegrat daily. ing tablet potassium 2019-11 No 25meq QD Take 1 [facility] bicarbonate 0-08 02-01 tablet (25 s t (K-LYTE) 25 00:00: 00:00 mEq total) Hospita MEQ 00 :00 by mouth l disintegrat daily. ing tablet CellCept 2020-0 [address] 1 tablet Memoria 9-28 Vo l 00:00: [place] Folic Acid 2020-0 Yes Rut 1 tablet Memoria 9-28 Vo l 00:00: Ezra 00 CellCept 2020-0 Yes Rut 1 tablet Memoria 9-28 Vo l 00:00: [place] Folic Acid 2020-0 Yes Rut 1 tablet Memoria 9-28 Vo l 00:00: CellCept 2020-0 Yes Rut 1 tablet Memoria 9-28 Vo l 00:00: Folic Acid 2020-0 Yes Rut 1 tablet Memoria 9-28 Vo l 00:00: CellCept 2020-0 Yes Rut 1 tablet Memoria 9-28 Vo l 00:00: Folic Acid 2020-0 Yes Rut 1 tablet Memoria 9-28 Vo l 00:00: CellCept 2020-0 Yes Rut 1 tablet Memoria 9-28 Vo l 00:00: Folic Acid 2020-0 Yes Rut 1 tablet Memoria 9-28 Vo l 00:00: CellCept 2020-0 Yes Rut 1 tablet Memoria 9-28 Vo l 00:00: Folic Acid 2020-0 Yes Rut 1 tablet Memoria 9-28 Vo l 00:00: Amlodipine 2020-0 Yes Rut 1 tablet [facility] Besylate 9-16 Vo l 02:45: Amlodipine 2020-0 Yes Rut 1 tablet [facility] Besylate 9-16 Vo l 02:45: Amlodipine 2020-0 Yes Rut 1 tablet [facility] Besylate 9-16 Vo l 02:45: Amlodipine 2020-0 Yes Rut 1 tablet [facility] Besylate 9-16 Vo l 02:45: Amlodipine 2020-0 Yes Rut 1 tablet [facility] Besylate 9-16 Vo l 02:45: Amlodipine 2020-0 Yes Rut 1 tablet [facility] Besylate 9-16 Vo l 02:45: CellCept 2020-0 Yes Rut 1 tablet Memoria 8-18 Vo l 00:00: Folic Acid 2020-0 Yes Rut 1 tablet Memoria 8-18 Vo l 00:00: CellCept 2020-0 Yes Rut 1 tablet Memoria 8-18 Vo l 00:00: Folic Acid 2020-0 Yes Rut 1 tablet Memoria 8-18 Vo l 00:00: CellCept 2020-0 Yes Rut 1 tablet Memoria 8-18 Vo l 00:00: Folic Acid 2020-0 Yes Rut 1 tablet Memoria 8-18 Vo l 00:00: CellCept 2020-0 Yes Rut 1 tablet Memoria 8-18 Vo l 00:00: Folic Acid 2020-0 Yes Rut 1 tablet Memoria 8-18 Vo l 00:00: CellCept 2020-0 Yes Rut 1 tablet Memoria 8-18 Vo l 00:00: Folic Acid 2020-0 Yes Rut 1 tablet Memoria 8-18 Vo l 00:00: CellCept 2020-0 Yes Rut 1 tablet Memoria 8-18 Vo l 00:00: Folic Acid 2020-0 Yes Rut 1 tablet [facility]oria 8-18 Vo l 00:00: lidocaine 2020-0 Yes 5 ML BY Metho di HCL 8-[address] (lidocaine) 00:00: MEMBRANE Ho spita 2 % 00 ROUTE l solution EVERY 3 (THREE) HOURS. lidocaine 2020-0 Yes 5 ML BY Metho di HCL 8-[address] (lidocaine) 00:00: MEMBRANE Ho spita 2 % 00 ROUTE l solution EVERY 3 (THREE) HOURS. lidocaine 2020-0 Yes 5 ML BY Metho di HCL 8-[address] (lidocaine) 00:00: MEMBRANE Ho spita 2 % 00 ROUTE l solution EVERY 3 (THREE) HOURS. ketorolac 2019- No 15mg 15 mg, Unive rs (TORADOL) 06-12 Slow IV ity of injection 17:00: 16:59 Push, Q6H, [place] 15 mg 00 :00 4 doses, Medical First dose Branch on Wed06/12/20 at 1200, Last dose on Wed06/13/20 at 0600, Routine
science faculty member approving Restricted medication : COREY MORALES proMETHazin 2019- 2020- No 25mg 25 mg, IV Univers e 06-12 Piggyback, ity of (PHENERGAN) 14:30: 13:31 ONCE, 1 [place] 25 mg in 00 :00 dose, Wed Medica l NaCl 0.9% 06/12/20 at Branc h (NS) 50 mL 0930, 50 piggyback mL NaCl 0.9% 2020-0 2020- No 1000mL at 999 Uni vers (NS) bolus 06-12 08-06 mL/hr, ity of infusion 14:15: 02:14 1,000 mL, Mike as 1,000 mL 00 :00 IV Medical Piggyback, Branch ONCE, 1 dose, 06/12/20 at 0915, STAT dexamethaso 2019-0 2020- No 10mg 10 mg, IV Univers ne 06-12 Push, ity of (DECADRON 14:15: 13:27 ONCE, 1 [place] PHOSPHATE) 00 :00 dose, Wed Medi [place] injection 06/12/20 at Branc h 10 mg 0915, STAT iohexol 2020-0 2020- No 75mL 75 mL, Univers (OMNIPAQUE 06-12 Intravenou it y of 350 BULK-75 13:55: 13:55 s, ONCE, 1 [place] mL) 00 :00 dose, Wed Medical injection 06/12/20 at Branc h 75 mL 0915, Routine methylPREDN 2020-0 Yes [id number] Take by Univers ISolone 05 mouth ity of (MEDROL, 00:00: SEE-INSTRU Mike as CHAD,) 4 mg 00 CTIONS. Medica l tablets follow Branch package directions methylPREDN 2020-0 Yes [id number] Take by Univers ISolone -05 mouth ity of (MEDROL, 00:00: SEE-INSTRU Mike as CHAD,) 4 mg 00 CTIONS. Medica l tablets follow Branch package directions methylPREDN 2020-0 Yes [id number] Take by Univers ISolone 05 mouth ity of (MEDROL, 00:00: SEE-INSTRU Mike as CHAD,) 4 mg 00 CTIONS. Medica l tablets follow Branch package directions methylPREDN 2020-0 Yes [id number] Take by Univers ISolone -05 mouth ity of (MEDROL, 00:00: SEE-INSTRU Mike as CHAD,) 4 mg 00 CTIONS. Medica l tablets follow Branch package directions methylPREDN 2020-0 Yes [id number] Take by Univers ISolone 8-05 mouth ity of (MEDROL, 00:00: SEE-INSTRU Mike as CHAD,) 4 mg 00 CTIONS. Medica l tablets follow Branch package directions methylPREDN 2020-0 Yes [id number] Take by Univers ISolone 8-05 mouth ity of (MEDROL, 00:00: SEE-INSTRU Mike as CHAD,) 4 mg 00 CTIONS. Medica l tablets follow Branch package directions methylPREDN 2020-0 Yes [id number] [facility] ([facility]ROL, 00:00: SEE-INSTRU Mike as CHAD,) 4 mg 00 CTIONS. Medica l tablets follow Branch package directions Diazepam 2020-0 Yes Rut 1 tablet Memoria 7-03 Vo as needed l 02:45: Ezra 19 Duloxetine 2020-0 Yes Rut 1 capsule [facility]oria HCl 7-03 Vo l 02:45: Ezra 19 Dexilant 2020-0 Yes Rut 1 capsule Memoria 7-03 Vo l 02:45: [place] 19 Topamax 2020-0 Yes Rut 1 tablet Memoria 7-03 Vo l 02:45: [place] 19 Laxative 2020-0 Yes Rut not Mem oria 7-03 Vo defined l 02:45: [place] 19 Diazepam 2020-0 Yes Rut 1 tablet Memoria 7-03 Vo as needed l 02:45: [place] 19 Duloxetine 2020-0 Yes Rut 1 capsule [facility]oria HCl 7-03 Vo l 02:45: Ezra 19 Dexilant 2020-0 Yes Rut 1 capsule Memoria 7-03 Vo l 02:45: Ezra 19 Topamax 2020-0 Yes Rut 1 tablet Memoria 7-03 Vo l 02:45: [place] 19 Laxative 2020-0 Yes Rut not Mem oria 7-03 Vo defined l 02:45: [place] 19 Diazepam 2020-0 Yes Rut 1 tablet Memoria 7-03 Vo as needed l 02:45: Ezra 19 Duloxetine 2020-0 Yes Rut 1 capsule [facility]oria HCl 7-03 Vo l 02:45: [place] 19 Dexilant 2020-0 Yes Rut 1 capsule Memoria 7-03 Vo l 02:45: Ezra 19 Topamax 2020-0 Yes Rut 1 tablet Memoria 7-03 Vo l 02:45: Ezra 19 Laxative 2020-0 Yes Rut not Mem oria 7-03 Vo defined l 02:45: [place] 19 Diazepam 2020-0 Yes Rut 1 tablet Memoria 7-03 Vo as needed l 02:45: [place] 19 Duloxetine 2020-0 Yes Rut 1 capsule [facility]oria HCl 7-03 Vo l 02:45: [place] 19 Dexilant 2020-0 Yes Rut 1 capsule Memoria 7-03 Vo l 02:45: Ezra 19 Topamax 2020-0 Yes Rut 1 tablet Memoria 7-03 Vo l 02:45: Ezra 19 Laxative 2020-0 Yes Rut not Mem oria 7-03 Vo defined l 02:45: [place] 19 Diazepam 2020-0 Yes Rut 1 tablet Memoria 7-03 Vo as needed l 02:45: [place] 19 Duloxetine 2020-0 Yes Rut 1 capsule [facility]oria HCl 7-03 Vo l 02:45: Ezra 19 Dexilant 2020-0 Yes Rut 1 capsule Memoria 7-03 Vo l 02:45: [place] 19 Topamax 2020-0 Yes Rut 1 tablet Memoria 7-03 Vo l 02:45: Ezra 19 Laxative 2020-0 Yes Rut not Mem oria 7-03 Vo defined l 02:45: [place] 19 Diazepam 2020-0 Yes Rut 1 tablet Memoria 7-03 Vo as needed l 02:45: [place] 19 Duloxetine 2020-0 Yes Rut 1 capsule [facility] HCl 7-03 Vo l 02:45: Ezra Dexilant 2020-0 Yes Rut 1 capsule Memoria 7-03 Vo l 02:45: [place] 19 Topamax 2020-0 Yes Rut 1 tablet Memoria 7-03 Vo l 02:45: Ezra 19 Laxative 2020-0 Yes Rut not Mem oria 7-03 Vo defined l 02:45: [place] 19 dicyclomine 2020-0 Yes 20mg Take 20 mg Univers (BENTYL) 20 6-15 by mouth 4 it y of mg tablet 14:23: (four) [place] 13 times Medical daily. Branch bumetanide 2019-0 Yes 1mg Take 1 mg [facility] (BUMEX) 1 6-15 by mouth ity of mg tablet 14:23: daily. [place] [address] Medical Branch Bisacodyl 2019-0 Yes Take by Unive rs (CORRECTOL) 6-15 mouth 2 ity o f 5 mg Tab 14:23: (two) [place] 13 times Medical daily. Branch dicyclomine 2020-0 Yes 20mg Take 20 mg Univers (BENTYL) 20 6-15 by mouth 4 it y of mg tablet 14:23: (four) [place] 13 times Medical daily. Branch bumetanide 2020-0 Yes 1mg Take 1 mg [facility] (BUMEX) 1 6-15 by mouth ity of mg tablet 14:23: daily. [place] 13 Medical Branch Bisacodyl 2020-0 Yes Take by Unive rs (CORRECTOL) 6-15 mouth 2 ity o f 5 mg Tab 14:23: (two) [place] 13 times Medical daily. Branch dicyclomine 2020-0 Yes 20mg Take 20 mg Univers (BENTYL) 20 6-15 by mouth 4 it y of mg tablet 14:23: (four) [place] 13 times Medical daily. Branch bumetanide 2020-0 Yes 1mg Take 1 mg [facility] (BUMEX) 1 6-15 by mouth ity of mg tablet 14:23: daily. [place] [address] Medical Branch Bisacodyl 2020-0 Yes Take by Unive rs (CORRECTOL) 6-15 mouth 2 ity o f 5 mg Tab 14:23: (two) [place] 13 times Medical daily. Branch dicyclomine 2020-0 Yes 20mg Take 20 mg Univers (BENTYL) 20 6-15 by mouth 4 it y of mg tablet 14:23: (four) [place] 13 times Medical daily. Branch bumetanide 2020-0 Yes 1mg Take 1 mg [facility] (BUMEX) 1 6-15 by mouth ity of mg tablet 14:23: daily. [place] [address] Medical Branch Bisacodyl 2020-0 Yes Take by Unive rs (CORRECTOL) 6-15 mouth 2 ity o f 5 mg Tab 14:23: (two) [place] 13 times Medical daily. Branch dicyclomine 2020-0 Yes 20mg Take 20 mg Univers (BENTYL) 20 6-15 by mouth 4 it y of mg tablet 14:23: (four) [place] 13 times Medical daily. Branch bumetanide 2020-0 Yes 1mg Take 1 mg [facility] (BUMEX) 1 6-15 by mouth ity of mg tablet 14:23: daily. [place] 13 Medical Branch Bisacodyl 2020-0 Yes Take by Unive rs (CORRECTOL) 6-15 mouth 2 ity o f 5 mg Tab 14:23: (two) [place] 13 times Medical daily. Branch Dextrometho 2020-0 Yes Take by Uni vers rphan-Guaif 6-15 mouth. ity of enesin 14:13: Indication [place] (MUCINEX 39 s: 2tabs Medical DM) once a Branch 60-1,200 mg week tablet folic acid 2020-0 Yes 400ug Take 400 [facility] (FOLVITE) 6-15 mcg by ity of 800 mcg 14:13: mouth [place] tablet 39 daily. Medical Indication Branch s: 2caps VITAMIN A 2020-0 Yes 8000[iU Take 8,000 Univers ORAL 6-15 ] Int'l ity of 14:13: Units by [place] 39 mouth Medical daily. Branch amLODIPine 2020-0 Yes 5mg Take 5 mg [facility] (NORVASC) 5 6-15 by mouth ity of mg tablet 14:13: daily. [place] 39 Medical Branch diazepam 2020-0 Yes 10mg Take 10 mg Uni vers (VALIUM) 10 6-15 by mouth ity of mg tablet 14:13: once now. [place] 39 Medical Branch proMETHazin 2020-0 Yes 25mg Take 25 mg Univers e 6-15 by mouth ity of (PHENERGAN) 14:13: every 4 Mike as 25 mg 39 (four) Medical tablet hours as Branch needed for Nausea and Vomiting (N/V). HYDROcodone 2020-0 Yes 1{tbl} Take 1 Tab Univers -acetaminop 6-15 by mouth ity of hen (NORCO) 14:13: every 6 Mike as 10-325 mg 39 (six) Medical tablet hours as Branch needed for Pain (scale 1-3). ASPIRIN/DARI 2020-0 Yes Take by Uni vers TAMINOPHEN/ 6-15 mouth ity of CAFFEINE 14:13: daily. [place] (EXCEDRIN 39 Indication Medi [facility] MIGRAINE s: as Branch ORAL) needed methotrexat 2020-0 Yes inject Univ ers e, PF, 6-15 under the ity of (OTREXUP, 14:13: skin [place] PF,) 25 39 weekly. Medical mg/0.4 mL Branch AtIn Dextrometho 2020-0 Yes Take by Uni vers rphan-Guaif 6-15 mouth. ity of enesin 14:13: Indication [place] (MUCINEX 39 s: 2tabs Medical DM) once a Branch 60-1,200 mg week tablet folic acid 2020-0 Yes 400ug Take 400 [facility] (FOLVITE) 6-15 mcg by ity of 800 mcg 14:13: mouth [place] tablet 39 daily. Medical Indication Branch s: 2caps VITAMIN A 2020-0 Yes 8000[iU Take 8,000 Univers ORAL 6-15 ] Int'l ity of 14:13: Units by [place] 39 mouth Medical daily. Branch amLODIPine 2020-0 Yes 5mg Take 5 mg [facility] (NORVASC) 5 6-15 by mouth ity of mg tablet 14:13: daily. [place] 39 Medical Branch diazepam 2020-0 Yes 10mg Take 10 mg Uni vers (VALIUM) 10 6-15 by mouth ity of mg tablet 14:13: once now. [place] as 39 Medical Branch proMETHazin 2020-0 Yes 25mg Take 25 mg Univers e 6-15 by mouth ity of (PHENERGAN) 14:13: every 4 Mike as 25 mg 39 (four) Medical tablet hours as Branch needed for Nausea and Vomiting (N/V). HYDROcodone 2020-0 Yes 1{tbl} Take 1 Tab Univers -acetaminop 6-15 by mouth ity of hen (NORCO) 14:13: every 6 Mike as 10-325 mg 39 (six) Medical tablet hours as Branch needed for Pain (scale 1-3). ASPIRIN/DARI 2020-0 Yes Take by Uni vers TAMINOPHEN/ 6-15 mouth ity of CAFFEINE 14:13: daily. [place] (EXCEDRIN 39 Indication Medi [facility] MIGRAINE s: as Branch ORAL) needed methotrexat 2020-0 Yes inject Univ ers e, PF, 6-15 under the ity of (OTREXUP, 14:13: skin [place] PF,) 25 39 weekly. Medical mg/0.4 mL Branch AtIn Dextrometho 2020-0 Yes Take by Uni vers rphan-Guaif 6-15 mouth. ity of enesin 14:13: Indication [place] (MUCINEX 39 s: 2tabs Medical DM) once a Branch 60-1,200 mg week tablet folic acid 2020-0 Yes 400ug Take 400 [facility] (FOLVITE) 6-15 mcg by ity of 800 mcg 14:13: mouth [place] tablet 39 daily. Medical Indication Branch s: 2caps VITAMIN A 2020-0 Yes 8000[iU Take 8,000 Univers ORAL 6-15 ] Int'l ity of 14:13: Units by [place] [address] mouth Medical daily. Branch amLODIPine 2020-0 Yes 5mg Take 5 mg [facility] (NORVASC) 5 6-15 by mouth ity of mg tablet 14:13: daily. [place] [address] Medical Branch diazepam 2020-0 Yes 10mg Take 10 mg Uni vers (VALIUM) 10 6-15 by mouth ity of mg tablet 14:13: once now. [place] as 39 Medical Branch proMETHazin 2020-0 Yes 25mg Take 25 mg Univers e 6-15 by mouth ity of (PHENERGAN) 14:13: every 4 Mike as 25 mg 39 (four) Medical tablet hours as Branch needed for Nausea and Vomiting (N/V). HYDROcodone 2020-0 Yes 1{tbl} Take 1 Tab Univers -acetaminop 6-15 by mouth ity of hen (NORCO) 14:13: every 6 Mike as 10-325 mg 39 (six) Medical tablet hours as Branch needed for Pain (scale 1-3). ASPIRIN/DARI 2020-0 Yes Take by Uni vers TAMINOPHEN/ 6-15 mouth ity of CAFFEINE 14:13: daily. [place] (EXCEDRIN 39 Indication Medi [facility] MIGRAINE s: as Branch ORAL) needed methotrexat 2020-0 Yes inject Univ ers e, PF, 6-15 under the ity of (OTREXUP, 14:13: skin [place] PF,) 25 39 weekly. Medical mg/0.4 mL Branch AtIn Dextrometho 2020-0 Yes Take by Uni vers rphan-Guaif 6-15 mouth. ity of enesin 14:13: Indication [place] (MUCINEX 39 s: 2tabs Medical DM) once a Branch 60-1,200 mg week tablet folic acid 2020-0 Yes 400ug Take 400 [place] (FOLVITE) 6-15 mcg by ity of 800 mcg 14:13: mouth [place] tablet 39 daily. Medical Indication Branch s: 2caps VITAMIN A 2020-0 Yes 8000[iU Take 8,000 Univers ORAL 6-15 ] Int'l ity of 14:13: Units by [place] [id number] mouth Medical daily. Branch amLODIPine 2020-0 Yes 5mg Take 5 mg [place] (NORVASC) 5 6-15 by mouth ity of mg tablet 14:13: daily. [place] [id number] Medical Branch diazepam 2020-0 Yes 10mg Take 10 mg [facility] vers (VALIUM) 10 6-15 by mouth ity of mg tablet 14:13: once now. [place] 39 [facility] Branch proMETHazin 2020-0 Yes 25mg Take 25 mg [facility] e 6-15 by mouth ity of (PHENERGAN) 14:13: every 4 [facility] as 25 mg 39 (four) Medical tablet hours as Branch needed for Nausea and Vomiting (N/V). HYDROcodone 2020-0 Yes 1{tbl} Take 1 Tab [facility] -acetaminop 6-15 by mouth ity of hen (NORCO) 14:13: every 6 [facility] as 10-325 mg 39 (six) Medical tablet hours as Branch needed for Pain (scale 1-3). ASPIRIN/DARI 2020-0 Yes Take by [facility] vers TAMINOPHEN/ 6-15 mouth ity of CAFFEINE 14:13: daily. [place] (EXCEDRIN 39 Indication Medi [facility] MIGRAINE s: as Branch ORAL) needed methotrexat 2020-0 Yes inject Univ ers e, PF, 6-15 under the ity of (OTREXUP, 14:13: skin [place] PF,) 25 39 weekly. Medical mg/0.4 mL Branch AtIn Dextrometho 2020-0 Yes Take by [facility] vers rphan-Guaif 6-15 mouth. ity of enesin 14:13: Indication [place] (MUCINEX 39 s: 2tabs Medical DM) once a Branch 60-1,200 mg week tablet folic acid 2020-0 Yes 400ug Take 400 [facility] (FOLVITE) 6-15 mcg by ity of 800 mcg 14:13: mouth [place] tablet 39 daily. Medical Indication Branch s: 2caps VITAMIN A 2020-0 Yes 8000[iU Take 8,000 [facility] ORAL 6-15 ] Int'l ity of 14:13: Units by [place] 39 mouth Medical daily. Branch amLODIPine 2020-0 Yes 5mg Take 5 mg [facility] (NORVASC) 5 6-15 by mouth ity of mg tablet 14:13: daily. [place] 39 Medical Branch diazepam 2020-0 Yes 10mg Take 10 mg [facility] (VALIUM) 10 6-15 by mouth ity of mg tablet 14:13: once now. [place] [facility] 39 [facility] Branch proMETHazin 2020-0 Yes 25mg Take 25 mg [facility] e 6-15 by mouth ity of (PHENERGAN) 14:13: every 4 [facility] as 25 mg 39 (four) Medical tablet hours as Branch needed for Nausea and Vomiting (N/V). HYDROcodone 2020-0 Yes 1{tbl} Take 1 Tab [facility] -acetaminop 6-15 by mouth ity of hen (NORCO) 14:13: every 6 [facility] as 10-325 mg 39 (six) Medical tablet hours as Branch needed for Pain (scale 1-3). ASPIRIN/DARI 2020-0 Yes Take by [facility] TAMINOPHEN/ 6-15 mouth ity of CAFFEINE 14:13: daily. [place] (EXCEDRIN 39 Indication [facility]i [facility] MIGRAINE s: as Branch ORAL) needed methotrexat 2020-0 Yes inject [facility] ers e, PF, 6-15 under the ity of (OTREXUP, 14:13: skin [place] PF,) 25 39 weekly. Medical mg/0.4 mL Branch AtIn dicyclomine 2020-0 Yes 20mg Take 20 mg [facility] (BENTYL) 20 6-15 by mouth 4 it y of mg tablet 09:23: (four) [place] 13 times Medical daily. Branch bumetanide 2020-0 Yes 1mg Take 1 mg [facility] (BUMEX) 1 6-15 by mouth ity of mg tablet 09:23: daily. [place] 13 Medical Branch Bisacodyl 2020-0 Yes Take by Un[facility] rs (CORRECTOL) 6-15 mouth 2 ity o f 5 mg Tab 09:23: (two) [place] 13 times Medical daily. Branch dicyclomine 2020-0 Yes 20mg Take 20 mg [facility] (BENTYL) 20 6-15 by mouth 4 it y of mg tablet 09:23: (four) [place] 13 times Medical daily. Branch bumetanide 2020-0 Yes 1mg Take 1 mg [facility] (BUMEX) 1 6-15 by mouth ity of mg tablet 09:23: daily. [place] 13 Medical Branch Bisacodyl 2020-0 Yes Take by [facility] (CORRECTOL) 6-15 mouth 2 ity o f 5 mg Tab 09:23: (two) [place] 13 times Medical daily. Branch dicyclomine 2020-0 Yes 20mg Take 20 mg [facility] (BENTYL) 20 6-15 by mouth 4 it y of mg tablet 09:23: (four) [place] 13 times Medical daily. Branch bumetanide 2020-0 Yes 1mg Take 1 mg [facility] (BUMEX) 1 6-15 by mouth ity of mg tablet 09:23: daily. [place] 13 Medical Branch Bisacodyl 2020-0 Yes Take by Un[facility] (CORRECTOL) 6-15 mouth 2 ity o f 5 mg Tab 09:23: (two) [place] 13 times Medical daily. Branch dicyclomine 2020-0 Yes 20mg Take 20 mg [facility] (BENTYL) 20 6-15 by mouth 4 it y of mg tablet 09:23: (four) [place] 13 times Medical daily. Branch bumetanide 2020-0 Yes 1mg Take 1 mg [facility] (BUMEX) 1 6-15 by mouth ity of mg tablet 09:23: daily. [place] 13 Medical Branch Bisacodyl 2020-0 Yes Take by Un[facility] rs (CORRECTOL) 6-15 mouth 2 ity o f 5 mg Tab 09:23: (two) [place] 13 times Medical daily. Branch dicyclomine 2020-0 Yes 20mg Take 20 mg [facility] (BENTYL) 20 6-15 by mouth 4 it y of mg tablet 09:23: (four) [place] 13 times Medical daily. Branch bumetanide 2020-0 Yes 1mg Take 1 mg [facility] (BUMEX) 1 6-15 by mouth ity of mg tablet 09:23: daily. [place] [address] Medical Branch Bisacodyl 2020-0 Yes Take by Un[facility] rs (CORRECTOL) 6-15 mouth 2 ity o f 5 mg Tab 09:23: (two) [place] 13 times Medical daily. Branch dicyclomine 2020-0 Yes 20mg Take 20 mg [facility] (BENTYL) 20 6-15 by mouth 4 it y of mg tablet 09:23: (four) [place] 13 times Medical daily. Branch bumetanide 2020-0 Yes 1mg Take 1 mg [facility] (BUMEX) 1 6-15 by mouth ity of mg tablet 09:23: daily. [place] 13 Medical Branch Bisacodyl 2020-0 Yes Take by Un[facility] rs (CORRECTOL) 6-15 mouth 2 ity o f 5 mg Tab 09:23: (two) [place] 13 times Medical daily. Branch methotrexat 2020-0 Yes inject [facility] ers e, PF, 6-15 under the ity of (OTREXUP, 09:13: skin [place] PF,) 25 39 weekly. Medical mg/0.4 mL Branch AtIn Dextrometho 2020-0 Yes Take by [facility] vers rphan-Guaif 6-15 mouth. ity of enesin 09:13: Indication [place] (MUCINEX 39 s: 2tabs Medical DM) once a Branch 60-1,200 mg week tablet folic acid 2020-0 Yes 400ug Take 400 [facility] (FOLVITE) 6-15 mcg by ity of 800 mcg 09:13: mouth [place] tablet 39 daily. Medical Indication Branch s: 2caps VITAMIN A 2020-0 Yes 8000[iU Take 8,000 [facility] ORAL 6-15 ] Int'l ity of 09:13: Units by [place] 39 mouth Medical daily. Branch amLODIPine 2020-0 Yes 5mg Take 5 mg [facility] (NORVASC) 5 6-15 by mouth ity of mg tablet 09:13: daily. [place] 39 Medical Branch diazepam 2020-0 Yes 10mg Take 10 mg [facility] (VALIUM) 10 6-15 by mouth ity of mg tablet 09:13: once now. [place] 39 [facility] proMETHazin 2020-0 Yes 25mg Take 25 mg [facility] e 6-15 by mouth ity of (PHENERGAN) 09:13: every 4 [place] as 25 mg 39 (four) Medical tablet hours as Branch needed for Nausea and Vomiting (N/V). HYDROcodone 2020-0 Yes 1{tbl} Take 1 Tab [facility] -acetaminop 6-15 by mouth ity of hen (NORCO) 09:13: every 6 [facility] as 10-325 mg 39 (six) Medical tablet hours as Branch needed for Pain (scale 1-3). ASPIRIN/DARI 2020-0 Yes Take by [facility] TAMINOPHEN/ 6-15 mouth ity of CAFFEINE 09:13: daily. [place] (EXCEDRIN 39 Indication [facility]i [facility] MIGRAINE s: as Branch ORAL) needed methotrexat 2020-0 Yes inject [facility] ers e, PF, 6-15 under the ity of (OTREXUP, 09:13: skin [place] PF,) 25 39 weekly. Medical mg/0.4 mL Branch AtIn Dextrometho 2020-0 Yes Take by [facility] vers rphan-Guaif 6-15 mouth. ity of enesin 09:13: Indication [place] (MUCINEX 39 s: 2tabs Medical DM) once a Branch 60-1,200 mg week tablet folic acid 2020-0 Yes 400ug Take 400 [facility] (FOLVITE) 6-15 mcg by ity of 800 mcg 09:13: mouth [place] tablet 39 daily. Medical Indication Branch s: 2caps VITAMIN A 2020-0 Yes 8000[iU Take 8,000 [facility] ORAL 6-15 ] Int'l ity of 09:13: Units by [place] 39 mouth Medical daily. Branch amLODIPine 2020-0 Yes 5mg Take 5 mg [facility] (NORVASC) 5 6-15 by mouth ity of mg tablet 09:13: daily. [place] 39 Medical Branch diazepam 2020-0 Yes 10mg Take 10 mg [facility] (VALIUM) 10 6-15 by mouth ity of mg tablet 09:13: once now. [place] 39 [facility] Branch proMETHazin 2020-0 Yes 25mg Take 25 mg [facility] e 6-15 by mouth ity of (PHENERGAN) 09:13: every 4 [place] as 25 mg 39 (four) Medical tablet hours as Branch needed for Nausea and Vomiting (N/V). HYDROcodone 2020-0 Yes 1{tbl} Take 1 Tab [facility] -acetaminop 6-15 by mouth ity of hen (NORCO) 09:13: every 6 [place] as 10-325 mg 39 (six) Medical tablet hours as Branch needed for Pain (scale 1-3). ASPIRIN/DARI 2020-0 Yes Take by [facility] vers TAMINOPHEN/ 6-15 mouth ity of CAFFEINE 09:13: daily. [place] (EXCEDRIN 39 Indication [facility]i [facility] MIGRAINE s: as Branch ORAL) needed methotrexat 2020-0 Yes inject [facility] ers e, PF, 6-15 under the ity of (OTREXUP, 09:13: skin [place] PF,) 25 39 weekly. Medical mg/0.4 mL Branch AtIn Dextrometho 2020-0 Yes Take by [facility] vers rphan-Guaif 6-15 mouth. ity of enesin 09:13: Indication [place] (MUCINEX 39 s: 2tabs Medical DM) once a Branch 60-1,200 mg week tablet folic acid 2020-0 Yes 400ug Take 400 [facility] (FOLVITE) 6-15 mcg by ity of 800 mcg 09:13: mouth [place] tablet 39 daily. Medical Indication Branch s: 2caps VITAMIN A 2020-0 Yes 8000[iU Take 8,000 [facility] ORAL 6-15 ] Int'l ity of 09:13: Units by [place] [address] mouth Medical daily. Branch amLODIPine 2020-0 Yes 5mg Take 5 mg [facility] (NORVASC) 5 6-15 by mouth ity of mg tablet 09:13: daily. [place] [address] Medical Branch diazepam 2020-0 Yes 10mg Take 10 mg [facility] (VALIUM) 10 6-15 by mouth ity of mg tablet 09:13: once now. [place] as 39 [facility] Branch proMETHazin 2020-0 Yes 25mg Take 25 mg [facility] e 6-15 by mouth ity of (PHENERGAN) 09:13: every 4 [place] as 25 mg 39 (four) Medical tablet hours as Branch needed for Nausea and Vomiting (N/V). HYDROcodone 2020-0 Yes 1{tbl} Take 1 Tab [facility] -acetaminop 6-15 by mouth ity of hen (NORCO) 09:13: every 6 [facility] as 10-325 mg 39 (six) Medical tablet hours as Branch needed for Pain (scale 1-3). ASPIRIN/DARI 2020-0 Yes Take by [facility] vers TAMINOPHEN/ 6-15 mouth ity of CAFFEINE 09:13: daily. [place] (EXCEDRIN 39 Indication [facility]i [facility]ott MIGRAINE s: as Branch ORAL) needed methotrexat 2020-0 Yes inject [facility] ers e, PF, 6-15 under the ity of (OTREXUP, 09:13: skin [place] PF,) 25 39 weekly. Medical mg/0.4 mL Branch AtIn Dextrometho 2020-0 Yes Take by [facility] vers rphan-Guaif 6-15 mouth. ity of enesin 09:13: Indication [place] (MUCINEX 39 s: 2tabs Medical DM) once a Branch 60-1,200 mg week tablet folic acid 2020-0 Yes 400ug Take 400 [facility] (FOLVITE) 6-15 mcg by ity of 800 mcg 09:13: mouth [place] tablet 39 daily. Medical Indication Branch s: 2caps VITAMIN A 2020-0 Yes 8000[iU Take 8,000 [facility] ORAL 6-15 ] Int'l ity of 09:13: Units by [place] [address] mouth Medical daily. Branch amLODIPine 2020-0 Yes 5mg Take 5 mg [facility] (NORVASC) 5 6-15 by mouth ity of mg tablet 09:13: daily. [place] [address] Medical Branch diazepam 2020-0 Yes 10mg Take 10 mg [facility] (VALIUM) 10 6-15 by mouth ity of mg tablet 09:13: once now. [place] as 39 [facility] Branch proMETHazin 2020-0 Yes 25mg Take 25 mg [facility] e 6-15 by mouth ity of (PHENERGAN) 09:13: every 4 [facility] as 25 mg 39 (four) Medical tablet hours as Branch needed for Nausea and Vomiting (N/V). HYDROcodone 2020-0 Yes 1{tbl} Take 1 Tab [facility] -acetaminop 6-15 by mouth ity of hen (NORCO) 09:13: every 6 [facility] as 10-325 mg 39 (six) Medical tablet hours as Branch needed for Pain (scale 1-3). ASPIRIN/DARI 2020-0 Yes Take by [facility] vers TAMINOPHEN/ 6-15 mouth ity of CAFFEINE 09:13: daily. [place] (EXCEDRIN 39 Indication [facility]i [facility] MIGRAINE s: as Branch ORAL) needed methotrexat 2020-0 Yes inject Univ ers e, PF, 6-15 under the ity of (OTREXUP, 09:13: skin [place] PF,) 25 39 weekly. Medical mg/0.4 mL Branch AtIn Dextrometho 2020-0 Yes Take by Uni vers rphan-Guaif 6-15 mouth. ity of enesin 09:13: Indication [place] (MUCINEX 39 s: 2tabs Medical DM) once a Branch 60-1,200 mg week tablet folic acid 2020-0 Yes 400ug Take 400 [facility] (FOLVITE) 6-15 mcg by ity of 800 mcg 09:13: mouth [place] tablet 39 daily. Medical Indication Branch s: 2caps VITAMIN A 2020-0 Yes 8000[iU Take 8,000 [facility] ORAL 6-15 ] Int'l ity of 09:13: Units by [place] 39 mouth Medical daily. Branch amLODIPine 2020-0 Yes 5mg Take 5 mg [facility] (NORVASC) 5 6-15 by mouth ity of mg tablet 09:13: daily. [place] 39 Medical Branch diazepam 2020-0 Yes 10mg Take 10 mg [facility] (VALIUM) 10 6-15 by mouth ity of mg tablet 09:13: once now. [place] [facility] 39 [facility] Branch proMETHazin 2020-0 Yes 25mg Take 25 mg [facility] e 6-15 by mouth ity of (PHENERGAN) 09:13: every 4 [facility] as 25 mg 39 (four) Medical tablet hours as Branch needed for Nausea and Vomiting (N/V). HYDROcodone 2020-0 Yes 1{tbl} Take 1 Tab [facility] -acetaminop 6-15 by mouth ity of hen (NORCO) 09:13: every 6 [facility] as 10-325 mg 39 (six) Medical tablet hours as Branch needed for Pain (scale 1-3). ASPIRIN/DARI 2020-0 Yes Take by [facility] vers TAMINOPHEN/ 6-15 mouth ity of CAFFEINE 09:13: daily. [place] (EXCEDRIN 39 Indication [facility]i [facility] MIGRAINE s: as Branch ORAL) needed methotrexat 2020-0 Yes inject Univ ers e, PF, 6-15 under the ity of (OTREXUP, 09:13: skin [place] PF,) 25 39 weekly. Medical mg/0.4 mL Branch AtIn Dextrometho 2020-0 Yes Take by [facility] vers rphan-Guaif 6-15 mouth. ity of enesin 09:13: Indication [place] (MUCINEX 39 s: 2tabs Medical DM) once a Branch 60-1,200 mg week tablet folic acid 2020-0 Yes 400ug Take 400 [facility] (FOLVITE) 6-15 mcg by ity of 800 mcg 09:13: mouth [place] tablet 39 daily. Medical Indication Branch s: 2caps VITAMIN A 2020-0 Yes 8000[iU Take 8,000 [facility] ORAL 6-15 ] Int'l ity of 09:13: Units by [place] [address] mouth Medical daily. Branch amLODIPine 2020-0 Yes 5mg Take 5 mg [facility] (NORVASC) 5 6-15 by mouth ity of mg tablet 09:13: daily. [place] [address] Medical Branch diazepam 2020-0 Yes 10mg Take 10 mg [facility] (VALIUM) 10 6-15 by mouth ity of mg tablet 09:13: once now. [place] 39 [facility] Branch proMETHazin 2020-0 Yes 25mg Take 25 mg [facility] e 6-15 by mouth ity of (PHENERGAN) 09:13: every 4 [place] as 25 mg 39 (four) Medical tablet hours as Branch needed for Nausea and Vomiting (N/V). HYDROcodone 2020-0 Yes 1{tbl} Take 1 Tab [facility] -acetaminop 6-15 by mouth ity of hen (NORCO) 09:13: every 6 [facility] as 10-325 mg 39 (six) Medical tablet hours as Branch needed for Pain (scale 1-3). ASPIRIN/DARI 2020-0 Yes Take by Uni vers TAMINOPHEN/ 6-15 mouth ity of CAFFEINE 09:13: daily. [place] (EXCEDRIN 39 Indication [facility]i [facility] MIGRAINE s: as Branch ORAL) needed Spironolact 2020-0 Yes [facility] 1 tablet [facility] one 5-22 Vo l 02:45: B12 2020-0 Yes [facility] not [facility] INJECTION 5-22 Vo defined l 02:45: Vitamin K 2020-0 Yes [facility] not Me moria 5-22 Vo defined l 02:45: Baclofen 2020-0 Yes [facility] 1 tablet Memoria 5-22 Vo with food l 02:45: or milk Promethazin 2020-0 Yes [facility] 1 tablet [facility] e HCl 5-22 Vo as needed l 02:45: Ranitidine 2020-0 Yes [facility] 4 tablets [facility] HCl 5-22 Vo l 02:45: Amlodipine 2020-0 Yes [facility] 1 tablet [facility] Besylate 5-22 Vo l 02:45: Furosemide 2020-0 Yes [facility] 1 tablet [facility]oria 5-22 Vo l 02:45: Spironolact 2020-0 Yes [facility] 1 tablet [facility] one 5-22 Vo l 02:45: [place] 01 B12 2020-0 Yes [facility] not [facility] INJECTION 5-22 Vo defined l 02:45: Ez[place] 01 Vitamin K 2020-0 Yes [facility] not Me moria 5-22 Vo defined l 02:45: [place] 01 Baclofen 2020-0 Yes [facility] 1 tablet Memoria 5-22 Vo with food l 02:45: or milk [place] 01 Promethazin 2020-0 Yes [facility] 1 tablet [facility] e HCl 5-22 Vo as needed l 02:45: [place] 01 Ranitidine 2020-0 Yes [facility] 4 tablets [facility]oria HCl 5-22 Vo l 02:45: [place] 01 Amlodipine 2020-0 Yes [facility] 1 tablet [facility] Besylate 5-22 Vo l 02:45: [place] 01 Furosemide 2020-0 Yes [facility] 1 tablet [facility]oria 5-22 Vo l 02:45: [place] 01 Spironolact 2020-0 Yes [facility] 1 tablet [facility]oria one 5-22 Vo l 02:45: Ez[place] B12 2020-0 Yes [facility] not [facility] INJECTION 5-22 Vo defined l 02:45: [place] 01 Vitamin K 2020-0 Yes [facility] not Me moria 5-22 Vo defined l 02:45: Ez[place] Baclofen 2020-0 Yes [facility] 1 tablet Memoria 5-22 Vo with food l 02:45: or milk [place] Promethazin 2020-0 Yes [facility] 1 tablet [facility] e HCl 5-22 Vo as needed l 02:45: Ez[place] Ranitidine 2020-0 Yes [facility] 4 tablets [facility]oria HCl 5-22 Vo l 02:45: [place] Amlodipine 2020-0 Yes [facility] 1 tablet [facility] Besylate 5-22 Vo l 02:45: [place] Furosemide 2020-0 Yes [facility] 1 tablet [facility]oria 5-22 Vo l 02:45: Ez[place] Spironolact 2020-0 Yes [facility] 1 tablet [facility]oria one 5-22 Vo l 02:45: Ez[place] B12 2020-0 Yes [facility] not [facility] INJECTION 5-22 Vo defined l 02:45: Ezra Vitamin K 2020-0 Yes Rut not Me moria 5-22 Vo defined l 02:45: [place] Baclofen 2020-0 Yes [facility] 1 tablet Memoria 5-22 Vo with food l 02:45: or milk [place] 01 Promethazin 2020-0 Yes [facility] 1 tablet [facility] e HCl 5-22 Vo as needed l 02:45: Ezra Ranitidine 2020-0 Yes [facility] 4 tablets [facility] HCl 5-22 Vo l 02:45: [place] Amlodipine 2020-0 Yes [facility] 1 tablet [facility] Besylate 5-22 Vo l 02:45: [place] Furosemide 2020-0 Yes [facility] 1 tablet [facility]oria 5-22 Vo l 02:45: Ez[place] Spironolact 2020-0 Yes [facility] 1 tablet [facility] one 5-22 Vo l 02:45: [place] B12 2020-0 Yes [facility] not [facility] INJECTION 5-22 Vo defined l 02:45: [place] Vitamin K 2020-0 Yes [facility] not Me moria 5-22 Vo defined l 02:45: Baclofen 2020-0 Yes [facility] 1 tablet Memoria 5-22 Vo with food l 02:45: or milk Promethazin 2020-0 Yes [facility] 1 tablet [facility] e HCl 5-22 Vo as needed l 02:45: Ranitidine 2020-0 Yes [facility] 4 tablets [facility] HCl 5-22 Vo l 02:45: Amlodipine 2020-0 Yes [facility] 1 tablet [facility] Besylate 5-22 Vo l 02:45: Furosemide 2020-0 Yes [facility] 1 tablet [facility] 5-22 Vo l 02:45: [place] 01 Spironolact 2020-0 Yes [facility] 1 tablet [facility] one 5-22 Vo l 02:45: [place] 01 B12 2020-0 Yes [facility] not [facility] INJECTION 5-22 Vo defined l 02:45: [place] 01 Vitamin K 2020-0 Yes [facility] not Me moria 5-22 Vo defined l 02:45: [place] 01 Baclofen 2020-0 Yes [facility] 1 tablet [facility]oria 5-22 Vo with food l 02:45: or milk Promethazin 2020-0 Yes [facility] 1 tablet [facility] e HCl 5-22 Vo as needed l 02:45: Ranitidine 2020-0 Yes [facility] 4 tablets [facility] HCl 5-22 Vo l 02:45: Amlodipine 2020-0 Yes [facility] 1 tablet [facility] Besylate 5-22 Vo l 02:45: [place] 01 Furosemide 2020-0 Yes [facility] 1 tablet [facility] 5-22 Vo l 02:45: Syringe 2020-0 Yes [facility] as Pedro cl (Disposable 5-20 Vo directed l ) 00:00: Needle 2020-0 Yes [facility] as [facility] ia (Disp) 5-20 Vo directed l 00:00: Syringe 2020-0 Yes [facility] as [place] [facility] (Disposable 5-20 Vo directed l ) 00:00: Needle 2020-0 Yes [facility] as [facility] (Disp) 5-20 Vo directed l 00:00: Syringe 2020-0 Yes [facility] as [place] cl (Disposable 5-20 Vo directed l ) 00:00: Needle 2019-0 Yes [facility] as [facility] ia (Disp) 5-20 Vo directed l 00:00: Syringe 2019-0 Yes [facility] as [place] cl (Disposable 5-20 Vo directed l ) 00:00: Needle 2019-0 Yes [facility] as [facility] (Disp) 5-20 Vo directed l 00:00: Syringe 2019-0 Yes [facility] as [place] [facility] (Disposable 5-20 Vo directed l ) 00:00: Needle 2019-0 Yes [facility] as [facility] (Disp) 5-20 Vo directed l 00:00: Syringe 2019-0 Yes [facility] as [place] [facility] (Disposable 5-20 Vo directed l ) 00:00: Needle 2019-0 Yes [facility] as [facility] (Disp) 5-20 Vo directed l 00:00: predniSONE 2020-0 Yes [id number] TAKE ONE [facility] 20 mg 1-04 TABLET ity of tablet 00:00: ORALLY [place] 00 DAILY Medical Branch famotidine 2020-0 Yes [id number] 40mg Take 1 [facility] (PEPCID) 40 1-04 tablet by ity of mg tablet 00:00: mouth [place] 00 daily. Medical Branch predniSONE 2020-0 Yes [id number] TAKE ONE [facility] 20 mg 1-04 TABLET ity of tablet 00:00: ORALLY [place] 00 DAILY Medical Branch famotidine 2020-0 Yes [id number] 40mg Take 1 [facility] (PEPCID) 40 1-04 tablet by ity of mg tablet 00:00: mouth [place] 00 daily. Medical Branch predniSONE 2020-0 Yes [id number] TAKE ONE [facility] 20 mg 1-04 TABLET ity of tablet 00:00: ORALLY [place] 00 DAILY Medical Branch famotidine 2020-0 Yes [id number] 40mg Take 1 [facility] (PEPCID) 40 1-04 tablet by ity of mg tablet 00:00: mouth [place] 00 daily. Medical Branch predniSONE 2020-0 Yes [id number] TAKE ONE [facility] 20 mg 1-04 TABLET ity of tablet 00:00: ORALLY [place] 00 DAILY Medical Branch famotidine 2020-0 Yes [id number] 40mg Take 1 [facility] (PEPCID) 40 1-04 tablet by ity of mg tablet 00:00: mouth [place] 00 daily. Medical Branch predniSONE 2020-0 Yes [id number] TAKE ONE [facility] 20 mg 1-04 TABLET ity of tablet 00:00: ORALLY [place] 00 DAILY Medical Branch famotidine 2020-0 Yes [id number] 40mg Take 1 [facility] (PEPCID) 40 1-04 tablet by ity of mg tablet 00:00: mouth [place] 00 daily. Medical Branch predniSONE 2020-0 Yes [id number] TAKE ONE [facility] 20 mg 1-04 TABLET ity of tablet 00:00: ORALLY [place] 00 DAILY Medical Branch famotidine 2020-0 Yes [id number] 40mg Take 1 [facility] (PEPCID) 40 1-04 tablet by ity of mg tablet 00:00: mouth [place] 00 daily. Medical Branch predniSONE 2020-0 Yes [id number] TAKE ONE [facility] 20 mg 1-04 TABLET ity of tablet 00:00: ORALLY [place] 00 DAILY Medical Branch famotidine 2020-0 Yes [id number] 40mg Take 1 [facility] (PEPCID) 40 1-04 tablet by ity of mg tablet 00:00: mouth [place] 00 daily. Medical Branch predniSONE 2020-0 Yes [id number] TAKE ONE [facility] 20 mg 1-04 TABLET ity of tablet 00:00: ORALLY [place] 00 DAILY Medical Branch famotidine 2020-0 Yes [id number] 40mg Take 1 [facility] (PEPCID) 40 1-04 tablet by ity of mg tablet 00:00: mouth [place] 00 daily. Medical Branch predniSONE 2020-0 Yes [id number] TAKE ONE [facility] 20 mg 1-04 TABLET ity of tablet 00:00: ORALLY [place] 00 DAILY Medical Branch famotidine 2020-0 Yes [id number] 40mg Take 1 [facility] (PEPCID) 40 1-04 tablet by ity of mg tablet 00:00: mouth [place] 00 daily. Medical Branch predniSONE 2020-0 Yes [id number] TAKE ONE [facility] 20 mg 1-04 TABLET ity of tablet 00:00: ORALLY [place] 00 DAILY Medical Branch famotidine 2020-0 Yes [id number] 40mg Take 1 [facility] (PEPCID) 40 1-04 tablet by ity of mg tablet 00:00: mouth [place] 00 daily. Medical Branch predniSONE 2020-0 Yes [id number] TAKE ONE [facility] 20 mg 1-04 TABLET ity of tablet 00:00: ORALLY [place] 00 DAILY Medical Branch famotidine 2020-0 Yes [id number] 40mg Take 1 [facility] (PEPCID) 40 1-04 tablet by ity of mg tablet 00:00: mouth [place] 00 daily. Medical Branch CellCept 2019- Yes [facility] 1 tablets [facility] 1-13 Vo l 03:46: Folic Acid 2019- Yes [facility] not M emoria 1-13 Vo defined l 03:46: CellCept 2019- Yes [facility] 1 tablets [facility] 1-13 Vo l 03:46: Folic Acid 2019- Yes [facility] not M emoria 1-13 Vo defined l 03:46: CellCept 2019- Yes [facility] 1 tablets [facility] 1-13 Vo l 03:46: Folic Acid 2019- Yes [facility] not M emoria 1-13 Vo defined l 03:46: CellCept 2019- Yes [facility] 1 tablets [facility] 1-13 Vo l 03:46: Folic Acid 2019- Yes [facility] not M emoria 1-13 Vo defined l 03:46: CellCept 2019- Yes [facility] 1 tablets [facility] 1-13 Vo l 03:46: Folic Acid 2019-1 Yes [facility] not M emoria 1-13 Vo defined l 03:46: CellCept 2019- Yes [facility] 1 tablets [facility] 1-13 Vo l 03:46: Folic Acid 2019- Yes [facility] not M emoria 1-13 Vo defined l 03:46: [place] 06 CellCept 2019-0 Yes [facility] 1 tablets [facility] 9-13 Vo l 00:00: [place] 00 CellCept 2019-0 Yes [facility] 1 tablets [facility] 9-13 Vo l 00:00: [place] 00 CellCept 2019-0 Yes [facility] 1 tablets [facility]oria 9-13 Vo l 00:00: Ezra 00 CellCept 2019-0 Yes [facility] 1 tablets [facility] 9-13 Vo l 00:00: [place] 00 CellCept 2019-0 Yes [facility] 1 tablets [facility] 9-13 Vo l 00:00: [place] 00 CellCept 2019-0 Yes [facility] 1 tablets [facility] 9-13 Vo l 00:00: [place] 00 Azathioprin 2019-0 Yes [facility] 1 tablet [facility] e 5- Vo l 00:00: Azathioprin 2019-0 Yes [facility] 1 tablet [facility] e 5-01 Vo l 00:00: Azathioprin 2019-0 Yes [facility] 1 tablet [facility] e 5-01 Vo l 00:00: Azathioprin 2019-0 Yes [facility] 1 tablet [facility] e 5-01 Vo l 00:00: Azathioprin 2019-0 Yes [facility] 1 tablet [facility] e 5-01 Vo l 00:00: Azathioprin 2019-0 Yes [facility] 1 tablet [facility] e 5-01 Vo l 00:00: BD REGULAR 2019-0 Yes [facility] B[facility] NEEDLES 25 00:00: [facility] gauge x 00 l 5/8" needle BD REGULAR 2019-0 Yes [facility] BEVEL 4-[facility] NEEDLES 25 00:00: [facility] gauge x 00 l 5/8" needle BD REGULAR 2019-0 Yes [facility] BEVEL [facility] NEEDLES 25 00:00: [facility] gauge x 00 l 5/8" needle ULTRA 2018-1 Yes USE [facility] COMFORT 2-[address] INSULIN 00:00: ONCE [facility] SYRINGE 1 00 WEEKLY l mL 28 gauge x 1/2" syringe ULTRA 2018-1 Yes USE [facility] COMFORT 2-[address] INSULIN 00:00: ONCE [facility] SYRINGE 1 00 WEEKLY l mL 28 gauge x 1/2" syringe ULTRA 2018-1 Yes USE [facility] COMFORT 2-[address] INSULIN 00:00: ONCE [facility] SYRINGE 1 00 WEEKLY l mL 28 gauge x 1/2" syringe Methotrexat 2018 Yes [facility] 1 cc as [facility] e Sodium 1-15 Vo directed l 00:00: Syringe 2017- Yes [facility] injection [facility] 1-15 Vo as l 00:00: directed Methotrexat 2017- Yes [facility] 1 cc as [facility] e Sodium 1-15 Vo directed l 00:00: Syringe 2017- Yes [facility] injection [facility] 1-15 Vo as l 00:00: directed Methotrexat 2018- Yes [facility] 1 cc as [facility] e Sodium 1-15 Vo directed l 00:00: Syringe 2017- Yes [facility] injection [facility] 1-15 Vo as l 00:00: directed Methotrexat 2017-11 Yes [facility] 1 cc as [facility] e Sodium 1-15 Vo directed l 00:00: Syringe 2017-11 Yes [facility] injection [facility] 1-15 Vo as l 00:00: directed Methotrexat 2017-11 Yes [facility] 1 cc as [facility] e Sodium 1-15 Vo directed l 00:00: Syringe 2017-11 Yes [facility] injection [facility] 1-15 Vo as l 00:00: directed Methotrexat 2017-11 Yes [facility] 1 cc as [facility] e Sodium 1-15 Vo directed l 00:00: Syringe 2017-11 Yes [facility] injection [facility] 1-15 Vo as l 00:00: directed fluocinonid 2018-0 Yes Q.5D Apply Metho di e (LIDEX) 1-[address] 0.05 % 00:00: 2 (two) [facility] ointment 00 times a l day as needed (rash or itching). fluocinonid 2017-0 Yes Q.5D Apply Metho di e (LIDEX) 1-[address] 0.05 % 00:00: 2 (two) [facility] ointment 00 times a l day as needed (rash or itching). fluocinonid 2018-0 Yes Q.5D Apply Metho di e (LIDEX) 1-[address] 0.05 % 00:00: 2 (two) [facility] ointment 00 times a l day as needed (rash or itching). hydrOXYzine 2017-0 Yes 25mg Take 1 Univ ers 25 mg 7-22 tablet by ity of tablet 00:00: mouth 00 every 6 Medical (six) Branch hours. hydrOXYzine 2017-0 Yes 25mg Take 1 Univ ers 25 mg 7-22 tablet by ity of tablet 00:00: mouth 00 every 6 Medical (six) Branch hours. hydrOXYzine 2017-0 Yes 25mg Take 1 Univ ers 25 mg 7-22 tablet by ity of tablet 00:00: mouth [place] 00 every 6 Medical (six) Branch hours. hydrOXYzine 2017-0 Yes 25mg Take 1 Univ ers 25 mg 7-22 tablet by ity of tablet 00:00: mouth [place] 00 every 6 Medical (six) Branch hours. hydrOXYzine 2017-0 Yes 25mg Take 1 Univ ers 25 mg 7-22 tablet by ity of tablet 00:00: mouth [place] 00 every 6 Medical (six) Branch hours. hydrOXYzine 2017-0 Yes 25mg Take 1 Univ ers 25 mg 7-22 tablet by ity of tablet 00:00: mouth [place] 00 every 6 Medical (six) Branch hours. hydrOXYzine 2017-0 Yes 25mg Take 1 Univ ers 25 mg 7-22 tablet by ity of tablet 00:00: mouth [place] 00 every 6 Medical (six) Branch hours. hydrOXYzine 2017-0 Yes 25mg Take 1 Univ ers 25 mg 7-22 tablet by ity of tablet 00:00: mouth [place] 00 every 6 Medical (six) Branch hours. hydrOXYzine 2017-0 Yes 25mg Take 1 Univ ers 25 mg 7-22 tablet by ity of tablet 00:00: mouth [place] 00 every 6 Medical (six) Branch hours. hydrOXYzine 2017-0 Yes 25mg Take 1 Univ ers 25 mg 7-22 tablet by ity of tablet 00:00: mouth [place] 00 every 6 Medical (six) Branch hours. hydrOXYzine 2017-0 Yes 25mg Take 1 Univ ers 25 mg 7-22 tablet by ity of tablet 00:00: mouth [place] 00 every 6 Medical (six) Branch hours. methylPREDN 2016-1 Yes 84mg Take 21 Uni vers ISolone 2-02 tablets by ity of (MEDROL, 00:00: mouth [place] CHAD,) 4 mg 00 SEE-INSTRU Med ical tablets CTIONS. Branch follow package directions methylPREDN 2016-1 Yes 84mg Take 21 Uni vers ISolone 2-02 tablets by ity of (MEDROL, 00:00: mouth [place] CHAD,) 4 mg 00 SEE-INSTRU Med ical tablets CTIONS. Branch follow package directions methylPREDN 2016-1 Yes 84mg Take 21 Uni vers ISolone 2-02 tablets by ity of (MEDROL, 00:00: mouth [place] CHAD,) 4 mg 00 SEE-INSTRU Med ical tablets CTIONS. Branch follow package directions methylPREDN 2016-1 Yes 84mg Take 21 Uni vers ISolone 2-02 tablets by ity of (MEDROL, 00:00: mouth [place] CHAD,) 4 mg 00 SEE-INSTRU Med ical tablets CTIONS. Branch follow package directions methylPREDN 2015-11 2020- No 84mg Take 21 Un guille ISolone 2-02 08-05 tablets by kd corona (MEDROL, 00:00: 00:00 mouth [place] CHAD,) 4 mg 00 :00 SEE-INSTRU Med ical tablets CTIONS. Branch follow package directions LIDOCAINE Yes 5ml swish [facility] VISCOUS 2 % 05-09 and l SOLN 00:00: swallow [place] 00 every 6-8 hours as needed for sore throat AUGMENTIN No 1 tablet Pedro cl 875-125 MG 05-09 twice l TABS 00:00: daily for [place] 00 10 days MEDROL Yes Take as Memoria (CHAD) 4 MG 02 directed l TABS 00:00: [facility] 00 DIFLUCAN No 1 tablet x Mem [facility] 150 MG TABS 05-09 1 dose l 00:00: now, repeat dose in 3 days MUPIROCIN 2 Yes apply to Me moria % OINT 05-09 affected l 00:00: area three [place] 00 times daily as needed ZOFRAN 4 MG No 1-2 Memori a TABS 6-23 tablets l 00:00: every 8 [place] 00 hours as needed for nausea/vom iting POTASSIUM Yes 1 tablet Pedro cl CHLORIDE 6-05 daily with l BANDAR ER 20 00:00: lasix Bernardo n MEQ CR-TABS 00 MEDROL No Take as Memoria (CHAD) 4 MG 6-05 directed l TABS 00:00: [place] TOPAMAX 100 Yes 1 tab po Me moria MG TABS 6-05 daily l 00:00: [facility] 00 POTASSIUM Yes 1 tablet Pedro cl CHLORIDE 6-05 daily with l BANDAR ER 20 00:00: lasix Bernardo n MEQ CR-TABS 00 TOPAMAX 50 Yes 1/2 tab Pedro cl MG TABS 6-05 daily x 1 l 00:00: week, then [place] 00 increase 1 tab daily POTASSIUM Yes 1 tablet Pedro cl CHLORIDE 6-05 daily with l BANDAR ER 20 00:00: lasix Bernardo n MEQ CR-TABS 00 FUROSEMIDE 2015-0 Yes 1 tablet Mem [facility]ria 20 MG TABS 5-15 daily prn l 00:00: abdominal [place] 00 or leg swelling FUROSEMIDE Yes 1 tablet [facility] 20 MG TABS 5-15 daily prn l 00:00: abdominal Ezra or leg swelling FUROSEMIDE Yes 1 tablet [facility] 20 MG TABS 5-15 daily prn l 00:00: abdominal [place] or leg swelling SERTRALINE Yes 1 tablet [facility] HCL 100 MG 4-16 daily for l TABS 00:00: mood SERTRALINE Yes 1 tab Memori a HCL 50 MG 4-16 daily for l TABS 00:00: mood SERTRALINE Yes 1 tab Memori a HCL 50 MG 4-16 daily for l TABS 00:00: mood VALIUM 5 MG Yes 1 tablet Me moria TABS 4-10 po nightly l 00:00: as needed for sleep or muscle relaxers PREDNISONE No 2 tablets Me moria 20 MG TABS 4-10 daily x 3 l 00:00: days, then Ezra 00 1 tablets daily X 3 days, then 1/2 tablet daily x 8 days, then stop and take 1/2 tab daily only as directed PREDNISONE No 2 tablets Me moria 20 MG TABS 4-10 daily x 3 l 00:00: days, then [place] 00 1 tablets daily X 3 days, then 1/2 tablet daily x 8 days, then stop and take 1/2 tab daily only as directed PREDNISONE No 2 tablets Me moria 20 MG TABS 4-10 daily x 3 l 00:00: days, then [place] 00 1 tablets daily X 3 days, then 1/2 tablet daily x 8 days, then stop and take 1/2 tab daily only as directed FUROSEMIDE No 1 tablet Mem [facility] 20 MG TABS 3-07 daily prn l 00:00: swelliing FUROSEMIDE No 1 tablet [facility] 20 MG TABS 3-07 daily prn l 00:00: swelliing FUROSEMIDE No 1 tablet [facility] 20 MG TABS 3-07 daily prn l 00:00: swelliing ESTAZOLAM 2 No 1/2 -1 tab Memoria MG TABS 3-05 nightly l 00:00: prn [place] insomnia TAMIFLU 75 No 1 capsule Me moria MG CAPS 2-10 daily x 10 l 00:00: days for [place] 00 flu prophylaxi s TAMIFLU 75 No 1 capsule Me moria MG CAPS 2-10 daily x 10 l 00:00: days for Ezra 00 flu prophylaxi s CITALOPRAM Yes 1 tablet Mem [facility]ria HYDROBROMID 2-02 daily l E 10 MG 00:00: [facility] TABS PROMETHAZIN No 1 tablet Me moria E HCL 25 MG 2-02 every 8 l TABS 00:00: hours as [place] 00 needed for nausea/vom iting LUNESTA 3 No 1 tablet Pedro cl MG TABS 2-02 at bedtime l 00:00: as needed [place] 00 for insomnia CITALOPRAM No 1 tablet Mem [facility]ria HYDROBROMID 2-02 daily for l E 20 MG 00:00: mood [facility] TABS PROMETHAZIN No 1 tablet Me moria E HCL 25 MG 2-02 every 8 l TABS 00:00: hours as [place] needed for nausea/vom iting LUNESTA 3 No 1 tablet Pedro cl MG TABS 2-02 at bedtime l 00:00: as needed [facility] 00 for insomnia PROMETHAZIN No 1 tablet Me moria E HCL 25 MG 2-02 every 8 l TABS 00:00: hours as [place] 00 needed for nausea/vom iting PREDNISONE 2013-11 Yes 1 tab Memori a 10 MG TABS 1-26 daily l 00:00: [place] LOSARTAN 2013-11 No 1 tab [facility]oria POTASSIUM 1-26 daily l 50 MG TABS 00:00: [facility] HYDROCODONE 2013-11 Yes 1 tablet Me moria -ACETAMINOP 1-26 three l HEN 10-325 00:00: times a Herm sherice MG TABS 00 day as needed for pain PLAQUENIL 2013-11 No Memoria 200 MG TABS 1-26 l 00:00: [place] HYDROXYCHLO 2013-11 No 1 tab Memor ia ROQUINE 1-26 twice l SULFATE 200 00:00: daily Whit nn MG TABS 00 LOSARTAN 2013-11 No 1 tab Memoria POTASSIUM 1-26 daily l 50 MG TABS 00:00: [place] 00 HYDROCODONE 2013-11 Yes 1 tablet Me moria -ACETAMINOP 1-26 three l HEN 10-325 00:00: times a Herm sherice MG TABS 00 day as needed for pain PREDNISONE 2013-11 No 1 tab Memori a 10 MG TABS 1-26 daily l 00:00: [place] 00 HYDROXYCHLO 2013-11 No 1 tab Memor ia ROQUINE 1-26 twice l SULFATE 200 00:00: daily Whit nn MG TABS 00 HYDROCODONE 2013-11 Yes 1 tablet Me moria -ACETAMINOP 1-26 three l HEN 10-325 00:00: times a Herm sherice MG TABS 00 day as needed for pain HYDROXYCHLO 2013-11 No 1 tab Memor ia ROQUINE 1-26 twice l SULFATE 200 00:00: daily Whit nn MG TABS 00 PLAQUENIL 2013-11 No Memoria 200 MG TABS 1-26 l 00:00: [place] 00 HYDROXYCHLO 2013-11 No 1 tab Memor ia ROQUINE 1-26 twice l SULFATE 200 00:00: daily Whit nn MG TABS 00 PREDNISONE 2013-11 No 1 tab Memori a 10 MG TABS 1-26 daily l 00:00: HYDROCODONE 2013-11 Yes 1 tablet Me moria -ACETAMINOP 1-26 three l HEN 10-325 00:00: times a Herm sherice MG TABS 00 day as needed for pain PLAQUENIL 2013-11 No Memoria 200 MG TABS 1-26 l 00:00: [place] PREDNISONE 2013-11 No 1 tab Memori a 10 MG TABS 1-26 daily l 00:00: [place] 00 CIPROFLOXAC No 1 tablet Me moria [...] day, then 1 tablet daily thereafter PREDNISONE Yes 4 tablets Me moria 10 MG TABS 9 daily x 1 l 00:00: day, then [...] 1 day, then 1 tablet daily thereafter [facility] 5 No 1 tablet Pedro cl MG TABS - daily for l 00:00: blood pressure, increase [...] daily l MG TBEC 00:00: TOPAMAX 100 0 No 1 tab po Me moria MG TABS 5-17 bid for l 00:00: seizures PROMETHAZIN 0 No 1 tablet Me moria E HCL 25 MG 5-17 once or l TABS 00:00: twice daily as needed for nausea/vom iting AZITHROMYCI 0 No 2 tablets M emoria N 250 MG 5-17 daily for l TABS 00:00: 1 day, then 1 tablet daily for 4 days PANTOPRAZOL 0 No 40 mg po Me moria E SODIUM 40 5-17 daily l MG TBEC 00:00: PROMETHAZIN 2013-0 No 1 tablet Me moria E HCL 25 MG 5-17 once or l TABS 00:00: twice daily as needed for nausea/vom iting PANTOPRAZOL 0 No 40 mg po Me moria E SODIUM 40 5-17 daily l MG TBEC 00:00: PROMETHAZIN 2013-0 No 1 tablet Me moria E HCL 25 MG 5-17 once or l TABS 00:00: twice daily as needed for nausea/vom iting PROMETHAZIN 2013-0 No 1 tablet Me moria E HCL 25 MG 5-17 once or l TABS 00:00: twice [place] daily as needed for nausea/vom iting topiramate 2010-0 Yes 100mg Take 100 Un guille (TOPAMAX) 6-16 mg by ity of 100 mg 00:00: mouth 2 [place] tablet 00 (two) Medical times Branch daily. topiramate 2010-0 Yes 100mg Take 100 Un guille (TOPAMAX) 6-16 mg by ity of 100 mg 00:00: mouth 2 [place] tablet 00 (two) Medical times Branch daily. topiramate 2010-0 Yes 100mg Take 100 Un guille (TOPAMAX) 6-16 mg by ity of 100 mg 00:00: mouth 2 [place] tablet 00 (two) Medical times Branch daily. topiramate 2010-0 Yes 100mg Take 100 Un guille (TOPAMAX) 6-16 mg by ity of 100 mg 00:00: mouth 2 [place] tablet 00 (two) Medical times Branch daily. topiramate 2010-0 Yes 100mg Take 100 Un guille (TOPAMAX) 6-16 mg by ity of 100 mg 00:00: mouth 2 [place] tablet 00 (two) Medical times Branch daily. topiramate 2010-0 Yes 100mg Take 100 Un guille (TOPAMAX) 6-16 mg by ity of 100 mg 00:00: mouth 2 [place] tablet 00 (two) Medical times Branch daily. topiramate 2010-0 Yes 100mg Take 100 Un guille (TOPAMAX) 6-16 mg by ity of 100 mg 00:00: mouth 2 [place] tablet 00 (two) Medical times Branch daily. topiramate 2010-0 Yes 100mg Take 100 Un guille (TOPAMAX) 6-16 mg by ity of 100 mg 00:00: mouth 2 [place] tablet 00 (two) Medical times Branch daily. topiramate 2010-0 Yes 100mg Take 100 Un guille (TOPAMAX) 6-16 mg by ity of 100 mg 00:00: mouth 2 [place] tablet 00 (two) Medical times Branch daily. topiramate 2010-0 Yes 100mg Take 100 Un guille (TOPAMAX) 6-16 mg by ity of 100 mg 00:00: mouth 2 [place] tablet 00 (two) Medical times Branch daily. topiramate 2010-0 Yes 100mg Take 100 Un guille (TOPAMAX) 6-16 mg by ity of 100 mg 00:00: mouth 2 [place] tablet 00 (two) Medical times Branch daily. Immunizations Ordered Immunization Filled Immunization Date Status Commen ts Source Name Name FLUCELVAX QUAD PF 2022-08-[address] [facility] FLUCELVAX QUAD PF 2022-08-[address] [facility] FLUCELVAX QUAD PF 2020-08-[address] [facility] FLUCELVAX QUAD PF 2020-08-[address] [facility] FLUCELVAX QUAD PF 2020-08-[address] [facility] FLUZONE QUAD PF 2019-07-25 Completed [facility] 00:[facility]00 [facility] FLUZONE QUAD 2019-07-25 Completed [facility] 00[facility]00:00 Hospital FLUZONE QUAD PF 2019-07-25 Completed [facility] 00:00:00 Hospital FLUZONE QUAD 2019-07-25 Completed [facility] 00:00:00 Hospital FLUZONE QUAD PF 2019-07-25 Completed [facility] 00:00:00 Hospital FLUZONE QUAD 2019-07-25 Completed [facility] 00:00:00 Hospital FLUZONE QUAD 2016-08-20 Completed [facility] 00:00:00 Hospital FLUZONE QUAD 2016-08-20 Completed [facility] 00:00:00 Hospital FLUZONE QUAD 2016-08-20 Completed [facility] 00:[facility]:00 Hospital Vital Signs Vital Name Observation Time Observation Value Comments Source Body height 2022-07-23 17:08:00 [facility] Body weight 2022-07-23 17:08:00 88[facility]451 [facility] BMI 2022-07-23 17:08:00 32.45 kg/m2 [facility] Systolic blood 2022-02-10 09:20:00 128 mm[Hg] Univer sity of pressure [facility] Diastolic blood 2022-02-10 09:20:00 75 mm[Hg] Unive rsity of pressure [facility] Heart rate 2022-02-10 09:20:00 74 /min Universi ty [facility] Respiratory rate 2022-02-10 09:20:00 [facility] 2022-02-10 09:20:00 100 /min [facility] Arterial blood by [facility] Pulse oximetry Branch Body temperature 2022-02-10 07:02:00 37.28 Beena Univ ers[facility] [place] [facility] Body height 2022-02-10 07:02:00 167.6 cm [facility] Body weight 2022-02-10 07:02:00 86.183 kg [facility] BMI 2022-02-10 07:02:00 30.67 kg/m2 [facility] ty [facility] [place] [facility] Systolic blood 2021-11-13 19:00:00 108 mm[Hg] Univer sity of pressure [facility] Diastolic blood 2021-11-13 19:00:00 77 mm[Hg] Unive rsity of pressure [facility] Heart rate 2021-11-13 19:00:00 99 /min [facility]i ty [facility] Respiratory rate 2021-11-13 19:00:00 20 /min Univ ersity [facility] Oxygen saturation in 2021-11-13 19:00:00 97 /min [facility] of Arterial blood by [facility] Pulse oximetry Branch Body temperature 2021-11-13 15:45:00 36.61 Beena [facility] Body weight 2021-11-13 15:45:00 90.719 kg [facility] BMI 2021-11-13 15:45:00 32.28 kg/m2 [facility] Systolic blood 2020-06-12 15:43:00 125 mm[Hg] Univer sity of pressure [facility] Diastolic blood 2020-06-12 15:43:00 77 mm[Hg] Unive rsity of pressure [facility] Heart rate 2020-06-12 15:43:00 90 /min [facility] Respiratory rate 2020-06-12 15:43:00 19 /min [facility] Oxygen saturation in 2020-06-12 15:43:00 99 /min [facility] of Arterial blood by [facility] Pulse oximetry Branch Body temperature 2020-06-12 12:47:00 37.28 Beena [facility] ersity of [facility] Body height 2020-06-12 12:47:00 167.6 cm [facility] Body weight 2020-06-12 12:47:00 90.719 kg Universi ty [facility] BMI 2020-06-12 12:47:00 32.28 kg/m2 Universi ty of [facility] Systolic blood 2020-06-12 15:43:00 125 mm[Hg] Univer sity of pressure [facility] Diastolic blood 2020-06-12 15:43:00 77 mm[Hg] Unive rsity of pressure [facility] Heart rate 2020-06-12 15:43:00 90 /min Universi ty of [facility] Respiratory rate 2020-06-12 15:43:00 19 /min Univ ersity of [facility] Oxygen saturation in 2020-06-12 15:43:00 99 /min University of Arterial blood by [facility] Pulse oximetry Branch Body temperature 2020-06-12 12:47:00 37.28 Beena Univ ersity of [facility] Body height 2020-06-12 12:47:00 167.6 cm Universi ty of [facility] Body weight 2020-06-12 12:47:00 90.719 kg Universi ty of [facility] BMI 2020-06-12 12:47:00 32.28 kg/m2 Universi ty of [facility] Systolic blood 2020-04-22 14:21:00 115 mm[Hg] Univer sity of pressure [facility] Diastolic blood 2020-04-22 14:21:00 78 mm[Hg] Unive rsity of pressure [facility] Heart rate 2020-04-22 14:21:00 88 /min Universi ty of [facility] Body temperature 2020-04-22 14:21:00 37.06 Beena Univ ersity of [facility] Respiratory rate 2020-04-22 14:21:00 18 /min Univ ersity of [facility] Body height 2020-04-22 14:21:00 167.6 cm Universi ty of [facility] Body weight 2020-04-22 14:21:00 95.255 kg [facility] BMI 2020-04-22 14:21:00 33.89 kg/m2 Universi ty of [facility] Systolic blood 2020-04-22 14:21:00 115 mm[Hg] Univer sity of pressure [facility] Diastolic blood 2020-04-22 14:21:00 78 mm[Hg] Unive rsity of pressure [facility] Heart rate 2020-04-22 14:21:00 88 /min Universi ty of [facility] Body temperature 2020-04-22 14:21:00 37.06 Beena [facility] Respiratory rate 2020-04-22 14:21:00 18 /min [facility] Body height 2020-04-22 14:21:00 167.6 cm [facility] Body weight 2020-04-22 14:21:00 95.255 kg [facility] BMI 2020-04-22 14:21:00 33.89 kg/m2 [facility] Body temperature 2022-11-24 22:57:00 40.39 Beena [facility] Body height 2022-11-24 22:57:00 160 cm [facility] Body weight 2022-11-24 22:57:00 86.183 kg [facility] BMI 2022-11-24 22:57:00 33.66 kg/m2 [facility] Oxygen saturation in 2022-11-24 22:57:00 80 /min [facility] Arterial blood by Pulse oximetry Systolic blood 2022-10-27 21:39:00 137 mm[Hg] Method [facility] pressure Diastolic blood 2022-10-27 21:39:00 84 mm[facility]Hg[facility] Heart rate 2022-10-27 21:39:00 85 /min [facility] Respiratory rate 2022-10-27 21:39:00 20 /min [facility] Systolic blood 2022-09-01 21:27:00 136 mm[Hg] Method [facility] Hospital pressure Diastolic blood 2022-09-01 21:27:00 92 mm[Hg] [facility] Hospital pressure Heart rate 2022-09-01 21:27:00 95 /min [facility] Body weight 2022-09-01 21:27:00 86.909 kg [facility] BMI 2022-09-01 21:27:00 33.94 kg/m2 [facility] Body temperature 2022-08-04 21:03:00 36.44 Beena [facility] Respiratory rate 2022-08-04 21:03:00 20 /min [facility] Body height 2022-08-04 21:03:00 160 cm [facility] Oxygen saturation in 2022-08-04 21:03:00 99 /min [facility] Arterial blood by Pulse oximetry Systolic blood 2022-07-07 21:24:00 130 mm[Hg] [facility] pressure Diastolic blood 2022-07-07 21:24:00 85 mm[Hg] [facility] pressure Heart rate 2022-07-07 21:24:00 66 /min [facility] Body temperature 2022-07-07 21:24:00 36.67 Beena [facility] Respiratory rate 2022-07-07 21:24:00 20 /min [facility] Body height 2022-07-07 21:24:00 160 cm [facility] Body weight 2022-07-07 21:24:00 88.542 kg [facility] BMI 2022-07-07 21:24:00 34.58 kg/m2 [facility] Oxygen saturation in 2022-07-07 21:24:00 98 /min [facility] Arterial blood by Pulse oximetry Weight 2022-03-17 13:30:[facility] 2022-03-17 13:30:00 [facility] Temperature Oral (F) 2022-03-17 13:30:00 [facility].2 [facility] Heart Rate 2022-03-17 13:30:00 [facility] [place] Diastolic (mm Hg) 2022-03-17 13:30:00 Mem orial [facility] Systolic (mm Hg) 2022-03-17 13:30:00 Pedro rial [place] Weight 2022-03-03 18:50:00 [facility]ra Height 2022-03-03 18:50:00 [facility] Heart Rate 2022-03-03 18:50:00 [facility] [place] Diastolic (mm Hg) 2022-03-03 18:50:00 Mem orial [place] Systolic (mm Hg) 2022-03-03 18:50:00 Pedro rial [place] Weight 2022-03-03 15:00:00 [facility] [place] Height 2022-03-03 15:00:00 [facility] Heart Rate 2022-03-03 15:00:00 [facility] [place] Diastolic (mm Hg) 2022-03-03 15:00:00 Mem orial [place] Systolic (mm Hg) 2022-03-03 15:00:00 Pedro rial [facility]ra Weight 2021-10-07 13:50:00 [facility] [place] Height 2021-10-07 13:50:00 [facility] Temperature Oral (F) 2021-10-07 13:50:00 96.0 F [facility] Heart Rate 2021-10-07 13:50:00 [facility] [place] Diastolic (mm Hg) 2021-10-07 13:50:00 Mem orial [place] Systolic (mm Hg) 2021-10-07 13:50:00 Pedro rial [place] Weight 2021-09-23 15:20:00 [facility] [place] Height 2021-09-23 15:20:00 [facility] [place] Temperature Oral (F) 2021-09-23 15:20:00 97.6 F [facility] Heart Rate 2021-09-23 15:20:00 [facility] [place] Diastolic (mm Hg) 2021-09-23 15:20:00 Mem orial [place] Systolic (mm Hg) 2021-09-23 15:20:00 Pedro rial [place] Weight 2021-09-23 15:00:00 [facility] [place] Height 2021-09-23 15:00:00 [facility] [place] Temperature Oral (F) 2021-09-23 15:00:00 97.6 F [facility] Heart Rate 2021-09-23 15:00:00 [facility] [place] Diastolic (mm Hg) 2021-09-23 15:00:00 Mem orial [place] Systolic (mm Hg) 2021-09-23 15:00:00 Pedro rial Ezra Weight 2021-02-04 15:30:00 [facility] Height 2021-02-04 15:30:00 [facility] [place] Temperature Oral (F) 2021-02-04 15:30:00 98.4 F [facility] Heart Rate 2021-02-04 15:30:00 [facility] Diastolic (mm Hg) 2021-02-04 15:30:00 Mem orial [place] Systolic (mm Hg) 2021-02-04 15:30:00 Pedro rial [place] Weight 2020-07-23 16:00:00 [facility] [place] Height 2020-07-23 16:00:00 [facility] Heart Rate 2020-07-23 16:00:00 [facility] [place] Diastolic (mm Hg) 2020-07-23 16:00:00 Mem orial [place] Systolic (mm Hg) 2020-07-23 16:00:00 Pedro rial [place] Weight 2020-07-23 13:00:00 [facility] Height 2020-07-23 13:00:00 [facility] Temperature Oral (F) 2020-07-23 13:00:00 97.3 F [facility] Heart Rate 2020-07-23 13:00:00 [facility] [place] Diastolic (mm Hg) 2020-07-23 13:00:00 Mem orial [place] Systolic (mm Hg) 2020-07-23 13:00:00 Pedro rial [facility] Weight 2019-07-18 17:15:00 [facility] [place] Height 2019-07-18 17:15:00 [facility] Heart Rate 2019-07-18 17:15:00 [facility] Diastolic (mm Hg) 2019-07-18 17:15:00 Mem orial [place] Systolic (mm Hg) 2019-07-18 17:15:00 Pedro rial [place] Height 2015-05-09 12:57:01 [facility] [place] Weight 2015-05-09 12:57:01 [facility] [place] Temperature Oral (F) 2015-05-09 12:57:01 97.0 F [facility] Heart Rate 2015-05-09 12:57:01 [facility] Systolic (mm Hg) 2015-05-09 12:57:01 Pedro rial Ezra Diastolic (mm Hg) 2015-05-09 12:57:01 Mem orial [place] Weight 2015-04-12 18:09:11 [facility] Temperature Oral (F) 2015-04-12 18:09:11 98.2 F [facility] Systolic (mm Hg) 2015-04-12 18:09:11 Pedro rial [facility] Diastolic (mm Hg) 2015-04-12 18:09:11 Mem orial [place] Heart Rate 2015-04-12 18:09:11 [facility] Diastolic (mm Hg) 2015-03-22 14:02:42 Mem orial [place] Height 2015-03-22 14:02:42 [facility] [place] Weight 2015-03-22 14:02:42 [facility] [place] Temperature Oral (F) 2015-03-22 14:02:42 95.9 F [facility] Heart Rate 2015-03-22 14:02:42 [facility] Systolic (mm Hg) 2015-03-22 14:02:42 Pedro rial [place] Height 2015-02-15 19:44:20 [facility] [place] Weight 2015-02-15 19:44:20 [facility] [place] Systolic (mm Hg) 2015-02-15 19:44:20 Pedro rial [facility] Heart Rate 2015-02-15 19:44:20 [facility] Diastolic (mm Hg) 2015-02-15 19:44:20 Mem orial [place] Temperature Oral (F) 2015-02-15 19:44:20 97.3 F [facility] [place] Height 2015-01-10 15:02:41 [facility] Weight 2015-01-10 15:02:41 [facility] Temperature Oral (F) 2015-01-10 15:02:41 97.6 F [facility] Heart Rate 2015-01-10 15:02:41 [facility] [place] Systolic (mm Hg) 2015-01-10 15:02:41 Pedro rial [place] Diastolic (mm Hg) 2015-01-10 15:02:41 Mem orial [place] Weight 2014-12-10 17:08:41 [facility] Temperature Oral (F) 2014-12-10 17:08:41 97.0 F [facility] Systolic (mm Hg) 2014-12-10 17:08:41 Pedro rial Ezra Diastolic (mm Hg) 2014-12-10 17:08:41 [facility] Heart Rate 2014-12-10 17:08:41 [facility] Weight 2014-11-13 18:47:52 [facility] Temperature Oral (F) 2014-11-13 18:47:52 96.8 F [facility] Height 2014-11-13 18:47:52 [facility] Heart Rate 2014-11-13 18:47:52 [facility] Systolic (mm Hg) 2014-11-13 18:47:52 Pedro rial Ezra Diastolic (mm Hg) 2014-11-13 18:47:52 Mem orial Ezra Height 2014-10-26 16:57:21 [facility] Weight 2014-10-26 16:57:21 [facility] Heart Rate 2014-10-26 16:57:21 [facility] Systolic (mm Hg) 2014-10-26 16:57:21 Pedro rial Ezra Diastolic (mm Hg) 2014-10-26 16:57:21 [facility] Temperature Oral (F) 2014-10-26 16:57:21 98.1 F [facility] Height 2014-10-03 13:40:50 [facility] Weight 2014-10-03 13:40:50 [facility] Temperature Oral (F) 2014-10-03 13:40:50 97.2 F [facility] Heart Rate 2014-10-03 13:40:50 [facility] Systolic (mm Hg) 2014-10-03 13:40:50 Pedro rial Ezra Diastolic (mm Hg) 2014-10-03 13:40:50 [facility] Weight 2014-07-17 16:22:01 [facility] Systolic (mm Hg) 2014-07-17 16:22:01 Pedro rial [facility] Diastolic (mm Hg) 2014-07-17 16:22:01 Mem o[facility] Heart Rate 2014-07-17 16:22:01 [facility] Temperature Oral (F) 2014-07-17 16:22:01 97.5 F [facility] Height 2014-07-17 16:22:01 [facility] Weight 2014-03-24 19:05:21 [facility] Height 2014-03-24 19:05:21 [facility] Temperature Oral (F) 2014-03-24 19:05:21 98.9 F [facility] Heart Rate 2014-03-24 19:05:21 [facility] Systolic (mm Hg) 2014-03-24 19:05:21 Pedro rial [facility] Diastolic (mm Hg) 2014-03-24 19:05:21 Mem orial Ezra Procedures Procedure Date / Time Performing Clinician Source Performed CBC WITH PLATELET AND 2022-10-27 21:53[facility] DIFFERENTIAL COMPREHENSIVE METABOLIC 2022-10-27 21:53:00 [facility] PANEL HEMOGLOBIN A1C 2022-10-27 21:53:00 [facility] LIPID PANEL 2022-10-27 21:53:00 [facility] THYROID STIMULATING 2022-10-27 21:53:00 [facility] HORMONE VITAMIN D 25 HYDROXY 2022-10-27 21:53[facility] VITAMIN B12 LEVEL 2022-10-27 21:53:00 [facility] FERRITIN LEVEL 2022-10-27 21:53:00 [facility] MAGNESIUM, RBC 2022-10-27 21:53:00 [facility] CREATINE KINASE, TOTAL 2022-10-27 21:53:00 [facility] ([facility]) SPECIMEN STATUS REPORT 2022-10-27 21:53:00 [facility] URINALYSIS SCREEN AND 2022-09-02 18:31:00 [facility] MICROSCOPY, WITH REFLEX TO CULTURE COMPREHENSIVE METABOLIC 2022-09-02 18:31:00 [facility] PANEL CBC WITH PLATELET AND 2022-09-02 18:31:00 [facility] DIFFERENTIAL LIPASE LEVEL 2022-04-17 21:04:00 [facility] AMYLASE LEVEL 2022-04-17 21:04:00 [facility] FERRITIN LEVEL 2022-04-17 21:04:00 [facility] COMPREHENSIVE METABOLIC 2022-04-17 21:04:00 [facility] PANEL MAGNESIUM, RBC 2022-04-17 21:04:00 [facility] CBC WITH PLATELET AND 2022-04-17 21:04:00 [facility] DIFFERENTIAL VITAMIN B12 LEVEL 2022-04-17 21:04:00 [facility] VITAMIN D 25 HYDROXY 2022-04-17 21:04:00 [facility] LEVEL TTE COMPLETE, WO 2022-02-26 13:20:00 [facility] CONTRAST, W DOPPLER ([id number]) XR HIPS 2 VW BILATERAL 2022-02-10 08:52:00 Heidi Cantu [facility] MAGNESIUM 2022-02-10 07:15:00 Jony Beach [facility] BASIC METABOLIC PANEL 2022-02-10 07:15:00 Jony Beach [facility] (NA, K, CL, CO2, Medical Branch GLUCOSE, BUN, CREATININE, CA) CBC WITH DIFF 2022-02-10 07:15:00 Jony Beach [facility] CONSENT/REFUSAL FOR 2022-02-10 06:56:38 [facility] ECG 12-LEAD 2022-01-06 22:46:24 [facility] COMPREHENSIVE METABOLIC 2021-12-09 20:58:00 [facility] PANEL MAGNESIUM, RBC 2021-12-09 20:58:00 [facility] CBC WITH PLATELET AND 2021-12-09 20:58:00 [facility] DIFFERENTIAL FERRITIN LEVEL 2021-12-09 20:58:00 [facility] PREALBUMIN LEVEL 2021-12-09 20:58:00 [facility] BASIC METABOLIC PANEL 2021-11-25 20:32:00 Elva Hayes [facility] (NA, K, CL, CO2, Medical Branch GLUCOSE, BUN, CREATININE, CA) COMP. METABOLIC PANEL 2021-11-13 16:03:00 Corey Morales [facility] ([id number]) Medical Branch CBC WITH DIFF 2021-11-13 16:03:00 Singer [facility] LACTIC ACID WHOLE BLOOD 2021-11-13 16:03:00 Singer [facility] NOTICE OF PRIVACY 2021-11-13 15:40:39 Doctor Unassigned, No [facility] PRACTICES Name [facility] CONSENT/REFUSAL FOR 2021-11-13 15:40:27 [facility]igned, [facility] Name [facility] COMPREHENSIVE METABOLIC 2021-11-11 22:39:00 Payan [facility] PANEL FERRITIN LEVEL 2021-11-11 22:39:00 Payan [facility] CBC WITH PLATELET AND 2021-11-11 22:39:[facility]FFER[facility] MAGNESIUM LEVEL 2021-11-11 22:39:00 Schuyler [facility] AMYLASE LEVEL 2021-11-11 22:39:00 Schuyler [facility] LIPASE LEVEL 2021-11-11 22:39:00 Schuyler [facility] PREALBUMIN LEVEL 2021-11-11 22:39:00 [facility] COMPRE[facility]IVE [facility]ABOLIC 2021-10-08 21:03:00 Schuyler [facility] PANEL LIPASE LEVEL 2021-10-08 21:03:00 Schuyler [facility] AMYLASE LEVEL 2021-10-08 21:03:[facility] WITH [facility]LET AND 2021-10-08 21:03:[facility] DIFFERENTIAL FERRITIN LEVEL 2021-10-08 21:03:00 Schuyler [facility] VITAMIN D 25 HYDROXY 2021-10-08 21:03:00 Schuyler [facility] LEVEL COMPREHENSIVE METABOLIC 2021-09-08 21:58:00 Schuyler [facility] PANEL MAGNESIUM, RBC 2021-09-08 21:58:00 Schuyler [facility] AMYLASE LEVEL 2021-09-08 [facility]:58[facility] 2021-09-08 21:58:00 Schuyler [facility] GGT 2021-09-08 21:58:00 Schuyler [facility] CBC WITH PLATELET AND 2021-09-08 21:58:00 [facility] DIFFERENTIAL FERRITIN LEVEL 2021-09-08 21:58:00 Mike Payan [facility] COMPREHENSIVE METABOLIC 2021-07-30 21:18[facility]NESI[facility], RBC 2021-07-30 21:18:00 Schuyler [facility] LIPID PANEL 2021-07-30 21:18:00 Schuyler [facility] THYROID STIMULATING 2021-07-30 21:18:00 [facility] HORMONE VITAMIN B12 LEVEL 2021-07-30 21:18:00 Schuyler [facility] HEMOGLOBIN A1C 2021-07-30 21:18:00 Payan [facility] INSULIN, RANDOM 2021-07-30 21:18:00 [facility] FERR[facility]IN L[facility] 2021-07-30 [facility] SPECIMEN [facility]US REPORT 2021-07-30 21:18:00 [facility] COVID-19 (ID NOW RAPID 2020-06-12 15:48:00 [facility] Medical Branch URINALYSIS 2020-06-12 14:51:00 Corey Morales [facility] CT CHEST PULMONARY 2020-06-12 14:04:40 Corey Morales [facility] ANGIOGRAM Medical Branch LACTIC ACID WHOLE BLOOD 2020-06-12 13:41:00 Corey Morales [facility] TROPONIN I 2020-06-12 13:09:00 Singer [facility] COMP. METABOLIC PANEL 2020-06-12 13:09:00 [facility] ([id number]) Medical Branch CBC WITH DIFF 2020-06-12 13:09:00 Singer [facility] PROTHROMBIN TIME / INR 2020-06-12 13:09:00 [facility] EKG-12 LEAD 2020-06-12 13:02:30 Singer [facility] CONSENT/REFUSAL FOR 2020-06-12 12:32:39 Doctor Unassigned, No [facility] [place] [facility] Name Medical Branch [id number] 2019-12-15 00:00:00 SUBKA [facility] [id number] 2019-12-12 00:00:00 MALAD [facility] Plan of Care Planned Activity Planned Date Details Comments Source Future Scheduled 2022-11-25 COVID-19 VACCINE (#1) [facility] Test 14:43:29 [code = COVID-19 VACCINE (#1)] Future Scheduled 2022-11-[address] [facility] Test 14:43:29 [code = COLONOSCOPY SCREENING] Future Scheduled 2022-11-25 Pneumococcal Vaccine: [facility] Test 14:43:29 Pediatrics (0 to 5 Years) and At-Risk Patients (6 to 64 Years) (1 - PCV) [code = Pneumococcal Vaccine: Pediatrics (0 to 5 Years) and At-Risk Patients (6 to 64 Years) (1 - PCV)] Future Scheduled 2022-11-25 Hepatitis C screening [facility] Test 14:43:29 (procedure) [code = 208509226] Future Scheduled 2022-11-25 Screening for [facility] Test 14:43:29 malignant neoplasm of cervix (procedure) [code = 319342807] Future Scheduled 2022-11-25 BREAST CANCER [facility] Test 14:43:29 SCREENING [code = BREAST CANCER SCREENING] Future Scheduled 2022-09-29 HEPATITIS B VACCINES [facility] Test 08:53:11 (1 of 3 - 3-dose series) [code = HEPATITIS B VACCINES (1 of 3 - 3-dose series)] Future Scheduled 2022-09-29 COVID-19 VACCINE (#1) [facility] Test 08:53:11 [code = COVID-19 VACCINE (#1)] Future Scheduled 2022-09-[address] [facility] Test 08:53:11 [code = COLONOSCOPY SCREENING] Future Scheduled 2022-09-29 Pneumococcal Vaccine: [facility] Test 08:53:11 Pediatrics (0 to 5 Years) and At-Risk Patients (6 to 64 Years) (1 - PCV) [code = Pneumococcal Vaccine: Pediatrics (0 to 5 Years) and At-Risk Patients (6 to 64 Years) (1 - PCV)] Future Scheduled 2022-09-29 Hepatitis C screening [facility] Test 08:53:11 (procedure) [code = 796698287] Future Scheduled 2022-09-29 Screening for [facility] Test 08:53:11 malignant neoplasm of cervix (procedure) [code = 114664937] Future Scheduled 2022-09-29 BREAST CANCER [facility] Test 08:53:11 SCREENING [code = BREAST CANCER SCREENING] Future Scheduled 2022-07-16 HEPATITIS B VACCINES [facility] Test 09:02:32 (1 of 3 - 3-dose series) [code = HEPATITIS B VACCINES (1 of 3 - 3-dose series)] Future Scheduled 2022-07-16 COVID-19 VACCINE (#1) [facility] Test 09:02:32 [code = COVID-19 VACCINE (#1)] Future Scheduled 2022-07-[address] [facility] Test 09:02:32 [code = COLONOSCOPY SCREENING] Future Scheduled 2022-07-16 Pneumococcal Vaccine: [facility] Test 09:02:32 Pediatrics (0 to 5 Years) and At-Risk Patients (6 to 64 Years) (1 - PCV) [code = Pneumococcal Vaccine: Pediatrics (0 to 5 Years) and At-Risk Patients (6 to 64 Years) (1 - PCV)] Future Scheduled 2022-07-16 Hepatitis C screening [facility] Test 09:02:32 (procedure) [code = 556969533] Future Scheduled 2022-07-16 Screening for [facility] Test 09:02:32 malignant neoplasm of cervix (procedure) [code = 368869628] Future Scheduled 2022-07-16 BREAST CANCER [facility] Test 09:02:32 SCREENING [code = BREAST CANCER SCREENING] Future Scheduled 2022-07-16 INFLUENZA VACCINE [facility] Test 09:02:32 [code = INFLUENZA VACCINE] Encounters Start End Encounter Admission Attending Care Care Encounter Source Date/Time Date/Time Type Type Clinicians Facility Department ID 2022-11-26 Outpatient [id number] Memoria 20:38:38 [id number]- 9 l -979D-1A0 [id number] [facility] [id number] D00 [id number] 2022-11-24 Outpatient [id number] Memoria 18:54:25 L98D-[id number] 8A-03C1-S6V 58A-44B9- B l -P4BP-906 [id number] Ezra [id number] 58C [id number] 2022-11-17 Outpatient [id number] [facility] 19:03:00 DBE9-47E1 E9-11R2-N29 BE9-47E1- A l -L561-0G1 7-1U5Q9L34G 307-0D5D6F Ezra [id number] [id number] 2022-10-27 Outpatient [id number] Memoria 18:38:52 4N86-9T2C 36-2V4T-217 D99-8X4Q- 8 l -8210-12F 0-40N5MY1H8 210-12F3CC Ezra [id number] 2022-10-23 Outpatient [facility] [id number] [place] 09:48[id number] [facility] 2022-09-29 Outpatient [id number] ADBA-E [facility] 18:48:58 BG72-1C4X 17-3E9J-A50 O51-2V1H- A l -N54B-4E4 [id number] Ezra [id number] 2022-09-29 Outpatient [facility] [id number] [place] 12:48:[id number] [facility] 2022-09-22 Outpatient [facility] [id number] [place] 09:[id number] [facility] 2022-09-21 Outpatient [facility] [id number] [place] 11:[id number] [facility] 2022-08-06 Outpatient [facility] [id number] [facility] 12:53:43 0909 [facility] 2022-08-04 Outpatient [id number] Memoria 18:19:09 6070-445C 70-445C-B6C 070-445C- B l -W1TN-QDT E-[id number] 6CE-ACEEDE Ezra [id number] 6B3 54B6B3 2022-07-24 Outpatient [facility] [id number] [place] 09:[place]:[id number] [facility] 2022-07-23 Outpatient [facility] [id number] [place] 10:[place]:[id number] [facility] 2022-07-22 Outpatient [facility] [id number] [place] 16:[id number] [facility] 2022-07-16 Outpatient [facility] [id number] [place] 16:[id number] [facility] 2022-07-07 Outpatient [id number] Memoria 16:27:12 [id number]-BC5 6Z5-4559- B l -UG63-997 [id number] Ezra [id number] 2021-09-05 Emergency [facility] [id number] [facility] Outpatient [id number] Memoria 16:04:55 23AE-45EB AE-45EB-BF3 3AE-45EB- B l -MV4M-9B2 D-0N17FB6N7 C6X-0S08LF Ezra [id number] 5E6 9C85E6 2021-07-02 Outpatient [id number]-D Mem[facility] 15:47:42 QN14-7V1C 72-8P5Z-7CZ K35-1B7O- 9 l -9CFE-0FA E-4TPQZFA56 CFE-0FACBF Ezra [id number] 2020-01-02 Outpatient BANKLinda, MHSE MHSE 7525 11:21:24 [facility] 2019-12-09 Inpatient HCACL JAMIE [id number] [facility] 09:40:00 60 [facility] 2022-11-24 2022-11-24 Telemedici Schuyler, 1.2.840.1 [id number] Methodi 15:30:00 17:14:35 ne Zenithe 24042.1.1 116 Felicita 3.430.2.7 Hospit a .3.450448 l .8 2022-11-24 2022-11-24 Outpatient SCHUYLER [facility] [id number] [place] 00:00:00 00:00:00 ZENITHE [address] 2022-11-17 2022-11-17 Virtual Zelda Carrera 1.2.840.1 [id number] Methodi 16:45:00 17:11:[address] Care 3.430.2.7 Hospit a .3.419917 l .8 2022-11-17 2022-11-17 Telephone Schuyler, 1.2.840.1 [id number] Methodi 00:00:00 00:00:00 Zenithe 27609.1.1 016 Felicita 3.430.2.7 Hospit a .3.768820 l .8 2022-11-17 2022-11-17 Outpatient [facility] [id number] [place] 00:00:00 00:00:[address] 2022-11-05 2022-11-05 Virtual Allen, 1.2.840.1 [id number] 37571 Methodi 11:45:00 14:53:52 Urgent Jennifer 88929.1.[address] Care Bell 3.430.2.7 Hospit a .3.075370 l .8 2022-11-05 2022-11-05 Outpatient [facility] [id number] [place] 00:00:00 00:00:[address] 2022-11-02 2022-11-02 Orders Schuyler, 1.2.840.1 [id number] 5498 Methodi 00:00:00 00:00:00 Only Zenithe 43722.1.1 091 Felicita 3.430.2.7 Hospit a .3.537925 l .8 2022-10-27 2022-10-27 Office Payan, 1.2.840.1 [id number] 2635 Methodi 16:00:00 16:49:33 Visit Zenithe 82008.1.1 090 Felicita 3.430.2.7 Hospit a .3.835614 l .8 2022-10-27 2022-10-27 Travel 1.2.840.1 1.2.139.903 1655 [id number] Methodi 00:00:00 00:00:[address] 3.430.2.7 0.2.7.3.698 Ho spita .3.872956 084.8 l .8 2022-10-27 2022-10-27 Outpatient SCHUYLER, [facility] [id number] [place] 00:00:00 00:00:[address] 2022-09-29 2022-09-29 Office Payan, 1.2.840.1 [id number] 9318 Methodi 16:15:00 17:10:38 Visit Zenshekhar 46497.1.1 051 Felicita 3.430.2.7 Hospit a .3.242430 l .8 2022-09-29 2022-09-29 Outpatient SCHUYLER, [facility] [id number] [place] 00:00:00 00:00:[address] ZEN[address]HE [address] 2022-09-23 2022-09-23 Outpatient [facility], [facility] [id number] [place] 13:00:00 13:00:00 [facility] 2022-09-10 2022-09-10 Outpatient SUZY, [facility] [id number] [place] 14:00:00 14:00:00 HOLGER Healshayla 2022-09-04 2022-09-04 Refill Payan, 1.2.840.1 [id number] Methodi 00:00:00 00:00:00 Zenithe 36647.1.1 224 Felicita 3.430.2.7 Hospit a .3.401954 l .8 2022-09-04 2022-09-04 Refill Payan, 1.2.840.1 [id number] 1865 Methodi 00:00:00 00:00:00 Zenithe 25570.1.1 224 Felicita 3.430.2.7 Hospit a .3.912753 l .8 2022-09-01 2022-09-01 Office Payan, 1.2.840.1 [id number] 5829 Methodi 16:00:00 17:14:28 Visit Zenithe 55678.1.1 009 Felicita 3.430.2.7 Hospit a .3.662968 l .8 2022-09-01 2022-09-01 Office Payan, 1.2.840.1 [id number] 8715 Methodi 16:00:00 17:14:28 Visit Zenithe 39954.1.1 009 Felicita 3.430.2.7 Hospit a .3.504982 l .8 2022-09-01 2022-09-01 Travel 1.2.840.1 1.2.610.143 3096 080045 Methodi 00:00:00 00:00:[address] 3.430.2.7 0.2.7.3.698 Ho spita .3.391266 084.8 l .8 2022-09-01 2022-09-01 Travel 1.2.840.1 1.2.556.021 0072 833473 Methodi 00:00:00 00:00:[address] 3.430.2.7 0.2.7.3.698 Ho spita .3.459266 084.8 l .8 2022-08-27 2022-08-27 Refill Payan, 1.2.840.1 [id number] 9951 Methodi 00:00:00 00:00:00 Zenithe 83125.1.1 390 Felicit[place] 3.430.2.7 Hospit a .3.412171 l .8 2022-08-27 2022-08-27 Refill Payan, 1.2.840.1 [id number] 9824 Methodi 00:00:00 00:00:00 Zenithe 93984.1.1 390 Felicit[place] 3.430.2.7 Hospit a .3.588609 l .8 2022-08-10 2022-08-10 Orders Payan, 1.2.840.1 [id number] 9090 Methodi 00:00:00 00:00:00 Only Zenithe 55231.1.1 018 Felicita 3.430.2.7 Hospit a .3.725372 l .8 2022-08-10 2022-08-10 Orders Payan, 1.2.840.1 [id number] 4481 Methodi 00:00:00 00:00:00 Only Zenithe 55228.1.1 018 Felicita 3.430.2.7 Hospit a .3.698633 l .8 2022-08-04 2022-08-04 Office Payan, 1.2.840.1 [id number] 8449 Methodi 16:00:00 16:51:14 Visit Zenithe 30807.1.1 966 Felicita 3.430.2.7 Hospit a .3.342807 l .8 2022-08-04 2022-08-04 Office Payan, 1.2.840.1 [id number] 5981 Methodi 16:00:00 16:51:14 Visit Zenithe 84163.1.1 966 Felicita 3.430.2.7 Hospit a .3.577372 l .8 2022-08-04 2022-08-04 Travel 1.2.840.1 1.2.895.317 3968 124973 Methodi 00:00:00 00:00:[address] 3.430.2.7 0.2.7.3.698 Ho spita .3.617020 084.8 l .8 2022-08-04 2022-08-04 Travel 1.2.840.1 1.2.837.156 4458 238917 Methodi 00:00:00 00:00:[address] 3.430.2.7 0.2.7.3.698 Ho spita .3.655006 084.8 l .8 2022-07-23 2022-07-23 Office Brady, UTP 6400 1.2.840.114 46797 3363 [place] 10:15:00 13:07:[address] 350.1.13.58 Health 9.2.7.2.686 989.9488170 3 2022-07-07 2022-07-07 Office Payan, 1.2.840.1 [id number] 1546 Methodi 16:00:00 16:30:00 Visit Alberithe 90740.1.1 909 Felicita 3.430.2.7 Hospit a .3.998018 l .8 2022-07-07 2022-07-07 Office Payan, 1.2.840.1 [id number] 7383 Methodi 16:00:00 16:30:00 Visit Alberithe 35721.1.1 909 Felicita 3.430.2.7 Hospit a .3.561883 l .8 2022-07-07 2022-07-07 Travel 1.2.840.1 1.2.881.832 1368 879650 Methodi 00:00:00 00:00:[address] 3.430.2.7 0.2.7.3.698 Ho spita .3.745308 084.8 l .8 2022-07-07 2022-07-07 Travel 1.2.840.1 1.2.643.291 9357 520576 Methodi 00:00:00 00:00:[address] 3.430.2.7 0.2.7.3.698 Ho spita .3.971145 084.8 l .8 2022-06-13 2022-06-13 Orders Payan, 1.2.840.1 [id number] 5116 Methodi 00:00:00 00:00:00 Only Zenithe 15320.1.1 607 Felicit[place] 3.430.2.7 Hospit a .3.311905 l .8 2022-06-13 2022-06-13 Orders Payan, 1.2.840.1 [id number] 6735 Methodi 00:00:00 00:00:00 Only Zenithe 82279.1.1 607 Felicit[place] 3.430.2.7 Hospit a .3.100279 l .8 2022-06-09 2022-06-09 Office Payan, 1.2.840.1 [id number] 7207 Methodi 16:30:00 17:54:29 Visit [facility] 37623.1.1 680 Felicita 3.430.2.7 Hospit a .3.662567 l .8 2022-06-09 2022-06-09 Office Payan, 1.2.840.1 [id number] 947315 7438 Methodi 16:30:00 17:54:29 Visit [facility] 74230.1.1 680 [place]icit[place] 3.430.2.7 Hospit a .3.922240 l .8 2022-06-09 2022-06-09 Travel 1.2.840.1 1.2.685.454 7351 570321 Methodi 00:00:00 00:00:[address] 3.430.2.7 0.2.7.3.698 Ho spita .3.795395 084.8 l .8 2022-06-09 2022-06-09 Travel 1.2.840.1 1.2.723.026 6438 770248 Methodi 00:00:00 00:00:[address] 3.430.2.7 0.2.7.3.698 Ho spita .3.920804 084.8 l .8 2022-06-01 2022-06-01 Refill Payan, 1.2.840.1 [id number] 123435 1629 Methodi 00:00:00 00:00:00 [facility] 27436.1.1 076 Felicit[place] 3.430.2.7 Hospit a .3.762171 l .8 2022-06-01 2022-06-01 Refill Payan, 1.2.840.1 [id number] 035354 4070 Methodi 00:00:00 00:00:00 [facility] 10142.1.1 076 [place] 3.430.2.7 Hospit a .3.239844 l .8 2022-05-12 2022-05-12 Office Payan, 1.2.840.1 [id number] 450372 7112 Methodi 16:15:00 16:51:15 Visit [facility] 79445.1.1 528 [place]icit[place] 3.430.2.7 Hospit a .3.235789 l .8 2022-05-12 2022-05-12 Office Payan, 1.2.840.1 [id number] 591432 9471 Methodi 16:15:00 16:51:15 Visit [facility] 92079.1.1 528 [place] 3.430.2.7 Hospit a .3.758169 l .8 2022-05-12 2022-05-12 Travel 1.2.840.1 1.2.903.595 5875 911649 Methodi 00:00:00 00:00:[address] 3.430.2.7 0.2.7.3.698 Ho spita .3.214884 084.8 l .8 2022-05-12 2022-05-12 Travel 1.2.840.1 1.2.243.801 0347 817845 Methodi 00:00:00 00:00:[address] 3.430.2.7 0.2.7.3.698 Ho spita .3.443945 084.8 l .8 2022-04-19 2022-04-19 Orders Payan, 1.2.840.1 [id number] 752995 0306 Methodi 00:00:00 00:00:00 Only [facility]ithe 46191.1.1 022 [place]icit[place] 3.430.2.7 Hospit a .3.937066 l .8 2022-04-19 2022-04-19 Orders Payan, 1.2.840.1 [id number] 888875 8232 Methodi 00:00:00 00:00:00 Only [facility] 61303.1.1 022 [place] 3.430.2.7 Hospit a .3.483067 l .8 2022-04-17 2022-04-17 Office Payan, 1.2.840.1 [id number] 852032 3768 Methodi 15:00:00 16:01:39 Visit [facility] 76519.1.1 653 [place] 3.430.2.7 Hospit a .3.883106 l .8 2022-04-17 2022-04-17 Office Payan, 1.2.840.1 [id number] 966005 3408 Methodi 15:00:00 16:01:39 Visit [facility] 71836.1.1 653 [place]icit[place] 3.430.2.7 Hospit a .3.506104 l .8 2022-04-17 2022-04-17 Travel 1.2.840.1 1.2.582.642 3142 007025 Methodi 00:00:00 00:00:[address] 3.430.2.7 0.2.7.3.698 Ho spita .3.240930 084.8 l .8 2022-04-17 2022-04-17 Travel 1.2.840.1 1.2.290.986 3502 885167 Methodi 00:00:00 00:00:[address] 3.430.2.7 0.2.7.3.698 Ho spita .3.344588 084.8 l .8 2022-04-13 2022-04-13 Refill Payan, 1.2.840.1 [id number] 924720 1923 Methodi 00:00:00 00:00:00 [facility] 97515.1.1 877 [place] 3.430.2.7 Hospit a .3.843625 l .8 2022-04-13 2022-04-13 Refill Payan, 1.2.840.1 [id number] 689020 3103 Methodi 00:00:00 00:00:00 [facility] 44765.1.1 877 [place] 3.430.2.7 Hospit a .3.456506 l .8 2022-04-02 2022-04-02 Refill Payan, 1.2.840.1 [id number] 686442 8438 Methodi 00:00:00 00:00:00 [facility] 22458.1.1 916 [place] 3.430.2.7 Hospit a .3.020193 l .8 2022-04-02 2022-04-02 Refill Payan, 1.2.840.1 580635331 194920 4030 Methodi 00:00:00 00:00:00 Zenithe 87302.1.1 916 Felicita 3.430.2.7 Hospit a .3.514799 l .8 2022-03-29 2022-03-29 Refill Payan, 1.2.840.1 [id number] 226951 5777 Methodi 00:00:00 00:00:00 Zenithe 47968.1.1 876 Felicita 3.430.2.7 Hospit a .3.933741 l .8 2022-03-29 2022-03-29 Refill Payan, 1.2.840.1 351913650 105893 7671 Methodi 00:00:00 00:00:00 Zenithe 48108.1.1 876 Felicita 3.430.2.7 Hospit a .3.416807 l .8 2022-03-21 2022-03-21 Refill Payan, 1.2.840.1 865837502 881534 1683 Methodi 00:00:00 00:00:00 Zenithe 53208.1.1 922 Felicita 3.430.2.7 Hospit a .3.052851 l .8 2022-03-21 2022-03-21 Refill Payan, 1.2.840.1 546397198 962671 4043 Methodi 00:00:00 00:00:00 Zenithe 87062.1.1 922 Felicita 3.430.2.7 Hospit a .3.063255 l .8 2022-03-17 2022-03-17 Outpatient PRL - PRL - [id number] eClinic 08:30:00 08:30:00 [facility] 2022-03-15 2022-03-15 Refill Payan, 1.2.840.1 [id number] 110424 7477 Methodi 00:00:00 00:00:00 Zenithe 28475.1.1 185 Felicita 3.430.2.7 Hospit a .3.095787 l .8 2022-03-15 2022-03-15 Refill Payan, 1.2.840.1 372137142 473004 6667 Methodi 00:00:00 00:00:00 Zenithe 08122.1.1 185 Felicita 3.430.2.7 Hospit a .3.369662 l .8 2022-03-13 2022-03-13 Office Payan, 1.2.840.1 717413838 712880 1104 Methodi 14:15:00 14:57:03 Visit Zenithe 10231.1.1 070 Felicita 3.430.2.7 Hospit a .3.328378 l .8 2022-03-13 2022-03-13 Office Payan, 1.2.840.1 456792951 783706 1513 Methodi 14:15:00 14:57:03 Visit Zenithe 67297.1.1 070 Felicita 3.430.2.7 Hospit a .3.987748 l .8 2022-03-13 2022-03-13 Travel 1.2.840.1 1.2.287.324 9210 634252 Methodi 00:00:00 00:00:[address] 3.430.2.7 0.2.7.3.698 Ho spita .3.343941 084.8 l .8 2022-03-13 2022-03-13 Travel 1.2.840.1 1.2.877.538 8908 726407 Methodi 00:00:00 00:00:[address] 3.430.2.7 0.2.7.3.698 Ho spita .3.554273 084.8 l .8 2022-03-06 2022-03-06 Refill Payan, 1.2.840.1 377728972 159373 6860 Methodi 00:00:00 00:00:00 Zenithe 27896.1.1 748 Felicita 3.430.2.7 Hospit a .3.962547 l .8 2022-03-06 2022-03-06 Refill Payan, 1.2.840.1 776572180 140247 7828 Methodi 00:00:00 00:00:00 Zenithe 54426.1.1 552 Felicita 3.430.2.7 Hospit a .3.380903 l .8 2022-03-06 2022-03-06 Refill Payan, 1.2.840.1 273556753 722627 6959 Methodi 00:00:00 00:00:00 Zenithe 98433.1.1 748 Felicita 3.430.2.7 Hospit a .3.403537 l .8 2022-03-06 2022-03-06 Refill Payan, 1.2.840.1 633339017 231971 1764 Methodi 00:00:00 00:00:00 Zenithe 01940.1.1 552 Felicit[place] 3.430.2.7 Hospit a .3.555125 l .8 2022-03-05 2022-03-05 Refill Payan, 1.2.840.1 715712223 334125 1974 Methodi 00:00:00 00:00:00 Zenithe 74763.1.1 538 Felicit[place] 3.430.2.7 Hospit a .3.050524 l .8 2022-03-05 2022-03-05 [facility], 1.2.840.1 [id number] 243313 5090 Methodi 00:00:00 00:00:00 Zenithe 44896.1.1 538 Felicita 3.430.2.7 Hospit a .3.227710 l .8 2022-03-03 2022-03-03 Outpatient PRL - PRL - 344315 eClinic 13:50:00 13:50:00 Rheumatol Rheumatolog alWorks ogy y [facility] 2022-03-03 2022-03-03 Outpatient PRL - PRL - [id number] eClinic 10:00:00 10:00:00 Rheumatol Rheumatolog alWorks ogy y [facility] 2022-02-26 2022-02-26 [facility], 1.2.840.1 [id number] 00180 77710 Methodi 07:22:42 23:59:00 Encounter Zenithe 28647.1.1 042 Felicita 3.430.2.7 Hospit a .3.730568 l .8 2022-02-26 2022-02-26 [facility], 1.2.840.1 [id number] 12359 79139 Methodi 07:22:42 23:59:00 Encounter Zenithe 60899.1.1 042 Felicita 3.430.2.7 Hospit a .3.380953 l .8 2022-02-26 2022-02-26 Travel 1.2.840.1 1.2.460.556 8386 846019 Methodi 00:00:00 00:00:[address] 3.430.2.7 0.2.7.3.698 Ho spita .3.951508 084.8 l .8 2022-02-26 2022-02-26 Travel 1.2.840.1 1.2.676.894 1045 486279 Methodi 00:00:00 00:00:[address] 3.430.2.7 0.2.7.3.698 Ho spita .3.274118 084.8 l .8 2022-02-25 2022-02-25 Outpatient R VANN, [facility] 81351 44415 Univers 15:00:00 15:00:00 ROHAN [facility] 2022-02-24 2022-02-24 Transcribe Payan, 1.2.840.1 [id number] 503 [id number] Methodi 00:00:00 00:00:00 Orders Zenithe 48311.1.1 513 Felicita 3.430.2.7 Hospit a .3.975874 l .8 2022-02-24 2022-02-24 Transcribe Payan, 1.2.840.1 067483760 092 2733201 Methodi 00:00:00 00:00:00 Orders Zenithe 72014.1.1 513 Felicita 3.430.2.7 Hospit a .3.424090 l .8 2022-02-20 2022-02-20 Outpatient R LAZARO, [facility] [id number] 820 Univers 00:00:00 00:00:00 [facility]LOSGLEN [facility] 2022-02-20 2022-02-20 Refill Payan, 1.2.840.1 [id number] 784932 3024 Methodi 00:00:00 00:00:00 Zenithe 77209.1.1 845 Felicita 3.430.2.7 Hospit a .3.011183 l .8 2022-02-20 2022-02-20 Refill Payan, 1.2.840.1 629764208 128378 7823 Methodi 00:00:00 00:00:00 Zenithe 24053.1.1 845 Felicita 3.430.2.7 Hospit a .3.464005 l .8 2022-02-11 2022-02-11 Office Payan, 1.2.840.1 288613378 108020 5750 Methodi 14:30:00 15:42:47 Visit Zenithe 26592.1.1 842 Felicita 3.430.2.7 Hospit a .3.187929 l .8 2022-02-11 2022-02-11 Office Schuyler, 1.2.840.1 204525593 409419 3956 Methodi 14:30:00 15:42:47 Visit Zenithe 27870.1.1 842 Felicita 3.430.2.7 Hospit a .3.143265 l .8 2022-02-11 2022-02-11 Travel 1.2.840.1 1.2.534.797 6441 141190 Methodi 00:00:00 00:00:[address] 3.430.2.7 0.2.7.3.698 Ho spita .3.422388 084.8 l .8 2022-02-11 2022-02-11 Travel 1.2.840.1 1.2.169.468 0714 588629 Methodi 00:00:00 00:00:[address] 3.430.2.7 0.2.7.3.698 Ho spita .3.250532 084.8 l .8 2022-02-10 2022-02-10 Emergency X RIDDLE, [facility] ERT [id number] 91 Univers 02:08:00 04:28:00 JONY maza of [facility] 2022-02-10 2022-02-10 Emergency [place], [facility] 1.2.984.426 8660 0172 Univers 02:08:00 04:28:00 Jony COTTO 350.1.13.10 ity [facility] 4.2.7.2.686 [facility] [phone] [address] 2022-01-28 2022-01-28 Refill Payan, 1.2.840.1 [id number] 670187 8537 Methodi 00:00:00 00:00:00 Zenithe 23371.1.1 707 Felicit[place] 3.430.2.7 Hospit a .3.707196 l .8 2022-01-28 2022-01-28 Refill Payan, 1.2.840.1 109801701 544086 1289 Methodi 00:00:00 00:00:00 Zenithe 40031.1.1 036 Felicita 3.430.2.7 Hospit a .3.700452 l .8 2022-01-28 2022-01-28 Refill Payan, 1.2.840.1 033724012 485769 9564 Methodi 00:00:00 00:00:00 Zenithe 66836.1.1 707 [place] 3.430.2.7 Hospit a .3.858216 l .8 2022-01-28 2022-01-28 Refill Payan, 1.2.840.1 353266022 951863 3853 Methodi 00:00:00 00:00:00 Zenithe 89171.1.1 036 Felicita 3.430.2.7 Hospit a .3.312918 l .8 2022-01-25 2022-01-25 Orders Payan, 1.2.840.1 482475163 718764 5521 Methodi 00:00:00 00:00:00 Only Zenithe 27197.1.1 346 Felicita 3.430.2.7 Hospit a .3.334155 l .8 2022-01-25 2022-01-25 Orders Payan, 1.2.840.1 185368791 591580 0069 Methodi 00:00:00 00:00:00 Only Zenithe 94483.1.1 346 Felicit[place] 3.430.2.7 Hospit a .3.438445 l .8 2022-01-06 2022-01-06 Office Payan, 1.2.840.1 009069494 292119 7891 Methodi 15:00:00 15:55:56 Visit Zenithe 63452.1.1 423 [place]icit[place] 3.430.2.7 Hospit a .3.666032 l .8 2022-01-06 2022-01-06 Office Payan, 1.2.840.1 330603496 692438 8323 Methodi 15:00:00 15:55:56 Visit Zenithe 13113.1.1 423 [place] 3.430.2.7 Hospit a .3.160789 l .8 2022-01-06 2022-01-06 Travel 1.2.840.1 1.2.617.300 1363 431961 Methodi 00:00:00 00:00:[address] 3.430.2.7 0.2.7.3.698 Ho spita .3.402746 084.8 l .8 2022-01-06 2022-01-06 Travel 1.2.840.1 1.2.329.549 4566 158307 Methodi 00:00:00 00:00:[address] 3.430.2.7 0.2.7.3.698 Ho spita .3.781404 084.8 l .8 2021-12-31 2021-12-31 Refill Payan, 1.2.840.1 777870938 655088 0546 Methodi 00:00:00 00:00:00 Zenithe 67079.1.1 221 [place] 3.430.2.7 Hospit a .3.288822 l .8 2021-12-31 2021-12-31 Refill Payan, 1.2.840.1 247060831 706995 1544 Methodi 00:00:00 00:00:00 Zenithe 58376.1.1 221 [place] 3.430.2.7 Hospit a .3.044689 l .8 2021-12-12 2021-12-12 Refill Payan, 1.2.840.1 425057916 086246 9982 Methodi 00:00:00 00:00:00 Zenithe 42055.1.1 083 Felicita 3.430.2.7 Hospit a .3.476909 l .8 2021-12-12 2021-12-12 Refill Payan, 1.2.840.1 699272312 786759 7144 Methodi 00:00:00 00:00:00 Zenithe 15934.1.1 083 Felicita 3.430.2.7 Hospit a .3.225140 l .8 2021-12-09 2021-12-09 Office Payan, 1.2.840.1 580476609 257126 0941 Methodi 14:00:00 14:55:45 Visit Zenithe 98893.1.1 960 Felicita 3.430.2.7 Hospit a .3.829667 l .8 2021-12-09 2021-12-09 Office Payan, 1.2.840.1 930302273 699564 1142 Methodi 14:00:00 14:55:45 Visit Zenithe 00224.1.1 960 Felicita 3.430.2.7 Hospit a .3.060851 l .8 2021-12-09 2021-12-09 Travel 1.2.840.1 1.2.942.464 2138 425984 Methodi 00:00:00 00:00:[address] 3.430.2.7 0.2.7.3.698 Ho spita .3.485848 084.8 l .8 2021-12-09 2021-12-09 Refill Payan, 1.2.840.1 240915215 424946 5226 Methodi 00:00:00 00:00:00 Zenithe 18933.1.1 423 Felicit[place] 3.430.2.7 Hospit a .3.057636 l .8 2021-12-09 2021-12-09 Travel 1.2.840.1 1.2.559.433 6415 341278 Methodi 00:00:00 00:00:[address] 3.430.2.7 0.2.7.3.698 Ho spita .3.927019 084.8 l .8 2021-12-09 2021-12-09 Refill Payan, 1.2.840.1 784901876 409699 2626 Methodi 00:00:00 00:00:00 Zenithe 42160.1.1 423 Felicita 3.430.2.7 Hospit a .3.456485 l .8 2021-12-05 2021-12-05 Refill Payan, 1.2.840.1 501695004 169869 2831 Methodi 00:00:00 00:00:00 Zenithe 83081.1.1 407 [place] 3.430.2.7 Hospit a .3.056527 l .8 2021-12-05 2021-12-05 Refill Payan, 1.2.840.1 152682703 941208 8671 Methodi 00:00:00 00:00:00 Zenithe 89733.1.1 407 [place] 3.430.2.7 Hospit a .3.869751 l .8 2021-12-01 2021-12-01 Refill Payan, 1.2.840.1 529391495 162889 6720 Methodi 00:00:00 00:00:00 Zenithe 17336.1.1 076 Felicita 3.430.2.7 Hospit a .3.222582 l .8 2021-12-01 2021-12-01 Refill Payan, 1.2.840.1 814806060 074323 9890 Methodi 00:00:00 00:00:00 Zenithe 56569.1.1 076 Felicita 3.430.2.7 Hospit a .3.959096 l .8 2021-11-30 2021-11-30 Refill Payan, 1.2.840.1 349995894 913191 9332 Methodi 00:00:00 00:00:00 Zenithe 88991.1.1 749 Felicita 3.430.2.7 Hospit a .3.469102 l .8 2021-11-30 2021-11-30 Refill Payan, 1.2.840.1 947568038 590782 9036 Methodi 00:00:00 00:00:00 Zenithe 43856.1.1 749 Felicita 3.430.2.7 Hospit a .3.887617 l .8 2021-11-28 2021-11-28 [facility] 1.2.634.859 4269 8362 Univers 00:00:00 00:00:00 [facility] 350.1.13.10 it y of [place] 4.2.7.2.686 Mike as VINCE?BLEA [phone] [address] 2021-11-25 2021-11-25 Liaison Officer Jimenez, Ad[facility] Lab Main [facility] 1.2.8 40.114 [id number] Univers 14:15:00 14:30:00 Visit Nadir MccarthyGORDON 350.1.13.10 ity [facility] 4.2.7.2.[place] [phone] [facility] [address] [facility] 2021-11-25 2021-11-25 Outpatient [facility] [id number] 89450 Univers 14:15:00 14:15:[address] [facility] 2021-11-20 2021-11-20 Liaison Officer Jimenez, Adc Lab Main [facility] 1.2.8 40.114 [id number] Univers 13:30:00 13:45:00 Visit Nadir MccarthyGORDON 350.1.13.10 ity [facility] 4.[place].2.[place] [phone] [address] 2021-11-20 2021-11-20 [facility] [id number] 86948 Univers 13:30:00 13:30:00 NADIR [facility] 2021-11-18 2021-11-18 Orders Payan, 1.2.840.1 [id number] 133674 1826 Methodi 00:00:00 00:00:00 Only Zenithe 29332.1.1 809 Felicita 3.430.2.7 Hospit a .3.299258 l .8 2021-11-18 2021-11-18 Refill Payan, 1.2.840.1 082708845 860586 5521 Methodi 00:00:00 00:00:00 Zenithe 26981.1.1 648 Felicita 3.430.2.7 Hospit a .3.499354 l .8 2021-11-17 2021-11-17 Liaison Officer Jimenez, Alexa Lab Main [facility] 1.2.8 40.114 [id number] Univers 13:00:00 13:15:00 Visit Corey MoralesGORDON 350.1.13.10 ity of [facility] 4.2.7.2.686 [place] [facility] [phone] N[facility] [address] [facility] 2021-11-17 2021-11-17 Outpatient [facility] [id number] 667 Univers 13:00:00 13:00:00 COREY [facility] 2021-11-15 2021-11-15 Orders Payan, 1.2.840.1 [id number] [id number] 1951 Methodi 00:00:00 00:00:00 Only Zenithe 87703.1.1 998 Felicit[place] 3.430.2.7 Hospit a .3.451971 l .8 2021-11-15 2021-11-15 Orders Payan, 1.2.840.1 976968359 539344 5253 Methodi 00:00:00 00:00:00 Only Zenithe 55042.1.1 208 [place] 3.430.2.7 Hospit a .3.874638 l .8 2021-11-13 2021-11-[address] [facility] ERT [id number] Univers 09:46:00 13:34:00 [facility] 2021-11-13 2021-11-13 Emergency [facility] 1.2.445.567 8499 6375 Univers 09:46:00 13:34:00 Corey KIRTI 350.1.13.10 i ty of [facility] 4.2.7.2.[place] [phone] [place] 917834 [place] 2021-11-12 2021-11-12 Telephone Johnson, 1.2.840.1 [id number] 2100 646536 Methodi 00:00:00 00:00:[address] 3.430.2.7 Hospit a .3.499877 l .8 2021-11-11 2021-11-11 Office Payan, 1.2.840.1 519502882 808382 2229 Methodi 16:00:00 16:53:32 Visit Zenithe 05126.1.1 291 [place] 3.430.2.7 Hospit a .3.495719 l .8 2021-11-11 2021-11-11 Travel 1.2.840.1 1.2.201.624 0109 626591 Methodi 00:00:00 00:00:[address] 3.430.2.7 0.2.7.3.698 Ho spita .3.120008 084.8 l .8 2021-11-05 2021-11-05 Travel 1.2.840.1 1.2.502.195 8028 206894 Methodi 00:00:00 00:00:[address] 3.430.2.7 0.2.7.3.698 Ho spita .3.076016 084.8 l .8 2021-10-19 2021-10-19 Orders Payan, 1.2.840.1 [id number] 498165 2980 Methodi 00:00:00 00:00:00 Only Zenithe 72352.1.1 552 [place]icit[place] 3.430.2.7 Hospit a .3.134350 l .8 2021-10-08 2021-10-08 Office Payan, 1.2.840.1 860867325 283523 3116 Methodi 14:00:00 15:01:08 Visit Zenithe 21896.1.1 098 Felicita 3.430.2.7 Hospit a .3.658948 l .8 2021-10-08 2021-10-08 Travel 1.2.840.1 1.2.721.668 1985 561411 Methodi 00:00:00 00:00:[address] 3.430.2.7 0.2.7.3.698 spita .3.280303 084.8 l .8 2021-10-07 2021-10-07 Outpatient PRL - PRL - [id number] eClinic 07:50:00 07:50:00 Rheumatol Rheumatolog alWorks ogy y [facility] 2021-09-23 2021-09-23 Outpatient PRL - PRL - [id number] eClinic 11:22:00 11:22:00 Rheumatol Rheumatolog alWorks ogy y [facility] 2021-09-23 2021-09-23 Outpatient PRL - PRL - [id number] eClinic 09:20:00 09:20:00 Rheumatol Rheumatolog alWorks ogy y [facility] 2021-09-23 2021-09-23 Outpatient PRL - PRL - [id number] eClinic 09:00:00 09:00:00 Rheumatol Rheumatolog alWorks ogy y [facility] 2021-09-16 2021-09-16 Orders Payan, 1.2.840.1 [id number] 227997 5317 Methodi 00:00:00 00:00:00 Only Zenithe 06700.1.1 625 [place] 3.430.2.7 Hospit a .3.813969 l .8 2021-09-11 2021-09-11 Refill Payan, 1.2.840.1 404412490 318854 1364 Methodi 00:00:00 00:00:00 Zenithe 71803.1.1 425 [place] 3.430.2.7 Hospit a .3.465908 l .8 2021-09-11 2021-09-11 Telephone Payan, 1.2.840.1 [id number] 2100 954722 Methodi 00:00:00 00:00:00 Zenithe 26401.1.1 384 [place] 3.430.2.7 Hospit a .3.733540 l .8 2021-09-08 2021-09-08 Office Payan, 1.2.840.1 825554249 365857 3040 Methodi 16:00:00 17:44:03 Visit Zenithe 70858.1.1 057 [place]icita 3.430.2.7 Hospit a .3.872378 l .8 2021-09-08 2021-09-08 Travel 1.2.840.1 1.2.987.895 0875 870641 Methodi 00:00:00 00:00:[address] 3.430.2.7 0.2.7.3.698 Ho spita .3.711799 084.8 l .8 2021-09-01 2021-09-01 Travel 1.2.840.1 1.2.004.577 2697 110247 Methodi 00:00:00 00:00:[address] 3.430.2.7 0.2.7.3.698 Ho spita .3.323300 084.8 l .8 2021-08-22 2021-08-22 Refill Payan, 1.2.840.1 [id number] 675505 9877 Methodi 00:00:00 00:00:00 Zenithe 57968.1.1 892 [place]icit[place] 3.430.2.7 Hospit a .3.841728 l .8 2021-07-30 2021-07-30 Office Payan, 1.2.840.1 619808638 810178 0078 Methodi 16:00:00 17:04:56 Visit Zenithe 12727.1.1 441 [place] 3.430.2.7 Hospit a .3.614038 l .8 2021-07-30 2021-07-30 Outpatient [facility] GABRIELA - [id number] eClinic 15:56:00 15:56:00 Rheumatol Rheumatolog alWorks ogy y [facility] 2021-07-02 2021-07-02 Outpatient [facility] [id number] 948 [place] 00:00:00 00:00:00 ZENITHE [address] 2021-06-04 2021-06-04 [facility]patient [facility] [id number] 948 [place] 00:00:00 00:00:00 ZENITHE [address] 2021-05-07 2021-05-07 Outpatient PAYAN, [facility] [id number] 946 [place] 00:00:00 00:00:00 ZENITHE [address] 2021-04-09 2021-04-09 Outpatient PAYAN, [facility] [id number] 035 [place] 00:00:00 00:00:[address] 2021-03-13 2021-03-17 Outpatient PAYAN, [facility] [id number] 046 [place] 00:00:00 00:00:00 ZENITHE [address] 2021-02-12 2021-02-12 Outpatient PAYAN, [facility] [id number] 526 [place] 00:00:00 00:00:[address] ZENITHE [address] 2021-02-10 2021-02-10 Outpatient GABRIELA - GABRIELA - [id number] eClinic 07:09:00 07:09:00 Rheumatol Rheumatolog alWorks ogy y [facility] 2021-02-05 2021-02-05 Outpatient GABRIELA - GABRIELA - [id number] eClinic 13:24:00 13:24:00 Rheumatol Rheumatolog alWorks ogy y [facility] 2021-02-04 2021-02-04 Outpatient PRL - PRL - [id number] eClinic 10:30:00 10:30:00 Rheumatol Rheumatolog alWorks ogy y [facility] 2021-01-07 2021-01-07 Outpatient PAYAN, [facility] [id number] 448 [place] 00:00:00 00:00:00 ZENITHE [address] 2020-12-10 2020-12-10 Outpatient PAYAN, [facility] [id number] 801 [place] 00:00:00 00:00:00 ZENITHE [address] 2020-11-12 2020-11-12 Outpatient [facility] [id number] 586 [place] 00:00:00 00:00:[address] 2020-10-15 2020-10-15 Outpatient PAYAN, [facility] [id number] 147 [place] 00:00:00 00:00:00 ZENITHE [address] 2020-09-11 2020-09-11 Outpatient PAYAN, [facility] [id number] 918 [place] 00:00:00 00:00:00 ZENITHE 352 Method i 2020-08-15 2020-08-15 Outpatient PAYAN, [facility] [id number] 322 [place] 00:00:00 00:00:00 ZENITHE 702 Method i 2020-08-13 2020-08-14 Outpatient Lynnette HAMMOND, [facility] MED 7531 [facility] 16:31:00 11:53:00 YENI 2020-08-01 2020-08-01 Outpatient Rheumatol Rheumatolog 2 [id number] eClinic 16:22:00 16:22:00 ogy y [facility] 2020-07-23 2020-07-23 Outpatient PRL - PRL - [id number] eClinic 11:00:00 11:00:00 [facility] 2020-07-23 Outpatient PRL - PRL - [id number] eClinic 08:00:00 08:00:00 Rheumatol Rheumatolog alWorks [facility] 2020-07-22 2020-07-22 Outpatient Rheumatol Rheumatolog 2 [id number] eClinic 16:32:00 16:32:00 ogy y [facility] 2020-07-18 2020-07-18 Outpatient PAYAN, [facility] [id number] [address] [place] 00:00:00 00:00:00 ZENITHE 163 Method i 2020-06-14 2020-06-14 Outpatient PAYAN, [facility] [id number] [address] [place] 00:00:00 00:00:00 ZENITHE 278 Method i 2020-06-12 2020-06-12 Emergency Morales, [facility] [id number] 07:42:00 11:54:00 Corey Cotto 350.1.13.10 [place] 4.2.7.2.686 [place] [id number] 2020-06-12 2020-06-12 Emergency Morales, [facility] [id number] [facility] 07:42:00 11:54:00 Corey Cotto 350.1.13.10 i ty of [place] 4.2.7.2.686 [facility] [phone] [facility] [place] 084 [place] 2020-06-12 2020-06-12 Orders Doctor YASIR 1.2.840.114 [id number] 00:00:00 00:00:00 Only Unassigned, TED 350.1.13.10 [place] [facility] 4.2.7.2.686 [id number] [id number] 2020-06-12 2020-06-12 Orders Doctor YASIR 1.2.840.114 [id number] Univers 00:00:00 00:00:00 Only Unassigned, TED 350.1.13.10 [facility] 4.2.7.2.686 [facility] [phone] [facility] 009 [address] 2020-05-09 2020-05-09 Outpatient GABRIELA - GABRIELA - [id number] eClinic 13:50:00 13:50:00 Rheumatol Rheumatolog alWorks ogy y [facility] 2020-05-09 2020-05-09 Outpatient GABRIELA - GABRIELA - [id number] eClinic 13:49:00 13:49:00 Rheumatol Rheumatolog alWorks ogy y [facility] 2020-05-09 2020-05-09 Outpatient GABRIELA - GABRIELA - [id number] eClinic 11:30:00 11:30:00 Rheumatol Rheumatolog alWorks ogy y [facility] 2020-05-08 2020-05-08 Outpatient PAYAN [facility] [id number] [address] [place] [address] 00:00:00 00:00:00 MIKE [address] 2020-05-07 2020-05-07 Outpatient GABRIELA - GABRIELA - [id number] eClinic 10:31:00 10:31:00 Rheumatol Rheumatolog alWorks ogy y [facility] 2020-04-23 2020-04-23 Telephone YASIR Payan [id number] 00:00:00 00:00:00 Mike JEAN 350.1.13.10 [facility] 4.2.7.2.686 [id number] 2020-04-23 2020-04-23 Patient Doctor YASIR 1.2.840.114 [id number] 00:00:00 00:00:00 Secure Msg Unassigned, TED 350.1.13.10 [facility] 4.2.7.2.686 [id number] 2020-04-23 2020-04-23 Telephone YASIR Payan [id number] Univers 00:00:00 00:00:00 Zenithlynnette JEAN 350.1.13.10 it y of [facility] 4.2.7.2.686 Mike as [phone] [address] 2020-04-23 2020-04-23 Patient Doctor YASIR 1.2.840.114 [id number] Univers 00:00:00 00:00:00 Secure Msg Unassigned, TED 350.1.13.10 ity of [facility] 4.2.7.2.686 Mike as [id number] [address] 2020-04-22 2020-04-22 Urgent Pob1, Acute [facility] 1.2.840.114 [id number] 09:10:36 09:30:36 Care Care [facility] [id number] [place] 4.2.7.2.686 Professio [phone] [place] [address] Office Building [facility] 2020-04-22 2020-04-22 Urgent Pob1, Acute Care Clinic [facility] 1. 2.840.114 [id number] Univers 09:10:36 09:30:[address] [facility] 350.1.13.10 ity of [place] 4.2.7.2.686 Mike as Professio [phone] Nm dical [address] Office Building [facility] 2020-04-22 2020-04-22 Outpatient R [facility] [id number] Univers 09:20:00 09:20:[address] [facility] 2020-04-10 2020-04-10 Outpatient SCHUYLER [facility] [id number] [address] [place] [address] 00:00:00 00:00:00 MIKE [address] 2020-03-27 2020-03-27 Outpatient GABRIELA - GABRIELA - [id number] eClinic 14:30:00 14:30:00 Rheumatol Rheumatolog alWorks ogy y [facility] 2020-03-11 2020-03-11 Outpatient GABRIELA - GABRIELA - [id number] eClinic 22:56:00 22:56:00 Rheumatol Rheumatolog alWorks ogy y [facility] 2020-03-08 2020-03-08 Outpatient SCHUYLER, [facility] [id number] [address] [place] 00:00:00 00:00:00 ZENITHE 355 [facility] i 2020-01-26 2020-01-26 Outpatient SCHUYLER, [facility] [id number] [address] [place] [address] 00:00:00 00:00:00 ZENITHE [address] 2020-01-20 2020-01-22 Inpatient E CHANDRIKA, [facility] [id number] MH 13:05:00 20:16:[address] [facility] 2020-01-16 2020-01-16 Outpatient BANKI, [facility] [id number] 07:23:00 23:59:00 [facility] 2020-01-15 2020-01-15 Outpatient BANKI, [facility] [id number] MH 10:14:00 23:59:00 [facility] 2020-01-11 2020-01-11 Outpatient BANKI, [facility] [id number] MH 10:53:00 14:18:00 [facility] 2020-01-09 2020-01-09 Outpatient BANKI, [facility] [id number] MH 07:45:00 23:59:00 [facility] 2020-01-02 2020-01-02 Outpatient [facility] [id number] [address] [place] [address] 00:00:00 00:00:[address] 2019-11-27 2019-11-27 Outpatient E [facility] MED [id number] MH 17:46:00 17:46:[address] [facility] 2019-09-01 2019-09-01 Outpatient PRL - PRL - [id number] eClinic 11:22:00 11:22:00 [facility] 2019-09-01 2019-09-01 Outpatient PRL - PRL - [id number] eClinic 11:08:00 11:08:00 [facility]umatol [facility] y [facility] 2019-07-19 2019-07-19 Outpatient GABRIELA - GABRIELA - [id number] eClinic 11:36:00 11:36:00 Rheumatol Rheumatolog [facility]Works [facility]gy y [facility] 2019-07-18 2019-07-18 Outpatient PRL - PRL - [id number] eClinic 11:15:00 11:15:00 Rheumatol Rheumatolog alWorks [facility] y [facility] 2015-05-09 2015-05-09 [facility] [id number] Memoria 00:00:00 00:00:00 melida Munguia [id number] nabil [facility] 2015-05-09 2015-05-09 Office [facility] [id number] Memoria 00:00:00 00:00:00 Visit melida Munguia [id number] [facility] 2015-04-12 2015-04-12 [facility] [id number] Memoria 00:00:00 00:00:00 Visit melida Munguia [id number] [facility] 2015-04-11 2015-04-11 Lab Report [facility] [id number] Memoria 00:00:00 00:00:00 melida Munguia [id number] nabil [facility] 2015-03-22 2015-03-22 [facility] [id number] Memoria 00:00:00 00:00:00 Visit melida Munguia [id number] nabil [facility] 2015-02-15 2015-02-15 Lab [facility] [id number] Memoria 00:00:00 00:00:00 melida Munguia [id number] [facility] 2015-01-10 2015-01-10 [facility] [id number] Memoria 00:00:00 00:00:00 Visit melida Munguia [id number] [facility] 2014-12-20 2014-12-20 Lab Report [facility] [id number] Memoria 00:00:00 00:00:00 melida Munguia [id number] [facility] 2014-12-10 2014-12-10 [facility] [id number] Memoria 00:00:00 00:00:00 Visit r Ezra [id number] [facility] 2014-11-13 2014-11-13 [facility] [id number] Memoria 00:00:00 00:00:00 Visit r Ezra [id number] [facility] 2014-10-26 2014-10-26 [facility] [id number] Memoria 00:00:00 00:00:00 Visit r Ezra [id number] [facility] 2014-10-03 2014-10-03 [facility] [id number] Memoria 00:00:00 00:00:00 Visit r Ezra [id number] [facility] 2014-07-17 2014-07-17 Lab Report [facility] [id number] Memoria 00:00:00 00:00:00 r Ezra [id number] [facility] 2014-04-27 2014-04-27 Lab Report [facility] [id number] Memoria 00:00:00 00:00:00 r Ezra [id number] [facility] 2014-03-26 2014-03-26 Lab Report [facility] [id number] Memoria 00:00:00 00:00:00 r Ezra [id number] [facility] 2014-03-24 2014-03-24 Office Shirazo [facility] [id number] Memoria 00:00:00 00:00:00 Visit melida Munguia [id number] [facility] Results Test Description Test Time Test Comments Results Result Comments Source Magnesium, RBC 2022-11-05 11:09:00 Test Item Value Reference Range Interpretation Comme nts Magnesium RBC (test 4.8 mg/dL 4.2-6.8 This joey t was developed and its code = 82662-2) performance characteristics determined by [facility]. It has not been cleared or approvedby the Food and Drug Administration. EARL (test code = Performed at: ) [facility] [address] [id number] Director: Sonya Weinberg MD, Phone: [phone] [facility]K)2022-10-29 11:10:00 Test Item Value Reference Range Interpretation Comments Creatine kinase (test 142 U/L 32-182 code = 2157-6) EARL (test code = EARL) Performed at: 01 - [facility] [address] [id number] Director: Holden Rosario MD, Phone: [phone] [facility] [id number] 11:10:00 Test Item Value Reference Range Interpretation Comments Specimen COMMENT Written Status Report AuthorizationW della (test code = AuthorizationWr ittralph 3285) Authorization Received.Author ization received from shayla zimmerman [id number] d by Yasir ELLIOTT (test code Performed at: 01 = EARL) - [facility] [address] [id number] Director: Holden Rosario MD, Phone: [phone] [facility] [id number] 12:10:00 Test Item Value Reference Range Interpretation Comments Glucose (test code = 71 mg/dL 70-99 2345-7) BUN (test code = 9 mg/dL 6-24 3094-0) Creatinine (test code 0.64 mg/dL 0.57-1.00 = 2160-0) eGFR (test code = 110 mL/min/1.73 See_Comment [Autom ated 89267-4) message] The system which generated this result transmitted reference range : >=59. The reference range was not used to interpret this result as normal/abnormal . BUN/creatinine ratio 9-23 (test code = 3097-3) Sodium (test code = 141 mmol/L 339-137 3649-2) Potassium (test code 4.0 mmol/L 3.5-5.2 = 2823-3) Chloride (test code = 105 mmol/L 96-106 2075-0) CO2 (test code = 22 mmol/L 20-29 8-9) Calcium (test code = 9.3 mg/dL 8.7-10.2 09682-7) Protein (test code = 6.5 g/dL 6.0-8.5 2885-2) Albumin, S (test code 4.3 g/dL 3.8-4.8 = 1751-7) Globulin, total (test 2.2 g/dL 1.5-4.5 code = 53683-9) Albumin/globulin 1.2-2.2 ratio (test code = 1759-0) Total bilirubin (test 0.0-1.2 code = 1975-2) Alkaline phosphatase See_Comment [Autom ated (test code = 6768-6) message ] The system which generated this result transmitted reference range : 44 - 121 IU/L. The reference range was not used to interpr et this result as normal/abnormal . AST (test code = See_Comment [Automated 1920-06) message] The system which generated this result transmitted reference range : 0 - 40 IU/L. Th e reference range was not used to interpret this result as normal/abnormal . ALT (test code = See_Comment H [Automated 1742-04) message] The system which generated this result transmitted reference range : 0 - 32 IU/L. Th e reference range was not used to interpret this result as normal/abnormal . EARL (test code = EARL) Performed at: [address] [place] [id number] Director: Holden Rosario MD, Phone: [phone] Lab Interpretation Abnormal (test code = 52416-3) [facility]cosLipid [id number] 12:10:00 Test Item Value Reference Range Interpretation Comments Cholesterol (test 269 mg/dL 100-199 H code = 2093-3) Triglycerides (test 179 mg/dL 0-149 H code = 2571-8) HDL cholesterol (test 61 mg/dL See_Comment [Auto mated code = 2084-9) message] The system which generated this result transmitted reference range : >=39. The reference range was not used to interpret this result as normal/abnormal . VLDL cholesterol scott 33 mg/dL 5-40 (test code = 80566-4) LDL Chol Calc ([facility]) 175 mg/dL 0-99 H (test code = 11070-7) Non-HDL cholesterol 208 mg/dL 0-129 H (test code = 34835-4) EARL (test code = EARL) Performed at: [address] [place] [address] [id number] Director: Holden Rosario MD, Phone: [phone] Lab Interpretation Abnormal (test code = 95438-5) [facility]cos[facility]itamin B12 [id number] 12:10:00 Test Item Value Reference Range Interpretation Comments Vitamin B12 (test 487 pg/mL 232-1245 code = 2132-9) EARL (test code = EARL) Performed at: [address] [id number] Director: Holden Rosario MD, Phone: [phone] [facility]cosFerritin [id number] 12:10:00 Test Item Value Reference Range Interpretation Comments Ferritin level (test code 13 ng/mL 15-150 L = 2276-4) EARL (test code = EARL) Performed at: [address] [id number] Director: Holden Rosario MD, Phone: [phone] Lab Interpretation (test Abnormal code = 66727-2) [facility]cosHemoglobin [id number] 12:10:00 Test Item Value Reference Range Interpretation Comments Hemoglobin A1C 5.3 % 4.8-5.6 Prediabetes : (test code = 5.7 - 6.4 4548-4) Diabetes: >6.4 Glycemic contro l for adults with diabetes: <7.0 EARL (test code = Performed at: EARL) [address] [id number] Director: Holden Rosario MD, Phone: [phone] [facility]cosThyroid stimulating [id number] 12:10:00 Test Item Value Reference Range Interpretation Comments TSH (test code See_Comment [Automated m essage] = 50720-7) The system Favery h generated this result transmit heron reference range : 0.450 - 4.500 uIU/mL. The reference range was not used to interpret this result as normal/abnormal . EARL (test code Performed at: - = EARL) [address] [id number] Director: Holden Rosario MD, Phone: [phone] [facility] with platelet and [id number] 12:10:00 Test Item Value Reference Range Interpretation Comments WBC (test code = See_Comment [Automated 3090-2) message] The system which generated this result transmit heron reference range : 3.4 - 10.8 x10E3/uL. The reference range was not used to interpret this result as normal/abnormal . RBC (test code = See_Comment [Automated 789-8) message] The system which generated this result transmit heron reference range : 3.77 - 5.28 x10E6/uL. The reference range was not used to interpret this result as normal/abnormal . HGB (test code = 12.6 g/dL 11.1-15.9 718-7) HCT (test code = 38.2 % 34.0-46.6 4544-3) MCV (test code = 91 fL 79-97 787-2) MCH (test code = 30.1 pg 26.6-33.0 785-6) MCHC (test code = 33.0 g/dL 31.5-35.7 786-4) RDW (test code = 14.5 % 11.7-15.4 788-0) Platelet count See_Comment [Automated (test code = 777-3) message] The system which generated this result transmit heron reference range : 150 - 450 x10E3/uL. The reference range was not used to interpret this result as normal/abnormal . Neutrophils (test 69 % Not Estab. code = 770-8) Lymphocytes (test 22 % Not Estab. code = 736-9) Monocytes (test 7 % Not Estab. code = 5905-5) Eosinophils (test 2 % Not Estab. code = 713-8) Basophils (test 0 % Not Estab. code = 706-2) Neutrophils, See_Comment [Automated absolute (test code message] The = 751-8) system which generated this result transmit heron reference range : 1.4 - 7.0 x10E3/uL. The reference range was not used to interpret this result as normal/abnormal . Lymphocytes, See_Comment [Automated absolute (test code message] The = 731-0) system which generated this result transmit heron reference range : 0.7 - 3.1 x10E3/uL. The reference range was not used to interpret this result as normal/abnormal . Monocytes, absolute See_Comment [Automa heron (test code = 742-7) message] The system which generated this result transmit heron reference range : 0.1 - 0.9 x10E3/uL. The reference range was not used to interpret this result as normal/abnormal . Eosinophils, See_Comment [Automated absolute (test code message] The = 711-2) system which generated this result transmit heron reference range : 0.0 - 0.4 x10E3/uL. The reference range was not used to interpret this result as normal/abnormal . Basophils, absolute See_Comment [Automa heron (test code = 704-7) message] The system which generated this result transmit heron reference range : 0.0 - 0.2 x10E3/uL. The reference range was not used to interpret this result as normal/abnormal . Immature 0 % Not Estab. granulocytes (test code = 06078-6) Immature See_Comment [Automated granulocytes, message] The absolute (test code system w [facility] = 45332-8) generated this result transmit heron reference range : 0.0 - 0.1 x10E3/uL. The reference range was not used to interpret this result as normal/abnormal . EARL (test code = Performed at: EARL) - [facility] [address] [place], [place] [id number] Director: Holden Rosario MD, Phone: [phone] [facility]cosVitamin D 25 hydroxy [id number] 12:10:00 Test Item Value Reference Range Interpretation Comments Vitamin D, 17.9 ng/mL 30.0-100.0 L Vitamin D 25-hydroxy (test deficiency has been code = 70325-6) defined by [facility] and an Endocrine Socie ty practice guidel ine as alevel of se rum 25-OH vitamin D less than 20 ng /mL (1,2).The Endoc rine Society went on to further define vitamin Dinsufficiency as a level between 2 1 and 29 ng/mL (2 ).1. IOM ([place] of Medicine). 2010 . Dietary referen ce intakes for scott cium and D. [place]: The [employer]ct[employer] Press .2. [place] MF, Anna DUKE, Sade mari DON, et al. Evaluation, treatment, and prevention of vitamin D deficiency: an Endocrine Socie ty clinical practi ce guideline. JCEM . 2010; 96(7):1911-30. EARL (test code = Performed at: EARL) - [facility] [address] [place], [place] [id number] Director: Holden Rosario MD, Phone: [phone] Lab Interpretation Abnormal (test code = 42046-3) [facility] [id number] 09:39:00 Test Item Value Reference Range Interpretation Comments Glucose (test code = 91 mg/dL 65-99 Fastin g 2345-7) reference interval BUN (test code = 11 mg/dL 7-25 3094-0) Creatinine (test 0.66 mg/dL 0.50-0.99 code = 2160-0) eGFR (test code = See_Comment The eGFR i s based 8257) on the CKD-EPI 2020 equation. To calculate the n ew eGFR from a previous Creatinine or Cystatin Cresul t, go to https://www.kid ne y.org/professio na chase/kdoqi/gfr%5F ca lculator [Automated message] The system which generated this result transmitted reference range : > OR = 60 mL/min/1.73m2. The reference range was not used to interpr et this result as normal/abnormal . BUN/creatinine ratio NOT APPLICABLE See_Comment [Aut omated (test code = 3097-3) message ] The system which generated this result transmitted reference range : 6 - 22 (calc). The reference range was not used to interpr et this result as normal/abnormal . Sodium (test code = 140 mmol/L 014-724 7020-2) Potassium (test code 3.4 mmol/L 3.5-5.3 L = 2823-3) Chloride (test code 110 mmol/L 98-110 = 2075-0) CO2 (test code = 20 mmol/L 20-32 8-9) Calcium (test code = 9.0 mg/dL 8.6-10.2 14156-4) Protein (test code = 6.8 g/dL 6.1-8.1 2885-2) Albumin, S (test 4.2 g/dL 3.6-5.1 code = 1751-7) Globulin, total See_Comment [Automated (test code = message] The 24124-4) system which generated this result transmitted reference range : 1.9 - 3.7 g/dL (calc). The reference range was not used to interpret this result as normal/abnormal . Albumin/globulin See_Comment [Automated ratio (test code = message] The 1759-0) system which generated this result transmitted reference range : 1.0 - 2.5 (calc ). The reference range was not used to interpr et this result as normal/abnormal . Total bilirubin 0.5 mg/dL 0.2-1.2 (test code = 1974-2) Alkaline phosphatase 164 U/L 31-125 H (test code = 6768-6) AST (test code = 27 U/L 10-35 1920-8) ALT (test code = 99 U/L 6-29 H 1742-6) RAC (test code = Performing RAC) Organization Information: Site ID: RGA Name: [facility] Lab Address: [address] [place] [id number] Director: Krunal Pettit Lab Interpretation Abnormal (test code = 80551-2) [facility] with platelet and [id number] 09:39:00 Test Item Value Reference Range Interpretation Comments WBC (test code = See_Comment [Automated 6690-2) message] The system which generated this result transmitted reference range : 3.8 - 10.8 Thousand/uL. Th e reference range was not used to interpret this result as normal/abnormal . RBC (test code = See_Comment [Automated 379-8) message] The system which generated this result transmitted reference range : 3.80 - 5.10 Million/uL. The reference range was not used to interpret this result as normal/abnormal . HGB (test code = 13.1 g/dL 11.7-15.5 718-7) HCT (test code = 38.1 % 35.0-45.0 4544-3) MCV (test code = 86.8 fL 80.0-100.0 787-2) MCH (test code = 29.8 pg 27.0-33.0 785-6) MCHC (test code = 34.4 g/dL 32.0-36.0 786-4) RDW (test code = 14.2 % 11.0-15.0 788-0) Platelet count See_Comment [Automated (test code = message] The 777-3) system which generated this result transmitted reference range : 140 - 400 Thousand/uL. Th e reference range was not used to interpret this result as normal/abnormal . MPV (test code = 10.0 fL 7.5-12.5 776-5) Neutrophils, See_Comment [Automated absolute (test message] The code = 751-8) system which generated this result transmitted reference range : 1,500 - 7,800 cells/uL. The reference range was not used to interpret this result as normal/abnormal . Lymphocytes, See_Comment [Automated absolute (test message] The code = 731-0) system which generated this result transmitted reference range : 850 - 3,900 cells/uL. The reference range was not used to interpret this result as normal/abnormal . Monocytes, See_Comment [Automated absolute (test message] The code = 742-7) system which generated this result transmitted reference range : 200 - 950 cells/uL. The reference range was not used to interpret this result as normal/abnormal . Eosinophils, See_Comment [Automated absolute (test message] The code = 711-2) system which generated this result transmitted reference range : 15 - 500 cells/uL. The reference range was not used to interpret this result as normal/abnormal . Basophils, See_Comment [Automated absolute (test message] The code = 704-7) system which generated this result transmitted reference range : 0 - 200 cells/u L. The reference range was not used to interpr et this result as normal/abnormal . Neutrophils (test 58.5 % code = 770-8) Lymphocytes (test 28.8 % code = 736-9) Monocytes (test 6.1 % code = 5905-5) Eosinophils (test 6.1 % code = 713-8) Basophils + RC 0.5 % (test code = 706-2) RAC (test code = Performing RAC) Organization Information: Site ID: RGA Name: [facility] Address: [address] [place] [phone] Director: Krunal Pettit [facility]cos[facility]inalysis screen and microscopy, with reflex to culture 2022-09-03 09:39:00 Test Item Value Reference Range Interpretation Comments Color, UA (test code ORANGE YELLOW A = 5778-6) Appearance (test CLOUDY CLEAR A code = 5767-9) WBC, UA (test code = 0-5 See_Comment [Autom ated 5821-4) message] The system which generated this result transmitted reference range : < OR = 5 /HPF. The reference range was not used to interpr et this result as normal/abnormal . RBC, UA (test code = 0-2 See_Comment [Autom ated 97808-1) message] The system which generated this result transmitted reference range : < OR = 2 /HPF. The reference range was not used to interpr et this result as normal/abnormal . Squamous epithelial 0-5 See_Comment [Automa heron cells, UA (test code message ] The = 65380-4) system which generated this result transmitted reference range : < OR = 5 /HPF. The reference range was not used to interpr et this result as normal/abnormal . Bacteria, UA (test FEW NONE SEEN /HPF A code = 5769-5) Calcium oxalate MODERATE NONE OR FEW A crystals, UA (test /HPF code = 70915-8) Hyaline casts, UA NONE SEEN NONE SEEN /LPF (test code = 5796-8) Note: (test code = This urin e was 8251-1) analyzed for th e presence of WBC , RBC, bacteria, casts, and othe r formed elements . Only those elements seen were reported. Specific gravity, TNP TEST(S) N OT urine (test code = PERFORMED : 5811-5) SPECIFIC GRAVIT Y PH GLUCOSE BILIRUBIN KETON ES OCCULT BLOOD PROTEIN NITRITE LEUKOCYTE ESTERASE TEST N OT PERFORMED Unabl e to perform testingdue to color interference. Reflex (test code = NO CULTU RE 630-4) INDICATED RAC (test code = Performing RAC) Organization Information: Site ID: RGA Name: [facility] Lab Address: [address] [place] [address] Director: Krunal Pettit Lab Interpretation Abnormal (test code = 46576-2) [facility]inal[facility] microscopy, with reflex to culture 2022-09-03 09:39:00 Test Item Value Reference Range Interpretation Comments Color, UA (test code ORANGE YELLOW A = 5778-6) Appearance (test CLOUDY CLEAR A code = 5767-9) WBC, UA (test code = 0-5 See_Comment [Autom ated 5821-4) message] The system which generated this result transmitted reference range : < OR = 5 /HPF. The reference range was not used to interpr et this result as normal/abnormal . RBC, UA (test code = 0-2 See_Comment [Autom ated 13115-0) message] The system which generated this result transmitted reference range : < OR = 2 /HPF. The reference range was not used to interpr et this result as normal/abnormal . Squamous epithelial 0-5 See_Comment [Automa heron cells, UA (test code message ] The = 02355-3) system which generated this result transmitted reference range : < OR = 5 /HPF. The reference range was not used to interpr et this result as normal/abnormal . Bacteria, UA (test FEW NONE SEEN /HPF A code = 5769-5) Calcium oxalate MODERATE NONE OR FEW A crystals, UA (test /HPF code = 52571-3) Hyaline casts, UA NONE SEEN NONE SEEN /LPF (test code = 5796-8) Note: (test code = This urin e was 8251-1) analyzed for th e presence of WBC , RBC, bacteria, casts, and othe r formed elements . Only those elements seen were reported. Specific gravity, TNP TEST(S) N OT urine (test code = PERFORMED : 5811-5) SPECIFIC GRAVIT Y PH GLUCOSE BILIRUBIN KETON ES OCCULT BLOOD PROTEIN NITRITE LEUKOCYTE ESTERASE TEST N OT PERFORMED Unabl e to perform testingdue to color interference. Reflex (test code = NO CULTU RE 630-4) INDICATED RAC (test code = Performing RAC) Organization Information: Site ID: RGA Name: [facility] Lab Address: [address] [place] [address] Director: Krunal Pettit Lab Interpretation Abnormal (test code = 40087-6) [facility], [id number] 10:09:00 Test Item Value Reference Interpretation Comments Range Magnesium RBC 5.7 mg/dL 4.2-6.8 This test was developed and (test code = its performance 77769-1) characteristics determined by [facility]. It has not been cleared or appr ovedby the Food and Drug A dministration. EARL (test code Performed at: = EARL) 01 - [facility] [id number] Director: Sonya Weinberg MD, Phone: [phone] [facility]cos[facility], [id number] 10:09:00 Test Item Value Reference Interpretation Comments Range Magnesium RBC 5.7 mg/dL 4.2-6.8 This test was developed and (test code = its performance 24316-4) characteristics determined by [facility]. It has not been cleared or appr ovedby the Food and Drug A dministration. EARL (test code Performed at: = EARL) - [address] [id number] Director: Sonya Weinberg MD, Phone: [phone] [facility] [id number] 12:36:00 Test Item Value Reference Range Interpretation Comments Glucose (test code = 75 mg/dL 65-99 2345-7) BUN (test code = 12 mg/dL 6-24 3094-0) Creatinine (test code 0.62 mg/dL 0.57-1 = 2160-0) eGFR (test code = 111 mL/min/1.73 See_Comment [Autom ated 8257) message] The system which generated this result transmitted reference range : >=59. The reference range was not used to interpret this result as normal/abnormal . BUN/creatinine ratio 9-23 (test code = 3097-3) Sodium (test code = 141 mmol/L 428-801 2803-2) Potassium (test code 3.8 mmol/L 3.5-5.2 = 2823-3) Chloride (test code = 109 mmol/L 96-106 H 2075-0) CO2 (test code = 15 mmol/L 20-29 L 8-9) Calcium (test code = 9.6 mg/dL 8.7-10.2 23275-2) Protein (test code = 7.3 g/dL 6-8.5 2885-2) Albumin, S (test code 4.7 g/dL 3.8-4.8 = 1751-7) Globulin, total (test 2.6 g/dL 1.5-4.5 code = 72438-6) Albumin/globulin 1.2-2.2 ratio (test code = 1759-0) Total bilirubin (test 0.2 mg/dL 0-1.2 code = 1975-2) Alkaline phosphatase See_Comment H [Autom ated (test code = 6768-6) message ] The system which generated this result transmitted reference range : 44 - 121 IU/L. The reference range was not used to interpr et this result as normal/abnormal . AST (test code = See_Comment [Automated 192-8) message] The system which generated this result transmitted reference range : 0 - 40 IU/L. Th e reference range was not used to interpret this result as normal/abnormal . ALT (test code = See_Comment H [Automated 174-6) message] The system which generated this result transmitted reference range : 0 - 32 IU/L. Th e reference range was not used to interpret this result as normal/abnormal . EARL (test code = EARL) Performed at: [address] [place] [address] [id number] Director: Holden Rosario MD, Phone: [phone] Lab Interpretation Abnormal (test code = 87395-9) [facility] [id number] 12:36:00 Test Item Value Reference Range Interpretation Comments Amylase (test code = 31 U/L 31-110 1798-8) EARL (test code = EARL) Performed at: [address] [place] [address] [id number] Director: Holden Rosario MD, Phone: [phone] [facility]itamin B12 [id number] 12:36:00 Test Item Value Reference Range Interpretation Comments Vitamin B12 (test 699 pg/mL 232-1245 code = 2132-9) EARL (test code = EARL) Performed at: [address] [place] [address] [id number] Director: Holden Rosario MD, Phone: [phone] [facility]rit[facility] [id number] 12:36:00 Test Item Value Reference Range Interpretation Comments Ferritin level (test 67 ng/mL 15-150 code = 2276-4) EARL (test code = EARL) Performed at: [address] [place] [address] [id number] Director: Holden Rosario MD, Phone: [phone] [facility]ase [id number] 12:36:00 Test Item Value Reference Range Interpretation Comments Lipase (test code = 17 U/L 14-72 3040-3) EARL (test code = EARL) Performed at: [address] [place] [address] [id number] Director: Holden Rosario MD, Phone: [phone] [facility] with platelet and [id number] 12:36:00 Test Item Value Reference Range Interpretation Comments WBC (test code = See_Comment [Automated 1490-2) message] The system which generated this result transmit heron reference range : 3.4 - 10.8 x10E3/uL. The reference range was not used to interpret this result as normal/abnormal . RBC (test code = See_Comment [Automated 579-8) message] The system which generated this result transmit heron reference range : 3.77 - 5.28 x10E6/uL. The reference range was not used to interpret this result as normal/abnormal . HGB (test code = 13.1 g/dL 11.1-15.9 718-7) HCT (test code = 39.8 % 34-46.6 4544-3) MCV (test code = 92 fL 79-97 787-2) MCH (test code = 30.4 pg 26.6-33 785-6) MCHC (test code = 32.9 g/dL 31.5-35.7 786-4) RDW (test code = 13.5 % 11.7-15.4 788-0) Platelet count See_Comment [Automated (test code = 777-3) message] The system which generated this result transmit heron reference range : 150 - 450 x10E3/uL. The reference range was not used to interpret this result as normal/abnormal . Neutrophils (test 74 % Not Estab. code = 770-8) Lymphocytes (test 15 % Not Estab. code = 736-9) Monocytes (test 9 % Not Estab. code = 5905-5) Eosinophils (test 2 % Not Estab. code = 713-8) Basophils (test 0 % Not Estab. code = 706-2) Neutrophils, See_Comment [Automated absolute (test code message] The = 751-8) system which generated this result transmit heron reference range : 1.4 - 7.0 x10E3/uL. The reference range was not used to interpret this result as normal/abnormal . Lymphocytes, See_Comment [Automated absolute (test code message] The = 731-0) system which generated this result transmit heron reference range : 0.7 - 3.1 x10E3/uL. The reference range was not used to interpret this result as normal/abnormal . Monocytes, absolute See_Comment [Automa heron (test code = 742-7) message] The system which generated this result transmit heron reference range : 0.1 - 0.9 x10E3/uL. The reference range was not used to interpret this result as normal/abnormal . Eosinophils, See_Comment [Automated absolute (test code message] The = 711-2) system which generated this result transmit heron reference range : 0.0 - 0.4 x10E3/uL. The reference range was not used to interpret this result as normal/abnormal . Basophils, absolute See_Comment [Automa heron (test code = 704-7) message] The system which generated this result transmit heron reference range : 0.0 - 0.2 x10E3/uL. The reference range was not used to interpret this result as normal/abnormal . Immature 0 % Not Estab. granulocytes (test code = 32630-0) Immature See_Comment [Automated granulocytes, message] The absolute (test code system w [facility] = 40204-3) generated this result transmit heron reference range : 0.0 - 0.1 x10E3/uL. The reference range was not used to interpret this result as normal/abnormal . EARL (test code = Performed at: EARL) - [facility] [id number] [place], [place] [id number] Director: Holden Rosario MD, Phone: [phone] [facility]it[facility] D 25 hydroxy [id number] 12:36:00 Test Item Value Reference Range Interpretation Comments Vitamin D, 27.6 ng/mL 30-100 L Vitamin D 25-hydroxy (test deficiency has been code = 09513-9) defined by t [facility] ofMedicine and an Endocrine Socie ty practice guidel ine as alevel of se rum 25-OH vitamin D less than 20 ng /mL (1,2).The Endoc rine Society went on to further define vitamin Dinsufficiency as a level between 2 1 and 29 ng/mL (2 ).1. IOM ([place] of Medicine). 2010 . Dietary referen ce intakes for scott cuenca and Kirti Godfrey on [place]: The [facility] [employer] .2. Zaire MF, Anna to [place], Sade mari DON, et al. Evaluation, treatment, and prevention of vitamin D deficiency: an Endocrine Socie ty clinical practi ce guideline. JCEM . 2010; 96(4):1911-30. EARL (test code = Performed at: EARL) - [address] [id number] Director: Holden Rosario MD, Phone: [phone] Lab Interpretation Abnormal (test code = 04598-2) [facility] [id number] 12:36:00 Test Item Value Reference Range Interpretation Comments Amylase (test code = 31 U/L 31-110 1798-8) EARL (test code = EARL) Performed at: [facility] [address] [id number] Director: Holden Rosario MD, Phone: [phone] [facility]amin B12 [id number] 12:36:00 Test Item Value Reference Range Interpretation Comments Vitamin B12 (test 699 pg/mL 232-1245 code = 2132-9) EARL (test code = EARL) Performed at: [facility] [address] [id number] Director: Holden Rosario MD, Phone: [phone] [facility]ritin [id number] 12:36:00 Test Item Value Reference Range Interpretation Comments Ferritin level (test 67 ng/mL 15-150 code = 2276-4) EARL (test code = EARL) Performed at: [facility] [address] [id number] Director: Holden Rosario MD, Phone: [phone] [facility]cos[facility]ase [id number] 12:36:00 Test Item Value Reference Range Interpretation Comments Lipase (test code = 17 U/L 14-72 3040-3) EARL (test code = EARL) Performed at: 01 - [facility] [address] [id number] Director: Holden Rosario MD, Phone: [phone] [facility]it[facility] D 25 hydroxy [id number] 12:36:00 Test Item Value Reference Range Interpretation Comments Vitamin D, 27.6 ng/mL 30.0-100.0 L Vitamin D 25-hydroxy (test deficiency has been code = 28087-5) defined by [facility] and an Endocrine Socie ty practice guidel ine as alevel of se rum 25-OH vitamin D less than 20 ng /mL (1,2).The Endoc rine Society went on to further define vitamin Dinsufficiency as a level between 2 1 and 29 ng/mL (2 ).1. IOM ([place]ather of Medicine). 2010 . Dietary referen ce intakes for scott cium and DRadha Washingt on [place]: The [employer] .2. Zaire MF, Anna to [place], Sade mari DON, et al. Evaluation, treatment, and prevention of vitamin D deficiency: an Endocrine Socie ty clinical practi ce guideline. JCEM . 2010; 96(7):1911-30. EARL (test code = Performed at: EARL) - [facility] [address] [id number] Director: Holden Rosario MD, Phone: [phone] Lab Interpretation Abnormal (test code = 83005-8) [facility] [id number] 12:36:00 Test Item Value Reference Range Interpretation Comments Amylase (test code = 31 U/L 31-110 1798-8) EARL (test code = EARL) Performed at: - [facility] [address] [id number] Director: Holden Rosario MD, Phone: [phone] [facility]cos[facility] [id number] 12:36:00 Test Item Value Reference Range Interpretation Comments Lipase (test code = 17 U/L 14-72 3040-3) EARL (test code = EARL) Performed at: - [facility] [address] [id number] Director: Holden Rosario MD, Phone: [phone] [facility], (w Contrast, Strain and 3D if needed)2022-02-26 20:07:29 Test Item Value Reference Interpretation Comments Range AoV Area, Vmax (test 2.96 cm2 code = 1984450932) AoV Area, VTI (test 2.73 cm2 code = 2822044676) AoV Mean PG (test mmHg code = 3693518811) AoV Peak PG (test mmHg code = 8231777563) AoV Vmax (test code 1.66 m/s = 6169765598) AoV VTI (test code = 0.34 m 7055004248) IVS,d (test code = 0.89 cm 0.6-0.9 4639810092) LV,d (test code = 4.74 cm 3749310218) LV EF,A2C (test code 71.54 % = 8508241465) LV EF,A4C (test code 67.65 % = 8794146952) LV EF,BP (test code 69.87 % = 8934724858) Griffin [place]hal[place],d A2C (test 7.21 cm code = 4919896295) Griffin [place],d A4C (test 7.33 cm code = 2861682839) Griffin [place],s A2C (test 5.97 cm code = 6698028145) Griffin [place],s A4C (test 6.01 cm code = 8332376678) LV,s (test code = 3.08 cm 4762863903) LV SV,A2C (test code 59.84 % = 1865282468) LV SV,A4C (test code 57.90 % = 1852701775) LV Vol,d A2C (test 83.64 mL code = 1078570727) LV Vol,d A4C (test 85.59 ml code = 5640839928) LV Vol,d BP (test 84.83 ml code = 8091906566) LV Vol,s A2C (test 23.80 mL code = 6727345552) LV Vol,s A4C (test 27.69 ml code = 3294392600) LV Vol,s BP (test 25.56 nl code = 8514351219) LVOT Diam,S (test 2.02 cm code = 0242607944) LVOT Vmax (test code 1.53 m/s = 2918875695) LVOT VTI (test code 0.29 m = 3540674599) LVPWD,d (test code = 1.08 cm 0.6-0.9 A 7255905837) TR Vpeak (test code 2.39 mm/s = 0568682090) MV E A ratio (test code = 1741494313) TR pk grad (test mmHg code = 6977341484) MR Vmax (test code = 4.70 m/s 9327825998) MR peak grad (test mmHg code = 9439030777) E wave decelartion msec time (test code = 9634464494) MV Peak A Maciej (test 0.74 m/s code = 1713152521) MV valve area p 1/2 4.21 cm2 method (test code = 6195804697) MV Peak E Maciej (test 0.91 m/s code = 8020766828) MV stenosis pressure 52.31 ms 1/2 time (test code = 2274980542) LVOT stroke volume 0.93 ml (test code = 0787224621) AV LVOT peak mmHg gradient (test code = 8695111111) LV SYS VOL (test 37.42 ml 14-42 code = 5331435625) LV PELAYO VOL (test 104.23 ml 46-106 code = 8284310531) LA area s A4C (test 18.77 cm2 code = 6594171380) LV SV Teich 2D (test 66.81 ml code = 8871054558) LVOT SI (test code = 48.94 ml/m2 0316600428) AoV Cusp sep (test code = 0856064222) AoV Vmn (test code = 1.20 m/s 8743324044) IVS s 2D (test code 1.18 cm = 5080604543) LA Ao Ratio Mmode (test code = 8022470317) LVOT Vmn (test code = 8418377694) Pt Size (test code = 5908042397) Pt Wt (test code = 8001772865) Ao root annulus 2.65 cm (test code = 9009314476) PV AT (test code = msec 6377618535) LVOT mean grad (test mmHg code = 2783789381) LVPW s PLAX (test 1.33 cm code = 7052890845) MV Decel slope (test 4.78 m/s2 code = 0228332927) LA Vol MOD A4C (test 51.99 ml code = 4747751394) Velocity Ratio 0.92 m/s (V1/V2) (test code = 4689) EF (test code = 64 % 4583699144) E/A ratio (test code = 7719541356) LVOT area (test code 3.20 cm2 = 3380762824) LVOT VTI (CM) (test 29.00 cm code = 4589917572) LA diam s (test code 4.1 cm = 9139400770) LA Volume Index 25.7 mL/m2 See_Comment [Automated (test code = message] The 2125493421) system which generated this result transmitted reference range : <=35. The reference range was not used to interpret this result as normal/abnormal . LA VOL 2C (test code 45.0 ml = 4262741187) LA Vol 4C (test code 52.0 ml = 4013586805) D E excurs (test code = 8853341569) E f slope (test code = 1797227282) E prime lat (test code = 6205411625) E grisel sept (test code = 7634713723) IVC diam (test code 2.0 cm = 9270427494) RVSP (test code = mmHg 8816772701) RA pressure (test mmHg code = 1915246868) PV acc T slope (test code = 2218278469) EARL (test code = EARL) Left Ventricle: Normal wall motion. Normal systolic function with a visually estimated EF of 60 - 65%. Mitral Valve: Mild valvular regurgitation. Tricuspid Valve: Mild valvular regurgitation. Left VentricleLeft ventricle size is normal. Normal wall thickness. Normal wall motion. Normal systolic function with a visually estimated EF of 60 - 65%. Normal diastolic function.Right VentricleRight ventricle size is normal. Normal systolic function.Left AtriumLeft atrium size is normal.Right AtriumRight atrium size is normal.Mitral ValveValve structure is normal. No restricted motion. Mild valvular regurgitation. No stenosis.Tricuspid ValveValve structure is normal. No restricted motion. Mild valvular regurgitation. No stenosis.Aortic ValveValve structure is normal. No restricted motion. No valvular regurgitation. No stenosis.Pulmonic ValveValve structure is normal. Trace valvular regurgitation. No stenosis.Pericardium No significant pericardial effusion.AortaNormal sized ascending aorta.Study DetailsStudy quality was excellent. A complete echocardiogram was performed.The apical, parasternal, subcostal and suprasternal views were obtained. Patient exhibited sinus rhythm.Wall Scoring BaselineScore Index: 1.00The left ventricular wall motion is normal. Lab Interpretation Abnormal (test code = 72594-7) [facility], (w Contrast, Strain and 3D if needed)2022-02-26 20:07:29 Test Item Value Reference Interpretation Comments Range AoV Area, Vmax (test 2.96 cm2 code = 9569842865) AoV Area, VTI (test 2.73 cm2 code = 9365563366) AoV Mean PG (test mmHg code = 7766355700) AoV Peak PG (test mmHg code = 3247468612) AoV Vmax (test code 1.66 m/s = 5997030254) AoV VTI (test code = 0.34 m 9720488057) IVS,d (test code = 0.89 cm 0.6-0.9 4720114988) LV,d (test code = 4.74 cm 9144734762) LV EF,A2C (test code 71.54 % = 2705482356) LV EF,A4C (test code 67.65 % = 4380214659) LV EF,BP (test code 69.87 % = 5321746505) Griffin Nehalem,d A2C (test 7.21 cm code = 8375906324) Griffin [place]hal[place],d A4C (test 7.33 cm code = 9291379074) Griffin [place]hal[place],s A2C (test 5.97 cm code = 4161933816) Griffin [place],s A4C (test 6.01 cm code = 5818413845) LV,s (test code = 3.08 cm 1905915163) LV SV,A2C (test code 59.84 % = 1319199438) LV SV,A4C (test code 57.90 % = 9312356462) LV Vol,d A2C (test 83.64 mL code = 9612711721) LV Vol,d A4C (test 85.59 ml code = 3206445056) LV Vol,d BP (test 84.83 ml code = 1489325782) LV Vol,s A2C (test 23.80 mL code = 4683296002) LV Vol,s A4C (test 27.69 ml code = 1354949159) LV Vol,s BP (test 25.56 nl code = 4867922419) LVOT Diam,S (test 2.02 cm code = 0738927253) LVOT Vmax (test code 1.53 m/s = 1043910571) LVOT VTI (test code 0.29 m = 8114814722) LVPWD,d (test code = 1.08 cm 0.6-0.9 A 4898249184) TR Vpeak (test code 2.39 mm/s = 5711582719) MV E A ratio (test code = 5981288973) TR pk grad (test mmHg code = 3084138611) MR Vmax (test code = 4.70 m/s 9005271742) MR peak grad (test mmHg code = 7085657418) E wave decelartion msec time (test code = 6249500799) MV Peak A Maciej (test 0.74 m/s code = 0433690305) MV valve area p 1/2 4.21 cm2 method (test code = 2249273642) MV Peak E Maciej (test 0.91 m/s code = 6813194421) MV stenosis pressure 52.31 ms 1/2 time (test code = 8475342788) LVOT stroke volume 0.93 ml (test code = 9527234372) AV LVOT peak mmHg gradient (test code = 5812440408) LV SYS VOL (test 37.42 ml 14-42 code = 2293157782) LV PELAYO VOL (test 104.23 ml 46-106 code = 8348918798) LA area s A4C (test 18.77 cm2 code = 5716724023) LV SV Teich 2D (test 66.81 ml code = 6121672908) LVOT SI (test code = 48.94 ml/m2 8254699380) AoV Cusp sep (test code = 5453888610) AoV Vmn (test code = 1.20 m/s 4322014619) IVS s 2D (test code 1.18 cm = 8150789944) LA Ao Ratio Mmode (test code = 1778605404) LVOT Vmn (test code = 5817566061) Pt Size (test code = 2420235837) Pt Wt (test code = 9345221346) Ao root annulus 2.65 cm (test code = 7956588089) PV AT (test code = msec 8677626892) LVOT mean grad (test mmHg code = 6933807993) LVPW s PLAX (test 1.33 cm code = 6236015665) MV Decel slope (test 4.78 m/s2 code = 4491207042) LA Vol MOD A4C (test 51.99 ml code = 9905062436) Velocity Ratio 0.92 m/s (V1/V2) (test code = 4689) EF (test code = 64 % 2238054130) E/A ratio (test code = 0077448529) LVOT area (test code 3.20 cm2 = 2550823841) LVOT VTI (CM) (test 29.00 cm code = 6907897872) LA diam s (test code 4.1 cm = 3503666464) LA Volume Index 25.7 mL/m2 See_Comment [Automated (test code = message] The 8557481514) system which generated this result transmitted reference range : <=35. The reference range was not used to interpret this result as normal/abnormal . LA VOL 2C (test code 45.0 ml = 1849179647) LA Vol 4C (test code 52.0 ml = 0017554392) D E excurs (test code = 9375415019) E f slope (test code = 1059991703) E prime lat (test code = 4045650039) E grisel sept (test code = 6095409778) IVC diam (test code 2.0 cm = 7545616530) RVSP (test code = mmHg 2119209930) RA pressure (test mmHg code = 3437995849) PV acc T slope (test code = 5530760614) EARL (test code = EARL) Left Ventricle: Normal wall motion. Normal systolic function with a visually estimated EF of 60 - 65%. Mitral Valve: Mild valvular regurgitation. Tricuspid Valve: Mild valvular regurgitation. Left VentricleLeft ventricle size is normal. Normal wall thickness. Normal wall motion. Normal systolic function with a visually estimated EF of 60 - 65%. Normal diastolic function.Right VentricleRight ventricle size is normal. Normal systolic function.Left AtriumLeft atrium size is normal.Right AtriumRight atrium size is normal.Mitral ValveValve structure is normal. No restricted motion. Mild valvular regurgitation. No stenosis.Tricuspid ValveValve structure is normal. No restricted motion. Mild valvular regurgitation. No stenosis.Aortic ValveValve structure is normal. No restricted motion. No valvular regurgitation. No stenosis.Pulmonic ValveValve structure is normal. Trace valvular regurgitation. No stenosis.Pericardium No significant pericardial effusion.AortaNormal sized ascending aorta.Study DetailsStudy quality was excellent. A complete echocardiogram was performed.The apical, parasternal, subcostal and suprasternal views were obtained. Patient exhibited sinus rhythm.Wall Scoring BaselineScore Index: 1.00The left ventricular wall motion is normal. Lab Interpretation Abnormal (test code = 35549-9) [facility] METABOLIC PANEL (NA, K, CL, CO2, GLUCOSE, BUN, CREATININE, CA)2022-02-10 07:35:14 Test Item Value Reference Range Interpretation Comments NA (test code = 139 mmol/L 135-145 7163089809) K (test code = 3.5 mmol/L 3.5-5.0 9565107186) CL (test code = 113 mmol/L 98-108 H 8235311399) CO2 TOTAL (test code = 17 mmol/L 23-31 L 7661908334) AGAP (test code = 2-16 2525472299) BUN (test code = 8 mg/dL 7-23 8277159443) GLUCOSE (test code = 90 mg/dL 70-110 5405035683) CREATININE (test code = 0.48 mg/dL 0.50-1.04 L 4991788427) CALCIUM (test code = 8.6 mg/dL 8.6-10.6 8286831296) eGFR (test code = mL/min/1.73m2 1033212468) EARL (test code = EARL) Association of Glomerular Filtration Rate (GFR) and Staging of Kidney Disease* + --+ --+ ------+| GFR (mL/min/1.73 m2) ?| With Kidney Damage ?| ?Without Kidney Damage+ --------+ --------+ +| ?>90 ?| ?Stage one ?| ? Normal ?+ ---+ ---+ -------+| ?60-89 ?| ?Stage two ?| ? Decreased GFR ? + --+ --+ ------+| ?30-59 ?| ?Stage three ?| ? Stage three ? + --+ --+ ------+| ?15-29 ?| ?Stage four ? | ? Stage four ?+ ---+ ---+ -------+| ?<15 (or dialysis) ? ?| ?Stage five ? | ? Stage five ?+ ---+ ---+ -------+ *Each stage assumes the associated GFR level has been in effect for at least three months. ?Stages 1 to 5, with or without kidney disease, indicate chronic kidney disease. Notes: Determination of stages one and two (with eGFR >59mL/min/1.73 m2) requires estimation of kidney damage for at least three months as defined by structural or functional abnormalities of the kidney, manifested by either:Pathological abnormalities or Markers of kidney damage (including abnormalities in the composition of the blood or urine or abnormalities in imaging tests). Lab Interpretation Abnormal (test code = 67789-3) [facility] 07:35:14 Test Item Value Reference Range Interpretation Comments MAGNESIUM (test code = 6256560259) 1.7 mg/dL 1.7-2.4 Lab Interpretation (test code = Normal 32385-1) [facility] WITH [id number] 07:24:50 Test Item Value Reference Range Interpretation Comments WBC (test code = See_Comment [Automated 3676-2) message] The sy stem which generated this result transmitted reference range : 4.30 - 11.10 10*3/?L. The reference range was not used to interpret this result as normal/abnormal . RBC (test code = See_Comment [Automated 543-4) message] The sy stem which generated this result transmitted reference range : 3.93 - 5.25 10*6/?L. The reference range was not used to interpret this result as normal/abnormal . HGB (test code = 13.0 g/dL 11.6-15.0 718-7) HCT (test code = 37.9 % 35.7-45.2 4544-3) MCV (test code = 93.1 fL 80.6-95.5 787-2) MCH (test code = 31.9 pg 25.9-32.8 785-6) MCHC (test code = 34.3 g/dL 31.6-35.1 786-4) RDW-SD (test code = 43.5 fL 39.0-49.9 74568-2) RDW-CV (test code = 12.8 % 12.0-15.5 788-0) PLT (test code = See_Comment [Automated 777-3) message] The sy stem which generated this result transmitted reference range : 166 - 358 10*3/ ?L. The reference r stephane was not used to interpret this result as normal/abnormal . MPV (test code = 9.5 fL 9.5-12.9 46801-0) NRBC/100 WBC (test See_Comment [Automat ed code = 3370873710) message] The system which generated this result transmitted reference range : 0.0 - 10.0 /100 WBCs. The refer ence range was not u sed to interpret th is result as normal/abnormal . NRBC x10^3 (test code <0.01 See_Comment [Auto mated = 1185116256) message] The s ystem which generated this result transmitted reference range : 10*3/?L. The reference range was not used to interpret this result as normal/abnormal . GRAN MAT (NEUT) % 70.9 % (test code = 770-8) IMM GRAN % (test code 0.80 % = 6914901036) LYMPH % (test code = 20.1 % 736-9) MONO % (test code = 6.9 % 5905-5) EOS % (test code = 1.2 % 713-8) BASO % (test code = 0.1 % 706-2) GRAN MAT x10^3(ANC) 5.84 10*3/uL 1.88-7.09 (test code = 2802109129) IMM GRAN x10^3 (test 0.07 10*3/uL 0.00-0.06 H code = 2613757390) LYMPH x10^3 (test code 1.66 10*3/uL 1.32-3.29 = 731-0) MONO x10^3 (test code 0.57 10*3/uL 0.33-0.92 = 742-7) EOS x10^3 (test code = 0.10 10*3/uL 0.03-0.39 711-2) BASO x10^3 (test code <0.03 0.01-0.07 = 704-7) Lab Interpretation Abnormal (test code = 91437-2) [address]2022-03-03 20:05:11 Test Item Value Reference Range Interpretation Comments Ventricular rate (test code = 253) Atrial rate (test code = 255) FL interval (test code = 266) QRSD interval (test code = 260) QT interval (test code = 264) QTC interval (test code = 265) P axis 1 (test code = 267) QRS axis 1 (test code = 268) T wave axis (test code = 270) EKG impression (test Normal sinus code = 273) rhythm-Normal ECG-In automated comparison with ECG of 10-JAN-2018 13:56,-No significant change was found- [address]2022-03-03 20:05:11 Test Item Value Reference Range Interpretation Comments Ventricular rate (test code = 253) Atrial rate (test code = 255) FL interval (test code = 266) QRSD interval (test code = 260) QT interval (test code = 264) QTC interval (test code = 265) P axis 1 (test code = 267) QRS axis 1 (test code = 268) T wave axis (test code = 270) EKG impression (test Normal sinus code = 273) rhythm-Normal ECG-In automated comparison with ECG of 10-JAN-2018 13:56,-No significant change was found- [address]2022-03-03 20:05:11 Test Item Value Reference Range Interpretation Comments Ventricular rate (test code = 253) Atrial rate (test code = 255) FL interval (test code = 266) QRSD interval (test code = 260) QT interval (test code = 264) QTC interval (test code = 265) P axis 1 (test code = 267) QRS axis 1 (test code = 268) T wave axis (test code = 270) EKG impression (test Normal sinus code = 273) rhythm-Normal ECG-In automated comparison with ECG of 10-JAN-2018 13:56,-No significant change was found- [facility] [id number] 17:11:00 Test Item Value Reference Range Interpretation Comments Prealbumin (test code = 37 mg/dL 12-34 H 93958-5) EARL (test code = EARL) Performed at: [facility] [id number] Director: Holden Rosario MD, Phone: [phone] Lab Interpretation (test Abnormal code = 63891-3) [facility] [id number] 17:11:00 Test Item Value Reference Range Interpretation Comments Prealbumin (test code = 37 mg/dL 12-34 H 04059-2) EARL (test code = EARL) Performed at: [facility] [id number] Director: Holden Rosario MD, Phone: [phone] Lab Interpretation (test Abnormal code = 65137-2) [facility] [id number] 17:11:00 Test Item Value Reference Range Interpretation Comments Prealbumin (test code = 37 mg/dL 12-34 H 57021-1) EARL (test code = EARL) Performed at: [facility] [id number] Director: Holden Rosario MD, Phone: [phone] Lab Interpretation (test Abnormal code = 24296-8) [facility] METABOLIC PANEL (NA, K, CL, CO2, GLUCOSE, BUN, CREATININE, CA)2021-11-25 21:15:11 Test Item Value Reference Range Interpretation Comments NA (test code = 132 mmol/L 135-145 L 2550835539) K (test code = 3.7 mmol/L 3.5-5.0 6649247198) CL (test code = 100 mmol/L 98-108 9811080246) CO2 TOTAL (test code = 21 mmol/L 23-31 L 6031186469) AGAP (test code = 2-16 5034582247) BUN (test code = 10 mg/dL 7-23 6879450225) GLUCOSE (test code = 104 mg/dL 70-110 6483826393) CREATININE (test code = 0.55 mg/dL 0.50-1.04 7408021303) CALCIUM (test code = 8.8 mg/dL 8.6-10.6 9832147707) eGFR (test code = mL/min/1.73m2 5094824688) EARL (test code = EARL) Association of Glomerular Filtration Rate (GFR) and Staging of Kidney Disease* + --+ --+ ------+| GFR (mL/min/1.73 m2) ?| With Kidney Damage ?| ?Without Kidney Damage+ --------+ --------+ +| ?>90 ?| ?Stage one ?| ? Normal ?+ ---+ ---+ -------+| ?60-89 ?| ?Stage two ?| ? Decreased GFR ? + --+ --+ ------+| ?30-59 ?| ?Stage three ?| ? Stage three ? + --+ --+ ------+| ?15-29 ?| ?Stage four ? | ? Stage four ?+ ---+ ---+ -------+| ?<15 (or dialysis) ? ?| ?Stage five ? | ? Stage five ?+ ---+ ---+ -------+ *Each stage assumes the associated GFR level has been in effect for at least three months. ?Stages 1 to 5, with or without kidney disease, indicate chronic kidney disease. Notes: Determination of stages one and two (with eGFR >59mL/min/1.73 m2) requires estimation of kidney damage for at least three months as defined by structural or functional abnormalities of the kidney, manifested by either:Pathological abnormalities or Markers of kidney damage (including abnormalities in the composition of the blood or urine or abnormalities in imaging tests). Lab Interpretation Abnormal (test code = 22358-2) [facility]. METABOLIC PANEL (49447)2021-11-13 17:05:28 Test Item Value Reference Range Interpretation Comments NA (test code = 130 mmol/L 135-145 L 8581730120) K (test code = 2.4 mmol/L 3.5-5.0 LL 5261705183) CL (test code = 91 mmol/L 98-108 L 7317401218) CO2 TOTAL (test code = 30 mmol/L 23-31 4818585602) AGAP (test code = 2-16 4829731681) BUN (test code = 15 mg/dL 7-23 4890722348) GLUCOSE (test code = 121 mg/dL 70-110 H 8453653188) CREATININE (test code = 0.76 mg/dL 0.50-1.04 3852087127) TOTAL BILI (test code = 0.7 mg/dL 0.1-1.7 3982578184) CALCIUM (test code = 8.9 mg/dL 8.6-10.6 9642906881) T PROTEIN (test code = 7.1 g/dL 6.3-8.2 5124882158) ALBUMIN (test code = 4.2 g/dL 3.5-5.0 0373692962) ALK PHOS (test code = 130 U/L 34-122 H 5037164348) ALTv (test code = 35 U/L 5-35 1742-6) AST(SGOT) (test code = 42 U/L 13-40 H 1584066201) eGFR (test code = mL/min/1.73m2 3385882832) EARL (test code = EARL) Association of Glomerular Filtration Rate (GFR) and Staging of Kidney Disease* + --+ --+ ------+| GFR (mL/min/1.73 m2) ?| With Kidney Damage ?| ?Without Kidney Damage+ --------+ --------+ +| ?>90 ?| ?Stage one ?| ? Normal ?+ ---+ ---+ -------+| ?60-89 ?| ?Stage two ?| ? Decreased GFR ? + --+ --+ ------+| ?30-59 ?| ?Stage three ?| ? Stage three ? + --+ --+ ------+| ?15-29 ?| ?Stage four ? | ? Stage four ?+ ---+ ---+ -------+| ?<15 (or dialysis) ? ?| ?Stage five ? | ? Stage five ?+ ---+ ---+ -------+ *Each stage assumes the associated GFR level has been in effect for at least three months. ?Stages 1 to 5, with or without kidney disease, indicate chronic kidney disease. Notes: Determination of stages one and two (with eGFR >59mL/min/1.73 m2) requires estimation of kidney damage for at least three months as defined by structural or functional abnormalities of the kidney, manifested by either:Pathological abnormalities or Markers of kidney damage (including abnormalities in the composition of the blood or urine or abnormalities in imaging tests). Lab Interpretation Abnormal (test code = 69669-2) [facility] WITH [id number] 16:39:11 Test Item Value Reference Range Interpretation Comments WBC (test code = See_Comment [Automated 4090-2) message] The sy stem which generated this result transmitted reference range : 4.30 - 11.10 10*3/?L. The reference range was not used to interpret this result as normal/abnormal . RBC (test code = See_Comment [Automated 789-8) message] The sy stem which generated this result transmitted reference range : 3.93 - 5.25 10*6/?L. The reference range was not used to interpret this result as normal/abnormal . HGB (test code = 14.1 g/dL 11.6-15.0 718-7) HCT (test code = 39.0 % 35.7-45.2 4544-3) MCV (test code = 90.7 fL 80.6-95.5 787-2) MCH (test code = 32.8 pg 25.9-32.8 785-6) MCHC (test code = 36.2 g/dL 31.6-35.1 H 786-4) RDW-SD (test code = 48.5 fL 39.0-49.9 66153-3) RDW-CV (test code = 14.7 % 12.0-15.5 788-0) PLT (test code = See_Comment H [Automated 777-3) message] The sy stem which generated this result transmitted reference range : 166 - 358 10*3/ ?L. The reference r stepahne was not used to interpret this result as normal/abnormal . MPV (test code = 9.6 fL 9.5-12.9 75530-0) NRBC/100 WBC (test See_Comment [Automat ed code = 6288958215) message] The system which generated this result transmitted reference range : 0.0 - 10.0 /100 WBCs. The refer ence range was not u sed to interpret th is result as normal/abnormal . NRBC x10^3 (test code <0.01 See_Comment [Auto mated = 9828387241) message] The s ystem which generated this result transmitted reference range : 10*3/?L. The reference range was not used to interpret this result as normal/abnormal . GRAN MAT (NEUT) % 58.4 % (test code = 770-8) IMM GRAN % (test code 0.30 % = 4908916751) LYMPH % (test code = 24.4 % 736-9) MONO % (test code = 11.2 % 5905-5) EOS % (test code = 5.3 % 713-8) BASO % (test code = 0.4 % 706-2) GRAN MAT x10^3(ANC) 5.45 10*3/uL 1.88-7.09 (test code = 2565071634) IMM GRAN x10^3 (test 0.03 10*3/uL 0.00-0.06 code = 5648447523) LYMPH x10^3 (test code 2.27 10*3/uL 1.32-3.29 = 731-0) MONO x10^3 (test code 1.04 10*3/uL 0.33-0.92 H = 742-7) EOS x10^3 (test code = 0.49 10*3/uL 0.03-0.39 H 711-2) BASO x10^3 (test code 0.04 10*3/uL 0.01-0.07 = 704-7) Lab Interpretation Abnormal (test code = 08335-8) [facility] Club[facility] Whole [id number] 16:17:09 Test Item Value Reference Range Interpretation Comments LACTIC ACID (test code = 1.50 mmol/L 0.50-2.20 6801564749) Lab Interpretation (test code = Normal 29406-4) [facility] ClubMagnesium [id number] 11:09:00 Test Item Value Reference Range Interpretation Comments Magnesium (test code = 2.0 mg/dL 1.6-2.3 ) EARL (test code = EARL) Performed at: [address] [id number] Director: Holden Rosario MD, Phone: [phone] [facility] [id number] 11:09:00 Test Item Value Reference Range Interpretation Comments Magnesium (test code = 2.0 mg/dL 1.6-2.3 ) EARL (test code = EARL) Performed at: [address] [id number] Director: Holden Rosario MD, Phone: [phone] [facility]2021-11-02 10:09:00 Test Item Value Reference Range Interpretation Comments GGT (test code = See_Comment H [Automated 0564-2) message] The system which generated this result transmitted reference range : 0 - 60 IU/L. Th e reference range was not used to interpret this result as normal/abnormal . EARL (test code = EARL) Performed at: [address] [id number] Director: Holden Rosario MD, Phone: [phone] Lab Interpretation Abnormal (test code = 03876-6) [facility] Status [id number] 10:09:00 Test Item Value Reference Range Interpretation Comments Specimen COMMENT Written Status Report AuthorizationGus hull (test code = AuthorizationWr itten 3285) Authorization Received.Author ization received from Shayla VALLES 1Logged by Crystal Galvez cia EARL (test code Performed at: = EARL) - [address] [id number] Director: Holden Rosario MD, Phone: [phone] [facility] [id number] 16:10:00 Test Item Value Reference Range Interpretation Comments Hemoglobin A1C 5.1 % 4.8-5.6 Prediabetes: (test code = 5.7 - 6.4 4548-4) Diabetes: >6.4 Glycemic contro l for adults with diabetes: <7.0 EARL (test code = Performed at: EARL) [address] [id number] Director: Holden Rosario MD, Phone: [phone] [facility]cosInsulin, [id number] 16:10:00 Test Item Value Reference Range Interpretation Comments Insulin (test See_Comment [Automated code = 85895-7) message] The system which generated this result transmitted reference range : 2.6 - 24.9 uIU/ mL. The reference r stephane was not used to interpret this result as normal/abnormal . EARL (test code = Performed at: ) [address] [id number] Director: Holden Rosario MD, Phone: [phone] [facility] MarcosLipid [id number] 12:59:00 Test Item Value Reference Range Interpretation Comments Cholesterol (test 226 mg/dL 100-199 H code = 2093-3) Triglycerides (test 285 mg/dL 0-149 H code = 2571-8) HDL cholesterol (test 45 mg/dL See_Comment [Auto mated code = 2085-9) message] The system which generated this result transmitted reference range : >=39. The reference range was not used to interpret this result as normal/abnormal . VLDL cholesterol scott 51 mg/dL 5-40 H (test code = 69717-7) LDL Chol Calc ([facility]) 130 mg/dL 0-99 H (test code = 96391-5) Non-HDL cholesterol 181 mg/dL 0-129 H (test code = 97763-5) EARL (test code = EARL) Performed at: - [address] [id number] Director: Holden Rosario MD, Phone: [phone] Lab Interpretation Abnormal (test code = 76854-4) [facility]cosThyroid stimulating [id number] 12:59:00 Test Item Value Reference Range Interpretation Comments TSH (test code See_Comment [Automated m essage] = 66258-6) The system whic h generated this result transmit heron reference range : 0.450 - 4.500 uIU/mL. The reference range was not used to interpret this result as normal/abnormal . EARL (test code Performed at: - = EARL) [address] [id number] Director: Holden Rosario MD, Phone: [phone] Elsi MontoyaCOVID-19 (ID NOW RAPID TESTING)2020-06-12 16:12:00 Test Item Value Reference Range Interpretation Comments SARS-CoV-2 Rapid ID NOW Not Detected Not Detected (test code = 91745-6) EARL (test code = EARL) ID NOW COVID-19 Assay is an isothermal nucleic acid amplification test intended for the qualitative detection of nucleic acid from SARS-CoV-2 viral RNA in nasopharyngeal ([employer]) specimens. It is used under Emergency Use Authorization (EUA) by FDA. The limit of detection (LOD) of the assay is 125 Genome Equivalents/mL. A positive result is indicative of the presence of SARS-CoV-2 RNA. ?Clinical correlation with patient history and other diagnostic information is necessary to determine patient infection status. A negative (Not Detected) result does not preclude SARS-CoV-2 infection. In patients with clinical symptoms and other tests that are consistent with SARS-CoV-2 infection, negative results should be treated as presumptive negative and a new specimen should be tested with alternative PCR molecular test. Invalid: Please collect a new specimen for repeat patient testing if clinically indicated. Lab Interpretation Normal (test code = 18209-9) [facility] ClubURINALYSIS2020-08-05 15:32:00 Test Item Value Reference Range Interpretation Comments APPEARANCE (test code = Clear Clear 7656469297) COLOR (test code = Yellow Yellow 2793286574) PH (test code = 4.8-8.0 6526358585) SP GRAVITY (test code = 1.003-1.030 H 2896910234) GLU U QUAL (test code = Normal Normal 1078211871) BLOOD (test code = 1+ Negative A 3748727080) KETONES (test code = Negative Negative 3371658019) PROTEIN (test code = Negative Negative 2887-8) UROBILIN (test code = Normal Normal 0368292250) BILIRUBIN (test code = Negative Negative 5031991837) NITRITE (test code = Negative Negative 9987836558) LEUK ARABELLA (test code = Negative Negative 1971243694) RBC/HPF (test code = See_Comment H [Autom ated message] 5398574636) The system [employer] generated this result transmitted ref erence range: 0 - 3 HP F. The reference range was not used to int erpret this result as normal/abnormal . WBC/HPF (test code = See_Comment [Autom ated message] 0917490298) The system [employer] generated this result transmitted ref erence range: 0 - 5 HP F. The reference range was not used to int erpret this result as normal/abnormal . BACTERIA (test code = Negative Negative 0847630785) MUCOUS (test code = Marked Negative LPF A 7305726652) SQ EPITH (test code = HPF 0919011717) Lab Interpretation (test Abnormal code = 33268-2) [facility] ClubCT CHEST PULMONARY [id number] 14:09:50HISTORY: Chest pain, rule out P.E. TECHNIQUE: Contrast-enhanced 64- mutidetector CT scan of the chestwascompleted with intravenous injection of ?Omnipaque-350 non ionic contrastmedium. Subsequently numerous sagittal, coronal and MIP reformations weregenerated. FINDINGS: No focal lesions detected in the thyroid gland. Trachea andcentral bronchial airways appear normal. No acute pulmonary thromboembolism detected. Lungs are free of acuteinfiltrates. No pulmonary nodules seen. No pleural or pericardialeffusion,pneumothorax or pneumomediastinum. No aortic aneurysm or dissection. Noenlarged lymph nodesin the hilum or mediastinum. Note made of direct origin of left vertebral artery from the aortic arch,vertical band gastroplasty surgical changes, slightly dilated andair-filled esophagus. No compression fracture deformity seen in thethoracic vertebral bodies. CONCLUSIONS: No acute pulmonary thromboembolism. [facility], Radiant Results Inft User - 06/12/2020 9:10 AM CDTHISTORY: Chest pain, rule out P.E.TECHNIQUE: Contrast-enhanced 64-mutidetector CT scan of the chest wascompleted with intravenous injection of Omnipaque-350 non ionic contrastmedium. Subsequently numerous sagittal, coronal and MIP reformations weregenerated.FINDINGS: No focal lesions detected in the thyroid gland. Trachea andcentral bronchial airways appear normal.No acute pulmonary thromboembolism detected. Lungs are free of acuteinfiltrates. No pulmonary nodules seen. No pleural or pericardial effusion,pneumothorax or pneumomediastinum. No aortic aneurysm or dissection. Noenlarged lymph nodes in the hilum or mediastinum.Note made of direct origin of left vertebral artery from the aortic arch,vertical band gastroplasty surgical changes, slightly dilated andair-filled esophagus. No compression fracture deformity seen in thethoracic vertebral bodies.CONCLUSIONS: No acute pulmonary thromboembolism.[facility] WITH [id number] 14:08:00 Test Item Value Reference Range Interpretation Comments WBC (test code = See_Comment [Automated 6690-2) message] The sy stem which generated this result transmitted reference range : 4.30 - 11.10 10*3/?L. The reference range was not used to interpret this result as normal/abnormal . RBC (test code = See_Comment [Automated 789-8) message] The sy stem which generated this result transmitted reference range : 3.93 - 5.25 10*6/?L. The reference range was not used to interpret this result as normal/abnormal . HGB (test code = 14.5 g/dL 11.6-15 718-7) HCT (test code = 42.9 % 35.7-45.2 4544-3) MCV (test code = 89.9 fL 80.6-95.5 787-2) MCH (test code = 30.4 pg 25.9-32.8 785-6) MCHC (test code = 33.8 g/dL 31.6-35.1 786-4) RDW-SD (test code = 43.6 fL 39-49.9 52506-4) RDW-CV (test code = 13.4 % 12-15.5 788-0) PLT (test code = See_Comment [Automated 777-3) message] The sy stem which generated this result transmitted reference range : 166 - 358 10*3/ ?L. The reference r stephane was not used to interpret this result as normal/abnormal . MPV (test code = 10.5 fL 9.5-12.9 09550-7) IPF % (test code = 4.0 % 1.3-7.7 Platelet count 2105112416) measured by fluorescence method. NRBC/100 WBC (test See_Comment [Automat ed code = 9558464516) message] The system which generated this result transmitted reference range : 0.0 - 10.0 /100 WBCs. The refer ence range was not u sed to interpret th is result as normal/abnormal . NRBC x10^3 (test code <0.01 See_Comment [Auto mated = 5931511530) message] The s ystem which generated this result transmitted reference range : 10*3/?L. The reference range was not used to interpret this result as normal/abnormal . SEG % (test code = 72 % 33-76 71370-2) BAND % (test code = 7 % 0-1 H 63269-5) LYMPH % (test code = 10 % 14-54 L 50417-4) MONO % (test code = 9 % 0-4 H 97996-9) EOS % (test code = 2 % 0-3 00180-6) ANC (test code = 5.90 10*3/uL 1.88-7.09 2951063286) Lab Interpretation Abnormal (test code = 51985-4) [facility] ClubRIVAS [id number] 13:51:00 Test Item Value Reference Range Interpretation Comments TROPONIN I (test <0.012 See_Comment [Automated code = 1889477247) message] The system which generated this result transmitted reference range : <=0.034 ng/mL. The reference range was not used to interpr et this result as normal/abnormal . EARL (test code = Equal or Less than EARL) 0.034 ng/ml---Normal ?Note: Cardiac troponin begins to rise 3-4 hours after the onset of ischemia. Repeat in 4-6 hours if the sample was drawn within 3-4 hours of the onset of the symptom and found normal. Between 0.035 and 0.120 ng/mL--- Borderline. Questionable myocardial injury or necrosis ? ?Note: Serial measurement may be necessary to confirm or exclude the diagnosis of myocardial injury or necrosis; Clinical correlation (symptoms, EKGs, imaging studies, and others) required; Repeat in 4-6 hours if clinically indicated. ? Equal or Higher than 0.121 ng/mL---Abnormal. Myocardial Injury or Necrosis Likely ? Biotin has been reported to cause a negative bias, interpret results relative to patient's use of biotin. ? Lab Interpretation Normal (test code = 62219-1) [facility] ClubLactic Acid Whole [id number] 13:48:00 Test Item Value Reference Range Interpretation Comments LACTIC ACID (test code = 1.21 mmol/L 0029594544) [facility]. METABOLIC PANEL (39224)2020-06-12 13:40:00 Test Item Value Reference Range Interpretation Comments NA (test code = 138 mmol/L 135-145 6018903042) K (test code = 3.7 mmol/L 3.5-5 5703194761) CL (test code = 105 mmol/L 98-108 2772602273) CO2 TOTAL (test code = 24 mmol/L 23-31 2088338134) AGAP (test code = 2-16 8040292906) BUN (test code = 8 mg/dL 7-23 4924181517) GLUCOSE (test code = 112 mg/dL 70-110 H 5953891119) CREATININE (test code = 0.55 mg/dL 0.5-1.04 7593095088) TOTAL BILI (test code = 0.5 mg/dL 0.1-1.8 8787113572) CALCIUM (test code = 9.4 mg/dL 8.6-10.6 0059736896) T PROTEIN (test code = 7.9 g/dL 6.3-8.2 3545469282) ALBUMIN (test code = 4.5 g/dL 3.5-5 9701202773) ALK PHOS (test code = 141 U/L 34-122 H 9964576254) ALTv (test code = 28 U/L 5-35 1742-6) AST(SGOT) (test code = 30 U/L 13-40 6778157103) eGFR Calculation mL/min/1.73m2 (Non-) (test code = 1622918944) eGFR Calculation mL/min/1.73m2 () (test code = 2834134911) EARL (test code = EARL) Association of Glomerular Filtration Rate (GFR) and Staging of Kidney Disease* + --+ --+ ------+| GFR (mL/min/1.73 m2) ?| With Kidney Damage ?| ?Without Kidney Damage+ --------+ --------+ +| ?>90 ?| ?Stage one ?| ? Normal ?+ ---+ ---+ -------+| ?60-89 ?| ?Stage two ?| ? Decreased GFR ? + --+ --+ ------+| ?30-59 ?| ?Stage three ?| ? Stage three ? + --+ --+ ------+| ?15-29 ?| ?Stage four ? | ? Stage four ?+ ---+ ---+ -------+| ?<15 (or dialysis) ? ?| ?Stage five ? | ? Stage five ?+ ---+ ---+ -------+ *Each stage assumes the associated GFR level has been in effect for at least three months. ?Stages 1 to 5, with or without kidney disease, indicate chronic kidney disease. Notes: Determination of stages one and two (with eGFR >59mL/min/1.73 m2) requires estimation of kidney damage for at least three months as defined by structural or functional abnormalities of the kidney, manifested by either:Pathological abnormalities or Markers of kidney damage (including abnormalities in the composition of the blood or urine or abnormalities in imaging tests). Lab Interpretation Abnormal (test code = 94871-5) [facility] ClubPROTHROMBIN TIME / [id number] 13:22:00 Test Item Value Reference Range Interpretation Comments PROTIME PATIENT (test See_Comment [Auto mated message] code = 5964-2) The system Yorxs generated this result transmitted ref erence range: 12.0 - 1 4.7 Seconds. The re ference range was not u sed to interpret this result as normal/abnor mal. INR (test code = 6301-6) Nor mal INR <1.1; Warfarin Therap eutic range 2.0 to 3. 0 or 2.5 to 3.5, dep ending upon the indica tions. Lab Interpretation (test Normal code = 36124-7) [facility] ClubSURGICAL [id number] 14:02:00 RUN DATE: 12/19/19 [facility] *LIVE* PAGE 1 RUN TIME: 1402 Specimen Inquiry RUN USER: INTERFACE --------- ---PATIENT: SABINE GRACE LOC: [place] U #: [id number] AGE/SX: 44/F ROOM: [facility] RE12/09/19REG DR: Lance Munguia MD : 75 BED: 1 DIS: 12/19/19 STATUS: DIS IN TLOC: SPEC #: [id number] RECD: 12/15/19 STATUS: DOTTY ROJAS #: [id number] JOSIE: 12/15/[address] [facility] [address]: Lance Munguia MD ENTERED: 12/19/19 SP TYPE: SURG SPEC OTHR DR: No Primary or Family Physician Self Referred Jocelynn Mukherjee MD,Silvino To,Nish Campbell,Alli Sepulveda,Edward Rueda,Deanna Morrissey MDORDERED: GM LEVEL 4 CODES: F92106 - ESOPHAGUS, NOS [id number] - SMALL INTESTINE COPIES TO: No Primary or Family Physician Self Referred Jocelynn Mukherjee MD [address] [place] [address] Silvino Guerrero MD [address] [place], [place] [address] Nish To MD [address] [facility] [address] [place] [address] Alli Campbell MD [address] [place], [place] [address] OTHER PHONE [phone] (CELL) Edward Sepulveda MD [address] [place] [address] CONTINUED ON NEXT PAGE RUN DATE: 12/19/19 [facility] *LIVE* PAGE 2 RUN TIME: 1402 Specimen Inquiry RUN USER: INTERFACE SPEC #: [id number] PATIENT: SABINE GRACE #[id number] (Continued) COPIES TO: (Continued) Deanna Queen MD [address] [facility] [address] [place], [place] [id number] Lance Munguia MD [address] [place] [address] PROCEDURES: GM LEVEL 4 (Incomplete) TISSUES: 1. SMALL INTESTINE, NOS - Small intestine, jejunum, bx. 2. ESOPHAGUS, NOS - Esophagus, GE junction, bx. FINAL DIAGNOSIS Small intestine, jejunum, bx.: Intact villous architecture, no evidence of celiac sprue. 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 The epithelium shows some atypia favored to be reactive in nature. Alcian blue- PAS staining highlights the focal intestinal metaplasia. (When special stains have been reviewed, the appropriate positive/negative controls have been reviewed and are appropriately positive/negative). 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 CONTINUED ON NEXT PAGE RUN DATE: 12/19/19 [employer] *LIVE* PAGE 3 RUN TIME: 1402 Specimen Inquiry RUN USER: INTERFACE SPEC #: [id number] PATIENT: SABINE GRACE #[id number] (Continued)-- POST-OP DIAGNOSIS GE junction polyp, status post gastric bypass PRE- OP DIAGNOSIS Gastrointestinal bleed REVIEWED BY: FLAKITO Signed SIGNATURE ON FILE Balta Helm DO 12/19/19 1402 END OF REPORT HGB HCT 2019-12-18 15:12:00 Test Item Value Reference Range Interpretation Comments HEMOGLOBIN (test code = HGB) 10.0 g/dL 11.0-15.0 L HEMATOCRIT (test code = HCT) 32.7 % 33.0-45.0 L CBC W/AUTO [id number] 09:31:00 Test Item Value Reference Range Interpretation [...] (test code NO = MDIFF) BASIC METABOLIC [id number] 08:03:00 Test Item Value Reference Range Interpretation [...] code = 7.9 mg/dL 8.0-10.5 L CA) [id number] 08:03:00 Test Item Value Reference Range Interpretation Comments MAGNESIUM (test code = MAG) 2.10 mg/dL 1.8-2.4 N CBC W/AUTO [id number] 07:41:00 Test Item Value Reference Range Interpretation [...] (test code NO = MDIFF) HCG SERUM [id number] 10:08:00 Test Item Value Reference Range Interpretation Comments HCG SERUM QUAL (test code = SERUM NEGATIVE NEGATIVE HCGQL) PROTHROMBIN [id number] 09:59:00 Test Item Value Reference Range Interpretation Comments PROTHROMBIN TIME 12.2 SECONDS 9.3-12.9 N PATIENT (test code = PTP) INTERNATIONAL NORMAL 1.1 0.8-1.2 N TARGET INR BY RATIO (test code = INDICATIO N Indication INR) INR1. Prophylax is of venous thrombos is 2.0 - 3.0 (orthoped ic surgery), Proph ylaxis of venous throm bosis (other than hig h-risk surgery), Treat ment of Deep Vein Thrombosis/Pulm onary Embolism, Preve ntion of systemic emb olism - Tissue heart va lves, Acute Myocardia l Infarction (to prevent systemic emboli sm), Valvular heart disease, Atrial Fibrillation, Bileaflet mecha nical valve in aortic position.2. Mec hanical prosthetic valv es (high risk), 2. 5 - 3.5 Presence of Lup us Anticoagulant o r Antiphospholipi d Antibodies, Pre vention of systemic emb olism - Acute Myocardia l Infarction (to prevent recurrent infar ct). THROMBOPLASTIN TIME [id number] 09:59:00 Test Item Value Reference Range Interpretation Comments THROMBOPLASTIN TIME 33.1 Seconds 25.0-39.5 N Therape utic Range: PARTIAL (test code = 50.4 - 88.3 Seconds PTT) Effective 02/21/2019 COMPREHENSIVE METABOLIC [id number] 07:05:00 Test Item Value Reference Range Interpretation [...] TOTAL (test code = ALKP) CBC W/AUTO [id number] 06:54:00 Test Item Value Reference Range Interpretation [...] REQUIRED (test code NO = MDIFF) HGB [id number] 01:33:00 Test Item Value Reference Range Interpretation Comments HEMOGLOBIN (test code = HGB) 9.0 g/dL 11.0-15.0 L HEMATOCRIT (test code = HCT) 28.4 % 33.0-45.0 L COMPREHENSIVE METABOLIC [id number] 04:43:00 Test Item Value Reference Range Interpretation [...] TOTAL (test code = ALKP) CBC W/AUTO [id number] 04:20:00 Test Item Value Reference Range Interpretation [...] = MDIFF) - CTA ABD PEL W [id number] 21:11:00 Name: SABINE GRACE [facility] : 1975 Age/S: 44 / F [address] [place] [address] Unit #: [id number] Loc: [place] [address] Phys: JorgeWillis Acct: [id number] Dis Date: Status: ADM IN PHONE #: [phone] Exam Date: 12/13/20192027 FAX #: [phone] Reason: BRIGHT RED BLOOD IN TOLIET. EXAMS: CPT CODE: [id number] CTA ABD PEL W CONT 95604 Clinical Indication: BRIGHT RED BLOOD IN TOILET. [...] lung bases are clear. LIVER: The liver parenchymais normal in appearance without masses or intrahepatic biliary ductal dilatation. The portal vein isnormal in caliber. BILIARY TREE: The common bile duct is normal in caliber without evidence of filling defects. GALLBLADDER: The gallbladder is nonvisualized, likely resected. PANCREAS: The pancreas isunremarkable. The pancreatic duct is normal in caliber. SPLEEN: The spleen is normal in size and there are no parenchymal abnormalities. ADRENALS: The right adrenal gland is unremarkable. The left adrenal gland is unremarkable. KIDNEYS: The kidneys demonstrates normal contrast enhancement. A 2.0 cm [...] 1 Signed Report (CONTINUED) Name: SABINE GRACE [facility] : 1975 Age/S: 44 / F [address] [place] [address] Unit #: [id number]: [place] [address] Phys: Willis Patel DO Acct: [id number] Dis Date: Status: ADM IN PHONE #: [phone] Exam Date: 12/13/20192027 FAX #: [phone] Reason: BRIGHT RED BLOOD IN TOLIET. EXAMS: C PT CODE: [id number] CTA ABD PEL W CONT 80924 (Continued) PELVIS: There are no pelvic masses. The urinary bladder is unremarkable. The uterus and ovaries are unremarkable. PERITONEUM: There is no evidence for free intraperitoneal fluid or air. SOFT TISSUES: The soft tissues are unremarkable. There is no evidence of masses or hernias. LYMPH NODES: There is no evidence of mesenteric, retroperitoneal, oringuinal lymphadenopathy. VASCULATURE: The abdominal aorta is normal in caliber. The branches of theabdominal aorta are widely patent. MUSCULOSKELETAL: The visualized bony skeleton is unremarkable. IMPRESSION: 1. No acute findings in abdomen and pelvis. No evidence of IV contrast extravasation to suggest acute bleeding. 2. Cholecystectomy. 3. Left renal cyst. 4. Surgical changes of gastroplasty. 5.Colonic diverticulosis. SL: JULIAN at 2111 Reported and signed by: Han Quinones M.D. CC: Lance Munguia MD; Willis Patel DO Technologist:Michelle Goodwin RT(R)(CT) CTDI: DLP: Trnscb Date/Time: 12/13/2019 (2110) [email or web address] Orig Print D/T: S: 12/13/2019 (2113) PAGE 2 Signed ReportHGB [id number] 18:54:00 Test Item Value Reference Range Interpretation Comments HEMOGLOBIN (test code = HGB) 7.6 g/dL 11.0-15.0 L HEMATOCRIT (test code = HCT) 23.6 % 33.0-45.0 L HGB [id number] 12:53:00 Test Item Value Reference Range Interpretation Comments HEMOGLOBIN (test code = HGB) 8.7 g/dL 11.0-15.0 L HEMATOCRIT (test code = HCT) 26.6 % 33.0-45.0 L BASIC METABOLIC [id number] 07:02:00 Test Item Value Reference Range Interpretation [...] code = 7.3 mg/dL 8.0-10.5 L CA) [id number] 07:02:00 Test Item Value Reference Range Interpretation Comments PHOSPHOROUS (test code = PHOS) 2.8 MG/DL 2.5-4.9 N [id number] 07:02:00 Test Item Value Reference Range Interpretation Comments MAGNESIUM (test code = MAG) 2.30 mg/dL 1.8-2.4 N BASIC METABOLIC [id number] 06:56:00 Test Item Value Reference Range Interpretation [...] code = CA) 7.3 mg/dL 8.0-10.5 L [id number] 06:56:00 Test Item Value Reference Range Interpretation Comments PHOSPHOROUS (test code = PHOS) MG/DL 2.5-4.9 [id number] 06:56:00 Test Item Value Reference Range Interpretation Comments MAGNESIUM (test code = MAG) 2.30 mg/dL 1.8-2.4 N LACTIC [id number] 06:51:00 Test Item Value Reference Range Interpretation Comments LACTIC ACID (test code = LACT) 0.6 mmol/L 0.4-1.9 N CBC W/AUTO [id number] 06:37:00 Test Item Value Reference Range Interpretation [...] REQUIRED (test code NO = MDIFF) HGB [id number] 01:13:00 Test Item Value Reference Range Interpretation Comments HEMOGLOBIN (test code = HGB) 6.1 g/dL 11.0-15.0 LL HEMATOCRIT (test code = HCT) 18.7 % 33.0-45.0 L HGB [id number] 18:18:00 Test Item Value Reference Range Interpretation Comments HEMOGLOBIN (test code = HGB) 7.6 g/dL 11.0-15.0 L HEMATOCRIT (test code = HCT) 23.6 % 33.0-45.0 L PROTHROMBIN [id number] 07:21:00 Test Item Value Reference Range Interpretation Comments PROTHROMBIN TIME 13.2 SECONDS 9.3-12.9 H PATIENT (test code = PTP) INTERNATIONAL NORMAL 1.2 0.8-1.2 N TARGET INR BY RATIO (test code = INDICATIO N Indication INR) INR1. Prophylax is of venous thrombos is 2.0 - 3.0 (orthoped ic surgery), Proph ylaxis of venous throm bosis (other than hig h-risk surgery), Treat ment of Deep Vein Thrombosis/Pulm onary Embolism, Preve ntion of systemic emb olism - Tissue heart va lves, Acute Myocardia l Infarction (to prevent systemic emboli sm), Valvular heart disease, Atrial Fibrillation, Bileaflet mecha nical valve in aortic position.2. Mec hanical prosthetic valv es (high risk), 2. 5 - 3.5 Presence of Lup us Anticoagulant o r Antiphospholipi d Antibodies, Pre vention of systemic emb olism - Acute Myocardia l Infarction (to prevent recurrent infar ct). THROMBOPLASTIN TIME [id number] 07:21:00 Test Item Value Reference Range Interpretation Comments THROMBOPLASTIN TIME 25.7 Seconds 25.0-39.5 N Therape utic Range: PARTIAL (test code = 50.4 - 88.3 Seconds PTT) Effective 02/21/2019 CBC W/AUTO [id number] 06:57:00 Test Item Value Reference Range Interpretation [...] (test code NO = MDIFF) BASIC METABOLIC [id number] 06:16:00 Test Item Value Reference Range Interpretation [...] code = 7.4 mg/dL 8.0-10.5 L CA) [id number] 06:16:00 Test Item Value Reference Range Interpretation Comments PHOSPHOROUS (test code = PHOS) 2.9 MG/DL 2.5-4.9 N [id number] 06:16:00 Test Item Value Reference Range Interpretation Comments MAGNESIUM (test code = MAG) 2.30 mg/dL 1.8-2.4 CALCIUM [id number] 06:16:00 Test Item Value Reference Range Interpretation Comments CALCIUM IONIZED (test code = FILI) 1.13 MMOL/L 1.12-1.32 N BASIC METABOLIC [id number] 06:06:00 Test Item Value Reference Range Interpretation [...] CALCIUM (test code = CA) mg/dL 8.0-10.5 [id number] 06:06:00 Test Item Value Reference Range Interpretation Comments PHOSPHOROUS (test code = PHOS) MG/DL 2.5-4.9 [id number] 06:06:00 Test Item Value Reference Range Interpretation Comments MAGNESIUM (test code = MAG) mg/dL 1.8-2.4 CALCIUM [id number] 06:06:00 Test Item Value Reference Range Interpretation Comments CALCIUM IONIZED (test code = FILI) 1.13 MMOL/L 1.12-1.32 N HGB [id number] 00:56:00 Test Item Value Reference Range Interpretation Comments HEMOGLOBIN (test code = HGB) 7.7 g/dL 11.0-15.0 L HEMATOCRIT (test code = HCT) 23.4 % 33.0-45.0 L TOTAL IRON BINDING [id number] 00:54:00 Test Item Value Reference Range Interpretation Comments SERUM IRON (test code = IRON) 19 mcg/dL 35-150 L TOTAL IRON BINDING CAPACITY (test 319 mcg/dL 260-445 N code = TIBC) UIBC (test code = UIBC) 300 mcg/dL IRON SATURATION (test code = 6.0 % 14-34 L FESAT) VITAMIN [id number] 00:54:00 Test Item Value Reference Range Interpretation Comments VITAMIN B12 (test code = VITB12) 196 pg/mL 193-986 N [id number] 00:54:00 Test Item Value Reference Range Interpretation Comments FERRITIN (test code = NUBIA) 7.3 ng/mL 11.0-306.8 L HGB [id number] 18:24:00 Test Item Value Reference Range Interpretation Comments HEMOGLOBIN (test code = HGB) 7.5 g/dL 11.0-15.0 L HEMATOCRIT (test code = HCT) 23.3 % 33.0-45.0 L - NM ACUTE GI BLOOD [id number] 16:25:00 FAX: Alli Ross MD [phone] [place]: St: [facility] FAX: Lance Giang [phone] - Name: SABINE GRACE [facility] : 1975 Age/S: 44/F [address] [place] [address] Unit #: [id number] Loc: [place] [address] Phys: Alli Campbell MD Acct: [id number] Dis Date: Status: ADM IN PHONE #: [phone] Exam Date: 12/11/2019 1439 FAX #: [phone] Reason: gi bleed. EXAMS: CPT CODE: [id number] NM ACUTE GI BLOOD LOSS 45112 Nuclear medicine acute GI blood loss study. INDICATION: GI bleed. Anemia. Abdominal pain. Melena. Nausea and vomiting. COMPARISON: 12/09/[address] abdomen and pelvis. TECHN IQUE: The patient was intravenously injected with 20 mCi of technetium 99m labeled red blood cells via the right neck Central line and serial AP abdomen images were obtained at 1 minute intervals over 60 minutes. FINDINGS: No abnormal radiotracer accumulation or migration is identified on these images. Expected activity over the heart and faintly over the hepatic and splenic shadows is seen. Some linear photopenic defect is seen in the upper abdomen on some images. IMPRESSION: No scintigraphic evidence for active GI bleed. SL: SG-H at 1625 Reported and signed by: Noé Contreras M.D. CC: Alli Campbell MD; Lance Munguia MD Technologist: ALICE Anand (N)(CT); ... Trnscrd Date/Time/By: 12/11/2019 (1624) : By: [email or web address] Orig Print D/T: S: 12/11/2019 (2031) PAGE 1 Signed ReportHGB [id number] 12:40:00 Test Item Value Reference Range Interpretation Comments HEMOGLOBIN (test code = HGB) 6.5 g/dL 11.0-15.0 L HEMATOCRIT (test code = HCT) 19.9 % 33.0-45.0 L BASIC METABOLIC [id number] 05:45:00 Test Item Value Reference Range Interpretation [...] code = 7.2 mg/dL 8.0-10.5 L CA) [id number] 05:45:00 Test Item Value Reference Range Interpretation Comments PHOSPHOROUS (test code = PHOS) 2.4 MG/DL 2.5-4.9 L [id number] 05:45:00 Test Item Value Reference Range Interpretation Comments MAGNESIUM (test code = MAG) 1.90 mg/dL 1.8-2.4 N CALCIUM [id number] 05:45:00 Test Item Value Reference Range Interpretation Comments CALCIUM IONIZED (test code = FILI) 1.16 MMOL/L 1.12-1.32 N CBC W/AUTO [id number] 05:38:00 Test Item Value Reference Range Interpretation [...] (test code NO = MDIFF) BASIC METABOLIC [id number] 05:35:00 Test Item Value Reference Range Interpretation [...] CALCIUM (test code = CA) mg/dL 8.0-10.5 [id number] 05:35:00 Test Item Value Reference Range Interpretation Comments PHOSPHOROUS (test code = PHOS) MG/DL 2.5-4.9 [id number] 05:35:00 Test Item Value Reference Range Interpretation Comments MAGNESIUM (test code = MAG) mg/dL 1.8-2.4 CALCIUM [id number] 05:35:00 Test Item Value Reference Range Interpretation Comments CALCIUM IONIZED (test code = FILI) 1.16 MMOL/L 1.12-1.32 N HGB [id number] 00:19:00 Test Item Value Reference Range Interpretation Comments HEMOGLOBIN (test code = HGB) 7.2 g/dL 11.0-15.0 L HEMATOCRIT (test code = HCT) 21.5 % 33.0-45.0 L HGB [id number] 18:18:00 Test Item Value Reference Range Interpretation Comments HEMOGLOBIN (test code = HGB) 7.4 g/dL 11.0-15.0 L HEMATOCRIT (test code = HCT) 22.2 % 33.0-45.0 L HGB [id number] 14:07:00 Test Item Value Reference Range Interpretation Comments HEMOGLOBIN (test code = HGB) 7.8 g/dL 11.0-15.0 L HEMATOCRIT (test code = HCT) 23.1 % 33.0-45.0 L COMPREHENSIVE METABOLIC [id number] 07:21:00 Test Item Value Reference Range Interpretation [...] 20-125 N TOTAL (test code = ALKP) [id number] 07:21:00 Test Item Value Reference Range Interpretation Comments PHOSPHOROUS (test code = PHOS) 3.0 MG/DL 2.5-4.9 N [id number] 07:21:00 Test Item Value Reference Range Interpretation Comments MAGNESIUM (test code = MAG) 1.90 mg/dL 1.8-2.4 N CALCIUM [id number] 07:21:00 Test Item Value Reference Range Interpretation Comments CALCIUM IONIZED (test code = FILI) 1.11 MMOL/L 1.12-1.32 L PROTHROMBIN [id number] 07:19:00 Test Item Value Reference Range Interpretation Comments PROTHROMBIN TIME 13.9 SECONDS 9.3-12.9 H PATIENT (test code = PTP) INTERNATIONAL NORMAL 1.3 0.8-1.2 H TARGET INR BY RATIO (test code = INDICATIO N Indication INR) INR1. Prophylax is of venous thrombos is 2.0 - 3.0 (orthoped ic surgery), Proph ylaxis of venous throm bosis (other than hig h-risk surgery), Treat ment of Deep Vein Thrombosis/Pulm onary Embolism, Preve ntion of systemic emb olism - Tissue heart va lves, Acute Myocardia l Infarction (to prevent systemic emboli sm), Valvular heart disease, Atrial Fibrillation, Bileaflet mecha nical valve in aortic position.2. Mec hanical prosthetic valv es (high risk), 2. 5 - 3.5 Presence of Lup us Anticoagulant o r Antiphospholipi d Antibodies, Pre vention of systemic emb olism - Acute Myocardia l Infarction (to prevent recurrent infar ct). [id number] 07:14:00 Test Item Value Reference Range Interpretation Comments FERRITIN (test code = NUBIA) 6.8 ng/mL 11.0-306.8 L COMPREHENSIVE METABOLIC [id number] 07:14:00 Test Item Value Reference Range Interpretation [...] TOTAL (test IUnit/L 20-125 code = ALKP) [id number] 07:14:00 Test Item Value Reference Range Interpretation Comments PHOSPHOROUS (test code = PHOS) MG/DL 2.5-4.9 [id number] 07:14:00 Test Item Value Reference Range Interpretation Comments MAGNESIUM (test code = MAG) mg/dL 1.8-2.4 CALCIUM [id number] 07:14:00 Test Item Value Reference Range Interpretation Comments CALCIUM IONIZED (test code = FILI) 1.11 MMOL/L 1.12-1.32 L COMPREHENSIVE METABOLIC [id number] 07:04:00 Test Item Value Reference Range Interpretation [...] TOTAL (test IUnit/L 20-125 code = ALKP) [id number] 07:04:00 Test Item Value Reference Range Interpretation Comments PHOSPHOROUS (test code = PHOS) MG/DL 2.5-4.9 [id number] 07:04:00 Test Item Value Reference Range Interpretation Comments MAGNESIUM (test code = MAG) mg/dL 1.8-2.4 CALCIUM [id number] 07:04:00 Test Item Value Reference Range Interpretation Comments CALCIUM IONIZED (test code = FILI) 1.11 MMOL/L 1.12-1.32 L CBC W/AUTO [id number] 07:00:00 Test Item Value Reference Range Interpretation [...] REQUIRED (test code NO = MDIFF) HGB [id number] 21:21:00 Test Item Value Reference Range Interpretation Comments HEMOGLOBIN (test code = HGB) 6.6 g/dL 11.0-15.0 L HEMATOCRIT (test code = HCT) 19.8 % 33.0-45.0 L - XR CHEST 1 [id number] 20:18:00 FAX: Amari Wilson JR, MD [phone] [place]: St: [facility] FAX: Lance Giang [phone] - Name: SABINE GRACE [facility] : 1975 Age/S: 44/F [address] [place] [address] Unit #: [id number] Loc: [address] [address] Phys: Amari Mendiola JR, MD Acct: [id number] Dis Date: Status: ADM IN PHONE #: [phone] Exam Date: 12/09/20191952 FAX #: [phone] Reason: POST CENTRAL LINE PLACEMENT RIGHT INTERNAL JUGU EXAMS: CPT CODE: [id number] XR CHEST 1 V 74105 Chest, single view dated 12/09/2019. HISTORY: GIbleed. Post Central line placement. Comparison is made [...] jugular central venous catheter placement. No radiographic evidence of acute cardiopulmonary disease. SL: 131 at 2018 Reported and signed by: Alphonse Coronado M.D. CC: Amari Mendiola JR, MD; Lance Munguia MD Technologist: RT Santhosh(R) Trnmerd Date/Time/By: 12/09/2019 (2017) : By: GrupoDMM Orig Print D/T: S: 12/09/2019 (2020) PAGE 1 Signed ReportHGB [id number] 11:51:00 Test Item Value Reference Range Interpretation Comments HEMOGLOBIN (test code = HGB) 6.1 g/dL 11.0-15.0 LL HEMATOCRIT (test code = HCT) 19.1 % 33.0-45.0 L PROTHROMBIN [id number] 10:31:00 Test Item Value Reference Range Interpretation Comments PROTHROMBIN TIME 13.7 SECONDS 9.3-12.9 H PATIENT (test code = PTP) INTERNATIONAL NORMAL 1.3 0.8-1.2 H TARGET INR BY RATIO (test code = INDICATIO N Indication INR) INR1. Prophylax is of venous thrombos is 2.0 - 3.0 (orthoped ic surgery), Proph ylaxis of venous throm bosis (other than hig h-risk surgery), Treat ment of Deep Vein Thrombosis/Pulm onary Embolism, Preve ntion of systemic emb olism - Tissue heart va lves, Acute Myocardia l Infarction (to prevent systemic emboli sm), Valvular heart disease, Atrial Fibrillation, Bileaflet mecha nical valve in aortic position.2. Mec hanical prosthetic valv es (high risk), 2. 5 - 3.5 Presence of Lup us Anticoagulant o r Antiphospholipi d Antibodies, Pre vention of systemic emb olism - Acute Myocardia l Infarction (to prevent recurrent infar ct). THROMBOPLASTIN TIME [id number] 10:31:00 Test Item Value Reference Range Interpretation Comments THROMBOPLASTIN TIME 25.8 Seconds 25.0-39.5 N Therape utic Range: PARTIAL (test code = 50.4 - 88.3 Seconds PTT) Effective 02/21/2019 BASIC METABOLIC [id number] 10:30:00 Test Item Value Reference Range Interpretation [...] code = CA) mg/dL 8.0-10.5 HEPATIC FUNCTION [id number] 10:30:00 Test Item Value Reference Range Interpretation Comments TOTAL PROTEIN (test code = PROT) g/dL 6.4-8.2 ALBUMIN (test code = ALB) g/dL 3.4-5.0 BILIRUBIN TOTAL (test code = BILT) MG/DL <1.5 BILIRUBIN DIRECT (test code = BILD) MG/DL 0.0-0.30 SGOT/AST (test code = AST) IUnit/L 15-37 SGPT/ALT (test code = ALT) IUnit/L 15-65 ALKALINE PHOSPHATASE TOTAL (test IUnit/L 20-125 code = ALKP) [id number] 10:30:00 Test Item Value Reference Range Interpretation Comments LIPASE (test code = LIP) IUnit/L 73-393 HCG SERUM [id number] 10:30:00 Test Item Value Reference Range Interpretation Comments HCG SERUM QUAL (test code = SERUM NEGATIVE NEGATIVE HCGQL) [id number] 10:30:00 Test Item Value Reference Range Interpretation Comments TROPONIN-I 0.025 ng/mL 0.000-0.045 N Negative: <= 0. 045 Positive: (test code = >= 0.046 Correl ation with TROPI) serial results, other cardiac markers andclin ical findings is necessary to determine the clinicalsignifi cance of this result. Results using different metho dologies should not be c omparedto one another as dionte titative results may vivek y by method. BASIC METABOLIC [id number] 10:30:00 Test Item Value Reference Range Interpretation [...] 7.7 mg/dL 8.0-10.5 L CA) HEPATIC FUNCTION [id number] 10:30:00 Test Item Value Reference Range Interpretation [...] 89 IUnit/L 20-125 N code = ALKP) [id number] 10:30:00 Test Item Value Reference Range Interpretation Comments LIPASE (test code = LIP) 49 IUnit/L 73-393 L HCG SERUM [id number] 10:30:00 Test Item Value Reference Range Interpretation Comments HCG SERUM QUAL (test code = SERUM NEGATIVE NEGATIVE HCGQL) [id number] 10:30:00 Test Item Value Reference Range Interpretation Comments TROPONIN-I 0.025 ng/mL 0.000-0.045 N Negative: <= 0. 045 Positive: (test code = >= 0.046 Correl ation with TROPI) serial results, other cardiac markers andclin ical findings is necessary to determine the clinicalsignifi cance of this result. Results using different metho dologies should not be c omparedto one another as dionte titative results may vivek y by method. BASIC METABOLIC [id number] 10:18:00 Test Item Value Reference Range Interpretation [...] code = CA) mg/dL 8.0-10.5 HEPATIC FUNCTION [id number] 10:18:00 Test Item Value Reference Range Interpretation Comments TOTAL PROTEIN (test code = PROT) g/dL 6.4-8.2 ALBUMIN (test code = ALB) g/dL 3.4-5.0 BILIRUBIN TOTAL (test code = BILT) MG/DL <1.5 BILIRUBIN DIRECT (test code = BILD) MG/DL 0.0-0.30 SGOT/AST (test code = AST) IUnit/L 15-37 SGPT/ALT (test code = ALT) IUnit/L 15-65 ALKALINE PHOSPHATASE TOTAL (test IUnit/L 20-125 code = ALKP) [id number] 10:18:00 Test Item Value Reference Range Interpretation Comments LIPASE (test code = LIP) IUnit/L 73-393 HCG SERUM [id number] 10:18:00 Test Item Value Reference Range Interpretation Comments HCG SERUM QUAL (test code = SERUM NEGATIVE NEGATIVE HCGQL) [id number] 10:18:00 Test Item Value Reference Range Interpretation Comments TROPONIN-I (test code = TROPI) ng/mL 0.000-0.045 CBC W/AUTO [id number] 10:12:00 Test Item Value Reference Range Interpretation [...] code = MDIFF) - XR CHEST 1 [id number] 10:09:00 FAX: Elva Orozco DO [phone] [place]: St: PRE Name: SABINE GRACE [facility] : 1975 Age/S: 44/F [address] [place] [address] Unit #: [id number] Loc: [address] [address] Phys: Elva Morales DO Acct:[id number] Dis Date: Status: PRE ER PHONE #: [phone] Exam Date: 12/09/2019 1006 FAX #: [phone] Reason: Abdominal Pain EXAMS: CPT CODE: [id number] XR CHEST 1 V 78767 Patient: SABINE GRACE. : 1975; Age: 44 years; Gender: Female. MR: [id number]. Ordering physician: Elva Morales DO.PORTABLE CHEST AP: HISTORY: GI bleeding and abdominal pain. COMPARISON: None. FINDINGS: Portable frontal view of the chest was obtained. The lungs are clear bilaterally. The cardiomediastinal silhouette and pulmonary vasculature are unremarkable. The partially visualized upper abdomen is unremarkable.IMPRESSION: No acute disease in the chest. SL: [id number] Electronically Signed by Olinda Baker 12/09/2019 at 1009 Reported and signed by: Jerald Garner M.D. CC: Elva Morales DO Technologist: RT Santhosh(R) Trnscrd Date/Time/By: 12/09/2019 (1009) : By: [email or web address] Orig Print D/T: S: 12/09/2019 (1012) PAGE 1 Signed QsccalLaajjyckq6756-47-43 16:37:37412 [facility]/L[facility] AfdwzhgZzijlwuuf3625-80-69 16:37:003.7 [facility] Fjeliauxu7200-30-48 16:37:000.8[facility] IqiyyxgEmunvybqz7074-42-53 16:37:007 [facility] NrvqzmwOehsgjokz1416-78-66 16:37:00 Test Item Value Reference Range Interpretation Comments BUN/CREAT (test code = BUN/CREAT) 9 05-02 [facility] EhzkjceLdejeaurh4521-85-03 16:37:003.7[facility] 2015-05-09 16:37:008.7[facility] SqjlndiTqkgokmnv2703-97-75 16:37:0063[facility] DwxxcmnPtvlwfclh3080-93-82 16:37:0032[facility] HjrnptrVejtubhsj9116-91-61 16:37:16414Epucijob GinlcisXaujhrzlvb8495-29-17 16:37:0013.9[facility] Bvvkcbwwaj2083-86-96 16:37:0042.6[facility] UikovheCryhatltyy7485-50-43 16:37:00 227 K/CMMMemorial OhlwozbRucvmsifr6638-81-92 20:45:003.1[facility] Fljgpbcho3588-91-78 20:45:0086[facility] MxqhyrdRxvjoahvn4730-26-17 20:45:002.0 [facility] DdaltnlMmbqnxoxr4848-42-86 20:45:67258 [facility]/L[facility] 2015-02-15 20:45:003.8 MEQ/LMem[facility] BbcquspWzxwzovhe9619-78-85 20:45:000.8 [facility] AtruvwiYbhkrcnct8665-14-81 20:45:0010[facility] 2015-02-15 20:45:00 Test Item Value Reference Range Interpretation Comments BUN/CREAT (test code = BUN/CREAT) 12 05-02 [facility] BupemwpFyzdijbfw4775-41-65 20:45:004.0[facility] 2015-02-15 20:45:009.1[facility] TzwtxfaComqwnhzl8623-76-03 20:45:0095[facility] WgvhtpwVeyrjfvhg5320-77-60 20:45:0066[facility] UvskgmxMrblxnlwo6810-41-65 20:45:02650Naqmxdcp XxbomtuQfxrccuaf7510-76-88 20:45:003.1[facility] Ftufpzegw5628-47-98 20:45:0086[facility] YebrlcoDtjvzawmx0642-80-70 20:45:002.0 [facility] LoijfxpKdpqhxwsgc3629-95-50 20:45:0015.5[facility]ann[facility] 2015-02-15 20:45:0046.2[facility] GplajioOvzjxhwunp6721-04-61 20:45:46030 K/[facility] UlhdnhdGxaegiuymv8011-42-14 20:45:006[facility] 2014-12-23 02:50:000.2[facility] MrdoxfzMtowtermd6004-93-50 02:50:000.2[facility] AlnvyksIteoyurix3977-12-96 02:50:000.2[facility] FsyrtvdUpwqcaykc2588-37-49 02:50:000.2[facility] VgqtdfcOlexduoms7298-19-13 02:50:000.2[facility] Sueexmwhu7885-02-93 02:50:000.2[facility] CtsjfloPfhuqnvlf4770-57-17 14:01:0035 [facility] OvdneqmWrfhxrcbq8507-04-50 14:01:0035[facility] 2014-12-21 14:01:0035[facility] VyftvvhDrhssykzz8866-81-86 14:01:0035[facility] PjejpohLbumvzfoa3658-80-61 14:01:0035[facility] XpgcnriKdnaciblz9175-37-22 14:01:0035[facility] AnfwrglYaraegovq8505-80-32 12:29:00<3 ng/dLMemorial FdhgsooTrknljqwv0206-00-47 12:29:00<3 ng/dLMemorial HermannChemistry 2014-12-21 12:29:00<3 ng/dLMemorial NqwtuvgEqvbsblky6606-99-70 12:29:00<3 ng/dLMemorial DzqhotmWidbhmzfe5263-63-61 12:29:00<3 ng/dLMem[facility] Oktpuydrj2925-09-24 12:29:00<3 ng/dLMemorial AfutuybDfxnqkhty2578-44-57 09:26:39372Hwgwhxjs YgknpcdXvvlminsk4655-63-38 09:26:66654Hudkqskw Ezra Qxujrlkcy3026-27-04 09:26:28414Symscito UrkjknkLpkejosdi1709-54-74 09:26:79901 [facility] EttraisNqqeiwaln5935-09-43 09:26:18109Ytexlqcd [facility]annChemistry 2014-12-21 09:26:06238Kyjrxkpe UmwqwxlGfsksqsyy4005-51-80 09:16:003.9[facility] GokxjltOhdbnevru5575-86-78 09:16:0061[facility] BuenfqrUlhrkfjnk1767-61-77 09:16:0050[facility] HujosakLofykrwxt6845-06-93 09:16:003.9[facility] Cmjadqmje4582-04-17 09:16:0061[facility] VvdusmoYmncfawxc3958-70-69 09:16:0050 [facility] GutusggVelxxizfk9088-38-49 09:16:003.9[facility] 2014-12-21 09:16:0061[facility] JhvofbmLhmiobfed9937-40-91 09:16:0050[facility] IlvalviBzytttxox3706-72-80 09:16:003.9[facility] TphaevkEeqvmhgdq4536-83-64 09:16:0061[facility] MfbfkjtNkstdmsey2120-43-74 09:16:0050[facility] Yfhmezylq3814-74-35 09:16:003.9[facility] TpcdzenNluvxtcsd6931-50-94 09:16:0061 [facility] TazsdgxXkontahsw8559-28-72 09:16:003.9[facility] 2014-12-21 09:16:0061[facility] IgdcvbuRfeajcvdj0615-58-63 09:11:005[facility] HcxwcbvNuyryqhva9967-21-55 09:11:000.58[facility] BucfijrMamuopiop3822-64-13 09:11:00 Test Item Value Reference Range Interpretation Comments BUN/CREAT (test code = BUN/CREAT) 9 06-27 [facility] UzfuyasRghnimqsl9493-47-60 09:11:000.58[facility] 2014-12-21 09:11:005[facility] YjbxylgNbinsvfhc2552-98-31 09:11:000.58[facility] FbjklhaDtfioezzu5049-53-10 09:11:00 Test Item Value Reference Range Interpretation Comments BUN/CREAT (test code = BUN/CREAT) 9 06-27 [facility] FwvjupdTvkhqrkth7622-30-91 09:11:000.58[facility] 2014-12-21 09:11:005[facility] JxevnspUxmnfpfxd6577-80-74 09:11:000.58[facility] YykrutoEgfnvzfjc7657-40-12 09:11:00 Test Item Value Reference Range Interpretation Comments BUN/CREAT (test code = BUN/CREAT) 9 06-27 [facility] MxgkaxnFsormamvj2245-37-12 09:11:008.8[facility] 2014-12-21 09:11:005[facility] UayxxrjOtudspqap9407-42-78 09:11:000.58[facility] HpooshdJzlsgutct2848-10-55 09:11:00 Test Item Value Reference Range Interpretation Comments BUN/CREAT (test code = BUN/CREAT) 9 06-27 [facility] JqlkvdfLgpmobqdn7217-34-31 09:11:008.8[facility] 2014-12-21 09:11:005[facility] UcmohkmVlpssujjs3375-93-78 09:11:00 Test Item Value Reference Range Interpretation Comments BUN/CREAT (test code = BUN/CREAT) 9 06-27 [facility] MihnoedPxoebhueo5648-24-37 09:11:005[facility] UjiqwjaBcmscqrlq5465-83-23 09:11:00 Test Item Value Reference Range Interpretation Comments BUN/CREAT (test code = BUN/CREAT) 9 1 8-20 [facility] BatkymdQofvamtek9187-38-31 09:06:52580Dpmczmcg [facility]annChem[facility] 2014-12-21 09:06:004.0[facility] IeimipxVduzxoqkk4446-61-07 09:06:60420Ncctdpus KkkgftkUilpkmeyu6469-45-11 09:06:004.0[facility] XrdcodwEjygnftjo3360-62-22 09:06:89099Ztdullfx TzkvqsiEadxxzihx5183-39-26 09:06:004.0[facility] Fszzsmkls4718-47-29 09:06:53397Njeerqtd XwtciqjIwnbvndpf2500-99-47 09:06:004.0 [facility] FbmzrleVbfwanlyk1231-29-53 09:06:87043Nbvpamvx [facility] 2014-12-21 09:06:004.0[facility] OiucfqnBiwxhhwqf7350-74-29 09:06:34893Yoelpyfl FqrrecpUoocdwhrg8535-48-50 09:06:004.0[facility] XebsnbrKersshdbx8222-00-72 18:12:35100 MEQ/LMemorial KwuhbmpMvipnwivd7938-78-36 18:12:003.8 MEQ/LMemorial LdasspeIeznxddcx4896-39-29 18:12:000.emorial QycqznqPdqahqqby6850-56-19 18:12:007[facility] MlvgmmmPlmepamkl2851-62-00 18:12:70936 [facility]/L[facility] Idhadhtsr7107-17-31 18:12:003.8 MEQ/LMemorial AwslejuWfzbswoiw5168-03-61 18:12:000.emorial ZtfjlkpCswvadfxg3931-55-21 18:12:18205 [facility] Fglncwisu9109-59-73 18:12:003.8 MEQ/LMem[facility] PsblhkhRjuoyyrzb5974-21-36 18:12:000.6[facility] SruepdhDeqkyarad1464-76-00 18:12:82931 [facility] Pycyftzih9813-34-14 18:12:003.8 MEQ/LMemorial WevftltWhgncmgmc2413-98-63 18:12:000.6[facility] XvkfybjBmlpfksfo5538-65-11 18:12:007[facility] Nresrxvqy0099-19-39 18:12:00 Test Item Value Reference Range Interpretation Comments BUN/CREAT (test code = BUN/CREAT) 05-02 [facility] ZaplvdzLixhkxxha9488-61-33 18:12:004.0[facility] 2014-07-17 18:12:009.0[facility] NsfojduIavoopcbm8282-56-55 18:12:0085[facility] NgyyrymKluwtpcil8258-20-59 18:12:0046[facility] IlvezjoYcjbucacz3643-95-13 18:12:76463Likcvmsn VkccebyFtzqvqqgn6989-58-80 18:12:31138 [facility] Lwrjegqlp7828-38-73 18:12:003.8 MEQ/LMem[facility] XtlsthkRwicpyxhd0114-77-38 18:12:000.emorial TbjjgiePfkqdtadn8613-28-46 18:12:007[facility] Mqhzcbfeh4499-55-96 18:12:96048 MEQ/LMemorial LllgugnSnjkqpgni2304-29-44 18:12:003.8 MEQ/LMem[facility] TnxccbaNzklsitct0283-88-80 18:12:000.6[facility] Tdqxvfbyg9781-80-50 18:12:17820 MEQ/LMemorial EvvbzwjXufxqrcsl3018-49-54 18:12:003.8 MEQ/LMemorial VmkelamGqvcmlikb5397-26-95 18:12:000.6[facility] Pyolgfgcr8328-32-50 18:12:007[facility] FebcmkfSymulwwbn1769-92-48 18:12:00 Test Item Value Reference Range Interpretation Comments BUN/CREAT (test code = BUN/CREAT) 05-02 [facility] OqxugoaYufruepyh8683-55-09 18:12:004.0[facility] 2014-07-17 18:12:009.0[facility] FhhyazfRefleixhs0379-91-87 18:12:0085[facility] UpruwjgPinoslczg8575-17-47 18:12:0046[facility] GzcasvmSrajqxtwg0549-69-74 18:12:79841Lhnnbizb LnpequrWxcyeennv7203-37-58 18:12:007[facility] Mxwewebnb4964-27-30 18:12:00 Test Item Value Reference Range Interpretation Comments BUN/CREAT (test code = BUN/CREAT) 12 1 25 [facility] JfndvkfAbqxznsgy7649-20-24 18:12:004.0[facility] 2014-07-17 18:12:009.0[facility] OuxngtsKmxcqokrm3923-37-69 18:12:0085[facility] HnohrwxHlczixslz9638-22-86 18:12:0046[facility] TcgltkrJvdfyaeye1819-20-85 18:12:30544Ksmogtat GtwwqauBolycmsgav0242-40-29 18:12:0013.6[facility] Ppbtrdgtwy4801-92-23 18:12:0041.8[facility] RtzjbbaEevngqzrgx8581-26-03 18:12:00 199 K/CMMMemorial BncalszZxizszvurm3964-75-64 18:12:0013.6[facility] Axbgemxhlc0349-16-62 18:12:0041.8[facility] YzhymbgClibixbhfg8116-86-02 18:12:00 199 K/CMMMemorial SqqcrmhKqwhargosv7610-04-13 18:12:00[facility] Sdwmdobxcy2345-16-62 18:12:00[facility] YwdsfgnBssdzzqmkb9688-58-79 18:12:00[facility] JjnozeuGaobubgeob1975 18:12:00[facility] GiqgqkoNtnntoimtp7400-18-60 18:12:00[facility] YqpnojdUwmuhjwbjp6421-94-42 18:12:00[facility] HoplaskNfanrcdvtq1576-08-88 18:12:00[facility] FlpkumnBcbwykuwoe2471-36-39 18:12:00[facility] HermannUrinalysis 2014-07-17 18:12:00[facility] GdtlblpDzsimapjs9498-17-53 18:39:004.7 [facility] OzxsoybEkwpbarig8762-49-17 18:39:28291Rjxtmogo [facility]Chem[facility] 2014-03-26 18:39:94585Rdtpynkh WkumbjrXyzueehtk9017-93-94 18:39:0042[facility] QepjhiwLxryvggiv9435-09-59 18:39:43595Jxvpzjsb EbcrhqeTyjzphkwi3750-76-36 18:39:35134 MEQ/LMemorial SfzouzoCbiujicny4629-01-54 18:39:004.1 MEQ/LMemorial QbyxfhnIlyuiownd5979-48-35 18:39:000.8[facility] YajjedwSzplmcnvl6651-33-22 18:39:0011[facility] JbtbinwLvgqzwmoi9746-61-96 18:39:00 Test Item Value Reference Range Interpretation Comments BUN/CREAT (test code = BUN/CREAT) 14 1 6-25 [facility] PehmaejVlnhaxwyb9988-20-92 18:39:003.7[facility] 2014-03-26 18:39:008.9[facility] LfyhurnAgbhwcnau6233-65-24 18:39:0041[facility] GjdanzxGbkiyugnh8009-85-57 18:39:0023Mem[facility] WykcrlhXctynoiux4692-74-33 18:39:88951Zijxdsiy VfeamcfJrdzpquhz6990-19-93 18:39:0010[facility] Ckuznjzia1509-10-42 18:39:0025[facility] KlxtbbsXolswnaga1956-09-87 18:39:15964 [facility] UeiconeNohdjwvwi2614-54-22 18:39:002.050[facility] 2014-03-26 18:39:004.7[facility] ZmldvybDifjzdtrl1239-81-63 18:39:19616Nvosmvxp CekscrjDaaxxeksr2587-53-54 18:39:07665Llibrnpw HscxjtdXbtajbhxy9653-98-90 18:39:0042[facility] IosihfqGdncdjurj4499-78-67 18:39:09555Eundnzoo Ezra Cwereyzhy0376-23-76 18:39:81477 MEQ/LMemorial PmtyzhaSrousdieg8156-68-14 18:39:004.1 MEQ/LMemorial PxscykqObdiisgue3818-54-04 18:39:000.8[facility] Nzewfxcpv5874-28-94 18:39:0011[facility] FbdejklKarlfngcx8732-50-02 18:39:00 Test Item Value Reference Range Interpretation Comments BUN/CREAT (test code = BUN/CREAT) 14 1 - [facility] CcuthsrKuhnuqrpa6692-77-07 18:39:003.7[facility] 2014-03-26 18:39:008.9[facility] LqldeetIszjufney1124-43-43 18:39:0041[facility] RxtesunXkezwuogh9450-79-70 18:39:004.7[facility] IxqfreaNnbrpfgeh7093-01-08 18:39:72681Jlftjugu AtjalfvSdhvftxxq1296-40-57 18:39:19957Zbkbcyef Ezra Vjphygvvw3817-86-11 18:39:0042[facility] BojamdpUoiwjyjgd1790-44-93 18:39:004.7 [facility] QjpqgseHyfmwdxcp9849-42-24 18:39:53948Tqjxbubg [facility] 2014-03-26 18:39:90579Tzhzqmox ApygpdoPsalwoasz2684-54-77 18:39:004.7[facility] DfqbwjxDdtihfkuf7929-02-67 18:39:42592Eoxgwzmb YycjhzgLahsoqmzm7479-24-17 18:39:43694Lkhnompq BagowhxKgnysdxon8584-87-24 18:39:0042[facility] Yrzrqprhr6738-96-07 18:39:78018Uipfyyvc OyjtnbkHkuejisib4055-22-93 18:39:99072 MEQ/LMemorial TraudukApucwkmwq5577-85-17 18:39:004.1 [facility] Xeobyjvcd4532-19-40 18:39:000.8[facility] QskpzyoXjjmwwsdf5815-18-74 18:39:0011 [facility] CloygewWqatzutjx2498-36-35 18:39:00 Test Item Value Reference Range Interpretation Comments BUN/CREAT (test code = BUN/CREAT) 14 1 6-25 [facility] WxwtmimBydkqrili0548-92-36 18:39:003.7[facility] 2014-03-26 18:39:008.9[facility] NjzzhdoHwslppmat6692-13-25 18:39:0041Mem[facility] EzuijygVllqyljdq1992-98-41 18:39:0023[facility] FprhgouPipxwgpht0031-38-77 18:39:56021Apftcvwl HugwwrzPvvebnsea2750-51-31 18:39:0010[facility] Lzmklcebr8974-97-51 18:39:0025[facility] GhkbvheUsblzzyrp8298-00-39 18:39:20175 [facility] LfzeyqlMoouzkftv6368-37-07 18:39:002.050[facility]ann[facility] 2014-03-26 18:39:009.8[facility] HvayppxYfhutmxknc1762-21-84 18:39:0032.7[facility] YbzcuesEvozceqttf9328-06-66 18:39:72449 K/CMMMemorial HermannHematology 2014-03-26 18:39:009.8[facility] EjarlufRonlmmyqbq8591-61-21 18:39:0032.7[facility] ZmboigbHscbjpysxb4530-67-75 18:39:10530 K/CMMMemorial HermannHematology 2014-03-26 18:39:0039[facility] TcnpzdqQdtdqemt4986-42-56 18:39:00PositiveMemorial NlfliglNaubadnl2057-65-70 18:39:00PositiveMemorial HcxbfknTfnwglzg6006-87-46 18:39:00PositiveMemorial InmdhcwCfypyimn9514-27-74 18:39:00PositiveMemorial NnffakfTuyghgds2054-42-53 18:39:00PositiveMemorial KamxsaaTpjywnwkxc1310-72-95 18:39:00[facility] RcyukkiWkeyvmtekr1063-95-87 18:39:00[facility] LnpzdusStlyfwahfw5568-40-85 18:39:00[facility] QduwytsUdemxoouit7035-12-82 18:39:00[facility] KfgwykbFelywnihnd5456-64-47 18:39:00[facility] StvbqmgZewygxtqzz7628-06-78 18:39:00[facility] HermannUrinalysis 2014-03-26 18:39:00[facility] HsstkabLagegibgmf2166-15-60 18:39:00[facility]
[2022-11-26 21:26] LABS: Absolute Lymphocytes (CBC) 0.8 K/uL (0.7-4.9); Hematocrit 35.2 % (36.0-45.0); Lymphocytes % 13.2 % (15.3-44.8); MCV 88.5 fL (80-100); MPV 7.8 fL (7.6-11.3); RBC Red Blood Cell Count 3.98 M/uL (3.86-4.86)
--- NOTE | 2022-11-26 21:33 | ER ---
Nurse's Notes [facility] Name: Liza Dexter Age: 47 yrs Sex: Female : 1975 Arrival Date: 11/26/2022 Time: 20:41 Bed 2 Private MD: Diagnosis: Pneumonia due to other specified bacteria-bilateral;Dyspnea;Hypoxemia;Immunodeficiency, unspecified;Hypokalemia Presentation: 11/26 20:42 Chief complaint: Patient states: "I feel like I am drowning when I breath in and I hurt vc1 all over.". Chief complaint: EMS states: "When we arrived she was 67% on room air complaining she can't breath and feels like she is drowning.". Coronavirus screen: Vaccine status: Patient reports being unvaccinated. difficulty breathing, fever, muscle pain, shortness of breath, Client presents with at least one sign or symptom that may indicate coronavirus-19. Standard/surgical mask placed on the client. Provider contacted for isolation considerations. Client reports previous positive COVID test result. Date of collection: November 01, 2022. Ebola Screen: Patient negative for fever greater than or equal to 101.5 degrees Fahrenheit, and additional compatible Ebola Virus Disease symptoms Patient denies exposure to infectious person. Patient denies travel to an Ebola-affected area in the 21 days before illness onset. Initial Sepsis Screen: Does the patient meet any 2 criteria? RR > 20 per min. HR > 90 bpm. Yes Does the patient have a suspected source of infection? Yes: Other: covid. Initial Sepsis Screen: Does the patient meet any 2 criteria? If YES to both, name of provider notified: Benjamín Mcfarland MD Risk Assessment: Do you want to hurt yourself or someone else? Patient reports no desire to harm self or others. Note Pt reported temperature of 104.7. Onset of symptoms was November 26, 2022. Care prior to arrival: Medication(s) given: Motrin, Tylenol, excedrin. 20:42 Method Of Arrival: EMS: [facility] vc1 20:42 Acuity: JUAN 2 vc1 Triage Assessment: 20:50 General: Appears distressed, uncomfortable, Behavior is cooperative. Pain: Complains of vc1 pain in Everywhere Pain does not radiate. Pain currently is 10 out of 10 on a pain scale. EENT: No deficits noted. No signs and/or symptoms were reported regarding the EENT system. Neuro: Level of Consciousness is awake, alert, obeys commands, Oriented to person, place, time, situation, Appropriate for age. Cardiovascular: Reports chest pain, shortness of breath. Respiratory: Airway is patent Respiratory effort is even, labored, Respiratory pattern is symmetrical, tachypnea. Respiratory: Reports shortness of breath at rest labored breathing Onset: The symptoms/episode began/occurred gradually, the patient has severe shortness of breath. GI: No deficits noted. No signs and/or symptoms were reported involving the gastrointestinal system. : No deficits noted. No signs and/or symptoms were reported regarding the genitourinary system. Derm: No deficits noted. No signs and/or symptoms reported regarding the dermatologic system. Musculoskeletal: No deficits noted. No signs and/or symptoms reported regarding the musculoskeletal system. CHECK EMBOSSER: 11/27 00:20 LMP N/A - Post-menopause pf1 Historical: - Allergies: 11/26 20:46 ambien; vc1 20:46 CEPHALOSPORINS; vc1 20:46 Codeine; vc1 20:46 Demerol; vc1 20:46 Morphine; vc1 20:46 Nexium; vc1 20:46 Sulfa (Sulfonamide Antibiotics); vc1 20:46 Zofran; vc1 - Home Meds: 20:46 methotrexate sodium injection once wkly [Active]; furosemide 20 mg Oral tab 1 tab once vc1 daily [Active]; Phenergan Oral 50 mg as needed [Active]; 11/27 04:55 Rituxan 10 mg/mL intravenous conc every 90 days [Active]; diazepam 10 mg Oral tab 1 tab pf1 as needed [Active]; doxycycline hyclate 100 mg Oral cap 1 cap once daily [Active]; fluticasone propionate 50 mcg/actuation inhalation dsdv 1 puff as needed [Active]; Decara 625 mcg (25,000 unit) oral cap once a week [Active]; Lidocaine Viscous 2 % Oral soln as needed [Active]; - PMHx: 11/26 20:46 Anemia; chron's; Colitis; Lupus; Crohn's Disease; Raynaud's syndrome; Scleroderma; vc1 Seizures; - Immunization history:: Client reports having NOT received the Covid vaccine. - Social history:: Smoking status: Patient denies any tobacco usage or history of. - Coronavirus screen:: The patient has NOT traveled to [place] in the past 14 days. The patient HAS HAD contact with known and/or suspected case of coronavirus. The patient DOES HAVE fever and/or cough. Mask placed on patient and transported to negative pressure isolation room. Pt positive for covid on 11/01/22. - Ebola Screening: : Patient negative for fever greater than or equal to 101.5 degrees Fahrenheit, and additional compatible Ebola Virus Disease symptoms Patient denies exposure to infectious person Patient denies travel to an Ebola-affected area in the 21 days before illness onset No symptoms or risks identified at this time. Screenin:49 [facility] ED Fall Risk Assessment (Adult) History of falling in the last 3 months, vc1 including since admission No falls in past 3 months (0 pts) Confusion or Disorientation No (0 pts) Intoxicated or Sedated No (0 pts) Impaired Gait No (0 pts) Mobility Assist Device Used No (0 pt) Altered Elimination No (0 pt) Score/Fall Risk Level 0 - 2 = Low Risk Oriented to surroundings, Maintained a safe environment, Educated pt \\T\\ family on fall prevention, incl call for assistance when getting out of bed. Abuse screen: Denies threats or abuse. Nutritional screening: No deficits noted. Tuberculosis screening: No symptoms or risk factors identified. Assessment: 20:45 General: Appears distressed, uncomfortable, well groomed, well developed, Behavior is pf1 calm, cooperative, appropriate for age, quiet. 20:45 Pain: Complains of pain in chest that radiates to bilateral shoulders and bilateral pf1 lower ribcage Pain currently is 8 out of 10 on a pain scale. Neuro: No deficits noted. Level of Consciousness is awake, alert, obeys commands, Oriented to person, place, time, situation. Cardiovascular: Chest pain is described as diffuse. Respiratory: Reports shortness of breath at rest on exertion cough that is labored breathing pain with cough since onset since October Airway is patent Trachea midline Respiratory effort is labored, Respiratory pattern is symmetrical, tachypnea Onset: The symptoms/episode began/occurred 1.5 weeks. GI: No deficits noted. Abdomen is round non-distended, Bowel sounds present X 4 quads. Abd is soft and non tender X 4 quads. : No deficits noted. EENT: No deficits noted. No signs and/or symptoms were reported regarding the EENT system. Derm: No deficits noted. No signs and/or symptoms reported regarding the dermatologic system. 20:45 Respiratory: Breath sounds are clear bilaterally. in right upper lobe, left upper lobe, pf1 left posterior upper lobe and right posterior upper lobe Breath sounds with crackles bilaterally. in left posterior lower lobe and right posterior lower lobe. 21:32 Reassessment: Patient appears in no apparent distress at this time. Patient and/or pf1 family updated on plan of care and expected duration. Pain level reassessed. Patient states symptoms have improved. Vital Signs: 20:42 BP 110 / 74; Pulse 101; Resp 25; Temp 98; Pulse Ox 67% on R/A; Weight 90.72 kg; Height vc1 5 ft. 6 in. (167.64 cm); Pain 10/10; 20:50 Pulse Ox 98% on BiPAP; vc1 21:30 BP 104 / 93; Pulse 89; Resp 32; Pulse Ox 96% on BiPAP; Pain 7/10; pf1 22:30 BP 98 / 77; Pulse 88; Resp 16; Pulse Ox 95% on BiPAP; Pain 7/10; pf1 23:30 BP 95 / 65; Pulse 86; Resp 21; Pulse Ox 94% on BiPAP; Pain 7/10; pf1 11/27 00:27 BP 104 / 75; Pulse 80; Resp 22; Temp 97.3(T); Pulse Ox 95% on 40% BiPAP; Pain 7/10; pf1 11/26 20:42 Body Mass Index 32.28 (90.72 kg, 167.64 cm) vc1 ED Course: 11/26 20:41 Patient arrived in ED. pf1 20:44 Benjamín Mcfarland MD is Attending Physician. paola 20:46 Triage completed. vc1 20:49 Arm band placed on left wrist. vc1 20:50 Patient has correct armband on for positive identification. Placed in gown. Bed in low vc1 position. Client placed on continuous cardiac and pulse oximetry monitoring. NIBP monitoring applied. 20:50 No provider procedures requiring assistance completed. Inserted saline lock: 20 gauge pf1 in left antecubital area, using aseptic technique. Blood collected. Maintain EMS IV. Dressing intact. Good blood return noted. Site clean \\T\\ dry. Gauge \\T\\ site: 20 gauge to RAC. 20:50 O2 via BIPAP Response to oxygen therapy: symptoms improved. pf1 20:53 EKG completed in triage. Results shown to . vc1 21:09 Blood Culture Adult (2) Sent. pf1 21: CBC with Diff Sent. pf1 21:09 CMP Sent. pf1 21:09 Protime (+inr) Sent. pf1 21:27 Chest Single View XRAY In Process Unspecified. EDMS 21:28 Demetra kilpatrick, RN is Primary Nurse. pf1 21:31 Melo Saxena MD is Hospitalizing Provider. paola 21:32 Patient admitted, IV remains in place. pf1 22:27 CT Chest For PE Angio In Process Unspecified. EDMS 23:01 COVID-19/FLU A+B Sent. pf1 11/27 07:11 Primary Nurse role handed off by Demetra kilpatrick, RN ll1 07:11 Glenroy Morales RN is Primary Nurse. ll1 Administered Medications: 11/26 22:00 Drug: Zosyn (piperacillin-tazobactam) 3.375 grams Route: IVPB; Infused Over: 60 mins; jb4 Site: right antecubital; 23:00 Follow up: IV Status: Completed infusion; IV Intake: 100ml pf1 22:00 Drug: Pepcid (famotidine) 20 mg Route: IVP; Site: right antecubital; jb4 23:00 Follow up: Response: No adverse reaction; Marked relief of symptoms pf1 22:00 Drug: Dilaudid (HYDROmorphone) 1 mg Route: IVP; Site: right antecubital; pf1 23:00 Follow up: Response: No adverse reaction; Pain is unchanged, physician notified; RASS: pf1 Alert and Calm (0) 22:10 Drug: Phenergan (promethazine) 12.5 mg Route: IVP; Site: right antecubital; pf1 23:00 Follow up: Response: No adverse reaction; Marked relief of symptoms pf1 22:10 Drug: SOLU-Medrol (methylPrednisoLONE) 125 mg Route: IVP; Site: right antecubital; pf1 23:00 Follow up: Response: No adverse reaction; No change in condition pf1 23:05 Drug: Aspirin 81 mg Route: PO; pf1 23:45 Follow up: Response: No adverse reaction; Marked relief of symptoms; Pain is decreased; pf1 RASS: Alert and Calm (0) 23:20 Drug: Zithromax (azithromycin) 500 mg Route: IVPB; Infused Over: 1 hrs; Site: right jb4 antecubital; 11/27 00:20 Follow up: IV Status: Completed infusion; IV Intake: 250ml pf1 11/26 23:20 Drug: Potassium Chloride 20 mEq Route: IV; Rate: per protocol; Site: left antecubital; pf1 11/27 01:20 Follow up: IV Status: Completed infusion; IV Intake: 100ml pf1 11/26 23:20 Drug: NS 0.9% with KCl 20 mEq/L 1000 ml Route: IV; Rate: 125 ml/hr; Site: left pf1 antecubital; 11/27 00:00 Follow up: IV Status: Infusion continued upon admission pf1 01:20 Drug: Dilaudid (HYDROmorphone) 1 mg Route: IVP; Site: right antecubital; pf1 04:50 Follow up: Response: No adverse reaction; Marked relief of symptoms; Pain is decreased; pf1 RASS: Alert and Calm (0) 01:20 Drug: Phenergan (promethazine) 12.5 mg Route: IVP; Site: right antecubital; pf1 02:00 Follow up: Response: No adverse reaction; Marked relief of symptoms; Pain is decreased; pf1 RASS: Alert and Calm (0) 01:20 Drug: Benadryl (diphenhydrAMINE) 25 mg Route: IVP; Site: right antecubital; pf1 02:00 Follow up: Response: No adverse reaction; Marked relief of symptoms; RASS: Alert and pf1 Calm (0) Medication: 11/26 20:52 VIS not applicable for this client. vc1 Intake: 23:00 IV: 100ml; Total: 100ml. pf1 11/27 00:20 IV: 250ml; Total: 350ml. pf1 : IV: 100ml; Total: 450ml. pf1 Outcome: 11/26 21:32 Decision to Hospitalize by Provider. paola 21:32 Admitted to ER Hold. Please see [facility] for further documentation. pf1 21:32 Condition: stable pf1 21:32 Instructed on the need for admit, Demonstrated understanding of instructions. 11/27 13:19 Patient left the ED. ll1 Signatures: Dispatcher [employer] EDBenjamín Ruth MD MD cha Bryson, James, RN RN jb4 Glenroy Morales RN RN ll1 Kristal Love RN RN vc1 Demetra kilpatrick RN RN pf1 Corrections: (The following items were deleted from the chart) 11/26 20:49 20:46 Allergies: Phenergan; vc1 vc1 11/27 05:04 11/26 20:46 Home Meds: amlodipine 5 mg tab 1 tab once daily; vc1 pf1 11/27 05:04 11/26 20:46 Home Meds: Rituxan 10 mg/mL intravenous conc once wkly; vc1 pf1
--- NOTE | 2022-11-26 21:33 | EDPHYS ---
Physician Documentation [facility] Name: Liza Dexter Age: 47 yrs Sex: Female : 1975 Arrival Date: 11/26/2022 Time: 20:41 Bed 2 Private MD: CORTES Physician Benjamín Mcfarland HPI: 11/26 21:19 This 47 yrs old Female presents to ER via EMS with complaints of Chest Pain > paola 30 y/o, Breathing Difficulty. 21:19 The patient or guardian reports chest pain that is located primarily in the substernal paola area, anterior chest wall, bilaterally. Onset: 1 day(s) ago. The pain does not radiate. Associated signs and symptoms: Pertinent positives: cough, shortness of breath. The chest pain is described as sharp. Duration: The patient or guardian reports a single episode, that is still ongoing. Modifying factors: The symptoms are alleviated by application of supplemental oxygen, remaining still, the symptoms are aggravated by cough, deep breath, movement. Severity of pain: At its worst the pain was moderate in the emergency department the pain has resolved. The patient has experienced similar episodes in the past. 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 LMP N/A - Post-menopause pf1 Historical: - Allergies: 11/26 20:46 ambien; vc1 20:46 CEPHALOSPORINS; vc1 20:46 Codeine; vc1 20:46 Demerol; vc1 20:46 Morphine; vc1 20:46 Nexium; vc1 20:46 Sulfa (Sulfonamide Antibiotics); vc1 20:46 Zofran; vc1 - Home Meds: 20:46 methotrexate sodium injection once wkly [Active]; furosemide 20 mg Oral tab 1 tab once vc1 daily [Active]; Phenergan Oral 50 mg as needed [Active]; 11/27 04:55 Rituxan 10 mg/mL intravenous conc every 90 days [Active]; diazepam 10 mg Oral tab 1 tab pf1 as needed [Active]; doxycycline hyclate 100 mg Oral cap 1 cap once daily [Active]; fluticasone propionate 50 mcg/actuation inhalation dsdv 1 puff as needed [Active]; Decara 625 mcg (25,000 unit) oral cap once a week [Active]; Lidocaine Viscous 2 % Oral soln as needed [Active]; - PMHx: 11/26 20:46 Anemia; chron's; Colitis; Lupus; Crohn's Disease; Raynaud's syndrome; Scleroderma; vc1 Seizures; - Immunization history:: Client reports having NOT received the Covid vaccine. - Social history:: Smoking status: Patient denies any tobacco usage or history of. - Coronavirus screen:: The patient has NOT traveled to [place] in the past 14 days. The patient HAS HAD contact with known and/or suspected case of coronavirus. The patient DOES HAVE fever and/or cough. Mask placed on patient and transported to negative pressure isolation room. Pt positive for covid on 11/01/22. - Ebola Screening: : Patient negative for fever greater than or equal to 101.5 degrees Fahrenheit, and additional compatible Ebola Virus Disease symptoms Patient denies exposure to infectious person Patient denies travel to an Ebola-affected area in the 21 days before illness onset No symptoms or risks identified at this time. ROS: 21:25 Constitutional: Negative for fever, chills, and weight loss, Eyes: Negative for injury, paola pain, redness, and discharge, ENT: Negative for injury, pain, and discharge, Neck: Negative for injury, pain, and swelling, Cardiovascular: Negative for chest pain, palpitations, and edema, Abdomen/GI: Negative for abdominal pain, nausea, vomiting, diarrhea, and constipation, Back: Negative for injury and pain, : Negative for injury, bleeding, discharge, and swelling, MS/Extremity: Negative for injury and deformity, Skin: Negative for injury, rash, and discoloration, Neuro: Negative for headache, weakness, numbness, tingling, and seizure. 21:25 Respiratory: Positive for cough, dyspnea on exertion, shortness of breath, at rest. Exam: 21:25 Head/Face: Normocephalic, atraumatic. Eyes: Pupils equal round and reactive to light, paola extra-ocular motions intact. Lids and lashes normal. Conjunctiva and sclera are non-icteric and not injected. Cornea within normal limits. Periorbital areas with no swelling, redness, or edema. ENT: Nares patent. No nasal discharge, no septal abnormalities noted. Tympanic membranes are normal and external auditory canals are clear. Oropharynx with no redness, swelling, or masses, exudates, or evidence of obstruction, uvula midline. Mucous membranes moist. Neck: Trachea midline, no thyromegaly or masses palpated, and no cervical lymphadenopathy. Supple, full range of motion without nuchal rigidity, or vertebral point tenderness. No Meningismus. Chest/axilla: Normal chest wall appearance and motion. Nontender with no deformity. No lesions are appreciated. Abdomen/GI: Soft, non-tender, with normal bowel sounds. No distension or tympany. No guarding or rebound. No evidence of tenderness throughout. Back: No spinal tenderness. No costovertebral tenderness. Full range of motion. Skin: Warm, dry with normal turgor. Normal color with no rashes, no lesions, and no evidence of cellulitis. MS/ Extremity: Pulses equal, no cyanosis. Neurovascular intact. Full, normal range of motion. Neuro: Awake and alert, GCS 15, oriented to person, place, time, and situation. Cranial nerves II-XII grossly intact. Motor strength 5/5 in all extremities. Sensory grossly intact. Cerebellar exam normal. Normal gait. 21:25 Cardiovascular: Rate: tachycardic, actual rate is 101 bpm, Rhythm: regular, Pulses: Pulses are 4+ in bilateral radial, brachial, femoral, popliteal, posterior tibial and and dorsalis pedis arteries.. 21:33 ECG was reviewed by the Attending Physician. paola Vital Signs: 20:42 BP 110 / 74; Pulse 101; Resp 25; Temp 98; Pulse Ox 67% on R/A; Weight 90.72 kg; Height vc1 5 ft. 6 in. (167.64 cm); Pain 10/10; 20:50 Pulse Ox 98% on BiPAP; vc1 21:30 BP 104 / 93; Pulse 89; Resp 32; Pulse Ox 96% on BiPAP; Pain 7/10; pf1 22:30 BP 98 / 77; Pulse 88; Resp 16; Pulse Ox 95% on BiPAP; Pain 7/10; pf1 23:30 BP 95 / 65; Pulse 86; Resp 21; Pulse Ox 94% on BiPAP; Pain 7/10; pf1 11/27 00:27 BP 104 / 75; Pulse 80; Resp 22; Temp 97.3(T); Pulse Ox 95% on 40% BiPAP; Pain 7/10; pf1 11/26 20:42 Body Mass Index 32.28 (90.72 kg, 167.64 cm) vc1 MDM: 11/26 20:44 Patient medically screened. paola 21:28 Differential diagnosis: abnormal EKG, acute myocardial infarction, acute pericarditis, paola anxiety, coronary artery disease chest wall pain, congestive heart failure esophagitis, hiatal hernia, pancreatitis, pericarditis, pneumonia, pulmonary embolus, stable angina, unstable angina. HEART Score: History: Slightly Suspicious (0), ECG: Non specific repolarization disturbance / LBTB / PM (1), Age: > 45 and < 65 years (1), Risk Factors: 1 or 2 risk factors (1), [+ Family HX] [Obesity] Troponin: < or = 1 x Normal Limit (0). The patient was not given aspirin in the Emergency Department. Not indicated due to patient's past medical history. ROBIN Risk Score: TOTAL SCORE = 0. Data reviewed: vital signs, nurses notes, lab test result(s), EKG, radiologic studies, CT scan, plain films. Consideration of Admission/Observation Patient was admitted/placed on observation. Management of patient was discussed with the following: Hospitalist: romulo portillo. Independent interpretation of the following test(s) in the Emergency Department X-Ray: My interpretation is cxr, bilateral pna. Historians other than the Patient: EMS: ems, no family present. 11/26 20:45 Order name: Blood Culture Adult (2) 11/26 20:45 Order name: CBC with Diff; Complete Time: 21:35 11/26 20:45 Order name: CMP; Complete Time: 22:01 11/26 20:45 Order name: Lactate w/ 2H reflex if indic.; Complete Time: 22:01 11/26 20:45 Order name: Protime (+inr); Complete Time: 22:39 11/26 20:45 Order name: Ptt, Activated; Complete Time: 22:39 11/26 20:52 Order name: Type And Screen; Complete Time: 22:01 pf1 11/26 20:52 Order name: BNP; Complete Time: 22:01 la1 11/26 20:52 Order name: Troponin High Sensitivity; Complete Time: 22:01 la1 11/26 21:16 Order name: Magnesium; Complete Time: 22:01 paola 11/26 21:26 Order name: Glucose, Ancillary Testing; Complete Time: 21:35 EDMS 11/26 21:49 Order name: COVID-19/FLU A+B; Complete Time: 01:34 [facility] 11/26 21:50 Order name: CRP; Complete Time: 01:34 [facility] 11/27 05:32 Order name: CBC with Automated Diff; Complete Time: 07:48 [facility] 11/26 20:53 Order name: Chest Single View XRAY; Complete Time: 22:01 [facility] 11/26 21:19 Order name: BIPAP [facility] 11/26 21:31 Order name: CT Chest For PE Angio; Complete Time: 22:39 [facility] 11/27 05:42 Order name: Basic Metabolic Panel; Complete Time: 07:48 [facility] 11/27 07:48 Order name: C-Reactive Protein; Complete Time: 07:48 [facility] 11/27 07:48 Order name: Ferritin; Complete Time: 07:48 [facility] 11/26 20:45 Order name: EKG; Complete Time: 20:46 11/26 20:45 Order name: Accucheck; Complete Time: 21:29 11/26 20:45 Order name: Cardiac monitoring; Complete Time: 20:55 11/26 20:45 Order name: EKG - Nurse/Tech; Complete Time: 20:55 11/26 20:45 Order name: IV Saline Lock - Large Bore; Complete Time: 20:55 11/26 20:45 Order name: Labs collected and sent; Complete Time: 21:09 11/26 20:45 Order name: O2 Per Protocol; Complete Time: 20:55 11/26 20:45 Order name: O2 Sat Monitoring; Complete Time: 20:55 11/26 20:45 Order name: Vital Signs; Complete Time: 20:55 11/26 21:16 Order name: IV Saline Lock; Complete Time: 21:28 [facility] 11/26 21:19 Order name: IV Saline Lock - Large Bore; Complete Time: 22:34 [facility] EC:33 Rate is 95 beats/min. Rhythm is regular. QRS [place] is Normal. [place] interval is normal. QRS paola interval is normal. QT interval is normal. No Q waves. T waves are Inverted in leads III, aVF, V1, V2, V3, V4. No ST changes noted. Clinical impression: NSR w/ Non-specific ST/T Changes and No evidence of ischemia. Interpreted by me. Reviewed by me. Administered Medications: 22:00 Drug: Zosyn (piperacillin-tazobactam) 3.375 grams Route: IVPB; Infused Over: 60 mins; jb4 Site: right antecubital; 23:00 Follow up: IV Status: Completed infusion; IV Intake: 100ml pf1 22:00 Drug: Pepcid (famotidine) 20 mg Route: IVP; Site: right antecubital; jb4 23:00 Follow up: Response: No adverse reaction; Marked relief of symptoms pf1 22:00 Drug: Dilaudid (HYDROmorphone) 1 mg Route: IVP; Site: right antecubital; pf1 23:00 Follow up: Response: No adverse reaction; Pain is unchanged, physician notified; RASS: pf1 Alert and Calm (0) 22:10 Drug: Phenergan (promethazine) 12.5 mg Route: IVP; Site: right antecubital; pf1 23:00 Follow up: Response: No adverse reaction; Marked relief of symptoms pf1 22:10 Drug: SOLU-Medrol (methylPrednisoLONE) 125 mg Route: IVP; Site: right antecubital; pf1 23:00 Follow up: Response: No adverse reaction; No change in condition pf1 23:05 Drug: Aspirin 81 mg Route: PO; pf1 23:45 Follow up: Response: No adverse reaction; Marked relief of symptoms; Pain is decreased; pf1 RASS: Alert and Calm (0) 23:20 Drug: Zithromax (azithromycin) 500 mg Route: IVPB; Infused Over: 1 hrs; Site: right jb4 antecubital; 11/27 00:20 Follow up: IV Status: Completed infusion; IV Intake: 250ml pf1 11/26 23:20 Drug: Potassium Chloride 20 mEq Route: IV; Rate: per protocol; Site: left antecubital; pf1 11/27 01:20 Follow up: IV Status: Completed infusion; IV Intake: 100ml pf1 11/26 23:20 Drug: NS 0.9% with KCl 20 mEq/L 1000 ml Route: IV; Rate: 125 ml/hr; Site: left pf1 antecubital; 11/27 00:00 Follow up: IV Status: Infusion continued upon admission pf1 :20 Drug: Dilaudid (HYDROmorphone) 1 mg Route: IVP; Site: right antecubital; pf1 04:50 Follow up: Response: No adverse reaction; Marked relief of symptoms; Pain is decreased; pf1 RASS: Alert and Calm (0) 01:20 Drug: Phenergan (promethazine) 12.5 mg Route: IVP; Site: right antecubital; pf1 02:00 Follow up: Response: No adverse reaction; Marked relief of symptoms; Pain is decreased; pf1 RASS: Alert and Calm (0) 01:20 Drug: Benadryl (diphenhydrAMINE) 25 mg Route: IVP; Site: right antecubital; pf1 02:00 Follow up: Response: No adverse reaction; Marked relief of symptoms; RASS: Alert and pf1 Calm (0) Disposition Summary: 11/26/22 21:32 Hospitalization Ordered Hospitalization Status: Inpatient Admission paola Provider: Melo Saxena cha Condition: Stable paola Problem: new paola Symptoms: have improved paola Bed/Room Type: Standard paola Location: Telemetry/MedSurg (Inpatient)(11/27/22 12:31) eb Room Assignment: 222(11/27/22 12:31) eb Diagnosis - Pneumonia due to other specified bacteria - bilateral paola - Dyspnea paola - Hypoxemia paola - Immunodeficiency, unspecified paola - Hypokalemia paola Forms: - Medication Reconciliation Form paola - SBAR form paola Signatures: Dispatcher [employer] EDAlisha Jiménez RN Benjamín David MD MD cha Attema, Lee, METALLURGICAL ENGINEERING TEACHER-C METALLURGICAL ENGINEERING TEACHER-Cla1 Silvana Perry RN Carlos Vyas RN RN Teresa Man Kristal Love RN RN vc1 Demetra kilpatrick, RN RN pf1 Corrections: (The following items were deleted from the chart) 11/26 20:49 20:46 Allergies: Phenergan; vc1 vc1 23:54 21:32 Telemetry/MedSurg (Inpatient) paola 23:54 21:32 paola cg 11/27 05:04 11/26 20:46 Home Meds: amlodipine 5 mg tab 1 tab once daily; vc1 pf1 11/27 05:04 11/26 20:46 Home Meds: Rituxan 10 mg/mL intravenous conc once wkly; vc1 pf1 11/27 23:54 [facility] ER HOLD cg eb 11/27 23:54 ERHOLD- cg eb
--- NOTE | 2022-11-26 21:36 | RAD REPORT ---
EXAM DESCRIPTION: RAD - Chest Single View - 11/26/2022 9:26 pm CLINICAL HISTORY: DYSPNEA Chest pain. COMPARISON: Chest Single View dated 08/26/2021; Chest Single View dated 04/05/2021; Chest Single View dated 01/05/2020; Chest Single View dated 12/09/2019 FINDINGS: Portable technique limits examination quality. There is extensive bilateral pulmonary opacities present likely representing pneumonia or pulmonary e keila. The heart is normal in size. No displaced fractures.
[2022-11-26 21:39] LABS: Troponin High Sensitivity 10.9 pg/mL (<58.9)
[2022-11-26] MEDS ORDERED: PROMETHAZINE INJ 25 MG/ML AMP ONE (21:41)
[2022-11-26] MEDS ORDERED: METHYLPREDNISOLONE 125 MG INJ ONE (21:41)
[2022-11-26] MEDS ORDERED: PIPERACIL/TAZO 3.375 GM VIAL IV ONE (21:42)
[2022-11-26] MEDS ORDERED: NA CHLORIDE 0.9% 100 ML IV ONE (21:42)
[2022-11-26] MEDS ORDERED: FAMOTIDINE 20 MG/2 ML VIAL IV ONE (21:42)
[2022-11-26] MEDS ORDERED: HYDROMORPHONE HCL 1 MG/ML INJ ONE (21:42)
[2022-11-26] MEDS ORDERED: NA CHLORIDE 0.9% 250 ML ONE (21:42)
[2022-11-26] MEDS ORDERED: AZITHROMYCIN 500 MG INJ IVPB ONE (21:42)
[2022-11-26 21:50] LABS: Albumin 2.5 g/dL (3.4-5.0); Bilirubin Total 0.5 mg/dL (0.2-1.0); Protein, Total 6.5 g/dL (6.4-8.2)
[2022-11-26 22:27] LABS: Protime INR 1.3
--- NOTE | 2022-11-26 22:33 | RAD REPORT ---
EXAM DESCRIPTION: CT - Chest For Pe Angio - 11/26/2022 10:26 pm CLINICAL HISTORY: Chest pain. dyspnea COMPARISON: Thorax Wo Con dated 04/21/2016 TECHNIQUE: CT angiogram of the pulmonary arteries was performed with MIP. All CT scans are performed using dose optimization technique as appropriate and may include automated exposure control or mA/KV adjustment according to patient size. FINDINGS: No evidence of pulmonary thromboembolism. No acute aortic finding demonstrated. There is extensive bilateral alveolar lung opacities present likely representing pulmonary edema or b ilateral pneumonia. Trace pleural fluid bilaterally. Patulous esophagus. No concerning bony finding. IMPRESSION: No evidence of pulmonary thromboembolism. Extensive bilateral alveolar lung opacities may represent pulmonary edema or pneumonia in the correct clinical setting.
--- NOTE | 2022-11-26 23:11 | P.HP ---
Certification for Inpatient Patient admitted to: Inpatient With expected LOS: >2 Midnights Patient will require the following post-hospital care: None Practitioner: I am a practitioner with admitting privileges, knowledge of patient current condition, hospital course, and medical plan of care. Services: Services provided to patient in accordance with Admission requirements found in Title 42 Section 412.3 of the Code of Federal Regulations Patient History Date of Service: 11/26/22 Reason for admission: COVID-19 pneumonia, respiratory failure History of Present Illness: 47-year-old female with history of Crohn's, lupus, scleroderma, seizure disorder presents emergency department for dyspnea, respiratory failure. She reports testing positive for COVID on 11/01/2022, since then she has been on antivirals, multiple rounds of antibiotics most recently doxycycline 7-day course which she finished 3 days ago. Upon arrival to the ED patient saturations were 67% on room air, she was placed on BiPAP which has been tolerating well currently at 45% FiO2 saturating 91 to 92%. Her labs were significant for mild hypokalemia with a potassium of 3.0 hemoglobin 11.5 hematocrit 35.2 chest x-ray showed extensive bilateral pulmonary opacities present likely represent pneumonia or pulmonary edema. The heart is normal size no displaced fractures. CT PE protocol was performed which is negative for pulmonary embolism but did show extensive bilateral alveolar lung opacities near percent pulmonary edema or pneumonia in the right clinical setting. She was given IV steroids, antibiotics in ED. ED provider wishes to admit for further evaluation and management of COVID-19 pneumonia, acute hypoxic respiratory failure. Allergies Cephalosporins Allergy (Verified 05/04/18 13:53) cardiac arrest codeine [Codeine] Allergy (Verified 05/04/18 13:53) cardiac arrest esomeprazole mag [From Nexium] Allergy (Verified 05/04/18 13:53) Anaphylaxis meperidine HCl [From Demerol] Allergy (Verified 05/04/18 13:53) cardiac arrest morphine Allergy (Verified 05/04/18 13:53) cardiac arrest ondansetron [From Zofran] Allergy (Verified 05/04/18 13:53) severe bradycardia zolpidem [From Ambien] Adverse Reaction (Verified 05/04/18 13:53) sleep walking/ hallucinations Home Medications: Hydrocodone 10/APAP 325 [[place] 10/325*] 1 tab PO Q6H PRN 05/04/18 diazePAM [Diazepam] 10 mg PO BEDTIME PRN 05/04/18 Amlodipine [Norvasc*] 1 tab PO DAILY 08/26/21 Cholecalciferol (Vitamin D3) [Vitamin D3] 1 tab PO SEECOM 08/26/21 Dextroamphetamine/Amphetamine [Adderall Xr 20 mg Capsule] 1 tab PO DAILY 08/26/21 Dicyclomine HCl 1 tab PO QID 08/26/21 Ketoconazole/Hydrocortisone [Pheyo 2.5%-2% Cream] 1 appl TOP DAILY 08/26/21 Medroxyprogester [Depo Provera*] 150 mg IJ SEECOM 08/26/21 Methotrexate Sodium/Pf [Methotrexate 50 mg/2 ml Vial] 50 mg IJ SEECOM 08/26/21 Pantoprazole [Protonix Tab*] 1 tab PO BID 08/26/21 Promethazine Tab [Phenergan*] 1 tab PO Q6H PRN 08/26/21 Hydrocodone 7.5/APAP 325 [[place] 7.5/325 mg] 1 tab PO Q6H PRN #28 tab 08/30/21 - Past Medical/Surgical History Diabetic: No -: CHRON'S -: COLITIS -: SCLERODERMA -: EPILEPSY -: ANEMIA -: RAYNAUD'S SYNDROME -: MIGRAINE HEADACHES -: HYPERTENSION -: HERNIA REPAIR -: IVAN -: TONSILLECTOMY -: REMOVAL OF STOMACH -: REMOVAL OF ESOPHAGUS -: INTERPOSITION OF JEJUNUM Psychosocial/ Personal History: Lives at home with family - Family History Sister -: Heart disease, Cancer Father -: Heart disease - Social History Smoking Status: Never smoker Alcohol use: No CD- Drugs: No Caffeine use: Yes Place of Residence: Home Review of Systems 10-point ROS is otherwise unremarkable Respiratory: Cough, Shortness of Breath Physical Examination - Physical Exam General: Alert, In no apparent distress, Oriented x3 HEENT: Atraumatic, PERRLA, Mucous membr. moist/pink, EOMI, Sclerae nonicteric Neck: Supple, 2+ carotid pulse no bruit, No LAD, Without JVD or thyroid abnormality Respiratory: Normal air movement, Diminished Cardiovascular: No edema, Regular rate/rhythm, Normal S1 S2 Capillary refill: <2 Seconds Gastrointestinal: Normal bowel sounds, No tenderness Musculoskeletal: No tenderness Integumentary: No rashes Neurological: Normal speech, Normal strength at 5/5 x4 extr, Normal tone, Normal affect - Studies Laboratory Data (last 24 hrs) 11/26/22 22:10: PT 14.3 H, INR 1.30, APTT 30.1 11/26/22 20:59: Magnesium 2.1 11/26/22 20:59: Sodium 137, Potassium 3.0 L, BUN 15, Creatinine 0.72, Glucose 111 H, Total Bilirubin 0.5, AST 77 H, ALT 24, Alkaline Phosphatase 182 H 11/26/22 20:59: WBC 5.70, Hgb 11.5 L, Hct 35.2 L, Plt Count 282 Assessment and Plan - Plan Assessment: Acute hypoxic respiratory failure secondary to COVID-19 pneumonia Seizure disorder Crohn's, lupus, scleroderma Plan: Acute hypoxic respiratory failure secondary to COVID-19 pneumonia Initially positive for COVID on 1225, has been on antivirals, antibiotics as there was some concern for secondary bacterial infection. She was given Solu- Medrol, Zosyn, Zithromax in ED. We will continue these until further evaluation from pulmonology. Continue daily steroids, supplemental oxygen as needed. We will attempt to wean off BiPAP. Appreciate further input from pulmonology. Seizure disorder Continue Topamax. Last seizure 1 year ago. Crohn's, lupus, scleroderma Patient reports multiple autoimmune disorders, takes methotrexate as well as other medications. Also reports needing multiple blood transfusions in the past. Review home medications, continue as appropriate. DVT PPX: Lovenox Code status:Full Discharge Plan: Home Plan to discharge in: Greater than 2 days - Advance Directives Does patient have a Living Will: No Does patient have a Durable POA for Healthcare: Yes - Code Status/Comfort Care Code Status Assessed: Yes (Full code) Critical Care: No Time Spent Managing Pts Care (In Minutes): 70
[2022-11-26] MEDS ORDERED: NS KCL 20MEQ 1,000 ML IV ONE (23:17)
[2022-11-26] MEDS ORDERED: KCL 20 MEQ/100 mL IVPB 100 ML IV ONE (23:17)
[2022-11-26] MEDS ORDERED: ASPIRIN 81 MG CHEWABLE TABLET ONE (23:17)
[2022-11-26 23:43] LABS: SARS-COV-2 RT PCR POSITIVE (NEGATIVE)
[2022-11-27] MEDS ORDERED: ONDANSETRON 4 MG/2 ML VIAL IV PRN (01:08)
[2022-11-27] MEDS ORDERED: ALBUTEROL 2.5 MG/3 ML NEB SOL NEB PRN ×2 (01:08→14:00)
[2022-11-27] MEDS ORDERED: PROMETHAZINE INJ 25 MG/ML AMP ONE (01:15)
[2022-11-27] MEDS ORDERED: DIPHENHYDRAMINE 50 MG/ML VIAL ONE (01:16)
[2022-11-27] MEDS ORDERED: HYDROMORPHONE HCL 1 MG/ML INJ ONE (01:16)
[2022-11-27 05:24] LABS: Absolute Lymphocytes (CBC) 0.3 K/uL (0.7-4.9); Hematocrit 31.7 % (36.0-45.0); Lymphocytes % 8.7 % (15.3-44.8); MCV 88.3 fL (80-100); RBC Red Blood Cell Count 3.59 M/uL (3.86-4.86)
[2022-11-27 05:36] LABS: Potassium 3.6 mmol/L (3.5-5.1)
[2022-11-27] MEDS ORDERED: KCL 20 MEQ/100 mL IVPB 100 ML IV ONE (05:58)
[2022-11-27] MEDS ORDERED: KCL 20 MEQ/100 mL IVPB 20 MEQ/100 ML BAG IV SCH (06:00)
[2022-11-27 07:48] LABS: Ferritin 430.3 ng/mL (8-388)
[2022-11-27] MEDS ORDERED: ENOXAPARIN 40 MG/0.4 ML SQ ONE (08:44)
[2022-11-27] MEDS ORDERED: dexAMETHasone 10 MG/ML VIAL ONE (08:44)
[2022-11-27] MEDS ORDERED: NA CHLORIDE 0.9% 100 ML IV ONE (08:44)
[2022-11-27] MEDS ORDERED: PIPERACIL/TAZO 3.375 GM VIAL IV ONE (08:45)
[2022-11-27] MEDS ORDERED: FUROSEMIDE 20 MG/ 2ML VIAL ONE (08:45)
[2022-11-27] MEDS ORDERED: ONDANSETRON 4 MG/2 ML VIAL ONE (08:53)
[2022-11-27] MEDS ORDERED: HYDROCODONE/APAP 10/325 TAB ONE (08:53)
[2022-11-27] MEDS ORDERED: PIPER TAZO 3.375 GM in NA CHLORIDE 0.9% 100 ML IV SCH (09:00)
[2022-11-27] MEDS ORDERED: ENOXAPARIN 40 MG/0.4 ML SQ SCH (09:00)
[2022-11-27] MEDS ORDERED: AZITHROMYCIN IV 500 MG in NA CHLORIDE 0.9% 250 ML IVPB SCH ×2 (09:00→21:00)
[2022-11-27] MEDS ORDERED: dexAMETHasone 10 MG/ML VIAL IV SCH (09:00)
[2022-11-27] MEDS: FUROSEMIDE 20 MG/ 2ML VIAL IV SCH ×2 (09:00→16:50)
[2022-11-27] MEDS: HYDROCODONE/APAP 10/325 TAB PO PRN (09:26)
--- NOTE | 2022-11-27 12:16 | P.CNS ---
Date of Consult: 11/27/22 Reason for Consult: Respiratory failure Chief Complaint: COVID-19 pneumonia, respiratory failure History of Present Illness: Patient is 47 years of age multiple immune disorders including Crohn's and she contracted COVID on November 01 has had multiple antibiotics antivirals continue to deteriorate came into the hospital with respiratory failure significant hypoxemia lateral pneumonia. Pulmonary angiogram was negative for pulmonary embolism Allergies Cephalosporins Allergy (Verified 05/04/18 13:53) cardiac arrest codeine [Codeine] Allergy (Verified 05/04/18 13:53) cardiac arrest esomeprazole mag [From Nexium] Allergy (Verified 05/04/18 13:53) Anaphylaxis meperidine HCl [From Demerol] Allergy (Verified 05/04/18 13:53) cardiac arrest morphine Allergy (Verified 05/04/18 13:53) cardiac arrest ondansetron [From Zofran] Allergy (Verified 05/04/18 13:53) severe bradycardia zolpidem [From Ambien] Adverse Reaction (Verified 05/04/18 13:53) sleep walking/ hallucinations Home Medications: diazePAM [Diazepam] 10 mg PO BEDTIME PRN 05/04/18 Cholecalciferol (Vitamin D3) [Vitamin D3] 1 tab PO DAILY 08/26/21 Methotrexate Sodium/Pf [Methotrexate 50 mg/2 ml Vial] 50 mg IJ SEECOM 08/26/21 Promethazine Tab [Phenergan*] 2 tab PO Q6H PRN 08/26/21 Doxycycline Hyclate 1 tab PO DAILY 11/27/22 Fluticasone [Flonase 50MCG Nasal [place]*] 1 inh ISAEL PRN PRN 11/27/22 Furosemide 20 mg PO DAILY 11/27/22 Lidocaine 2% Viscous Oral [Xylocaine Viscous Oral 2%] 15 ml PO PRN 11/27/22 - Past Medical/Surgical History Diabetic: No -: CHRON'S -: COLITIS -: SCLERODERMA -: EPILEPSY -: ANEMIA -: RAYNAUD'S SYNDROME -: MIGRAINE HEADACHES -: HYPERTENSION -: HERNIA REPAIR -: IVAN -: TONSILLECTOMY -: REMOVAL OF STOMACH -: REMOVAL OF ESOPHAGUS -: INTERPOSITION OF JEJUNUM Psychosocial/ Personal History: Lives at home with family - Family History Sister Medical History: Heart disease, Cancer Father Medical History: Heart disease - Social History Smoking Status: Unknown if ever smoked Alcohol use: No CD- Drugs: No Caffeine use: Yes Place of Residence: Home Review of Systems 10-point ROS is otherwise unremarkable General: Weakness Respiratory: Cough, Shortness of Breath Physical Examination Temp Pulse Resp BP Pulse Ox 97.5 F 76 30 H 115/70 94 11/27/22 08:00 11/27/22 09:00 11/27/22 09:26 11/27/22 09:00 11/27/22 09:26 General: Alert, Oriented x3, Moderate distress Respiratory: Clear to auscultation bilaterally, Diminished Cardiovascular: No edema, Regular rate/rhythm, Normal S1 S2 Gastrointestinal: Normal bowel sounds, Soft and benign Musculoskeletal: No clubbing, No swelling, No contractures Laboratory Data (last 24 hrs) 11/26/22 22:10: PT 14.3 H, INR 1.30, APTT 30.1 11/26/22 20:59: Magnesium 2.1 11/26/22 20:59: Sodium 137, Potassium 3.0 L, BUN 15, Creatinine 0.72, Glucose 111 H, Total Bilirubin 0.5, AST 77 H, ALT 24, Alkaline Phosphatase 182 H 11/26/22 20:59: WBC 5.70, Hgb 11.5 L, Hct 35.2 L, Plt Count 282 - Problems (1) Respiratory failure Current Visit: Yes Status: Acute Plan: Patient is 47 years of age developed COVID November 01 admitted with respiratory failure bilateral opacities her white count is normal she has had antibiotic steroids with no relief nipple immune disorders including Crohn's chemistries reviewed mildly anemic commend changed to IV high-dose IV levofloxacin for now Qualifiers: Chronicity: acute
[2022-11-27] MEDS: Levofloxacin 750mg IV 750 MG/150 ML BAG IV SCH (14:29)
[2022-11-27] MEDS: HYDROMORPHONE HCL 0.5 MG/0.5 ML INJ IV PRN ×2 (15:38→21:26)
--- NOTE | 2022-11-27 17:33 | EKG ---
Test Date: 2022-11-26 Test Time: 20:41:45 Aboriginal Liaison Officer: RV MEASUREMENT RESULTS: Intervals: Rate: 95 IA: 132 QRSD: 74 QT: 352 QTc: 442 Reliance: P: 1 IA: 132 QRS: 18 T: 14 INTERPRETIVE STATEMENTS: Normal sinus rhythm Nonspecific ST and T wave abnormality Abnormal ECG Compared to ECG 08/26/2021 04:00:23 ST (T wave) deviation now present T-wave abnormality no longer present Electronically Signed On 11-27-22 17:30:42 AERONAUTICAL DESIGN ENGINEER by Tay Yuen
[2022-11-27] MEDS ORDERED: LOPERAMIDE HCL 2 MG CAPSULE PO PRN (19:46)
[2022-11-27] MEDS: APIXABAN 2.5 MG TABLET PO SCH (21:22)
[2022-11-27] MEDS: TOPIRAMATE 100 MG TAB PO SCH (21:22)
[2022-11-27] MEDS: dexAMETHasone 10 MG/ML VIAL IV SCH (21:24)
--- NOTE | 2022-11-27 22:27 | P.PN ---
Date of Service: 11/27/22 Subjective: very dyspneic, slight improvement on HFNC chest ache / discomfort ROS: A complete review of systems was performed and is negative except as mentioned above Physical Exam: Gen: AOx3, NAD HEENT: normal conjunctiva, sclera anicteric CV: regular rate & rhythm, no edema Pulm: labored respirations on HFNC, diminished bilaterally with crackles Abd: soft, non-tender, non-distended Neuro: normal speech, normal affect, moves all extremities vitals reviewed Problem List Acute hypoxic respiratory failure secondary to COVID-19 pneumonia possible secondary bacterial infection Seizure disorder Crohn's, lupus, scleroderma chronic pain Acute hypoxic respiratory failure secondary to COVID-19 pneumonia Initially positive for COVID on 11/01, has been on antivirals, antibiotics as there was some concern for secondary bacterial infection. She was given Solu-Medrol, Zosyn, Zithromax in ED. continue these until further evaluation from pulmonology. Continue daily steroids, supplemental oxygen as needed. wean off BiPAP. Seizure disorder Continue Topamax. Last seizure 1 year ago. Crohn's, lupus, scleroderma Patient reports multiple autoimmune disorders, takes methotrexate as well as other medications. Also reports needing multiple blood transfusions in the past. Review home medications, continue as appropriate. continue chronic pain medication DVT PPX: Lovenox Code status:Full Dispo: home, ~4-5 days; likely will need home O2
[2022-11-27] MEDS: BENZONATATE 100 MG CAP PO PRN (23:33)
[2022-11-28] MEDS: HYDROMORPHONE HCL 0.5 MG/0.5 ML INJ IV PRN ×4 (04:36→20:25)
[2022-11-28 05:45] LABS: Absolute Lymphocytes (CBC) 0.4 K/uL (0.7-4.9); Hematocrit 32.1 % (36.0-45.0); Lymphocytes % 6.2 % (15.3-44.8); MCV 88.3 fL (80-100); RBC Red Blood Cell Count 3.63 M/uL (3.86-4.86)
[2022-11-28 06:07] LABS: Albumin 2.1 g/dL (3.4-5.0); Bilirubin Total 0.4 mg/dL (0.2-1.0); Ferritin 550.6 ng/mL (8-388); Magnesium 2.1 mg/dL (1.6-2.4); Potassium 3.7 mmol/L (3.5-5.1); Protein, Total 5.7 g/dL (6.4-8.2)
[2022-11-28 07:44] LABS: Blood Morphology Comment NOT SEEN (NOT SEEN); Platelet Estimate ADEQ; White Blood Cell Scan OK (OK)
--- NOTE | 2022-11-28 07:48 | P.PN ---
Date of Service: 11/28/22 Subjective: slight improvement continues with pain, feels pain medication not helping dyspneic with minimal movement / standing requesting destiny ROS: A complete review of systems was performed and is negative except as mentioned above Physical Exam: Gen: AOx3, NAD HEENT: normal conjunctiva, sclera anicteric CV: regular rate & rhythm, no edema Pulm: labored respirations on HFNC, diminished bilaterally with crackles Abd: soft, non-tender, non-distended Neuro: normal speech, normal affect, moves all extremities vitals reviewed Problem List Acute hypoxic respiratory failure secondary to COVID-19 pneumonia possible secondary bacterial infection Seizure disorder Crohn's, lupus, scleroderma chronic pain Acute hypoxic respiratory failure secondary to COVID-19 pneumonia Initially positive for COVID on 11/01, has been on antivirals, antibiotics as there was some concern for secondary bacterial infection. She was given Solu-Medrol, Zosyn, Zithromax in ED. pulm switched to levaquin diflucan added 11/28 Continue daily steroids, supplemental oxygen as needed. mucinex significant dyspnea with exertion, pt requested destiny, did not want purewick Seizure disorder Continue Topamax. Last seizure 1 year ago. Crohn's, lupus, scleroderma Patient reports multiple autoimmune disorders, takes methotrexate as well as other medications. Also reports needing multiple blood transfusions in the past. Review home medications, continue as appropriate. continue chronic pain medication DVT PPX: Lovenox Code status:Full Dispo: home, ~4-5 days; likely will need home O2
[2022-11-28] MEDS ORDERED: POTASSIUM CL SA 10 MEQ TAB PO ONE (09:00)
[2022-11-28] MEDS: FUROSEMIDE 20 MG/ 2ML VIAL IV SCH ×2 (09:57→16:59)
[2022-11-28] MEDS: APIXABAN 2.5 MG TABLET PO SCH ×2 (09:58→20:24)
[2022-11-28] MEDS: BENZONATATE 100 MG CAP PO PRN ×2 (09:58→20:24)
[2022-11-28] MEDS: dexAMETHasone 10 MG/ML VIAL IV SCH ×2 (09:58→20:23)
--- NOTE | 2022-11-28 11:20 | RAD REPORT ---
EXAM DESCRIPTION: RAD - Chest Single View - 11/28/2022 11:01 am CLINICAL HISTORY: covid, hypoxia, pneumonia, f/u COMPARISON: Chest Single View dated 11/26/2022; Chest Single View dated 08/26/2021; Chest Single View dated 04/05/2021; Chest Single View dated 01/05/2020 FINDINGS: Lines: None. Lungs: Similar multifocal interstitial and airspace disease. Pleural: No significant pleural effusions or pneumothorax. Cardiac: Similar size and configuration. Mediastinum: Within normal limits. Bones: No acute fractures. Other: None IMPRESSION: Widespread airspace disease likely reflecting multifocal pneumonia without significant c hange.
--- NOTE | 2022-11-28 11:42 | P.PN ---
Subjective Date of Service: 11/28/22 Chief Complaint: COVID-19 pneumonia, respiratory failure No change in patient's condition she is complaining of epigastric discomfort has difficulty swallowing still hypoxic on 75% FiO2 Review of Systems General: Weakness Respiratory: Shortness of Breath Gastrointestinal: As per HPI Physical Examination - Vital Signs Temperature: 97.2 F Blood Pressure: 113/64 Pulse: 69 Respirations: 24 Pulse Ox (%): 96 - Physical Exam General: Alert, Oriented x3, Mild distress Respiratory: Clear to auscultation bilaterally, Diminished Cardiovascular: No edema, Regular rate/rhythm, Normal S1 S2 Gastrointestinal: Normal bowel sounds, Soft and benign, Non-distended Assessment And Plan - Current Problems (Diagnosis) (1) Respiratory failure Current Visit: Yes Status: Acute Plan: Patient admitted with respiratory failure secondary to COVID-pneumonia bilateral infiltrate patient has not been vaccinated due to her autoimmune condition White count is normal patient's procalcitonin level is also negative change to a narrow spectrum Rocephin due to interaction of levofloxacin with Diflucan Qualifiers: Chronicity: acute (2) Dysphagia Current Visit: Yes Status: Acute Plan: Patient complaining of severe dysphagia some epigastric discomfort for the past 2 weeks unable to eat or drink she has had an esophagectomy and gastrectomy she is also at risk for fungal infections add IV Diflucan for now GI consult Qualifiers: Dysphagia type: esophageal phase Qualified Code(s): R13.19 - Other dysphagia
[2022-11-28] MEDS: FLUCONAZOLE 400 MG IVPB 400 MG/200 ML BAG IV SCH (12:37)
[2022-11-28] MEDS: Levofloxacin 750mg IV 750 MG/150 ML BAG IV SCH (12:37)
[2022-11-28] MEDS: PANTOPRAZOLE 40MG TABLET PO SCH ×2 (12:37→17:00)
[2022-11-28] MEDS: HYDROCODONE/APAP 10/325 TAB PO PRN (18:55)
[2022-11-28] MEDS: TOPIRAMATE 100 MG TAB PO SCH (20:24)
[2022-11-29] MEDS: HYDROMORPHONE HCL 0.5 MG/0.5 ML INJ IV PRN ×5 (02:31→20:28)
[2022-11-29 06:20] LABS: Absolute Lymphocytes (CBC) 0.3 K/uL (0.7-4.9); Hematocrit 30.9 % (36.0-45.0); Lymphocytes % 5.2 % (15.3-44.8); MCV 88.2 fL (80-100); MPV 7.9 fL (7.6-11.3); RBC Red Blood Cell Count 3.51 M/uL (3.86-4.86)
[2022-11-29 06:35] LABS: C-Reactive Protein 69.5 mg/L (<3.00); Potassium 3.7 mmol/L (3.5-5.1)
--- NOTE | 2022-11-29 07:38 | P.PN ---
Date of Service: 11/29/22 Subjective: improving difficulty swallowing regular foods with significant GI history, requesting ensure/boost overall feels better O2 ~ same requirement ROS: A complete review of systems was performed and is negative except as mentioned above Physical Exam: Gen: AOx3, NAD HEENT: normal conjunctiva, sclera anicteric CV: regular rate & rhythm, no edema Pulm: mild labored respirations on HFNC, diminished bilaterally with crackles Abd: soft, non-tender, non-distended Neuro: normal speech, normal affect, moves all extremities vitals reviewed Problem List Acute hypoxic respiratory failure secondary to COVID-19 pneumonia possible secondary bacterial infection Seizure disorder Crohn's, lupus, scleroderma chronic pain Acute hypoxic respiratory failure secondary to COVID-19 pneumonia Initially positive for COVID on 11/01, has been on antivirals, antibiotics as there was some concern for secondary bacterial infection. She was given Solu-Medrol, Zosyn, Zithromax in ED. pulm switched to levaquin diflucan added 11/28 to cover for possible esophageal candidiasis due to patient reporting pain Continue daily steroids, supplemental oxygen as needed. mucinex significant dyspnea with exertion, pt requested dixon, did not want purewick; placed 11/28 CRP improving afebrile; no leukocytosis Seizure disorder Continue Topamax. Last seizure 1 year ago. Crohn's, lupus, scleroderma Patient reports multiple autoimmune disorders, takes methotrexate as well as other medications. Also reports needing multiple blood transfusions in the past. Review home medications, continue as appropriate. continue chronic pain medication DVT PPX: eliquis Code status:Full Dispo: possibly may need LTACH, slow to wean off O2 and moderate lung involvement briefly discussed with patient and her mother on 11/29, tentatively open to it, if needed
[2022-11-29] MEDS: PANTOPRAZOLE 40MG TABLET PO SCH ×2 (07:52→16:58)
[2022-11-29] MEDS: GUAIFENESIN 600 MG SA TAB PO SCH ×2 (07:53→20:27)
[2022-11-29] MEDS: APIXABAN 2.5 MG TABLET PO SCH ×2 (07:53→20:27)
[2022-11-29] MEDS: dexAMETHasone 10 MG/ML VIAL IV SCH ×2 (07:54→20:28)
[2022-11-29] MEDS ORDERED: POTASSIUM CL SA 10 MEQ TAB PO ONE (09:00)
[2022-11-29] MEDS: FLUCONAZOLE 400 MG IVPB 400 MG/200 ML BAG IV SCH (11:03)
[2022-11-29] MEDS: HYDROCODONE/APAP 10/325 TAB PO PRN (11:08)
[2022-11-29] MEDS: Levofloxacin 750mg IV 750 MG/150 ML BAG IV SCH (12:05)
[2022-11-29] MEDS: ENSURE CLEAR 200 ML CAN PO SCH (16:58)
[2022-11-29] MEDS: BENZONATATE 100 MG CAP PO PRN (20:27)
[2022-11-29] MEDS: TOPIRAMATE 100 MG TAB PO SCH (20:27)
[2022-11-30] MEDS: HYDROMORPHONE HCL 0.5 MG/0.5 ML INJ IV PRN ×4 (00:22→18:30)
[2022-11-30 06:22] LABS: Bilirubin Total 0.4 mg/dL (0.2-1.0); C-Reactive Protein 56.1 mg/L (<3.00); Potassium 4.4 mmol/L (3.5-5.1); Protein, Total 5.7 g/dL (6.4-8.2)
[2022-11-30] MEDS: GUAIFENESIN 600 MG SA TAB PO SCH ×2 (08:30→21:21)
[2022-11-30] MEDS: APIXABAN 2.5 MG TABLET PO SCH ×2 (08:30→21:21)
[2022-11-30] MEDS: PANTOPRAZOLE 40MG TABLET PO SCH ×2 (08:30→17:26)
[2022-11-30] MEDS: dexAMETHasone 10 MG/ML VIAL IV SCH (08:31)
[2022-11-30] MEDS: ENSURE CLEAR 200 ML CAN PO SCH ×3 (08:36→17:26)
[2022-11-30] MEDS: FUROSEMIDE 20 MG/ 2ML VIAL IV SCH (08:39)
--- NOTE | 2022-11-30 10:03 | RAD REPORT ---
EXAM DESCRIPTION: RAD - Chest Single View - 11/30/2022 9:46 am CLINICAL HISTORY: hypoxia, covid, f/u opacities Chest pain. COMPARISON: Chest Single View dated 11/28/2022; Chest Single View dated 11/26/2022; Chest Single View dated 08/26/2021; Chest Single View dated 04/05/2021 FINDINGS: Portable technique limits examination quality. There are extensive bilateral pulmonary opacities slightly progressive since comparative study. Most likely this is pneumonia, other possibilities would be pulmonary edema or developing ARDS. The heart is normal in size. No displaced fractures. IMPRESSION: Mild progression airspace disease since comparative study as detailed.
--- NOTE | 2022-11-30 12:34 | P.PN ---
Subjective Date of Service: 11/30/22 Chief Complaint: COVID-19 pneumonia, respiratory failure No change in patient's condition she still is on high concentrations of high flow oxygen Review of Systems General: Weakness Respiratory: Shortness of Breath Physical Examination - Vital Signs Temperature: 97.8 F Blood Pressure: 128/66 Pulse: 64 Respirations: 19 Pulse Ox (%): 94 - Physical Exam General: Alert, Oriented x3 Respiratory: Clear to auscultation bilaterally, Diminished Cardiovascular: No edema, Regular rate/rhythm Assessment And Plan - Current Problems (Diagnosis) (1) Respiratory failure Current Visit: Yes Status: Acute Plan: Respiratory failure secondary to sequela of COVID infection evidence of bacterial infection can DC antibiotics and fungal medication labs chemistries reviewed procalcitonin level is negative reduce dose of IV steroids 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 Diflucan Qualifiers: Chronicity: acute (2) Dysphagia Current Visit: Yes Status: Acute Qualifiers: Dysphagia type: esophageal phase Qualified Code(s): R13.19 - Other dysphagia
[2022-11-30] MEDS: TOPIRAMATE 100 MG TAB PO SCH (21:21)
[2022-11-30] MEDS: HYDROCODONE/APAP 10/325 TAB PO PRN (21:32)
--- NOTE | 2022-11-30 21:46 | P.PN ---
Date of Service: 11/30/22 Subjective: feels about the same today, no change in ability to take deep breath feels like thick mucous stuck in chest tolerating soft diet better than regular ROS: A complete review of systems was performed and is negative except as mentioned above Physical Exam: Gen: AOx3, fatigued appearing HEENT: normal conjunctiva, sclera anicteric CV: regular rate & rhythm, no edema Pulm: mild-mod labored respirations on HFNC, diminished bilaterally with crackles Abd: soft, non-tender, non-distended Neuro: normal speech, normal affect, moves all extremities vitals reviewed Problem List Acute hypoxic respiratory failure secondary to COVID-19 pneumonia possible secondary bacterial infection Seizure disorder Crohn's, lupus, scleroderma chronic pain Acute hypoxic respiratory failure secondary to COVID-19 pneumonia Initially positive for COVID on 11/01, has been on antivirals, antibiotics as there was some concern for secondary bacterial infection. She was given Solu-Medrol, Zosyn, Zithromax in ED. pulm switched to levaquin diflucan added 11/28 to cover for possible esophageal candidiasis due to patient reporting pain Continue daily steroids, supplemental oxygen as needed. mucinex significant dyspnea with exertion, pt requested dixon, did not want purewick; placed 11/28 CRP improving afebrile; no leukocytosis Seizure disorder Continue Topamax. Last seizure 1 year ago. Crohn's, lupus, scleroderma Patient reports multiple autoimmune disorders, takes methotrexate as well as other medications. Also reports needing multiple blood transfusions in the past. Review home medications, continue as appropriate. continue chronic pain medication DVT PPX: eliquis Code status:Full Dispo: possibly may need LTACH, slow to wean off O2 and moderate lung involvement briefly discussed with patient and her mother on 11/29, tentatively open to it, if needed
[2022-12-01 03:45] LABS: Absolute Lymphocytes (CBC) 0.3 K/uL (0.7-4.9); Hematocrit 35.8 % (36.0-45.0); Lymphocytes % 5.2 % (15.3-44.8); MPV 8.1 fL (7.6-11.3); RBC Red Blood Cell Count 4.02 M/uL (3.86-4.86)
[2022-12-01] MEDS: HYDROMORPHONE HCL 0.5 MG/0.5 ML INJ IV PRN ×5 (04:00→20:56)
[2022-12-01 04:13] LABS: Albumin 2.2 g/dL (3.4-5.0); Bilirubin Total 0.5 mg/dL (0.2-1.0); C-Reactive Protein 82.7 mg/L (<3.00); Potassium 4.2 mmol/L (3.5-5.1)
[2022-12-01] MEDS: ENSURE CLEAR 200 ML CAN PO SCH ×3 (08:00→16:52)
[2022-12-01] MEDS: FLUCONAZOLE 100 MG TAB PO SCH (08:41)
[2022-12-01] MEDS: dexAMETHasone 10 MG/ML VIAL IV SCH (08:41)
[2022-12-01] MEDS: PANTOPRAZOLE 40MG TABLET PO SCH ×2 (08:41→16:51)
[2022-12-01] MEDS: APIXABAN 2.5 MG TABLET PO SCH ×2 (08:41→20:56)
[2022-12-01] MEDS: FUROSEMIDE 20 MG/ 2ML VIAL IV SCH (08:41)
[2022-12-01] MEDS: GUAIFENESIN 600 MG SA TAB PO SCH ×2 (08:42→20:56)
--- NOTE | 2022-12-01 17:14 | P.PN ---
Subjective Date of Service: 12/01/22 Chief Complaint: COVID-19 pneumonia, respiratory failure No new changes from yesterday. Patient is still alternating between BiPAP and high flow oxygen. Physical Examination - Vital Signs Temperature: 98.6 F Blood Pressure: 121/68 Pulse: 102 Respirations: 20 Pulse Ox (%): 94 Assessment And Plan - Plan Physical Exam: Gen: AOx3, mild respiratory distress CV: regular rate & rhythm, no edema Pulm: mildly labored respirations on HFNC, bilateral crackles. Abd: soft, non-tender, non-distended Neuro: normal speech, normal affect, moves all extremities Ext: No cyanosis. vitals reviewed Problem List Acute hypoxic respiratory failure secondary to COVID-19 pneumonia possible secondary bacterial infection Seizure disorder Crohn's, lupus, scleroderma chronic pain Acute hypoxic respiratory failure secondary to COVID-19 pneumonia Initially positive for COVID on 11/01, has been on antivirals, antibiotics as there was some concern for secondary bacterial infection. She was given Solu-Medrol, Zosyn, Zithromax in ED. pulm switched to levaquin diflucan added 11/28 to cover for possible esophageal candidiasis due to patient reporting pain Continue daily steroids, supplemental oxygen as needed. mucinex significant dyspnea with exertion, pt requested dixon, placed 11/28 CRP improving afebrile; no leukocytosis. Pulmonary is following. Seizure disorder Continue Topamax. Last seizure 1 year ago. Crohn's, lupus, scleroderma Patient reports multiple autoimmune disorders, takes methotrexate as well as other medications. Also reports needing multiple blood transfusions in the past. Methotrexate on hold for now. DVT PPX: eliquis Code status:Full Dispo: LTAC.
[2022-12-01] MEDS: TOPIRAMATE 100 MG TAB PO SCH (21:00)
[2022-12-02] MEDS: HYDROMORPHONE HCL 0.5 MG/0.5 ML INJ IV PRN ×4 (03:26→17:33)
[2022-12-02] MEDS: ENSURE CLEAR 200 ML CAN PO SCH ×3 (08:00→16:56)
[2022-12-02] MEDS: FLUCONAZOLE 100 MG TAB PO SCH (08:44)
[2022-12-02] MEDS: dexAMETHasone 10 MG/ML VIAL IV SCH ×2 (08:45→17:33)
[2022-12-02] MEDS: FUROSEMIDE 20 MG/ 2ML VIAL IV SCH (08:45)
[2022-12-02] MEDS: APIXABAN 2.5 MG TABLET PO SCH ×2 (08:45→22:24)
[2022-12-02] MEDS: PANTOPRAZOLE 40MG TABLET PO SCH ×2 (08:45→15:06)
[2022-12-02] MEDS: GUAIFENESIN 600 MG SA TAB PO SCH ×2 (08:46→22:24)
[2022-12-02] MEDS: HYDROCODONE/APAP 10/325 TAB PO PRN ×2 (15:09→23:38)
--- NOTE | 2022-12-02 17:09 | P.PN ---
Subjective Date of Service: 12/02/22 Chief Complaint: COVID-19 pneumonia, respiratory failure No changes over the last few days. Patient is requiring high flow with 100% nonrebreather and alternating with BiPAP. Physical Examination - Vital Signs Temperature: 97.5 F Blood Pressure: 100/51 Pulse: 72 Respirations: 20 Pulse Ox (%): 89 - Studies Microbiology Data (last 24 hrs): 11/26/22 20:59 Blood - Blood Aerobic Blood Culture - Final No growth in 5 days. 11/26/22 20:59 Blood - Blood Anaerobic Blood Culture - Final No growth in 5 days. 11/26/22 20:58 Blood - Blood Aerobic Blood Culture - Final No growth in 5 days. 11/26/22 20:58 Blood - Blood Anaerobic Blood Culture - Final No growth in 5 days. Assessment And Plan - Plan Physical Exam: Gen: AOx3, mild respiratory distress CV: regular rate & rhythm, no edema Pulm: mildly labored respirations on HFNC, bilateral crackles. Abd: soft, non-tender, non-distended Neuro: normal speech, normal affect, moves all extremities Ext: No cyanosis. vitals reviewed Problem List Acute hypoxic respiratory failure secondary to COVID-19 pneumonia possible secondary bacterial infection Seizure disorder Crohn's, lupus, scleroderma chronic pain Acute hypoxic respiratory failure secondary to COVID-19 pneumonia Initially positive for COVID on 11/01, has been on antivirals, antibiotics as there was some concern for secondary bacterial infection. She was given Solu-Medrol, Zosyn, Zithromax in ED. On Levaquin per pulmonary diflucan added 11/28 to cover for possible esophageal candidiasis due to patient reporting pain Continue dexamethasone, high flow oxygen and BiPAP. mucinex significant dyspnea with exertion, pt requested dixon, placed 11/28. Dixon catheter discontinued to reduce risk of catheter related UTI. afebrile; no leukocytosis. Pulmonary is following. Seizure disorder Continue Topamax. Last seizure 1 year ago. Crohn's, lupus, scleroderma Patient reports multiple autoimmune disorders, takes methotrexate as well as o ther medications. Also reports history of multiple blood transfusions in the past. Methotrexate on hold for now. DVT PPX: eliquis Code status:Full Dispo: LTAC once oxygen weaned to 60% FiO2. Mother updated on current clinical condition.
--- NOTE | 2022-12-02 17:16 | P.PN ---
Subjective Date of Service: 12/02/22 Chief Complaint: COVID-19 pneumonia, respiratory failure No change in patient's condition since still continues to remain very hypoxic quiring 100% FiO2 with high flow intolerant to BiPAP Review of Systems General: Weakness Respiratory: Shortness of Breath Physical Examination - Vital Signs Temperature: 97.5 F Blood Pressure: 100/51 Pulse: 72 Respirations: 20 Pulse Ox (%): 89 - Physical Exam General: Alert, Moderate distress Respiratory: Clear to auscultation bilaterally, Diminished Cardiovascular: No edema, Regular rate/rhythm, Normal S1 S2 - Studies Microbiology Data (last 24 hrs): 11/26/22 20:59 Blood - Blood Aerobic Blood Culture - Final No growth in 5 days. 11/26/22 20:59 Blood - Blood Anaerobic Blood Culture - Final No growth in 5 days. 11/26/22 20:58 Blood - Blood Aerobic Blood Culture - Final No growth in 5 days. 11/26/22 20:58 Blood - Blood Anaerobic Blood Culture - Final No growth in 5 days. Assessment And Plan - Current Problems (Diagnosis) (1) Respiratory failure Current Visit: Yes Status: Acute Plan: Respiratory failure from COVID infection prognosis poor still requiring high concentrations of oxygen intolerant to BiPAP chemistries and labs reviewed Qualifiers: Chronicity: acute (2) Dysphagia Current Visit: Yes Status: Acute Plan: Patient complaining of severe dysphagia some epigastric discomfort for the past 2 weeks unable to eat or drink she has had an esophagectomy and gastrectomy she is also at risk for fungal infections add IV Diflucan for now GI consult Qualifiers: Dysphagia type: esophageal phase Qualified Code(s): R13.19 - Other dysphagia
[2022-12-02] MEDS: TOPIRAMATE 100 MG TAB PO SCH ×2 (21:00→22:24)
--- NOTE | 2022-12-03 01:47 | P.PN ---
Date of Service: 12/03/22 Rapid response called at 0130. Patient had turned onto her stomach while sleeping and desaturated to the low 70s. She was cyanotic and diaphoretic when I arrived. She still refused bipap, was on high flow and nonrebreather. Slowly improved to the high 80s/low 90s (which RT reports is where she has been saturating). Cyanosis slowly resolved. I later discussed with her, because she is refusing bipap, if she would want to be intubated if necessary. She stated that she does NOT want to be intubated and understands the risks.
[2022-12-03 04:46] LABS: Absolute Lymphocytes (CBC) 0.4 K/uL (0.7-4.9); Lymphocytes % 3.9 % (15.3-44.8); MCV 88.3 fL (80-100); MPV 8.2 fL (7.6-11.3)
[2022-12-03] MEDS: HYDROMORPHONE HCL 0.5 MG/0.5 ML INJ IV PRN ×3 (05:00→16:04)
[2022-12-03 05:14] LABS: Albumin 2.1 g/dL (3.4-5.0); Bilirubin Total 0.6 mg/dL (0.2-1.0); Potassium 4.2 mmol/L (3.5-5.1); Protein, Total 6.3 g/dL (6.4-8.2)
[2022-12-03 05:23] LABS: Blood Morphology Comment NOTED (NOT SEEN); Platelet Estimate ADEQ; Polychromasia 1+; Teardrop Cell 1+
[2022-12-03] MEDS: ENSURE CLEAR 200 ML CAN PO SCH ×3 (08:00→17:00)
[2022-12-03] MEDS: dexAMETHasone 10 MG/ML VIAL IV SCH (09:11)
[2022-12-03] MEDS: APIXABAN 2.5 MG TABLET PO SCH ×2 (09:11→21:19)
[2022-12-03] MEDS: GUAIFENESIN 600 MG SA TAB PO SCH ×2 (09:11→21:19)
[2022-12-03] MEDS: FLUCONAZOLE 100 MG TAB PO SCH (09:11)
[2022-12-03] MEDS: PANTOPRAZOLE 40MG TABLET PO SCH ×2 (09:11→16:04)
[2022-12-03] MEDS: FUROSEMIDE 20 MG/ 2ML VIAL IV SCH (09:12)
--- NOTE | 2022-12-03 15:41 | P.PN ---
Subjective Date of Service: 12/03/22 Chief Complaint: COVID-19 pneumonia, respiratory failure Rapid response was called on the patient last night for hypoxia. Oxygen saturation eventually recovered on high flow oxygen and 100% nonrebreather Patient was tolerating the high flow oxygen and 100% nonrebreather with oxygen s aturation greater than 90% during my examination this morning. She was talking without signs of distress. She has not voided since Dixon catheter removal yesterday. Bladder scan revealed 500 mils of retained urine. Patient reports prior history of urinary retention. Physical Examination - Vital Signs Temperature: 97.7 F Blood Pressure: 107/59 Pulse: 95 Respirations: 24 Pulse Ox (%): 100 Assessment And Plan - Plan Physical Exam: Gen: AOx3, mild respiratory distress CV: regular rate & rhythm, no edema Pulm: mildly labored respirations on HFNC, bilateral crackles. Abd: soft, non-tender, non-distended Neuro: normal speech, normal affect, moves all extremities Ext: No cyanosis. vitals reviewed Problem List Acute hypoxic respiratory failure secondary to COVID-19 pneumonia possible secondary bacterial infection Seizure disorder Crohn's, lupus, scleroderma chronic pain Acute urinary retention. Acute hypoxic respiratory failure secondary to COVID-19 pneumonia Initially positive for COVID on 11/01, has been on antivirals, antibiotics as there was some concern for secondary bacterial infection. She was given Solu-Medrol, Zosyn, Zithromax in ED. Continue Levaquin for possible secondary bacterial infection diflucan added 11/28 to cover for possible esophageal candidiasis due to patient reporting pain Continue dexamethasone, high flow oxygen and BiPAP. mucinex significant dyspnea with exertion, pt requested dixon, placed 11/28. Dixon catheter discontinued yesterday but patient retaining up to 500 ml of urine. Dixon catheter reinserted for acute urinary retention afebrile; no leukocytosis. Pulmonary is following. Seizure disorder Continue Topamax. Last seizure 1 year ago. Crohn's, lupus, scleroderma Patient reports multiple autoimmune disorders, takes methotrexate as well as other medications. Also reports history of multiple blood transfusions in the past. Methotrexate on hold for now. DVT PPX: eliquis Code status:Full Dispo: LTAC once oxygen weaned to 60% FiO2.
[2022-12-03] MEDS: Levofloxacin 750mg IV 750 MG/150 ML BAG IV SCH (16:03)
[2022-12-03] MEDS: HYDROCODONE/APAP 10/325 TAB PO PRN (17:50)
[2022-12-03] MEDS: LACTOSE-REDUCED FOOD 330 ML LIQUID PO SCH (21:00)
[2022-12-03] MEDS: TOPIRAMATE 100 MG TAB PO SCH ×2 (21:00→21:19)
[2022-12-04] MEDS: HYDROMORPHONE HCL 0.5 MG/0.5 ML INJ IV PRN ×3 (00:30→19:20)
[2022-12-04 06:38] LABS: Absolute Lymphocytes (CBC) 0.5 K/uL (0.7-4.9); Hematocrit 35.6 % (36.0-45.0); Lymphocytes % 4.8 % (15.3-44.8); MCV 87.7 fL (80-100); MPV 8.2 fL (7.6-11.3); RBC Red Blood Cell Count 4.05 M/uL (3.86-4.86)
[2022-12-04 06:49] LABS: Bilirubin Total 0.5 mg/dL (0.2-1.0); Potassium 4.2 mmol/L (3.5-5.1); Protein, Total 5.8 g/dL (6.4-8.2)
[2022-12-04] MEDS ORDERED: ALPRAZOLAM 0.5 MG TABLET PO PRN (08:45)
[2022-12-04] MEDS: FLUCONAZOLE 100 MG TAB PO SCH (09:00)
[2022-12-04] MEDS: LACTOSE-REDUCED FOOD 330 ML LIQUID PO SCH ×2 (09:00→21:00)
[2022-12-04] MEDS: GUAIFENESIN 600 MG SA TAB PO SCH ×2 (09:00→21:00)
[2022-12-04] MEDS: dexAMETHasone 10 MG/ML VIAL IV SCH (09:59)
[2022-12-04] MEDS: FUROSEMIDE 20 MG/ 2ML VIAL IV SCH (09:59)
[2022-12-04] MEDS: PANTOPRAZOLE 40MG TABLET PO SCH ×3 (10:02→16:27)
[2022-12-04] MEDS: APIXABAN 2.5 MG TABLET PO SCH (10:02)
[2022-12-04] MEDS: ENSURE CLEAR 200 ML CAN PO SCH ×3 (10:03→16:26)
[2022-12-04] MEDS: DEXMEDETOMIDINE HCL 200 MCG in NA CHLORIDE 0.9% 98 ML IV SCH ×3 (13:34→21:03)
--- NOTE | 2022-12-04 15:32 | P.PN ---
Subjective Date of Service: 12/04/22 Chief Complaint: COVID-19 pneumonia, respiratory failure Patient refused to wear BiPAP this morning and will only wear high flow oxygen and 100% nonrebreather. Her oxygen saturation on the high flow with 100% FiO2 and 100% nonrebreathing mask was ranging from the 60s to 75, initially then improved to the 80s. Physical Examination - Vital Signs Temperature: 97.5 F Blood Pressure: 111/55 Pulse: 99 Respirations: 24 Pulse Ox (%): 86 Assessment And Plan - Plan Physical Exam: Gen: AOx3, mild respiratory distress CV: regular rate & rhythm, no edema Pulm: mildly labored respirations on HFNC, bilateral crackles. Abd: soft, non-tender, non-distended Neuro: normal speech, normal affect, moves all extremities Ext: No cyanosis. vitals reviewed Problem List Acute hypoxic respiratory failure secondary to COVID-19 pneumonia possible secondary bacterial infection Seizure disorder Crohn's, lupus, scleroderma chronic pain Acute urinary retention. Acute hypoxic respiratory failure secondary to COVID-19 pneumonia Initially positive for COVID on 11/01, has been on antivirals, antibiotics as there was some concern for secondary bacterial infection. Continue Levaquin for possible secondary bacterial infection diflucan added 11/28 to cover for possible esophageal candidiasis due to patient reporting pain Continue dexamethasone, high flow oxygen and BiPAP. Patient transferred to the ICU to the progressive increasing oxygen requirement. Patient put on a trial of Precedex drip for light sedation with BiPAP to improve her compliance per pulmonary. [place] catheter maintain for acute urinary retention afebrile; no leukocytosis. Pulmonary is following. Seizure disorder Continue Topamax. Last seizure 1 year ago. Crohn's, lupus, scleroderma Patient reports multiple autoimmune disorders, takes methotrexate as well as other medications. Reported history of multiple blood transfusions in the past. Methotrexate on hold for now. DVT PPX: eliquis Code status:Full Dispo: LTAC once oxygen weaned to 60% FiO2.
[2022-12-04] MEDS: Levofloxacin 750mg IV 750 MG/150 ML BAG IV SCH (16:18)
[2022-12-04] MEDS ORDERED: SODIUM CHLORIDE 0.9% 10ML INJ IV PRN (18:22)
[2022-12-04] MEDS: FLUCONAZOLE 200mg IVPB 200 MG/100 ML BAG IV SCH (20:27)
[2022-12-04] MEDS: ENOXAPARIN 100 MG/ML SYR SQ SCH (20:28)
[2022-12-04] MEDS: PANTOPRAZOLE 40 MG INJ IVP SCH (20:29)
[2022-12-04] MEDS: TOPIRAMATE 100 MG TAB PO SCH (21:00)
--- NOTE | 2022-12-04 21:05 | RAD REPORT ---
EXAM DESCRIPTION: RAD - Chest Single View - 12/04/2022 8:45 pm CLINICAL HISTORY: S/P PICC COMPARISON: Chest Single View dated 11/30/2022; Chest Single View dated 11/28/2022; Chest Single View dated 11/26/2022; Chest Single View dated 08/26/2021hest Single View dated 11/30/2022; Chest Single Vi ew dated 11/28/2022; Chest Single View dated 11/26/2022; Chest Single View dated 08/26/2021; Chest For Pe Angio dated 11/26/2022 FINDINGS: Lines: Right subclavian approach PICC with tip overlying the SVC Lungs: Moderate bilateral interstitial airspace disease is similar. Pleural: No significant pleural effusions or pneumothorax. Cardiac: Similar size and configuration Mediastinum: Within normal limits. Bones: No acute fractures. Other: None IMPRESSION: 1. Right subclavian approach PICC with tip overlying the SVC in satisfactory position. 2. Widespread airspace disease unchanged since 11/30/2022 that may reflect multifocal pneumonia, rodrigue a, and/or ARDS.
[2022-12-05] MEDS: HYDROMORPHONE HCL 0.5 MG/0.5 ML INJ IV PRN ×2 (00:17→10:16)
[2022-12-05] MEDS: DEXMEDETOMIDINE HCL 200 MCG in NA CHLORIDE 0.9% 98 ML IV SCH ×2 (04:01→10:10)
[2022-12-05 05:24] LABS: Absolute Lymphocytes (CBC) 0.5 K/uL (0.7-4.9); Hematocrit 37.3 % (36.0-45.0); Lymphocytes % 6.1 % (15.3-44.8); MCV 88.4 fL (80-100); MPV 8.4 fL (7.6-11.3); RBC Red Blood Cell Count 4.23 M/uL (3.86-4.86)
[2022-12-05 05:40] LABS: Albumin 2.2 g/dL (3.4-5.0); Bilirubin Total 0.5 mg/dL (0.2-1.0); Potassium 4.2 mmol/L (3.5-5.1); Protein, Total 6.2 g/dL (6.4-8.2)
[2022-12-05] MEDS: ENSURE CLEAR 200 ML CAN PO SCH ×3 (08:00→17:00)
[2022-12-05] MEDS: GUAIFENESIN 600 MG SA TAB PO SCH ×2 (08:24→20:09)
[2022-12-05] MEDS: LACTOSE-REDUCED FOOD 330 ML LIQUID PO SCH ×2 (08:24→20:09)
[2022-12-05] MEDS: ENOXAPARIN 100 MG/ML SYR SQ SCH ×2 (08:32→20:09)
[2022-12-05] MEDS: dexAMETHasone 10 MG/ML VIAL IV SCH (08:32)
[2022-12-05] MEDS: PANTOPRAZOLE 40 MG INJ IVP SCH ×2 (08:33→20:08)
[2022-12-05] MEDS: FUROSEMIDE 20 MG/ 2ML VIAL IV SCH (08:33)
--- NOTE | 2022-12-05 11:30 | P.PN ---
Subjective Date of Service: 12/05/22 Chief Complaint: ARDS secondary to COVID-pneumonia Patient was transferred to the ICU she continues to remain on maximum ventilatory support with 100% FiO2 Review of Systems Respiratory: Shortness of Breath Physical Examination - Vital Signs Temperature: 97.8 F Blood Pressure: 107/71 Pulse: 64 Respirations: 46 Pulse Ox (%): 96 - Physical Exam General: Alert, In no apparent distress, Moderate distress Respiratory: Clear to auscultation bilaterally Cardiovascular: No edema, Regular rate/rhythm, Normal S1 S2 Assessment And Plan - Current Problems (Diagnosis) (1) Respiratory failure Current Visit: Yes Status: Acute Plan: Respiratory failure from COVID pulmonary fibrosis prognosis very poor we increase the EPAP today start patient on TPN or PPN as tolerated still has difficulty swallowing chemistries reviewed white count is normal may end up on a ventilator Qualifiers: Chronicity: acute (2) Dysphagia Current Visit: Yes Status: Acute Plan: Patient still continues to have difficulty swallowing Qualifiers: Dysphagia type: esophageal phase Qualified Code(s): R13.19 - Other dysphagia
--- NOTE | 2022-12-05 12:04 | P.PN ---
Subjective Date of Service: 12/05/22 Chief Complaint: ARDS secondary to COVID-pneumonia Patient currently tolerating BiPAP with light sedation with Precedex. She is needing 100% FiO2. Physical Examination - Vital Signs Temperature: 97.8 F Blood Pressure: 107/71 Pulse: 64 Respirations: 46 Pulse Ox (%): 96 Assessment And Plan - Plan Physical Exam: Gen: Awake, mild respiratory distress CV: regular rate & rhythm, no edema Pulm: Tachypnea on BiPAP, bilateral crackles. Abd: soft, non-tender, non-distended Neuro: normal speech, moves all extremities Ext: No cyanosis. vitals reviewed Problem List Acute hypoxic respiratory failure secondary to COVID-19 pneumonia ARDS secondary to COVID-pneumonia possible secondary bacterial infection Seizure disorder Crohn's, lupus, scleroderma chronic pain Acute urinary retention. Acute hypoxic respiratory failure secondary to COVID-19 pneumonia Initially positive for COVID on 11/01, has been on antivirals and antibiotics as there was some concern for secondary bacterial infection. Continue Levaquin for possible secondary bacterial infection diflucan added 11/28 to cover for possible esophageal candidiasis due to patient reporting pain Continue dexamethasone, high flow oxygen and BiPAP as needed. Continue ICU care. Pulmonary following and has had on Precedex to improve compliance with the BiPAP. Patient with poor oral intake. TPN started. De Leon catheter maintain for acute urinary retention afebrile; no leukocytosis. Seizure disorder Continue Topamax. Last seizure 1 year ago. Crohn's, lupus, scleroderma Patient reports multiple autoimmune disorders, takes methotrexate as well as other medications. Reported history of multiple blood transfusions in the past. Methotrexate has been on hold. DVT PPX: eliquis Code status:Full Dispo: LTAC once oxygen weaned to 60% FiO2. Prognosis guarded.
[2022-12-05] MEDS: DEXMEDETOMIDINE HCL 1,000 MCG in NA CHLORIDE 0.9% 490 ML IV SCH (13:59)
[2022-12-05] MEDS: Levofloxacin 750mg IV 750 MG/150 ML BAG IV SCH (17:49)
[2022-12-05] MEDS: AA 5%/D20W/ELECTROLYTES-TPN 2,000 ML, Lipids 20% 250 ML with MULTIVITAMINS INJ 10 ML IV SCH ×3 (17:50)
[2022-12-05] MEDS: HYDROMORPHONE HCL 1 MG/ML INJ IV PRN ×2 (17:50→21:40)
[2022-12-05] MEDS: FLUCONAZOLE 200mg IVPB 200 MG/100 ML BAG IV SCH (20:09)
[2022-12-05] MEDS: TOPIRAMATE 100 MG TAB PO SCH (20:10)
[2022-12-06] MEDS: DEXMEDETOMIDINE HCL 1,000 MCG in NA CHLORIDE 0.9% 490 ML IV SCH ×2 (00:48→09:53)
[2022-12-06] MEDS: HYDROMORPHONE HCL 1 MG/ML INJ IV PRN ×2 (03:35→07:05)
[2022-12-06 05:00] LABS: Absolute Lymphocytes (CBC) 0.7 K/uL (0.7-4.9); Hematocrit 39.4 % (36.0-45.0); Lymphocytes % 7.7 % (15.3-44.8); MPV 8.2 fL (7.6-11.3); RBC Red Blood Cell Count 4.43 M/uL (3.86-4.86)
[2022-12-06 05:24] LABS: Bilirubin Total 0.4 mg/dL (0.2-1.0); Potassium 4.2 mmol/L (3.5-5.1); Protein, Total 5.9 g/dL (6.4-8.2)
[2022-12-06] MEDS: ENSURE CLEAR 200 ML CAN PO SCH ×3 (08:00→16:32)
[2022-12-06] MEDS: dexAMETHasone 10 MG/ML VIAL IV SCH (08:09)
[2022-12-06] MEDS: ENOXAPARIN 100 MG/ML SYR SQ SCH ×2 (08:09→21:14)
[2022-12-06] MEDS: FUROSEMIDE 20 MG/ 2ML VIAL IV SCH (08:10)
[2022-12-06] MEDS: PANTOPRAZOLE 40 MG INJ IVP SCH ×2 (08:10→21:14)
[2022-12-06] MEDS: LACTOSE-REDUCED FOOD 330 ML LIQUID PO SCH ×2 (09:00→21:00)
[2022-12-06] MEDS: GUAIFENESIN 600 MG SA TAB PO SCH ×2 (09:00→21:00)
[2022-12-06] MEDS: MIDAZOLAM HCL 2 MG/2 ML INJ IV ONE ×2 (09:18→09:25)
[2022-12-06] MEDS ORDERED: MIDAZOLAM HCL 2 MG/2 ML INJ ONE (09:21)
--- NOTE | 2022-12-06 10:24 | P.PN ---
Subjective Date of Service: 12/06/22 Chief Complaint: ARDS secondary to COVID-pneumonia Patient looks irritable on BiPAP despite being on Precedex drip and getting hydromorphone IV as needed. She is still requiring maximum vent support. Physical Examination - Vital Signs Temperature: 98 F Blood Pressure: 104/71 Pulse: 77 Respirations: 33 Pulse Ox (%): 93 Assessment And Plan - Plan Physical Exam: Gen: Awake, mild respiratory distress CV: regular rate & rhythm, no edema Pulm: Tachypneic on BiPAP, bilateral crackles. Abd: soft, non-tender, non-distended Neuro: normal speech, moves all extremities Ext: No cyanosis. vitals reviewed Problem List Acute hypoxic respiratory failure secondary to COVID-19 pneumonia ARDS secondary to COVID-pneumonia possible secondary bacterial infection Seizure disorder Crohn's, lupus, scleroderma chronic pain Acute urinary retention. Acute hypoxic respiratory failure secondary to COVID-19 pneumonia Initially positive for COVID on 11/01, has been on antivirals. She is on Levaquin for concern for secondary bacterial infection. Also on diflucan to cover for possible esophageal candidiasis due to patient reporting pain Continue dexamethasone, high flow oxygen and BiPAP as needed. Continue ICU care. Pulmonary following and has on Precedex to improve compliance with the BiPAP. Hydromorphone IV as needed for symptom management. We will try low-dose Versed as patient is fully awake on max Precedex drip. Patient with poor oral intake. TPN started. De Leon catheter maintain for acute urinary retention afebrile; no leukocytosis. Seizure disorder Continue Topamax. No seizures. Crohn's, lupus, scleroderma Patient reports multiple autoimmune disorders, takes methotrexate as well as other medications. Reported history of multiple blood transfusions in the past. Methotrexate has been on hold. DVT PPX: eliquis Code status:Full Dispo: LTAC once oxygen weaned to 60% FiO2. Prognosis guarded.
[2022-12-06] MEDS ORDERED: RSI MEDICATION KIT IV ONE (11:01)
[2022-12-06] MEDS ORDERED: propofoL 500 MG/50 ML ML IV ONE ×2 (11:08→13:49)
[2022-12-06] MEDS ORDERED: NA CHLORIDE 0.9% 1,000 ML ONE (11:28)
[2022-12-06] MEDS ORDERED: propofoL 500 MG/50 ML ML IV PRN ×2 (11:38→13:58)
[2022-12-06] MEDS: propofoL 500 MG/50 ML ML IV PRN ×5 (11:38→21:13)
[2022-12-06] MEDS: propofoL 500 MG/50 ML ML IV ONE ×2 (11:39→13:57)
[2022-12-06] MEDS ORDERED: NA CHLORIDE 0.9% 250 ML IV PRN (11:45)
--- NOTE | 2022-12-06 11:51 | P.PN ---
Subjective Date of Service: 12/06/22 Chief Complaint: ARDS secondary to COVID-pneumonia Patient is not doing well deteriorating 100% FiO2 able to maintain sat patient is becoming agitated pulling off the mask developed significant hypoxemia and was cyanotic and discussed with the patient she wanted to be intubated Review of Systems Respiratory: Shortness of Breath Physical Examination - Vital Signs Temperature: 98 F Blood Pressure: 130/81 Pulse: 79 Respirations: 40 Pulse Ox (%): 85 - Physical Exam General: Severe distress Respiratory: Clear to auscultation bilaterally, Diminished Cardiovascular: No edema, Regular rate/rhythm Assessment And Plan - Current Problems (Diagnosis) (1) Respiratory failure Current Visit: Yes Status: Acute Plan: Patient admitted with respiratory failure can Ruy to COVID-pneumonia gnosis poor cussed with the patient she needs to be intubated able to be managed on BiPAP she pulls her mask off and developed significant desaturation with cyanosis chemistries reviewed no evidence of sepsis DC levofloxacin she will need some tube feeds prone pressure ventilation prognosis poor all cultures are so far negative Qualifiers: Chronicity: acute (2) Dysphagia Current Visit: Yes Status: Acute Plan: Patient still continues to have difficulty swallowing Qualifiers: Dysphagia type: esophageal phase Qualified Code(s): R13.19 - Other dysphagia
[2022-12-06] MEDS ORDERED: propofoL 1,000 MG/100 ML VIAL IV SCH (12:00)
[2022-12-06] MEDS: HALOPERIDOL LACT 5 MG/ML INJ IV PRN (12:16)
[2022-12-06] MEDS: LORazepam 2 MG/ML VIAL IV PRN ×2 (12:16→23:40)
[2022-12-06] MEDS: CISATRACURIUM INJECTION 2 MG/ML (10 ML Vial) IV PRN (12:30)
--- NOTE | 2022-12-06 13:12 | RAD REPORT ---
EXAM DESCRIPTION: RAD - Chest Single View - 12/06/2022 12:33 pm CLINICAL HISTORY: E-tube placement COMPARISON: Chest Single View dated 12/04/2022; Chest Single View dated 11/30/2022; Chest Single View dated 11/28/2022; Chest Single View dated 11/26/2022 FINDINGS: Lines: Endotracheal tube tip terminates just above the aortic arch in satisfactory positio n. Right subclavian approach PICC with tip overlying the SVC. Lungs: Severe bilateral airspace disease is not simply changed. Pleural: Small moderate left and small right pneumothorax. These are new from prior. Cardiac: The heart size is within normal limits. Mediastinum: Possible pneumomediastinum. Bones: No acute fractures. Other: Subcutaneous emphysema is present in the neck and left chest wall. IMPRESSION: 1. Interval development of bilateral pneumothoraces, small moderate on the left and smal l on the right. In addition, new subcutaneous emphysema is present. Question pneumomediastinum. 2. Endotracheal tube in satisfactory position. PICC in similar position. 3. Similar aeration lungs with widespread bilateral airspace disease. Communicated regarding pneumothoraces to Dr. Lynn by Dr. Valverde at 1305 on 12/06/22.
[2022-12-06] MEDS ORDERED: LIDOCAINE 1% MPF 5 ML VIAL ONE (13:52)
[2022-12-06] MEDS ORDERED: SUCCINYLCHOLINE 20 MG/ML (10 ML) IV ONE (15:02)
[2022-12-06] MEDS ORDERED: ROCURONIUM 50 MG/5 ML VIAL IV ONE (15:02)
--- NOTE | 2022-12-06 17:01 | RAD REPORT ---
EXAM DESCRIPTION: RAD - Chest Single View - 12/06/2022 4:52 pm CLINICAL HISTORY: pneumothorax, bilateral chest tube placement COMPARISON: Chest Single View dated 12/06/2022; Chest Single View dated 12/04/2022; Chest Single View dated 11/30/2022; Chest Single View dated 11/28/2022 FINDINGS: Interval placement of bilateral chest tubes. No residual left pneumothorax is identified. Small residual right pneumothorax. Endotracheal tube at the aortic arch. Subcutaneous emphysema again noted. PICC overlies the SVC. Widespread pulmonary opacities are unchanged. IMPRESSION: Interval placement of bilateral chest tubes. The left pneumothorax has resolved. Tiny re sidual right pneumothorax.
[2022-12-06] MEDS: AA 5%/D20W/ELECTROLYTES-TPN 2,000 ML IV SCH (17:11)
--- NOTE | 2022-12-06 17:33 | P.BOP ---
Preoperative diagnosis: bilateral pneumothorax, pneumonia Postoperative diagnosis: same Primary procedure: 1. Right Chest tube placement Secondary procedure: 2. Left Chest tube placement Estimated blood loss: 10cc Specimen: none Findings: as above Anesthesia: Local Complications: None Transferred to: ICU Condition: Critical
[2022-12-06] MEDS: TOPIRAMATE 100 MG TAB PO SCH (21:00)
[2022-12-06] MEDS: FENTANYL CITR 100 MCG/2 ML IV PRN (21:14)
--- NOTE | 2022-12-06 22:02 | OP ---
Date of Procedure: 12/06/2022 Surgeon: Grady Muñoz MD Preoperative Diagnosis: Bilateral COVID pneumonia with bilateral pneumothorax. Postoperative Diagnosis: Bilateral COVID pneumonia with bilateral pneumothorax. Procedure: Placement of right and left chest tubes. Anesthesia: Local. Complications: None. Chest tube is 32-Barbadian left and right side. Indications: This is the case of a 47-year-old patient with bilateral pneumothorax COVID pneumonia. I was asked for emergent chest tube placement. Please refer to the consult just dictated for the be nefits, alternatives, and risks explained to the family since the patient is intubated at this moment . We first went to the left side. A time-out was called. Left chest was prepped and draped in ster ile fashion. Lidocaine 1% plain was injected followed by incision of the skin around the area of the fifth intercostal space. We proceeded to make an incision in that area, dissect the area too, using a clamp. We proceeded to enter the chest cavity just above the ribs. A bradley of air was obtained an d a 32-Barbadian chest tube was placed going toward the apex. The chest tube was secured in place to th e chest wall with stitches and a gauze around the area and tape and is connected to Pleur-evac. No a ir leak. The patient tolerated the procedure well. Sponge counts and instrument counts correct. Th en, after that, we went to the opposite side, it is right side. Once again, we did a time-out, prepp ed and draped the right chest in the usual sterile fashion. A small incision was made around the are a surrounding the fifth intercostal space lateral axillary anterior line. We proceeded then to using a clamp, we proceeded to find the area just above the ribs and into the chest in that region. Bradley of air was obtained and the chest tube was placed in that area, 32-Barbadian directed towards the apex. The chest tube was secured in place with sutures then connected to a Pleur-Evac and machine. The pa tient tolerated the procedure well. The chest x-ray was ordered, shows that most of the pneumothorax had resolution. The patient tolerated the procedure well. The patient was left once again under th e care of the primary care doctor. REG/WINSOMEL Voice ID: [id number] Report ID: [id number]
[2022-12-06] MEDS: MUPIROCIN 2% OINT 22GM TUBE TOP SCH (22:30)
--- NOTE | 2022-12-06 22:32 | CON ---
Reason For Consultation: Stat consult for placement of a chest tube due to bilateral pneumothorax. History Of Present Illness: This is the case of a 47-year-old patient who came to us with COVID pneu moniae and deteriorated overnight, just transferred to the ICU and has to be intubated and when a sai st x-ray was done, noticed to have bilateral pneumothorax and a surgical consult was obtained for sunil cement of a chest tube. Patient right now is intubated, so much of the information was obtained from the chart and from the patient and family member. Review of Systems: Unable to be obtained. Physical Examination: General: Patient is awake, but not alert. She is intubated and sedated. Eyes: Pupils are equal and reactive. Neck: Supple. No JVD. Chest: Bilateral breath sounds. Abdomen: Soft and depressible. Extremities: Good capillary refill. Imaging: X-rays shows bilateral pneumothorax, left more than right. Assessment: This is a 47-year-old patient intubated due to COVID pneumonia with bilateral pneumothor ax. The family was fully explained the benefits, alternatives, and risks of emergent bilateral chest tube placement which include, but not limited to infection, bleeding, damage to adjacent structures, anesthesia complication, empyema, hemothorax, recurrent pneumothorax, [place], and even . They also understand this may not relieve symptoms. She might need more than one surgical intervention. They understood. Consent was signed. We proceeded to put a chest tube both sides using the same techniq ue. We first did evaluation and we believe the left side should be done first and then the right side since the largest pneumothorax. See procedure note. REG/SIXTO Voice ID: [id number] Report ID: [id number]
[2022-12-07] MEDS ORDERED: GLUCAGON 1 MG/VIAL IM PRN (00:09)
[2022-12-07] MEDS ORDERED: D50W 25 GM/50 ML SYRINGE IV PRN (00:09)
[2022-12-07] MEDS ORDERED: D10W 125 ML IV PRN (00:11)
[2022-12-07] MEDS: propofoL 500 MG/50 ML ML IV PRN ×9 (02:52→22:01)
[2022-12-07] MEDS: LORazepam 2 MG/ML VIAL IV PRN ×4 (02:52→23:35)
[2022-12-07] MEDS: CISATRACURIUM INJECTION 2 MG/ML (10 ML Vial) IV PRN ×2 (03:45→06:02)
[2022-12-07] MEDS: FENTANYL CITR 100 MCG/2 ML IV PRN ×2 (04:15→23:26)
[2022-12-07] MEDS: HALOPERIDOL LACT 5 MG/ML INJ IV PRN ×2 (04:45→23:56)
[2022-12-07] MEDS ORDERED: MIDAZOLAM HCL 2 MG/2 ML INJ IV ONE (05:06)
[2022-12-07] MEDS ORDERED: CISATRACURIUM INJECTION 2 MG/ML (10 ML Vial) IV ONE (05:06)
[2022-12-07] MEDS ORDERED: MIDAZOLAM HCL 2 MG/2 ML INJ ONE (05:15)
[2022-12-07] MEDS: INSULIN -REGULAR HUMAN 50 UNIT/0.5 ML ML SQ SCH ×3 (05:17→18:13)
[2022-12-07] MEDS ORDERED: HYDROMORPHONE HCL 2 MG/ML inj IV ONE (05:52)
[2022-12-07] MEDS: GUAIFENESIN 600 MG SA TAB PO SCH ×2 (07:25→19:37)
[2022-12-07] MEDS: ENSURE CLEAR 200 ML CAN PO SCH (07:25)
[2022-12-07] MEDS: LACTOSE-REDUCED FOOD 330 ML LIQUID PO SCH ×2 (07:26→19:37)
[2022-12-07] MEDS: PANTOPRAZOLE 40 MG INJ IVP SCH ×2 (07:29→19:39)
[2022-12-07] MEDS: dexAMETHasone 10 MG/ML VIAL IV SCH (07:29)
[2022-12-07] MEDS: ENOXAPARIN 100 MG/ML SYR SQ SCH (07:29)
[2022-12-07] MEDS: FUROSEMIDE 20 MG/ 2ML VIAL IV SCH (07:30)
[2022-12-07 08:04] LABS: Albumin 1.9 g/dL (3.4-5.0); Bilirubin Total 0.5 mg/dL (0.2-1.0); Protein, Total 5.9 g/dL (6.4-8.2)
[2022-12-07 08:08] LABS: Potassium 3.8 mmol/L (3.5-5.1)
[2022-12-07 08:09] LABS: Magnesium 2.2 mg/dL (1.6-2.4)
[2022-12-07] MEDS ORDERED: KCL 20 MEQ/100 mL IVPB 20 MEQ/100 ML BAG IV SCH (09:00)
--- NOTE | 2022-12-07 09:08 | RAD REPORT ---
EXAM DESCRIPTION: RAD - Chest Single View - 12/07/2022 5:56 am CLINICAL HISTORY: Respiratory failure Chest pain. COMPARISON: Chest Single View dated 12/06/2022; Chest Single View dated 12/06/2022; Chest Single View dated 12/04/2022; Chest Single View dated 11/30/2022 FINDINGS: Portable technique limits examination quality. Left-sided chest tube is in place. There is a small apical pneumothorax on the left suspected measuri ng left 5% of lung volume approximately. This was not clearly seen on the comparative study. Right PI CC line has tip in the SVC. Endotracheal tube has its tip above the yamel. Moderate subcutaneous emp hysema bilaterally. Heart size is mildly prominent.
[2022-12-07] MEDS: MUPIROCIN 2% OINT 22GM TUBE TOP SCH ×2 (09:39→19:37)
[2022-12-07] MEDS ORDERED: VITAL HP 1,000 ML BOT RTH SCH (11:00)
--- NOTE | 2022-12-07 11:52 | P.PN ---
Subjective Date of Service: 12/07/22 Chief Complaint: ARDS secondary to COVID-pneumonia bilateral pneumothorax Patient was intubated yesterday and had bilateral pneumothorax had bilateral chest tube patient does become very agitated also hypotensive Review of Systems is unable to be obtained Physical Examination - Vital Signs Temperature: 98.1 F Blood Pressure: 87/66 Pulse: 95 Respirations: 23 Pulse Ox (%): 96 - Physical Exam General: Unresponsive Respiratory: Clear to auscultation bilaterally, Diminished Cardiovascular: No edema, Regular rate/rhythm, Normal S1 S2 Assessment And Plan - Current Problems (Diagnosis) (1) Respiratory failure Current Visit: Yes Status: Acute Plan: Respiratory failure 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
[2022-12-07 12:07] LABS: Arterial Blood Carboxyhemoglob 1.1 % (0-1.5); Blood Gas Oxyhemoglobin 92.6 % (94-97); Blood O2 Saturation 95.9 % (92-98.5)
--- NOTE | 2022-12-07 12:29 | P.PN ---
Subjective Date of Service: 12/07/22 Chief Complaint: ARDS secondary to COVID-pneumonia bilateral pneumothorax Patient intubated yesterday and noted to have bilateral pneumothorax, small to moderate on the left and small on the right. Bilateral chest tubes placed by surgery Dr. Muñoz. Patient is currently sedated and on mechanical ventilation. She is needing multiple medications for sedation. She is intermittently hypotensive. Currently on 100% FiO2. Physical Examination - Vital Signs Temperature: 98.1 F Blood Pressure: 87/66 Pulse: 95 Respirations: 23 Pulse Ox (%): 96 Assessment And Plan - Plan Physical Exam: Gen: Intubated, sedated and on mechanical ventilation CV: Tachycardia, regular rhythm, no edema Pulm: Tachypnea is better on the vent, bilateral crackles, subcutaneous emphysema bilateral shoulder and neck area improved compared to yesterday. Abd: soft, non-tender, non-distended Neuro: Sedated. No focal motor deficit. Ext: No cyanosis. vitals reviewed Problem List Acute hypoxic respiratory failure secondary to COVID-19 pneumonia ARDS secondary to COVID-pneumonia possible secondary bacterial infection Seizure disorder Crohn's, lupus, scleroderma chronic pain Acute urinary retention. Bilateral pneumothorax. Acute hypoxic respiratory failure secondary to COVID-19 pneumonia/bilateral pneumothorax Initially positive for COVID on 11/01, has been on antivirals. Currently on mechanical ventilator. Continue dexamethasone. Will cover for secondary bacterial infection with cefepime and vancomycin. Continue ICU care. Patient currently sedated with propofol, muscle relaxant, hydromorphone and Versed. Continue TPN. High risk for NG tube insertion given multiple GI surgeries, gastric bypass, scleroderma, nasal cavity deformities. De Leon catheter maintain for acute urinary retention Pulmonary is following. General surgery is following and managing bilateral pneumothorax. Left pneumothorax resolved after chest tube placement. Seizure disorder Continue Topamax. No seizures. Crohn's, lupus, scleroderma Patient reports multiple autoimmune disorders, takes methotrexate as well as other medications. Reported history of multiple blood transfusions in the past. Methotrexate has been on hold. DVT PPX: Lovenox. Code status:Full Prognosis guarded.
[2022-12-07] MEDS ORDERED: VANCOMYCIN 1 GM in NA CHLORIDE 0.9% 250 ML IVPB SCH (13:00)
[2022-12-07] MEDS: VANCOMYCIN 1.5 GM in NA CHLORIDE 0.9% 500 ML IVPB SCH (13:54)
[2022-12-07] MEDS ORDERED: Levofloxacin 750mg IV 750 MG/150 ML BAG IV SCH (14:00)
[2022-12-07] MEDS ORDERED: Levofloxacin500mg IV 500 MG/100 ML BAG IV SCH (14:00)
[2022-12-07] MEDS ORDERED: ALBUTEROL 2.5 MG/3 ML NEB SOL NEB PRN (14:15)
[2022-12-07] MEDS: AA 5%/D20W/ELECTROLYTES-TPN 2,000 ML, Lipids 20% 250 ML with MULTIVITAMINS INJ 10 ML IV SCH ×3 (18:10)
--- NOTE | 2022-12-07 19:07 | P.PN ---
Date of Service: 12/08/22 Subjective: no acute events overnight remains on 100% FIO2; dropsa when sedation wears off ROS: A complete review of systems was unable to be performed - patient intubated/sedated Physical Exam: Gen: intubated / sedated HEENT: normal conjunctiva, sclera anicteric CV: tachycardia, trace b/l lower extremity edema Pulm: on mechanical ventilation, b/l chest tubes in place; air leak noted on left Abd: soft, non-distended Neuro: sedated, on vent dixon in place vitals reviewed Problem List Acute hypoxic respiratory failure secondary to COVID-19 pneumonia ARDS secondary to COVID-pneumonia possible secondary bacterial infection Seizure disorder Crohn's, lupus, scleroderma chronic pain Acute urinary retention. Bilateral pneumothorax. Acute hypoxic respiratory failure secondary to COVID-19 pneumonia/bilateral pneumothorax Initially positive for COVID on 11/01, s/p antivirals. Currently on mechanical ventilator - intubated 12/06 Continue dexamethasone. Empirically covered for secondary bacterial infection with cefepime and vancomycin. Currently on levaquin/vanc per pulm Continue ICU care. Continue TPN. High risk for NG tube insertion given multiple GI surgeries, gastric bypass, scleroderma, nasal cavity deformities. Dixon catheter maintain for acute urinary retention and monitor I/Os Pulmonary is following. General surgery is following and managing bilateral pneumothorax. air leak noted on left Seizure disorder Continue Topamax. No seizures. Crohn's, lupus, scleroderma Patient reports multiple autoimmune disorders, takes methotrexate as well as other medications. Reported history of multiple blood transfusions in the past. Methotrexate has been on hold. DVT PPX: Lovenox. Code: full Prognosis guarded.
[2022-12-07] MEDS: ENOXAPARIN 80 MG/0.8 ML SQ SCH (19:37)
[2022-12-07] MEDS ORDERED: CEFEPIME 1 GM in NA CHLORIDE 0.9% 100 ML IV SCH (21:00)
[2022-12-08] MEDS: VANCOMYCIN 1.5 GM in NA CHLORIDE 0.9% 500 ML IVPB SCH (00:15)
[2022-12-08] MEDS: INSULIN -REGULAR HUMAN 50 UNIT/0.5 ML ML SQ SCH ×4 (00:16→17:51)
[2022-12-08] MEDS: propofoL 500 MG/50 ML ML IV PRN ×10 (00:48→22:39)
[2022-12-08] MEDS: FENTANYL CITR 100 MCG/2 ML IV PRN (05:19)
[2022-12-08] MEDS: LORazepam 2 MG/ML VIAL IV PRN ×3 (05:20→20:30)
[2022-12-08 05:27] LABS: Absolute Lymphocytes (CBC) 1.2 K/uL (0.7-4.9); Hematocrit 34.9 % (36.0-45.0); Lymphocytes % 9.3 % (15.3-44.8); MCV 87.7 fL (80-100); MPV 8.6 fL (7.6-11.3); RBC Red Blood Cell Count 3.98 M/uL (3.86-4.86)
[2022-12-08 05:47] LABS: Albumin 1.8 g/dL (3.4-5.0); Bilirubin Total 0.4 mg/dL (0.2-1.0); Potassium 3.7 mmol/L (3.5-5.1); Protein, Total 5.2 g/dL (6.4-8.2)
[2022-12-08] MEDS: HALOPERIDOL LACT 5 MG/ML INJ IV PRN (05:55)
--- NOTE | 2022-12-08 07:08 | RAD REPORT ---
EXAM DESCRIPTION: RAD - Chest Single View - 12/08/2022 6:09 am CLINICAL HISTORY: Respiratory failure COMPARISON: Portable 12/07/2022 TECHNIQUE: AP portable chest image was obtained 12/08/2022 6:09 am . FINDINGS: Endotracheal tube remains in place with the tip at the top of the aortic arch. This is 4 c m above the yamel, adequately positioned. Left-sided chest tube is unchanged in position. For likely remains a trace amount of pneumothorax at the left apex similar to the prior day examination. Right-side PICC line is unchanged. Interstitial and alveolar opacities remain in the lung jha. No progressive lung parenchymal proces s. Heart and vasculature are normal. Right-sided subcutaneous emphysema not clearly different. Left n bozena base and supraclavicular is subcutaneous emphysema appears fractionally improved. IMPRESSION: Stable positioning of a left-sided chest tube with trace pneumothorax remaining at the l eft apex. ET tube remains in place adequately positioned 4 cm above the yamel. Interstitial and alveolar opacities are stable.
[2022-12-08] MEDS: LACTOSE-REDUCED FOOD 330 ML LIQUID PO SCH (07:16)
[2022-12-08] MEDS: GUAIFENESIN 600 MG SA TAB PO SCH ×2 (07:17→20:06)
[2022-12-08] MEDS: MUPIROCIN 2% OINT 22GM TUBE TOP SCH ×2 (07:57→20:30)
[2022-12-08] MEDS: FUROSEMIDE 20 MG/ 2ML VIAL IV SCH (07:57)
[2022-12-08] MEDS: dexAMETHasone 10 MG/ML VIAL IV SCH (07:58)
[2022-12-08] MEDS: ENOXAPARIN 80 MG/0.8 ML SQ SCH ×2 (07:58→20:29)
[2022-12-08] MEDS: PANTOPRAZOLE 40 MG INJ IVP SCH ×2 (07:59→20:30)
[2022-12-08] MEDS ORDERED: HYDROMORPHONE HCL 2 MG/ML inj IV PRN (08:36)
[2022-12-08] MEDS: dexAMETHasone 4 MG/ML VIAL IV SCH (08:43)
[2022-12-08] MEDS ORDERED: KCL 20 MEQ/100 mL IVPB 20 MEQ/100 ML BAG IV SCH (09:00)
[2022-12-08] MEDS: HYDROMORPHONE HCL 2 MG/ML inj IV PRN ×2 (09:06→17:51)
--- NOTE | 2022-12-08 11:57 | P.PN ---
Subjective Date of Service: 12/08/22 Chief Complaint: ARDS secondary to COVID-pneumonia bilateral pneumothorax No change in patient's condition she is on maximum respiratory support right now very tachypneic agitated chest tubes no air leak hemodynamically stable Review of Systems is unable to be obtained Physical Examination - Vital Signs Temperature: 96.9 F Blood Pressure: 101/69 Pulse: 100 Respirations: 20 Pulse Ox (%): 96 - Physical Exam General: Unresponsive Respiratory: Clear to auscultation bilaterally, Diminished, Crackles/rales Cardiovascular: No edema, Regular rate/rhythm Assessment And Plan - Current Problems (Diagnosis) (1) Respiratory failure Current Visit: Yes Status: Acute Plan: Respiratory failure secondary to ARDS maximum oxygen treatment on a PEEP of 9 lateral chest tube act agitation labs reviewed white count is mildly elevated vital signs stable Daily procalcitonin avoid antibiotics she did have some documented evidence of sepsis prognosis poor Qualifiers: Chronicity: acute
[2022-12-08] MEDS ORDERED: ALBUTEROL 2.5 MG/3 ML NEB SOL NEB PRN (14:00)
[2022-12-08] MEDS: AA 5%/D20W/ELECTROLYTES-TPN 2,000 ML IV SCH (16:58)
[2022-12-09] MEDS: INSULIN -REGULAR HUMAN 50 UNIT/0.5 ML ML SQ SCH ×4 (00:25→16:42)
[2022-12-09] MEDS: propofoL 500 MG/50 ML ML IV PRN ×9 (01:41→22:00)
[2022-12-09] MEDS: HYDROMORPHONE HCL 2 MG/ML inj IV PRN ×4 (02:33→20:00)
[2022-12-09 05:07] LABS: Absolute Lymphocytes (CBC) 0.9 K/uL (0.7-4.9); Lymphocytes % 7.4 % (15.3-44.8); MPV 8.7 fL (7.6-11.3); RBC Red Blood Cell Count 3.63 M/uL (3.86-4.86)
[2022-12-09 05:16] LABS: Albumin 1.7 g/dL (3.4-5.0); Bilirubin Total 0.3 mg/dL (0.2-1.0); Potassium 3.8 mmol/L (3.5-5.1); Protein, Total 5.3 g/dL (6.4-8.2)
[2022-12-09 05:28] LABS: Blood Morphology Comment NOT SEEN (NOT SEEN); Platelet Estimate ADEQ
[2022-12-09] MEDS ORDERED: KCL 20 MEQ/100 mL IVPB 20 MEQ/100 ML BAG IV SCH (06:00)
--- NOTE | 2022-12-09 06:30 | P.PN ---
Date of Service: 12/09/22 Subjective: worsening subcutaneous emphysema on exam tachypneic requiring increased sedation, increased PEEP ROS: unable to be performed - patient intubated/sedated Physical Exam: Gen: intubated / sedated HEENT: normal conjunctiva, sclera anicteric; subcutaneous emphysema bilateral upper chest and into neck CV: tachycardia, trace b/l lower extremity edema Pulm: on mechanical ventilation, b/l chest tubes in place Abd: soft, non-distended Neuro: sedated, on vent dixon in place vitals reviewed Problem List Acute hypoxic respiratory failure secondary to COVID-19 pneumonia ARDS secondary to COVID-pneumonia possible secondary bacterial infection Seizure disorder Crohn's, lupus, scleroderma chronic pain Acute urinary retention. Bilateral pneumothorax hyperglycemia, steroid induced Acute hypoxic respiratory failure secondary to COVID-19 pneumonia/bilateral pneumothorax Initially positive for COVID on 11/01, s/p antivirals. Currently on mechanical ventilator - intubated 12/06 Continue dexamethasone. Empirically covered for secondary bacterial infection with cefepime and vancomycin. antibiotics discontinued per pulm - last received 12/08 Continue ICU care. Continue TPN. High risk for NG tube insertion given multiple GI surgeries, gastric bypass, scleroderma, nasal cavity deformities. Dixon catheter maintained for acute urinary retention and monitor I/Os Pulmonary is following. General surgery is following and managing bilateral pneumothorax. more tachypneic, seems to be worsening despite maximum treatment hyperglycemia, steroid induced continue sliding scale, increased to moderate add semglee 10u daily 12/09 Seizure disorder Continue Topamax. No seizures. Crohn's, lupus, scleroderma Patient reports multiple autoimmune disorders, takes methotrexate as well as other medications. Reported history of multiple blood transfusions in the past. Methotrexate has been on hold. DVT PPX: Lovenox. Code: full Prognosis poor
--- NOTE | 2022-12-09 07:24 | RAD REPORT ---
EXAM DESCRIPTION: RAD - Chest Single View - 12/09/2022 6:06 am CLINICAL HISTORY: Respiratory failure COMPARISON: Portable 12/08/2022 TECHNIQUE: AP portable chest image was obtained 12/09/2022 6:06 am . FINDINGS: Endotracheal tube remains at the top of the aortic arch 4 cm above the yamel, well positi oned. Left-sided chest tube positioning is stable. No new or enlarging pneumothorax identified. Lung parenchymal opacification stable as well. Subcutaneous emphysema remains stable. Heart size normal range. No new or enlarging pleural fluid collection. IMPRESSION: Stable chest film as detailed.
[2022-12-09] MEDS: FUROSEMIDE 20 MG/ 2ML VIAL IV SCH (08:21)
[2022-12-09] MEDS: ENOXAPARIN 80 MG/0.8 ML SQ SCH ×2 (08:22→21:26)
[2022-12-09] MEDS: PANTOPRAZOLE 40 MG INJ IVP SCH ×2 (08:22→21:26)
[2022-12-09] MEDS: INSULIN GLARGINE 100 UNIT/ML SQ SCH (08:22)
[2022-12-09] MEDS: MUPIROCIN 2% OINT 22GM TUBE TOP SCH ×2 (08:23→21:00)
[2022-12-09] MEDS: GUAIFENESIN 600 MG SA TAB PO SCH ×2 (08:28→20:06)
[2022-12-09] MEDS: dexAMETHasone 4 MG/ML VIAL IV SCH (08:28)
[2022-12-09] MEDS: LORazepam 2 MG/ML VIAL IV PRN ×3 (13:13→20:00)
[2022-12-09] MEDS: HALOPERIDOL LACT 5 MG/ML INJ IV PRN (16:42)
[2022-12-09] MEDS: AA 5%/D20W/ELECTROLYTES-TPN 2,000 ML, Lipids 20% 250 ML with MULTIVITAMINS INJ 10 ML IV SCH ×3 (16:43)
--- NOTE | 2022-12-09 16:53 | P.PN ---
Subjective Date of Service: 12/09/22 Chief Complaint: ARDS secondary to COVID-pneumonia bilateral pneumothorax No change in patient's condition she is on maximum respiratory support right now very tachypneic agitated chest tubes no air leak hemodynamically stable Physical Examination - Vital Signs Temperature: 97.6 F Blood Pressure: 111/77 Pulse: 103 Respirations: 23 Pulse Ox (%): 94 Assessment And Plan - Current Problems (Diagnosis) (1) Respiratory failure Current Visit: Yes Status: Acute Plan: ARDS PSOt COVID pulmonary fibrosis. No air leak. CXRY rev. ET satisfactory/ Increase PEEP/ DC steroids/ LAbs reviewed/ Meds rev/ Prog poor/ BP stable PEEP inc to 15 Qualifiers: Chronicity: acute
[2022-12-10] MEDS: HYDROMORPHONE HCL 2 MG/ML inj IV PRN ×4 (01:11→20:00)
[2022-12-10] MEDS: propofoL 500 MG/50 ML ML IV PRN ×6 (02:18→12:30)
[2022-12-10 05:19] LABS: Absolute Lymphocytes (CBC) 0.9 K/uL (0.7-4.9); Lymphocytes % 6.4 % (15.3-44.8); MCV 88.5 fL (80-100); MPV 8.7 fL (7.6-11.3); RBC Red Blood Cell Count 4.07 M/uL (3.86-4.86)
[2022-12-10 06:09] LABS: Albumin 1.6 g/dL (3.4-5.0); Bilirubin Total 0.5 mg/dL (0.2-1.0); Potassium 3.5 mmol/L (3.5-5.1); Protein, Total 5.5 g/dL (6.4-8.2)
[2022-12-10] MEDS: INSULIN -REGULAR HUMAN 50 UNIT/0.5 ML ML SQ SCH ×4 (06:24→17:34)
[2022-12-10] MEDS ORDERED: KCL 20 MEQ/100 mL IVPB 20 MEQ/100 ML BAG IV SCH (07:00)
--- NOTE | 2022-12-10 07:38 | RAD REPORT ---
EXAM DESCRIPTION: RAD - Chest Single View - 12/10/2022 6:16 am CLINICAL HISTORY: Respiratory failure COMPARISON: Portable 12/09/2022 TECHNIQUE: AP portable chest image was obtained 12/10/2022 6:16 am . FINDINGS: Endotracheal tube tip is above the aortic arch approximately 5 cm from the yamel. Left-si ded chest tube positioning has not changed. A left-sided pneumothorax is not identifiable. Anterior p neumothorax can be present and occult on portable imaging. Bilateral lung parenchymal opacification still present and not grossly different from prior day imagi ng. Cardiomediastinal silhouette is stable. No enlarging pleural fluid collections seen. Very extensive subcutaneous emphysema is present in the bilateral chest and neck. This is significant ly progressive from prior day imaging. No extensive or significant pneumomediastinum identifiable. IMPRESSION: Significantly progressive subcutaneous emphysema since prior day imaging. ET tube positioning is stable, 5 cm above the yamel. No change in positioning of the chest tube. No pneumothorax is identifiable. Extensive lung parenchymal opacification similar to prior day imaging.
[2022-12-10] MEDS: INSULIN GLARGINE 100 UNIT/ML SQ SCH (07:59)
[2022-12-10] MEDS: PANTOPRAZOLE 40 MG INJ IVP SCH ×2 (07:59→21:13)
[2022-12-10] MEDS: ENOXAPARIN 80 MG/0.8 ML SQ SCH ×2 (07:59→21:12)
[2022-12-10] MEDS: GUAIFENESIN 600 MG SA TAB PO SCH ×2 (08:01→21:00)
[2022-12-10] MEDS: MUPIROCIN 2% OINT 22GM TUBE TOP SCH ×2 (08:01→21:12)
[2022-12-10] MEDS: FUROSEMIDE 20 MG/ 2ML VIAL IV SCH (09:00)
[2022-12-10] MEDS: HALOPERIDOL LACT 5 MG/ML INJ IV PRN (11:55)
[2022-12-10] MEDS: LORazepam 2 MG/ML VIAL IV PRN ×2 (11:56→21:35)
--- NOTE | 2022-12-10 13:22 | P.PN ---
Subjective Date of Service: 12/10/22 Chief Complaint: ARDS secondary to COVID-pneumonia bilateral pneumothorax Patient is not doing well she's developed considerable subcutaneous emphysema still recording hundred percent oxygen currently on a people 15 there's no air leak in her chest tubes hemodynamically stable Review of Systems is unable to be obtained Physical Examination - Vital Signs Temperature: 98.6 F Blood Pressure: 101/78 Pulse: 118 Respirations: 42 Pulse Ox (%): 93 - Physical Exam General: Unresponsive Respiratory: Other (Patient has significant the subcutaneous edema over the entire upper chest and upper arms) Cardiovascular: No edema Assessment And Plan - Current Problems (Diagnosis) (1) Respiratory failure Current Visit: Yes Status: Acute Plan: Patient not doing wellDeveloped significant subcutaneous emphysema currently is on a PEEP of 100% oxygen chest x-ray no change endotracheal tube satisfactory chest x-ray reviewed. No air leak in her chest tubesLabs reviewed I have reduced the PEEP to 10 may help with thesubcutaneous emphysema. Dr. Saxena to discuss with family members regarding DNR and withdrawal of care Qualifiers: Chronicity: acute
[2022-12-10] MEDS: propofoL 1,000 MG/100 ML VIAL IV PRN ×2 (15:23→19:51)
[2022-12-10] MEDS: AA 5%/D20W/ELECTROLYTES-TPN 2,000 ML IV SCH (17:26)
--- NOTE | 2022-12-10 20:34 | P.PN ---
Date of Service: 12/10/22 Subjective: worsening subcutaneous emphysema on exam tachypneic, tachycardic remains on max vent support up trending LFTs ROS: unable to be performed - patient intubated/sedated Physical Exam: Gen: intubated / sedated HEENT: normal conjunctiva, sclera anicteric; subcutaneous emphysema bilateral upper chest, b/l arms down to wrists, neck CV: tachycardia, trace b/l lower extremity edema Pulm: on mechanical ventilation, b/l chest tubes in place to suction, no air leak seen Abd: soft, non-distended Neuro: sedated, on vent dixon in place vitals reviewed Problem List Acute hypoxic respiratory failure secondary to COVID-19 pneumonia ARDS secondary to COVID-pneumonia possible secondary bacterial infection Seizure disorder Crohn's, lupus, scleroderma chronic pain Acute urinary retention. Bilateral pneumothorax hyperglycemia, steroid induced Acute hypoxic respiratory failure secondary to COVID-19 pneumonia/bilateral pneumothorax Initially positive for COVID on 11/01, s/p antivirals. Currently on mechanical ventilator - intubated 12/06 Empirically covered for secondary bacterial infection with cefepime and vancomycin. antibiotics discontinued per pulm - last received 12/08 Continue ICU care. Continue TPN. High risk for NG tube insertion given multiple GI surgeries, gastric bypass, scleroderma, nasal cavity deformities. Dixon catheter maintained for acute urinary retention and monitor I/Os Pulmonary is following. General surgery is following and managing bilateral pneumothorax. more tachypneic, seems to be worsening despite maximum treatment subcutaneous emphysema spread to b/l arms hyperglycemia, steroid induced continue sliding scale, increased to moderate add semglee 10u daily 12/09 Seizure disorder Continue Topamax. No seizures. Crohn's, lupus, scleroderma Patient reported multiple autoimmune disorders, takes methotrexate as well as other medications. Reported history of multiple blood transfusions in the past. Methotrexate has been on hold. VTE: Lovenox Code: full Prognosis poor, updated patient's mother to continue full code for now
[2022-12-10 23:34] VITALS: O2SAT 98
[2022-12-11] MEDS: propofoL 1,000 MG/100 ML VIAL IV PRN ×4 (00:53→13:41)
[2022-12-11] MEDS: HYDROMORPHONE HCL 2 MG/ML inj IV PRN ×3 (01:30→12:30)
[2022-12-11] MEDS: LORazepam 2 MG/ML VIAL IV PRN ×2 (03:08→09:03)
[2022-12-11] MEDS: HALOPERIDOL LACT 5 MG/ML INJ IV PRN (04:30)
[2022-12-11 05:14] LABS: Absolute Lymphocytes (CBC) 0.9 K/uL (0.7-4.9); Hematocrit 34.5 % (36.0-45.0); Lymphocytes % 6.5 % (15.3-44.8); MCV 88.7 fL (80-100); MPV 8.3 fL (7.6-11.3); RBC Red Blood Cell Count 3.89 M/uL (3.86-4.86)
[2022-12-11 05:21] VITALS: BMI 29.7
[2022-12-11 05:36] LABS: Albumin 1.5 g/dL (3.4-5.0); Bilirubin Total 0.4 mg/dL (0.2-1.0); Magnesium 2.1 mg/dL (1.6-2.4); Protein, Total 5.4 g/dL (6.4-8.2)
[2022-12-11] MEDS: INSULIN -REGULAR HUMAN 50 UNIT/0.5 ML ML SQ SCH ×3 (06:30→13:22)
--- NOTE | 2022-12-11 08:43 | RAD REPORT ---
EXAM DESCRIPTION: RAD - Chest Single View - 12/11/2022 6:38 am CLINICAL HISTORY: Respiratory failure Chest pain. COMPARISON: Chest Single View dated 12/10/2022; Chest Single View dated 12/09/2022; Chest Single View [place] 12/08/2022; Chest Single View dated 12/07/2022 FINDINGS: Portable technique limits examination quality. Extensive bilateral pulmonary opacities are present, suggesting ARDS. Left-sided chest tube is in sunil ce. No measurable left-sided pneumothorax. Right PICC line is stable. Endotracheal tube is at the lev el the superior aortic arch. There is extensive subcutaneous emphysema bilaterally is unchanged.
[2022-12-11] MEDS: GUAIFENESIN 600 MG SA TAB PO SCH (09:00)
[2022-12-11] MEDS: FUROSEMIDE 20 MG/ 2ML VIAL IV SCH (09:01)
[2022-12-11] MEDS: MUPIROCIN 2% OINT 22GM TUBE TOP SCH (09:01)
[2022-12-11] MEDS: ENOXAPARIN 80 MG/0.8 ML SQ SCH (09:02)
[2022-12-11] MEDS: PANTOPRAZOLE 40 MG INJ IVP SCH (09:02)
[2022-12-11] MEDS: INSULIN GLARGINE 100 UNIT/ML SQ SCH (09:02)
[2022-12-11] MEDS ORDERED: NA CHLORIDE 0.9% 500 ML IV ONE (10:13)
--- NOTE | 2022-12-11 10:54 | RAD REPORT ---
EXAM DESCRIPTION: RAD - Chest Single View - 12/11/2022 9:54 am CLINICAL HISTORY: Sub Q emphysema decompression Chest pain. COMPARISON: Chest Single View dated 12/11/2022; Chest Single View dated 12/10/2022; Chest Single View [place] 12/09/2022; Chest Single View dated 12/08/2022 FINDINGS: Portable technique limits examination quality. Left-sided chest tube is in place. No measurable pneumothorax. Endotracheal tube tip is at the level of the clavicular heads. Right-sided venous catheter its tip in the SVC. Bilateral pulmonary opacitie s are unchanged.There has been a reduction in the degree of subcutaneous emphysema. IMPRESSION: Mild reduction in the degree of subcutaneous emphysema.
[2022-12-11 13:16] VITALS: TEMP 97.8
[2022-12-11 18:11] VITALS: BP 140/80
--- NOTE | 2022-12-11 19:32 | P.DS ---
Admission Date: 11/26/22 Discharge Date: 12/11/22 Disposition: Reason for Admission: ARDS secondary to COVID-pneumonia bilateral pneumothorax Consultations: Pulmonology - Dr. Lynn General Surgery - Dr. Muñoz Brief History of Present Illness: 47-year-old female with history of Crohn's, lupus, scleroderma, seizure disorder presents emergency department for dyspnea, respiratory failure. She reports testing positive for COVID on 11/01/2022, since then she has been on antivirals, multiple rounds of antibiotics most recently doxycycline 7-day course which she finished 3 days ago. Upon arrival to the ED patient saturations were 67% on room air, she was placed on BiPAP which has been tolerating well currently at 45% FiO2 saturating 91 to 92%. Her labs were significant for mild hypokalemia with a potassium of 3.0 hemoglobin 11.5 hematocrit 35.2 chest x-ray showed extensive bilateral pulmonary opacities present likely represent pneumonia or pulmonary edema. The heart is normal size no displaced fractures. CT PE protocol was performed which is negative for pulmonary embolism but did show extensive bilateral alveolar lung opacities near percent pulmonary edema or pneumonia in the right clinical setting. She was given IV steroids, antibiotics in ED. ED provider wishes to admit for further evaluation and management of COVID-19 pneumonia, acute hypoxic respiratory failure. Hospital Course: Problem List Acute hypoxic respiratory failure secondary to COVID-19 pneumonia, complicated by ARDS ARDS secondary to COVID-pneumonia possible secondary bacterial infection Seizure disorder Crohn's, lupus, scleroderma chronic pain Acute urinary retention. Bilateral pneumothorax hyperglycemia, steroid induced Pulmonology was consulted. Patient received treatment for COVID-19 pneumonia. She received empiric antibiotics to cover for possible bacterial pneumonia. Cultures remained negative. Despite treatment, patient continued to worsen eventully requiring intubation. Her clinical course was complicated by bilateral pneumothoraces which required bilateral chest tube placement. She continued on maximal treatment, but continued to worsen, developing extensive subcutaneous emphysema. Given her ongoing clinical deterioration despite treatment, she was made DNR and patient was made comfortable and passed with comfort measures in place,, in line with the patient's wishes. Time of : 1824 Vital Signs/Physical Exam: Temp Pulse Resp BP Pulse Ox 97.8 F 125 H 45 H 140/80 75 L 12/11/22 08:00 12/11/22 18:00 12/11/22 18:00 12/11/22 18:00 12/11/22 18:00 General: Other () Laboratory Data at Discharge: WBC 14.60 K/uL (4.3-10.9) H 12/11/22 04:35 Hgb 10.8 g/dL (12.0-15.0) L 12/11/22 04:35 Hct 34.5 % (36.0-45.0) L 12/11/22 04:35 Plt Count 283 K/uL (152-406) 12/11/22 04:35 PT 14.3 SECONDS (9.5-12.5) H 11/26/22 22:10 INR 1.30 11/26/22 22:10 APTT 30.1 SECONDS (24.3-36.9) 11/26/22 22:10 Sodium 138 mmol/L (136-145) 12/11/22 04:35 Potassium 4.0 mmol/L (3.5-5.1) D 12/11/22 04:35 BUN 23 mg/dL (7-18) H 12/11/22 04:35 Creatinine 0.32 mg/dL (0.55-1.02) L 12/11/22 04:35 Glucose 194 mg/dL (74-106) H 12/11/22 04:35 Magnesium 2.1 mg/dL (1.6-2.4) 12/11/22 04:35 Total Bilirubin 0.4 mg/dL (0.2-1.0) 12/11/22 04:35 AST 32 U/L (15-37) 12/11/22 04:35 ALT 65 U/L (13-56) H 12/11/22 04:35 Alkaline Phosphatase 210 U/L (45-117) H 12/11/22 04:35 Home Medications: Apixaban [Eliquis *] 2.5 mg PO BID 12/03/22 Benzonatate [Tessalon Perle*] 100 mg PO TID PRN cap 12/03/22 Ensure Clear 237 ml PO TIDWM can 12/03/22 Hydrocodone 10/APAP 325 [[place] 10/325*] 1 tab PO Q6H PRN tab 12/03/22 Lactose-Reduced Food [Ensure Max Protein] 330 ml PO BID can 12/03/22 Pantoprazole [Protonix Tab*] 40 mg PO BIDAC tab 12/03/22 Topiramate [Topamax*] 200 mg PO BEDTIME tab 12/03/22 Followup: NONE,NONE [Primary Care Provider] - Time spent managing pt's care (in minutes): 70
== END 2022-12-11 18:25 | disposition expired | DRG 207 ==
LOC: ER 20:35 → ERHOLD 22:52 → 2ND 11-27 13:11 → 3RD-ICU 12-04 13:00
PROVIDERS: ADMIT Hospitalist; ATTEND Hospitalist
PROC: 0T9B70Z Drainage of Bladder with Drainage Device, Via Natural or Artificial Opening (ICD-10-PCS; 2022-11-28)
PROC: 5A09557 Assistance with Respiratory Ventilation, Greater than 96 Consecutive Hours, Continuous Positive Airway Pressure (ICD-10-PCS; 2022-12-01)
PROC: 02HV33Z Insertion of Infusion Device into Superior Vena Cava, Percutaneous Approach (ICD-10-PCS; 2022-12-04)
PROC: 5A1955Z Respiratory Ventilation, Greater than 96 Consecutive Hours (ICD-10-PCS; principal; 2022-12-06)
PROC: 0W9B30Z Drainage of Left Pleural Cavity with Drainage Device, Percutaneous Approach (ICD-10-PCS; 2022-12-06)
PROC: 0W9930Z Drainage of Right Pleural Cavity with Drainage Device, Percutaneous Approach (ICD-10-PCS; 2022-12-06)
PROC: 0BH17EZ Insertion of Endotracheal Airway into Trachea, Via Natural or Artificial Opening (ICD-10-PCS; 2022-12-06)
DX: U07.1 COVID-19 (principal); J12.82 Pneumonia due to coronavirus disease 2019; J80 Acute respiratory distress syndrome; J15.9 Unspecified bacterial pneumonia; K50.90 Crohn's disease, unspecified, without complications; J93.9 Pneumothorax, unspecified; G40.909 Epilepsy, unspecified, not intractable, without status epilepticus; I73.00 Raynaud's syndrome without gangrene; G43.909 Migraine, unspecified, not intractable, without status migrainosus; I10 Essential (primary) hypertension; M32.9 Systemic lupus erythematosus, unspecified; M34.9 Systemic sclerosis, unspecified; E87.6 Hypokalemia; G89.29 Other chronic pain; R13.19 Other dysphagia; R33.9 Retention of urine, unspecified; R45.1 Restlessness and agitation; R73.9 Hyperglycemia, unspecified; T38.0X5A Adverse effect of glucocorticoids and synthetic analogues, initial encounter; J98.2 Interstitial emphysema; Z66 Do not resuscitate; Z78.1 Physical restraint status
CPT/HCPCS: 0240U; 36415; 36569; 71045; 71275; 80048; 80053; 82728; 82805; 82947; 83605; 83735; 83880; 84145; 84484; 85025; 85610; 85730; 86140; 86850; 86900; 86901; 87040; 93005; 94002; 94003; 94660; 94760; 99285; C9113; J0330; J0456; J1100; J1170; J1200; J1450; J1630; J1650; J1815; J1940; J2001; J2250; J2405; J2543; J2550; J2704; J2930; J3010; J3370; J3480; J7030; J7040; J7050; Q9967